=== PATIENT | female | born 1965 | race Caucasian/White ===

== ENCOUNTER 2021-09-24 16:04 | Observation (INO) | payer BC, MEDICARE ==
[2021-09-24] MEDS ORDERED: SODIUM CHLORIDE 0.9% 1,000 ML IV STA ×2 (17:41→19:52)
[2021-09-24] MEDS ORDERED: SODIUM CHLORIDE 0.9% 500 ML 500 ML IV STA (17:41)
[2021-09-24 18:38] LABS: Basophils % (A) 0 %; Eosinophils # (A) 0.1 k/uL (0-0.7); Eosinophils % (A) 2 %; HCT 40.6 % (34.0-46.0); HGB 12.8 gm/dL (11.4-16.0); Lymphocytes % (A) 15 %; MCH 30.7 pg (25.0-35.0); MCHC 31.5 g/dL (31.0-37.0); MCV 97.3 fL (80.0-100.0); Mean Platelet Volume 8.3; Monocytes # (A) 0.5 k/uL (0-1.0); Monocytes % (A) 7 %; Neutrophils # (A) 4.7 k/uL (1.3-7.7); Neutrophils % (A) 73 %; Platelet Count 224 k/uL (150-450); RBC 4.18 m/uL (3.80-5.40); RDW 13.2 % (11.5-15.5); WBC 6.5 k/uL (3.8-10.6)
[2021-09-24 18:50] LABS: Albumin 4.4 g/dL (3.5-5.0); Calcium 9.3 mg/dL (8.4-10.2); Magnesium 2.3 mg/dL (1.6-2.3); Potassium 3.6 mmol/L (3.5-5.1); Total Bilirubin 0.5 mg/dL (0.2-1.3); Total Protein 7.4 g/dL (6.3-8.2)
[2021-09-24 18:52] LABS: INR 0.9 (<1.2); Partial Thromboplastin Time 30.3 sec (22.0-30.0); Prothrombin Time 10.4 sec (9.0-12.0)
--- NOTE | 2021-09-24 19:04 | XR ---
EXAMINATION TYPE: XR chest 2V DATE OF EXAM: 09/24/2021 6:47 PM COMPARISON: None TECHNIQUE: XR chest 2V Frontal and lateral views of the chest. CLINICAL INDICATION:Female, 56 years old with history of syncope; FINDINGS: Lungs/Pleura: There is no evidence of pleural effusion, focal consolidation, or pneumothorax. Pulmonary vascularity: Unremarkable. Heart/mediastinum: Cardiomediastinal silhouette is unremarkable. There is mitral valve repair change s. Additionally there is loop recorder present. Single-lead device projects over the right atrium. Musculoskeletal: No acute osseous pathology. Other: Cholecystectomy clips are present. IMPRESSION: No acute cardiopulmonary disease/process.
[2021-09-24] MEDS ORDERED: HYDROmorphone 0.5 MG/0.5 ML SYRINGE IVP STA (19:37)
[2021-09-24] MEDS ORDERED: NALOXONE 0.4 MG/ML 1 ML VIAL IV PRN (19:52)
--- NOTE | 2021-09-24 20:19 | ED ---
General Adult HPI - General Chief complaint: Neuro Symptoms/Deficit Stated complaint: Syncope Time Seen by Provider: 09/24/21 17:25 Source: patient, RN notes reviewed, old records reviewed Mode of arrival: ambulatory Limitations: no limitations - History of Present Illness Initial comments: Patient is a 56-year-old female with past medical history remarkable for pseudoseizures, prior history of TBI, who recently was discharged from an outside hospital for treatment of a UTI no longer on antibiotics, who presents emergency department after being sent in from her PCP for a pseudoseizure as well as low blood pressure. Blood pressure was in the 90 systolic clear. She states she feels somewhat weak since discharge. Denies any fevers, chills, sick contacts, cough, chest pain, shortness of breath. Denies any abdominal pain, nausea, vomiting. States she feels like she does mention only has a pseudoseizure. States she is on Topamax 150 mg twice a day for that as well as Neurontin. Presents for further evaluation at this time. Has no other acute complaints at this time. - Related Data Allergies Allergy/AdvReac Type Severity Reaction Status Date / Time Unable to Assess Allergy Verified 09/24/21 16:15 Review of Systems ROS Statement: Those systems with pertinent positive or pertinent negative responses have been documented in the HPI. Review of Systems: CONST: Denies fever EYES: Denies blurry vision ENT: Denies nasal congestion C/V: Denies Chest pain RESP: Denies shortness of breath GI: Denies abdominal pain : Denies dysuria SKIN: Denies rash. MSK: Denies joint pain. NEURO: Denies headache ROS Other: All systems not noted in ROS Statement are negative. Past Medical History Past Medical History: Unable to Obtain History of Any Multi-Drug Resistant Organisms: None Reported Past Surgical History: Unable to Obtain Past Psychological History: No Psychological Hx Reported Smoking Status: Never smoker Past Alcohol Use History: None Reported Past Drug Use History: None Reported General Exam - General Exam Comments Initial Comments: General: Appears in no acute distress. HEAD: Normal with no signs of head trauma. EYES: PERRLA, EOMI, conjunctiva normal, no discharge. ENT: Hearing grossly intact, normal oropharynx. RESPIRATORY: Clear breath sounds bilaterally. No wheezes, rales, or rhonchi. C/V: Regular rate and rhythm. S1 and S2 auscultated, no edema, peripheral pulses 2+ and intact throughout ABD: Abd is soft, nontender, nondistended EXT: Normal range of motion, no obvious deformity SKIN: No rashes or lesions observed on exposed skin. NEURO: Alert and oriented x 4. Cranial nerves II-XII intact. No focal sensory or strength deficits. GCS of 15. NIH of 0. Limitations: no limitations Course Vital Signs 09/24/21 09/24/21 16:11 19:52 Temperature 98.4 F Pulse Rate 78 71 Respiratory 18 18 Rate Blood Pressure 128/50 106/66 O2 Sat by Pulse 98 100 Oximetry Medical Decision Making - Medical Decision Making The patient's presentation and physical exam, I'm concerned for suspected dehydration the patient. Cannot rule out infectious etiology at this time. We will obtain cardiac labs, chest x-ray. She will be given a fluid bolus. She was in agreement this plan. Chest x-ray showed no acute cardiopulmonary process. EKG showed an atrial paced rhythm which is chronic but otherwise no acute process. 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 Patient states she does have a history of mild CK D, with creatinine usually around 1.1. This is worse than her baseline. We have nothing for comparison. Troponin is undetectable. At this time, on reevaluation, she is feeling improved. He is endorsing generalized body pain is requesting a dose of Dilaudid which she'll be provided. I recommended admission for her RUBEN. She was in agreement this plan. Vital signs are within normal limits and stable. Urine is still pending at this time. She has no urinary complaints however. I spoke with the admitting team, Dr. Andino who is covering for Dr. paige. Patient was admitted in stable condition. We'll continue IV fluids. - Lab Data Result diagrams: 09/24/21 17:42 09/24/21 17:42 Lab Results 09/24/21 09/24/21 09/24/21 Range/Units 17:42 17:42 17:42 WBC 6.5 (3.8-10.6) k/uL RBC 4.18 (3.80-5.40) m/uL Hgb 12.8 (11.4-16.0) gm/dL Hct 40.6 (34.0-46.0) % MCV 97.3 (80.0-100.0) fL MCH 30.7 (25.0-35.0) pg MCHC 31.5 (31.0-37.0) g/dL RDW 13.2 (11.5-15.5) % Plt Count 224 (150-450) k/uL MPV 8.3 Neutrophils % 73 % Lymphocytes % 15 % Monocytes % 7 % Eosinophils % 2 % Basophils % 0 % Neutrophils # 4.7 (1.3-7.7) k/uL Lymphocytes # 1.0 (1.0-4.8) k/uL Monocytes # 0.5 (0-1.0) k/uL Eosinophils # 0.1 (0-0.7) k/uL Basophils # 0.0 (0-0.2) k/uL PT 10.4 (9.0-12.0) sec INR 0.9 (<1.2) APTT 30.3 H (22.0-30.0) sec Sodium 140 (137-145) mmol/L Potassium 3.6 (3.5-5.1) mmol/L Chloride 101 (98-107) mmol/L Carbon Dioxide 30 (22-30) mmol/L Anion Gap 9 mmol/L BUN 24 H (7-17) mg/dL Creatinine 1.71 H (0.52-1.04) mg/dL Est GFR (CKD-EPI)AfAm 38 (>60 ml/min/1.73 sqM) Est GFR (CKD-EPI)NonAf 33 (>60 ml/min/1.73 sqM) Glucose 92 (74-99) mg/dL Calcium 9.3 (8.4-10.2) mg/dL Magnesium 2.3 (1.6-2.3) mg/dL Total Bilirubin 0.5 (0.2-1.3) mg/dL AST 23 (14-36) U/L ALT 15 (4-34) U/L Alkaline Phosphatase 79 (38-126) U/L Troponin I (0.000-0.034) ng/mL Total Protein 7.4 (6.3-8.2) g/dL Albumin 4.4 (3.5-5.0) g/dL 09/24/21 Range/Units 17:42 WBC (3.8-10.6) k/uL RBC (3.80-5.40) m/uL Hgb (11.4-16.0) gm/dL Hct (34.0-46.0) % MCV (80.0-100.0) fL MCH (25.0-35.0) pg MCHC (31.0-37.0) g/dL RDW (11.5-15.5) % Plt Count (150-450) k/uL MPV Neutrophils % % Lymphocytes % % Monocytes % % Eosinophils % % Basophils % % Neutrophils # (1.3-7.7) k/uL Lymphocytes # (1.0-4.8) k/uL Monocytes # (0-1.0) k/uL Eosinophils # (0-0.7) k/uL Basophils # (0-0.2) k/uL PT (9.0-12.0) sec INR (<1.2) APTT (22.0-30.0) sec Sodium (137-145) mmol/L Potassium (3.5-5.1) mmol/L Chloride (98-107) mmol/L Carbon Dioxide (22-30) mmol/L Anion Gap mmol/L BUN (7-17) mg/dL Creatinine (0.52-1.04) mg/dL Est GFR (CKD-EPI)AfAm (>60 ml/min/1.73 sqM) Est GFR (CKD-EPI)NonAf (>60 ml/min/1.73 sqM) Glucose (74-99) mg/dL Calcium (8.4-10.2) mg/dL Magnesium (1.6-2.3) mg/dL Total Bilirubin (0.2-1.3) mg/dL AST (14-36) U/L ALT (4-34) U/L Alkaline Phosphatase (38-126) U/L Troponin I <0.012 (0.000-0.034) ng/mL Total Protein (6.3-8.2) g/dL Albumin (3.5-5.0) g/dL - EKG Data -: EKG Interpreted by Me EKG Comments: 12-lead Electrocardiogram Interpretation Note EKG was reviewed and interpreted by myself. 12-lead ECG performed at 1624 is interpreted by me as revealing atrial paced rhythm at a rate of 70 beats per min [id number]. [place] is normal. OH Intervals 167 ms, QRS duration is 84 ms, QTc is 440 ms.. There were no ST or T wave abnormalities to suggest myocardial ischemia or injury. R wave progression across the precordium was satisfactory. By my interpretation this EKG is non-diagnostic for acute ischemia. Disposition Clinical Impression: RUBEN (acute kidney injury), Dehydration Disposition: ADMITTED IP TO THIS HOSP Condition: Stable Referrals: Franklin Hassan MD [Primary Care Provider] - 1-2 days Time of Disposition: 19:45
[2021-09-24] MEDS: TOPIRAMATE 100 MG TAB PO SCH (22:34)
[2021-09-24 22:51] LABS: Glucose,Whole Blood 87 mg/dL (75-99)
[2021-09-24] MEDS ORDERED: LORazepam 2 MG/ML INJ IM STA (23:04)
[2021-09-24] MEDS ORDERED: LORazepam 2 MG/ML INJ IV STA (23:04)
--- NOTE | 2021-09-24 23:37 | P.EN ---
A team note Activated for seizure. Arrived at the scene at 2300. Discussed the case with the RN and reviewed the chart. The patient with a history of pseudoseizures and TBI was sent to the emergency room by her PCP due to hypotension and pseudoseizures. The patient was admitted for dehydration and acute kidney injury. Shortly after arrival on the floor, the patient began having what appeared to be tonic clonic seizures. She was given 2 mg of IV Ativan without relief. Upon arrival at the scene, the patient was initially noted to be shaking diffusely. As I approached the patient, she made eye contact and answered some questions as she continued to have shaking of all of her limbs. She then quickly (within 1 to 2 minutes) regained consciousness and sat up in bed and began answering questions appropriately. She repeatedly asked for IV Benadryl to raise her blood pressure under control her abdominal pain. 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 She reported multiple complaints including abdominal pain, migraine, diffuse body aches, chest discomfort, shortness of breath. Vital signs were reviewed with BP 104/65, pulse 92, SpO2 100% on room air. Physical examination after patient began answering questions appropriately: General: Nontoxic, in no acute distress, appears stated age, obese HEENT: NC/AT, anicteric sclerae, moist conjunctiva, no lid-lag, PERRLA Cardiovascular: S1/S2 wnl, no murmurs, rubs, or gallops Lungs: Clear to auscultation, normal respiratory effort, no accessory muscle use Abdominal: Soft, non-tender, non-distended, no guarding, rebound, or rigidity Skin: Warm, dry Extremities: No edema or contractures Psychiatric: Alert and oriented to person, place and time, appropriate affect Neuro: CN II-XII grossly intact, Strength 5/5 in all 4 extremities, Speech intact, Sensation to light touch grossly intact throughout Assessment/plan Suspected pseudoseizure -Continue with home antiepileptics Acute kidney injury -Management as per primary team
[2021-09-25 04:45] LABS: Appearance,Urine Clear (Clear); Bilirubin,Urine Negative (Negative); Blood,Urine Negative (Negative); Color,Urine Yellow; Glucose,Urine (UA) Negative (Negative); Ketones,Urine Negative (Negative); Leukocyte Esterase,Urine Negative (Negative); Nitrite,Urine Negative (Negative); Protein,Urine Negative (Negative); Specific Gravity,Urine 1.008 (1.001-1.035); Urobilinogen,Urine <2.0 mg/dL (<2.0)
[2021-09-25] MEDS: TOPIRAMATE 100 MG TAB PO SCH (08:31)
[2021-09-25 08:54] LABS: Basophils # (A) 0.02 X 10*3/uL (0.00-0.10); Basophils % (A) 0.4 %; Eosinophils # (A) 0.12 X 10*3/uL (0.04-0.35); Eosinophils % (A) 2.6 %; HCT 37.4 % (37.2-46.3); Immature Grans, Automated 0.4 %; Lymphocytes % (A) 17.2 %; MCH 30.8 pg (27.0-32.0); MCHC 32.1 g/dL (32.0-37.0); MCV 96.1 fL (80.0-97.0); Mean Platelet Volume 10.6 fL (9.5-12.2); Monocytes # (A) 0.55 X 10*3/uL (0.20-1.00); Monocytes % (A) 11.8 %; NRBC Per 100 WBC 0 /100 WBCS (0.0-0.0); Neutrophils # (A) 3.15 X 10*3/uL (1.80-7.70); Neutrophils % (A) 67.6 %; Platelet Count 182 X 10*3/uL (140-440); RBC 3.89 X 10*6/uL (4.10-5.20); RDW 13.1 % (11.5-14.5); WBC 4.66 X 10*3/uL (4.50-10.00)
[2021-09-25] MEDS ORDERED: TOPIRAMATE 25 MG TAB PO SCH (09:15)
[2021-09-25 09:52] LABS: African American GFR (CKD) 58.1 (60.0-200.0); Anion Gap 11.9 mmol/L (10.00-18.00); BUN/Creat Ratio 15.5 Ratio (12.00-20.00); Blood Urea Nitrogen 18.6 mg/dL (9.0-27.0); Calcium 8.8 mg/dL (8.7-10.3); Carbon Dioxide 23.1 mmol/L (20.0-27.5); Non-African American GFR(CKD) 50.1 (60.0-200.0)
[2021-09-25] MEDS ORDERED: diphenhydrAMINE 50 MG CAP PO PRN (10:22)
[2021-09-25] MEDS ORDERED: tiZANidine 4 MG TAB PO PRN (10:22)
[2021-09-25] MEDS ORDERED: GABAPENTIN 300 MG CAP PO PRN (10:22)
[2021-09-25] MEDS ORDERED: Ubrogepant [Ubrelvy] 100 MG Tablet PO PRN (10:22)
[2021-09-25] MEDS ORDERED: CHOLESTYRAMINE (WITH SUGAR) 4 GM PACKET PO PRN (10:22)
[2021-09-25] MEDS ORDERED: HYDROcodone/APAP 5-325MG 1 EACH TAB PO PRN (10:22)
[2021-09-25] MEDS ORDERED: DICLOFENAC SODIUM GEL 100 GM TUBE TOPICAL PRN (10:22)
--- NOTE | 2021-09-25 10:23 | P.CNNES ---
History of Present Illness Consult date: 09/25/21 Requesting physician: Doris Andino Reason for Consult: seizure-activity History of Present Illness: This is a 56-year-old woman with history of traumatic brain injury (2007), pseudoseizures since TBI, migraine, lupus, pyoderma gangrenosum, chronic low back pain s/p 3 surgeries, peripheral neuropathy who presented to our emergency department on 09/24/2021 by her primary care physician for episode of seizure- like activity as well as low blood pressure according to the ED team. It seems that her blood pressure was in the 90s systolic. Patient was recently hospitalized at outside facility for UTI. Patient is on Topamax 150 mg 1 tablet twice a day. Patient is also on gabapentin. Yesterday and "A-team" seeing the patient at 2300 because of the seizure on the floor and appeared to have tonic-clonic seizure. She was given 2 mg Ativan without relief. Per the notes upon the physician on arrival to the scene pat ganeshnt was initially noted to be as shaking diffusely she made eye contact and answers some questions and continue to have shaking of all limbs then within 1-2 minutes to regain consciousness and sat up in bed and began answering questions appropriately. Of note the patient moved from a [facility] to the [place] in April 2021 and was follow-up with a neurologist in [place] but in the process of seeing a neurologist in [place], [place]. According to patient she's been having seizures since 2007 and the she describes him as prior to the episode she would have an aura of having her vision feels its become noted tunnel and should have ear ringing and she would shake and sometimes she'll lose consciousness and sometimes not and sometimes she'll have urinary incontinence and sometimes not. She denies of any tongue bite or bowel incontinence. She says that the these episodes vary in duration as well as frequency but she is becoming more frequent in the last 1 week. She said that she had extensive work up in the past and she was evaluated at [facility] and she had the long-term EEG as well as had multiple EEGs by her neurologist and everything got pointed at dad to the pseudoseizures. She also had multiple imaging in the past and there are negative. She is currently on Topamax 150 mg 1 tablet twice a day. She was on Keppra in the past as well as Depakote but has side effects. Some other workup in the hospital during this hospital visit consisted of: Patient is afebrile. Her blood pressure got as low as 81/57. CBC with differential is unremarkable Chemistry panel is the creatinine is 1.71 and that a BUN is 24 otherwise rest of chemistry panel is unremarkable Urinalysis is negative for urinary tract infection Review of Systems Review of system: The 12 point system was reviewed and apparent positive and negative per HPI. Past Medical History Past Medical History: Unable to Obtain Additional Past Medical History / Comment(s): Lupus, Pyoderma Gangrenosum History of Any Multi-Drug Resistant Organisms: None Reported Past Surgical History: Back Surgery, Breast Surgery, Section, Cholecystectomy, Hysterectomy Past Psychological History: No Psychological Hx Reported Smoking Status: Never smoker Past Alcohol Use History: None Reported Past Drug Use History: None Reported Medications and Allergies Home Medications Medication Instructions Recorded Confirmed Type Apixaban [Eliquis] 5 mg PO BID 09/24/21 09/24/21 History Atorvastatin [Lipitor] 40 mg PO HS 09/24/21 09/24/21 History Bumetanide [BUMEX] 2 mg PO BID 09/24/21 09/24/21 History Cetirizine HCl 10 mg PO DAILY 09/24/21 09/24/21 History Cholestyramine (with Sugar) 4 gm PO DAILY PRN 09/24/21 09/24/21 History [Cholestyramine Packet] Diclofenac Sodium Gel [Voltaren 1 applic TOPICAL QID PRN 09/24/21 09/24/21 History Gel] Diphenhydramine 50mg/Ml Vial 50 mg INJ Q6H PRN 09/24/21 09/24/21 History Doxycycline Hyclate 100 mg PO BID 09/24/21 09/24/21 History Fludrocortisone [Florinef] 0.1 mg PO DAILY 09/24/21 09/24/21 History Gabapentin 300 - 600 mg PO TID PRN 09/24/21 09/24/21 History HYDROcodone/APAP 5-325MG [Reagan 1 tab PO Q8H PRN 09/24/21 09/24/21 History 5-325] Pantoprazole [Protonix] 40 mg PO BID 09/24/21 09/24/21 History Potassium Chloride ER [K-Dur 20] 60 meq PO BID 09/24/21 09/24/21 History Sertraline [Zoloft] 200 mg PO DAILY 09/24/21 09/24/21 History Sucralfate 1 gm PO Q6H 09/24/21 09/24/21 History Topiramate [Topamax] 150 mg PO BID 09/24/21 09/24/21 History Ubrogepant [Ubrelvy] 100 mg PO DIRECTED PRN 09/24/21 09/24/21 History busPIRone HCl [Buspar] 10 mg PO BID 09/24/21 09/24/21 History diphenhydrAMINE [Benadryl] 50 mg PO Q6H PRN 09/24/21 09/24/21 History rOPINIRole HCL [Requip] 2 mg PO HS 09/24/21 09/24/21 History tiZANidine [Zanaflex] 2 mg PO Q6H PRN 09/24/21 09/24/21 History Allergies Allergy/AdvReac Type Severity Reaction Status Date / Time Penicillins Allergy Severe Anaphylaxis Verified 09/24/21 20:30 vancomycin Allergy Severe Swelling Verified 09/24/21 20:30 in lips latex Allergy Verified 09/24/21 20:30 morphine Allergy Verified 09/24/21 20:30 prochlorperazine Allergy Verified 09/24/21 20:30 [From Compazine] metoclopramide [From Reglan] AdvReac Verified 09/24/21 20:30 Physical Examination - Vital Signs Vital Signs: Vital Signs Temp Pulse Pulse Resp BP BP Pulse Ox 09/25/21 08:42 97.9 F 68 12 124/77 100 09/25/21 00:14 98.1 F 70 16 81/57 98 09/24/21 21:50 97.9 F 73 18 95/63 98 09/24/21 20:28 71 18 94/67 95 09/24/21 19:52 71 18 106/66 100 09/24/21 16:11 98.4 F 78 18 128/50 98 Intake and Output 09/24/21 09/25/21 09/25/21 22:59 06:59 14:59 Other: # Voids 1 1 Weight 99.79 kg 99.79 kg GENERAL: The patient is lying in bed and is not in acute distress. CHEST: The heart rate is regular rate rhythm. No murmurs to auscultation. LUNG: Clear to auscultation bilaterally no wheezing noted throughout. Not labored breathing. ABDOMEN/GI: Bowel sounds present in all 4 quadrants. No tenderness to palpation throughout. NEUROLOGICAL: Higher mental function: The patient is awake, alert, oriented to self, place and time. Slightly mildly slow in responding. Patient is following commands. No aphasia and no neglect. Cranial nerves: The pupils are round, equal and reactive to light and accommodation. Visual pierce are full to confrontation throughout. Extraocular movement is intact no nystagmus is noted. Facial sensation is normal to touch throughout. The facial strength is normal throughout. Hearing is normal bila terally to hand rub. Tongue is midline and moved [id number] without any difficulty. No dysarthria is noted. Shoulder shrug is normal bilaterally. Motor: The strength is 5 over 5 throughout. Normal tone and bulk. Cerebellum: Normal finger to nose bilaterally. Sensation: Sensation is normal to touch throughout. Reflexes (right/left): 1+ throughout. Plantars are downgoing bilaterally. Results - Laboratory Findings CBC and BMP: 09/25/21 06:01 09/25/21 06:01 Abnormal Lab Findings: Abnormal Labs 09/24/21 09/24/21 17:42 17:42 APTT 30.3 H BUN 24 H Creatinine 1.71 H Assessment and Plan Assessment: Breakthrough seizures and the seizures are reported to be nonepileptic (has history of pseudoseizure/non-epileptic seizure) History of pseudo-seizures/nonepileptic seizures since TBI (had extensive testing as outpatient and was evaluated at [facility] and had multiple EEGs and imaging as outpatient and according to patient was told had pseudoseizures) History of traumatic brain injury in 2007 Migraine Recent urinary tract infection History of lupus History of pyoderma gangrenosum History of chronic back pain status post 3 surgery Peripheral neuropathy Plan: Patient refused CT of the head or any imaging to the brain as well as a routine EEG. She said that she had extensive testing in the past and everything is been negative. I recommend consideration of ambulatory or a repeat EMU (epilepsy monitoring unit) as outpatient if patient has not to evaluate if no true epileptic episode s. On Topamax 150mg 1 tab bid. I will increase to 175mg bid. She was notified to assess if any help as outpatient and in a week can go up to 200mg bid that might help her episodes. Continue neuro checks On seizure precautions and seizure pads We'll defer the rest of the medical management to the primary team Per the [place] and [facility] the patient the was to avoid driving for 6 month until no further seizures, avoid heights, avoid the swimming unassisted and using heavy machinery. Patient need to follow-up with a neurologist as outpatient within 1-2 weeks. The plan is discussed with patient and her nurse. Thank you for the consultation. There is no further neurological work-up. Patient is clear for discharge. Lefty Zhu M.D. Neuro-Hospitalist Time with Patient: Greater than 30
[2021-09-25] MEDS ORDERED: LORATADINE 10 MG TAB PO SCH (10:30)
[2021-09-25] MEDS ORDERED: SUCRALFATE 1 GM TAB PO SCH (10:30)
[2021-09-25] MEDS ORDERED: FLUDROCORTISONE 0.1 MG TAB PO SCH (10:30)
[2021-09-25] MEDS ORDERED: busPIRone HCl 10 MG TAB PO SCH (10:30)
[2021-09-25] MEDS ORDERED: PANTOPRAZOLE 40 MG TABLET PO SCH (10:30)
[2021-09-25] MEDS ORDERED: TOPIRAMATE 100 MG TAB PO SCH (10:30)
[2021-09-25] MEDS ORDERED: SERTRALINE 100 MG TAB PO SCH (10:30)
--- NOTE | 2021-09-25 13:01 | US ---
EXAMINATION TYPE: US carotid duplex BILAT DATE OF EXAM: 09/25/2021 COMPARISON: NONE CLINICAL HISTORY: stroke. CVA. Exam done portable EXAM MEASUREMENTS: RIGHT: Peak Systolic Velocity (PSV) cm/sec ----- Right CCA: 60.4 ----- Right ICA: 64.2 ----- Right ECA: 97.5 ICA/CCA ratio: 1.1 RIGHT: End Diastole cm/sec ----- Right CCA: 18.2 ----- Right ICA: 30.3 ----- Right ECA: 16.2 LEFT: Peak Systolic Velocity (PSV) cm/sec ----- Left CCA: 60.4 ----- Left ICA: 67.2 ----- Left ECA: 90.5 ICA/CCA ratio: 1.1 LEFT: End Diastole cm/sec ----- Left CCA: 17.4 ----- Left ICA: 24.8 ----- Left ECA: 10.6 VERTEBRALS (direction of flow): Right Vertebral: Antegrade Left Vertebral: Antegrade Rhythm: Normal No significant stenosis Grayscale images show no significant focal plaque at carotid bulb level. IMPRESSION: No hemodynamically significant stenosis identified in either internal carotid artery. Criteria for Assigning % of Stenosis / Diameter reduction (Estimation based on the indirect measurements of the internal carotid artery velocities (ICA PSV). 1. Normal (no stenosis)=ICA PSV < 125 cm/s: ratio < 2.0: ICA EDV<40 cm/s. 2. Less than 50% stenosis=ICA PSV < 125 cm/s: ratio < 2.0: ICA EDV<40 cm/s. 3. 50 to 69% stenosis=ICA PSV of 125 to 230 cm/s: ration 2.0 ? 4.0: ICA EDV 40-100 cm/s. 4. Greater than 70% stenosis to near occlusion= ICA PSV > 230 cm/s: ratio > 4.0: ICA EDV > 100 cm/s. 5. Near occlusion= ICA PSV velocities may be low or undetectable: variable ratio and ICA EDV. 6. Total occlusion=unable to detect flow.
[2021-09-25 13:34] VITALS: BP 116/75; PULSE 70; RESP 14; TEMP 98.6
[2021-09-25] MEDS ORDERED: ATORVASTATIN 40 MG TAB PO SCH (21:00)
--- NOTE | 2021-09-26 20:13 | P.HPIM ---
History of Present Illness H&P Date: 09/25/21 Chief Complaint: Syncope 56-year-old female with past medical history remarkable for pseudoseizures, prior history of TBI, who recently was discharged from an outside hospital for treatment of a UTI no longer on antibiotics, who presents emergency department after being sent in from her PCP for a pseudoseizure as well as low blood pressure. Blood pressure was in the 90 systolic clear. She states she feels somewhat weak since discharge. Denies any fevers, chills, sick contacts, cough, chest pain, shortness of breath. Denies any abdominal pain, nausea, vomiting. States she feels like she does mention only has a pseudoseizure. States she is on Topamax 150 mg twice a day for that as well as Neurontin. Presents for further evaluation at this time. Has no other acute complaints at this time. According to patient she's been having seizures since 2007 and the she describes him as prior to the episode she would have an aura of having her vision feels its become noted tunnel and should have ear ringing and she would shake and sometimes she'll lose consciousness and sometimes not and sometimes she'll have urinary incontinence and sometimes not. She denies of any tongue bite or bowel incontinence. She says that the these episodes vary in duration as well as frequency but she is becoming more frequent in the last 1 week. She said that she had extensive work up in the past and she was evaluated at [facility] and she had the long-term EEG as well as had multiple EEGs by her neurologist and everything got pointed at dad to the pseudoseizures. She also had multiple imaging in the past and there are negative. She is currently on Topamax 150 mg 1 tablet twice a day. She was on Keppra in the past as well as Depakote but has side effects. Some other workup in the hospital during this hospital visit consisted of: Patient is afebrile. Her blood pressure got as low as 81/57. CBC with differential is unremarkable Chemistry panel is the creatinine is 1.71 and that a BUN is 24 otherwise rest of chemistry panel is unremarkable Urinalysis is negative for urinary tract infection Review of Systems REVIEW OF SYSTEMS: CONSTITUTIONAL: No fever, no malaise, no fatigue. HEENT: No recent visual problems or hearing problems. Denied any sore throat. CARDIOVASCULAR: No chest pain, orthopnea, PND, no palpitations, no syncope. PULMONARY: No shortness of breath, no cough, no hemoptysis. GASTROINTESTINAL: No diarrhea, no nausea, no vomiting, no abdominal pain. NEUROLOGICAL: No headaches, no weakness, no numbness. HEMATOLOGICAL: Denies any bleeding or petechiae. GENITOURINARY: Denies any burning micturition, frequency, or urgency. MUSCULOSKELETAL/RHEUMATOLOGICAL: Denies any joint pain, swelling, or any muscle pain. ENDOCRINE: Denies any polyuria or polydipsia. The rest of the 14-point review of systems is negative. Past Medical History Past Medical History: Unable to Obtain Additional Past Medical History / Comment(s): Lupus, Pyoderma Gangrenosum History of Any Multi-Drug Resistant Organisms: None Reported Past Surgical History: Back Surgery, Breast Surgery, Section, Cholecystectomy, Hysterectomy Past Psychological History: No Psychological Hx Reported Smoking Status: Never smoker Past Alcohol Use History: None Reported Past Drug Use History: None Reported Medications and Allergies Home Medications Medication Instructions Recorded Confirmed Type Apixaban [Eliquis] 5 mg PO BID 09/24/21 09/24/21 History Atorvastatin [Lipitor] 40 mg PO HS 09/24/21 09/24/21 History Bumetanide [BUMEX] 2 mg PO BID 09/24/21 09/24/21 History Cetirizine HCl 10 mg PO DAILY 09/24/21 09/24/21 History Cholestyramine (with Sugar) 4 gm PO DAILY PRN 09/24/21 09/24/21 History [Cholestyramine Packet] Diclofenac Sodium Gel [Voltaren 1 applic TOPICAL QID PRN 09/24/21 09/24/21 History Gel] Diphenhydramine 50mg/Ml Vial 50 mg INJ Q6H PRN 09/24/21 09/24/21 History Doxycycline Hyclate 100 mg PO BID 09/24/21 09/24/21 History Fludrocortisone [Florinef] 0.1 mg PO DAILY 09/24/21 09/24/21 History Gabapentin 300 - 600 mg PO TID PRN 09/24/21 09/24/21 History HYDROcodone/APAP 5-325MG [[place] 1 tab PO Q8H PRN 09/24/21 09/24/21 History 5-325] Pantoprazole [Protonix] 40 mg PO BID 09/24/21 09/24/21 History Potassium Chloride ER [K-Dur 20] 60 meq PO BID 09/24/21 09/24/21 History Sertraline [Zoloft] 200 mg PO DAILY 09/24/21 09/24/21 History Sucralfate 1 gm PO Q6H 09/24/21 09/24/21 History Ubrogepant [Ubrelvy] 100 mg PO DIRECTED PRN 09/24/21 09/24/21 History busPIRone HCl [Buspar] 10 mg PO BID 09/24/21 09/24/21 History diphenhydrAMINE [Benadryl] 50 mg PO Q6H PRN 09/24/21 09/24/21 History rOPINIRole HCL [Requip] 2 mg PO HS 09/24/21 09/24/21 History tiZANidine [Zanaflex] 2 mg PO Q6H PRN 09/24/21 09/24/21 History Topiramate [Topamax] 25 mg PO BID 30 Days #60 tab 09/25/21 Rx Topiramate [Topamax] 150 mg PO BID 30 Days #60 tab 09/25/21 Rx Allergies Allergy/AdvReac Type Severity Reaction Status Date / Time Penicillins Allergy Severe Anaphylaxis Verified 09/24/21 20:30 vancomycin Allergy Severe Swelling Verified 09/24/21 20:30 in lips latex Allergy Verified 09/24/21 20:30 morphine Allergy Verified 09/24/21 20:30 prochlorperazine Allergy Verified 09/24/21 20:30 [From Compazine] metoclopramide [From Reglan] AdvReac Verified 09/24/21 20:30 Physical Exam Vitals: Vital Signs Temp Pulse Pulse Resp BP BP Pulse Ox 09/25/21 08:42 97.9 F 68 12 124/77 100 09/25/21 00:14 98.1 F 70 16 81/57 98 09/24/21 21:50 97.9 F 73 18 95/63 98 09/24/21 20:28 71 18 94/67 95 09/24/21 19:52 71 18 106/66 100 09/24/21 16:11 98.4 F 78 18 128/50 98 Intake and Output 09/24/21 09/25/21 09/25/21 22:59 06:59 14:59 Intake Total 118 Balance 118 Intake: Oral 118 Other: Voiding Method Toilet # Voids 1 1 Weight 99.79 kg 99.79 kg PHYSICAL EXAMINATION: GENERAL: The patient is alert and oriented x3, not in any acute distress. Well developed, well nourished. HEENT: Pupils are round and equally reacting to light. EOMI. No scleral icterus. No conjunctival pallor. Normocephalic, atraumatic. No pharyngeal erythema. No thyromegaly. CARDIOVASCULAR: S1 and S2 present. No murmurs, rubs, or gallops. PULMONARY: Chest is clear to auscultation, no wheezing or crackles. ABDOMEN: Soft, nontender, nondistended, normoactive bowel sounds. No palpable organomegaly. MUSCULOSKELETAL: No joint swelling or deformity. EXTREMITIES: No cyanosis, clubbing, or pedal edema. NEUROLOGICAL: Gross neurological examination did not reveal any focal deficits. SKIN: No rashes. Results CBC & Chem 7: 09/25/21 06:01 09/25/21 06:01 Labs: Abnormal Lab Results - Last 24 Hours (Table) 09/24/21 09/24/21 09/25/21 Range/Units 17:42 17:42 06:01 RBC 3.89 L (4.10-5.20) X 10*6/uL Lymphocytes # 0.80 L (0.90-5.00) X 10*3/uL APTT 30.3 H (22.0-30.0) sec BUN 24 H (7-17) mg/dL Creatinine 1.71 H (0.52-1.04) mg/dL Est GFR (CKD-EPI)AfAm (60.0-200.0) Est GFR (CKD-EPI)NonAf (60.0-200.0) 09/25/21 Range/Units 06:01 RBC (4.10-5.20) X 10*6/uL Lymphocytes # (0.90-5.00) X 10*3/uL APTT (22.0-30.0) sec BUN (7-17) mg/dL Creatinine (0.52-1.04) mg/dL Est GFR (CKD-EPI)AfAm 58.1 L (60.0-200.0) Est GFR (CKD-EPI)NonAf 50.1 L (60.0-200.0) Assessment and Plan Assessment: 1. Breakthrough seizures; patient does have history of pseudoseizures 2. History of pseudoseizures since TBI; had extensive testing as outpatient and was evaluated at [facility] and had multiple EEGs and imaging as outpatient and according to patient was told had pseudoseizures) History of traumatic brain injury in 2007 3. Migraine; stable 4. Recent urinary tract infection; clinically resolved 5. History of lupus 6. History of pyoderma gangrenosum 7. History of chronic back pain status post 3 surgery 8. Peripheral neuropathy Patient refused CT of the head or any imaging to the brain as well as a routine EEG. She said that she had extensive testing in the past and everything is been negative. I recommend consideration of ambulatory or a repeat EMU (epilepsy monitoring unit) as outpatient if patient has not to evaluate if no true epileptic episodes. On Topamax 150mg 1 tab bid. I will increase to 175mg bid. She was notified to assess if any help as outpatient and in a week can go up to 200mg bid that might help her episodes. Continue neuro checks On seizure precautions and seizure pads We'll defer the rest of the medical management to the primary team Per the [place] and [facility] the patient the was to avoid driving for 6 month until no further seizures, avoid heights, avoid the swimming unassisted and using heavy machinery. Patient need to follow-up with a neurologist as outpatient within 1-2 weeks.
--- NOTE | 2021-09-26 20:14 | P.DS ---
Providers Date of admission: 09/24/21 19:52 Expected date of discharge: 09/25/21 Attending physician: Doris Andino MD Consults: 09/24/21 23:36 Consult Physician Routine Consulting Provider: Lefty Zhu Consult Reason/Comments: Seizure Activity Do you want consulting provider notified?: Yes, Notify in am [facility]: 56-year-old female with past medical history remarkable for pseudoseizures, prior history of TBI, who recently was discharged from an outside hospital for treatment of a UTI no longer on antibiotics, who presents emergency department after being sent in from her PCP for a pseudoseizure as well as low blood pressure. Blood pressure was in the 90 systolic clear. She states she feels somewhat weak since discharge. Denies any fevers, chills, sick contacts, cough, chest pain, shortness of breath. Denies any abdominal pain, nausea, vomiting. States she feels like she does mention only has a pseudoseizure. States she is on Topamax 150 mg twice a day for that as well as Neurontin. Presents for further evaluation at this time. Has no other acute complaints at this time. According to patient she's been having seizures since 2007 and the she describes him as prior to the episode she would have an aura of having her vision feels its become noted tunnel and should have ear ringing and she would shake and s ometimes she'll lose consciousness and sometimes not and sometimes she'll have urinary incontinence and sometimes not. She denies of any tongue bite or bowel incontinence. She says that the these episodes vary in duration as well as frequency but she is becoming more frequent in the last 1 week. She said that she had extensive work up in the past and she was evaluated at [facility] and she had the long-term EEG as well as had multiple EEGs by her neurologist and everything got pointed at dad to the pseudoseizures. She also had multiple imaging in the past and there are negative. She is currently on Topamax 150 mg 1 tablet twice a day. She was on Keppra in the past as well as Depakote but has side effects. Some other workup in the hospital during this hospital visit consisted of: Patient is afebrile. Her blood pressure got as low as 81/57. CBC with differential is unremarkable Chemistry panel is the creatinine is 1.71 and that a BUN is 24 otherwise rest of chemistry panel is unremarkable Urinalysis is negative for urinary tract infection 1. Breakthrough seizures; patient does have history of pseudoseizures 2. History of pseudoseizures since TBI; had extensive testing as outpatient and was evaluated at [facility] and had multiple EEGs and imaging as outpatient and according to patient was told had pseudoseizures) History of traumatic brain injury in 2007 3. Migraine; stable 4. Recent urinary tract infection; clinically resolved 5. History of lupus 6. History of pyoderma gangrenosum 7. History of chronic back pain status post 3 surgery 8. Peripheral neuropathy Patient refused CT of the head or any imaging to the brain as well as a routine EEG. She said that she had extensive testing in the past and everything is been negative. I recommend consideration of ambulatory or a repeat EMU (epilepsy monitoring unit) as outpatient if patient has not to evaluate if no true epileptic episodes. On Topamax 150mg 1 tab bid. I will increase to 175mg bid. She was notified to assess if any help as outpatient and in a week can go up to 200mg bid that might help her episodes. Continue neuro checks On seizure precautions and seizure pads We'll defer the rest of the medical management to the primary team Per the [place] and [facility] the patient the was to avoid driving for 6 month until no further seizures, avoid heights, avoid the swimming unassisted and using heavy machinery. Patient need to follow-up with a neurologist as outpatient within 1-2 weeks. Patient Condition at Discharge: Stable Plan - Discharge Summary New Discharge Prescriptions: New Topiramate [Topamax] 25 mg PO BID 30 Days #60 tab Topiramate [Topamax] 150 mg PO BID 30 Days #60 tab Continue tiZANidine [Zanaflex] 2 mg PO Q6H PRN PRN Reason: Muscle Pain Sucralfate 1 gm PO Q6H Potassium Chloride ER [K-Dur 20] 60 meq PO BID HYDROcodone/APAP 5-325MG [[place] 5-325] 1 tab PO Q8H PRN PRN Reason: Pain Fludrocortisone [Florinef] 0.1 mg PO DAILY Doxycycline Hyclate 100 mg PO BID Diclofenac Sodium Gel [Voltaren Gel] 1 applic TOPICAL QID PRN PRN Reason: Pain Cetirizine HCl 10 mg PO DAILY diphenhydrAMINE [Benadryl] 50 mg PO Q6H PRN PRN Reason: Migraine Headache rOPINIRole HCL [Requip] 2 mg PO HS Sertraline [Zoloft] 200 mg PO DAILY Pantoprazole [Protonix] 40 mg PO BID Gabapentin 300 - 600 mg PO TID PRN PRN Reason: nerve pain Apixaban [Eliquis] 5 mg PO BID Diphenhydramine 50mg/Ml Vial 50 mg INJ Q6H PRN PRN Reason: Migraine Headache Cholestyramine (with Sugar) [Cholestyramine Packet] 4 gm PO DAILY PRN PRN Reason: Diarrhea busPIRone HCl [Buspar] 10 mg PO BID Bumetanide [BUMEX] 2 mg PO BID Atorvastatin [Lipitor] 40 mg PO HS Ubrogepant [Ubrelvy] 100 mg PO DIRECTED PRN PRN Reason: Migraine Headache Discontinued Topiramate [Topamax] 150 mg PO BID Discharge Medication List Apixaban [Eliquis] 5 mg PO BID 09/24/21 [History] Atorvastatin [Lipitor] 40 mg PO HS 09/24/21 [History] Bumetanide [BUMEX] 2 mg PO BID 09/24/21 [History] Cetirizine HCl 10 mg PO DAILY 09/24/21 [History] Cholestyramine (with Sugar) [Cholestyramine Packet] 4 gm PO DAILY PRN 09/24/21 [History] Diclofenac Sodium Gel [Voltaren Gel] 1 applic TOPICAL QID PRN 09/24/21 [History] Diphenhydramine 50mg/Ml Vial 50 mg INJ Q6H PRN 09/24/21 [History] Doxycycline Hyclate 100 mg PO BID 09/24/21 [History] Fludrocortisone [Florinef] 0.1 mg PO DAILY 09/24/21 [History] Gabapentin 300 - 600 mg PO TID PRN 09/24/21 [History] HYDROcodone/APAP 5-325MG [[place] 5-325] 1 tab PO Q8H PRN 09/24/21 [History] Pantoprazole [Protonix] 40 mg PO BID 09/24/21 [History] Potassium Chloride ER [K-Dur 20] 60 meq PO BID 09/24/21 [History] Sertraline [Zoloft] 200 mg PO DAILY 09/24/21 [History] Sucralfate 1 gm PO Q6H 09/24/21 [History] Ubrogepant [Ubrelvy] 100 mg PO DIRECTED PRN 09/24/21 [History] busPIRone HCl [Buspar] 10 mg PO BID 09/24/21 [History] diphenhydrAMINE [Benadryl] 50 mg PO Q6H PRN 09/24/21 [History] rOPINIRole HCL [Requip] 2 mg PO HS 09/24/21 [History] tiZANidine [Zanaflex] 2 mg PO Q6H PRN 09/24/21 [History] Topiramate [Topamax] 25 mg PO BID 30 Days #60 tab 09/25/21 [Rx] Topiramate [Topamax] 150 mg PO BID 30 Days #60 tab 09/25/21 [Rx] Follow up Appointment(s)/Referral(s): Franklin Hassan MD [Primary Care Provider] - 1-2 days Patient Instructions/Handouts: Acute Kidney Injury (DC) Discharge Disposition: HOME SELF-CARE
== END 2021-09-25 15:15 | disposition home or self-care (01) ==
LOC: EC 16:04 → 6NMEDSUR 19:52
PROVIDERS: ADMIT Internal Medicine; ATTEND Internal Medicine
DX: R56.9 Unspecified convulsions (principal); G43.909 Migraine, unspecified, not intractable, without status migrainosus; I95.9 Hypotension, unspecified; Z87.440 Personal history of urinary (tract) infections; Z87.820 Personal history of traumatic brain injury; E86.0 Dehydration; N17.9 Acute kidney failure, unspecified; L88 Pyoderma gangrenosum; G89.29 Other chronic pain; M54.50 Low back pain, unspecified; G62.9 Polyneuropathy, unspecified; Z91.19 Patient's noncompliance with other medical treatment and regimen; Z53.20 Procedure and treatment not carried out because of patient's decision for unspecified reasons; R10.9 Unspecified abdominal pain; R07.89 Other chest pain; E66.9 Obesity, unspecified; Z68.34 Body mass index [BMI] 34.0-34.9, adult; Z79.899 Other long term (current) drug therapy; Z98.890 Other specified postprocedural states; Z90.49 Acquired absence of other specified parts of digestive tract; Z90.710 Acquired absence of both cervix and uterus; Z79.01 Long term (current) use of anticoagulants; Z79.52 Long term (current) use of systemic steroids; Z79.2 Long term (current) use of antibiotics; Z88.0 Allergy status to penicillin; Z88.5 Allergy status to narcotic agent; Z88.1 Allergy status to other antibiotic agents; Z91.040 Latex allergy status; Z88.8 Allergy status to other drugs, medicaments and biological substances
CPT/HCPCS: 96361 ×2; 96375; 96374; 99285; 36415; 93005; 80053; 80048; 83735; 84484; 85025 ×2; 85610; 85730; 81003; 71046; 93880; G0378 ×2; J2060; J1170

== ENCOUNTER 2022-03-16 19:00 | Inpatient (IN) | payer BC, MEDICARE ==
[2022-03-16] MEDS ORDERED: SODIUM CHLORIDE 0.9% 500 ML 500 ML IV STA (19:29)
--- NOTE | 2022-03-16 19:58 | ED ---
General Adult HPI - General Chief complaint: Recheck/Abnormal Lab/Rx Stated complaint: Abnormal Labs, Sent by PCP Time Seen by Provider: 03/16/22 19:20 Source: patient Mode of arrival: ambulatory Limitations: no limitations - History of Present Illness Initial comments: Patient is a 56-year-old female with history of lupus presenting for evaluation of hypokalemia. Patient states that she was given a prescription by her PCP for lab work at [facility], she was called by her PCP this afternoon stating that she had potassium of 2.3 lymphs instructed to report to the ER. Patient states that she has been feeling unwell, she has been very dizzy, nauseous, admits to some chest pain and difficulty breathing, and a flareup of her lupus pain. Due to the patient's discomfort she is somewhat difficult to obtain history from. She admits to headache consistent with her typical migraines. She denies abdominal pain, vomiting, focal weakness, numbness, tingling, palpitations. - Related Data Home Medications Medication Instructions Recorded Confirmed Apixaban [Eliquis] 5 mg PO DIRECTED 09/24/21 03/16/22 Atorvastatin [Lipitor] 40 mg PO HS 09/24/21 03/16/22 Bumetanide [BUMEX] 2 mg PO BID 09/24/21 03/16/22 Cetirizine HCl 10 mg PO DAILY 09/24/21 03/16/22 Cholestyramine (with Sugar) 4 gm PO DAILY PRN 09/24/21 03/16/22 [Cholestyramine Packet] Diphenhydramine 50mg/Ml Vial 50 mg INJ Q6H PRN 09/24/21 03/16/22 Fludrocortisone [Florinef] 0.1 mg PO DAILY 09/24/21 03/16/22 Gabapentin 300 mg PO TID 09/24/21 03/16/22 Potassium Chloride ER [K-Dur 20] 40 meq PO BID 09/24/21 03/16/22 Sertraline [Zoloft] 200 mg PO DAILY 09/24/21 03/16/22 Sucralfate 1 gm PO AC-TID 09/24/21 03/16/22 Ubrogepant [Ubrelvy] 100 mg PO BID PRN 09/24/21 03/16/22 busPIRone HCl [Buspar] 10 mg PO BID 09/24/21 03/16/22 rOPINIRole HCL [Requip] 2 mg PO HS 09/24/21 03/16/22 Budesonide/Glycopyr/Formoterol 1 puff INHALATION RT-BID 03/16/22 03/16/22 [Breztri Aerosphere Inhaler] Enoxaparin [Lovenox] 40 mg SQ Q12H 03/16/22 03/16/22 Esomeprazole Magnesium [NexIUM] 40 mg PO DAILY 03/16/22 03/16/22 HYDROcodone/APAP 7.5-325MG [[place] 1 tab PO TID PRN 03/16/22 03/16/22 7.5-325] Midodrine [ProAmatine] 5 mg PO TID 03/16/22 03/16/22 Orphenadrine Citrate [Orphenadrine 100 mg PO HS 03/16/22 03/16/22 Citrate ER] Topiramate [Topamax] 200 mg PO BID 03/16/22 03/16/22 Allergies Allergy/AdvReac Type Severity Reaction Status Date / Time Penicillins Allergy Severe Anaphylaxis Verified 03/16/22 22:15 vancomycin Allergy Severe Swelling Verified 03/16/22 22:15 in lips latex Allergy Unknown Verified 03/16/22 22:15 morphine Allergy Unknown Verified 03/16/22 22:15 prochlorperazine Allergy Unknown Verified 03/16/22 22:15 [From Compazine] metoclopramide [From Reglan] AdvReac Unknown Verified 03/16/22 22:15 Review of Systems ROS Statement: Those systems with pertinent positive or pertinent negative responses have been documented in the HPI. ROS Other: All systems not noted in ROS Statement are negative. Past Medical History Past Medical History: Unable to Obtain, Pulmonary Embolus (PE) Additional Past Medical History / Comment(s): Lupus, Pyoderma Gangrenosum, clotting disorder History of Any Multi-Drug Resistant Organisms: None Reported Past Surgical History: Back Surgery, Breast Surgery, Section, Cholecystectomy, Hysterectomy, Pacemaker Past Psychological History: No Psychological Hx Reported Smoking Status: Never smoker Past Alcohol Use History: None Reported Past Drug Use History: None Reported General Exam Limitations: no limitations General appearance: alert, in distress (in pain, nauseous ) Head exam: Present: atraumatic, normocephalic, normal inspection Eye exam: Present: normal appearance Neck exam: Present: normal inspection Respiratory exam: Present: normal lung sounds bilaterally. Absent: respiratory distress, wheezes, rales, rhonchi, stridor Cardiovascular Exam: Present: regular rate, normal rhythm, normal heart sounds. Absent: systolic murmur, diastolic murmur, rubs, gallop, clicks Neurological exam: Present: alert, oriented X3, CN II-XII intact Psychiatric exam: Present: normal affect, normal mood Skin exam: Present: warm, dry, intact, normal color. Absent: rash Course Vital Signs 03/16/22 03/16/22 19:15 22:35 Temperature 98.4 F Pulse Rate 60 70 Respiratory 18 16 Rate Blood Pressure 113/70 118/76 O2 Sat by Pulse 100 96 Oximetry EKG Findings - EKG Comments: EKG Findings:: Electronic atrial pacemaker rate of 77. NC interval 181. QRS 105. QT 343. QTC 375. PVCs are noted. EKG interpreted by me and also shown to and interpreted by my attending Dr. Garcia Medical Decision Making - Medical Decision Making Patient is a 56-year-old female presenting for hypokalemia. She was sent by her PCP who states that she had a potassium of 2.3. On examination patient admits to generalized pain, she has lupus. She also admits to nausea. CBC shows no leukocytosis or anemia. Potassium is 2.3 sodium is 135 chloride is 88. Patient is receiving IV and oral potassium replacement. BUN 45 and creatinine 1.96. Magnesium is 2.5. Troponin is less than 0.012. Chest x-ray shows no evidence of acute process. Patient will be admitted for hypokalemia and RUBEN. Case was discussed with Dr. Hassan who accepted admission. Patient is agreeable with this plan. I discussed this case with my attending Dr. Garcia - Lab Data Result diagrams: 03/16/22 20:24 03/16/22 20:24 Lab Results 03/16/22 03/16/22 03/16/22 Range/Units 20:21 20:24 20:24 WBC 7.7 (3.8-10.6) k/uL RBC 4.66 (3.80-5.40) m/uL Hgb 14.9 (11.4-16.0) gm/dL Hct 40.8 (34.0-46.0) % MCV 87.4 (80.0-100.0) fL MCH 31.9 (25.0-35.0) pg MCHC 36.5 (31.0-37.0) g/dL RDW 12.3 (11.5-15.5) % Plt Count 261 (150-450) k/uL MPV 8.2 Neutrophils % 71 % Lymphocytes % 19 % Monocytes % 6 % Eosinophils % 2 % Basophils % 1 % Neutrophils # 5.5 (1.3-7.7) k/uL Lymphocytes # 1.5 (1.0-4.8) k/uL Monocytes # 0.5 (0-1.0) k/uL Eosinophils # 0.1 (0-0.7) k/uL Basophils # 0.1 (0-0.2) k/uL PT 10.2 (9.0-12.0) sec INR 0.9 (<1.2) APTT 26.2 (22.0-30.0) sec Sodium (137-145) mmol/L Potassium (3.5-5.1) mmol/L Chloride (98-107) mmol/L Carbon Dioxide (22-30) mmol/L Anion Gap mmol/L BUN (7-17) mg/dL Creatinine (0.52-1.04) mg/dL Est GFR (CKD-EPI)AfAm (>60 ml/min/1.73 sqM) Est GFR (CKD-EPI)NonAf (>60 ml/min/1.73 sqM) Glucose (74-99) mg/dL Plasma Lactic Acid Raffi 1.2 (0.7-2.0) mmol/L Calcium (8.4-10.2) mg/dL Phosphorus (2.5-4.5) mg/dL Magnesium (1.6-2.3) mg/dL Total Bilirubin (0.2-1.3) mg/dL AST (14-36) U/L ALT (4-34) U/L Alkaline Phosphatase (38-126) U/L Troponin I (0.000-0.034) ng/mL Total Protein (6.3-8.2) g/dL Albumin (3.5-5.0) g/dL 11/15/22 11/15/22 Range/Units 20:24 20:24 WBC (3.8-10.6) k/uL RBC (3.80-5.40) m/uL Hgb (11.4-16.0) gm/dL Hct (34.0-46.0) % MCV (80.0-100.0) fL MCH (25.0-35.0) pg MCHC (31.0-37.0) g/dL RDW (11.5-15.5) % Plt Count (150-450) k/uL MPV Neutrophils % % Lymphocytes % % Monocytes % % Eosinophils % % Basophils % % Neutrophils # (1.3-7.7) k/uL Lymphocytes # (1.0-4.8) k/uL Monocytes # (0-1.0) k/uL Eosinophils # (0-0.7) k/uL Basophils # (0-0.2) k/uL PT (9.0-12.0) sec INR (<1.2) APTT (22.0-30.0) sec Sodium 135 L (137-145) mmol/L Potassium 2.3 L* (3.5-5.1) mmol/L Chloride 88 L (98-107) mmol/L Carbon Dioxide 33 H (22-30) mmol/L Anion Gap 14 mmol/L BUN 45 H (7-17) mg/dL Creatinine 1.96 H (0.52-1.04) mg/dL Est GFR (CKD-EPI)AfAm 32 (>60 ml/min/1.73 sqM) Est GFR (CKD-EPI)NonAf 28 (>60 ml/min/1.73 sqM) Glucose 105 H (74-99) mg/dL Plasma Lactic Acid Raffi (0.7-2.0) mmol/L Calcium 9.6 (8.4-10.2) mg/dL Phosphorus 4.5 (2.5-4.5) mg/dL Magnesium 2.5 H (1.6-2.3) mg/dL Total Bilirubin 0.4 (0.2-1.3) mg/dL AST 30 (14-36) U/L ALT 27 (4-34) U/L Alkaline Phosphatase 91 (38-126) U/L Troponin I <0.012 (0.000-0.034) ng/mL Total Protein 7.9 (6.3-8.2) g/dL Albumin 5.1 H (3.5-5.0) g/dL Disposition Clinical Impression: Hypokalemia, RUBEN (acute kidney injury) Disposition: ADMITTED IP TO THIS HOSP Condition: Fair Time of Disposition: 21:34 Decision to Admit Reason: Admit from EC Decision Date: 03/16/22 Decision Time: 21:34
[2022-03-16 20:34] LABS: Basophils # (A) 0.1 k/uL (0-0.2); Basophils % (A) 1 %; Eosinophils # (A) 0.1 k/uL (0-0.7); Eosinophils % (A) 2 %; HCT 40.8 % (34.0-46.0); HGB 14.9 gm/dL (11.4-16.0); Lymphocytes # (A) 1.5 k/uL (1.0-4.8); Lymphocytes % (A) 19 %; MCH 31.9 pg (25.0-35.0); MCHC 36.5 g/dL (31.0-37.0); MCV 87.4 fL (80.0-100.0); Mean Platelet Volume 8.2; Monocytes # (A) 0.5 k/uL (0-1.0); Monocytes % (A) 6 %; Neutrophils # (A) 5.5 k/uL (1.3-7.7); Neutrophils % (A) 71 %; Platelet Count 261 k/uL (150-450); RBC 4.66 m/uL (3.80-5.40); RDW 12.3 % (11.5-15.5); WBC 7.7 k/uL (3.8-10.6)
[2022-03-16 20:47] LABS: Albumin 5.1 g/dL (3.5-5.0); Calcium 9.6 mg/dL (8.4-10.2); Magnesium 2.5 mg/dL (1.6-2.3); Phosphorus 4.5 mg/dL (2.5-4.5); Total Bilirubin 0.4 mg/dL (0.2-1.3); Total Protein 7.9 g/dL (6.3-8.2)
[2022-03-16 20:51] LABS: Potassium 2.3 mmol/L (3.5-5.1)
[2022-03-16 20:53] LABS: INR 0.9 (<1.2); Partial Thromboplastin Time 26.2 sec (22.0-30.0); Prothrombin Time 10.2 sec (9.0-12.0)
[2022-03-16] MEDS ORDERED: Potassium Replacement Protocol 1 EACH MISC MISCELLANE PRN (20:55)
[2022-03-16] MEDS ORDERED: ONDANSETRON 4 MG/2 ML VIAL IVP STA (20:56)
[2022-03-16] MEDS ORDERED: POTASSIUM CHLORIDE 10 MEQ in WATER FOR INJECTION 1 100ML.BAG IVPB STA (21:01)
[2022-03-16] MEDS ORDERED: HYDROmorphone 1 MG/ML 1 ML SYRINGE IVP STA (21:02)
[2022-03-16] MEDS: POTASSIUM CHLORIDE ER 20 MEQ TAB.ER PO SCH ×2 (21:27→21:29)
[2022-03-16] MEDS ORDERED: NALOXONE 0.4 MG/ML 1 ML VIAL IV PRN (21:34)
--- NOTE | 2022-03-16 21:45 | XR ---
EXAMINATION TYPE: XR chest 2V DATE OF EXAM: 03/16/2022 8:49 PM COMPARISON: Chest radiographs from 09/24/2021 TECHNIQUE: XR chest 2V Frontal and lateral views of the chest. CLINICAL INDICATION:Female, 56 years old with history of Weakness; FINDINGS: Lungs/Pleura: There is no evidence of pleural effusion, focal consolidation, or pneumothorax. Pulmonary vascularity: Unremarkable. Heart/mediastinum: Cardiomediastinal silhouette is enlarged and stable. A loop recorder projects over the left thorax over the heart.Single-lead cardiac conduction device overlying the right hemithorax with lead projecting over the right atrium. Valvular repair changes. Musculoskeletal: No acute osseous pathology. IMPRESSION: Postsurgical changes without evidence for acute process.
[2022-03-16] MEDS ORDERED: POTASSIUM CHLORIDE 20 MEQ in WATER FOR INJECTION 1 100ML.BAG IVPB SCH (22:00)
[2022-03-16] MEDS ORDERED: CHOLESTYRAMINE (WITH SUGAR) 4 GM PACKET PO PRN (23:32)
[2022-03-16] MEDS ORDERED: NON FORMULARY DRUG (Ubrogepant [Ubrelvy] 100 MG Tablet) PO PRN (23:32)
[2022-03-16] MEDS ORDERED: HYDROcodone/APAP 7.5-325MG 1 EACH TAB PO PRN (23:32)
[2022-03-16] MEDS ORDERED: diphenhydrAMINE 25 MG CAP PO PRN (23:37)
[2022-03-16] MEDS: SODIUM CHLORIDE 0.9% 1,000 ML IV SCH (23:48)
[2022-03-16] MEDS: HYDROmorphone 0.5 MG/0.5 ML SYRINGE IVP PRN (23:51)
[2022-03-16] MEDS: diphenhydrAMINE 50 MG/ML 1 ML VIAL IVP PRN (23:52)
[2022-03-16] MEDS: ONDANSETRON 4 MG/2 ML VIAL IVP PRN (23:52)
[2022-03-17] MEDS: HYDROmorphone 0.5 MG/0.5 ML SYRINGE IVP PRN ×5 (03:36→21:58)
[2022-03-17 04:45] LABS: Albumin 4.3 g/dL (3.5-5.0); Calcium 8.8 mg/dL (8.4-10.2); Magnesium 2.5 mg/dL (1.6-2.3); Total Bilirubin 0.3 mg/dL (0.2-1.3); Total Protein 6.6 g/dL (6.3-8.2)
[2022-03-17 04:51] LABS: Potassium 2.5 mmol/L (3.5-5.1)
[2022-03-17] MEDS: PANTOPRAZOLE 40 MG TABLET PO SCH (06:06)
[2022-03-17] MEDS: MIDODRINE 5 MG TAB PO SCH ×3 (06:06→17:37)
[2022-03-17] MEDS ORDERED: SYMBICORT 160-4.5 MCG INHALER INHALATION SCH (08:00)
[2022-03-17] MEDS: ONDANSETRON 4 MG/2 ML VIAL IVP PRN ×2 (08:13→17:00)
[2022-03-17] MEDS: IPRATROPIUM 0.5 MG/2.5 ML NEBU INHALATION SCH ×4 (08:20→20:10)
[2022-03-17] MEDS: SYMBICORT 160-4.5 MCG INHALER INHALATION SCH ×2 (08:32→20:10)
[2022-03-17] MEDS: ENOXAPARIN 40 MG/0.4 ML SYRINGE SQ SCH ×2 (09:09→21:39)
[2022-03-17] MEDS: TOPIRAMATE 100 MG TAB PO SCH ×2 (09:12→21:39)
[2022-03-17] MEDS: SUCRALFATE 1 GM TAB PO SCH ×3 (09:12→17:37)
[2022-03-17] MEDS: POTASSIUM CHLORIDE ER 20 MEQ TAB.ER PO SCH ×5 (09:13→21:40)
[2022-03-17] MEDS: SERTRALINE 100 MG TAB PO SCH (09:13)
[2022-03-17] MEDS: BUMETANIDE 1 MG TAB PO SCH ×2 (09:13→16:45)
[2022-03-17] MEDS: busPIRone HCl 10 MG TAB PO SCH ×2 (09:13→21:39)
[2022-03-17] MEDS: FLUDROCORTISONE 0.1 MG TAB PO SCH (09:13)
[2022-03-17] MEDS: GABAPENTIN 300 MG CAP PO SCH ×3 (09:14→21:39)
[2022-03-17] MEDS: LORATADINE 10 MG TAB PO SCH (09:14)
[2022-03-17] MEDS: SODIUM CHLORIDE 0.9% 1,000 ML IV SCH (11:17)
[2022-03-17] MEDS: diphenhydrAMINE 50 MG/ML 1 ML VIAL IVP PRN ×2 (11:18→18:25)
[2022-03-17] MEDS ORDERED: Potassium Replacement Protocol 1 EACH MISC MISCELLANE PRN (11:35)
[2022-03-17] MEDS: POTASSIUM CHLORIDE 20 MEQ in WATER FOR INJECTION 1 100ML.BAG IVPB SCH ×3 (14:00→18:28)
[2022-03-17] MEDS: CYCLOBENZAPRINE 10 MG TAB PO SCH (21:39)
[2022-03-17] MEDS: ATORVASTATIN 40 MG TAB PO SCH (21:39)
[2022-03-18] MEDS: methylPREDNISolone SOD SUCCI 40 MG/ML 1 ML VIAL IV SCH ×3 (01:30→16:09)
--- NOTE | 2022-03-18 02:24 | HP ---
HISTORY AND PHYSICAL HISTORY OF PRESENT ILLNESS: A 56-year-old white female presented for evaluation of hypokalemia, headaches, migraines, muscle fasciculations. Potassium is 2.3. She has had replacement protocol, still remains low. Does not want any more fluid hydration. She is admitted for severe hypokalemia with numbness and tingling in her face. No abdominal pain, or vomiting. HOME MEDICINES: 1. Eliquis 5 mg b.i.d. 2. Lipitor 40 daily. 3. Bumex 2 mg b.i.d. 4. Zyrtec 10 mg daily. 5. Cholestyramine 4 mg daily. 6. Benadryl p.r.n. 7. Florinef 0.1 daily. 8. Gabapentin 300 t.i.d. 9. Potassium chloride 40 mEq b.i.d. 10.Zoloft 200 mg daily. 11.Carafate 1 g t.i.d. 12.Ubrelvy 100 mg b.i.d. p.r.n. 13.BuSpar 10 mg b.i.d. 14.Requip 2 mg at bedtime. 15.Rescue inhaler 2 puffs b.i.d. 16.Lovenox 40 mcg subcu 12 hours. 17.Nexium 40 mg daily. 18.[place] 7.5 t.i.d. 19.Midodrine 5 mg t.i.d. 20.Topamax 200 b.i.d. ALLERGIES: See list, multiple, long. PAST MEDICAL HISTORY: She is . No smoking. No alcohol. PHYSICAL EXAMINATION: VITAL SIGNS: Temperature 98.4, pulse 60s to 70s, respiratory rate 16 to 18, blood pressure 113 to 118 over 70s, O2 of 96 to 100. CARDIOVASCULAR: S1, S2. LUNGS: Scattered rhonchi and wheeze. HEMATOLOGY: Negative for Homans. PSYCH: Fair mood and affect. NEUROLOGIC: Seems sleepy, lethargic. Alert and oriented x3. tenderness to palpation, sinuses. EKG, atrial tachycardia. Potassium 2.3, BUN 45, creatinine 1.96, sodium 135. ASSESSMENT: Severe hypokalemia with some fasciculations in face, history of lupus, history of degenerative disk disease, chronic obstructive pulmonary disease/asthma. Troponins negative. Chest x-ray is negative. Prerenal azotemia, dehydration, prognosis guarded. Replace potassium. Monitor electrolytes. CT scan of the sinuses, IV antibiotics, IV steroids for sinusitis and asthma, COPD. Prognosis guarded. MMODL / IJN: [id number] /
[2022-03-18] MEDS: SODIUM CHLORIDE 0.9% 1,000 ML IV SCH ×2 (02:43→09:09)
[2022-03-18 05:41] LABS: ALT 22 U/L (4-34); AST 30 U/L (14-36); African American GFR (CKD) 56 (>60 ml/min/1.73 sqM); Albumin 4.2 g/dL (3.5-5.0); Albumin/Globulin Ratio 1.8; Alkaline Phosphatase 58 U/L (38-126); Anion Gap 5 mmol/L; Blood Urea Nitrogen 30 mg/dL (7-17); Calcium 8.8 mg/dL (8.4-10.2); Carbon Dioxide 26 mmol/L (22-30); Chloride 108 mmol/L (98-107); Globulin 2.4 g/dL; Glucose 121 mg/dL (74-99); Non-African American GFR(CKD) 48 (>60 ml/min/1.73 sqM); Potassium 4.2 mmol/L (3.5-5.1); Sodium 139 mmol/L (137-145); Total Bilirubin 0.4 mg/dL (0.2-1.3); Total Protein 6.6 g/dL (6.3-8.2)
[2022-03-18 05:51] LABS: Basophils % (A) 0 %; Eosinophils # (A) 0.1 k/uL (0-0.7); Eosinophils % (A) 1 %; HCT 36.8 % (34.0-46.0); HGB 12.5 gm/dL (11.4-16.0); Lymphocytes # (A) 0.7 k/uL (1.0-4.8); Lymphocytes % (A) 12 %; MCH 30.6 pg (25.0-35.0); Mean Platelet Volume 9.6; Monocytes # (A) 0.2 k/uL (0-1.0); Monocytes % (A) 3 %; Neutrophils # (A) 4.8 k/uL (1.3-7.7); Neutrophils % (A) 82 %; Platelet Count 198 k/uL (150-450); RBC 4.09 m/uL (3.80-5.40); WBC 5.8 k/uL (3.8-10.6)
[2022-03-18] MEDS: SUCRALFATE 1 GM TAB PO SCH ×3 (06:14→17:34)
[2022-03-18] MEDS: PANTOPRAZOLE 40 MG TABLET PO SCH (06:14)
[2022-03-18] MEDS: MIDODRINE 5 MG TAB PO SCH ×3 (06:14→16:17)
[2022-03-18] MEDS: diphenhydrAMINE 50 MG/ML 1 ML VIAL IVP PRN ×2 (06:53→14:41)
[2022-03-18] MEDS: HYDROmorphone 0.5 MG/0.5 ML SYRINGE IVP PRN ×4 (06:53→21:22)
--- NOTE | 2022-03-18 07:54 | CT ---
EXAMINATION TYPE: CT sinus wo con CT DLP: 558 mGycm, Automated exposure control for dose reduction was used. DATE OF EXAM: 03/18/2022 7:41 AM COMPARISON: None. CLINICAL INDICATION:Female, 56 years old with history of sinus pain/pressure CONTRAST: None. TECHNIQUE: Multiple thin axial images were obtained through the paranasal sinuses without the use of IV contrast. Additional coronal and sagittal reformatted images were submitted for evaluation. FINDINGS: Frontal sinuses: Normally developed and aerated. Frontal Recess: Clear Maxillary Sinuses: Normally developed and aerated. Maxillary Infundibula(OMC): Clear, No Shine cells identified. Ethmoid sinuses: Normally developed and aerated. Ethmoidal notch: Protected and abutting the lateral lamina. Sphenoid sinuses: Normally developed and aerated. No dehiscence of carotid canal. No evidence of opt ic nerve dehiscence within the sphenoid sinus. No evidence of [place] cells. Sphenoethmoidal recesses: Clear. Nasal septum: Within normal limits.. Nasal Turbinates: Within normal limits. Mastoid air cells & middle ears: The air cells are clear. The middle ears are grossly unremarkable. Modified Soft tissues & Brain: Partially seen without gross abnormality. Globes are intact. Other: Cribriform plate demonstrates symmetric Keros classification type 2 cribriform plate. No evidence of bony dehiscence of skull base. Lamina papyracea is intact without evidence of remote orbital fracture or orbital prolapse into the e thmoid sinus. IMPRESSION: 1. No significant mucosal sinus disease. 2. The ostiomeatal units, frontonasal and sphenoethmoidal recesses are clear.
[2022-03-18] MEDS: SYMBICORT 160-4.5 MCG INHALER INHALATION SCH ×2 (08:16→20:18)
[2022-03-18] MEDS: IPRATROPIUM 0.5 MG/2.5 ML NEBU INHALATION SCH ×4 (08:16→19:33)
[2022-03-18] MEDS: BUMETANIDE 1 MG TAB PO SCH ×2 (10:41→15:18)
[2022-03-18] MEDS: busPIRone HCl 10 MG TAB PO SCH ×2 (10:44→21:25)
[2022-03-18] MEDS: LORATADINE 10 MG TAB PO SCH (10:46)
[2022-03-18] MEDS: FLUDROCORTISONE 0.1 MG TAB PO SCH (10:46)
[2022-03-18] MEDS: POTASSIUM CHLORIDE ER 20 MEQ TAB.ER PO SCH ×2 (10:47→21:25)
[2022-03-18] MEDS: SERTRALINE 100 MG TAB PO SCH (10:48)
[2022-03-18] MEDS: TOPIRAMATE 100 MG TAB PO SCH ×2 (10:48→21:25)
[2022-03-18] MEDS: ENOXAPARIN 40 MG/0.4 ML SYRINGE SQ SCH ×2 (10:53→21:26)
[2022-03-18] MEDS: GABAPENTIN 300 MG CAP PO SCH ×3 (11:20→21:25)
--- NOTE | 2022-03-18 15:06 | P.GSCN ---
History of Present Illness Consult date: 03/18/22 Reason for Consult: Port Placement Requesting physician: Franklin Hassan History of present illness: This is a pleasant 56-year-old female who presented to the emergency department 2 days ago for abnormal labs. Patient has a past medical history including lupus, pyoderma gangrenosum, and pulmonary embolism. Patient had outpatient work done and get a call stating her potassium was 2.3 she needed to go to the emergency department for treatment. She states she has been feeling unwell over the last several days, very dizzy, nauseated and some shortness of breath. She felt like she was having a lupus flare. Patient was admitted, IV fluid started as well as potassium replacement. She had a midline placed yesterday. She has a history of small veins, poor veins for IV started and blood. Patient again had a midline placed yesterday however she was seeing Dr. Gomez in the outpatient setting for possible port placement. Patient has a scheduled ultrasound at Dr. Gomez's office on Tuesday with follow-up on Tuesday. She states that she is feeling somewhat better, denies any chest pain or shortness of breath at this time. Just overall does not feel that well. She's been afebrile, vital signs stable. Today's labs WBC 5.8 hemoglobin 12.5 hematocrit 36 platelet count 198,000 sodium 139 potassium 4.2 BUN 30 creatinine 1.2 total bilirubin 0.4 AST 30 ALT 22 alk phos 58 Review of Systems A 14 point review systems was completed all pertinent positives and negatives as stated in the HPI. Past Medical History Past Medical History: Unable to Obtain, Pulmonary Embolus (PE) Additional Past Medical History / Comment(s): Lupus, Pyoderma Gangrenosum, clotting disorder History of Any Multi-Drug Resistant Organisms: None Reported Past Surgical History: Back Surgery, Breast Surgery, Section, Cholecystectomy, Hysterectomy, Pacemaker Type of Cardiac Device: Unknown Device Placement Date:: unknown Past Psychological History: No Psychological Hx Reported Smoking Status: Never smoker Past Alcohol Use History: None Reported Past Drug Use History: None Reported Medications and Allergies Home Medications Medication Instructions Recorded Confirmed Type Apixaban [Eliquis] 5 mg PO DIRECTED 09/24/21 03/16/22 History Atorvastatin [Lipitor] 40 mg PO HS 09/24/21 03/16/22 History Bumetanide [BUMEX] 2 mg PO BID 09/24/21 03/16/22 History Cetirizine HCl 10 mg PO DAILY 09/24/21 03/16/22 History Cholestyramine (with Sugar) 4 gm PO DAILY PRN 09/24/21 03/16/22 History [Cholestyramine Packet] Diphenhydramine 50mg/Ml Vial 50 mg INJ Q6H PRN 09/24/21 03/16/22 History Fludrocortisone [Florinef] 0.1 mg PO DAILY 09/24/21 03/16/22 History Gabapentin 300 mg PO TID 09/24/21 03/16/22 History Potassium Chloride ER [K-Dur 20] 40 meq PO BID 09/24/21 03/16/22 History Sertraline [Zoloft] 200 mg PO DAILY 09/24/21 03/16/22 History Sucralfate 1 gm PO AC-TID 09/24/21 03/16/22 History Ubrogepant [Ubrelvy] 100 mg PO BID PRN 09/24/21 03/16/22 History busPIRone HCl [Buspar] 10 mg PO BID 09/24/21 03/16/22 History rOPINIRole HCL [Requip] 2 mg PO HS 09/24/21 03/16/22 History Budesonide/Glycopyr/Formoterol 1 puff INHALATION RT-BID 03/16/22 03/16/22 History [Breztri Aerosphere Inhaler] Enoxaparin [Lovenox] 40 mg SQ Q12H 03/16/22 03/16/22 History Esomeprazole Magnesium [NexIUM] 40 mg PO DAILY 03/16/22 03/16/22 History HYDROcodone/APAP 7.5-325MG [[place] 1 tab PO TID PRN 03/16/22 03/16/22 History 7.5-325] Midodrine [ProAmatine] 5 mg PO TID 03/16/22 03/16/22 History Orphenadrine Citrate [Orphenadrine 100 mg PO HS 03/16/22 03/16/22 History Citrate ER] Topiramate [Topamax] 200 mg PO BID 03/16/22 03/16/22 History Allergies Allergy/AdvReac Type Severity Reaction Status Date / Time Penicillins Allergy Severe Anaphylaxis Verified 03/16/22 22:15 vancomycin Allergy Severe Swelling Verified 03/16/22 22:15 in lips latex Allergy Unknown Verified 03/16/22 22:15 morphine Allergy Unknown Verified 03/16/22 22:15 prochlorperazine Allergy Unknown Verified 03/16/22 22:15 [From Compazine] metoclopramide [From Reglan] AdvReac Unknown Verified 03/16/22 22:15 Surgical - Exam Vital Signs Temp Pulse Resp BP Pulse Ox 98.4 F 60 18 113/70 100 03/16/22 19:15 03/16/22 19:15 03/16/22 19:15 03/16/22 19:15 03/16/22 19:15 General appearance: The patient is alert, oriented, appears in no acute distress. HET: Head is normocephalic and atraumatic. Pupils are equal and reactive. Neck: Supple without lymphadenopathy. Trachea midline. Heart: Regular. Lungs: Equal expansion, normal respiratory effort. Abdomen: Soft, nontender, nondistended. Extremities: Normal skin color and turgor. Neurological: No focal deficits. Strength and sensation are grossly intact. Results - Labs 03/18/22 05:24 03/18/22 05:21 Abnormal Lab Results - Last 24 Hours (Table) 03/18/22 03/18/22 Range/Units 05:21 05:24 Lymphocytes # 0.7 L (1.0-4.8) k/uL Chloride 108 H (98-107) mmol/L BUN 30 H (7-17) mg/dL Creatinine 1.24 H (0.52-1.04) mg/dL Glucose 121 H (74-99) mg/dL Diabetes panel 03/17/22 03/18/22 Range/Units 23:35 05:21 Sodium 139 (137-145) mmol/L Potassium 3.8 4.2 (3.5-5.1) mmol/L Chloride 108 H (98-107) mmol/L Carbon Dioxide 26 (22-30) mmol/L BUN 30 H (7-17) mg/dL Creatinine 1.24 H (0.52-1.04) mg/dL Glucose 121 H (74-99) mg/dL Calcium 8.8 (8.4-10.2) mg/dL AST 30 (14-36) U/L ALT 22 (4-34) U/L Alkaline Phosphatase 58 (38-126) U/L Total Protein 6.6 (6.3-8.2) g/dL Albumin 4.2 (3.5-5.0) g/dL Calcium panel 03/18/22 Range/Units 05:21 Calcium 8.8 (8.4-10.2) mg/dL Albumin 4.2 (3.5-5.0) g/dL Pituitary panel 03/17/22 03/18/22 Range/Units 23:35 05:21 Sodium 139 (137-145) mmol/L Potassium 3.8 4.2 (3.5-5.1) mmol/L Chloride 108 H (98-107) mmol/L Carbon Dioxide 26 (22-30) mmol/L BUN 30 H (7-17) mg/dL Creatinine 1.24 H (0.52-1.04) mg/dL Glucose 121 H (74-99) mg/dL Calcium 8.8 (8.4-10.2) mg/dL Adrenal panel 03/17/22 03/18/22 Range/Units 23:35 05:21 Sodium 139 (137-145) mmol/L Potassium 3.8 4.2 (3.5-5.1) mmol/L Chloride 108 H (98-107) mmol/L Carbon Dioxide 26 (22-30) mmol/L BUN 30 H (7-17) mg/dL Creatinine 1.24 H (0.52-1.04) mg/dL Glucose 121 H (74-99) mg/dL Calcium 8.8 (8.4-10.2) mg/dL Total Bilirubin 0.4 (0.2-1.3) mg/dL AST 30 (14-36) U/L ALT 22 (4-34) U/L Alkaline Phosphatase 58 (38-126) U/L Total Protein 6.6 (6.3-8.2) g/dL Albumin 4.2 (3.5-5.0) g/dL Assessment and Plan Assessment: 1. Hypokalemia 2. Hyponatremia 3. Lupus Plan: This is a 56-year-old patient who follows with Dr. Gomez in the office. She is currently being evaluated for possible port placement due to poor IV access due to her underlying lupus. Patient has scheduled outpatient ultrasound at Dr. Gomez's office on Tuesday with follow-up on Tuesday to planned port placement. No vascular surgical intervention during this hospital stay. We want to ultrasound done at vascular surgery office. Thank you for this consultation, this was discussed with the patient and she is agreeable with plan. Thank you for this consultation, we will sign off at this time. The impression and plan of care has been dictated as directed. I performed a history and examination of this patient, discussed the same with the dictator. I agree with the dictator's note ,documented as a scribe. Any additional findings or plans will be noted.
[2022-03-18] MEDS: Ubrogepant [Ubrelvy] 100 MG Tablet PO PRN (16:38)
[2022-03-18 19:02] LABS: Appearance,Urine Clear (Clear); Bilirubin,Urine Negative (Negative); Blood,Urine Negative (Negative); Color,Urine Colorless; Glucose,Urine (UA) Negative (Negative); Ketones,Urine Negative (Negative); Leukocyte Esterase,Urine Negative (Negative); Nitrite,Urine Negative (Negative); Protein,Urine Negative (Negative); Specific Gravity,Urine 1.008 (1.001-1.035); Urobilinogen,Urine <2.0 mg/dL (<2.0)
[2022-03-18] MEDS: CYCLOBENZAPRINE 10 MG TAB PO SCH (21:25)
[2022-03-18] MEDS: ATORVASTATIN 40 MG TAB PO SCH (21:25)
[2022-03-19] MEDS: methylPREDNISolone SOD SUCCI 40 MG/ML 1 ML VIAL IV SCH ×3 (00:09→15:02)
[2022-03-19] MEDS: diphenhydrAMINE 50 MG/ML 1 ML VIAL IVP PRN ×3 (00:19→21:42)
[2022-03-19] MEDS: SODIUM CHLORIDE 0.9% 1,000 ML IV SCH ×2 (00:21→16:58)
[2022-03-19] MEDS: ONDANSETRON 4 MG/2 ML VIAL IVP PRN ×3 (00:36→20:13)
[2022-03-19] MEDS: HYDROmorphone 0.5 MG/0.5 ML SYRINGE IVP PRN ×5 (04:18→20:12)
--- NOTE | 2022-03-19 04:34 | PN ---
PROGRESS NOTE SUBJECTIVE: A 56-year-old white female admitted with severe hypokalemia and dehydration. Her BUN and creatinine are improving every day, so she has been admitted. She is complaining of a lump under her right arm that she is scheduled for an outpatient mammogram. I told her I discussed options will be an ultrasound tonight of the right axilla prior to discharge. She will go home tomorrow if potassium stabilized. She is much more rehydrated. Condition stable. Prognosis guarded. Ambulate as tolerated. Psych, fair mood and affect. ASSESSMENT: Prerenal azotemia, dehydration, severe hypokalemia, much improved. Medicines adjusted. Ultrasound of the right axilla prior to discharge. She will be discharged home tomorrow. MMODL / IJN: [id number] /
[2022-03-19 06:20] LABS: Basophils % (A) 0 %; Eosinophils % (A) 1 %; HCT 34.4 % (34.0-46.0); HGB 11.9 gm/dL (11.4-16.0); Lymphocytes # (A) 0.5 k/uL (1.0-4.8); Lymphocytes % (A) 7 %; MCH 31.6 pg (25.0-35.0); MCHC 34.6 g/dL (31.0-37.0); MCV 91.3 fL (80.0-100.0); Mean Platelet Volume 9.5; Monocytes # (A) 0.2 k/uL (0-1.0); Monocytes % (A) 2 %; Neutrophils # (A) 6.8 k/uL (1.3-7.7); Neutrophils % (A) 89 %; Platelet Count 193 k/uL (150-450); RBC 3.77 m/uL (3.80-5.40); RDW 13.2 % (11.5-15.5); WBC 7.6 k/uL (3.8-10.6)
[2022-03-19] MEDS: MIDODRINE 5 MG TAB PO SCH ×3 (06:31→16:39)
[2022-03-19] MEDS: PANTOPRAZOLE 40 MG TABLET PO SCH (06:31)
[2022-03-19] MEDS: SUCRALFATE 1 GM TAB PO SCH ×3 (06:31→16:41)
[2022-03-19] MEDS: Ubrogepant [Ubrelvy] 100 MG Tablet PO PRN ×2 (06:33→16:45)
[2022-03-19 06:43] LABS: ALT 20 U/L (4-34); AST 22 U/L (14-36); African American GFR (CKD) 51 (>60 ml/min/1.73 sqM); Albumin 4.1 g/dL (3.5-5.0); Albumin/Globulin Ratio 1.9; Alkaline Phosphatase 59 U/L (38-126); Anion Gap 7 mmol/L; Blood Urea Nitrogen 28 mg/dL (7-17); Calcium 8.6 mg/dL (8.4-10.2); Carbon Dioxide 26 mmol/L (22-30); Chloride 108 mmol/L (98-107); Globulin 2.2 g/dL; Glucose 151 mg/dL (74-99); Non-African American GFR(CKD) 44 (>60 ml/min/1.73 sqM); Potassium 4.3 mmol/L (3.5-5.1); Sodium 141 mmol/L (137-145); Total Bilirubin 0.4 mg/dL (0.2-1.3); Total Protein 6.3 g/dL (6.3-8.2)
[2022-03-19] MEDS: TOPIRAMATE 100 MG TAB PO SCH ×2 (08:09→20:19)
[2022-03-19] MEDS: SERTRALINE 100 MG TAB PO SCH (08:09)
[2022-03-19] MEDS: BUMETANIDE 1 MG TAB PO SCH ×2 (08:09→11:50)
[2022-03-19] MEDS: LORATADINE 10 MG TAB PO SCH (08:09)
[2022-03-19] MEDS: busPIRone HCl 10 MG TAB PO SCH ×2 (08:09→20:18)
[2022-03-19] MEDS: POTASSIUM CHLORIDE ER 20 MEQ TAB.ER PO SCH ×2 (08:09→20:19)
[2022-03-19] MEDS: GABAPENTIN 300 MG CAP PO SCH ×3 (08:09→21:34)
[2022-03-19] MEDS: FLUDROCORTISONE 0.1 MG TAB PO SCH (08:09)
[2022-03-19] MEDS: ENOXAPARIN 40 MG/0.4 ML SYRINGE SQ SCH ×2 (08:10→20:12)
[2022-03-19] MEDS: IPRATROPIUM 0.5 MG/2.5 ML NEBU INHALATION SCH ×4 (08:14→19:18)
[2022-03-19] MEDS: SYMBICORT 160-4.5 MCG INHALER INHALATION SCH ×2 (08:14→19:18)
--- NOTE | 2022-03-19 09:39 | USB ---
Reason for Exam: Clinical finding. Risk Values: [place] 5 year model risk: 0.8%. NCI Lifetime model risk: 5.2%. Findings: Target ultrasound 9:00 Position right breast at site of palpable abnormality shows no worrisome solid or cystic mass or abnormal fluid collection. Overall Assessment: Negative, BI-RAD 1 Management: Screening Mammogram of both breasts. Annual bilateral breast mammogram advised in patient of this age. Correlate clinically. Managed palpable on clinical basis. Electronically signed and approved by: Vasu Sweet M.D.
[2022-03-19] MEDS ORDERED: polyethylene glycoL 3350 17 GM POWD.PACK PO PRN (20:00)
[2022-03-19] MEDS: CYCLOBENZAPRINE 10 MG TAB PO SCH (20:18)
[2022-03-19] MEDS: ATORVASTATIN 40 MG TAB PO SCH (20:18)
[2022-03-20] MEDS: methylPREDNISolone SOD SUCCI 40 MG/ML 1 ML VIAL IV SCH ×2 (00:19→09:35)
[2022-03-20] MEDS: HYDROmorphone 0.5 MG/0.5 ML SYRINGE IVP PRN ×2 (03:26→08:11)
[2022-03-20] MEDS: SODIUM CHLORIDE 0.9% 1,000 ML IV SCH (05:29)
[2022-03-20] MEDS: PANTOPRAZOLE 40 MG TABLET PO SCH (05:29)
[2022-03-20] MEDS: MIDODRINE 5 MG TAB PO SCH (05:29)
[2022-03-20] MEDS: SUCRALFATE 1 GM TAB PO SCH (05:29)
[2022-03-20 07:31] VITALS: BP 135/87; RESP 18; TEMP 98.3
[2022-03-20 07:35] LABS: ALT 20 U/L (4-34); AST 21 U/L (14-36); African American GFR (CKD) 60 (>60 ml/min/1.73 sqM); Albumin 4.3 g/dL (3.5-5.0); Albumin/Globulin Ratio 1.9; Alkaline Phosphatase 56 U/L (38-126); Anion Gap 9 mmol/L; Blood Urea Nitrogen 24 mg/dL (7-17); Calcium 8.8 mg/dL (8.4-10.2); Carbon Dioxide 23 mmol/L (22-30); Chloride 108 mmol/L (98-107); Globulin 2.3 g/dL; Glucose 120 mg/dL (74-99); Non-African American GFR(CKD) 52 (>60 ml/min/1.73 sqM); Potassium 4.7 mmol/L (3.5-5.1); Sodium 140 mmol/L (137-145); Total Bilirubin 0.4 mg/dL (0.2-1.3); Total Protein 6.6 g/dL (6.3-8.2)
[2022-03-20] MEDS: SYMBICORT 160-4.5 MCG INHALER INHALATION SCH (07:59)
[2022-03-20] MEDS: IPRATROPIUM 0.5 MG/2.5 ML NEBU INHALATION SCH (07:59)
[2022-03-20 08:14] VITALS: PULSE 80
--- NOTE | 2022-03-20 08:37 | PN ---
PROGRESS NOTE A 56-year-old white female came in with hypokalemia, dehydration, prerenal azotemia, much improved. She had emesis today, at which time, we are going to keep her until possibly tomorrow for discharge, but she is otherwise just cleared for discharge. Her potassium has been replaced. Nausea, vomiting will have to be treated, possible gastroparesis. Prognosis guarded. Follow up in the next 24 to 48 hours for possible discharge. MMODL / IJN: [id number] /
[2022-03-20] MEDS: ENOXAPARIN 40 MG/0.4 ML SYRINGE SQ SCH (09:36)
[2022-03-20] MEDS: LORATADINE 10 MG TAB PO SCH (09:36)
[2022-03-20] MEDS: POTASSIUM CHLORIDE ER 20 MEQ TAB.ER PO SCH (09:36)
[2022-03-20] MEDS: FLUDROCORTISONE 0.1 MG TAB PO SCH (09:37)
[2022-03-20] MEDS: GABAPENTIN 300 MG CAP PO SCH (09:37)
[2022-03-20] MEDS: BUMETANIDE 1 MG TAB PO SCH (09:37)
[2022-03-20] MEDS: SERTRALINE 100 MG TAB PO SCH (09:38)
[2022-03-20] MEDS: busPIRone HCl 10 MG TAB PO SCH (09:38)
[2022-03-20] MEDS: TOPIRAMATE 100 MG TAB PO SCH (09:38)
== END 2022-03-20 10:25 | disposition home or self-care (01) | DRG 641 ==
LOC: EC 19:00 → 6NMEDSUR 21:37
PROVIDERS: ADMIT Family Medicine; ATTEND Family Medicine
PROC: 05HA33Z Insertion of Infusion Device into Left Brachial Vein, Percutaneous Approach (ICD-10-PCS; principal; 2022-03-17 09:30)
DX: E87.6 Hypokalemia (principal); N17.9 Acute kidney failure, unspecified; D68.9 Coagulation defect, unspecified; I47.1 Supraventricular tachycardia; L88 Pyoderma gangrenosum; M32.9 Systemic lupus erythematosus, unspecified; J44.9 Chronic obstructive pulmonary disease, unspecified; E86.0 Dehydration; R79.89 Other specified abnormal findings of blood chemistry; R11.2 Nausea with vomiting, unspecified; G43.909 Migraine, unspecified, not intractable, without status migrainosus; J32.9 Chronic sinusitis, unspecified; I49.3 Ventricular premature depolarization; R22.31 Localized swelling, mass and lump, right upper limb; E87.1 Hypo-osmolality and hyponatremia; Z28.310 Unvaccinated for COVID-19; Z79.01 Long term (current) use of anticoagulants; Z79.52 Long term (current) use of systemic steroids; Z86.711 Personal history of pulmonary embolism; Z95.0 Presence of cardiac pacemaker; Z88.0 Allergy status to penicillin; Z88.1 Allergy status to other antibiotic agents; Z91.040 Latex allergy status; Z88.5 Allergy status to narcotic agent; Z88.8 Allergy status to other drugs, medicaments and biological substances; Z79.899 Other long term (current) drug therapy
CPT/HCPCS: 36410; 36415; 70486; 71046; 76937; 80053; 81003; 83605; 83735; 84100; 84132; 84484; 85025; 85610; 85730; 93005; 94640; 96365; 96375; 99285

== ENCOUNTER 2022-03-31 04:03 | Emergency (ER) | payer BC, MEDICARE ==
[2022-03-31 04:09] VITALS: RESP 16
--- NOTE | 2022-03-31 04:50 | ED ---
General Adult HPI - General Chief complaint: Nausea/Vomiting/Diarrhea Stated complaint: Low potassium Time Seen by Provider: 03/31/22 04:10 Source: patient Mode of arrival: ambulatory Limitations: no limitations - History of Present Illness Initial comments: 56-year-old female with past medical history of pyoderma gangrenosum, lupus who presents emergency Department with reported diarrhea. States that she ran out of her Neurontin because it was the holiday. She was unable to get it refilled until yesterday. It the lack of medication subsequently caused her to have significant diarrhea. States that last time she had significant diarrhea she was hypokalemic which required observation. Patient saw her primary care doctor and had laboratory studies completed however she was told that they would not results until tomorrow. She began having some intense cramping and was concerned that her electrolytes were significantly off. As she is a cardiac patient she presents to the emergency room for evaluation. She denies any chest pain or shortness of breath. No black or bloody stools. No other alleviating, precipitating or modifying factors - Related Data Home Medications Medication Instructions Recorded Confirmed Apixaban [Eliquis] 5 mg PO BID 09/24/21 04/02/22 Atorvastatin [Lipitor] 40 mg PO HS 09/24/21 04/02/22 Bumetanide [BUMEX] 2 mg PO BID 09/24/21 04/02/22 Cetirizine HCl 10 mg PO DAILY 09/24/21 04/02/22 Cholestyramine (with Sugar) 4 gm PO DAILY PRN 09/24/21 04/02/22 [Cholestyramine Packet] Diphenhydramine 50mg/Ml Vial 50 mg IV Q6H PRN 09/24/21 04/02/22 Fludrocortisone [Florinef] 0.1 mg PO DAILY 09/24/21 04/02/22 Gabapentin 300 mg PO TID 09/24/21 04/02/22 Potassium Chloride ER [K-Dur 20] 40 meq PO BID 09/24/21 04/02/22 Sertraline [Zoloft] 200 mg PO DAILY 09/24/21 04/02/22 Sucralfate 1 gm PO AC-TID 09/24/21 04/02/22 Ubrogepant [Ubrelvy] 100 mg PO BID PRN 09/24/21 04/02/22 busPIRone HCl [Buspar] 10 mg PO BID 09/24/21 04/02/22 rOPINIRole HCL [Requip] 2 mg PO HS 09/24/21 04/02/22 Budesonide/Glycopyr/Formoterol 1 puff INHALATION RT-BID 03/16/22 04/02/22 [Breztri Aerosphere Inhaler] Esomeprazole Magnesium [NexIUM] 40 mg PO DAILY 03/16/22 04/02/22 HYDROcodone/APAP 7.5-325MG [[place] 1 tab PO TID PRN 03/16/22 04/02/22 7.5-325] Midodrine [ProAmatine] 5 mg PO TID 03/16/22 04/02/22 Orphenadrine Citrate [Orphenadrine 100 mg PO HS 03/16/22 04/02/22 Citrate ER] Topiramate [Topamax] 200 mg PO BID 03/16/22 04/02/22 Botox 200unit Injection 1 dose INJ Q84D 04/02/22 04/02/22 Dicyclomine [Bentyl] 20 mg PO QID PRN 04/02/22 04/02/22 Meclizine [Antivert] 12.5 mg PO Q8H PRN 04/02/22 04/02/22 Allergies Allergy/AdvReac Type Severity Reaction Status Date / Time Penicillins Allergy Severe Anaphylaxis Verified 04/02/22 14:10 vancomycin Allergy Severe Swelling Verified 04/02/22 14:10 in lips latex Allergy Unknown Verified 04/02/22 14:10 morphine Allergy Unknown Verified 04/02/22 14:10 prochlorperazine Allergy Unknown Verified 04/02/22 14:10 [From Compazine] metoclopramide [From Reglan] AdvReac Unknown Verified 04/02/22 14:10 Review of Systems ROS Statement: Those systems with pertinent positive or pertinent negative responses have been documented in the HPI. ROS Other: All systems not noted in ROS Statement are negative. Past Medical History Past Medical History: Unable to Obtain, Pulmonary Embolus (PE) Additional Past Medical History / Comment(s): Lupus, Pyoderma Gangrenosum, clotting disorder History of Any Multi-Drug Resistant Organisms: C-DIFF Date of last positivie culture/infection: 2021 Past Surgical History: Back Surgery, Breast Surgery, Section, Cholecystectomy, Hysterectomy, Pacemaker Type of Cardiac Device: Unknown Device Placement Date:: unknown Past Psychological History: Anxiety Smoking Status: Never smoker Past Alcohol Use History: None Reported Past Drug Use History: Marijuana General Exam Limitations: no limitations General appearance: alert, in no apparent distress Head exam: Present: atraumatic, normocephalic, normal inspection Eye exam: Present: normal appearance, PERRL, EOMI. Absent: scleral icterus, conjunctival injection, periorbital swelling ENT exam: Present: normal exam, mucous membranes moist Neck exam: Present: normal inspection. Absent: tenderness, meningismus, lymphadenopathy Respiratory exam: Present: normal lung sounds bilaterally. Absent: respiratory distress, wheezes, rales, rhonchi, stridor Cardiovascular Exam: Present: regular rate, normal rhythm, normal heart sounds. Absent: systolic murmur, diastolic murmur, rubs, gallop, clicks GI/Abdominal exam: Present: soft, normal bowel sounds. Absent: distended, tenderness, guarding, rebound, rigid Extremities exam: Present: normal inspection, full ROM, normal capillary refill. Absent: tenderness, pedal edema, joint swelling, calf tenderness Back exam: Present: normal inspection Neurological exam: Present: alert, oriented X3, CN II-XII intact Psychiatric exam: Present: normal affect, normal mood Skin exam: Present: warm, dry, intact, normal color. Absent: rash Course Vital Signs 03/31/22 03/31/22 03/31/22 04:05 07:58 11:12 Temperature 98 F 98 F 98.2 F Pulse Rate 71 78 74 Respiratory 16 16 16 Rate Blood Pressure 128/75 129/78 135/92 O2 Sat by Pulse 97 98 95 Oximetry EKG Findings - EKG Comments: EKG Findings:: EKG demonstrates a sinus rhythm with a rate of 70. DC 195. QRS E4. QTC of 339. No acute ST segment elevations or depressions. EKG interpreted by myself Medical Decision Making - Medical Decision Making Upon arrival patient was placed into room 14. A thorough history and physical exam was performed. Laboratory studies were conducted which demonstrated a potassium of 3 and a creatinine of 1.3. Patient will be given replacement potassium and a 500 bag of fluid. She will be discharged home with a prescrip tion to have her labs redrawn on [place] and follow up with the primary care doctor. Patient is requesting Dilaudid by name and therefore this is provided to the patient for her cramping as well as a dose of IM Bentyl. She is to return for any new or worsening symptoms. Patient was discharged with stable condition - Lab Data Result diagrams: 03/31/22 05:06 03/31/22 05:06 Lab Results 03/31/22 03/31/22 Range/Units 05:06 05:06 WBC 7.9 (3.8-10.6) k/uL RBC 4.50 (3.80-5.40) m/uL Hgb 14.3 (11.4-16.0) gm/dL Hct 39.9 (34.0-46.0) % MCV 88.6 (80.0-100.0) fL MCH 31.8 (25.0-35.0) pg MCHC 35.9 (31.0-37.0) g/dL RDW 12.8 (11.5-15.5) % Plt Count 212 (150-450) k/uL MPV 9.3 Neutrophils % 68 % Lymphocytes % 20 % Monocytes % 6 % Eosinophils % 2 % Basophils % 1 % Neutrophils # 5.4 (1.3-7.7) k/uL Lymphocytes # 1.6 (1.0-4.8) k/uL Monocytes # 0.5 (0-1.0) k/uL Eosinophils # 0.1 (0-0.7) k/uL Basophils # 0.0 (0-0.2) k/uL Sodium 137 (137-145) mmol/L Potassium 3.0 L (3.5-5.1) mmol/L Chloride 103 (98-107) mmol/L Carbon Dioxide 23 (22-30) mmol/L Anion Gap 11 mmol/L BUN 30 H (7-17) mg/dL Creatinine 1.33 H (0.52-1.04) mg/dL Est GFR (CKD-EPI)AfAm 51 (>60 ml/min/1.73 sqM) Est GFR (CKD-EPI)NonAf 44 (>60 ml/min/1.73 sqM) Glucose 95 (74-99) mg/dL Calcium 9.1 (8.4-10.2) mg/dL Magnesium 2.1 (1.6-2.3) mg/dL Total Bilirubin 0.6 (0.2-1.3) mg/dL AST 24 (14-36) U/L ALT 27 (4-34) U/L Alkaline Phosphatase 75 (38-126) U/L Total Protein 7.1 (6.3-8.2) g/dL Albumin 4.6 (3.5-5.0) g/dL Lipase 194 (23-300) U/L Disposition Clinical Impression: Dehydration, Hypokalemia, Diarrhea, Myalgia Disposition: HOME SELF-CARE Condition: Stable Instructions (If sedation given, give patient instructions): Acute Diarrhea (ED) Additional Instructions: Please come to the outpatient lab on Tuesday to have your labs redrawn. The results will be sent to Dr. Hassan. Return for any new or worsening symptoms Is patient prescribed a controlled substance at d/c from ED?: No Referrals: Franklin Hassan MD [Primary Care Provider] - 1-2 days Time of Disposition: 06:29
[2022-03-31] MEDS ORDERED: ONDANSETRON ODT 4 MG TAB PO STA (05:12)
[2022-03-31 05:34] LABS: Basophils % (A) 1 %; Eosinophils # (A) 0.1 k/uL (0-0.7); Eosinophils % (A) 2 %; HCT 39.9 % (34.0-46.0); HGB 14.3 gm/dL (11.4-16.0); Lymphocytes # (A) 1.6 k/uL (1.0-4.8); Lymphocytes % (A) 20 %; MCH 31.8 pg (25.0-35.0); MCHC 35.9 g/dL (31.0-37.0); MCV 88.6 fL (80.0-100.0); Mean Platelet Volume 9.3; Monocytes # (A) 0.5 k/uL (0-1.0); Monocytes % (A) 6 %; Neutrophils # (A) 5.4 k/uL (1.3-7.7); Neutrophils % (A) 68 %; Platelet Count 212 k/uL (150-450); RDW 12.8 % (11.5-15.5); WBC 7.9 k/uL (3.8-10.6)
[2022-03-31 05:37] LABS: Albumin 4.6 g/dL (3.5-5.0); Calcium 9.1 mg/dL (8.4-10.2); Magnesium 2.1 mg/dL (1.6-2.3); Total Bilirubin 0.6 mg/dL (0.2-1.3); Total Protein 7.1 g/dL (6.3-8.2)
[2022-03-31] MEDS ORDERED: DICYCLOMINE 10 MG/ML 2 ML AMP IM STA (05:41)
[2022-03-31] MEDS ORDERED: POTASSIUM CHLORIDE 20 MEQ in WATER FOR INJECTION 1 100ML.BAG IVPB STA (06:24)
[2022-03-31] MEDS ORDERED: POTASSIUM CHLORIDE ER 20 MEQ TAB.ER PO STA (06:24)
[2022-03-31] MEDS ORDERED: SODIUM CHLORIDE 0.9% 500 ML 500 ML IV ONE (06:25)
[2022-03-31] MEDS: HYDROmorphone 1 MG/ML 1 ML SYRINGE IVP STA ×2 (07:22→07:53)
[2022-03-31 11:13] VITALS: BP 135/92; PULSE 74; TEMP 98.2
== END 2022-03-31 11:12 | disposition home or self-care (01) ==
LOC: EC 04:03
DX: E87.6 Hypokalemia (principal); M79.10 Myalgia, unspecified site; R19.7 Diarrhea, unspecified; I26.99 Other pulmonary embolism without acute cor pulmonale; F41.9 Anxiety disorder, unspecified; F12.90 Cannabis use, unspecified, uncomplicated; Z79.01 Long term (current) use of anticoagulants; Z88.0 Allergy status to penicillin; Z91.040 Latex allergy status; Z88.5 Allergy status to narcotic agent; Z88.8 Allergy status to other drugs, medicaments and biological substances; Z88.9 Allergy status to unspecified drugs, medicaments and biological substances
CPT/HCPCS: 36415; 93005; 80053; 83690; 83735; 85025; 99285; 96365; 96366; 96375; 96372; J0500; J3480; J1170

== ENCOUNTER → 2022-04-01 | Outpatient (CLI) | payer BC, MEDICARE ==
[2022-04-02 02:31] LABS: African American GFR (CKD) 42.6 (60.0-200.0); Anion Gap 11.4 mmol/L (10.00-18.00); Blood Urea Nitrogen 25.4 mg/dL (9.0-27.0); Carbon Dioxide 24.9 mmol/L (20.0-27.5); Non-African American GFR(CKD) 36.8 (60.0-200.0); Potassium 3.8 mmol/L (3.5-5.5)
== END | disposition home or self-care (01) ==
LOC: LABWHC1 15:46
PROVIDERS: ATTEND Family Medicine
DX: E87.6 Hypokalemia (principal); E86.0 Dehydration
CPT/HCPCS: 36415; 80051; 82565; 83880; 84520

== ENCOUNTER 2022-04-02 09:14 | Inpatient (IN) | payer BC, MEDICARE ==
[2022-04-02] MEDS ORDERED: SODIUM CHLORIDE 0.9% 1,000 ML IV STA (12:21)
[2022-04-02] MEDS ORDERED: ASPIRIN 81 MG PO STA (12:21)
[2022-04-02] MEDS ORDERED: HYDROmorphone 0.5 MG/0.5 ML SYRINGE IVP STA ×2 (12:23→15:02)
--- NOTE | 2022-04-02 12:24 | ED ---
General Adult HPI - General Chief complaint: Chest Pain Stated complaint: Chest Pain Time Seen by Provider: 04/02/22 12:15 Source: patient, RN notes reviewed, old records reviewed Mode of arrival: ambulatory Limitations: no limitations - History of Present Illness Initial comments: Patient is a 56-year-old female with past medical history remarkable for clotting disorder, lupus, chronic hypokalemia, multiple PEs on Eliquis, pyoderma gangrenosum, who presents emergency Department complaining of acute on chronic symptoms that are worsening. Patient is endorsing generalized body cramping which she states is typical when her potassium is low. Was here for a potassium infusion yesterday that was completed but patient states it was not high enough. Since that time she has been having continued muscle cramping, as well as an atypical chest pain located substernally that is a cramping aching sensation. States she has not chest pain previously when her potassium is low in addition to her other symptoms. Does have a history of IBS which is why she is also having some chronic diarrhea that is nonbloody. Endorses nausea but no episodes of emesis. She is requesting evaluation. States symptoms all started yesterday but waited until today days evaluated. She is been without her gabapentin since last week. She attributes all of her symptoms to this. Denies any fevers, chills, sick contacts, cough. Did have Covid back in November. Denies any urinary complaints. Denies any radiation of the chest pain. Presents for further evaluation at this time. - Related Data Home Medications Medication Instructions Recorded Confirmed Apixaban [Eliquis] 5 mg PO BID 09/24/21 04/02/22 Atorvastatin [Lipitor] 40 mg PO HS 09/24/21 04/02/22 Bumetanide [BUMEX] 2 mg PO BID 09/24/21 04/02/22 Cetirizine HCl 10 mg PO DAILY 09/24/21 04/02/22 Cholestyramine (with Sugar) 4 gm PO DAILY PRN 09/24/21 04/02/22 [Cholestyramine Packet] Diphenhydramine 50mg/Ml Vial 50 mg IV Q6H PRN 09/24/21 04/02/22 Fludrocortisone [Florinef] 0.1 mg PO DAILY 09/24/21 04/02/22 Gabapentin 300 mg PO TID 09/24/21 04/02/22 Potassium Chloride ER [K-Dur 20] 40 meq PO BID 09/24/21 04/02/22 Sertraline [Zoloft] 200 mg PO DAILY 09/24/21 04/02/22 Sucralfate 1 gm PO AC-TID 09/24/21 04/02/22 Ubrogepant [Ubrelvy] 100 mg PO BID PRN 09/24/21 04/02/22 busPIRone HCl [Buspar] 10 mg PO BID 09/24/21 04/02/22 rOPINIRole HCL [Requip] 2 mg PO HS 09/24/21 04/02/22 Budesonide/Glycopyr/Formoterol 1 puff INHALATION RT-BID 03/16/22 04/02/22 [Breztri Aerosphere Inhaler] Esomeprazole Magnesium [NexIUM] 40 mg PO DAILY 03/16/22 04/02/22 HYDROcodone/APAP 7.5-325MG [[place] 1 tab PO TID PRN 03/16/22 04/02/22 7.5-325] Midodrine [ProAmatine] 5 mg PO TID 03/16/22 04/02/22 Orphenadrine Citrate [Orphenadrine 100 mg PO HS 03/16/22 04/02/22 Citrate ER] Topiramate [Topamax] 200 mg PO BID 03/16/22 04/02/22 Botox 200unit Injection 1 dose INJ Q84D 04/02/22 04/02/22 Dicyclomine [Bentyl] 20 mg PO QID PRN 04/02/22 04/02/22 Meclizine [Antivert] 12.5 mg PO Q8H PRN 04/02/22 04/02/22 Allergies Allergy/AdvReac Type Severity Reaction Status Date / Time Penicillins Allergy Severe Anaphylaxis Verified 04/02/22 14:10 vancomycin Allergy Severe Swelling Verified 04/02/22 14:10 in lips latex Allergy Unknown Verified 04/02/22 14:10 morphine Allergy Unknown Verified 04/02/22 14:10 prochlorperazine Allergy Unknown Verified 04/02/22 14:10 [From Compazine] metoclopramide [From Reglan] AdvReac Unknown Verified 04/02/22 14:10 Review of Systems ROS Statement: Those systems with pertinent positive or pertinent negative responses have been documented in the HPI. Review of Systems: CONST: Denies fever EYES: Denies blurry vision ENT: Denies nasal congestion C/V: Endorses chest pain RESP: Denies shortness of breath GI: Denies abdominal pain : Denies dysuria SKIN: Denies rash. MSK: Endorses body aches NEURO: Denies headache ROS Other: All systems not noted in ROS Statement are negative. Past Medical History Past Medical History: Unable to Obtain, Pulmonary Embolus (PE) Additional Past Medical History / Comment(s): Lupus, Pyoderma Gangrenosum, clotting disorder History of Any Multi-Drug Resistant Organisms: C-DIFF Date of last positivie culture/infection: 2021 Past Surgical History: Back Surgery, Breast Surgery, Section, Cholecystectomy, Hysterectomy, Pacemaker Type of Cardiac Device: Unknown Device Placement Date:: unknown Past Psychological History: Anxiety Smoking Status: Never smoker Past Alcohol Use History: None Reported Past Drug Use History: Marijuana General Exam - General Exam Comments Initial Comments: General: Appears in no acute distress. HEAD: Normal with no signs of head trauma. EYES: PERRLA, EOMI, conjunctiva normal, no discharge. ENT: Hearing grossly intact, normal oropharynx. RESPIRATORY: Clear breath sounds bilaterally. No wheezes, rales, or rhonchi. C/V: Atrial paced rhythm. S1 and S2 auscultated. Peripheral pulses 2+ intact throughout. No peripheral edema that is significant. ABD: Abd is soft, nontender, nondistended EXT: Normal range of motion, no obvious deformity SKIN: No rashes or lesions observed on exposed skin. NEURO: Alert and oriented 4. No focal deficits. Limitations: no limitations Course Vital Signs 04/02/22 04/02/22 09:15 14:30 Temperature 98.1 F Pulse Rate 70 71 Respiratory 20 18 Rate Blood Pressure 113/76 109/76 O2 Sat by Pulse 97 93 L Oximetry Medical Decision Making - Medical Decision Making Based on the patient's presentation and physical exam, I do believe that her current presentation is likely secondary to possible chronic electrode abnormality such as hypokalemia but cannot rule out other etiologies at this time including ACS considering her chest pain. She is on a blood thinner and therefore pulmonary embolism is nonoccluded on the differential she has been compliant with her medications. Vital signs within except for limits. We will obtain a cardiac workup and labs. EKG and chest x-ray will be obtained. She'll be symptomatically treated with IV fluids, aspirin, Dilaudid. She was in agreement this plan. EKG shows atrial paced rhythm with no signs of acute ischemia.Chest x-ray as interpreted by myself reveals no significant cardio pulmonary process. Possible mild pulmonary vascular congestion. No infiltrate. Laboratory studies are remarkable for an undetectable troponin. Patient has an AK I with a BUN of 26 and creatinine of 1.78. Patient is also hypokalemic to 2.8. Remainder the labs are unremarkable. On reevaluation, patient at this time does convey to me that they did transition her was concerned that she may have a PE as she may have missed some dosing of her anticoagulation medication last week she states she had procedure done 1-2 weeks ago. She denies shortness of breath but has this atypical chest pain. She has been compliant with all questions since then. Patient is not hypoxic. No respiratory distress. I believe PE is unlikely, considering she is already therapeutic but due to her still having some mild chest discomfort as well as this recent event of stopping her anticoagulation 2 weeks ago despite symptoms just starting yesterday, I did order a VQ scan as her laboratory studies are not conducive for CT angiogram imaging. She was in agreement with this plan. She'll be admitted to the hospital for further management. I spoke with the admitting physician, Dr. Hassan who accepted the patient. Requested that I consult nephrology which was done. He was otherwise in agreement this plan. We will monitor the amount of fluids the patient is receiving as she does have a history of heart failure. Potassium was replenished with IV potassium. Patient was therefore admitted in stable condition. - Lab Data Result diagrams: 04/02/22 14:18 04/02/22 14:18 Lab Results 04/02/22 04/02/22 04/02/22 Range/Units 13:21 13:29 13:29 WBC (3.8-10.6) k/uL RBC (3.80-5.40) m/uL Hgb (11.4-16.0) gm/dL Hct (34.0-46.0) % MCV (80.0-100.0) fL MCH (25.0-35.0) pg MCHC (31.0-37.0) g/dL RDW (11.5-15.5) % Plt Count (150-450) k/uL MPV Neutrophils % % Lymphocytes % % Monocytes % % Eosinophils % % Basophils % % Neutrophils # (1.3-7.7) k/uL Lymphocytes # (1.0-4.8) k/uL Monocytes # (0-1.0) k/uL Eosinophils # (0-0.7) k/uL Basophils # (0-0.2) k/uL PT (9.0-12.0) sec INR (<1.2) APTT (22.0-30.0) sec Sodium (137-145) mmol/L Potassium (3.5-5.1) mmol/L Chloride (98-107) mmol/L Carbon Dioxide (22-30) mmol/L Anion Gap mmol/L BUN (7-17) mg/dL Creatinine (0.52-1.04) mg/dL Est GFR (CKD-EPI)AfAm (>60 ml/min/1.73 sqM) Est GFR (CKD-EPI)NonAf (>60 ml/min/1.73 sqM) Glucose (74-99) mg/dL Calcium (8.4-10.2) mg/dL Total Bilirubin (0.2-1.3) mg/dL AST (14-36) U/L ALT (4-34) U/L Alkaline Phosphatase (38-126) U/L Troponin I (0.000-0.034) ng/mL Total Protein (6.3-8.2) g/dL Albumin (3.5-5.0) g/dL Urine Color Light Yellow Urine Appearance Clear (Clear) Urine pH 6.5 (5.0-8.0) Ur Specific [place] 1.014 (1.001-1.035) Urine Protein Negative (Negative) Urine Glucose (UA) Negative (Negative) Urine Ketones Negative (Negative) Urine Blood Negative (Negative) Urine Nitrite Negative (Negative) Urine Bilirubin Negative (Negative) Urine Urobilinogen <2.0 (<2.0) mg/dL Ur Leukocyte Esterase Small H (Negative) Urine RBC <1 (0-5) /hpf Urine WBC 1 (0-5) /hpf Ur Squamous Epith Cells <1 (0-4) /hpf Urine Mucus Rare H (None) /hpf Coronavirus (PCR) Not Detected (Not Detectd) Influenza Type A RNA Not Detected (Not Detectd) Influenza Type B (PCR) Not Detected (Not Detectd) 04/02/22 04/02/22 04/02/22 Range/Units 14:18 14:18 14:18 WBC 5.8 (3.8-10.6) k/uL RBC 4.31 (3.80-5.40) m/uL Hgb 13.6 (11.4-16.0) gm/dL Hct 38.7 (34.0-46.0) % MCV 89.9 (80.0-100.0) fL MCH 31.7 (25.0-35.0) pg MCHC 35.2 (31.0-37.0) g/dL RDW 13.0 (11.5-15.5) % Plt Count 216 (150-450) k/uL MPV 8.6 Neutrophils % 70 % Lymphocytes % 19 % Monocytes % 5 % Eosinophils % 3 % Basophils % 0 % Neutrophils # 4.1 (1.3-7.7) k/uL Lymphocytes # 1.1 (1.0-4.8) k/uL Monocytes # 0.3 (0-1.0) k/uL Eosinophils # 0.2 (0-0.7) k/uL Basophils # 0.0 (0-0.2) k/uL PT 10.2 (9.0-12.0) sec INR 1.0 (<1.2) APTT 28.6 (22.0-30.0) sec Sodium 137 (137-145) mmol/L Potassium 2.8 L (3.5-5.1) mmol/L Chloride 98 (98-107) mmol/L Carbon Dioxide 28 (22-30) mmol/L Anion Gap 11 mmol/L BUN 26 H (7-17) mg/dL Creatinine 1.78 H (0.52-1.04) mg/dL Est GFR (CKD-EPI)AfAm 36 (>60 ml/min/1.73 sqM) Est GFR (CKD-EPI)NonAf 31 (>60 ml/min/1.73 sqM) Glucose 90 (74-99) mg/dL Calcium 9.3 (8.4-10.2) mg/dL Total Bilirubin 0.3 (0.2-1.3) mg/dL AST 32 (14-36) U/L ALT 28 (4-34) U/L Alkaline Phosphatase 77 (38-126) U/L Troponin I (0.000-0.034) ng/mL Total Protein 7.4 (6.3-8.2) g/dL Albumin 4.8 (3.5-5.0) g/dL Urine Color Urine Appearance (Clear) Urine pH (5.0-8.0) Ur Specific [place] (1.001-1.035) Urine Protein (Negative) Urine Glucose (UA) (Negative) Urine Ketones (Negative) Urine Blood (Negative) Urine Nitrite (Negative) Urine Bilirubin (Negative) Urine Urobilinogen (<2.0) mg/dL Ur Leukocyte Esterase (Negative) Urine RBC (0-5) /hpf Urine WBC (0-5) /hpf Ur Squamous Epith Cells (0-4) /hpf Urine Mucus (None) /hpf Coronavirus (PCR) (Not Detectd) Influenza Type A RNA (Not Detectd) Influenza Type B (PCR) (Not Detectd) 04/02/22 Range/Units 14:18 WBC (3.8-10.6) k/uL RBC (3.80-5.40) m/uL Hgb (11.4-16.0) gm/dL Hct (34.0-46.0) % MCV (80.0-100.0) fL MCH (25.0-35.0) pg MCHC (31.0-37.0) g/dL RDW (11.5-15.5) % Plt Count (150-450) k/uL MPV Neutrophils % % Lymphocytes % % Monocytes % % Eosinophils % % Basophils % % Neutrophils # (1.3-7.7) k/uL Lymphocytes # (1.0-4.8) k/uL Monocytes # (0-1.0) k/uL Eosinophils # (0-0.7) k/uL Basophils # (0-0.2) k/uL PT (9.0-12.0) sec INR (<1.2) APTT (22.0-30.0) sec Sodium (137-145) mmol/L Potassium (3.5-5.1) mmol/L Chloride (98-107) mmol/L Carbon Dioxide (22-30) mmol/L Anion Gap mmol/L BUN (7-17) mg/dL Creatinine (0.52-1.04) mg/dL Est GFR (CKD-EPI)AfAm (>60 ml/min/1.73 sqM) Est GFR (CKD-EPI)NonAf (>60 ml/min/1.73 sqM) Glucose (74-99) mg/dL Calcium (8.4-10.2) mg/dL Total Bilirubin (0.2-1.3) mg/dL AST (14-36) U/L ALT (4-34) U/L Alkaline Phosphatase (38-126) U/L Troponin I <0.012 (0.000-0.034) ng/mL Total Protein (6.3-8.2) g/dL Albumin (3.5-5.0) g/dL Urine Color Urine Appearance (Clear) Urine pH (5.0-8.0) Ur Specific [place] (1.001-1.035) Urine Protein (Negative) Urine Glucose (UA) (Negative) Urine Ketones (Negative) Urine Blood (Negative) Urine Nitrite (Negative) Urine Bilirubin (Negative) Urine Urobilinogen (<2.0) mg/dL Ur Leukocyte Esterase (Negative) Urine RBC (0-5) /hpf Urine WBC (0-5) /hpf Ur Squamous Epith Cells (0-4) /hpf Urine Mucus (None) /hpf Coronavirus (PCR) (Not Detectd) Influenza Type A RNA (Not Detectd) Influenza Type B (PCR) (Not Detectd) - EKG Data -: EKG Interpreted by Me EKG Comments: 12-lead Electrocardiogram Interpretation Note EKG was reviewed and interpreted by myself. 12-lead ECG performed at 0922 is interpreted by me as revealing atrial paced rhythm at a rate of 71 beats per minute. Chromo is normal. TX interval is 189 ms, QRS duration is 97 ms, QTc is 434 ms.. There were no ST or T wave abnormalities to suggest myocardial ischemia or injury. R wave progression across the precordium was satisfactory. By my interpretation this EKG is non-diagnostic for acute ischemia. No significant change when compared to prior EKG from March 2022. 12-lead Electrocardiogram Interpretation Note EKG was reviewed and interpreted by myself. 12-lead ECG performed at 1220 is interpreted by me as revealing atrial paced rhythm at a rate of 73 beats per minute. Chromo is normal. TX interval is 204 ms, QRS duration is 102 ms, QTc is 453 ms.. There were no ST or T wave abnormalities to suggest myocardial ischemia or injury. R wave progression across the precordium was satisfactory. By my interpretation this EKG is non-diagnostic for acute ischemia. No significant change when compared with EKG from earlier today. Disposition Clinical Impression: Hypokalemia, RUBEN (acute kidney injury), Atypical chest pain Disposition: ADMITTED IP TO THIS HOSP Condition: Stable Time of Disposition: 15:41
[2022-04-02 13:33] LABS: Appearance,Urine Clear (Clear); Bilirubin,Urine Negative (Negative); Blood,Urine Negative (Negative); Color,Urine Light Yellow; Glucose,Urine (UA) Negative (Negative); Ketones,Urine Negative (Negative); Leukocyte Esterase,Urine Small (Negative); Mucus,Urine Rare /hpf; Nitrite,Urine Negative (Negative); PH, Urine 6.5 (5.0-8.0); Protein,Urine Negative (Negative); RBC,Urine <1 /hpf (0-5); Specific Gravity,Urine 1.014 (1.001-1.035); Squamous Epithelial Cell,Urine <1 /hpf (0-4); Urobilinogen,Urine <2.0 mg/dL (<2.0); WBC,Urine 1 /hpf (0-5)
[2022-04-02 14:42] LABS: Basophils % (A) 0 %; Eosinophils # (A) 0.2 k/uL (0-0.7); Eosinophils % (A) 3 %; HCT 38.7 % (34.0-46.0); HGB 13.6 gm/dL (11.4-16.0); Lymphocytes # (A) 1.1 k/uL (1.0-4.8); Lymphocytes % (A) 19 %; MCH 31.7 pg (25.0-35.0); MCHC 35.2 g/dL (31.0-37.0); MCV 89.9 fL (80.0-100.0); Mean Platelet Volume 8.6; Monocytes # (A) 0.3 k/uL (0-1.0); Monocytes % (A) 5 %; Neutrophils # (A) 4.1 k/uL (1.3-7.7); Neutrophils % (A) 70 %; Platelet Count 216 k/uL (150-450); RBC 4.31 m/uL (3.80-5.40); WBC 5.8 k/uL (3.8-10.6)
[2022-04-02 14:51] LABS: Partial Thromboplastin Time 28.6 sec (22.0-30.0); Prothrombin Time 10.2 sec (9.0-12.0)
--- NOTE | 2022-04-02 14:55 | XR ---
EXAMINATION TYPE: XR chest 2V DATE OF EXAM: 04/02/2022 COMPARISON: 03/16/2022 HISTORY: 56-year-old female with chest pain TECHNIQUE: AP and lateral views FINDINGS: Loop recorder device projects over the left side of the heart. There is a right anterior chest wall p acemaker generator with right atrial lead. Endovascular aortic valve replacement noted. Heart is bord britt to mildly enlarged. There is vascular prominence bilaterally. No pleural effusion or consolida tion. IMPRESSION: Borderline to mild cardiomegaly. Vascular prominence may reflect mild pulmonary vascular congestion. No consolidation or pulmonary edema.
[2022-04-02 15:06] LABS: Albumin 4.8 g/dL (3.5-5.0); Calcium 9.3 mg/dL (8.4-10.2); Potassium 2.8 mmol/L (3.5-5.1); Total Bilirubin 0.3 mg/dL (0.2-1.3); Total Protein 7.4 g/dL (6.3-8.2)
[2022-04-02] MEDS ORDERED: NALOXONE 0.4 MG/ML 1 ML VIAL IV PRN ×2 (15:41→16:29)
[2022-04-02] MEDS ORDERED: SODIUM CHLORIDE 0.9% 1,000 ML IV SCH (15:45)
[2022-04-02] MEDS ORDERED: NON FORMULARY DRUG (Ubrogepant [Ubrelvy] 100 MG Tablet) PO PRN (16:20)
[2022-04-02] MEDS ORDERED: DICYCLOMINE 20 MG TAB PO PRN (16:20)
[2022-04-02] MEDS ORDERED: MECLIZINE 12.5 MG TAB PO PRN (16:20)
[2022-04-02] MEDS: HYDROmorphone 0.5 MG/0.5 ML SYRINGE IVP PRN ×2 (16:24→20:20)
[2022-04-02] MEDS: POTASSIUM CHLORIDE 10 MEQ in WATER FOR INJECTION 1 100ML.BAG IVPB SCH ×3 (16:34→19:27)
[2022-04-02] MEDS ORDERED: diphenhydrAMINE 50 MG/ML 1 ML VIAL IVP STA (16:38)
[2022-04-02 17:14] LABS: Magnesium 2.3 mg/dL (1.6-2.3)
[2022-04-02] MEDS: MIDODRINE 5 MG TAB PO SCH (18:21)
[2022-04-02] MEDS: IPRATROPIUM 0.5 MG/2.5 ML NEBU INHALATION SCH (19:26)
[2022-04-02] MEDS: SYMBICORT 160-4.5 MCG INHALER INHALATION SCH (19:26)
[2022-04-02] MEDS: GABAPENTIN 300 MG CAP PO SCH (22:16)
[2022-04-02] MEDS: TOPIRAMATE 100 MG TAB PO SCH (22:17)
[2022-04-02] MEDS: busPIRone HCl 5 MG TAB PO SCH (22:17)
[2022-04-02] MEDS: BUMETANIDE 1 MG TAB PO SCH (22:17)
[2022-04-02] MEDS: CYCLOBENZAPRINE 10 MG TAB PO SCH (22:17)
[2022-04-02] MEDS: ATORVASTATIN 40 MG TAB PO SCH (22:18)
[2022-04-02] MEDS: POTASSIUM CHLORIDE ER 20 MEQ TAB.ER PO SCH (22:18)
[2022-04-02] MEDS: APIXABAN 5 MG TAB PO SCH (22:18)
[2022-04-02 22:31] LABS: Glucose,Whole Blood 114 mg/dL (70-110)
[2022-04-03] MEDS: MIDODRINE 5 MG TAB PO SCH ×3 (06:44→16:18)
--- NOTE | 2022-04-03 08:36 | NM ---
EXAMINATION TYPE: NM pul vent and perfuse DATE OF EXAM: 04/03/2022 8:06 AM CLINICAL INDICATION:Female, 56 years old with history of rule out PE, already on thinners; COMPARISON: None TECHNIQUE: Utilizing inhalation of 70.0 mCi Tc 99m DTPA aerosol and intravenous injection of 4.85 mC i of Tc 99m MAA, ventilation and perfusion images are acquired post injection in multiple projections . FINDINGS: Normal radiotracer distribution is noted in the lungs. There is no evidence of mismatched defects. IMPRESSION: No evidence of pulmonary embolism.
[2022-04-03] MEDS: GABAPENTIN 300 MG CAP PO SCH ×3 (08:39→20:23)
[2022-04-03] MEDS: TOPIRAMATE 100 MG TAB PO SCH ×2 (08:39→20:23)
[2022-04-03] MEDS: APIXABAN 5 MG TAB PO SCH ×2 (08:39→20:24)
[2022-04-03] MEDS: LORATADINE 10 MG TAB PO SCH (08:40)
[2022-04-03] MEDS: FLUDROCORTISONE 0.1 MG TAB PO SCH (08:40)
[2022-04-03] MEDS: POTASSIUM CHLORIDE ER 20 MEQ TAB.ER PO SCH ×2 (08:40→20:25)
[2022-04-03] MEDS: SERTRALINE 100 MG TAB PO SCH (08:40)
[2022-04-03] MEDS: BUMETANIDE 1 MG TAB PO SCH (08:40)
[2022-04-03] MEDS: busPIRone HCl 5 MG TAB PO SCH ×2 (08:40→20:24)
[2022-04-03] MEDS: HYDROmorphone 0.5 MG/0.5 ML SYRINGE IVP PRN ×3 (08:44→20:27)
[2022-04-03] MEDS: SYMBICORT 160-4.5 MCG INHALER INHALATION SCH ×2 (09:04→20:43)
[2022-04-03] MEDS: IPRATROPIUM 0.5 MG/2.5 ML NEBU INHALATION SCH ×4 (09:04→20:37)
--- NOTE | 2022-04-03 09:38 | P.NPCON ---
History of Present Illness - Reason for Consult acute renal failure - History of Present Illness Patient is a 56-year-old female who was admitted to the hospital with increased weakness and low potassium. Patient states she has had low potassium levels for many years now in fact she was told that she had low potassium during childhood as well. Patient is maintained on diuretics at home for history of CHF per patient. Patient also had significant diarrhea from IBS prior to admission as she ran out of Neurontin for about 2-3 days prior to admission. History of chronic kidney disease, NKF stage III with baseline creatinine around 1.2-1.1 mg/dL. 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 Patient states that she was informed that she has solitary functioning kidney with atrophy off one of the kidneys due to possible thrombo-embolic phenomena related to antiphospholipid antibody syndrome which patient states was a complication from the flu shot. Patient states that subsequently she has had pulmonary embolism as well. Patient was recently hospitalized about 2 weeks ago with acute kidney injury associated with volume depletion nausea vomiting and diarrhea. Serum creatinine improved to 1.17 from 1.9 at peak. Patient denies use of any nonsteroidal anti-inflammatory agents Patient has had good urine output No history of use of NSAIDs Serum creatinine was 1.6 mg/dL on 04 01 and increased to 1.78 yesterday. Currently not on any IV fluids Review of Systems As per HPI other systems negative Past Medical History Past Medical History: Pulmonary Embolus (PE) Additional Past Medical History / Comment(s): Lupus, Pyoderma Gangrenosum, clotting disorder History of Any Multi-Drug Resistant Organisms: C-DIFF Date of last positivie culture/infection: 2021 MDRO Source:: Stool Past Surgical History: Back Surgery, Breast Surgery, Section, Cholecystectomy, Hysterectomy, Pacemaker Type of Cardiac Device: Unknown Device Placement Date:: unknown Past Psychological History: Anxiety Smoking Status: Never smoker Past Alcohol Use History: None Reported Past Drug Use History: Marijuana Medications and Allergies Home Medications Medication Instructions Recorded Confirmed Type Apixaban [Eliquis] 5 mg PO BID 09/24/21 04/02/22 History Atorvastatin [Lipitor] 40 mg PO HS 09/24/21 04/02/22 History Bumetanide [BUMEX] 2 mg PO BID 09/24/21 04/02/22 History Cetirizine HCl 10 mg PO DAILY 09/24/21 04/02/22 History Cholestyramine (with Sugar) 4 gm PO DAILY PRN 09/24/21 04/02/22 History [Cholestyramine Packet] Diphenhydramine 50mg/Ml Vial 50 mg IV Q6H PRN 09/24/21 04/02/22 History Fludrocortisone [Florinef] 0.1 mg PO DAILY 09/24/21 04/02/22 History Gabapentin 300 mg PO TID 09/24/21 04/02/22 History Potassium Chloride ER [K-Dur 20] 40 meq PO BID 09/24/21 04/02/22 History Sertraline [Zoloft] 200 mg PO DAILY 09/24/21 04/02/22 History Sucralfate 1 gm PO AC-TID 09/24/21 04/02/22 History Ubrogepant [Ubrelvy] 100 mg PO BID PRN 09/24/21 04/02/22 History busPIRone HCl [Buspar] 10 mg PO BID 09/24/21 04/02/22 History rOPINIRole HCL [Requip] 2 mg PO HS 09/24/21 04/02/22 History Budesonide/Glycopyr/Formoterol 1 puff INHALATION RT-BID 03/16/22 04/02/22 History [Breztri Aerosphere Inhaler] Esomeprazole Magnesium [NexIUM] 40 mg PO DAILY 03/16/22 04/02/22 History HYDROcodone/APAP 7.5-325MG [[place] 1 tab PO TID PRN 03/16/22 04/02/22 History 7.5-325] Midodrine [ProAmatine] 5 mg PO TID 03/16/22 04/02/22 History Orphenadrine Citrate [Orphenadrine 100 mg PO HS 03/16/22 04/02/22 History Citrate ER] Topiramate [Topamax] 200 mg PO BID 03/16/22 04/02/22 History Botox 200unit Injection 1 dose INJ Q84D 04/02/22 04/02/22 History Dicyclomine [Bentyl] 20 mg PO QID PRN 04/02/22 04/02/22 History Meclizine [Antivert] 12.5 mg PO Q8H PRN 04/02/22 04/02/22 History Allergies Allergy/AdvReac Type Severity Reaction Status Date / Time Penicillins Allergy Severe Anaphylaxis Verified 04/02/22 14:10 vancomycin Allergy Severe Swelling Verified 04/02/22 14:10 in lips latex Allergy Unknown Verified 04/02/22 14:10 morphine Allergy Unknown Verified 04/02/22 14:10 prochlorperazine Allergy Unknown Verified 04/02/22 14:10 [From Compazine] metoclopramide [From Reglan] AdvReac Unknown Verified 04/02/22 14:10 Physical Exam Vitals: Vital Signs Temp Pulse Pulse Resp BP BP Pulse Ox 04/03/22 08:38 97.6 F 69 19 102/70 99 04/03/22 04:00 98 F 70 12 105/72 98 04/02/22 23:45 97.6 F 70 12 99/66 96 04/02/22 20:41 97.9 F 89 12 101/69 93 L 04/02/22 20:23 97.6 F 70 18 97/66 99 04/02/22 19:36 70 04/02/22 19:26 70 04/02/22 18:19 97.6 F 70 16 94/63 97 04/02/22 14:30 71 18 109/76 93 L Intake and Output 04/02/22 04/03/22 04/03/22 22:59 06:59 14:59 Other: Voiding Method Toilet Toilet Toilet # Voids 0 # Bowel Movements 0 Weight 68.039 kg Awake, comfortable, no acute distress Examination of the heart S1 and S2 Examination of the lungs bilateral breath sounds are heard Abdomen is soft nontender Examination of lower extremity shows no evidence of edema [employer] exam grossly intact Results - Lab Results Most recent lab results Calcium 9.3 mg/dL (8.4-10.2) 04/02/22 14:18 Magnesium 2.3 mg/dL (1.6-2.3) 04/02/22 14:18 04/02/22 14:18 04/02/22 14:18 Assessment and Plan Assessment: 1. Acute kidney injury prerenal status post IV fluids. Repeat labs pending from today. UA is benign. Blood pressure has been low 2. Chronic kidney disease baseline creatinine around 1.1-1.2 mg/dL. History of thromboembolic phenomena in 1 of the kidneys per patient. Check ultrasound of the kidneys for size 3. Hypokalemia associated with GI and urinary loss with diarrhea and use of diuretics. Need to rule out underlying renal wasting associated with RTA as patient states she was informed that she had low potassium levels during childhood as well. 4. History of antiphospholipid antibody syndrome associated with flu vaccine but subsequent history of PE and thromboembolic phenomenon in one of the kidneys per patient. 5. History of pyoderma gangrenosum 6. History of chronic hypotension maintained on midodrine and fludrocortisone as outpatient Plan: Repeat labs today and Check ultrasound of the kidneys Hold Bumex for now Replace potassium aggressively Check random cortisol level Repeat labs in a.m. Thank you for the consultation. We will continue to follow the patient with you during her hospitalization
[2022-04-03 09:49] LABS: Basophils % (A) 1 %; Eosinophils # (A) 0.1 k/uL (0-0.7); Eosinophils % (A) 2 %; HCT 42.4 % (34.0-46.0); HGB 14.1 gm/dL (11.4-16.0); Lymphocytes # (A) 1.3 k/uL (1.0-4.8); Lymphocytes % (A) 23 %; MCH 31.2 pg (25.0-35.0); MCHC 33.2 g/dL (31.0-37.0); Mean Platelet Volume 8.9; Monocytes # (A) 0.3 k/uL (0-1.0); Monocytes % (A) 6 %; Neutrophils # (A) 3.6 k/uL (1.3-7.7); Neutrophils % (A) 64 %; Platelet Count 208 k/uL (150-450); RBC 4.51 m/uL (3.80-5.40); RDW 13.2 % (11.5-15.5); WBC 5.6 k/uL (3.8-10.6)
[2022-04-03 09:55] LABS: Calcium 9.5 mg/dL (8.4-10.2)
[2022-04-03 09:58] LABS: Potassium 3.5 mmol/L (3.5-5.1)
--- NOTE | 2022-04-03 11:57 | US ---
EXAMINATION TYPE: US kidneys/renal and bladder DATE OF EXAM: 04/03/2022 COMPARISON: NONE CLINICAL HISTORY: ckd. Per patient, non functioning right kidney. EXAM MEASUREMENTS: Right Kidney: 5.4 x 2.3 x 2.5 cm Left Kidney: 9.4 x 4.5 x 4.4 cm Right Kidney: Atrophic, No evidence hydronephrosis or calculus. Left Kidney: No evidence hydronephrosis or calculus. Bladder: wnl Bilateral Jets seen: Left jets visualized. Right jet not visualized IMPRESSION: No evidence of obstructive uropathy.
[2022-04-03] MEDS: HYDROcodone/APAP 7.5-325MG 1 EACH TAB PO PRN (12:31)
[2022-04-03] MEDS: CYCLOBENZAPRINE 10 MG TAB PO SCH (20:24)
[2022-04-03] MEDS: ATORVASTATIN 40 MG TAB PO SCH (20:24)
--- NOTE | 2022-04-03 22:40 | HP ---
HISTORY AND PHYSICAL HISTORY OF PRESENT ILLNESS: A 56-year-old white female came in with severe swelling of her extremities, lupus flare, possible congestive heart failure, severe hypokalemia, acute on chronic renal failure that is worsening, generalized body cramping, pleuritic chest pain. She had multiple potassium infusions over the last 2 or 3 days, it has not helped her. She has aching in her chest, pleuritic in nature. She does not feel like a blood clot, though she states Persantine test is pending. MEDICINES: 1. Eliquis 5 mg b.i.d. 2. Lipitor 40 mg daily. 3. Bumex 2 mg b.i.d. 4. Zoloft 200 mg daily. 5. Gabapentin 300 t.i.d. 6. Florinef 0.1 mg daily. 7. Ubrelvy 100 mg p.r.n. 8. BuSpar 10 b.i.d. 9. Requip 2 mg at night. 10.[place] 7.5 t.i.d. 11.ProAmatine 5 mg t.i.d. 12.Topamax 200 b.i.d. 13.Bentyl 20 q.i.d. 14.Antivert 12.5. ALLERGIES: Please see chart. REVIEW OF SYSTEMS: A 14-point review of systems otherwise negative. PAST SURGICAL HISTORY: Breast surgery, back surgery, , cholecystectomy, hysterectomy, and pacemaker. PHYSICAL EXAMINATION: VITAL SIGNS: Temperature 98.1, pulse 70, respiratory rate 18 to 20, blood pressure 109 to 113 over 70s. DIAGNOSES: 1. Severe hypokalemia is the diagnosis. 2. Atypical chest pain, rule out pulmonary embolism versus pneumonia. Chest x-ray is negative. 3. Mild pulmonary congestion. 4. She has an acute kidney injury with acute tubular necrosis, severe hypokalemia. 5. Pleuritic-type chest pain, rule out PE. Kidney doctors to see her for acute kidney injury. Pulmonary consult pending. Replace potassium. Please see further orders. MMODL / IJN: [id number] /
--- NOTE | 2022-04-03 23:06 | CT ---
EXAMINATION TYPE: CT chest wo con DATE OF EXAM: 04/03/2022 COMPARISON: None HISTORY: chest pain CT DLP: 254.8 mGycm Automated exposure control for dose reduction was used. Images obtained from the thoracic inlet to the diaphragm without contrast. There is some patchy bilateral posterior interstitial pulmonary infiltrates. No pleural effusion. Hea rt is enlarged. No significant pericardial fluid. There is cardiac surgery there are no hilar masses. No mediastinal adenopathy. There is some retained fluid material in the esophagus The thoracic spine is intact. No compression fracture. Sternum is intact. IMPRESSION: Cardiomegaly. There is tricuspid valve surgery. Retained food in the esophagus suggestive of esophage al dysfunction. No discrete mass seen. Bilateral posterior lower lobe pulmonary interstitial infiltrates.
[2022-04-04] MEDS: methylPREDNISolone SOD SUCCI 40 MG/ML 1 ML VIAL IV SCH ×3 (02:18→15:33)
[2022-04-04] MEDS: HYDROmorphone 0.5 MG/0.5 ML SYRINGE IVP PRN ×5 (04:56→20:40)
[2022-04-04] MEDS: MIDODRINE 5 MG TAB PO SCH ×3 (06:19→16:52)
[2022-04-04] MEDS: IPRATROPIUM 0.5 MG/2.5 ML NEBU INHALATION SCH ×4 (08:17→19:59)
[2022-04-04] MEDS: SYMBICORT 160-4.5 MCG INHALER INHALATION SCH ×2 (08:17→19:59)
[2022-04-04] MEDS: TOPIRAMATE 100 MG TAB PO SCH ×2 (08:46→20:38)
[2022-04-04] MEDS: busPIRone HCl 5 MG TAB PO SCH ×2 (08:46→20:39)
[2022-04-04] MEDS: POTASSIUM CHLORIDE ER 20 MEQ TAB.ER PO SCH ×2 (08:46→20:40)
[2022-04-04] MEDS: GABAPENTIN 300 MG CAP PO SCH ×3 (08:46→20:38)
[2022-04-04] MEDS: APIXABAN 5 MG TAB PO SCH ×2 (08:46→20:39)
[2022-04-04] MEDS: LORATADINE 10 MG TAB PO SCH (08:46)
[2022-04-04] MEDS: SERTRALINE 100 MG TAB PO SCH (08:46)
[2022-04-04] MEDS: FLUDROCORTISONE 0.1 MG TAB PO SCH (08:57)
[2022-04-04 11:56] LABS: Glucose,Whole Blood 172 mg/dL (70-110)
[2022-04-04] MEDS: HYDROcodone/APAP 7.5-325MG 1 EACH TAB PO PRN (12:02)
[2022-04-04 12:56] LABS: Basophils % (A) 0 %; Eosinophils % (A) 0 %; HCT 38.3 % (34.0-46.0); Lymphocytes # (A) 0.5 k/uL (1.0-4.8); Lymphocytes % (A) 7 %; MCH 31.6 pg (25.0-35.0); MCV 92.9 fL (80.0-100.0); Mean Platelet Volume 9.1; Monocytes # (A) 0.2 k/uL (0-1.0); Monocytes % (A) 2 %; Neutrophils # (A) 7.5 k/uL (1.3-7.7); Neutrophils % (A) 91 %; Platelet Count 248 k/uL (150-450); RBC 4.12 m/uL (3.80-5.40); RDW 13.1 % (11.5-15.5); WBC 8.2 k/uL (3.8-10.6)
[2022-04-04 13:18] LABS: Albumin 4.6 g/dL (3.5-5.0); Calcium 9.2 mg/dL (8.4-10.2); Total Bilirubin 0.4 mg/dL (0.2-1.3); Total Protein 7.3 g/dL (6.3-8.2)
--- NOTE | 2022-04-04 13:25 | P.PN ---
Subjective Patient is seen for follow-up for acute kidney injury and hypokalemia. Patient has recently moved from [place] and and she is establishing care here. 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 Patient also has a subsequent history of PE. Patient reports history of chronic hypokalemia also way back to her childhood. She does take diuretics at home prior to admission for diagnosis of CHF. History of chronic hypotension with history of decreased pituitary function per patient. She is maintained on Florinef but not on Cortef. Patient has not seen an pumper gauger recently but did see one many years ago. Status post IV fluids with improvement in renal function with creatinine down to 1.3 from 1.7. Potassium is improved to 3.5. Complaining of chest pain today which gets worse on deep breath. Objective - Vital Signs Vital signs: Vital Signs Temp 97.7 F 04/04/22 04:00 Pulse 74 04/04/22 12:05 Resp 18 04/04/22 12:05 BP 108/66 04/04/22 12:05 Pulse Ox 98 04/04/22 12:05 FiO2 Intake & Output 04/03/22 04/04/22 04/04/22 18:59 06:59 18:59 Intake Total 600 Balance 600 Intake: Oral 600 Other: Voiding Method Toilet Toilet Toilet # Voids 2 2 2 # Bowel Movements 0 - Exam Awake, comfortable, in no acute distress Alert oriented 3 Examination of the heart S1 and S2 Examination of the lungs bilateral breath sounds are heard Abdomen is soft nontender Examination lower extremity shows trace edema with 1+ edema in the upper extremities. 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 Acute kidney injury prerenal status post IV fluids. Improved. UA is benign. Blood pressure has been low 2. Chronic kidney disease baseline creatinine around 1.1-1.2 mg/dL. History of thromboembolic phenomena in 1 of the kidneys per patient. Right renal atrophy noted on ultrasound. 3. Hypokalemia associated with GI and urinary loss with diarrhea and use of diuretics. Need to rule out underlying renal wasting associated with RTA as patient states she was informed that she had low potassium levels during childhood as well. 4. History of antiphospholipid antibody syndrome associated with flu vaccine but subsequent history of PE and thromboembolic phenomenon in one of the kidneys per patient. 5. History of pyoderma gangrenosum 6. History of chronic hypotension maintained on midodrine and fludrocortisone as outpatient. Patient reports history of decreased pituitary function but she is not maintained on Cortef. Plan: Check random urine potassium to rule out renal potassium wasting. She has been off of Loop diuretics since admission. Continue off of IV fluids Resume low-dose diuretic starting tomorrow Replace potassium Patient will benefit from Cortef. Can start 10 mg by mouth twice a day. Patient also needs to follow-up with endocrinology post discharge for further follow-up of possible hypopituitarism.
[2022-04-04] MEDS ORDERED: diphenhydrAMINE 25 MG CAP PO PRN (13:41)
[2022-04-04 16:38] LABS: Glucose,Whole Blood 174 mg/dL (70-110)
[2022-04-04] MEDS: HYDROCORTISONE 20 MG TAB PO SCH ×2 (16:51→20:39)
[2022-04-04] MEDS: INSULIN ASPART (NovoLOG) 100 UNIT/ML VIAL SQ SCH ×2 (16:51→22:03)
[2022-04-04] MEDS: diphenhydrAMINE 50 MG/ML 1 ML VIAL IVP PRN (16:52)
[2022-04-04 20:32] LABS: Glucose,Whole Blood 170 mg/dL (70-110)
[2022-04-04] MEDS: ATORVASTATIN 40 MG TAB PO SCH (20:37)
[2022-04-04] MEDS: CYCLOBENZAPRINE 10 MG TAB PO SCH (20:38)
--- NOTE | 2022-04-05 01:08 | PN ---
PROGRESS NOTE SUBJECTIVE: A white female with cortisol level of 5. We are going to take her off fludrocortisone and give her Cortef 20 b.i.d.. We will replace her potassium. She is currently on 40 b.i.d. for hypokalemia. She has been rehydrated. Creatinine is down to 1.3 from 1.7. Patient is doing much better at this time. OBJECTIVE: CARDIOVASCULAR: S1, S2. LUNGS: Clear. GI: Soft. HEMATOLOGIC: Negative Homans'. PSYCH: Fair mood and affect. IMAGING: CAT scan is negative for DVT. ASSESSMENT: 1. Pleurisy. 2. Adrenal insufficiency. 3. Fibromyalgia. 4. Vertigo. 5. Orthostatic hypotension. 6. Multiple medical conditions including lupus, fibromyalgia, adrenal insufficiency, depression, restless legs syndrome. PLAN: Prognosis is guarded. Possibly sent home in the morning if her potassium stabilized. We will start her on Cortef, and if she stabilized, we will send her home in the morning. We will give her Benadryl for migraines. She did not carry her migraine medicine here in the hospital at this time. MMODL / IJN: [id number] /
[2022-04-05] MEDS: diphenhydrAMINE 50 MG/ML 1 ML VIAL IVP PRN ×4 (01:30→23:03)
[2022-04-05] MEDS: methylPREDNISolone SOD SUCCI 40 MG/ML 1 ML VIAL IV SCH ×4 (01:30→23:03)
[2022-04-05] MEDS: HYDROmorphone 0.5 MG/0.5 ML SYRINGE IVP PRN ×4 (04:40→19:53)
[2022-04-05 06:15] LABS: Glucose,Whole Blood 142 mg/dL (70-110)
[2022-04-05] MEDS: INSULIN ASPART (NovoLOG) 100 UNIT/ML VIAL SQ SCH ×4 (06:22→22:45)
[2022-04-05] MEDS: MIDODRINE 5 MG TAB PO SCH ×3 (06:23→16:48)
[2022-04-05] MEDS: SYMBICORT 160-4.5 MCG INHALER INHALATION SCH ×2 (07:23→20:04)
[2022-04-05] MEDS: IPRATROPIUM 0.5 MG/2.5 ML NEBU INHALATION SCH ×4 (07:23→20:04)
[2022-04-05] MEDS ORDERED: FLUDROCORTISONE 0.1 MG TAB PO SCH (09:00)
[2022-04-05] MEDS: TOPIRAMATE 100 MG TAB PO SCH ×2 (09:45→19:52)
[2022-04-05] MEDS: POTASSIUM CHLORIDE ER 20 MEQ TAB.ER PO SCH ×2 (09:45→19:51)
[2022-04-05] MEDS: SERTRALINE 100 MG TAB PO SCH (09:46)
[2022-04-05] MEDS: busPIRone HCl 5 MG TAB PO SCH ×2 (09:46→19:52)
[2022-04-05] MEDS: APIXABAN 5 MG TAB PO SCH ×2 (09:46→19:52)
[2022-04-05] MEDS: LORATADINE 10 MG TAB PO SCH (09:46)
[2022-04-05] MEDS: HYDROCORTISONE 20 MG TAB PO SCH ×2 (09:46→19:53)
[2022-04-05] MEDS: GABAPENTIN 300 MG CAP PO SCH ×3 (09:46→19:52)
[2022-04-05] MEDS: HYDROcodone/APAP 7.5-325MG 1 EACH TAB PO PRN ×3 (09:49→23:02)
--- NOTE | 2022-04-05 10:17 | P.PN ---
Subjective Patient is seen in follow-up for acute kidney injury on chronic kidney disease and hypokalemia. Renal function and potassium level both improved. Complaining of swelling in her upper extremities. Denies chest pain or shortness of breath. Good urine output. Vital signs are stable. General: Awake. No acute distress. HEENT: Head exam is unremarkable. LUNGS: Breath sounds decreased. HEART: Rate and Rhythm are regular. ABDOMEN: Soft, no distention. EXTREMITITES: 1+ edema. Swelling of hands noted as well. Objective - Vital Signs Vital signs: Vital Signs Temp 97.7 F 04/05/22 04:00 Pulse 65 04/05/22 09:56 Resp 17 04/05/22 09:56 BP 126/80 04/05/22 09:56 Pulse Ox 97 04/05/22 09:56 FiO2 Intake & Output 04/04/22 04/05/22 04/05/22 18:59 06:59 18:59 Intake Total 118 Balance 118 Intake: Oral 118 Other: Voiding Method Toilet Toilet # Voids 1 1 - Labs CBC & Chem 7: 04/04/22 11:21 04/04/22 11:21 Labs: Abnormal Lab Results - Last 24 Hours (Table) 04/04/22 04/04/22 04/04/22 Range/Units 11:21 11:21 11:55 Lymphocytes # 0.5 L (1.0-4.8) k/uL BUN 25 H (7-17) mg/dL Creatinine 1.30 H (0.52-1.04) mg/dL Glucose 155 H (74-99) mg/dL POC Glucose (mg/dL) 172 H (70-110) mg/dL Ur Random Potassium (25.0-125.0) mmol/L 04/04/22 04/04/22 04/04/22 Range/Units 15:30 16:36 20:31 Lymphocytes # (1.0-4.8) k/uL BUN (7-17) mg/dL Creatinine (0.52-1.04) mg/dL Glucose (74-99) mg/dL POC Glucose (mg/dL) 174 H 170 H (70-110) mg/dL Ur Random Potassium 130.1 H (25.0-125.0) mmol/L 04/05/22 Range/Units 06:13 Lymphocytes # (1.0-4.8) k/uL BUN (7-17) mg/dL Creatinine (0.52-1.04) mg/dL Glucose (74-99) mg/dL POC Glucose (mg/dL) 142 H (70-110) mg/dL Ur Random Potassium (25.0-125.0) mmol/L Assessment and Plan Plan: Assessment: 1. Acute kidney injury mostly prerenal improved with IV hydration. Creatinine 1.3 yesterday. 2. Chronic kidney disease stage IIIa with baseline creatinine 1.1-1.2 secondary to solitary functioning left kidney. UA benign. Atrophic right kidney noted on ultrasound. 3. Hypokalemia from use of diuretics as well as Florinef. However patient states she's had low potassium levels even before she was on diuretics and Florinef. She may benefit from genetic testing outpatient. Patient states she has been worked up at [facility] in the past. Urine potassium noted to be high suggesting renal potassium wasting. 4. History of antiphospholipid antibody syndrome associated with flu vaccine with history of multiple PEs maintained on anticoagulation. 5. Chronic hypotension maintained on midodrine and fludrocortisone outpatient. Now on Cortef. 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 Cortisol level 5 dated 04/30/2022. 6. Volume overload. Plan: Resume Bumex 2 mg once daily. Maintain potassium supplementation. Maintain Cortef. Hold midodrine for systolic blood pressure greater than 1:15. Patient will need to follow-up with endocrinology outpatient. Morning labs pending.
[2022-04-05] MEDS: BUMETANIDE 1 MG TAB PO SCH (10:52)
[2022-04-05 11:20] LABS: Basophils % (A) 0 %; Eosinophils % (A) 0 %; HCT 36.9 % (34.0-46.0); HGB 12.2 gm/dL (11.4-16.0); Lymphocytes # (A) 0.7 k/uL (1.0-4.8); Lymphocytes % (A) 7 %; MCH 31.1 pg (25.0-35.0); MCHC 33.1 g/dL (31.0-37.0); MCV 94.1 fL (80.0-100.0); Mean Platelet Volume 8.7; Monocytes # (A) 0.4 k/uL (0-1.0); Monocytes % (A) 4 %; Neutrophils # (A) 8.9 k/uL (1.3-7.7); Neutrophils % (A) 87 %; Platelet Count 233 k/uL (150-450); RBC 3.92 m/uL (3.80-5.40); RDW 13.2 % (11.5-15.5); WBC 10.3 k/uL (3.8-10.6)
[2022-04-05 11:39] LABS: Albumin 4.2 g/dL (3.5-5.0); Total Bilirubin 0.4 mg/dL (0.2-1.3); Total Protein 6.9 g/dL (6.3-8.2)
[2022-04-05 12:03] LABS: Glucose,Whole Blood 135 mg/dL (70-110)
[2022-04-05 16:40] LABS: Glucose,Whole Blood 295 mg/dL (70-110)
[2022-04-05] MEDS: CYCLOBENZAPRINE 10 MG TAB PO SCH (19:51)
[2022-04-05] MEDS: ATORVASTATIN 40 MG TAB PO SCH (19:52)
[2022-04-05 20:16] LABS: Glucose,Whole Blood 136 mg/dL (70-110)
[2022-04-06] MEDS: HYDROmorphone 0.5 MG/0.5 ML SYRINGE IVP PRN ×4 (04:03→16:13)
[2022-04-06 04:35] VITALS: RESP 16
[2022-04-06] MEDS: HYDROcodone/APAP 7.5-325MG 1 EACH TAB PO PRN ×2 (06:02→14:41)
[2022-04-06] MEDS: MIDODRINE 5 MG TAB PO SCH ×2 (06:02→12:12)
[2022-04-06] MEDS: diphenhydrAMINE 50 MG/ML 1 ML VIAL IVP PRN ×2 (06:07→12:13)
[2022-04-06 06:08] LABS: Glucose,Whole Blood 130 mg/dL (70-110)
[2022-04-06] MEDS ORDERED: LORazepam 1 MG TAB PO PRN (06:11)
[2022-04-06] MEDS: INSULIN ASPART (NovoLOG) 100 UNIT/ML VIAL SQ SCH ×2 (07:56→12:10)
[2022-04-06] MEDS: POTASSIUM CHLORIDE ER 20 MEQ TAB.ER PO SCH (08:05)
[2022-04-06] MEDS: LORATADINE 10 MG TAB PO SCH (08:05)
[2022-04-06] MEDS: SERTRALINE 100 MG TAB PO SCH (08:05)
[2022-04-06] MEDS: busPIRone HCl 5 MG TAB PO SCH (08:05)
[2022-04-06] MEDS: TOPIRAMATE 100 MG TAB PO SCH (08:05)
[2022-04-06] MEDS: HYDROCORTISONE 20 MG TAB PO SCH (08:05)
[2022-04-06] MEDS: APIXABAN 5 MG TAB PO SCH (08:05)
[2022-04-06] MEDS: GABAPENTIN 300 MG CAP PO SCH ×2 (08:05→16:13)
[2022-04-06] MEDS: BUMETANIDE 1 MG TAB PO SCH (08:05)
[2022-04-06] MEDS: IPRATROPIUM 0.5 MG/2.5 ML NEBU INHALATION SCH ×3 (08:31→16:02)
[2022-04-06] MEDS: SYMBICORT 160-4.5 MCG INHALER INHALATION SCH (08:31)
[2022-04-06 09:01] LABS: Calcium 8.8 mg/dL (8.4-10.2); Magnesium 2.4 mg/dL (1.6-2.3); Potassium 4.4 mmol/L (3.5-5.1)
--- NOTE | 2022-04-06 11:02 | P.PN ---
Subjective Patient is seen in follow-up for acute kidney injury on chronic kidney disease and hypokalemia. Renal function fairly stable. Currently on oral Bumex. Swelling improved but still feels like she is carrying weight in her abdomen. Denies chest pain or shortness of breath. Has been voiding. Vital signs are stable. General: Awake. No acute distress. HEENT: Head exam is unremarkable. LUNGS: Breath sounds decreased. HEART: Rate and Rhythm are regular. ABDOMEN: Soft, no distention. EXTREMITITES: 1+ edema. Swelling of hands noted as well. Objective - Vital Signs Vital signs: Vital Signs Temp 98.1 F 04/06/22 07:57 Pulse 77 04/06/22 08:46 Resp 16 04/06/22 08:46 BP 130/85 04/06/22 07:57 Pulse Ox 99 04/06/22 08:32 FiO2 Intake & Output 04/05/22 04/06/22 04/06/22 18:59 06:59 18:59 Intake Total 298 0 Balance 298 0 Intake: Oral 298 0 Other: Voiding Method Toilet Toilet Toilet # Voids 2 2 1 - Labs CBC & Chem 7: 04/05/22 11:11 04/06/22 08:34 Labs: Abnormal Lab Results - Last 24 Hours (Table) 04/05/22 04/05/22 04/05/22 Range/Units 11:11 11:11 12:02 Neutrophils # 8.9 H (1.3-7.7) k/uL Lymphocytes # 0.7 L (1.0-4.8) k/uL Chloride (98-107) mmol/L BUN 25 H (7-17) mg/dL Creatinine 1.16 H (0.52-1.04) mg/dL Glucose 148 H (74-99) mg/dL POC Glucose (mg/dL) 135 H (70-110) mg/dL Magnesium (1.6-2.3) mg/dL 04/05/22 04/05/22 04/06/22 Range/Units 16:39 20:14 06:05 Neutrophils # (1.3-7.7) k/uL Lymphocytes # (1.0-4.8) k/uL Chloride (98-107) mmol/L BUN (7-17) mg/dL Creatinine (0.52-1.04) mg/dL Glucose (74-99) mg/dL POC Glucose (mg/dL) 295 H 136 H 130 H (70-110) mg/dL Magnesium (1.6-2.3) mg/dL 04/06/22 Range/Units 08:34 Neutrophils # (1.3-7.7) k/uL Lymphocytes # (1.0-4.8) k/uL Chloride 110 H (98-107) mmol/L BUN 26 H (7-17) mg/dL Creatinine 1.24 H (0.52-1.04) mg/dL Glucose 111 H (74-99) mg/dL POC Glucose (mg/dL) (70-110) mg/dL Magnesium 2.4 H (1.6-2.3) mg/dL Assessment and Plan Plan: Assessment: 1. Acute kidney injury mostly prerenal improved with IV hydration. Creatinine creatinine 1.24 today. 2. Chronic kidney disease stage IIIa with baseline creatinine 1.1-1.2 secondary to solitary functioning left kidney. UA benign. Atrophic right kidney noted on ultrasound. 3. Hypokalemia from use of diuretics as well as Florinef. However patient states she's had low potassium levels even before she was on diuretics and Florinef. She may benefit from genetic testing outpatient. Patient states she has been worked up at [facility] in the past. Urine potassium noted to be high suggesting renal potassium wasting. 4. History of antiphospholipid antibody syndrome associated with flu vaccine with history of multiple PEs maintained on anticoagulation. 5. Chronic hypotension maintained on midodrine and fludrocortisone outpatient. Now on Cortef. 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 Cortisol level 5 dated 04/30/2022. 6. Volume overload. Plan: Increase Bumex to 2 mg twice daily. Maintain potassium supplementation. Maintain Cortef. Hold midodrine for systolic blood pressure greater than 115. Patient will need to follow-up with endocrinology outpatient. Advised patient to follow low salt diet and 40-45 pounds fluid restriction per day upon discharge. She was also advised to monitor weight closely at home and to take an additional dose of Bumex for 2 days if notices more than 4-5 pound weight gain in 1 week duration.
[2022-04-06 11:57] LABS: Glucose,Whole Blood 105 mg/dL (70-110)
[2022-04-06 15:28] VITALS: BP 120/74; PULSE 71; TEMP 98.2
[2022-04-06] MEDS ORDERED: BUMETANIDE 1 MG TAB PO SCH (16:00)
== END 2022-04-06 16:42 | disposition home or self-care (01) | DRG 640 ==
LOC: EC 09:14 → 3SCARD 15:41
PROVIDERS: ADMIT Family Medicine; ATTEND Family Medicine
DX: E87.6 Hypokalemia (principal); N17.0 Acute kidney failure with tubular necrosis; D68.61 Antiphospholipid syndrome; E27.40 Unspecified adrenocortical insufficiency; L88 Pyoderma gangrenosum; I50.9 Heart failure, unspecified; N18.31 Chronic kidney disease, stage 3a; Z20.822 Contact with and (suspected) exposure to COVID-19; Z28.310 Unvaccinated for COVID-19; I95.1 Orthostatic hypotension; K58.0 Irritable bowel syndrome with diarrhea; F32.A Depression, unspecified; F41.9 Anxiety disorder, unspecified; R09.1 Pleurisy; M79.7 Fibromyalgia; G25.81 Restless legs syndrome; N26.1 Atrophy of kidney (terminal); Z79.01 Long term (current) use of anticoagulants; Z79.52 Long term (current) use of systemic steroids; Z79.899 Other long term (current) drug therapy; Z86.711 Personal history of pulmonary embolism; Z86.16 Personal history of COVID-19; Z95.0 Presence of cardiac pacemaker; Z88.5 Allergy status to narcotic agent; Z88.0 Allergy status to penicillin; Z88.8 Allergy status to other drugs, medicaments and biological substances; Z88.1 Allergy status to other antibiotic agents; Z91.040 Latex allergy status
CPT/HCPCS: 36415; 71046; 71250; 76770; 78582; 80048; 80053; 81001; 82150; 82533; 83690; 83735; 84133; 84484; 85025; 85610; 85730; 87502; 87635; 93005; 94640; 94760; 96361; 96374; 96375; 96376; 99285

== ENCOUNTER 2022-04-12 12:47 | Observation (INO) | payer BC, MEDICARE ==
[2022-04-12] MEDS ORDERED: SODIUM CHLORIDE 0.9% 1,000 ML IV ONE (14:04)
[2022-04-12] MEDS ORDERED: ONDANSETRON 4 MG/2 ML VIAL IVP STA ×2 (14:04→18:18)
--- NOTE | 2022-04-12 14:05 | ED ---
Chest Pain HPI - General Source: patient Mode of arrival: wheelchair Limitations: no limitations <Norris Hamilton - Last Filed: 04/12/22 14:03> <Indra Krishnan - Last Filed: 04/12/22 19:08> - General Chief Complaint: Chest Pain Stated Complaint: hypotension, abn labs Time Seen by Provider: 04/12/22 17:30 - History of Present Illness Initial Comments: This is a 56-year-old female presents emergency Department with chief complaint of muscle cramps, chest pain. Patient states her blood pressure has been running lower than usual. Patient does have past medical history significant for antiphospholipid antibody syndrome with multiple PEs, prior nephrectomy, lupus, chronic hypokalemia. Patient states that she was just discharged afterA4 hypokalemia, chest pain. Patient states she feels exactly same. Patient states she only has one kidney followed by Dr. Morales she does see cardiology currently. Patient states she feels like potassium is low she complains of cramping pain. Patient denies any fevers chills no cough or cold like symptoms. She does complain of mild chest pressure. Patient states her billet sawyer is Dr. Govea. She does admit to nausea without vomiting or diarrhea. (Norris Hamilton) - Related Data Home Medications Medication Instructions Recorded Confirmed Apixaban [Eliquis] 5 mg PO BID 09/24/21 04/12/22 Atorvastatin [Lipitor] 40 mg PO HS 09/24/21 04/12/22 Bumetanide [BUMEX] 2 mg PO BID 09/24/21 04/12/22 Cetirizine HCl 10 mg PO DAILY 09/24/21 04/12/22 Cholestyramine (with Sugar) 4 gm PO DAILY PRN 09/24/21 04/12/22 [Cholestyramine Packet] Gabapentin 300 mg PO TID 09/24/21 04/12/22 Potassium Chloride ER [K-Dur 20] 40 meq PO BID 09/24/21 04/12/22 Sertraline [Zoloft] 200 mg PO DAILY 09/24/21 04/12/22 Sucralfate 1 gm PO AC-TID 09/24/21 04/12/22 Ubrogepant [Ubrelvy] 100 mg PO BID PRN 09/24/21 04/12/22 busPIRone HCl [Buspar] 10 mg PO BID 09/24/21 04/12/22 rOPINIRole HCL [Requip] 2 mg PO HS 09/24/21 04/12/22 Budesonide/Glycopyr/Formoterol 1 puff INHALATION RT-BID 03/16/22 04/12/22 [Breztri Aerosphere Inhaler] Esomeprazole Magnesium [NexIUM] 40 mg PO DAILY 03/16/22 04/12/22 HYDROcodone/APAP 7.5-325MG [[place] [employer] 1 tab PO TID PRN 03/16/22 04/12/22 7.5-325] Midodrine [ProAmatine] 5 mg PO TID 03/16/22 04/12/22 Orphenadrine Citrate [Orphenadrine 100 mg PO HS 03/16/22 04/12/22 Citrate ER] Topiramate [Topamax] 200 mg PO BID 03/16/22 04/12/22 Botox 200unit Injection 1 dose INJ Q84D 04/02/22 04/12/22 Dicyclomine [Bentyl] 20 mg PO QID PRN 04/02/22 04/12/22 Meclizine [Antivert] 12.5 mg PO Q8H PRN 04/02/22 04/12/22 Previous Rx's Medication Instructions Recorded Hydrocortisone [Cortef] 20 mg PO BID 90 Days #180 tab 04/06/22 Allergies Allergy/AdvReac Type Severity Reaction Status Date / Time Penicillins Allergy Severe Anaphylaxis Verified 04/12/22 17:38 vancomycin Allergy Severe Swelling Verified 04/12/22 17:37 in lips latex Allergy Unknown Verified 04/12/22 17:37 morphine Allergy Unknown Verified 04/12/22 17:37 prochlorperazine Allergy Unknown Verified 04/12/22 17:37 [From Compazine] metoclopramide [From Reglan] AdvReac Unknown Verified 04/12/22 17:37 Review of Systems ROS Other: All systems not noted in ROS Statement are negative. <Norris Hamilton - Last Filed: 04/12/22 14:03> ROS Other: All systems not noted in ROS Statement are negative. <Indra Krishnan - Last Filed: 04/12/22 19:08> ROS Statement: Those systems with pertinent positive or pertinent negative responses have been documented in the HPI. EKG Findings - EKG Comments: EKG Findings:: EKG performed at 13:50 atrial paced rate of 74 PA 177 QRS 98 QT status QTC 424/451 - EKG Results: EKG: interpreted by ERMD <Norris Hamilton - Last Filed: 04/12/22 14:03> Past Medical History Past Medical History: Pulmonary Embolus (PE) Additional Past Medical History / Comment(s): LUPUS History of Any Multi-Drug Resistant Organisms: C-DIFF Date of last positivie culture/infection: 2021 MDRO Source:: Stool Past Surgical History: Back Surgery, Breast Surgery, Section, Cholecystectomy, Hysterectomy, Pacemaker Type of Cardiac Device: Unknown Device Placement Date:: unknown Past Psychological History: Anxiety Smoking Status: Never smoker Past Alcohol Use History: None Reported Past Drug Use History: Marijuana <Norris Hamilton - Last Filed: 04/12/22 14:03> General Exam Limitations: no limitations General appearance: alert, in no apparent distress Head exam: Present: atraumatic, normocephalic, normal inspection Eye exam: Present: normal appearance, PERRL, EOMI. Absent: scleral icterus, conjunctival injection, periorbital swelling ENT exam: Present: normal exam, normal oropharynx, mucous membranes moist Neck exam: Present: normal inspection, full ROM. Absent: tenderness, meningismus, lymphadenopathy Respiratory exam: Present: normal lung sounds bilaterally. Absent: respiratory distress, wheezes, rales, rhonchi, stridor Cardiovascular Exam: Present: regular rate, normal rhythm, normal heart sounds. Absent: systolic murmur, diastolic murmur, rubs, gallop, clicks GI/Abdominal exam: Present: soft, normal bowel sounds. Absent: distended, tenderness, guarding, rebound, rigid Neurological exam: Present: alert Skin exam: Present: warm, dry, intact, normal color. Absent: rash <Norris Hamilton - Last Filed: 04/12/22 14:03> Course Vital Signs 04/12/22 04/12/22 04/12/22 13:24 14:01 18:17 Temperature 98.1 F Pulse Rate 89 70 76 Respiratory 16 18 18 Rate Blood Pressure 92/55 122/82 114/88 O2 Sat by Pulse 98 96 96 Oximetry Chest Pain MDM <Indra Krishnan - Last Filed: 04/12/22 19:08> - [facility] Patient has a history of chronic pain, chronic hypokalemia which causes body cramping, pain that is diffuse which the patient is presenting today. States has been slowly getting worse over the last few days. Also believes that her blood pressures low she took at home and sit systolics in the 90s. She endorses diffuse pain. Denies any shortness of breath, vomiting but does endorse nausea. Denies diarrhea. Denies any fevers or chills or sick contacts. Denies any coughing. No known sick contacts. I have seen the patient for similar c omplaints in the past. He states this is identical to her typical symptoms. She states she has been compliant with her medications including blood thinning medications that she does have a history of PEs. However she states this does not seem to affect her potassium well, as it is still low at this time. She states she does have intermittent headaches as well and is due to have Botox injections which she is past due for, and she attributes having some intermittent worsening headaches to the lack of the Botox injections as well as causing her hypokalemia. She presents for further evaluation at this time. She was seen by the prior emergency department staff in the waiting room and workup was obtained. EKG showed no signs of hyperkalemia, acute ischemic process. Laboratory studies are remarkable for a mild leukocytosis of 14.4, as well as elevated hemoglobin of 16.0, which are both above baseline and likely secondary to mild dehydration. Patient does have a mild RUBEN and CK D with a BUN of 34 and 24.64. Patient is hypokalemic acutely at 2.8. Troponin is undetectable. Magnesium is within except for limits. Chest x-ray as interpreted by myself reveals no evidence of acute cardio pulmonary process, infiltrate. I evaluated the patient when she was placed in room 5. Vital signs within acceptable limits. I updated her on the results of her workup. She will be given potassium supplementation, some IV fluids, as well as additional pain and antiemetics. We'll admit her for further monitoring as well as replacement of her potassium and for pain control. She was in agreement this plan. I spoke with Dr. Hassan who was in agreement with this plan. Nephrology was consulted. Patient was admitted in stable condition. (Indra Krishnan) Disposition <Norris Hamilton - Last Filed: 04/12/22 14:03> Time of Disposition: 17:50 <Indra Krishnan - Last Filed: 04/12/22 19:08> Clinical Impression: RUBEN (acute kidney injury), Muscle spasm, Hypokalemia Disposition: ADMITTED IP TO THIS HOSP Condition: Stable Referrals: Franklin Hassan MD [Primary Care Provider] - 1-2 days
[2022-04-12] MEDS ORDERED: HYDROmorphone 0.5 MG/0.5 ML SYRINGE IVP STA ×2 (14:11→18:18)
[2022-04-12 14:28] LABS: INR 1.1 (<1.2); Prothrombin Time 11.4 sec (9.0-12.0)
[2022-04-12 14:30] LABS: Albumin 5.1 g/dL (3.5-5.0); Calcium 9.6 mg/dL (8.4-10.2); Magnesium 2.5 mg/dL (1.6-2.3); Potassium 2.8 mmol/L (3.5-5.1); Total Bilirubin 0.6 mg/dL (0.2-1.3); Total Protein 8.5 g/dL (6.3-8.2)
[2022-04-12 14:35] LABS: Basophils % (A) 0 %; Eosinophils # (A) 0.1 k/uL (0-0.7); Eosinophils % (A) 1 %; HCT 45.8 % (34.0-46.0); Lymphocytes # (A) 1.5 k/uL (1.0-4.8); Lymphocytes % (A) 11 %; Mean Platelet Volume 8.3; Monocytes % (A) 7 %; Neutrophils # (A) 11.4 k/uL (1.3-7.7); Neutrophils % (A) 79 %; Platelet Count 316 k/uL (150-450); RBC 5.16 m/uL (3.80-5.40); RDW 12.8 % (11.5-15.5); WBC 14.4 k/uL (3.8-10.6)
[2022-04-12 14:41] LABS: MCV 88.8 fL (80.0-100.0)
--- NOTE | 2022-04-12 15:57 | XR ---
EXAMINATION TYPE: XR chest 2V DATE OF EXAM: 04/12/2022 COMPARISON: 04/02/2022 HISTORY: Shortness of breath TECHNIQUE: Frontal and lateral views of the chest are obtained. FINDINGS: Scattered senescent parenchymal changes noted. Hyperinflation compatible with COPD. No evidence for infiltrate. No evidence for atelectasis. Heart size is stable. Mediastinal structures are stable and grossly unremarkable. No evidence for hilar prominence. Degenerative changes dorsal spine. IMPRESSION: 1. No evidence for acute pulmonary disease.
[2022-04-12] MEDS ORDERED: POTASSIUM CHLORIDE 20 MEQ in WATER FOR INJECTION 1 100ML.BAG IVPB STA (17:23)
[2022-04-12] MEDS ORDERED: SODIUM CHLORIDE 0.9% 500 ML 500 ML IV STA (17:49)
[2022-04-12] MEDS: POTASSIUM CHLORIDE 10 MEQ in WATER FOR INJECTION 1 100ML.BAG IVPB SCH ×3 (18:16→22:44)
[2022-04-12] MEDS ORDERED: NALOXONE 0.4 MG/ML 1 ML VIAL IV PRN (19:00)
[2022-04-12] MEDS ORDERED: PATIENT'S OWN (Ubrogepant [Ubrelvy] 100 MG Tablet) PO PRN (19:03)
[2022-04-12] MEDS ORDERED: DICYCLOMINE 20 MG TAB PO PRN (19:03)
[2022-04-12] MEDS ORDERED: NON FORMULARY DRUG (Budesonide/Glycopyr/Formoterol [Breztri Aerosphere Inhaler] 10.7 GM Gm INHALATION SCH (20:00)
[2022-04-12] MEDS ORDERED: diphenhydrAMINE 50 MG/ML 1 ML VIAL IVP STA (20:05)
[2022-04-12] MEDS: IPRATROPIUM 0.5 MG/2.5 ML NEBU INHALATION SCH ×2 (21:08→21:09)
[2022-04-12] MEDS: SYMBICORT 160-4.5 MCG INHALER INHALATION SCH (21:08)
[2022-04-12 21:20] LABS: Appearance,Urine Clear (Clear); Bilirubin,Urine Negative (Negative); Blood,Urine Negative (Negative); Color,Urine Light Yellow; Glucose,Urine (UA) Negative (Negative); Ketones,Urine Negative (Negative); Leukocyte Esterase,Urine Negative (Negative); Nitrite,Urine Negative (Negative); Protein,Urine Negative (Negative); Specific Gravity,Urine 1.012 (1.001-1.035); Urobilinogen,Urine <2.0 mg/dL (<2.0)
[2022-04-12] MEDS: ATORVASTATIN 40 MG TAB PO SCH (21:31)
[2022-04-12] MEDS: HYDROCORTISONE 20 MG TAB PO SCH (21:31)
[2022-04-12] MEDS: APIXABAN 5 MG TAB PO SCH (21:31)
[2022-04-12] MEDS: POTASSIUM CHLORIDE ER 20 MEQ TAB.ER PO SCH (21:31)
[2022-04-12] MEDS: BUMETANIDE 1 MG TAB PO SCH ×2 (21:31→21:32)
[2022-04-12] MEDS: CYCLOBENZAPRINE 10 MG TAB PO SCH (21:32)
[2022-04-12] MEDS: GABAPENTIN 300 MG CAP PO SCH (21:32)
[2022-04-12] MEDS: TOPIRAMATE 100 MG TAB PO SCH (21:32)
[2022-04-12] MEDS: busPIRone HCl 5 MG TAB PO SCH (21:32)
[2022-04-12] MEDS: HYDROmorphone 0.5 MG/0.5 ML SYRINGE IVP PRN (22:26)
[2022-04-13] MEDS: POTASSIUM CHLORIDE 10 MEQ in WATER FOR INJECTION 1 100ML.BAG IVPB SCH (02:00)
[2022-04-13] MEDS: HYDROmorphone 0.5 MG/0.5 ML SYRINGE IVP PRN ×4 (03:48→21:54)
[2022-04-13] MEDS: MECLIZINE 12.5 MG TAB PO PRN ×2 (03:49→14:52)
[2022-04-13 06:21] LABS: Basophils % (A) 0 %; Eosinophils # (A) 0.1 k/uL (0-0.7); Eosinophils % (A) 1 %; HCT 45.9 % (34.0-46.0); HGB 15.6 gm/dL (11.4-16.0); Lymphocytes % (A) 10 %; MCV 91.3 fL (80.0-100.0); Mean Platelet Volume 8.6; Monocytes # (A) 0.6 k/uL (0-1.0); Monocytes % (A) 7 %; Neutrophils # (A) 7.4 k/uL (1.3-7.7); Neutrophils % (A) 80 %; Platelet Count 248 k/uL (150-450); RBC 5.03 m/uL (3.80-5.40); RDW 12.6 % (11.5-15.5); WBC 9.2 k/uL (3.8-10.6)
[2022-04-13 06:25] LABS: African American GFR (CKD) 45 (>60 ml/min/1.73 sqM); Anion Gap 17 mmol/L; Blood Urea Nitrogen 34 mg/dL (7-17); Calcium 9.1 mg/dL (8.4-10.2); Carbon Dioxide 25 mmol/L (22-30); Chloride 95 mmol/L (98-107); Glucose 128 mg/dL (74-99); Non-African American GFR(CKD) 39 (>60 ml/min/1.73 sqM); Potassium 3.5 mmol/L (3.5-5.1); Sodium 137 mmol/L (137-145)
[2022-04-13] MEDS: MIDODRINE 5 MG TAB PO SCH ×3 (07:25→17:15)
[2022-04-13] MEDS: SYMBICORT 160-4.5 MCG INHALER INHALATION SCH ×2 (08:00→20:15)
[2022-04-13] MEDS: IPRATROPIUM 0.5 MG/2.5 ML NEBU INHALATION SCH ×5 (08:01→20:15)
[2022-04-13] MEDS: PANTOPRAZOLE 40 MG TABLET PO SCH (08:38)
[2022-04-13] MEDS: TOPIRAMATE 100 MG TAB PO SCH ×2 (08:38→20:37)
[2022-04-13] MEDS: SERTRALINE 100 MG TAB PO SCH (08:39)
[2022-04-13] MEDS: GABAPENTIN 300 MG CAP PO SCH ×3 (08:40→20:38)
[2022-04-13] MEDS: busPIRone HCl 5 MG TAB PO SCH ×2 (08:40→20:38)
[2022-04-13] MEDS: APIXABAN 5 MG TAB PO SCH ×2 (08:40→20:37)
[2022-04-13] MEDS: LORATADINE 10 MG TAB PO SCH (08:41)
[2022-04-13] MEDS: POTASSIUM CHLORIDE ER 20 MEQ TAB.ER PO SCH ×2 (08:41→20:37)
[2022-04-13] MEDS ORDERED: diphenhydrAMINE 50 MG/ML 1 ML VIAL IVP STA (09:27)
[2022-04-13] MEDS ORDERED: ONDANSETRON 4 MG/2 ML VIAL IVP STA (09:28)
[2022-04-13] MEDS: HYDROCORTISONE 20 MG TAB PO SCH ×2 (10:10→20:37)
--- NOTE | 2022-04-13 12:20 | P.NPCON ---
History of Present Illness - Reason for Consult acute renal failure - History of Present Illness Patient is a 57-year-old female with history of chronic kidney disease associated with solitary kidney, NKF stage III with baseline creatinine 1.1-1.2 mg/dL. Patient has recently moved from [place] and and she is establishing care here. 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 Patient also has a subsequent history of PE. Patient was hospitalized about 2 weeks ago with hypokalemia. She was started on Cortef and continued on the Florinef. 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 This admission patient is admitted with complaints of increased weakness, generalized body aches and low-grade fever. Patient reports increased urine output although no significant burning sensation noted. Serum potassium was 2.8 on admission and improved to 3.5 now and creatinine was 1.6 on initial admission improved to 1.48 today Patient is maintained on IV fluids. Review of Systems As per HPI Past Medical History Past Medical History: Blood Disorder, Pulmonary Embolus (PE), Renal Disease Additional Past Medical History / Comment(s): Antiphospholipid antibody syndrome which causes clots and bleeding, multiple PEs, R renal artery embolism/now atrophic, CKD stage III, hypotension, hypokalemia, lupus, pyoderm grangrenosum, decreased pituitary function pt states d/t clot, migraines, chonic cervical/back pain, herniated discs, RLS, vertigo. History of Any Multi-Drug Resistant Organisms: C-DIFF Date of last positivie culture/infection: 2021 MDRO Source:: Stool Past Surgical History: Back Surgery, Breast Surgery, Section, Cholecystectomy, Hysterectomy, Pacemaker Additional Past Surgical History / Comment(s): 2 pacemakers d/t bradycardia/hypotension with last one place in 2012 in [place], [place], 3 lower back surgeries, bilateral breast reduction. Past Anesthesia/Blood Transfusion Reactions: No Reported Reaction Type of Cardiac Device: Permanent Pacemaker, Unknown Device Placement Date:: 2012 Smoking Status: Never smoker - Past Family History Mother Additional Family Medical History / Comment(s): Mother at the age of 49 yrs after surgery for silicon breast implants with a leak that caused ARDS and DIC per pt Father Family Medical History: Cancer, Hyperlipidemia, Hypertension Additional Family Medical History / Comment(s): Father is a colon cancer survivor. Medications and Allergies Home Medications Medication Instructions Recorded Confirmed Type Apixaban [Eliquis] 5 mg PO BID 09/24/21 04/12/22 History Atorvastatin [Lipitor] 40 mg PO HS 09/24/21 04/12/22 History Bumetanide [BUMEX] 2 mg PO BID 09/24/21 04/12/22 History Cetirizine HCl 10 mg PO DAILY 09/24/21 04/12/22 History Cholestyramine (with Sugar) 4 gm PO DAILY PRN 09/24/21 04/12/22 History [Cholestyramine Packet] Gabapentin 300 mg PO TID 09/24/21 04/12/22 History Potassium Chloride ER [K-Dur 20] 40 meq PO BID 09/24/21 04/12/22 History Sertraline [Zoloft] 200 mg PO DAILY 09/24/21 04/12/22 History Sucralfate 1 gm PO AC-TID 09/24/21 04/12/22 History Ubrogepant [Ubrelvy] 100 mg PO BID PRN 09/24/21 04/12/22 History busPIRone HCl [Buspar] 10 mg PO BID 09/24/21 04/12/22 History rOPINIRole HCL [Requip] 2 mg PO HS 09/24/21 04/12/22 History Budesonide/Glycopyr/Formoterol 1 puff INHALATION RT-BID 03/16/22 04/12/22 History [Breztri Aerosphere Inhaler] Esomeprazole Magnesium [NexIUM] 40 mg PO DAILY 03/16/22 04/12/22 History HYDROcodone/APAP 7.5-325MG [[place] 1 tab PO TID PRN 03/16/22 04/12/22 History 7.5-325] Midodrine [ProAmatine] 5 mg PO TID 03/16/22 04/12/22 History Orphenadrine Citrate [Orphenadrine 100 mg PO HS 03/16/22 04/12/22 History Citrate ER] Topiramate [Topamax] 200 mg PO BID 03/16/22 04/12/22 History Botox 200unit Injection 1 dose INJ Q84D 04/02/22 04/12/22 History Dicyclomine [Bentyl] 20 mg PO QID PRN 04/02/22 04/12/22 History Meclizine [Antivert] 12.5 mg PO Q8H PRN 04/02/22 04/12/22 History Hydrocortisone [Cortef] 20 mg PO BID 90 Days #180 tab 04/06/22 04/12/22 Rx Allergies Allergy/AdvReac Type Severity Reaction Status Date / Time Penicillins Allergy Severe Anaphylaxis Verified 04/12/22 17:38 vancomycin Allergy Severe Swelling Verified 04/12/22 17:37 in lips latex Allergy Unknown Verified 04/12/22 17:37 morphine Allergy Unknown Verified 04/12/22 17:37 prochlorperazine Allergy Unknown Verified 04/12/22 17:37 [From Compazine] metoclopramide [From Reglan] AdvReac Unknown Verified 04/12/22 17:37 Physical Exam Vitals: Vital Signs Temp Pulse Resp BP Pulse Ox 04/13/22 12:00 73 16 106/77 74 L 04/13/22 10:08 69 16 104/67 96 04/13/22 09:41 73 20 115/78 97 04/13/22 08:37 70 18 130/88 96 04/13/22 07:21 98.7 F 73 18 118/87 98 04/13/22 03:47 81 18 118/86 99 04/12/22 21:21 80 04/12/22 21:09 84 04/12/22 19:58 75 18 112/65 97 04/12/22 18:17 76 18 114/88 96 04/12/22 14:01 70 18 122/82 96 04/12/22 13:24 98.1 F 89 16 92/55 98 Intake and Output 04/12/22 04/13/22 04/13/22 22:59 06:59 14:59 Other: Weight 67.585 kg Awake, comfortable, no acute distress Examination of the heart S1 and S2 Examination of the lungs bilateral breath sounds are heard Abdomen is soft nontender Examination lower extremity shows no evidence of edema 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 Acute kidney injury prerenal status post IV fluids. Improved. UA is benign. Blood pressure has been low 2. Chronic kidney disease baseline creatinine around 1.1-1.2 mg/dL. NKF stage IIIa History of thromboembolic phenomena in 1 of the kidneys per patient. Right renal atrophy noted on ultrasound. 3. Chronic hypokalemia. Need to rule out underlying renal wasting associated with RTA as patient states she was informed that she had low potassium levels during childhood as well. Random urine potassium noted at 130 during her last admission on 04/04/2022. This is high. Serum potassium at that time was 4.0. Recheck random urine potassium from yesterday as potassium was low at 2.8 yesterday. 4. History of antiphospholipid antibody syndrome associated with flu vaccine but subsequent history of PE and thromboembolic phenomenon in one of the kidneys per patient. 5. History of pyoderma gangrenosum 6. History of chronic hypotension maintained on midodrine and fludrocortisone as outpatient. Patient reports history of decreased pituitary function and she was started on Cortef during her last admission as her serum cortisol level was significantly low. Patient has not followed up with endocrinology yet. Plan: Repeat random urine potassium from the urine sample from yesterday as serum potassium was low at 2.8 yesterday Continue current potassium supplementation Continue with Cortef and midodrine Continue IV fluids Repeat labs in a.m. Patient is encouraged to see endocrinology as outpatient post discharge.
[2022-04-13] MEDS: BUMETANIDE 1 MG TAB PO SCH (17:14)
[2022-04-13 18:19] LABS: Glucose,Whole Blood 136 mg/dL (70-110)
[2022-04-13] MEDS: diphenhydrAMINE 50 MG/ML 1 ML VIAL IVP PRN (18:45)
[2022-04-13] MEDS: ATORVASTATIN 40 MG TAB PO SCH (20:37)
[2022-04-13] MEDS: CYCLOBENZAPRINE 10 MG TAB PO SCH (20:38)
[2022-04-14] MEDS: HYDROmorphone 0.5 MG/0.5 ML SYRINGE IVP PRN ×5 (02:28→20:50)
[2022-04-14] MEDS: diphenhydrAMINE 50 MG/ML 1 ML VIAL IVP PRN ×4 (02:28→21:16)
[2022-04-14] MEDS: MIDODRINE 5 MG TAB PO SCH ×3 (06:34→17:40)
[2022-04-14] MEDS: SYMBICORT 160-4.5 MCG INHALER INHALATION SCH ×2 (07:57→21:07)
[2022-04-14] MEDS: IPRATROPIUM 0.5 MG/2.5 ML NEBU INHALATION SCH ×4 (08:04→21:14)
[2022-04-14] MEDS: TOPIRAMATE 100 MG TAB PO SCH ×2 (08:44→20:36)
[2022-04-14] MEDS: POTASSIUM CHLORIDE ER 20 MEQ TAB.ER PO SCH ×4 (08:44→20:36)
[2022-04-14] MEDS: SERTRALINE 100 MG TAB PO SCH (08:44)
[2022-04-14] MEDS: busPIRone HCl 5 MG TAB PO SCH ×2 (08:44→20:36)
[2022-04-14] MEDS: GABAPENTIN 300 MG CAP PO SCH ×3 (08:45→21:00)
[2022-04-14] MEDS: HYDROCORTISONE 20 MG TAB PO SCH ×2 (08:45→20:40)
[2022-04-14] MEDS: BUMETANIDE 1 MG TAB PO SCH ×2 (08:45→16:00)
[2022-04-14] MEDS: APIXABAN 5 MG TAB PO SCH ×2 (08:45→20:41)
[2022-04-14] MEDS: LORATADINE 10 MG TAB PO SCH (08:45)
[2022-04-14] MEDS: PANTOPRAZOLE 40 MG TABLET PO SCH (08:45)
[2022-04-14 10:48] LABS: Basophils # (A) 0.01 X 10*3/uL (0.00-0.10); Basophils % (A) 0.1 %; Eosinophils # (A) 0.08 X 10*3/uL (0.04-0.35); Eosinophils % (A) 1.2 %; HCT 38.2 % (37.2-46.3); HGB 12.2 g/dL (12.0-15.0); Immature Grans, Automated 0.3 %; Lymphocytes # (A) 1.03 X 10*3/uL (0.90-5.00); Lymphocytes % (A) 15.4 %; MCHC 31.9 g/dL (32.0-37.0); Mean Platelet Volume 10.7 fL (9.5-12.2); Monocytes % (A) 7.5 %; NRBC Per 100 WBC 0 /100 WBCS (0.0-0.0); Neutrophils # (A) 5.05 X 10*3/uL (1.80-7.70); Neutrophils % (A) 75.5 %; Platelet Count 197 X 10*3/uL (140-440); RBC 3.94 X 10*6/uL (4.10-5.20); RDW 12.4 % (11.5-14.5); WBC 6.69 X 10*3/uL (4.50-10.00)
[2022-04-14 11:46] LABS: Albumin 3.9 g/dL (3.8-4.9); Albumin/Globulin Ratio 1.97 (1.60-3.17); Anion Gap 14.4 mmol/L (10.00-18.00); BUN/Creat Ratio 17.56 Ratio (12.00-20.00); Blood Urea Nitrogen 23.7 mg/dL (9.0-27.0); Calcium 8.4 mg/dL (8.7-10.3); Carbon Dioxide 22.4 mmol/L (20.0-27.5); Non-African American GFR(CKD) 43.2 (60.0-200.0); Potassium 3.3 mmol/L (3.5-5.5); Total Bilirubin 0.3 mg/dL (0.30-1.20); Total Protein 5.9 g/dL (6.2-8.2)
[2022-04-14] MEDS: PATIENT'S OWN (Ubrogepant [Ubrelvy] 100 MG Tablet) PO PRN (12:13)
[2022-04-14] MEDS ORDERED: Potassium Replacement Protocol 1 EACH MISC MISCELLANE PRN (15:30)
--- NOTE | 2022-04-14 16:03 | P.PAINPG ---
Objective - Vital Signs Vital signs: Vital Signs Temp 97.7 F 04/14/22 07:00 Pulse 74 04/14/22 07:00 Resp 16 04/14/22 07:00 BP 111/71 04/14/22 07:00 Pulse Ox 100 04/14/22 07:00 FiO2 Intake & Output 04/13/22 04/14/22 04/14/22 18:59 06:59 18:59 Intake Total 500 Balance 500 Weight 67.585 kg Intake: Oral 500 Other: Voiding Method Toilet Toilet # Voids 1 1 1 - Labs CBC & Chem 7: 04/14/22 07:14 04/14/22 13:40 Labs: Abnormal Lab Results - Last 24 Hours (Table) 04/13/22 04/14/22 04/14/22 Range/Units 18:17 07:14 07:14 RBC 3.94 L (4.10-5.20) X 10*6/uL MCHC 31.9 L (32.0-37.0) g/dL Potassium 3.3 L (3.5-5.5) mmol/L Est GFR (CKD-EPI)AfAm 50.0 L (60.0-200.0) Est GFR (CKD-EPI)NonAf 43.2 L (60.0-200.0) Glucose 142 H (70-110) mg/dL POC Glucose (mg/dL) 136 H (70-110) mg/dL Calcium 8.4 L (8.7-10.3) mg/dL Total Protein 5.9 L (6.2-8.2) g/dL 04/14/22 Range/Units 13:40 RBC (4.10-5.20) X 10*6/uL MCHC (32.0-37.0) g/dL Potassium 3.1 L (3.5-5.5) mmol/L Est GFR (CKD-EPI)AfAm (60.0-200.0) Est GFR (CKD-EPI)NonAf (60.0-200.0) Glucose (70-110) mg/dL POC Glucose (mg/dL) (70-110) mg/dL Calcium (8.7-10.3) mg/dL Total Protein (6.2-8.2) g/dL PQRS Measure Charge Sheet Comment: HISTORY OF PRESENT ILLNESS: 57 yr old female admitted for Chest Pain secondary to Hypokalemia and ARF as a referral from Dr Hassan presents today w severe and chronic RINALDI pain secondary to Occipital Neuralgia for evaluation. Pt states pain level is at 8 /10 in intensity, constant, localized in the base of the head, sharp/ achy in character w shooting pain towards the BL scalp up towards the top of her head. Pain is provoked by sounds, bright lights, stress, lack of sleep, hyperextension and rotation. Pain is alleviated by BL EHSAN injections in the past, Botox injections from Dr Indra Aguirre in [facility] for Migraine HAs, medications, repositioning and rest. PMH: Anti-phospholipid Antibody Syndrome, PE, R Renal Artery Embolism, CKD III PSH: Lumbar Surgery x3, BL Breast Reduction Surgery, Section, Cholecys tectomy, Hysterectomy, Pacemaker (2012) SH: Never smoker FH: Mo- ARDS/ DIC secondary to Breast Implant leakage/ age 48. Fa- Colon CA/ CAD. All: See list Meds: See list REVIEW OF ORGAN SYSTEMS: CONSTITUTIONAL: No fevers or chills. No recent weight loss. NEUROLOGICAL: + numbness and tingling along the distal extremities. No seizure disorders or headaches. MUSCULOSKELETAL: + pain PSYCHIATRIC: Denies current depression or suicidal thoughts. Physical Examinations : Constitutional : Cooperative , not in acute distress . Neurologic : Cranial nerve II to XII intact. No focal neurological deficits. Psychiatric : alert & oriented x 3. Matching mood & appropriate affect. Judgment & insight intact. Musculoskeletal : Cervical Spine +BL EHSAN TTP Motor strength in the deltoid and biceps: Normal right side. Normal Left side Motor strength biceps and the wrist extensors: Normal right side . Normal left side Motor strength in the triceps muscle: Normal right side. Normal left side Deep tendon reflexes: Normal at the biceps. Normal at Brachioradialis. Normal at triceps Vertebral body tenderness to deep palpation over Cervical facet loading test: positive bilaterally Spurling test: positive bilaterally Neck distraction test: positive bilaterally Talat sign: positive bilaterally Lumbar spine Motor strength lower extremities ,thigh and legs 5/5 Right side , 5/5 Left side Deep tendon reflexes : Normal Knee Jerk. Normal Ankle Jerk Vertebral body tenderness over Lumbar facet Loading Test: positive Right / positive Left Range of motion of the lumbar spine Flexion 30 degrees, extension 10 degrees Straight Leg Raise test: Left/ Right positive at degree Wu test: positive right / positive left. Severe tenderness over the Sacroiliac joint on the Right / Left sides Gaenslen test: positive bilaterally Seated flexion test: positive bilaterally. Sacral spine : Severe tenderness over the Sacroiliac joint: right side / left side Range of motion: Flexion of the lumbar spine <60 degrees Range of motion: Extension of the lumbar spine <20 degrees Gaenslen's Test positive Ronnie's Test positive Wu test: positive right side / left side Thigh Thrust Test Sacral Thrust Test Imaging: EKG 04/12/22 reviewed Assessment/ Plan : BL Occipital Neuralgia secondary Recommendation of BL EHSAN injection. Risks, benefits of procedure discussed and patient verbalized understanding. Admits to Eliquis and anti- coagulant use or medical history of diabetes. Will need to stop Eliquis 3 days prior to proced ure. Eliquis last dose on 04/14/22. Protocol for discontinuation/ continuation of medications mariel procedure discussed. All questions answered. I have spent greater than 30 minutes on patient care today. Dr Hirsch was available by phone for the evaluation of this patient. The time was used to revi ew the medical records including relevant urine studies and Prescription history (MAPs), review of the available imaging, evaluation and examination of the patient, coordination of care with the medical staff and if applicable referring physicians, as well as creation of the medical record PQRS Narrative: Blood Pressure [Left Arm] 111/71 Blood Pressure 115/71 Pain Intensity [Head] 0 Pain Intensity 9 Pain Scale Used Numeric (1 - 10) Scale Used Numeric (1 - 10) Home Medications: Ambulatory Orders Apixaban [Eliquis] 5 mg PO BID 09/24/21 Atorvastatin [Lipitor] 40 mg PO HS 09/24/21 Bumetanide [BUMEX] 2 mg PO BID 09/24/21 Cetirizine HCl 10 mg PO DAILY 09/24/21 Cholestyramine (with Sugar) [Cholestyramine Packet] 4 gm PO DAILY PRN 09/24/21 Gabapentin 300 mg PO TID 09/24/21 Potassium Chloride ER [K-Dur 20] 40 meq PO BID 09/24/21 Sertraline [Zoloft] 200 mg PO DAILY 09/24/21 Sucralfate 1 gm PO AC-TID 09/24/21 Ubrogepant [Ubrelvy] 100 mg PO BID PRN 09/24/21 busPIRone HCl [Buspar] 10 mg PO BID 09/24/21 rOPINIRole HCL [Requip] 2 mg PO HS 09/24/21 Budesonide/Glycopyr/Formoterol [Breztri Aerosphere Inhaler] 1 puff INHALATION RT-BID 03/16/22 Esomeprazole Magnesium [NexIUM] 40 mg PO DAILY 03/16/22 HYDROcodone/APAP 7.5-325MG [[place] 7.5-325] 1 tab PO TID PRN 03/16/22 Midodrine [ProAmatine] 5 mg PO TID 03/16/22 Orphenadrine Citrate [Orphenadrine Citrate ER] 100 mg PO HS 03/16/22 Topiramate [Topamax] 200 mg PO BID 03/16/22 Botox 200unit Injection 1 dose INJ Q84D 04/02/22 Dicyclomine [Bentyl] 20 mg PO QID PRN 04/02/22 Meclizine [Antivert] 12.5 mg PO Q8H PRN 04/02/22 Hydrocortisone [Cortef] 20 mg PO BID 90 Days #180 tab 04/06/22 Controlled Substance Measures - Controlled Substance Measures Is patient prescribed a controlled substance at discharge?: No
[2022-04-14] MEDS: CYCLOBENZAPRINE 10 MG TAB PO SCH (20:40)
[2022-04-14] MEDS: ATORVASTATIN 40 MG TAB PO SCH (20:42)
[2022-04-15] MEDS: HYDROmorphone 0.5 MG/0.5 ML SYRINGE IVP PRN ×6 (03:07→23:42)
[2022-04-15] MEDS: diphenhydrAMINE 50 MG/ML 1 ML VIAL IVP PRN ×3 (03:12→20:45)
[2022-04-15] MEDS: MIDODRINE 5 MG TAB PO SCH ×3 (06:55→17:02)
[2022-04-15] MEDS: PATIENT'S OWN (Ubrogepant [Ubrelvy] 100 MG Tablet) PO PRN ×2 (06:55→12:47)
[2022-04-15] MEDS: SYMBICORT 160-4.5 MCG INHALER INHALATION SCH ×2 (07:14→21:04)
[2022-04-15] MEDS: IPRATROPIUM 0.5 MG/2.5 ML NEBU INHALATION SCH ×4 (07:14→21:04)
[2022-04-15 07:36] LABS: African American GFR (CKD) 53 (>60 ml/min/1.73 sqM); Anion Gap 6 mmol/L; Blood Urea Nitrogen 19 mg/dL (7-17); Calcium 8.4 mg/dL (8.4-10.2); Carbon Dioxide 25 mmol/L (22-30); Chloride 108 mmol/L (98-107); Glucose 94 mg/dL (74-99); Non-African American GFR(CKD) 46 (>60 ml/min/1.73 sqM); Potassium 3.9 mmol/L (3.5-5.1); Sodium 139 mmol/L (137-145)
[2022-04-15] MEDS: TOPIRAMATE 100 MG TAB PO SCH ×2 (08:36→20:43)
[2022-04-15] MEDS: PANTOPRAZOLE 40 MG TABLET PO SCH (08:36)
[2022-04-15] MEDS: HYDROCORTISONE 20 MG TAB PO SCH ×2 (08:36→20:44)
[2022-04-15] MEDS: BUMETANIDE 1 MG TAB PO SCH ×2 (08:36→17:00)
[2022-04-15] MEDS: GABAPENTIN 300 MG CAP PO SCH ×3 (08:36→23:42)
[2022-04-15] MEDS: SERTRALINE 100 MG TAB PO SCH (08:36)
[2022-04-15] MEDS: busPIRone HCl 5 MG TAB PO SCH ×2 (08:37→20:44)
[2022-04-15] MEDS: APIXABAN 5 MG TAB PO SCH (08:37)
[2022-04-15] MEDS: POTASSIUM CHLORIDE ER 20 MEQ TAB.ER PO SCH ×2 (08:37→20:43)
[2022-04-15] MEDS: LORATADINE 10 MG TAB PO SCH (08:37)
[2022-04-15 10:48] VITALS: BMI 27.2
--- NOTE | 2022-04-15 12:04 | P.PN ---
Subjective Patient is seen for follow-up for hypokalemia. Potassium has been replaced. Status post IV fluids Serum creatinine at 1.29 Complaining of mild swelling in the legs No complaints of chest pains or shortness of breath. Urine potassium was elevated however patient is maintained on Bumex. 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 Acute kidney injury prerenal status post IV fluids. Improved. UA is benign. Blood pressure has been low 2. Chronic kidney disease baseline creatinine around 1.1-1.2 mg/dL. NKF stage IIIa History of thromboembolic phenomena in 1 of the kidneys per patient. Right renal atrophy noted on ultrasound. 3. Chronic hypokalemia. Need to rule out underlying renal wasting associated with RTA as patient states she was informed that she had low potassium levels during childhood as well. Random urine potassium noted at 130 during her last admission on 04/04/2022. This is high. Serum potassium at that time was 4.0. 4. History of antiphospholipid antibody syndrome associated with flu vaccine but subsequent history of PE and thromboembolic phenomenon in one of the kidneys per patient. 5. History of pyoderma gangrenosum 6. History of chronic hypotension maintained on midodrine and fludrocortisone as outpatient. Patient reports history of decreased pituitary function and she was started on Cortef during her last admission as her serum cortisol level was significantly low. Patient has not followed up with endocrinology yet. Plan: DC IV fluids Maintain potassium replacement at 40 mEq 3 times a day upon discharge Continue with Cortef and midodrine Resume fludrocortisone Discontinue IV fluids Repeat labs in a.m. Add Spironolactone at 50 mg daily Try to decrease Bumex to 2 mg a.m. and 1 mg p.m. post discharge Follow-up as outpatient in 1-2 weeks Repeat labs in 1-2 days post discharge Patient is encouraged to see endocrinology as outpatient post discharge.
[2022-04-15] MEDS: SPIRONOLACTONE 25 MG TAB PO SCH (12:46)
--- NOTE | 2022-04-15 13:41 | PN ---
PROGRESS NOTE HISTORY OF PRESENT ILLNESS: She continues to have diarrhea, progressive vomiting. Hemoglobin is stable at 12.2. Her potassium and magnesium continued to be low. protocol. She was 3.3, 2.1, 2.4. BUN is 19, creatinine is 1.29, down from over 2.0. Sugars have been good in the low 100s. Magnesium is 2. PHYSICAL EXAMINATION: CARDIOVASCULAR: S1, S2. LUNGS: Clear. GI: Soft. PSYCH: Pleasantly confused. Severe migraines, she takes IV Benadryl medication for severe migraines. We are going to get neurology involved. She has been on multiple medicines in the past. She will also get Botox injections in a week or 2 and a port placed. Continue to monitor for diarrhea. Continues to replace potassium and magnesium. Get Neurology to see her for headaches. Prognosis is guarded. Chronic diarrhea, unclear in nature. She has had negative colonoscopy and stool cultures. Possibly get a GI doctor to see her. Prognosis is guarded. Monitor electrolytes. MMODL / IJN: [id number] /
[2022-04-15] MEDS: HEPARIN SODIUM,PORCINE/PF 5,000 UNIT/0.5 ML SYRINGE SQ SCH ×2 (17:02→23:42)
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
[2022-04-15] MEDS: CYCLOBENZAPRINE 10 MG TAB PO SCH (20:43)
[2022-04-15] MEDS: ATORVASTATIN 40 MG TAB PO SCH (20:44)
[2022-04-16] MEDS: HYDROmorphone 0.5 MG/0.5 ML SYRINGE IVP PRN ×4 (06:04→15:43)
[2022-04-16] MEDS: diphenhydrAMINE 50 MG/ML 1 ML VIAL IVP PRN ×2 (06:04→16:01)
[2022-04-16] MEDS: MIDODRINE 5 MG TAB PO SCH ×2 (06:04→12:30)
[2022-04-16] MEDS: SYMBICORT 160-4.5 MCG INHALER INHALATION SCH (07:35)
[2022-04-16] MEDS: IPRATROPIUM 0.5 MG/2.5 ML NEBU INHALATION SCH ×3 (07:35→15:08)
[2022-04-16 08:04] VITALS: PULSE 71; RESP 18
[2022-04-16 08:14] LABS: ALT 21 U/L (4-34); AST 20 U/L (14-36); African American GFR (CKD) 52 (>60 ml/min/1.73 sqM); Albumin 3.9 g/dL (3.5-5.0); Albumin/Globulin Ratio 1.5; Alkaline Phosphatase 71 U/L (38-126); Anion Gap 7 mmol/L; Blood Urea Nitrogen 21 mg/dL (7-17); Carbon Dioxide 24 mmol/L (22-30); Chloride 108 mmol/L (98-107); Globulin 2.6 g/dL; Glucose 136 mg/dL (74-99); Non-African American GFR(CKD) 46 (>60 ml/min/1.73 sqM); Potassium 4.3 mmol/L (3.5-5.1); Sodium 139 mmol/L (137-145); Total Bilirubin 0.4 mg/dL (0.2-1.3); Total Protein 6.5 g/dL (6.3-8.2)
[2022-04-16 08:39] LABS: Basophils % (A) 0 %; Eosinophils # (A) 0.1 k/uL (0-0.7); Eosinophils % (A) 1 %; HCT 37.5 % (34.0-46.0); Lymphocytes # (A) 0.9 k/uL (1.0-4.8); Lymphocytes % (A) 15 %; MCH 31.1 pg (25.0-35.0); MCHC 32.9 g/dL (31.0-37.0); MCV 94.4 fL (80.0-100.0); Mean Platelet Volume 9.4; Monocytes # (A) 0.3 k/uL (0-1.0); Monocytes % (A) 5 %; Neutrophils # (A) 4.5 k/uL (1.3-7.7); Neutrophils % (A) 77 %; Platelet Count 209 k/uL (150-450); RBC 3.97 m/uL (3.80-5.40); RDW 13.1 % (11.5-15.5); WBC 5.9 k/uL (3.8-10.6)
[2022-04-16 08:42] LABS: HGB 12.4 gm/dL (11.4-16.0)
[2022-04-16] MEDS: BUMETANIDE 1 MG TAB PO SCH (09:09)
[2022-04-16] MEDS: HEPARIN SODIUM,PORCINE/PF 5,000 UNIT/0.5 ML SYRINGE SQ SCH (09:09)
[2022-04-16] MEDS: TOPIRAMATE 100 MG TAB PO SCH (09:10)
[2022-04-16] MEDS: busPIRone HCl 5 MG TAB PO SCH (09:10)
[2022-04-16] MEDS: SPIRONOLACTONE 25 MG TAB PO SCH (09:10)
[2022-04-16] MEDS: HYDROCORTISONE 20 MG TAB PO SCH (09:10)
[2022-04-16] MEDS: GABAPENTIN 300 MG CAP PO SCH (09:10)
[2022-04-16] MEDS: PANTOPRAZOLE 40 MG TABLET PO SCH (09:10)
[2022-04-16] MEDS: LORATADINE 10 MG TAB PO SCH (09:10)
[2022-04-16] MEDS: POTASSIUM CHLORIDE ER 20 MEQ TAB.ER PO SCH (09:10)
[2022-04-16] MEDS: SERTRALINE 100 MG TAB PO SCH (09:11)
[2022-04-16] MEDS: PATIENT'S OWN (Ubrogepant [Ubrelvy] 100 MG Tablet) PO PRN (12:55)
[2022-04-16] MEDS: MECLIZINE 12.5 MG TAB PO PRN (12:55)
[2022-04-16 14:58] VITALS: BP 101/65; TEMP 98
[2022-04-16] MEDS ORDERED: POTASSIUM CHLORIDE ER 20 MEQ TAB.ER PO SCH (16:00)
--- NOTE | 2022-04-20 00:43 | HP ---
HISTORY AND PHYSICAL HISTORY OF PRESENT ILLNESS: A -[id number] white female came to emergency room with atypical chest pain, muscle cramps, found to be severely hypokalemic. 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 Dr. Moy has admitted for prerenal azotemia, hyperkalemia, severe dehydration secondary to dehydration from diarrhea. Severe weakness, fatigue, migraines, anxiety, chronic pain syndrome. MEDICINES: List reviewed. REVIEW OF SYSTEMS: A 14-point review of systems otherwise negative. PAST MEDICAL HISTORY: As mentioned above. PHYSICAL EXAMINATION: VITAL SIGNS: Temp 98.1, pulse 70s to 80s, respiratory rate 16 to 18, blood pressure is 90s to 120s over 50s to 80s, and O2 saturation is 96 to 98. CARDIOVASCULAR: S1, S2. LUNGS: Clear. GI: Soft. HEMATOLOGIC: Negative Shanita's. EXTREMITIES: She has 2+ edema bilaterally. SKIN: Decreased skin turgor. HEENT: Dry mucous membranes. PSYCH: She appears a little sleepy and obtunded. ASSESSMENT: Severe hypokalemia, prerenal azotemia, mild acute kidney injury, chronic kidney disease. Given potassium supplementation, IV fluids, antiemetics, and potassium replaced. Prognosis extremely guarded. Neurology consulted for headaches. Renal consulted for acute renal tubular necrosis and chronic hypokalemia. PROGNOSIS: Guarded. FOLLOWUP: As an outpatient. MMODL / IJN: [id number] /
== END 2022-04-16 16:28 | disposition home or self-care (01) ==
LOC: EC 12:47 → 6NMEDSUR 19:00
PROVIDERS: ADMIT Family Medicine; ATTEND Family Medicine
DX: E87.6 Hypokalemia (principal); N17.9 Acute kidney failure, unspecified; N18.30 Chronic kidney disease, stage 3 unspecified; G43.909 Migraine, unspecified, not intractable, without status migrainosus; D68.61 Antiphospholipid syndrome; E86.0 Dehydration; R79.89 Other specified abnormal findings of blood chemistry; R56.9 Unspecified convulsions; M54.81 Occipital neuralgia; I95.89 Other hypotension; D72.829 Elevated white blood cell count, unspecified; G89.4 Chronic pain syndrome; M50.223 Other cervical disc displacement at C6-C7 level; M54.9 Dorsalgia, unspecified; G62.9 Polyneuropathy, unspecified; N26.1 Atrophy of kidney (terminal); E23.0 Hypopituitarism; G25.81 Restless legs syndrome; L88 Pyoderma gangrenosum; R19.7 Diarrhea, unspecified; F41.9 Anxiety disorder, unspecified; Z79.01 Long term (current) use of anticoagulants; Z79.51 Long term (current) use of inhaled steroids; Z79.899 Other long term (current) drug therapy; Z88.0 Allergy status to penicillin; Z88.1 Allergy status to other antibiotic agents; Z88.5 Allergy status to narcotic agent; Z88.8 Allergy status to other drugs, medicaments and biological substances; Z91.040 Latex allergy status; Z86.711 Personal history of pulmonary embolism; Z90.49 Acquired absence of other specified parts of digestive tract; Z90.710 Acquired absence of both cervix and uterus; Z98.891 History of uterine scar from previous surgery; Z95.0 Presence of cardiac pacemaker; Z87.820 Personal history of traumatic brain injury; Z86.19 Personal history of other infectious and parasitic diseases; Z16.24 Resistance to multiple antibiotics; Z82.49 Family history of ischemic heart disease and other diseases of the circulatory system; Z80.0 Family history of malignant neoplasm of digestive organs; Z83.49 Family history of other endocrine, nutritional and metabolic diseases; Z83.2 Family history of diseases of the blood and blood-forming organs and certain disorders involving the immune mechanism
CPT/HCPCS: 96376 ×6; 96372 ×2; 96365; 96366 ×2; 96375; 99285; 36415; 94640 ×6; 94760; 93005; 36410; 76937; 80053 ×3; 80048 ×2; 84133; 83735 ×2; 84132; 84484 ×2; 85025 ×4; 85610; 85730; 81003; 71046; G0378 ×5; J1200 ×5; J2405 ×2; J3480 ×2; J1170 ×5; J1644 ×2

== ENCOUNTER 2022-04-18 19:50 | Emergency (ER) | payer BC, MEDICARE ==
[2022-04-18 19:55] VITALS: PULSE 78; TEMP 97.3
[2022-04-18] MEDS ORDERED: SODIUM CHLORIDE 0.9% 500 ML IV ONE (20:46)
[2022-04-18] MEDS ORDERED: ONDANSETRON 4 MG/2 ML VIAL IVP STA (20:46)
[2022-04-18] MEDS ORDERED: HYDROmorphone 1 MG/ML 1 ML SYRINGE IVP STA ×2 (20:47→22:46)
--- NOTE | 2022-04-18 21:16 | ED ---
Weakness HPI - General Chief complaint: Weakness Stated complaint: Hypokalemia Time Seen by Provider: 04/18/22 19:58 Source: family Mode of arrival: wheelchair Limitations: no limitations - History of Present Illness Initial comments: 57-year-old female with past mental history of antiphospholipid antibody syndrome, lupus, chronic hypotension, CKD who presents to the emergency department with myalgias. Patient is concerned that her potassium is low. She has been seen multiple times recently for similar complaints. She is on significant potassium replacements. States that she took her potassium 3 times today she was concerned that her levels were going low. She also took her blood pressure at home and states that it was low. She took Midrin twice today. She also admits to a chronic headache. She does have scheduled follow-up appointment to have an acceptable nerve injection on Tuesday as well as a central line placed on the . She is working with nephrology as a need to do genetic testing to understand why the patient has recurrent hypokalemia. She denies any new symptoms no other alleviating, precipitating or modifying factors - Related Data Home Medications Medication Instructions Recorded Confirmed Atorvastatin [Lipitor] 40 mg PO HS 09/24/21 04/19/22 Bumetanide [BUMEX] 2 mg PO BID 09/24/21 04/19/22 Cetirizine HCl 10 mg PO DAILY 09/24/21 04/19/22 Cholestyramine (with Sugar) 4 gm PO DAILY PRN 09/24/21 04/19/22 [Cholestyramine Packet] Gabapentin 300 mg PO TID 09/24/21 04/19/22 Sertraline [Zoloft] 200 mg PO DAILY 09/24/21 04/19/22 Sucralfate 1 gm PO AC-TID 09/24/21 04/19/22 Ubrogepant [Ubrelvy] 100 mg PO BID PRN 09/24/21 04/19/22 busPIRone HCl [Buspar] 10 mg PO BID 09/24/21 04/19/22 rOPINIRole HCL [Requip] 2 mg PO HS 09/24/21 04/19/22 Budesonide/Glycopyr/Formoterol 1 puff INHALATION RT-BID 03/16/22 04/19/22 [Breztri Aerosphere Inhaler] Esomeprazole Magnesium [NexIUM] 40 mg PO DAILY 03/16/22 04/19/22 HYDROcodone/APAP 7.5-325MG [[place] 1 tab PO DIRECTED PRN 03/16/22 04/19/22 7.5-325] Midodrine [ProAmatine] 5 mg PO TID 03/16/22 04/19/22 Orphenadrine Citrate [Orphenadrine 100 mg PO HS 03/16/22 04/19/22 Citrate ER] Topiramate [Topamax] 200 mg PO BID 03/16/22 04/19/22 Botox 200unit Injection 1 dose INJ Q84D 04/02/22 04/19/22 Dicyclomine [Bentyl] 20 mg PO QID PRN 04/02/22 04/19/22 Meclizine [Antivert] 12.5 mg PO Q8H PRN 04/02/22 04/19/22 Diphenhydramine 50mg/Ml Vial 50 mg IV Q6H PRN 04/18/22 04/19/22 Enoxaparin [Lovenox] 40 mg SQ DIRECTED 04/18/22 04/19/22 HYDROcodone/APAP 10-325MG [[place] 1 tab PO TID PRN 04/18/22 04/19/22 10-325] Previous Rx's Medication Instructions Recorded Hydrocortisone [Cortef] 20 mg PO BID 90 Days #180 tab 04/06/22 Ipratropium Nebulized [Atrovent 0.5 mg INHALATION RT-QID ml 04/16/22 Nebulized 0.2 MG/ML] Potassium Chloride ER [K-Dur 20] 40 meq PO TID 30 Days #90 tab 04/16/22 Spironolactone [Aldactone] 50 mg PO DAILY 90 Days #90 tab 04/16/22 Allergies Allergy/AdvReac Type Severity Reaction Status Date / Time Penicillins Allergy Severe Anaphylaxis Verified 04/19/22 20:47 vancomycin Allergy Severe Swelling Verified 04/19/22 20:47 in lips Influenza Virus Vaccines Allergy Unknown Verified 04/19/22 20:47 latex Allergy Unknown Verified 04/19/22 20:47 morphine Allergy Unknown Verified 04/19/22 20:47 prochlorperazine Allergy Unknown Verified 04/19/22 20:47 [From Compazine] metoclopramide [From Reglan] AdvReac Unknown Verified 04/19/22 20:47 Review of Systems ROS Statement: Those systems with pertinent positive or pertinent negative responses have been documented in the HPI. ROS Other: All systems not noted in ROS Statement are negative. 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 History of Any Multi-Drug Resistant Organisms: C-DIFF Date of last positivie culture/infection: 2021 MDRO Source:: Stool Past Surgical History: Back Surgery, Breast Surgery, Section, Cholecystectomy, Hysterectomy, Pacemaker Additional Past Surgical History / Comment(s): 2 pacemakers d/t bradycardia/hy potension with last one place in 2012 in [place], [place], 3 lower back surgeries, bilateral breast reduction. Past Anesthesia/Blood Transfusion Reactions: No Reported Reaction Type of Cardiac Device: Permanent Pacemaker, Unknown Device Placement Date:: 2012 Past Psychological History: Anxiety Smoking Status: Never smoker Past Alcohol Use History: None Reported Past Drug Use History: None Reported - Past Family History Mother Additional Family Medical History / Comment(s): Mother at the age of 49 yrs after surgery for silicon breast implants with a leak that caused ARDS and DIC per pt Father Family Medical History: Cancer, Hyperlipidemia, Hypertension Additional Family Medical History / Comment(s): Father is a colon cancer survivor. General Exam Limitations: no limitations General appearance: alert, in no apparent distress Head exam: Present: atraumatic, normocephalic, normal inspection Eye exam: Present: normal appearance, PERRL, EOMI. Absent: scleral icterus, conjunctival injection, periorbital swelling ENT exam: Present: normal exam, mucous membranes moist Neck exam: Present: normal inspection. Absent: tenderness, meningismus, lymphadenopathy Respiratory exam: Present: normal lung sounds bilaterally. Absent: respiratory distress, wheezes, rales, rhonchi, stridor Cardiovascular Exam: Present: regular rate, normal rhythm, normal heart sounds. Absent: systolic murmur, diastolic murmur, rubs, gallop, clicks GI/Abdominal exam: Present: soft, normal bowel sounds. Absent: distended, tenderness, guarding, rebound, rigid Extremities exam: Present: normal inspection, full ROM, normal capillary refill. Absent: tenderness, pedal edema, joint swelling, calf tenderness Back exam: Present: normal inspection Neurological exam: Present: alert, oriented X3, CN II-XII intact Psychiatric exam: Present: normal affect, normal mood Skin exam: Present: warm, dry, intact, normal color. Absent: rash Course Vital Signs 04/18/22 04/18/22 19:52 23:41 Temperature 97.3 F L Pulse Rate 78 78 Respiratory 18 15 Rate Blood Pressure 124/73 137/77 O2 Sat by Pulse 95 98 Oximetry EKG Findings - EKG Comments: EKG Findings:: EKG demonstrates atrial pacemaker with a rate of 84. MN interval 190. QRS 90. QTC 443. No acute ST segment elevations or depressions. EKG interpreted by myself Medical Decision Making - Medical Decision Making Upon arrival patient was placed into room 17. There are history and physical exam was performed. IV access is established. Laboratory studies are conducted. Laboratory studies review a mildly elevated creatinine up to 2. Potassium within normal range at 3.8. Patient is requesting Dilaudid by name as well as Dilaudid with Benadryl. She is provided these medications and reports improvement in her symptoms. She feels comfortable going home as her pain is managed and she does her electrolytes are within normal range. She is to follow-up with her internal grinding machine operator to have repeat laboratory studies performed. Return for any new or worsening symptoms. Patient agreeable to treatment plan and was discharged home in stable condition - Lab Data Result diagrams: 04/18/22 21:48 04/18/22 21:48 Lab Results 04/18/22 04/18/22 Range/Units 21:48 21:48 WBC 11.2 H (3.8-10.6) k/uL RBC 4.46 (3.80-5.40) m/uL Hgb 14.2 (11.4-16.0) gm/dL Hct 41.5 (34.0-46.0) % MCV 93.1 (80.0-100.0) fL MCH 31.8 (25.0-35.0) pg MCHC 34.1 (31.0-37.0) g/dL RDW 12.8 (11.5-15.5) % Plt Count 302 (150-450) k/uL MPV 8.1 Neutrophils % 76 % Lymphocytes % 16 % Monocytes % 4 % Eosinophils % 2 % Basophils % 0 % Neutrophils # 8.5 H (1.3-7.7) k/uL Lymphocytes # 1.8 (1.0-4.8) k/uL Monocytes # 0.5 (0-1.0) k/uL Eosinophils # 0.2 (0-0.7) k/uL Basophils # 0.0 (0-0.2) k/uL Sodium 140 (137-145) mmol/L Potassium 3.8 (3.5-5.1) mmol/L Chloride 100 (98-107) mmol/L Carbon Dioxide 30 (22-30) mmol/L Anion Gap 10 mmol/L BUN 29 H (7-17) mg/dL Creatinine 2.06 H (0.52-1.04) mg/dL Est GFR (CKD-EPI)AfAm 30 (>60 ml/min/1.73 sqM) Est GFR (CKD-EPI)NonAf 26 (>60 ml/min/1.73 sqM) Glucose 93 (74-99) mg/dL Calcium 9.2 (8.4-10.2) mg/dL Magnesium 2.0 (1.6-2.3) mg/dL Total Bilirubin 0.2 (0.2-1.3) mg/dL AST 22 (14-36) U/L ALT 23 (4-34) U/L Alkaline Phosphatase 85 (38-126) U/L Total Protein 7.4 (6.3-8.2) g/dL Albumin 4.5 (3.5-5.0) g/dL Lipase 169 (23-300) U/L TSH 1.040 (0.465-4.680) mIU/L Disposition Clinical Impression: Myalgia Disposition: HOME SELF-CARE Condition: Stable Instructions (If sedation given, give patient instructions): Musculoskeletal Pain (ED) Additional Instructions: Your potassium today was within normal limits today. Please follow-up with the internal grinding machine operator for repeat laboratory studies. Continue with your genetic testing. Return for any new or worsening symptoms Is patient prescribed a controlled substance at d/c from ED?: No Referrals: Franklin Hassan MD [Primary Care Provider] - 1-2 days Time of Disposition: 23:00
[2022-04-18 21:55] LABS: Basophils % (A) 0 %; Eosinophils # (A) 0.2 k/uL (0-0.7); Eosinophils % (A) 2 %; HCT 41.5 % (34.0-46.0); HGB 14.2 gm/dL (11.4-16.0); Lymphocytes # (A) 1.8 k/uL (1.0-4.8); Lymphocytes % (A) 16 %; MCH 31.8 pg (25.0-35.0); MCHC 34.1 g/dL (31.0-37.0); MCV 93.1 fL (80.0-100.0); Mean Platelet Volume 8.1; Monocytes # (A) 0.5 k/uL (0-1.0); Monocytes % (A) 4 %; Neutrophils # (A) 8.5 k/uL (1.3-7.7); Neutrophils % (A) 76 %; Platelet Count 302 k/uL (150-450); RBC 4.46 m/uL (3.80-5.40); RDW 12.8 % (11.5-15.5); WBC 11.2 k/uL (3.8-10.6)
[2022-04-18 22:06] LABS: ALT 23 U/L (4-34); AST 22 U/L (14-36); African American GFR (CKD) 30 (>60 ml/min/1.73 sqM); Albumin 4.5 g/dL (3.5-5.0); Alkaline Phosphatase 85 U/L (38-126); Anion Gap 10 mmol/L; Blood Urea Nitrogen 29 mg/dL (7-17); Calcium 9.2 mg/dL (8.4-10.2); Carbon Dioxide 30 mmol/L (22-30); Chloride 100 mmol/L (98-107); Glucose 93 mg/dL (74-99); Lipase 169 U/L (23-300); Non-African American GFR(CKD) 26 (>60 ml/min/1.73 sqM); Potassium 3.8 mmol/L (3.5-5.1); Sodium 140 mmol/L (137-145); Total Bilirubin 0.2 mg/dL (0.2-1.3); Total Protein 7.4 g/dL (6.3-8.2)
[2022-04-18] MEDS ORDERED: diphenhydrAMINE 50 MG/ML 1 ML VIAL IVP STA (22:46)
[2022-04-18 23:41] VITALS: BP 137/77; RESP 15
== END 2022-04-18 23:49 | disposition home or self-care (01) ==
LOC: EC 19:50
DX: M79.10 Myalgia, unspecified site (principal); N18.30 Chronic kidney disease, stage 3 unspecified; F41.9 Anxiety disorder, unspecified; Z86.718 Personal history of other venous thrombosis and embolism; Z79.899 Other long term (current) drug therapy; Z88.0 Allergy status to penicillin; Z91.040 Latex allergy status; Z88.8 Allergy status to other drugs, medicaments and biological substances; Z88.5 Allergy status to narcotic agent; Z88.1 Allergy status to other antibiotic agents; Z88.7 Allergy status to serum and vaccine; Z79.01 Long term (current) use of anticoagulants
CPT/HCPCS: 99285 ×2; 96374 ×2; 96375 ×3; 96376 ×2; 96361 ×2; 36415; 93005; 80053; 84443; 83690; 83735; 85025; J1200; J2405; J1170

== ENCOUNTER 2022-04-19 14:59 | Observation (INO) | payer BC, MEDICARE ==
[2022-04-19] MEDS ORDERED: ONDANSETRON 4 MG/2 ML VIAL IVP STA (15:24)
[2022-04-19] MEDS ORDERED: SODIUM CHLORIDE 0.9% 1,000 ML IV STA (15:24)
[2022-04-19] MEDS ORDERED: DEXAMETHASONE SOD PHOSPHATE 10 MG/ML 1 ML VIAL IM STA (15:24)
[2022-04-19] MEDS ORDERED: ORPHENADRINE 30 MG/ML 2 ML VIAL IVP STA (15:24)
[2022-04-19 16:30] LABS: Basophils % (A) 1 %; Eosinophils # (A) 0.1 k/uL (0-0.7); Eosinophils % (A) 2 %; HCT 39.4 % (34.0-46.0); HGB 13.7 gm/dL (11.4-16.0); Lymphocytes # (A) 1.4 k/uL (1.0-4.8); Lymphocytes % (A) 15 %; MCH 32.4 pg (25.0-35.0); MCHC 34.7 g/dL (31.0-37.0); MCV 93.1 fL (80.0-100.0); Mean Platelet Volume 8.1; Monocytes # (A) 0.4 k/uL (0-1.0); Monocytes % (A) 5 %; Neutrophils # (A) 6.8 k/uL (1.3-7.7); Neutrophils % (A) 76 %; Platelet Count 297 k/uL (150-450); RBC 4.23 m/uL (3.80-5.40); RDW 12.7 % (11.5-15.5); WBC 8.9 k/uL (3.8-10.6)
[2022-04-19] MEDS: KETOROLAC 15 MG/ML 1 ML VIAL IVP STA ×2 (17:57→18:17)
[2022-04-19] MEDS ORDERED: HYDROmorphone 1 MG/ML 1 ML SYRINGE IVP STA (18:10)
[2022-04-19 18:46] LABS: Albumin 4.5 g/dL (3.5-5.0); Calcium 8.9 mg/dL (8.4-10.2); Potassium 3.8 mmol/L (3.5-5.1); Total Bilirubin 0.2 mg/dL (0.2-1.3); Total Protein 7.2 g/dL (6.3-8.2)
--- NOTE | 2022-04-19 18:50 | ED ---
Recheck HPI - General Chief Complaint: Recheck/Abnormal Lab/Rx Stated Complaint: low potassium Time Seen by Provider: 04/19/22 15:15 Source: patient Mode of arrival: ambulatory Limitations: no limitations - History of Present Illness Initial Comments: Patient is a 57-year-old female presenting with chief complaint of headache and diffuse myalgias. Patient has history of headaches and chronic pain. Patient is concerned that her potassium is low. She states that she was recently diagnosed with a condition which causes her to excrete potassium quickly. She has history of hypokalemia and tends to have these diffuse myalgias with hypokalemia. She is evaluated in the ER yesterday for similar symptoms, potassium was within normal limits and she was discharged home. No chest pain, difficulty breathing, abdominal pain, nausea, vomiting, palpitations, weakness. - Related Data Home Medications Medication Instructions Recorded Confirmed Atorvastatin [Lipitor] 40 mg PO HS 09/24/21 04/19/22 Bumetanide [BUMEX] 2 mg PO BID 09/24/21 04/19/22 Cetirizine HCl 10 mg PO DAILY 09/24/21 04/19/22 Cholestyramine (with Sugar) 4 gm PO DAILY PRN 09/24/21 04/19/22 [Cholestyramine Packet] Gabapentin 300 mg PO TID 09/24/21 04/19/22 Sertraline [Zoloft] 200 mg PO DAILY 09/24/21 04/19/22 Sucralfate 1 gm PO AC-TID 09/24/21 04/19/22 Ubrogepant [Ubrelvy] 100 mg PO BID PRN 09/24/21 04/19/22 busPIRone HCl [Buspar] 10 mg PO BID 09/24/21 04/19/22 rOPINIRole HCL [Requip] 2 mg PO HS 09/24/21 04/19/22 Budesonide/Glycopyr/Formoterol 1 puff INHALATION RT-BID 03/16/22 04/19/22 [Breztri Aerosphere Inhaler] Esomeprazole Magnesium [NexIUM] 40 mg PO DAILY 03/16/22 04/19/22 HYDROcodone/APAP 7.5-325MG [[place]ner 1 tab PO DIRECTED PRN 03/16/22 04/19/22 7.5-325] Midodrine [ProAmatine] 5 mg PO TID 03/16/22 04/19/22 Orphenadrine Citrate [Orphenadrine 100 mg PO HS 03/16/22 04/19/22 Citrate ER] Topiramate [Topamax] 200 mg PO BID 03/16/22 04/19/22 Botox 200unit Injection 1 dose INJ Q84D 04/02/22 04/19/22 Dicyclomine [Bentyl] 20 mg PO QID PRN 04/02/22 04/19/22 Meclizine [Antivert] 12.5 mg PO Q8H PRN 04/02/22 04/19/22 Diphenhydramine 50mg/Ml Vial 50 mg IV Q6H PRN 04/18/22 04/19/22 Enoxaparin [Lovenox] 40 mg SQ DIRECTED 04/18/22 04/19/22 HYDROcodone/APAP 10-325MG [Sumner 1 tab PO TID PRN 04/18/22 04/19/22 10-325] Previous Rx's Medication Instructions Recorded Hydrocortisone [Cortef] 20 mg PO BID 90 Days #180 tab 04/06/22 Ipratropium Nebulized [Atrovent 0.5 mg INHALATION RT-QID ml 04/16/22 Nebulized 0.2 MG/ML] Potassium Chloride ER [K-Dur 20] 40 meq PO TID 30 Days #90 tab 04/16/22 Spironolactone [Aldactone] 50 mg PO DAILY 90 Days #90 tab 04/16/22 Allergies Allergy/AdvReac Type Severity Reaction Status Date / Time Penicillins Allergy Severe Anaphylaxis Verified 04/19/22 20:47 vancomycin Allergy Severe Swelling Verified 04/19/22 20:47 in lips Influenza Virus Vaccines Allergy Unknown Verified 04/19/22 20:47 latex Allergy Unknown Verified 04/19/22 20:47 morphine Allergy Unknown Verified 04/19/22 20:47 prochlorperazine Allergy Unknown Verified 04/19/22 20:47 [From Compazine] metoclopramide [From Reglan] AdvReac Unknown Verified 04/19/22 20:47 Review of Systems ROS Statement: Those systems with pertinent positive or pertinent negative responses have been documented in the HPI. ROS Other: All systems not noted in ROS Statement are negative. 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 History of Any Multi-Drug Resistant Organisms: C-DIFF Date of last positivie culture/infection: 2021 MDRO Source:: Stool Past Surgical History: Back Surgery, Breast Surgery, Section, Cholecystectomy, Hysterectomy, Pacemaker Additional Past Surgical History / Comment(s): 2 pacemakers d/t bradycardia/hypotension with last one place in 2012 in [place], [place], 3 lower back surgeries, bilateral breast reduction. Past Anesthesia/Blood Transfusion Reactions: No Reported Reaction Type of Cardiac Device: Permanent Pacemaker, Unknown Device Placement Date:: 2012 Past Psychological History: Anxiety Smoking Status: Never smoker Past Alcohol Use History: None Reported Past Drug Use History: None Reported - Past Family History Mother Additional Family Medical History / Comment(s): Mother at the age of 49 yrs after surgery for silicon breast implants with a leak that caused ARDS and DIC per pt Father Family Medical History: Cancer, Hyperlipidemia, Hypertension Additional Family Medical History / Comment(s): Father is a colon cancer survivor. General Exam Limitations: no limitations General appearance: alert, in distress (She is complaining of pain) Head exam: Present: atraumatic, normocephalic, normal inspection Eye exam: Present: normal appearance, PERRL, EOMI. Absent: scleral icterus, conjunctival injection, periorbital swelling Neck exam: Present: normal inspection Respiratory exam: Present: normal lung sounds bilaterally. Absent: respiratory distress, wheezes, rales, rhonchi, stridor Cardiovascular Exam: Present: regular rate, normal rhythm, normal heart sounds. Absent: systolic murmur, diastolic murmur, rubs, gallop, clicks Neurological exam: Present: alert, oriented X3, CN II-XII intact Expanded Eye Response: (4) open spontaneously Motor Response: (6) obeys commands Verbal Response: (5) oriented [place] Total: 15 Psychiatric exam: Present: normal affect, normal mood Skin exam: Present: warm, dry, intact, normal color. Absent: rash Course Vital Signs 04/19/22 04/19/22 15:07 19:02 Temperature 98.2 F Pulse Rate 68 69 Respiratory 18 20 Rate Blood Pressure 117/76 119/78 O2 Sat by Pulse 97 98 Oximetry - Reevaluation(s) Reevaluation #1: She develops chest pain, I alerted nursing staff about the need for stat EKG 04/19/22 18:49 Medical Decision Making - Medical Decision Making Patient is a 57-year-old female presenting with chief complaint of diffuse myalgias and headache. Patient has chronic headaches this feels consistent with her usual headaches. Patient normally had Botox for headaches but missed her recent appointment. Patient has a block scheduled for tomorrow. Patient is also concerned for her potassium level, she has history of low potassium. On physical examination heart and lungs are clear to auscultation and no focal neurological deficits. Lab work shows no leukocytosis or anemia. Potassium is 3.8. Patient had RUBEN, creatinine 2.31 and BUN 33. During her course patient developed some chest pain, EKG showed no ischemic changes and troponin was less than 0.012. Patient will be admitted for intractable pain and acute kidney injury. I discussed the case with Dr. Hassan who accepted admission. Patient is agreeable with this plan. I discussed this case with my attending Dr. Ignacio - Lab Data Result diagrams: 04/19/22 16:10 04/19/22 17:52 Lab Results 04/19/22 04/19/22 04/19/22 Range/Units 16:10 17:52 19:18 WBC 8.9 (3.8-10.6) k/uL RBC 4.23 (3.80-5.40) m/uL Hgb 13.7 (11.4-16.0) gm/dL Hct 39.4 (34.0-46.0) % MCV 93.1 (80.0-100.0) fL MCH 32.4 (25.0-35.0) pg MCHC 34.7 (31.0-37.0) g/dL RDW 12.7 (11.5-15.5) % Plt Count 297 (150-450) k/uL MPV 8.1 Neutrophils % 76 % Lymphocytes % 15 % Monocytes % 5 % Eosinophils % 2 % Basophils % 1 % Neutrophils # 6.8 (1.3-7.7) k/uL Lymphocytes # 1.4 (1.0-4.8) k/uL Monocytes # 0.4 (0-1.0) k/uL Eosinophils # 0.1 (0-0.7) k/uL Basophils # 0.0 (0-0.2) k/uL Sodium 136 L (137-145) mmol/L Potassium 3.8 (3.5-5.1) mmol/L Chloride 97 L (98-107) mmol/L Carbon Dioxide 31 H (22-30) mmol/L Anion Gap 8 mmol/L BUN 33 H (7-17) mg/dL Creatinine 2.31 H (0.52-1.04) mg/dL Est GFR (CKD-EPI)AfAm 26 (>60 ml/min/1.73 sqM) Est GFR (CKD-EPI)NonAf 23 (>60 ml/min/1.73 sqM) Glucose 79 (74-99) mg/dL Calcium 8.9 (8.4-10.2) mg/dL Total Bilirubin 0.2 (0.2-1.3) mg/dL AST 21 (14-36) U/L ALT 22 (4-34) U/L Alkaline Phosphatase 73 (38-126) U/L Troponin I <0.012 (0.000-0.034) ng/mL Total Protein 7.2 (6.3-8.2) g/dL Albumin 4.5 (3.5-5.0) g/dL Disposition Clinical Impression: RUBEN (acute kidney injury), Intractable pain Disposition: ADMITTED IP TO THIS [facility] Condition: Good Time of Disposition: 20:25 Decision to Admit Reason: Admit from EC Decision Date: 04/19/22 Decision Time: 20:25
[2022-04-19] MEDS ORDERED: ONDANSETRON 4 MG/2 ML VIAL IVP PRN (20:23)
[2022-04-19] MEDS ORDERED: ACETAMINOPHEN TAB 325 MG TAB PO PRN (20:23)
[2022-04-19] MEDS ORDERED: NALOXONE 0.4 MG/ML 1 ML VIAL IV PRN (20:23)
[2022-04-19] MEDS ORDERED: SODIUM CHLORIDE 0.9% 1,000 ML IV SCH (20:30)
[2022-04-19] MEDS ORDERED: HYDROcodone/APAP 10-325MG 1 EACH TAB PO PRN (21:40)
[2022-04-19] MEDS ORDERED: MECLIZINE 12.5 MG TAB PO PRN (22:00)
[2022-04-19] MEDS ORDERED: DICYCLOMINE 20 MG TAB PO PRN (22:00)
[2022-04-19] MEDS ORDERED: HYDROCORTISONE 20 MG TAB PO SCH (22:00)
[2022-04-19] MEDS ORDERED: BUMETANIDE 1 MG TAB PO SCH (22:00)
[2022-04-19] MEDS ORDERED: POTASSIUM CHLORIDE ER 20 MEQ TAB.ER PO SCH (22:00)
[2022-04-19] MEDS ORDERED: CYCLOBENZAPRINE 10 MG TAB PO SCH (22:00)
[2022-04-19] MEDS ORDERED: TOPIRAMATE 100 MG TAB PO SCH (22:00)
[2022-04-19] MEDS ORDERED: busPIRone HCl 5 MG TAB PO SCH (22:00)
[2022-04-19] MEDS ORDERED: GABAPENTIN 300 MG CAP PO SCH (22:00)
[2022-04-19] MEDS ORDERED: MIDODRINE 5 MG TAB PO SCH (22:00)
[2022-04-19] MEDS: diphenhydrAMINE 50 MG/ML 1 ML VIAL IVP PRN (22:29)
[2022-04-19] MEDS: HYDROmorphone 1 MG/ML 1 ML SYRINGE IVP PRN (22:30)
[2022-04-19 23:00] VITALS: RESP 17
[2022-04-20] MEDS: HYDROmorphone 1 MG/ML 1 ML SYRINGE IVP PRN (03:29)
[2022-04-20 04:19] VITALS: BP 102/61; PULSE 82; TEMP 98
[2022-04-20] MEDS: diphenhydrAMINE 50 MG/ML 1 ML VIAL IVP PRN (05:32)
[2022-04-20] MEDS ORDERED: SUCRALFATE 1 GM TAB PO SCH (07:30)
[2022-04-20] MEDS ORDERED: SYMBICORT 160-4.5 MCG INHALER INHALATION SCH (08:00)
[2022-04-20] MEDS ORDERED: IPRATROPIUM 0.5 MG/2.5 ML NEBU INHALATION SCH (08:00)
[2022-04-20] MEDS ORDERED: LORATADINE 10 MG TAB PO SCH (09:00)
[2022-04-20] MEDS ORDERED: SPIRONOLACTONE 25 MG TAB PO SCH (09:00)
[2022-04-20] MEDS ORDERED: PANTOPRAZOLE 40 MG TABLET PO SCH (09:00)
[2022-04-20] MEDS ORDERED: SERTRALINE 100 MG TAB PO SCH (09:00)
[2022-04-20] MEDS ORDERED: ATORVASTATIN 40 MG TAB PO SCH (21:41)
== END 2022-04-20 05:59 | disposition home or self-care (01) ==
LOC: EC 14:59 → 6NMEDSUR 19:20
PROVIDERS: ADMIT Family Medicine; ATTEND Family Medicine
DX: N17.9 Acute kidney failure, unspecified (principal); N18.30 Chronic kidney disease, stage 3 unspecified; M32.9 Systemic lupus erythematosus, unspecified; G43.909 Migraine, unspecified, not intractable, without status migrainosus; G25.81 Restless legs syndrome; F41.9 Anxiety disorder, unspecified; Z95.0 Presence of cardiac pacemaker; Z79.899 Other long term (current) drug therapy; Z88.0 Allergy status to penicillin; Z88.1 Allergy status to other antibiotic agents; Z91.040 Latex allergy status; Z88.5 Allergy status to narcotic agent; Z86.711 Personal history of pulmonary embolism
CPT/HCPCS: 96375 ×2; 96376 ×2; 96372; 96374; 99285; 36415; 93005; 80053; 84484; 85025; G0378 ×2; J1100; J2360; J2405; J1170 ×2

== ENCOUNTER 2022-04-20 06:18 | Day surgery (SDC) | payer BC, MEDICARE ==
[2022-04-20 06:40] VITALS: RESP 16; TEMP 97.9
[2022-04-20] MEDS ORDERED: ROPIVACAINE 5 MG/ML 20 ML AMPULE ONE (07:33)
[2022-04-20] MEDS ORDERED: MIDAZOLAM 2 MG/2 ML VIAL ONE (07:33)
[2022-04-20] MEDS ORDERED: ONDANSETRON 4 MG/2 ML VIAL ONE (07:33)
[2022-04-20] MEDS ORDERED: fentaNYL (PF) 50 MCG/ML 2 ML AMP ONE (07:33)
[2022-04-20] MEDS ORDERED: methylPREDNISolone ACETATE 40 MG/ML 1 ML VIAL ONE (07:33)
[2022-04-20] MEDS ORDERED: LACTATED RINGERS 1,000 ML IV ONE (07:34)
--- NOTE | 2022-04-20 07:45 | P.PCN ---
Date of Procedure: 04/20/22 Procedure(s) Performed: Preoperative diagnoses= 1- Greater occipital neuralgia. 2-cervicogenic headache Postoperative diagnoses= same as preoperative diagnosis. Procedure= Bilateral Greater occipital nerve block Anesthesia= moderate sedation with Versed 2 mg and fentanyl 100 micrograms Sedation start time : 0 736 . Sedation end time : 07:42 . Estimated blood loss=minimal. Procedure indication= the patient had a history of severe chronic neck pain ,an d headache, diagnosed with occipital neuralgia exam was positive for severe tenderness over the occipital nerve bilaterally, she will be a good candidate occipital nerve block, patient failed conservative management Procedure description= the patient was seen and identified in the preoperative holding area, risks and benefits and alternative of the procedure and possible complications discussed with the patient, and he agreed with the preceding, patient signed the consent, an IV was started, and vital signs were monitored and were stable throughout the procedure, patient was placed in the sitting position or table and the neck area was prepped and draped with a sterile fashion, vital signs were closely monitored during the procedure, 25-gauge needle advanced 1 inch lateral to the occipital protuberance on the right side, at the location of the right occipital nerve , then after negative aspiration for heme and CSF and there was no paresthesia during the injection, 6 ml of Robivacaine 0.5% and 20 mg of Depo-Medrol injected after negative aspiration, the needle removed, and the entire same procedure was repeated for the left Greater occipital nerve. Patient tolerated the procedure well without any complication, The patient returned to supine position after the back was cleaned and a Band- Aid applied, the patient transported to recovery room in stable condition and he was monitored for 30 minutes before he was discharged home and then patient was reexamined before going home and patient was discharged in stable condition and patient will follow up with the pain clinic in a few weeks.
[2022-04-20] MEDS ORDERED: IV FLUID CONTINUATION 1,000 ML IV ONE (07:46)
[2022-04-20] MEDS ORDERED: LACTATED RINGERS 1,000 ML IV SCH (08:00)
[2022-04-20] MEDS ORDERED: LIDOCAINE 1% (10MG/ML) FOR IV START INTRADERMA PRN (08:00)
[2022-04-20] MEDS ORDERED: MIDODRINE 5 MG TAB PO SCH (08:15)
[2022-04-20 08:34] VITALS: BP 120/78; PULSE 76
== END 2022-04-20 08:46 | disposition home or self-care (01) ==
LOC: ORPAIN 06:18
PROVIDERS: ATTEND Specialist
DX: M54.81 Occipital neuralgia (principal); G44.86 Cervicogenic headache
CPT/HCPCS: 64405

== ENCOUNTER → 2022-04-21 | Outpatient (CLI) | payer BC, MEDICARE ==
[2022-04-21 12:09] LABS: Basophils % (A) 0 %; Eosinophils # (A) 0.1 k/uL (0-0.7); Eosinophils % (A) 1 %; HCT 42.4 % (34.0-46.0); HGB 13.9 gm/dL (11.4-16.0); Lymphocytes # (A) 0.8 k/uL (1.0-4.8); Lymphocytes % (A) 10 %; MCH 31.7 pg (25.0-35.0); MCHC 32.8 g/dL (31.0-37.0); MCV 96.7 fL (80.0-100.0); Mean Platelet Volume 7.8; Monocytes # (A) 0.4 k/uL (0-1.0); Monocytes % (A) 5 %; Neutrophils # (A) 6.4 k/uL (1.3-7.7); Neutrophils % (A) 82 %; Platelet Count 263 k/uL (150-450); RBC 4.38 m/uL (3.80-5.40); RDW 12.6 % (11.5-15.5); WBC 7.8 k/uL (3.8-10.6)
[2022-04-21 12:24] LABS: ALT 25 U/L (4-34); AST 25 U/L (14-36); African American GFR (CKD) 45 (>60 ml/min/1.73 sqM); Albumin 4.8 g/dL (3.5-5.0); Albumin/Globulin Ratio 1.7; Alkaline Phosphatase 75 U/L (38-126); Anion Gap 11 mmol/L; Blood Urea Nitrogen 27 mg/dL (7-17); Calcium 9.1 mg/dL (8.4-10.2); Carbon Dioxide 25 mmol/L (22-30); Chloride 105 mmol/L (98-107); Globulin 2.9 g/dL; Glucose 120 mg/dL (74-99); Magnesium 2.5 mg/dL (1.6-2.3); Non-African American GFR(CKD) 39 (>60 ml/min/1.73 sqM); Potassium 4.3 mmol/L (3.5-5.1); Sodium 141 mmol/L (137-145); Total Bilirubin 0.3 mg/dL (0.2-1.3); Total Protein 7.7 g/dL (6.3-8.2)
== END | disposition home or self-care (01) ==
LOC: LABWHC1 11:38
PROVIDERS: ATTEND Family Medicine
DX: I10 Essential (primary) hypertension (principal); B89 Unspecified parasitic disease; Z79.899 Other long term (current) drug therapy
CPT/HCPCS: 36415; 80053; 82533; 83735; 85025

== ENCOUNTER → 2022-04-29 | Outpatient (CLI) | payer BC, MEDICARE ==
--- NOTE | 2022-04-29 10:57 | FL ---
EXAMINATION TYPE: FL barium swallow DATE OF EXAM: 04/29/2022 COMPARISON: None HISTORY: Dysphasia food sticks in throat TECHNIQUE: A double air contrast esophagram study is performed. FINDINGS: Fluoroscopy time: 18 seconds. Images: 131. Esophagus dilates to normal caliber and has normal contour to the gastroesophageal junction. Gastroes ophageal junction opens to normal caliber. No intraluminal or extramural defect is evident. Multiple tertiary contractions were evident during the examination. Secondary contraction was observe d in the horizontal drinking position. There is incomplete stripping of the esophageal bolus and hori zontal drinking position. There may be some persistence of the cricopharyngeus muscle during swallowing. IMPRESSIONS: 1. Moderate presbyesophagus. 2. There may be persistence of the cricopharyngeus muscle during swallowing
== END | disposition home or self-care (01) ==
LOC: RADUSWWP 09:07
PROVIDERS: ATTEND Family Medicine
DX: K22.89 Other specified disease of esophagus (principal); R13.10 Dysphagia, unspecified
CPT/HCPCS: 74220

== ENCOUNTER 2022-04-30 15:07 | Emergency (ER) | payer BC, MEDICARE ==
[2022-04-30 15:20] VITALS: TEMP 98
[2022-04-30] MEDS ORDERED: ONDANSETRON 4 MG/2 ML VIAL IVP STA (17:45)
[2022-04-30] MEDS ORDERED: SODIUM CHLORIDE 0.9% 1,000 ML IV STA (17:45)
[2022-04-30] MEDS ORDERED: HYDROmorphone 0.5 MG/0.5 ML SYRINGE IVP STA ×2 (18:00→20:28)
[2022-04-30 18:27] LABS: Basophils % (A) 0 %; Eosinophils # (A) 0.1 k/uL (0-0.7); Eosinophils % (A) 1 %; HCT 36.5 % (34.0-46.0); HGB 12.3 gm/dL (11.4-16.0); Lymphocytes # (A) 1.4 k/uL (1.0-4.8); Lymphocytes % (A) 22 %; MCHC 33.8 g/dL (31.0-37.0); MCV 94.6 fL (80.0-100.0); Mean Platelet Volume 8.1; Monocytes # (A) 0.6 k/uL (0-1.0); Monocytes % (A) 9 %; Neutrophils # (A) 4.3 k/uL (1.3-7.7); Neutrophils % (A) 66 %; Platelet Count 238 k/uL (150-450); RBC 3.86 m/uL (3.80-5.40); RDW 12.8 % (11.5-15.5); WBC 6.5 k/uL (3.8-10.6)
[2022-04-30 18:34] LABS: Calcium 8.6 mg/dL (8.4-10.2); Magnesium 2.3 mg/dL (1.6-2.3); Potassium 4.6 mmol/L (3.5-5.1); Total Bilirubin 0.1 mg/dL (0.2-1.3); Total Protein 6.3 g/dL (6.3-8.2)
[2022-04-30 19:42] VITALS: PULSE 70
--- NOTE | 2022-04-30 19:59 | CT ---
EXAMINATION TYPE: CT abdomen pelvis wo con CT DLP: 597.4 mGycm, Automated exposure control for dose reduction was used. DATE OF EXAM: 04/30/2022 7:25 PM COMPARISON: None CLINICAL INDICATION:Female, 57 years old with history of generalized pain; Diarrhea TECHNIQUE: Axial CT of the abdomen and pelvis. Sagittal and coronal reformats were created on a [employer] workstation. Contrast used: None Oral contrast used: without Oral Contrast FINDINGS: LOWER CHEST: Cardiomegaly. Pulmonary vascular congestion. Trace pericardial effusion. Tricuspid valvu lar repair changes. ABDOMEN LIVER: Unremarkable GALLBLADDER AND BILE DUCTS: The gallbladder is surgically absent. PANCREAS: Unremarkable. SPLEEN: Unremarkable. ADRENAL GLANDS: Unremarkable. KIDNEYS AND URETERS: No evidence of hydronephrosis or renal calculus. Atrophic right kidney. Nonobstr ucting 3 mm calculus on the left. PELVIS BLADDER: Unremarkable REPRODUCTIVE: Unremarkable. ABDOMEN & PELVIS STOMACH AND BOWEL: No evidence of bowel obstruction. Scattered colonic diverticula. Small hiatal cassandra ia is present. PERITONEUM: No evidence of pneumoperitoneum or free fluid. VASCULATURE: No evidence of aortic aneurysm. MUSCULOSKELETAL: No acute osseous abnormalities disc degeneration changes with surgical changes at L5 -S1. Hardware appears intact. LYMPH NODES: No gross evidence for lymphadenopathy. SOFT TISSUE/ABDOMINAL WALL: Unremarkable IMPRESSION: No evidence for acute abdominal process. Atrophic right kidney. No obstructing left renal calculus measuring 3 mm. Colonic diverticulosis. Thyromegaly with pulmonary vascular congestion suggestive of congestive heart failure. Small hiatal hernia.
[2022-04-30] MEDS ORDERED: LIDOCAINE 5% PATCH TOPICAL SCH (20:00)
[2022-04-30] MEDS ORDERED: DICYCLOMINE 20 MG TAB PO STA (20:17)
--- NOTE | 2022-04-30 20:21 | ED ---
Abdominal Pain HPI - General Chief Complaint: Abdominal Pain Stated Complaint: post surg/allergic reaction Time Seen by Provider: 04/30/22 17:28 Source: patient Mode of arrival: wheelchair Limitations: no limitations - History of Present Illness Initial Comments: Patient is a 57-year-old female who presents to the emergency department with a chief complaint of diarrhea. She reports watery diarrhea after port insertion today in her left arm. Denies blood in stool. 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 After having significant stomach cramping throughout the night and today along episode of diarrhea on the way home patient became concerned that her potassium was low. She reports nausea without vomiting. Denies fever, chills, chest pain, palpitations, shortness of breath, muscle aches, muscle weakness. Patient does mention she was started on clindamycin by her dentist yesterday. Patient reports history of watery diarrhea with clindamycin. She also admits to history of C. diff. - Related Data Home Medications Medication Instructions Recorded Confirmed Atorvastatin [Lipitor] 40 mg PO HS 09/24/21 04/19/22 Bumetanide [BUMEX] 2 mg PO BID 09/24/21 04/19/22 Cetirizine HCl 10 mg PO DAILY 09/24/21 04/19/22 Cholestyramine (with Sugar) 4 gm PO DAILY PRN 09/24/21 04/19/22 [Cholestyramine Packet] Gabapentin 300 mg PO TID 09/24/21 04/19/22 Sertraline [Zoloft] 200 mg PO DAILY 09/24/21 04/19/22 Sucralfate 1 gm PO AC-TID 09/24/21 04/19/22 Ubrogepant [Ubrelvy] 100 mg PO BID PRN 09/24/21 04/19/22 busPIRone HCl [Buspar] 10 mg PO BID 09/24/21 04/19/22 rOPINIRole HCL [Requip] 2 mg PO HS 09/24/21 04/19/22 Budesonide/Glycopyr/Formoterol 1 puff INHALATION RT-BID 03/16/22 04/19/22 [Breztri Aerosphere Inhaler] Esomeprazole Magnesium [NexIUM] 40 mg PO DAILY 03/16/22 04/19/22 HYDROcodone/APAP 7.5-325MG [[place] 1 tab PO DIRECTED PRN 03/16/22 04/19/22 7.5-325] Midodrine [ProAmatine] 5 mg PO TID 03/16/22 04/19/22 Orphenadrine Citrate [Orphenadrine 100 mg PO HS 03/16/22 04/19/22 Citrate ER] Topiramate [Topamax] 200 mg PO BID 03/16/22 04/19/22 Botox 200unit Injection 1 dose INJ Q84D 04/02/22 04/19/22 Dicyclomine [Bentyl] 20 mg PO QID PRN 04/02/22 04/19/22 Meclizine [Antivert] 12.5 mg PO Q8H PRN 04/02/22 04/19/22 Diphenhydramine 50mg/Ml Vial 50 mg IV Q6H PRN 04/18/22 04/19/22 Enoxaparin [Lovenox] 40 mg SQ DIRECTED 04/18/22 04/19/22 HYDROcodone/APAP 10-325MG [[place] 1 tab PO TID PRN 04/18/22 04/19/22 10-325] Previous Rx's Medication Instructions Recorded Hydrocortisone [Cortef] 20 mg PO BID 90 Days #180 tab 04/06/22 Ipratropium Nebulized [Atrovent 0.5 mg INHALATION RT-QID ml 04/16/22 Nebulized 0.2 MG/ML] Potassium Chloride ER [K-Dur 20] 40 meq PO TID 30 Days #90 tab 04/16/22 Spironolactone [Aldactone] 50 mg PO DAILY 90 Days #90 tab 04/16/22 Dicyclomine [Bentyl] 20 mg PO TID PRN #30 tablet 04/30/22 Doxycycline [Vibramycin] 100 mg PO BID 10 Days #20 capsule 04/30/22 Ondansetron Odt [Zofran Odt] 4 mg PO Q8HR PRN #12 tab 04/30/22 Allergies Allergy/AdvReac Type Severity Reaction Status Date / Time Penicillins Allergy Severe Anaphylaxis Verified 04/30/22 15:20 vancomycin Allergy Severe Swelling Verified 04/30/22 15:20 in lips Influenza Virus Vaccines Allergy Unknown Verified 04/30/22 15:20 latex Allergy Unknown Verified 04/30/22 15:20 morphine Allergy Unknown Verified 04/30/22 15:20 prochlorperazine Allergy Unknown Verified 04/30/22 15:20 [From Compazine] metoclopramide [From Reglan] AdvReac Unknown Verified 04/30/22 15:20 Review of Systems ROS Statement: Those systems with pertinent positive or pertinent negative responses have been documented in the HPI. ROS Other: All systems not noted in ROS Statement are negative. 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 History of Any Multi-Drug Resistant Organisms: C-DIFF Date of last positivie culture/infection: 2021 MDRO Source:: Stool Past Surgical History: Back Surgery, Breast Surgery, Section, Cholecystectomy, Hysterectomy, Pacemaker Additional Past Surgical History / Comment(s): 2 pacemakers d/t bradycardia/hypotension with last one place in 2012 in [place], [place], 3 lower back surgeries, bilateral breast reduction. Past Anesthesia/Blood Transfusion Reactions: No Reported Reaction Type of Cardiac Device: Permanent Pacemaker, Unknown Device Placement Date:: 2012 Past Psychological History: Anxiety Smoking Status: Never smoker - Past Family History Mother Additional Family Medical History / Comment(s): Mother at the age of 49 yrs after surgery for silicon breast implants with a leak that caused ARDS and DIC per pt Father Family Medical History: Cancer, Hyperlipidemia, Hypertension Additional Family Medical History / Comment(s): Father is a colon cancer survivor. General Exam Limitations: no limitations General appearance: alert, in no apparent distress Head exam: Present: atraumatic, normocephalic, normal inspection ENT exam: Present: normal oropharynx (No evidence of abscess) Respiratory exam: Present: normal lung sounds bilaterally. Absent: respiratory distress, wheezes, rales, rhonchi, stridor Cardiovascular Exam: Present: regular rate, normal rhythm, normal heart sounds. Absent: systolic murmur, diastolic murmur, rubs, gallop, clicks GI/Abdominal exam: Present: soft, tenderness (generalized), normal bowel sounds. Absent: distended, guarding, rebound, rigid Extremities exam: Present: normal capillary refill Neurological exam: Present: alert, oriented X3, CN II-XII intact Psychiatric exam: Present: normal affect, normal mood Skin exam: Present: warm, dry, intact, normal color. Absent: rash Course Vital Signs 04/30/22 04/30/22 04/30/22 15:17 19:41 20:36 Temperature 98 F Pulse Rate 73 70 70 Respiratory 18 20 18 Rate Blood Pressure 131/63 117/90 124/76 O2 Sat by Pulse 98 99 96 Oximetry 04/30/22 21:00 Temperature Pulse Rate 70 Respiratory 20 Rate Blood Pressure 130/79 O2 Sat by Pulse 98 Oximetry Medical Decision Making - Medical Decision Making Was pt. sent in by a medical professional or institution? No Did you speak to anyone other than the patient for history? No Did you review nursing and triage notes? Yes, and I agree. Symptoms consistent with nursing and triage notes. Were old charts reviewed? Yes Differential Diagnosis? Gastroenteritis, clindamycin reaction, colitis, influenza EKG interpreted by me (3pts min.)? NA X-rays interpreted by me (1pt min.)? NA CT interpreted by me (1pt min.)? Yes, CT abdomen and pelvis without contrast obtained by me which is negative for acute process. There is thyromegaly with pulmonary vascular congestion suggestive of congestive heart failure. Patient without chest pain or shortness of breath U/S interpreted by me (1pt. min.)? No What testing was considered but not performed? (CT, X-rays, U/S, labs)? Why? No What meds were considered but not given? Why? None Did you discuss the management of the patient with other professionals? No Did you reconcile home meds? No, patient discharged. Was smoking cessation discussed for >3mins.? No-patient denies tobacco use. Was critical care preformed (if so, how long)? No Were there social determinants of health that impacted care today? How? (Homelessness, low income, unemployed, alcoholism, drug addiction, transportation, low edu. Level, literacy, decrease access to med. care, longterm, rehab)? No Was there de-escalation of care discussed even if they declined? (Discuss DNR or withdrawal of care, Hospice)? No What co-morbidities impacted this encounter? (DM, HTN, Smoking, COPD, CAD, Cancer, CVA, Hep., AIDS, mental health diagnosis, sleep apnea, morbid obesity)? NA Was patient admitted / discharged? 57-year-old female presenting with abdominal cramping and diarrhea. Vitals within acceptable limits. Laboratory studies obtained. There is no leukocytosis. Potassium and magnesium are within normal limits. Creatinine 1.31, consistent with previous visits. Influenza, RSV, COVID-[address] abdomen and pelvis without contrast shows no evidence of acute abdominal process. Symptoms improve in the emergency department. Results discussed with patient. I do believe symptoms are related to clindamycin use. Patient will be discharged with symptomatic management and doxycycline for dental infection. She is instructed to stop using clindamycin and follow-up with her dentist and primary care provider. Undiagnosed new problem with uncertain prognosis? No Drug Therapy requiring intensive monitoring for toxicity (Heparin, Nitro, Insulin, Cardizem)? No Were any procedures done? No Diagnosis/symptom? Medication adverse reaction Acute, or Chronic, or Acute on Chronic? Acute Uncomplicated (without systemic symptoms) or Complicated (systemic symptoms)? Uncomplicated Side effects of treatment? No Exacerbation, Progression, or Severe Exacerbation] NA Poses a threat to life or bodily function? No Dr. Krishnan is my attending. - Lab Data Result diagrams: 04/30/22 17:55 04/30/22 17:55 Lab Results 04/30/22 04/30/22 04/30/22 Range/Units 17:55 17:55 18:19 WBC 6.5 (3.8-10.6) k/uL RBC 3.86 (3.80-5.40) m/uL Hgb 12.3 (11.4-16.0) gm/dL Hct 36.5 (34.0-46.0) % MCV 94.6 (80.0-100.0) fL MCH 32.0 (25.0-35.0) pg MCHC 33.8 (31.0-37.0) g/dL RDW 12.8 (11.5-15.5) % Plt Count 238 (150-450) k/uL MPV 8.1 Neutrophils % 66 % Lymphocytes % 22 % Monocytes % 9 % Eosinophils % 1 % Basophils % 0 % Neutrophils # 4.3 (1.3-7.7) k/uL Lymphocytes # 1.4 (1.0-4.8) k/uL Monocytes # 0.6 (0-1.0) k/uL Eosinophils # 0.1 (0-0.7) k/uL Basophils # 0.0 (0-0.2) k/uL Sodium 139 (137-145) mmol/L Potassium 4.6 (3.5-5.1) mmol/L Chloride 108 H (98-107) mmol/L Carbon Dioxide 25 (22-30) mmol/L Anion Gap 6 mmol/L BUN 35 H (7-17) mg/dL Creatinine 1.31 H (0.52-1.04) mg/dL Est GFR (CKD-EPI)AfAm 52 (>60 ml/min/1.73 sqM) Est GFR (CKD-EPI)NonAf 45 (>60 ml/min/1.73 sqM) Glucose 84 (74-99) mg/dL Calcium 8.6 (8.4-10.2) mg/dL Magnesium 2.3 (1.6-2.3) mg/dL Total Bilirubin 0.1 L (0.2-1.3) mg/dL AST 17 (14-36) U/L ALT 18 (4-34) U/L Alkaline Phosphatase 60 (38-126) U/L Total Protein 6.3 (6.3-8.2) g/dL Albumin 4.0 (3.5-5.0) g/dL Amylase 79 (30-110) U/L Lipase 224 (23-300) U/L Influenza Type A (PCR) Not Detected (Not Detectd) Influenza Type B (PCR) Not Detected (Not Detectd) RSV (PCR) Not Detected (Not Detectd) SARS-CoV-2 (PCR) Not Detected (Not Detectd) Disposition Clinical Impression: Clindamycin adverse reaction Disposition: HOME SELF-CARE Condition: Good Instructions (If sedation given, give patient instructions): Acute Diarrhea (ED) Additional Instructions: Take medication as directed. I do suggest stopping the clindamycin and taking prescribed doxycycline instead. Follow-up with dentist and primary care provider in 1-2 days. Return to the emergency department experience new, concerning, or worsening symptoms. Prescriptions: Dicyclomine [Bentyl] 20 mg PO TID PRN #30 tablet PRN Reason: Pain Doxycycline [Vibramycin] 100 mg PO BID 10 Days #20 capsule Ondansetron Odt [Zofran Odt] 4 mg PO Q8HR PRN #12 tab PRN Reason: Nausea Is patient prescribed a controlled substance at d/c from ED?: No Referrals: Franklin Hassan MD [Primary Care Provider] - 1-2 days
[2022-04-30 21:14] VITALS: BP 130/79; RESP 20
== END 2022-04-30 21:05 | disposition home or self-care (01) ==
LOC: EC 15:07
DX: R19.7 Diarrhea, unspecified (principal); T36.95XA Adverse effect of unspecified systemic antibiotic, initial encounter; F41.9 Anxiety disorder, unspecified; Z88.0 Allergy status to penicillin; Z88.7 Allergy status to serum and vaccine; Z88.8 Allergy status to other drugs, medicaments and biological substances; Z91.040 Latex allergy status; Z90.49 Acquired absence of other specified parts of digestive tract
CPT/HCPCS: 36415; 80053; 82150; 83690; 83735; 85025; 87636; 74176; 99284; 96374; 96375; 96376; 96361; J2405; J1170

== ENCOUNTER 2022-05-29 17:07 | Inpatient (IN) | payer BC, MEDICARE ==
--- NOTE | 2022-05-29 17:57 | ED ---
General Adult HPI - General Chief complaint: Chest Pain Stated complaint: sob, chest pain Time Seen by Provider: 05/29/22 17:38 Source: patient Mode of arrival: ambulatory Limitations: no limitations - History of Present Illness Initial comments: Patient presents to the ED with her for evaluation. Patient reports having diffuse muscle spasms, diffuse chest pain and dyspnea since this morning. Patient states that she feels that her potassium level is low. Patient states that she has had similar symptoms in the past when her potassium level has been low. Patient also admits to feeling nauseated. Patient denies trauma or injury, fever or chills, headache, focal numbness/weakness/neuro deficit, neck/jaw pain, pleuritic pain, cough or cold symptoms, palpitations, dizziness, abdominal pain, vomiting or diarrhea, dysuria or urinary symptoms, decreased urine output, leg or calf swelling, or any other symptoms or complaints. Patient states that she has a hypercoagulable blood disorder is on chronic Eliquis therapy. - Related Data Home Medications Medication Instructions Recorded Confirmed Atorvastatin [Lipitor] 40 mg PO HS 09/24/21 05/29/22 Bumetanide [BUMEX] 2 mg PO BID 09/24/21 05/29/22 Cetirizine HCl 10 mg PO DAILY 09/24/21 05/29/22 Cholestyramine (with Sugar) 4 gm PO DAILY PRN 09/24/21 05/29/22 [Cholestyramine Packet] Gabapentin 300 mg PO TID 09/24/21 05/29/22 Sertraline [Zoloft] 200 mg PO DAILY 09/24/21 05/29/22 Sucralfate 1 gm PO AC-TID 09/24/21 05/29/22 Ubrogepant [Ubrelvy] 100 mg PO BID PRN 09/24/21 05/29/22 busPIRone HCl [Buspar] 10 mg PO BID 09/24/21 05/29/22 rOPINIRole HCL [Requip] 2 mg PO HS 09/24/21 05/29/22 Budesonide/Glycopyr/Formoterol 1 puff INHALATION RT-BID 03/16/22 05/29/22 [Breztri Aerosphere Inhaler] Esomeprazole Magnesium [NexIUM] 40 mg PO DAILY 03/16/22 05/29/22 HYDROcodone/APAP 7.5-325MG [Pantego 1 tab PO BID PRN 03/16/22 05/29/22 7.5-325] Midodrine [ProAmatine] 5 mg PO TID 03/16/22 05/29/22 Orphenadrine Citrate [Orphenadrine 100 mg PO HS 03/16/22 05/29/22 Citrate ER] Topiramate [Topamax] 200 mg PO BID 03/16/22 05/29/22 Botox 200unit Injection 1 dose INJ Q84D 04/02/22 05/29/22 Meclizine [Antivert] 12.5 mg PO Q8H PRN 04/02/22 05/29/22 Diphenhydramine 50mg/Ml Vial 50 mg IV Q6H PRN 04/18/22 05/29/22 Ipratropium Nebulized [Atrovent 0.5 mg INHALATION RT-QID PRN 05/13/22 05/29/22 Nebulized 0.2 MG/ML] Previous Rx's Medication Instructions Recorded Hydrocortisone [Cortef] 20 mg PO BID 90 Days #180 tab 04/06/22 Potassium Chloride ER [K-Dur 20] 40 meq PO TID 30 Days #90 tab 04/16/22 Spironolactone [Aldactone] 50 mg PO DAILY 90 Days #90 tab 04/16/22 Dicyclomine [Bentyl] 20 mg PO TID PRN #30 tablet 04/30/22 Ondansetron Odt [Zofran ODT] 4 mg PO Q8HR PRN #12 tab 04/30/22 Acetaminophen Tab [Tylenol] 650 mg PO Q6HR PRN tab 05/17/22 Allergies Allergy/AdvReac Type Severity Reaction Status Date / Time Penicillins Allergy Severe Anaphylaxis Verified 05/29/22 19:51 vancomycin Allergy Severe Swelling Verified 05/29/22 19:51 in lips clindamycin Allergy Anaphylaxis Verified 05/29/22 19:51 Influenza Virus Vaccines Allergy Unknown Verified 05/29/22 19:51 latex Allergy Unknown Verified 05/29/22 19:51 morphine Allergy Unknown Verified 05/29/22 19:51 prochlorperazine Allergy Unknown Verified 05/29/22 19:51 [From Compazine] metoclopramide [From Reglan] AdvReac Unknown Verified 05/29/22 19:51 Review of Systems ROS Statement: Those systems with pertinent positive or pertinent negative responses have been documented in the HPI. ROS Other: All systems not noted in ROS Statement are negative. 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 History of Any Multi-Drug Resistant Organisms: C-DIFF Date of last positivie culture/infection: 2021 MDRO Source:: Stool Past Surgical History: Back Surgery, Breast Surgery, Section, Cholecystectomy, Hysterectomy, Pacemaker Additional Past Surgical History / Comment(s): 2 pacemakers d/t bradycardia/hypotension with last one place in 2012 in [place], [place], 3 lower back surgeries, bilateral breast reduction. left upper arm port placed by dr maki 04/30/2022 Past Anesthesia/Blood Transfusion Reactions: No Reported Reaction Type of Cardiac Device: Permanent Pacemaker, Unknown Device Placement Date:: 2012 Past Psychological History: Anxiety Smoking Status: Never smoker Past Alcohol Use History: None Reported Past Drug Use History: None Reported - Past Family History Mother Additional Family Medical History / Comment(s): Mother at the age of 49 yrs after surgery for silicon breast implants with a leak that caused ARDS and DIC per pt Father Family Medical History: Cancer, Hyperlipidemia, Hypertension Additional Family Medical History / Comment(s): Father is a colon cancer surv keith. General Exam Limitations: no limitations General appearance: alert, in no apparent distress Head exam: Present: atraumatic, normocephalic Eye exam: Present: normal appearance, EOMI ENT exam: Present: mucous membranes moist Neck exam: Present: other (Trachea is in midline) Respiratory exam: Present: normal lung sounds bilaterally. Absent: respiratory distress, wheezes, rales, rhonchi, stridor, chest wall tenderness Cardiovascular Exam: Present: regular rate, normal rhythm, normal heart sounds, other (Normal radial pulses bilaterally) GI/Abdominal exam: Present: soft. Absent: distended, tenderness, guarding Extremities exam: Present: full ROM, other (Negative Homans sign bilaterally). Absent: tenderness, pedal edema, calf tenderness Neurological exam: Present: alert, oriented X3. 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 Pita britton. He accepts hospital admission. He agrees with cardiology consultation. He has no further recommendations at this time. 05/29/22 20:43 Patient states that her symptoms have improved with ED treatment, and she denies development of any new symptoms while in the ED. Patient remains alert and grisel athing comfortably. Patient is aware of her test results, and she agrees with hospital admission at this time. EKG Findings - EKG Comments: EKG Findings:: Normal sinus rhythm, ventricular rate of 89 bpm, normal VT and QRS intervals, normal QT interval, normal axis, no ST or T-wave abnormality Medical Decision Making - Medical Decision Making Was pt. sent in by a medical professional or institution (, [facility], [employer], urgent care, hospital, or fci...) When possible be specific @ -[No] Did you speak to anyone other than the patient for history (EMS, parent, family, police, friend...)? What history was obtained from this source @ -[No] Did you review nursing and triage notes (agree or disagree)? Why? @ -[I reviewed and agree with nursing and triage notes] Were old charts reviewed (outside hosp., previous admission, EMS record, old EK G, old radiological studies, urgent care reports/EKG's, fci records)? Report findings @ -[No old charts were reviewed] Differential Diagnosis (chest pain, altered mental status, abdominal pain women, abdominal pain men, vaginal bleeding, weakness, fever, dyspnea, syncope, headache, dizziness, GI bleed, back pain, seizure, CVA, palpatations, mental he alth)? @ -Differential Chest Pain: Stable Angina, Unstable Angina, STEMI, NSTEMI Aortic Dissection, Pneumothorax, Musculoskeletal, Esophageal Spasm GERD, hypokalemia, lupus, muscle spasms, anxiety, this is not meant to be an all-inclusive list. EKG interpreted by me (3pts min.). @ -[As above] X-rays interpreted by me (1pt min.). @ -Chest X-ray is negative CT interpreted by me (1pt min.). @ -[None done] U/S interpreted by me (1pt. min.). @ -[None done] What testing was considered but not performed or refused? (CT, X-rays, U/S, labs)? Why? @ -[None] What meds were considered but not given or refused? Why? @ -[None] Did you discuss the management of the patient with other professionals (professionals i.e. , PA, [employer], lab, RT, psych nurse, manager social media, herb digger, teacher, hydrological technical officer, case finishing machine adjuster)? Give summary @ -As above Was smoking cessation discussed for >3mins.? @ -[No] Was critical care preformed (if so, how long)? @ -[No] Were there social determinants of health that impacted care today? How? (Homelessness, low income, unemployed, alcoholism, drug addiction, transportation, low edu. Level, literacy, decrease access to med. care, longterm, rehab)? @ -[No] Was there de-escalation of care discussed even if they declined (Discuss DNR or withdrawal of care, Hospice)? DNR status @ -[No] What co-morbidities impacted this encounter? (DM, HTN, Smoking, COPD, CAD, Cancer, CVA, ARF, Chemo, Hep., AIDS, mental health diagnosis, sleep apnea, morbid obesity)? @ -[Lupus, kidney disease, hypercoagulable state] Was patient admitted / discharged? Hospital course, mention meds given and route, prescriptions, significant lab abnormalities, going to OR and other pertinent info. @ -Patient's symptoms have improved with ED treatment. Patient's EKG and chest x-ray are fairly unremarkable. Patient's d-dimer is negative. Patient's troponin is minimally elevated. Patient has been treated with a dose of oral aspirin in the ED. Given in the patient reports being on Eliquis anticoagulation, no further anticoagulation was initiated in the ED. Case was d iscussed with Dr. Horton who has accepted hospital admission for cardiac monitoring, serial troponins and cardiology consultation. Patient agrees with this plan. Undiagnosed new problem with uncertain prognosis? @ -[No] Drug Therapy requiring intensive monitoring for toxicity (Heparin, Nitro, Insulin, Cardizem)? @ -[No] Were any procedures done? @ -[No] Diagnosis/symptom? @ -Chest pain with elevated troponin Acute, or Chronic, or Acute on Chronic? @ -Acute Uncomplicated (without systemic symptoms) or Complicated (systemic symptoms)? @ -[default] Side effects of treatment? @ -[No] Exacerbation, Progression, or Severe Exacerbation? @ -[No] Poses a threat to life or bodily function? How? (Chest pain, [place], [place], pneumonia, PE, COPD, DKA, ARF, appy, cholecystitis, CVA, Diverticulitis, Homicidal, Suicidal, threat to staff... and all critical care pts) @ -[No] - Lab Data Result diagrams: 05/29/22 18:27 05/29/22 18:27 Lab Results 05/29/22 05/29/22 05/29/22 Range/Units 18:27 18:27 18:27 WBC 14.6 H (3.8-10.6) k/uL RBC 4.96 (3.80-5.40) m/uL Hgb 15.4 (11.4-16.0) gm/dL Hct 45.2 (34.0-46.0) % MCV 91.1 (80.0-100.0) fL MCH 31.1 (25.0-35.0) pg MCHC 34.1 (31.0-37.0) g/dL RDW 13.2 (11.5-15.5) % Plt Count 239 (150-450) k/uL MPV 8.0 Neutrophils % 85 % Lymphocytes % 8 % Monocytes % 5 % Eosinophils % 1 % Basophils % 0 % Neutrophils # 12.4 H (1.3-7.7) k/uL Lymphocytes # 1.1 (1.0-4.8) k/uL Monocytes # 0.7 (0-1.0) k/uL Eosinophils # 0.1 (0-0.7) k/uL Basophils # 0.0 (0-0.2) k/uL PT 10.7 (9.0-12.0) sec INR 1.0 (<1.2) APTT 37.2 H (22.0-30.0) sec D-Dimer 0.30 (<0.60) mg/L FEU Sodium 140 (137-145) mmol/L Potassium 3.6 (3.5-5.1) mmol/L Chloride 95 L (98-107) mmol/L Carbon Dioxide 27 (22-30) mmol/L Anion Gap 18 mmol/L BUN 51 H (7-17) mg/dL Creatinine 1.62 H (0.52-1.04) mg/dL Est GFR (CKD-EPI)AfAm 40 (>60 ml/min/1.73 sqM) Est GFR (CKD-EPI)NonAf 35 (>60 ml/min/1.73 sqM) Glucose 101 H (74-99) mg/dL Calcium 9.9 (8.4-10.2) mg/dL Magnesium 2.5 H (1.6-2.3) mg/dL Total Bilirubin 0.6 (0.2-1.3) mg/dL AST 33 (14-36) U/L ALT 30 (4-34) U/L Alkaline Phosphatase 84 (38-126) U/L Troponin I (0.000-0.034) ng/mL NT-Pro-B Natriuret Pep pg/mL Total Protein 8.3 H (6.3-8.2) g/dL Albumin 5.1 H (3.5-5.0) g/dL 05/29/22 05/29/22 Range/Units 18:27 18:27 WBC (3.8-10.6) k/uL RBC (3.80-5.40) m/uL Hgb (11.4-16.0) gm/dL Hct (34.0-46.0) % MCV (80.0-100.0) fL MCH (25.0-35.0) pg MCHC (31.0-37.0) g/dL RDW (11.5-15.5) % Plt Count (150-450) k/uL MPV Neutrophils % % Lymphocytes % % Monocytes % % Eosinophils % % Basophils % % Neutrophils # (1.3-7.7) k/uL Lymphocytes # (1.0-4.8) k/uL Monocytes # (0-1.0) k/uL Eosinophils # (0-0.7) k/uL Basophils # (0-0.2) k/uL PT (9.0-12.0) sec INR (<1.2) APTT (22.0-30.0) sec D-Dimer (<0.60) mg/L FEU Sodium (137-145) mmol/L Potassium (3.5-5.1) mmol/L Chloride (98-107) mmol/L Carbon Dioxide (22-30) mmol/L Anion Gap mmol/L BUN (7-17) mg/dL Creatinine (0.52-1.04) mg/dL Est GFR (CKD-EPI)AfAm (>60 ml/min/1.73 sqM) Est GFR (CKD-EPI)NonAf (>60 ml/min/1.73 sqM) Glucose (74-99) mg/dL Calcium (8.4-10.2) mg/dL Magnesium (1.6-2.3) mg/dL Total Bilirubin (0.2-1.3) mg/dL AST (14-36) U/L ALT (4-34) U/L Alkaline Phosphatase (38-126) U/L Troponin I 0.045 H* (0.000-0.034) ng/mL NT-Pro-B Natriuret Pep 231 pg/mL Total Protein (6.3-8.2) g/dL Albumin (3.5-5.0) g/dL - Radiology Data Chest x-ray: Stable cardiomegaly. No focal airspace consolidation. Disposition Clinical Impression: Chest pain, Muscle spasm, Elevated troponin Disposition: ADMITTED IP TO THIS HOSP Condition: Stable Is patient prescribed a controlled substance at d/c from ED?: No Time of Disposition: 20:30
[2022-05-29] MEDS ORDERED: HYDROmorphone 0.5 MG/0.5 ML SYRINGE IVP STA ×2 (18:02→22:54)
[2022-05-29] MEDS ORDERED: SODIUM CHLORIDE 0.9% 500 ML 500 ML IV STA (18:02)
[2022-05-29] MEDS ORDERED: ONDANSETRON 4 MG/2 ML VIAL IVP STA (18:03)
[2022-05-29] MEDS ORDERED: LORazepam 2 MG/ML INJ IV STA (18:03)
--- NOTE | 2022-05-29 18:40 | XR ---
EXAMINATION TYPE: XR chest 1V portable DATE OF EXAM: 05/29/2022 6:26 PM COMPARISON: CT chest from same date 05/15/2022, chest x-ray 05/13/2022 TECHNIQUE: XR chest 1V portable . CLINICAL INDICATION:Female, 57 years old with history of chest pain; FINDINGS: Lungs/Pleura: Low lung volumes are present with bibasilar atelectasis. There is no evidence of pleura l effusion, focal consolidation, or pneumothorax. Pulmonary vascularity: Unremarkable. Heart/mediastinum: Cardiomediastinal silhouette is enlarged and stable. Prostatic right cardiac valv e. A loop recorder projects over the left thorax over the heart. Right anterior chest wall pacemaker with right atrial lead. Musculoskeletal: No acute osseous pathology. IMPRESSION: Stable cardiomegaly. No focal airspace consolidation.
[2022-05-29 18:59] LABS: Basophils % (A) 0 %; Eosinophils # (A) 0.1 k/uL (0-0.7); Eosinophils % (A) 1 %; HCT 45.2 % (34.0-46.0); HGB 15.4 gm/dL (11.4-16.0); Lymphocytes # (A) 1.1 k/uL (1.0-4.8); Lymphocytes % (A) 8 %; MCH 31.1 pg (25.0-35.0); MCHC 34.1 g/dL (31.0-37.0); MCV 91.1 fL (80.0-100.0); Monocytes # (A) 0.7 k/uL (0-1.0); Monocytes % (A) 5 %; Neutrophils # (A) 12.4 k/uL (1.3-7.7); Neutrophils % (A) 85 %; Platelet Count 239 k/uL (150-450); RBC 4.96 m/uL (3.80-5.40); RDW 13.2 % (11.5-15.5); WBC 14.6 k/uL (3.8-10.6)
[2022-05-29 19:10] LABS: Albumin 5.1 g/dL (3.5-5.0); Calcium 9.9 mg/dL (8.4-10.2); Magnesium 2.5 mg/dL (1.6-2.3); Potassium 3.6 mmol/L (3.5-5.1); Total Bilirubin 0.6 mg/dL (0.2-1.3); Total Protein 8.3 g/dL (6.3-8.2)
[2022-05-29 19:14] LABS: Partial Thromboplastin Time 37.2 sec (22.0-30.0); Prothrombin Time 10.7 sec (9.0-12.0)
[2022-05-29] MEDS ORDERED: ASPIRIN 325 MG TAB PO STA (20:20)
[2022-05-29] MEDS ORDERED: NITROGLYCERIN OINT 1 INCH/GM PACKET TOPICAL STA (20:23)
[2022-05-29] MEDS ORDERED: NALOXONE 0.4 MG/ML 1 ML VIAL IV PRN (20:30)
[2022-05-29] MEDS ORDERED: ONDANSETRON ODT 4 MG TAB PO PRN (21:48)
[2022-05-29] MEDS ORDERED: ACETAMINOPHEN TAB 325 MG TAB PO PRN (21:48)
[2022-05-29] MEDS ORDERED: MECLIZINE 12.5 MG TAB PO PRN (21:48)
[2022-05-29] MEDS ORDERED: DICYCLOMINE 20 MG TAB PO PRN (21:48)
[2022-05-29] MEDS ORDERED: IPRATROPIUM 0.5 MG/2.5 ML NEBU INHALATION PRN (21:48)
[2022-05-29] MEDS ORDERED: NON FORMULARY DRUG (Ubrogepant [Ubrelvy] 100 MG Tablet) PO PRN (21:53)
[2022-05-29] MEDS ORDERED: APIXABAN 5 MG TAB PO SCH (22:00)
[2022-05-29] MEDS ORDERED: HEPARIN SODIUM 1,000 UN/ML (10ML VL) IV PRN (22:05)
[2022-05-29] MEDS: TOPIRAMATE 100 MG TAB PO SCH (22:18)
[2022-05-29] MEDS: POTASSIUM CHLORIDE ER 20 MEQ TAB.ER PO SCH (22:18)
[2022-05-29] MEDS: HYDROcodone/APAP 7.5-325MG 1 EACH TAB PO PRN (22:18)
[2022-05-29] MEDS: ATORVASTATIN 40 MG TAB PO SCH (22:19)
[2022-05-29] MEDS: MIDODRINE 5 MG TAB PO SCH (22:19)
[2022-05-29] MEDS: GABAPENTIN 300 MG CAP PO SCH (22:19)
[2022-05-29] MEDS: busPIRone HCl 10 MG TAB PO SCH (22:25)
[2022-05-29] MEDS: HEPARIN SOD,PORK IN 0.45% NACL 25,000 UNIT in 0.45% NACL 1 250ML.BAG IV SCH (22:25)
[2022-05-30] MEDS: HYDROcodone/APAP 7.5-325MG 1 EACH TAB PO PRN ×2 (04:31→15:50)
[2022-05-30 05:13] LABS: Basophils % (A) 0 %; Eosinophils # (A) 0.1 k/uL (0-0.7); Eosinophils % (A) 1 %; HCT 42.7 % (34.0-46.0); Lymphocytes # (A) 1.6 k/uL (1.0-4.8); Lymphocytes % (A) 18 %; MCH 30.7 pg (25.0-35.0); MCHC 32.8 g/dL (31.0-37.0); MCV 93.5 fL (80.0-100.0); Monocytes # (A) 0.5 k/uL (0-1.0); Monocytes % (A) 5 %; Neutrophils # (A) 6.6 k/uL (1.3-7.7); Neutrophils % (A) 73 %; Platelet Count 229 k/uL (150-450); RBC 4.56 m/uL (3.80-5.40); RDW 13.2 % (11.5-15.5); WBC 9.1 k/uL (3.8-10.6)
[2022-05-30 05:59] LABS: Albumin 4.4 g/dL (3.5-5.0); Calcium 8.9 mg/dL (8.4-10.2); Potassium 3.7 mmol/L (3.5-5.1); Total Bilirubin 0.3 mg/dL (0.2-1.3); Total Protein 7.2 g/dL (6.3-8.2)
[2022-05-30] MEDS: SUCRALFATE 1 GM TAB PO SCH ×3 (06:33→16:40)
[2022-05-30] MEDS: MIDODRINE 5 MG TAB PO SCH ×3 (08:08→21:51)
[2022-05-30] MEDS: TOPIRAMATE 100 MG TAB PO SCH ×2 (08:09→21:36)
[2022-05-30] MEDS: SPIRONOLACTONE 25 MG TAB PO SCH (08:09)
[2022-05-30] MEDS: POTASSIUM CHLORIDE ER 20 MEQ TAB.ER PO SCH ×3 (08:09→21:36)
[2022-05-30] MEDS: busPIRone HCl 10 MG TAB PO SCH ×2 (08:09→21:37)
[2022-05-30] MEDS: GABAPENTIN 300 MG CAP PO SCH ×3 (08:09→21:37)
[2022-05-30] MEDS: SERTRALINE 100 MG TAB PO SCH (08:09)
[2022-05-30] MEDS: HYDROCORTISONE 20 MG TAB PO SCH ×2 (08:09→21:36)
[2022-05-30] MEDS: FAMOTIDINE 20 MG/2 ML VIAL IV SCH ×2 (08:10→21:37)
[2022-05-30] MEDS ORDERED: busPIRone HCl 10 MG TAB PO SCH (09:00)
[2022-05-30] MEDS ORDERED: BUMETANIDE 1 MG TAB PO SCH (09:00)
[2022-05-30] MEDS ORDERED: POTASSIUM CHLORIDE ER 20 MEQ TAB.ER PO STA (09:08)
--- NOTE | 2022-05-30 09:15 | P.HPIM ---
History of Present Illness This is a pleasant 57 results female with past medical history of multiple pulmonary embolism, antiphospholipid antibody syndrome causing clot some bleeding, currently on Eliquis at home, chronic kidney disease, hypertension, lupus, pyoderma gangrenosum and decrease pituitary function, migraine, chronic neck and back pain due to herniated disc, RLS and vertigo. Her PCP is Dr. Patel Patient presents because of central chest Pain, Her chest pain is of one-day duration about 7-8/10 in severity currently 3/10 also going to the back. Associated with some exertional dyspnea and dry cough but no phlegm. Also she thinks she has lupus flareup once she feels more sore and she has cramping which usually happens when she has hypokalemia, the cramping is in the back and neck also in her hands. Usually this happens for her potassium is 3.5 for less the wound was 3.6 on admission and 3.7 this morning She feel soreness of the tip of her tongue but there is no ulcer, she thinks that his due to her lupus flareup, she denies any arthralgia or arthritis, no rash, no fresh. She is follow up with cook syrup maker Dr. Morales for repair potassium losing nephropathy, on she will follow up with her cook syrup maker for further workup regarding this. She denies any headache dizziness weakness or numbness She denies any GI or urinary symptoms, no vomiting diarrhea or urgency or dysuria. She denies smoking alcohol or illicit drugs but she uses medical marijuana she states. Vitals are stable and patient is afebrile Labs reviewed showed an unremarkable CBC, d-dimer is -0.3. BMP showing elevated creatinine 1.6 and 1.8, baseline 1.3-1.5 Liver enzymes elevated. Troponin 2 are 0.04 and then came back to normal this morning less than 0.012. ProBNP is slow to 31 EKG showed normal sinus rhythm at [address]-T changes Echocardiogram, done last month 05/14/2022 showing normal LV systolic function with mild concentric LVH, no significant valvular heart disease, no significant pulmonary hypertension or pericardial effusion. Review of Systems Review of systems CONSTITUTIONAL: No fever, no malaise, no fatigue. HEENT: No recent visual problems or hearing problems. Denied any sore throat. CARDIOVASCULAR: No orthopnea, PND, no palpitations, no syncope. PULMONARY: No shortness of breath, no cough, no hemoptysis. GASTROINTESTINAL: No diarrhea, no nausea, no vomiting, no abdominal pain. Normoactive bowel sounds. NEUROLOGICAL: No headaches, no weakness, no numbness. HEMATOLOGICAL: Denies any bleeding or petechiae. GENITOURINARY: Denies any burning micturition, frequency, or urgency. MUSCULOSKELETAL/RHEUMATOLOGICAL: Denies any joint pain, swelling, or any muscle pain. ENDOCRINE: Denies any polyuria or polydipsia. 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 History of Any Multi-Drug Resistant Organisms: C-DIFF Date of last positivie culture/infection: 2021 MDRO Source:: Stool Past Surgical History: Back Surgery, Breast Surgery, Section, Cholecystectomy, Hysterectomy, Pacemaker Additional Past Surgical History / Comment(s): 2 pacemakers d/t bradycardia/hypotension with last one place in 2012 in [place], [place], 3 lower back surgeries, bilateral breast reduction. 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 She uses a cane or walker prn. She is independent. Smoking Status: Never smoker Past Alcohol Use History: None Reported Past Drug Use History: None Reported Additional Drug Use History / Comment(s): Marijuana use prn per pt. - Past Family History Mother Additional Family Medical History / Comment(s): Mother at the age of 49 yrs after surgery for silicon breast implants with a leak that caused ARDS and DIC per pt Father Family Medical History: Cancer, Hyperlipidemia, Hypertension Additional Family Medical History / Comment(s): Father is a colon cancer survivor. Medications and Allergies Home Medications Medication Instructions Recorded Confirmed Type Atorvastatin [Lipitor] 40 mg PO HS 09/24/21 05/29/22 History Bumetanide [BUMEX] 2 mg PO BID 09/24/21 05/29/22 History Cetirizine HCl 10 mg PO DAILY 09/24/21 05/29/22 History Cholestyramine (with Sugar) 4 gm PO DAILY PRN 09/24/21 05/29/22 History [Cholestyramine Packet] Gabapentin 300 mg PO TID 09/24/21 05/29/22 History Sertraline [Zoloft] 200 mg PO DAILY 09/24/21 05/29/22 History Sucralfate 1 gm PO AC-TID 09/24/21 05/29/22 History Ubrogepant [Ubrelvy] 100 mg PO BID PRN 09/24/21 05/29/22 History busPIRone HCl [Buspar] 10 mg PO BID 09/24/21 05/29/22 History rOPINIRole HCL [Requip] 2 mg PO HS 09/24/21 05/29/22 History Budesonide/Glycopyr/Formoterol 1 puff INHALATION RT-BID 03/16/22 05/29/22 History [Breztri Aerosphere Inhaler] Esomeprazole Magnesium [NexIUM] 40 mg PO DAILY 03/16/22 05/29/22 History HYDROcodone/APAP 7.5-325MG [[place] 1 tab PO BID PRN 03/16/22 05/29/22 History 7.5-325] Midodrine [ProAmatine] 5 mg PO TID 03/16/22 05/29/22 History Orphenadrine Citrate [Orphenadrine 100 mg PO HS 03/16/22 05/29/22 History Citrate ER] Topiramate [Topamax] 200 mg PO BID 03/16/22 05/29/22 History Botox 200unit Injection 1 dose INJ Q84D 04/02/22 05/29/22 History Meclizine [Antivert] 12.5 mg PO Q8H PRN 04/02/22 05/29/22 History Hydrocortisone [Cortef] 20 mg PO BID 90 Days #180 tab 04/06/22 05/29/22 Rx Potassium Chloride ER [K-Dur 20] 40 meq PO TID 30 Days #90 tab 04/16/22 05/29/22 Rx Spironolactone [Aldactone] 50 mg PO DAILY 90 Days #90 tab 04/16/22 05/29/22 Rx Diphenhydramine 50mg/Ml Vial 50 mg IV Q6H PRN 04/18/22 05/29/22 History Dicyclomine [Bentyl] 20 mg PO TID PRN #30 tablet 04/30/22 05/29/22 Rx Ondansetron Odt [Zofran ODT] 4 mg PO Q8HR PRN #12 tab 04/30/22 05/29/22 Rx Ipratropium Nebulized [Atrovent 0.5 mg INHALATION RT-QID PRN 05/13/22 05/29/22 History Nebulized 0.2 MG/ML] Acetaminophen Tab [Tylenol] 650 mg PO Q6HR PRN tab 05/17/22 05/29/22 Rx Apixaban [Eliquis] 5 mg PO BID 05/29/22 05/29/22 History Allergies Allergy/AdvReac Type Severity Reaction Status Date / Time Penicillins Allergy Severe Anaphylaxis Verified 05/29/22 19:51 vancomycin Allergy Severe Swelling Verified 05/29/22 19:51 in lips clindamycin Allergy Anaphylaxis Verified 05/29/22 19:51 Influenza Virus Vaccines Allergy Unknown Verified 05/29/22 19:51 latex Allergy Unknown Verified 05/29/22 19:51 morphine Allergy Unknown Verified 05/29/22 19:51 prochlorperazine Allergy Unknown Verified 05/29/22 19:51 [From Compazine] metoclopramide [From Reglan] AdvReac Unknown Verified 05/29/22 19:51 Physical Exam Vitals: Vital Signs Temp Pulse Pulse Resp BP BP Pulse Ox 05/30/22 03:06 98.1 F 78 16 121/80 96 05/30/22 01:12 81 05/29/22 23:31 98.2 F 81 14 109/69 96 05/29/22 21:25 97.8 F 61 18 116/78 97 05/29/22 20:27 78 14 119/88 93 L 05/29/22 18:16 85 18 97 05/29/22 17:56 85 05/29/22 17:12 97.8 F 98 18 131/94 99 Intake and Output 05/29/22 05/30/22 05/30/22 22:59 06:59 14:59 Intake Total 59.762 Balance 59.762 Intake: Intake, IV Titration 59.762 Amount Heparin Sod,Pork in 0.45% 59.762 NaCl 25,000 unit In 0.45 % NaCl 1 250ml.bag @ 12 UNITS/KG/HR 8.437 mls/hr IV .Q24H [facility] Rx#: [id number] Other: # Voids 1 Weight 70.307 kg GENERAL: The patient is alert and oriented x3, not in any acute distress. Well developed, well nourished. HEENT: Pupils are round and equally reacting to light. EOMI. No scleral icterus. No conjunctival pallor. Normocephalic, atraumatic. No pharyngeal erythema. No thyromegaly. CARDIOVASCULAR: S1 and S2 present. No murmurs, rubs, or gallops. PULMONARY: Chest is clear to auscultation, no wheezing or crackles. ABDOMEN: Soft, nontender, nondistended, normoactive bowel sounds. No palpable organomegaly. MUSCULOSKELETAL: No joint swelling or deformity. EXTREMITIES: No cyanosis, clubbing, or pedal edema. NEUROLOGICAL: Gross neurological examination did not reveal any focal deficits. SKIN: No rashes. no petechiae. Results Results: Chest pain, with mildly elevated troponin suspicious for non-STEMI Acute kidney injury on CK D History of multiple pulmonary embolism and antiphospholipid antibody syndrome on Eliquis at home History of lupus and pyoderma gangrenosum Chronic kidney disease stage III Hypertension History of decrease pituitary function History of migraine History of chronic cervical and back pain due to disc disease History of restless leg syndrome History of vertigo CBC & Chem 7: 05/30/22 04:55 05/30/22 04:29 Labs: Abnormal Lab Results - Last 24 Hours (Table) 05/29/22 05/29/22 05/29/22 Range/Units 18:27 18:27 18:27 WBC 14.6 H (3.8-10.6) k/uL Neutrophils # 12.4 H (1.3-7.7) k/uL APTT 37.2 H (22.0-30.0) sec Chloride 95 L (98-107) mmol/L BUN 51 H (7-17) mg/dL Creatinine 1.62 H (0.52-1.04) mg/dL Glucose 101 H (74-99) mg/dL Magnesium 2.5 H (1.6-2.3) mg/dL Troponin I (0.000-0.034) ng/mL Total Protein 8.3 H (6.3-8.2) g/dL Albumin 5.1 H (3.5-5.0) g/dL 05/29/22 05/29/22 05/30/22 Range/Units 18:27 22:07 04:29 WBC (3.8-10.6) k/uL Neutrophils # (1.3-7.7) k/uL APTT (22.0-30.0) sec Chloride (98-107) mmol/L BUN 50 H (7-17) mg/dL Creatinine 1.88 H (0.52-1.04) mg/dL Glucose 144 H (74-99) mg/dL Magnesium (1.6-2.3) mg/dL Troponin I 0.045 H* 0.043 H* (0.000-0.034) ng/mL Total Protein (6.3-8.2) g/dL Albumin (3.5-5.0) g/dL 05/30/22 Range/Units 04:55 WBC (3.8-10.6) k/uL Neutrophils # (1.3-7.7) k/uL APTT 69.5 H (22.0-30.0) sec Chloride (98-107) mmol/L BUN (7-17) mg/dL Creatinine (0.52-1.04) mg/dL Glucose (74-99) mg/dL Magnesium (1.6-2.3) mg/dL Troponin I (0.000-0.034) ng/mL Total Protein (6.3-8.2) g/dL Albumin (3.5-5.0) g/dL Thrombosis Risk Factor Assmnt - Choose All That Apply Any of the Below Risk Factors Present?: Yes Each Factor Represents 1 point: Age 41-60 years, Medical pt on bed rest, Obesity (BMI >25) Each Risk Factor Represents 3 Points: History of DVT/PE Thrombosis Risk Factor Assessment Total Risk Factor Score: 6 Thrombosis Risk Factor Assessment Level: High Risk Assessment and Plan Plan: continue with heparin drip Continue with aspirin Cardiology consult Hold Bumex (did not specifically dose in the hospital ) and monitor creatinine. Check bladder scan and urinalysis Labs and medication were reviewed.. Continue same treatment. Continue with symptomatic treatment. Resume home medication. Monitor labs and vitals. DVT and GI prophylaxis. Further recommendations as per clinical course of the patient DVT prophylaxis: heparin GI Prophylaxis: Pepcid PT/OT: Pending Prognosis is guarded
[2022-05-30] MEDS ORDERED: HYDROmorphone 0.5 MG/0.5 ML SYRINGE IVP STA (10:22)
[2022-05-30] MEDS: diphenhydrAMINE 50 MG/ML 1 ML VIAL IVP PRN ×2 (11:26→18:34)
[2022-05-30 11:42] LABS: Appearance,Urine Clear (Clear); Bilirubin,Urine Negative (Negative); Blood,Urine Negative (Negative); Color,Urine Light Yellow; Glucose,Urine (UA) Negative (Negative); Ketones,Urine Negative (Negative); Leukocyte Esterase,Urine Negative (Negative); Nitrite,Urine Negative (Negative); Protein,Urine Negative (Negative); Specific Gravity,Urine 1.015 (1.001-1.035); Urobilinogen,Urine <2.0 mg/dL (<2.0)
--- NOTE | 2022-05-30 12:09 | P.CRDCN ---
History of Present Illness Consult date: 05/30/22 Requesting physician: [place] E Sheet Reason for Consult (text): Cardiology Chief complaint: chest pain History of present illness: This is a 57-year-old female patient who follows in the office with Dr. Hanson. She has a history of tricuspid valve replacement 2, pyoderma gangrenosa, permanent pacemaker implantation, pulmonary embolism, antiphospholipid antibody syndrome, lupus and spinal stenosis status post surgeries in the past. Presented to the emergency department with complaints of intermittent sharp chest discomfort lasting about 10 seconds. Also having complaints of shortness of breath and cramping in her feet. She felt that maybe her potassium level was low as it's been in the past. She also feels she is retaining fluid in her abdomen. Was noted to have a potassium of 3.7, magnesium 2.5. Her BUN is 51 and creatinine 1.62 which is near her baseline. NT proBNP was normal at 231. Troponins were mildly abnormal at 0.045, 0.043 and less than 0.012. EKG on admission showed sinus mechanism with no evidence of ischemia. Chest x-ray showed stable cardiomegaly, no focal airspace consolidation. She underwent echocardiogram earlier this month which showed normal LV systolic function stable bioprosthetic tricuspid valve, mild MR and mild TR. The patient did, according to her, have cardiac catheterization done in 2019 that was normal. Upon examination she is resting comfortably in bed. Continues to have complaints of intermittent sharp chest discomfort lasting about 10 seconds. She feels that she had relief with Dilaudid and is requesting this to be ordered on an ongoing basis. She complains of shortness of breath, palpitations, dizziness, tinnitus, abdominal edema, orthopnea, nausea without vomiting. 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 History of Any Multi-Drug Resistant Organisms: C-DIFF Date of last positivie culture/infection: 2021 MDRO Source:: Stool Past Surgical History: Back Surgery, Breast Surgery, Section, Cholecystectomy, Hysterectomy, Pacemaker Additional Past Surgical History / Comment(s): 2 pacemakers d/t bradycardia/hy potension with last one place in 2012 in [place], [place], 3 lower back surgeries, bilateral breast reduction. 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 She uses a cane or walker prn. She is independent. Smoking Status: Never smoker Past Alcohol Use History: None Reported Past Drug Use History: None Reported Additional Drug Use History / Comment(s): Marijuana use prn per pt. - Past Family History Mother Additional Family Medical History / Comment(s): Mother at the age of 49 yrs after surgery for silicon breast implants with a leak that caused ARDS and DIC per pt Father Family Medical History: Cancer, Hyperlipidemia, Hypertension Additional Family Medical History / Comment(s): Father is a colon cancer survivor. Medications and Allergies Home Medications Medication Instructions Recorded Confirmed Type Atorvastatin [Lipitor] 40 mg PO HS 09/24/21 05/29/22 History Bumetanide [BUMEX] 2 mg PO BID 09/24/21 05/29/22 History Cetirizine HCl 10 mg PO DAILY 09/24/21 05/29/22 History Cholestyramine (with Sugar) 4 gm PO DAILY PRN 09/24/21 05/29/22 History [Cholestyramine Packet] Gabapentin 300 mg PO TID 09/24/21 05/29/22 History Sertraline [Zoloft] 200 mg PO DAILY 09/24/21 05/29/22 History Sucralfate 1 gm PO AC-TID 09/24/21 05/29/22 History Ubrogepant [Ubrelvy] 100 mg PO BID PRN 09/24/21 05/29/22 History busPIRone HCl [Buspar] 10 mg PO BID 09/24/21 05/29/22 History rOPINIRole HCL [Requip] 2 mg PO HS 09/24/21 05/29/22 History Budesonide/Glycopyr/Formoterol 1 puff INHALATION RT-BID 03/16/22 05/29/22 History [Breztri Aerosphere Inhaler] Esomeprazole Magnesium [NexIUM] 40 mg PO DAILY 03/16/22 05/29/22 History HYDROcodone/APAP 7.5-325MG [[place] 1 tab PO BID PRN 03/16/22 05/29/22 History 7.5-325] Midodrine [ProAmatine] 5 mg PO TID 03/16/22 05/29/22 History Orphenadrine Citrate [Orphenadrine 100 mg PO HS 03/16/22 05/29/22 History Citrate ER] Topiramate [Topamax] 200 mg PO BID 03/16/22 05/29/22 History Botox 200unit Injection 1 dose INJ Q84D 04/02/22 05/29/22 History Meclizine [Antivert] 12.5 mg PO Q8H PRN 04/02/22 05/29/22 History Hydrocortisone [Cortef] 20 mg PO BID 90 Days #180 tab 04/06/22 05/29/22 Rx Potassium Chloride ER [K-Dur 20] 40 meq PO TID 30 Days #90 tab 04/16/22 05/29/22 Rx Spironolactone [Aldactone] 50 mg PO DAILY 90 Days #90 tab 04/16/22 05/29/22 Rx Diphenhydramine 50mg/Ml Vial 50 mg IV Q6H PRN 04/18/22 05/29/22 History Dicyclomine [Bentyl] 20 mg PO TID PRN #30 tablet 04/30/22 05/29/22 Rx Ondansetron Odt [Zofran ODT] 4 mg PO Q8HR PRN #12 tab 04/30/22 05/29/22 Rx Ipratropium Nebulized [Atrovent 0.5 mg INHALATION RT-QID PRN 05/13/22 05/29/22 History Nebulized 0.2 MG/ML] Acetaminophen Tab [Tylenol] 650 mg PO Q6HR PRN tab 05/17/22 05/29/22 Rx Apixaban [Eliquis] 5 mg PO BID 05/29/22 05/29/22 History Allergies Allergy/AdvReac Type Severity Reaction Status Date / Time Penicillins Allergy Severe Anaphylaxis Verified 05/29/22 19:51 vancomycin Allergy Severe Swelling Verified 05/29/22 19:51 in lips clindamycin Allergy Anaphylaxis Verified 05/29/22 19:51 Influenza Virus Vaccines Allergy Unknown Verified 05/29/22 19:51 latex Allergy Unknown Verified 05/29/22 19:51 morphine Allergy Unknown Verified 05/29/22 19:51 prochlorperazine Allergy Unknown Verified 05/29/22 19:51 [From Compazine] metoclopramide [From Reglan] AdvReac Unknown Verified 05/29/22 19:51 Physical Exam Vitals: Vital Signs Temp Pulse Pulse Resp BP BP Pulse Ox 05/30/22 08:15 96 05/30/22 08:00 97.3 F L 70 18 126/86 97 05/30/22 03:06 98.1 F 78 16 121/80 96 05/30/22 01:12 81 05/29/22 23:31 98.2 F 81 14 109/69 96 05/29/22 21:25 97.8 F 61 18 116/78 97 05/29/22 20:27 78 14 119/88 93 L 05/29/22 18:16 85 18 97 05/29/22 17:56 85 05/29/22 17:12 97.8 F 98 18 131/94 99 Intake and Output 05/29/22 05/30/22 05/30/22 22:59 06:59 14:59 Intake Total 59.762 Output Total 400 Balance 59.762 -400 Intake: Intake, IV Titration 59.762 Amount Heparin Sod,Pork in 0.45% 59.762 NaCl 25,000 unit In 0.45 % NaCl 1 250ml.bag @ 12 UNITS/KG/HR 8.437 mls/hr IV .Q24H [facility] Rx#: [id number] Output: Urine 400 Other: Voiding Method Toilet # Voids 1 Weight 70.307 kg PHYSICAL EXAMINATION: This is a 57-year-old female in no apparent distress at the time of my examination. HEENT: Head is atraumatic, normocephalic. Pupils are equal, round. Sclerae anicteric. Conjunctivae are clear. Mucous membranes of the mouth are moist. Neck is supple. There is no elevated jugular venous pressure. No carotid bruit is heard. CHEST EXAMINATION: Clear to auscultation bilaterally. No wheezes rales or rhonchi. Respirations even and nonlabored. HEART EXAMINATION: Heart regular, positive S1 and S2. No S3. No S4. No clicks, rubs or murmurs. ABDOMEN: Soft, nontender. Bowel sounds are heard. No organomegaly noted. EXTREMITIES: 2+ peripheral pulses with no evidence of peripheral edema and no calf tenderness noted. NEUROLOGIC EXAMINATION: Patient is awake, alert and oriented x3. Results 05/30/22 04:55 05/30/22 04:29 Cardiac Enzymes 05/29/22 05/29/22 05/29/22 Range/Units 18: 18: 22:07 AST 33 (14-36) U/L Troponin I 0.045 H* 0.043 H* (0.000-0.034) ng/mL 05/30/22 05/30/22 Range/Units 04:29 04:29 AST 25 (14-36) U/L Troponin I <0.012 (0.000-0.034) ng/mL Coagulation 05/29/22 05/30/22 05/30/22 Range/Units 18: 04:55 11:08 PT 10.7 (9.0-12.0) sec APTT 37.2 H 69.5 H 57.6 H (22.0-30.0) sec CBC 05/29/22 05/30/22 Range/Units 18:27 04:55 WBC 14.6 H 9.1 (3.8-10.6) k/uL RBC 4.96 4.56 (3.80-5.40) m/uL Hgb 15.4 14.0 (11.4-16.0) gm/dL Hct 45.2 42.7 (34.0-46.0) % Plt Count 239 229 (150-450) k/uL Comprehensive Metabolic Panel 05/29/22 05/30/22 Range/Units 18:27 04:29 Sodium 140 138 (137-145) mmol/L Potassium 3.6 3.7 (3.5-5.1) mmol/L Chloride 95 L 99 (98-107) mmol/L Carbon Dioxide 27 28 (22-30) mmol/L BUN 51 H 50 H (7-17) mg/dL Creatinine 1.62 H 1.88 H (0.52-1.04) mg/dL Glucose 101 H 144 H (74-99) mg/dL Calcium 9.9 8.9 (8.4-10.2) mg/dL AST 33 25 (14-36) U/L ALT 30 25 (4-34) U/L Alkaline Phosphatase 84 76 (38-126) U/L Total Protein 8.3 H 7.2 (6.3-8.2) g/dL Albumin 5.1 H 4.4 (3.5-5.0) g/dL Current Medications Generic Name Dose Route Start Last Admin Trade Name Freq PRN Reason Stop Dose Admin Acetaminophen 650 mg 05/29/22 21:48 Acetaminophen Tab 325 Mg Tab PO Q6HR PRN Mild Pain or Fever > 100.5 Hydrocodone Bitart/Acetaminophen 1 each 05/29/22 21:48 05/30/22 04:31 Hydrocodone/Apap 7.5-325mg 1 Each Tab PO 1 each BID PRN Administration Pain Atorvastatin Calcium 40 mg 05/29/22 22:00 05/29/22 22:19 Atorvastatin 40 Mg Tab PO 40 mg HS ASAD Administration Buspirone HCl 10 mg 05/29/22 22:13 05/30/22 08:09 Buspirone Hcl 10 Mg Tab PO 10 mg BID ASAD Administration Dicyclomine HCl 20 mg 05/29/22 21:48 Dicyclomine 20 Mg Tab PO TID PRN Pain Diphenhydramine HCl 50 mg 05/30/22 11:07 05/30/22 11:26 Diphenhydramine 50 Mg/Ml 1 Ml Vial IVP 50 mg Q6H PRN Administration Allergy Symptoms Famotidine 10 mg 05/30/22 09:00 05/30/22 08:10 Famotidine 20 Mg/2 Ml Vial IV 10 mg Q12HR ASAD Administration Gabapentin 300 mg 05/29/22 22:00 05/30/22 08:09 Gabapentin 300 Mg Cap PO 300 mg TID ASAD Administration Heparin Sodium (Porcine) 0 unit 05/29/22 22:05 Heparin Sodium 1,000 Un/Ml (10ml Vl) IV PER PROTOCOL PRN Low PTT Protocol Hydrocortisone 20 mg 05/30/22 09:00 05/30/22 08:09 Hydrocortisone 20 Mg Tab PO 20 mg BID ASAD Administration Heparin Sodium/Sodium Chloride 250 mls @ 8.437 mls/hr 05/29/22 22:15 05/30/22 05:30 25,000 unit/ Sodium Chloride IV 10 units/kg/hr .Q24H [facility] 7.031 mls/hr Titration Protocol 12 UNITS/KG/HR Dobutamine HCl/Dextrose 500 mg 250 mls @ 21.092 mls/hr 05/31/22 06:00 / IV Solution IV 05/31/22 23:00 .[id number] PRN Per Protocol Protocol 10 MCG/KG/MIN Ipratropium [place] 0.5 mg 05/29/22 21:48 Ipratropium 0.5 Mg/2.5 Ml Nebu INHALATION RT-QID PRN Shortness Of Breath Meclizine HCl 12.5 mg 05/29/22 21:48 Meclizine 12.5 Mg Tab PO Q8H PRN Vertigo Midodrine 5 mg 05/29/22 22:00 05/30/22 08:08 Midodrine 5 Mg Tab PO Not Given TID ASAD Naloxone HCl 0.2 mg 05/29/22 20:30 Naloxone 0.4 Mg/Ml 1 Ml Vial IV Q2M PRN Opioid Reversal Non-Formulary Medication 100 mg 05/29/22 21:53 Ubrogepant [Ubrelvy] PO BID PRN Migraine Headache Ondansetron HCl 4 mg 05/29/22 21:48 05/30/22 04:42 Ondansetron Odt 4 Mg Tab PO 4 mg Q8HR PRN Administration Nausea Potassium Chloride 40 meq 05/29/22 22:00 05/30/22 08:09 Potassium Chloride Er 20 Meq Tab.Er PO 40 meq TID ASAD Administration Ropinirole HCl 2 mg 05/29/22 22:13 05/29/22 22:18 Ropinirole Hcl 1 Mg Tab PO 2 mg HS ASAD Administration Sertraline HCl 200 mg 05/30/22 09:00 05/30/22 08:09 Sertraline 100 Mg Tab PO 200 mg DAILY ASAD Administration Spironolactone 50 mg 05/30/22 09:00 05/30/22 08:09 Spironolactone 25 Mg Tab PO 50 mg DAILY ASAD Administration Sucralfate 1 gm 05/30/22 07:30 05/30/22 11:25 Sucralfate 1 Gm Tab PO 1 gm AC-TID ASAD Administration Topiramate 200 mg 05/29/22 22:00 05/30/22 08:09 Topiramate 100 Mg Tab PO 200 mg BID ASAD Administration Intake and Output 05/29/22 05/30/22 05/30/22 22:59 06:59 14:59 Intake Total 59.762 Output Total 400 Balance 59.762 -400 Intake: Intake, IV Titration 59.762 Amount Heparin Sod,Pork in 0.45% 59.762 NaCl 25,000 unit In 0.45 % NaCl 1 250ml.bag @ 12 UNITS/KG/HR 8.437 mls/hr IV .Q24H [facility] Rx#: [id number] Output: Urine 400 Other: Voiding Method Toilet # Voids 1 Weight 70.307 kg 05/30/22 04:55 05/30/22 04:29 Assessment and Plan Assessment: #1 chest pain, atypical #2 status post tricuspid valve replacement #3 status post permanent pacemaker implantation for complete heart block 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 If the stress echo is normal will discontinue heparin and resume the patient's Eliquis. We will continue to follow the patient had further recommendations accordingly. [employer] SUPERINTEND[employer] note has been reviewed, I agree with a documented findings and plan of care. Patient was seen and examined.
[2022-05-30] MEDS ORDERED: HYDROmorphone 0.5 MG/0.5 ML SYRINGE IVP PRN (17:49)
[2022-05-30] MEDS: ATORVASTATIN 40 MG TAB PO SCH (21:36)
[2022-05-31] MEDS: HYDROmorphone 0.5 MG/0.5 ML SYRINGE IVP PRN ×4 (00:05→19:53)
[2022-05-31] MEDS: HEPARIN SOD,PORK IN 0.45% NACL 25,000 UNIT in 0.45% NACL 1 250ML.BAG IV SCH ×2 (00:16→06:09)
[2022-05-31 05:41] LABS: HCT 34.3 % (34.0-46.0); HGB 11.5 gm/dL (11.4-16.0); MCH 31.1 pg (25.0-35.0); MCHC 33.3 g/dL (31.0-37.0); MCV 93.3 fL (80.0-100.0); Mean Platelet Volume 8.1; Platelet Count 166 k/uL (150-450); RBC 3.68 m/uL (3.80-5.40); WBC 6.1 k/uL (3.8-10.6)
[2022-05-31 06:00] LABS: Potassium 4.6 mmol/L (3.5-5.1)
[2022-05-31] MEDS ORDERED: DOBUTamine DRIP for NUC MED 500 MG in DEXTROSE/WATER 1 250ML.BAG IV PRN (06:00)
[2022-05-31 06:11] LABS: Calcium 8.7 mg/dL (8.4-10.2)
[2022-05-31] MEDS: diphenhydrAMINE 50 MG/ML 1 ML VIAL IVP PRN ×3 (06:29→20:26)
--- NOTE | 2022-05-31 08:59 | XR ---
EXAMINATION TYPE: XR chest 1V DATE OF EXAM: 05/31/2022 CLINICAL HISTORY: Chest pain progress study. TECHNIQUE: Single AP portable upright view of the chest is obtained. COMPARISON: Chest x-ray from 2 day earlier FINDINGS: There is chronic parenchymal change bilaterally without suspicious focal airspace opacity, pleural effusion, or pneumothorax seen. Stable mild cardiomegaly with single lead right-sided pacema ker. Stable left-sided PICC line. Stent graft overlying the lower heart in the midline is redemonstra reynold. Overlying loop recorder redemonstrated. There are old lateral left upper to mid rib fractures re demonstrated. IMPRESSION: Chronic changes and mild cardiomegaly without acute pulmonary process. No significant seymour nge from recent x-ray.
[2022-05-31] MEDS ORDERED: DOBUTamine DRIP for NUC MED 500 MG/250 ML BAG IV ONE (09:20)
[2022-05-31] MEDS ORDERED: MIDAZOLAM 2 MG/2 ML VIAL IV STA ×2 (10:04→10:20)
[2022-05-31 11:08] LABS: Glucose,Whole Blood 79 mg/dL (70-110)
[2022-05-31] MEDS: MIDODRINE 5 MG TAB PO SCH ×3 (11:22→21:15)
--- NOTE | 2022-05-31 11:23 | CT ---
EXAMINATION TYPE: CT brain wo con CT DLP: 1114.4 mGycm, Automated exposure control for dose reduction was used. DATE OF EXAM: 05/31/2022 11:11 AM COMPARISON: None. CLINICAL INDICATION:Female, 57 years old with history of seizure, Seizure, hx seizures TECHNIQUE: Brain: Multiple axial CT images of the brain were obtained without IV contrast. Coronal and sagittal reformats reviewed. FINDINGS: Brain: Extra-axial spaces: No abnormal extra-axial fluid collections. Ventricular system: Within normal limits Cerebral parenchyma: No acute intraparenchymal hemorrhage or mass effect. The mar-white junction is well differentiated. Cerebellum: Unremarkable. Mass effect: No evidence of midline shift. Intracranial vasculature: Atherosclerotic calcifications of the intracranial vessels. Soft tissues: Normal. Calvarium/osseous structures: No depressed skull fracture. Paranasal sinuses and mastoid air cells: Clear Visualized orbits: Orbital contents are intact. IMPRESSION: No acute intracranial process.
--- NOTE | 2022-05-31 11:25 | P.CNNES ---
History of Present Illness Consult date: 05/31/22 Requesting physician: [place] E Sheet Reason for Consult: seizure History of Present Illness: This is a 57-year-old woman with history of diagnosis of nonepileptic seizures, traumatic brain injury in 2007, post traumatic migraines chronic back pain, multiple pulmonary embolism due to antiphospholipid antibody on eliquis, lupus, pyoderma gangrenosum, anxiety who presented to the hospital because of chest pain. Neurology team consulted for seizure. Patient is on Topamax 200mg 1 tab bid. Is on Ubrelvy for migraine and Botox injection. Is also on Buspar for her psychiatric history. Some of the history is obtained from patient's nurse and nurse that responded to A-team. It seems that the patient after getting nuclear medicine imaging by cardiology, she had seizure like episode. According to the nurse she had extension of her upper extremity eyes closed with foaming around the mouth today in the morning and the subtle tremor. While her floor nurse that had her on the floors she also evaluated her when in a team was called and stated the patient's mouth was clenched but had no foaming around the mouth and no postictal confusion. Episode lasted for a few minutes possibly at least 4 minutes and as a result she was given 4 mg of Versed. Currently patient states that she's doing much better. She stated that she had a seizure-like activity about a week ago and she gets most of the episodes when she is under stress or sick. She has not followed up with a neurologist since dealing with other issues. She's not follow up with a psychiatrist or psychologist. Of note patient was seen by our team in the past multiple times and the last time she was seen by Dr. Pinon on 05/15/2022 for breakthrough seizure and he stated that it was due to her missing 2 days of Topamax. According to his note that he stated that the semiology of the seizure events appear nonepileptic. He recommended to continue Topamax 200 mg one tablet twice a day. Please review his notes for further details. Also of note I seen the patient on August 2021 for her seizures and at that time that she notified me she had extensive workup as an outpatient and was at [facility] and had multiple EEGs and imaging was told she had pseudoseizures. Some other workup during this hospital visit consisted of: Her initial loss serum glucose is 101 and today it saw 125. Calcium is 8.7. Initially the patient had minimal elevated troponin that normalized. Review of Systems Review of system: The 12 point system was reviewed and apparent positive and negative per HPI. 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 History of Any Multi-Drug Resistant Organisms: C-DIFF Date of last positivie culture/infection: 2021 MDRO Source:: Stool Past Surgical History: Back Surgery, Breast Surgery, Section, Cholecystectomy, Hysterectomy, Pacemaker Additional Past Surgical History / Comment(s): 2 pacemakers d/t bradycardia/hypotension with last one place in 2012 in [place], [place], 3 lower back surgeries, bilateral breast reduction. 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 She uses a cane or walker prn. She is independent. Smoking Status: Never smoker Past Alcohol Use History: None Reported Past Drug Use History: None Reported Additional Drug Use History / Comment(s): Marijuana use prn per pt. - Past Family History Mother Additional Family Medical History / Comment(s): Mother at the age of 49 yrs after surgery for silicon breast implants with a leak that caused ARDS and DIC per pt Father Family Medical History: Cancer, Hyperlipidemia, Hypertension Additional Family Medical History / Comment(s): Father is a colon cancer survivor. Medications and Allergies Home Medications Medication Instructions Recorded Confirmed Type Atorvastatin [Lipitor] 40 mg PO HS 09/24/21 05/29/22 History Bumetanide [BUMEX] 2 mg PO BID 09/24/21 05/29/22 History Cetirizine HCl 10 mg PO DAILY 09/24/21 05/29/22 History Cholestyramine (with Sugar) 4 gm PO DAILY PRN 09/24/21 05/29/22 History [Cholestyramine Packet] Gabapentin 300 mg PO TID 09/24/21 05/29/22 History Sertraline [Zoloft] 200 mg PO DAILY 09/24/21 05/29/22 History Sucralfate 1 gm PO AC-TID 09/24/21 05/29/22 History Ubrogepant [Ubrelvy] 100 mg PO BID PRN 09/24/21 05/29/22 History busPIRone HCl [Buspar] 10 mg PO BID 09/24/21 05/29/22 History rOPINIRole HCL [Requip] 2 mg PO HS 09/24/21 05/29/22 History Budesonide/Glycopyr/Formoterol 1 puff INHALATION RT-BID 03/16/22 05/29/22 History [Breztri Aerosphere Inhaler] Esomeprazole Magnesium [NexIUM] 40 mg PO DAILY 03/16/22 05/29/22 History HYDROcodone/APAP 7.5-325MG [[place] 1 tab PO BID PRN 03/16/22 05/29/22 History 7.5-325] Midodrine [ProAmatine] 5 mg PO TID 03/16/22 05/29/22 History Orphenadrine Citrate [Orphenadrine 100 mg PO HS 03/16/22 05/29/22 History Citrate ER] Topiramate [Topamax] 200 mg PO BID 03/16/22 05/29/22 History Botox 200unit Injection 1 dose INJ Q84D 04/02/22 05/29/22 History Meclizine [Antivert] 12.5 mg PO Q8H PRN 04/02/22 05/29/22 History Hydrocortisone [Cortef] 20 mg PO BID 90 Days #180 tab 04/06/22 05/29/22 Rx Potassium Chloride ER [K-Dur 20] 40 meq PO TID 30 Days #90 tab 04/16/22 05/29/22 Rx Spironolactone [Aldactone] 50 mg PO DAILY 90 Days #90 tab 04/16/22 05/29/22 Rx Diphenhydramine 50mg/Ml Vial 50 mg IV Q6H PRN 04/18/22 05/29/22 History Dicyclomine [Bentyl] 20 mg PO TID PRN #30 tablet 04/30/22 05/29/22 Rx Ondansetron Odt [Zofran ODT] 4 mg PO Q8HR PRN #12 tab 04/30/22 05/29/22 Rx Ipratropium Nebulized [Atrovent 0.5 mg INHALATION RT-QID PRN 05/13/22 05/29/22 History Nebulized 0.2 MG/ML] Acetaminophen Tab [Tylenol] 650 mg PO Q6HR PRN tab 05/17/22 05/29/22 Rx Apixaban [Eliquis] 5 mg PO BID 05/29/22 05/29/22 History Galcanezumab-Gnlm [Emgality Pen] 120 mg SQ Q30D 05/31/22 05/31/22 History Allergies Allergy/AdvReac Type Severity Reaction Status Date / Time Penicillins Allergy Severe Anaphylaxis Verified 05/29/22 19:51 vancomycin Allergy Severe Swelling Verified 05/29/22 19:51 in lips clindamycin Allergy Anaphylaxis Verified 05/29/22 19:51 Influenza Virus Vaccines Allergy Unknown Verified 05/29/22 19:51 latex Allergy Unknown Verified 05/29/22 19:51 morphine Allergy Unknown Verified 05/29/22 19:51 prochlorperazine Allergy Unknown Verified 05/29/22 19:51 [From Compazine] metoclopramide [From Reglan] AdvReac Unknown Verified 05/29/22 19:51 Physical Examination - Vital Signs Vital Signs: Vital Signs Temp Pulse Pulse Resp BP BP Pulse Ox 05/31/22 08:00 97.6 F 70 17 116/78 99 05/31/22 07:46 96 05/31/22 03:43 97.6 F 74 16 133/90 95 05/31/22 00:00 97.4 F L 71 16 138/90 99 05/30/22 21:30 69 18 124/88 97 05/30/22 20:00 98.3 F 62 17 116/67 97 05/30/22 15:54 98.6 F 68 18 124/77 98 05/30/22 12:00 97.9 F 75 17 128/75 96 Intake and Output 05/30/22 05/31/22 05/31/22 22:59 06:59 14:59 Intake Total 173.314 16.031 Balance 173.314 16.031 Intake: Intake, IV Titration 173.314 16.031 Amount Heparin Sod,Pork in 0.45% 173.314 16.031 NaCl 25,000 unit In 0.45 % NaCl 1 250ml.bag @ 12 UNITS/KG/HR 8.437 mls/hr IV .Q24H [facility] Rx#: [id number] Other: Voiding Method Toilet Toilet # Voids 1 GENERAL: The patient is lying in bed and is not in acute distress. CHEST: The heart rate is regular rate rhythm. No murmurs to auscultation. LUNG: Clear to auscultation bilaterally no wheezing noted throughout. Not labored breathing. ABDOMEN/GI: Bowel sounds present in all 4 quadrants. No tenderness to palpation throughout. NEUROLOGICAL: Higher mental function: The patient is awake, alert, oriented to self, place and time. Patient is following commands. No aphasia and no neglect. Cranial nerves: The pupils are round, equal and reactive to light and accommodation. Visual pierce are full to confrontation throughout. Extraocular movement is intact no nystagmus is noted. Facial sensation is normal to touch throughout. The facial strength is normal throughout. Hearing is normal bilaterally to hand rub. Tongue is midline and moved [id number] without any difficulty. No dysarthria is noted. Shoulder shrug is normal bilaterally. Motor: The strength is 5 over 5 throughout. Normal tone and bulk. Cerebellum: Normal finger to nose bilaterally. Sensation: Sensation is normal to touch throughout. Reflexes (right/left): 2+ throughout.. Plantars are downgoing bilaterally. Results - Laboratory Findings CBC and BMP: 05/31/22 05:30 05/31/22 05:30 Abnormal Lab Findings: Abnormal Labs 05/29/22 05/29/22 05/29/22 18:27 18:27 18:27 WBC 14.6 H RBC Neutrophils # 12.4 H APTT 37.2 H Chloride 95 L BUN 51 H Creatinine 1.62 H Glucose 101 H Magnesium 2.5 H Troponin I Total Protein 8.3 H Albumin 5.1 H 05/29/22 05/29/22 05/30/22 18:27 22:07 04:29 WBC RBC Neutrophils # APTT Chloride BUN 50 H Creatinine 1.88 H Glucose 144 H Magnesium Troponin I 0.045 H* 0.043 H* Total Protein Albumin 05/30/22 05/30/22 05/31/22 04:55 11:08 05:30 WBC RBC 3.68 L Neutrophils # APTT 69.5 H 57.6 H Chloride BUN Creatinine Glucose Magnesium Troponin I Total Protein Albumin 05/31/22 05/31/22 05:30 05:30 WBC RBC Neutrophils # APTT 79.1 H Chloride 109 H BUN 30 H Creatinine 1.27 H Glucose 125 H Magnesium Troponin I Total Protein Albumin Assessment and Plan Assessment: * Break-through seizure (seizure-like activity reported by nurse with arm extension and one of the nurse felt jaw clenched but no foaming around the mouth and no post-ictal confusion while other nurse felt possible foaming and some post-ictal confusion) Unsure if it was truly epilepitic in nature vs her usual non-epileptic. * History of nonepileptic seizures (patient had extensive workup and [facility] and had imaging and multiple EEGs and was told she had pseudoseizures) as well as had the multiple visits in our facility * Acute chest pain with mild elevated troponin * History of traumatic brain injury in 2007 * Post traumatic migraines * Chronic back pain * History of multiple pulmonary embolism due to antiphospholipid antibody on eliquis * Lupus * History of pyoderma gangrenosum * Neuropathy * Anxiety * Polypharmacy Plan: Continue Topamax 200 mg 1 tablet twice a day which helps with migraines as well as seizures. Also patient is on gabapentin for neuropathy 300 mg 1 tablet 3 times a day which also was considered antiepileptic I ordered an urgent EEG but patient refused to pursue with EEG. T of the head is ordered by the primary team BuSpar lowers the seizure threshold and recommend the discontinue it was something else. Recommend patient to follow-up with a neurologist as outpatient for gavin mmendation of prolonged EEG/epilepsy monitoring unit to capture events and rule out any epileptic episodes. Patient stated she had extensive workup at [facility] and was told not epileptic that was diagnosed. I feel the patient is on polypharmacy and recommended modification or for her medications by her PCP. Cardiology is on board Recommend the patient follow up with a psychiatrist or psychologist s outpatient. We'll defer the rest of the medical management to primary team Per the [place] DMV, he still avoid driving for 6 month until seizure-free. Avoid heights, using heavy machinery or swimming unassisted and this was notified to patient. Upon discharge recommend the patient follow up with a neurologist in outpatient within 1-2 weeks. Plan discussed with the patient, her primary team and her nurse. If no further seizures by tomorrow then she is clear for discharge. Thank you for the consultation. Spend total of 35 minutes with care (going over history, examination, reviewing imaging/labs and going over plan). Time with Patient: Greater than 30
--- NOTE | 2022-05-31 12:03 | CA ---
Dobutamine Stress Echocardiogram Report Dania Meza Age: 57 Gender: F : 1965 Exam Date: 05/31/2022 09:39 Exam Location: [facility] Ordering Physician: Candis Andrews Referring Physician: [id number] Ledesma Retail Shift Supervisor: LAILA Technologist: Ht (in): 62 Wt (lb): 155 Procedure CPT: Indication: Chest Pain ICD-9 Codes: Rhythm: Patient History: CHEST PAIN, DIFFICULTY IN BREATHING, PALPITATIONS, ELEVATED CHOLESTEROL LEVELS, FAMILY HX OF HEART DISEASE, PRIOR CARDIAC CATH Cardiac Medications: Medications in past 24 hours: Contrast: Lumason Total Dose (mL): 1 Stress Results Protocol: Dobutamine Peak Dose (???g/kg/min): 40 Duration (min:sec): Atropine:(mg) Target HR: 138 Double Product: 63106 Resting HR: 71 Resting BP: 106 / 70 Peak HR: 141 Peak BP: 145 / 74 Max Predicted HR: 162 87 % Max Predicted HR Stress Summary: BP Response: Reason for Termination: INFUSION COMPLETE,Target HR Cardiac Symptoms: DIFFICULTY IN BREATHING,SEIZURE ECG Analysis Resting EKG: Stress EKG: Arrhythmia: Echo Analysis Base Echo Analysis: Low Echo Anaylsis: Peak Echo Analysis: Recovery Echo: MEASUREMENTS (Male/Female) Normal Values CONCLUSIONS Normal EKG in response to dobutamine Normal echocardiogram in response to dobutamine Please note that the study was terminated at peak heart rate because the patient had seizure Dr. Reed Deleon MD (Electronically Signed) Final Date: 31 May 2022 12:02
[2022-05-31] MEDS: SPIRONOLACTONE 25 MG TAB PO SCH (12:31)
[2022-05-31] MEDS: FAMOTIDINE 20 MG/2 ML VIAL IV SCH ×2 (12:31→21:15)
[2022-05-31] MEDS: POTASSIUM CHLORIDE ER 20 MEQ TAB.ER PO SCH ×3 (12:32→21:15)
[2022-05-31] MEDS: SUCRALFATE 1 GM TAB PO SCH ×3 (12:32→17:00)
[2022-05-31] MEDS: GABAPENTIN 300 MG CAP PO SCH ×3 (12:32→21:15)
--- NOTE | 2022-05-31 12:55 | P.PN ---
Subjective HISTORY OF PRESENTING ILLNESS This is a 57-year-old female patient who follows in the office with Dr. Hanson. She has a history of tricuspid valve replacement 2, pyoderma gangrenosa, permanent pacemaker implantation, pulmonary embolism, antiphospholipid antibody syndrome, lupus and spinal stenosis status post surgeries in the past. Presented to the emergency department with complaints of intermittent sharp chest discomfort lasting about 10 seconds. Also having complaints of shortness of breath and cramping in her feet. She felt that maybe her potassium level was low as it's been in the past. She also feels she is retaining fluid in her abdomen. Was noted to have a potassium of 3.7, magnesium 2.5. Her BUN is 51 and creatinine 1.62 which is near her baseline. NT proBNP was normal at 231. Troponins were mildly abnormal at 0.045, 0.043 and less than 0.012. EKG on admission showed sinus mechanism with no evidence of ischemia. Chest x-ray showed stable cardiomegaly, no focal airspace consolidation. She underwent echocardiogram earlier this month which showed normal LV systolic function stable bioprosthetic tricuspid valve, mild MR and mild TR. The patient did, according to her, have cardiac catheterization done in 2019 that was normal. Upon examination she is resting comfortably in bed. Continues to have complaints of intermittent sharp chest discomfort lasting about 10 seconds. She feels that she had relief with Dilaudid and is requesting this to be ordered on an ongoing basis. She complains of shortness of breath, palpitations, dizziness, tinnitus, abdominal edema, orthopnea, nausea without vomiting. 05/31 patient seen and examined. Patient underwent dobutamine stress echo this morning and after the dobutamine infusion had been discontinued she had seizure- like activity, apparently for some twitching of the lips and then was unresponsive. Patient was given 4 of Versed with return to normal and currently not having any complaints other than headache. She states this feels similar to her prior seizures. She is not noted to be hypotensive and sugar level was normal. PHYSICAL EXAMINATION Vital signs reviewed. CONSTITUTIONAL: No apparent distress. HEENT: Head is normocephalic. Pupils are equal, round. Sclerae anicteric. Mucous membranes of the mouth are moist. No JVD. No carotid bruit. CHEST EXAMINATION: Lungs are clear to auscultation. No chest wall tenderness is noted on palpation or with deep breathing. HEART EXAMINATION: Regular rate and rhythm. S1, S2 heard. No murmurs, gallops or rub. ABDOMEN: Soft, nontender. Positive bowel sounds. EXTREMITIES: 2+ peripheral pulses, no lower extremity edema and no calf tenderness. NEUROLOGIC EXAMINATION: Patient is awake, alert and oriented x3. 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 Seizure after stress test not felt to be cardiac related. Continue current medical regimen. No further workup as an inpatient from a cardiology standpoint. Objective - Vital Signs Vital signs: Vital Signs Temp 97.6 F 05/31/22 08:00 Pulse 70 05/31/22 08:00 Resp 17 05/31/22 08:00 BP 116/78 05/31/22 08:00 Pulse Ox 99 05/31/22 08:00 FiO2 Intake & Output 05/30/22 05/31/22 05/31/22 18:59 06:59 18:59 Intake Total 173.314 16.031 Output Total 400 Balance -400 173.314 16.031 Intake: Intake, IV Titration 173.314 16.031 Amount Heparin Sod,Pork in 0.45% 173.314 16.031 NaCl 25,000 unit In 0.45 % NaCl 1 250ml.bag @ 12 UNITS/KG/HR 8.437 mls/hr IV .Q24H [facility] Rx#: [id number] Output: Urine 400 Other: Voiding Method Toilet Toilet # Voids 1 - Labs CBC & Chem 7: 05/31/22 05:30 05/31/22 05:30 Labs: Abnormal Lab Results - Last 24 Hours (Table) 05/31/22 05/31/22 05/31/22 Range/Units 05:30 05:30 05:30 RBC 3.68 L (3.80-5.40) m/uL APTT 79.1 H (22.0-30.0) sec Chloride 109 H (98-107) mmol/L BUN 30 H (7-17) mg/dL Creatinine 1.27 H (0.52-1.04) mg/dL Glucose 125 H (74-99) mg/dL
--- NOTE | 2022-05-31 13:15 | P.PN ---
Subjective This is a pleasant 57 results female with past medical history of multiple pulmonary embolism, antiphospholipid antibody syndrome causing clot some bleeding, currently on Eliquis at home, chronic kidney disease, hypertension, lupus, pyoderma gangrenosum and decrease pituitary function, migraine, chronic neck and back pain due to herniated disc, RLS and vertigo. Her PCP is Dr. Patel Patient presents because of central chest Pain, Her chest pain is of one-day duration about 7-8/10 in severity currently 3/10 also going to the back. Associated with some exertional dyspnea and dry cough but no phlegm. Also she thinks she has lupus flareup once she feels more sore and she has cramping which usually happens when she has hypokalemia, the cramping is in the back and neck also in her hands. Usually this happens for her potassium is 3.5 for less the wound was 3.6 on admission and 3.7 this morning She feel soreness of the tip of her tongue but there is no ulcer, she thinks that his due to her lupus flareup, she denies any arthralgia or arthritis, no rash, no fresh. She is follow up with tool adjuster Dr. Morales for repair potassium losing nephropathy, on she will follow up with her tool adjuster for further workup regarding this. She denies any headache dizziness weakness or numbness She denies any GI or urinary symptoms, no vomiting diarrhea or urgency or dysuria. She denies smoking alcohol or illicit drugs but she uses medical marijuana she states. Vitals are stable and patient is afebrile Labs reviewed showed an unremarkable CBC, d-dimer is -0.3. BMP showing elevated creatinine 1.6 and 1.8, baseline 1.3-1.5 Liver enzymes elevated. Troponin 2 are 0.04 and then came back to normal this morning less than 0.012. ProBNP is slow to 31 EKG showed normal sinus rhythm at [address]-T changes Echocardiogram, done last month 05/14/2022 showing normal LV systolic function with mild concentric LVH, no significant valvular heart disease, no significant pulmonary hypertension or pericardial effusion. 05/31/2022 Patient had a negative dobutamine stress test this morning however after the procedure she developed witnessed seizure by cardiology team will contact me, patient received Versed and was sent to the eye temporally however she tells the brain was negative, patient also reviewed EEG, discussed the case with neurology service and we are in agreement that patient can be downgraded to the telemetry medical floor, However her heparin is which back to her home dose of Eliquis, she has history of PE related to her antiphospholipid syndrome and 2+. She was also complaining of from some pain below her left armpit, chest x-ray this morning was unremarkable. BuSpar was discontinued for lower seizure threshold, psych consult obtained. She remains on gabapentin and Topamax. We will continue monitoring for now Objective - Vital Signs Vital signs: Vital Signs Temp 97.6 F 05/31/22 08:00 Pulse 70 05/31/22 08:00 Resp 17 05/31/22 08:00 BP 116/78 05/31/22 08:00 Pulse Ox 99 05/31/22 08:00 FiO2 Intake & Output 05/30/22 05/31/22 05/31/22 18:59 06:59 18:59 Intake Total 173.314 16.031 Output Total 400 Balance -400 173.314 16.031 Intake: Intake, IV Titration 173.314 16.031 Amount Heparin Sod,Pork in 0.45% 173.314 16.031 NaCl 25,000 unit In 0.45 % NaCl 1 250ml.bag @ 12 UNITS/KG/HR 8.437 mls/hr IV .Q24H [facility] Rx#: [id number] Output: Urine 400 Other: Voiding Method Toilet Toilet # Voids 1 - Exam GENERAL: The patient is alert and oriented x3, not in any acute distress. Well developed, well nourished. HEENT: Pupils are round and equally reacting to light. EOMI. No scleral icterus. No conjunctival pallor. Normocephalic, atraumatic. No pharyngeal erythema. No thyromegaly. CARDIOVASCULAR: S1 and S2 present. No murmurs, rubs, or gallops. PULMONARY: Chest is clear to auscultation, no wheezing or crackles. ABDOMEN: Soft, nontender, nondistended, normoactive bowel sounds. No palpable organomegaly. MUSCULOSKELETAL: No joint swelling or deformity. EXTREMITIES: No cyanosis, clubbing, or pedal edema. NEUROLOGICAL: Gross neurological examination did not reveal any focal deficits. SKIN: No rashes. no petechiae. - Labs CBC & Chem 7: 05/31/22 05:30 05/31/22 05:30 Labs: Abnormal Lab Results - Last 24 Hours (Table) 05/31/22 05/31/22 05/31/22 Range/Units 05:30 05:30 05:30 RBC 3.68 L (3.80-5.40) m/uL APTT 79.1 H (22.0-30.0) sec Chloride 109 H (98-107) mmol/L BUN 30 H (7-17) mg/dL Creatinine 1.27 H (0.52-1.04) mg/dL Glucose 125 H (74-99) mg/dL Assessment and Plan Assessment: Breakthrough seizures versus pseudoseizures Chest pain, with negative stress test, cardiac causes were ruled out Acute kidney injury on CK D, improved History of multiple pulmonary embolism and antiphospholipid antibody syndrome on Eliquis at home History of lupus and pyoderma gangrenosum Chronic kidney disease stage III Hypertension History of decrease pituitary function History of migraine History of chronic cervical and back pain due to disc disease History of restless leg syndrome History of vertigo Plan: CT of the brain is negative, patient refused EEG, discussed with the neurologist, continue same antiseizure medication continue with Eliquis Continue with aspirin Cardiology consult Resume Bumex at a lower dose from 2 mg down to 1 mg twice a day (did not specifically dose in the hospital ) and monitor creatinine. Labs and medication were reviewed.. Continue same treatment. Continue with symptomatic treatment. Resume home medication. Monitor labs and vitals. DVT and GI prophylaxis. Further recommendations as per clinical course of the patie nt DVT prophylaxis: heparin GI Prophylaxis: Pepcid PT/OT: Pending Prognosis is guarded
[2022-05-31] MEDS: HYDROCORTISONE 20 MG TAB PO SCH ×2 (13:21→21:15)
[2022-05-31] MEDS ORDERED: LORazepam 2 MG/ML INJ IV PRN (13:25)
[2022-05-31] MEDS: TOPIRAMATE 100 MG TAB PO SCH ×2 (15:03→21:15)
[2022-05-31] MEDS: SERTRALINE 100 MG TAB PO SCH (15:04)
[2022-05-31] MEDS: BUMETANIDE 1 MG TAB PO SCH (17:01)
[2022-05-31 20:36] VITALS: RESP 18
[2022-05-31] MEDS: APIXABAN 5 MG TAB PO SCH (21:15)
[2022-05-31] MEDS: ATORVASTATIN 40 MG TAB PO SCH (21:15)
[2022-05-31] MEDS: busPIRone HCl 10 MG TAB PO SCH (23:48)
[2022-06-01] MEDS: HYDROmorphone 0.5 MG/0.5 ML SYRINGE IVP PRN ×2 (02:15→13:55)
[2022-06-01] MEDS: diphenhydrAMINE 50 MG/ML 1 ML VIAL IVP PRN ×3 (02:15→13:55)
[2022-06-01 06:37] LABS: Basophils % (A) 0 %; Eosinophils # (A) 0.1 k/uL (0-0.7); Eosinophils % (A) 2 %; HCT 35.7 % (34.0-46.0); HGB 11.9 gm/dL (11.4-16.0); Lymphocytes # (A) 0.9 k/uL (1.0-4.8); Lymphocytes % (A) 15 %; MCH 31.4 pg (25.0-35.0); MCHC 33.4 g/dL (31.0-37.0); MCV 93.9 fL (80.0-100.0); Mean Platelet Volume 7.7; Monocytes # (A) 0.3 k/uL (0-1.0); Monocytes % (A) 5 %; Neutrophils # (A) 4.8 k/uL (1.3-7.7); Neutrophils % (A) 76 %; Platelet Count 194 k/uL (150-450); RDW 12.8 % (11.5-15.5); WBC 6.3 k/uL (3.8-10.6)
[2022-06-01 06:48] LABS: Calcium 8.5 mg/dL (8.4-10.2); Potassium 4.9 mmol/L (3.5-5.1)
[2022-06-01] MEDS: SUCRALFATE 1 GM TAB PO SCH ×2 (06:57→11:56)
[2022-06-01] MEDS: APIXABAN 5 MG TAB PO SCH (08:42)
[2022-06-01] MEDS: MIDODRINE 5 MG TAB PO SCH (08:42)
[2022-06-01] MEDS: TOPIRAMATE 100 MG TAB PO SCH (08:42)
[2022-06-01] MEDS: BUMETANIDE 1 MG TAB PO SCH (08:42)
[2022-06-01] MEDS: POTASSIUM CHLORIDE ER 20 MEQ TAB.ER PO SCH (08:42)
[2022-06-01] MEDS: SERTRALINE 100 MG TAB PO SCH (08:42)
[2022-06-01] MEDS: SPIRONOLACTONE 25 MG TAB PO SCH (08:42)
[2022-06-01] MEDS: GABAPENTIN 300 MG CAP PO SCH (08:43)
[2022-06-01] MEDS: HYDROCORTISONE 20 MG TAB PO SCH (08:46)
[2022-06-01] MEDS ORDERED: FAMOTIDINE 20 MG TAB PO SCH (09:00)
[2022-06-01] MEDS ORDERED: BUMETANIDE 0.25 MG/ML 4 ML VIAL IVP STA (10:56)
[2022-06-01 11:19] VITALS: BP 130/80; PULSE 72; TEMP 98
--- NOTE | 2022-06-01 11:21 | P.PN ---
Subjective Progress Note Date: 06/01/22 HISTORY OF PRESENTING ILLNESS This is a 57-year-old female patient who follows in the office with Dr. Hanson. She has a history of tricuspid valve replacement 2, pyoderma gangrenosa, permanent pacemaker implantation, pulmonary embolism, antiphospholipid antibody syndrome, lupus and spinal stenosis status post surgeries in the past. Presented to the emergency department with complaints of intermittent sharp chest discomfort lasting about 10 seconds. Also having complaints of shortness of breath and cramping in her feet. She felt that maybe her potassium level was low as it's been in the past. She also feels she is retaining fluid in her abdomen. Was noted to have a potassium of 3.7, magnesium 2.5. Her BUN is 51 and creatinine 1.62 which is near her baseline. NT proBNP was normal at 231. Troponins were mildly abnormal at 0.045, 0.043 and less than 0.012. EKG on admission showed sinus mechanism with no evidence of ischemia. Chest x-ray showed stable cardiomegaly, no focal airspace consolidation. She underwent echocardiogram earlier this month which showed normal LV systolic function stable bioprosthetic tricuspid valve, mild MR and mild TR. The patient did, according to her, have cardiac catheterization done in 2019 that was normal. Upon examination she is resting comfortably in bed. Continues to have complaints of intermittent sharp chest discomfort lasting about 10 seconds. She feels that she had relief with Dilaudid and is requesting this to be ordered on an ongoing basis. She complains of shortness of breath, palpitations, dizziness, tinnitus, abdominal edema, orthopnea, nausea without vomiting. 05/31 patient seen and examined. Patient underwent dobutamine stress echo this morning and after the dobutamine infusion had been discontinued she had seizure- like activity, apparently for some twitching of the lips and then was unresponsive. Patient was given 4 of Versed with return to normal and currently not having any complaints other than headache. She states this feels similar to her prior seizures. She is not noted to be hypotensive and sugar level was normal. 06/01 Patient has had no further seizure activity. She has been seen by neurology for breakthrough seizure but to be related to increased boost bar usage which may lower the seizure threshold. Patient states that she has been taking BuSpar 10 mg 3 times daily versus her scheduled dosing of 5 mg twice daily. Patient gives history of having increased stress. Patient is denying any chest pain or shortness of breath. She denies any lightheadedness or dizziness. Patient does have edema to her hands and feet and states she normally takes a water pill and may need IV. She is currently on Bumex 1 mg oral twice daily. Patient is complaining of a bad headache this morning. I'll stress test did not show any ischemia. PHYSICAL EXAMINATION Vital signs reviewed. CONSTITUTIONAL: No apparent distress. HEENT: Head is normocephalic. Pupils are equal, round. Sclerae anicteric. Mucous membranes of the mouth are moist. No JVD. No carotid bruit. CHEST EXAMINATION: Lungs are clear to auscultation. No chest wall tenderness is noted on palpation or with deep breathing. HEART EXAMINATION: Regular rate and rhythm. S1, S2 heard. No murmurs, gallops or rub. ABDOMEN: Soft, nontender. Positive bowel sounds. EXTREMITIES: 2+ peripheral pulses, bilateral hand and lower extremity edema and no calf tenderness. NEUROLOGIC EXAMINATION: Patient is awake, alert and oriented x3. 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 Hanson in 1 week. Patient is cleared from cardiology for discharge home. Nurse practitioner note has been reviewed, I agree with the documented findings and plan of care. Patient was seen and examined. Objective - Vital Signs Vital signs: Vital Signs Temp 98.5 F 06/01/22 07:58 Pulse 77 06/01/22 08:00 Resp 18 06/01/22 08:00 BP 116/68 06/01/22 07:58 Pulse Ox 100 06/01/22 07:58 FiO2 Intake & Output 05/31/22 06/01/22 06/01/22 18:59 06:59 18:59 Intake Total 256.031 240 Output Total 400 400 Balance -143.969 -400 240 Intake: IV 240 .9 kvo 240 Intake, IV Titration 16.031 Amount Heparin Sod,Pork in 0.45% 16.031 NaCl 25,000 unit In 0.45 % NaCl 1 250ml.bag @ 12 UNITS/KG/HR 8.437 mls/hr IV .Q24H [facility] Rx#: [id number] Oral 240 Output: Urine 400 400 Other: Voiding Method Toilet Toilet Bedside Commode # Voids 1 # Bowel Movements 1 - Labs CBC & Chem 7: 06/01/22 06:32 06/01/22 06:32 Labs: Abnormal Lab Results - Last 24 Hours (Table) 06/01/22 06/01/22 Range/Units 06:32 06:32 Lymphocytes # 0.9 L (1.0-4.8) k/uL Chloride 112 H (98-107) mmol/L BUN 21 H (7-17) mg/dL Creatinine 1.22 H (0.52-1.04) mg/dL Glucose 108 H (74-99) mg/dL
--- NOTE | 2022-06-01 12:05 | P.PN ---
Subjective Progress Note Date: 06/01/22 Patient seen at bedside and she states that she's drastically better today compared to yesterday. No further seizures. She states states that the BuSpar was helping her but the in the past couple weeks she was double dosing and taken extra doses of BuSpar because of her anxiety. Objective - Vital Signs Vital signs: Vital Signs Temp 98.0 F 06/01/22 11:17 Pulse 72 06/01/22 11:17 Resp 18 06/01/22 11:17 BP 130/80 06/01/22 11:17 Pulse Ox 98 06/01/22 11:17 FiO2 Intake & Output 05/31/22 06/01/22 06/01/22 18:59 06:59 18:59 Intake Total 256.031 240 Output Total 400 400 Balance -143.969 -400 240 Intake: IV 240 .9 kvo 240 Intake, IV Titration 16.031 Amount Heparin Sod,Pork in 0.45% 16.031 NaCl 25,000 unit In 0.45 % NaCl 1 250ml.bag @ 12 UNITS/KG/HR 8.437 mls/hr IV .Q24H [facility] Rx#: [id number] Oral 240 Output: Urine 400 400 Other: Voiding Method Toilet Toilet Bedside Commode # Voids 1 # Bowel Movements 1 - Exam GENERAL: The patient is lying in bed and is not in acute distress. NEUROLOGICAL: Higher mental function: The patient is awake, alert, oriented to self, place and time. Patient is following commands. No aphasia and no neglect. Cranial nerves: The pupils are round, equal and reactive to light and accommodation. Visual pierce are full to confrontation throughout. Extraocular movement is intact no nystagmus is noted. Facial sensation is normal to touch throughout. The facial strength is normal throughout. Tongue is midline and moved [id number] without any difficulty. No dysarthria is noted. Shoulder shrug is normal bilaterally. Motor: The strength is 5 over 5 throughout. Normal tone and bulk. Cerebellum: Normal finger to nose bilaterally. Sensation: Sensation is normal to touch throughout. Reflexes (right/left): 2+ throughout.. Plantars are downgoing bilaterally. Some other workup during this hospital visit consisted of: Her initial loss serum glucose is 101 and today it saw 125. Calcium is 8.7. Initially the patient had minimal elevated troponin that normalized. CT of the head is reported as no acute intracranial process. - Labs CBC & Chem 7: 06/01/22 06:32 06/01/22 06:32 Labs: Abnormal Lab Results - Last 24 Hours (Table) 06/01/22 06/01/22 Range/Units 06:32 06:32 Lymphocytes # 0.9 L (1.0-4.8) k/uL Chloride 112 H (98-107) mmol/L BUN 21 H (7-17) mg/dL Creatinine 1.22 H (0.52-1.04) mg/dL Glucose 108 H (74-99) mg/dL Assessment and Plan Assessment: * Break-through seizure (seizure-like activity reported by nurse with arm extension and one of the nurse felt jaw clenched but no foaming around the mouth and no post-ictal confusion while other nurse felt possible foaming and some post-ictal confusion) Unsure if it was truly epilepitic in nature vs her usual non-epileptic. * History of nonepileptic seizures (patient had extensive workup and [facility] and had imaging and multiple EEGs and was told she had pseudoseizures) as well as had the multiple visits in our facility * Acute chest pain with mild elevated troponin * History of traumatic brain injury in 2007 * Post traumatic migraines * Chronic back pain * History of multiple pulmonary embolism due to antiphospholipid antibody on eliquis * Lupus * History of pyoderma gangrenosum * Neuropathy * Anxiety * Polypharmacy Plan: Continue Topamax 200 mg 1 tablet twice a day which helps with migraines as well as seizures. Also patient is on gabapentin for neuropathy 300 mg 1 tablet 3 times a day which also was considered antiepileptic Patient refused EEG during this hospital visit. Buspar lowers the seizure threshold and recommend the discontinue it was something else. She wants to continue it. Primary consulted psychiatry team. Recommend patient to follow-up with a neurologist as outpatient for recommendation of prolonged EEG/epilepsy monitoring unit to capture events and rule out any epileptic episodes. Patient stated she had extensive workup at [facility] and was told not epileptic that was diagnosed. I feel the patient is on polypharmacy and recommended modification or for her medications by her PCP. Cardiology is on board Recommend the patient follow up with a psychiatrist or psychologist s outpatient. We'll defer the rest of the medical management to primary team Per the [place] DMV, he still avoid driving for 6 month until seizure-free. Avoid heights, using heavy machinery or swimming unassisted and this was notified to patient. Upon discharge recommend the patient follow up with a neurologist in outpatient within 1-2 weeks. Plan discussed with the patient, her primary team and her nurse. Patient is clear for discharge from neurological perspective. Please reconsult if needed. Time with Patient: Less than 30
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
--- NOTE | 2022-06-02 06:09 | P.DS ---
Providers Date of admission: 05/29/22 20:30 Attending physician: London Horton MD Consults: 05/29/22 20:30 Consult Physician Urgent Consulting Provider: Reed Deleon Consult Reason/Comments: cardiology Do you want consulting provider notified?: Yes 05/31/22 10:13 Consult Physician Urgent Consulting Provider: Lefty Zhu Consult Reason/Comments: seizure Do you want consulting provider notified?: Yes 05/31/22 11:18 Consult Physician Routine Consulting Provider: Dougie Guaman Consult Reason/Comments: possible pseudoseizure, assess psych meds Do you want consulting provider notified?: Yes Primary care physician: [facility] Hospital Course: Diagnoses: pseudoseizures Chest pain, with negative stress test, cardiac causes were ruled out. She has been resolved upon discharge Acute kidney injury on CKD, improved, secondary to overdiuresis, Ethan lowered from 2 mg and 1 mg twice a day upon discharge History of multiple pulmonary embolism and antiphospholipid antibody syndrome on Eliquis at home History of lupus and pyoderma gangrenosum Chronic kidney disease stage III Hypertension History of decrease pituitary function History of migraine History of chronic cervical and back pain due to disc disease History of restless leg syndrome History of vertigo Hospital course: This is a pleasant 57 results female with past medical history of multiple pulmonary embolism, antiphospholipid antibody syndrome causing clot some bleeding, currently on Eliquis at home, chronic kidney disease, hypertension, lupus, pyoderma gangrenosum and decrease pituitary function, migraine, chronic neck and back pain due to herniated disc, RLS and vertigo. Her PCP is Dr. Patel Patient presents because of central chest Pain, Her chest pain , patient evaluated by gas specialist and underwent nuclear stress test which came back negative for acute ischemia and patient was cleared for discharge by gas specialist however during the nuclear test she developed seizure on the table and she is been evaluated further, CT of the brain was negative, EEG ordered by neurologist but patient declined, no more seizure. Neurologist diagnosed pseudoseizure and cleared her for discharge to continue on the same medication, she is already on gabapentin and topiramate which also help her with her seizure. BuSpar is recommended to be stopped after the patient because it causes seizure and she's been evaluated by psychiatrist. On the day of discharge patient back to baseline and she denies any more chest pain, no dyspnea or coughing, no headache his anus weakness or numbness, no vomiting diarrhea, no chest pain or abdominal pain, no urinary symptoms. No fever. Patient was cleared for discharge by all consultants including neurologist and gas specialist and psychiatrist Problems and management plan were discussed with the patient and he verbalized understanding and acceptance Patient was found stable and can be discharged home in guarded prognosis however he needs follow-up as an outpatient. Patient was instructed to follow up with PCP Dr. Patel within one week and patient agrees Patient was instructed to follow up with gas specialist Dr. Hanson in 1-2 weeks and the neurologist Dr. Vick in one week and she agrees to call and make appointment Physical exam Gen: patient is a AAOx3, no distress CVS: S1-S2, RRR, no murmur Lungs: B/L CTA, no wheezing Abdomen: soft, no distention, no tenderness, positive bowel sounds Extremity: no leg edema or induration Time spent more than 35 minutes Patient Condition at Discharge: Stable Plan - Discharge Summary Discharge Rx Participant: No New Discharge Prescriptions: New Bumetanide [BUMEX] 1 mg PO BID@0900,1600 #60 tab Continue Sucralfate 1 gm PO AC-TID Topiramate [Topamax] 200 mg PO BID Orphenadrine Citrate [Orphenadrine Citrate ER] 100 mg PO HS Midodrine [ProAmatine] 5 mg PO TID Esomeprazole Magnesium [NexIUM] 40 mg PO DAILY Meclizine [Antivert] 12.5 mg PO Q8H PRN PRN Reason: Vertigo Hydrocortisone [Cortef] 20 mg PO BID 90 Days #180 tab Diphenhydramine 50mg/Ml Vial 50 mg IV Q6H PRN PRN Reason: Allergy Symptoms Ipratropium Nebulized [Atrovent Nebulized 0.2 MG/ML] 0.5 mg INHALATION RT-QID PRN PRN Reason: Shortness Of Breath Galcanezumab-Gnlm [Emgality Pen] 120 mg SQ Q30D rOPINIRole HCL [Requip] 2 mg PO HS Sertraline [Zoloft] 200 mg PO DAILY Gabapentin 300 mg PO TID Cholestyramine (with Sugar) [Cholestyramine Packet] 4 gm PO DAILY PRN PRN Reason: Diarrhea Atorvastatin [Lipitor] 40 mg PO HS Ubrogepant [Ubrelvy] 100 mg PO BID PRN PRN Reason: Migraine Headache HYDROcodone/APAP 7.5-325MG [Winslow 7.5-325] 1 tab PO BID PRN PRN Reason: Pain Budesonide/Glycopyr/Formoterol [Breztri Aerosphere Inhaler] 1 puff INHALATION RT-BID Botox 200unit Injection 1 dose INJ Q84D Spironolactone [Aldactone] 50 mg PO DAILY 90 Days #90 tab Potassium Chloride ER [K-Dur 20] 40 meq PO TID 30 Days #90 tab Dicyclomine [Bentyl] 20 mg PO TID PRN #30 tablet PRN Reason: Pain Ondansetron Odt [Zofran ODT] 4 mg PO Q8HR PRN #12 tab PRN Reason: Nausea Acetaminophen Tab [Tylenol] 650 mg PO Q6HR PRN tab PRN Reason: Mild Pain Or Fever > 100.5 Apixaban [Eliquis] 5 mg PO BID Discontinued Cetirizine HCl 10 mg PO DAILY busPIRone HCl [Buspar] 10 mg PO BID Bumetanide [BUMEX] 2 mg PO BID Discharge Medication List Atorvastatin [Lipitor] 40 mg PO HS 09/24/21 [History] Cholestyramine (with Sugar) [Cholestyramine Packet] 4 gm PO DAILY PRN 09/24/21 [History] Gabapentin 300 mg PO TID 09/24/21 [History] Sertraline [Zoloft] 200 mg PO DAILY 09/24/21 [History] Sucralfate 1 gm PO AC-TID 09/24/21 [History] Ubrogepant [Ubrelvy] 100 mg PO BID PRN 09/24/21 [History] rOPINIRole HCL [Requip] 2 mg PO HS 09/24/21 [History] Budesonide/Glycopyr/Formoterol [Breztri Aerosphere Inhaler] 1 puff INHALATION RT-BID 03/16/22 [History] Esomeprazole Magnesium [NexIUM] 40 mg PO DAILY 03/16/22 [History] HYDROcodone/APAP 7.5-325MG [Winslow 7.5-325] 1 tab PO BID PRN 03/16/22 [History] Midodrine [ProAmatine] 5 mg PO TID 03/16/22 [History] Orphenadrine Citrate [Orphenadrine Citrate ER] 100 mg PO HS 03/16/22 [History] Topiramate [Topamax] 200 mg PO BID 03/16/22 [History] Botox 200unit Injection 1 dose INJ Q84D 04/02/22 [History] Meclizine [Antivert] 12.5 mg PO Q8H PRN 04/02/22 [History] Hydrocortisone [Cortef] 20 mg PO BID 90 Days #180 tab 04/06/22 [Rx] Potassium Chloride ER [K-Dur 20] 40 meq PO TID 30 Days #90 tab 04/16/22 [Rx] Spironolactone [Aldactone] 50 mg PO DAILY 90 Days #90 tab 04/16/22 [Rx] Diphenhydramine 50mg/Ml Vial 50 mg IV Q6H PRN 04/18/22 [History] Dicyclomine [Bentyl] 20 mg PO TID PRN #30 tablet 04/30/22 [Rx] Ondansetron Odt [Zofran ODT] 4 mg PO Q8HR PRN #12 tab 04/30/22 [Rx] Ipratropium Nebulized [Atrovent Nebulized 0.2 MG/ML] 0.5 mg INHALATION RT-QID PRN 05/13/22 [History] Acetaminophen Tab [Tylenol] 650 mg PO Q6HR PRN tab 05/17/22 [Rx] Apixaban [Eliquis] 5 mg PO BID 05/29/22 [History] Galcanezumab-Gnlm [Emgality Pen] 120 mg SQ Q30D 05/31/22 [History] Bumetanide [BUMEX] 1 mg PO BID@0900,1600 #60 tab 06/01/22 [Rx] Follow up Appointment(s)/Referral(s): Mahesh Hanson MD [STAFF PHYSICIAN] - 06/10/22 11:15 am Franklin Hassan MD [Primary Care Provider] - 06/10/22 2:00 pm Lefty Vick MD [STAFF PHYSICIAN] - 1 Week (Pt to schedule appointment.) Patient Instructions/Handouts: Chest Pain (DC), Nonepileptic Seizures (DC) Activity/Diet/Wound Care/Special Instructions: heart healthy diet activity is restricted till you see your doctor Discharge Disposition: HOME SELF-CARE
== END 2022-06-01 15:22 | disposition home or self-care (01) | DRG 313 ==
LOC: EC 17:07 → 3SCARD 20:30 → 2SICU 05-31 11:06 → 3SCARD 06-01 00:17
PROVIDERS: ADMIT Internal Medicine; ATTEND Internal Medicine
DX: R07.89 Other chest pain (principal); D68.61 Antiphospholipid syndrome; N17.9 Acute kidney failure, unspecified; L88 Pyoderma gangrenosum; G40.909 Epilepsy, unspecified, not intractable, without status epilepticus; I08.1 Rheumatic disorders of both mitral and tricuspid valves; E11.22 Type 2 diabetes mellitus with diabetic chronic kidney disease; R79.89 Other specified abnormal findings of blood chemistry; I12.9 Hypertensive chronic kidney disease with stage 1 through stage 4 chronic kidney disease, or unspecified chronic kidney disease; N18.30 Chronic kidney disease, stage 3 unspecified; G43.909 Migraine, unspecified, not intractable, without status migrainosus; G62.9 Polyneuropathy, unspecified; M54.9 Dorsalgia, unspecified; M54.2 Cervicalgia; G89.29 Other chronic pain; M62.838 Other muscle spasm; F41.9 Anxiety disorder, unspecified; G25.81 Restless legs syndrome; Z86.711 Personal history of pulmonary embolism; Z88.0 Allergy status to penicillin; Z88.1 Allergy status to other antibiotic agents; Z88.7 Allergy status to serum and vaccine; Z90.49 Acquired absence of other specified parts of digestive tract; Z88.5 Allergy status to narcotic agent; Z79.01 Long term (current) use of anticoagulants; Z87.820 Personal history of traumatic brain injury; Z90.710 Acquired absence of both cervix and uterus; Z95.2 Presence of prosthetic heart valve; Z79.899 Other long term (current) drug therapy; Z95.0 Presence of cardiac pacemaker
CPT/HCPCS: 36415; 70450; 71045; 80048; 80053; 81003; 83735; 83880; 84132; 84484; 85025; 85027; 85379; 85610; 85730; 87635; 87636; 93005; 93351; 94760; 96361; 96374; 96375; 99285

== ENCOUNTER 2022-07-15 17:03 | Emergency (ER) | payer BC, MEDICARE ==
[2022-07-15 17:21] VITALS: BP 131/85; PULSE 78; RESP 18; TEMP 98.5
[2022-07-15] MEDS ORDERED: SODIUM CHLORIDE 0.9% 1,000 ML IV STA (17:37)
[2022-07-15] MEDS ORDERED: MECLIZINE 12.5 MG TAB PO STA (17:37)
--- NOTE | 2022-07-15 18:30 | XR ---
EXAMINATION TYPE: XR chest 2V DATE OF EXAM: 07/15/2022 6:00 PM COMPARISON: Chest radiographs from 06/21/2022 TECHNIQUE: XR chest 2V Frontal and lateral views of the chest. CLINICAL INDICATION:Female, 57 years old with history of dizziness; FINDINGS: Lungs/Pleura: There is no evidence of pleural effusion, focal consolidation, or pneumothorax. Pulmonary vascularity: Unremarkable. Heart/mediastinum: Cardiomediastinal silhouette is prominent in size. Loop recorder is present. Post mitral valve repair changes. Single-lead cardiac conduction device overlying the right hemithorax wi th lead projecting over the right ventricle. Musculoskeletal: No acute osseous pathology. Other findings: None Lines/Tubes: Zophes-p-Wmem projecting over the left hemithorax with distal tip at the cavoatrial junction. IMPRESSION: No acute cardiopulmonary disease/process.
[2022-07-15 19:29] LABS: Basophils % (A) 0 %; Eosinophils # (A) 0.1 k/uL (0-0.7); Eosinophils % (A) 1 %; HCT 40.5 % (34.0-46.0); Lymphocytes # (A) 1.7 k/uL (1.0-4.8); Lymphocytes % (A) 17 %; MCH 30.9 pg (25.0-35.0); MCHC 34.6 g/dL (31.0-37.0); MCV 89.4 fL (80.0-100.0); Mean Platelet Volume 7.9; Monocytes # (A) 0.5 k/uL (0-1.0); Monocytes % (A) 5 %; Neutrophils # (A) 7.3 k/uL (1.3-7.7); Neutrophils % (A) 74 %; Platelet Count 284 k/uL (150-450); RBC 4.54 m/uL (3.80-5.40); WBC 9.9 k/uL (3.8-10.6)
[2022-07-15 19:43] LABS: Albumin 4.8 g/dL (3.5-5.0); Calcium 9.9 mg/dL (8.4-10.2); Magnesium 2.6 mg/dL (1.6-2.3); Potassium 3.1 mmol/L (3.5-5.1); Total Bilirubin 0.5 mg/dL (0.2-1.3)
[2022-07-15] MEDS ORDERED: HYDROmorphone 0.5 MG/0.5 ML SYRINGE IVP STA (19:48)
[2022-07-15] MEDS ORDERED: POTASSIUM CHLORIDE ER 20 MEQ TAB.ER PO STA (19:50)
--- NOTE | 2022-07-15 20:21 | ED ---
General Adult HPI - General Chief complaint: Dizziness Stated complaint: LOW POTASSIUM Time Seen by Provider: 07/15/22 17:26 Source: patient Mode of arrival: wheelchair Limitations: no limitations - History of Present Illness Initial comments: Patient is a 57-year-old female presenting with concerns of "low potassium". Patient states she was sent in by Dr. Hassan for evaluation of elevated blood pressure. States that in the office it was in the 190s systolic. Patient is complaining of generalized weakness, headache, and dizziness. Patient has history of hypokalemia. She is complaining of generalized aches and pains. No chest pain. No palpitations. No abdominal pain, nausea, vomiting, diarrhea, hematochezia, melena. No fever or chills. No URI like symptoms. - Related Data Home Medications Medication Instructions Recorded Confirmed Atorvastatin [Lipitor] 40 mg PO HS 09/24/21 07/09/22 Cholestyramine (with Sugar) 4 gm PO DAILY PRN 09/24/21 07/09/22 [Cholestyramine Packet] Gabapentin 300 mg PO TID 09/24/21 07/09/22 Sertraline [Zoloft] 200 mg PO DAILY 09/24/21 07/09/22 Ubrogepant [Ubrelvy] 100 mg PO BID PRN 09/24/21 07/09/22 rOPINIRole HCL [Requip] 2 mg PO HS 09/24/21 07/09/22 Budesonide/Glycopyr/Formoterol 1 puff INHALATION RT-BID 03/16/22 07/09/22 [Breztri Aerosphere Inhaler] Esomeprazole Magnesium [NexIUM] 40 mg PO DAILY 03/16/22 07/09/22 HYDROcodone/APAP 7.5-325MG [[place] 1 tab PO BID PRN 03/16/22 07/09/22 7.5-325] Midodrine [ProAmatine] 5 mg PO PC-TID PRN 03/16/22 07/09/22 Orphenadrine Citrate [Orphenadrine 100 mg PO HS PRN 03/16/22 07/09/22 Citrate ER] Botox 200unit Injection 1 dose INJ Q84D 04/02/22 07/09/22 Meclizine [Antivert] 12.5 mg PO Q8H PRN 04/02/22 07/09/22 Diphenhydramine 50mg/Ml Vial 50 mg IM Q6H PRN 04/18/22 07/09/22 Apixaban [Eliquis] 5 mg PO BID 05/29/22 07/09/22 Galcanezumab-Gnlm [Emgality Pen] 120 mg SQ Q30D 05/31/22 07/09/22 Spironolactone [Aldactone] 50 mg PO DAILY 06/11/22 07/09/22 busPIRone HCl [Buspar] 5 mg PO BID 06/11/22 07/09/22 Bumetanide [BUMEX] 1 mg PO HS 06/21/22 07/09/22 Diclofenac Sodium Gel [Voltaren 4 gm TOPICAL QID PRN 06/21/22 07/09/22 Gel] Bumetanide [BUMEX] 2 mg PO DAILY 06/24/22 07/09/22 Previous Rx's Medication Instructions Recorded Hydrocortisone [Cortef] 20 mg PO BID 90 Days #180 tab 04/06/22 Potassium Chloride ER [K-Dur 20] 40 meq PO TID 30 Days #90 tab 04/16/22 Dicyclomine [Bentyl] 20 mg PO TID PRN #30 tablet 04/30/22 Ondansetron Odt [Zofran ODT] 4 mg PO Q8HR PRN #12 tab 04/30/22 Acetaminophen Tab [Tylenol] 650 mg PO Q6HR PRN tab 05/17/22 Topiramate [Topamax] 150 mg PO BID 90 Days #180 tab 06/12/22 Allergies Allergy/AdvReac Type Severity Reaction Status Date / Time Penicillins Allergy Severe Anaphylaxis Verified 07/15/22 17:21 vancomycin Allergy Severe Swelling Verified 07/15/22 17:21 in lips clindamycin Allergy Anaphylaxis Verified 07/15/22 17:21 Influenza Virus Vaccines Allergy Unknown Verified 07/15/22 17:21 latex Allergy Unknown Verified 07/15/22 17:21 morphine Allergy Unknown Verified 07/15/22 17:21 prochlorperazine Allergy Unknown Verified 07/15/22 17:21 [From Compazine] metoclopramide [From Reglan] AdvReac Unknown Verified 07/15/22 17:21 Review of Systems ROS Statement: Those systems with pertinent positive or pertinent negative responses have been documented in the HPI. ROS Other: All systems not noted in ROS Statement are negative. 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 for low K+ History of Any Multi-Drug Resistant Organisms: C-DIFF Date of last positivie culture/infection: 2021 MDRO Source:: Stool Past Surgical History: Back Surgery, Breast Surgery, Cardiac Valve Replacement, Section, Cholecystectomy, Hysterectomy, Pacemaker Additional Past Surgical History / Comment(s): pacemaker d/t bradycardia/hypotension with last one place in 2013 in [place], [place], 3 lower back surgeries, bilateral breast reduction. 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 Past Anesthesia/Blood Transfusion Reactions: No Reported Reaction Type of Cardiac Device: Permanent Pacemaker, Unknown Device Placement Date:: 2012 Past Psychological History: Anxiety Smoking Status: Never smoker Past Alcohol Use History: None Reported Past Drug Use History: None Reported - Past Family History Mother Additional Family Medical History / Comment(s): Mother at the age of 49 yrs after surgery for silicon breast implants with a leak that caused ARDS and DIC per pt Father Family Medical History: Cancer, Hyperlipidemia, Hypertension Additional Family Medical History / Comment(s): Father is a colon cancer survivor. General Exam Limitations: no limitations General appearance: alert, in no apparent distress Head exam: Present: atraumatic, normocephalic, normal inspection Eye exam: Present: normal appearance, EOMI. Absent: periorbital swelling, periorbital tenderness Neck exam: Present: normal inspection, full ROM Respiratory exam: Present: normal lung sounds bilaterally. Absent: respiratory distress, wheezes, rales, rhonchi, stridor Cardiovascular Exam: Present: regular rate, normal rhythm, normal heart sounds. Absent: systolic murmur, diastolic murmur, rubs, gallop, clicks GI/Abdominal exam: Present: soft. Absent: distended, tenderness, guarding, rebound, rigid Extremities exam: Absent: pedal edema Neurological exam: Present: alert, oriented X3, CN II-XII intact Psychiatric exam: Present: normal affect, normal mood Skin exam: Present: warm, dry, intact, normal color. Absent: rash Course Vital Signs 07/15/22 17:19 Temperature 98.5 F Pulse Rate 78 Respiratory 18 Rate Blood Pressure 131/85 O2 Sat by Pulse 99 Oximetry EKG Findings - EKG Comments: EKG Findings:: Electronic atrial pacemaker. Ventricular rate 70. ID interval 167. QRS 94. QT 330. QTC 350. No ischemic changes. Medical Decision Making - Medical Decision Making Was pt. sent in by a medical professional or institution (, PA, COMBINATION OPERATOR, urgent care, hospital, or retirement...) When possible be specific @ -Patient states she was sent in by Dr. Hassan Did you speak to anyone other than the patient for history (EMS, parent, family, police, friend...)? What history was obtained from this source @ - Did you review nursing and triage notes (agree or disagree)? Why? @ -I reviewed and agree with nursing and triage notes Were old charts reviewed (outside hosp., previous admission, EMS record, old EKG, old radiological studies, urgent care reports/EKG's, retirement records)? Report findings @ -Previous visits and admissions were reviewed Differential Diagnosis (chest pain, altered mental status, abdominal pain women, abdominal pain men, vaginal bleeding, weakness, fever, dyspnea, syncope, h eadache, dizziness, GI bleed, back pain, seizure, CVA, palpatations, mental health, musculoskeletal)? MDM Differential Weakness: Hypoglycemia, shock, sepsis, hyponatremia, anemia, infection, [place], ETOH, adverse medicine reaction, overdose, stroke. ... This is not meant to be an all- inclusive list EKG interpreted by me (3pts min.). As above X-rays interpreted by me (1pt min.). @ -Chest x-ray shows no acute process CT interpreted by me (1pt min.). @ -None done U/S interpreted by me (1pt. min.). @ -None done What testing was considered but not performed or refused? (CT, X-rays, U/S, labs)? Why? @ -None What meds were considered but not given or refused? Why? @ -None Did you discuss the management of the patient with other professionals (professionals i.e. , PA, COMBINATION OPERATOR, lab, RT, psych nurse, social security assessor, retail sales representative, teacher, fire control officer, manager of case management)? Give summary @ -No Was smoking cessation discussed for >3mins.? @ -No Was critical care preformed (if so, how long)? @ -No Were there social determinants of health that impacted care today? How? (Donny elessness, low income, unemployed, alcoholism, drug addiction, transportation, low edu. Level, literacy, decrease access to med. care, correction, rehab)? @ -No Was there de-escalation of care discussed even if they declined (Discuss DNR or withdrawal of care, Hospice)? DNR status @ -No What co-morbidities impacted this encounter? (DM, HTN, Smoking, COPD, CAD, Cancer, CVA, ARF, Chemo, Hep., AIDS, mental health diagnosis, sleep apnea, morbid obesity)? @ -None Was patient admitted / discharged? Hospital course, mention meds given and route, prescriptions, significant lab abnormalities, going to OR and other pertinent info. @ -Patient is a 57-year-old female with history of hypokalemia presenting with chief complaint of generalized weakness, generalized pains, and headache. She is concerned her potassium is low. Physical examination is unremarkable. Lab work shows no leukocytosis or anemia. Sodium 135 potassium 3.1. Patient is receiving IV fluids and oral potassium replacement. BUN of 65 and creatinine of 1.91 appear consistent with previous values, patient has large range of previous values and this does not appear consistent with an AK eye. Magnesium is 2.6. Chest x-ray shows no acute process. Patient's was becoming aggressive and acting threatening towards staff, security was called and he was removed from the room and placed in the waiting room. Patient was given IV Dilaudid and oral potassium replacement. She is educated on today's findings and instructed to follow-up tomorrow with Dr. Hassan. Follow-up with PCP. Report back to ER with any new or worsening symptoms. Discussed return parameters and answered all questions. Patient conveyed verbal understanding and agreed to the plan. I discussed this case in detail with my attending Dr. Krishnan Undiagnosed new problem with uncertain prognosis? @ -No Drug Therapy requiring intensive monitoring for toxicity (Heparin, Nitro, Insulin, Cardizem)? @ -No Were any procedures done? @ -No Diagnosis/symptom? @ -Hypokalemia Acute, or Chronic, or Acute on Chronic? @ -Acute Uncomplicated (without systemic symptoms) or Complicated (systemic symptoms)? @ -Uncomplicated Side effects of treatment? @ -No Exacerbation, Progression, or Severe Exacerbation? @ -No - Lab Data Result diagrams: 07/15/22 19:09 07/15/22 19:09 Lab Results 07/15/22 07/15/22 07/15/22 Range/Units 19: 19: 19:09 WBC 9.9 (3.8-10.6) k/uL RBC 4.54 (3.80-5.40) m/uL Hgb 14.0 (11.4-16.0) gm/dL Hct 40.5 (34.0-46.0) % MCV 89.4 (80.0-100.0) fL MCH 30.9 (25.0-35.0) pg MCHC 34.6 (31.0-37.0) g/dL RDW 13.0 (11.5-15.5) % Plt Count 284 (150-450) k/uL MPV 7.9 Neutrophils % 74 % Lymphocytes % 17 % Monocytes % 5 % Eosinophils % 1 % Basophils % 0 % Neutrophils # 7.3 (1.3-7.7) k/uL Lymphocytes # 1.7 (1.0-4.8) k/uL Monocytes # 0.5 (0-1.0) k/uL Eosinophils # 0.1 (0-0.7) k/uL Basophils # 0.0 (0-0.2) k/uL Sodium 135 L (137-145) mmol/L Potassium 3.1 L (3.5-5.1) mmol/L Chloride 90 L (98-107) mmol/L Carbon Dioxide 36 H (22-30) mmol/L Anion Gap 9 mmol/L BUN 65 H (7-17) mg/dL Creatinine 1.91 H (0.52-1.04) mg/dL Est GFR (CKD-EPI)AfAm 33 (>60 ml/min/1.73 sqM) Est GFR (CKD-EPI)NonAf 29 (>60 ml/min/1.73 sqM) Glucose 90 (74-99) mg/dL Plasma Lactic Acid Raffi 1.1 (0.7-2.0) mmol/L Calcium 9.9 (8.4-10.2) mg/dL Magnesium 2.6 H (1.6-2.3) mg/dL Total Bilirubin 0.5 (0.2-1.3) mg/dL AST 32 (14-36) U/L ALT 29 (4-34) U/L Alkaline Phosphatase 85 (38-126) U/L Total Protein 8.0 (6.3-8.2) g/dL Albumin 4.8 (3.5-5.0) g/dL Disposition Clinical Impression: Hypokalemia Disposition: HOME SELF-CARE Condition: Good Instructions (If sedation given, give patient instructions): Hypokalemia (ED), Pain Management (ED), Chronic Pain (ED), Dizziness (ED) Additional Instructions: Follow-up with PCP. Report back to ER with any new or worsening symptoms. Is patient prescribed a controlled substance at d/c from ED?: No Referrals: Franklin Hassan MD [Primary Care Provider] - 1-2 days Time of Disposition: 20:21
== END 2022-07-15 21:07 | disposition home or self-care (01) ==
LOC: EC 17:03
DX: E87.6 Hypokalemia (principal); N18.30 Chronic kidney disease, stage 3 unspecified; F41.9 Anxiety disorder, unspecified; Z88.0 Allergy status to penicillin; Z88.7 Allergy status to serum and vaccine; Z91.040 Latex allergy status; Z88.8 Allergy status to other drugs, medicaments and biological substances; Z79.899 Other long term (current) drug therapy; Z79.01 Long term (current) use of anticoagulants; Z95.0 Presence of cardiac pacemaker; Z90.49 Acquired absence of other specified parts of digestive tract; Z95.2 Presence of prosthetic heart valve
CPT/HCPCS: 36415; 93005; 80053; 83605; 83735; 85025; 71046; 99284; 96374; 96361; J1170

== ENCOUNTER 2022-07-16 15:33 | Inpatient (IN) | payer BC, MEDICARE ==
[2022-07-16] MEDS ORDERED: HYDROmorphone 1 MG/ML 1 ML SYRINGE IVP STA ×2 (17:15→20:10)
[2022-07-16] MEDS ORDERED: Potassium Replacement Protocol 1 EACH MISC MISCELLANE PRN (17:16)
[2022-07-16 18:06] LABS: Basophils % (A) 0 %; Eosinophils # (A) 0.1 k/uL (0-0.7); Eosinophils % (A) 1 %; HCT 41.1 % (34.0-46.0); HGB 13.9 gm/dL (11.4-16.0); Lymphocytes # (A) 1.2 k/uL (1.0-4.8); Lymphocytes % (A) 12 %; MCH 30.5 pg (25.0-35.0); MCHC 33.8 g/dL (31.0-37.0); MCV 90.2 fL (80.0-100.0); Mean Platelet Volume 8.2; Monocytes # (A) 0.5 k/uL (0-1.0); Monocytes % (A) 5 %; Neutrophils # (A) 7.9 k/uL (1.3-7.7); Neutrophils % (A) 80 %; Platelet Count 282 k/uL (150-450); RBC 4.56 m/uL (3.80-5.40); WBC 9.9 k/uL (3.8-10.6)
[2022-07-16] MEDS ORDERED: diphenhydrAMINE 50 MG/ML 1 ML VIAL IVP STA (18:07)
[2022-07-16] MEDS: POTASSIUM CHLORIDE 20 MEQ in WATER FOR INJECTION 1 100ML.BAG IVPB SCH ×3 (18:14→23:52)
--- NOTE | 2022-07-16 18:33 | ED ---
General Adult HPI - General Chief complaint: Recheck/Abnormal Lab/Rx Stated complaint: abd labs/potassium Time Seen by Provider: 07/16/22 16:48 Source: patient, RN notes reviewed, old records reviewed Mode of arrival: ambulatory Limitations: no limitations - History of Present Illness Initial comments: 57-year-old female presenting with weakness, muscle cramping. Patient has history of chronic hypokalemia. She had outpatient testing performed which revealed potassium of 2.5 was sent to the emergency department. She states this is a recurrent issue. Denies fever, denies chest pain, denies dyspnea. - Related Data Home Medications Medication Instructions Recorded Confirmed Atorvastatin [Lipitor] 40 mg PO HS 09/24/21 07/16/22 Cholestyramine (with Sugar) 4 gm PO DAILY PRN 09/24/21 07/16/22 [Cholestyramine Packet] Gabapentin 300 mg PO TID 09/24/21 07/16/22 Sertraline [Zoloft] 200 mg PO DAILY 09/24/21 07/16/22 Ubrogepant [Ubrelvy] 100 mg PO BID PRN 09/24/21 07/16/22 rOPINIRole HCL [Requip] 2 mg PO HS 09/24/21 07/16/22 Budesonide/Glycopyr/Formoterol 1 puff INHALATION RT-BID 03/16/22 07/16/22 [Breztri Aerosphere Inhaler] Esomeprazole Magnesium [NexIUM] 40 mg PO DAILY 03/16/22 07/16/22 HYDROcodone/APAP 7.5-325MG [[place] 1 tab PO BID PRN 03/16/22 07/16/22 7.5-325] Midodrine [ProAmatine] 5 mg PO PC-TID PRN 03/16/22 07/16/22 Orphenadrine Citrate [Orphenadrine 100 mg PO HS PRN 03/16/22 07/16/22 Citrate ER] Botox 200unit Injection 1 dose INJ Q84D 04/02/22 07/16/22 Meclizine [Antivert] 12.5 mg PO Q8H PRN 04/02/22 07/16/22 Diphenhydramine 50mg/Ml Vial 50 mg IM Q6H PRN 04/18/22 07/16/22 Apixaban [Eliquis] 5 mg PO BID 05/29/22 07/16/22 Spironolactone [Aldactone] 50 mg PO DAILY 06/11/22 07/16/22 busPIRone HCl [Buspar] 5 mg PO BID 06/11/22 07/16/22 Bumetanide [BUMEX] 1 mg PO HS 06/21/22 07/16/22 Diclofenac Sodium Gel [Voltaren 4 gm TOPICAL QID PRN 06/21/22 07/16/22 Gel] Bumetanide [BUMEX] 2 mg PO DAILY 06/24/22 07/16/22 Previous Rx's Medication Instructions Recorded Hydrocortisone [Cortef] 20 mg PO BID 90 Days #180 tab 04/06/22 Potassium Chloride ER [K-Dur 20] 40 meq PO TID 30 Days #90 tab 04/16/22 Dicyclomine [Bentyl] 20 mg PO TID PRN #30 tablet 04/30/22 Ondansetron Odt [Zofran ODT] 4 mg PO Q8HR PRN #12 tab 04/30/22 Acetaminophen Tab [Tylenol] 650 mg PO Q6HR PRN tab 05/17/22 Topiramate [Topamax] 150 mg PO BID 90 Days #180 tab 06/12/22 Allergies Allergy/AdvReac Type Severity Reaction Status Date / Time Penicillins Allergy Severe Anaphylaxis Verified 07/16/22 17:11 vancomycin Allergy Severe Swelling Verified 07/16/22 17:11 in lips clindamycin Allergy Anaphylaxis Verified 07/16/22 17:11 Influenza Virus Vaccines Allergy Unknown Verified 07/16/22 17:11 latex Allergy Unknown Verified 07/16/22 17:11 morphine Allergy Unknown Verified 07/16/22 17:11 prochlorperazine Allergy Unknown Verified 07/16/22 17:11 [From Compazine] galcanezumab-gnlm AdvReac Confusion, Verified 07/16/22 17:11 [From Emgality Pen] increased blood pressure metoclopramide [From Reglan] AdvReac Unknown Verified 07/16/22 17:11 Review of Systems ROS Statement: Those systems with pertinent positive or pertinent negative responses have been documented in the HPI. ROS Other: All systems not noted in ROS Statement are negative. 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 for low K+ History of Any Multi-Drug Resistant Organisms: C-DIFF Date of last positivie culture/infection: 2021 MDRO Source:: Stool Past Surgical History: Back Surgery, Breast Surgery, Cardiac Valve Replacement, Section, Cholecystectomy, Hysterectomy, Pacemaker Additional Past Surgical History / Comment(s): pacemaker d/t bradycardia/ hypotension with last one place in 2013 in [place], [place], 3 lower back surgeries, bilateral breast reduction. 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 Past Anesthesia/Blood Transfusion Reactions: No Reported Reaction Type of Cardiac Device: Permanent Pacemaker, Unknown Device Placement Date:: 2012 Past Psychological History: Anxiety Smoking Status: Never smoker Past Alcohol Use History: None Reported Past Drug Use History: None Reported - Past Family History Mother Additional Family Medical History / Comment(s): Mother at the age of 49 yrs after surgery for silicon breast implants with a leak that caused ARDS and DIC per pt Father Family Medical History: Cancer, Hyperlipidemia, Hypertension Additional Family Medical History / Comment(s): Father is a colon cancer survivor. General Exam Limitations: no limitations General appearance: alert, in no apparent distress Head exam: Present: atraumatic, normocephalic Eye exam: Present: normal appearance, PERRL ENT exam: Present: normal exam Neck exam: Present: normal inspection. Absent: tenderness Respiratory exam: Present: normal lung sounds bilaterally. Absent: respiratory distress Cardiovascular Exam: Present: regular rate, normal rhythm GI/Abdominal exam: Present: soft. Absent: distended, tenderness Extremities exam: Present: normal inspection, normal capillary refill. Absent: pedal edema Neurological exam: Present: alert, oriented X3, CN II-XII intact. Absent: motor sensory deficit Psychiatric exam: Present: normal affect, normal mood Skin exam: Present: warm Course Vital Signs 07/16/22 15:51 Temperature 98.6 F Pulse Rate 88 Respiratory 20 Rate Blood Pressure 134/84 O2 Sat by Pulse 98 Oximetry EKG Findings - EKG Comments: EKG Findings:: EKG: Sinus rhythm with short W[place], rate of 88, WV interval 108, QRS duration 102, QTC 446, no ST segment elevation. - EKG Results: EKG: interpreted by JOSE Medical Decision Making - Medical Decision Making Was pt. sent in by a medical professional or institution (, PA, IT OPERATIONS MANAGER, urgent care, hospital, or long term...) When possible be specific @ -Sent in by primary care physician Did you speak to anyone other than the patient for history (EMS, parent, family, police, friend...)? What history was obtained from this source @ -[No] Did you review nursing and triage notes (agree or disagree)? Why? @ -[I reviewed and agree with nursing and triage notes] Were old charts reviewed (outside hosp., previous admission, EMS record, old EKG, old radiological studies, urgent care reports/EKG's, long term records)? Report findings @ -Previous laboratory tests reviewed including potassium level Differential Diagnosis (chest pain, altered mental status, abdominal pain women, abdominal pain men, vaginal bleeding, weakness, fever, dyspnea, syncope, headache, dizziness, GI bleed, back pain, seizure, CVA, palpatations, mental health, musculoskeletal)? @ -Differential Weakness: Hypoglycemia, shock, sepsis, hyponatremia, anemia, infection, MO, ETOH, adverse medicine reaction, overdose, stroke, this is not meant to be an all-inclusive list. EKG interpreted by me (3pts min.). @ -[As above] X-rays interpreted by me (1pt min.). @ -[None done] CT interpreted by me (1pt min.). @ -[None done] U/S interpreted by me (1pt. min.). @ -[None done] What testing was considered but not performed or refused? (CT, X-rays, U/S, labs)? Why? @ -[None] What meds were considered but not given or refused? Why? @ -[None] Did you discuss the management of the patient with other professionals (professionals i.e. , PA, IT OPERATIONS MANAGER, lab, RT, psych nurse, 7th grade social studies teacher, director of campus recreation, teacher, asset protection officer, child welfare caseworker)? Give summary @ -Discussed the patient's care with Dr. Hassan Was smoking cessation discussed for >3mins.? @ -[No] Was critical care preformed (if so, how long)? @ -[No] Were there social determinants of health that impacted care today? How? (Homelessness, low income, unemployed, alcoholism, drug addiction, transportation, low edu. Level, literacy, decrease access to med. care, fpc, rehab)? @ -[No] Was there de-escalation of care discussed even if they declined (Discuss DNR or withdrawal of care, Hospice)? DNR status @ -[No] What co-morbidities impacted this encounter? (DM, HTN, Smoking, COPD, CAD, Cancer, CVA, ARF, Chemo, Hep., AIDS, mental health diagnosis, sleep apnea, morbid obesity)? @ -Virus syndrome Was patient admitted / discharged? Hospital course, mention meds given and route, prescriptions, significant lab abnormalities, going to OR and other pertinent info. @ sharona syndrome Undiagnosed new problem with uncertain prognosis? @ -[No] Drug Therapy requiring intensive monitoring for toxicity (Heparin, Nitro, I nsulin, Cardizem)? @ -[No] Were any procedures done? @ -[No] Diagnosis/symptom? @ -Hypokalemia Acute, or Chronic, or Acute on Chronic? @ -Acute chronic Uncomplicated (without systemic symptoms) or Complicated (systemic symptoms)? @ -Uncomplicated Side effects of treatment? @ -[No] Exacerbation, Progression, or Severe Exacerbation? @ -Exacerbation of chronic issue Poses a threat to life or bodily function? How? (Chest pain, [place], MO, pneumonia, PE, COPD, DKA, ARF, appy, cholecystitis, CVA, Diverticulitis, Homicidal, Suicidal, threat to staff... and all critical care pts) @ -Risk of arrhythmia - Lab Data Result diagrams: 07/16/22 17:55 07/16/22 17:55 Lab Results 07/16/22 07/16/22 Range/Units 17:55 17:55 WBC 9.9 (3.8-10.6) k/uL RBC 4.56 (3.80-5.40) m/uL Hgb 13.9 (11.4-16.0) gm/dL Hct 41.1 (34.0-46.0) % MCV 90.2 (80.0-100.0) fL MCH 30.5 (25.0-35.0) pg MCHC 33.8 (31.0-37.0) g/dL RDW 13.0 (11.5-15.5) % Plt Count 282 (150-450) k/uL MPV 8.2 Neutrophils % 80 % Lymphocytes % 12 % Monocytes % 5 % Eosinophils % 1 % Basophils % 0 % Neutrophils # 7.9 H (1.3-7.7) k/uL Lymphocytes # 1.2 (1.0-4.8) k/uL Monocytes # 0.5 (0-1.0) k/uL Eosinophils # 0.1 (0-0.7) k/uL Basophils # 0.0 (0-0.2) k/uL Sodium 135 L (137-145) mmol/L Potassium 2.8 L (3.5-5.1) mmol/L Chloride 85 L (98-107) mmol/L Carbon Dioxide 39 H (22-30) mmol/L Anion Gap 11 mmol/L BUN 66 H (7-17) mg/dL Creatinine 1.68 H (0.52-1.04) mg/dL Est GFR (CKD-EPI)AfAm 38 (>60 ml/min/1.73 sqM) Est GFR (CKD-EPI)NonAf 33 (>60 ml/min/1.73 sqM) Glucose 145 H (74-99) mg/dL Calcium 9.7 (8.4-10.2) mg/dL Magnesium 2.8 H (1.6-2.3) mg/dL Disposition Clinical Impression: Hypokalemia Disposition: ADMITTED IP TO THIS HOSP Condition: Stable Is patient prescribed a controlled substance at d/c from ED?: No Referrals: Franklin Hassan MD [Primary Care Provider] - 1-2 days Time of Disposition: 19:09
[2022-07-16 18:38] LABS: Calcium 9.7 mg/dL (8.4-10.2); Magnesium 2.8 mg/dL (1.6-2.3); Potassium 2.8 mmol/L (3.5-5.1)
[2022-07-16] MEDS ORDERED: POTASSIUM CHLORIDE ER 20 MEQ TAB.ER PO STA (18:40)
[2022-07-16] MEDS ORDERED: ACETAMINOPHEN TAB 325 MG TAB PO PRN (19:03)
[2022-07-16] MEDS ORDERED: NALOXONE 0.4 MG/ML 1 ML VIAL IV PRN (19:03)
[2022-07-16] MEDS: HYDROmorphone 0.5 MG/0.5 ML SYRINGE IVP PRN (22:24)
[2022-07-16] MEDS: SODIUM CHLORIDE 0.9% 1,000 ML IV SCH (22:27)
[2022-07-16] MEDS: ATORVASTATIN 40 MG TAB PO SCH (23:43)
[2022-07-16] MEDS: diphenhydrAMINE 50 MG/ML 1 ML VIAL IVP PRN (23:43)
[2022-07-16] MEDS: APIXABAN 5 MG TAB PO SCH (23:43)
[2022-07-16] MEDS: busPIRone HCl 5 MG TAB PO SCH (23:44)
[2022-07-16] MEDS: GABAPENTIN 300 MG CAP PO SCH (23:44)
[2022-07-16] MEDS: TOPIRAMATE 100 MG TAB PO SCH (23:59)
[2022-07-16] MEDS: BUMETANIDE 1 MG TAB PO SCH (23:59)
[2022-07-17] MEDS: POTASSIUM CHLORIDE 20 MEQ in WATER FOR INJECTION 1 100ML.BAG IVPB SCH ×4 (00:01→17:35)
[2022-07-17] MEDS: DICYCLOMINE 20 MG TAB PO PRN ×2 (00:37→12:48)
[2022-07-17] MEDS: HYDROcodone/APAP 7.5-325MG 1 EACH TAB PO PRN ×2 (00:37→15:03)
[2022-07-17] MEDS: HYDROmorphone 0.5 MG/0.5 ML SYRINGE IVP PRN ×7 (03:28→21:57)
[2022-07-17] MEDS: diphenhydrAMINE 50 MG/ML 1 ML VIAL IVP PRN ×4 (05:18→23:21)
[2022-07-17] MEDS ORDERED: MECLIZINE 12.5 MG TAB PO PRN (08:00)
[2022-07-17] MEDS: SODIUM CHLORIDE 0.9% 1,000 ML IV SCH (08:37)
[2022-07-17] MEDS: PANTOPRAZOLE 40 MG TABLET PO SCH (08:37)
[2022-07-17] MEDS: HYDROCORTISONE 20 MG TAB PO SCH ×2 (08:37→21:59)
[2022-07-17] MEDS: SERTRALINE 100 MG TAB PO SCH (08:37)
[2022-07-17] MEDS: TOPIRAMATE 100 MG TAB PO SCH ×2 (08:37→21:58)
[2022-07-17] MEDS: APIXABAN 5 MG TAB PO SCH ×2 (08:38→22:00)
[2022-07-17] MEDS: BUMETANIDE 1 MG TAB PO SCH ×2 (08:38→21:59)
[2022-07-17] MEDS: busPIRone HCl 5 MG TAB PO SCH ×2 (08:38→22:00)
[2022-07-17] MEDS: GABAPENTIN 300 MG CAP PO SCH ×3 (08:38→21:59)
[2022-07-17] MEDS: SPIRONOLACTONE 25 MG TAB PO SCH (08:38)
[2022-07-17] MEDS: DICLOFENAC SODIUM GEL 100 GM TUBE TOPICAL PRN (08:42)
[2022-07-17] MEDS ORDERED: CHOLESTYRAMINE (WITH SUGAR) 4 GM PACKET PO PRN (09:00)
[2022-07-17 10:01] LABS: African American GFR (CKD) 43.4 (60.0-200.0); Anion Gap 10.4 mmol/L (10.00-18.00); BUN/Creat Ratio 39.67 Ratio (12.00-20.00); Blood Urea Nitrogen 60.3 mg/dL (9.0-27.0); Calcium 8.9 mg/dL (8.7-10.3); Carbon Dioxide 32.7 mmol/L (20.0-27.5); Magnesium 2.5 mg/dL (1.5-2.4); Non-African American GFR(CKD) 37.4 (60.0-200.0); Potassium 3.2 mmol/L (3.5-5.5)
[2022-07-17] MEDS: FLUDROCORTISONE 0.1 MG TAB PO SCH (15:55)
[2022-07-17] MEDS: LIDOCAINE 5% PATCH TOPICAL SCH (21:55)
[2022-07-17] MEDS: ATORVASTATIN 40 MG TAB PO SCH (21:59)
[2022-07-17] MEDS: NON FORMULARY DRUG (Ubrogepant [Ubrelvy] 100 MG Tablet) PO PRN (23:20)
--- NOTE | 2022-07-17 23:48 | HP ---
HISTORY AND PHYSICAL HISTORY OF PRESENT ILLNESS: A 57-year-old with weakness, muscle cramping, chronic hypokalemia. She had allergic reaction to her Emgality shot for migraine that made her very stressed, which lowered her blood potassium level. She is getting that worked up Hospital for unclear reasons for hypokalemia. She is admitted for IV boluses to replace potassium, still remains low after multiple boluses. HOME MEDICINES: 1. Lipitor 40 daily. 2. Questran 4 mg daily. 3. Gabapentin 300 t.i.d. 4. Zoloft 200 daily. 5. Ubrelvy 100 mg p.r.n. 6. Requip 2 mg at night. 7. Breztri 2 puffs b.i.d. 8. Nexium 40 mg daily. 9. Midodrine 5 mg before meals t.i.d. 10.[place] 7.5 b.i.d. 11.Botox injection, she gets every 84 days for headaches. 12.Antivert p.r.n. for vertigo. 13.Eliquis 5 mg b.i.d. for PE and DVT. 14.Aldactone 50 mg daily. 15.BuSpar 5 mg b.i.d. 16.Bumex 1 mg daily for diastolic heart failure. 17.Diclofenac gel. 18.Bumex 2 mg daily. ALLERGIES: See chart. REVIEW OF SYSTEMS: A 14-point review of systems, otherwise negative. See old chart. PAST MEDICAL HISTORY: Seizure disorder, renal disease, pulmonary embolism, lupus, blood disorder, multiple PEs, chronic kidney disease stage 3, orthostatic hypotension, pyoderma gangrenosum, migraines, cervical lumbar disk disease, vertigo, history of anxiety. PAST SURGICAL HISTORY: Back surgery, breast surgery, cardiac valve replacement, , cholecystectomy, hysterectomy, pacemaker, bilateral breast reduction, 3 lower back surgeries, tricuspid valve replacement with PEG valve, history of anxiety. SOCIAL HISTORY: Never smoked. No alcohol. PHYSICAL EXAMINATION: VITAL SIGNS: Temperature 98.6, pulse 88, respiratory rate 18 to 20, blood pressure 134/84, O2 is 98%. CARDIOVASCULAR: S1, S2. LUNGS: Clear. upper breath sounds. GI: Soft. HEMATOLOGY: Negative Homans. PSYCH: Fair mood and affect. LABORATORY DATA: Hemoglobin is 13.9, sodium 135, potassium 2.8, BUN is 66, creatinine 1.68, GFR is 38. ASSESSMENT: Hypokalemia, acute tubular necrosis, acute prerenal azotemia. PROGNOSIS: Guarded. Multiple medical conditions including above as mentioned. Replace potassium with multiple boluses. Once she is stable, we will send her home. OSMAN / MARITZA: [id number] /
[2022-07-18] MEDS: HYDROmorphone 0.5 MG/0.5 ML SYRINGE IVP PRN ×4 (04:07→21:15)
[2022-07-18] MEDS: SODIUM CHLORIDE 0.9% 1,000 ML IV SCH ×2 (05:34→11:48)
[2022-07-18] MEDS: NON FORMULARY DRUG (Ubrogepant [Ubrelvy] 100 MG Tablet) PO PRN ×2 (05:55→21:18)
[2022-07-18] MEDS: diphenhydrAMINE 50 MG/ML 1 ML VIAL IVP PRN ×3 (05:57→21:33)
[2022-07-18] MEDS: GABAPENTIN 300 MG CAP PO SCH ×3 (08:53→21:33)
[2022-07-18] MEDS: BUMETANIDE 1 MG TAB PO SCH ×2 (08:53→21:21)
[2022-07-18] MEDS: TOPIRAMATE 100 MG TAB PO SCH ×2 (08:53→21:19)
[2022-07-18] MEDS: APIXABAN 5 MG TAB PO SCH ×2 (08:54→21:20)
[2022-07-18] MEDS: busPIRone HCl 5 MG TAB PO SCH ×2 (08:54→21:20)
[2022-07-18] MEDS: SERTRALINE 100 MG TAB PO SCH (08:54)
[2022-07-18] MEDS: HYDROCORTISONE 20 MG TAB PO SCH ×2 (08:54→21:21)
[2022-07-18] MEDS: FLUDROCORTISONE 0.1 MG TAB PO SCH (08:54)
[2022-07-18] MEDS: PANTOPRAZOLE 40 MG TABLET PO SCH (08:54)
[2022-07-18] MEDS: SPIRONOLACTONE 25 MG TAB PO SCH (08:54)
[2022-07-18] MEDS: DICLOFENAC SODIUM GEL 100 GM TUBE TOPICAL PRN (08:55)
[2022-07-18] MEDS: LIDOCAINE 5% PATCH TOPICAL SCH (08:56)
[2022-07-18 09:44] LABS: ALT 22 U/L (8-44); AST 17 U/L (13-35); Albumin 4.3 g/dL (3.8-4.9); Albumin/Globulin Ratio 1.98 (1.60-3.17); Alkaline Phosphatase 62 U/L (41-126); BUN/Creat Ratio 34.15 Ratio (12.00-20.00); Basophils # (A) 0.03 X 10*3/uL (0.00-0.10); Basophils % (A) 0.4 %; Calcium 9.3 mg/dL (8.7-10.3); Carbon Dioxide 32.1 mmol/L (20.0-27.5); Chloride 96 mmol/L (96-109); Eosinophils % (A) 1.4 %; Globulin 2.2 g/dL (1.6-3.3); Glucose 144 mg/dL (70-110); HCT 37.3 % (37.2-46.3); HGB 12.1 g/dL (12.0-15.0); Immature Grans, Automated 0.4 %; Lymphocytes # (A) 1.03 X 10*3/uL (0.90-5.00); Lymphocytes % (A) 14.5 %; MCH 30.3 pg (27.0-32.0); MCHC 32.4 g/dL (32.0-37.0); MCV 93.5 fL (80.0-97.0); Monocytes # (A) 0.44 X 10*3/uL (0.20-1.00); Monocytes % (A) 6.2 %; NRBC Per 100 WBC 0 /100 WBCS (0.0-0.0); Neutrophils # (A) 5.48 X 10*3/uL (1.80-7.70); Neutrophils % (A) 77.1 %; Non-African American GFR(CKD) 48.3 (60.0-200.0); Platelet Count 246 X 10*3/uL (140-440); Potassium 2.9 mmol/L (3.5-5.5); RBC 3.99 X 10*6/uL (4.10-5.20); RDW 12.6 % (11.5-14.5); Sodium 140 mmol/L (135-145); Total Bilirubin <0.15 mg/dL (0.30-1.20); Total Protein 6.5 g/dL (6.2-8.2); WBC 7.11 X 10*3/uL (4.50-10.00)
[2022-07-18] MEDS ORDERED: Potassium Replacement Protocol 1 EACH MISC MISCELLANE PRN (10:59)
[2022-07-18] MEDS: HYDROmorphone 1 MG/ML 1 ML SYRINGE IVP PRN (11:05)
[2022-07-18] MEDS: POTASSIUM CHLORIDE ER 20 MEQ TAB.ER PO SCH ×3 (11:47→16:29)
[2022-07-18] MEDS: POTASSIUM CHLORIDE 20 MEQ in WATER FOR INJECTION 1 100ML.BAG IVPB SCH ×3 (11:47→16:29)
[2022-07-18] MEDS: methylPREDNISolone SOD SUCCI 40 MG/ML 1 ML VIAL IV SCH (16:28)
[2022-07-18] MEDS: HYDROcodone/APAP 7.5-325MG 1 EACH TAB PO PRN ×2 (18:35→18:36)
[2022-07-18] MEDS: FLUCONAZOLE 150 MG TAB PO SCH (21:17)
[2022-07-18] MEDS: ATORVASTATIN 40 MG TAB PO SCH (21:21)
--- NOTE | 2022-07-18 23:16 | PN ---
PROGRESS NOTE DATE OF SERVICE: 07/18/2022 SUBJECTIVE: This is a white female, who appears to be getting better. She started Solu-Medrol and increased pain medicine due to lumbar back pain. She has a severely back degenerative disk disease. We gave also IV Solu-Medrol to help with that as well as a lidocaine patch. Her potassium still remains 2.9. We have to consult Nephrology due to persistent hypokalemia, unclear etiology. She is supposed to go down to the center [place] the city to get a workup. OBJECTIVE: VITAL SIGNS: Temperature is 97.5, respiratory rate 18, pulse 77, blood pressure 106/68, 94% on room air. CARDIOVASCULAR: S1, S2. LUNGS: Clear. GI: Soft. EXTREMITIES: 2+ edema. ASSESSMENT: Persistent hypokalemia, unclear etiology. Await for Nephrology's opinion. Continue with boluses. Multiple boluses have been given since admission. Increase steroids and pain medicine for lumbar disk disease. Continue current treatments for multiple other medical problems. Once potassium is stabilized, she can be discharged. MMODL / IJN: [id number] /
[2022-07-19] MEDS: methylPREDNISolone SOD SUCCI 40 MG/ML 1 ML VIAL IV SCH ×3 (00:58→16:16)
[2022-07-19] MEDS: SODIUM CHLORIDE 0.9% 1,000 ML IV SCH (05:37)
[2022-07-19] MEDS: HYDROmorphone 0.5 MG/0.5 ML SYRINGE IVP PRN ×4 (06:21→21:43)
[2022-07-19] MEDS: diphenhydrAMINE 50 MG/ML 1 ML VIAL IVP PRN ×3 (06:47→21:42)
[2022-07-19] MEDS: SERTRALINE 100 MG TAB PO SCH (09:13)
[2022-07-19] MEDS: HYDROCORTISONE 20 MG TAB PO SCH ×2 (09:13→21:42)
[2022-07-19] MEDS: TOPIRAMATE 100 MG TAB PO SCH ×2 (09:14→20:18)
[2022-07-19] MEDS: BUMETANIDE 1 MG TAB PO SCH ×2 (09:14→20:18)
[2022-07-19] MEDS: MIDODRINE 5 MG TAB PO PRN (09:15)
[2022-07-19] MEDS: LIDOCAINE 5% PATCH TOPICAL SCH (09:16)
[2022-07-19] MEDS: SPIRONOLACTONE 25 MG TAB PO SCH ×2 (09:17→20:18)
[2022-07-19] MEDS: FLUDROCORTISONE 0.1 MG TAB PO SCH (09:17)
[2022-07-19] MEDS: busPIRone HCl 5 MG TAB PO SCH ×2 (09:17→20:17)
[2022-07-19] MEDS: PANTOPRAZOLE 40 MG TABLET PO SCH (09:17)
[2022-07-19] MEDS: GABAPENTIN 300 MG CAP PO SCH ×3 (09:17→21:43)
[2022-07-19] MEDS: APIXABAN 5 MG TAB PO SCH ×2 (09:17→20:18)
--- NOTE | 2022-07-19 11:43 | P.NPCON ---
History of Present Illness - Reason for Consult acute renal failure, chronic renal failure, hypokalemia - History of Present Illness Reason for consultation: Acute kidney injury on chronic kidney disease and hypokalemia History of present illness: Patient is a 57-year-old female seen in renal consultation for acute kidney injury on chronic kidney disease and hypokalemia. Patient has chronic kidney disease stage IIIa with baseline creatinine near 1.2-1.5. Etiology is cardiorenal syndrome and solitary functioning left kidney. Right kidney noted to be atrophic. Creatinine was 1.68 on admission and is down to 1.2 today. Patient has been receiving diuretics as well as IV fluids. She complains of more swelling in her upper extremities and abdomen today and is requesting more diuretics. 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 She is currently maintained on Florinef as well as Cortef. Patient was advised to follow-up with endocrinology outpatient but hasn't seen them yet. She also has not followed up with us outpatient. Patient has chronic hypokale stella and states she's had it for years even prior to diuretics. She is currently on diuretics as well as steroids which can both-induced renal potassium losses. Patient is not acidotic. In fact she is alkalotic. Blood pressure stable. Denies use of nonsteroidals. No vomiting or diarrhea. No chest pain or shortness of breath. Patient has a history of diastolic CHF with mild mitral and tricuspid regurgitation. She also admits to history of pyoderma gangrenosa. She has history of tricuspid valve repair. Denies gross hematuria or dysuria. Vital signs are stable. General: No acute distress. HEENT: Head exam is unremarkable. LUNGS: No audible rhonchi or wheezes. HEART: Rate and Rhythm are regular. ABDOMEN: Obese. Nontender. EXTREMITITES: No edema. Hands swollen. 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 for low K+ History of Any Multi-Drug Resistant Organisms: C-DIFF Date of last positivie culture/infection: 2021 MDRO Source:: Stool Past Surgical History: Back Surgery, Breast Surgery, Cardiac Valve Replacement, Section, Cholecystectomy, Hysterectomy, Pacemaker Additional Past Surgical History / Comment(s): pacemaker d/t bradycardia/hypotension with last one place in 2013 in [place], [place], 3 lower back surgeries, bilateral breast reduction. 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 She is independent. Smoking Status: Never smoker Past Alcohol Use History: None Reported Past Drug Use History: None Reported Additional Drug Use History / Comment(s): Marijuana use prn per pt. - Past Family History Mother Additional Family Medical History / Comment(s): Mother at the age of 49 yrs after surgery for silicon breast implants with a leak that caused ARDS and DIC per pt Father Family Medical History: Cancer, Hyperlipidemia, Hypertension Additional Family Medical History / Comment(s): Father is a colon cancer survivor. Medications and Allergies Home Medications Medication Instructions Recorded Confirmed Type Atorvastatin [Lipitor] 40 mg PO HS 09/24/21 07/16/22 History Cholestyramine (with Sugar) 4 gm PO DAILY PRN 09/24/21 07/16/22 History [Cholestyramine Packet] Gabapentin 300 mg PO TID 09/24/21 07/16/22 History Sertraline [Zoloft] 200 mg PO DAILY 09/24/21 07/16/22 History Ubrogepant [Ubrelvy] 100 mg PO BID PRN 09/24/21 07/16/22 History rOPINIRole HCL [Requip] 2 mg PO HS 09/24/21 07/16/22 History Budesonide/Glycopyr/Formoterol 1 puff INHALATION RT-BID 03/16/22 07/16/22 History [Breztri Aerosphere Inhaler] Esomeprazole Magnesium [NexIUM] 40 mg PO DAILY 03/16/22 07/16/22 History HYDROcodone/APAP 7.5-325MG [[place] 1 tab PO BID PRN 03/16/22 07/16/22 History 7.5-325] Midodrine [ProAmatine] 5 mg PO PC-TID PRN 03/16/22 07/16/22 History Orphenadrine Citrate [Orphenadrine 100 mg PO HS PRN 03/16/22 07/16/22 History Citrate ER] Botox 200unit Injection 1 dose INJ Q84D 04/02/22 07/16/22 History Meclizine [Antivert] 12.5 mg PO Q8H PRN 04/02/22 07/16/22 History Hydrocortisone [Cortef] 20 mg PO BID 90 Days #180 tab 04/06/22 07/16/22 Rx Potassium Chloride ER [K-Dur 20] 40 meq PO TID 30 Days #90 tab 04/16/22 07/16/22 Rx Diphenhydramine 50mg/Ml Vial 50 mg IM Q6H PRN 04/18/22 07/16/22 History Dicyclomine [Bentyl] 20 mg PO TID PRN #30 tablet 04/30/22 07/16/22 Rx Ondansetron Odt [Zofran ODT] 4 mg PO Q8HR PRN #12 tab 04/30/22 07/16/22 Rx Acetaminophen Tab [Tylenol] 650 mg PO Q6HR PRN tab 05/17/22 07/16/22 Rx Apixaban [Eliquis] 5 mg PO BID 05/29/22 07/16/22 History Spironolactone [Aldactone] 50 mg PO DAILY 06/11/22 07/16/22 History busPIRone HCl [Buspar] 5 mg PO BID 06/11/22 07/16/22 History Topiramate [Topamax] 150 mg PO BID 90 Days #180 tab 06/12/22 07/16/22 Rx Bumetanide [BUMEX] 1 mg PO HS 06/21/22 07/16/22 History Diclofenac Sodium Gel [Voltaren 4 gm TOPICAL QID PRN 06/21/22 07/16/22 History Gel] Bumetanide [BUMEX] 2 mg PO DAILY 06/24/22 07/16/22 History Allergies Allergy/AdvReac Type Severity Reaction Status Date / Time Penicillins Allergy Severe Anaphylaxis Verified 07/16/22 17:11 vancomycin Allergy Severe Swelling Verified 07/16/22 17:11 in lips clindamycin Allergy Anaphylaxis Verified 07/16/22 17:11 Influenza Virus Vaccines Allergy Unknown Verified 07/16/22 17:11 latex Allergy Unknown Verified 07/16/22 17:11 morphine Allergy Unknown Verified 07/16/22 17:11 prochlorperazine Allergy Unknown Verified 07/16/22 17:11 [From Compazine] galcanezumab-gnlm AdvReac Confusion, Verified 07/16/22 17:11 [From Emgality Pen] increased blood pressure metoclopramide [From Reglan] AdvReac Unknown Verified 07/16/22 17:11 Physical Exam Vitals: Vital Signs Temp Pulse Resp BP Pulse Ox 07/19/22 10:54 98.3 F 73 18 129/73 97 07/19/22 08:00 18 07/19/22 07:22 98.1 F 74 18 97/66 95 07/19/22 02:38 98.0 F 76 17 107/75 98 07/18/22 20:00 74 18 07/18/22 19:15 101.6 F H 74 17 128/78 98 07/18/22 18:28 103.0 F H 70 18 98 07/18/22 15:15 98.2 F 75 18 136/80 100 07/18/22 14:00 75 18 Intake and Output 07/18/22 07/19/22 07/19/22 22:59 06:59 14:59 Intake Total 653 Balance 653 Intake: Oral 653 Other: # Voids 2 2 Results - Lab Results Most recent lab results Calcium 9.3 mg/dL (8.7-10.3) 07/18/22 06:15 Magnesium 2.5 mg/dL (1.5-2.4) H 07/17/22 06:00 07/18/22 06:15 07/18/22 06:15 Assessment and Plan Plan: Assessment: 1. Acute kidney injury mostly prerenal secondary to diuresis. Creatinine peaked at 1.6 at this admission and was down to 1.2 as of yesterday. UA benign May 2022. No hydronephrosis noted on kidney ultrasound done April 2022. Right kidney atrophic. 2. Chronic kidney disease stage III a with baseline creatinine 1.2-1.5 secondary to solitary functioning left kidney and cardiorenal syndrome. 3. Volume overload. 4. Chronic diastolic CHF. 5. Hypokalemia likely from diuresis. Magnesium not low. Urine potassium has been on the higher side in the past. Also on steroids which would induce renal potassium losses. Genetic testing has been discussed with the patient outpatient but she is yet to follow up. 6. History of pyoderma gangrenosum. 7. History of tricuspid valve repair. 8. 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 Maintained on Cortef and Florinef. Plan: Potassium replaced. Follow-up morning labs. Hep-Lock IV fluids. Maintain current diuretics. Additional 1 mg IV Bumex this afternoon. Add 25 mg of spironolactone in p.m. Continue to monitor renal function and urine output. Advised to follow up outpatient 1 week post discharge. Has also been advised to follow-up with endocrinology outpatient. Check urine potassium to creatinine ratio. Thank you for the consultation. I will continue to follow the patient with you during her hospital stay.
[2022-07-19 11:52] LABS: Glucose,Whole Blood 274 mg/dL (70-110)
[2022-07-19] MEDS ORDERED: DEXTROSE 50% SYRINGE 50 ML IVP PRN ×4 (12:56→13:02)
[2022-07-19 13:13] LABS: Glucose,Whole Blood 156 mg/dL (70-110)
[2022-07-19 14:32] LABS: African American GFR (CKD) 59 (>60 ml/min/1.73 sqM); Anion Gap 9 mmol/L; Blood Urea Nitrogen 28 mg/dL (7-17); Calcium 8.6 mg/dL (8.4-10.2); Carbon Dioxide 26 mmol/L (22-30); Chloride 102 mmol/L (98-107); Glucose 134 mg/dL (74-99); Non-African American GFR(CKD) 51 (>60 ml/min/1.73 sqM); Potassium 3.5 mmol/L (3.5-5.1); Sodium 137 mmol/L (137-145)
[2022-07-19 14:58] LABS: Glucose,Whole Blood 240 mg/dL (70-110)
[2022-07-19] MEDS: INSULIN ASPART (NovoLOG) 100 UNIT/ML VIAL SQ SCH ×3 (15:00→20:30)
[2022-07-19] MEDS ORDERED: BUMETANIDE 0.25 MG/ML 4 ML VIAL IVP ONE (15:00)
[2022-07-19] MEDS ORDERED: POTASSIUM CHLORIDE ER 20 MEQ TAB.ER PO STA (16:06)
[2022-07-19 16:45] LABS: Appearance,Urine Clear (Clear); Bilirubin,Urine Negative (Negative); Blood,Urine Negative (Negative); Color,Urine Colorless; Glucose,Urine (UA) Negative (Negative); Ketones,Urine Negative (Negative); Leukocyte Esterase,Urine Negative (Negative); Nitrite,Urine Negative (Negative); PH, Urine 6.5 (5.0-8.0); Protein,Urine Negative (Negative); Specific Gravity,Urine 1.007 (1.001-1.035); Urobilinogen,Urine <2.0 mg/dL (<2.0)
[2022-07-19 17:26] LABS: Glucose,Whole Blood 191 mg/dL (70-110)
[2022-07-19] MEDS: LORazepam 2 MG/ML INJ IV PRN (17:54)
[2022-07-19 18:20] LABS: Basophils % (A) 0 %; Eosinophils % (A) 0 %; HCT 35.6 % (34.0-46.0); HGB 12.3 gm/dL (11.4-16.0); Lymphocytes # (A) 0.4 k/uL (1.0-4.8); Lymphocytes % (A) 3 %; MCH 31.8 pg (25.0-35.0); MCHC 34.5 g/dL (31.0-37.0); MCV 92.2 fL (80.0-100.0); Mean Platelet Volume 8.5; Monocytes # (A) 0.4 k/uL (0-1.0); Monocytes % (A) 3 %; Neutrophils # (A) 12.7 k/uL (1.3-7.7); Neutrophils % (A) 94 %; Platelet Count 211 k/uL (150-450); RBC 3.87 m/uL (3.80-5.40); RDW 13.3 % (11.5-15.5); WBC 13.6 k/uL (3.8-10.6)
[2022-07-19] MEDS: ATORVASTATIN 40 MG TAB PO SCH (20:17)
[2022-07-19] MEDS: FLUCONAZOLE 150 MG TAB PO SCH (21:42)
--- NOTE | 2022-07-19 22:25 | P.CONS ---
History of Present Illness - Reason for Consult Consult date: 07/19/22 - History of Present Illness Patient is a 57-year-old female with a past medical history significant for seizure disorder PE and renal insufficiency patient was noticed to have a low potassium of 2.5 in the outpatient setting for the patient was sent to the ER for further evaluation and treatment, on presentation to the hospital the patient was afebrile however she did spike a fever of 103 F last night, and did have a low-grade fever of 99.4 this afternoon patient mention she did have a fever with chills has been complaining of some sore throat but no other URI symptoms no chest pain some shortness of breath and occasional cough but not bringing up any sputum patient denies having any nausea no vomiting and no diarrhea patient on presentation to hospital did have a normal white count no CBC was done today BUN and creatinine mildly elevated patient potassium is normalized to 3.5 today liver enzymes has been normal infectious disease was consulted because of the fever Past Medical History Past Medical History: Blood Disorder, Pulmonary Embolus (PE), Renal Disease, Seizure Disorder Additional Past Medical History / Comment(s): Antiphospholipid antibody syndrome which causes clots and bleeding, multiple PEs, R renal artery embolism/now atrophic, CKD stage III, hypotension, hypokalemia especially w/stress, lupus, pyoderm grangrenosum, decreased pituitary function pt states d/t clot, migraines, chonic cervical/back pain, herniated discs, RLS, vertigo, recent adm. for low K+ History of Any Multi-Drug Resistant Organisms: C-DIFF Year Discovered:: 2021 MDRO Source:: Stool Past Surgical History: Back Surgery, Breast Surgery, Cardiac Valve Replacement, Section, Cholecystectomy, Hysterectomy, Pacemaker Additional Past Surgical History / Comment(s): pacemaker d/t bradycardia/hypotension with last one place in 2013 in [place], [place], 3 lower back surgeries, bilateral breast reduction. 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 She is independent. Smoking Status: Never smoker Past Alcohol Use History: None Reported Past Drug Use History: None Reported Additional Drug Use History / Comment(s): Marijuana use prn per pt. - Past Family History Mother Additional Family Medical History / Comment(s): Mother at the age of 49 yrs after surgery for silicon breast implants with a leak that caused ARDS and DIC per pt Father Family Medical History: Cancer, Hyperlipidemia, Hypertension Additional Family Medical History / Comment(s): Father is a colon cancer survivor. Medications and Allergies Home Medications Medication Instructions Recorded Confirmed Type Atorvastatin [Lipitor] 40 mg PO HS 09/24/21 07/16/22 History Cholestyramine (with Sugar) 4 gm PO DAILY PRN 09/24/21 07/16/22 History [Cholestyramine Packet] Gabapentin 300 mg PO TID 09/24/21 07/16/22 History Sertraline [Zoloft] 200 mg PO DAILY 09/24/21 07/16/22 History Ubrogepant [Ubrelvy] 100 mg PO BID PRN 09/24/21 07/16/22 History rOPINIRole HCL [Requip] 2 mg PO HS 09/24/21 07/16/22 History Budesonide/Glycopyr/Formoterol 1 puff INHALATION RT-BID 03/16/22 07/16/22 History [Breztri Aerosphere Inhaler] Esomeprazole Magnesium [NexIUM] 40 mg PO DAILY 03/16/22 07/16/22 History HYDROcodone/APAP 7.5-325MG [[place] 1 tab PO BID PRN 03/16/22 07/16/22 History 7.5-325] Midodrine [ProAmatine] 5 mg PO PC-TID PRN 03/16/22 07/16/22 History Orphenadrine Citrate [Orphenadrine 100 mg PO HS PRN 03/16/22 07/16/22 History Citrate ER] Botox 200unit Injection 1 dose INJ Q84D 04/02/22 07/16/22 History Meclizine [Antivert] 12.5 mg PO Q8H PRN 04/02/22 07/16/22 History Hydrocortisone [Cortef] 20 mg PO BID 90 Days #180 tab 04/06/22 07/16/22 Rx Potassium Chloride ER [K-Dur 20] 40 meq PO TID 30 Days #90 tab 04/16/22 07/16/22 Rx Diphenhydramine 50mg/Ml Vial 50 mg IM Q6H PRN 04/18/22 07/16/22 History Dicyclomine [Bentyl] 20 mg PO TID PRN #30 tablet 04/30/22 07/16/22 Rx Ondansetron Odt [Zofran ODT] 4 mg PO Q8HR PRN #12 tab 04/30/22 07/16/22 Rx Acetaminophen Tab [Tylenol] 650 mg PO Q6HR PRN tab 05/17/22 07/16/22 Rx Apixaban [Eliquis] 5 mg PO BID 05/29/22 07/16/22 History Spironolactone [Aldactone] 50 mg PO DAILY 06/11/22 07/16/22 History busPIRone HCl [Buspar] 5 mg PO BID 06/11/22 07/16/22 History Topiramate [Topamax] 150 mg PO BID 90 Days #180 tab 06/12/22 07/16/22 Rx Bumetanide [BUMEX] 1 mg PO HS 06/21/22 07/16/22 History Diclofenac Sodium Gel [Voltaren 4 gm TOPICAL QID PRN 06/21/22 07/16/22 History Gel] Bumetanide [BUMEX] 2 mg PO DAILY 06/24/22 07/16/22 History Allergies Allergy/AdvReac Type Severity Reaction Status Date / Time Penicillins Allergy Severe Anaphylaxis Verified 07/16/22 17:11 vancomycin Allergy Severe Swelling Verified 07/16/22 17:11 in lips clindamycin Allergy Anaphylaxis Verified 07/16/22 17:11 Influenza Virus Vaccines Allergy Unknown Verified 07/16/22 17:11 latex Allergy Unknown Verified 07/16/22 17:11 morphine Allergy Unknown Verified 07/16/22 17:11 prochlorperazine Allergy Unknown Verified 07/16/22 17:11 [From Compazine] galcanezumab-gnlm AdvReac Confusion, Verified 07/16/22 17:11 [From Emgality Pen] increased blood pressure metoclopramide [From Reglan] AdvReac Unknown Verified 07/16/22 17:11 Physical Exam Vitals: Vital Signs Temp Pulse Resp BP Pulse Ox 07/19/22 15:00 99.4 F 76 18 98/61 98 07/19/22 10:54 98.3 F 73 18 129/73 97 07/19/22 08:00 18 07/19/22 07:22 98.1 F 74 18 97/66 95 07/19/22 02:38 98.0 F 76 17 107/75 98 Intake and Output 07/19/22 07/19/22 07/19/22 06:59 14:59 22:59 Intake Total 773 Output Total 800 Balance 773 -800 Intake: Oral 773 Output: Urine 800 Other: # Voids 2 Results CBC & Chem 7: 07/19/22 17:52 07/19/22 14:00 Labs: Abnormal Lab Results - Last 24 Hours (Table) 07/19/22 07/19/22 07/19/22 Range/Units 10:53 13:12 14:00 WBC (3.8-10.6) k/uL Neutrophils # (1.3-7.7) k/uL Lymphocytes # (1.0-4.8) k/uL BUN 28 H (7-17) mg/dL Creatinine 1.18 H (0.52-1.04) mg/dL Glucose 134 H (74-99) mg/dL POC Glucose (mg/dL) 274 H 156 H (70-110) mg/dL C-Reactive Protein (<1.0) mg/dL 07/19/22 07/19/22 07/19/22 Range/Units 14:56 17:23 17:52 WBC (3.8-10.6) k/uL Neutrophils # (1.3-7.7) k/uL Lymphocytes # (1.0-4.8) k/uL BUN (7-17) mg/dL Creatinine (0.52-1.04) mg/dL Glucose (74-99) mg/dL POC Glucose (mg/dL) 240 H 191 H (70-110) mg/dL C-Reactive Protein 5.6 H (<1.0) mg/dL 07/19/22 Range/Units 17:52 WBC 13.6 H (3.8-10.6) k/uL Neutrophils # 12.7 H (1.3-7.7) k/uL Lymphocytes # 0.4 L (1.0-4.8) k/uL BUN (7-17) mg/dL Creatinine (0.52-1.04) mg/dL Glucose (74-99) mg/dL POC Glucose (mg/dL) (70-110) mg/dL C-Reactive Protein (<1.0) mg/dL Assessment and Plan Plan: 1patient with a fever last night and this patient admission to the hospital was for a low potassium patient currently did have mild respiratory symptoms mostly URI with concern for possible viral syndrome as the patient did have a normal white count, patient abdomen was soft rectal examination and no evidence of any cellulitis. 2patient with multiple antibiotic allergies that would limit the number of ant ibiotics safe to use. 3we will obtain blood cultures check a CRP procalcitonin UA and chest x-ray a long with influenza and COVID testing. 4empirically on Rocephin 2 g daily while waiting for the work-up to be completed. We will follow on clinical condition and cultures to further adjust medication if needed Thank you for this consultation we will follow the patient along with you Time with Patient: Greater than 30
[2022-07-20] MEDS: INSULIN ASPART (NovoLOG) 100 UNIT/ML VIAL SQ SCH ×4 (05:23→21:03)
[2022-07-20] MEDS: diphenhydrAMINE 50 MG/ML 1 ML VIAL IVP PRN ×3 (06:43→20:44)
[2022-07-20] MEDS: HYDROmorphone 0.5 MG/0.5 ML SYRINGE IVP PRN (06:43)
--- NOTE | 2022-07-20 08:05 | XR ---
EXAMINATION TYPE: XR chest 2V DATE OF EXAM: 07/20/2022 6:51 AM COMPARISON: Chest radiographs from 07/15/2022 TECHNIQUE: XR chest 2V Frontal and lateral views of the chest. CLINICAL INDICATION:Female, 57 years old with history of fever; FINDINGS: Lungs/Pleura: There is no evidence of pleural effusion, focal consolidation, or pneumothorax. Pulmonary vascularity: Unremarkable. Heart/mediastinum: Cardiomediastinal silhouette is prominent in size. Loop recorder overlies the hea rt. Post mitral valve repair changes.Single lead cardiac conduction device overlying the right hemith orax with lead projecting over the right ventricle. [id number] projecting over the left hemithorax with distal tip at the cavoatrial junction. Musculoskeletal: No acute osseous pathology. Other findings: Cholecystectomy clips in the right upper quadrant. IMPRESSION: Chronic changes without evidence for acute process. No significant change from prior exam.
[2022-07-20] MEDS: MIDODRINE 5 MG TAB PO PRN (09:31)
[2022-07-20] MEDS: busPIRone HCl 5 MG TAB PO SCH ×2 (09:32→21:01)
[2022-07-20] MEDS: BUMETANIDE 1 MG TAB PO SCH ×2 (09:32→21:02)
[2022-07-20] MEDS: SERTRALINE 100 MG TAB PO SCH (09:33)
[2022-07-20] MEDS: SPIRONOLACTONE 25 MG TAB PO SCH ×2 (09:33→21:02)
[2022-07-20] MEDS: PANTOPRAZOLE 40 MG TABLET PO SCH (09:33)
[2022-07-20] MEDS: HYDROCORTISONE 20 MG TAB PO SCH ×2 (09:33→21:05)
[2022-07-20] MEDS: GABAPENTIN 300 MG CAP PO SCH ×3 (09:33→21:02)
[2022-07-20] MEDS: APIXABAN 5 MG TAB PO SCH ×2 (09:33→21:02)
[2022-07-20] MEDS: LIDOCAINE 5% PATCH TOPICAL SCH (09:34)
[2022-07-20] MEDS: TOPIRAMATE 100 MG TAB PO SCH ×2 (09:35→21:02)
[2022-07-20] MEDS: HYDROcodone/APAP 7.5-325MG 1 EACH TAB PO PRN (09:42)
--- NOTE | 2022-07-20 10:35 | P.PN ---
Subjective Patient is seen in follow-up for acute kidney injury on chronic kidney disease and hypokalemia. Oral intake fair. Still feels swollen. No vomiting or diarrhea. Morning labs pending. Vital signs are stable. General: No acute distress. HEENT: Head exam is unremarkable. LUNGS: No audible rhonchi or wheezes. HEART: Rate and Rhythm are regular. ABDOMEN: Obese. Nontender. EXTREMITITES: No edema in lower extremities. Hand swollen. Objective - Vital Signs Vital signs: Vital Signs Temp 98.1 F 07/20/22 09:05 Pulse 70 07/20/22 09:05 Resp 17 07/20/22 09:05 BP 109/70 07/20/22 09:05 Pulse Ox 96 07/20/22 09:05 FiO2 Intake & Output 07/19/22 07/20/22 07/20/22 18:59 06:59 18:59 Intake Total 773 240 Output Total 800 Balance -27 240 Intake: Oral 773 240 Output: Urine 800 - Labs CBC & Chem 7: 07/19/22 17:52 07/19/22 14:00 Labs: Abnormal Lab Results - Last 24 Hours (Table) 07/19/22 07/19/22 07/19/22 Range/Units 10:53 13:12 14:00 WBC (3.8-10.6) k/uL Neutrophils # (1.3-7.7) k/uL Lymphocytes # (1.0-4.8) k/uL BUN 28 H (7-17) mg/dL Creatinine 1.18 H (0.52-1.04) mg/dL Glucose 134 H (74-99) mg/dL POC Glucose (mg/dL) 274 H 156 H (70-110) mg/dL C-Reactive Protein (<1.0) mg/dL Ur Random Creatinine (28.0-217.0) mg/dL 07/19/22 07/19/22 07/19/22 Range/Units 14:56 17:23 17:52 WBC (3.8-10.6) k/uL Neutrophils # (1.3-7.7) k/uL Lymphocytes # (1.0-4.8) k/uL BUN (7-17) mg/dL Creatinine (0.52-1.04) mg/dL Glucose (74-99) mg/dL POC Glucose (mg/dL) 240 H 191 H (70-110) mg/dL C-Reactive Protein 5.6 H (<1.0) mg/dL Ur Random Creatinine (28.0-217.0) mg/dL 07/19/22 07/19/22 Range/Units 17:52 Unknown WBC 13.6 H (3.8-10.6) k/uL Neutrophils # 12.7 H (1.3-7.7) k/uL Lymphocytes # 0.4 L (1.0-4.8) k/uL BUN (7-17) mg/dL Creatinine (0.52-1.04) mg/dL Glucose (74-99) mg/dL POC Glucose (mg/dL) (70-110) mg/dL C-Reactive Protein (<1.0) mg/dL Ur Random Creatinine 18.5 L (28.0-217.0) mg/dL Assessment and Plan Plan: Assessment: 1. Acute kidney injury mostly prerenal secondary to diuresis. Creatinine pea ked at 1.6 at this admission and was down to 1.18 as of yesterday. UA benign May 2022. No hydronephrosis noted on kidney ultrasound done April 2022. Right kidney atrophic. 2. Chronic kidney disease stage IIIa with baseline creatinine 1.2-1.5 secondary to solitary functioning left kidney and cardiorenal syndrome. 3. Volume overload. 4. Chronic diastolic CHF. 5. Hypokalemia likely from diuresis. Magnesium not low. Urine potassium has been on the either normal or on higher side in the past. Also on steroids which would induce renal potassium losses. Genetic testing has been discussed with the patient outpatient but she is yet to follow up. 6. History of pyoderma gangrenosum. 7. History of tricuspid valve repair. 8. 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 Maintained on Cortef and Florinef. Plan: Potassium replaced. Follow-up morning labs. Off IV fluids. Maintain current diuretics. Additional 40 mg IV Lasix this afternoon. Continue to monitor renal function and urine output. Advised to follow up outpatient 1 week post discharge. Has also been advised to follow-up with endocrinology outpatient.
[2022-07-20 11:48] LABS: Calcium 8.4 mg/dL (8.4-10.2); Magnesium 2.4 mg/dL (1.6-2.3); Potassium 4.1 mmol/L (3.5-5.1)
[2022-07-20] MEDS ORDERED: IOPAMIDOL CONTRAST (ORAL USE) VIAL PO PRN (11:53)
[2022-07-20 12:08] LABS: Glucose,Whole Blood 113 mg/dL (70-110)
[2022-07-20] MEDS: HYDROmorphone 1 MG/ML 1 ML SYRINGE IVP PRN ×3 (12:11→20:44)
[2022-07-20] MEDS: NON FORMULARY DRUG (Ubrogepant [Ubrelvy] 100 MG Tablet) PO PRN (12:18)
[2022-07-20] MEDS: ONDANSETRON ODT 4 MG TAB PO PRN (12:43)
--- NOTE | 2022-07-20 14:52 | CT ---
EXAMINATION TYPE: CT abdomen pelvis wo con CT DLP: 712.3 mGycm, Automated exposure control for dose reduction was used. DATE OF EXAM: 07/20/2022 2:37 PM COMPARISON: CT abdomen pelvis most recent from 04/30/2022. CLINICAL INDICATION:Female, 57 years old with history of fever; abdominal pain, fever TECHNIQUE: Standard CT of the abdomen and pelvis following the administration of oral contrast. Cor onal and sagittal reformats were performed. FINDINGS: LOWER CHEST: Bibasilar linear scarring and/or atelectasis. Mild cardiomegaly. Postsurgical changes fr om tricuspid valve repair. Partial visualization of catheter within the proximal right atrium. Trace pericardial fluid. ABDOMEN LIVER: A few scattered subcentimeter hypodensities which are too small character as well as represent cysts. GALLBLADDER AND BILE DUCTS: The gallbladder is surgically absent. PANCREAS: Unremarkable noncontrast appearance. SPLEEN: Unremarkable noncontrast appearance ADRENAL GLANDS: Unremarkable noncontrast appearance. KIDNEYS AND URETERS: No hydronephrosis. Atrophy of the right kidney. Nonobstructive punctate bilatera l renal calculi measuring up to 3 mm. No perinephric fluid collections or fat stranding. PELVIS BLADDER: Unremarkable REPRODUCTIVE: The uterus is surgically absent. ABDOMEN & PELVIS STOMACH AND BOWEL: Small hiatal hernia, duodenum is unremarkable. Few scattered distal colonic divert icula without evidence for acute diverticulosis. Mild colonic stool burden. Enteric contrast reaches the cecum. The appendix is not visualized however there is no significant inflammatory changes within the right lower quadrant. No evidence of bowel obstruction. PERITONEUM: No evidence of pneumoperitoneum or free fluid. VASCULATURE: No evidence of aortic aneurysm. MUSCULOSKELETAL: No acute osseous abnormalities. Postsurgical changes with bilateral lacunar screws a nd rods and laminectomy changes involving L5-S1. Grade 1 anterolisthesis of L4 on L5 without evidence of pars defects. Mild to moderate multilevel degenerative disc disease of the lower lumbar spine. Mu ltilevel facet arthropathy. LYMPH NODES: No gross evidence for lymphadenopathy. SOFT TISSUE/ABDOMINAL WALL: Unremarkable IMPRESSION: 1. No acute abdominal/pelvic process. 2. Colonic diverticulosis without evidence for acute diverticulitis. 3. Nonobstructive bilateral renal calculi. 4. Small hiatal hernia. 5. Mild colonic stool burden.
[2022-07-20] MEDS ORDERED: FUROSEMIDE 10 MG/ML 4 ML VIAL IV ONE (15:00)
[2022-07-20] MEDS: FLUDROCORTISONE 0.1 MG TAB PO SCH (16:11)
[2022-07-20 16:34] LABS: Glucose,Whole Blood 98 mg/dL (70-110)
--- NOTE | 2022-07-20 19:24 | P.PN ---
Subjective Progress Note Date: 07/20/22 Principal diagnosis: Fever Patient is a 57-year-old female with a past medical history significant for seizure disorder PE and renal insufficiency patient was admitted to the hospital with low potassium of 2.5, patient did have a fever that prompted his infectious disease consultation. On today's evaluation that is 07/20/2022, patient did have a low-grade fever of 99.5 last evening and patient is afebrile this morning has been coming of some vague abdominal pain nausea but no vomiting and no diarrhea no chest pain shortness of breath or cough Objective - Vital Signs Vital signs: Vital Signs Temp 98.1 F 07/20/22 09:05 Pulse 70 07/20/22 09:05 Resp 17 07/20/22 09:05 BP 109/70 07/20/22 09:05 Pulse Ox 96 07/20/22 09:05 FiO2 Intake & Output 07/19/22 07/20/22 07/20/22 18:59 06:59 18:59 Intake Total 773 240 Output Total 800 Balance -27 240 Intake: Oral 773 240 Output: Urine 800 - Exam GENERAL DESCRIPTION: Middle-aged female lying in bed in no distress RESPIRATORY SYSTEM: Unlabored breathing , decreased breath sounds at bases HEART: S1 S2 regular rate and rhythm , ABDOMEN: Soft , no tenderness EXTREMITIES: No edema feet - Labs CBC & Chem 7: 07/19/22 17:52 07/20/22 10:55 Labs: Abnormal Lab Results - Last 24 Hours (Table) 07/19/22 07/19/22 07/19/22 Range/Units 10:53 13:12 14:00 WBC (3.8-10.6) k/uL Neutrophils # (1.3-7.7) k/uL Lymphocytes # (1.0-4.8) k/uL BUN 28 H (7-17) mg/dL Creatinine 1.18 H (0.52-1.04) mg/dL Glucose 134 H (74-99) mg/dL POC Glucose (mg/dL) 274 H 156 H (70-110) mg/dL C-Reactive Protein (<1.0) mg/dL Ur Random Creatinine (28.0-217.0) mg/dL 07/19/22 07/19/22 07/19/22 Range/Units 14:56 17:23 17:52 WBC (3.8-10.6) k/uL Neutrophils # (1.3-7.7) k/uL Lymphocytes # (1.0-4.8) k/uL BUN (7-17) mg/dL Creatinine (0.52-1.04) mg/dL Glucose (74-99) mg/dL POC Glucose (mg/dL) 240 H 191 H (70-110) mg/dL C-Reactive Protein 5.6 H (<1.0) mg/dL Ur Random Creatinine (28.0-217.0) mg/dL 07/19/22 07/19/22 Range/Units 17:52 Unknown WBC 13.6 H (3.8-10.6) k/uL Neutrophils # 12.7 H (1.3-7.7) k/uL Lymphocytes # 0.4 L (1.0-4.8) k/uL BUN (7-17) mg/dL Creatinine (0.52-1.04) mg/dL Glucose (74-99) mg/dL POC Glucose (mg/dL) (70-110) mg/dL C-Reactive Protein (<1.0) mg/dL Ur Random Creatinine 18.5 L (28.0-217.0) mg/dL Assessment and Plan (1) Fever Current Visit: Yes Status: Acute Code(s): R50.9 - FEVER, UNSPECIFIED SNOMED Code(s): 425519133 Plan: 1patient with a fever last night and this patient admission to the hospital was for a low potassium patient currently did have mild respiratory symptoms mostly URI with concern for possible viral syndrome as the patient did have a normal white count, patient abdomen was soft on clinical examination and no evidence of any cellulitis. 2patient with multiple antibiotic allergies that would limit the number of antibiotics safe to use. 3 blood cultures currently pending CRP mildly elevated but normal procalcitonin , UA negative chest x-ray reported negative for pneumonia 4we will obtain CT abdominal pelvis with oral contrast and continue with empiric Rocephin while waiting for the culture finalized Time with Patient: Less than 30
[2022-07-20 20:29] LABS: Glucose,Whole Blood 93 mg/dL (70-110)
[2022-07-20] MEDS: LORazepam 2 MG/ML INJ IV PRN (20:46)
[2022-07-20] MEDS: ATORVASTATIN 40 MG TAB PO SCH (21:02)
[2022-07-20] MEDS: ZONISAMIDE 25 MG CAP PO SCH (21:04)
[2022-07-20] MEDS: FLUCONAZOLE 150 MG TAB PO SCH (21:04)
[2022-07-21] MEDS: diphenhydrAMINE 50 MG/ML 1 ML VIAL IVP PRN ×4 (04:32→22:16)
[2022-07-21] MEDS: HYDROmorphone 1 MG/ML 1 ML SYRINGE IVP PRN ×5 (04:33→20:46)
[2022-07-21 06:11] LABS: Glucose,Whole Blood 92 mg/dL (70-110)
[2022-07-21] MEDS: INSULIN ASPART (NovoLOG) 100 UNIT/ML VIAL SQ SCH ×4 (06:16→20:40)
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
[2022-07-21] MEDS: FLUDROCORTISONE 0.1 MG TAB PO SCH (08:13)
[2022-07-21] MEDS: GABAPENTIN 300 MG CAP PO SCH ×3 (08:13→20:47)
[2022-07-21] MEDS: TOPIRAMATE 100 MG TAB PO SCH (08:13)
[2022-07-21] MEDS: ZONISAMIDE 25 MG CAP PO SCH (08:13)
[2022-07-21] MEDS: APIXABAN 5 MG TAB PO SCH (08:13)
[2022-07-21] MEDS: SERTRALINE 100 MG TAB PO SCH (08:14)
[2022-07-21] MEDS: HYDROCORTISONE 20 MG TAB PO SCH (08:14)
[2022-07-21] MEDS: LIDOCAINE 5% PATCH TOPICAL SCH (08:14)
[2022-07-21] MEDS: PANTOPRAZOLE 40 MG TABLET PO SCH (08:20)
[2022-07-21] MEDS: SPIRONOLACTONE 25 MG TAB PO SCH ×2 (08:20→20:47)
[2022-07-21] MEDS: busPIRone HCl 5 MG TAB PO SCH ×2 (08:20→20:47)
[2022-07-21] MEDS: BUMETANIDE 1 MG TAB PO SCH ×2 (08:21→20:47)
[2022-07-21] MEDS: LORazepam 2 MG/ML INJ IV PRN (09:41)
[2022-07-21 09:48] LABS: Appearance,Urine Clear (Clear); Bilirubin,Urine Negative (Negative); Blood,Urine Negative (Negative); Color,Urine Yellow; Glucose,Urine (UA) Negative (Negative); Ketones,Urine Negative (Negative); Leukocyte Esterase,Urine Negative (Negative); Nitrite,Urine Negative (Negative); PH, Urine 6.5 (5.0-8.0); Protein,Urine Negative (Negative); Specific Gravity,Urine 1.014 (1.001-1.035); Urobilinogen,Urine <2.0 mg/dL (<2.0)
[2022-07-21 09:53] LABS: HCT 37.2 % (34.0-46.0); HGB 12.2 gm/dL (11.4-16.0); MCHC 32.7 g/dL (31.0-37.0); MCV 94.9 fL (80.0-100.0); Mean Platelet Volume 8.8; Platelet Count 209 k/uL (150-450); RBC 3.92 m/uL (3.80-5.40); RDW 13.9 % (11.5-15.5)
[2022-07-21 10:08] LABS: Calcium 8.8 mg/dL (8.4-10.2)
[2022-07-21 11:54] LABS: Glucose,Whole Blood 105 mg/dL (70-110)
--- NOTE | 2022-07-21 12:51 | PN ---
PROGRESS NOTE She continues to do a little bit better today. She had a CT scan of abdomen and pelvis today. It shows a small hiatal hernia. Duodenum unremarkable. No significant findings. Otherwise, mild stool burden. Colonic diverticula. Dr. Luo saw her also. She has a history of seizure disorder, renal insufficiency, seizure secondary to elevated steroid use, hypokalemia with potassium improving, low-grade fever. BUN is 26, creatinine is 1.31. White count is 13.6, hemoglobin 12.3. OBJECTIVE: LUNGS: Unlabored breathing. HEART: S1, S2. ABDOMEN: Soft. EXTREMITIES: No edema. LABORATORY DATA: White count 13.6. Sugars ASSESSMENT: Multiple medical problems, seizure disorder, fever, unclear etiology. Dr. Luo is working her up for possible viral syndrome. Normal white count. Abdomen is normal. Multiple antibiotic allergies. Blood cultures are pending. Normal procalcitonin. Seizures are under better control now that she is on steroids. Sugars are under better control. Prognosis guarded. Possible discharge home soon. MMODL / IJN: [id number] /
[2022-07-21 14:05] VITALS: BMI 28.1
--- NOTE | 2022-07-21 14:36 | P.PN ---
Subjective Patient is seen in follow-up for acute kidney injury on chronic kidney disease and hypokalemia. Oral intake fair. Edema improved. No vomiting or diarrhea. Renal function worsened from diuresis. Hemodynamically stable. Vital signs are stable. General: No acute distress. HEENT: Head exam is unremarkable. LUNGS: No audible rhonchi or wheezes. HEART: Rate and Rhythm are regular. ABDOMEN: Obese. Nontender. EXTREMITITES: No edema in lower extremities. Objective - Vital Signs Vital signs: Vital Signs Temp 98.4 F 07/21/22 12:00 Pulse 71 07/21/22 12:00 Resp 16 07/21/22 12:00 BP 122/82 07/21/22 12:00 Pulse Ox 96 07/21/22 12:00 FiO2 Intake & Output 07/20/22 07/21/22 07/21/22 18:59 06:59 18:59 Intake Total 240 Balance 240 Weight 69.853 kg Intake: Oral 240 Other: # Voids 2 1 1 - Labs CBC & Chem 7: 07/21/22 08:33 07/21/22 07:49 Labs: Abnormal Lab Results - Last 24 Hours (Table) 07/21/22 07/21/22 Range/Units 07:49 07:49 BUN 29 H (7-17) mg/dL Creatinine 1.55 H (0.52-1.04) mg/dL Magnesium 2.5 H (1.6-2.3) mg/dL Microbiology - Last 24 Hours (Table) 07/19/22 17:52 Blood Culture - Preliminary Blood No Growth after 24 hours Assessment and Plan Plan: Assessment: 1. Acute kidney injury mostly prerenal secondary to diuresis. Creatinine peaked at 1.6 at this admission and was down to 1.11 - 1.55 today from diuresis. UA benign. No hydronephrosis noted on kidney ultrasound done April 2022. Right kidney atrophic. 2. Chronic kidney disease stage IIIa with baseline creatinine 1.2-1.5 secondary to solitary functioning left kidney and cardiorenal syndrome. 3. Volume overload. Improving. 4. Chronic diastolic CHF. 5. Hypokalemia likely from diuresis. Magnesium not low. Urine potassium has been on the either normal or on higher side in the past. Also on steroids which would induce renal potassium losses. Genetic testing has been discussed with the patient outpatient but she is yet to follow up. Stable. 6. History of pyoderma gangrenosum. 7. History of tricuspid valve repair. 8. 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 Maintained on Cortef and Florinef. Plan: Maintain current diuretics. Continue to monitor renal function and urine output. Advised to follow up outpatient 1 week post discharge. Has also been advised to follow-up with endocrinology outpatient.
--- NOTE | 2022-07-21 14:49 | P.PAINPG ---
Objective - Vital Signs Vital signs: Vital Signs Temp 97.9 F 07/21/22 08:00 Pulse 82 07/21/22 08:00 Resp 16 07/21/22 08:00 BP 132/95 07/21/22 08:00 Pulse Ox 95 07/21/22 08:00 FiO2 Intake & Output 07/20/22 07/21/22 07/21/22 18:59 06:59 18:59 Intake Total 240 Balance 240 Intake: Oral 240 Other: # Voids 2 1 1 - Labs CBC & Chem 7: 07/21/22 08:33 07/21/22 07:49 Labs: Abnormal Lab Results - Last 24 Hours (Table) 07/20/22 07/20/22 Range/Units 10:55 12:06 Sodium 136 L (137-145) mmol/L BUN 26 H (7-17) mg/dL Creatinine 1.11 H (0.52-1.04) mg/dL POC Glucose (mg/dL) 113 H (70-110) mg/dL Magnesium 2.4 H (1.6-2.3) mg/dL Microbiology - Last 24 Hours (Table) 07/19/22 17:52 Blood Culture - Preliminary Blood No Growth after 24 hours PQRS Measure Charge Sheet Comment: HISTORY OF PRESENT ILLNESS: 57 yr old inpatient female as a referral from Dr Simmons presents today w severe and chronic neck pain secondary to DDD, spondylosis and facet arthropathy without myelopathy for evaluation. Her last BL EHSAN injection was 04/20/22 where she admits she experienced 100% pain relief x 6-8 wks s/p procedure. Pt states pain level is at 7/10 in intensity, constant, localized in the base of the head, sharp, achy in character w shooting pain towards the top of the head. Pain is provoked by hyperextension and certain positions laying supine on a pillow. Pain is alleviated by injections, medications, massage, repositioning and rest. PMH: Seizure Disorder, PE, R Renal Artery Embolism, CKD III, APS, SLE, RLS, Anxiety PSH: Lumbar Surgery x3, BL Breast Reduction, Tricuspid Valve Replacement x2 w Pig Valve, Section, Cholecystectomy, Hysterectomy, Pacemaker, LUE Port, BL EHSAN (Apr 2022) SH: and lives w spouse. Never smoker, No ETOH abuse, Cannabis use. FH: Fa- Colon CA, HTN, Hyperlipidemia. Mo- at age 48/ DIC from Breast Augmentation All: See list Meds: See list REVIEW OF ORGAN SYSTEMS: CONSTITUTIONAL: No fevers or chills. No recent weight loss. NEUROLOGICAL: + numbness and tingling along the distal extremities. No seizure disorders or headaches. MUSCULOSKELETAL: + pain PSYCHIATRIC: Denies current depression or suicidal thoughts. Physical Examinations : Constitutional : Cooperative , not in acute distress . Neurologic : Cranial nerve II to XII intact. No focal neurological deficits. Psychiatric : alert & oriented x 3. Matching mood & appropriate affect. Judgment & insight intact. Musculoskeletal : Cervical Spine +BL EHSAN TTP Motor strength in the deltoid and biceps: Normal right side. Normal Left side Motor strength biceps and the wrist extensors: Normal right side . Normal left side Motor strength in the triceps muscle: Normal right side. Normal left side Deep tendon reflexes: Normal at the biceps. Normal at Brachioradialis. Normal at triceps Vertebral body tenderness to deep palpation over Cervical facet loading test: positive bilaterally Spurling test: positive bilaterally Neck distraction test: positive bilat erally Talat sign: positive bilaterally Lumbar spine Motor strength lower extremities ,thigh and legs 5/5 Right side , 5/5 Left side Deep tendon reflexes : Normal Knee Jerk. Normal Ankle Jerk Vertebral body tenderness over Lumbar facet Loading Test: positive Right / positive Left Range of motion of the lumbar spine Flexion 30 degrees, extension 10 degrees Straight Leg Raise test: Left/ Right positive at degree Wu test: positive right / positive left. Severe tenderness over the Sacroiliac joint on the Right / Left sides Gaenslen test: positive bilaterally Seated flexion test: positive bilaterally. Sacral spine : Severe tenderness over the Sacroiliac joint: right side / left side Range of motion: Flexion of the lumbar spine <60 degrees Range of motion: Extension of the lumbar spine <20 degrees Gaenslen's Test positive Ronnie's Test positive Wu test: positive right side / left side Thigh Thrust Test Sacral Thrust Test Assessment/ Plan : Occipital Neuralgia and Cervicogenic Headache Recommendation of BL EHSAN injections. As pt is on Eliquis and needs held for 3 days prior to procedure, her treatment will be scheduled on an outpatient basis in the OR. Risks, benefits of procedure discussed and patient verbalized understanding. Admits to aspirin or anti- coagulant use or medical history of diabetes. Protocol for discontinuation/ continuation of medications mariel procedure discussed. All questions answered. I have spent greater than 30 minutes on patient care today. Dr Hirsch was available by phone for the evaluation of this patient. The time was used to review the medical records including relevant urine studies and Prescription history (MAPs), review of the available imaging, evaluation and examination of the patient, coordination of care with the medical staff and if applicable referring physicians, as well as creation of the medical record - Pain Location Head Non-Pharmacological Interventions: Darkened Room, Position/Reposition, Reduce Environmental Stimuli Pharmacological Interventions: PRN Medication Back Non-Pharmacological Interventions: Darkened Room, Distraction, Environmental Control, Reduce Environmental Stimuli Pharmacological Interventions: PRN Medication Pain Comment: see mar PQRS Narrative: Blood Pressure [Right Arm] 132/95 Blood Pressure 111/68 Pain Intensity [Back] 7 Pain Intensity [Head] 9 Pain Intensity [Leg] 9 Pain Intensity 5 Pain Scale Used Numeric (1 - 10) Scale Used see mar Home Medications: Ambulatory Orders Atorvastatin [Lipitor] 40 mg PO HS 09/24/21 Cholestyramine (with Sugar) [Cholestyramine Packet] 4 gm PO DAILY PRN 09/24/21 Gabapentin 300 mg PO TID 09/24/21 Sertraline [Zoloft] 200 mg PO DAILY 09/24/21 Ubrogepant [Ubrelvy] 100 mg PO BID PRN 09/24/21 rOPINIRole HCL [Requip] 2 mg PO HS 09/24/21 Budesonide/Glycopyr/Formoterol [Breztri Aerosphere Inhaler] 1 puff INHALATION RT-BID 03/16/22 Esomeprazole Magnesium [NexIUM] 40 mg PO DAILY 03/16/22 HYDROcodone/APAP 7.5-325MG [[place] 7.5-325] 1 tab PO BID PRN 03/16/22 Midodrine [ProAmatine] 5 mg PO PC-TID PRN 03/16/22 Orphenadrine Citrate [Orphenadrine Citrate ER] 100 mg PO HS PRN 03/16/22 Botox 200unit Injection 1 dose INJ Q84D 04/02/22 Meclizine [Antivert] 12.5 mg PO Q8H PRN 04/02/22 Hydrocortisone [Cortef] 20 mg PO BID 90 Days #180 tab 12/06/22 Potassium Chloride ER [K-Dur 20] 40 meq PO TID 30 Days #90 tab 04/16/22 Diphenhydramine 50mg/Ml Vial 50 mg IM Q6H PRN 04/18/22 Dicyclomine [Bentyl] 20 mg PO TID PRN #30 tablet 04/30/22 Ondansetron Odt [Zofran ODT] 4 mg PO Q8HR PRN #12 tab 04/30/22 Acetaminophen Tab [Tylenol] 650 mg PO Q6HR PRN tab 05/17/22 Apixaban [Eliquis] 5 mg PO BID 05/29/22 Spironolactone [Aldactone] 50 mg PO DAILY 06/11/22 busPIRone HCl [Buspar] 5 mg PO BID 06/11/22 Topiramate [Topamax] 150 mg PO BID 90 Days #180 tab 06/12/22 Bumetanide [BUMEX] 1 mg PO HS 06/21/22 Diclofenac Sodium Gel [Voltaren Gel] 4 gm TOPICAL QID PRN 06/21/22 Bumetanide [BUMEX] 2 mg PO DAILY 06/24/22 Controlled Substance Measures - Controlled Substance Measures Is patient prescribed a controlled substance at discharge?: No
[2022-07-21] MEDS: HYDROcodone/APAP 7.5-325MG 1 EACH TAB PO PRN (15:25)
[2022-07-21] MEDS: DICYCLOMINE 20 MG TAB PO PRN (15:27)
[2022-07-21 16:59] LABS: Glucose,Whole Blood 160 mg/dL (70-110)
[2022-07-21 20:10] LABS: Glucose,Whole Blood 133 mg/dL (70-110)
[2022-07-21] MEDS: ZONISAMIDE 100 MG CAP PO SCH (20:41)
[2022-07-21] MEDS: TOPIRAMATE 25 MG TAB PO SCH (20:47)
[2022-07-21] MEDS: ATORVASTATIN 40 MG TAB PO SCH (20:47)
[2022-07-21] MEDS: FLUCONAZOLE 150 MG TAB PO SCH (20:48)
--- NOTE | 2022-07-21 21:01 | P.PN ---
Subjective Progress Note Date: 07/21/22 Principal diagnosis: Fever Patient is a 57-year-old female with a past medical history significant for seizure disorder PE and renal insufficiency patient was admitted to the hospital with low potassium of 2.5, patient did have a fever that prompted his infectious disease consultation. On today's evaluation that is 07/21/2022, patient is afebrile this morning, the patient denies having any chest pain shortness with occasional dry cough some nausea but no vomiting no abdominal pain or diarrhea Objective - Vital Signs Vital signs: Vital Signs Temp 98.4 F 07/21/22 12:00 Pulse 71 07/21/22 12:00 Resp 16 07/21/22 12:00 BP 122/82 07/21/22 12:00 Pulse Ox 96 07/21/22 12:00 FiO2 Intake & Output 07/20/22 07/21/22 07/21/22 18:59 06:59 18:59 Intake Total 240 Balance 240 Intake: Oral 240 Other: # Voids 2 1 1 - Exam GENERAL DESCRIPTION: Middle-aged female lying in bed in no distress RESPIRATORY SYSTEM: Unlabored breathing , decreased breath sounds at bases HEART: S1 S2 regular rate and rhythm , ABDOMEN: Soft , no tenderness EXTREMITIES: No edema feet - Labs CBC & Chem 7: 07/21/22 08:33 07/21/22 07:49 Labs: Abnormal Lab Results - Last 24 Hours (Table) 07/21/22 07/21/22 Range/Units 07:49 07:49 BUN 29 H (7-17) mg/dL Creatinine 1.55 H (0.52-1.04) mg/dL Magnesium 2.5 H (1.6-2.3) mg/dL Microbiology - Last 24 Hours (Table) 07/19/22 17:52 Blood Culture - Preliminary Blood No Growth after 24 hours Assessment and Plan (1) Fever Current Visit: Yes Status: Acute Code(s): R50.9 - FEVER, UNSPECIFIED SNOMED Code(s): 767859467 Plan: 1patient with a fever last night and this patient admission to the hospital was for a low potassium patient currently did have mild respiratory symptoms mostly URI with concern for possible viral syndrome as the patient did have a normal white count, patient abdomen was soft on clinical examination and no evidence of any cellulitis. 2patient with multiple antibiotic allergies that would limit the number of antibiotics safe to use. 3 blood cultures currently pending CRP mildly elevated but normal procalcitonin , UA negative chest x-ray reported negative for pneumonia, patient did have a CT of abdominal pelvis did not show any acute abnormality 4patient to continue with empiric Rocephin while waiting for the culture finalized Time with Patient: Less than 30
[2022-07-21] MEDS: HYDROCORTISONE 10 MG TAB PO SCH (22:16)
--- NOTE | 2022-07-22 03:06 | PN ---
PROGRESS NOTE SUBJECTIVE: This is a 57-year-old white female with seizure disorder. Lumbar spinal fluid may have to be removed for atypical fever for neurology, going to get injections for headaches. Anesthesia has been consulted for that. Eliquis was stopped, Lovenox for bridge, cut Cortef in half as per patient request. OBJECTIVE: CARDIOVASCULAR: S1, S2. LUNGS: Clear. GI: Soft. HEMATOLOGY: Negative Homans signs. VITAL SIGNS: Blood pressure 119/85, temp 98.8, pulse 70, respiratory rate 16 to 18, 96% on room air. CARDIOVASCULAR: S1, S2. LUNGS: Clear. GI: Soft. HEMATOLOGY: Negative for Homans. ASSESSMENT AND PLAN: Acute kidney injury, hypokalemia, chronic. Possibly Topamax is the cause, going to try to get her off the Topamax. Vital signs reviewed. Hypokalemia, likely from diuresis. History of pyoderma gangrenosum, lupus, tricuspid valve repair, hypopituitarism, acute kidney injury secondary to diuresis, chronic kidney disease stage IIIA, volume overload, chronic diastolic heart failure. PROGNOSIS: Guarded. Order as above. MMODL / IJN: [id number] /
[2022-07-22] MEDS: HYDROmorphone 1 MG/ML 1 ML SYRINGE IVP PRN ×5 (03:34→20:38)
[2022-07-22 06:08] LABS: Glucose,Whole Blood 106 mg/dL (70-110)
[2022-07-22] MEDS: diphenhydrAMINE 50 MG/ML 1 ML VIAL IVP PRN ×3 (06:09→18:35)
[2022-07-22] MEDS: INSULIN ASPART (NovoLOG) 100 UNIT/ML VIAL SQ SCH ×4 (07:02→20:45)
[2022-07-22] MEDS: HYDROCORTISONE 10 MG TAB PO SCH ×2 (08:57→20:43)
[2022-07-22] MEDS: LIDOCAINE 5% PATCH TOPICAL SCH (08:58)
[2022-07-22] MEDS: ENOXAPARIN 30 MG/0.3 ML SYRINGE SQ SCH (08:58)
[2022-07-22] MEDS: ZONISAMIDE 100 MG CAP PO SCH ×2 (08:58→20:45)
[2022-07-22] MEDS: FLUDROCORTISONE 0.1 MG TAB PO SCH (08:59)
[2022-07-22] MEDS: TOPIRAMATE 25 MG TAB PO SCH ×2 (08:59→20:42)
[2022-07-22] MEDS: busPIRone HCl 5 MG TAB PO SCH ×2 (08:59→20:42)
[2022-07-22] MEDS: BUMETANIDE 1 MG TAB PO SCH ×2 (08:59→20:51)
[2022-07-22] MEDS: SPIRONOLACTONE 25 MG TAB PO SCH ×2 (09:00→20:51)
[2022-07-22] MEDS: GABAPENTIN 300 MG CAP PO SCH ×3 (09:00→20:50)
[2022-07-22] MEDS: PANTOPRAZOLE 40 MG TABLET PO SCH (09:00)
[2022-07-22] MEDS: SERTRALINE 100 MG TAB PO SCH (09:01)
--- NOTE | 2022-07-22 10:12 | P.PN ---
Subjective Progress Note Date: 07/21/22 Patient was seen for a follow-up. Patient apparently had a seizure type spell. Patient at present is groggy, DDS. Patient saying that roommate brought berries from the tree and the smell triggered seizure. She admits to having headache 01/09. She then started talking something about the nurse Marvin and Yasmany. Patient not able to provide any history. Patient says that she has ongoing headache for a few weeks. She wants Benadryl. Patient was still oriented, knew it was June 2022 and that she is in [facility]. Patient not able to provide history, checked again on her an hour later, and she was slightly more coherent. She claims that I just woke her up and she was in a dream previously. Objective - Vital Signs Vital signs: Vital Signs Temp 97.9 F 07/21/22 08:00 Pulse 82 07/21/22 08:00 Resp 16 07/21/22 08:00 BP 132/95 07/21/22 08:00 Pulse Ox 95 07/21/22 08:00 FiO2 Intake & Output 07/20/22 07/21/22 07/21/22 18:59 06:59 18:59 Intake Total 240 Balance 240 Intake: Oral 240 Other: # Voids 2 1 1 - Exam Patient is delirious, slightly encephalopathic, somnolent. Patient knows it is June 2022 and that she is in [facility]. Patient strength is equal. Face is symmetric. Pupils are equal, visual pierce full. - Labs CBC & Chem 7: 07/21/22 08:33 07/21/22 07:49 Labs: Abnormal Lab Results - Last 24 Hours (Table) 07/21/22 07/21/22 Range/Units 07:49 07:49 BUN 29 H (7-17) mg/dL Creatinine 1.55 H (0.52-1.04) mg/dL Magnesium 2.5 H (1.6-2.3) mg/dL Microbiology - Last 24 Hours (Table) 07/19/22 17:52 Blood Culture - Preliminary Blood No Growth after 24 hours Assessment and Plan Assessment: * Breakthrough seizure, likely due to hypokalemia, and excessive ongoing psychosocial stresses. * Altered mental status, headache, unclear cause. Patient had fever, which now has resolved. No obvious source identified. * Posttraumatic migraines. Patient claims she has several migraines since her TBI in December 2007. Her migraines respond to Botox. * History of nonepileptic seizures * History of multiple ongoing psychosocial stresses. 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 * History of pyoderma gangrenosum * Chronic renal insufficiency Plan: * Patient has altered mental status, complaining of severe headache. Discussed with infectious disease and primary physician. Agreed for lumbar puncture. No obvious source of fever identified so far. CT of abdomen and pelvis, chest x-ray and UA are all normal. * Patient has recurrent episodes of hypokalemia. Topamax has weak carbonic anhydrase inhibitor activity, which can be associated with hypokalemia. We will switch from Topamax to Zonegran. We will decrease Topamax further down to 50 mg twice a day and increase Zonegran to 100 mg twice a day. If tolerated well, we will rapidly taper off Topamax and maintain her on Zonegran 100 mg twice a day. Her seizure was likely due to excessive stress versus hypokalemia. * Treatment of hypokalemia as per IM. * Patient requesting consultation with pain management for occipital nerve block. Also lumbar puncture. Discussed with primary physician. We will hold Eliquis for now. * Patient is scheduled for her Botox injection in July 2022. * Patient does not have a neurologist, as her Botox is given by an ict account manager at [facility] Dr Aguirre. * Continue Ubrelvy 100 mg tablets as needed for migraines. Patient was recommended to try [facility] ODT as an outpatient. She has received Botox on 05/24/2022, next dose due in July. * CT sinuses from 03/18/2022 is normal. No significant mucosal sinus disease. The ostiomeatal units, frontonasal and sphenoethmoidal recesses are clear. * Carotid Doppler from 09/25/2021 is normal. Antegrade flow in both vertebral arteries.
[2022-07-22] MEDS: NON FORMULARY DRUG (Ubrogepant [Ubrelvy] 100 MG Tablet) PO PRN (10:45)
[2022-07-22 11:42] LABS: Glucose,Whole Blood 88 mg/dL (70-110)
--- NOTE | 2022-07-22 13:06 | P.PN ---
Subjective Patient is seen in follow-up for acute kidney injury on chronic kidney disease and hypokalemia. Oral intake fair. Edema improved. No vomiting or diarrhea. Renal function worsened from diuresis. Hemodynamically stable. No active complaints. Vital signs are stable. General: No acute distress. HEENT: Head exam is unremarkable. LUNGS: No audible rhonchi or wheezes. HEART: Rate and Rhythm are regular. ABDOMEN: Obese. Nontender. EXTREMITITES: No edema in lower extremities. Objective - Vital Signs Vital signs: Vital Signs Temp 98.5 F 07/22/22 08:00 Pulse 69 07/22/22 12:00 Resp 18 07/22/22 12:00 BP 110/71 07/22/22 12:00 Pulse Ox 96 07/22/22 12:00 FiO2 Intake & Output 07/21/22 07/22/22 07/22/22 18:59 06:59 18:59 Intake Total 640 50 236 Output Total 300 Balance 640 -250 236 Weight 69.853 kg Intake: Intake, IV Titration 50 Amount cefTRIAXone 1 gm In 50 Sodium Chloride 0.9% 50 ml @ 100 mls/hr IVPB Q24H [facility] Rx#:[id number] Oral 640 236 Output: Urine 300 Other: # Voids 2 3 # Bowel Movements 1 - Labs CBC & Chem 7: 07/21/22 08:33 07/21/22 07:49 Labs: Abnormal Lab Results - Last 24 Hours (Table) 07/21/22 07/21/22 Range/Units 16:54 20:07 POC Glucose (mg/dL) 160 H 133 H (70-110) mg/dL Microbiology - Last 24 Hours (Table) 07/19/22 17:52 Blood Culture - Preliminary Blood No Growth after 48 hours Assessment and Plan Plan: Assessment: 1. Acute kidney injury mostly prerenal secondary to diuresis. Creatinine peaked at 1.6 at this admission and was down to 1.11 - 1.55 yesterday from diuresis. UA benign. No hydronephrosis noted on kidney ultrasound done April 2022. Right kidney atrophic. 2. Chronic kidney disease stage IIIa with baseline creatinine 1.2-1.5 secondary to solitary functioning left kidney and cardiorenal syndrome. 3. Volume overload. Improving. 4. Chronic diastolic CHF. 5. Hypokalemia likely from diuresis. Magnesium not low. Urine potassium has been on the either normal or on higher side in the past. Also on steroids which would induce renal potassium losses. Genetic testing has been discussed with the patient outpatient but she is yet to follow up. Stable. 6. History of pyoderma gangrenosum. 7. History of tricuspid valve repair. 8. 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 Maintained on Cortef and Florinef. Plan: Maintain current diuretics. 20 mg IV Lasix once this afternoon. Continue to monitor renal function and urine output. Advised to follow up outpatient 1 week post discharge. Has also been advised to follow-up with endocrinology outpatient.
[2022-07-22] MEDS ORDERED: FUROSEMIDE 10 MG/ML 2 ML VIAL IV ONE (15:00)
--- NOTE | 2022-07-22 15:14 | P.PN ---
Subjective Progress Note Date: 07/22/22 Principal diagnosis: Fever Patient is a 57-year-old female with a past medical history significant for seizure disorder PE and renal insufficiency patient was admitted to the hospital with low potassium of 2.5, patient did have a fever that prompted his infectious disease consultation. On today's evaluation that is 07/22/2022, patient remains to be afebrile, the patient denies chest pain , complaining of some shortness breath with occasional dry cough some nausea but no vomiting no abdominal pain or diarrhea Objective - Vital Signs Vital signs: Vital Signs Temp 98.5 F 07/22/22 08:00 Pulse 69 07/22/22 12:00 Resp 18 07/22/22 12:00 BP 110/71 07/22/22 12:00 Pulse Ox 96 07/22/22 12:00 FiO2 Intake & Output 07/21/22 07/22/22 07/22/22 18:59 06:59 18:59 Intake Total 640 50 776 Output Total 300 Balance 640 -250 776 Weight 69.853 kg Intake: Intake, IV Titration 50 Amount cefTRIAXone 1 gm In 50 Sodium Chloride 0.9% 50 ml @ 100 mls/hr IVPB Q24H [facility] Rx#:[id number] Oral 640 776 Output: Urine 300 Other: # Voids 2 3 # Bowel Movements 1 - Exam GENERAL DESCRIPTION: Middle-aged female lying in bed in no distress RESPIRATORY SYSTEM: Unlabored breathing , decreased breath sounds at bases HEART: S1 S2 regular rate and rhythm , ABDOMEN: Soft , no tenderness EXTREMITIES: No edema feet - Labs CBC & Chem 7: 07/21/22 08:33 07/21/22 07:49 Labs: Abnormal Lab Results - Last 24 Hours (Table) 07/21/22 07/21/22 Range/Units 16:54 20:07 POC Glucose (mg/dL) 160 H 133 H (70-110) mg/dL Microbiology - Last 24 Hours (Table) 07/19/22 17:52 Blood Culture - Preliminary Blood No Growth after 48 hours Assessment and Plan (1) Fever Current Visit: Yes Status: Acute Code(s): R50.9 - FEVER, UNSPECIFIED SNOM ED Code(s): 540992559 Plan: 1patient with a fever last night and this patient admission to the hospital was for a low potassium patient currently did have mild respiratory symptoms mostly URI with concern for possible viral syndrome as the patient did have a normal white count, patient abdomen was soft on clinical examination and no evidence of any cellulitis. 2patient with multiple antibiotic allergies that would limit the number of antibiotics safe to use. 3 blood cultures currently pending CRP mildly elevated but normal procalcitonin , UA negative chest x-ray reported negative for pneumonia, patient did have a CT of abdominal pelvis did not show any acute abnormality 4patient currently being treated with empiric Rocephin however if remains to be afebrile culture negative to discontinue Rocephin Time with Patient: Less than 30
[2022-07-22 16:23] LABS: Glucose,Whole Blood 110 mg/dL (70-110)
[2022-07-22 18:56] LABS: Basophils # (A) 0.1 k/uL (0-0.2); Basophils % (A) 1 %; Eosinophils # (A) 0.2 k/uL (0-0.7); Eosinophils % (A) 2 %; HCT 42.8 % (34.0-46.0); HGB 14.5 gm/dL (11.4-16.0); Lymphocytes # (A) 1.2 k/uL (1.0-4.8); Lymphocytes % (A) 13 %; MCH 31.8 pg (25.0-35.0); MCHC 33.8 g/dL (31.0-37.0); MCV 94.2 fL (80.0-100.0); Mean Platelet Volume 8.2; Monocytes # (A) 0.5 k/uL (0-1.0); Monocytes % (A) 6 %; Neutrophils # (A) 6.9 k/uL (1.3-7.7); Neutrophils % (A) 75 %; Platelet Count 256 k/uL (150-450); Potassium 3.9 mmol/L (3.5-5.1); RBC 4.54 m/uL (3.80-5.40); RDW 13.8 % (11.5-15.5); WBC 9.2 k/uL (3.8-10.6)
[2022-07-22 18:57] LABS: Albumin 4.5 g/dL (3.5-5.0); Calcium 9.1 mg/dL (8.4-10.2); Total Bilirubin 0.4 mg/dL (0.2-1.3); Total Protein 7.3 g/dL (6.3-8.2)
[2022-07-22 19:56] LABS: Glucose,Whole Blood 144 mg/dL (70-110)
[2022-07-22] MEDS: ATORVASTATIN 40 MG TAB PO SCH (20:42)
[2022-07-22] MEDS: FLUCONAZOLE 150 MG TAB PO SCH (20:44)
[2022-07-23] MEDS: diphenhydrAMINE 50 MG/ML 1 ML VIAL IVP PRN ×3 (05:12→18:07)
[2022-07-23] MEDS: HYDROmorphone 0.5 MG/0.5 ML SYRINGE IVP PRN (05:12)
[2022-07-23 06:12] LABS: Glucose,Whole Blood 83 mg/dL (70-110)
[2022-07-23] MEDS: INSULIN ASPART (NovoLOG) 100 UNIT/ML VIAL SQ SCH ×4 (06:22→20:39)
[2022-07-23] MEDS: ENOXAPARIN 30 MG/0.3 ML SYRINGE SQ SCH (08:04)
[2022-07-23] MEDS: HYDROmorphone 1 MG/ML 1 ML SYRINGE IVP PRN ×5 (08:04→21:27)
[2022-07-23] MEDS: busPIRone HCl 5 MG TAB PO SCH ×2 (08:05→21:19)
[2022-07-23] MEDS: TOPIRAMATE 25 MG TAB PO SCH (08:05)
[2022-07-23] MEDS: DICLOFENAC SODIUM GEL 100 GM TUBE TOPICAL PRN (08:05)
[2022-07-23] MEDS: SPIRONOLACTONE 25 MG TAB PO SCH ×2 (08:05→21:19)
[2022-07-23] MEDS: SERTRALINE 100 MG TAB PO SCH (08:05)
[2022-07-23] MEDS: PANTOPRAZOLE 40 MG TABLET PO SCH (08:05)
[2022-07-23] MEDS: BUMETANIDE 1 MG TAB PO SCH ×2 (08:05→21:28)
[2022-07-23] MEDS: LIDOCAINE 5% PATCH TOPICAL SCH (08:06)
[2022-07-23] MEDS: GABAPENTIN 300 MG CAP PO SCH ×3 (08:06→21:19)
[2022-07-23] MEDS: HYDROCORTISONE 10 MG TAB PO SCH ×2 (08:06→21:31)
[2022-07-23] MEDS: FLUDROCORTISONE 0.1 MG TAB PO SCH (08:06)
[2022-07-23] MEDS: ZONISAMIDE 100 MG CAP PO SCH ×2 (08:07→21:31)
[2022-07-23] MEDS: HYDROcodone/APAP 7.5-325MG 1 EACH TAB PO PRN (09:15)
--- NOTE | 2022-07-23 09:27 | P.PN ---
Subjective Progress Note Date: 07/22/22 Patient was seen for a follow-up. Patient is much more alert and awake. Patient is doing better. She is fully alert and awake. Patient states her headache is improved 7/10, which is her usual headache. She is interested in occipital nerve block, but does not want lumbar puncture anymore. Telemetry monitoring showing sinus rhythm Objective - Vital Signs Vital signs: Vital Signs Temp 98.2 F 07/23/22 04:00 Pulse 74 07/23/22 04:00 Resp 19 07/23/22 04:00 BP 100/69 07/23/22 04:00 Pulse Ox 98 07/23/22 04:00 FiO2 Intake & Output 07/22/22 07/23/22 07/23/22 18:59 06:59 18:59 Intake Total 1316 360 Output Total 800 Balance 1316 -800 360 Intake: Oral 1316 360 Output: Urine 800 Other: # Voids 4 # Bowel Movements 1 - Exam Patient is alert and awake, oriented to time place and person. Speech and language functions are normal. Muscle strength is normal. No ataxia. Sensations are equal. - Labs CBC & Chem 7: 07/22/22 18:19 07/22/22 18:19 Labs: Abnormal Lab Results - Last 24 Hours (Table) 07/22/22 07/22/22 Range/Units 18:19 19:54 BUN 29 H (7-17) mg/dL Creatinine 1.46 H (0.52-1.04) mg/dL Glucose 123 H (74-99) mg/dL POC Glucose (mg/dL) 144 H (70-110) mg/dL Microbiology - Last 24 Hours (Table) 07/19/22 17:52 Blood Culture - Preliminary Blood No Growth after 72 hours Assessment and Plan Assessment: * Breakthrough seizure, likely due to hypokalemia, and excessive ongoing psychosocial stresses. * Altered mental status, headache, unclear cause. Patient had transient fever, which now has resolved. No obvious source identified. Patient's mentation is back to normal. * Posttraumatic migraines. Patient claims she has several migraines since her TBI in December 2007. Her migraines respond to Botox. * History of nonepileptic seizures * History of multiple ongoing psychosocial stresses. 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 * History of pyoderma gangrenosum * Chronic renal insufficiency Plan: * Patient's mentation is back to normal. Patient's headache is back to baseline. She has no more temperature. We will cancel lumbar puncture. Patient is still interested in undergoing occipital nerve block. * No obvious source of fever identified so far. CT of abdomen and pelvis, chest x-ray and UA are all normal. * Patient has recurrent episodes of hypokalemia. Topamax has weak carbonic anhydrase inhibitor activity, which can be associated with hypokalemia. We will switch from Topamax to Zonegran. We will decrease Topamax further down to 50 mg twice a day and increase Zonegran to 100 mg twice a day. If tolerated well, we will rapidly taper off Topamax and maintain her on Zonegran 100 mg twice a day. Her seizure was likely due to excessive stress versus hypokalemia. * Treatment of hypokalemia as per IM. * Patient requesting consultation with pain management for occipital nerve block. Discussed with primary physician. We will hold Eliquis for now. * Patient is scheduled for her Botox injection in July 2022. * Patient does not have a neurologist, as her Botox is given by an ladies attendant at [facility] Dr Aguirre. * Continue Ubrelvy 100 mg tablets as needed for migraines. Patient was recommended to try [facility] ODT as an outpatient. She has received Botox on 05/24/2022, next dose due in July. * CT sinuses from 03/18/2022 is normal. No significant mucosal sinus disease. The ostiomeatal units, frontonasal and sphenoethmoidal recesses are clear. * Carotid Doppler from 09/25/2021 is normal. Antegrade flow in both vertebral arteries.
[2022-07-23] MEDS: LORazepam 2 MG/ML INJ IV PRN (09:40)
[2022-07-23] MEDS: NON FORMULARY DRUG (Ubrogepant [Ubrelvy] 100 MG Tablet) PO PRN (09:52)
[2022-07-23 12:18] LABS: Glucose,Whole Blood 112 mg/dL (70-110)
--- NOTE | 2022-07-23 12:18 | P.PN ---
Subjective Patient is seen in follow-up for acute kidney injury on chronic kidney disease and hypokalemia. Oral intake fair. Edema improved. No vomiting or diarrhea. Renal function stable. Hemodynamically stable. Complains of migraine. Vital signs are stable. General: No acute distress. HEENT: Head exam is unremarkable. LUNGS: No audible rhonchi or wheezes. HEART: Rate and Rhythm are regular. ABDOMEN: Obese. Nontender. EXTREMITITES: No edema in lower extremities. Objective - Vital Signs Vital signs: Vital Signs Temp 98.4 F 07/23/22 07:58 Pulse 74 07/23/22 11:11 Resp 20 07/23/22 11:11 BP 99/61 07/23/22 11:11 Pulse Ox 99 07/23/22 11:11 FiO2 Intake & Output 07/22/22 07/23/22 07/23/22 18:59 06:59 18:59 Intake Total 1316 360 Output Total 800 Balance 1316 -800 360 Intake: Oral 1316 360 Output: Urine 800 Other: Voiding Method Toilet # Voids 4 2 # Bowel Movements 1 - Labs CBC & Chem 7: 07/22/22 18:19 07/22/22 18:19 Labs: Abnormal Lab Results - Last 24 Hours (Table) 07/22/22 07/22/22 Range/Units 18:19 19:54 BUN 29 H (7-17) mg/dL Creatinine 1.46 H (0.52-1.04) mg/dL Glucose 123 H (74-99) mg/dL POC Glucose (mg/dL) 144 H (70-110) mg/dL Microbiology - Last 24 Hours (Table) 07/19/22 17:52 Blood Culture - Preliminary Blood No Growth after 72 hours Assessment and Plan Plan: Assessment: 1. Acute kidney injury mostly prerenal secondary to diuresis. Creatinine peaked at 1.6 at this admission and was down to 1.11 - 1.46 yesterday. UA benign. No hydronephrosis noted on kidney ultrasound done April 2022. Right kidney atrophic. 2. Chronic kidney disease stage IIIa with baseline creatinine 1.2-1.5 secondary to solitary functioning left kidney and cardiorenal syndrome. 3. Volume overload. Improving. 4. Chronic diastolic CHF. 5. Hypokalemia likely from diuresis. Magnesium not low. Urine potassium has been on the either normal or on higher side in the past. Also on steroids which would induce renal potassium losses. Genetic testing has been discussed with the patient outpatient but she is yet to follow up. Stable. Hasn't required potassium supplementation last 3 days. 6. History of pyoderma gangrenosum. 7. History of tricuspid valve repair. 8. 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 Maintained on Cortef and Florinef. Plan: Maintain current diuretics. Continue to monitor renal function and urine output. Advised to follow up outpatient 1 week post discharge. Has also been advised to follow-up with endocrinology outpatient.
--- NOTE | 2022-07-23 15:33 | P.PN ---
Subjective Progress Note Date: 07/23/22 Principal diagnosis: Fever Patient is a 57-year-old female with a past medical history significant for seizure disorder PE and renal insufficiency patient was admitted to the hospital with low potassium of 2.5, patient did have a fever that prompted his infectious disease consultation. On today's evaluation that is 07/23/2022, patient denies any fever or any chills, the patient denies chest pain , patient is breathing comfortably on room air, no nausea no vomiting no abdominal pain or diarrhea, swelling to the arms has decreased Objective - Vital Signs Vital signs: Vital Signs Temp 98.4 F 07/23/22 07:58 Pulse 74 07/23/22 11:11 Resp 20 07/23/22 11:11 BP 99/61 07/23/22 11:11 Pulse Ox 99 07/23/22 11:11 FiO2 Intake & Output 07/22/22 07/23/22 07/23/22 18:59 06:59 18:59 Intake Total 1316 360 Output Total 800 Balance 1316 -800 360 Intake: Oral 1316 360 Output: Urine 800 Other: Voiding Method Toilet # Voids 4 2 # Bowel Movements 1 - Exam GENERAL DESCRIPTION: Middle-aged female lying in bed in no distress RESPIRATORY SYSTEM: Unlabored breathing , decreased breath sounds at bases HEART: S1 S2 regular rate and rhythm , ABDOMEN: Soft , no tenderness EXTREMITIES: No edema feet - Labs CBC & Chem 7: 07/22/22 18:19 07/22/22 18:19 Labs: Abnormal Lab Results - Last 24 Hours (Table) 07/22/22 07/22/22 07/23/22 Range/Units 18:19 19:54 12:13 BUN 29 H (7-17) mg/dL Creatinine 1.46 H (0.52-1.04) mg/dL Glucose 123 H (74-99) mg/dL POC Glucose (mg/dL) 144 H 112 H (70-110) mg/dL Microbiology - Last 24 Hours (Table) 07/19/22 17:52 Blood Culture - Preliminary Blood No Growth after 72 hours Assessment and Plan (1) Fever Current Visit: Yes Status: Acute Code(s): R50.9 - FEVER, UNSPECIFIED SNOMED Code(s): 196761541 Plan: 1patient with a fever last night and this patient admission to the hospital was for a low potassium patient currently did have mild respiratory symptoms mostly URI with concern for possible viral syndrome as the patient did have a normal white count, patient abdomen was soft on clinical examination and no evidence of any cellulitis. 2patient with multiple antibiotic allergies that would limit the number of antibiotics safe to use. 3 blood cultures has been negative CRP mildly elevated but normal procalcitonin , UA negative chest x-ray reported negative for pneumonia, patient did have a CT of abdominal pelvis did not show any acute abnormality 4patient did have a negative workup we will go ahead and discontinue Rocephin and monitor the patient closely off antibiotic therapy, this was explained to the patient in layman terms Time with Patient: Less than 30
[2022-07-23 17:15] LABS: Glucose,Whole Blood 89 mg/dL (70-110)
[2022-07-23] MEDS: ONDANSETRON ODT 4 MG TAB PO PRN (18:12)
[2022-07-23 20:17] LABS: Glucose,Whole Blood 115 mg/dL (70-110)
[2022-07-23] MEDS: DICYCLOMINE 20 MG TAB PO PRN (21:18)
[2022-07-23] MEDS: ATORVASTATIN 40 MG TAB PO SCH (21:19)
[2022-07-23] MEDS: FLUCONAZOLE 150 MG TAB PO SCH (21:31)
[2022-07-23 23:15] LABS: HGB 12.6 gm/dL (11.4-16.0); MCH 31.3 pg (25.0-35.0); MCHC 33.2 g/dL (31.0-37.0); MCV 94.1 fL (80.0-100.0); Mean Platelet Volume 10.4; Platelet Count 252 k/uL (150-450); RBC 4.04 m/uL (3.80-5.40); RDW 13.7 % (11.5-15.5); WBC 7.5 k/uL (3.8-10.6)
[2022-07-24] MEDS: HYDROmorphone 1 MG/ML 1 ML SYRINGE IVP PRN ×3 (02:23→20:38)
[2022-07-24] MEDS: diphenhydrAMINE 50 MG/ML 1 ML VIAL IVP PRN ×4 (02:23→20:39)
--- NOTE | 2022-07-24 03:01 | PN ---
PROGRESS NOTE DATE OF SERVICE: 07/22/2022 SUBJECTIVE: This is a 57-year-old white female with seizures, fever of unclear etiology. The patient thinks she has a lupus-type fever. Discussed with Neurology, possibly a spinal tap. She wants to have occipital injections prior to discharge. Esmequis was placed on hold with Lovenox given. Her potassium when she came in with hypokalemia has been reversed. She is complaining of terrible migraines. OBJECTIVE: CARDIOVASCULAR: S1, S2. LUNGS: Clear. GI: Soft. HEMATOLOGY: Negative Homans. PLAN: Occipital injections. Possible spinal tap. Monitor for fevers. Steroids have been lowered per her recommendations for cortisol deficiency as she thinks these are triggering her elevated sugars and her seizures. Prognosis is guarded. MMODL / IJN: [id number] /
[2022-07-24 05:33] LABS: Albumin 3.5 g/dL (3.5-5.0); Calcium 8.7 mg/dL (8.4-10.2); Potassium 4.4 mmol/L (3.5-5.1); Total Bilirubin 0.2 mg/dL (0.2-1.3); Total Protein 5.8 g/dL (6.3-8.2)
[2022-07-24 06:32] LABS: Glucose,Whole Blood 106 mg/dL (70-110)
[2022-07-24] MEDS: INSULIN ASPART (NovoLOG) 100 UNIT/ML VIAL SQ SCH ×4 (06:32→21:30)
[2022-07-24] MEDS: SPIRONOLACTONE 25 MG TAB PO SCH (08:57)
[2022-07-24] MEDS: GABAPENTIN 300 MG CAP PO SCH ×2 (08:57→17:19)
[2022-07-24] MEDS: PANTOPRAZOLE 40 MG TABLET PO SCH (08:57)
[2022-07-24] MEDS: busPIRone HCl 5 MG TAB PO SCH ×2 (08:57→20:36)
[2022-07-24] MEDS: BUMETANIDE 1 MG TAB PO SCH ×2 (08:57→20:37)
[2022-07-24] MEDS: SERTRALINE 100 MG TAB PO SCH (08:57)
[2022-07-24] MEDS: ENOXAPARIN 40 MG/0.4 ML SYRINGE SQ SCH (08:58)
[2022-07-24] MEDS: LIDOCAINE 5% PATCH TOPICAL SCH (08:58)
[2022-07-24] MEDS: HYDROCORTISONE 10 MG TAB PO SCH ×2 (08:58→20:36)
[2022-07-24] MEDS: ZONISAMIDE 100 MG CAP PO SCH ×2 (08:58→20:36)
[2022-07-24] MEDS: FLUDROCORTISONE 0.1 MG TAB PO SCH (08:58)
[2022-07-24] MEDS ORDERED: TOPIRAMATE 25 MG TAB PO SCH (09:00)
[2022-07-24] MEDS: HYDROmorphone 0.5 MG/0.5 ML SYRINGE IVP PRN ×3 (10:30→16:30)
[2022-07-24 11:51] LABS: Glucose,Whole Blood 99 mg/dL (70-110)
--- NOTE | 2022-07-24 12:41 | P.PN ---
Subjective Patient is seen in follow-up for acute kidney injury on chronic kidney disease and hypokalemia. Oral intake fair. Currently being diuresed. Edema improved. No vomiting or diarrhea. Renal function stable. Hemodynamically stable. No complaints today. Objective - Vital Signs Vital signs: Vital Signs Temp 97.9 F 07/24/22 08:00 Pulse 71 07/24/22 08:00 Resp 18 07/24/22 08:00 BP 107/66 07/24/22 08:00 Pulse Ox 94 L 07/24/22 08:00 FiO2 Intake & Output 07/23/22 07/24/22 07/24/22 18:59 06:59 18:59 Intake Total 900 118 Balance 900 118 Intake: Oral 900 118 Other: Voiding Method Toilet Toilet # Voids 2 2 - Exam Patient is awake, comfortable, no acute distress Alert oriented 3 Examination of the heart S1 and S2 Examination of the lungs bilateral breath sounds are heard Abdomen is soft nontender Examination of lower extremities shows edema 1+ bilaterally [employer] exam grossly intact - Labs CBC & Chem 7: 07/23/22 19:00 07/24/22 04:47 Labs: Abnormal Lab Results - Last 24 Hours (Table) 07/23/22 07/24/22 Range/Units 20:15 04:47 BUN 26 H (7-17) mg/dL Creatinine 1.62 H (0.52-1.04) mg/dL Glucose 102 H (74-99) mg/dL POC Glucose (mg/dL) 115 H (70-110) mg/dL Total Protein 5.8 L (6.3-8.2) g/dL Microbiology - Last 24 Hours (Table) 07/19/22 17:52 Blood Culture - Preliminary Blood No Growth after 96 hours Assessment and Plan Assessment: 1. Acute kidney injury mostly prerenal secondary to diuresis. Creatinine at 1.6 UA benign. No hydronephrosis noted on kidney ultrasound done April 2022. Right kidney atrophic. 2. Chronic kidney disease stage IIIa with baseline creatinine 1.2-1.5 secondary to solitary functioning left kidney and cardiorenal syndrome. 3. Volume overload. Improving. 4. Chronic diastolic CHF. 5. Hypokalemia likely from diuresis. Magnesium not low. Urine potassium has been on the either normal or on higher side in the past. Also on steroids which would induce renal potassium losses. Genetic testing has been discussed with the patient outpatient but she is yet to follow up. Stable. Hasn't required potassium supplementation last 3 days. 6. History of pyoderma gangrenosum. 7. History of tricuspid valve repair. 8. 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 Maintained on Cortef and Florinef. Plan: Continue current dose of diuretics Follow-up as outpatient Repeat labs in 4-5 days post discharge
--- NOTE | 2022-07-24 12:53 | PN ---
PROGRESS NOTE SUBJECTIVE: This is a 57-year-old white female. We decided not to do a lumbar puncture, but she is still having seizures and she needs occipital injections, hopefully Tuesday, she can get this prior to going home. She is still getting headaches every day. She is unable to control these. Waiting for epidural occipital injections on Tuesday hopefully. OBJECTIVE: VITAL SIGNS: Temperature 98.4, pulse 74, respiratory rate 18 to 20, blood pressure 190s over 60s, O2 99. CARDIOVASCULAR: S1, S2. GENERAL: Sitting comfortably in bed. LUNGS: Clear. GI: Soft. EXTREMITIES: No edema. LABORATORY DATA: BUN is 29, creatinine 1.46. Sugars in the mid to low 100s. ASSESSMENT: Fever, hypokalemia, possible leukocytosis secondary to fever. Multiple antibiotic allergies. Blood cultures were negative. CRP mildly elevated. Normal procalcitonin in UA. Chest x-ray is negative. CT abdomen pelvis is negative, negative workup. Antibiotics are off. Wait for occipital injections and neurology clearance for discharge home. Hopefully she gets occipital injections prior to going home. Otherwise, she will go home on Tuesday. MMODL / IJN: [id number] /
[2022-07-24] MEDS: ONDANSETRON ODT 4 MG TAB PO PRN (13:25)
--- NOTE | 2022-07-24 13:34 | P.PN ---
Subjective Progress Note Date: 07/23/22 Patient was seen for a follow-up. Patient states that she just woke up drenched in sweat. She had a seizure earlier today. She felt seizure coming on with tinnitus, tunnel vision. She blames it on bad migraine. The nurse reports that her left arm was rigid more than the right arm. Her left fingers were twitching. She had oral twitching following mouth and jaw. She was not responding and the episode lasted < 5 minutes. The nurse gave her Ativan, although it was not due at that time. Patient had earlier requested for Ativan per nurse report. Patient is much more alert and awake. Patient is doing better. She is fully alert and awake. Patient states her headache is improved 7/10, which is her usual headache. She is interested in occipital nerve block, but does not want lumbar puncture anymore. Patient states that she is scheduled for Botox injection on 08/16/2022. Objective - Vital Signs Vital signs: Vital Signs Temp 98.5 F 07/23/22 15:37 Pulse 71 07/23/22 15:37 Resp 16 07/23/22 15:37 BP 118/84 07/23/22 15:37 Pulse Ox 94 L 07/23/22 15:37 FiO2 Intake & Output 07/22/22 07/23/22 07/23/22 18:59 06:59 18:59 Intake Total 1316 900 Output Total 800 Balance 1316 -800 900 Intake: Oral 1316 900 Output: Urine 800 Other: Voiding Method Toilet # Voids 4 2 # Bowel Movements 1 - Exam Patient is alert and awake, oriented to time place and person. Speech and language functions are normal. Muscle strength is normal. No ataxia. Sensations are equal. - Labs CBC & Chem 7: 07/23/22 19:00 07/24/22 04:47 Labs: Abnormal Lab Results - Last 24 Hours (Table) 07/22/22 07/22/22 07/23/22 Range/Units 18:19 19:54 12:13 BUN 29 H (7-17) mg/dL Creatinine 1.46 H (0.52-1.04) mg/dL Glucose 123 H (74-99) mg/dL POC Glucose (mg/dL) 144 H 112 H (70-110) mg/dL Microbiology - Last 24 Hours (Table) 07/19/22 17:52 Blood Culture - Preliminary Blood No Growth after 72 hours Assessment and Plan Assessment: * Breakthrough seizure, likely due to hypokalemia, migraine and excessive ongoing psychosocial stresses. * Altered mental status resolved. Patient does have chronic daily headaches. Her fever has resolved. No evidence of meningitis. * Posttraumatic migraines. Patient claims she has several migraines since her TBI in December 2007. Her migraines respond to Botox. * History of nonepileptic seizures * History of multiple ongoing psychosocial stresses. 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 * History of pyoderma gangrenosum * Chronic renal insufficiency Plan: * Patient's mentation is back to normal. Patient's headache is back to baseline. She has no more temperature. We will cancel lumbar puncture. Patient is still interested in undergoing occipital nerve block. * No obvious source of fever identified so far. CT of abdomen and pelvis, chest x-ray and UA are all normal. * Patient has recurrent episodes of hypokalemia. Topamax has weak carbonic anhydrase inhibitor activity, which can be associated with hypokalemia. We will switch from Topamax to Zonegran. We will decrease Topamax further down to 50 mg once a day for 2 days and then stop Topamax. Patient is on Zonegran to 100 mg twice a day. Patient is very positive in continuing Zonegran. She wants to go off Topamax as soon as possible. * Treatment of hypokalemia as per IM. * Patient requesting consultation with pain management for occipital nerve block. Discussed with primary physician. We will hold Eliquis for now. * Patient is scheduled for her Botox injection on 08/16/2022. * Patient does not have a neurologist, as her Botox is given by an vault attendant at [facility] Dr Aguir[facility]. * Continue Ubrelvy 100 mg tablets as needed for migraines. Patient was recommended to try [facility] ODT as an outpatient. She has received Botox on 05/24/2022, next dose due in July. * CT sinuses from 03/18/2022 is normal. No significant mucosal sinus disease. The ostiomeatal units, frontonasal and sphenoethmoidal recesses are clear. * Carotid Doppler from 09/25/2021 is normal. Antegrade flow in both vertebral arteries.
--- NOTE | 2022-07-24 15:54 | P.PN ---
Subjective Progress Note Date: 07/24/22 Principal diagnosis: Fever Patient is a 57-year-old female with a past medical history significant for seizure disorder PE and renal insufficiency patient was admitted to the hospital with low potassium of 2.5, patient did have a fever that prompted his infectious disease consultation. On today's evaluation that is 07/24/2022, patient remains to be afebrile, the patient has been complaining of headache no photophobia and nausea vomiting, the patient denies chest pain , patient is breathing comfortably on room air, no abdominal pain or diarrhea, Objective - Vital Signs Vital signs: Vital Signs Temp 97.9 F 07/24/22 08:00 Pulse 71 07/24/22 08:00 Resp 18 07/24/22 08:00 BP 107/66 07/24/22 08:00 Pulse Ox 94 L 07/24/22 08:00 FiO2 Intake & Output 07/23/22 07/24/22 07/24/22 18:59 06:59 18:59 Intake Total 900 658 Balance 900 658 Intake: Oral 900 658 Other: Voiding Method Toilet Toilet # Voids 2 2 - Exam GENERAL DESCRIPTION: Middle-aged female lying in bed in no distress RESPIRATORY SYSTEM: Unlabored breathing , decreased breath sounds at bases HEART: S1 S2 regular rate and rhythm , ABDOMEN: Soft , no tenderness EXTREMITIES: No edema feet - Labs CBC & Chem 7: 07/23/22 19:00 07/24/22 04:47 Labs: Abnormal Lab Results - Last 24 Hours (Table) 07/23/22 07/24/22 Range/Units 20:15 04:47 BUN 26 H (7-17) mg/dL Creatinine 1.62 H (0.52-1.04) mg/dL Glucose 102 H (74-99) mg/dL POC Glucose (mg/dL) 115 H (70-110) mg/dL Total Protein 5.8 L (6.3-8.2) g/dL Microbiology - Last 24 Hours (Table) 07/19/22 17:52 Blood Culture - Preliminary Blood No Growth after 96 hours Assessment and Plan (1) Fever Current Visit: Yes Status: Acute Code(s): R50.9 - FEVER, UNSPECIFIED SNOMED Code(s): 337734761 Plan: 1patient with a fever last night and this patient admission to the hospital was for a low potassium patient currently did have mild respiratory symptoms mostly URI with concern for possible viral syndrome as the patient did have a normal white count, patient abdomen was soft on clinical examination and no evidence of any cellulitis. 2patient with multiple antibiotic allergies that would limit the number of antibiotics safe to use. 3 blood cultures has been negative CRP mildly elevated but normal procalcitonin , UA negative chest x-ray reported negative for pneumonia, patient did have a CT of abdominal pelvis did not show any acute abnormality 4patient did have a negative workup and the patient is currently being monitor closely off antibiotic therapy Time with Patient: Less than 30
[2022-07-24 16:33] LABS: Glucose,Whole Blood 137 mg/dL (70-110)
[2022-07-24] MEDS: LORazepam 2 MG/ML INJ IV PRN (18:35)
[2022-07-24 20:28] LABS: Glucose,Whole Blood 170 mg/dL (70-110)
[2022-07-24] MEDS: FLUCONAZOLE 150 MG TAB PO SCH (20:37)
[2022-07-24] MEDS: ATORVASTATIN 40 MG TAB PO SCH (20:37)
[2022-07-25] MEDS: HYDROmorphone 1 MG/ML 1 ML SYRINGE IVP PRN ×6 (00:56→20:51)
[2022-07-25] MEDS: SPIRONOLACTONE 25 MG TAB PO SCH ×3 (00:56→20:53)
[2022-07-25] MEDS: GABAPENTIN 300 MG CAP PO SCH ×4 (00:57→21:29)
[2022-07-25] MEDS: diphenhydrAMINE 50 MG/ML 1 ML VIAL IVP PRN ×3 (05:37→20:50)
[2022-07-25 06:20] LABS: Glucose,Whole Blood 109 mg/dL (70-110)
[2022-07-25] MEDS: INSULIN ASPART (NovoLOG) 100 UNIT/ML VIAL SQ SCH ×4 (06:43→21:29)
[2022-07-25 09:19] LABS: Basophils % (A) 0 %; Eosinophils # (A) 0.1 k/uL (0-0.7); Eosinophils % (A) 2 %; HCT 37.6 % (34.0-46.0); HGB 12.5 gm/dL (11.4-16.0); Lymphocytes # (A) 1.2 k/uL (1.0-4.8); Lymphocytes % (A) 20 %; MCH 31.5 pg (25.0-35.0); MCHC 33.2 g/dL (31.0-37.0); MCV 95.1 fL (80.0-100.0); Monocytes # (A) 0.3 k/uL (0-1.0); Monocytes % (A) 5 %; Neutrophils # (A) 4.3 k/uL (1.3-7.7); Neutrophils % (A) 70 %; Platelet Count 148 k/uL (150-450); RBC 3.96 m/uL (3.80-5.40); RDW 13.4 % (11.5-15.5); WBC 6.1 k/uL (3.8-10.6)
[2022-07-25 09:25] LABS: Calcium 8.9 mg/dL (8.4-10.2); Total Bilirubin 0.5 mg/dL (0.2-1.3); Total Protein 6.8 g/dL (6.3-8.2)
[2022-07-25 09:30] LABS: Potassium 4.9 mmol/L (3.5-5.1)
[2022-07-25] MEDS: LORazepam 2 MG/ML INJ IV PRN (09:38)
[2022-07-25] MEDS: ENOXAPARIN 40 MG/0.4 ML SYRINGE SQ SCH (09:39)
[2022-07-25] MEDS: LIDOCAINE 5% PATCH TOPICAL SCH (09:39)
[2022-07-25] MEDS: PANTOPRAZOLE 40 MG TABLET PO SCH (09:40)
[2022-07-25] MEDS: SERTRALINE 100 MG TAB PO SCH (09:40)
[2022-07-25] MEDS: busPIRone HCl 5 MG TAB PO SCH ×2 (09:40→20:51)
[2022-07-25] MEDS: BUMETANIDE 1 MG TAB PO SCH ×2 (09:40→20:51)
[2022-07-25] MEDS: FLUDROCORTISONE 0.1 MG TAB PO SCH (09:40)
[2022-07-25] MEDS: ZONISAMIDE 100 MG CAP PO SCH ×2 (09:41→20:54)
[2022-07-25] MEDS: HYDROCORTISONE 10 MG TAB PO SCH ×2 (09:41→20:54)
--- NOTE | 2022-07-25 11:27 | P.PN ---
Subjective Progress Note Date: 07/24/22 Patient was seen for a follow-up. Patient continues to have headache, requesting for occipital nerve block. No seizures in the last 24 hours. She is doing much better with Zonegran. She has received last dose of Topamax today. Her seizure consist of a feeling coming on with tinnitus, tunnel vision. She blames it on bad migraine. The nurse reports that her left arm was rigid more than the right arm. Her left fingers were twitching. She had oral twitching following mouth and jaw. She was not responding and the episode lasted < 5 minutes. The nurse gave her Ativan, although it was not due at that time. Patient had earlier requested for Ativan per nurse report. She is fully alert and awake. Patient states her headache is improved 7/10, which is her usual headache. She is interested in occipital nerve block, but does not want lumbar puncture anymore. Patient states that she is scheduled for Botox injection on 08/16/2022. Objective - Vital Signs Vital signs: Vital Signs Temp 97.9 F 07/24/22 08:00 Pulse 74 07/24/22 14:00 Resp 18 07/24/22 14:00 BP 117/72 07/24/22 12:00 Pulse Ox 96 07/24/22 12:00 FiO2 Intake & Output 07/23/22 07/24/22 07/24/22 18:59 06:59 18:59 Intake Total 900 658 Balance 900 658 Intake: Oral 900 658 Other: Voiding Method Toilet Toilet # Voids 2 2 - Exam Patient is alert and awake, oriented to time place and person. Speech and language functions are normal. Muscle strength is normal. No ataxia. Sensations are equal. - Labs CBC & Chem 7: 07/25/22 08:49 07/25/22 08:49 Labs: Abnormal Lab Results - Last 24 Hours (Table) 07/23/22 07/24/22 07/24/22 Range/Units 20:15 04:47 16:31 BUN 26 H (7-17) mg/dL Creatinine 1.62 H (0.52-1.04) mg/dL Glucose 102 H (74-99) mg/dL POC Glucose (mg/dL) 115 H 137 H (70-110) mg/dL Total Protein 5.8 L (6.3-8.2) g/dL Microbiology - Last 24 Hours (Table) 07/19/22 17:52 Blood Culture - Preliminary Blood No Growth after 96 hours Assessment and Plan Assessment: * Breakthrough seizure, likely due to hypokalemia, migraine and excessive ongoing psychosocial stresses. * Altered mental status resolved. Patient does have chronic daily headaches. Her fever has resolved. No evidence of meningitis. * Posttraumatic migraines. Patient claims she has several migraines since her TBI in December 2007. Her migraines respond to Botox. * History of nonepileptic seizures * History of multiple ongoing psychosocial stresses. 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 * History of pyoderma gangrenosum * Chronic renal insufficiency Plan: * Patient's mentation is back to normal. Patient's headache is back to baseline. She has no more temperature. We will cancel lumbar puncture. Patient is still interested in undergoing occipital nerve block. * No obvious source of fever identified so far. CT of abdomen and pelvis, chest x-ray and UA are all normal. * Patient has recurrent episodes of hypokalemia. Topamax has weak carbonic anhydrase inhibitor activity, which can be associated with hypokalemia. We will switch from Topamax to Zonegran. We will decrease Topamax further down to 50 mg once a day for 2 days and then stop Topamax. Patient is on Zonegran to 100 mg twice a day. Patient is very positive in continuing Zonegran. Stop Topamax now. * Treatment of hypokalemia as per IM. * Patient requesting consultation with pain management for occipital nerve block. Discussed with primary physician. We will hold Eliquis for now. * Patient is scheduled for her Botox injection on 08/16/2022. * Patient does not have a neurologist, as her Botox is given by an maintenance parts technician at [facility] Dr Aguirre. * Continue Ubrelvy 100 mg tablets as needed for migraines. Patient was recommended to try [facility] ODT as an outpatient. She has received Botox on 05/24/2022, next dose due in July. * CT sinuses from 03/18/2022 is normal. No significant mucosal sinus disease. The ostiomeatal units, frontonasal and sphenoethmoidal recesses are clear. * Carotid Doppler from 09/25/2021 is normal. Antegrade flow in both vertebral arteries.
[2022-07-25] MEDS: HYDROcodone/APAP 7.5-325MG 1 EACH TAB PO PRN (11:45)
[2022-07-25 11:47] LABS: Glucose,Whole Blood 90 mg/dL (70-110)
--- NOTE | 2022-07-25 12:18 | P.PN ---
Subjective Patient is seen in follow-up for acute kidney injury on chronic kidney disease and hypokalemia. Oral intake fair. Currently being diuresed. No vomiting or diarrhea. Renal function stable. Hemodynamically stable. Complaining of feeling swollen this morning. No shortness of breath. Objective - Vital Signs Vital signs: Vital Signs Temp 98.2 F 07/25/22 08:00 Pulse 74 07/25/22 08:00 Resp 16 07/25/22 08:00 BP 127/81 07/25/22 08:00 Pulse Ox 96 07/25/22 08:00 FiO2 Intake & Output 07/24/22 07/25/22 07/25/22 18:59 06:59 18:59 Intake Total 658 480 Balance 658 480 Weight 78.9 kg Intake: Oral 658 480 Other: Voiding Method Toilet Toilet Toilet # Voids 2 1 - Exam Patient is awake, comfortable, no acute distress Alert oriented 3 Examination of the heart S1 and S2 Examination of the lungs bilateral breath sounds are heard Abdomen is soft nontender Examination of lower extremities shows edema 1+ bilaterally WO[employer]AT BU[employer]DER exam grossly intact - Labs CBC & Chem 7: 07/25/22 08:49 07/25/22 08:49 Labs: Abnormal Lab Results - Last 24 Hours (Table) 07/24/22 07/24/22 07/25/22 Range/Units 16:31 20:26 08:49 Plt Count 148 L (150-450) k/uL BUN (7-17) mg/dL Creatinine (0.52-1.04) mg/dL POC Glucose (mg/dL) 137 H 170 H (70-110) mg/dL 07/25/22 Range/Units 08:49 Plt Count (150-450) k/uL BUN 27 H (7-17) mg/dL Creatinine 1.45 H (0.52-1.04) mg/dL POC Glucose (mg/dL) (70-110) mg/dL Microbiology - Last 24 Hours (Table) 07/19/22 17:52 Blood Culture - Preliminary Blood No Growth after 120 hours Assessment and Plan Assessment: 1. Acute kidney injury mostly prerenal secondary to diuresis. Creatinine at 1. UA benign. No hydronephrosis noted on kidney ultrasound done April 2022. Right kidney atrophic. 2. Chronic kidney disease stage IIIa with baseline creatinine 1.2-1.5 secondary to solitary functioning left kidney and cardiorenal syndrome. 3. Volume overload. Improving. 4. Chronic diastolic CHF. 5. Hypokalemia likely from diuresis. Magnesium not low. Urine potassium has been on the either normal or on higher side in the past. Also on steroids which would induce renal potassium losses. Genetic testing has been discussed with the patient outpatient but she is yet to follow up. Stable. Hasn't required potassium supplementation last 3 days. 6. History of pyoderma gangrenosum. 7. History of tricuspid valve repair. 8. 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 Maintained on Cortef and Florinef. Plan: Continue current dose of oral diuretics. I will give 1 dose of IV Lasix. Follow-up as outpatient Repeat labs in 4-5 days post discharge
[2022-07-25] MEDS ORDERED: FUROSEMIDE 10 MG/ML 2 ML VIAL IV ONE (12:30)
--- NOTE | 2022-07-25 14:41 | P.PN ---
Subjective Progress Note Date: 07/25/22 Principal diagnosis: Fever Patient is a 57-year-old female with a past medical history significant for seizure disorder PE and renal insufficiency patient was admitted to the hospital with low potassium of 2.5, patient did have a fever that prompted his infectious disease consultation. On today's evaluation that is 07/25/2022, patient continues to be afebrile, the patient still complaining of headache however no photophobia , did have some nausea but no vomiting, the patient denies chest pain , patient is breathing comfortably on room air, no abdominal pain or diarrhea, Objective - Vital Signs Vital signs: Vital Signs Temp 98.2 F 07/25/22 08:00 Pulse 74 07/25/22 08:00 Resp 16 07/25/22 08:00 BP 127/81 07/25/22 08:00 Pulse Ox 96 07/25/22 08:00 FiO2 Intake & Output 07/24/22 07/25/22 07/25/22 18:59 06:59 18:59 Intake Total 658 480 Balance 658 480 Weight 78.9 kg Intake: Oral 658 480 Other: Voiding Method Toilet Toilet Toilet # Voids 2 1 - Exam GENERAL DESCRIPTION: Middle-aged female lying in bed in no distress RESPIRATORY SYSTEM: Unlabored breathing , decreased breath sounds at bases HEART: S1 S2 regular rate and rhythm , ABDOMEN: Soft , no tenderness EXTREMITIES: No edema feet - Labs CBC & Chem 7: 07/25/22 08:49 07/25/22 08:49 Labs: Abnormal Lab Results - Last 24 Hours (Table) 07/24/22 07/24/22 07/25/22 Range/Units 16:31 20:26 08:49 Plt Count 148 L (150-450) k/uL BUN (7-17) mg/dL Creatinine (0.52-1.04) mg/dL POC Glucose (mg/dL) 137 H 170 H (70-110) mg/dL 07/25/22 Range/Units 08:49 Plt Count (150-450) k/uL BUN 27 H (7-17) mg/dL Creatinine 1.45 H (0.52-1.04) mg/dL POC Glucose (mg/dL) (70-110) mg/dL Microbiology - Last 24 Hours (Table) 07/19/22 17:52 Blood Culture - Preliminary Blood No Growth after 120 hours Assessment and Plan (1) Fever Current Visit: Yes Status: Acute Code(s): R50.9 - FEVER, UNSPECIFIED SNOMED Code(s): 574760549 Plan: 1patient with a fever last night and this patient admission to the hospital was for a low potassium patient currently did have mild respiratory symptoms mostly URI with concern for possible viral syndrome as the patient did have a normal white count, patient abdomen was soft on clinical examination and no evidence of any cellulitis. 2patient with multiple antibiotic allergies that would limit the number of antibiotics safe to use. 3 blood cultures has been negative CRP mildly elevated but normal procalcitonin , UA negative chest x-ray reported negative for pneumonia, patient did have a CT of abdominal pelvis did not show any acute abnormality 4patient did have a negative workup for infectious etiology and the patient seemed to be doing well off antibiotics and will monitor closely Time with Patient: Less than 30
[2022-07-25 16:37] LABS: Glucose,Whole Blood 162 mg/dL (70-110)
[2022-07-25 20:39] LABS: Glucose,Whole Blood 164 mg/dL (70-110)
[2022-07-25] MEDS: ATORVASTATIN 40 MG TAB PO SCH (20:53)
[2022-07-25] MEDS: FLUCONAZOLE 150 MG TAB PO SCH (20:53)
[2022-07-25] MEDS: MIDODRINE 5 MG TAB PO PRN (20:53)
[2022-07-25] MEDS: DICLOFENAC SODIUM GEL 100 GM TUBE TOPICAL PRN (21:20)
[2022-07-25] MEDS ORDERED: ALTEPLASE 2 MG VIAL (CATHFLO) MISCELLANE ONE (21:24)
--- NOTE | 2022-07-26 00:37 | PN ---
PROGRESS NOTE SUBJECTIVE: Dr. Pinon has seen her for Neurology, Dr. Renteria for kidney site for infection. No seizures in the last 24 hours. Botox injection on 08/16/2022. She wants to have occipital injections in the morning. Otherwise, she will have to be discharged. Headaches are a little bit better. Potassium stable without potassium supplementation, posttraumatic migraines, altered mental status, breakthrough seizure, cervical myofascial syndromes, history of multiple PEs, pyoderma gangrenosum, chronic renal insufficiency. Continue current treatment. Prognosis guarded. Occipital injections in the morning, then discharge. MMODL / IJN: [id number] /
--- NOTE | 2022-07-26 01:22 | P.PN ---
Subjective Progress Note Date: 07/25/22 Patient was seen for a follow-up. Patient continues to have headache, requesting for occipital nerve block. No seizures in the last 24 hours. She is doing much better with Zonegran. She has received last dose of Topamax yesterday. Patient had a seizure witnessed by the nurse. The nurse mentioned that patient became rigid in the arms, bilateral fingers were moving and she was unresponsive. She did a deep sternal rub and patient would not wake up or respond at all. This seizure lasted for about 3 minutes and within 30 seconds, patient was completely back to baseline with no postictal state. The nurse said "welcome back", and the patient replied smiling "you are silly". The nurse also suspected nonepileptic seizure. Patient states that she believes the seizure oc curred because she stayed in the shower too long. Her seizure consist of a feeling coming on with tinnitus, tunnel vision. She blames it on bad migraine. The nurse reports that her left arm was rigid more than the right arm. Her left fingers were twitching. She had oral twitching following mouth and jaw. She was not responding and the episode lasted < 5 minutes. The nurse gave her Ativan, although it was not due at that time. Patient had earlier requested for Ativan per nurse report. She is fully alert and awake. Patient states her headache is improved 7/10, which is her usual headache. She is interested in occipital nerve block, but does not want lumbar puncture anymore. Patient states that she is scheduled for Botox injection on 08/16/2022. Objective - Vital Signs Vital signs: Vital Signs Temp 98.2 F 07/25/22 08:00 Pulse 80 07/25/22 14:00 Resp 16 07/25/22 14:00 BP 120/76 07/25/22 12:00 Pulse Ox 90 L 07/25/22 12:00 FiO2 Intake & Output 07/24/22 07/25/22 07/25/22 18:59 06:59 18:59 Intake Total 658 598 Balance 658 598 Weight 78.9 kg Intake: Oral 658 598 Other: Voiding Method Toilet Toilet Toilet # Voids 2 1 - Exam Patient is alert and awake, oriented to time place and person. Speech and language functions are normal. Muscle strength is normal. No ataxia. Sensations are equal. - Labs CBC & Chem 7: 07/25/22 08:49 07/25/22 08:49 Labs: Abnormal Lab Results - Last 24 Hours (Table) 07/24/22 07/25/22 07/25/22 Range/Units 20:26 08:49 08:49 Plt Count 148 L (150-450) k/uL BUN 27 H (7-17) mg/dL Creatinine 1.45 H (0.52-1.04) mg/dL POC Glucose (mg/dL) 170 H (70-110) mg/dL 07/25/22 Range/Units 16:35 Plt Count (150-450) k/uL BUN (7-17) mg/dL Creatinine (0.52-1.04) mg/dL POC Glucose (mg/dL) 162 H (70-110) mg/dL Microbiology - Last 24 Hours (Table) 07/19/22 17:52 Blood Culture - Preliminary Blood No Growth after 120 hours Assessment and Plan Assessment: * Breakthrough seizure, likely due to hypokalemia, migraine and excessive ongoing psychosocial stresses. * Altered mental status resolved. Patient does have chronic daily headaches. Her fever has resolved. No evidence of meningitis. * Posttraumatic migraines. Patient claims she has several migraines since her TBI in December 2007. Her migraines respond to Botox. * History of nonepileptic seizures * History of multiple ongoing psychosocial stresses. 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 * History of pyoderma gangrenosum * Chronic renal insufficiency Plan: * Patient's mentation is back to normal. Patient's headache is back to baseline. She has no more temperature. We will cancel lumbar puncture. Patient is still interested in undergoing occipital nerve block. Patient will be clear for discharge after she undergoes occipital nerve block. * No obvious source of fever identified so far. CT of abdomen and pelvis, chest x-ray and UA are all normal. * Patient has recurrent episodes of hypokalemia. Topamax has weak carbonic anhydrase inhibitor activity, which can be associated with hypokalemia. We will switch from Topamax to Zonegran. We will decrease Topamax further down to 50 mg once a day for 2 days and then stop Topamax. Patient is on Zonegran to 100 mg twice a day. Patient is very positive in continuing Zonegran. Stop Topamax now. * Treatment of hypokalemia as per IM. * Patient requesting consultation with pain management for occipital nerve block. Discussed with primary physician. We will hold Eliquis for now. * Patient is scheduled for her Botox injection on 08/16/2022. * Patient does not have a neurologist, as her Botox is given by an cutter and presser at [facility] Dr Aguirre. * Continue Ubrelvy 100 mg tablets as needed for migraines. Patient was recommended to try [facility] ODT as an outpatient. She has received Botox on 05/24/2022, next dose due in July. * CT sinuses from 03/18/2022 is normal. No significant mucosal sinus disease. The ostiomeatal units, frontonasal and sphenoethmoidal recesses are clear. * Carotid Doppler from 09/25/2021 is normal. Antegrade flow in both vertebral arteries. * Dr. Lefty Zhu will be available for any neurological concerns from the morning.
[2022-07-26] MEDS: diphenhydrAMINE 50 MG/ML 1 ML VIAL IVP PRN ×3 (05:44→18:07)
[2022-07-26] MEDS: HYDROmorphone 1 MG/ML 1 ML SYRINGE IVP PRN ×5 (05:44→21:08)
[2022-07-26] MEDS: ENOXAPARIN 40 MG/0.4 ML SYRINGE SQ SCH ×2 (07:54→19:26)
[2022-07-26] MEDS: LORazepam 2 MG/ML INJ IV PRN ×2 (08:21→18:22)
[2022-07-26] MEDS: GABAPENTIN 300 MG CAP PO SCH ×3 (08:42→19:38)
[2022-07-26] MEDS: SPIRONOLACTONE 25 MG TAB PO SCH ×2 (08:42→19:39)
[2022-07-26] MEDS: busPIRone HCl 5 MG TAB PO SCH ×2 (08:42→19:39)
[2022-07-26] MEDS: PANTOPRAZOLE 40 MG TABLET PO SCH (08:42)
[2022-07-26] MEDS: BUMETANIDE 1 MG TAB PO SCH ×2 (08:42→19:40)
[2022-07-26] MEDS: SERTRALINE 100 MG TAB PO SCH (08:42)
[2022-07-26] MEDS: HYDROCORTISONE 10 MG TAB PO SCH ×2 (08:43→19:39)
[2022-07-26] MEDS: ZONISAMIDE 100 MG CAP PO SCH ×2 (08:43→19:39)
[2022-07-26] MEDS: FLUDROCORTISONE 0.1 MG TAB PO SCH (08:43)
[2022-07-26] MEDS: LIDOCAINE 5% PATCH TOPICAL SCH (08:43)
[2022-07-26] MEDS: HYDROmorphone 0.5 MG/0.5 ML SYRINGE IVP PRN (08:44)
[2022-07-26 09:32] LABS: Basophils % (A) 0 %; Eosinophils # (A) 0.2 k/uL (0-0.7); Eosinophils % (A) 3 %; HCT 38.6 % (34.0-46.0); HGB 12.7 gm/dL (11.4-16.0); Lymphocytes # (A) 1.3 k/uL (1.0-4.8); Lymphocytes % (A) 19 %; MCH 30.4 pg (25.0-35.0); MCV 92.1 fL (80.0-100.0); Mean Platelet Volume 7.8; Monocytes # (A) 0.5 k/uL (0-1.0); Monocytes % (A) 7 %; Neutrophils % (A) 69 %; Platelet Count 235 k/uL (150-450); RBC 4.19 m/uL (3.80-5.40); RDW 13.4 % (11.5-15.5); WBC 7.2 k/uL (3.8-10.6)
[2022-07-26 09:44] LABS: Albumin 4.1 g/dL (3.5-5.0); Magnesium 2.5 mg/dL (1.6-2.3); Potassium 4.6 mmol/L (3.5-5.1); Total Bilirubin 0.4 mg/dL (0.2-1.3); Total Protein 6.7 g/dL (6.3-8.2)
[2022-07-26] MEDS: HYDROcodone/APAP 7.5-325MG 1 EACH TAB PO PRN (10:16)
[2022-07-26] MEDS: NON FORMULARY DRUG (Ubrogepant [Ubrelvy] 100 MG Tablet) PO PRN (10:16)
[2022-07-26 11:57] LABS: Glucose,Whole Blood 114 mg/dL (70-110)
--- NOTE | 2022-07-26 13:46 | P.PN ---
Subjective Patient is seen in follow-up for acute kidney injury on chronic kidney disease and hypokalemia. Oral intake fair. Currently being diuresed. No vomiting or diarrhea. Renal function stable. Hemodynamically stable. Complaining of feeling swollen again this morning. No shortness of breath. Received extra dose of IV push Lasix yesterday. Serum creatinine stable at 1.4 Objective - Vital Signs Vital signs: Vital Signs Temp 98.6 F 07/26/22 11:08 Pulse 74 07/26/22 13:23 Resp 16 07/26/22 11:08 BP 116/71 07/26/22 11:08 Pulse Ox 95 07/26/22 11:08 FiO2 Intake & Output 07/25/22 07/26/22 07/26/22 18:59 06:59 18:59 Intake Total 836 640 Output Total 800 1600 Balance 836 -160 -1600 Weight 78.4 kg Intake: IV 40 Invasive Line 3 40 Oral 836 600 Output: Urine 800 1600 Stool 0 Other: Voiding Method Toilet Toilet Toilet # Voids 0 - Exam Patient is awake, comfortable, no acute distress Alert oriented 3 Examination of lower extremities shows edema 1+ bilaterally ADDICTION SPECIALIST exam grossly intact - Labs CBC & Chem 7: 07/26/22 08:49 07/26/22 08:49 Labs: Abnormal Lab Results - Last 24 Hours (Table) 07/25/22 07/25/22 07/26/22 Range/Units 16:35 20:37 08:49 Sodium 136 L (137-145) mmol/L BUN 24 H (7-17) mg/dL Creatinine 1.45 H (0.52-1.04) mg/dL POC Glucose (mg/dL) 162 H 164 H (70-110) mg/dL Magnesium 2.5 H (1.6-2.3) mg/dL 07/26/22 Range/Units 11:55 Sodium (137-145) mmol/L BUN (7-17) mg/dL Creatinine (0.52-1.04) mg/dL POC Glucose (mg/dL) 114 H (70-110) mg/dL Magnesium (1.6-2.3) mg/dL Microbiology - Last 24 Hours (Table) 07/19/22 17:52 Blood Culture - Final Blood No Growth after 144 hours Assessment and Plan Assessment: 1. Acute kidney injury mostly prerenal secondary to diuresis. Creatinine at 1.4 UA benign. No hydronephrosis noted on kidney ultrasound done April 2022. Right kidney atrophic. 2. Chronic kidney disease stage IIIa with baseline creatinine 1.2-1.5 secondary to solitary functioning left kidney and cardiorenal syndrome. 3. Volume overload. Improving. 4. Chronic diastolic CHF. 5. Hypokalemia likely from diuresis. Magnesium not low. Urine potassium has been on the either normal or on higher side in the past. Also on steroids which would induce renal potassium losses. Genetic testing has been discussed with the patient outpatient but she is yet to follow up. Stable. Hasn't required potassium supplementation last 3 days. 6. History of pyoderma gangrenosum. 7. History of tricuspid valve repair. 8. 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 Maintained on Cortef and Florinef. Hold Florinef due to volume overload. I see that patient is also on Aldactone. Plan: Continue current dose of oral diuretics. I will give 1 dose of IV Lasix. Hold Florinef while patient is volume overloaded Follow-up as outpatient Repeat labs in 4-5 days post discharge
[2022-07-26 16:41] LABS: Glucose,Whole Blood 122 mg/dL (70-110)
--- NOTE | 2022-07-26 18:56 | P.PN ---
Subjective Progress Note Date: 07/26/22 Principal diagnosis: Fever Patient is a 57-year-old female with a past medical history significant for seizure disorder PE and renal insufficiency patient was admitted to the hospital with low potassium of 2.5, patient did have a fever that prompted his infectious disease consultation. On today's evaluation that is 07/26/2022, patient remains to be afebrile, the patient is complaining of headache however no photophobia or nausea or vomiting, the patient denies chest pain , patient is breathing comfortably on room air, no abdominal pain or diarrhea, Objective - Vital Signs Vital signs: Vital Signs Temp 98.6 F 07/26/22 11:08 Pulse 74 07/26/22 11:08 Resp 16 07/26/22 11:08 BP 116/71 07/26/22 11:08 Pulse Ox 95 07/26/22 11:08 FiO2 Intake & Output 07/25/22 07/26/22 07/26/22 18:59 06:59 18:59 Intake Total 836 640 Output Total 800 1600 Balance 836 -160 -1600 Weight 78.4 kg Intake: IV 40 Invasive Line 3 40 Oral 836 600 Output: Urine 800 1600 Stool 0 Other: Voiding Method Toilet Toilet Toilet # Voids 0 - Exam GENERAL DESCRIPTION: Middle-aged female lying in bed in no distress RESPIRATORY SYSTEM: Unlabored breathing , decreased breath sounds at bases HEART: S1 S2 regular rate and rhythm , ABDOMEN: Soft , no tenderness EXTREMITIES: No edema feet - Labs CBC & Chem 7: 07/26/22 08:49 07/26/22 08:49 Labs: Abnormal Lab Results - Last 24 Hours (Table) 07/25/22 07/25/22 07/26/22 Range/Units 16:35 20:37 08:49 Sodium 136 L (137-145) mmol/L BUN 24 H (7-17) mg/dL Creatinine 1.45 H (0.52-1.04) mg/dL POC Glucose (mg/dL) 162 H 164 H (70-110) mg/dL Magnesium 2.5 H (1.6-2.3) mg/dL 07/26/22 Range/Units 11:55 Sodium (137-145) mmol/L BUN (7-17) mg/dL Creatinine (0.52-1.04) mg/dL POC Glucose (mg/dL) 114 H (70-110) mg/dL Magnesium (1.6-2.3) mg/dL Microbiology - Last 24 Hours (Table) 07/19/22 17:52 Blood Culture - Final Blood No Growth after 144 hours Assessment and Plan (1) Fever Current Visit: Yes Status: Acute Code(s): R50.9 - FEVER, UNSPECIFIED SNOMED Code(s): 276394979 Plan: 1patient with a fever last night and this patient admission to the hospital was for a low potassium patient currently did have mild respiratory symptoms mostly URI with concern for possible viral syndrome as the patient did have a normal white count, patient abdomen was soft on clinical examination and no evidence of any cellulitis. 2patient with multiple antibiotic allergies that would limit the number of antibiotics safe to use. 3 blood cultures has been negative CRP mildly elevated but normal procalcitonin , UA negative chest x-ray reported negative for pneumonia, patient did have a CT of abdominal pelvis did not show any acute abnormality 4patient did have a negative workup for infectious etiology and the patient fever has resolved culture has been negative patient currently being monitor closely off antibiotic therapy Time with Patient: Less than 30
[2022-07-26] MEDS: ATORVASTATIN 40 MG TAB PO SCH (19:39)
[2022-07-26] MEDS: FLUCONAZOLE 150 MG TAB PO SCH (19:39)
[2022-07-26 20:22] LABS: Glucose,Whole Blood 157 mg/dL (70-110)
[2022-07-27] MEDS: HYDROmorphone 1 MG/ML 1 ML SYRINGE IVP PRN ×3 (00:54→10:01)
[2022-07-27] MEDS: diphenhydrAMINE 50 MG/ML 1 ML VIAL IVP PRN ×3 (00:56→13:59)
--- NOTE | 2022-07-27 02:25 | PN ---
PROGRESS NOTE SUBJECTIVE: This is a 57-year-old white female, no potassium has been needed for her in the last 5 days. Potassium levels have been normal. She is on Zonegran for migraines now, off Topamax. Sodium 136, potassium 4.6, occipital block tomorrow and then she can be discharged after occipital block. Labs are all reviewed. OBJECTIVE: CARDIOVASCULAR: S1, S2. LUNGS: Clear. GI: Soft. HEMATOLOGY: Negative for Homans. VITAL SIGNS: O2 99 on room air, blood pressure 120s over 80s, temp 98.1, pulse 76, respiratory rate 16 to 18. PLAN: Continue current treatment, occipital blocks in the morning and discharge home. For migraines on Zonegran. Continue current treatments at home. Discharge home tomorrow. Multiple hypokalemia is resolved. Renal insufficiency, chronic kidney disease stage IIIB, improved. PROGNOSIS: Guarded. Discharge home tomorrow. MMODL / IJN: [id number] /
[2022-07-27 07:18] LABS: Basophils % (A) 0 %; Eosinophils # (A) 0.2 k/uL (0-0.7); Eosinophils % (A) 3 %; HCT 39.9 % (34.0-46.0); HGB 12.8 gm/dL (11.4-16.0); Lymphocytes % (A) 16 %; MCH 30.2 pg (25.0-35.0); MCHC 32.1 g/dL (31.0-37.0); MCV 94.1 fL (80.0-100.0); Mean Platelet Volume 7.5; Monocytes # (A) 0.3 k/uL (0-1.0); Monocytes % (A) 4 %; Neutrophils # (A) 4.6 k/uL (1.3-7.7); Neutrophils % (A) 74 %; Platelet Count 239 k/uL (150-450); RBC 4.24 m/uL (3.80-5.40); RDW 13.3 % (11.5-15.5); WBC 6.3 k/uL (3.8-10.6)
[2022-07-27 07:32] LABS: Calcium 8.9 mg/dL (8.4-10.2); Potassium 4.3 mmol/L (3.5-5.1); Total Bilirubin 0.3 mg/dL (0.2-1.3); Total Protein 6.8 g/dL (6.3-8.2)
[2022-07-27] MEDS ORDERED: LACTATED RINGERS 1,000 ML IV ONE (11:00)
[2022-07-27] MEDS ORDERED: methylPREDNISolone ACETATE 80 MG/ML 1 ML VIAL ONE (11:06)
[2022-07-27] MEDS ORDERED: ROPIVACAINE 5 MG/ML 20 ML AMPULE ONE (11:06)
[2022-07-27] MEDS ORDERED: fentaNYL (PF) 50 MCG/ML 2 ML AMP ONE (11:06)
[2022-07-27] MEDS ORDERED: MIDAZOLAM 2 MG/2 ML VIAL ONE (11:06)
--- NOTE | 2022-07-27 11:16 | P.PCN ---
Date of Procedure: 07/27/22 Procedure(s) Performed: Preoperative diagnoses= 1- Greater occipital neuralgia. 2-cervicogenic headache Postoperative diagnoses= same as preoperative diagnosis. Procedure= Bilateral Greater occipital nerve block Anesthesia= moderate sedation with Versed 2 mg and fentanyl 50 micrograms Sedation start time : 1109 . Sedation end time : 1112 . Estimated blood loss=minimal. Procedure indication= the patient had a history of severe chronic neck pain ,and headache, diagnosed with occipital neuralgia exam was positive for severe tenderness over the occipital nerve bilaterally, she will be a good candidate occipital nerve block, patient failed conservative management Procedure description= the patient was seen and identified in the preoperative holding area, risks and benefits and alternative of the procedure and possible complications discussed with the patient, and he agreed with the preceding, patient signed the consent, an IV was started, and vital signs were monitored and were stable throughout the procedure, patient was placed in the sitting position or table and the neck area was prepped and draped with a sterile fashion, vital signs were closely monitored during the procedure, 25-gauge needle advanced 1 inch lateral to the occipital protuberance on the right side, at the location of the right occipital nerve , then after negative aspiration for heme and CSF and there was no paresthesia during the injection, 6 ml of Robivacaine 0.5% and 40 mg of Depo-Medrol injected after negative aspiration, the needle removed, and the entire same procedure was repeated for the left Greater occipital nerve. Patient tolerated the procedure well without any complication, The patient returned to supine position after the back was cleaned and a Band- Aid applied, the patient transported to recovery room in stable condition and he was monitored for 30 minutes before he was discharged home and then patient was reexamined before going home and patient was discharged in stable condition and patient will follow up with the pain clinic in a few weeks.
[2022-07-27 12:17] VITALS: BP 127/74; PULSE 72; RESP 16; TEMP 97.9
[2022-07-27] MEDS: SPIRONOLACTONE 25 MG TAB PO SCH (12:39)
[2022-07-27] MEDS: HYDROCORTISONE 10 MG TAB PO SCH (12:40)
[2022-07-27] MEDS: BUMETANIDE 1 MG TAB PO SCH (12:41)
[2022-07-27] MEDS: ZONISAMIDE 100 MG CAP PO SCH (12:41)
[2022-07-27] MEDS: busPIRone HCl 5 MG TAB PO SCH (12:41)
[2022-07-27] MEDS: GABAPENTIN 300 MG CAP PO SCH (12:41)
[2022-07-27] MEDS: SERTRALINE 100 MG TAB PO SCH (12:41)
[2022-07-27] MEDS: PANTOPRAZOLE 40 MG TABLET PO SCH (12:42)
[2022-07-27] MEDS: LIDOCAINE 5% PATCH TOPICAL SCH (12:49)
--- NOTE | 2022-07-27 14:21 | DS ---
DISCHARGE SUMMARY DISCHARGE MEDICINES: 1. Aldactone 25 mg daily. 2. Diflucan 150 mg daily. 3. Lidoderm 5% patch daily. 4. Cortef 10 mg b.i.d. 5. Zonegran 100 mg q.12 hours. 6. Midodrine 5 mg a.c. t.i.d. 7. Nexium 40 mg daily. 8. Antivert 12.5 q.8 hours. 9. BuSpar 5 mg b.i.d. 10.Bumex 2 mg daily. 11.Requip 2 mg at night. 12.Zoloft 200 mg daily. 13.Gabapentin 300 mg t.i.d. 14.Cholestyramine 4 mg daily for diarrhea. 15.Lipitor 40 mg daily. 16.Ubrelvy 100 mg b.i.d. 17.[place] 7.5 q.12 p.r.n. 18.Rescue inhaler 2 puffs b.i.d. 19.Botox injection, she gets every 84 days. 20.Bentyl 20 mg a.c. t.i.d. 21.Zofran 4 mg q.8 hours. 22.Tylenol 650 q.4 hours p.r.n. 23.Eliquis 5 mg b.i.d. 24.Aldactone 50 mg daily. 25.Diclofenac gel 4 g topically daily. 26.Bumex 1 mg daily. CONDITION: Stable. PROGNOSIS: Guarded. ACTIVITY: Ambulate as tolerated. HOSPITAL COURSE: The patient came in with severe hypokalemia, resolved off Topamax, now requiring potassium, Cortef has been decreased. Potassium has been stable without pills. Eliquis for atrial fibrillation with RVR. Had some IBS. Was treated for COPD and asthma. The patient was stabilized with 6 epidural injections prior to discharge and followup later on as an outpatient for migraines. Spinal tap was considered and refused. She stabilized with acute seizures and pseudoseizures. Follow up as an outpatient. Zonegran as need for headaches. Follow up as an outpatient. MMODL / IJN: [id number] /
== END 2022-07-27 14:54 | disposition home or self-care (01) | DRG 101 ==
LOC: EC 15:33 → 6NMEDSUR 19:03 → 3SCARD 07-19 19:23 → OBSVTOIN 07-20 10:15 → 3SCARD 07-23 04:10 → 5NMEDONC 07-27 02:02
PROVIDERS: ADMIT Family Medicine; ATTEND Family Medicine
PROC: 3E0T3BZ Introduction of Anesthetic Agent into Peripheral Nerves and Plexi, Percutaneous Approach (ICD-10-PCS; principal; 2022-07-27 11:00)
DX: G40.909 Epilepsy, unspecified, not intractable, without status epilepticus (principal); E87.3 Alkalosis; I13.0 Hypertensive heart and chronic kidney disease with heart failure and stage 1 through stage 4 chronic kidney disease, or unspecified chronic kidney disease; I50.32 Chronic diastolic (congestive) heart failure; N17.9 Acute kidney failure, unspecified; E23.0 Hypopituitarism; D68.61 Antiphospholipid syndrome; M32.9 Systemic lupus erythematosus, unspecified; E87.6 Hypokalemia; M50.223 Other cervical disc displacement at C6-C7 level; J44.9 Chronic obstructive pulmonary disease, unspecified; T50.2X5A Adverse effect of carbonic-anhydrase inhibitors, benzothiadiazides and other diuretics, initial encounter; Z95.2 Presence of prosthetic heart valve; N18.31 Chronic kidney disease, stage 3a; G25.81 Restless legs syndrome; G43.909 Migraine, unspecified, not intractable, without status migrainosus; G44.86 Cervicogenic headache; H93.19 Tinnitus, unspecified ear; I25.10 Atherosclerotic heart disease of native coronary artery without angina pectoris; I45.4 Nonspecific intraventricular block; R94.31 Abnormal electrocardiogram [ECG] [EKG]; I48.91 Unspecified atrial fibrillation; I08.1 Rheumatic disorders of both mitral and tricuspid valves; K58.9 Irritable bowel syndrome, unspecified; K44.9 Diaphragmatic hernia without obstruction or gangrene; M51.36 Other intervertebral disc degeneration, lumbar region; G89.29 Other chronic pain; F41.9 Anxiety disorder, unspecified; M54.81 Occipital neuralgia; T38.0X5A Adverse effect of glucocorticoids and synthetic analogues, initial encounter; Z79.01 Long term (current) use of anticoagulants; Z79.52 Long term (current) use of systemic steroids; Z79.899 Other long term (current) drug therapy; Z82.49 Family history of ischemic heart disease and other diseases of the circulatory system; Z86.711 Personal history of pulmonary embolism; Z87.820 Personal history of traumatic brain injury; Z88.1 Allergy status to other antibiotic agents; Z88.5 Allergy status to narcotic agent; Z88.0 Allergy status to penicillin; Z88.7 Allergy status to serum and vaccine; Z91.040 Latex allergy status; Z53.29 Procedure and treatment not carried out because of patient's decision for other reasons; Z88.8 Allergy status to other drugs, medicaments and biological substances; Z95.0 Presence of cardiac pacemaker
CPT/HCPCS: 36415; 64405; 71046; 74176; 80048; 80053; 81003; 82570; 83036; 83735; 84133; 84145; 85025; 85027; 86140; 87040; 87502; 87635; 93005; 96365; 96366; 96375; 99285

== ENCOUNTER → 2022-08-25 | Outpatient (CLI) | payer BC, MEDICARE ==
--- NOTE | 2022-08-25 14:34 | P.PAINPG ---
PQRS Measure Charge Sheet Comment: 57 yr old female presents today w severe and chronic neck pain secondary to cervicogenic RINALDI and occipital neuralgia for evaluation s/p BL EHSAN injection. PT states she experienced 80 % pain relief x 4 wks s/p procedure. Pt states pain level is at 2/10 in intensity, constant, localized in the base of the head, achy in character w shooting pain towards the top of the head. Pain is provoked by hyperextension and certain positions laying supine on a pillow. Pain is alleviated by injections, massage therapy as needed, chiropractic treatments as needed, medications, THC products, laying supine in a darkened room, repositioning and rest. Interventional pain procedures completed include BL EHSAN x2 Patient is currently on Neurontin, Voltaren gel Patient denies any side effects of the medication(s), denies excessive drowsiness or sleepiness, denies suicidal ideation and reports that the current pain medication is helping to control the pain and improve activities of daily living. Patient denies any motor or sensory deficits. Patient denies any fever or night sweats, denies any change in the bowel movements or urination. Physical Examination: -Constitutional: Cooperative. Not in acute distress . - Neurologic: Cranial nerve II to XII intact. No focal neurological deficits. - Psychatric: Alert & oriented x 3. Matching mood & appropriate affect. Judgment and insight intact. - Musculoskeletal: Cervical spine: Muscle bulk/ tone/ strength in the bilateral upper extremities normal Vertebral body tenderness to palpation over [place] test positive Distraction test positive Facet loading test positive TTP Thoracic spine Muscle bulk / tone/ strength in the bilateral paraspinal muscles normal Vertebral body tender to palpation over Facet loading test positive TTP Lumbar spine: Motor bulk/ tone/ strength lower extremities , thigh and legs : 5/5 Deep tendon reflexes : Normal Knee Jerk. Normal Ankle Jerk . Vertebral body tenderness to palpation over Lumbar Facet Loading Test positive Straight Leg Raise: positive at 30 degrees right side/ left side Gaenslen's Test positive Sacral spine : Severe tenderness over the Sacroiliac joint: right side / left side Range of motion: Flexion of the lumbar spine <60 degrees Range of motion: Extension of the lumbar spine <20 degrees Gaenslen's Test positive R / L Wu test: positive right side / left side Thigh Thrust Test positive R / L Sacral Thrust Test positive R/ L Assessment and plan: Chronic neck pain secondary to cervicogenic RINALDI and occipital neuralgia Pt exhibited sufficient and substantial pain relief w prior BL EHSAN procedure. May return on an as needed basis. All questions answered. I have spent less than 30 minutes on patient care today. Dr Hirsch was available by phone for the evaluation of this patient. The time was used to review the medical records including relevant urine studies and Prescription history (MAPs), review of the available imaging, evaluation and examination of the patient, coordination of care with the medical staff and if applicable referring physicians, as well as creation of the medical record Home Medications: Ambulatory Orders Atorvastatin [Lipitor] 40 mg PO HS 09/24/21 Cholestyramine (with Sugar) [Cholestyramine Packet] 4 gm PO DAILY PRN 09/24/21 Gabapentin 300 mg PO TID 09/24/21 Sertraline [Zoloft] 200 mg PO DAILY 09/24/21 Ubrogepant [Ubrelvy] 100 mg PO BID PRN 09/24/21 rOPINIRole HCL [Requip] 2 mg PO HS 09/24/21 Budesonide/Glycopyr/Formoterol [Breztri Aerosphere Inhaler] 1 puff INHALATION RT-BID 03/16/22 Esomeprazole Magnesium [NexIUM] 40 mg PO DAILY 03/16/22 HYDROcodone/APAP 7.5-325MG [[place] 7.5-325] 1 tab PO BID PRN 03/16/22 Midodrine [ProAmatine] 5 mg PO PC-TID PRN 03/16/22 Orphenadrine Citrate [Orphenadrine Citrate ER] 100 mg PO HS PRN 03/16/22 Botox 200unit Injection 1 dose INJ Q84D 04/02/22 Meclizine [Antivert] 12.5 mg PO Q8H PRN 04/02/22 Potassium Chloride ER [K-Dur 20] 40 meq PO TID 30 Days #90 tab 04/16/22 Diphenhydramine 50mg/Ml Vial 50 mg IM Q6H PRN 04/18/22 Dicyclomine [Bentyl] 20 mg PO TID PRN #30 tablet 04/30/22 Ondansetron Odt [Zofran ODT] 4 mg PO Q8HR PRN #12 tab 04/30/22 Acetaminophen Tab [Tylenol] 650 mg PO Q6HR PRN tab 01/16/23 Apixaban [Eliquis] 5 mg PO BID 05/29/22 Spironolactone [Aldactone] 50 mg PO DAILY 06/11/22 busPIRone HCl [Buspar] 5 mg PO BID 06/11/22 Topiramate [Topamax] 150 mg PO BID 90 Days #180 tab 06/12/22 Bumetanide [BUMEX] 1 mg PO HS 06/21/22 Diclofenac Sodium Gel [Voltaren Gel] 4 gm TOPICAL QID PRN 06/21/22 Bumetanide [BUMEX] 2 mg PO DAILY 06/24/22 Fluconazole [Diflucan] 150 mg PO HS 5 Days #5 tab 07/26/22 Hydrocortisone [Cortef] 10 mg PO BID 90 Days #180 tab 07/26/22 Lidocaine 5% Patch [Lidoderm 5% Patch] 1 patch TOPICAL DAILY 30 Days #30 patch 07/26/22 Spironolactone [Aldactone] 25 mg PO HS 90 Days #90 tab 07/26/22 Zonisamide [Zonegran] 100 mg PO Q12HR 30 Days #60 cap 07/26/22 Controlled Substance Measures - Controlled Substance Measures Is patient prescribed a controlled substance at discharge?: No
[2022-08-25 14:43] VITALS: BP 147/113; PULSE 75; RESP 18; TEMP 97.8
== END ==
LOC: PNWHC3 13:28
PROVIDERS: ATTEND Specialist
DX: M54.81 Occipital neuralgia (principal); G44.86 Cervicogenic headache; G89.29 Other chronic pain; Z88.1 Allergy status to other antibiotic agents; Z88.0 Allergy status to penicillin; Z88.7 Allergy status to serum and vaccine; Z88.5 Allergy status to narcotic agent; Z91.040 Latex allergy status; Z88.8 Allergy status to other drugs, medicaments and biological substances
CPT/HCPCS: 99211

== ENCOUNTER 2022-08-26 18:58 | Observation (INO) | payer BC, MEDICARE ==
[2022-08-26 19:03] VITALS: TEMP 97.6
[2022-08-26] MEDS ORDERED: SODIUM CHLORIDE 0.9% 1,000 ML IV STA (19:41)
--- NOTE | 2022-08-26 19:47 | ED ---
General Adult HPI - General Source: patient Mode of arrival: ambulatory Limitations: no limitations <Jon Perdomo - Last Filed: 08/26/22 21:05> <Linda Moreno - Last Filed: 08/27/22 05:24> - General Chief complaint: Chest Pain Stated complaint: Chest Pain/sob Time Seen by Provider: 08/26/22 19:24 - History of Present Illness Initial comments: Dictation was produced using [employer]AR[employer] dictation software. please excuse any grammatical, word or spelling errors. Chief Complaint: 57-year-old female with past medical history of pulmonary embolisms, chronic chest pain, seizure disorder, lupus presents to the ER for chest pain History of Present Illness: She is 49-year-old female states that she has a history of chest pain. States that over the last 30 minutes her symptoms have progressively increased. She states that she doesn't chest pain often however this time is much more severe. It's sharp and dull at the same time. Denies any history of myocardial infarction. She has no known history of coronary artery disease. States that it radiates to her back. Denies any numbness and paresthesias to the arms or legs. Patient allegedly has one kidney. The ROS documented in this emergency department record has been reviewed and confirmed by me. Those systems with pertinent positive or negative responses have been documented in the HPI. All other systems are other negative and/or noncontributory. (Jon Perdomo) - Related Data Home Medications Medication Instructions Recorded Confirmed Atorvastatin [Lipitor] 40 mg PO HS 09/24/21 08/26/22 Cholestyramine (with Sugar) 4 gm PO DAILY PRN 09/24/21 08/26/22 [Cholestyramine Packet] Gabapentin 300 mg PO TID 09/24/21 08/26/22 Sertraline [Zoloft] 200 mg PO DAILY 09/24/21 08/26/22 Ubrogepant [Ubrelvy] 100 mg PO BID PRN 09/24/21 08/26/22 rOPINIRole HCL [Requip] 2 mg PO HS 09/24/21 08/26/22 Budesonide/Glycopyr/Formoterol 1 puff INHALATION RT-BID 03/16/22 08/26/22 [Breztri Aerosphere Inhaler] Esomeprazole Magnesium [NexIUM] 40 mg PO DAILY 03/16/22 08/26/22 HYDROcodone/APAP 7.5-325MG [Monitor 1 tab PO BID PRN 03/16/22 08/26/22 7.5-325] Midodrine [ProAmatine] 5 mg PO PC-TID PRN 03/16/22 08/26/22 Orphenadrine Citrate [Orphenadrine 100 mg PO HS PRN 03/16/22 08/26/22 Citrate ER] Botox 200unit Injection 1 dose INJ Q84D 04/02/22 08/26/22 Meclizine [Antivert] 12.5 mg PO Q8H PRN 04/02/22 08/26/22 Diphenhydramine 50mg/Ml Vial 50 mg IM Q6H PRN 04/18/22 08/26/22 Apixaban [Eliquis] 5 mg PO BID 05/29/22 08/26/22 Spironolactone [Aldactone] 50 mg PO BID 06/11/22 08/26/22 busPIRone HCl [Buspar] 5 mg PO BID 06/11/22 08/26/22 Diclofenac Sodium Gel [Voltaren 4 gm TOPICAL QID PRN 06/21/22 08/26/22 Gel] Bumetanide [BUMEX] 2 mg PO DAILY 06/24/22 08/26/22 Bumetanide [Bumex] 1 mg PO HS 08/26/22 08/26/22 Lidocaine 5% Patch [Lidoderm 5% 1 patch TOPICAL DAILY PRN 08/26/22 08/26/22 Patch] Previous Rx's Medication Instructions Recorded Potassium Chloride ER [K-Dur 20] 40 meq PO TID 30 Days #90 tab 04/16/22 Dicyclomine [Bentyl] 20 mg PO TID PRN #30 tablet 04/30/22 Ondansetron Odt [Zofran ODT] 4 mg PO Q8HR PRN #12 tab 04/30/22 Acetaminophen Tab [Tylenol] 650 mg PO Q6HR PRN tab 05/17/22 Hydrocortisone [Cortef] 10 mg PO BID 90 Days #180 tab 07/26/22 Zonisamide [Zonegran] 100 mg PO Q12HR 30 Days #60 cap 07/26/22 Allergies Allergy/AdvReac Type Severity Reaction Status Date / Time Penicillins Allergy Severe Anaphylaxis Verified 08/26/22 20:15 vancomycin Allergy Severe Swelling Verified 08/26/22 20:15 in lips clindamycin Allergy Anaphylaxis Verified 08/26/22 20:15 Influenza Virus Vaccines Allergy Unknown Verified 08/26/22 20:15 latex Allergy Unknown Verified 08/26/22 20:15 morphine Allergy Unknown Verified 08/26/22 20:15 prochlorperazine Allergy Unknown Verified 08/26/22 20:15 [From Compazine] [id number] AdvReac Confusion, Verified 08/26/22 20:15 [From Emgality Pen] increased blood pressure metoclopramide [From Reglan] AdvReac Unknown Verified 08/26/22 20:15 Review of Systems ROS Other: All systems not noted in ROS Statement are negative. <Jon Perdomo - Last Filed: 08/26/22 21:05> ROS Other: All systems not noted in ROS Statement are negative. <Linda Moreno - Last Filed: 08/27/22 05:24> ROS Statement: Those systems with pertinent positive or pertinent negative responses have been documented in the HPI. 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 for low K+ History of Any Multi-Drug Resistant Organisms: C-DIFF Date of last positivie culture/infection: 2021 MDRO Source:: Stool Past Surgical History: Back Surgery, Breast Surgery, Cardiac Valve Replacement, Section, Cholecystectomy, Hysterectomy, Pacemaker Additional Past Surgical History / Comment(s): pacemaker d/t bradycardia/hypotension with last one place in 2013 in [place], [place], 3 lower back surgeries, bilateral breast reduction. 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 Past Anesthesia/Blood Transfusion Reactions: No Reported Reaction Type of Cardiac Device: Permanent Pacemaker, Unknown Device Placement Date:: 2012 Past Psychological History: Anxiety Smoking Status: Never smoker Past Alcohol Use History: None Reported Past Drug Use History: None Reported - Past Family History Mother Additional Family Medical History / Comment(s): Mother at the age of 49 yrs after surgery for silicon breast implants with a leak that caused ARDS and DIC per pt Father Family Medical History: Cancer, Hyperlipidemia, Hypertension Additional Family Medical History / Comment(s): Father is a colon cancer survivor. <Jon Perdomo - Last Filed: 08/26/22 21:05> General Exam Limitations: no limitations <Jon Perdomo - Last Filed: 08/26/22 21:05> - General Exam Comments Initial Comments: PHYSICAL EXAM: General Impression: Alert and oriented x3, acute distress secondary to pain HEENT: Normocephalic atraumatic, extra-ocular movements intact, pupils equal and reactive to light bilaterally, mucous membranes moist. Cardiovascular: Heart regular rate and rhythm Chest: Able to complete full sentences, no retractions, no tachypnea Abdomen: abdomen soft, non-tender, non-distended, no organomegaly Musculoskeletal: Pulses present and equal in all extremities, no peripheral edema Motor: no focal deficits noted Neurological: CN II-XII grossly intact, no focal motor or sensory deficits noted Skin: Intact with no visualized rashes Psych: Normal affect and mood (Jon Perdomo) Course Vital Signs 08/26/22 08/26/22 08/26/22 18:59 21:30 23:14 Temperature 97.6 F Pulse Rate 100 72 70 Respiratory 20 19 16 Rate Blood Pressure 142/82 108/72 108/48 O2 Sat by Pulse 96 97 98 Oximetry 08/27/22 08/27/22 08/27/22 00:02 01:50 03:49 Temperature Pulse Rate 72 70 70 Respiratory 14 16 16 Rate Blood Pressure 121/61 145/55 107/63 O2 Sat by Pulse 98 97 98 Oximetry 08/27/22 05:16 Temperature Pulse Rate 70 Respiratory 20 Rate Blood Pressure 114/69 O2 Sat by Pulse 96 Oximetry EKG Findings - EKG Comments: EKG Findings:: My EKG interpretation: Ventricular rate 99, sinus rhythm,. Interval 92, QRS 90, QTc 444. No IN prolongation, no QTC prolongation, no ST or T-wave changes noted. EKG compared to July 16 2022 showing no changes. Overall, this EKG is unremarkable <Tim Perdomossshay Bear - Last Filed: 08/26/22 21:05> Medical Decision Making <Jon Perdomo - Last Filed: 08/26/22 21:05> - Lab Data Result diagrams: 08/26/22 20:30 08/26/22 20:30 <Linda Moreno Latha - Last Filed: 08/27/22 05:24> - Medical Decision Making Was pt. sent in by a medical professional or institution (, PA, ELECTROPLATING SALES REPRESENTATIVE, urgent care, hospital, or detention...) When possible be specific @ -[No] Did you speak to anyone other than the patient for history (EMS, parent, family, police, friend...)? What history was obtained from this source @ -no Did you review nursing and triage notes (agree or disagree)? Why? @ -[I reviewed and agree with nursing and triage notes] Were old charts reviewed (outside hosp., previous admission, EMS record, old EKG , old radiological studies, urgent care reports/EKG's, detention records)? Report findings @ -[No old charts were reviewed] Differential Diagnosis (chest pain, altered mental status, abdominal pain women, abdominal pain men, vaginal bleeding, musculoskeletal, weakness, fever, dyspnea, syncope, headache, dizziness, GI bleed, back pain, seizure, CVA, palpatations, mental health)? @ -Differential Chest Pain: Stable Angina, Unstable Angina, STEMI, NSTEMI Aortic Dissection, Pneumothorax, Musculoskeletal, Esophageal Spasm GERD, Cholecystitis, Pancreatitis, Zoster, this is not meant to be an all-inclusive list. EKG interpreted by me (3pts min.). @ -See above X-rays interpreted by me (1pt min.). @ -[None done] CT interpreted by me (1pt min.). @ -pending CT angiography of the chest U/S interpreted by me (1pt. min.). @ -[None done] What testing was considered but not performed or refused? (CT, X-rays, U/S, labs)? Why? @ -[None] What meds were considered but not given or refused? Why? @ -[None] Did you discuss the management of the patient with other professionals ( professionals i.e. , PA, ELECTROPLATING SALES REPRESENTATIVE, lab, RT, psych nurse, transition social worker, tile classifier, teacher, operations officer, comp field case manager)? Give summary @ -Case is discussed with Dr. Hassan who recommends that we pursued despite her long history of chronic pain issues Was smoking cessation discussed for >3mins.? @ -[No] Was critical care preformed (if so, how long)? @ -[No] Were there social determinants of health that impacted care today? How? (Homelessness, low income, unemployed, alcoholism, drug addiction, transportation, low edu. Level, literacy, decrease access to med. care, fdc, rehab)? @ -[No] Was there de-escalation of care discussed even if they declined (Discuss DNR or withdrawal of care, Hospice)? DNR status @ -[No] What co-morbidities impacted this encounter? (DM, HTN, Smoking, COPD, CAD, Cancer, CVA, ARF, Chemo, Hep., AIDS, mental health diagnosis, sleep apnea, morbid obesity)? @ -Lupus, pulmonary embolus, chronic pain, pacemaker Was patient admitted / discharged? Hospital course, mention meds given and route, prescriptions, significant lab abnormalities, going to OR and other pertinent info. @ -- 57 year-old female presents to the emergency department with severe chest pain. Patient has multiple comorbidities. Patient states that her pain is severe in her back. EKG was not ischemic findings. Undiagnosed new problem with uncertain prognosis? @ -[No] Drug Therapy requiring intensive monitoring for toxicity (Heparin, Nitro, Insulin, Cardizem)? @ -[No] Were any procedures done? @ -[No] Diagnosis/symptom? Acute, or Chronic, or Acute on Chronic? Uncomplicated (without systemic symptoms) or Complicated (systemic symptoms)? @ -1. Severe, acute chest pain Side effects of treatment? @ -[No] Exacerbation, Progression, or Severe Exacerbation? @ -[No] Poses a threat to life or bodily function? How? (Chest pain, [place], [place], pneumonia, PE, COPD, DKA, ARF, appy, cholecystitis, CVA, Diverticulitis, Homicidal, Suicidal, threat to staff... and all critical care pts) @ -yes signed out to Dr. Moreno at 9pm (Jon Perdomo) Patient was signed out to me by Dr. Perdomo. She does have what appears to be wjbilv-[id number]-[id number] activity after requesting Dilaudid multiple times. She did receive 2 mg of Ativan for this activity which does stop. She goes for CT of her chest, abdomen and pelvis. No signs of dissection. Limited evaluation of the pulmonary arteries. May be some underlying pulmonary hypertension. Results are discussed the patient. Continues to complain of chest pain. Patient will be admitted to Dr. Hassan for cardiology consultation. Patient is awaiting a bed on the floor (Linda Moreno) - Lab Data Lab Results 08/26/22 08/26/22 08/26/22 Range/Units 20:30 20:30 20:30 WBC 7.1 (3.8-10.6) k/uL RBC 4.44 (3.80-5.40) m/uL Hgb 13.4 (11.4-16.0) gm/dL Hct 39.0 (34.0-46.0) % MCV 87.9 D (80.0-100.0) fL MCH 30.2 (25.0-35.0) pg MCHC 34.4 (31.0-37.0) g/dL RDW 13.9 (11.5-15.5) % Plt Count 237 (150-450) k/uL MPV 8.5 Neutrophils % 72 % Lymphocytes % 16 % Monocytes % 7 % Eosinophils % 1 % Basophils % 0 % Neutrophils # 5.2 (1.3-7.7) k/uL Lymphocytes # 1.1 (1.0-4.8) k/uL Monocytes # 0.5 (0-1.0) k/uL Eosinophils # 0.1 (0-0.7) k/uL Basophils # 0.0 (0-0.2) k/uL PT 10.5 (9.0-12.0) sec INR 1.0 (<1.2) APTT 27.0 (22.0-30.0) sec Sodium 138 (137-145) mmol/L Potassium 3.1 L (3.5-5.1) mmol/L Chloride 98 (98-107) mmol/L Carbon Dioxide 29 (22-30) mmol/L Anion Gap 11 mmol/L BUN 34 H (7-17) mg/dL Creatinine 1.60 H (0.52-1.04) mg/dL Est GFR (CKD-EPI)AfAm 41 (>60 ml/min/1.73 sqM) Est GFR (CKD-EPI)NonAf 35 (>60 ml/min/1.73 sqM) Glucose 97 (74-99) mg/dL Calcium 9.0 (8.4-10.2) mg/dL Magnesium 2.3 (1.6-2.3) mg/dL Total Bilirubin 0.3 (0.2-1.3) mg/dL AST 24 (14-36) U/L ALT 25 (4-34) U/L Alkaline Phosphatase 69 (38-126) U/L Troponin I (0.000-0.034) ng/mL Total Protein 7.3 (6.3-8.2) g/dL Albumin 4.5 (3.5-5.0) g/dL 08/26/22 Range/Units 20:30 WBC (3.8-10.6) k/uL RBC (3.80-5.40) m/uL Hgb (11.4-16.0) gm/dL Hct (34.0-46.0) % MCV (80.0-100.0) fL MCH (25.0-35.0) pg MCHC (31.0-37.0) g/dL RDW (11.5-15.5) % Plt Count (150-450) k/uL MPV Neutrophils % % Lymphocytes % % Monocytes % % Eosinophils % % Basophils % % Neutrophils # (1.3-7.7) k/uL Lymphocytes # (1.0-4.8) k/uL Monocytes # (0-1.0) k/uL Eosinophils # (0-0.7) k/uL Basophils # (0-0.2) k/uL PT (9.0-12.0) sec INR (<1.2) APTT (22.0-30.0) sec Sodium (137-145) mmol/L Potassium (3.5-5.1) mmol/L Chloride (98-107) mmol/L Carbon Dioxide (22-30) mmol/L Anion Gap mmol/L BUN (7-17) mg/dL Creatinine (0.52-1.04) mg/dL Est GFR (CKD-EPI)AfAm (>60 ml/min/1.73 sqM) Est GFR (CKD-EPI)NonAf (>60 ml/min/1.73 sqM) Glucose (74-99) mg/dL Calcium (8.4-10.2) mg/dL Magnesium (1.6-2.3) mg/dL Total Bilirubin (0.2-1.3) mg/dL AST (14-36) U/L ALT (4-34) U/L Alkaline Phosphatase (38-126) U/L Troponin I <0.012 (0.000-0.034) ng/mL Total Protein (6.3-8.2) g/dL Albumin (3.5-5.0) g/dL Disposition <Jon Perdomo - Last Filed: 08/26/22 21:05> Is patient prescribed a controlled substance at d/c from ED?: No Time of Disposition: 01:00 Decision to Admit Reason: Admit from EC Decision Date: 08/27/22 Decision Time: 01:00 <Linda Moreno - Last Filed: 08/27/22 05:24> Clinical Impression: Hypokalemia, Seizure-like activity, Chest pain Disposition: ADMITTED IP TO THIS [facility] Condition: Stable
[2022-08-26] MEDS ORDERED: HYDROmorphone 0.5 MG/0.5 ML SYRINGE IVP STA ×2 (20:36→23:08)
[2022-08-26 21:19] LABS: Basophils % (A) 0 %; Eosinophils # (A) 0.1 k/uL (0-0.7); Eosinophils % (A) 1 %; HGB 13.4 gm/dL (11.4-16.0); Lymphocytes # (A) 1.1 k/uL (1.0-4.8); Lymphocytes % (A) 16 %; MCH 30.2 pg (25.0-35.0); MCHC 34.4 g/dL (31.0-37.0); Mean Platelet Volume 8.5; Monocytes # (A) 0.5 k/uL (0-1.0); Monocytes % (A) 7 %; Neutrophils # (A) 5.2 k/uL (1.3-7.7); Neutrophils % (A) 72 %; Platelet Count 237 k/uL (150-450); RBC 4.44 m/uL (3.80-5.40); RDW 13.9 % (11.5-15.5); WBC 7.1 k/uL (3.8-10.6)
[2022-08-26 21:20] LABS: MCV 87.9 fL (80.0-100.0)
[2022-08-26 21:26] LABS: Prothrombin Time 10.5 sec (9.0-12.0)
[2022-08-26 21:31] LABS: Albumin 4.5 g/dL (3.5-5.0); Magnesium 2.3 mg/dL (1.6-2.3); Potassium 3.1 mmol/L (3.5-5.1); Total Bilirubin 0.3 mg/dL (0.2-1.3); Total Protein 7.3 g/dL (6.3-8.2)
[2022-08-26] MEDS ORDERED: LORazepam 2 MG/ML INJ IV STA (23:49)
--- NOTE | 2022-08-27 00:19 | CT ---
EXAM: CT Angiography Chest With Intravenous Contrast CLINICAL HISTORY: suspect aortic dissection TECHNIQUE: Axial computed tomographic angiography images of the chest with intravenous contrast. CTDI is 15.1 mGy and DLP is 1002 mGy-cm. This CT exam was performed using one or more of the following dose reduction techniques: automated exposure control, adjustment of the mA and/or kV according to patient size, and/or use of iterative reconstruction technique. MIP reconstructed images were created and reviewed. COMPARISON: No relevant prior studies available. FINDINGS: Pulmonary arteries: Evaluation of the pulmonary arteries is somewhat limited by respiratory artifact. No large/central pulmonary embolism. The main pulmonary artery is dilated, measuring 3.6 cm, greater than the adjacent ascending aorta. Aorta: The thoracic aorta is normal in caliber with the mid ascending aorta measuring 3.3 cm. The aortic arch and descending aorta are normal in caliber. No dissection. No intimal wall abnormality identified on precontrast imaging. Performed earlier. Great vessels of aortic arch: There is a normal branching pattern of the proximal great vessels which are tortuous but widely patent. Lungs: Diminished lung volumes with curvilinear changes and scattered areas of increased attenuation. No mass. Pleural space: Unremarkable. No significant effusion. No pneumothorax. Heart: Cardiomegaly. Tricuspid valve replacement. Mild pericardial effusion. Bones/joints: No acute fracture. No dislocation. Soft tissues: Unremarkable. Lymph nodes: Unremarkable. No enlarged lymph nodes. Tubes, lines and devices: An implanted cardiac monitoring device is noted in the superficial soft tissues of the left anterior chest. IMPRESSION: 1. The thoracic aorta is normal in caliber with the mid ascending aorta measuring 3.3 cm. The aortic arch and descending aorta are normal in caliber. No dissection. No intimal wall abnormality identified on precontrast imaging. Performed earlier. 2. Evaluation of the pulmonary arteries is somewhat limited by respiratory artifact. No large/central pulmonary embolism. The main pulmonary artery is dilated, measuring 3.6 cm, greater than the adjacent ascending aorta. Findings suggest pulmonary hypertension. 3. Diminished lung volumes with curvilinear changes and scattered areas of increased attenuation. Favor subsegmental atelectasis over asymmetric edema. Please correlate clinically. No pleural effusion or pneumothorax. EXAM: CT Angiography Abdomen and Pelvis With Intravenous Contrast CLINICAL HISTORY: suspect aortic dissection TECHNIQUE: Axial computed tomographic angiography images of the abdomen and pelvis with intravenous contrast. CTDI is 15.1 mGy and DLP is 1002 mGy-cm. This CT exam was performed using one or more of the following dose reduction techniques: automated exposure control, adjustment of the mA and/or kV according to patient size, and/or use of iterative reconstruction technique. MIP reconstructed images were created and reviewed. COMPARISON: No relevant prior studies available. FINDINGS: VASCULATURE: Aorta: The abdominal aorta is normal in caliber without dissection or aneurysm. No intimal wall abnormality identified on precontrast imaging performed earlier. No acute periaortic abnormality identified. Celiac trunk and mesenteric arteries: No acute findings. No occlusion or significant stenosis. Renal arteries: Critical ostial stenosis is noted involving the right renal artery. The left renal artery is widely patent. Iliac arteries: No acute findings. No occlusion or significant stenosis. Lung bases: For findings regarding the lung bases, please see the CT report of the chest performed concurrently. ABDOMEN: Liver: Unremarkable. No mass. Gallbladder and bile ducts: The common bile duct is dilated, measuring 12 mm. No intrahepatic biliary dilatation. Cholecystectomy. Pancreas: Unremarkable. No ductal dilation. No mass. Spleen: Unremarkable. No splenomegaly. Adrenals: Unremarkable. No mass. Kidneys and ureters: The right kidney is atrophic in size measuring only 5.7 cm in length. Left kidney is normal in caliber. Both kidneys demonstrate normal enhancement. Subcentimeter nephrolithiasis noted in the mid to inferior pole of the left kidney. No hydronephrosis. Stomach and bowel: No bowel obstruction. Scattered diverticulosis without definitive diverticulitis. No definite mucosal abnormality, accounting for regions of decompression. PELVIS: Appendix: No findings to suggest acute appendicitis. Bladder: Unremarkable. No mass. Reproductive: Status post hysterectomy. ABDOMEN and PELVIS: Intraperitoneal space: Unremarkable. No significant fluid collection. No free air. Bones/joints: Posterior fusion noted bilaterally at L5-S1. Multilevel disc spondylosis throughout the lumbar spine, most notable at L3-4 and L4- 5. No acute osseous abnormality. No dislocation. Soft tissues: Unremarkable. Lymph nodes: Unremarkable. No enlarged lymph nodes. IMPRESSION: 1. The abdominal aorta is normal in caliber without dissection or aneurysm. No intimal wall abnormality identified on precontrast imaging performed earlier. No acute periaortic abnormality identified. 2. The common bile duct is dilated, measuring 12 mm. No intrahepatic biliary dilatation. Suspect normal variation postcholecystectomy. Please correlate with bilirubin levels. 3. Critical ostial stenosis is noted involving the right renal artery. The left renal artery is widely patent. Asymmetric size of the right kidney, smaller in size measuring only 5.7 cm in length. No abnormal enhancement or hydronephrosis of the kidneys. 4. No bowel obstruction. Scattered diverticulosis without definitive diverticulitis. No definite mucosal abnormality, accounting for regions of decompression. No free intraperitoneal fluid or pneumoperitoneum.
[2022-08-27] MEDS ORDERED: NALOXONE 0.4 MG/ML 1 ML VIAL IV PRN (01:00)
[2022-08-27] MEDS ORDERED: POTASSIUM CHLORIDE ER 20 MEQ TAB.ER PO STA (01:01)
[2022-08-27] MEDS ORDERED: POTASSIUM CHLORIDE 20 MEQ in WATER FOR INJECTION 1 100ML.BAG IVPB STA (01:01)
[2022-08-27] MEDS ORDERED: HYDROmorphone 0.5 MG/0.5 ML SYRINGE IVP STA (05:05)
[2022-08-27] MEDS ORDERED: diphenhydrAMINE 50 MG/ML 1 ML VIAL IVP STA (05:48)
[2022-08-27] MEDS ORDERED: BUMETANIDE 1 MG TAB PO SCH ×2 (09:00→21:00)
[2022-08-27] MEDS ORDERED: SPIRONOLACTONE 25 MG TAB PO SCH (09:00)
[2022-08-27] MEDS ORDERED: METOPROLOL SUCCINATE (ER) 25 MG TAB.ER.24H PO SCH (09:00)
[2022-08-27] MEDS ORDERED: APIXABAN 5 MG TAB PO SCH (09:00)
--- NOTE | 2022-08-27 10:21 | P.CRDCN ---
History of Present Illness History of present illness: HISTORY OF PRESENT ILLNESS: This is a 57 year old female with a past medical history significant for tricuspid valve repair x 2, bacterial endocarditis, pulmonary embolism, seizure disorder, permanent pacemaker implantation secondary to complete heart block, lupus, antiphospholipid antibody syndrome, and spinal stenosis. Patient follows in the office with Dr. Hanson. We have been asked to see the patient in consultation for chest pain. Patient examined at the bedside. Patient states the past few weeks her blood pressure has been elevated. She states is unusual for her as she used to have hypotension and was taking Midodrine. She states her blood pressure readings recently have been higher than 100 diastolic. She states that she had appointment in the pain clinic recently was also found to have elevated blood pressure at that time. The patient states that she has heart palpitations, shortness of breath, and chest tightness with ambulation. At rest, she denies any of the symptoms. She states that her blood pressure has been elevated since her seizure medications were recently changed. * EKG reveals sinus mechanism with no signs of acute ischemia * Laboratory data: WBC 7.1. Hemoglobin 13.4. Platelet count 237. Sodium 138. Potassium 3.1. BUN 34. Creatine 1.60. Magnesium 2.3. Troponin negative 2 * Current home cardiac medications include Eliquis 5mg BID, Lipitor 40 mg at night, Bumex 2 mg the morning and 1 mg in the afternoon, spironolactone 50 mg twice a day * Most recent echocardiogram obtained in May 2022 reveals ejection fraction 55%, mild mitral regurgitation, normally functioning prosthetic tricuspid valve, mild TR. * Patient underwent a BE remain stress test in May 2022 which did not reveal evidence of ischemia REVIEW OF SYSTEMS: At the time of my exam: CONSTITUTIONAL: Denies fever or chills. HEENT: Denies blurred vision, vision changes, or eye pain. Denies hemoptysis CARDIOVASCULAR: Denies chest pain. Denies orthopnea. Denies PND. Denies palpitations RESPIRATORY: Denies shortness of breath. GASTROINTESTINAL: Denies abdominal pain. Denies nausea or vomiting. HEMATOLOGIC: Denies bleeding disorders. GENITOURINARY: Denies any blood in urine. SKIN: Denies pruitis. Denies rash. PHYSICAL EXAM: VITAL SIGNS: Reviewed. GENERAL: Well-developed in no acute distress. HEENT: Head is normocephalic. Pupils are equal, round. Sclerae anicteric. Mucous membranes of the mouth are moist. Neck supple. No JVD or thyromegaly LUNGS: Respirations even and unlabored. Lungs essentially clear to auscultation bilaterally. HEART: Regular rate and rhythm. S1 and S2 heard. ABDOMEN: Soft. Nondistended. Nontender. EXTREMITIES: Normal range of motion. No clubbing or cyanosis. Peripheral pulses intact. No lower extremity edema NEUROLOGIC: Awake and alert. Oriented x 3. ASSESSMENT: Hypertension, elevated at home, however blood pressures have been well controlled in the hospital Chest pain, troponins negative 2 History of permanent pacemaker implantation secondary to complete heart block History of PE Chronic kidney disease History of tricuspid valve repair 2 History of bacterial endocarditis History of seizure disorder History of antiphospholipid antibody syndrome Spinal stenosis PLAN: An acute coronary event has been ruled out Add metoprolol succinate 25 mg daily Resume additional home cardiac medications Advised patient to no longer take Midodrine as her BP has been elevated at home Patient may be discharged home this afternoon and follow up in the office with Dr. Hanson Nurse practitioner note has been reviewed by physician. Signing provider agrees with the documented findings, assessment, and plan of care. 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 for low K+ History of Any Multi-Drug Resistant Organisms: C-DIFF Date of last positivie culture/infection: 2021 MDRO Source:: Stool Past Surgical History: Back Surgery, Breast Surgery, Cardiac Valve Replacement, Section, Cholecystectomy, Hysterectomy, Pacemaker Additional Past Surgical History / Comment(s): pacemaker d/t bradycardia/hypotension with last one place in 2013 in [place], [place], 3 lower back surgeries, bilateral breast reduction. 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 Past Anesthesia/Blood Transfusion Reactions: No Reported Reaction Type of Cardiac Device: Permanent Pacemaker, Unknown Device Placement Date:: 2012 Past Psychological History: Anxiety Smoking Status: Never smoker Past Alcohol Use History: None Reported Past Drug Use History: None Reported - Past Family History Mother Additional Family Medical History / Comment(s): Mother at the age of 49 yrs after surgery for silicon breast implants with a leak that caused ARDS and DIC per pt Father Family Medical History: Cancer, Hyperlipidemia, Hypertension Additional Family Medical History / Comment(s): Father is a colon cancer survivor. Medications and Allergies Home Medications Medication Instructions Recorded Confirmed Type Atorvastatin [Lipitor] 40 mg PO HS 09/24/21 08/26/22 History Cholestyramine (with Sugar) 4 gm PO DAILY PRN 09/24/21 08/26/22 History [Cholestyramine Packet] Gabapentin 300 mg PO TID 09/24/21 08/26/22 History Sertraline [Zoloft] 200 mg PO DAILY 09/24/21 08/26/22 History Ubrogepant [Ubrelvy] 100 mg PO BID PRN 09/24/21 08/26/22 History rOPINIRole HCL [Requip] 2 mg PO HS 09/24/21 08/26/22 History Budesonide/Glycopyr/Formoterol 1 puff INHALATION RT-BID 03/16/22 08/26/22 History [Breztri Aerosphere Inhaler] Esomeprazole Magnesium [NexIUM] 40 mg PO DAILY 03/16/22 08/26/22 History HYDROcodone/APAP 7.5-325MG [[place] 1 tab PO BID PRN 03/16/22 08/26/22 History 7.5-325] Midodrine [ProAmatine] 5 mg PO PC-TID PRN 03/16/22 08/26/22 History Orphenadrine Citrate [Orphenadrine 100 mg PO HS PRN 03/16/22 08/26/22 History Citrate ER] Botox 200unit Injection 1 dose INJ Q84D 04/02/22 08/26/22 History Meclizine [Antivert] 12.5 mg PO Q8H PRN 04/02/22 08/26/22 History Potassium Chloride ER [K-Dur 20] 40 meq PO TID 30 Days #90 tab 04/16/22 08/26/22 Rx Diphenhydramine 50mg/Ml Vial 50 mg IM Q6H PRN 04/18/22 08/26/22 History Dicyclomine [Bentyl] 20 mg PO TID PRN #30 tablet 04/30/22 08/26/22 Rx Ondansetron Odt [Zofran ODT] 4 mg PO Q8HR PRN #12 tab 04/30/22 08/26/22 Rx Acetaminophen Tab [Tylenol] 650 mg PO Q6HR PRN tab 05/17/22 08/26/22 Rx Apixaban [Eliquis] 5 mg PO BID 05/29/22 08/26/22 History Spironolactone [Aldactone] 50 mg PO BID 06/11/22 08/26/22 History busPIRone HCl [Buspar] 5 mg PO BID 06/11/22 08/26/22 History Diclofenac Sodium Gel [Voltaren 4 gm TOPICAL QID PRN 06/21/22 08/26/22 History Gel] Bumetanide [BUMEX] 2 mg PO DAILY 06/24/22 08/26/22 History Hydrocortisone [Cortef] 10 mg PO BID 90 Days #180 tab 07/26/22 08/26/22 Rx Zonisamide [Zonegran] 100 mg PO Q12HR 30 Days #60 cap 07/26/22 08/26/22 Rx Bumetanide [Bumex] 1 mg PO HS 08/26/22 08/26/22 History Lidocaine 5% Patch [Lidoderm 5% 1 patch TOPICAL DAILY PRN 08/26/22 08/26/22 History Patch] Allergies Allergy/AdvReac Type Severity Reaction Status Date / Time Penicillins Allergy Severe Anaphylaxis Verified 08/26/22 20:15 vancomycin Allergy Severe Swelling Verified 08/26/22 20:15 in lips clindamycin Allergy Anaphylaxis Verified 08/26/22 20:15 Influenza Virus Vaccines Allergy Unknown Verified 08/26/22 20:15 latex Allergy Unknown Verified 08/26/22 20:15 morphine Allergy Unknown Verified 08/26/22 20:15 prochlorperazine Allergy Unknown Verified 08/26/22 20:15 [From Compazine] [id number] AdvReac Confusion, Verified 08/26/22 20:15 [From Emgality Pen] increased blood pressure metoclopramide [From Reglan] AdvReac Unknown Verified 08/26/22 20:15 Physical Exam Vitals: Vital Signs Temp Pulse Resp BP Pulse Ox 08/27/22 06:06 70 18 121/66 96 08/27/22 05:16 70 20 114/69 96 08/27/22 03:49 70 16 107/63 98 08/27/22 01:50 70 16 145/55 97 08/27/22 00:02 72 14 121/61 98 08/26/22 23:14 70 16 108/48 98 08/26/22 21:30 72 19 108/72 97 08/26/22 18:59 97.6 F 100 20 142/82 96 Intake and Output 08/26/22 08/27/22 08/27/22 22:59 06:59 14:59 Other: Weight 70.76 kg Results 08/26/22 20:30 08/26/22 20:30 Cardiac Enzymes 08/26/22 08/26/22 Range/Units 20:30 20:30 AST 24 (14-36) U/L Troponin I <0.012 (0.000-0.034) ng/mL Coagulation 08/26/22 Range/Units 20:30 PT 10.5 (9.0-12.0) sec APTT 27.0 (22.0-30.0) sec CBC 08/26/22 Range/Units 20:30 WBC 7.1 (3.8-10.6) k/uL RBC 4.44 (3.80-5.40) m/uL Hgb 13.4 (11.4-16.0) gm/dL Hct 39.0 (34.0-46.0) % Plt Count 237 (150-450) k/uL Comprehensive Metabolic Panel 08/26/22 Range/Units 20:30 Sodium 138 (137-145) mmol/L Potassium 3.1 L (3.5-5.1) mmol/L Chloride 98 (98-107) mmol/L Carbon Dioxide 29 (22-30) mmol/L BUN 34 H (7-17) mg/dL Creatinine 1.60 H (0.52-1.04) mg/dL Glucose 97 (74-99) mg/dL Calcium 9.0 (8.4-10.2) mg/dL AST 24 (14-36) U/L ALT 25 (4-34) U/L Alkaline Phosphatase 69 (38-126) U/L Total Protein 7.3 (6.3-8.2) g/dL Albumin 4.5 (3.5-5.0) g/dL Current Medications Generic Name Dose Route Start Last Admin Trade Name Freq PRN Reason Stop Dose Admin Naloxone HCl 0.2 mg 08/27/22 01:00 Naloxone 0.4 Mg/Ml 1 Ml Vial IV Q2M PRN Opioid Reversal Intake and Output 08/26/22 08/27/22 08/27/22 22:59 06:59 14:59 Other: Weight 70.76 kg 08/26/22 20:30 08/26/22 20:30
[2022-08-27] MEDS ORDERED: HYDROmorphone 0.5 MG/0.5 ML SYRINGE IVP PRN (11:13)
[2022-08-27] MEDS ORDERED: Acetaminophen-Codeine 300-30mg TAB PO PRN (11:14)
[2022-08-27 11:55] VITALS: RESP 16
[2022-08-27 14:08] VITALS: BP 111/68; PULSE 70
[2022-08-27] MEDS ORDERED: ATORVASTATIN 40 MG TAB PO SCH (21:00)
--- NOTE | 2022-08-28 00:10 | HP ---
HISTORY AND PHYSICAL Combined history and physical and discharge summary. CHIEF COMPLAINT: Chest pain, elevated heart rate, hypertension. HISTORY OF PRESENT ILLNESS: This is a 57-year-old woman with a past medical history of multiple medical problems including pulmonary embolism, antiphospholipid antibody syndrome, tricuspid valve repair, pseudoseizures, and apparent seizure disorder, being followed by Dr. Hassan in the outpatient setting, was having high blood pressure as well as elevated heart rate. The patient is taking midodrine for low blood pressure. Patient had some chest pains, so the patient came to [facility] yesterday, myocardial infarction ruled out. Cardiology saw the patient, recommended the patient to be discharged and followup outpatient. PAST MEDICAL HISTORY: Reviewed, include pulmonary embolism, rest of the history and rest of the chart is also reviewed. HOME MEDICATIONS: Reviewed include Requip, rest of the chart is also reviewed. ALLERGIES: Reviewed include penicillin, rest of the allergies reviewed. FAMILY HISTORY: History of hypertension, hyperlipidemia, rest of the history is reviewed. SOCIAL HISTORY: No history of smoking, alcohol, or THC. REVIEW OF SYSTEMS: A 14-point review is negative except as mentioned earlier. PHYSICAL EXAMINATION: VITAL SIGNS: Pulse is 70, blood pressure 110/70, and respirations 20. HEENT: Conjunctivae normal. NECK: No jugular venous distention. CARDIOVASCULAR: S1, S2 muffled. RESPIRATIONS: Clear to auscultation. ABDOMEN: Soft, nontender. LEGS: No edema, no swelling. NERVOUS SYSTEM: No focal deficits. LABORATORY DATA: Noted. ASSESSMENT: 1. Chest pain, possible unstable angina. 2. Hypertension. 3. Tachycardia. 4. History of pulmonary embolism. 5. History of antiphospholipid antibody syndrome. 6. History of tricuspid valve repair. 7. History of pacemaker. 8. History of C diff. 9. History of multiple medical problems. RECOMMENDATIONS AND DISCUSSION: This 57-year-old woman presented with multiple complex medical issues. 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 I would recommend the patient be discharged and follow up outpatient setting with Dr. Hassan and cardiology closely for possible outpatient stress test. Otherwise, midodrine may be discontinued per Cardiology recommendations and because of elevated blood pressure also. See the medication reconciliation sheet for further information. Further recommendations to follow. MMODL / IJN: [id number] /
== END 2022-08-27 15:45 | disposition home or self-care (01) ==
LOC: EC 18:58 → 6NMEDSUR 08-27 01:02
PROVIDERS: ADMIT Family Medicine; ATTEND Family Medicine
DX: R07.89 Other chest pain (principal); I12.9 Hypertensive chronic kidney disease with stage 1 through stage 4 chronic kidney disease, or unspecified chronic kidney disease; N18.30 Chronic kidney disease, stage 3 unspecified; D68.61 Antiphospholipid syndrome; R00.0 Tachycardia, unspecified; G40.909 Epilepsy, unspecified, not intractable, without status epilepticus; G43.909 Migraine, unspecified, not intractable, without status migrainosus; E87.6 Hypokalemia; I44.2 Atrioventricular block, complete; E78.5 Hyperlipidemia, unspecified; M48.00 Spinal stenosis, site unspecified; L88 Pyoderma gangrenosum; G89.29 Other chronic pain; M54.2 Cervicalgia; M54.9 Dorsalgia, unspecified; E23.7 Disorder of pituitary gland, unspecified; K57.90 Diverticulosis of intestine, part unspecified, without perforation or abscess without bleeding; G25.81 Restless legs syndrome; F41.9 Anxiety disorder, unspecified; I08.1 Rheumatic disorders of both mitral and tricuspid valves; I95.9 Hypotension, unspecified; Z79.51 Long term (current) use of inhaled steroids; Z79.01 Long term (current) use of anticoagulants; Z79.899 Other long term (current) drug therapy; Z88.5 Allergy status to narcotic agent; Z88.0 Allergy status to penicillin; Z88.7 Allergy status to serum and vaccine; Z88.8 Allergy status to other drugs, medicaments and biological substances; Z88.1 Allergy status to other antibiotic agents; Z91.040 Latex allergy status; Z16.24 Resistance to multiple antibiotics; Z95.0 Presence of cardiac pacemaker; Z86.711 Personal history of pulmonary embolism; Z95.3 Presence of xenogenic heart valve; Z86.79 Personal history of other diseases of the circulatory system; Z90.49 Acquired absence of other specified parts of digestive tract; Z90.710 Acquired absence of both cervix and uterus; Z98.891 History of uterine scar from previous surgery; Z98.890 Other specified postprocedural states; Z82.49 Family history of ischemic heart disease and other diseases of the circulatory system; Z83.49 Family history of other endocrine, nutritional and metabolic diseases; Z80.0 Family history of malignant neoplasm of digestive organs
CPT/HCPCS: 96376 ×2; 96361; 96365; 96366; 96375 ×2; 99285; 36415; 93005; 80053; 83735; 84484 ×2; 85025; 85610; 85730; 71275; 74174; G0378; J2060; J1200; J3480; J1642; J1170 ×2; Q9967

== ENCOUNTER → 2022-08-31 | Outpatient (CLI) | payer BC, MEDICARE ==
[2022-08-31 17:45] LABS: Potassium 4.3 mmol/L (3.5-5.1)
== END | disposition home or self-care (01) ==
LOC: LABWHC1 16:13
PROVIDERS: ATTEND Family Medicine
DX: E87.6 Hypokalemia (principal); M51.36 Other intervertebral disc degeneration, lumbar region
CPT/HCPCS: 36415; 80051; 82565; 84520

== ENCOUNTER 2022-09-09 03:40 | Observation (INO) | payer BC, MEDICARE ==
[2022-09-09] MEDS ORDERED: ASPIRIN 81 MG PO STA (03:55)
[2022-09-09] MEDS ORDERED: NITROGLYCERIN SL TABS 0.4 MG TAB SUBLINGUAL STA (03:55)
--- NOTE | 2022-09-09 04:02 | ED ---
General Adult HPI - General Chief complaint: Chest Pain Stated complaint: chest pain Time Seen by Provider: 09/09/22 03:55 Source: patient, RN notes reviewed, old records reviewed Mode of arrival: wheelchair Limitations: no limitations - History of Present Illness Initial comments: Patient is a 57-year-old female with past medical history remarkable for PEs, antiphospholipid syndrome, cardiac pacemaker, chronic hypokalemia, seizure, pseudoseizure, tricuspid valve repair x2, chest pains who presents emergency Department complaining of chest pain. States it started shortly prior to arrival. Took 3 baby aspirin's at home but did not have before. States the pain as substernal, with radiation towards her left shoulder and jaw. Denies any shortness of breath with it. Denies any nausea or vomiting with it. States she did become somewhat diaphoretic when it started. States this is like previous episodes of chest pain she has had when they discovered that she has low potassium. He is compliant with her blood thinning medication. She is con cerned regarding her heart. No history of cardiac stents. Presents for further evaluation at this time. Was recently admitted for similar complaints in July 2022, and cleared by cardiology for outpatient follow-up. - Related Data Home Medications Medication Instructions Recorded Confirmed Atorvastatin [Lipitor] 40 mg PO HS 09/24/21 09/03/22 Cholestyramine (with Sugar) 4 gm PO DAILY PRN 09/24/21 09/03/22 [Cholestyramine Packet] Gabapentin 300 mg PO TID 09/24/21 09/03/22 Sertraline [Zoloft] 200 mg PO DAILY 09/24/21 09/03/22 Ubrogepant [Ubrelvy] 100 mg PO BID PRN 09/24/21 09/03/22 rOPINIRole HCL [Requip] 2 mg PO HS 09/24/21 09/03/22 Budesonide/Glycopyr/Formoterol 1 puff INHALATION RT-BID 03/16/22 09/03/22 [Breztri Aerosphere Inhaler] Esomeprazole Magnesium [NexIUM] 40 mg PO DAILY 03/16/22 09/03/22 HYDROcodone/APAP 7.5-325MG [[place] 1 tab PO BID PRN 03/16/22 09/03/22 7.5-325] Orphenadrine Citrate [Orphenadrine 100 mg PO HS PRN 03/16/22 09/03/22 Citrate ER] Botox 200unit Injection 1 dose INJ Q84D 04/02/22 09/03/22 Meclizine [Antivert] 12.5 mg PO Q8H PRN 04/02/22 09/03/22 Diphenhydramine 50mg/Ml Vial 50 mg IM Q6H PRN 04/18/22 09/03/22 Apixaban [Eliquis] 5 mg PO BID 05/29/22 09/03/22 Spironolactone [Aldactone] 50 mg PO BID 06/11/22 09/03/22 busPIRone HCl [Buspar] 5 mg PO BID 06/11/22 09/03/22 Diclofenac Sodium Gel [Voltaren 4 gm TOPICAL QID PRN 06/21/22 09/03/22 Gel] Bumetanide [BUMEX] 2 mg PO DAILY 06/24/22 09/03/22 Bumetanide [BUMEX] 1 mg PO HS 08/26/22 09/03/22 Lidocaine 5% Patch [Lidoderm 5% 1 patch TOPICAL DAILY PRN 08/26/22 09/03/22 Patch] Previous Rx's Medication Instructions Recorded Potassium Chloride ER [K-Dur 20] 40 meq PO TID 30 Days #90 tab 04/16/22 Dicyclomine [Bentyl] 20 mg PO TID PRN #30 tablet 04/30/22 Ondansetron Odt [Zofran ODT] 4 mg PO Q8HR PRN #12 tab 04/30/22 Acetaminophen Tab [Tylenol] 650 mg PO Q6HR PRN tab 05/17/22 Hydrocortisone [Cortef] 10 mg PO BID 90 Days #180 tab 07/26/22 Zonisamide [Zonegran] 100 mg PO Q12HR 30 Days #60 cap 07/26/22 Metoprolol Succinate (ER) [Toprol 25 mg PO DAILY #30 tab 08/27/22 XL] Allergies Allergy/AdvReac Type Severity Reaction Status Date / Time Penicillins Allergy Severe Anaphylaxis Verified 09/09/22 03:41 vancomycin Allergy Severe Swelling Verified 09/09/22 03:41 in lips clindamycin Allergy Anaphylaxis Verified 09/09/22 03:41 Influenza Virus Vaccines Allergy Unknown Verified 09/09/22 03:41 latex Allergy Unknown Verified 09/09/22 03:41 morphine Allergy Unknown Verified 09/09/22 03:41 prochlorperazine Allergy Unknown Verified 09/09/22 03:41 [From Compazine] [id number] AdvReac Confusion, Verified 09/09/22 03:41 [From Emgality Pen] increased blood pressure metoclopramide [From Reglan] AdvReac Unknown Verified 09/09/22 03:41 Review of Systems ROS Statement: Those systems with pertinent positive or pertinent negative responses have been documented in the HPI. Review of Systems: CONST: Denies fever EYES: Denies blurry vision ENT: Denies nasal congestion C/V: Endorses chest pain RESP: Denies shortness of breath GI: Denies abdominal pain : Denies dysuria SKIN: Denies rash. MSK: Denies joint pain. NEURO: Denies headache ROS Other: All systems not noted in ROS Statement are negative. 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 for low K+ History of Any Multi-Drug Resistant Organisms: C-DIFF Date of last positivie culture/infection: 2021 MDRO Source:: Stool Past Surgical History: Back Surgery, Breast Surgery, Cardiac Valve Replacement, Section, Cholecystectomy, Heart Catheterization, Hysterectomy, Pacemaker Additional Past Surgical History / Comment(s): pacemaker d/t bradycardia/hypotension with last one place in 2013 in [place], [place], 3 lower back surgeries, bilateral breast reduction. 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 Past Anesthesia/Blood Transfusion Reactions: No Reported Reaction Type of Cardiac Device: Permanent Pacemaker, Unknown Device Placement Date:: 2012 Past Psychological History: Anxiety Smoking Status: Former smoker Past Alcohol Use History: None Reported Past Drug Use History: None Reported - Past Family History Mother Additional Family Medical History / Comment(s): Mother at the age of 49 yrs after surgery for silicon breast implants with a leak that caused ARDS and DIC per pt Father Family Medical History: Cancer, Hyperlipidemia, Hypertension Additional Family Medical History / Comment(s): Father is a colon cancer survi vor. General Exam - General Exam Comments Initial Comments: General: Appears in mild distress secondary to chest pain. HEAD: Normal with no signs of head trauma. EYES: PERRLA, EOMI, conjunctiva normal, no discharge. ENT: Hearing grossly intact, normal oropharynx. RESPIRATORY: Clear breath sounds bilaterally. No wheezes, rales, or rhonchi. C/V: Regular rate and rhythm. S1 and S2 auscultated, no edema, peripheral pulses 2+ and intact throughout. Vascular access port and left upper extremity. ABD: Abd is soft, nontender, nondistended EXT: Normal range of motion, no obvious deformity SKIN: No rashes or lesions observed on exposed skin. NEURO: Alert and oriented x 4. Limitations: no limitations Course Vital Signs 09/09/22 09/09/22 09/09/22 03:42 04:00 04:26 Temperature 97.7 F Pulse Rate 70 70 70 Respiratory 18 20 20 Rate Blood Pressure 119/77 119/76 100/69 O2 Sat by Pulse 98 98 94 L Oximetry Medical Decision Making - Medical Decision Making Was pt. sent in by a medical professional or institution ([facility], [employer], urgent care, hospital, or group home...) When possible be specific @ -No Did you speak to anyone other than the patient for history (EMS, parent, family, police, friend...)? What history was obtained from this source @ -No Did you review nursing and triage notes (agree or disagree)? Why? @ -I reviewed and agree with nursing and triage notes Were old charts reviewed (outside hosp., previous admission, EMS record, old EKG, old radiological studies, urgent care reports/EKG's, group home records)? Report findings @ -Charts reviewed from recent admission in July 2022. Differential Diagnosis (chest pain, altered mental status, abdominal pain women, abdominal pain men, vaginal bleeding, weakness, fever, dyspnea, syncope, headache, dizziness, GI bleed, back pain, seizure, CVA, palpatations, mental health, musculoskeletal)? @ -Differential Chest Pain: Stable Angina, Unstable Angina, STEMI, NSTEMI Aortic Dissection, Pneumothorax, M usculoskeletal, Esophageal Spasm GERD, Cholecystitis, Pancreatitis, Zoster, this is not meant to be an all-inclusive list. EKG interpreted by me (3pts min.). @ -As above X-rays interpreted by me (1pt min.). @ -Chest x-ray showed no obvious acute cardiopulmonary process. CT interpreted by me (1pt min.). @ -None done U/S interpreted by me (1pt. min.). @ -None done What testing was considered but not performed or refused? (CT, X-rays, U/S, labs)? Why? @ -None What meds were considered but not given or refused? Why? @ -None Did you discuss the management of the patient with other professionals (professionals i.e. , PA, FOLDING MACHINE FEEDER, lab, RT, psych nurse, social media community manager, shooter's helper, teacher, chief resource officer, case briefer)? Give summary @ -Discussed with Dr. Hassan who accepted the admission. Was smoking cessation discussed for >3mins.? @ -No Was critical care preformed (if so, how long)? @ -No Were there social determinants of health that impacted care today? How? (Homelessness, low income, unemployed, alcoholism, drug addiction, transportation, low edu. Level, literacy, decrease access to med. care, group home, rehab)? @ -No Was there de-escalation of care discussed even if they declined (Discuss DNR or withdrawal of care, Hospice)? DNR status @ -No What co-morbidities impacted this encounter? (DM, HTN, Smoking, COPD, CAD, Cancer, CVA, ARF, Chemo, Hep., AIDS, mental health diagnosis, sleep apnea, morbid obesity)? @ -None Was patient admitted / discharged? Hospital course, mention meds given and route, prescriptions, significant lab abnormalities, going to OR and other pertinent info. @ -Based on the patient's presentation and physical exam, presents with acute on chronic chest pain. Is somewhat typical in nature. We will obtain cardiopulmonary labs. She took 3 out of 4 baby aspirin at home and she will be administered a fourth tab for a total 324 mg of aspirin. We will attempt nitroglycerin tablets for pain. Vital signs within acceptable limits. Patient was in agreement with this plan. EKG shows no signs of acute ischemia.Patient's laboratory studies returned remarkable for a hypokalemia at 2.9 and troponin is indeterminate at 0.016. D- dimer is within normal limits. Elevated BUN/creatinine setting of CK D and appears to be stable. Nitro glycerin tablets did minimal effect on patient's pain. Because her to have a headache. Therefore we will administer pain medications at this time. We discussed her workup. We will replace potassium. Patient's heart score is moderate at 3-4. We will admit for observation, troponin trending, as well as potassium replenishment. She was in agreement this plan. Cardiology is co nsulted. I spoke with Dr. Hassan who accepted the admission. We will restart the patient's home anticoagulation. Undiagnosed new problem with uncertain prognosis? @ -No Drug Therapy requiring intensive monitoring for toxicity (Heparin, Nitro, Insulin, Cardizem)? @ -No Were any procedures done? @ -No Diagnosis/symptom? @ -Chest pain, hypokalemia Acute, or Chronic, or Acute on Chronic? @ -Acute on chronic Uncomplicated (without systemic symptoms) or Complicated (systemic symptoms)? @ -Complicated Side effects of treatment? @ -none Exacerbation, Progression, or Severe Exacerbation] @ -no Poses a threat to life or bodily function? @ -no - Lab Data Result diagrams: 09/09/22 04:40 09/09/22 04:40 Lab Results 09/09/22 09/09/22 09/09/22 Range/Units 04:40 04:40 04:40 WBC 6.8 (3.8-10.6) k/uL RBC 4.19 (3.80-5.40) m/uL Hgb 12.5 (11.4-16.0) gm/dL Hct 37.6 (34.0-46.0) % MCV 89.8 (80.0-100.0) fL MCH 29.9 (25.0-35.0) pg MCHC 33.3 (31.0-37.0) g/dL RDW 13.9 (11.5-15.5) % Plt Count 266 (150-450) k/uL MPV 8.1 Neutrophils % 61 % Lymphocytes % 25 % Monocytes % 9 % Eosinophils % 2 % Basophils % 1 % Neutrophils # 4.1 (1.3-7.7) k/uL Lymphocytes # 1.7 (1.0-4.8) k/uL Monocytes # 0.6 (0-1.0) k/uL Eosinophils # 0.1 (0-0.7) k/uL Basophils # 0.0 (0-0.2) k/uL PT 10.8 (9.0-12.0) sec INR 1.0 (<1.2) APTT 28.0 (22.0-30.0) sec D-Dimer 0.18 (<0.60) mg/L FEU Sodium 137 (137-145) mmol/L Potassium 2.9 L (3.5-5.1) mmol/L Chloride 93 L (98-107) mmol/L Carbon Dioxide 33 H (22-30) mmol/L Anion Gap 11 mmol/L BUN 36 H (7-17) mg/dL Creatinine 1.51 H (0.52-1.04) mg/dL Est GFR (CKD-EPI)AfAm 44 (>60 ml/min/1.73 sqM) Est GFR (CKD-EPI)NonAf 38 (>60 ml/min/1.73 sqM) Glucose 74 (74-99) mg/dL Calcium 9.1 (8.4-10.2) mg/dL Magnesium 2.3 (1.6-2.3) mg/dL Total Bilirubin 0.2 (0.2-1.3) mg/dL AST 29 (14-36) U/L ALT 24 (4-34) U/L Alkaline Phosphatase 58 (38-126) U/L Troponin I (0.000-0.034) ng/mL NT-Pro-B Natriuret Pep pg/mL Total Protein 7.0 (6.3-8.2) g/dL Albumin 4.4 (3.5-5.0) g/dL 09/09/22 09/09/22 Range/Units 04:40 04:41 WBC (3.8-10.6) k/uL RBC (3.80-5.40) m/uL Hgb (11.4-16.0) gm/dL Hct (34.0-46.0) % MCV (80.0-100.0) fL MCH (25.0-35.0) pg MCHC (31.0-37.0) g/dL RDW (11.5-15.5) % Plt Count (150-450) k/uL MPV Neutrophils % % Lymphocytes % % Monocytes % % Eosinophils % % Basophils % % Neutrophils # (1.3-7.7) k/uL Lymphocytes # (1.0-4.8) k/uL Monocytes # (0-1.0) k/uL Eosinophils # (0-0.7) k/uL Basophils # (0-0.2) k/uL PT (9.0-12.0) sec INR (<1.2) APTT (22.0-30.0) sec D-Dimer (<0.60) mg/L FEU Sodium (137-145) mmol/L Potassium (3.5-5.1) mmol/L Chloride (98-107) mmol/L Carbon Dioxide (22-30) mmol/L Anion Gap mmol/L BUN (7-17) mg/dL Creatinine (0.52-1.04) mg/dL Est GFR (CKD-EPI)AfAm (>60 ml/min/1.73 sqM) Est GFR (CKD-EPI)NonAf (>60 ml/min/1.73 sqM) Glucose (74-99) mg/dL Calcium (8.4-10.2) mg/dL Magnesium (1.6-2.3) mg/dL Total Bilirubin (0.2-1.3) mg/dL AST (14-36) U/L ALT (4-34) U/L Alkaline Phosphatase (38-126) U/L Troponin I 0.016 (0.000-0.034) ng/mL NT-Pro-B Natriuret Pep 789 pg/mL Total Protein (6.3-8.2) g/dL Albumin (3.5-5.0) g/dL - EKG Data -: EKG Interpreted by Me EKG Comments: 12-lead Electrocardiogram Interpretation Note EKG was reviewed and interpreted by myself. 12-lead ECG performed at 0352 is interpreted by me as revealing atrial paced rhythm at a rate of 70 beats per minute. [place] is normal. MS interval is 170 ms, QRS duration 90 ms, QTc 445 ms. There were no acute ST or T wave abnormalities to suggest myocardial ischemia or injury. R wave progression across the precordium was satisfactory. By my interpretation this EKG is non-diagnostic for acute ischemia. Disposition Clinical Impression: Chest pain, Hypokalemia Disposition: ADMITTED IP TO THIS [facility] Condition: Stable Referrals: Nonstaff,Physician [REFERRING] - 1-2 days Time of Disposition: 05:21
[2022-09-09] MEDS ORDERED: ONDANSETRON 4 MG/2 ML VIAL IVP STA (04:41)
[2022-09-09 04:54] LABS: Basophils % (A) 1 %; Eosinophils # (A) 0.1 k/uL (0-0.7); Eosinophils % (A) 2 %; HCT 37.6 % (34.0-46.0); HGB 12.5 gm/dL (11.4-16.0); Lymphocytes # (A) 1.7 k/uL (1.0-4.8); Lymphocytes % (A) 25 %; MCH 29.9 pg (25.0-35.0); MCHC 33.3 g/dL (31.0-37.0); MCV 89.8 fL (80.0-100.0); Mean Platelet Volume 8.1; Monocytes # (A) 0.6 k/uL (0-1.0); Monocytes % (A) 9 %; Neutrophils # (A) 4.1 k/uL (1.3-7.7); Neutrophils % (A) 61 %; Platelet Count 266 k/uL (150-450); RBC 4.19 m/uL (3.80-5.40); RDW 13.9 % (11.5-15.5); WBC 6.8 k/uL (3.8-10.6)
[2022-09-09 05:05] LABS: Albumin 4.4 g/dL (3.5-5.0); Calcium 9.1 mg/dL (8.4-10.2); Magnesium 2.3 mg/dL (1.6-2.3); Potassium 2.9 mmol/L (3.5-5.1); Total Bilirubin 0.2 mg/dL (0.2-1.3)
[2022-09-09] MEDS ORDERED: POTASSIUM CHLORIDE ER 20 MEQ TAB.ER PO STA (05:06)
[2022-09-09 05:12] LABS: Prothrombin Time 10.8 sec (9.0-12.0)
[2022-09-09] MEDS ORDERED: ONDANSETRON 4 MG/2 ML VIAL IVP PRN (05:24)
[2022-09-09] MEDS ORDERED: NALOXONE 0.4 MG/ML 1 ML VIAL IV PRN (05:24)
[2022-09-09] MEDS ORDERED: HYDROcodone/APAP 7.5-325MG 1 EACH TAB PO PRN (05:26)
[2022-09-09] MEDS: POTASSIUM CHLORIDE 10 MEQ in WATER FOR INJECTION 1 100ML.BAG IVPB SCH ×4 (05:33→11:47)
--- NOTE | 2022-09-09 05:36 | XR ---
EXAM: XR Chest, 2 Views CLINICAL HISTORY: Chest pain. TECHNIQUE: Frontal and lateral views of the chest. COMPARISON: July 20, 2022. FINDINGS: Lungs: Unremarkable. No infiltration, atelectasis or mass density. Pleural space: Unremarkable. No pneumothorax. No pleural fluid. Heart: Unremarkable. No cardiomegaly. Mediastinum: Unremarkable. Bones/joints: Unremarkable. No acute abnormalities. Tubes, lines and devices: Stable implanted cardiac pacer. Stable left- sided central venous catheter with the tip in the upper right atrium. IMPRESSION: No acute findings in the chest.
[2022-09-09] MEDS ORDERED: fentaNYL (PF) 50 MCG/ML 2 ML AMP IVP STA (05:43)
[2022-09-09] MEDS: HYDROmorphone 1 MG/ML 1 ML SYRINGE IVP PRN ×4 (09:10→21:20)
--- NOTE | 2022-09-09 09:51 | P.CRDCN ---
History of Present Illness History of present illness: HISTORY OF PRESENT ILLNESS: This is a 57 year old female with a past medical history significant for tricuspid valve repair x 2, bacterial endocarditis, pulmonary embolism, seizure disorder, permanent pacemaker implantation secondary to complete heart block, lupus, antiphospholipid antibody syndrome, and spinal stenosis. Patient follows in the office with Dr. Hanson. We have been asked to see the patient in consultation for chest pain. Patient examined at the bedside. Patient presented to the hospital with a chief complaint of chest pain. The patient states that yesterday she took a walk and began to have chest pain. She states that the pain lasted for approximately one hour and then she took a pain pill at home and the pain resolved. She states she woke up in the middle of the night with chest pain that recurred again. She states the pain was in the middle of her chest and into her left arm and neck. She states that she has had chest pain like t his in the past when her potassium is low. The patient also reports shortness of breath with exertion for the past few weeks. She states that she was taking steroids on an outpatient basis that were prescribed by her PCP as she was being worked up for an autoimmune disease involving her kidneys. The patient states that she still having chest pain this morning. She states she received fentanyl which did not help with her pain and she is requesting Dilaudid. The pain is worse with deep inspiration and also with chest wall palpation. The patient denies any nicotine use or alcohol use. She states that she uses marijuana for her chronic back pain. * EKG reveals sinus mechanism with no signs of acute ischemia * Laboratory data: WBC 6.8. Hemoglobin 12.5. Platelet count 266. D-dimer 0.18. Sodium 137. Potassium 2.9. BUN 36. Creatinine 1.51. Troponin negative 2. ProBNP 789. * Current home cardiac medications include Eliquis 5mg BID, Lipitor 40 mg at night, Bumex 2 mg the morning and 1 mg in the afternoon, spironolactone 50 mg twice a day * Most recent echocardiogram obtained in May 2022 reveals ejection fraction 55%, mild mitral regurgitation, normally functioning prosthetic tricuspid valve, mild TR. * Patient underwent a Dobutamine stress test in May 2022 which did not reveal evidence of ischemia REVIEW OF SYSTEMS: At the time of my exam: CONSTITUTIONAL: Denies fever or chills. HEENT: Denies blurred vision, vision changes, or eye pain. Denies hemoptysis CARDIOVASCULAR: Denies chest pain. Denies orthopnea. Denies PND. Denies palp itations RESPIRATORY: Denies shortness of breath. GASTROINTESTINAL: Denies abdominal pain. Denies nausea or vomiting. HEMATOLOGIC: Denies bleeding disorders. GENITOURINARY: Denies any blood in urine. SKIN: Denies pruitis. Denies rash. PHYSICAL EXAM: VITAL SIGNS: Reviewed. GENERAL: Well-developed in no acute distress. HEENT: Head is normocephalic. Pupils are equal, round. Sclerae anicteric. Mucous membranes of the mouth are moist. Neck supple. No JVD or thyromegaly LUNGS: Respirations even and unlabored. Lungs essentially clear to auscultation bilaterally. HEART: Regular rate and rhythm. S1 and S2 heard. ABDOMEN: Soft. Nondistended. Nontender. EXTREMITIES: Normal range of motion. No clubbing or cyanosis. Peripheral pulses intact. No lower extremity edema NEUROLOGIC: Awake and alert. Oriented x 3. ASSESSMENT: Chest pain, troponins negative 3, atypical Hypokalemia History of permanent pacemaker implantation secondary to complete heart block History of PE Chronic kidney disease History of tricuspid valve repair 2 History of bacterial endocarditis History of seizure disorder Hypertension History of antiphospholipid antibody syndrome Spinal stenosis Chronic left PICC line, used for blood draws on an outpatient basis per patient PLAN: An acute coronary event has been ruled out Replace potassium. Recheck this afternoon at 1400 Resume home cardiac medications No further inpatient recommendations from a cardiac standpoint Patient may be discharged home this afternoon and follow up in the office with Dr. Hanson Nurse practitioner note has been reviewed by physician. Signing provider agrees with the documented findings, assessment, and plan of care. 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 for low K+ History of Any Multi-Drug Resistant Organisms: C-DIFF Date of last positivie culture/infection: 2021 MDRO Source:: Stool Past Surgical History: Back Surgery, Breast Surgery, Cardiac Valve Replacement, Section, Cholecystectomy, Heart Catheterization, Hysterectomy, Pacemaker Additional Past Surgical History / Comment(s): pacemaker d/t bradycardia/hypotension with last one place in 2013 in [place], [place], 3 lower back surgeries, bilateral breast reduction. 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 Past Anesthesia/Blood Transfusion Reactions: No Reported Reaction Type of Cardiac Device: Permanent Pacemaker, Unknown Device Placement Date:: 2012 Past Psychological History: Anxiety Smoking Status: Former smoker Past Alcohol Use History: None Reported Past Drug Use History: None Reported - Past Family History Mother Additional Family Medical History / Comment(s): Mother at the age of 49 yrs after surgery for silicon breast implants with a leak that caused ARDS and DIC per pt Father Family Medical History: Cancer, Hyperlipidemia, Hypertension Additional Family Medical History / Comment(s): Father is a colon cancer survivor. Medications and Allergies Home Medications Medication Instructions Recorded Confirmed Type Atorvastatin [Lipitor] 40 mg PO HS 09/24/21 09/09/22 History Cholestyramine (with Sugar) 4 gm PO DAILY PRN 09/24/21 09/09/22 History [Cholestyramine Packet] Gabapentin 300 mg PO TID 09/24/21 09/09/22 History Sertraline [Zoloft] 200 mg PO DAILY 09/24/21 09/09/22 History Ubrogepant [Ubrelvy] 100 mg PO BID PRN 09/24/21 09/09/22 History rOPINIRole HCL [Requip] 2 mg PO HS 09/24/21 09/09/22 History Budesonide/Glycopyr/Formoterol 1 puff INHALATION RT-BID 03/16/22 09/09/22 History [Breztri Aerosphere Inhaler] Esomeprazole Magnesium [NexIUM] 40 mg PO DAILY 03/16/22 09/09/22 History HYDROcodone/APAP 7.5-325MG [Trimble 1 tab PO BID PRN 03/16/22 09/09/22 History 7.5-325] Orphenadrine Citrate [Orphenadrine 100 mg PO HS PRN 03/16/22 09/09/22 History Citrate ER] Botox 200unit Injection 1 dose INJ Q84D 04/02/22 09/09/22 History Meclizine [Antivert] 12.5 mg PO Q8H PRN 04/02/22 09/09/22 History Potassium Chloride ER [K-Dur 20] 40 meq PO TID 30 Days #90 tab 04/16/22 09/09/22 Rx Diphenhydramine 50mg/Ml Vial 50 mg IM Q6H PRN 04/18/22 09/09/22 History Dicyclomine [Bentyl] 20 mg PO TID PRN #30 tablet 04/30/22 09/09/22 Rx Ondansetron Odt [Zofran ODT] 4 mg PO Q8HR PRN #12 tab 04/30/22 09/09/22 Rx Acetaminophen Tab [Tylenol] 650 mg PO Q6HR PRN tab 05/17/22 09/09/22 Rx Apixaban [Eliquis] 5 mg PO BID 05/29/22 09/09/22 History Spironolactone [Aldactone] 50 mg PO BID 06/11/22 09/09/22 History busPIRone HCl [Buspar] 5 mg PO BID 06/11/22 09/09/22 History Diclofenac Sodium Gel [Voltaren 4 gm TOPICAL QID PRN 06/21/22 09/09/22 History Gel] Bumetanide [BUMEX] 2 mg PO DAILY 06/24/22 09/09/22 History Hydrocortisone [Cortef] 10 mg PO BID 90 Days #180 tab 07/26/22 09/09/22 Rx Zonisamide [Zonegran] 100 mg PO Q12HR 30 Days #60 cap 07/26/22 09/09/22 Rx Bumetanide [BUMEX] 1 mg PO HS 08/26/22 09/09/22 History Lidocaine 5% Patch [Lidoderm 5% 1 patch TOPICAL DAILY PRN 08/26/22 09/09/22 History Patch] Metoprolol Succinate (ER) [Toprol 25 mg PO DAILY #30 tab 08/27/22 09/09/22 Rx XL] Allergies Allergy/AdvReac Type Severity Reaction Status Date / Time Penicillins Allergy Severe Anaphylaxis Verified 09/09/22 08:23 vancomycin Allergy Severe Swelling Verified 09/09/22 08:23 in lips clindamycin Allergy Anaphylaxis Verified 09/09/22 08:23 Influenza Virus Vaccines Allergy Unknown Verified 09/09/22 08:23 latex Allergy Unknown Verified 09/09/22 08:23 morphine Allergy Unknown Verified 09/09/22 08:23 prochlorperazine Allergy Unknown Verified 09/09/22 08:23 [From Compazine] galcanezumab-gnlm AdvReac Confusion, Verified 09/09/22 08:23 [From Emgality Pen] increased blood pressure metoclopramide [From Reglan] AdvReac Unknown Verified 09/09/22 08:23 Physical Exam Vitals: Vital Signs Temp Pulse Pulse Resp BP BP Pulse Ox 09/09/22 08:38 97.8 F 70 16 106/64 95 09/09/22 05:42 70 18 105/66 95 09/09/22 04:26 70 20 100/69 94 L 09/09/22 04:00 70 20 119/76 98 09/09/22 03:42 97.7 F 70 18 119/77 98 Intake and Output 09/08/22 09/09/22 09/09/22 22:59 06:59 14:59 Other: Weight 72.121 kg Results 09/09/22 04:40 09/09/22 04:40 Cardiac Enzymes 09/09/22 09/09/22 09/09/22 Range/Units 04:40 04:40 07:32 AST 29 (14-36) U/L Troponin I 0.016 0.017 (0.000-0.034) ng/mL Coagulation 09/09/22 Range/Units 04:40 PT 10.8 (9.0-12.0) sec APTT 28.0 (22.0-30.0) sec CBC 09/09/22 Range/Units 04:40 WBC 6.8 (3.8-10.6) k/uL RBC 4.19 (3.80-5.40) m/uL Hgb 12.5 (11.4-16.0) gm/dL Hct 37.6 (34.0-46.0) % Plt Count 266 (150-450) k/uL Comprehensive Metabolic Panel 09/09/22 Range/Units 04:40 Sodium 137 (137-145) mmol/L Potassium 2.9 L (3.5-5.1) mmol/L Chloride 93 L (98-107) mmol/L Carbon Dioxide 33 H (22-30) mmol/L BUN 36 H (7-17) mg/dL Creatinine 1.51 H (0.52-1.04) mg/dL Glucose 74 (74-99) mg/dL Calcium 9.1 (8.4-10.2) mg/dL AST 29 (14-36) U/L ALT 24 (4-34) U/L Alkaline Phosphatase 58 (38-126) U/L Total Protein 7.0 (6.3-8.2) g/dL Albumin 4.4 (3.5-5.0) g/dL Current Medications Generic Name Dose Route Start Last Admin Trade Name Freq PRN Reason Stop Dose Admin Hydrocodone Bitart/Acetaminophen 1 each 09/09/22 05:26 Hydrocodone/Apap 7.5-325mg 1 Each Tab PO BID PRN Pain Apixaban 5 mg 09/09/22 09:00 Apixaban 5 Mg Tab PO BID [facility] Protocol Atorvastatin Calcium 40 mg 09/09/22 21:00 Atorvastatin 40 Mg Tab PO HS [facility] Budesonide/Formoterol Fumarate 2 puff 09/09/22 08:00 Symbicort 160-4.5 Mcg Inhaler INHALATION RT-BID [facility] Bumetanide 1 mg 09/09/22 21:00 Bumetanide 1 Mg Tab PO HS [facility] Bumetanide 2 mg 09/09/22 09:00 Bumetanide 1 Mg Tab PO DAILY [facility] Buspirone HCl 5 mg 09/09/22 09:00 Buspirone Hcl 5 Mg Tab PO BID [facility] Gabapentin 300 mg 09/09/22 09:00 Gabapentin 300 Mg Cap PO TID [facility] Potassium Chloride 10 meq/ IV 100 mls @ 100 mls/hr 09/09/22 06:00 09/09/22 07:45 Solution IVPB 09/09/22 09:59 100 mls/hr Q1HR [facility] Administration Ipratropium Jay Em 0.5 mg 09/09/22 08:00 Ipratropium 0.5 Mg/2.5 Ml Nebu INHALATION RT-QID [facility] Metoprolol Succinate 25 mg 09/09/22 09:00 Metoprolol Succinate (Er) 25 Mg Tab.Er.24h PO DAILY [facility] Naloxone HCl 0.2 mg 09/09/22 05:24 Naloxone 0.4 Mg/Ml 1 Ml Vial IV Q2M PRN Opioid Reversal Ondansetron HCl 4 mg 09/09/22 05:24 Ondansetron 4 Mg/2 Ml Vial IVP Q8HR PRN Nausea And Vomiting Spironolactone 50 mg 09/09/22 09:00 Spironolactone 25 Mg Tab PO BID AS[facility] Intake and Output 09/08/22 09/09/22 09/09/22 22:59 06:59 14:59 Other: Weight 72.121 kg 09/09/22 04:40 09/09/22 04:40
[2022-09-09] MEDS: GABAPENTIN 300 MG CAP PO SCH ×3 (10:01→21:23)
[2022-09-09] MEDS: SPIRONOLACTONE 25 MG TAB PO SCH ×3 (10:02→20:37)
[2022-09-09] MEDS: busPIRone HCl 5 MG TAB PO SCH ×2 (10:03→20:37)
[2022-09-09] MEDS: APIXABAN 5 MG TAB PO SCH ×2 (10:03→20:37)
[2022-09-09] MEDS: METOPROLOL SUCCINATE (ER) 25 MG TAB.ER.24H PO SCH (10:03)
[2022-09-09] MEDS: SYMBICORT 160-4.5 MCG INHALER INHALATION SCH ×2 (11:13→18:25)
[2022-09-09] MEDS: IPRATROPIUM 0.5 MG/2.5 ML NEBU INHALATION SCH ×4 (11:13→18:25)
[2022-09-09] MEDS: BUMETANIDE 1 MG TAB PO SCH ×2 (13:42→20:47)
[2022-09-09] MEDS: diphenhydrAMINE 50 MG/ML 1 ML VIAL IVP PRN ×2 (15:00→21:19)
[2022-09-09] MEDS ORDERED: Ubrogepant [Ubrelvy] 100 MG Tablet PO PRN (16:51)
[2022-09-09] MEDS ORDERED: DICYCLOMINE 20 MG TAB PO PRN (16:51)
[2022-09-09] MEDS: HYDROCORTISONE 10 MG TAB PO SCH (20:36)
[2022-09-09] MEDS: ATORVASTATIN 40 MG TAB PO SCH (20:36)
[2022-09-09] MEDS: POTASSIUM CHLORIDE ER 20 MEQ TAB.ER PO SCH (20:37)
[2022-09-09] MEDS: ZONISAMIDE 100 MG CAP PO SCH (20:38)
[2022-09-09] MEDS ORDERED: diphenhydrAMINE 25 MG CAP PO PRN (23:50)
[2022-09-10] MEDS: methylPREDNISolone SOD SUCCI 125 MG/2 ML VIAL IV SCH ×2 (01:08→09:11)
--- NOTE | 2022-09-10 03:12 | HP ---
HISTORY AND PHYSICAL HISTORY OF PRESENT ILLNESS: This is a 57-year-old white female comes in with chest pain. She has a history of PEs, antiphospholipid syndrome, pacemaker, chronic hypokalemia, seizures, pseudoseizures, tricuspid valve repair, came to the emergency room with pleuritic-type chest pain in the middle of her chest, worse when she takes a deep breath. Negative D-dimer. She came to the hospital in severe pain. Cardiology has cleared her. She was severely hypokalemic. Potassium is replaced, now is normal. States she cannot breathe. She has severe chest pain when she takes a deep breath. HOME MEDICINES: Reviewed. PAST MEDICAL HISTORY: Reviewed. REVIEW OF SYSTEMS: A 14-point review of systems is negative except for mentioned in HPI. ALLERGIES: Reviewed. FAMILY HISTORY: Reviewed. PHYSICAL EXAMINATION: VITAL SIGNS: Reviewed. CARDIOVASCULAR: S1, S2. LUNGS: Transmitted upper sounds. ABDOMEN: Soft, nontender. HEMATOLOGY: Negative for Homans. PSYCH: Fair mood and affect. ASSESSMENT: Acute on chronic chest pain, suspect pleuritis versus costochondritis. Pulmonary consult, negative D-dimer. Continue with IV steroids. The patient wants Benadryl for headaches. Prognosis guarded. MMODL / IJN: [id number] /
[2022-09-10] MEDS: HYDROmorphone 1 MG/ML 1 ML SYRINGE IVP PRN ×4 (05:46→18:25)
[2022-09-10] MEDS: PANTOPRAZOLE 40 MG TABLET PO SCH (05:47)
[2022-09-10] MEDS: diphenhydrAMINE 50 MG/ML 1 ML VIAL IVP PRN ×3 (06:15→18:59)
[2022-09-10] MEDS: IPRATROPIUM 0.5 MG/2.5 ML NEBU INHALATION SCH ×4 (07:25→19:47)
[2022-09-10] MEDS: SYMBICORT 160-4.5 MCG INHALER INHALATION SCH ×2 (07:25→19:47)
[2022-09-10 07:42] LABS: Basophils % (A) 0 %; Eosinophils # (A) 0.2 k/uL (0-0.7); Eosinophils % (A) 4 %; HCT 35.8 % (34.0-46.0); HGB 11.8 gm/dL (11.4-16.0); Lymphocytes % (A) 20 %; MCHC 33.1 g/dL (31.0-37.0); MCV 90.8 fL (80.0-100.0); Mean Platelet Volume 9.4; Monocytes # (A) 0.4 k/uL (0-1.0); Monocytes % (A) 8 %; Neutrophils # (A) 3.2 k/uL (1.3-7.7); Neutrophils % (A) 65 %; Platelet Count 228 k/uL (150-450); RBC 3.94 m/uL (3.80-5.40); RDW 14.1 % (11.5-15.5)
[2022-09-10 08:35] LABS: ALT 24 U/L (4-34); AST 31 U/L (14-36); African American GFR (CKD) 51 (>60 ml/min/1.73 sqM); Albumin 4.2 g/dL (3.5-5.0); Albumin/Globulin Ratio 1.6; Alkaline Phosphatase 52 U/L (38-126); Anion Gap 12 mmol/L; Blood Urea Nitrogen 31 mg/dL (7-17); Calcium 9.2 mg/dL (8.4-10.2); Carbon Dioxide 27 mmol/L (22-30); Chloride 103 mmol/L (98-107); Globulin 2.6 g/dL; Glucose 179 mg/dL (74-99); Non-African American GFR(CKD) 44 (>60 ml/min/1.73 sqM); Potassium 4.3 mmol/L (3.5-5.1); Sodium 142 mmol/L (137-145); Total Bilirubin 0.3 mg/dL (0.2-1.3); Total Protein 6.8 g/dL (6.3-8.2)
[2022-09-10] MEDS: POTASSIUM CHLORIDE ER 20 MEQ TAB.ER PO SCH ×3 (09:11→20:44)
[2022-09-10] MEDS: GABAPENTIN 300 MG CAP PO SCH ×3 (09:11→20:44)
[2022-09-10] MEDS: busPIRone HCl 5 MG TAB PO SCH ×2 (09:11→20:45)
[2022-09-10] MEDS: METOPROLOL SUCCINATE (ER) 25 MG TAB.ER.24H PO SCH (09:11)
[2022-09-10] MEDS: APIXABAN 5 MG TAB PO SCH ×2 (09:11→20:44)
[2022-09-10] MEDS: SPIRONOLACTONE 25 MG TAB PO SCH ×2 (09:12→20:45)
[2022-09-10] MEDS: BUMETANIDE 1 MG TAB PO SCH ×2 (09:12→20:44)
[2022-09-10] MEDS: SERTRALINE 100 MG TAB PO SCH (09:13)
[2022-09-10] MEDS: HYDROCORTISONE 10 MG TAB PO SCH ×2 (09:13→20:11)
[2022-09-10] MEDS: ZONISAMIDE 100 MG CAP PO SCH ×2 (09:13→20:44)
--- NOTE | 2022-09-10 09:57 | P.CNPUL ---
History of Present Illness Consult date: 09/10/22 Reason for consult: dyspnea, cough, asthma, obstructive sleep apnea Chief complaint: Chest tightness History of present illness: 57-year-old nonsmoker with chronic pain syndrome required narcotic medicine off and on also has history of antiphospholipid antibody be recurrent thromboembolism, patient presented with acute onset of increased shortness of breath along with some mild tightness in the chest upper part also felt bronchial tubes closing down with those problem she came into the hospital for further evaluation, she was found to be significantly hypokalemic, after potassium replacement and symptoms improved significantly some soreness throughout the body of however is still present. She has history of multiple ALLERGIES, also have dyspnea on exertion, denies any cough or sputum production denies any fever or chills nausea vomiting or diarrhea. She has history of snoring and feels that is stab breathing as well. She was never formally evaluated for asthma and/or or sleep disorder breathing. Her admitted chest x- ray on the September 09 compared with the July 20 no acute finding identified. Patient is on currently high-dose IV steroids, continued on direct oral anticoagulant, also on home medications and high-dose IV steroids. Her labs include CBC which is within normal limit guaiacs okay d-dimer within normal limit, potassium on arrival was 2.9 improved to 4.3 now CO2 was 33 9 improved to 27 BUN/creatinine was 36/1.51 improved to 30 through 05/02.33. A BNP mildly elevated at 789, troponin within normal limit series of 3 tests have been done the maximum being 0.021, cardiovascular services also following Review of Systems All systems: negative Past Medical History Past Medical History: Blood Disorder, Pulmonary Embolus (PE), Renal Disease, Seizure Disorder Additional Past Medical History / Comment(s): Antiphospholipid antibody syndrome which causes clots and bleeding, multiple PEs, R renal artery embolism/now atrophic, CKD stage III, hypotension, hypokalemia especially w/stress, lupus, pyoderm grangrenosum, decreased pituitary function pt states d/t clot, migraines, chonic cervical/back pain, herniated discs, RLS, vertigo, recent adm. for low K+ History of Any Multi-Drug Resistant Organisms: C-DIFF Date of last positivie culture/infection: 2021 MDRO Source:: Stool Past Surgical History: Back Surgery, Breast Surgery, Cardiac Valve Replacement, Section, Cholecystectomy, Heart Catheterization, Hysterectomy, Pacemaker Additional Past Surgical History / Comment(s): pacemaker d/t bradycardia/hypotension with last one place in 2013 in [place], [place], 3 lower back surgeries, bilateral breast reduction. 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 She is independent. Smoking Status: Former smoker Past Alcohol Use History: None Reported Past Drug Use History: None Reported Additional Drug Use History / Comment(s): Marijuana use prn per pt. - Past Family History Mother Additional Family Medical History / Comment(s): Mother at the age of 49 yrs after surgery for silicon breast implants with a leak that caused ARDS and DIC per pt Father Family Medical History: Cancer, Hyperlipidemia, Hypertension Additional Family Medical History / Comment(s): Father is a colon cancer survivor. Medications and Allergies Home Medications Medication Instructions Recorded Confirmed Type Atorvastatin [Lipitor] 40 mg PO HS 09/24/21 09/09/22 History Cholestyramine (with Sugar) 4 gm PO DAILY PRN 09/24/21 09/09/22 History [Cholestyramine Packet] Gabapentin 300 mg PO TID 09/24/21 09/09/22 History Sertraline [Zoloft] 200 mg PO DAILY 09/24/21 09/09/22 History Ubrogepant [Ubrelvy] 100 mg PO BID PRN 09/24/21 09/09/22 History rOPINIRole HCL [Requip] 2 mg PO HS 09/24/21 09/09/22 History Budesonide/Glycopyr/Formoterol 1 puff INHALATION RT-BID 03/16/22 09/09/22 History [Breztri Aerosphere Inhaler] Esomeprazole Magnesium [NexIUM] 40 mg PO DAILY 03/16/22 09/09/22 History HYDROcodone/APAP 7.5-325MG [Pur[place] 1 tab PO BID PRN 03/16/22 09/09/22 History 7.5-325] Orphenadrine Citrate [Orphenadrine 100 mg PO HS PRN 03/16/22 09/09/22 History Citrate ER] Botox 200unit Injection 1 dose INJ Q84D 04/02/22 09/09/22 History Meclizine [Antivert] 12.5 mg PO Q8H PRN 04/02/22 09/09/22 History Potassium Chloride ER [K-Dur 20] 40 meq PO TID 30 Days #90 tab 04/16/22 09/09/22 Rx Diphenhydramine 50mg/Ml Vial 50 mg IM Q6H PRN 04/18/22 09/09/22 History Dicyclomine [Bentyl] 20 mg PO TID PRN #30 tablet 04/30/22 09/09/22 Rx Ondansetron Odt [Zofran ODT] 4 mg PO Q8HR PRN #12 tab 04/30/22 09/09/22 Rx Acetaminophen Tab [Tylenol] 650 mg PO Q6HR PRN tab 05/17/22 09/09/22 Rx Apixaban [Eliquis] 5 mg PO BID 05/29/22 09/09/22 History Spironolactone [Aldactone] 50 mg PO BID 06/11/22 09/09/22 History busPIRone HCl [Buspar] 5 mg PO BID 06/11/22 09/09/22 History Diclofenac Sodium Gel [Voltaren 4 gm TOPICAL QID PRN 06/21/22 09/09/22 History Gel] Bumetanide [BUMEX] 2 mg PO DAILY 06/24/22 09/09/22 History Hydrocortisone [Cortef] 10 mg PO BID 90 Days #180 tab 07/26/22 09/09/22 Rx Zonisamide [Zonegran] 100 mg PO Q12HR 30 Days #60 cap 07/26/22 09/09/22 Rx Bumetanide [BUMEX] 1 mg PO HS 08/26/22 09/09/22 History Lidocaine 5% Patch [Lidoderm 5% 1 patch TOPICAL DAILY PRN 08/26/22 09/09/22 History Patch] Metoprolol Succinate (ER) [Toprol 25 mg PO DAILY #30 tab 08/27/22 09/09/22 Rx XL] Allergies Allergy/AdvReac Type Severity Reaction Status Date / Time Penicillins Allergy Severe Anaphylaxis Verified 09/09/22 08:23 vancomycin Allergy Severe Swelling Verified 09/09/22 08:23 in lips clindamycin Allergy Anaphylaxis Verified 09/09/22 08:23 Influenza Virus Vaccines Allergy Unknown Verified 09/09/22 08:23 latex Allergy Unknown Verified 09/09/22 08:23 morphine Allergy Unknown Verified 09/09/22 08:23 prochlorperazine Allergy Unknown Verified 09/09/22 08:23 [From Compazine] galcanezumab-gnlm AdvReac Confusion, Verified 09/09/22 08:23 [From Emgality Pen] increased blood pressure metoclopramide [From Reglan] AdvReac Unknown Verified 09/09/22 08:23 Physical Exam Vitals: Vital Signs Temp Pulse Pulse Resp BP Pulse Ox 09/10/22 07:42 82 09/10/22 07:28 80 96 09/10/22 07:00 98.0 F 72 18 102/63 96 09/10/22 02:06 98.2 F 77 16 104/68 96 09/09/22 19:03 98.1 F 74 18 100/69 94 L 09/09/22 18:42 92 09/09/22 18:26 92 09/09/22 14:30 99.1 F 81 18 98/63 97 09/09/22 14:00 18 09/09/22 11:36 80 09/09/22 11:24 80 09/09/22 10:00 18 Intake and Output 09/09/22 09/10/22 09/10/22 22:59 06:59 14:59 Intake Total 600 Balance 600 Intake: Oral 600 Other: # Voids 2 2 Weight 77.2 kg - Constitutional General appearance: average body habitus, cooperative, disheveled - EENT Eyes: EOMI, PERRLA ENT: normal oropharynx Ears: bilateral: normal - Neck Neck: normal ROM Carotids: bilateral: upstroke normal Thyroid: bilateral: normal size - Respiratory Respiratory: bilateral: CTA - Cardiovascular Rhythm: regular Heart sounds: normal: S1, S2 - Gastrointestinal General gastrointestinal: normal bowel sounds, soft - Integumentary Integumentary: normal turgor - Neurologic Neurologic: CNII-XII intact - Musculoskeletal Musculoskeletal: gait normal, generalized weakness, strength equal bilaterally - Psychiatric Psychiatric: A&O x's 3, appropriate affect, intact judgment & insight Results - Laboratory Findings CBC and BMP: 09/10/22 06:54 09/10/22 06:54 PT/INR, D-dimer PT 10.8 sec (9.0-12.0) 09/09/22 04:40 INR 1.0 (<1.2) 09/09/22 04:40 D-Dimer 0.18 mg/L FEU (<0.60) 09/09/22 04:40 Abnormal lab findings: Abnormal Labs 09/09/22 09/10/22 04:40 06:54 Potassium 2.9 L Chloride 93 L Carbon Dioxide 33 H BUN 36 H 31 H Creatinine 1.51 H 1.33 H Glucose 179 H - Diagnostic Findings Chest x-ray: report reviewed, image reviewed (Finding as noted above) Assessment and Plan Assessment: Acute asthma exacerbation with history of multiple ALLERGIES patient however not been evaluated for asthma as trigger appeared to be severe hypokalemia and after placement symptoms and improve as well as lung exam will recommend quickly taper and DC the Solu-Medrol, further workup and evaluation as outpatient Sleep disorder breathing and sleep apnea likely pleasant, patient to be evaluated with polysomnogram as outpatient, patient has been consult educated Severe hypokalemia, appeared to be trigger factor for muscle spasm on replacement protocol Chronic kidney disease will trend urine output and renal functions monitor observe closely Antiphospholipid antibody syndrome with lupus, patient is on lifelong anticoagulant with Eiquis 5 mg 2 times a day, patient according to her had no recurrence of thromboembolism on Eliquis Plan: As noted above IV steroids already reduced to 40 mg IV every 12, can be DC'd tomorrow patient has issues with steroids in the past like swelling and edema of the feet given normal lung exam would not recommend oral prednisone currently however ration formerly needs to be evaluated for asthma, asthmatic bronchitis, sleep disorder breathing. Patient is being scheduled for follow-up in 1-2 weeks, we'll sign off currently Time with Patient: Greater than 30
[2022-09-10] MEDS: methylPREDNISolone SOD SUCCI 40 MG/ML 1 ML VIAL IV SCH (20:44)
[2022-09-10] MEDS: ATORVASTATIN 40 MG TAB PO SCH (20:45)
--- NOTE | 2022-09-10 22:37 | PN ---
PROGRESS NOTE SUBJECTIVE: The patient is breathing better, less chest pain with IV Solu-Medrol. Possibly discharge home tomorrow. Her white count and hemoglobin are normal. Her BUN and creatinine are better at 31 and 1.33. GFR is improved from 44 on admission to 51. OBJECTIVE: CARDIOVASCULAR: S1, S2. LUNGS: Clear. GI: Soft. HEMATOLOGY: Negative for Homans. PSYCH: Fair mood and affect. ASSESSMENT: Costochondritis, COPD exacerbation, atypical chest pain, rule out MT. Multiple medical problems including lupus and antiphospholipid syndrome. D-dimer is negative. The patient will be discharged home on oral steroids tomorrow, may be Decadron 6 mg daily for 7 days. Prognosis guarded. MMODL / IJN: [id number] /
[2022-09-11] MEDS: HYDROmorphone 1 MG/ML 1 ML SYRINGE IVP PRN ×3 (01:45→09:23)
[2022-09-11] MEDS: diphenhydrAMINE 50 MG/ML 1 ML VIAL IVP PRN ×3 (01:46→16:58)
[2022-09-11] MEDS: PANTOPRAZOLE 40 MG TABLET PO SCH (05:28)
[2022-09-11] MEDS: SYMBICORT 160-4.5 MCG INHALER INHALATION SCH ×2 (07:31→19:56)
[2022-09-11] MEDS: IPRATROPIUM 0.5 MG/2.5 ML NEBU INHALATION SCH ×4 (07:31→19:56)
[2022-09-11] MEDS: SPIRONOLACTONE 25 MG TAB PO SCH (09:23)
[2022-09-11] MEDS: BUMETANIDE 1 MG TAB PO SCH (09:23)
[2022-09-11] MEDS: ZONISAMIDE 100 MG CAP PO SCH (09:23)
[2022-09-11] MEDS: SERTRALINE 100 MG TAB PO SCH (09:24)
[2022-09-11] MEDS: APIXABAN 5 MG TAB PO SCH (09:24)
[2022-09-11] MEDS: methylPREDNISolone SOD SUCCI 40 MG/ML 1 ML VIAL IV SCH (09:24)
[2022-09-11] MEDS: busPIRone HCl 5 MG TAB PO SCH (09:24)
[2022-09-11] MEDS: METOPROLOL SUCCINATE (ER) 25 MG TAB.ER.24H PO SCH (09:25)
[2022-09-11] MEDS: POTASSIUM CHLORIDE ER 20 MEQ TAB.ER PO SCH ×2 (09:25→16:58)
[2022-09-11] MEDS: GABAPENTIN 300 MG CAP PO SCH ×2 (09:25→16:58)
[2022-09-11] MEDS: HYDROCORTISONE 10 MG TAB PO SCH (09:25)
[2022-09-11] MEDS ORDERED: hydrOXYzine HCL 25 MG TAB PO STA (11:40)
[2022-09-11] MEDS ORDERED: diphenhydrAMINE 50 MG/ML 1 ML VIAL IVP STA (11:51)
[2022-09-11] MEDS ORDERED: LIDOCAINE VISCOUS 2000 MG/100 ML BOTTLE MUCOUS MEM ONE (14:24)
[2022-09-11 16:45] VITALS: BP 122/77; PULSE 70; RESP 16; TEMP 98.4
--- NOTE | 2022-09-12 01:58 | PN ---
PROGRESS NOTE SUBJECTIVE: A 57-year-old white female. She is doing better. She is breaking out into a severe allergic rash today. She is itching everywhere. She is demanding another dose of Benadryl, which we are going to give her. OBJECTIVE: VITAL SIGNS: Temp 98.4, pulse 70, respiratory rate 16 to 18, blood pressure 122/77, O2 sat is 92% on room air. CARDIOVASCULAR: S1 and S2. LUNGS: Clear. GI: Soft. MUSCULOSKELETAL: Tenderness to palpation, anterior chest wall. HEMATOLOGIC: She has generalized edema. No severe rashes, excoriations. PLAN: Give her an extra dose of Benadryl and possibly discharge her home as she appears to be breathing better and chest wall pain is better. Prognosis is guarded. Please see multiple consults in the recommendations. MMODL / IJN: [id number] /
== END 2022-09-11 18:00 | disposition home or self-care (01) ==
LOC: EC 03:40 → 3SCARD 05:25 → 6NMEDSUR 07:30
PROVIDERS: ADMIT Family Medicine; ATTEND Family Medicine
DX: G47.33 Obstructive sleep apnea (adult) (pediatric) (principal); R06.00 Dyspnea, unspecified; R05.9 Cough, unspecified; J45.909 Unspecified asthma, uncomplicated; G89.4 Chronic pain syndrome; D68.61 Antiphospholipid syndrome; E87.6 Hypokalemia; Z86.711 Personal history of pulmonary embolism; N18.30 Chronic kidney disease, stage 3 unspecified; I95.9 Hypotension, unspecified; Z87.891 Personal history of nicotine dependence; F41.9 Anxiety disorder, unspecified; M32.9 Systemic lupus erythematosus, unspecified; L88 Pyoderma gangrenosum; G89.29 Other chronic pain; M54.9 Dorsalgia, unspecified; M54.2 Cervicalgia; G25.81 Restless legs syndrome; Z86.19 Personal history of other infectious and parasitic diseases; Z90.49 Acquired absence of other specified parts of digestive tract; Z98.890 Other specified postprocedural states; Z98.891 History of uterine scar from previous surgery; Z95.0 Presence of cardiac pacemaker; Z95.3 Presence of xenogenic heart valve; Z83.438 Family history of other disorder of lipoprotein metabolism and other lipidemia; Z82.49 Family history of ischemic heart disease and other diseases of the circulatory system; Z80.0 Family history of malignant neoplasm of digestive organs; Z79.01 Long term (current) use of anticoagulants; Z79.899 Other long term (current) drug therapy; Z88.5 Allergy status to narcotic agent; Z88.0 Allergy status to penicillin; Z88.8 Allergy status to other drugs, medicaments and biological substances; Z88.1 Allergy status to other antibiotic agents; Z91.040 Latex allergy status
CPT/HCPCS: 96376 ×3; 96366 ×2; 96375 ×2; 96365; 99285; 36415; 94640 ×6; 94760 ×2; 93005; 85379; 83880; 80053 ×2; 83735; 84132; 84484; 85025 ×2; 85610; 85730; 71046; G0378 ×4; J1200 ×3; J2920 ×2; J2930; J2405; J3010; J1170 ×3; J3480; J1642

== ENCOUNTER 2022-09-20 14:09 | Observation (INO) | payer BC, MEDICARE ==
--- NOTE | 2022-09-20 15:59 | XR ---
EXAMINATION TYPE: XR chest 2V DATE OF EXAM: 09/20/2022 COMPARISON: 09/09/2022 HISTORY: Shortness of breath TECHNIQUE: Frontal and lateral views of the chest are obtained. FINDINGS: Scattered senescent parenchymal changes noted. Hyperinflation compatible with COPD. No evidence for infiltrate. No evidence for atelectasis. Heart size is stable. Cardiac valvular prosthesis. Loop recorder. Mediastinal structures are stable and grossly unremarkable. No evidence for hilar prominence. Degenerative changes dorsal spine. IMPRESSION: 1. No evidence for acute pulmonary disease.
--- NOTE | 2022-09-20 17:02 | ED ---
General Adult HPI - General Chief complaint: Back Pain/Injury Stated complaint: LOW BP-BACK PAIN Time Seen by Provider: 09/20/22 16:18 Source: patient, RN notes reviewed Mode of arrival: ambulatory Limitations: no limitations - History of Present Illness Initial comments: 57-year-old female presents to the emergency department chief complaint of back pain 3 days. She states that she has a history of back pain and has had multiple fusions in her lumbar spine. She states that the pain has been worse in the last couple days but has not had any new injuries or known trauma. She states that the pain is worse when she lays in bed at night and it is affecting her sleep. She also reports leg cramps. She states that she has an improvement in pain with NSAIDs but is unable to take them due to a history of bleeding ulcers. She states that she takes Tracy 7.5 at home twice a day as needed for pain. She states she last took her Tracy about 3 hours ago. She also has had hypokalemia in the past which she is worried about today because of the muscle cramps. She states takes diuretics. She has a history of hypotension for which she takes Midodrine as needed. She also reports history of lupus. - Related Data Home Medications Medication Instructions Recorded Confirmed Atorvastatin [Lipitor] 40 mg PO HS 09/24/21 09/20/22 Cholestyramine (with Sugar) 4 gm PO DAILY PRN 09/24/21 09/20/22 [Cholestyramine Packet] Gabapentin 300 mg PO TID 09/24/21 09/20/22 Sertraline [Zoloft] 200 mg PO DAILY 09/24/21 09/20/22 Ubrogepant [Ubrelvy] 100 mg PO BID PRN 09/24/21 09/20/22 rOPINIRole HCL [Requip] 2 mg PO HS 09/24/21 09/20/22 Budesonide/Glycopyr/Formoterol 1 puff INHALATION RT-BID 03/16/22 09/20/22 [Breztri Aerosphere Inhaler] Esomeprazole Magnesium [NexIUM] 40 mg PO DAILY 03/16/22 09/20/22 Orphenadrine Citrate [Orphenadrine 100 mg PO HS PRN 03/16/22 09/20/22 Citrate ER] Botox 200unit Injection 1 dose INJ Q84D 04/02/22 09/20/22 Meclizine [Antivert] 12.5 mg PO Q8H PRN 04/02/22 09/20/22 Diphenhydramine 50mg/Ml Vial 50 mg IM Q6H PRN 04/18/22 09/20/22 Apixaban [Eliquis] 5 mg PO BID 05/29/22 09/20/22 Spironolactone [Aldactone] 50 mg PO BID 06/11/22 09/20/22 busPIRone HCl [Buspar] 5 mg PO BID 06/11/22 09/20/22 Bumetanide [BUMEX] 2 mg PO DAILY 06/24/22 09/20/22 Bumetanide [BUMEX] 1 mg PO HS 08/26/22 09/20/22 Lidocaine 5% Patch [Lidoderm 5% 1 patch TRANSDERM DAILY PRN 08/26/22 09/20/22 Patch] Fludrocortisone [Florinef] 0.1 mg PO DAILY 09/20/22 09/20/22 Hydrocodone/Acetaminophen 7.5-300mg 1 tab PO Q12H PRN 09/20/22 09/20/22 Previous Rx's Medication Instructions Recorded Potassium Chloride ER [K-Dur 20] 40 meq PO TID 30 Days #90 tab 04/16/22 Dicyclomine [Bentyl] 20 mg PO TID PRN #30 tablet 04/30/22 Ondansetron Odt [Zofran ODT] 4 mg PO Q8HR PRN #12 tab 04/30/22 Hydrocortisone [Cortef] 10 mg PO BID 90 Days #180 tab 07/26/22 Zonisamide [Zonegran] 100 mg PO Q12HR 30 Days #60 cap 07/26/22 Metoprolol Succinate (ER) [Toprol 25 mg PO DAILY #30 tab 08/27/22 XL] Allergies Allergy/AdvReac Type Severity Reaction Status Date / Time Penicillins Allergy Severe Anaphylaxis Verified 09/20/22 17:51 vancomycin Allergy Severe Swelling Verified 09/20/22 17:51 in lips clindamycin Allergy Anaphylaxis Verified 09/20/22 17:51 dexamethasone [From Decadron] Allergy Unknown Verified 09/20/22 17:51 Influenza Virus Vaccines Allergy Unknown Verified 05/22/23 17:51 latex Allergy Unknown Verified 09/20/22 17:51 morphine Allergy Unknown Verified 09/20/22 17:51 prochlorperazine Allergy Unknown Verified 09/20/22 17:51 [From Compazine] galcanezumab-gnlm AdvReac Confusion, Verified 09/20/22 17:51 [From Emgality Pen] increased blood pressure metoclopramide [From Reglan] AdvReac "felt like Verified 09/20/22 17:51 I needed to jump out of my skin" Review of Systems ROS Statement: Those systems with pertinent positive or pertinent negative responses have been documented in the HPI. ROS Other: All systems not noted in ROS Statement are negative. 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 for low K+ History of Any Multi-Drug Resistant Organisms: C-DIFF Date of last positivie culture/infection: 2021 MDRO Source:: Stool Past Surgical History: Back Surgery, Breast Surgery, Cardiac Valve Replacement, Section, Cholecystectomy, Heart Catheterization, Hysterectomy, Pacemaker Additional Past Surgical History / Comment(s): pacemaker d/t bradycardia/hypotension with last one place in 2013 in [place], [place], 3 lower back surgeries, bilateral breast reduction. 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 Past Anesthesia/Blood Transfusion Reactions: No Reported Reaction Type of Cardiac Device: Permanent Pacemaker, Unknown Device Placement Date:: 2012 Past Psychological History: Anxiety Smoking Status: Former smoker - Past Family History Mother Additional Family Medical History / Comment(s): Mother at the age of 49 yrs after surgery for silicon breast implants with a leak that caused ARDS and DIC per pt Father Family Medical History: Cancer, Hyperlipidemia, Hypertension Additional Family Medical History / Comment(s): Father is a colon cancer survivor. General Exam Limitations: no limitations General appearance: alert, in no apparent distress Head exam: Present: atraumatic, normocephalic, normal inspection Eye exam: Present: normal appearance, PERRL, EOMI. Absent: scleral icterus, conjunctival injection, periorbital swelling ENT exam: Present: normal exam, mucous membranes moist Neck exam: Present: normal inspection. Absent: tenderness, meningismus, lymphadenopathy Respiratory exam: Present: normal lung sounds bilaterally. Absent: respiratory distress, wheezes, rales, rhonchi, stridor Cardiovascular Exam: Present: regular rate, normal rhythm, normal heart sounds. Absent: systolic murmur, diastolic murmur, rubs, gallop, clicks GI/Abdominal exam: Present: soft, normal bowel sounds. Absent: distended, tenderness, guarding, rebound, rigid Extremities exam: Present: normal inspection, full ROM, normal capillary refill. Absent: tenderness, pedal edema, joint swelling, calf tenderness Back exam: Present: normal inspection, paraspinal tenderness (Lumbar spine), vertebral tenderness (Lumbar spine). Absent: CVA tenderness (R), CVA tenderness (L) Neurological exam: Present: alert, oriented X3 Psychiatric exam: Present: normal affect, normal mood Skin exam: Present: warm, dry, intact, normal color. Absent: rash Course Vital Signs 09/20/22 09/20/22 09/20/22 14:23 18:02 23:52 Temperature 98.7 F Pulse Rate 74 63 74 Respiratory 16 18 18 Rate Blood Pressure 109/71 123/72 105/73 O2 Sat by Pulse 95 96 99 Oximetry Medical Decision Making - Medical Decision Making Was pt. sent in by a medical professional or institution (, PA, DYNAMITE PACKING MACHINE OPERATOR, urgent care, hospital, or prison...) When possible be specific @ -No Did you speak to anyone other than the patient for history (EMS, parent, family, police, friend...)? What history was obtained from this source @ -No Did you review nursing and triage notes (agree or disagree)? Why? @ -I reviewed and agree with nursing and triage notes Were old charts reviewed (outside hosp., previous admission, EMS record, old EKG, old radiological studies, urgent care reports/EKG's, prison records)? Report findings @ -Charts From prior ER visit and admission were reviewed Differential Diagnosis (chest pain, altered mental status, abdominal pain women, abdominal pain men, vaginal bleeding, weakness, fever, dyspnea, syncope, headache, dizziness, GI bleed, back pain, seizure, CVA, palpatations, mental health, musculoskeletal)? @ -Differential Musculoskeletal Muscular strain, contusion, ligament sprain, fracture, arthritis, septic arth ritis, bursitis, cellulitis, muscle spasm, nerve compression, DVT, arterial occlusion, herpes zoster, electrolyte abnormality, tumor.... This is not meant to be in all inclusive list EKG interpreted by me (3pts min.). @ -EKG at 1526 showed rate 78, [place] 182, QRS 93, QTQTc [id number] X-rays interpreted by me (1pt min.). @ -Chest x-ray showed no evidence for acute pulmonary disease X-ray lumbar spine showed degenerative disc change at L3-4 and L4- 5; surgical changes L5-S1, grade 1 spondylolisthesis of L4 anterior on L5 CT interpreted by me (1pt min.). @ -None done U/S interpreted by me (1pt. min.). @ -None done What testing was considered but not performed or refused? (CT, X-rays, U/S, labs)? Why? @ -None What meds were considered but not given or refused? Why? @ -None Did you discuss the management of the patient with other professionals (belgica wharton i.e. , PA, DYNAMITE PACKING MACHINE OPERATOR, lab, RT, psych nurse, social media community manager, network programmer, teacher, collection officer, telephonic case manager)? Give summary @ -Case was discussed with Dr. Hassan who recommended I speak to nephrology. Case was discussed with Dr. Renteria, recommended a random urine potassium along with potassium supplementation and recheck of the level in the a.m. Was smoking cessation discussed for >3mins.? @ -No Was critical care preformed (if so, how long)? @ -No Were there social determinants of health that impacted care today? How? (Homelessness, low income, unemployed, alcoholism, drug addiction, transportation, low edu. Level, literacy, decrease access to med. care, custodial, rehab)? @ -No Was there de-escalation of care discussed even if they declined (Discuss DNR or withdrawal of care, Hospice)? DNR status @ -No What co-morbidities impacted this encounter? (DM, HTN, Smoking, COPD, CAD, Cancer, CVA, ARF, Chemo, Hep., AIDS, mental health diagnosis, sleep apnea, morbid obesity)? @ -None Was patient admitted / discharged? Hospital course, mention meds given and route, prescriptions, significant lab abnormalities, going to OR and other pertinent info. @ -Admitted. Patient presented to emergency department chief complaint of back pain 3 days and concern for hypokalemia. On examination, patient appears mildly uncomfortable due to pain, patient had tenderness to palpation over the lumbar spine and paraspinal area. EKG was obtained which showed electronic atrial pacemaker with rate of 70. Labs are obtained on the patient which showed CBC within normal limits, CMP showed potassium 2.6, sodium 136, chloride 90, BUN 42, creatinine 1.56, magnesium 2.3; UA within normal limits. Chest x-ray was obtained which showed no evidence for acute pulmonary process, x-ray lumbar spine stable from prior CT. Patient was given 0.5 of Dilaudid and Benadryl. Patient was reassessed and had some improvement in her pain. Patient was given 40 mEq of potassium by mouth and 40 mEq of potassium IV. Case was discussed with Dr. Hassan and Dr. Renteria. Dr. Renteria recommended a random urine potassium and potassium supplementation with recheck in the a.m. Patient stable at time of admission. Case discussed with my attending, Dr. Krishnan Undiagnosed new problem with uncertain prognosis? @ -No Drug Therapy requiring intensive monitoring for toxicity (Heparin, Nitro, Insulin, Cardizem)? @ -No Were any procedures done? @ -No Diagnosis/symptom? @ -Hypokalemia Acute, or Chronic, or Acute on Chronic? @ -Acute Uncomplicated (without systemic symptoms) or Complicated (systemic symptoms)? @ -default Side effects of treatment? @ -No Exacerbation, Progression, or Severe Exacerbation? @ -No Poses a threat to life or bodily function? How? (Chest pain, [place], [place], pneumonia, PE, COPD, DKA, ARF, appy, cholecystitis, CVA, Diverticulitis, Homicidal, Suicidal, threat to staff... and all critical care pts) @ -No - Lab Data Result diagrams: 09/20/22 17:03 09/20/22 17:03 Lab Results 09/20/22 09/20/22 09/20/22 Range/Units 17:03 17:03 17:03 WBC 8.9 (3.8-10.6) k/uL RBC 4.34 (3.80-5.40) m/uL Hgb 13.0 (11.4-16.0) gm/dL Hct 38.7 (34.0-46.0) % MCV 89.3 (80.0-100.0) fL MCH 29.9 (25.0-35.0) pg MCHC 33.5 (31.0-37.0) g/dL RDW 13.9 (11.5-15.5) % Plt Count 273 (150-450) k/uL MPV 8.6 Neutrophils % 79 % Lymphocytes % 12 % Monocytes % 4 % Eosinophils % 2 % Basophils % 0 % Neutrophils # 7.0 (1.3-7.7) k/uL Lymphocytes # 1.1 (1.0-4.8) k/uL Monocytes # 0.4 (0-1.0) k/uL Eosinophils # 0.2 (0-0.7) k/uL Basophils # 0.0 (0-0.2) k/uL Sodium 136 L (137-145) mmol/L Potassium 2.6 L* (3.5-5.1) mmol/L Chloride 90 L (98-107) mmol/L Carbon Dioxide 28 (22-30) mmol/L Anion Gap 18 mmol/L BUN 42 H (7-17) mg/dL Creatinine 1.56 H (0.52-1.04) mg/dL Est GFR (CKD-EPI)AfAm 42 (>60 ml/min/1.73 sqM) Est GFR (CKD-EPI)NonAf 37 (>60 ml/min/1.73 sqM) Glucose 166 H (74-99) mg/dL Calcium 9.1 (8.4-10.2) mg/dL Magnesium (1.6-2.3) mg/dL Total Bilirubin 0.4 (0.2-1.3) mg/dL AST 29 (14-36) U/L ALT 28 (4-34) U/L Alkaline Phosphatase 63 (38-126) U/L Troponin I (0.000-0.034) ng/mL Total Protein 7.1 (6.3-8.2) g/dL Albumin 4.4 (3.5-5.0) g/dL Lipase 76 (23-300) U/L Urine Color Yellow Urine Appearance Clear (Clear) Urine pH 6.0 (5.0-8.0) Ur Specific [place] 1.019 (1.001-1.035) Urine Protein Negative (Negative) Urine Glucose (UA) Negative (Negative) Urine Ketones Negative (Negative) Urine Blood Negative (Negative) Urine Nitrite Negative (Negative) Urine Bilirubin Negative (Negative) Urine Urobilinogen <2.0 (<2.0) mg/dL Ur Leukocyte Esterase Negative (Negative) 09/20/22 09/20/22 Range/Units 17:03 17:03 WBC (3.8-10.6) k/uL RBC (3.80-5.40) m/uL Hgb (11.4-16.0) gm/dL Hct (34.0-46.0) % MCV (80.0-100.0) fL MCH (25.0-35.0) pg MCHC (31.0-37.0) g/dL RDW (11.5-15.5) % Plt Count (150-450) k/uL MPV Neutrophils % % Lymphocytes % % Monocytes % % Eosinophils % % Basophils % % Neutrophils # (1.3-7.7) k/uL Lymphocytes # (1.0-4.8) k/uL Monocytes # (0-1.0) k/uL Eosinophils # (0-0.7) k/uL Basophils # (0-0.2) k/uL Sodium (137-145) mmol/L Potassium (3.5-5.1) mmol/L Chloride (98-107) mmol/L Carbon Dioxide (22-30) mmol/L Anion Gap mmol/L BUN (7-17) mg/dL Creatinine (0.52-1.04) mg/dL Est GFR (CKD-EPI)AfAm (>60 ml/min/1.73 sqM) Est GFR (CKD-EPI)NonAf (>60 ml/min/1.73 sqM) Glucose (74-99) mg/dL Calcium (8.4-10.2) mg/dL Magnesium 2.3 (1.6-2.3) mg/dL Total Bilirubin (0.2-1.3) mg/dL AST (14-36) U/L ALT (4-34) U/L Alkaline Phosphatase (38-126) U/L Troponin I 0.030 (0.000-0.034) ng/mL Total Protein (6.3-8.2) g/dL Albumin (3.5-5.0) g/dL Lipase (23-300) U/L Urine Color Urine Appearance (Clear) Urine pH (5.0-8.0) Ur Specific [place] (1.001-1.035) Urine Protein (Negative) Urine Glucose (UA) (Negative) Urine Ketones (Negative) Urine Blood (Negative) Urine Nitrite (Negative) Urine Bilirubin (Negative) Urine Urobilinogen (<2.0) mg/dL Ur Leukocyte Esterase (Negative) Disposition Clinical Impression: Hypokalemia Disposition: ADMITTED IP TO THIS HOSP Condition: Stable Is patient prescribed a controlled substance at d/c from ED?: No Time of Disposition: 23:24
[2022-09-20] MEDS ORDERED: diphenhydrAMINE 50 MG/ML 1 ML VIAL IVP STA ×2 (17:16→23:34)
[2022-09-20] MEDS ORDERED: HYDROmorphone 0.5 MG/0.5 ML SYRINGE IVP STA ×2 (17:16→19:45)
[2022-09-20 17:18] LABS: Basophils % (A) 0 %; Eosinophils # (A) 0.2 k/uL (0-0.7); Eosinophils % (A) 2 %; HCT 38.7 % (34.0-46.0); Lymphocytes # (A) 1.1 k/uL (1.0-4.8); Lymphocytes % (A) 12 %; MCH 29.9 pg (25.0-35.0); MCHC 33.5 g/dL (31.0-37.0); MCV 89.3 fL (80.0-100.0); Mean Platelet Volume 8.6; Monocytes # (A) 0.4 k/uL (0-1.0); Monocytes % (A) 4 %; Neutrophils % (A) 79 %; Platelet Count 273 k/uL (150-450); RBC 4.34 m/uL (3.80-5.40); RDW 13.9 % (11.5-15.5); WBC 8.9 k/uL (3.8-10.6)
--- NOTE | 2022-09-20 17:30 | XR ---
EXAMINATION TYPE: XR lumbar spine 2 or 3V DATE OF EXAM: 09/20/2022 COMPARISON: None HISTORY: Back pain TECHNIQUE: Three-view lumbar spine FINDINGS: Scoliosis is present with a convexity to the left centered at L2. There are 5 lumbar-type v ertebral bodies. L1-L4 pedicles are intact. L5 and S1 pedicles. Pedicle screws and fixation rods. There is loss of disc height L3-4 and L4-5. Grade 1 spondylolisthes is of 04 antrum L5 is present. Vertebral body heights are preserved. IMPRESSION: 1. Degenerative disc change L3-4 L4-5. 2. Postsurgical changes L5-S1. 3. Grade 1 spondylolisthesis of L4 anterior on L5
[2022-09-20 17:58] LABS: Calcium 9.1 mg/dL (8.4-10.2); Total Bilirubin 0.4 mg/dL (0.2-1.3); Total Protein 7.1 g/dL (6.3-8.2)
[2022-09-20 18:06] LABS: Potassium 2.6 mmol/L (3.5-5.1)
[2022-09-20] MEDS ORDERED: POTASSIUM CHLORIDE ER 20 MEQ TAB.ER PO STA (18:07)
[2022-09-20 18:11] LABS: Albumin 4.4 g/dL (3.5-5.0)
[2022-09-20 19:53] LABS: Appearance,Urine Clear (Clear); Bilirubin,Urine Negative (Negative); Blood,Urine Negative (Negative); Color,Urine Yellow; Glucose,Urine (UA) Negative (Negative); Ketones,Urine Negative (Negative); Leukocyte Esterase,Urine Negative (Negative); Nitrite,Urine Negative (Negative); Protein,Urine Negative (Negative); Specific Gravity,Urine 1.019 (1.001-1.035); Urobilinogen,Urine <2.0 mg/dL (<2.0)
[2022-09-20] MEDS: POTASSIUM CHLORIDE 10 MEQ in WATER FOR INJECTION 1 100ML.BAG IVPB SCH ×2 (21:35→23:25)
[2022-09-20] MEDS ORDERED: NALOXONE 0.4 MG/ML 1 ML VIAL IV PRN (22:20)
[2022-09-20] MEDS ORDERED: ACETAMINOPHEN TAB 325 MG TAB PO PRN (22:20)
[2022-09-20] MEDS: HYDROmorphone 0.5 MG/0.5 ML SYRINGE IVP PRN (23:24)
[2022-09-21] MEDS: POTASSIUM CHLORIDE 10 MEQ in WATER FOR INJECTION 1 100ML.BAG IVPB SCH ×2 (03:48→04:47)
[2022-09-21] MEDS: HYDROmorphone 0.5 MG/0.5 ML SYRINGE IVP PRN ×2 (03:49→06:14)
[2022-09-21] MEDS ORDERED: DICYCLOMINE 20 MG TAB PO PRN (06:56)
[2022-09-21] MEDS ORDERED: CHOLESTYRAMINE (WITH SUGAR) 4 GM PACKET PO PRN (06:56)
[2022-09-21] MEDS ORDERED: MECLIZINE 12.5 MG TAB PO PRN (06:56)
[2022-09-21] MEDS ORDERED: CYCLOBENZAPRINE 10 MG TAB PO PRN (06:56)
[2022-09-21] MEDS ORDERED: PATIENT'S OWN (Ubrogepant [Ubrelvy] 100 MG Tablet) PO PRN (06:56)
[2022-09-21] MEDS ORDERED: NON FORMULARY DRUG (Budesonide/Glycopyr/Formoterol [Breztri Aerosphere Inhaler] 10.7 GM Gm INHALATION SCH (08:00)
[2022-09-21] MEDS: APIXABAN 5 MG TAB PO SCH ×2 (08:15→22:45)
[2022-09-21] MEDS: busPIRone HCl 5 MG TAB PO SCH ×2 (08:15→22:44)
[2022-09-21] MEDS: HYDROCORTISONE 10 MG TAB PO SCH ×2 (08:15→22:45)
[2022-09-21] MEDS: diphenhydrAMINE 50 MG/ML 1 ML VIAL IVP PRN ×3 (08:15→22:46)
[2022-09-21] MEDS: BUMETANIDE 1 MG TAB PO SCH (08:15)
[2022-09-21] MEDS: FLUDROCORTISONE 0.1 MG TAB PO SCH (08:16)
[2022-09-21] MEDS: ZONISAMIDE 100 MG CAP PO SCH ×2 (08:16→22:45)
[2022-09-21] MEDS: GABAPENTIN 300 MG CAP PO SCH ×3 (08:16→22:45)
[2022-09-21] MEDS: SERTRALINE 100 MG TAB PO SCH (08:16)
[2022-09-21] MEDS: PANTOPRAZOLE 40 MG TABLET PO SCH (08:16)
[2022-09-21] MEDS: METOPROLOL SUCCINATE (ER) 25 MG TAB.ER.24H PO SCH (08:16)
[2022-09-21] MEDS: SPIRONOLACTONE 25 MG TAB PO SCH ×2 (08:17→22:45)
[2022-09-21] MEDS: HYDROmorphone 1 MG/ML 1 ML SYRINGE IVP PRN ×4 (10:15→22:46)
--- NOTE | 2022-09-21 12:03 | P.NPCON ---
History of Present Illness - Reason for Consult hypokalemia - History of Present Illness Patient is a 57-year-old female with history of chronic kidney disease NKF stage IIIa with baseline creatinine 1.2-1.5 mg/dL. Etiology is solitary functioning left kidney and element of cardiorenal syndrome. Patient was admitted to the hospital with complaints of back pain after she had recently started a workout. Pain is radiating into the groin. No significant urinary symptoms. Potassium was 2.6 and serum creatinine was 1.56. This has been replaced No significant swelling currently No complaints of nausea vomiting abdominal pain or diarrhea. No history of fever chills chest pain or cough. Review of Systems As per HPI Past Medical History Past Medical History: Blood Disorder, Pulmonary Embolus (PE), Renal Disease, Seizure Disorder Additional Past Medical History / Comment(s): Antiphospholipid antibody syndrome which causes clots and bleeding, multiple PEs, R renal artery embolism/now atrophic, CKD stage III, hypotension, hypokalemia especially w/stress, lupus, pyoderm grangrenosum, decreased pituitary function pt states d/t clot, migraines, chonic cervical/back pain, herniated discs, RLS, vertigo, recent adm. for low K+ History of Any Multi-Drug Resistant Organisms: C-DIFF Date of last positivie culture/infection: 2021 MDRO Source:: Stool Past Surgical History: Back Surgery, Breast Surgery, Cardiac Valve Replacement, Section, Cholecystectomy, Heart Catheterization, Hysterectomy, Pacemaker Additional Past Surgical History / Comment(s): pacemaker d/t bradycardia/h ypotension with last one place in 2013 in [place], [place], 3 lower back surgeries, bilateral breast reduction. 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 Past Anesthesia/Blood Transfusion Reactions: No Reported Reaction Type of Cardiac Device: Permanent Pacemaker, Unknown Device Placement Date:: 2012 Past Psychological History: Anxiety Smoking Status: Former smoker - Past Family History Mother Additional Family Medical History / Comment(s): Mother at the age of 49 yrs after surgery for silicon breast implants with a leak that caused ARDS and DIC per pt Father Family Medical History: Cancer, Hyperlipidemia, Hypertension Additional Family Medical History / Comment(s): Father is a colon cancer survivor. Medications and Allergies Home Medications Medication Instructions Recorded Confirmed Type Atorvastatin [Lipitor] 40 mg PO HS 09/24/21 09/20/22 History Cholestyramine (with Sugar) 4 gm PO DAILY PRN 09/24/21 09/20/22 History [Cholestyramine Packet] Gabapentin 300 mg PO TID 09/24/21 09/20/22 History Sertraline [Zoloft] 200 mg PO DAILY 09/24/21 09/20/22 History Ubrogepant [Ubrelvy] 100 mg PO BID PRN 09/24/21 09/20/22 History rOPINIRole HCL [Requip] 2 mg PO HS 09/24/21 09/20/22 History Budesonide/Glycopyr/Formoterol 1 puff INHALATION RT-BID 03/16/22 09/20/22 History [Breztri Aerosphere Inhaler] Esomeprazole Magnesium [NexIUM] 40 mg PO DAILY 03/16/22 09/20/22 History Orphenadrine Citrate [Orphenadrine 100 mg PO HS PRN 03/16/22 09/20/22 History Citrate ER] Botox 200unit Injection 1 dose INJ Q84D 04/02/22 09/20/22 History Meclizine [Antivert] 12.5 mg PO Q8H PRN 04/02/22 09/20/22 History Potassium Chloride ER [K-Dur 20] 40 meq PO TID 30 Days #90 tab 04/16/22 09/20/22 Rx Diphenhydramine 50mg/Ml Vial 50 mg IM Q6H PRN 04/18/22 09/20/22 History Dicyclomine [Bentyl] 20 mg PO TID PRN #30 tablet 04/30/22 09/20/22 Rx Ondansetron Odt [Zofran ODT] 4 mg PO Q8HR PRN #12 tab 04/30/22 09/20/22 Rx Apixaban [Eliquis] 5 mg PO BID 05/29/22 09/20/22 History Spironolactone [Aldactone] 50 mg PO BID 06/11/22 09/20/22 History busPIRone HCl [Buspar] 5 mg PO BID 06/11/22 09/20/22 History Bumetanide [BUMEX] 2 mg PO DAILY 06/24/22 09/20/22 History Hydrocortisone [Cortef] 10 mg PO BID 90 Days #180 tab 07/26/22 09/20/22 Rx Zonisamide [Zonegran] 100 mg PO Q12HR 30 Days #60 cap 07/26/22 09/20/22 Rx Bumetanide [BUMEX] 1 mg PO HS 08/26/22 09/20/22 History Lidocaine 5% Patch [Lidoderm 5% 1 patch TRANSDERM DAILY PRN 08/26/22 09/20/22 History Patch] Metoprolol Succinate (ER) [Toprol 25 mg PO DAILY #30 tab 08/27/22 09/20/22 Rx XL] Fludrocortisone [Florinef] 0.1 mg PO DAILY 09/20/22 09/20/22 History Hydrocodone/Acetaminophen 7.5-300mg 1 tab PO Q12H PRN 09/20/22 09/20/22 History Allergies Allergy/AdvReac Type Severity Reaction Status Date / Time Penicillins Allergy Severe Anaphylaxis Verified 09/20/22 17:51 vancomycin Allergy Severe Swelling Verified 09/20/22 17:51 in lips clindamycin Allergy Anaphylaxis Verified 09/20/22 17:51 dexamethasone [From Decadron] Allergy Unknown Verified 09/20/22 17:51 Influenza Virus Vaccines Allergy Unknown Verified 09/20/22 17:51 latex Allergy Unknown Verified 09/20/22 17:51 morphine Allergy Unknown Verified 09/20/22 17:51 prochlorperazine Allergy Unknown Verified 09/20/22 17:51 [From Compazine] galcanezumab-gnlm AdvReac Confusion, Verified 09/20/22 17:51 [From Emgality Pen] increased blood pressure metoclopramide [From Reglan] AdvReac "felt like Verified 09/20/22 17:51 I needed to jump out of my skin" Physical Exam Vitals: Vital Signs Temp Pulse Pulse Resp BP BP Pulse Ox 09/21/22 10:53 98.2 F 80 16 98/65 99 09/21/22 07:42 70 16 09/21/22 07:41 97.8 F 70 16 100/66 95 09/21/22 04:25 71 16 100/52 98 09/21/22 03:30 70 18 90/59 97 09/21/22 02:21 85 18 107/81 92 L 09/20/22 23:52 74 18 105/73 99 09/20/22 18:02 63 18 123/72 96 09/20/22 14:23 98.7 F 74 16 109/71 95 Intake and Output 09/20/22 09/21/22 09/21/22 22:59 06:59 14:59 Intake Total 118 Balance 118 Intake: Oral 118 Other: Voiding Method Toilet Patient is awake, comfortable, alert oriented 3. No acute distress. Asking for pain meds Examination of the heart S1 and S2 Examination of the lungs bilateral breath sounds are heard Abdomen is soft nontender Examination lower extremities shows no significant edema DIRECT MARKETING EXECUTIVE exam grossly intact Results - Lab Results Most recent lab results Calcium 9.1 mg/dL (8.4-10.2) 09/20/22 17:03 Magnesium 2.3 mg/dL (1.6-2.3) 09/20/22 17:03 09/20/22 17:03 09/21/22 01:00 Assessment and Plan Assessment: 1. Chronic kidney disease NKF stage IIIa secondary to solitary functioning left kidney and cardiorenal syndrome. Baseline creatinine 1.2-1.5 mg/dL 2. Hypokalemia associated with diuresis. No GI losses noted. Decrease dose of Bumex and continue potassium supplementation 3. Back pain after recent workout 4. History of pyoderma gangrenosum 5. History of tricuspid valve repair 6. 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 History of right renal artery embolism and renal atrophy with underlying history of antiphospholipid antibody syndrome Plan: Resume dose of potassium Hold evening dose of Bumex Repeat labs in a.m. Continue Cortef and Florinef
[2022-09-21] MEDS: IPRATROPIUM 0.5 MG/2.5 ML NEBU INHALATION SCH ×4 (13:37→20:45)
[2022-09-21] MEDS: SYMBICORT 160-4.5 MCG INHALER INHALATION SCH ×2 (13:44→20:45)
--- NOTE | 2022-09-21 14:36 | CT ---
EXAMINATION TYPE: CT lumbar spine wo con CT DLP: 1092.6. mGycm, Automated exposure control for dose reduction was used. DATE OF EXAM: 09/21/2022 2:12 PM COMPARISON: 07/20/2022. CLINICAL INDICATION:Female, 57 years old with history of lumbar injury; low back pain after injury. h x of back sx. TECHNIQUE: Multiple axial images were obtained from the midportion of T11 through the sacroiliac orly nts. Soft tissue and bone windows in coronal and sagittal planes were obtained and reviewed. Contrast used: none. Oral contrast used: none. FINDINGS: No evidence of fracture is identified. Postsurgical changes within the lower lumbar spine at L5 and S 1. Hardware appears intact. There is grade 1 anterolisthesis of L4 on L5. Scattered osteophyte format ion and disc space narrowing is present throughout the spine. There is laminectomy change at L5. Th ere is disc uncovering at L4-L5 with at least moderate to severe spinal canal stenosis. Disc bulge at L2-L3 and L3-L4 with mild spinal canal stenosis. Possible superimposed disc protrusion at L2-L3 cent rally. Facet joint arthropathy throughout the spine worse at L4-L5 with at least moderate bilateral n eural foraminal stenosis. Other: Atrophic appearing right kidney. Nonobstructing right 1 mm calculus and left 3 mm calculus. Ri ght upper quadrant cholecystectomy clips. IMPRESSION: 1. No evidence of fracture. 2. There is moderate degeneration changes worse at L3-L4 and L4-L5. 3. Grade 1 anterolisthesis with disc uncovering with moderate to severe L4-L5 spinal canal stenosis. 4. L2-L3 disc bulge with possible central disc protrusion with at least mild spinal canal stenosis.
[2022-09-21] MEDS: POTASSIUM CHLORIDE ER 20 MEQ TAB.ER PO SCH ×2 (16:20→22:44)
[2022-09-21] MEDS: LIDOCAINE 5% PATCH TOPICAL SCH (18:01)
[2022-09-21] MEDS ORDERED: ONDANSETRON 4 MG/2 ML VIAL IVP PRN (19:07)
--- NOTE | 2022-09-21 19:27 | P.PN ---
Progress Note - Text Progress Note Date: 09/21/[address] reviewed. Pt is s/p L5-S1 posterior fusion. She has ASD L4-5 with grade I spondylolisthesis, severe spondylosis and foraminal stenosis. There is also ASD of L3-4 as well with complete disc collapse, foraminal and central stenosis. No fractures. No lesions noted. If symptomatic, would recommend MRI for better eval of the neural elements. She would likely need revision fusion surgery. Can start with conservative care as able.
[2022-09-21] MEDS ORDERED: BUMETANIDE 1 MG TAB PO SCH (21:00)
[2022-09-21] MEDS ORDERED: ATORVASTATIN 40 MG TAB PO SCH (21:00)
[2022-09-22] MEDS: diphenhydrAMINE 50 MG/ML 1 ML VIAL IVP PRN ×3 (05:54→18:14)
[2022-09-22] MEDS: HYDROmorphone 1 MG/ML 1 ML SYRINGE IVP PRN ×4 (05:54→18:14)
--- NOTE | 2022-09-22 05:55 | HP ---
HISTORY AND PHYSICAL HISTORY OF PRESENT ILLNESS: This is a 57-year-old white female, chronic kidney disease stage IIIA, came in with severe injury to her back and lumbar laminectomy. She came in with severe lumbar disc herniation with right leg hemiparesis and difficulty lifting. There is no people here to do an epidural injection. Dr. San is consulted for possible surgery. Continue PT, OT. REVIEW OF SYSTEMS: A 14-point review of systems, otherwise negative. PHYSICAL EXAMINATION: PSYCH: Fair mood and affect. OPHTHALMOLOGIC: Pupils equal, round, and reactive. LUNGS: Clear. GI: Soft. CARDIOVASCULAR: S1, S2. NEUROLOGIC: Alert and oriented x3. MEDICATIONS: Reviewed. ALLERGIES: Reviewed. ASSESSMENT: Chronic kidney disease stage IIIA, severe hypokalemia, improved since admission, boluses, acute lumbar disc herniation. Wait for Dr. San recommendations. MR CT scan of the lumbar spine. She has pyoderma gangrenosum, tricuspid valve repair, hypopituitarism, maintaining Cortef, Florinef, history of right renal artery embolism, renal atrophy, medium dose of potassium. Hold Bumex. Continue on Cortef, Florinef, muscle relaxer for lumbar spine, lidocaine patches, wait for neurosurgical or evaluation of the lumbar spine. MMODL / IJN: [id number] /
[2022-09-22 08:26] VITALS: RESP 19
[2022-09-22 08:32] LABS: Basophils % (A) 0 %; Eosinophils # (A) 0.1 k/uL (0-0.7); Eosinophils % (A) 2 %; HCT 33.6 % (34.0-46.0); HGB 11.4 gm/dL (11.4-16.0); Lymphocytes % (A) 21 %; MCH 29.8 pg (25.0-35.0); MCHC 33.8 g/dL (31.0-37.0); MCV 88.2 fL (80.0-100.0); Mean Platelet Volume 8.8; Monocytes # (A) 0.3 k/uL (0-1.0); Monocytes % (A) 6 %; Neutrophils # (A) 3.2 k/uL (1.3-7.7); Neutrophils % (A) 67 %; Platelet Count 224 k/uL (150-450); RBC 3.81 m/uL (3.80-5.40); RDW 14.1 % (11.5-15.5); WBC 4.8 k/uL (3.8-10.6)
[2022-09-22] MEDS: SYMBICORT 160-4.5 MCG INHALER INHALATION SCH (08:54)
[2022-09-22] MEDS: IPRATROPIUM 0.5 MG/2.5 ML NEBU INHALATION SCH ×3 (08:54→15:52)
[2022-09-22 08:55] LABS: ALT 27 U/L (4-34); AST 34 U/L (14-36); African American GFR (CKD) 52 (>60 ml/min/1.73 sqM); Albumin/Globulin Ratio 1.6; Alkaline Phosphatase 58 U/L (38-126); Anion Gap 9 mmol/L; Blood Urea Nitrogen 30 mg/dL (7-17); Calcium 9.3 mg/dL (8.4-10.2); Carbon Dioxide 23 mmol/L (22-30); Chloride 105 mmol/L (98-107); Globulin 2.5 g/dL; Glucose 88 mg/dL (74-99); Non-African American GFR(CKD) 45 (>60 ml/min/1.73 sqM); Potassium 4.5 mmol/L (3.5-5.1); Sodium 137 mmol/L (137-145); Total Bilirubin 0.6 mg/dL (0.2-1.3); Total Protein 6.5 g/dL (6.3-8.2)
[2022-09-22] MEDS ORDERED: CYCLOBENZAPRINE 10 MG TAB PO SCH ×2 (09:00→16:00)
[2022-09-22] MEDS: GABAPENTIN 300 MG CAP PO SCH ×2 (09:12→14:45)
[2022-09-22] MEDS: PANTOPRAZOLE 40 MG TABLET PO SCH (09:12)
[2022-09-22] MEDS: POTASSIUM CHLORIDE ER 20 MEQ TAB.ER PO SCH ×2 (09:12→14:39)
[2022-09-22] MEDS: SERTRALINE 100 MG TAB PO SCH (09:12)
[2022-09-22] MEDS: ZONISAMIDE 100 MG CAP PO SCH (09:13)
[2022-09-22] MEDS: HYDROCORTISONE 10 MG TAB PO SCH (09:13)
[2022-09-22] MEDS: busPIRone HCl 5 MG TAB PO SCH (09:14)
[2022-09-22] MEDS: APIXABAN 5 MG TAB PO SCH (09:14)
[2022-09-22] MEDS: METOPROLOL SUCCINATE (ER) 25 MG TAB.ER.24H PO SCH (09:14)
[2022-09-22] MEDS: SPIRONOLACTONE 25 MG TAB PO SCH (09:14)
[2022-09-22] MEDS: BUMETANIDE 1 MG TAB PO SCH (09:14)
[2022-09-22] MEDS: FLUDROCORTISONE 0.1 MG TAB PO SCH (09:14)
[2022-09-22] MEDS: LIDOCAINE 5% PATCH TOPICAL SCH (09:15)
--- NOTE | 2022-09-22 10:56 | P.PN ---
Subjective Patient is seen for follow-up for hypokalemia secondary to diuretics. Potassium has been replaced. Patient has been complaining of back pain and states that she may need surgery. Patient was evaluated by orthopedic surgery. No complaints of chest pains or shortness of breath. Objective - Vital Signs Vital signs: Vital Signs Temp 98.4 F 09/22/22 07:29 Pulse 81 09/22/22 07:29 Resp 19 09/22/22 07:29 BP 103/66 09/22/22 07:29 Pulse Ox 96 09/22/22 08:55 FiO2 21 09/22/22 08:55 Intake & Output 09/21/22 09/22/22 09/22/22 18:59 06:59 18:59 Intake Total 706 236 Balance 706 236 Weight 71.668 kg 76.2 kg Intake: Oral 706 236 Other: Voiding Method Toilet # Voids 3 1 - Exam Awake, comfortable, no acute distress Examination of the heart S1 and S2 Examination the lungs bilateral breath sounds are heard, no crackles or wheezing is heard Abdomen is soft nontender Examination lower extremity shows no significant edema. 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 Chronic kidney disease NKF stage IIIa secondary to solitary functioning left kidney and cardiorenal syndrome. Baseline creatinine 1.2-1.5 mg/dL 2. Hypokalemia associated with diuresis. No GI losses noted. Decrease dose of Bumex and continue potassium supplementation 3. Back pain after recent workout, status post evaluation by orthopedic surgery. Conservative management recommended for now. 4. History of pyoderma gangrenosum 5. History of tricuspid valve repair 6. 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 History of right renal artery embolism and renal atrophy with underlying history of antiphospholipid antibody syndrome Plan: Continue current dose of potassium and will resume her home dose of Bumex as well. Repeat labs in a.m. Continue Conor and Shamar
--- NOTE | 2022-09-22 11:15 | P.CNOR ---
History of Present Illness - HPI Consult date: 09/22/22 Requesting physician: Franklin Hassan Consult reason: low back pain, other (Degernative disc disease) History of present illness: History of Presenting Illness Patient is a pleasant 57-year-old female who presented to the ER due to an increase of her chronic back pain. Patient reports that she has had multiple procedures performed in [place] of her lumbar spine, to include L5-S1 microdiscectomy and 2 fusions. Patient reports an increase of her low back pain over the last 34 days that she has not been able to control on her current regimen. She reports that the pain increases at night while laying down. Patient reports an increase in her bilateral lower extremity radiculopathy with the right lower extremity being worse with shooting pain into her groin and having difficulty lifting her leg off the bed. Patient states that she lives at home with her spouse and they have just recently moved to [place] from [place]. She states she is normally independent with no assisted devices. Patient does have a medical history of Antiphospholipid antibody syndrome which causes clots and bleeding, multiple PEs, Hypotension, CKD stage III, and lupus; pyoderma gangrenosum. Patient does have a pacemaker and is on Eliquis. She does report that she is normally on Bumex, but this has been placed on hold due to her hypokalemia. She states she is up 9lbs since admission. Patient was seen and examined at bedside this morning. Patient is resting currently in bed. She states that her pain is somewhat improved with the Lidoderm patch that has been provided since admission. She continues to report an aching lumbar pain that radiates into her bilateral lower extremities, associated with numbness and tingling. She states her right lower extremity is worse. Patient states she feels she is ready for surgery and that she had been informed by her previous surgeon that she would need a revision. Discussed with patient in length that we would like to get her pain under control and have her follow up outpatient so we could plan her surgery. Patient verbalizes understanding. CT of the lumbar spine reviewed and noted by Dr. San. Review of Systems Pertinent positives and negatives as discussed in HPI, a complete review of systems was performed and all other systems are negative. Physical Examination Patient is awake, alert and oriented. No acute distress. Well developed, hydrated and nourished. Appears stated age. They do not appear septic. On exam, the patient has mild tenderness to palpation of their lumbar spine over the L4-L5 region. There is no edema or ballottement sign. Skin is warm, dry and intact without rashes or lesions. Appropriate color for ethnicity. Nailbeds pink with no cyanosis or clubbing. Upper and lower extremities are atraumatic in appearance without tenderness or deformity. Patient has multiple scarring due to pitting from the pyoderma gangrenosum. Generalized edema to upper and lower extremities. Full range of motion is noted to all joints w/o pain. Muscle strength is 5/5 bilaterally in upper extremities and left lower extremities. Patient is 4-/5 in her right quadricep causing her difficultly lifting her leg out of bed. 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 Dorsi/plantar flexion is normal bilaterally.Tendon function is normal. Capillary refill is less than 3 seconds in all extremities. Palpable dorsalis pedis and posterior tibial pulses. Sensation is intact bilaterally, They are intact to light touch sensation in L2 to S1 nerve distribution. Reflexes 2+ bilaterally. Cranial nerves are intact. Straight leg raise test is negative bilaterally. No clonus is noted. No ten sioning signs. Compartments are soft and compressible. Steady gait noted. Assessment s/p L5-S1 posterior fusion L3-L4 spinal stenosis L4-5 with grade I spondylolisthesis Severe spondylosis and foraminal stenosis Adjacent segment disease L3-L4, L4-L5 with bilateral foraminal stenosis Complex medical comorbidities Plan At this time we do not recommend any emergent/urgent orthopedic surgical int ervention. Recommend CT myelogram of the Lumbar spine when medically stable to do so. 2. Appreciate medical management 3. Pain management - Continue with current regimen 4. GI prophylaxis - per medicine 5. DVT prophylaxis - Eliquis 6. PT/OT - weightbearing as tolerated with a walker as needed. 7. Appreciate consult We will continue to follow patient during her hospital stay. I reviewed and discussed this case with my attending Dr. San, whom has reviewed this chart and films and is in agreement with assessment and plan of care as outlined above. I have personally seen and examined the patient, performed the documentation and the assessment and plan as written. Number of minutes spent on the visit: 20m. 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 for low K+ History of Any Multi-Drug Resistant Organisms: C-DIFF Year Discovered:: 2021 MDRO Source:: Stool Past Surgical History: Back Surgery, Breast Surgery, Cardiac Valve Replacement, Section, Cholecystectomy, Heart Catheterization, Hysterectomy, Pa karlieaker Additional Past Surgical History / Comment(s): pacemaker d/t bradyc ardia/hypotension with last one place in 2013 in [place], [place], 3 lower back surgeries, bilateral breast reduction. 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 She i s independent. Smoking Status: Former smoker Past Alcohol Use History: None Reported Past Drug Use History: None Reported Additional Drug Use History / Comment(s): Marijuana use prn per pt. - Past Family History Mother Additional Family Medical History / Comment(s): Mother at the age of 49 yrs after surgery for silicon breast implants with a leak that caused ARDS and DIC per pt Father Family Medical History: Cancer, Hyperlipidemia, Hypertension Additional Family Medical History / Comment(s): Father is a colon cancer survivor. Medications and Allergies Home Medications Medication Instructions Recorded Confirmed Type Atorvastatin [Lipitor] 40 mg PO HS 09/24/21 09/20/22 History Cholestyramine (with Sugar) 4 gm PO DAILY PRN 09/24/21 09/20/22 History [Cholestyramine Packet] Gabapentin 300 mg PO TID 09/24/21 09/20/22 History Sertraline [Zoloft] 200 mg PO DAILY 09/24/21 09/20/22 History Ubrogepant [Ubrelvy] 100 mg PO BID PRN 09/24/21 09/20/22 History rOPINIRole HCL [Requip] 2 mg PO HS 09/24/21 09/20/22 History Budesonide/Glycopyr/Formoterol 1 puff INHALATION RT-BID 03/16/22 09/20/22 History [Breztri Aerosphere Inhaler] Esomeprazole Magnesium [NexIUM] 40 mg PO DAILY 03/16/22 09/20/22 History Orphenadrine Citrate [Orphenadrine 100 mg PO HS PRN 03/16/22 09/20/22 History Citrate ER] Botox 200unit Injection 1 dose INJ Q84D 04/02/22 09/20/22 History Meclizine [Antivert] 12.5 mg PO Q8H PRN 04/02/22 09/20/22 History Potassium Chloride ER [K-Dur 20] 40 meq PO TID 30 Days #90 tab 04/16/22 09/20/22 Rx Diphenhydramine 50mg/Ml Vial 50 mg IM Q6H PRN 04/18/22 09/20/22 History Dicyclomine [Bentyl] 20 mg PO TID PRN #30 tablet 04/30/22 09/20/22 Rx Ondansetron Odt [Zofran ODT] 4 mg PO Q8HR PRN #12 tab 04/30/22 09/20/22 Rx Apixaban [Eliquis] 5 mg PO BID 05/29/22 09/20/22 History Spironolactone [Aldactone] 50 mg PO BID 06/11/22 09/20/22 History busPIRone HCl [Buspar] 5 mg PO BID 06/11/22 09/20/22 History Bumetanide [BUMEX] 2 mg PO DAILY 06/24/22 09/20/22 History Hydrocortisone [Cortef] 10 mg PO BID 90 Days #180 tab 07/26/22 09/20/22 Rx Zonisamide [Zonegran] 100 mg PO Q12HR 30 Days #60 cap 07/26/22 09/20/22 Rx Bumetanide [BUMEX] 1 mg PO HS 08/26/22 09/20/22 History Lidocaine 5% Patch [Lidoderm 5% 1 patch TRANSDERM DAILY PRN 08/26/22 09/20/22 History Patch] Metoprolol Succinate (ER) [Toprol 25 mg PO DAILY #30 tab 08/27/22 09/20/22 Rx XL] Fludrocortisone [Florinef] 0.1 mg PO DAILY 09/20/22 09/20/22 History Hydrocodone/Acetaminophen 7.5-300mg 1 tab PO Q12H PRN 09/20/22 09/20/22 History Allergies Allergy/AdvReac Type Severity Reaction Status Date / Time Penicillins Allergy Severe Anaphylaxis Verified 09/20/22 17:51 vancomycin Allergy Severe Swelling Verified 09/20/22 17:51 in lips clindamycin Allergy Anaphylaxis Verified 09/20/22 17:51 dexamethasone [From Decadron] Allergy Unknown Verified 09/20/22 17:51 Influenza Virus Vaccines Allergy Unknown Verified 09/20/22 17:51 latex Allergy Unknown Verified 09/20/22 17:51 morphine Allergy Unknown Verified 09/20/22 17:51 prochlorperazine Allergy Unknown Verified 09/20/22 17:51 [From Compazine] [id number] AdvReac Confusion, Verified 09/20/22 17:51 [From Emgality Pen] increased blood pressure metoclopramide [From Reglan] AdvReac "felt like Verified 09/20/22 17:51 I needed to jump out of my skin" Results - Labs Labs: H & H 09/20/22 Range/Units 17:03 Hgb 13.0 (11.4-16.0) gm/dL Hct 38.7 (34.0-46.0) % Result Diagrams: 09/22/22 07:49 09/22/22 07:49
[2022-09-22 13:41] VITALS: BP 93/61; PULSE 75; TEMP 98.6
--- NOTE | 2022-09-22 15:36 | P.PN ---
Progress Note - Text Progress Note Date: 09/22/22 Patient seen this afternoon. She is resting comfortably in bed. Discussed with patient that the CT myelogram of the lumbar spine could not be done at this time due to her kidney function. She verbalizes understanding. She is agreeable to follow up outpatient for further evaluation and to discuss possible surgical intervention. Our contact information will be placed in discharge instructions. Orthopedics will be signing off at this time. Please feel free to reach out for any questions or concerns.
== END 2022-09-22 18:52 | disposition home or self-care (01) ==
LOC: EC 14:09 → INTOOBSV 23:52 → 3SCARD 23:52 → 4SSUR 09-21 04:05
PROVIDERS: ADMIT Family Medicine; ATTEND Family Medicine
DX: E87.6 Hypokalemia (principal); T50.2X5A Adverse effect of carbonic-anhydrase inhibitors, benzothiadiazides and other diuretics, initial encounter; I13.10 Hypertensive heart and chronic kidney disease without heart failure, with stage 1 through stage 4 chronic kidney disease, or unspecified chronic kidney disease; N18.31 Chronic kidney disease, stage 3a; M51.16 Intervertebral disc disorders with radiculopathy, lumbar region; G81.91 Hemiplegia, unspecified affecting right dominant side; I95.9 Hypotension, unspecified; M43.16 Spondylolisthesis, lumbar region; M48.061 Spinal stenosis, lumbar region without neurogenic claudication; M47.26 Other spondylosis with radiculopathy, lumbar region; D68.61 Antiphospholipid syndrome; E23.0 Hypopituitarism; L88 Pyoderma gangrenosum; M32.9 Systemic lupus erythematosus, unspecified; G40.909 Epilepsy, unspecified, not intractable, without status epilepticus; Z98.1 Arthrodesis status; G25.81 Restless legs syndrome; G43.909 Migraine, unspecified, not intractable, without status migrainosus; G89.29 Other chronic pain; M54.2 Cervicalgia; F41.9 Anxiety disorder, unspecified; Z79.899 Other long term (current) drug therapy; Z79.51 Long term (current) use of inhaled steroids; Z79.01 Long term (current) use of anticoagulants; Z79.52 Long term (current) use of systemic steroids; Z88.5 Allergy status to narcotic agent; Z88.0 Allergy status to penicillin; Z88.7 Allergy status to serum and vaccine; Z88.1 Allergy status to other antibiotic agents; Z91.040 Latex allergy status; Z88.8 Allergy status to other drugs, medicaments and biological substances; Z86.711 Personal history of pulmonary embolism; Z16.24 Resistance to multiple antibiotics; Z87.891 Personal history of nicotine dependence; Z90.49 Acquired absence of other specified parts of digestive tract; Z90.710 Acquired absence of both cervix and uterus; Z95.3 Presence of xenogenic heart valve; Z98.891 History of uterine scar from previous surgery; Z95.0 Presence of cardiac pacemaker; Z98.890 Other specified postprocedural states; Z80.0 Family history of malignant neoplasm of digestive organs; Z82.49 Family history of ischemic heart disease and other diseases of the circulatory system; Z80.9 Family history of malignant neoplasm, unspecified; Z83.49 Family history of other endocrine, nutritional and metabolic diseases
CPT/HCPCS: 96376 ×4; 96375 ×2; 96365; 96366 ×2; 99285; 36415; 94640 ×2; 94760; 93005; 80053 ×2; 84133; 83690; 83735; 84132; 84484; 85025 ×2; 81003; 72100; 71046; 72131; G0378 ×2; J1200 ×3; J1170 ×4; J3480 ×2; J1642

== ENCOUNTER 2022-10-15 20:29 | Emergency (ER) | payer BC, MEDICARE ==
[2022-10-15 20:40] VITALS: TEMP 98.4
[2022-10-15] MEDS ORDERED: LORazepam 2 MG/ML INJ IV STA (20:40)
[2022-10-15] MEDS ORDERED: SODIUM CHLORIDE 0.9% 1,000 ML IV STA (20:47)
[2022-10-15] MEDS ORDERED: levETIRAcetam IV 500 MG/5 ML VIAL IVP STA (20:47)
--- NOTE | 2022-10-15 20:49 | ED ---
Seizure HPI - General Chief Complaint: Seizure Stated Complaint: Seizure Time Seen by Provider: 10/15/22 20:35 Source: family, RN notes reviewed, old records reviewed, Caregiver Mode of arrival: wheelchair - History of Present Illness Initial Comments: This is a 49-year-old female presenting with seizure activity. Patient presents with who did drive patient to the emergency department. Patient brought herew the emergency department. She began to have [id number] activity, patient can feel her seizure maybe coming on with muscle stiffness. At this time here in the ER patient is unresponsive and showing evidence of seizure activity. Patient is a poor historian history obtained from and prior charting MD Complaint: seizure -: days(s) Description of Episode: loss of consciousness, tonic-clonic movement -: minutes(s) Witnessed: yes - by bystander Seizure History: known seizure disorder, history of non-compliance with treatment Place: home Possible Precipitating Event: none Associated Symptoms: denies other symptoms Treatments Prior to Arrival: none - Related Data Home Medications Medication Instructions Recorded Confirmed Atorvastatin [Lipitor] 40 mg PO HS 09/24/21 09/20/22 Cholestyramine (with Sugar) 4 gm PO DAILY PRN 09/24/21 09/20/22 [Cholestyramine Packet] Gabapentin 300 mg PO TID 09/24/21 09/20/22 Sertraline [Zoloft] 200 mg PO DAILY 09/24/21 09/20/22 Ubrogepant [Ubrelvy] 100 mg PO BID PRN 09/24/21 09/20/22 rOPINIRole HCL [Requip] 2 mg PO HS 09/24/21 09/20/22 Budesonide/Glycopyr/Formoterol 1 puff INHALATION RT-BID 03/16/22 09/20/22 [Breztri Aerosphere Inhaler] Esomeprazole Magnesium [NexIUM] 40 mg PO DAILY 03/16/22 09/20/22 Orphenadrine Citrate [Orphenadrine 100 mg PO HS PRN 03/16/22 09/20/22 Citrate ER] Botox 200unit Injection 1 dose INJ Q84D 04/02/22 09/20/22 Meclizine [Antivert] 12.5 mg PO Q8H PRN 04/02/22 09/20/22 Diphenhydramine 50mg/Ml Vial 50 mg IM Q6H PRN 04/18/22 09/20/22 Apixaban [Eliquis] 5 mg PO BID 05/29/22 09/20/22 Spironolactone [Aldactone] 50 mg PO BID 06/11/22 09/20/22 busPIRone HCl [Buspar] 5 mg PO BID 06/11/22 09/20/22 Bumetanide [BUMEX] 2 mg PO DAILY 06/24/22 09/20/22 Bumetanide [BUMEX] 1 mg PO HS 08/26/22 09/20/22 Lidocaine 5% Patch [Lidoderm 5% 1 patch TRANSDERM DAILY PRN 08/26/22 09/20/22 Patch] Fludrocortisone [Florinef] 0.1 mg PO DAILY 09/20/22 09/20/22 Hydrocodone/Acetaminophen 7.5-300mg 1 tab PO Q12H PRN 09/20/22 09/20/22 Cyclobenzaprine [Flexeril] 10 mg PO TID 09/22/22 09/22/22 Previous Rx's Medication Instructions Recorded Potassium Chloride ER [K-Dur 20] 40 meq PO TID 30 Days #90 tab 04/16/22 Dicyclomine [Bentyl] 20 mg PO TID PRN #30 tablet 04/30/22 Ondansetron Odt [Zofran ODT] 4 mg PO Q8HR PRN #12 tab 04/30/22 Hydrocortisone [Cortef] 10 mg PO BID 90 Days #180 tab 07/26/22 Zonisamide [Zonegran] 100 mg PO Q12HR 30 Days #60 cap 07/26/22 Metoprolol Succinate (ER) [Toprol 25 mg PO DAILY #30 tab 08/27/22 XL] Allergies Allergy/AdvReac Type Severity Reaction Status Date / Time Penicillins Allergy Severe Anaphylaxis Verified 10/15/22 20:40 vancomycin Allergy Severe Swelling Verified 10/15/22 20:40 in lips clindamycin Allergy Anaphylaxis Verified 10/15/22 20:40 dexamethasone [From Decadron] Allergy Unknown Verified 10/15/22 20:40 Influenza Virus Vaccines Allergy Unknown Verified 10/15/22 20:40 latex Allergy Unknown Verified 10/15/22 20:40 morphine Allergy Unknown Verified 10/15/22 20:40 prochlorperazine Allergy Unknown Verified 10/15/22 20:40 [From Compazine] galcanezumab-gnlm AdvReac Confusion, Verified 10/15/22 20:40 [From Emgality Pen] increased blood pressure metoclopramide [From Reglan] AdvReac "felt like Verified 10/15/22 20:40 I needed to jump out of my skin" Review of Systems ROS Statement: Those systems with pertinent positive or pertinent negative responses have been documented in the HPI. ROS Other: All systems not noted in ROS Statement are negative. 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 for low K+ History of Any Multi-Drug Resistant Organisms: C-DIFF Date of last positivie culture/infection: 2021 MDRO Source:: Stool Past Surgical History: Back Surgery, Breast Surgery, Cardiac Valve Replacement, Section, Cholecystectomy, Heart Catheterization, Hysterectomy, Pacemaker Additional Past Surgical History / Comment(s): pacemaker d/t bradycardia/hypotension with last one place in 2013 in [place], [place], 3 lower back surgeries, bilateral breast reduction. 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 Past Anesthesia/Blood Transfusion Reactions: No Reported Reaction Type of Cardiac Device: Permanent Pacemaker, Unknown Device Placement Date:: 2012 Past Psychological History: Anxiety Smoking Status: Former smoker Past Alcohol Use History: None Reported Past Drug Use History: None Reported - Past Family History Mother Additional Family Medical History / Comment(s): Mother at the age of 49 yrs after surgery for silicon breast implants with a leak that caused ARDS and DIC per pt Father Family Medical History: Cancer, Hyperlipidemia, Hypertension Additional Family Medical History / Comment(s): Father is a colon cancer survivor. General Exam Limitations: altered mental status, physical limitation General appearance: alert, in no apparent distress, anxious Head exam: Present: atraumatic, normocephalic, normal inspection Eye exam: Present: normal appearance, PERRL, EOMI. Absent: scleral icterus, conjunctival injection, periorbital swelling ENT exam: Present: normal exam, mucous membranes moist Neck exam: Present: normal inspection. Absent: tenderness, meningismus, lymphadenopathy Respiratory exam: Present: normal lung sounds bilaterally. Absent: respiratory distress, wheezes, rales, rhonchi, stridor Cardiovascular Exam: Present: regular rate, normal rhythm, normal heart sounds. Absent: systolic murmur, diastolic murmur, rubs, gallop, clicks GI/Abdominal exam: Present: soft, normal bowel sounds. Absent: distended, tenderness, guarding, rebound, rigid Extremities exam: Present: normal inspection, full ROM, normal capillary refill. Absent: tenderness, pedal edema, joint swelling, calf tenderness Back exam: Present: normal inspection Neurological exam: Present: alert, oriented X3, CN II-XII intact Psychiatric exam: Present: normal affect, normal mood Skin exam: Present: warm, dry, intact, normal color. Absent: rash Course Vital Signs 10/15/22 10/15/22 10/15/22 20:36 20:57 21:20 Temperature 98.4 F Pulse Rate 92 77 70 Respiratory 16 18 17 Rate Blood Pressure 121/108 118/86 110/70 O2 Sat by Pulse 90 L 100 100 Oximetry 10/15/22 10/15/22 10/15/22 21:30 22:00 22:15 Temperature Pulse Rate 70 71 70 Respiratory 18 16 Rate Blood Pressure 110/70 123/80 104/51 O2 Sat by Pulse 100 97 Oximetry - Reevaluation(s) Reevaluation #1: 10/15/22 20:49 Medical record is reviewed Reevaluation #2: 10/15/22 20:49 Patient symptoms are improved Reevaluation #3: 10/15/22 22:48 Patient symptoms are improved here in the ER she is informed of results and questions are answered Reevaluation #4: 10/15/22 22:49 Was pt. sent in by a medical professional or institution? @ -no Did you speak to anyone other than the patient for history? @ -no Did you review nursing and triage notes? @ -agree Were old charts reviewed? @ -no Differential Diagnosis? @ -prior EKG interpreted by me (3pts min.)? @ -yes X-rays interpreted by me (1pt min.)? @ -no CT interpreted by me (1pt min.)? @ -no U/S interpreted by me (1pt. min.)? @ -no What testing was considered but not performed? (CT, X-rays, U/S, labs)? Why? @ -no What meds were considered but not given? Why? @ -no Did you discuss the management of the patient with other professionals? @ -no Did you reconcile home meds? @ -no Was smoking cessation discussed for >3mins.? @ -no Was critical care preformed (if so, how long)? @ -no Were there social determinants of health that impacted care today? How? (Homelessness, low income, unemployed, alcoholism, drug addiction, transportation, low edu. Level, literacy, decrease access to med. care, [facility], rehab)? @ -no Was there de-escalation of care discussed even if they declined? (Discuss DNR or withdrawal of care, Hospice)? @ -no What co-morbidities impacted this encounter? (DM, HTN, Smoking, COPD, CAD, Cancer, CVA, Hep., AIDS, mental health diagnosis, sleep apnea, morbid obesity)? @ -none Was patient admitted / discharged? @ -57 female presents today for evaluation with seizure-like activity history of pseudoseizures and hypokalemia muscle pain. Patient symptoms are resolved here in the ER she feels good for discharge home Discharge Undiagnosed new problem with uncertain prognosis? @ -no Drug Therapy requiring intensive monitoring for toxicity (Heparin, Nitro, Insulin, Cardizem)? @ -no Were any procedures done? @ -no Diagnosis/symptom? @ -Acute recurrent seizures Acute, or Chronic, or Acute on Chronic? @ -Acute on chronic Uncomplicated (without systemic symptoms) or Complicated (systemic symptoms)? @ -uncomplicated Side effects of treatment? @ -no Exacerbation, Progression, or Severe Exacerbation] @ -no Poses a threat to life or bodily function? @ -yes . Seizure-like activity become status epilepticus Reevaluation #5: 10/15/22 22:49 Differential Seizure: Recurrent seizure disorder, febrile seizure, alcohol withdrawal, stimulants, meningitis, encephalitis, intercranial hemorrhage, intracranial tumor, stroke, eclampsia, thyrotoxicosis, hypocalcemia, hyponatremia, hypernatremia, hypomagnesemia, psychogenic, this is not meant to be an all-inclusive list. Medical Decision Making - Medical Decision Making 57 female presents today for evaluation with seizure-like activity history of pseudoseizures and hypokalemia muscle pain. Patient symptoms are resolved here in the ER she feels good for discharge home - Lab Data Result diagrams: 10/15/22 20:58 10/15/22 20:58 Lab Results 10/15/22 10/15/22 10/15/22 Range/Units 20:58 20:58 20:58 WBC 9.7 (3.8-10.6) k/uL RBC 4.89 (3.80-5.40) m/uL Hgb 14.2 (11.4-16.0) gm/dL Hct 44.0 (34.0-46.0) % MCV 90.0 (80.0-100.0) fL MCH 29.1 (25.0-35.0) pg MCHC 32.4 (31.0-37.0) g/dL RDW 13.8 (11.5-15.5) % Plt Count 349 (150-450) k/uL MPV 8.5 Neutrophils % 74 % Lymphocytes % 17 % Monocytes % 5 % Eosinophils % 2 % Basophils % 0 % Neutrophils # 7.1 (1.3-7.7) k/uL Lymphocytes # 1.6 (1.0-4.8) k/uL Monocytes # 0.5 (0-1.0) k/uL Eosinophils # 0.2 (0-0.7) k/uL Basophils # 0.0 (0-0.2) k/uL Sodium 137 (137-145) mmol/L Potassium 3.4 L (3.5-5.1) mmol/L Chloride 94 L (98-107) mmol/L Carbon Dioxide 26 (22-30) mmol/L Anion Gap 17 mmol/L BUN 56 H (7-17) mg/dL Creatinine 1.85 H (0.52-1.04) mg/dL Est GFR (CKD-EPI)AfAm 34 (>60 ml/min/1.73 sqM) Est GFR (CKD-EPI)NonAf 30 (>60 ml/min/1.73 sqM) Glucose 132 H (74-99) mg/dL Calcium 9.6 (8.4-10.2) mg/dL Magnesium 2.3 (1.6-2.3) mg/dL Total Bilirubin 0.4 (0.2-1.3) mg/dL AST 34 (14-36) U/L ALT 27 (4-34) U/L Alkaline Phosphatase 81 (38-126) U/L Total Protein 8.1 (6.3-8.2) g/dL Albumin 4.9 (3.5-5.0) g/dL Urine Color Light Yellow Urine Appearance Clear (Clear) Urine pH 5.5 (5.0-8.0) Ur Specific [place] 1.009 (1.001-1.035) Urine Protein Negative (Negative) Urine Glucose (UA) Negative (Negative) Urine Ketones Negative (Negative) Urine Blood Negative (Negative) Urine Nitrite Negative (Negative) Urine Bilirubin Negative (Negative) Urine Urobilinogen <2.0 (<2.0) mg/dL Ur Leukocyte Esterase Trace H (Negative) Urine RBC 1 (0-5) /hpf Urine WBC 3 (0-5) /hpf Hyaline Casts 16 H (0-2) /lpf Urine Mucus Rare H (None) /hpf Salicylates <1.0 mg/dL Urine Opiates Screen Detected H (NotDetected) Ur Oxycodone Screen Not Detected (NotDetected) Urine Methadone Screen Not Detected (NotDetected) Ur Propoxyphene Screen Not Detected (NotDetected) Acetaminophen <10.0 ug/mL Ur Barbiturates Screen Not Detected (NotDetected) U Tricyclic Antidepress Detected H (NotDetected) Ur Phencyclidine Scrn Not Detected (NotDetected) Ur Amphetamines Screen Not Detected (NotDetected) U Methamphetamines Scrn Not Detected (NotDetected) U Benzodiazepines Scrn Not Detected (NotDetected) Urine Cocaine Screen Not Detected (NotDetected) U Marijuana (THC) Screen Not Detected (NotDetected) - EKG Data -: EKG Interpreted by Me (EKG is paced 70 DC 174 QRS 97 QTC 439) Disposition Clinical Impression: Seizure-like activity, Generalized seizure, Muscle spasm, Hypokalemia Disposition: HOME SELF-CARE Condition: Fair Instructions (If sedation given, give patient instructions): Seizure/Epilepsy Discharge Instructions & Follow-Up, Recurrent Seizures in Adults (ED) Is patient prescribed a controlled substance at d/c from ED?: No Referrals: Franklin Hassan MD [Primary Care Provider] - 1-2 days Time of Disposition: 21:45
[2022-10-15 21:06] LABS: Basophils % (A) 0 %; Eosinophils # (A) 0.2 k/uL (0-0.7); Eosinophils % (A) 2 %; HGB 14.2 gm/dL (11.4-16.0); Lymphocytes # (A) 1.6 k/uL (1.0-4.8); Lymphocytes % (A) 17 %; MCH 29.1 pg (25.0-35.0); MCHC 32.4 g/dL (31.0-37.0); Mean Platelet Volume 8.5; Monocytes # (A) 0.5 k/uL (0-1.0); Monocytes % (A) 5 %; Neutrophils # (A) 7.1 k/uL (1.3-7.7); Neutrophils % (A) 74 %; Platelet Count 349 k/uL (150-450); RBC 4.89 m/uL (3.80-5.40); RDW 13.8 % (11.5-15.5); WBC 9.7 k/uL (3.8-10.6)
[2022-10-15 21:20] LABS: Potassium 3.4 mmol/L (3.5-5.1)
[2022-10-15 21:21] LABS: ALT 27 U/L (4-34); AST 34 U/L (14-36); Acetaminophen <10.0 ug/mL; African American GFR (CKD) 34 (>60 ml/min/1.73 sqM); Albumin 4.9 g/dL (3.5-5.0); Alkaline Phosphatase 81 U/L (38-126); Anion Gap 17 mmol/L; Blood Urea Nitrogen 56 mg/dL (7-17); Calcium 9.6 mg/dL (8.4-10.2); Carbon Dioxide 26 mmol/L (22-30); Chloride 94 mmol/L (98-107); Glucose 132 mg/dL (74-99); Magnesium 2.3 mg/dL (1.6-2.3); Non-African American GFR(CKD) 30 (>60 ml/min/1.73 sqM); Salicylate <1.0 mg/dL; Sodium 137 mmol/L (137-145); Total Bilirubin 0.4 mg/dL (0.2-1.3); Total Protein 8.1 g/dL (6.3-8.2)
[2022-10-15 21:24] VITALS: PULSE 70
[2022-10-15] MEDS ORDERED: POTASSIUM BICARBONATE/CIT AC 20 MEQ TABLET.EFF PO ONE (21:45)
[2022-10-15 22:10] LABS: Appearance,Urine Clear (Clear); Bilirubin,Urine Negative (Negative); Blood,Urine Negative (Negative); Color,Urine Light Yellow; Glucose,Urine (UA) Negative (Negative); Hyaline Casts,Urine 16 /lpf (0-2); Ketones,Urine Negative (Negative); Leukocyte Esterase,Urine Trace (Negative); Mucus,Urine Rare /hpf; Nitrite,Urine Negative (Negative); PH, Urine 5.5 (5.0-8.0); Protein,Urine Negative (Negative); RBC,Urine 1 /hpf (0-5); Specific Gravity,Urine 1.009 (1.001-1.035); Urobilinogen,Urine <2.0 mg/dL (<2.0); WBC,Urine 3 /hpf (0-5)
[2022-10-15 22:21] LABS: Amphetamine Screen,Urine Not Detected (NotDetected); Barbiturate Screen,Urine Not Detected (NotDetected); Benzodiazepines Screen,Urine Not Detected (NotDetected); Cocaine Screen,Urine Not Detected (NotDetected); Methadone Screen, Urine Not Detected (NotDetected); Opiate Screen,Urine Detected (NotDetected); Oxycodone Screen, Urine Not Detected (NotDetected); Phencyclidine Screen,Urine Not Detected (NotDetected); Tricyclic Antidepressant,Urine Detected (NotDetected); Urn Cannabinoid Scrn Not Detected (NotDetected)
[2022-10-15 22:28] VITALS: BP 104/51; RESP 16
[2022-10-15] MEDS ORDERED: HYDROcodone/APAP 5-325MG 1 EACH TAB PO STA (22:34)
== END 2022-10-15 22:48 | disposition home or self-care (01) ==
LOC: EC 20:29
DX: E87.6 Hypokalemia (principal); G40.89 Other seizures; M62.838 Other muscle spasm; N18.30 Chronic kidney disease, stage 3 unspecified; F41.9 Anxiety disorder, unspecified; Z87.891 Personal history of nicotine dependence; Z88.0 Allergy status to penicillin; Z88.1 Allergy status to other antibiotic agents; Z88.5 Allergy status to narcotic agent; Z88.7 Allergy status to serum and vaccine; Z91.040 Latex allergy status; Z88.8 Allergy status to other drugs, medicaments and biological substances; Z79.01 Long term (current) use of anticoagulants; Z79.51 Long term (current) use of inhaled steroids; Z79.899 Other long term (current) drug therapy
CPT/HCPCS: 36415; 93005; 80053; 83735; 85025; 81001; 80306; 80143; 80179; 99284; J2060; J1953

== ENCOUNTER 2022-10-28 22:02 | Inpatient (IN) | payer BC, MEDICARE ==
[2022-10-28] MEDS ORDERED: SODIUM CHLORIDE 0.9% 1,000 ML IV STA (22:22)
[2022-10-28] MEDS ORDERED: IBUPROFEN 600 MG TAB PO STA (22:22)
[2022-10-28] MEDS ORDERED: ACETAMINOPHEN TAB 500 MG TAB PO STA (22:22)
--- NOTE | 2022-10-28 22:29 | ED ---
Recheck HPI - General Chief Complaint: Chest Pain Stated Complaint: Chest Pain,SOB,Temp Time Seen by Provider: 10/28/22 22:21 Source: family, RN notes reviewed, old records reviewed, Caregiver Mode of arrival: wheelchair Limitations: no limitations - History of Present Illness Initial Comments: This is a 57 -year-old female. This patient presents today for evaluation of multiple complaints, patient fever chest pain weakness. History of lupus. Recent inpatient hospitalizations secondary to sepsis and infection. MD Complaint: wound re-check, abnormal lab, other (Fever, chest pain) -: days(s) Returns Today for: Called Because of Abnormal Lab/Test, needs IV antibiotics, pe rsistent/worsening pain related to initial visit Symptoms Since Prior Visit: worsening pain, worsening swelling, worsening redness, fever Associated Symptoms: fever, chills, chest pain, shortness of breath, malaise Treatments Prior to Arrival: Given Antibiotics on - Related Data Home Medications Medication Instructions Recorded Confirmed Atorvastatin [Lipitor] 40 mg PO HS 09/24/21 10/29/22 Cholestyramine (with Sugar) 4 gm PO DAILY PRN 09/24/21 10/29/22 [Cholestyramine Packet] Gabapentin 600 mg PO QID 09/24/21 10/29/22 Sertraline [Zoloft] 200 mg PO DAILY 09/24/21 10/29/22 Ubrogepant [Ubrelvy] 100 mg PO BID PRN 09/24/21 10/29/22 rOPINIRole HCL [Requip] 2 mg PO HS 09/24/21 10/29/22 Budesonide/Glycopyr/Formoterol 1 puff INHALATION RT-BID 03/16/22 10/29/22 [Breztri Aerosphere Inhaler] Esomeprazole Magnesium [NexIUM] 40 mg PO DAILY 03/16/22 10/29/22 Botox 200unit Injection 1 dose INJ Q84D 04/02/22 10/29/22 Meclizine [Antivert] 12.5 mg PO Q8H PRN 04/02/22 10/29/22 Diphenhydramine 50mg/Ml Vial 50 mg IM Q6H PRN 04/18/22 10/29/22 Apixaban [Eliquis] 5 mg PO BID 05/29/22 10/29/22 Spironolactone [Aldactone] 50 mg PO TID 06/11/22 10/29/22 busPIRone HCl [Buspar] 5 mg PO BID 06/11/22 10/29/22 Bumetanide [BUMEX] 2 mg PO DAILY 06/24/22 10/29/22 Bumetanide [BUMEX] 1 mg PO HS 08/26/22 10/29/22 Lidocaine 5% Patch [Lidoderm 5% 1 patch TRANSDERM DAILY PRN 08/26/22 10/29/22 Patch] Fludrocortisone [Florinef] 0.1 mg PO DAILY 09/20/22 10/29/22 Cyclobenzaprine [Flexeril] 10 mg PO TID 09/22/22 10/29/22 HYDROcodone/APAP 7.5-325MG [Tonalea 1 tab PO TID PRN 10/29/22 10/29/22 7.5-325] Levofloxacin [Levaquin] 500 mg PO DAILY 10/29/22 10/29/22 Metoprolol Succinate (ER) [Toprol 25 mg PO DAILY PRN 10/29/22 10/29/22 XL] Midodrine [ProAmatine] 5 mg PO TID PRN 10/29/22 10/29/22 Potassium Chloride ER [K-Dur 20] 40 meq PO BID 10/29/22 10/29/22 predniSONE See Taper PO DIRECTED 10/29/22 10/29/22 Previous Rx's Medication Instructions Recorded Dicyclomine [Bentyl] 20 mg PO TID PRN #30 tablet 04/30/22 Ondansetron Odt [Zofran ODT] 4 mg PO Q8HR PRN #12 tab 04/30/22 Zonisamide [Zonegran] 100 mg PO Q12HR 30 Days #60 cap 07/26/22 Allergies Allergy/AdvReac Type Severity Reaction Status Date / Time Penicillins Allergy Severe Anaphylaxis Verified 10/29/22 08:17 vancomycin Allergy Severe Swelling Verified 10/29/22 08:17 in lips clindamycin Allergy Anaphylaxis Verified 10/29/22 08:17 dexamethasone [From Decadron] Allergy Unknown Verified 10/29/22 08:17 Influenza Virus Vaccines Allergy Unknown Verified 10/29/22 08:17 latex Allergy Unknown Verified 10/29/22 08:17 morphine Allergy Unknown Verified 10/29/22 08:17 prochlorperazine Allergy Unknown Verified 10/29/22 08:17 [From Compazine] [id number]-gnlm AdvReac Confusion, Verified 10/29/22 08:17 [From Emgality Pen] increased blood pressure metoclopramide [From Reglan] AdvReac "felt like Verified 10/29/22 08:17 I needed to jump out of my skin" Review of Systems ROS Statement: Those systems with pertinent positive or pertinent negative responses have been documented in the HPI. ROS Other: All systems not noted in ROS Statement are negative. 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 for low K+ History of Any Multi-Drug Resistant Organisms: C-DIFF Date of last positivie culture/infection: 2021 MDRO Source:: Stool Past Surgical History: Back Surgery, Breast Surgery, Cardiac Valve Replacement, Section, Cholecystectomy, Heart Catheterization, Hysterectomy, Pacemaker Additional Past Surgical History / Comment(s): pacemaker d/t bradycardia/hypotension with last one place in 2013 in [place], [place], 3 lower back surgeries, bilateral breast reduction. 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 Past Anesthesia/Blood Transfusion Reactions: No Reported Reaction Type of Cardiac Device: Permanent Pacemaker, Unknown Device Placement Date:: 2012 Past Psychological History: Anxiety Smoking Status: Former smoker Past Alcohol Use History: None Reported Past Drug Use History: Marijuana - Past Family History Mother Additional Family Medical History / Comment(s): Mother at the age of 49 yrs after surgery for silicon breast implants with a leak that caused ARDS and DIC per pt Father Family Medical History: Cancer, Hyperlipidemia, Hypertension Additional Family Medical History / Comment(s): Father is a colon cancer survivor. General Exam Limitations: no limitations General appearance: alert, in no apparent distress Head exam: Present: atraumatic, normocephalic, normal inspection Eye exam: Present: normal appearance, PERRL, EOMI. Absent: scleral icterus, conjunctival injection, periorbital swelling ENT exam: Present: normal exam, mucous membranes moist Neck exam: Present: normal inspection. Absent: tenderness, meningismus, lymphadenopathy Respiratory exam: Present: normal lung sounds bilaterally. Absent: respiratory distress, wheezes, rales, rhonchi, stridor Cardiovascular Exam: Present: regular rate, normal rhythm, normal heart sounds. Absent: systolic murmur, diastolic murmur, rubs, gallop, clicks GI/Abdominal exam: Present: soft, normal bowel sounds. Absent: distended, tenderness, guarding, rebound, rigid Extremities exam: Present: normal inspection, full ROM, normal capillary refill. Absent: tenderness, pedal edema, joint swelling, calf tenderness Back exam: Present: normal inspection Neurological exam: Present: alert, oriented X3, CN II-XII intact Psychiatric exam: Present: normal affect, normal mood Skin exam: Present: warm, dry, intact, normal color. 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 ] Pulse Rate [ Pulse Oximetery ] Respiratory 20 20 Rate Blood Pressure 140/85 132/82 Blood Pressure [Right Arm] O2 Sat by Pulse 94 L 96 Oximetry 10/29/22 10/29/22 10/29/22 00:30 01:22 01:30 Temperature 98.3 F 98.6 F Pulse Rate 70 70 Pulse Rate [ Freelance Designer ] Pulse Rate [ 93 Pulse Oximetery ] Respiratory 18 20 16 Rate Blood Pressure 132/76 121/72 Blood Pressure 122/76 [Right Arm] O2 Sat by Pulse 98 98 Oximetry 10/29/22 02:29 Temperature Pulse Rate 70 Pulse Rate [ Freelance Designer ] Pulse Rate [ Pulse Oximetery ] Respiratory 16 Rate Blood Pressure 122/75 Blood Pressure [Right Arm] O2 Sat by Pulse 95 Oximetry - Reevaluation(s) Reevaluation #1: 10/29/22 00:55 Medical records reviewed 10/29/22 00:55 Attempt to get medical records from family Is Made Reevaluation #2: 10/29/22 00:56 Patient has mild improvement in symptoms here in the ER Reevaluation #3: 10/29/22 00:56 Patient is informed of results and questions are answered Reevaluation #4: 10/29/22 00:48 Was pt. sent in by a medical professional or institution? @ -no Did you speak to anyone other than the patient for history? @ -no Did you review nursing and triage notes? @ -agree Were old charts reviewed? @ -yes Differential Diagnosis? @ -prior EKG interpreted by me (3pts min.)? @ -yes X-rays interpreted by me (1pt min.)? @ -yes CT interpreted by me (1pt min.)? @ -yes U/S interpreted by me (1pt. min.)? @ -no What testing was considered but not performed? (CT, X-rays, U/S, labs)? Why? @ -no What meds were considered but not given? Why? @ -no Did you discuss the management of the patient with other professionals? @ -no Did you reconcile home meds? @ -no Was smoking cessation discussed for >3mins.? @ -no Was critical care preformed (if so, how long)? @ -no Were there social determinants of health that impacted care today? How? (Homelessness, low income, unemployed, alcoholism, drug addiction, transportation, low edu. Level, literacy, decrease access to med. care, group home, rehab)? @ -no Was there de-escalation of care discussed even if they declined? (Discuss DNR or withdrawal of care, Hospice)? @ -no What co-morbidities impacted this encounter? (DM, HTN, Smoking, COPD, CAD, Cancer, CVA, Hep., AIDS, mental health diagnosis, sleep apnea, morbid obesity)? @ -none Was patient admitted / discharged? @ -57 female to the ED co fever and not feeling well. Patient does have chest pain here in the ER, on found cause of chest pain here in the ER with recent inpatient hospitalization for similar. Patient be admitted for further evaluation management regarding causes of fever as well as need for pain control Admitted Undiagnosed new problem with uncertain prognosis? @ -no Drug Therapy requiring intensive monitoring for toxicity (Heparin, Nitro, Insulin, Cardizem)? @ -no Were any procedures done? @ -no Diagnosis/symptom? @ -Fever,CP,Sepsis Acute, or Chronic, or Acute on Chronic? @ -acute Uncomplicated (without systemic symptoms) or Complicated (systemic symptoms)? @ -complicated Side effects of treatment? @ -no Exacerbation, Progression, or Severe Exacerbation] @ -no Poses a threat to life or bodily function? @ -yes sepsis Reevaluation #5: 10/29/22 00:48 Differential Chest Pain: Stable Angina, Unstable Angina, STEMI, NSTEMI Aortic Dissection, Pneumothorax, Musculoskeletal, Esophageal Spasm GERD, Cholecystitis, Pancreatitis, Zoster, this is not meant to be an all-inclusive list. Differential Fever: Pneumonia, viral URI, endocarditis, myocarditis, pericarditis, otitis, sinusitis, peritonsillar Abscess, retropharyngeal Abscess, epiglottitis, peritonitis, appendicitis, Rae cystitis, diverticulitis, hepatitis, colitis, UTI, PID, TOA, pyelonephritis, prostatitis, epididymitis, meningitis, encephalitis, pulmonary embolism, CVA, thyroid storm, pancreatitis, adrenal crisis, cavernous sinus thrombosis, this is not meant to be an all-inclusive list. - Consultations Consultation #1: Spoke with orthopedic physicians who agree to admit this patientspoke w admitting physicians who agree to admit this patient Medical Decision Making - Medical Decision Making 57 female to the ED co fever and not feeling well. Patient does have chest pain here in the ER, on found cause of chest pain here in the ER with recent inpatient hospitalization for similar. Patient be admitted for further evaluation management regarding causes of fever as well as need for pain control - Lab Data Result diagrams: 11/04/22 11:47 11/04/22 12:59 Lab Results 10/28/22 10/28/22 10/28/22 Range/Units 22:31 22:37 22:37 WBC 10.8 H (3.8-10.6) k/uL RBC 4.19 (3.80-5.40) m/uL Hgb 12.1 (11.4-16.0) gm/dL Hct 37.0 (34.0-46.0) % MCV 88.3 (80.0-100.0) fL MCH 29.0 (25.0-35.0) pg MCHC 32.8 (31.0-37.0) g/dL RDW 13.9 (11.5-15.5) % Plt Count 320 (150-450) k/uL MPV 7.7 Neutrophils % 80 % Lymphocytes % 13 % Monocytes % 5 % Eosinophils % 1 % Basophils % 0 % Neutrophils # 8.6 H (1.3-7.7) k/uL Lymphocytes # 1.4 (1.0-4.8) k/uL Monocytes # 0.6 (0-1.0) k/uL Eosinophils # 0.2 (0-0.7) k/uL Basophils # 0.0 (0-0.2) k/uL Hypochromasia Slight PT 11.0 (9.0-12.0) sec INR 1.1 (<1.2) APTT 25.1 (22.0-30.0) sec Sodium (137-145) mmol/L Potassium (3.5-5.1) mmol/L Chloride (98-107) mmol/L Carbon Dioxide (22-30) mmol/L Anion Gap mmol/L BUN (7-17) mg/dL Creatinine (0.52-1.04) mg/dL Est GFR (CKD-EPI)AfAm (>60 ml/min/1.73 sqM) Est GFR (CKD-EPI)NonAf (>60 ml/min/1.73 sqM) Glucose (74-99) mg/dL Plasma Lactic Acid Raffi (0.7-2.0) mmol/L Calcium (8.4-10.2) mg/dL Phosphorus (2.5-4.5) mg/dL Magnesium (1.6-2.3) mg/dL Total Bilirubin (0.2-1.3) mg/dL AST (14-36) U/L ALT (4-34) U/L Alkaline Phosphatase (38-126) U/L Troponin I (0.000-0.034) ng/mL C-Reactive Protein (<1.0) mg/dL Total Protein (6.3-8.2) g/dL Albumin (3.5-5.0) g/dL Lipase (23-300) U/L Influenza Type A (PCR) Not Detected (Not Detectd) Influenza Type B (PCR) Not Detected (Not Detectd) RSV (PCR) Not Detected (Not Detectd) SARS-CoV-2 (PCR) Not Detected (Not Detectd) 10/28/22 10/28/22 10/28/22 Range/Units 22:37 22:37 22:37 WBC (3.8-10.6) k/uL RBC (3.80-5.40) m/uL Hgb (11.4-16.0) gm/dL Hct (34.0-46.0) % MCV (80.0-100.0) fL MCH (25.0-35.0) pg MCHC (31.0-37.0) g/dL RDW (11.5-15.5) % Plt Count (150-450) k/uL MPV Neutrophils % % Lymphocytes % % Monocytes % % Eosinophils % % Basophils % % Neutrophils # (1.3-7.7) k/uL Lymphocytes # (1.0-4.8) k/uL Monocytes # (0-1.0) k/uL Eosinophils # (0-0.7) k/uL Basophils # (0-0.2) k/uL Hypochromasia PT (9.0-12.0) sec INR (<1.2) APTT (22.0-30.0) sec Sodium 137 (137-145) mmol/L Potassium 3.4 L (3.5-5.1) mmol/L Chloride 100 (98-107) mmol/L Carbon Dioxide 30 (22-30) mmol/L Anion Gap 7 mmol/L BUN 22 H (7-17) mg/dL Creatinine 1.49 H (0.52-1.04) mg/dL Est GFR (CKD-EPI)AfAm 45 (>60 ml/min/1.73 sqM) Est GFR (CKD-EPI)NonAf 39 (>60 ml/min/1.73 sqM) Glucose 107 H (74-99) mg/dL Plasma Lactic Acid Raffi 1.6 (0.7-2.0) mmol/L Calcium 8.4 (8.4-10.2) mg/dL Phosphorus 3.2 (2.5-4.5) mg/dL Magnesium 2.0 (1.6-2.3) mg/dL Total Bilirubin 0.5 (0.2-1.3) mg/dL AST 27 (14-36) U/L ALT 19 (4-34) U/L Alkaline Phosphatase 53 (38-126) U/L Troponin I 0.013 (0.000-0.034) ng/mL C-Reactive Protein (<1.0) mg/dL Total Protein 6.4 (6.3-8.2) g/dL Albumin 3.8 (3.5-5.0) g/dL Lipase 124 (23-300) U/L Influenza Type A (PCR) (Not Detectd) Influenza Type B (PCR) (Not Detectd) RSV (PCR) (Not Detectd) SARS-CoV-2 (PCR) (Not Detectd) 10/29/22 Range/Units 01:00 WBC (3.8-10.6) k/uL RBC (3.80-5.40) m/uL Hgb (11.4-16.0) gm/dL Hct (34.0-46.0) % MCV (80.0-100.0) fL MCH (25.0-35.0) pg MCHC (31.0-37.0) g/dL RDW (11.5-15.5) % Plt Count (150-450) k/uL MPV Neutrophils % % Lymphocytes % % Monocytes % % Eosinophils % % Basophils % % Neutrophils # (1.3-7.7) k/uL Lymphocytes # (1.0-4.8) k/uL Monocytes # (0-1.0) k/uL Eosinophils # (0-0.7) k/uL Basophils # (0-0.2) k/uL Hypochromasia PT (9.0-12.0) sec INR (<1.2) APTT (22.0-30.0) sec Sodium (137-145) mmol/L Potassium (3.5-5.1) mmol/L Chloride (98-107) mmol/L Carbon Dioxide (22-30) mmol/L Anion Gap mmol/L BUN (7-17) mg/dL Creatinine (0.52-1.04) mg/dL Est GFR (CKD-EPI)AfAm (>60 ml/min/1.73 sqM) Est GFR (CKD-EPI)NonAf (>60 ml/min/1.73 sqM) Glucose (74-99) mg/dL Plasma Lactic Acid Raffi (0.7-2.0) mmol/L Calcium (8.4-10.2) mg/dL Phosphorus (2.5-4.5) mg/dL Magnesium (1.6-2.3) mg/dL Total Bilirubin (0.2-1.3) mg/dL AST (14-36) U/L ALT (4-34) U/L Alkaline Phosphatase (38-126) U/L Troponin I (0.000-0.034) ng/mL C-Reactive Protein 1.7 H (<1.0) mg/dL Total Protein (6.3-8.2) g/dL Albumin (3.5-5.0) g/dL Lipase (23-300) U/L Influenza Type A (PCR) (Not Detectd) Influenza Type B (PCR) (Not Detectd) RSV (PCR) (Not Detectd) SARS-CoV-2 (PCR) (Not Detectd) - EKG Data -: EKG Interpreted by Me (EKG sinus 82 AL 112 QRS 90 QTC 4:15) - Radiology Data Radiology results: report reviewed (CXR is negative for acute disease), image reviewed Disposition Clinical Impression: RUBEN (acute kidney injury), Chest pain, Atypical chest pain, Fever, Dehydration, Elevated troponin Disposition: ADMITTED IP TO THIS HOSP Condition: Fair Is patient prescribed a controlled substance at d/c from ED?: No Time of Disposition: 02:00
--- NOTE | 2022-10-28 22:43 | XR ---
EXAMINATION TYPE: XR chest 1V portable DATE OF EXAM: 10/28/2022 HISTORY: Shortness of breath. COMPARISON: 09/20/22 TECHNIQUE: Single view of the chest is submitted. FINDINGS: Demonstrated are scattered senescent parenchymal change. There is no evidence for focal infiltrate. The heart is stable. Hilar and mediastinal structures are within normal limits. Degenerative changes are seen of the dorsal spine. IMPRESSION: 1. Chronic changes without evidence for acute pulmonary disease.
[2022-10-28] MEDS ORDERED: ONDANSETRON 4 MG/2 ML VIAL IVP STA (23:17)
[2022-10-28] MEDS ORDERED: ONDANSETRON 4 MG/2 ML VIAL IVP PRN (23:17)
[2022-10-28] MEDS ORDERED: LORazepam 2 MG/ML INJ IV STA (23:17)
[2022-10-28] MEDS ORDERED: HYDROmorphone 1 MG/ML 1 ML SYRINGE IVP STA (23:17)
[2022-10-28 23:28] LABS: ALT 19 U/L (4-34); African American GFR (CKD) 45 (>60 ml/min/1.73 sqM); Albumin 3.8 g/dL (3.5-5.0); Anion Gap 7 mmol/L; Basophils % (A) 0 %; Blood Urea Nitrogen 22 mg/dL (7-17); Calcium 8.4 mg/dL (8.4-10.2); Carbon Dioxide 30 mmol/L (22-30); Chloride 100 mmol/L (98-107); Eosinophils # (A) 0.2 k/uL (0-0.7); Eosinophils % (A) 1 %; Glucose 107 mg/dL (74-99); HGB 12.1 gm/dL (11.4-16.0); Hypochromasia Slight; Lipase 124 U/L (23-300); Lymphocytes # (A) 1.4 k/uL (1.0-4.8); Lymphocytes % (A) 13 %; MCHC 32.8 g/dL (31.0-37.0); MCV 88.3 fL (80.0-100.0); Mean Platelet Volume 7.7; Monocytes # (A) 0.6 k/uL (0-1.0); Monocytes % (A) 5 %; Neutrophils # (A) 8.6 k/uL (1.3-7.7); Neutrophils % (A) 80 %; Non-African American GFR(CKD) 39 (>60 ml/min/1.73 sqM); Platelet Count 320 k/uL (150-450); RBC 4.19 m/uL (3.80-5.40); RDW 13.9 % (11.5-15.5); Sodium 137 mmol/L (137-145); Total Bilirubin 0.5 mg/dL (0.2-1.3); Total Protein 6.4 g/dL (6.3-8.2); WBC 10.8 k/uL (3.8-10.6)
[2022-10-28 23:29] LABS: AST 27 U/L (14-36); Phosphorus 3.2 mg/dL (2.5-4.5); Potassium 3.4 mmol/L (3.5-5.1)
[2022-10-28 23:30] LABS: Alkaline Phosphatase 53 U/L (38-126)
[2022-10-28 23:33] LABS: INR 1.1 (<1.2); Partial Thromboplastin Time 25.1 sec (22.0-30.0)
[2022-10-29] MEDS: HYDROmorphone 1 MG/ML 1 ML SYRINGE IVP PRN ×8 (01:05→22:15)
[2022-10-29] MEDS ORDERED: diphenhydrAMINE 50 MG/ML 1 ML VIAL IVP STA (01:09)
[2022-10-29] MEDS ORDERED: LEVOFLOXACIN 750MG-D5W PMX 750 MG in DEXTROSE/WATER 1 150ML.BAG IVPB STA (02:00)
[2022-10-29] MEDS ORDERED: IBUPROFEN 400 MG TAB PO PRN (02:02)
[2022-10-29] MEDS ORDERED: NALOXONE 0.4 MG/ML 1 ML VIAL IV PRN (02:02)
[2022-10-29] MEDS: diphenhydrAMINE 50 MG/ML 1 ML VIAL IVP PRN ×3 (06:34→19:03)
[2022-10-29] MEDS ORDERED: PANTOPRAZOLE 40 MG/10 ML VIAL IV SCH (09:00)
[2022-10-29 10:27] LABS: Appearance,Urine Clear (Clear); Bilirubin,Urine Negative (Negative); Blood,Urine Negative (Negative); Color,Urine Yellow; Glucose,Urine (UA) Negative (Negative); Hyaline Casts,Urine 1 /lpf (0-2); Ketones,Urine Negative (Negative); Leukocyte Esterase,Urine Trace (Negative); Mucus,Urine Rare /hpf; Nitrite,Urine Negative (Negative); PH, Urine 6.5 (5.0-8.0); Protein,Urine Negative (Negative); RBC,Urine <1 /hpf (0-5); Specific Gravity,Urine 1.017 (1.001-1.035); Urobilinogen,Urine <2.0 mg/dL (<2.0); WBC,Urine 1 /hpf (0-5)
[2022-10-29] MEDS: CEFEPIME 2 GM in SODIUM CHLORIDE 0.9% 100 ML IVPB SCH (17:13)
[2022-10-29] MEDS: IOPAMIDOL CONTRAST (ORAL USE) VIAL PO PRN ×2 (17:14→18:07)
[2022-10-29] MEDS ORDERED: DICYCLOMINE 20 MG TAB PO PRN (17:22)
[2022-10-29] MEDS ORDERED: METOPROLOL SUCCINATE (ER) 25 MG TAB.ER.24H PO PRN (17:22)
[2022-10-29] MEDS ORDERED: ONDANSETRON ODT 4 MG TAB PO PRN (17:22)
[2022-10-29] MEDS ORDERED: MIDODRINE 5 MG TAB PO PRN (17:22)
[2022-10-29] MEDS ORDERED: MECLIZINE 25 MG TAB PO PRN (17:22)
[2022-10-29] MEDS: LORazepam 2 MG/ML INJ IV PRN (17:25)
[2022-10-29] MEDS: GABAPENTIN 300 MG CAP PO SCH ×2 (18:07→21:32)
--- NOTE | 2022-10-29 19:05 | CT ---
EXAMINATION TYPE: CT abdomen pelvis wo con DATE OF EXAM: 10/29/2022 COMPARISON: 07/20/2022 HISTORY: abdominal pain, fever CT DLP: 563.6 mGycm Examination of the solid and hollow viscera is limited given the lack of contrast. FINDINGS: LUNG BASES: No evidence for nodule. No evidence for infiltrate. LIVER/GB: Gallbladder surgically absent. No space-occupying hepatic lesion. PANCREAS: No pancreatic mass identified. No inflammatory process seen. SPLEEN: No evidence for splenomegaly. No intrasplenic lesions seen. ADRENALS: No adrenal nodules identified. No evidence for thickening. KIDNEYS: No evidence for renal mass. Nonobstructing calculus measuring 3 mm mid pole left kidney. Atr ophic changes of the right kidney. No hydronephrosis. BOWEL: Nonvisualization of the appendix. No evidence of bowel obstruction. No inflammatory process. C olonic diverticulosis without diverticulitis. Mild fecal stasis. Lymph nodes: No evidence for adenopathy greater than 1 cm. Abdominal aorta: Atheromatous changes seen. No evidence for aneurysm. Genital organs: Hysterectomy changes with normal appearing vaginal cuff. No adnexal masses seen. Other: Postoperative changes lower lumbar spine. IMPRESSION: 1. No inflammatory process seen within the abdomen or pelvis. 2. Nonobstructing left-sided nephrolithiasis. 3. Atrophic changes of the right kidney.
--- NOTE | 2022-10-29 19:29 | HP ---
HISTORY AND PHYSICAL HISTORY OF PRESENT ILLNESS: She is back for another admission to the hospital. She came to the hospital for evaluation of multiple complaints; fever, chest pain, weakness, and recent hospitalization secondary to sepsis infection. She had a Serratia infection. We are going to do a CAT scan of her abdomen to try to find out where an infection could be coming from. HOME MEDICATIONS: Reviewed. See list. REVIEW OF SYSTEMS: Fourteen-point review of systems is negative except for chronic abdominal pain, weakness, and fatigue. ALLERGIES: See list. PAST MEDICAL HISTORY: See list. PAST SURGICAL HISTORY: Back surgery, breast surgery, cardiac valve replacement, , cholecystectomy, heart catheterization, pacemaker. PHYSICAL EXAMINATION: VITAL SIGNS: Temperature 99.9, pulse 70 to 86, respiratory rate 18 to 20, blood pressures 130s to 140s over 80s, O2 of 94% to 96%. HEART: S1 and S2. LUNGS: Normal breath sounds. HEENT: Normocephalic and atraumatic. OPHTHALMOLOGIC: Pupils are equal, round, and reactive. SKIN: Warm, dry, and intact. NEUROLOGIC: Cranial nerves are intact. . Blood pressures 120s to 130s over 70s, pulses 70s, temperature 98.3, respiratory rate 16 to 18. PLAN: Continue current treatments. Prognosis is guarded. Do a septic workup for possible Serratia sepsis, she had it at the other hospital, due to her white count being high. She is dehydrated with hypokalemia. BUN is 22 with 1.49 creatinine. We are going to do blood cultures. Please see further orders. Dr. Luo is on case for Infectious Disease. Continue home medicines. MMODL / IJN: [id number] /
[2022-10-29] MEDS ORDERED: NON FORMULARY DRUG (Budesonide/Glycopyr/Formoterol [Breztri Aerosphere Inhaler] 10.7 GM Gm INHALATION SCH (20:00)
--- NOTE | 2022-10-29 20:50 | P.CONS ---
History of Present Illness - Reason for Consult Consult date: 10/29/22 - History of Present Illness Patient is a 57-year-old female with a past medical history significant for seizure disorder pulm embolism antiphospholipid antibody syndrome patient mention she was recently admitted at [facility] with the patient was treated for bacteremia patient mention she did have a positive blood culture and she did have extensive work-up at that facility including echocardiogram that was negative for any vegetation patient was treated with IV by therapy subsequent has been discharged home on oral Levaquin patient was just discharged 2 days ago from the other facility patient is presenting to ER last night concerning for fever and weakness, patient also complains of shortness of breath denies significant cough or sputum production patient is current not requiring any supplemental oxygen patient did have some vague abdominal pain and nausea but no vomiting no diarrhea did have some constipation with this and the patient was evaluated by the ER physician on arrival to the ER patient did have a low-grade fever of 99.9 F patient did have mild hypoxia O2 sats of 94% currently 98% on 3 L nasal cannula oxygen patient did have white count 10.8 with a left shift BUN/creatinine has been elevated liver enzymes are normal urine has been negative influenza RSV and COVID testing was negative patient did have a chest x-ray chronic change without evidence for acute pulmonary disease patient was started on Rocephin infectious disease was consulted for further management of metabolic therapy I was able to get the culture report from [facility] she grew Serratia marcescens Past Medical History Past Medical History: Blood Disorder, Pulmonary Embolus (PE), Renal Disease, Seizure Disorder Additional Past Medical History / Comment(s): Antiphospholipid antibody syndrome which causes clots and bleeding, multiple PEs, R renal artery embolism/now atrophic, CKD stage III, hypotension, hypokalemia especially w/stress, lupus, pyoderm grangrenosum, decreased pituitary function pt states d/t clot, migraines, chonic cervical/back pain, herniated discs, RLS, vertigo, recent adm. for low K+ History of Any Multi-Drug Resistant Organisms: C-DIFF Year Discovered:: 2021 MDRO Source:: Stool Past Surgical History: Back Surgery, Breast Surgery, Cardiac Valve Replacement, Section, Cholecystectomy, Heart Catheterization, Hysterectomy, Pacemaker Additional Past Surgical History / Comment(s): pacemaker d/t bradycardia/hypotension with last one place in 2013 in [place], [place], 3 lower back surgeries, bilateral breast reduction. 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 She is independent. Smoking Status: Former smoker Past Alcohol Use History: None Reported Past Drug Use History: Marijuana Additional Drug Use History / Comment(s): Marijuana use prn per pt. - Past Family History Mother Additional Family Medical History / Comment(s): Mother at the age of 49 yrs after surgery for silicon breast implants with a leak that caused ARDS and DIC per pt Father Family Medical History: Cancer, Hyperlipidemia, Hypertension Additional Family Medical History / Comment(s): Father is a colon cancer survivor. Medications and Allergies Home Medications Medication Instructions Recorded Confirmed Type Atorvastatin [Lipitor] 40 mg PO HS 09/24/21 10/29/22 History Cholestyramine (with Sugar) 4 gm PO DAILY PRN 09/24/21 10/29/22 History [Cholestyramine Packet] Gabapentin 600 mg PO QID 09/24/21 10/29/22 History Sertraline [Zoloft] 200 mg PO DAILY 09/24/21 10/29/22 History Ubrogepant [Ubrelvy] 100 mg PO BID PRN 09/24/21 10/29/22 History rOPINIRole HCL [Requip] 2 mg PO HS 09/24/21 10/29/22 History Budesonide/Glycopyr/Formoterol 1 puff INHALATION RT-BID 03/16/22 10/29/22 History [Breztri Aerosphere Inhaler] Esomeprazole Magnesium [NexIUM] 40 mg PO DAILY 03/16/22 10/29/22 History Botox 200unit Injection 1 dose INJ Q84D 04/02/22 10/29/22 History Meclizine [Antivert] 12.5 mg PO Q8H PRN 04/02/22 10/29/22 History Diphenhydramine 50mg/Ml Vial 50 mg IM Q6H PRN 04/18/22 10/29/22 History Dicyclomine [Bentyl] 20 mg PO TID PRN #30 tablet 04/30/22 10/29/22 Rx Ondansetron Odt [Zofran ODT] 4 mg PO Q8HR PRN #12 tab 04/30/22 10/29/22 Rx Apixaban [Eliquis] 5 mg PO BID 05/29/22 10/29/22 History Spironolactone [Aldactone] 50 mg PO TID 06/11/22 10/29/22 History busPIRone HCl [Buspar] 5 mg PO BID 06/11/22 10/29/22 History Bumetanide [BUMEX] 2 mg PO DAILY 06/24/22 10/29/22 History Zonisamide [Zonegran] 100 mg PO Q12HR 30 Days #60 cap 07/26/22 10/29/22 Rx Bumetanide [BUMEX] 1 mg PO HS 08/26/22 10/29/22 History Lidocaine 5% Patch [Lidoderm 5% 1 patch TRANSDERM DAILY PRN 08/26/22 10/29/22 History Patch] Fludrocortisone [Florinef] 0.1 mg PO DAILY 09/20/22 10/29/22 History Cyclobenzaprine [Flexeril] 10 mg PO TID 09/22/22 10/29/22 History HYDROcodone/APAP 7.5-325MG [Geddes 1 tab PO TID PRN 10/29/22 10/29/22 History 7.5-325] Levofloxacin [Levaquin] 500 mg PO DAILY 10/29/22 10/29/22 History Metoprolol Succinate (ER) [Toprol 25 mg PO DAILY PRN 10/29/22 10/29/22 History XL] Midodrine [ProAmatine] 5 mg PO TID PRN 10/29/22 10/29/22 History Potassium Chloride ER [K-Dur 20] 40 meq PO BID 10/29/22 10/29/22 History predniSONE See Taper PO DIRECTED 10/29/22 10/29/22 History Allergies Allergy/AdvReac Type Severity Reaction Status Date / Time Penicillins Allergy Severe Anaphylaxis Verified 10/29/22 08:17 vancomycin Allergy Severe Swelling Verified 10/29/22 08:17 in lips clindamycin Allergy Anaphylaxis Verified 10/29/22 08:17 dexamethasone [From Decadron] Allergy Unknown Verified 10/29/22 08:17 Influenza Virus Vaccines Allergy Unknown Verified 10/29/22 08:17 latex Allergy Unknown Verified 10/29/22 08:17 morphine Allergy Unknown Verified 10/29/22 08:17 prochlorperazine Allergy Unknown Verified 10/29/22 08:17 [From Compazine] galcanezumab-gnlm AdvReac Confusion, Verified 10/29/22 08:17 [From Emgality Pen] increased blood pressure metoclopramide [From Reglan] AdvReac "felt like Verified 10/29/22 08:17 I needed to jump out of my skin" Physical Exam Vitals: Vital Signs Temp Pulse Pulse Pulse Resp BP BP 10/29/22 07:28 98.2 F 69 18 150/89 10/29/22 05:13 20 10/29/22 04:19 98 F 70 20 118/77 10/29/22 02:29 70 16 122/75 10/29/22 01:30 70 16 121/72 10/29/22 00:30 98.3 F 70 18 132/76 10/28/22 23:17 70 20 132/82 10/28/22 22:50 78 10/28/22 22:14 99.9 F H 86 20 140/85 Pulse Ox 10/29/22 07:28 99 10/29/22 05:13 10/29/22 04:19 98 10/29/22 02:29 95 10/29/22 01:30 98 10/29/22 00:30 98 10/28/22 23:17 96 10/28/22 22:50 10/28/22 22:14 94 L Intake and Output 10/28/22 10/29/22 10/29/22 22:59 06:59 14:59 Output Total 400 Balance -400 Output: Urine 400 Other: Voiding Method Toilet # Voids 1 # Bowel Movements 0 Weight 69.853 kg 69.853 kg Results CBC & Chem 7: 10/28/22 22:37 10/28/22 22:37 Labs: Abnormal Lab Results - Last 24 Hours (Table) 10/28/22 10/28/22 10/29/22 Range/Units 22:37 22:37 01:00 WBC 10.8 H (3.8-10.6) k/uL Neutrophils # 8.6 H (1.3-7.7) k/uL Potassium 3.4 L (3.5-5.1) mmol/L BUN 22 H (7-17) mg/dL Creatinine 1.49 H (0.52-1.04) mg/dL Glucose 107 H (74-99) mg/dL C-Reactive Protein 1.7 H (<1.0) mg/dL Ur Leukocyte Esterase (Negative) Urine Mucus (None) /hpf 10/29/22 Range/Units 10:15 WBC (3.8-10.6) k/uL Neutrophils # (1.3-7.7) k/uL Potassium (3.5-5.1) mmol/L BUN (7-17) mg/dL Creatinine (0.52-1.04) mg/dL Glucose (74-99) mg/dL C-Reactive Protein (<1.0) mg/dL Ur Leukocyte Esterase Trace H (Negative) Urine Mucus Rare H (None) /hpf Assessment and Plan Plan: 1patient presented to hospital with fever weakness and chills and this patient apparently recently did have a Serratia marcescens bacteremia with the patient was admitted to the [facility] patient initial work-up has been negative so far chest x-ray did not show any evidence of pneumonia urine has been negative concern for possible abdominal source as the patient have some abdominal pain and constipation 2-patient with a penicillin allergy that will limit the number of antibiotics safe to use 3-we will obtain CT abdominal pelvis with oral contrast morning because of elevated creatinine 4-switch antibiotic therapy to cefepime 5-check inflammatory markers We will follow on clinical condition and cultures to further adjust medication if needed Thank you for this consultation we will follow the patient along with you
[2022-10-29] MEDS: APIXABAN 5 MG TAB PO SCH (21:30)
[2022-10-29] MEDS: BUMETANIDE 1 MG TAB PO SCH (21:31)
[2022-10-29] MEDS: ATORVASTATIN 40 MG TAB PO SCH (21:31)
[2022-10-29] MEDS: POTASSIUM CHLORIDE ER 20 MEQ TAB.ER PO SCH (21:31)
[2022-10-29] MEDS: busPIRone HCl 5 MG TAB PO SCH (21:31)
[2022-10-29] MEDS: ZONISAMIDE 100 MG CAP PO SCH (21:32)
[2022-10-29] MEDS: SPIRONOLACTONE 25 MG TAB PO SCH (21:32)
[2022-10-30] MEDS: CEFEPIME 2 GM in SODIUM CHLORIDE 0.9% 100 ML IVPB SCH ×3 (00:28→21:03)
[2022-10-30] MEDS: diphenhydrAMINE 50 MG/ML 1 ML VIAL IVP PRN ×4 (01:53→21:01)
[2022-10-30] MEDS: HYDROmorphone 1 MG/ML 1 ML SYRINGE IVP PRN ×5 (01:53→18:54)
[2022-10-30] MEDS ORDERED: LEVOFLOXACIN 750MG-D5W PMX 750 MG in DEXTROSE/WATER 1 150ML.BAG IVPB SCH (05:00)
[2022-10-30] MEDS: SPIRONOLACTONE 25 MG TAB PO SCH ×3 (07:52→21:02)
[2022-10-30] MEDS: SERTRALINE 100 MG TAB PO SCH (07:52)
[2022-10-30] MEDS: GABAPENTIN 300 MG CAP PO SCH ×4 (07:53→21:02)
[2022-10-30] MEDS: POTASSIUM CHLORIDE ER 20 MEQ TAB.ER PO SCH ×2 (07:53→21:02)
[2022-10-30] MEDS: FLUDROCORTISONE 0.1 MG TAB PO SCH (07:53)
[2022-10-30] MEDS: busPIRone HCl 5 MG TAB PO SCH ×2 (07:53→21:02)
[2022-10-30] MEDS: BUMETANIDE 1 MG TAB PO SCH ×2 (07:53→21:02)
[2022-10-30] MEDS: PANTOPRAZOLE 40 MG TABLET PO SCH (07:53)
[2022-10-30] MEDS: APIXABAN 5 MG TAB PO SCH ×2 (07:54→21:02)
[2022-10-30] MEDS: ZONISAMIDE 100 MG CAP PO SCH ×2 (07:54→21:01)
[2022-10-30 09:22] LABS: Basophils # (A) 0.01 X 10*3/uL (0.00-0.10); Basophils % (A) 0.1 %; Eosinophils # (A) 0.14 X 10*3/uL (0.04-0.35); HCT 31.9 % (37.2-46.3); HGB 9.7 d/dL (12.0-15.0); Lymphocytes # (A) 0.83 X 10*3/uL (0.90-5.00); Lymphocytes % (A) 11.8 %; MCH 28.1 pg (27.0-32.0); MCHC 30.4 d/dL (32.0-37.0); MCV 92.5 FL (80.0-97.0); Mean Platelet Volume 10.5 FL (9.5-12.2); Monocytes # (A) 0.41 X 10*3/uL (0.20-1.00); Monocytes % (A) 5.8 %; NRBC Per 100 WBC 0 X 10*3/uL (0.00-0.01); Neutrophils # (A) 5.65 X 10*3/uL (1.80-7.70); Platelet Count 252 X 10*3/uL (140-440); RBC 3.45 X 10*6/uL (4.10-5.20); RDW 13.5 % (11.5-14.5); WBC 7.06 X 10*3/uL (4.50-10.00)
[2022-10-30 11:54] LABS: ALT 14 U/L (8-44); AST 14 U/L (13-35); Albumin 3.4 d/dL (3.8-4.9); Albumin/Globulin Ratio 1.79 Ratio (1.60-3.17); Alkaline Phosphatase 53 U/L (41-126); BUN/Creat Ratio 13.82 Ratio (12.00-20.00); Blood Urea Nitrogen 15.2 mg/dL (9.0-27.0); Chloride 108 mmol/L (96-109); Globulin 1.9 d/dL (1.6-3.3); Glucose 75 mg/dL (70-110); Lipase 31 U/L (14-63); Phosphorus 2.7 mg/dL (2.4-5.1); Sodium 140 mmol/L (135-145); Total Bilirubin <0.2 mg/dL (0.3-1.2); Total Protein 5.3 d/dL (6.2-8.2)
--- NOTE | 2022-10-30 13:54 | CT ---
EXAMINATION TYPE: CT chest wo con DATE OF EXAM: 10/30/2022 COMPARISON: 05/15/2022 HISTORY: Dyspnea CT DLP: 365.40 mGycm, Automated exposure control for dose reduction was used. CONTRAST: None TECHNIQUE: Axial images were obtained at 5 mm thick sections. Reconstructed images are reviewed on [employer] computer in the coronal plane. FINDINGS: Portion of the thyroid visualized is normal. No suspicious lung nodules or focal infiltrates are present. There is some mild scattered linear infi ltrates at the lung bases. Consider subsegmental atelectasis. No enlarged mediastinal or hilar adenopathy is evident. The ascending aorta diameter at the level o f the main pulmonary artery is 3.7 cm. The main pulmonary artery diameter at the bifurcation is 2.6 cm. Mild pericardial effusion is present. Limited CT sections are obtained through the upper abdomen. Nonobstructing bilateral renal stones are noted. IMPRESSIONS: 1. There may be some minimal subsegmental atelectasis at the lung bases. 2. Mild pericardial effusion. 3. Nonobstructing bilateral renal stones
[2022-10-30] MEDS: LORazepam 2 MG/ML INJ IV PRN (15:22)
--- NOTE | 2022-10-30 15:32 | P.PN ---
Subjective Progress Note Date: 10/30/22 Principal diagnosis: Bacteremia Patient is a 57-year-old female with a past medical history significant for seizure disorder pulm embolism antiphospholipid antibody syndr ome patient mention she was recently admitted at [facility] with the patient was treated for Serratia marcescens bacteremia, and was discharged on Levaquin with the patient presented back to the hospital complaining of fever and blood cultures had a positive for Serratia marcescens On today's evaluation 10/30/2022, the patient denies having any fever or any chills she is breathing comfortably on room air denies any chest pain occasional cough some nausea but no vomiting no abdominal pain no diarrhea Objective - Vital Signs Vital signs: Vital Signs Temp 97.8 F 10/30/22 08:00 Pulse 78 10/30/22 08:00 Resp 17 10/30/22 08:00 BP 147/85 10/30/22 08:00 Pulse Ox 96 10/30/22 08:48 FiO2 Intake & Output 10/29/22 10/30/22 10/30/22 18:59 06:59 18:59 Intake Total 100 296 Output Total 400 Balance -300 296 Weight 85.5 kg Intake: Intake, IV Titration 100 Amount Cefepime 2 gm In Sodium 100 Chloride 0.9% 100 ml @ 25 mls/hr IVPB Q8HR [facility] Rx# :[id number] Oral 296 Output: Urine 400 Other: Voiding Method Toilet Toilet # Voids 1 2 - Exam GENERAL DESCRIPTION: Middle-age female up in bed in no distress RESPIRATORY SYSTEM: Unlabored breathing , decreased breath sounds at bases HEART: S1 S2 regular rate and rhythm , ABDOMEN: Soft , no tenderness EXTREMITIES: No edema feet - Labs CBC & Chem 7: 10/30/22 05:15 10/30/22 05:29 Labs: Abnormal Lab Results - Last 24 Hours (Table) 10/30/22 10/30/22 Range/Units 05:15 05:29 RBC 3.45 L (4.10-5.20) X 10*6/uL Hgb 9.7 L (12.0-15.0) d/dL Hct 31.9 L (37.2-46.3) % MCHC 30.4 L (32.0-37.0) d/dL Lymphocytes # 0.83 L (0.90-5.00) X 10*3/uL Est GFR (CKD-EPI) 58 L (>=60) Calcium 8.0 L (8.7-10.3) mg/dL Total Bilirubin <0.2 L (0.3-1.2) mg/dL Total Protein 5.3 L (6.2-8.2) d/dL Albumin 3.4 L (3.8-4.9) d/dL Microbiology - Last 24 Hours (Table) 10/28/22 22:50 Blood Culture Gram Stain - Preliminary Blood 10/28/22 23:00 Blood Culture Gram Stain - Preliminary Blood Assessment and Plan (1) Bacteremia Current Visit: Yes Status: Acute Code(s): R78.81 - BACTEREMIA SNOMED Code(s): 5195415 Plan: 1patient presented to hospital with fever weakness and chills and this patient apparently recently did have a Serratia marcescens bacteremia with the patient was admitted to the [facility] patient initial work-up has been negative so far chest x-ray did not show any evidence of pneumonia urine has been negative concern for possible abdominal source as the patient have some abdominal pain and constipation 2-patient with a penicillin allergy that will limit the number of antibiotics safe to use 3- CT abdominal pelvis with oral contrast did not show any evidence of abscess 4-possible source of his bacteremia could be left upper arm power port versus lumbar discitis as the patient did have a history of lumbar surgery with hardware has been complaining of some back pain 5-blood cultures repeated document clearance of bacteremia the office check inflammatory markers and WBC scan Time with Patient: Greater than 30
[2022-10-30] MEDS ORDERED: FLUCONAZOLE 150 MG TAB PO ONE (17:24)
[2022-10-30] MEDS: ATORVASTATIN 40 MG TAB PO SCH (21:02)
[2022-10-30] MEDS ORDERED: bisacodyL 10 MG SUPP RECTAL PRN (22:27)
[2022-10-30] MEDS: NYSTATIN 100,000 UNIT/ML SUSP 500,000 UNIT/5 ML CUP PO SCH (22:52)
[2022-10-30] MEDS: NYSTATIN 100,000 UNIT/GM POWD 15 GM TOPICAL SCH (22:52)
[2022-10-31] MEDS: HYDROmorphone 1 MG/ML 1 ML SYRINGE IVP PRN ×5 (01:38→21:16)
[2022-10-31] MEDS: diphenhydrAMINE 50 MG/ML 1 ML VIAL IVP PRN ×3 (06:47→21:13)
[2022-10-31] MEDS: IPRATROPIUM 0.5 MG/2.5 ML NEBU INHALATION SCH ×7 (07:12→22:50)
[2022-10-31] MEDS: SYMBICORT 160-4.5 MCG INHALER INHALATION SCH ×5 (07:12→21:40)
[2022-10-31 07:43] LABS: ALT 18 U/L (4-34); AST 21 U/L (14-36); African American GFR (CKD) 46 (>60 ml/min/1.73 sqM); Albumin 3.8 g/dL (3.5-5.0); Albumin/Globulin Ratio 1.4; Alkaline Phosphatase 75 U/L (38-126); Anion Gap 11 mmol/L; Blood Urea Nitrogen 20 mg/dL (7-17); Carbon Dioxide 26 mmol/L (22-30); Chloride 101 mmol/L (98-107); Globulin 2.8 g/dL; Glucose 98 mg/dL (74-99); Non-African American GFR(CKD) 40 (>60 ml/min/1.73 sqM); Sodium 138 mmol/L (137-145); Total Bilirubin 0.6 mg/dL (0.2-1.3); Total Protein 6.6 g/dL (6.3-8.2)
[2022-10-31 09:17] LABS: C Reactive Protein 4.1 mg/dL (<1.0)
[2022-10-31] MEDS: busPIRone HCl 5 MG TAB PO SCH ×2 (09:32→20:52)
[2022-10-31] MEDS: POTASSIUM CHLORIDE ER 20 MEQ TAB.ER PO SCH ×2 (09:32→20:52)
[2022-10-31] MEDS: PANTOPRAZOLE 40 MG TABLET PO SCH (09:32)
[2022-10-31] MEDS: SPIRONOLACTONE 25 MG TAB PO SCH ×3 (09:33→20:53)
[2022-10-31] MEDS: ZONISAMIDE 100 MG CAP PO SCH ×2 (09:33→20:52)
[2022-10-31] MEDS: FLUDROCORTISONE 0.1 MG TAB PO SCH (09:33)
[2022-10-31] MEDS: SERTRALINE 100 MG TAB PO SCH (09:33)
[2022-10-31] MEDS: GABAPENTIN 300 MG CAP PO SCH ×4 (09:33→20:52)
[2022-10-31] MEDS: APIXABAN 5 MG TAB PO SCH ×2 (09:34→20:52)
[2022-10-31] MEDS: BUMETANIDE 1 MG TAB PO SCH ×2 (09:34→20:53)
[2022-10-31] MEDS: CEFEPIME 2 GM in SODIUM CHLORIDE 0.9% 100 ML IVPB SCH ×2 (09:34→20:53)
[2022-10-31] MEDS: NYSTATIN 100,000 UNIT/GM POWD 15 GM TOPICAL SCH ×2 (09:34→20:54)
[2022-10-31] MEDS: NYSTATIN 100,000 UNIT/ML SUSP 500,000 UNIT/5 ML CUP PO SCH ×4 (09:35→20:51)
[2022-10-31 14:14] LABS: Basophils # (A) 0 X 10*3/uL (0.00-0.10); Basophils % (A) 0 %; Eosinophils # (A) 0.11 X 10*3/uL (0.04-0.35); HCT 38.3 % (37.2-46.3); HGB 11.8 d/dL (12.0-15.0); Lymphocytes # (A) 0.92 X 10*3/uL (0.90-5.00); MCHC 30.8 d/dL (32.0-37.0); Mean Platelet Volume 10.9 FL (9.5-12.2); Monocytes # (A) 0.66 X 10*3/uL (0.20-1.00); Monocytes % (A) 5.8 %; NRBC Per 100 WBC 0 X 10*3/uL (0.00-0.01); Neutrophils % (A) 84.7 %; Platelet Count 358 X 10*3/uL (140-440); RBC 4.21 X 10*6/uL (4.10-5.20); RDW 13.6 % (11.5-14.5); WBC 11.45 X 10*3/uL (4.50-10.00)
[2022-10-31 14:24] LABS: Erythrocyte Sedimentation Rate 39 mm/Hr (0-30)
[2022-10-31] MEDS: ACETAMINOPHEN TAB 325 MG TAB PO PRN (14:29)
--- NOTE | 2022-10-31 17:50 | P.PN ---
Subjective Progress Note Date: 10/31/22 Principal diagnosis: Bacteremia Patient is a 57-year-old female with a past medical history significant for seizure disorder pulm embolism antiphospholipid antibody syndr ome patient mention she was recently admitted at [facility] with the patient was treated for Serratia marcescens bacteremia, and was discharged on Levaquin with the patient presented back to the hospital complaining of fever and blood cultures had a positive for Serratia marcescens On today's evaluation 10/31/2022, the patient did have a low-grade fever 100.4 this afternoon and the patient mentioned in feeling as good today, she is breathing comfortably on room air denies any chest pain occasional cough some nausea but no vomiting no abdominal pain no diarrhea Objective - Vital Signs Vital signs: Vital Signs Temp 100.4 F H 10/31/22 13:53 Pulse 84 10/31/22 13:53 Resp 18 10/31/22 13:53 BP 111/61 10/31/22 13:53 Pulse Ox 96 10/31/22 13:53 FiO2 Intake & Output 10/30/22 10/31/22 10/31/22 18:59 06:59 18:59 Intake Total 296 Output Total 1200 Balance -904 Weight 84 kg Intake: Oral 296 Output: Urine 1200 Other: Voiding Method Toilet Toilet Toilet # Voids 2 # Bowel Movements 2 - Exam GENERAL DESCRIPTION: Middle-age female up in bed in no distress RESPIRATORY SYSTEM: Unlabored breathing , decreased breath sounds at bases HEART: S1 S2 regular rate and rhythm , ABDOMEN: Soft , no tenderness EXTREMITIES: No edema feet - Labs CBC & Chem 7: 10/31/22 07:05 10/31/22 06:47 Labs: Abnormal Lab Results - Last 24 Hours (Table) 10/31/22 10/31/22 10/31/22 Range/Units 06:47 06:47 07:05 WBC 11.45 H (4.50-10.00) X 10*3/uL Hgb 11.8 L (12.0-15.0) d/dL MCHC 30.8 L (32.0-37.0) d/dL Neutrophils # 9.70 H (1.80-7.70) X 10*3/uL ESR 39 H (0-30) mm/Hr BUN 20 H (7-17) mg/dL Creatinine 1.44 H (0.52-1.04) mg/dL C-Reactive Protein 4.1 H (<1.0) mg/dL Procalcitonin 0.18 H (0.02-0.09) ng/mL Microbiology - Last 24 Hours (Table) 10/28/22 22:50 Blood Culture Gram Stain - Final Blood Blood Culture - Final Serratia marcescens 10/28/22 23:00 Blood Culture Gram Stain - Final Blood Blood Culture - Final Serratia marcescens 10/29/22 18:28 Blood Culture - Preliminary Blood Assessment and Plan (1) Bacteremia Current Visit: Yes Status: Acute Code(s): R78.81 - BACTEREMIA SNOMED Cod e(s): 0730457 Plan: 1patient presented to hospital with fever weakness and chills and this patient apparently recently did have a Serratia marcescens bacteremia with the patient was admitted to the [facility] patient initial work-up has been negative so far chest x-ray did not show any evidence of pneumonia urine has been negative concern for possible abdominal source as the patient have some abdominal pain and constipation 2-patient with a penicillin allergy that will limit the number of antibiotics safe to use 3- CT abdominal pelvis with oral contrast did not show any evidence of abscess 4-blood culture repeat 10/29/2022 so far negative and were done this morning as well, cardiology has been consulted for PORFIRIO we will order a WBC scan and continue with the cefepime Multiple questions concerned were answered Time with Patient: Less than 30
[2022-10-31] MEDS: ATORVASTATIN 40 MG TAB PO SCH (20:52)
--- NOTE | 2022-10-31 22:45 | PN ---
PROGRESS NOTE SUBJECTIVE: A 57-year-old white female, chest pain, shortness of breath, temperature. She has Serratia going on her blood cultures. We are going to do white blood cell scan in the morning. Discussed this with her. She is worried about her hemoglobin dropping down to 9 7. I told her to consult Hematology when it is next time very low. At this point, no blood transfusion needed. In fact, it went from 9.7 up to 11.8, so do anything at this point for that. BUN and creatinine are 20 and 1.44. Waiting for white blood cell scan due to positive blood cultures. C. diff is negative. OBJECTIVE: PSYCH: She is anxious and nervous. CARDIOVASCULAR: S1, S2. LUNGS: Clear. GI: Soft. PLAN: Plan is for doing a white blood cell scan for the Serratia. Continue broad-spectrum antibiotics per Dr. Luo's recommendations. I suspect that left 4th is infected in her arm and will have to be removed if the white blood cell scan is positive. Otherwise, she will have to have a PORFIRIO as this is the 2nd time she has had Serratia marcescens bacteremia recently at [facility], now at [facility] currently. MMODL / IJN: [id number] /
[2022-11-01] MEDS: HYDROmorphone 1 MG/ML 1 ML SYRINGE IVP PRN ×5 (01:12→19:27)
[2022-11-01] MEDS: GABAPENTIN 300 MG CAP PO SCH ×4 (10:05→21:06)
[2022-11-01] MEDS: busPIRone HCl 5 MG TAB PO SCH ×2 (10:05→21:06)
[2022-11-01] MEDS: NYSTATIN 100,000 UNIT/ML SUSP 500,000 UNIT/5 ML CUP PO SCH ×4 (10:05→21:06)
[2022-11-01] MEDS: ZONISAMIDE 100 MG CAP PO SCH ×2 (10:05→21:06)
[2022-11-01] MEDS: PANTOPRAZOLE 40 MG TABLET PO SCH (10:06)
[2022-11-01] MEDS: POTASSIUM CHLORIDE ER 20 MEQ TAB.ER PO SCH ×2 (10:06→21:06)
[2022-11-01] MEDS: BUMETANIDE 1 MG TAB PO SCH ×2 (10:06→21:06)
[2022-11-01] MEDS: APIXABAN 5 MG TAB PO SCH ×2 (10:06→21:06)
[2022-11-01] MEDS: FLUDROCORTISONE 0.1 MG TAB PO SCH (10:06)
[2022-11-01] MEDS: SPIRONOLACTONE 25 MG TAB PO SCH ×3 (10:06→21:06)
[2022-11-01] MEDS: SERTRALINE 100 MG TAB PO SCH (10:06)
[2022-11-01] MEDS: NYSTATIN 100,000 UNIT/GM POWD 15 GM TOPICAL SCH ×2 (10:07→22:03)
[2022-11-01] MEDS: CEFEPIME 2 GM in SODIUM CHLORIDE 0.9% 100 ML IVPB SCH ×2 (10:07→21:10)
--- NOTE | 2022-11-01 10:11 | P.CRDCN ---
History of Present Illness History of present illness: HISTORY OF PRESENT ILLNESS: This is a 57 year old female with a past medical history significant for tricuspid valve repair x 2, bacterial endocarditis, pulmonary embolism, seizure disorder, permanent pacemaker implantation secondary to complete heart block, lupus, antiphospholipid antibody syndrome, and spinal stenosis. Patient follows in the office with Dr. Hanson. We have been asked to see the patient in consultation for PORFIRIO/bacteremia. Patient examined at the bedside. Patient is admitted to the hospital secondary to bacteremia. Blood cultures are positive for Serratia Marcescens. Infectious disease is requesting PORFIRIO to be performed. * EKG reveals sinus mechanism with no signs of acute ischemia * Chest xray chronic changes without evidence for acute pulmonary disease * Laboratory data: WBC 11.45. Hemoglobin 11.8. Platelet count 358. Sodium 130. Potassium 4.0. B UN 20. Creatinine 1.44. * Current home cardiac medications include Eliquis 5mg BID, Lipitor 40 mg at night, Bumex 2 mg the morning and 1 mg in the afternoon, spironolactone 50 mg 3 times a day, metoprolol succinate 25 mg daily as needed * Most recent echocardiogram obtained in May 2022 reveals ejection fraction 55%, mild mitral regurgitation, normally functioning prosthetic tricuspid valve, mild TR. * Patient underwent a Dobutamine stress test in May 2022 which did not revea l evidence of ischemia REVIEW OF SYSTEMS: At the time of my exam: CONSTITUTIONAL: Denies fever or chills. HEENT: Denies blurred vision, vision changes, or eye pain. Denies hemoptysis CARDIOVASCULAR: Denies chest pain. Denies orthopnea. Denies PND. Denies palpitations RESPIRATORY: Denies shortness of breath. GASTROINTESTINAL: Denies abdominal pain. Denies nausea or vomiting. HEMATOLOGIC: Denies bleeding disorders. GENITOURINARY: Denies any blood in urine. SKIN: Denies pruitis. Denies rash. PHYSICAL EXAM: VITAL SIGNS: Reviewed. GENERAL: Well-developed in no acute distress. HEENT: Head is normocephalic. Pupils are equal, round. Sclerae anicteric. Mucous membranes of the mouth are moist. Neck supple. No JVD or thyromegaly LUNGS: Respirations even and unlabored. Lungs essentially clear to auscultation bilaterally. HEART: Regular rate and rhythm. S1 and S2 heard. ABDOMEN: Soft. Nondistended. Nontender. EXTREMITIES: Normal range of motion. No clubbing or cyanosis. Peripheral pulses intact. No lower extremity edema NEUROLOGIC: Awake and alert. Oriented x 3. ASSESSMENT: Bacteremia History of permanent pacemaker implantation secondary to complete heart block History of PE Chronic kidney disease History of tricuspid valve repair 2 History of bacterial endocarditis History of seizure disorder Hypertension History of antiphospholipid antibody syndrome Spinal stenosis PLAN: Continue current cardiac medications Patient will undergo PORFIRIO on 11/03/[address] Hanson Nurse practitioner note has been reviewed by physician. Signing provider agrees with the documented findings, assessment, and plan of care. 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 for low K+ History of Any Multi-Drug Resistant Organisms: C-DIFF Date of last positivie culture/infection: 2021 MDRO Source:: Stool Past Surgical History: Back Surgery, Breast Surgery, Cardiac Valve Replacement, Section, Cholecystectomy, Heart Catheterization, Hysterectomy, Pacemaker Additional Past Surgical History / Comment(s): pacemaker d/t bradycardia/hypotension with last one place in 2013 in [place], [place], 3 lower back surgeries, bilateral breast reduction. 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 She is independent. Smoking Status: Former smoker Past Alcohol Use History: None Reported Past Drug Use History: Marijuana Additional Drug Use History / Comment(s): Marijuana use prn per pt. - Past Family History Mother Additional Family Medical History / Comment(s): Mother at the age of 49 yrs after surgery for silicon breast implants with a leak that caused ARDS and DIC per pt Father Family Medical History: Cancer, Hyperlipidemia, Hypertension Additional Family Medical History / Comment(s): Father is a colon cancer survivor. Medications and Allergies Home Medications Medication Instructions Recorded Confirmed Type Atorvastatin [Lipitor] 40 mg PO HS 09/24/21 10/29/22 History Cholestyramine (with Sugar) 4 gm PO DAILY PRN 09/24/21 10/29/22 History [Cholestyramine Packet] Gabapentin 600 mg PO QID 09/24/21 10/29/22 History Sertraline [Zoloft] 200 mg PO DAILY 09/24/21 10/29/22 History Ubrogepant [Ubrelvy] 100 mg PO BID PRN 09/24/21 10/29/22 History rOPINIRole HCL [Requip] 2 mg PO HS 09/24/21 10/29/22 History Budesonide/Glycopyr/Formoterol 1 puff INHALATION RT-BID 03/16/22 10/29/22 History [Breztri Aerosphere Inhaler] Esomeprazole Magnesium [NexIUM] 40 mg PO DAILY 03/16/22 10/29/22 History Botox 200unit Injection 1 dose INJ Q84D 04/02/22 10/29/22 History Meclizine [Antivert] 12.5 mg PO Q8H PRN 04/02/22 10/29/22 History Diphenhydramine 50mg/Ml Vial 50 mg IM Q6H PRN 04/18/22 10/29/22 History Dicyclomine [Bentyl] 20 mg PO TID PRN #30 tablet 04/30/22 10/29/22 Rx Ondansetron Odt [Zofran ODT] 4 mg PO Q8HR PRN #12 tab 04/30/22 10/29/22 Rx Apixaban [Eliquis] 5 mg PO BID 05/29/22 10/29/22 History Spironolactone [Aldactone] 50 mg PO TID 06/11/22 10/29/22 History busPIRone HCl [Buspar] 5 mg PO BID 06/11/22 10/29/22 History Bumetanide [BUMEX] 2 mg PO DAILY 06/24/22 10/29/22 History Zonisamide [Zonegran] 100 mg PO Q12HR 30 Days #60 cap 07/26/22 10/29/22 Rx Bumetanide [BUMEX] 1 mg PO HS 08/26/22 10/29/22 History Lidocaine 5% Patch [Lidoderm 5% 1 patch TRANSDERM DAILY PRN 08/26/22 10/29/22 History Patch] Fludrocortisone [Florinef] 0.1 mg PO DAILY 09/20/22 10/29/22 History Cyclobenzaprine [Flexeril] 10 mg PO TID 09/22/22 10/29/22 History HYDROcodone/APAP 7.5-325MG [[place] 1 tab PO TID PRN 10/29/22 10/29/22 History 7.5-325] Levofloxacin [Levaquin] 500 mg PO DAILY 10/29/22 10/29/22 History Metoprolol Succinate (ER) [Toprol 25 mg PO DAILY PRN 10/29/22 10/29/22 History XL] Midodrine [ProAmatine] 5 mg PO TID PRN 10/29/22 10/29/22 History Potassium Chloride ER [K-Dur 20] 40 meq PO BID 10/29/22 10/29/22 History predniSONE See Taper PO DIRECTED 10/29/22 10/29/22 History Allergies Allergy/AdvReac Type Severity Reaction Status Date / Time Penicillins Allergy Severe Anaphylaxis Verified 10/29/22 08:17 vancomycin Allergy Severe Swelling Verified 10/29/22 08:17 in lips clindamycin Allergy Anaphylaxis Verified 10/29/22 08:17 dexamethasone [From Decadron] Allergy Unknown Verified 10/29/22 08:17 Influenza Virus Vaccines Allergy Unknown Verified 10/29/22 08:17 latex Allergy Unknown Verified 10/29/22 08:17 morphine Allergy Unknown Verified 10/29/22 08:17 prochlorperazine Allergy Unknown Verified 10/29/22 08:17 [From Compazine] galcanezumab-gnlm AdvReac Confusion, Verified 10/29/22 08:17 [From Emgality Pen] increased blood pressure metoclopramide [From Reglan] AdvReac "felt like Verified 10/29/22 08:17 I needed to jump out of my skin" Physical Exam Vitals: Vital Signs Temp Pulse Pulse Resp BP Pulse Ox 11/01/22 08:02 98.7 F 77 18 145/81 96 11/01/22 08:01 93 L 11/01/22 02:14 98.6 F 76 16 97/57 98 10/31/22 20:00 78 78 19 10/31/22 19:28 99.1 F 78 19 122/70 92 L 10/31/22 13:53 100.4 F H 84 18 111/61 96 Intake and Output 10/31/22 11/01/22 11/01/22 22:59 06:59 14:59 Intake Total 440 Output Total 4 Balance 436 Intake: Oral 440 Output: Urine 4 Other: Voiding Method Toilet # Voids 4 Weight 84 kg Results 10/31/22 07:05 10/31/22 06:47 CBC 10/31/22 Range/Units 07:05 WBC 11.45 H (4.50-10.00) X 10*3/uL RBC 4.21 (4.10-5.20) X 10*6/uL Hgb 11.8 L (12.0-15.0) d/dL Hct 38.3 (37.2-46.3) % Plt Count 358 (140-440) X 10*3/uL Current Medications Generic Name Dose Route Start Last Admin Trade Name Freq PRN Reason Stop Dose Admin Acetaminophen 650 mg 10/29/22 02:02 10/31/22 14:29 Acetaminophen Tab 325 Mg Tab PO 650 mg Q6HR PRN Administration Mild Pain or Fever > 100.5 Hydrocodone Bitart/Acetaminophen 1 each 10/29/22 17:22 Hydrocodone/Apap 7.5-325mg 1 Each Tab PO TID PRN Pain Apixaban 5 mg 10/29/22 21:00 10/31/22 20:52 Apixaban 5 Mg Tab PO 5 mg BID ASAD Administration Protocol Atorvastatin Calcium 40 mg 10/29/22 21:00 10/31/22 20:52 Atorvastatin 40 Mg Tab PO 40 mg HS ASAD Administration Bisacodyl 10 mg 10/30/22 22:27 10/30/22 22:52 Bisacodyl 10 Mg Supp RECTAL 10 mg DAILY PRN Administration Constipation Budesonide/Formoterol Fumarate 1 puff 10/29/22 20:00 10/31/22 21:40 Symbicort 160-4.5 Mcg Inhaler INHALATION Not Given RT-BID ASAD Bumetanide 1 mg 10/29/22 21:00 10/31/22 20:53 Bumetanide 1 Mg Tab PO 1 mg HS ASAD Administration Bumetanide 2 mg 10/30/22 09:00 10/31/22 09:34 Bumetanide 1 Mg Tab PO 2 mg DAILY ASAD Administration Buspirone HCl 5 mg 10/29/22 21:00 10/31/22 20:52 Buspirone Hcl 5 Mg Tab PO 5 mg BID ASAD Administration Dicyclomine HCl 20 mg 10/29/22 17:22 Dicyclomine 20 Mg Tab PO TID PRN Pain Diphenhydramine HCl 25 mg 10/29/22 01:09 10/31/22 21:13 Diphenhydramine 50 Mg/Ml 1 Ml Vial IVP 25 mg Q6HR PRN Administration Allergy Symptoms Fludrocortisone Acetate 0.1 mg 10/30/22 09:00 10/31/22 09:33 Fludrocortisone 0.1 Mg Tab PO 0.1 mg DAILY [facility] Administration Gabapentin 600 mg 10/29/22 18:00 10/31/22 20:52 Gabapentin 300 Mg Cap PO 600 mg QID [facility] Administration Hydromorphone HCl 1 mg 10/29/22 02:02 11/01/22 06:30 Hydromorphone 1 Mg/Ml 1 Ml Syringe IVP 1 mg Q3HR PRN Administration Severe Pain (Scale 7 to 10) Cefepime HCl 2 gm/ Sodium 100 mls @ 25 mls/hr 10/30/22 21:00 10/31/22 20:53 Chloride IVPB 25 mls/hr Q12HR ASAD Administration Protocol Ibuprofen 400 mg 10/29/22 02:02 Ibuprofen 400 Mg Tab PO Q6HR PRN Mild Pain or Fever > 100.5 Ipratropium [place] 0.5 mg 10/29/22 20:00 10/31/22 22:50 Ipratropium 0.5 Mg/2.5 Ml Nebu INHALATION Not Given RT-QID [facility] Lidocaine 1 patch 10/29/22 17:22 Lidocaine 5% Patch TOPICAL DAILY PRN Pain Protocol Lorazepam 1 mg 10/28/22 23:17 10/30/22 15:22 Lorazepam 2 Mg/Ml Inj IV 1 mg Q4HR PRN Administration Anxiety Meclizine HCl 12.5 mg 10/29/22 17:22 Meclizine 25 Mg Tab PO Q8H PRN Vertigo Metoprolol Succinate 25 mg 10/29/22 17:22 Metoprolol Succinate (Er) 25 Mg Tab.Er.24h PO DAILY PRN Blood Pressure - High Midodrine 5 mg 10/29/22 17:22 Midodrine 5 Mg Tab PO TID PRN Blood Pressure - Low Naloxone HCl 0.2 mg 10/29/22 02:02 Naloxone 0.4 Mg/Ml 1 Ml Vial IV Q2M PRN Opioid Reversal Nystatin 500,000 unit 10/30/22 22:30 10/31/22 20:51 Nystatin 100,000 Unit/Ml Susp 500,000 Unit/5 Ml Cup PO 500,000 unit QID [facility] Administration Protocol Nystatin 1 applic 10/30/22 22:30 10/31/22 20:54 Nystatin 100,000 Unit/Gm Powd 15 Gm TOPICAL 1 applic BID [facility] Administration Protocol Ondansetron HCl 4 mg 10/28/22 23:17 10/31/22 12:52 Ondansetron 4 Mg/2 Ml Vial IVP 4 mg Q8HR PRN Administration Nausea And Vomiting Ondansetron HCl 4 mg 10/29/22 17:22 Ondansetron Odt 4 Mg Tab PO Q8HR PRN Nausea Pantoprazole Sodium 40 mg 10/30/22 09:00 10/31/22 09:32 Pantoprazole 40 Mg Tablet PO 40 mg DAILY [facility] Administration Potassium Chloride 40 meq 10/29/22 21:00 10/31/22 20:52 Potassium Chloride Er 20 Meq Tab.Er PO 40 meq BID ASAD Administration Ropinirole HCl 2 mg 10/29/22 21:00 10/31/22 20:53 Ropinirole Hcl 1 Mg Tab PO 2 mg HS ASAD Administration Sertraline HCl 200 mg 10/30/22 09:00 10/31/22 09:33 Sertraline 100 Mg Tab PO 200 mg DAILY ASAD Administration Spironolactone 50 mg 10/29/22 22:00 10/31/22 20:53 Spironolactone 25 Mg Tab PO 50 mg TID ASAD Administration Zonisamide 100 mg 10/29/22 21:00 10/31/22 20:52 Zonisamide 100 Mg Cap PO 100 mg Q12HR ASAD Administration Intake and Output 10/31/22 11/01/22 11/01/22 22:59 06:59 14:59 Intake Total 440 Output Total 4 Balance 436 Intake: Oral 440 Output: Urine 4 Other: Voiding Method Toilet # Voids 4 Weight 84 kg 10/31/22 07:05 10/31/22 06:47
[2022-11-01] MEDS: diphenhydrAMINE 50 MG/ML 1 ML VIAL IVP PRN ×2 (10:19→17:14)
--- NOTE | 2022-11-01 10:50 | P.GSCN ---
History of Present Illness Consult date: 11/01/22 Reason for Consult: Port removal Requesting physician: Franklin Hassan History of present illness: This a pleasant 57-year-old female with past medical history significant for seizure disorder, pulmonary embolism, antiphospholipid antibody syndrome, chronic kidney disease stage III, lupus, chronic back pain, migraines, coronary artery disease with previous cardiac valve replacement pacemaker and pacemaker, known to our services who presented to emergency department with concerns of fever. Apparently patient was recently admitted to [facility] and was treated for bacteremia. She was discharged about 3 days ago from the hospital and sent home on oral Levaquin. She then started having a low-grade fever and became concerned and came back for further evaluation. Apparently patient had blood cultures that grew Serratia marcescens from [facility], infectious diseases on consult. Vascular surgery was further consulted by Dr. Hassan for port removal. Patient denies any pain at her port, states it is working fine without any complications, there has been no redness or drainage. The left upper extremity port was placed on 04/30/2022 for difficult IV access and multiple comorbidities. She had explantation of previously placed port with exchange and repositioning of subcutaneous port done on 06/22/[address] Maki for malfunctioning port. States no problems with port since that time. She is scheduled for PORFIRIO on Tuesday. Blood cultures received from port currently pending. She is currently on IV cefepime. Max temp this admission 100.4. She is currently afebrile. She is denying any shortness of breath, chest pain, abdominal pain, nausea or vomiting. Patient's WBC normal on admission, Mild leukocytosis noted yesterday, today's labs currently pending. It does appear may be secondary to dehydration as also noted BUN and creatinine elevated yesterday as well. Review of Systems A 14 point review systems was completed all pertinent positives and negatives as stated in the HPI. 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 for low K+ History of Any Multi-Drug Resistant Organisms: C-DIFF Year Discovered:: 2021 MDRO Source:: Stool Past Surgical History: Back Surgery, Breast Surgery, Cardiac Valve Replacement, Section, Cholecystectomy, Heart Catheterization, Hysterectomy, Pacemaker Additional Past Surgical History / Comment(s): pacemaker d/t b radycardia/hypotension with last one place in 2013 in [place], [place], 3 lower back surgeries, bilateral breast reduction. left upper arm port placed by dr maik 04/30/2022, revised in July 22, tricuspid valve replacement x2 with pig valve Past Anesthesia/Blood Transfusion Reactions: No Reported Reaction Type of Cardiac Device: Permanent Pacemaker, Unknown Device Placement Date:: 2012 Past Psychological History: Anxiety Additional Psychological History / Comment(s): Pt resides with her spouse. She is independent. Smoking Status: Former smoker Past Alcohol Use History: None Reported Past Drug Use History: Marijuana Additional Drug Use History / Comment(s): Marijuana use prn per pt. - Past Family History Mother Additional Family Medical History / Comment(s): Mother at the age of 49 yrs after surgery for silicon breast implants with a leak that caused ARDS and DIC per pt Father Family Medical History: Cancer, Hyperlipidemia, Hypertension Additional Family Medical History / Comment(s): Father is a colon cancer survivor. Medications and Allergies Home Medications Medication Instructions Recorded Confirmed Type Atorvastatin [Lipitor] 40 mg PO HS 09/24/21 10/29/22 History Cholestyramine (with Sugar) 4 gm PO DAILY PRN 09/24/21 10/29/22 History [Cholestyramine Packet] Gabapentin 600 mg PO QID 09/24/21 10/29/22 History Sertraline [Zoloft] 200 mg PO DAILY 09/24/21 10/29/22 History Ubrogepant [Ubrelvy] 100 mg PO BID PRN 09/24/21 10/29/22 History rOPINIRole HCL [Requip] 2 mg PO HS 09/24/21 10/29/22 History Budesonide/Glycopyr/Formoterol 1 puff INHALATION RT-BID 03/16/22 10/29/22 History [Breztri Aerosphere Inhaler] Esomeprazole Magnesium [NexIUM] 40 mg PO DAILY 03/16/22 10/29/22 History Botox 200unit Injection 1 dose INJ Q84D 04/02/22 10/29/22 History Meclizine [Antivert] 12.5 mg PO Q8H PRN 04/02/22 10/29/22 History Diphenhydramine 50mg/Ml Vial 50 mg IM Q6H PRN 04/18/22 10/29/22 History Dicyclomine [Bentyl] 20 mg PO TID PRN #30 tablet 04/30/22 10/29/22 Rx Ondansetron Odt [Zofran ODT] 4 mg PO Q8HR PRN #12 tab 04/30/22 10/29/22 Rx Apixaban [Eliquis] 5 mg PO BID 05/29/22 10/29/22 History Spironolactone [Aldactone] 50 mg PO TID 06/11/22 10/29/22 History busPIRone HCl [Buspar] 5 mg PO BID 06/11/22 10/29/22 History Bumetanide [BUMEX] 2 mg PO DAILY 06/24/22 10/29/22 History Zonisamide [Zonegran] 100 mg PO Q12HR 30 Days #60 cap 07/26/22 10/29/22 Rx Bumetanide [BUMEX] 1 mg PO HS 08/26/22 10/29/22 History Lidocaine 5% Patch [Lidoderm 5% 1 patch TRANSDERM DAILY PRN 08/26/22 10/29/22 History Patch] Fludrocortisone [Florinef] 0.1 mg PO DAILY 09/20/22 10/29/22 History Cyclobenzaprine [Flexeril] 10 mg PO TID 09/22/22 10/29/22 History HYDROcodone/APAP 7.5-325MG [[place] 1 tab PO TID PRN 10/29/22 10/29/22 History 7.5-325] Levofloxacin [Levaquin] 500 mg PO DAILY 10/29/22 10/29/22 History Metoprolol Succinate (ER) [Toprol 25 mg PO DAILY PRN 10/29/22 10/29/22 History XL] Midodrine [ProAmatine] 5 mg PO TID PRN 10/29/22 10/29/22 History Potassium Chloride ER [K-Dur 20] 40 meq PO BID 10/29/22 10/29/22 History predniSONE See Taper PO DIRECTED 10/29/22 10/29/22 History Allergies Allergy/AdvReac Type Severity Reaction Status Date / Time Penicillins Allergy Severe Anaphylaxis Verified 10/29/22 08:17 vancomycin Allergy Severe Swelling Verified 10/29/22 08:17 in lips clindamycin Allergy Anaphylaxis Verified 10/29/22 08:17 dexamethasone [From Decadron] Allergy Unknown Verified 10/29/22 08:17 Influenza Virus Vaccines Allergy Unknown Verified 10/29/22 08:17 latex Allergy Unknown Verified 10/29/22 08:17 morphine Allergy Unknown Verified 10/29/22 08:17 prochlorperazine Allergy Unknown Verified 10/29/22 08:17 [From Compazine] galcanezumab-gnlm AdvReac Confusion, Verified 10/29/22 08:17 [From Emgality Pen] increased blood pressure metoclopramide [From Reglan] AdvReac "felt like Verified 10/29/22 08:17 I needed to jump out of my skin" Surgical - Exam Vital Signs Temp Pulse Resp BP Pulse Ox 99.9 F H 86 20 140/85 94 L 10/28/22 22:14 10/28/22 22:14 10/28/22 22:14 10/28/22 22:14 10/28/22 22:14 General appearance: The patient is alert, oriented, appears in no acute distress. HET: Head is normocephalic and atraumatic. Pupils are equal and reactive. Neck: Supple. Heart: Regular. Lungs: Equal expansion, normal respiratory effort. Abdomen: Soft, nontender, nondistended. Extremities: Normal skin color and turgor. Left upper extremity port in place, no redness, no drainage, nontender to palpation. Neurological: No focal deficits. Strength and sensation are grossly intact. Results - Labs 10/31/22 07:05 10/31/22 06:47 Abnormal Lab Results - Last 24 Hours (Table) 10/31/22 10/31/22 Range/Units 06:47 07:05 WBC 11.45 H (4.50-10.00) X 10*3/uL Hgb 11.8 L (12.0-15.0) d/dL MCHC 30.8 L (32.0-37.0) d/dL Neutrophils # 9.70 H (1.80-7.70) X 10*3/uL ESR 39 H (0-30) mm/Hr Procalcitonin 0.18 H (0.02-0.09) ng/mL Microbiology - Last 24 Hours (Table) 10/29/22 18:28 Blood Culture - Preliminary Blood 10/28/22 22:50 Blood Culture Gram Stain - Final Blood Blood Culture - Final Serratia marcescens 10/28/22 23:00 Blood Culture Gram Stain - Final Blood Blood Culture - Final Serratia marcescens Assessment and Plan Assessment: 1. Fever, with recent Serratia marcescens bacteremia 2. Left upper extremity port 3. History of permanent pacemaker implantation 4. History of heart valve replacement 5. History of pulmonary embolism 6. Antiphospholipid lipid antibody syndrome 7. Chronic kidney disease 8. History of seizure disorder Plan: Dr. Maki Discussed patient's case with infectious disease. At this time will await most recent blood cultures. Will continue to treat with IV antibiotics per recommendations from infectious disease and await his recommendations. No plans on port removal at this time. Thank you for this consultation, we will continue to follow. The impression and plan of care has been dictated as directed. Dr. Maki I performed a history and examination of this patient, discussed the same with the dictator. I agree with the dictator's note ,documented as a scribe. Any additional findings or plans will be noted. DOUBT INFECTED PORT. DUE TO PATIENTS POOR ACCESS, WOULD MAINTAIN UNLESS PROVED INFECTED. AWAIT WBC SCAN AND CX.
[2022-11-01] MEDS: ACETAMINOPHEN TAB 325 MG TAB PO PRN (12:18)
--- NOTE | 2022-11-01 16:09 | NM ---
EXAMINATION TYPE: NM WBC whole body DATE OF EXAM: 11/01/2022 COMPARISON: NONE CLINICAL INDICATION: Female, 57 years old with history of bacteremia , source; TECHNIQUE: Following administration of 16.9 mCi Tc99m Ceretec. Images obtained 3.5 hours post injec tion. FINDINGS: Normal physiological tracer activity is noted in the liver and spleen and in the bone marrow of the a xial and appendicular skeleton. There is vague increased uptake overlying the region of the right hem icolon. In addition there is mild increased uptake overlying the right lung. IMPRESSION: Mild increased radiotracer activity involving the region of the cecum and ascending colon. Correlate for colitis. Increased uptake right lung may reflect underlying infectious pneumonia.
[2022-11-01] MEDS: MAG HYDROX/AL HYDROX/SIMETH 30 ML, diphenhydrAMINE ELIXIR 75 MG, LIDOCAINE VISCOUS 2% 3... PO SCH ×6 (17:25→21:07)
[2022-11-01] MEDS: HYDROcodone/APAP 7.5-325MG 1 EACH TAB PO PRN (21:05)
[2022-11-01] MEDS: ATORVASTATIN 40 MG TAB PO SCH (21:06)
[2022-11-01] MEDS: LIDOCAINE 5% PATCH TOPICAL PRN (21:37)
[2022-11-01] MEDS: IPRATROPIUM 0.5 MG/2.5 ML NEBU INHALATION SCH ×3 (23:07→23:09)
[2022-11-01] MEDS: SYMBICORT 160-4.5 MCG INHALER INHALATION SCH ×2 (23:07→23:08)
--- NOTE | 2022-11-01 23:41 | P.PN ---
Progress Note - Text Progress Note Date: 11/01/22 Hospital course: I'm rounding for Dr. Franklin Hassan. Patient is a 57-year-old female with a past medical history significant for seizure disorder pulm embolism antiphospholipid antibody syndrome patient mention she was recently admitted at [facility] with the patient was treated for Serratia marcescens bacteremia, and was discharged on Levaquin with the patient presented back to the hospital complaining of fever and blood cultures had a positive for Serratia marcescens On today's evaluation 10/31/2022, the patient did have a low-grade fever 100.4 this afternoon and the patient mentioned in feeling as good today, she is breathing comfortably on room air denies any chest pain occasional cough some nausea but no vomiting no abdominal pain no diarrhea November 01: Patient is pending T on Tuesday. Appetite is improving. Had a bowel movement. Patient's chronic skin changes from 2012 with pyoderma gangrenosum. Tired. Remains on IV cefepime. Active Medications Acetaminophen (Acetaminophen Tab 325 Mg Tab) 650 mg PO Q6HR PRN PRN Reason: Mild Pain or Fever > 100.5 Last Admin: 11/01/22 12:18 Dose: 650 mg Hydrocodone Bitart/Acetaminophen (Hydrocodone/Apap 7.5-325mg 1 Each Tab) 1 each PO TID PRN PRN Reason: Pain Last Admin: 11/01/22 21:05 Dose: 1 each Apixaban (Apixaban 5 Mg Tab) 5 mg PO BID [facility]; Protocol Last Admin: 11/01/22 21:06 Dose: 5 mg Atorvastatin Calcium (Atorvastatin 40 Mg Tab) 40 mg PO HS [facility] Last Admin: 11/01/22 21:06 Dose: 40 mg Bisacodyl (Bisacodyl 10 Mg Supp) 10 mg RECTAL DAILY PRN PRN Reason: Constipation Last Admin: 10/30/22 22:52 Dose: 10 mg Budesonide/Formoterol Fumarate (Symbicort 160-4.5 Mcg Inhaler) 1 puff INHALATION RT-BID [facility] Last Admin: 11/01/22 23:08 Dose: Not Given Bumetanide (Bumetanide 1 Mg Tab) 1 mg PO HS [facility] Last Admin: 11/01/22 21:06 Dose: 1 mg Bumetanide (Bumetanide 1 Mg Tab) 2 mg PO DAILY [facility] Last Admin: 11/01/22 10:06 Dose: 2 mg Buspirone HCl (Buspirone Hcl 5 Mg Tab) 5 mg PO BID [facility] Last Admin: 11/01/22 21:06 Dose: 5 mg Al Hydroxide/Mg Hydroxide 30 ml/ Diphenhydramine HCl 75 mg/Lidocaine HCl 30 ml 0 ml PO QID [facility] Last Admin: 11/01/22 21:07 Dose: Not Given Dicyclomine HCl (Dicyclomine 20 Mg Tab) 20 mg PO TID PRN PRN Reason: Pain Diphenhydramine HCl (Diphenhydramine 50 Mg/Ml 1 Ml Vial) 25 mg IVP Q6HR PRN PRN Reason: Allergy Symptoms Last Admin: 11/01/22 17:14 Dose: 25 mg Fludrocortisone Acetate (Fludrocortisone 0.1 Mg Tab) 0.1 mg PO DAILY [facility] Last Admin: 11/01/22 10:06 Dose: 0.1 mg Gabapentin (Gabapentin 300 Mg Cap) 600 mg PO QID [facility] Last Admin: 11/01/22 21:06 Dose: 600 mg Hydromorphone HCl (Hydromorphone 1 Mg/Ml 1 Ml Syringe) 1 mg IVP Q3HR PRN PRN Reason: Severe Pain (Scale 7 to 10) Last Admin: 11/01/22 19:27 Dose: 1 mg Cefepime HCl 2 gm/ Sodium (Chloride) 100 mls @ 25 mls/hr IVPB Q12HR [facility]; Pr otocol Last Admin: 11/01/22 21:10 Dose: 25 mls/hr Ibuprofen (Ibuprofen 400 Mg Tab) 400 mg PO Q6HR PRN PRN Reason: Mild Pain or Fever > 100.5 Ipratropium Debord (Ipratropium 0.5 Mg/2.5 Ml Nebu) 0.5 mg INHALATION RT-QID [facility] Last Admin: 11/01/22 23:09 Dose: Not Given Lidocaine (Lidocaine 5% Patch) 1 patch TOPICAL DAILY PRN; Protocol PRN Reason: Pain Last Admin: 11/01/22 21:37 Dose: 1 patch Lorazepam (Lorazepam 2 Mg/Ml Inj) 1 mg IV Q4HR PRN PRN Reason: Anxiety Last Admin: 10/30/22 15:22 Dose: 1 mg Meclizine HCl (Meclizine 25 Mg Tab) 12.5 mg PO Q8H PRN PRN Reason: Vertigo Metoprolol Succinate (Metoprolol Succinate (Er) 25 Mg Tab.Er.24h) 25 mg PO DAILY PRN PRN Reason: Blood Pressure - High Midodrine (Midodrine 5 Mg Tab) 5 mg PO TID PRN PRN Reason: Blood Pressure - Low Naloxone HCl (Naloxone 0.4 Mg/Ml 1 Ml Vial) 0.2 mg IV Q2M PRN PRN Reason: Opioid Reversal Nystatin (Nystatin 100,000 Unit/Ml Susp 500,000 Unit/5 Ml Cup) 500,000 unit PO QID [facility]; Protocol Last Admin: 11/01/22 21:06 Dose: Not Given Nystatin (Nystatin 100,000 Unit/Gm Powd 15 Gm) 1 applic TOPICAL BID [facility]; Protocol Last Admin: 11/01/22 22:03 Dose: Not Given Ondansetron HCl (Ondansetron 4 Mg/2 Ml Vial) 4 mg IVP Q8HR PRN PRN Reason: Nausea And Vomiting Last Admin: 10/31/22 12:52 Dose: 4 mg Ondansetron HCl (Ondansetron Odt 4 Mg Tab) 4 mg PO Q8HR PRN PRN Reason: Nausea Pantoprazole Sodium (Pantoprazole 40 Mg Tablet) 40 mg PO DAILY [facility] Last Admin: 11/01/22 10:06 Dose: 40 mg Potassium Chloride (Potassium Chloride Er 20 Meq Tab.Er) 40 meq PO BID [facility] Last Admin: 11/01/22 21:06 Dose: 40 meq Ropinirole HCl (Ropinirole Hcl 1 Mg Tab) 2 mg PO HS [facility] Last Admin: 11/01/22 21:34 Dose: 2 mg Sertraline HCl (Sertraline 100 Mg Tab) 200 mg PO DAILY [facility] Last Admin: 11/01/22 10:06 Dose: 200 mg Spironolactone (Spironolactone 25 Mg Tab) 50 mg PO TID [facility] Last Admin: 11/01/22 21:06 Dose: 50 mg Zonisamide (Zonisamide 100 Mg Cap) 100 mg PO Q12HR [facility] Last Admin: 11/01/22 21:06 Dose: 100 mg On examination: VITAL SIGNS: [99.2, 94, 19, 126/68, 95% on 2 L] GENERAL APPEARANCE: BMI 33.9, reclining in bed tired HEENT: Normal external appearance of nose and ear. Oral cavity normal EYES: Pupils equal. Conjunctiva normal. NECK: JVD not raised. Mass not palpable. RESPIRATORY: Respiratory effort increased. Lungs decreased breath sounds CARDIOVASCULAR: First and second sounds normal. No edema. ABDOMEN: Soft. Liver and spleen not palpable. No tenderness. No mass palpable. PSYCHIATRY: Alert and oriented x3. Mood and affect normal. DERMATOLOGICAL: Chronic large annular healed lesions on the extremities INVESTIGATIONS, reviewed in the clinical context: C. diff: Negative October 31: White count 11.4 hemoglobin 11.8 platelets 358 potassium 4 BUN 20 creatinine 1.44 procalcitonin 0.18 Assessment and plan: -Persistent bacteremia with Serratia marcescens. No source has been found. Pending PORFIRIO this Tuesday. IV cefepime -Antiphospholipid antibody syndrome. Causing multiple PEs. 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 Sit up in a chair. Use incentive spirometry. Scheduled for PORFIRIO on Tuesday.
[2022-11-02] MEDS: diphenhydrAMINE 50 MG/ML 1 ML VIAL IVP PRN ×3 (04:13→19:47)
[2022-11-02] MEDS: HYDROmorphone 1 MG/ML 1 ML SYRINGE IVP PRN ×4 (04:14→21:33)
[2022-11-02] MEDS: busPIRone HCl 5 MG TAB PO SCH ×2 (09:44→21:30)
[2022-11-02] MEDS: BUMETANIDE 1 MG TAB PO SCH ×2 (09:44→21:30)
[2022-11-02] MEDS: APIXABAN 5 MG TAB PO SCH ×2 (09:44→21:30)
[2022-11-02] MEDS: CEFEPIME 2 GM in SODIUM CHLORIDE 0.9% 100 ML IVPB SCH ×2 (09:44→21:29)
[2022-11-02] MEDS: NYSTATIN 100,000 UNIT/ML SUSP 500,000 UNIT/5 ML CUP PO SCH ×4 (09:45→21:30)
[2022-11-02] MEDS: GABAPENTIN 300 MG CAP PO SCH ×4 (09:45→21:30)
[2022-11-02] MEDS: PANTOPRAZOLE 40 MG TABLET PO SCH (09:45)
[2022-11-02] MEDS: NYSTATIN 100,000 UNIT/GM POWD 15 GM TOPICAL SCH ×2 (09:45→21:39)
[2022-11-02] MEDS: FLUDROCORTISONE 0.1 MG TAB PO SCH (09:45)
[2022-11-02] MEDS: MAG HYDROX/AL HYDROX/SIMETH 30 ML, diphenhydrAMINE ELIXIR 75 MG, LIDOCAINE VISCOUS 2% 3... PO SCH ×12 (09:46→21:39)
[2022-11-02] MEDS: POTASSIUM CHLORIDE ER 20 MEQ TAB.ER PO SCH ×2 (09:46→21:30)
[2022-11-02] MEDS: SPIRONOLACTONE 25 MG TAB PO SCH ×3 (09:46→21:30)
[2022-11-02] MEDS: SERTRALINE 100 MG TAB PO SCH (09:46)
[2022-11-02] MEDS: ZONISAMIDE 100 MG CAP PO SCH ×2 (09:46→21:30)
[2022-11-02] MEDS: ACETAMINOPHEN TAB 325 MG TAB PO PRN ×2 (09:47→19:54)
[2022-11-02] MEDS: IPRATROPIUM 0.5 MG/2.5 ML NEBU INHALATION SCH ×3 (10:42→20:38)
[2022-11-02] MEDS: SYMBICORT 160-4.5 MCG INHALER INHALATION SCH ×2 (10:43→20:38)
--- NOTE | 2022-11-02 11:04 | P.PN ---
Subjective Progress Note Date: 11/02/22 Principal diagnosis: Fever, bacteremia Vision is seen and examined today as a follow-up. She continues to have no redness drainage or pain around left upper extremity port. She had WBC scan yesterday however reporting a mild increased radiotracer activity involving the region of the cecum and ascending colon. Correlate for colitis. Increased uptake right lung may reflect underlying infectious pneumonia.blood cultures came back as Serratia marcescens. She remains on IV antibiotics and infectious disease is following. She is afebrile today. States she has had some loose stool. Objective - Vital Signs Vital signs: Vital Signs Temp 99.1 F 11/02/22 07:42 Pulse 80 11/02/22 07:42 Resp 16 11/02/22 07:42 BP 152/76 11/02/22 07:42 Pulse Ox 96 11/02/22 07:42 FiO2 Intake & Output 11/01/22 11/02/22 11/02/22 18:59 06:59 18:59 Intake Total 240 Balance 240 Weight 81.5 kg Intake: Oral 240 Other: Voiding Method Toilet # Voids 1 1 - Exam General appearance: The patient is alert, oriented, appears in no acute distress. HET: Head is normocephalic and atraumatic. Neck: Supple. Abdomen: Soft, nontender, nondistended. Extremities: Normal skin color and turgor. Left upper extremity port intact with dressing, no redness, drainage, or tenderness. Neurological: No focal deficits. Strength and sensation are grossly intact. - Labs CBC & Chem 7: 10/31/22 07:05 10/31/22 06:47 Labs: Microbiology - Last 24 Hours (Table) 10/29/22 18:28 Blood Culture - Preliminary Blood 10/31/22 06:47 Blood Culture - Preliminary Blood Assessment and Plan Assessment: 1. Bacteremia with positive blood culture for Serratia marcescens 2. Possible colitis per WBC scan 3. Possible right lobe pneumonia per WBC scan 4. Left upper extremity port 5. History of permanent pacemaker implantation 6. History of heart valve replacement 7. History of pulmonary embolism 8. Antiphospholipid lipid antibody syndrome 9. Chronic kidney disease 10. History of seizure disorder Plan: Dr. Gomez Discussed patient's case with infectious disease. WBC scan reviewed without any evidence of port infection. Continue with recommendations from infectious disease. No plans on port removal. Thank you for this consultation, we will sign off at this time. The impression and plan of care has been dictated as directed. Dr. Gomez I performed a history and examination of this patient, discussed the same with the dictator. I agree with the dictator's note ,documented as a scribe. Any additional findings or plans will be noted.
--- NOTE | 2022-11-02 11:07 | P.PN ---
Subjective HISTORY OF PRESENT ILLNESS: This is a 57 year old female with a past medical history significant for tricuspid valve repair x 2, bacterial endocarditis, pulmonary embolism, seizure disorder, permanent pacemaker implantation secondary to complete heart block, lupus, antiphospholipid antibody syndrome, and spinal stenosis. Patient follows in the office with Dr. Hanson. We have been asked to see the patient in consultation for PORFIRIO/bacteremia. Patient examined at the bedside. Patient is admitted to the hospital secondary to bacteremia. Blood cultures are positive for Serratia Marcescens. Infectious disease is requesting OPRFIRIO to be performed. * EKG reveals sinus mechanism with no signs of acute ischemia * Chest xray chronic changes without evidence for acute pulmonary disease * Laboratory data: WBC 11.45. Hemoglobin 11.8. Platelet count 358. Sodium 130. Potassium 4.0. B UN 20. Creatinine 1.44. * Current home cardiac medications include Eliquis 5mg BID, Lipitor 40 mg at night, Bumex 2 mg the morning and 1 mg in the afternoon, spironolactone 50 mg 3 times a day, metoprolol succinate 25 mg daily as needed * Most recent echocardiogram obtained in May 2022 reveals ejection fraction 55%, mild mitral regurgitation, normally functioning prosthetic tricuspid valve, mild TR. * Patient underwent a Dobutamine stress test in May 2022 which did not reveal evidence of ischemia 11/02/2022 A she examined this morning at the bedside. Patient denies chest pain or pressure. She denies shortness of breath. Patient underwent nuclear WBC body scan yesterday revealing increased radiotracer activity involving the region of the cecum and ascending colon. Correlate for colitis. Increased uptake right lung may reflect underlying infectious pneumonia. PHYSICAL EXAM: VITAL SIGNS: Reviewed. GENERAL: Well-developed in no acute distress. HEENT: Head is normocephalic. Pupils are equal, round. Sclerae anicteric. Mucous membranes of the mouth are moist. Neck supple. No JVD or thyromegaly LUNGS: Respirations even and unlabored. Lungs essentially clear to auscultation bilaterally. HEART: Regular rate and rhythm. S1 and S2 heard. ABDOMEN: Soft. Nondistended. Nontender. EXTREMITIES: Normal range of motion. No clubbing or cyanosis. Peripheral pulses intact. No lower extremity edema NEUROLOGIC: Awake and alert. Oriented x 3. ASSESSMENT: Bacteremia Abnormal nuclear WBC scan showing possible colitis and right lung pneumonia History of permanent pacemaker implantation secondary to complete heart block History of PE Chronic kidney disease History of tricuspid valve repair 2 History of bacterial endocarditis History of seizure disorder Hypertension History of antiphospholipid antibody syndrome Spinal stenosis PLAN: Continue current cardiac medications NPO at midnight Patient will undergo PORFIRIO on 11/03/[address] Hanson Nurse practitioner note has been reviewed by physician. Signing provider agrees with the documented findings, assessment, and plan of care. Objective - Vital Signs Vital signs: Vital Signs Temp 99.1 F 11/02/22 07:42 Pulse 72 11/02/22 10:39 Resp 16 11/02/22 07:42 BP 152/76 11/02/22 07:42 Pulse Ox 96 11/02/22 08:40 FiO2 Intake & Output 11/01/22 11/02/22 11/02/22 18:59 06:59 18:59 Intake Total 240 Balance 240 Weight 81.5 kg Intake: Oral 240 Other: Voiding Method Toilet # Voids 1 1 - Labs CBC & Chem 7: 10/31/22 07:05 10/31/22 06:47 Labs: Microbiology - Last 24 Hours (Table) 10/29/22 18:28 Blood Culture - Preliminary Blood 10/31/22 06:47 Blood Culture - Preliminary Blood
[2022-11-02] MEDS: LORazepam 2 MG/ML INJ IV PRN (14:57)
--- NOTE | 2022-11-02 15:35 | P.PN ---
Subjective Progress Note Date: 11/01/22 Principal diagnosis: Bacteremia Patient is a 57-year-old female with a past medical history significant for seizure disorder pulm embolism antiphospholipid antibody syndr ome patient mention she was recently admitted at [facility] with the patient was treated for Serratia marcescens bacteremia, and was discharged on Levaquin with the patient presented back to the hospital complaining of fever and blood cultures had a positive for Serratia marcescens On today's evaluation 11/01/2022, the patient is afebrile today, the patient is breathing comfortably on room air denies any chest pain occasional cough some nausea but no vomiting no abdominal pain no diarrhea, has been complaining of some discomfort with the upper molar tooth Objective - Vital Signs Vital signs: Vital Signs Temp 98.7 F 11/01/22 08:02 Pulse 77 11/01/22 08:02 Resp 18 11/01/22 08:02 BP 145/81 11/01/22 08:02 Pulse Ox 96 11/01/22 08:02 FiO2 Intake & Output 10/31/22 11/01/22 11/01/22 18:59 06:59 18:59 Intake Total 240 200 Output Total 4 Balance 236 200 Weight 84 kg Intake: Oral 240 200 Output: Urine 4 Other: Voiding Method Toilet Toilet # Voids 4 - Exam GENERAL DESCRIPTION: Middle-age female up in bed in no distress RESPIRATORY SYSTEM: Unlabored breathing , decreased breath sounds at bases HEART: S1 S2 regular rate and rhythm , ABDOMEN: Soft , no tenderness EXTREMITIES: No edema feet - Labs CBC & Chem 7: 10/31/22 07:05 10/31/22 06:47 Labs: Abnormal Lab Results - Last 24 Hours (Table) 10/31/22 10/31/22 Range/Units 06:47 07:05 WBC 11.45 H (4.50-10.00) X 10*3/uL Hgb 11.8 L (12.0-15.0) d/dL MCHC 30.8 L (32.0-37.0) d/dL Neutrophils # 9.70 H (1.80-7.70) X 10*3/uL ESR 39 H (0-30) mm/Hr Procalcitonin 0.18 H (0.02-0.09) ng/mL Microbiology - Last 24 Hours (Table) 10/29/22 18:28 Blood Culture - Preliminary Blood 10/28/22 22:50 Blood Culture Gram Stain - Final Blood Blood Culture - Final Serratia marcescens 10/28/22 23:00 Blood Culture Gram Stain - Final Blood Blood Culture - Final Serratia marcescens Assessment and Plan (1) Bacteremia Current Visit: Yes Status: Acute Code(s): R78.81 - BACTEREMIA SNOMED Code(s): 9436740 Plan: 1patient presented to hospital with fever weakness and chills and this patient apparently recently did have a Serratia marcescens bacteremia with the patient was admitted to the [facility] patient initial work-up has been negative so far chest x-ray did not show any evidence of pneumonia urine has been negative concern for possible abdominal source as the patient have some abdominal pain and constipation 2-patient with a penicillin allergy that will limit the number of antibiotics safe to use 3- CT abdominal pelvis with oral contrast did not show any evidence of abscess, [place] crest was negative for any pneumonia 4-blood culture repeat 10/29/2022 as well as 10/31/2022 so far negative, car diology has been consulted for PORFIRIO , WBC scan is currently in progress 5-patient to continue with the cefepime and monitor clinical course closely Multiple questions concerned were answered Time with Patient: Less than 30
--- NOTE | 2022-11-02 15:37 | P.PN ---
Subjective Progress Note Date: 11/02/22 Principal diagnosis: Bacteremia Patient is a 57-year-old female with a past medical history significant for seizure disorder pulm embolism antiphospholipid antibody syndr ome patient mention she was recently admitted at [facility] with the patient was treated for Serratia marcescens bacteremia, and was discharged on Levaquin with the patient presented back to the hospital complaining of fever and blood cultures had a positive for Serratia marcescens On today's evaluation 11/02/2022, the patient remains to be afebrile, the patient is breathing comfortably on room air, the patient denies any chest pain occasional cough some nausea but no vomiting no abdominal pain no diarrhea, no new symptoms Objective - Vital Signs Vital signs: Vital Signs Temp 99.1 F 11/02/22 07:42 Pulse 72 11/02/22 10:39 Resp 16 11/02/22 08:40 BP 152/76 11/02/22 07:42 Pulse Ox 96 11/02/22 08:40 FiO2 Intake & Output 11/01/22 11/02/22 11/02/22 18:59 06:59 18:59 Intake Total 240 Balance 240 Weight 81.5 kg Intake: Oral 240 Other: Voiding Method Toilet Toilet # Voids 1 1 - Exam GENERAL DESCRIPTION: Middle-age female up in bed in no distress RESPIRATORY SYSTEM: Unlabored breathing , decreased breath sounds at bases HEART: S1 S2 regular rate and rhythm , ABDOMEN: Soft , no tenderness EXTREMITIES: No edema feet - Labs CBC & Chem 7: 10/31/22 07:05 10/31/22 06:47 Labs: Microbiology - Last 24 Hours (Table) 10/29/22 18:28 Blood Culture - Preliminary Blood 10/31/22 06:47 Blood Culture - Preliminary Blood Assessment and Plan (1) Bacteremia Current Visit: Yes Status: Acute Code(s): R78.81 - BACTEREMIA SNOMED Code(s): 0237199 Plan: 1patient presented to hospital with fever weakness and chills and this patient apparently recently did have a Serratia marcescens bacteremia with the patient was admitted to the [facility] patient initial work-up has been negative so far chest x-ray did not show any evidence of pneumonia urine has been negative concern for possible abdominal source as the patient have some abdominal pain and constipation 2-patient with a penicillin allergy that will limit the number of antibiotics safe to use 3- CT abdominal pelvis with oral contrast did not show any evidence of abscess, [place] crest was negative for any pneumonia 4-blood culture repeat 10/29/2022 as well as 10/31/2022 so far negative, ca rdiology has been consulted for PORFIRIO scheduled for 11/03/2022, WBC scan did show some uptake in the abdomen and lungs however the patient did have CT of abdominal pelvis did not show any acute abnormality and CT of the chest was negative for any pneumonia this was explained to the patient in layman terms 5-patient to continue with the cefepime and plan will be for IV antibiotics on discharge duration depends upon PORFIRIO results Time with Patient: Less than 30
[2022-11-02] MEDS: HYDROcodone/APAP 7.5-325MG 1 EACH TAB PO PRN (19:48)
[2022-11-02] MEDS: ATORVASTATIN 40 MG TAB PO SCH (21:30)
--- NOTE | 2022-11-02 21:32 | P.PN ---
Progress Note - Text Progress Note Date: 11/02/22 Hospital course: I'm rounding for Dr. Franklin Hassan. Patient is a 57-year-old female with a past medical history significant for seizure disorder pulm embolism antiphospholipid antibody syndrome patient mention she was recently admitted at [facility] with the patient was treated for Serratia marcescens bacteremia, and was discharged on Levaquin with the patient presented back to the hospital complaining of fever and blood cultures had a positive for Serratia marcescens On today's evaluation 10/31/2022, the patient did have a low-grade fever 100.4 this afternoon and the patient mentioned in feeling as good today, she is breathing comfortably on room air denies any chest pain occasional cough some nausea but no vomiting no abdominal pain no diarrhea November 01: Patient is pending PORFIRIO on Tuesday. Appetite is improving. Had a bowel movement. Patient's chronic skin changes from 2012 with pyoderma gangrenosum. Tired. Remains on IV cefepime. November 02: Afebrile. IV cefepime. Pending PORFIRIO tomorrow. WBC whole-body scan showed mild increase in radiotracer activity in the region of the cecum and ascending colon. Also mild uptake right lung. Patient does describe some shortness of breath. Active Medications Acetaminophen (Acetaminophen Tab 325 Mg Tab) 650 mg PO Q6HR PRN PRN Reason: Mild Pain or Fever > 100.5 Last Admin: 11/02/22 19:54 Dose: 650 mg Hydrocodone Bitart/Acetaminophen (Hydrocodone/Apap 7.5-325mg 1 Each Tab) 1 each PO TID PRN PRN Reason: Pain Last Admin: 11/02/22 19:48 Dose: 1 each Apixaban (Apixaban 5 Mg Tab) 5 mg PO BID ASAD; Protocol Last Admin: 11/02/22 09:44 Dose: 5 mg Atorvastatin Calcium (Atorvastatin 40 Mg Tab) 40 mg PO HS ASDA Last Admin: 11/01/22 21:06 Dose: 40 mg Bisacodyl (Bisacodyl 10 Mg Supp) 10 mg RECTAL DAILY PRN PRN Reason: Constipation Last Admin: 10/30/22 22:52 Dose: 10 mg Budesonide/Formoterol Fumarate (Symbicort 160-4.5 Mcg Inhaler) 1 puff INHALATION RT-BID ASAD Last Admin: 11/02/22 20:38 Dose: 1 puff Bumetanide (Bumetanide 1 Mg Tab) 1 mg PO HS [facility] Last Admin: 11/01/22 21:06 Dose: 1 mg Bumetanide (Bumetanide 1 Mg Tab) 2 mg PO DAILY [facility] Last Admin: 11/02/22 09:44 Dose: 2 mg Buspirone HCl (Buspirone Hcl 5 Mg Tab) 5 mg PO BID [facility] Last Admin: 11/02/22 09:44 Dose: 5 mg Al Hydroxide/Mg Hydroxide 30 ml/ Diphenhydramine HCl 75 mg/Lidocaine HCl 30 ml 0 ml PO QID [facility] Last Admin: 11/02/22 17:19 Dose: 5 ml Dicyclomine HCl (Dicyclomine 20 Mg Tab) 20 mg PO TID PRN PRN Reason: Pain Diphenhydramine HCl (Diphenhydramine 50 Mg/Ml 1 Ml Vial) 25 mg IVP Q6HR PRN PRN Reason: Allergy Symptoms Last Admin: 11/02/22 19:47 Dose: 25 mg Fludrocortisone Acetate (Fludrocortisone 0.1 Mg Tab) 0.1 mg PO DAILY [facility] Last Admin: 11/02/22 09:45 Dose: 0.1 mg Gabapentin (Gabapentin 300 Mg Cap) 600 mg PO QID [facility] Last Admin: 11/02/22 17:23 Dose: Not Given Hydromorphone HCl (Hydromorphone 1 Mg/Ml 1 Ml Syringe) 1 mg IVP Q3HR PRN PRN Reason: Severe Pain (Scale 7 to 10) Last Admin: 11/02/22 14:25 Dose: 1 mg Cefepime HCl 2 gm/ Sodium (Chloride) 100 mls @ 25 mls/hr IVPB Q12HR [facility]; Protocol Last Admin: 11/02/22 09:44 Dose: 25 mls/hr Ibuprofen (Ibuprofen 400 Mg Tab) 400 mg PO Q6HR PRN PRN Reason: Mild Pain or Fever > 100.5 Ipratropium [place] (Ipratropium 0.5 Mg/2.5 Ml Nebu) 0.5 mg INHALATION RT-QID [facility] Last Admin: 11/02/22 20:38 Dose: 0.5 mg Lidocaine (Lidocaine 5% Patch) 1 patch TOPICAL DAILY PRN; Protocol PRN Reason: Pain Last Admin: 11/01/22 21:37 Dose: 1 patch Lorazepam (Lorazepam 2 Mg/Ml Inj) 1 mg IV Q4HR PRN PRN Reason: Anxiety Last Admin: 11/02/22 14:57 Dose: 1 mg Meclizine HCl (Meclizine 25 Mg Tab) 12.5 mg PO Q8H PRN PRN Reason: Vertigo Metoprolol Succinate (Metoprolol Succinate (Er) 25 Mg Tab.Er.24h) 25 mg PO DAILY PRN PRN Reason: Blood Pressure - High Midodrine (Midodrine 5 Mg Tab) 5 mg PO TID PRN PRN Reason: Blood Pressure - Low Naloxone HCl (Naloxone 0.4 Mg/Ml 1 Ml Vial) 0.2 mg IV Q2M PRN PRN Reason: Opioid Reversal Nystatin (Nystatin 100,000 Unit/Ml Susp 500,000 Unit/5 Ml Cup) 500,000 unit PO QID [facility]; Protocol Last Admin: 11/02/22 17:18 Dose: 500,000 unit Nystatin (Nystatin 100,000 Unit/Gm Powd 15 Gm) 1 applic TOPICAL BID [facility]; Protocol Last Admin: 11/02/22 09:45 Dose: 1 applic Ondansetron HCl (Ondansetron 4 Mg/2 Ml Vial) 4 mg IVP Q8HR PRN PRN Reason: Nausea And Vomiting Last Admin: 10/31/22 12:52 Dose: 4 mg Ondansetron HCl (Ondansetron Odt 4 Mg Tab) 4 mg PO Q8HR PRN PRN Reason: Nausea Pantoprazole Sodium (Pantoprazole 40 Mg Tablet) 40 mg PO DAILY [facility] Last Admin: 11/02/22 09:45 Dose: 40 mg Potassium Chloride (Potassium Chloride Er 20 Meq Tab.Er) 40 meq PO BID [facility] Last Admin: 11/02/22 09:46 Dose: 40 meq Ropinirole HCl (Ropinirole Hcl 1 Mg Tab) 2 mg PO HS [facility] Last Admin: 11/01/22 21:34 Dose: 2 mg Sertraline HCl (Sertraline 100 Mg Tab) 200 mg PO DAILY [facility] Last Admin: 11/02/22 09:46 Dose: 200 mg Spironolactone (Spironolactone 25 Mg Tab) 50 mg PO TID [facility] Last Admin: 11/02/22 17:18 Dose: 50 mg Zonisamide (Zonisamide 100 Mg Cap) 100 mg PO Q12HR ASAD Last Admin: 11/02/22 09:46 Dose: 100 mg On examination: VITAL SIGNS: 98.3, 93, 16, 152/88, 95% room air GENERAL APPEARANCE: BMI 33.9, reclining in bed tired HEENT: Normal external appearance of nose and ear. Oral cavity normal EYES: Pupils equal. Conjunctiva normal. NECK: JVD not raised. Mass not palpable. RESPIRATORY: Respiratory effort increased. Lungs decreased breath sounds CARDIOVASCULAR: First and second sounds normal. No edema. ABDOMEN: Soft. Liver and spleen not palpable. No tenderness. No mass palpable. PSYCHIATRY: Alert and oriented x3. Mood and affect normal. DERMATOLOGICAL: Chronic large annular healed lesions on the extremities INVESTIGATIONS, reviewed in the clinical context: WBC scan: Mild uptake in the right lung, mild uptake in the cecum and right colon. ESR 39 C. diff: Negative October 31: White count 11.4 hemoglobin 11.8 platelets 358 potassium 4 BUN 20 creatinine 1.44 procalcitonin 0.18 Assessment and plan: -Persistent bacteremia with Serratia marcescens. No source has been found. Pending PORFIRIO tomorrow WBC scan not very affirmative. IV cefepime -Antiphospholipid antibody syndrome. Causing multiple PEs. 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 Continue antibiotics. PORFIRIO tomorrow. Currently doubt pneumonia/GI source of infection based on WBC scan.
[2022-11-03] MEDS: SYMBICORT 160-4.5 MCG INHALER INHALATION SCH ×3 (04:00→21:13)
[2022-11-03] MEDS: IPRATROPIUM 0.5 MG/2.5 ML NEBU INHALATION SCH ×5 (04:00→21:14)
[2022-11-03] MEDS: diphenhydrAMINE 50 MG/ML 1 ML VIAL IVP PRN ×3 (05:01→17:42)
[2022-11-03] MEDS: HYDROmorphone 1 MG/ML 1 ML SYRINGE IVP PRN ×5 (05:02→21:34)
[2022-11-03] MEDS ORDERED: fentaNYL (PF) 50 MCG/ML 2 ML AMP ONE (08:27)
[2022-11-03] MEDS ORDERED: BENZOCAINE SPRAY 1 CAN TOPICAL ONE (08:49)
[2022-11-03] MEDS ORDERED: MIDAZOLAM 2 MG/2 ML VIAL IV ONE (08:49)
[2022-11-03] MEDS ORDERED: fentaNYL (PF) 50 MCG/ML 2 ML AMP IV ONE (08:49)
[2022-11-03] MEDS ORDERED: SODIUM CHLORIDE 0.9% 1,000 ML IV ONE (08:52)
--- NOTE | 2022-11-03 09:01 | P.PCN ---
Date of Procedure: 11/03/22 Description of Procedure: Indication: Evaluation of tricuspid valve Procedure Description: After explaining the procedure to the patient, it's risk and complications, blood pressure, heart rate and O2 saturation were monitored. The throat was sprayed with Cetacaine. Patient received 3 mg intravenous Versed, 50 mcg intravenous fentanyl. The probe was introduced into the esophagus without difficulty. Images were obtained. Following that, the probe was removed. There was no immediate complication. Findings: Left atrial size is normal, left ventricular size and systolic function are normal. A bioprosthetic tricuspid valve was noted with normal functioning and no evidence of vegetations. A wire was noted in the right ventricle. The aortic valve, mitral valve and tricuspid valve appears to be normal. Descending thoracic aorta appears to be normal. No pericardial effusion was noted. Contrast bubble study revealed no shunting across the intra-atrial septum. Doppler: Pulse wave and color Doppler were obtained, and showed mild mitral regurgitation with trace tricuspid regurgitation. There was no shunting by color Doppler study. Conclusion: 1. Normal left ventricle size and systolic function 2. Bioprosthetic tricuspid valve with normal appearance and no evidence of vegetations 3. Mild tricuspid regurgitation 4. A wire was noted in the right ventricle 5. No pericardial effusion
[2022-11-03] MEDS: SPIRONOLACTONE 25 MG TAB PO SCH ×3 (10:12→21:29)
[2022-11-03] MEDS: SERTRALINE 100 MG TAB PO SCH (10:12)
[2022-11-03] MEDS: APIXABAN 5 MG TAB PO SCH ×2 (10:13→21:31)
[2022-11-03] MEDS: POTASSIUM CHLORIDE ER 20 MEQ TAB.ER PO SCH ×2 (10:13→21:35)
[2022-11-03] MEDS: PANTOPRAZOLE 40 MG TABLET PO SCH (10:13)
[2022-11-03] MEDS: GABAPENTIN 300 MG CAP PO SCH ×4 (10:13→21:31)
[2022-11-03] MEDS: CEFEPIME 2 GM in SODIUM CHLORIDE 0.9% 100 ML IVPB SCH ×2 (10:13→21:32)
[2022-11-03] MEDS: busPIRone HCl 5 MG TAB PO SCH ×2 (10:13→21:31)
[2022-11-03] MEDS: BUMETANIDE 1 MG TAB PO SCH ×2 (10:15→21:32)
[2022-11-03] MEDS: FLUDROCORTISONE 0.1 MG TAB PO SCH (10:15)
[2022-11-03] MEDS: NYSTATIN 100,000 UNIT/GM POWD 15 GM TOPICAL SCH ×2 (10:16→21:33)
[2022-11-03] MEDS: NYSTATIN 100,000 UNIT/ML SUSP 500,000 UNIT/5 ML CUP PO SCH ×3 (10:16→17:42)
[2022-11-03] MEDS: MAG HYDROX/AL HYDROX/SIMETH 30 ML, diphenhydrAMINE ELIXIR 75 MG, LIDOCAINE VISCOUS 2% 3... PO SCH ×12 (10:16→21:33)
[2022-11-03] MEDS: ZONISAMIDE 100 MG CAP PO SCH ×2 (10:17→21:32)
--- NOTE | 2022-11-03 11:11 | P.CNNES ---
History of Present Illness Consult date: 11/03/22 Requesting physician: Nikolas Pal Reason for Consult: seizure History of Present Illness: This is a 57-year-old woman with history of nonepileptic seizure and had extensive workup at [facility], history of traumatic brain injury in 2007, posttraumatic migraine and receives Botox, chronic back pain, lupus, bacterial e ndocarditis, pulmonary embolism, permanent pacemaker secondary due to complete heart block, antiphospholipid antibody and is on eliquis, multiple other medical issues as well as polypharmacy who presented because of low-grade fever. Seems to the patient the was recently admitted to [facility] for bacteremia and was discharged 3 days prior to presenting to our facility. Neurology is consulted for possible breakthrough seizure. Patient is known to our neurology team. She stated that yesterday she had a migraine episode and the headache was over the frontal region and the was in the severe pain and she had she felt nauseous no vomiting she had photophobia photophobia. Then and she felt the seizure was about to come but could not tell describe to me what transpired after that. Upon asking her if she lost consciousness of not she said I felt a seizure was about to come and I had the seizure could not describe it to me. Upon asking the nursing staff, the nurse's aid stated that she witnessed the episode and the patient the was having nonrhythmic shaking of extremities and was moving her hands over her eyes back and forth and was awake during the episode. Patient states she has seizures when she has migraine and the episode have been the once a month. She stated that she had a recent the EEG at [facility] a few weeks ago and thinks was normal but unsure. She is on zonisamide 100 mg 1 tablet twice a day. She is on gabapentin 600 mg 1 tablet 4 times a day for chronic pain. Patient states that she follows up with a neurologist over at [place] where she is to reside and that has a common up appointment on November 15, 2022. She states she gets Botox once every 3 month, IM that Benadryl and Ubrevly which helps with Migraine. She was stopped off of Topamax since it was a given her metabolic derangement. She feels the seizure has been improving since the control of her migraines. Please refer to our previous notes for further details. Review of Systems Review of system: The 12 point system was reviewed and apparent positive and negative per HPI. 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 for low K+ History of Any Multi-Drug Resistant Organisms: C-DIFF Date of last positivie culture/infection: 2021 MDRO Source:: Stool Past Surgical History: Back Surgery, Breast Surgery, Cardiac Valve Replacement, Section, Cholecystectomy, Heart Catheterization, Hysterectomy, Pacemaker Additional Past Surgical History / Comment(s): pacemaker d/t bradycardia/hypotension with last one place in 2013 in [place], [place], 3 lower back surgeries, bilateral breast reduction. 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 She is independent. Smoking Status: Former smoker Past Alcohol Use History: None Reported Past Drug Use History: Marijuana Additional Drug Use History / Comment(s): Marijuana use prn per pt. - Past Family History Mother Additional Family Medical History / Comment(s): Mother at the age of 49 yrs after surgery for silicon breast implants with a leak that caused ARDS and DIC per pt Father Family Medical History: Cancer, Hyperlipidemia, Hypertension Additional Family Medical History / Comment(s): Father is a colon cancer survivor. Medications and Allergies Home Medications Medication Instructions Recorded Confirmed Type Atorvastatin [Lipitor] 40 mg PO HS 09/24/21 10/29/22 History Cholestyramine (with Sugar) 4 gm PO DAILY PRN 09/24/21 10/29/22 History [Cholestyramine Packet] Gabapentin 600 mg PO QID 09/24/21 10/29/22 History Sertraline [Zoloft] 200 mg PO DAILY 09/24/21 10/29/22 History Ubrogepant [Ubrelvy] 100 mg PO BID PRN 09/24/21 10/29/22 History rOPINIRole HCL [Requip] 2 mg PO HS 09/24/21 10/29/22 History Budesonide/Glycopyr/Formoterol 1 puff INHALATION RT-BID 03/16/22 10/29/22 History [Breztri Aerosphere Inhaler] Esomeprazole Magnesium [NexIUM] 40 mg PO DAILY 03/16/22 10/29/22 History Botox 200unit Injection 1 dose INJ Q84D 04/02/22 10/29/22 History Meclizine [Antivert] 12.5 mg PO Q8H PRN 04/02/22 10/29/22 History Diphenhydramine 50mg/Ml Vial 50 mg IM Q6H PRN 04/18/22 10/29/22 History Dicyclomine [Bentyl] 20 mg PO TID PRN #30 tablet 04/30/22 10/29/22 Rx Ondansetron Odt [Zofran ODT] 4 mg PO Q8HR PRN #12 tab 04/30/22 10/29/22 Rx Apixaban [Eliquis] 5 mg PO BID 05/29/22 10/29/22 History Spironolactone [Aldactone] 50 mg PO TID 06/11/22 10/29/22 History busPIRone HCl [Buspar] 5 mg PO BID 06/11/22 10/29/22 History Bumetanide [BUMEX] 2 mg PO DAILY 06/24/22 10/29/22 History Zonisamide [Zonegran] 100 mg PO Q12HR 30 Days #60 cap 07/26/22 10/29/22 Rx Bumetanide [BUMEX] 1 mg PO HS 08/26/22 10/29/22 History Lidocaine 5% Patch [Lidoderm 5% 1 patch TRANSDERM DAILY PRN 08/26/22 10/29/22 History Patch] Fludrocortisone [Florinef] 0.1 mg PO DAILY 09/20/22 10/29/22 History Cyclobenzaprine [Flexeril] 10 mg PO TID 09/22/22 10/29/22 History HYDROcodone/APAP 7.5-325MG [[place] 1 tab PO TID PRN 10/29/22 10/29/22 History 7.5-325] Levofloxacin [Levaquin] 500 mg PO DAILY 10/29/22 10/29/22 History Metoprolol Succinate (ER) [Toprol 25 mg PO DAILY PRN 10/29/22 10/29/22 History XL] Midodrine [ProAmatine] 5 mg PO TID PRN 10/29/22 10/29/22 History Potassium Chloride ER [K-Dur 20] 40 meq PO BID 10/29/22 10/29/22 History predniSONE See Taper PO DIRECTED 10/29/22 10/29/22 History Allergies Allergy/AdvReac Type Severity Reaction Status Date / Time Penicillins Allergy Severe Anaphylaxis Verified 10/29/22 08:17 vancomycin Allergy Severe Swelling Verified 10/29/22 08:17 in lips clindamycin Allergy Anaphylaxis Verified 10/29/22 08:17 dexamethasone [From Decadron] Allergy Unknown Verified 10/29/22 08:17 Influenza Virus Vaccines Allergy Unknown Verified 10/29/22 08:17 latex Allergy Unknown Verified 10/29/22 08:17 morphine Allergy Unknown Verified 10/29/22 08:17 prochlorperazine Allergy Unknown Verified 10/29/22 08:17 [From Compazine] [id number] AdvReac Confusion, Verified 10/29/22 08:17 [From Emgality Pen] increased blood pressure metoclopramide [From Reglan] AdvReac "felt like Verified 10/29/22 08:17 I needed to jump out of my skin" Physical Examination - Vital Signs Vital Signs: Vital Signs Temp Pulse Pulse Pulse Resp BP Pulse Ox 11/03/22 09:16 98.3 F 69 15 116/68 97 11/03/22 08:55 70 16 132/99 100 11/03/22 08:50 70 16 140/99 100 11/03/22 08:46 70 20 139/81 99 11/03/22 08:00 75 11/03/22 07:49 74 11/03/22 07:42 98.0 F 69 16 128/83 99 11/03/22 02:36 98.3 F 78 16 121/71 97 11/02/22 20:50 75 11/02/22 20:39 72 11/02/22 20:05 98.5 F 75 18 112/63 100 11/02/22 20:00 18 11/02/22 16:17 75 11/02/22 16:08 74 11/02/22 11:48 98.3 F 93 16 152/88 95 Intake and Output 11/02/22 11/03/22 11/03/22 22:59 06:59 14:59 Intake Total 540 50 Balance 540 50 Intake: IV 50 Oral 540 Other: Voiding Method Toilet # Voids 4 3 # Bowel Movements 1 Weight 75.5 kg GENERAL: The patient is lying in bed and is not in acute distress. NEUROLOGICAL: Higher mental function: The patient is awake, alert, oriented to self, place and time. Patient is following commands. No aphasia and no neglect. Cranial nerves: The pupils are round, equal and reactive to light and accommodation. Visual pierce are full to confrontation throughout. Extraocular movement is intact no nystagmus is noted. Facial sensation is normal to touch throughout. The facial strength is normal throughout. Hearing is normal bilaterally to hand rub. Tongue is midline and moved [id number] without any difficulty. No dysarthria is noted. Shoulder shrug is normal bilaterally. Motor: The strength is 5 over 5 throughout. Normal tone and bulk. Cerebellum: Normal finger to nose heel to bridges bilaterally. Sensation: Sensation is normal to touch throughout. Plantars are downgoing bilaterally. Results - Laboratory Findings CBC and BMP: 10/31/22 07:05 10/31/22 06:47 Abnormal Lab Findings: Abnormal Labs 10/28/22 10/28/22 10/29/22 22:37 22:37 01:00 WBC 10.8 H RBC Hgb Hct MCHC Neutrophils # 8.6 H Lymphocytes # ESR Potassium 3.4 L BUN 22 H Creatinine 1.49 H Est GFR (CKD-EPI) Glucose 107 H Calcium Total Bilirubin C-Reactive Protein 1.7 H Total Protein Albumin Procalcitonin Ur Leukocyte Esterase Urine Mucus 10/29/22 10/30/22 10/30/22 10:15 05:15 05:29 WBC RBC 3.45 L Hgb 9.7 L Hct 31.9 L MCHC 30.4 L Neutrophils # Lymphocytes # 0.83 L ESR Potassium BUN Creatinine Est GFR (CKD-EPI) 58 L Glucose Calcium 8.0 L Total Bilirubin <0.2 L C-Reactive Protein Total Protein 5.3 L Albumin 3.4 L Procalcitonin Ur Leukocyte Esterase Trace H Urine Mucus Rare H 10/31/22 10/31/22 10/31/22 06:47 06:47 07:05 WBC 11.45 H RBC Hgb 11.8 L Hct MCHC 30.8 L Neutrophils # 9.70 H Lymphocytes # ESR 39 H Potassium BUN 20 H Creatinine 1.44 H Est GFR (CKD-EPI) Glucose Calcium Total Bilirubin C-Reactive Protein 4.1 H Total Protein Albumin Procalcitonin 0.18 H Ur Leukocyte Esterase Urine Mucus Assessment and Plan Assessment: ?break-thru seizure due to migrain. Unsure if truly had seizure vs her typical non-epileptic seizure. History of nonepileptic seizure and had extensive workup at [facility]. Also had multiple visit to our facility History of traumatic brain injury in 2007 Posttraumatic migraine and receives Botox Chronic back pain History of lupus History of bacterial endocarditiswith hx of tricuspid valvle replacement History of pulmonary embolism Permanent pacemaker secondary due to complete heart block History of antiphospholipid antibody and is on eliquis History of pyoderma ganngernosum Chronic renal insufficiency. Polypharmacy Anxiety Depression PTSD Plan: I ordered a routine EEG but the patient refused and stated that she just had a recent EEG a few weeks ago at [facility]. She stated that she has nonepileptic seizure and refuses to have her medication modified. She was to continue her same medication O's on a semi-100 mg 1 tablet twice a day. She does not want her migraine medication to be modified. She is on seizure precaution seizure pads. I highly recommended the patient to follow-up with the her neurologist over at [place] which she has an appointment in 11/15/2022 which she she stated that he manage her migraines and seizures. Notified her that she can see someone the locally. Per [place] DMV because of the seizure, to avoid driving for 6 month until Z seizure-free, to avoid swimming unassisted, avoid [place] or using heavy machinery. We'll defer the rest of the management to the primary and other specialists. There is no further neurological workup. Please notify neurology team of any further concerns. The plan was discussed with the patient and her nurses who is at bedside. Thank you for the consultation Time with Patient: Greater than 30
[2022-11-03] MEDS: SODIUM CHLORIDE 0.9% 1,000 ML IV SCH (11:42)
[2022-11-03] MEDS: ACETAMINOPHEN TAB 325 MG TAB PO PRN (15:00)
[2022-11-03] MEDS: ATORVASTATIN 40 MG TAB PO SCH (21:31)
[2022-11-03] MEDS: LIDOCAINE 5% PATCH TOPICAL PRN (21:47)
--- NOTE | 2022-11-03 21:53 | P.PN ---
Progress Note - Text Progress Note Date: 11/03/22 Hospital course: I'm rounding for Dr. Franklin Hassan. Patient is a 57-year-old female with a past medical history significant for seizure disorder pulm embolism antiphospholipid antibody syndrome patient mention she was recently admitted at [facility] with the patient was treated for Serratia marcescens bacteremia, and was discharged on Levaquin with the patient presented back to the hospital complaining of fever and blood cultures had a positive for Serratia marcescens On today's evaluation 10/31/2022, the patient did have a low-grade fever 100.4 this afternoon and the patient mentioned in feeling as good today, she is breathing comfortably on room air denies any chest pain occasional cough some nausea but no vomiting no abdominal pain no diarrhea November 01: Patient is pending PORFIRIO on Tuesday. Appetite is improving. Had a bowel movement. Patient's chronic skin changes from 2012 with pyoderma gangrenosum. Tired. Remains on IV cefepime. November 02: Afebrile. IV cefepime. Pending PORFIRIO tomorrow. WBC whole-body scan showed mild increase in radiotracer activity in the region of the cecum and ascending colon. Also mild uptake right lung. Patient does describe some shortness of breath. November 03: Feeling better. Off oxygen. Discussed with Dr. Luo. No obvious source of infection. PORFIRIO negative. Planning for home antibiotics IV for 2 weeks. Overnight apparently patient had a breakthrough seizure due to migraine. Neurology consulted. Patient's extensive workup at [facility]. Dr. Agarwal ordered EEG but the patient refused that she had a recent overnight [facility]. Per Dr. Miller the patient does not want to medications to be changed. Patient has a follow-up appointment with a neurologist in [place] on October 16. Active Medications Acetaminophen (Acetaminophen Tab 325 Mg Tab) 650 mg PO Q6HR PRN PRN Reason: Mild Pain or Fever > 100.5 Last Admin: 11/03/22 15:00 Dose: 650 mg Hydrocodone Bitart/Acetaminophen (Hydrocodone/Apap 7.5-325mg 1 Each Tab) 1 each PO TID PRN PRN Reason: Pain Last Admin: 11/02/22 19:48 Dose: 1 each Apixaban (Apixaban 5 Mg Tab) 5 mg PO BID ASAD; Protocol Last Admin: 11/03/22 21:31 Dose: 5 mg Atorvastatin Calcium (Atorvastatin 40 Mg Tab) 40 mg PO HS [facility] Last Admin: 11/03/22 21:31 Dose: 40 mg Bisacodyl (Bisacodyl 10 Mg Supp) 10 mg RECTAL DAILY PRN PRN Reason: Constipation Last Admin: 10/30/22 22:52 Dose: 10 mg Budesonide/Formoterol Fumarate (Symbicort 160-4.5 Mcg Inhaler) 1 puff INHALATION RT-BID [facility] Last Admin: 11/03/22 21:13 Dose: Not Given Bumetanide (Bumetanide 1 Mg Tab) 1 mg PO HS [facility] Last Admin: 11/03/22 21:32 Dose: 1 mg Bumetanide (Bumetanide 1 Mg Tab) 2 mg PO DAILY [facility] Last Admin: 11/03/22 10:15 Dose: 2 mg Buspirone HCl (Buspirone Hcl 5 Mg Tab) 5 mg PO BID [facility] Last Admin: 11/03/22 21:31 Dose: 5 mg Al Hydroxide/Mg Hydroxide 30 ml/ Diphenhydramine HCl 75 mg/Lidocaine HCl 30 ml 0 ml PO QID [facility] Last Admin: 11/03/22 21:33 Dose: 5 ml Dicyclomine HCl (Dicyclomine 20 Mg Tab) 20 mg PO TID PRN PRN Reason: Pain Diphenhydramine HCl (Diphenhydramine 50 Mg/Ml 1 Ml Vial) 25 mg IVP Q6HR PRN PRN Reason: Allergy Symptoms Last Admin: 11/03/22 17:42 Dose: 25 mg Fludrocortisone Acetate (Fludrocortisone 0.1 Mg Tab) 0.1 mg PO DAILY [facility] Last Admin: 11/03/22 10:15 Dose: 0.1 mg Gabapentin (Gabapentin 300 Mg Cap) 600 mg PO QID [facility] Last Admin: 11/03/22 21:31 Dose: 600 mg Hydromorphone HCl (Hydromorphone 1 Mg/Ml 1 Ml Syringe) 1 mg IVP Q3HR PRN PRN Reason: Severe Pain (Scale 7 to 10) Last Admin: 11/03/22 21:34 Dose: 1 mg Cefepime HCl 2 gm/ Sodium (Chloride) 100 mls @ 25 mls/hr IVPB Q12HR [facility]; Protocol Last Admin: 11/03/22 21:32 Dose: 25 mls/hr Sodium Chloride (Saline 0.9%) 1,000 mls @ 20 mls/hr IV .Q24H ASAD Last Admin: 11/03/22 11:42 Dose: Not Given Ibuprofen (Ibuprofen 400 Mg Tab) 400 mg PO Q6HR PRN PRN Reason: Mild Pain or Fever > 100.5 Ipratropium [place] (Ipratropium 0.5 Mg/2.5 Ml Nebu) 0.5 mg INHALATION RT-QID ASAD Last Admin: 11/03/22 21:14 Dose: Not Given Lidocaine (Lidocaine 5% Patch) 1 patch TOPICAL DAILY PRN; Protocol PRN Reason: Pain Last Admin: 11/03/22 21:47 Dose: 1 patch Lorazepam (Lorazepam 2 Mg/Ml Inj) 1 mg IV Q4HR PRN PRN Reason: Anxiety Last Admin: 11/02/22 14:57 Dose: 1 mg Meclizine HCl (Meclizine 25 Mg Tab) 12.5 mg PO Q8H PRN PRN Reason: Vertigo Metoprolol Succinate (Metoprolol Succinate (Er) 25 Mg Tab.Er.24h) 25 mg PO DAILY PRN PRN Reason: Blood Pressure - High Midodrine (Midodrine 5 Mg Tab) 5 mg PO TID PRN PRN Reason: Blood Pressure - Low Naloxone HCl (Naloxone 0.4 Mg/Ml 1 Ml Vial) 0.2 mg IV Q2M PRN PRN Reason: Opioid Reversal Nystatin (Nystatin 100,000 Unit/Ml Susp 500,000 Unit/5 Ml Cup) 500,000 unit PO QID [facility]; Protocol Last Admin: 11/03/22 17:42 Dose: 500,000 unit Nystatin (Nystatin 100,000 Unit/Gm Powd 15 Gm) 1 applic TOPICAL BID [facility]; Protocol Last Admin: 11/03/22 21:33 Dose: 1 applic Ondansetron HCl (Ondansetron 4 Mg/2 Ml Vial) 4 mg IVP Q8HR PRN PRN Reason: Nausea And Vomiting Last Admin: 10/31/22 12:52 Dose: 4 mg Ondansetron HCl (Ondansetron Odt 4 Mg Tab) 4 mg PO Q8HR PRN PRN Reason: Nausea Pantoprazole Sodium (Pantoprazole 40 Mg Tablet) 40 mg PO DAILY ASAD Last Admin: 11/03/22 10:13 Dose: 40 mg Potassium Chloride (Potassium Chloride Er 20 Meq Tab.Er) 40 meq PO BID [facility] Last Admin: 11/03/22 21:35 Dose: 40 meq Ropinirole HCl (Ropinirole Hcl 1 Mg Tab) 2 mg PO HS [facility] Last Admin: 11/03/22 21:32 Dose: 2 mg Sertraline HCl (Sertraline 100 Mg Tab) 200 mg PO DAILY [facility] Last Admin: 11/03/22 10:12 Dose: 200 mg Spironolactone (Spironolactone 25 Mg Tab) 50 mg PO TID [facility] Last Admin: 11/03/22 21:29 Dose: 50 mg Zonisamide (Zonisamide 100 Mg Cap) 100 mg PO Q12HR [facility] Last Admin: 11/03/22 21:32 Dose: 100 mg On examination: VITAL SIGNS: 98.3, 69, 15, 116/68, 97% room air GENERAL APPEARANCE: BMI 33.9, comfortable HEENT: Normal external appearance of nose and ear. Oral cavity normal EYES: Pupils equal. Conjunctiva normal. NECK: JVD not raised. Mass not palpable. RESPIRATORY: Respiratory effort normal. Lungs decreased breath sounds CARDIOVASCULAR: First and second sounds normal. No edema. ABDOMEN: Soft. Liver and spleen not palpable. No tenderness. No mass palpable. PSYCHIATRY: Alert and oriented x3. Mood and affect normal. DERMATOLOGICAL: Chronic large annular healed lesions on the extremities INVESTIGATIONS, reviewed in the clinical context: PORFIRIO: Bioprosthetic tricuspid valve. No vegetation. A wire was noted in the right ventricle. WBC scan: Mild uptake in the right lung, mild uptake in the cecum and right colon. ESR 39 C. diff: Negative October 31: White count 11.4 hemoglobin 11.8 platelets 358 potassium 4 BUN 20 creatinine 1.44 procalcitonin 0.18 Assessment and plan: -Persistent bacteremia with Serratia marcescens. No source has been found. Pe nding PORFIRIO tomorrow WBC scan not very affirmative. PORFIRIO unremarkable. Discussed with ID. Probably home with IV antibiotics for 2 weeks. -Questionable breakthrough seizures due to migraine." Clear per neurology patient got nonepileptic seizures. Extensive workup at [facility]. Patient declined EEG per neurology. Traumatic brain injury in 2007. Patient doesn't want to change her seizure medications. Patient is due to follow up with her neurologist in [place] on 11/15/2022. -Antiphospholipid antibody syndrome. Causing multiple PEs. 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 [facility] labs [facility]. Urology consultation noted.
--- NOTE | 2022-11-03 23:09 | P.PN ---
Subjective Progress Note Date: 11/03/22 Principal diagnosis: Bacteremia Patient is a 57-year-old female with a past medical history significant for seizure disorder pulm embolism antiphospholipid antibody syndr ome patient mention she was recently admitted at [facility] with the patient was treated for Serratia marcescens bacteremia, and was discharged on Levaquin with the patient presented back to the hospital complaining of fever and blood cultures had a positive for Serratia marcescens On today's evaluation 11/03/2022, the patient remains to be afebrile patient is breathing comfortably patient denies any chest pain or shortness of breath or cough no nausea vomiting abdominal pain or diarrhea patient did have a PORFIRIO completed this morning that was negative for any vegetation Objective - Vital Signs Vital signs: Vital Signs Temp 98.3 F 11/03/22 09:16 Pulse 69 11/03/22 09:16 Resp 15 11/03/22 09:16 BP 116/68 11/03/22 09:16 Pulse Ox 97 11/03/22 09:16 FiO2 Intake & Output 11/02/22 11/03/22 11/03/22 18:59 06:59 18:59 Intake Total 540 50 Balance 540 50 Weight 75.5 kg Intake: IV 50 Oral 540 Other: Voiding Method Toilet Toilet # Voids 4 3 # Bowel Movements 1 - Exam GENERAL DESCRIPTION: Middle-age female up in bed in no distress RESPIRATORY SYSTEM: Unlabored breathing , decreased breath sounds at bases HEART: S1 S2 regular rate and rhythm , ABDOMEN: Soft , no tenderness EXTREMITIES: No edema feet - Labs CBC & Chem 7: 10/31/22 07:05 10/31/22 06:47 Labs: Microbiology - Last 24 Hours (Table) 11/01/22 06:50 Blood Culture - Preliminary Blood 10/31/22 06:47 Blood Culture - Preliminary Blood Assessment and Plan (1) Bacteremia Current Visit: Yes Status: Acute Code(s): R78.81 - BACTEREMIA SNOMED Code(s): 7095975 Plan: 1patient presented to hospital with fever weakness and chills and this patient apparently recently did have a Serratia marcescens bacteremia with the patient was admitted to the [facility] patient initial work-up has been negative so far chest x-ray did not show any evidence of pneumonia urine has been negative concern for possible abdominal source as the patient have some abdominal pain and constipation 2-patient with a penicillin allergy that will limit the number of antibiotics safe to use 3- CT abdominal pelvis with oral contrast did not show any evidence of abscess, Silt crest was negative for any pneumonia 4-blood culture repeat 10/29/2022 as well as 10/31/2022 so far negative, , WBC scan did show some uptake in the abdomen and lungs however the patient did have CT of abdominal pelvis did not show any acute abnormality and CT of the chest was negative for any pneumonia this was explained to the patient in layman terms 5-Patient PORFIRIO was negative for any vegetation and no evidence of any deep focus of infection she will continue cefepime plan is for 2 weeks of antibiotic and close outpatient follow-up questions concerns answered Time with Patient: Less than 30
[2022-11-04] MEDS: diphenhydrAMINE 50 MG/ML 1 ML VIAL IVP PRN ×3 (00:17→18:17)
[2022-11-04] MEDS: NYSTATIN 100,000 UNIT/ML SUSP 500,000 UNIT/5 ML CUP PO SCH ×5 (03:45→21:10)
[2022-11-04] MEDS: HYDROmorphone 1 MG/ML 1 ML SYRINGE IVP PRN ×2 (06:04→09:15)
[2022-11-04] MEDS: SYMBICORT 160-4.5 MCG INHALER INHALATION SCH ×2 (08:21→21:00)
[2022-11-04] MEDS: IPRATROPIUM 0.5 MG/2.5 ML NEBU INHALATION SCH ×4 (08:21→20:58)
[2022-11-04] MEDS: MAG HYDROX/AL HYDROX/SIMETH 30 ML, diphenhydrAMINE ELIXIR 75 MG, LIDOCAINE VISCOUS 2% 3... PO SCH ×12 (09:14→21:26)
[2022-11-04] MEDS: CEFEPIME 2 GM in SODIUM CHLORIDE 0.9% 100 ML IVPB SCH ×2 (09:14→21:10)
[2022-11-04] MEDS: FLUDROCORTISONE 0.1 MG TAB PO SCH (09:15)
[2022-11-04] MEDS: SPIRONOLACTONE 25 MG TAB PO SCH ×3 (09:15→21:10)
[2022-11-04] MEDS: SERTRALINE 100 MG TAB PO SCH (09:15)
[2022-11-04] MEDS: PANTOPRAZOLE 40 MG TABLET PO SCH (09:15)
[2022-11-04] MEDS: GABAPENTIN 300 MG CAP PO SCH ×4 (09:16→21:11)
[2022-11-04] MEDS: APIXABAN 5 MG TAB PO SCH ×2 (09:16→21:11)
[2022-11-04] MEDS: BUMETANIDE 1 MG TAB PO SCH ×2 (09:16→21:11)
[2022-11-04] MEDS: busPIRone HCl 5 MG TAB PO SCH ×2 (09:16→21:11)
[2022-11-04] MEDS: POTASSIUM CHLORIDE ER 20 MEQ TAB.ER PO SCH ×2 (09:16→21:11)
[2022-11-04] MEDS: ACETAMINOPHEN TAB 325 MG TAB PO PRN ×2 (09:16→21:26)
[2022-11-04] MEDS: ZONISAMIDE 100 MG CAP PO SCH ×2 (09:17→21:10)
[2022-11-04] MEDS: NYSTATIN 100,000 UNIT/GM POWD 15 GM TOPICAL SCH ×2 (10:36→21:14)
[2022-11-04] MEDS: SODIUM CHLORIDE 0.9% 1,000 ML IV SCH (10:36)
--- NOTE | 2022-11-04 11:13 | P.PN ---
Subjective HISTORY OF PRESENT ILLNESS: This is a 57 year old female with a past medical history significant for tricuspid valve repair x 2, bacterial endocarditis, pulmonary embolism, seizure disorder, permanent pacemaker implantation secondary to complete heart block, lupus, antiphospholipid antibody syndrome, and spinal stenosis. Patient follows in the office with Dr. Hanson. We have been asked to see the patient in consultation for PORFIRIO/bacteremia. Patient examined at the bedside. Patient is admitted to the hospital secondary to bacteremia. Blood cultures are positive for Serratia Marcescens. Infectious disease is requesting PORFIRIO to be performed. * EKG reveals sinus mechanism with no signs of acute ischemia * Chest xray chronic changes without evidence for acute pulmonary disease * Laboratory data: WBC 11.45. Hemoglobin 11.8. Platelet count 358. Sodium 130. Potassium 4.0. B UN 20. Creatinine 1.44. * Current home cardiac medications include Eliquis 5mg BID, Lipitor 40 mg at night, Bumex 2 mg the morning and 1 mg in the afternoon, spironolactone 50 mg 3 times a day, metoprolol succinate 25 mg daily as needed * Most recent echocardiogram obtained in May 2022 reveals ejection fraction 55%, mild mitral regurgitation, normally functioning prosthetic tricuspid valve, mild TR. * Patient underwent a Dobutamine stress test in May 2022 which did not reveal evidence of ischemia 11/02/2022 A she examined this morning at the bedside. Patient denies chest pain or pressure. She denies shortness of breath. Patient underwent nuclear WBC body scan yesterday revealing increased radiotracer activity involving the region of the cecum and ascending colon. Correlate for colitis. Increased uptake right lung may reflect underlying infectious pneumonia. 11/04/2022 Patient is status post PORFIRIO yesterday revealing normal left ventricle size and systolic function, bioprosthetic tricuspid valve with normal appearance and no evidence of vegetation, mild tricuspid regurgitation, with wire noted in the right ventricle, no pericardial effusion. PHYSICAL EXAM: VITAL SIGNS: Reviewed. GENERAL: Well-developed in no acute distress. HEENT: Head is normocephalic. Pupils are equal, round. Sclerae anicteric. Mucous membranes of the mouth are moist. Neck supple. No JVD or thyromegaly LUNGS: Respirations even and unlabored. Lungs essentially clear to auscultation bilaterally. HEART: Regular rate and rhythm. S1 and S2 heard. ABDOMEN: Soft. Nondistended. Nontender. EXTREMITIES: Normal range of motion. No clubbing or cyanosis. Peripheral pulses intact. No lower extremity edema NEUROLOGIC: Awake and alert. Oriented x 3. ASSESSMENT: Bacteremia Abnormal nuclear WBC scan showing possible colitis and right lung pneumonia History of permanent pacemaker implantation secondary to complete heart block History of PE Chronic kidney disease History of tricuspid valve repair 2 History of bacterial endocarditis History of seizure disorder Hypertension History of antiphospholipid antibody syndrome Spinal stenosis PLAN: Continue current cardiac medications PORFIRIO completed with no evidence of vegetation Patient is stable from a cardiac standpoint We'll sign off. Please reconsult if needed. Nurse practitioner note has been reviewed by physician. Signing provider agrees with the documented findings, assessment, and plan of care. Objective - Vital Signs Vital signs: Vital Signs Temp 98.8 F 11/04/22 07:20 Pulse 77 11/04/22 07:20 Resp 18 11/04/22 07:20 BP 138/92 11/04/22 07:20 Pulse Ox 97 11/04/22 07:20 FiO2 Intake & Output 11/03/22 11/04/22 11/04/22 18:59 06:59 18:59 Intake Total 50 100 Output Total 1 Balance 50 99 Weight 75.5 kg Intake: IV 50 Intake, IV Titration 100 Amount Cefepime 2 gm In Sodium 100 Chloride 0.9% 100 ml @ 25 mls/hr IVPB Q12HR [facility] Rx #:[id number] Output: Urine 1 Other: Voiding Method Toilet # Voids 1 1 - Labs CBC & Chem 7: 10/31/22 07:05 10/31/22 06:47 Labs: Microbiology - Last 24 Hours (Table) 10/29/22 18:28 Blood Culture - Final Blood 11/03/22 15:00 Gram Stain - Preliminary Abdomen 11/01/22 06:50 Blood Culture - Preliminary Blood 10/31/22 06:47 Blood Culture - Preliminary Blood
[2022-11-04] MEDS: LORazepam 2 MG/ML INJ IV PRN (11:15)
[2022-11-04] MEDS ORDERED: levETIRAcetam IV 1,500 MG in SODIUM CHLORIDE 0.9% 250 ML IVPB ONE (11:28)
[2022-11-04] MEDS ORDERED: LORazepam 2 MG/ML INJ IV STA (11:28)
[2022-11-04] MEDS ORDERED: levETIRAcetam IV 500 MG/5 ML VIAL IVP ONE (11:30)
[2022-11-04 11:33] LABS: Glucose,Whole Blood 89 mg/dL (70-110)
[2022-11-04 12:54] LABS: HCT 32.8 % (34.0-46.0); HGB 10.8 gm/dL (11.4-16.0); Hypochromasia Marked; MCH 30.7 pg (25.0-35.0); Platelet Count 265 k/uL (150-450); RBC 3.52 m/uL (3.80-5.40); RDW 14.3 % (11.5-15.5)
[2022-11-04] MEDS: LACOSAMIDE 50 MG TABLET PO SCH ×2 (13:37→21:26)
[2022-11-04] MEDS: HYDROcodone/APAP 7.5-325MG 1 EACH TAB PO PRN ×2 (13:37→21:26)
[2022-11-04] MEDS: HYDROCORTISONE SUPPOSITORY 25 MG SUPP RECTAL SCH ×2 (13:37→21:10)
[2022-11-04 13:38] LABS: ALT 20 U/L (4-34); AST 28 U/L (14-36); African American GFR (CKD) 51 (>60 ml/min/1.73 sqM); Albumin 4.1 g/dL (3.5-5.0); Albumin/Globulin Ratio 1.4; Alkaline Phosphatase 82 U/L (38-126); Anion Gap 12 mmol/L; Blood Urea Nitrogen 22 mg/dL (7-17); Calcium 9.6 mg/dL (8.4-10.2); Carbon Dioxide 23 mmol/L (22-30); Chloride 101 mmol/L (98-107); Globulin 2.9 g/dL; Glucose 103 mg/dL (74-99); Magnesium 2.2 mg/dL (1.6-2.3); Non-African American GFR(CKD) 45 (>60 ml/min/1.73 sqM); Phosphorus 3.1 mg/dL (2.5-4.5); Sodium 136 mmol/L (137-145); Total Bilirubin 0.5 mg/dL (0.2-1.3)
--- NOTE | 2022-11-04 15:44 | P.PN ---
Subjective Progress Note Date: 11/04/22 Was notified by the nurse that the patient was having seizure-like activity. The episode has been going on for at least 1520 minutes. And she shaking all extremities not rhythmically. Objective - Vital Signs Vital signs: Vital Signs Temp 97.9 F 11/04/22 13:10 Pulse 94 11/04/22 13:10 Resp 18 11/04/22 13:10 BP 123/78 11/04/22 13:10 Pulse Ox 97 11/04/22 13:10 FiO2 Intake & Output 11/03/22 11/04/22 11/04/22 18:59 06:59 18:59 Intake Total 50 100 Output Total 1 Balance 50 99 Weight 75.5 kg Intake: IV 50 Intake, IV Titration 100 Amount Cefepime 2 gm In Sodium 100 Chloride 0.9% 100 ml @ 25 mls/hr IVPB Q12HR [facility] Rx #:[id number] Output: Urine 1 Other: Voiding Method Toilet # Voids 1 1 1 - Exam Neuro: Upon seeing the patient she was having nonrhythmic shaking of all extremities. Her she had her eyes closed and her head turned to the right to open her eyes and she had fixed eye deviation to the right. She has some foaming around the mouth. The episode lasted in total probably 2030 minutes and she was given Ativan and she completely came back to baseline without any post ictal confusion and was seems unusual if the patient had the an episode that prolonged. Patient was responding immediately. - Labs CBC & Chem 7: 11/04/22 11:47 11/04/22 12:59 Labs: Abnormal Lab Results - Last 24 Hours (Table) 11/04/22 11/04/22 Range/Units 11:47 12:59 RBC 3.52 L (3.80-5.40) m/uL Hgb 10.8 L (11.4-16.0) gm/dL Hct 32.8 L (34.0-46.0) % Sodium 136 L (137-145) mmol/L BUN 22 H (7-17) mg/dL Creatinine 1.32 H (0.52-1.04) mg/dL Glucose 103 H (74-99) mg/dL Microbiology - Last 24 Hours (Table) 10/29/22 18:28 Blood Culture - Final Blood 11/03/22 15:00 Gram Stain - Preliminary Abdomen 11/01/22 06:50 Blood Culture - Preliminary Blood 10/31/22 06:47 Blood Culture - Preliminary Blood Assessment and Plan Assessment: ?repeated prolonged seizure-like activity today before noon but seems non- epileptic in nature (she had nonrhythmic shaking of all extremities eyes closed, right gaze deviation and some ?foaming and episode was 20-30 minutes but immediately after receiving Ativan she was back to baseline immediately and responding. Her lactic acid was normal). Has break-thru seizure due to migraine. Unsure if truly had seizure vs her typical non-epileptic seizure. History of nonepileptic seizure and had extensive workup at [facility] and was told nonepileptic seizure. Also had multiple visits to our facility History of traumatic brain injury in 2007 Posttraumatic migraine and receives Botox Chronic back pain History of lupus History of bacterial endocarditiswith hx of tricuspid valvle replacement History of pulmonary embolism Permanent pacemaker secondary due to complete heart block History of antiphospholipid antibody and is on eliquis History of pyoderma ganngernosum Chronic renal insufficiency. Polypharmacy Anxiety Depression PTSD Plan: I ordered a stat EEG. Patient was given 2 mg Ativan and loaded her with Keppra 1500mg one time. In addition to her home dose of Zonisamide 100mg bid, I started on Vimpat 50mg bid. Patient is on gabapentin 600mg 1 tab qid for pain but also considered the a week antiepileptic drug Ordered lactic acid and Prolactin. She does not want her migraine medication to be modified. She is on seizure precaution seizure pads. I feel the patient is on polypharmacy and is opiates. Recommend to avoid opiates or sedatives. Will defer modification of medication to her PCP. Recommend to avoid Buspirone since can lower seizure threshold. I highly recommended the patient to follow-up with the her neurologist over at [place] which she has an appointment in 11/15/2022 which she she stated that he manage her migraines and seizures. Notified her that she can see someone the locally. Per [place] DMV because of the seizure, to avoid driving for 6 month until seizure-free, to avoid swimming unassisted, avoid [place] or using heavy machinery. We'll defer the rest of the management to the primary and other specialists. The plan was discussed with the patient and her nurses who is at bedside. UPDATE: Lactic acid is normal. EEG: Normal. No seizure noted during this study. Consider prolonged EEG or epilepsy monitoring unit as outpatient to rule out any epileptic in addition to nonepileptic seizures. Per nurse, patient is requesting her pain medications after the episode. No further neurological work-up. Please notify neurology team if any further concerns. Time with Patient: Less than 30
[2022-11-04] MEDS: ATORVASTATIN 40 MG TAB PO SCH (21:10)
--- NOTE | 2022-11-04 22:51 | EEG ---
ELECTROENCEPHALOGRAM REPORT HISTORY OF PRESENT ILLNESS: This is a 57-year-old female with history of nonepileptic seizure, who has witnessed seizure-like activity in our facility. The video EEG is obtained to evaluate for seizure epileptiform activity. RELEVANT MEDICATION: Zonisamide and Ativan. EEG TYPE: A routine 21-channel EEG is performed with video using the 10/20 electrode placement system. DESCRIPTION: Wakefulness is only obtained. During awake state, the background consists of low to moderate voltage of 10 to 11 hertz activity. There was no physiological stage 2 sleep architecture. There is no focal slowing. Interictal and ictal are none. ACTIVATION PROCEDURE: Photic stimulation and hyperventilation are not performed. CLINICAL INTERPRETATION: This is a normal routine EEG. There is no focal slowing, epileptiform discharge or seizure on the EEG. A normal routine EEG does not rule out underlying epilepsy. Clinical correlation is recommended. OSMAN / MARITZA: [id number] / MTDD
--- NOTE | 2022-11-05 02:33 | PN ---
PROGRESS NOTE SUBJECTIVE: This is a 57-year-old white female who had an EEG today per Dr. Zhu. She has had pseudoseizure versus seizures. Video EEG was obtained, normal routine EEG. Suspect she has pseudoseizures. Get psych consult. Possible discharge home. She has an ulcer on her left abdomen for which electrode probe was kept under her skin for overnight, so she remains on treatment for this. She had Serratia marcescens in her blood, which appears to be gone, but there is no clue as to where it came from, second time she has had this. Dr. Luo has apparently no idea where it is coming from. White blood cell scale was indeterminate. PORFIRIO shows negative for any vegetation. She is groggy but she appears to be getting better 160/68, temp 98.3, pulse 69, respiratory rate 16 to [address] Labs reviewed[address] abdomen which did not show any abscesses. negative for pneumonia. Blood cultures were negative. She will continue cefepime test for 2 weeks of antibiotics at home. Prognosis is guarded, unclear etiology. Possible abdominal source unclear. Prognosis guarded. MMODL / IJN: [id number] /
[2022-11-05] MEDS: diphenhydrAMINE 50 MG/ML 1 ML VIAL IVP PRN ×3 (02:34→14:14)
[2022-11-05] MEDS: IPRATROPIUM 0.5 MG/2.5 ML NEBU INHALATION SCH ×2 (08:04→11:33)
[2022-11-05] MEDS: SPIRONOLACTONE 25 MG TAB PO SCH (08:35)
[2022-11-05] MEDS: PANTOPRAZOLE 40 MG TABLET PO SCH (08:35)
[2022-11-05] MEDS: POTASSIUM CHLORIDE ER 20 MEQ TAB.ER PO SCH (08:35)
[2022-11-05] MEDS: HYDROcodone/APAP 7.5-325MG 1 EACH TAB PO PRN (08:35)
[2022-11-05] MEDS: APIXABAN 5 MG TAB PO SCH (08:35)
[2022-11-05] MEDS: CEFEPIME 2 GM in SODIUM CHLORIDE 0.9% 100 ML IVPB SCH (08:36)
[2022-11-05] MEDS: busPIRone HCl 5 MG TAB PO SCH (08:36)
[2022-11-05] MEDS: GABAPENTIN 300 MG CAP PO SCH ×2 (08:36→14:14)
[2022-11-05] MEDS: LACOSAMIDE 50 MG TABLET PO SCH (08:36)
[2022-11-05] MEDS: SERTRALINE 100 MG TAB PO SCH (08:36)
[2022-11-05] MEDS: NYSTATIN 100,000 UNIT/ML SUSP 500,000 UNIT/5 ML CUP PO SCH ×2 (08:38→14:23)
[2022-11-05] MEDS: BUMETANIDE 1 MG TAB PO SCH (08:38)
[2022-11-05] MEDS: HYDROCORTISONE SUPPOSITORY 25 MG SUPP RECTAL SCH (08:38)
[2022-11-05] MEDS: FLUDROCORTISONE 0.1 MG TAB PO SCH (08:38)
[2022-11-05] MEDS: ZONISAMIDE 100 MG CAP PO SCH (08:39)
[2022-11-05] MEDS: NYSTATIN 100,000 UNIT/GM POWD 15 GM TOPICAL SCH (08:39)
[2022-11-05] MEDS: MAG HYDROX/AL HYDROX/SIMETH 30 ML, diphenhydrAMINE ELIXIR 75 MG, LIDOCAINE VISCOUS 2% 3... PO SCH ×6 (08:40→14:23)
[2022-11-05 09:39] VITALS: BMI 32.0
[2022-11-05] MEDS: SODIUM CHLORIDE 0.9% 1,000 ML IV SCH (10:04)
[2022-11-05 14:28] VITALS: RESP 15
[2022-11-05 14:30] VITALS: BP 122/84; PULSE 90; TEMP 99.4
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
== END 2022-11-05 14:50 | disposition home or self-care (01) | DRG 868 ==
LOC: EC 22:02 → 5NMEDONC 10-29 02:05
PROVIDERS: ADMIT Family Medicine; ATTEND Family Medicine
DX: B99.8 Other infectious disease (principal); D68.61 Antiphospholipid syndrome; R78.81 Bacteremia; I44.2 Atrioventricular block, complete; E23.0 Hypopituitarism; L88 Pyoderma gangrenosum; G40.89 Other seizures; Z22.39 Carrier of other specified bacterial diseases; R50.81 Fever presenting with conditions classified elsewhere; M32.9 Systemic lupus erythematosus, unspecified; I12.9 Hypertensive chronic kidney disease with stage 1 through stage 4 chronic kidney disease, or unspecified chronic kidney disease; G25.81 Restless legs syndrome; N18.30 Chronic kidney disease, stage 3 unspecified; F32.A Depression, unspecified; B96.89 Other specified bacterial agents as the cause of diseases classified elsewhere; E86.0 Dehydration; G89.29 Other chronic pain; M54.9 Dorsalgia, unspecified; G43.809 Other migraine, not intractable, without status migrainosus; F43.10 Post-traumatic stress disorder, unspecified; R10.9 Unspecified abdominal pain; M48.00 Spinal stenosis, site unspecified; I25.10 Atherosclerotic heart disease of native coronary artery without angina pectoris; E87.6 Hypokalemia; Z20.822 Contact with and (suspected) exposure to COVID-19; Z95.3 Presence of xenogenic heart valve; Z87.820 Personal history of traumatic brain injury; Z86.711 Personal history of pulmonary embolism; Z86.79 Personal history of other diseases of the circulatory system; Z79.01 Long term (current) use of anticoagulants; Z87.891 Personal history of nicotine dependence; Z95.0 Presence of cardiac pacemaker; Z79.899 Other long term (current) drug therapy; Z79.51 Long term (current) use of inhaled steroids; Z79.52 Long term (current) use of systemic steroids; Z88.0 Allergy status to penicillin; Z88.1 Allergy status to other antibiotic agents; Z88.7 Allergy status to serum and vaccine; Z91.040 Latex allergy status; Z88.5 Allergy status to narcotic agent; Z88.8 Allergy status to other drugs, medicaments and biological substances; Z86.718 Personal history of other venous thrombosis and embolism; Z82.49 Family history of ischemic heart disease and other diseases of the circulatory system; Z80.0 Family history of malignant neoplasm of digestive organs
CPT/HCPCS: 36415; 71045; 71250; 74176; 78306; 80053; 81001; 83605; 83690; 83735; 84100; 84145; 84146; 84484; 85025; 85027; 85610; 85652; 85730; 86140; 87040; 87070; 87077; 87186; 87205; 87324; 87636; 93005; 93312; 93320; 93325; 94640; 94760; 95819; 96361; 96365; 96366; 96375; 96376; 99285

== ENCOUNTER 2022-11-10 14:06 | Emergency (ER) | payer BC, MEDICARE ==
[2022-11-10 14:19] VITALS: TEMP 98.8
--- NOTE | 2022-11-10 15:27 | ED ---
SOB HPI - General Source: patient, RN notes reviewed Mode of arrival: ambulatory Limitations: no limitations <Carly Melendez - Last Filed: 11/10/22 15:27> <Angel Valdez - Last Filed: 11/10/22 21:02> - General Chief Complaint: Shortness of Breath Stated Complaint: Low potassium,sob-sent by home care nurse Time Seen by Provider: 11/10/22 15:26 - History of Present Illness Initial Comments: Patient is a 57-year-old female who presents the emergency department for shortness of breath and low potassium. (Carly Melendez) This a 57-year-old female presents emergency department with past medical history significant for lupus as well as PEs 6 even on blood thinners and is recently being treated for bacteremia at home. Patient comes in today because she is feeling weak feeling her muscles cramp up and she believes this is normally in the past been due to low potassium and she's also been somewhat short of breath. Patient is concerned about that because she is on eliquis but she has had breakthrough PEs even on anticoagulants. She denies any chest pain or palpitations. Patient denies any fever chills or cough. Patient denies any abdominal pain patient is not vomiting or diarrhea. Patient was sent in by her primary medical care doctor (Angel Valdez) - Related Data Home Medications Medication Instructions Recorded Confirmed Atorvastatin [Lipitor] 40 mg PO HS 09/24/21 10/29/22 Cholestyramine (with Sugar) 4 gm PO DAILY PRN 09/24/21 10/29/22 [Cholestyramine Packet] Gabapentin 600 mg PO QID 09/24/21 10/29/22 Sertraline [Zoloft] 200 mg PO DAILY 09/24/21 10/29/22 Ubrogepant [Ubrelvy] 100 mg PO BID PRN 09/24/21 10/29/22 rOPINIRole HCL [Requip] 2 mg PO HS 09/24/21 10/29/22 Budesonide/Glycopyr/Formoterol 1 puff INHALATION RT-BID 03/16/22 10/29/22 [Breztri Aerosphere Inhaler] Esomeprazole Magnesium [NexIUM] 40 mg PO DAILY 03/16/22 10/29/22 Botox 200unit Injection 1 dose INJ Q84D 04/02/22 10/29/22 Meclizine [Antivert] 12.5 mg PO Q8H PRN 04/02/22 10/29/22 Diphenhydramine 50mg/Ml Vial 50 mg IM Q6H PRN 04/18/22 10/29/22 Apixaban [Eliquis] 5 mg PO BID 05/29/22 10/29/22 Spironolactone [Aldactone] 50 mg PO TID 06/11/22 10/29/22 busPIRone HCl [Buspar] 5 mg PO BID 06/11/22 10/29/22 Bumetanide [BUMEX] 2 mg PO DAILY 06/24/22 10/29/22 Bumetanide [BUMEX] 1 mg PO HS 08/26/22 10/29/22 Lidocaine 5% Patch [Lidoderm 5% 1 patch TRANSDERM DAILY PRN 08/26/22 10/29/22 Patch] Fludrocortisone [Florinef] 0.1 mg PO DAILY 09/20/22 10/29/22 HYDROcodone/APAP 7.5-325MG [[place] 1 tab PO TID PRN 10/29/22 10/29/22 7.5-325] Metoprolol Succinate (ER) [Toprol 25 mg PO DAILY PRN 10/29/22 10/29/22 XL] Midodrine [ProAmatine] 5 mg PO TID PRN 10/29/22 10/29/22 Potassium Chloride ER [K-Dur 20] 40 meq PO BID 10/29/22 10/29/22 predniSONE See Taper PO DIRECTED 10/29/22 10/29/22 Previous Rx's Medication Instructions Recorded Dicyclomine [Bentyl] 20 mg PO TID PRN #30 tablet 04/30/22 Ondansetron Odt [Zofran ODT] 4 mg PO Q8HR PRN #12 tab 04/30/22 Zonisamide [Zonegran] 100 mg PO Q12HR 30 Days #60 cap 07/26/22 Cefepime [Maxipime] 2 gm IVPB Q12HR 10 Days #20 each 11/05/22 Ibuprofen [Motrin] 400 mg PO Q6HR PRN tab 11/05/22 Lacosamide [Vimpat] 50 mg PO BID tab 11/05/22 Nystatin 100,000 Unit/gm Powd 1 applic TOPICAL BID 60 Days #60 11/05/22 [Mycostatin Powder] each Nystatin 100,000 Unit/ml Susp 500,000 unit PO QID 30 Days #300 ml 11/05/22 [Mycostatin Oral Susp] Allergies Allergy/AdvReac Type Severity Reaction Status Date / Time Penicillins Allergy Severe Anaphylaxis Verified 11/10/22 14:20 vancomycin Allergy Severe Swelling Verified 11/10/22 14:20 in lips clindamycin Allergy Anaphylaxis Verified 11/10/22 14:20 dexamethasone [From Decadron] Allergy Unknown Verified 11/10/22 14:20 Influenza Virus Vaccines Allergy Unknown Verified 11/10/22 14:20 latex Allergy Unknown Verified 11/10/22 14:20 morphine Allergy Unknown Verified 11/10/22 14:20 prochlorperazine Allergy Unknown Verified 11/10/22 14:20 [From Compazine] galcanezumab-gnlm AdvReac Confusion, Verified 11/10/22 14:20 [From Emgality Pen] increased blood pressure metoclopramide [From Reglan] AdvReac "felt like Verified 11/10/22 14:20 I needed to jump out of my skin" Review of Systems ROS Other: All systems not noted in ROS Statement are negative. <Carly Melendez - Last Filed: 11/10/22 15:27> ROS Other: All systems not noted in ROS Statement are negative. <Angel Valdez - Last Filed: 11/10/22 21:02> ROS Statement: Those systems with pertinent positive or pertinent negative responses have been documented in the HPI. 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 for low K+ History of Any Multi-Drug Resistant Organisms: C-DIFF Date of last positivie culture/infection: 2021 MDRO Source:: Stool Past Surgical History: Back Surgery, Breast Surgery, Cardiac Valve Replacement, Section, Cholecystectomy, Heart Catheterization, Hysterectomy, Pacemaker Additional Past Surgical History / Comment(s): pacemaker d/t bradycardia/hypotension with last one place in 2013 in [place], [place], 3 lower back surgeries, bilateral breast reduction. 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 Past Anesthesia/Blood Transfusion Reactions: No Reported Reaction Type of Cardiac Device: Permanent Pacemaker, Unknown Device Placement Date:: 2012 Past Psychological History: Anxiety Smoking Status: Never smoker Past Alcohol Use History: None Reported Past Drug Use History: Marijuana - Past Family History Mother Additional Family Medical History / Comment(s): Mother at the age of 49 yrs after surgery for silicon breast implants with a leak that caused ARDS and DIC per pt Father Family Medical History: Cancer, Hyperlipidemia, Hypertension Additional Family Medical History / Comment(s): Father is a colon cancer survivor. <Carly Melendez - Last Filed: 11/10/22 15:27> General Exam Limitations: no limitations <Carly Melendez - Last Filed: 11/10/22 15:27> <Angel Valdez - Last Filed: 11/10/22 21:02> - General Exam Comments Initial Comments: Visual Physical Exam Vital signs reviewed General: Well-appearing, nontoxic, no acute distress. Head: Normocephalic, atraumatic Eyes: PERRLA, EOMI ENT: Airway patent Chest: Nonlabored breathing Skin: No visual rash, normal skin tone Neuro: Alert and oriented 3 Musculoskeletal: No gross abnormalities (Carly Melendez) GENERAL: Patient is well-developed and well-nourished. Patient is nontoxic and well- hydrated and is in mild distress. ENT: Neck is soft and supple. No significant lymphadenopathy is noted. Oropharynx is clear. Moist mucous membranes. Neck has full range of motion without eliciting any pain. EYES: The sclera were anicteric and conjunctiva were pink and moist. Extraocular movements were intact and pupils were equal round and reactive to light. Eyelids were unremarkable. PULMONARY: Unlabored respirations. Good breath sounds bilaterally. No audible rales rhonchi or wheezing was noted. CARDIOVASCULAR: There is a regular rate and rhythm without any murmurs gallops or rubs. ABDOMEN: Soft and nontender with normal bowel sounds. SKIN: Skin is clear with no lesions or rashes and otherwise unremarkable. NEUROLOGIC: Patient is alert and oriented x3. Cranial nerves II through XII are grossly intact. Motor and sensory are also intact. Normal speech, volume and content. Symmetrical smile. MUSCULOSKELETAL: Normal extremities with adequate strength and full range of motion. LYMPHATICS: No significant lymphadenopathy is noted PSYCHIATRIC: Normal psychiatric evaluation. (Angel Valdez) Course Vital Signs 11/10/22 11/10/22 14:12 17:04 Temperature 98.8 F Pulse Rate 92 86 Respiratory 21 18 Rate Blood Pressure 128/62 127/75 O2 Sat by Pulse 98 97 Oximetry Medical Decision Making - Lab Data Result diagrams: 11/10/22 16:59 11/10/22 16:59 <Angel Valdez - Last Filed: 11/10/22 21:02> - Medical Decision Making EKG was interpreted by myself shows a sinus rhythm at 80 bpm [place] interval 113 QRS is 84 QT interval 372 QTC is 408. Patient's EKG shows no ST segment elevation or depression Was pt. sent in by a medical professional or institution (, PA, SPAR MACHINE OPERATOR HELPER, urgent care, hospital, or shelter...) When possible be specific @ -No Did you speak to anyone other than the patient for history (EMS, parent, family, police, friend...)? What history was obtained from this source @ -No Did you review nursing and triage notes (agree or disagree)? Why? @ -I reviewed and agree with nursing and triage notes Were old charts reviewed (outside hosp., previous admission, EMS record, old EKG, old radiological studies, urgent care reports/EKG's, shelter records)? Report findings @ -No old charts were reviewed Differential Diagnosis (chest pain, altered mental status, abdominal pain women, abdominal pain men, vaginal bleeding, weakness, fever, dyspnea, syncope, headache, dizziness, GI bleed, back pain, seizure, CVA, palpatations, mental health, musculoskeletal)? @ -Differential Weakness: Hypoglycemia, shock, sepsis, hyponatremia, anemia, infection, DC, ETOH, adverse medicine reaction, overdose, stroke, this is not meant to be an all-inclusive list. EKG interpreted by me (3pts min.). @ -As above X-rays interpreted by me (1pt min.). @ -Chest x-ray shows no acute abnormality CT interpreted by me (1pt min.). @ -None done U/S interpreted by me (1pt. min.). @ -None done What testing was considered but not performed or refused? (CT, X-rays, U/S, labs)? Why? @ -None What meds were considered but not given or refused? Why? @ -None Did you discuss the management of the patient with other professionals ( professionals i.e. DrMaria Teresa, PA, SPAR MACHINE OPERATOR HELPER, lab, RT, psych nurse, social work associate, marine surveyor, teacher, loan servicing officer, bottle caser)? Give summary @ -No Was smoking cessation discussed for >3mins.? @ -No Was critical care preformed (if so, how long)? @ -No Were there social determinants of health that impacted care today? How? (Homelessness, low income, unemployed, alcoholism, drug addiction, transpo rtation, low edu. Level, literacy, decrease access to med. care, snf, rehab)? @ -No Was there de-escalation of care discussed even if they declined (Discuss DNR or withdrawal of care, Hospice)? DNR status @ -No What co-morbidities impacted this encounter? (DM, HTN, Smoking, COPD, CAD, Cancer, CVA, ARF, Chemo, Hep., AIDS, mental health diagnosis, sleep apnea, morbid obesity)? @ -None Was patient admitted / discharged? Hospital course, mention meds given and route, prescriptions, significant lab abnormalities, going to OR and other pertinent info. @ -Back into reevaluate the patient she was feeling a bit better. 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 Patient states she doesn't feel that it is necessary to stand the hospital and that she can monitor herself quite effectively at home and if she needs come back and she will. Patient will get a liter of normal saline and be discharged home. Patient thinks her symptoms are related to the antibiotic and she will hold off giving herself is in about a can follow-up with Dr. Hassan tomorrow morning and already prescheduled appointment. Admission was offered to the patient but she wanted to go home and follow-up with Dr. Hassan tomorrow Undiagnosed new problem with uncertain prognosis? @ -No Drug Therapy requiring intensive monitoring for toxicity (Heparin, Nitro, Insulin, Cardizem)? @ -No Were any procedures done? @ -No Diagnosis/symptom? @ -Weakness Acute, or Chronic, or Acute on Chronic? @ -Acute Uncomplicated (without systemic symptoms) or Complicated (systemic symptoms)? @ -Complicated Side effects of treatment? @ -No Exacerbation, Progression, or Severe Exacerbation? @ -No Poses a threat to life or bodily function? How? (Chest pain, [place], DC, pneumonia, PE, COPD, DKA, ARF, appy, cholecystitis, CVA, Diverticulitis, Homicidal, Suicidal, threat to staff... and all critical care pts) @ -No Diagnosis/symptom? @ -Adverse med reaction Acute, or Chronic, or Acute on Chronic? @ -Acute Uncomplicated (without systemic symptoms) or Complicated (systemic symptoms)? @ -Complicated Side effects of treatment? @ -none Exacerbation, Progression, or Severe Exacerbation] @ -no Poses a threat to life or bodily function? @ -no (Angel Valdez) - Lab Data Lab Results 11/10/22 11/10/22 11/10/22 Range/Units 16:59 16:59 16:59 WBC 7.0 (3.8-10.6) k/uL RBC 4.64 (3.80-5.40) m/uL Hgb 12.9 (11.4-16.0) gm/dL Hct 41.3 (34.0-46.0) % MCV 88.9 (80.0-100.0) fL MCH 27.8 (25.0-35.0) pg MCHC 31.3 (31.0-37.0) g/dL RDW 13.8 (11.5-15.5) % Plt Count 306 (150-450) k/uL MPV 8.3 Neutrophils % 70 % Lymphocytes % 18 % Monocytes % 6 % Eosinophils % 4 % Basophils % 0 % Neutrophils # 4.9 (1.3-7.7) k/uL Lymphocytes # 1.3 (1.0-4.8) k/uL Monocytes # 0.4 (0-1.0) k/uL Eosinophils # 0.2 (0-0.7) k/uL Basophils # 0.0 (0-0.2) k/uL Hypochromasia Slight D-Dimer (<0.60) mg/L FEU Sodium 137 (137-145) mmol/L Potassium 4.6 (3.5-5.1) mmol/L Chloride 104 (98-107) mmol/L Carbon Dioxide 24 (22-30) mmol/L Anion Gap 9 mmol/L BUN 32 H (7-17) mg/dL Creatinine 1.75 H (0.52-1.04) mg/dL Est GFR (CKD-EPI)AfAm 36 (>60 ml/min/1.73 sqM) Est GFR (CKD-EPI)NonAf 32 (>60 ml/min/1.73 sqM) Glucose 84 (74-99) mg/dL Plasma Lactic Acid Raffi (0.7-2.0) mmol/L Calcium 9.6 (8.4-10.2) mg/dL Total Bilirubin 0.4 (0.2-1.3) mg/dL AST 27 (14-36) U/L ALT 18 (4-34) U/L Alkaline Phosphatase 81 (38-126) U/L Creatine Kinase (30-135) U/L Troponin I <0.012 (0.000-0.034) ng/mL Total Protein 8.6 H (6.3-8.2) g/dL Albumin 4.8 (3.5-5.0) g/dL 11/10/22 11/10/22 11/10/22 Range/Units 16:59 18:11 18:14 WBC (3.8-10.6) k/uL RBC (3.80-5.40) m/uL Hgb (11.4-16.0) gm/dL Hct (34.0-46.0) % MCV (80.0-100.0) fL MCH (25.0-35.0) pg MCHC (31.0-37.0) g/dL RDW (11.5-15.5) % Plt Count (150-450) k/uL MPV Neutrophils % % Lymphocytes % % Monocytes % % Eosinophils % % Basophils % % Neutrophils # (1.3-7.7) k/uL Lymphocytes # (1.0-4.8) k/uL Monocytes # (0-1.0) k/uL Eosinophils # (0-0.7) k/uL Basophils # (0-0.2) k/uL Hypochromasia D-Dimer 0.29 (<0.60) mg/L FEU Sodium (137-145) mmol/L Potassium (3.5-5.1) mmol/L Chloride (98-107) mmol/L Carbon Dioxide (22-30) mmol/L Anion Gap mmol/L BUN (7-17) mg/dL Creatinine (0.52-1.04) mg/dL Est GFR (CKD-EPI)AfAm (>60 ml/min/1.73 sqM) Est GFR (CKD-EPI)NonAf (>60 ml/min/1.73 sqM) Glucose (74-99) mg/dL Plasma Lactic Acid Raffi 0.7 (0.7-2.0) mmol/L Calcium (8.4-10.2) mg/dL Total Bilirubin (0.2-1.3) mg/dL AST (14-36) U/L ALT (4-34) U/L Alkaline Phosphatase (38-126) U/L Creatine Kinase 54 (30-135) U/L Troponin I (0.000-0.034) ng/mL Total Protein (6.3-8.2) g/dL Albumin (3.5-5.0) g/dL Disposition <Carly Melendez - Last Filed: 11/10/22 15:27> Is patient prescribed a controlled substance at d/c from ED?: No Time of Disposition: 21:01 <Angel Valdez - Last Filed: 11/10/22 21:02> Clinical Impression: Adverse effect of drug/medicinal, Weakness Disposition: HOME SELF-CARE Additional Instructions: Follow-up with Dr. Hassan tomorrow Referrals: Franklin Hassan MD [Primary Care Provider] - 1-2 days
--- NOTE | 2022-11-10 15:37 | XR ---
EXAMINATION TYPE: XR chest 2V DATE OF EXAM: 11/10/2022 COMPARISON: 10/28/2022 INDICATION: Short of breath, asthma TECHNIQUE: Frontal and lateral views of the chest are obtained. FINDINGS: The heart size is mildly prominent. Pacemaker overlies the right chest. Prior cardiac valve replaceme nt is evident. The pulmonary vasculature is normal. The lungs are clear. IMPRESSION: 1. No acute pulmonary process.
[2022-11-10 17:07] VITALS: RESP 18
[2022-11-10 17:07] LABS: Basophils % (A) 0 %; Eosinophils # (A) 0.2 k/uL (0-0.7); Eosinophils % (A) 4 %; HCT 41.3 % (34.0-46.0); HGB 12.9 gm/dL (11.4-16.0); Hypochromasia Slight; Lymphocytes # (A) 1.3 k/uL (1.0-4.8); Lymphocytes % (A) 18 %; MCH 27.8 pg (25.0-35.0); MCHC 31.3 g/dL (31.0-37.0); MCV 88.9 fL (80.0-100.0); Mean Platelet Volume 8.3; Monocytes # (A) 0.4 k/uL (0-1.0); Monocytes % (A) 6 %; Neutrophils # (A) 4.9 k/uL (1.3-7.7); Neutrophils % (A) 70 %; Platelet Count 306 k/uL (150-450); RBC 4.64 m/uL (3.80-5.40); RDW 13.8 % (11.5-15.5)
[2022-11-10 17:32] LABS: ALT 18 U/L (4-34); AST 27 U/L (14-36); African American GFR (CKD) 36 (>60 ml/min/1.73 sqM); Albumin 4.8 g/dL (3.5-5.0); Alkaline Phosphatase 81 U/L (38-126); Anion Gap 9 mmol/L; Blood Urea Nitrogen 32 mg/dL (7-17); Calcium 9.6 mg/dL (8.4-10.2); Carbon Dioxide 24 mmol/L (22-30); Chloride 104 mmol/L (98-107); Glucose 84 mg/dL (74-99); Non-African American GFR(CKD) 32 (>60 ml/min/1.73 sqM); Potassium 4.6 mmol/L (3.5-5.1); Sodium 137 mmol/L (137-145); Total Bilirubin 0.4 mg/dL (0.2-1.3); Total Protein 8.6 g/dL (6.3-8.2)
[2022-11-10] MEDS ORDERED: SODIUM CHLORIDE 0.9% 1,000 ML IV ONE (20:38)
[2022-11-10 21:23] VITALS: BP 128/80; PULSE 72
== END 2022-11-10 22:32 | disposition home or self-care (01) ==
LOC: EC 14:06
DX: R53.1 Weakness (principal); T45.515A Adverse effect of anticoagulants, initial encounter; F41.9 Anxiety disorder, unspecified; J45.909 Unspecified asthma, uncomplicated; Z79.01 Long term (current) use of anticoagulants; Z79.52 Long term (current) use of systemic steroids; Z79.899 Other long term (current) drug therapy; Z91.040 Latex allergy status; Z88.0 Allergy status to penicillin; Z88.8 Allergy status to other drugs, medicaments and biological substances
CPT/HCPCS: 36415; 71046; 80053; 82550; 83605; 84484; 85025; 85379; 93005; 96360; 99285

== ENCOUNTER → 2022-11-25 | Outpatient (CLI) | payer BC, MEDICARE | END | disposition home or self-care (01) | LOC: LABWHC1 16:27 | PROVIDERS: ATTEND Family Medicine | DX: R78.81 Bacteremia (principal) | CPT/HCPCS: 87040 ==

== ENCOUNTER 2022-11-27 19:49 | Emergency (ER) | payer BC, MEDICARE ==
--- NOTE | 2022-11-27 21:15 | ED ---
General Adult HPI - General Source: patient Mode of arrival: wheelchair Limitations: no limitations <KenialupisAndres metz - Last Filed: 11/28/22 16:16> <Angel Mayes - Last Filed: 11/30/22 06:52> - General Chief complaint: Fever Stated complaint: Fever, oral sores Time Seen by Provider: 11/27/22 21:08 - History of Present Illness Initial comments: Patient presents to the ED complaining of developing a fever that started earlier today. Patient states that she was on IV antibiotics for 2 weeks due to bacteremia/sepsis, and she just had her antibiotics stopped 8 days ago. Patient states that she is concerned that she may be septic again. Patient states that she took a dose of Tylenol 1 g PO about 1 hour prior to coming to the ED tonight. Patient states that her temperature at home was 100.3F. Patient states that she has had oral sores, a sore throat and diffuse myalgias for the past 2 days. Patient also admits to feeling nauseated and having a mild cough. Patient denies headache, focal neuro deficit, neck pain or stiffness, dysphagia, chest pain, dyspnea, hemoptysis, palpitations, dizziness, abdominal pain, vomiting or diarrhea, bloody or melanotic stool, dysuria/hematuria/urinary frequency/urinary symptoms, rash, or any other symptoms or complaints. Patient states that she is unimmunized against Covid and influenza. (Andres Gabriel) - Related Data Home Medications Medication Instructions Recorded Confirmed Atorvastatin [Lipitor] 40 mg PO HS 09/24/21 11/29/22 Cholestyramine (with Sugar) 4 gm PO DAILY PRN 09/24/21 11/29/22 [Cholestyramine Packet] Gabapentin 300 mg PO QID 09/24/21 11/29/22 Sertraline [Zoloft] 200 mg PO DAILY 09/24/21 11/29/22 Ubrogepant [Ubrelvy] 100 mg PO BID PRN 09/24/21 11/29/22 rOPINIRole HCL [Requip] 2 mg PO HS 09/24/21 11/29/22 Budesonide/Glycopyr/Formoterol 1 puff INHALATION RT-BID 03/16/22 11/29/22 [Breztri Aerosphere Inhaler] Esomeprazole Magnesium [NexIUM] 40 mg PO DAILY 03/16/22 11/29/22 Botox 200unit Injection 1 dose INJ Q84D 04/02/22 11/29/22 Meclizine [Antivert] 12.5 mg PO Q8H PRN 04/02/22 11/29/22 Diphenhydramine 50mg/Ml Vial 50 mg IM Q6H PRN 04/18/22 11/29/22 Apixaban [Eliquis] 5 mg PO BID 05/29/22 11/29/22 Spironolactone [Aldactone] 50 mg PO TID 06/11/22 11/29/22 busPIRone HCl [Buspar] 5 mg PO BID 06/11/22 11/29/22 Bumetanide [BUMEX] 2 mg PO DAILY 06/24/22 11/29/22 Bumetanide [BUMEX] 1 mg PO HS 08/26/22 11/29/22 Lidocaine 5% Patch [Lidoderm 5% 1 patch TRANSDERM DAILY PRN 08/26/22 11/29/22 Patch] Fludrocortisone [Florinef] 0.1 mg PO DAILY 09/20/22 11/29/22 Metoprolol Succinate (ER) [Toprol 25 mg PO DAILY PRN 10/29/22 11/29/22 XL] Midodrine [ProAmatine] 5 mg PO TID PRN 10/29/22 11/29/22 Potassium Chloride ER [K-Dur 20] 40 meq PO BID 10/29/22 11/29/22 HYDROcodone/APAP 5-325MG [[place] 1 tab PO TID 11/29/22 11/29/22 5-325] Levalbuterol Nebulized [Xopenex 0.31 mg INHALATION RT-TID PRN 11/29/22 11/29/22 Nebulized (Pediatric)] Ondansetron [Zofran] 4 mg PO Q8H PRN 11/29/22 11/29/22 Previous Rx's Medication Instructions Recorded Dicyclomine [Bentyl] 20 mg PO TID PRN #30 tablet 04/30/22 Zonisamide [Zonegran] 100 mg PO Q12HR 30 Days #60 cap 07/26/22 Ibuprofen [Motrin] 400 mg PO Q6HR PRN tab 11/05/22 Lacosamide [Vimpat] 50 mg PO BID tab 11/05/22 Nystatin 100,000 Unit/gm Powd 1 applic TOPICAL BID 60 Days #60 11/05/22 [Mycostatin Powder] each Nystatin 100,000 Unit/ml Susp 500,000 unit PO QID 30 Days #300 ml 11/05/22 [Mycostatin Oral Susp] Allergies Allergy/AdvReac Type Severity Reaction Status Date / Time Penicillins Allergy Severe Anaphylaxis Verified 11/29/22 09:56 vancomycin Allergy Severe Swelling Verified 11/29/22 09:56 in lips clindamycin Allergy Anaphylaxis Verified 11/29/22 09:56 dexamethasone [From Decadron] Allergy Unknown Verified 11/29/22 09:56 Influenza Virus Vaccines Allergy Unknown Verified 11/29/22 09:56 latex Allergy Unknown Verified 11/29/22 09:56 morphine Allergy Unknown Verified 11/29/22 09:56 prochlorperazine Allergy Unknown Verified 11/29/22 09:56 [From Compazine] [id number] AdvReac Confusion, Verified 11/29/22 09:56 [From Emgality Pen] increased blood pressure metoclopramide [From Reglan] AdvReac "felt like Verified 11/29/22 09:56 I needed to jump out of my skin" Review of Systems ROS Other: All systems not noted in ROS Statement are negative. <Andres Gabriel - Last Filed: 11/28/22 16:16> ROS Other: All systems not noted in ROS Statement are negative. <Angel Mayes - Last Filed: 11/30/22 06:52> ROS Statement: Those systems with pertinent positive or pertinent negative responses have been documented in the HPI. 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 for low K+ History of Any Multi-Drug Resistant Organisms: C-DIFF Date of last positivie culture/infection: 2021 MDRO Source:: Stool Past Surgical History: Back Surgery, Breast Surgery, Cardiac Valve Replacement, Section, Cholecystectomy, Heart Catheterization, Hysterectomy, Pacemaker Additional Past Surgical History / Comment(s): pacemaker d/t bradycardia/hypotension with last one place in 2013 in [place], [place], 3 lower back surgeries, bilateral breast reduction. 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 <Andres Gabriel - Last Filed: 11/28/22 16:16> General Exam Limitations: no limitations General appearance: alert, in no apparent distress Head exam: Present: normocephalic Eye exam: Present: normal appearance ENT exam: Present: normal oropharynx, other (Oral aphthous ulcers are noted on exam) Neck exam: Present: other (Trachea is in midline; no evidence of nuchal rigidity or meningeal signs on exam). Absent: tenderness, meningismus Respiratory exam: Present: normal lung sounds bilaterally. Absent: respiratory distress, wheezes, rales, rhonchi, stridor Cardiovascular Exam: Present: regular rate, normal rhythm, normal heart sounds, other (Normal radial pulses bilaterally) GI/Abdominal exam: Present: soft. Absent: distended, tenderness, guarding Extremities exam: Absent: tenderness, pedal edema Back exam: Absent: CVA tenderness (R), CVA tenderness (L) Neurological exam: Present: alert, oriented X3 Psychiatric exam: Present: normal affect, normal mood Skin exam: Present: warm, dry, intact, normal color <Andres Gabriel - Last Filed: 11/28/22 16:16> General appearance: alert, in no apparent distress, anxious Head exam: Present: atraumatic, normocephalic, normal inspection Eye exam: Present: normal appearance, PERRL, EOMI. Absent: scleral icterus, conjunctival injection, periorbital swelling ENT exam: Present: normal exam, mucous membranes moist Neck exam: Present: normal inspection. Absent: tenderness, meningismus, lymphadenopathy Respiratory exam: Present: normal lung sounds bilaterally. Absent: respiratory distress, wheezes, rales, rhonchi, stridor Cardiovascular Exam: Present: normal rhythm, tachycardia, normal heart sounds. Absent: systolic murmur, diastolic murmur, rubs, gallop, clicks GI/Abdominal exam: Present: soft, normal bowel sounds. Absent: distended, tenderness, guarding, rebound, rigid Extremities exam: Present: normal inspection, full ROM, normal capillary refill. Absent: tenderness, pedal edema, joint swelling, calf tenderness Back exam: Present: normal inspection Neurological exam: Present: alert, oriented X3, CN II-XII intact Psychiatric exam: Present: normal affect, normal mood Skin exam: Present: warm, dry, intact, normal color. Absent: rash <Angel Mayes - Last Filed: 11/30/22 06:52> Course <Andres Gabriel - Last Filed: 11/28/22 16:16> <Angel Mayes - Last Filed: 11/30/22 06:52> Vital Signs 11/27/22 11/27/22 11/27/22 19:53 21:03 22:57 Temperature 99.9 F H 99.2 F Pulse Rate 117 H 86 82 Respiratory 18 Rate Blood Pressure 115/59 143/80 O2 Sat by Pulse 98 Oximetry 11/28/22 11/28/22 01:00 02:14 Temperature 98.9 F Pulse Rate 70 82 Respiratory 16 16 Rate Blood Pressure 127/68 127/78 O2 Sat by Pulse 98 98 Oximetry - Reevaluation(s) Reevaluation #1: 11/27/22 23:02 Patient was endorsed to Dr. Mayes secondary to end of my shift. Dr. Mayes to follow up on the patient's UA, strep test and Cepheid results (all of which are still pending), and to take over care of the patient at this time. (Andres Gabriel) Medical record is reviewed (Angel Mayes) Reevaluation #2: Patient symptoms are improved (Angel Mayes) Reevaluation #3: Patient informed results questions answered, will follow up with blood cultures on an outpatient basis (Angel Mayes) Medical Decision Making - Lab Data Result diagrams: 11/27/22 21:23 11/27/22 21:23 <Andres Gabriel - Last Filed: 11/28/22 16:16> - Lab Data Result diagrams: 11/27/22 21:23 11/27/22 21:23 - Radiology Data Radiology results: report reviewed (Chest x-rays negative for acute disease), image reviewed <Angel Mayes - Last Filed: 11/30/22 06:52> - Medical Decision Making Was pt. sent in by a medical professional or institution (ELIZABETH Castorena, STITCH BONDING MACHINE OPERATOR, urgent care, hospital, or jail...) When possible be specific @ -No Did you speak to anyone other than the patient for history (EMS, parent, family, police, friend...)? What history was obtained from this source @ -No Did you review nursing and triage notes (agree or disagree)? Why? @ -I reviewed and agree with nursing and triage notes Were old charts reviewed (outside hosp., previous admission, EMS record, old EKG, old radiological studies, urgent care reports/EKG's, jail records)? Report findings @ -No old charts were reviewed Differential Diagnosis (chest pain, altered mental status, abdominal pain women, abdominal pain men, vaginal bleeding, weakness, fever, dyspnea, syncope, headache, dizziness, GI bleed, back pain, seizure, CVA, palpatations, mental health, musculoskeletal)? @ -Differential Fever: Pneumonia, viral URI, bronchitis, viral illness, endocarditis, pharyngitis, abscess, bacteremia, UTI, pyelonephritis, sepsis, this is not meant to be an all-inclusive list. EKG interpreted by me (3pts min.). @ -None done X-rays interpreted by me (1pt min.). @ -Chest x-ray was reviewed myself and shows no acute abnormality. I agree with the radiologist's interpretation as above. CT interpreted by me (1pt min.). @ -None done U/S interpreted by me (1pt. min.). @ -None done What testing was considered but not performed or refused? (CT, X-rays, U/S, labs)? Why? @ -None What meds were considered but not given or refused? Why? @ -None Did you discuss the management of the patient with other professionals (professionals i.e. , PA, STITCH BONDING MACHINE OPERATOR, lab, RT, psych nurse, social science instructor, baby sitter, teacher, guest services officer, pillowcase turner)? Give summary @ -No Was smoking cessation discussed for >3mins.? @ -No Was critical care preformed (if so, how long)? @ -No Were there social determinants of health that impacted care today? How? (Homelessness, low income, unemployed, alcoholism, drug addiction, transportation, low edu. Level, literacy, decrease access to med. care, [facility], rehab)? @ -No Was there de-escalation of care discussed even if they declined (Discuss DNR or withdrawal of care, Hospice)? DNR status @ -No What co-morbidities impacted this encounter? (DM, HTN, Smoking, COPD, CAD, Cancer, CVA, ARF, Chemo, Hep., AIDS, mental health diagnosis, sleep apnea, morbid obesity)? @ -None Was patient admitted / discharged? Hospital course, mention meds given and route, prescriptions, significant lab abnormalities, going to OR and other pertinent info. @ -Patient's temperature is improved to 99.2F while in the ED. Patient has been treated with IV fluids, IV analgesics, IV antiemetics and oral potassium repletion in the ED. Patient's WBC count is within normal limits. Patient's chest x-ray shows no acute abnormality. Patient's UA, strep test and Cepheid test is still pending at this time. Patient was endorsed to Dr. Mayes due to end of my shift. Dr. Mayes to follow up on these test results and take over care of the patient at this time. (Andres Gabriel) 57 female to the emergency department for body aches and pains concern for ba cteremia. Patient has improved laboratory evaluations here in the ER, we'll take blood cultures and await those as an outpatient basis. Patient's x-rays negative no significant cause of fevers found here in the ER patient can be discharged home (Angel Mayes) - Lab Data Lab Results 11/27/22 11/27/22 11/27/22 Range/Units 00:46 21:23 21:23 WBC 7.4 (3.8-10.6) k/uL RBC 4.14 (3.80-5.40) m/uL Hgb 11.9 (11.4-16.0) gm/dL Hct 35.8 (34.0-46.0) % MCV 86.4 (80.0-100.0) fL MCH 28.8 (25.0-35.0) pg MCHC 33.4 (31.0-37.0) g/dL RDW 14.3 (11.5-15.5) % Plt Count 183 (150-450) k/uL MPV 8.8 Neutrophils % 80 % Lymphocytes % 8 % Monocytes % 8 % Eosinophils % 1 % Basophils % 0 % Neutrophils # 5.9 (1.3-7.7) k/uL Lymphocytes # 0.6 L (1.0-4.8) k/uL Monocytes # 0.6 (0-1.0) k/uL Eosinophils # 0.1 (0-0.7) k/uL Basophils # 0.0 (0-0.2) k/uL Sodium 138 (137-145) mmol/L Potassium 3.1 L (3.5-5.1) mmol/L Chloride 99 (98-107) mmol/L Carbon Dioxide 30 (22-30) mmol/L Anion Gap 9 mmol/L BUN 28 H (7-17) mg/dL Creatinine 1.23 H (0.52-1.04) mg/dL Est GFR (CKD-EPI)AfAm 56 (>60 ml/min/1.73 sqM) Est GFR (CKD-EPI)NonAf 49 (>60 ml/min/1.73 sqM) Glucose 119 H (74-99) mg/dL Plasma Lactic Acid Raffi (0.7-2.0) mmol/L Calcium 8.5 (8.4-10.2) mg/dL Total Bilirubin 0.4 (0.2-1.3) mg/dL AST 28 (14-36) U/L ALT 24 (4-34) U/L Alkaline Phosphatase 67 (38-126) U/L Total Protein 7.0 (6.3-8.2) g/dL Albumin 4.1 (3.5-5.0) g/dL Urine Color Urine Appearance (Clear) Urine pH (5.0-8.0) Ur Specific [place] (1.001-1.035) Urine Protein (Negative) Urine Glucose (UA) (Negative) Urine Ketones (Negative) Urine Blood (Negative) Urine Nitrite (Negative) Urine Bilirubin (Negative) Urine Urobilinogen (<2.0) mg/dL Ur Leukocyte Esterase (Negative) Influenza Type A (PCR) (Not Detectd) Influenza Type B (PCR) (Not Detectd) RSV (PCR) (Not Detectd) SARS-CoV-2 (PCR) (Not Detectd) Group A Strep (PCR) NOT DETECTED (Not Detectd) 11/27/22 11/27/22 11/27/22 Range/Units 21:23 22:20 23:59 WBC (3.8-10.6) k/uL RBC (3.80-5.40) m/uL Hgb (11.4-16.0) gm/dL Hct (34.0-46.0) % MCV (80.0-100.0) fL MCH (25.0-35.0) pg MCHC (31.0-37.0) g/dL RDW (11.5-15.5) % Plt Count (150-450) k/uL MPV Neutrophils % % Lymphocytes % % Monocytes % % Eosinophils % % Basophils % % Neutrophils # (1.3-7.7) k/uL Lymphocytes # (1.0-4.8) k/uL Monocytes # (0-1.0) k/uL Eosinophils # (0-0.7) k/uL Basophils # (0-0.2) k/uL Sodium (137-145) mmol/L Potassium (3.5-5.1) mmol/L Chloride (98-107) mmol/L Carbon Dioxide (22-30) mmol/L Anion Gap mmol/L BUN (7-17) mg/dL Creatinine (0.52-1.04) mg/dL Est GFR (CKD-EPI)AfAm (>60 ml/min/1.73 sqM) Est GFR (CKD-EPI)NonAf (>60 ml/min/1.73 sqM) Glucose (74-99) mg/dL Plasma Lactic Acid Raffi 1.3 (0.7-2.0) mmol/L Calcium (8.4-10.2) mg/dL Total Bilirubin (0.2-1.3) mg/dL AST (14-36) U/L ALT (4-34) U/L Alkaline Phosphatase (38-126) U/L Total Protein (6.3-8.2) g/dL Albumin (3.5-5.0) g/dL Urine Color Yellow Urine Appearance Clear (Clear) Urine pH 7.5 (5.0-8.0) Ur Specific [place] 1.015 (1.001-1.035) Urine Protein Trace H (Negative) Urine Glucose (UA) Negative (Negative) Urine Ketones Negative (Negative) Urine Blood Negative (Negative) Urine Nitrite Negative (Negative) Urine Bilirubin Negative (Negative) Urine Urobilinogen 0.2 (<2.0) mg/dL Ur Leukocyte Esterase Negative (Negative) Influenza Type A (PCR) Not Detected (Not Detectd) Influenza Type B (PCR) Not Detected (Not Detectd) RSV (PCR) Not Detected (Not Detectd) SARS-CoV-2 (PCR) Not Detected (Not Detectd) Group A Strep (PCR) (Not Detectd) - Radiology Data Chest x-ray: 1. No acute cardiopulmonary disease/process. 2. Left PICC with tip in appropriate position. (Andres Gabriel) Disposition <Andres Gabriel - Last Filed: 11/28/22 16:16> Is patient prescribed a controlled substance at d/c from ED?: No Time of Disposition: 01:45 <Angel Mayes - Last Filed: 11/30/22 06:52> Clinical Impression: Acute febrile illness, Oral aphthous ulcer, Hypokalemia Disposition: HOME SELF-CARE Condition: Good Instructions (If sedation given, give patient instructions): Fever in Adults (ED) Referrals: Franklin Hassan MD [Primary Care Provider] - 1-2 days
[2022-11-27] MEDS ORDERED: SODIUM CHLORIDE 0.9% 1,000 ML IV STA (21:23)
--- NOTE | 2022-11-27 21:36 | XR ---
EXAMINATION TYPE: XR chest 2V DATE OF EXAM: 11/27/2022 9:32 PM COMPARISON: Chest radiographs from 11/10/2022 TECHNIQUE: XR chest 2V Frontal and lateral views of the chest. CLINICAL INDICATION:Female, 57 years old with history of fever; FINDINGS: Lungs/Pleura: There is no evidence of pleural effusion, focal consolidation, or pneumothorax. Pulmonary vascularity: Unremarkable. Heart/mediastinum: Cardiomediastinal silhouette is unremarkable. Post mitral valve repair changes. A loop recorder projects over the left thorax over the heart. Right chest wall [id number] with d istal tip in the right atrium. Musculoskeletal: No acute osseous pathology. Other findings: None Lines/Tubes: Left-sided PICC with distal tip at the superior vena cava/brachiocephalic confluence. IMPRESSION: 1. No acute cardiopulmonary disease/process. 2. Left PICC with tip in appropriate position.
[2022-11-27] MEDS ORDERED: ONDANSETRON 4 MG/2 ML VIAL IVP STA (22:34)
[2022-11-27] MEDS ORDERED: KETOROLAC 15 MG/ML 1 ML VIAL IVP STA (22:35)
[2022-11-27 22:43] LABS: Basophils % (A) 0 %; Eosinophils # (A) 0.1 k/uL (0-0.7); Eosinophils % (A) 1 %; HCT 35.8 % (34.0-46.0); HGB 11.9 gm/dL (11.4-16.0); Lymphocytes # (A) 0.6 k/uL (1.0-4.8); Lymphocytes % (A) 8 %; MCH 28.8 pg (25.0-35.0); MCHC 33.4 g/dL (31.0-37.0); MCV 86.4 fL (80.0-100.0); Mean Platelet Volume 8.8; Monocytes # (A) 0.6 k/uL (0-1.0); Monocytes % (A) 8 %; Neutrophils # (A) 5.9 k/uL (1.3-7.7); Neutrophils % (A) 80 %; Platelet Count 183 k/uL (150-450); RBC 4.14 m/uL (3.80-5.40); RDW 14.3 % (11.5-15.5); WBC 7.4 k/uL (3.8-10.6)
[2022-11-27 22:45] LABS: ALT 24 U/L (4-34); AST 28 U/L (14-36); African American GFR (CKD) 56 (>60 ml/min/1.73 sqM); Albumin 4.1 g/dL (3.5-5.0); Alkaline Phosphatase 67 U/L (38-126); Anion Gap 9 mmol/L; Blood Urea Nitrogen 28 mg/dL (7-17); Calcium 8.5 mg/dL (8.4-10.2); Carbon Dioxide 30 mmol/L (22-30); Chloride 99 mmol/L (98-107); Glucose 119 mg/dL (74-99); Non-African American GFR(CKD) 49 (>60 ml/min/1.73 sqM); Potassium 3.1 mmol/L (3.5-5.1); Sodium 138 mmol/L (137-145); Total Bilirubin 0.4 mg/dL (0.2-1.3)
[2022-11-27] MEDS ORDERED: HYDROmorphone 0.5 MG/0.5 ML SYRINGE IVP STA (22:52)
[2022-11-27] MEDS ORDERED: POTASSIUM CHLORIDE ER 20 MEQ TAB.ER PO STA (22:59)
[2022-11-28] MEDS ORDERED: HYDROmorphone 1 MG/ML 1 ML SYRINGE IVP STA (00:53)
[2022-11-28] MEDS ORDERED: POTASSIUM BICARBONATE/CIT AC 20 MEQ TABLET.EFF PO ONE (00:53)
[2022-11-28 00:56] LABS: Appearance,Urine Clear (Clear); Bilirubin,Urine Negative (Negative); Blood,Urine Negative (Negative); Color,Urine Yellow; Glucose,Urine (UA) Negative (Negative); Ketones,Urine Negative (Negative); Leukocyte Esterase,Urine Negative (Negative); Nitrite,Urine Negative (Negative); PH, Urine 7.5 (5.0-8.0); Protein,Urine Trace (Negative); Specific Gravity,Urine 1.015 (1.001-1.035); Urobilinogen,Urine 0.2 mg/dL (<2.0)
[2022-11-28 01:15] VITALS: RESP 16
[2022-11-28 02:14] VITALS: BP 127/78; PULSE 82; TEMP 98.9
== END 2022-11-28 02:14 | disposition home or self-care (01) ==
LOC: EC 19:49
DX: R50.9 Fever, unspecified (principal); K12.0 Recurrent oral aphthae; E87.6 Hypokalemia; N18.30 Chronic kidney disease, stage 3 unspecified; F41.9 Anxiety disorder, unspecified; Z88.0 Allergy status to penicillin; Z88.5 Allergy status to narcotic agent; Z91.040 Latex allergy status; Z88.1 Allergy status to other antibiotic agents; Z88.8 Allergy status to other drugs, medicaments and biological substances; Z79.01 Long term (current) use of anticoagulants; Z79.899 Other long term (current) drug therapy; Z20.822 Contact with and (suspected) exposure to COVID-19
CPT/HCPCS: 80053; 83605; 85025; 87040; 87636; 71046; 99284; 96374; 96375; 96361 ×2; 96376; J2405; J1170; 36415; 81003; 87651

== ENCOUNTER 2022-11-29 08:09 | Inpatient (IN) | payer BC, MEDICARE ==
[2022-11-29] MEDS ORDERED: SODIUM CHLORIDE 0.9% 1,000 ML IV STA (08:30)
[2022-11-29] MEDS ORDERED: ACETAMINOPHEN TAB 325 MG TAB PO STA (08:30)
[2022-11-29] MEDS ORDERED: ONDANSETRON 4 MG/2 ML VIAL IVP STA (08:31)
[2022-11-29] MEDS ORDERED: ACETAMINOPHEN TAB 325 MG TAB PO PRN (08:33)
[2022-11-29] MEDS ORDERED: NALOXONE 0.4 MG/ML 1 ML VIAL IV PRN (08:33)
--- NOTE | 2022-11-29 08:39 | ED ---
General Adult HPI - General Chief complaint: Nausea/Vomiting/Diarrhea Stated complaint: abn labs Time Seen by Provider: 11/29/22 08:18 Source: patient, RN notes reviewed, old records reviewed Mode of arrival: ambulatory Limitations: no limitations - History of Present Illness Initial comments: 57-year-old female presents with positive blood cultures. Patient states she was seen in the emergency department on November 27 with complaints of fever and chills. She had workup and was subsequently discharged. She was contacted this morning indicating that her blood cultures had become positive. She states she's continues to have fever and chills. She states she had a crown placed on the left lower jaw and states that she has had bacteremia previously from dental work. She reports mild cough. She has some nausea. No dysuria or hematuria. No rash. She does have a port in the left upper extremity. She denies erythema at this site. Blood cultures were positive for gram-negative bacilli. - Related Data Home Medications Medication Instructions Recorded Confirmed Atorvastatin [Lipitor] 40 mg PO HS 09/24/21 11/10/22 Cholestyramine (with Sugar) 4 gm PO DAILY PRN 09/24/21 11/10/22 [Cholestyramine Packet] Gabapentin 600 mg PO QID 09/24/21 11/10/22 Sertraline [Zoloft] 200 mg PO DAILY 09/24/21 11/10/22 Ubrogepant [Ubrelvy] 100 mg PO BID PRN 09/24/21 11/10/22 rOPINIRole HCL [Requip] 2 mg PO HS 09/24/21 11/10/22 Budesonide/Glycopyr/Formoterol 1 puff INHALATION RT-BID 03/16/22 11/10/22 [Breztri Aerosphere Inhaler] Esomeprazole Magnesium [NexIUM] 40 mg PO DAILY 03/16/22 11/10/22 Botox 200unit Injection 1 dose INJ Q84D 04/02/22 11/10/22 Meclizine [Antivert] 12.5 mg PO Q8H PRN 04/02/22 11/10/22 Diphenhydramine 50mg/Ml Vial 50 mg IM Q6H PRN 04/18/22 11/10/22 Apixaban [Eliquis] 5 mg PO BID 05/29/22 11/10/22 Spironolactone [Aldactone] 50 mg PO TID 06/11/22 11/10/22 busPIRone HCl [Buspar] 5 mg PO BID 06/11/22 11/10/22 Bumetanide [BUMEX] 2 mg PO DAILY 06/24/22 11/10/22 Bumetanide [BUMEX] 1 mg PO HS 08/26/22 11/10/22 Lidocaine 5% Patch [Lidoderm 5% 1 patch TRANSDERM DAILY PRN 08/26/22 11/10/22 Patch] Fludrocortisone [Florinef] 0.1 mg PO DAILY 09/20/22 11/10/22 HYDROcodone/APAP 7.5-325MG [[place] 1 tab PO TID PRN 10/29/22 11/10/22 7.5-325] Metoprolol Succinate (ER) [Toprol 25 mg PO DAILY PRN 10/29/22 11/10/22 XL] Midodrine [ProAmatine] 5 mg PO TID PRN 10/29/22 11/10/22 Potassium Chloride ER [K-Dur 20] 40 meq PO BID 10/29/22 11/10/22 predniSONE See Taper PO DIRECTED 10/29/22 11/10/22 Previous Rx's Medication Instructions Recorded Dicyclomine [Bentyl] 20 mg PO TID PRN #30 tablet 04/30/22 Ondansetron Odt [Zofran ODT] 4 mg PO Q8HR PRN #12 tab 04/30/22 Zonisamide [Zonegran] 100 mg PO Q12HR 30 Days #60 cap 07/26/22 Cefepime [Maxipime] 2 gm IVPB Q12HR 10 Days #20 each 11/05/22 Ibuprofen [Motrin] 400 mg PO Q6HR PRN tab 11/05/22 Lacosamide [Vimpat] 50 mg PO BID tab 11/05/22 Nystatin 100,000 Unit/gm Powd 1 applic TOPICAL BID 60 Days #60 11/05/22 [Mycostatin Powder] each Nystatin 100,000 Unit/ml Susp 500,000 unit PO QID 30 Days #300 ml 11/05/22 [Mycostatin Oral Susp] Allergies Allergy/AdvReac Type Severity Reaction Status Date / Time Penicillins Allergy Severe Anaphylaxis Verified 11/29/22 08:15 vancomycin Allergy Severe Swelling Verified 11/29/22 08:15 in lips clindamycin Allergy Anaphylaxis Verified 11/29/22 08:15 dexamethasone [From Decadron] Allergy Unknown Verified 11/29/22 08:15 Influenza Virus Vaccines Allergy Unknown Verified 11/29/22 08:15 latex Allergy Unknown Verified 11/29/22 08:15 morphine Allergy Unknown Verified 11/29/22 08:15 prochlorperazine Allergy Unknown Verified 11/29/22 08:15 [From Compazine] galcanezumab-gnlm AdvReac Confusion, Verified 11/29/22 08:15 [From Emgality Pen] increased blood pressure metoclopramide [From Reglan] AdvReac "felt like Verified 11/29/22 08:15 I needed to jump out of my skin" Review of Systems ROS Statement: Those systems with pertinent positive or pertinent negative responses have been documented in the HPI. ROS Other: All systems not noted in ROS Statement are negative. 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 for low K+ History of Any Multi-Drug Resistant Organisms: C-DIFF Date of last positivie culture/infection: 2021 MDRO Source:: Stool Past Surgical History: Back Surgery, Breast Surgery, Cardiac Valve Replacement, Section, Cholecystectomy, Heart Catheterization, Hysterectomy, Pacema ker Additional Past Surgical History / Comment(s): pacemaker d/t bradycardia/hypotension with last one place in 2013 in [place], 3 lower back surgeries, bilateral breast reduction. 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 Past Anesthesia/Blood Transfusion Reactions: No Reported Reaction Type of Cardiac Device: Permanent Pacemaker, Unknown Device Placement Date:: 2012 Past Psychological History: Anxiety Smoking Status: Never smoker Past Alcohol Use History: None Reported Past Drug Use History: Marijuana - Past Family History Mother Additional Family Medical History / Comment(s): Mother at the age of 49 yrs after surgery for silicon breast implants with a leak that caused ARDS and DIC per pt Father Family Medical History: Cancer, Hyperlipidemia, Hypertension Additional Family Medical History / Comment(s): Father is a colon cancer survivor. General Exam Limitations: no limitations General appearance: alert, in no apparent distress Head exam: Present: atraumatic, normocephalic Eye exam: Present: normal appearance, PERRL ENT exam: Present: normal exam Neck exam: Present: normal inspection Respiratory exam: Present: normal lung sounds bilaterally. Absent: respiratory distress, wheezes Cardiovascular Exam: Present: regular rate, normal rhythm GI/Abdominal exam: Present: soft, tenderness. Absent: distended, guarding, rebound Extremities exam: Present: normal inspection, normal capillary refill. Absent: pedal edema Neurological exam: Present: alert, oriented X3 Psychiatric exam: Present: normal affect, normal mood Skin exam: Present: warm, dry, intact. Absent: cyanosis Course Vital Signs 11/29/22 08:12 Temperature 98.6 F Pulse Rate 97 Respiratory 18 Rate Blood Pressure 128/87 O2 Sat by Pulse 96 Oximetry Medical Decision Making - Medical Decision Making Was pt. sent in by a medical professional or institution (, PA, PURCHASING CLERK, urgent care, hospital, or residential...) When possible be specific @ -No Did you speak to anyone other than the patient for history (EMS, parent, family, police, friend...)? What history was obtained from this source @ -No Did you review nursing and triage notes (agree or disagree)? Why? @ -I reviewed and agree with nursing and triage notes Were old charts reviewed (outside hosp., previous admission, EMS record, old EKG, old radiological studies, urgent care reports/EKG's, residential records)? Report findings @ -No old charts were reviewed Differential Diagnosis (chest pain, altered mental status, abdominal pain women, abdominal pain men, vaginal bleeding, weakness, fever, dyspnea, syncope, headache, dizziness, GI bleed, back pain, seizure, CVA, palpatations, mental health, musculoskeletal)? @ -[Differential Fever: Pneumonia, viral URI, endocarditis, myocarditis, pericarditis, otitis, sinusitis, peritonsillar Abscess, retropharyngeal Abscess, epiglottitis, peritonitis, appendicitis, Rae cystitis, diverticulitis, hepatitis, colitis, UTI, PID, TOA, pyelonephritis, prostatitis, epididymitis, meningitis, encephalitis, pulmonary embolism, CVA, thyroid storm, pancreatitis, adrenal crisis, cavernous sinus thrombosis, this is not meant to be an all-inclusive list. EKG interpreted by me (3pts min.). @ -As above X-rays interpreted by me (1pt min.). @ -[Chest x-ray has been ordered, images pending CT interpreted by me (1pt min.). @ -None done U/S interpreted by me (1pt. min.). @ -None done What testing was considered but not performed or refused? (CT, X-rays, U/S, labs)? Why? @ -None What meds were considered but not given or refused? Why? @ -None Did you discuss the management of the patient with other professionals (professionals i.e. , PA, PURCHASING CLERK, lab, RT, psych nurse, child protective services social worker, unix consultant, teacher, training systems officer, family preservation caseworker)? Give summary @Dr. Hassan Was smoking cessation discussed for >3mins.? @ -No Was critical care preformed (if so, how long)? @ -No Were there social determinants of health that impacted care today? How? (Homelessness, low income, unemployed, alcoholism, drug addiction, transportat ion, low edu. Level, literacy, decrease access to med. care, intermediate, rehab)? @ -No Was there de-escalation of care discussed even if they declined (Discuss DNR or withdrawal of care, Hospice)? DNR status @ -No What co-morbidities impacted this encounter? (DM, HTN, Smoking, COPD, CAD, Cancer, CVA, ARF, Chemo, Hep., AIDS, mental health diagnosis, sleep apnea, morbid obesity)? @ -[Multiple comorbidities, previous valve replacement, pacemaker, Mediport Was patient admitted / discharged? Hospital course, mention meds given and route, prescriptions, significant lab abnormalities, going to OR and other pertinent info. @ -[57-year-old female presents from the outpatient setting after having a positive blood culture results. She continues to have fever and chills. She is afebrile upon arrival. Chief complaint is nausea with fever and chills. Repeat cultures will be obtained, as well as CBC, CMP, lactic acid, urinalysis and chest x-ray. Her blood cultures were preliminarily positive for gram- negative bacilli. She has significant anabiotic ALLERGIES. Initially will be placed on cefepime pending speciation and sensitivity. She'll be admitted to her primary care provider with infectious disease on consult. Undiagnosed new problem with uncertain prognosis? @ -No Drug Therapy requiring intensive monitoring for toxicity (Heparin, Nitro, Insulin, Cardizem)? @ -No Were any procedures done? @ -No Diagnosis/symptom? @ Bacteremia Acute, or Chronic, or Acute on Chronic? @ -[Acute Uncomplicated (without systemic symptoms) or Complicated (systemic symptoms)? @ -[Complicated Side effects of treatment? @ -No Exacerbation, Progression, or Severe Exacerbation? @ -No Poses a threat to life or bodily function? How? (Chest pain, USA, MS, pneumonia, PE, COPD, DKA, ARF, appy, cholecystitis, CVA, Diverticulitis, Homicidal, Suicidal, threat to staff... and all critical care pts) @ -Yes, sepsis Disposition Clinical Impression: Bacteremia Disposition: ADMITTED IP TO THIS HOSP Condition: Stable Is patient prescribed a controlled substance at d/c from ED?: No Referrals: Franklin Hassan MD [Primary Care Provider] - 1-2 days Time of Disposition: 08:39
[2022-11-29] MEDS ORDERED: diphenhydrAMINE 25 MG CAP PO PRN (08:54)
[2022-11-29] MEDS ORDERED: CEFEPIME 2 GM in SODIUM CHLORIDE 0.9% 100 ML IVPB SCH (09:00)
[2022-11-29] MEDS ORDERED: diphenhydrAMINE 50 MG/ML 1 ML VIAL IVP PRN (09:18)
--- NOTE | 2022-11-29 10:05 | XR ---
EXAMINATION TYPE: XR chest 2V DATE OF EXAM: 11/29/2022 COMPARISON: 11/27/2022 INDICATION: Fever TECHNIQUE: Frontal and lateral views of the chest are obtained. FINDINGS: The heart size is upper limits for normal. The pulmonary vasculature is normal. The lungs are clear. Pacemaker overlies the right chest. PICC line enters on the left. Prior cardiac valve surgery is evident. IMPRESSION: 1. No acute pulmonary process.
[2022-11-29 10:10] LABS: Basophils % (A) 0 %; Eosinophils # (A) 0.1 k/uL (0-0.7); Eosinophils % (A) 2 %; HCT 38.8 % (34.0-46.0); HGB 13.2 gm/dL (11.4-16.0); Lymphocytes # (A) 0.8 k/uL (1.0-4.8); Lymphocytes % (A) 10 %; MCH 28.9 pg (25.0-35.0); MCHC 34.1 g/dL (31.0-37.0); MCV 84.9 fL (80.0-100.0); Mean Platelet Volume 8.9; Monocytes # (A) 0.7 k/uL (0-1.0); Monocytes % (A) 9 %; Neutrophils # (A) 6.1 k/uL (1.3-7.7); Neutrophils % (A) 76 %; Platelet Count 211 k/uL (150-450); RBC 4.57 m/uL (3.80-5.40); RDW 14.2 % (11.5-15.5); WBC 7.9 k/uL (3.8-10.6)
[2022-11-29 10:25] LABS: ALT 26 U/L (4-34); AST 30 U/L (14-36); African American GFR (CKD) 49 (>60 ml/min/1.73 sqM); Albumin 4.7 g/dL (3.5-5.0); Alkaline Phosphatase 80 U/L (38-126); Anion Gap 14 mmol/L; Blood Urea Nitrogen 21 mg/dL (7-17); Calcium 9.8 mg/dL (8.4-10.2); Carbon Dioxide 27 mmol/L (22-30); Chloride 96 mmol/L (98-107); Glucose 115 mg/dL (74-99); Non-African American GFR(CKD) 43 (>60 ml/min/1.73 sqM); Potassium 3.6 mmol/L (3.5-5.1); Sodium 137 mmol/L (137-145); Total Bilirubin 0.5 mg/dL (0.2-1.3); Total Protein 7.7 g/dL (6.3-8.2)
[2022-11-29] MEDS ORDERED: HYDROcodone/APAP 5-325MG 1 EACH TAB PO PRN ×2 (11:40→17:57)
[2022-11-29] MEDS ORDERED: HYDROcodone/APAP 5-325MG 1 EACH TAB PO STA (11:41)
[2022-11-29] MEDS: ONDANSETRON 4 MG TAB PO PRN (13:17)
--- NOTE | 2022-11-29 14:50 | CT ---
EXAMINATION TYPE: CT facial bones wo con DATE OF EXAM: 11/29/2022 COMPARISON: 03/18/2022 HISTORY: BACTEREMIA CT DLP: 496.8 mGycm CONTRAST: 0 mL of Isovue 300 The paranasal sinuses are examined in the axial plane at 2 mm thick sections. Reconstructed images i n the coronal plane were obtained. There is dental amalgam scatter artifact. No suspicious erosions to suggest underlying abscess within the left mandible is evident. No cortical erosions are identified. No expansile lytic areas evident. There are multiple tooth extractions. The maxillary sinuses are clear. The ethmoid air cells are clear. The sphenoid sinuses are clear. The frontal sinuses are clear. The septum is evaluated. There is posterior septal deviation to the left. The ostiomeatal units are patent. IMPRESSIONS: 1. No suspicious abscess formation or osteomyelitis of the mandible evident.
[2022-11-29 14:57] LABS: Appearance,Urine Clear (Clear); Bilirubin,Urine Negative (Negative); Blood,Urine Negative (Negative); Color,Urine Yellow; Glucose,Urine (UA) Negative (Negative); Ketones,Urine Negative (Negative); Leukocyte Esterase,Urine Small (Negative); Mucus,Urine Rare /hpf; Nitrite,Urine Negative (Negative); Protein,Urine Trace (Negative); Specific Gravity,Urine 1.019 (1.001-1.035); Squamous Epithelial Cell,Urine 6 /hpf (0-4); Urobilinogen,Urine <2.0 mg/dL (<2.0); WBC,Urine 4 /hpf (0-5)
[2022-11-29] MEDS: CEFEPIME 2 GM in SODIUM CHLORIDE 0.9% 100 ML IVPB SCH (16:17)
[2022-11-29] MEDS ORDERED: diphenhydrAMINE 50 MG/ML 1 ML VIAL IM PRN (17:44)
[2022-11-29] MEDS ORDERED: NON FORMULARY DRUG (Ubrogepant [Ubrelvy] 100 MG Tablet) PO PRN (17:44)
[2022-11-29] MEDS ORDERED: MIDODRINE 5 MG TAB PO PRN (17:44)
[2022-11-29] MEDS ORDERED: ONDANSETRON 4 MG TAB PO PRN (17:44)
[2022-11-29] MEDS ORDERED: MECLIZINE 12.5 MG TAB PO PRN (17:44)
[2022-11-29] MEDS ORDERED: METOPROLOL SUCCINATE (ER) 25 MG TAB.ER.24H PO PRN (17:44)
[2022-11-29] MEDS ORDERED: CHOLESTYRAMINE (WITH SUGAR) 4 GM PACKET PO PRN (17:44)
[2022-11-29] MEDS ORDERED: DICYCLOMINE 20 MG TAB PO PRN (17:44)
[2022-11-29] MEDS ORDERED: ALBUTEROL NEBULIZED 2.5 MG/3 ML INHALATION PRN (17:44)
[2022-11-29] MEDS ORDERED: ONABOTULINUMTOXINA 200 UNIT INJ SCH (17:45)
[2022-11-29] MEDS: GABAPENTIN 300 MG CAP PO SCH ×2 (18:31→21:02)
[2022-11-29] MEDS: diphenhydrAMINE 50 MG/ML 1 ML VIAL IVP PRN (18:32)
[2022-11-29] MEDS: HYDROmorphone 0.5 MG/0.5 ML SYRINGE IVP PRN (20:43)
[2022-11-29] MEDS: BUMETANIDE 1 MG TAB PO SCH (20:46)
[2022-11-29] MEDS: ATORVASTATIN 40 MG TAB PO SCH (20:46)
[2022-11-29] MEDS: busPIRone HCl 5 MG TAB PO SCH (20:47)
[2022-11-29] MEDS: POTASSIUM CHLORIDE ER 20 MEQ TAB.ER PO SCH (20:47)
[2022-11-29] MEDS: APIXABAN 5 MG TAB PO SCH (20:47)
[2022-11-29] MEDS: LACOSAMIDE 50 MG TABLET PO SCH ×2 (20:47→21:01)
[2022-11-29] MEDS: ZONISAMIDE 100 MG CAP PO SCH (20:48)
[2022-11-29] MEDS: SPIRONOLACTONE 25 MG TAB PO SCH (21:02)
--- NOTE | 2022-11-29 21:34 | P.CONS ---
History of Present Illness - Reason for Consult Consult date: 11/29/22 Bacteremia Requesting physician: Kale Brito - Chief Complaint Fever and positive blood culture x 2 days - History of Present Illness Patient is a 57-year female with a past medical history significant for antiphospholipid antibody syndrome history of PE seizure disorder patient did have a left upper arm port for infusion with a recent admission to the hospital patient did have a Serratia marcescens bacteremia patient did have extensive work-up including a PORFIRIO that was negative for any vegetation CT chest abdominal pelvis did not show any acute abnormality patient also have a WBC scan which did shows mild increased uptake region of the cecum and ascending colon and right lung, patient was advised a 2-week course of IV cefepime from her negative blood culture with the patient completed as of 11/19/2022, patient did have a follow-up blood culture on 11/25/2022 that has been negative patient mention she did went for chronic to her left lower jaw premolar teeth the next day the patient started having fever with rigors and chills and also have some blisters in her mouth patient mention she came to the ER on 11/27/2022 she did have a work-up without any clear focus of infection was discharged home this morning the patient was called back to come to the ER and the blood cultures came back positive with gram-negative bacilli patient is currently complaining of pain to the left lower jaw area with recent dental work describing it to be more of a sharp pain 6-7 out of 10 no radiation patient denies having any chest pain or shortness with occasional cough no nausea vomiting abdominal pain or diarrhea on presentation to the hospital patient did have a chest x-ray no acute pulmonary process patient did have a normal white count BUN/creatinine is mildly elevated liver enzymes are normal urine is negative patient was started on cefepime infectious disease was consulted for further management of antibiotic therapy Review of Systems Positive point and negatives has been mentioned in the HPI, complete review of systems was performed and all other systems are negative Past Medical History Past Medical History: Blood Disorder, Pulmonary Embolus (PE), Renal Disease, Seizure Disorder Additional Past Medical History / Comment(s): Antiphospholipid antibody syndrome which causes clots and bleeding, multiple PEs, R renal artery embolism/now atrophic, CKD stage III, hypotension, hypokalemia especially w/stress, lupus, pyoderm grangrenosum, decreased pituitary function pt states d/t clot, migraines, chonic cervical/back pain, herniated discs, RLS, vertigo, recent adm. for low K+ History of Any Multi-Drug Resistant Organisms: C-DIFF Year Discovered:: 2021 MDRO Source:: Stool Past Surgical History: Back Surgery, Breast Surgery, Cardiac Valve Replacement, Section, Cholecystectomy, Heart Catheterization, Hysterectomy, Pacemaker Additional Past Surgical History / Comment(s): pacemaker d/t bradycardia/hypotension with last one place in 2013 in [place], [place], 3 lower back surgeries, bilateral breast reduction. 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 Past Anesthesia/Blood Transfusion Reactions: No Reported Reaction Type of Cardiac Device: Permanent Pacemaker, Unknown Device Placement Date:: 2012 Past Psychological History: Anxiety Smoking Status: Never smoker Past Alcohol Use History: None Reported Past Drug Use History: Marijuana - Past Family History Mother Additional Family Medical History / Comment(s): Mother at the age of 49 yrs after surgery for silicon breast implants with a leak that caused ARDS and DIC per pt Father Family Medical History: Cancer, Hyperlipidemia, Hypertension Additional Family Medical History / Comment(s): Father is a colon cancer survivor. Medications and Allergies Home Medications Medication Instructions Recorded Confirmed Type Atorvastatin [Lipitor] 40 mg PO HS 09/24/21 11/29/22 History Cholestyramine (with Sugar) 4 gm PO DAILY PRN 09/24/21 11/29/22 History [Cholestyramine Packet] Gabapentin 300 mg PO QID 09/24/21 11/29/22 History Sertraline [Zoloft] 200 mg PO DAILY 09/24/21 11/29/22 History Ubrogepant [Ubrelvy] 100 mg PO BID PRN 09/24/21 11/29/22 History rOPINIRole HCL [Requip] 2 mg PO HS 09/24/21 11/29/22 History Esomeprazole Magnesium [NexIUM] 40 mg PO DAILY 03/16/22 11/29/22 History Botox 200unit Injection 1 dose INJ Q84D 04/02/22 11/29/22 History Meclizine [Antivert] 12.5 mg PO Q8H PRN 04/02/22 11/29/22 History Diphenhydramine 50mg/Ml Vial 50 mg IM Q6H PRN 04/18/22 11/29/22 History Dicyclomine [Bentyl] 20 mg PO TID PRN #30 tablet 04/30/22 11/29/22 Rx Apixaban [Eliquis] 5 mg PO BID 05/29/22 11/29/22 History Spironolactone [Aldactone] 50 mg PO TID 06/11/22 11/29/22 History busPIRone HCl [Buspar] 5 mg PO BID 06/11/22 11/29/22 History Bumetanide [BUMEX] 2 mg PO DAILY 06/24/22 11/29/22 History Zonisamide [Zonegran] 100 mg PO Q12HR 30 Days #60 cap 07/26/22 11/29/22 Rx Lidocaine 5% Patch [Lidoderm 5% 1 patch TRANSDERM DAILY PRN 08/26/22 11/29/22 History Patch] Fludrocortisone [Florinef] 0.1 mg PO DAILY 09/20/22 11/29/22 History Metoprolol Succinate (ER) [Toprol 25 mg PO DAILY PRN 10/29/22 11/29/22 History XL] Midodrine [ProAmatine] 5 mg PO TID PRN 10/29/22 11/29/22 History Lacosamide [Vimpat] 50 mg PO BID tab 11/05/22 11/29/22 Rx Nystatin 100,000 Unit/gm Powd 1 applic TOPICAL BID 60 Days #60 11/05/22 11/29/22 Rx [Mycostatin Powder] each Nystatin 100,000 Unit/ml Susp 500,000 unit PO QID 30 Days #300 ml 11/05/22 11/29/22 Rx [Mycostatin Oral Susp] HYDROcodone/APAP 5-325MG [[place] 1 tab PO TID 11/29/22 11/29/22 History 5-325] Levalbuterol Nebulized [Xopenex 0.31 mg INHALATION RT-TID PRN 11/29/22 11/29/22 History Nebulized (Pediatric)] Ondansetron [Zofran] 4 mg PO Q8H PRN 11/29/22 11/29/22 History Cefepime [Maxipime] 2 gm IVPB Q8HR each 12/03/22 Rx Potassium Chloride ER [K-Dur 20] 20 meq PO BID tab 12/03/22 Rx Allergies Allergy/AdvReac Type Severity Reaction Status Date / Time Penicillins Allergy Severe Anaphylaxis Verified 12/08/22 17:50 vancomycin Allergy Severe Swelling Verified 12/08/22 17:50 in lips clindamycin Allergy Anaphylaxis Verified 12/08/22 17:50 dexamethasone [From Decadron] Allergy Unknown Verified 12/08/22 17:50 Influenza Virus Vaccines Allergy Unknown Verified 12/08/22 17:50 latex Allergy Unknown Verified 12/08/22 17:50 morphine Allergy Unknown Verified 12/08/22 17:50 prochlorperazine Allergy Unknown Verified 12/08/22 17:50 [From Compazine] galcanezumab-gnlm AdvReac Confusion, Verified 12/08/22 17:50 [From Emgality Pen] increased blood pressure metoclopramide [From Reglan] AdvReac "felt like Verified 12/08/22 17:50 I needed to jump out of my skin" Physical Exam Vitals: Vital Signs Temp Pulse Resp BP Pulse Ox 11/29/22 08:12 98.6 F 97 18 128/87 96 Intake and Output 11/28/22 11/29/22 11/29/22 22:59 06:59 14:59 Other: Weight 70.307 kg GENERAL DESCRIPTION: Middle-aged female lying in bed, no distress. No tachypnea or accessory muscle of respiration use. HEENT: Shows Pallor , no scleral icterus. Oral mucous membrane is dry. No pharyngeal erythema or thrush NECK: Trachea central, no thyromegaly. LUNGS: Unlabored breathing. Clear to auscultation anteriorly. No wheeze or crackle. HEART: S1, S2, regular rate and rhythm. No loud murmur ABDOMEN: Soft, no tenderness , guarding or rigidity, no organomegaly EXTREMITIES: No edema of feet. SKIN: No rash, no masses palpable. NEUROLOGICAL: The patient is awake, alert, oriented x3, mood and affect normal. Results CBC & Chem 7: 12/03/22 06:10 12/03/22 06:10 Assessment and Plan (1) Bacteremia Status: Acute Code(s): R78.81 - BACTEREMIA SNOMED Code(s): 2825937 Plan: 1patient with recurrent Serratia marcescens bacteremia in this patient who did have extensive work-up on last admission including a PORFIRIO that was negative for any vegetation CT chest abdominal pelvis did not show any acute abnormality WBC scan did show some uptake in the colon and right lower lobe and the patient did clear her bacteremia very quickly patient complete her IV antibiotic therapy as of 11/19/2022 and did have a negative blood culture on 11/25/2022 did have a recent dental work-up now with a new fever and gram-negative bacteremia patient main complaint has been left lower jaw pain to the site of dental work-up however no significant inflammatory changes were noticed on clinical examination patient did have left upper arm PowerPort for infusion and that site looks clean with no evidence of an cellulitis abdominal was soft lungs were clear to auscultation urine has been negative 2 blood cultures will be repeated document clearance of bacteremia 3-we will check inflammatory markers 4-check CT of the left lower jaw to make sure no evidence of any abscess or osteomyelitis if negative the other likely focus will be the left upper arm IV port site and may need to be removed 5-adjust the dose of cefepime to 2 g every 8 hours We will follow on clinical condition and cultures to further adjust medication if needed Thank you for this consultation we will follow the patient along with you Dictation was produced using [employer] dictation software. please excuse any grammatical, word or spelling errors. Time with Patient: Greater than 30
[2022-11-30] MEDS: HYDROmorphone 0.5 MG/0.5 ML SYRINGE IVP PRN ×6 (00:29→23:13)
[2022-11-30] MEDS: CEFEPIME 2 GM in SODIUM CHLORIDE 0.9% 100 ML IVPB SCH ×4 (00:29→23:13)
[2022-11-30] MEDS: diphenhydrAMINE 50 MG/ML 1 ML VIAL IVP PRN ×4 (00:33→23:13)
--- NOTE | 2022-11-30 03:19 | HP ---
HISTORY AND PHYSICAL A 57-year-old white female with past medical history of antiphospholipid syndrome, seizure disorder. Positive blood culture in 3 different episodes of Serratia marcescens bacteremia. Extensive workup including a PORFIRIO, which did not show any vegetative lesions. White blood cell scan showed right lung inflammation, finished IV cefepime, now she is positive for gram-negative blood culture following a jaw premolar tooth capping. Denies any rigor and chills. She was called to come back to the office for positive blood culture. Sharp pain 6 to 7/10. No nausea, vomiting. Discussed case with Dr. Luo, who recommends port removal. Infection most likely coming from her port in her left arm. Dr. Gomez has been consulted. PAST MEDICAL HISTORY: Renal disease, pulmonary embolism, blood disorder, severe seizure disorder, renal artery embolism, migraines, pain. PAST SURGICAL HISTORY: Breast surgery, cardiac valve replacement, , cholecystectomy, heart catheterization, hysterectomy, pacemaker. SOCIAL HISTORY: Mother at age 49, breast implants. Father cancer, dyslipidemia, hypertension. MEDICATIONS: Reviewed. PHYSICAL EXAMINATION: VITAL SIGNS: Temperature 98.7, pulse 97, respiratory rate 16 to 18, blood pressure 128/87, O2 of 96%. Blood culture repeated for bacteremia. CT of the lower jaw was negative. Continue with cefepime 2 g q.8 for negative gram-negative bacilli blood culture. Dr. Luo wants a port removal. Consult with Dr. Gomez for the port removal. Continue with cefepime. Wait for further cultures. Prognosis guarded. MMODL / IJN: [id number] /
[2022-11-30] MEDS: LACOSAMIDE 50 MG TABLET PO SCH ×2 (08:48→20:50)
[2022-11-30] MEDS: SERTRALINE 100 MG TAB PO SCH (09:00)
[2022-11-30] MEDS: APIXABAN 5 MG TAB PO SCH (09:00)
[2022-11-30] MEDS: SPIRONOLACTONE 25 MG TAB PO SCH ×3 (09:00→21:15)
[2022-11-30] MEDS: busPIRone HCl 5 MG TAB PO SCH ×2 (09:00→21:15)
[2022-11-30] MEDS: PANTOPRAZOLE 40 MG TABLET PO SCH (09:01)
[2022-11-30] MEDS: BUMETANIDE 1 MG TAB PO SCH ×2 (09:01→21:15)
[2022-11-30] MEDS: ZONISAMIDE 100 MG CAP PO SCH ×2 (09:01→21:14)
[2022-11-30] MEDS: FLUDROCORTISONE 0.1 MG TAB PO SCH (09:02)
[2022-11-30] MEDS: GABAPENTIN 300 MG CAP PO SCH ×4 (09:02→21:15)
[2022-11-30] MEDS: POTASSIUM CHLORIDE ER 20 MEQ TAB.ER PO SCH ×2 (09:04→21:15)
[2022-11-30] MEDS ORDERED: LACTULOSE 20 GM/30 ML CUP PO PRN (10:38)
--- NOTE | 2022-11-30 11:45 | P.GSCN ---
History of Present Illness Consult date: 11/30/22 Reason for Consult: Port removal/recurrent sepsis Requesting physician: Franklin Hassan History of present illness: This is a pleasant 49-year-old female who presented to the emergency department 3 days ago with complaints of fever chills and body aches. At that time she had blood cultures drawn and states she received a call yesterday stating her blood cultures were positive and she needed to come to the emergency department to be admitted. Patient states she had recent dental work within the last month and had to have a crown repaired. She states after she was given numbing medicine she had a large ulceration in her mouth she was having pain in her jaw. She states that often when she has dental work she gets an infection and has been admitted to the hospital for IV antibiotics. Patient does have a left upper extremity Powerport without any redness, drainage or tenderness reported. Blood culture preliminary positive for gram-negative bacilli. Vascular surgery was consulted by PCP for port removal. The patient has poor because she has her to draw and received some antibiotics and IV fluids [place] as needed. She has multiple comorbidities including lupus, seizure disorder, chronic kidney dise ase, antiphospholipid antibody syndrome, pulmonary embolism, migraines, seizure disorder and coronary artery disease. During her last hospitalization patient had bacteremia she was started on IV antibiotics and infection was cleared within 5 days. She had a nuclear med WBC scan which was negative for left upper extremity however did show mild increased radiotracer activity involving region of cecum and ascending colon. Correlate for colitis. Increased uptake right lung may reflect underlying infectious pneumonia. Patient currently afebrile. Denies any shortness of breath or chest pain. Denies any pain in her left upper extremity, redness or drainage. She denies any shortness of breath or chest pain no abdominal pain, nausea, vomiting, fevers or chills at this time. Review of Systems A 14 point review systems was completed all pertinent positives and negatives as stated in the HPI. 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 for low K+ History of Any Multi-Drug Resistant Organisms: C-DIFF Year Discovered:: 2021 MDRO Source:: Stool Past Surgical History: Back Surgery, Breast Surgery, Cardiac Valve Replacement, Section, Cholecystectomy, Heart Catheterization, Hysterectomy, Pacemaker Additional Past Surgical History / Comment(s): pacemaker d/t bradycardia/hypote nsion with last one place in 2013 in [place], [place], 3 lower back surgeries, bilateral breast reduction. 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 Past Anesthesia/Blood Transfusion Reactions: No Reported Reaction Type of Cardiac Device: Permanent Pacemaker, Unknown Device Placement Date:: 2012 Past Psychological History: Anxiety Smoking Status: Never smoker Past Alcohol Use History: None Reported Past Drug Use History: Marijuana - Past Family History Mother Additional Family Medical History / Comment(s): Mother at the age of 49 yrs after surgery for silicon breast implants with a leak that caused ARDS and DIC per pt Father Family Medical History: Cancer, Hyperlipidemia, Hypertension Additional Family Medical History / Comment(s): Father is a colon cancer survivor. Medications and Allergies Home Medications Medication Instructions Recorded Confirmed Type Atorvastatin [Lipitor] 40 mg PO HS 09/24/21 11/29/22 History Cholestyramine (with Sugar) 4 gm PO DAILY PRN 09/24/21 11/29/22 History [Cholestyramine Packet] Gabapentin 300 mg PO QID 09/24/21 11/29/22 History Sertraline [Zoloft] 200 mg PO DAILY 09/24/21 11/29/22 History Ubrogepant [Ubrelvy] 100 mg PO BID PRN 09/24/21 11/29/22 History rOPINIRole HCL [Requip] 2 mg PO HS 09/24/21 11/29/22 History Budesonide/Glycopyr/Formoterol 1 puff INHALATION RT-BID 03/16/22 11/29/22 History [Breztri Aerosphere Inhaler] Esomeprazole Magnesium [NexIUM] 40 mg PO DAILY 03/16/22 11/29/22 History Botox 200unit Injection 1 dose INJ Q84D 04/02/22 11/29/22 History Meclizine [Antivert] 12.5 mg PO Q8H PRN 04/02/22 11/29/22 History Diphenhydramine 50mg/Ml Vial 50 mg IM Q6H PRN 04/18/22 11/29/22 History Dicyclomine [Bentyl] 20 mg PO TID PRN #30 tablet 04/30/22 11/29/22 Rx Apixaban [Eliquis] 5 mg PO BID 05/29/22 11/29/22 History Spironolactone [Aldactone] 50 mg PO TID 06/11/22 11/29/22 History busPIRone HCl [Buspar] 5 mg PO BID 06/11/22 11/29/22 History Bumetanide [BUMEX] 2 mg PO DAILY 06/24/22 11/29/22 History Zonisamide [Zonegran] 100 mg PO Q12HR 30 Days #60 cap 07/26/22 11/29/22 Rx Bumetanide [BUMEX] 1 mg PO HS 08/26/22 11/29/22 History Lidocaine 5% Patch [Lidoderm 5% 1 patch TRANSDERM DAILY PRN 08/26/22 11/29/22 History Patch] Fludrocortisone [Florinef] 0.1 mg PO DAILY 09/20/22 11/29/22 History Metoprolol Succinate (ER) [Toprol 25 mg PO DAILY PRN 10/29/22 11/29/22 History XL] Midodrine [ProAmatine] 5 mg PO TID PRN 10/29/22 11/29/22 History Potassium Chloride ER [K-Dur 20] 40 meq PO BID 10/29/22 11/29/22 History Ibuprofen [Motrin] 400 mg PO Q6HR PRN tab 11/05/22 11/29/22 Rx Lacosamide [Vimpat] 50 mg PO BID tab 11/05/22 11/29/22 Rx Nystatin 100,000 Unit/gm Powd 1 applic TOPICAL BID 60 Days #60 11/05/22 11/29/22 Rx [Mycostatin Powder] each Nystatin 100,000 Unit/ml Susp 500,000 unit PO QID 30 Days #300 ml 11/05/22 11/29/22 Rx [Mycostatin Oral Susp] HYDROcodone/APAP 5-325MG [[place] 1 tab PO TID 11/29/22 11/29/22 History 5-325] Levalbuterol Nebulized [Xopenex 0.31 mg INHALATION RT-TID PRN 11/29/22 11/29/22 History Nebulized (Pediatric)] Ondansetron [Zofran] 4 mg PO Q8H PRN 11/29/22 11/29/22 History Allergies Allergy/AdvReac Type Severity Reaction Status Date / Time Penicillins Allergy Severe Anaphylaxis Verified 11/29/22 09:56 vancomycin Allergy Severe Swelling Verified 11/29/22 09:56 in lips clindamycin Allergy Anaphylaxis Verified 11/29/22 09:56 dexamethasone [From Decadron] Allergy Unknown Verified 11/29/22 09:56 Influenza Virus Vaccines Allergy Unknown Verified 11/29/22 09:56 latex Allergy Unknown Verified 11/29/22 09:56 morphine Allergy Unknown Verified 11/29/22 09:56 prochlorperazine Allergy Unknown Verified 11/29/22 09:56 [From Compazine] galcanezumab-gnlm AdvReac Confusion, Verified 11/29/22 09:56 [From Emgality Pen] increased blood pressure metoclopramide [From Reglan] AdvReac "felt like Verified 11/29/22 09:56 I needed to jump out of my skin" Surgical - Exam Vital Signs Temp Pulse Resp BP Pulse Ox 98.6 F 97 18 128/87 96 11/29/22 08:12 11/29/22 08:12 11/29/22 08:12 11/29/22 08:12 11/29/22 08:12 General appearance: The patient is alert, oriented, appears in no acute distress. HET: Head is normocephalic and atraumatic. Pupils are equal and reactive. Neck: Supple. Heart: Regular. Lungs: Equal expansion, normal respiratory effort. Abdomen: Soft, nontender, nondistended. Extremities: Normal skin color and turgor. Left upper extremity port with dressing clean dry and intact. No surrounding erythema, drainage, or tendern ess. Neurological: No focal deficits. Strength and sensation are grossly intact. Results - Labs 11/30/22 07:53 11/29/22 09:41 Abnormal Lab Results - Last 24 Hours (Table) 11/29/22 11/29/22 11/29/22 Range/Units 09:41 09:41 14:30 Lymphocytes # 0.8 L (1.0-4.8) k/uL Chloride 96 L (98-107) mmol/L BUN 21 H (7-17) mg/dL Creatinine 1.37 H (0.52-1.04) mg/dL Glucose 115 H (74-99) mg/dL Urine Protein Trace H (Negative) Ur Leukocyte Esterase Small H (Negative) Ur Squamous Epith Cells 6 H (0-4) /hpf Urine Mucus Rare H (None) /hpf Diabetes panel 11/29/22 Range/Units 09:41 Sodium 137 (137-145) mmol/L Potassium 3.6 (3.5-5.1) mmol/L Chloride 96 L (98-107) mmol/L Carbon Dioxide 27 (22-30) mmol/L BUN 21 H (7-17) mg/dL Creatinine 1.37 H (0.52-1.04) mg/dL Glucose 115 H (74-99) mg/dL Calcium 9.8 (8.4-10.2) mg/dL AST 30 (14-36) U/L ALT 26 (4-34) U/L Alkaline Phosphatase 80 (38-126) U/L Total Protein 7.7 (6.3-8.2) g/dL Albumin 4.7 (3.5-5.0) g/dL Calcium panel 11/29/22 Range/Units 09:41 Calcium 9.8 (8.4-10.2) mg/dL Albumin 4.7 (3.5-5.0) g/dL Pituitary panel 11/29/22 Range/Units 09:41 Sodium 137 (137-145) mmol/L Potassium 3.6 (3.5-5.1) mmol/L Chloride 96 L (98-107) mmol/L Carbon Dioxide 27 (22-30) mmol/L BUN 21 H (7-17) mg/dL Creatinine 1.37 H (0.52-1.04) mg/dL Glucose 115 H (74-99) mg/dL Calcium 9.8 (8.4-10.2) mg/dL Adrenal panel 11/29/22 Range/Units 09:41 Sodium 137 (137-145) mmol/L Potassium 3.6 (3.5-5.1) mmol/L Chloride 96 L (98-107) mmol/L Carbon Dioxide 27 (22-30) mmol/L BUN 21 H (7-17) mg/dL Creatinine 1.37 H (0.52-1.04) mg/dL Glucose 115 H (74-99) mg/dL Calcium 9.8 (8.4-10.2) mg/dL Total Bilirubin 0.5 (0.2-1.3) mg/dL AST 30 (14-36) U/L ALT 26 (4-34) U/L Alkaline Phosphatase 80 (38-126) U/L Total Protein 7.7 (6.3-8.2) g/dL Albumin 4.7 (3.5-5.0) g/dL - Imaging Comments: CT face reports no suspicious abscess formation or osteomyelitis of the mandible evident. Assessment and Plan Assessment: 1. Bacteremia, preliminary blood cultures positive for gram-negative bacilli 2. Recent dental work for crown 3. Left upper extremity port 4. History of permanent pacemaker implantation 5. History of heart valve replacement 6. History of pulmonary embolism 7. Antiphospholipid lipid antibody syndrome 8. Chronic kidney disease 9. History of seizure disorder Plan: 1. Continue supportive care 2. IV antibiotics per recommendations from infectious disease 3. No plans at this time to remove the left upper extremity port, weight for repeat cultures to see of bacteremia cleared Thank you for this consultation, we will continue to follow. The impression and plan of care has been dictated as directed. I performed a history and examination of this patient, discussed the same with the dictator. I agree with the dictator's note ,documented as a scribe. Any additional findings or plans will be noted. Patient has poor vasculature and difficult access. The port in the left arm does not appear to be infected and therefore would recommend against removal and continue to treat medically.
[2022-11-30 14:19] LABS: Basophils # (A) 0.02 X 10*3/uL (0.00-0.10); Basophils % (A) 0.3 %; Eosinophils # (A) 0.16 X 10*3/uL (0.04-0.35); Eosinophils % (A) 2.7 %; HCT 38.9 % (37.2-46.3); HGB 12.1 d/dL (12.0-15.0); Lymphocytes # (A) 1.03 X 10*3/uL (0.90-5.00); Lymphocytes % (A) 17.2 %; MCH 27.5 pg (27.0-32.0); MCHC 31.1 d/dL (32.0-37.0); MCV 88.4 FL (80.0-97.0); Monocytes # (A) 0.82 X 10*3/uL (0.20-1.00); Monocytes % (A) 13.7 %; NRBC Per 100 WBC 0 X 10*3/uL (0.00-0.01); Neutrophils # (A) 3.93 X 10*3/uL (1.80-7.70); Neutrophils % (A) 65.6 %; Platelet Count 244 X 10*3/uL (140-440); RDW 13.8 % (11.5-14.5); WBC 5.99 X 10*3/uL (4.50-10.00)
[2022-11-30 15:03] LABS: ALT 23 U/L (8-44); AST 31 U/L (13-35); Albumin 4.4 d/dL (3.8-4.9); Albumin/Globulin Ratio 1.76 Ratio (1.60-3.17); Alkaline Phosphatase 67 U/L (41-126); BUN/Creat Ratio 12.86 Ratio (12.00-20.00); Calcium 9.9 mg/dL (8.7-10.3); Carbon Dioxide 26.7 mmol/L (21.6-31.8); Chloride 97 mmol/L (96-109); Globulin 2.5 d/dL (1.6-3.3); Glucose 98 mg/dL (70-110); Potassium 3.9 mmol/L (3.5-5.5); Sodium 136 mmol/L (135-145); Total Bilirubin <0.2 mg/dL (0.3-1.2); Total Protein 6.9 d/dL (6.2-8.2)
[2022-11-30 15:25] LABS: Erythrocyte Sedimentation Rate 52 mm/Hr (0-30)
--- NOTE | 2022-11-30 21:10 | PN ---
PROGRESS NOTE SUBJECTIVE: Discussed case with Dr. Luo. He wants the catheter removed from her arm for persistent Serratia marcescens. Blood culture is being positive for the third time. OBJECTIVE: VITAL SIGNS: Temperature 98.7, blood pressure 129/67, pulse 74, respiratory rate 16 to 18, O2 of 94% on room air. CARDIOVASCULAR: S1 and S2. LUNGS: Transmitted upper airway sounds. HEMATOLOGY: Negative Homans. PSYCHIATRIC: Fair mood and affect. ASSESSMENT AND PLAN: Dr. Vasquez saw the patient for blood culture gram-negative bacilli, recent dental work for crown, left upper extremity port, history of permanent pacemaker, heart valve replacement with prior negative transesophageal echocardiogram, history of pulmonary embolism, antiphospholipid syndrome, chronic kidney disease, seizure disorder, pseudoseizures. Now, plan is to remove the left upper extremity port per Dr. Vasquez. Continue supportive care. IV antibiotics. Dr. Luo thinks it is coming from the port. They refused to remove it. We will have to see what happens with the cultures. Prognosis is guarded. MMODL / IJN: [id number] /
[2022-11-30] MEDS: ATORVASTATIN 40 MG TAB PO SCH (21:15)
[2022-12-01] MEDS: HYDROmorphone 0.5 MG/0.5 ML SYRINGE IVP PRN ×5 (05:44→20:33)
[2022-12-01] MEDS: ONDANSETRON 4 MG TAB PO PRN (05:44)
[2022-12-01] MEDS: POTASSIUM CHLORIDE ER 20 MEQ TAB.ER PO SCH ×2 (09:04→20:33)
[2022-12-01] MEDS: LACOSAMIDE 50 MG TABLET PO SCH ×2 (09:04→18:00)
[2022-12-01] MEDS: CEFEPIME 2 GM in SODIUM CHLORIDE 0.9% 100 ML IVPB SCH ×2 (09:04→15:13)
[2022-12-01] MEDS: SPIRONOLACTONE 25 MG TAB PO SCH ×3 (09:05→20:33)
[2022-12-01] MEDS: ZONISAMIDE 100 MG CAP PO SCH ×2 (09:05→21:08)
[2022-12-01] MEDS: PANTOPRAZOLE 40 MG TABLET PO SCH (09:05)
[2022-12-01] MEDS: ENOXAPARIN 40 MG/0.4 ML SYRINGE SQ SCH (09:05)
[2022-12-01] MEDS: FLUDROCORTISONE 0.1 MG TAB PO SCH (09:06)
[2022-12-01] MEDS: BUMETANIDE 1 MG TAB PO SCH ×2 (09:06→21:07)
[2022-12-01] MEDS: SERTRALINE 100 MG TAB PO SCH (09:06)
[2022-12-01] MEDS: GABAPENTIN 300 MG CAP PO SCH ×4 (09:06→20:33)
[2022-12-01] MEDS: busPIRone HCl 5 MG TAB PO SCH ×2 (09:06→20:33)
[2022-12-01] MEDS: diphenhydrAMINE 50 MG/ML 1 ML VIAL IVP PRN ×2 (09:06→15:13)
--- NOTE | 2022-12-01 14:51 | P.PN ---
Subjective Progress Note Date: 12/01/22 Principal diagnosis: Bacteremia Patient seen and examined today as a follow-up. Patient is weepy and states that her PCP believes her port should come out. However she states that there is no pain or redness, no tenderness to palpation or drainage from the site. She is currently on IV antibiotics. Blood cultures are preliminary are showing gram-negative bacilli. She has been afebrile. However she states that she's been feverish, overall not feeling well, with cold sweats and body aches. Objective - Vital Signs Vital signs: Vital Signs Temp 98.1 F 12/01/22 07:49 Pulse 77 12/01/22 07:49 Resp 18 12/01/22 07:49 BP 114/77 12/01/22 07:49 Pulse Ox 93 L 12/01/22 07:49 FiO2 Intake & Output 11/30/22 12/01/22 12/01/22 18:59 06:59 18:59 Intake Total 480 Balance 480 Intake: Oral 480 Other: Voiding Method Toilet Toilet # Voids 2 1 - Exam General appearance: The patient is alert, oriented, appears in no acute distress. HET: Head is normocephalic and atraumatic. Pupils are equal and reactive. Neck: Supple. Abdomen: Soft, nondistended. Extremities: Normal skin color and turgor. Left upper extremity port with dressing clean dry and intact without any surrounding erythema, no tenderness to palpation or drainage. Neurological: No focal deficits. Strength and sensation are grossly intact. - Labs CBC & Chem 7: 11/30/22 07:53 11/30/22 07:53 Labs: Abnormal Lab Results - Last 24 Hours (Table) 11/30/22 11/30/22 Range/Units 07:53 07:53 MCHC 31.1 L (32.0-37.0) d/dL ESR 52 H (0-30) mm/Hr Anion Gap 12.30 H (4.00-12.00) mmol/L Est GFR (CKD-EPI) 44 L (>=60) Total Bilirubin <0.2 L (0.3-1.2) mg/dL C-Reactive Protein 4.80 H (0.00-0.80) mg/dL Microbiology - Last 24 Hours (Table) 11/29/22 09:30 Blood Culture - Preliminary Blood 11/29/22 09:45 Blood Culture Gram Stain - Preliminary Blood Assessment and Plan Assessment: 1. Bacteremia, preliminary blood cultures positive for gram-negative bacilli 2. Recent dental work for crown 3. Left upper extremity port 4. History of permanent pacemaker implantation 5. History of heart valve replacement 6. History of pulmonary embolism 7. Antiphospholipid lipid antibody syndrome 8. Chronic kidney disease 9. History of seizure disorder Plan: 1. Continue supportive care 2. IV antibiotics per recommendations from infectious disease 3. Continue medical management, wait for repeat cultures to see of bacteremia cleared. 4. Further recommendations forthcoming per vascular surgeon. Thank you for this consultation, we will continue to follow. The impression and plan of care has been dictated as directed. Dr. Gomez I performed a history and examination of this patient, discussed the same with the dictator. I agree with the dictator's note ,documented as a scribe. Any additional findings or plans will be noted.
[2022-12-01] MEDS: LORazepam 2 MG/ML INJ IV PRN (16:27)
[2022-12-01] MEDS: ATORVASTATIN 40 MG TAB PO SCH (20:32)
[2022-12-02] MEDS: diphenhydrAMINE 50 MG/ML 1 ML VIAL IVP PRN ×3 (00:04→16:17)
[2022-12-02] MEDS: CEFEPIME 2 GM in SODIUM CHLORIDE 0.9% 100 ML IVPB SCH ×3 (00:04→16:12)
[2022-12-02] MEDS: HYDROmorphone 0.5 MG/0.5 ML SYRINGE IVP PRN ×2 (00:10→21:38)
--- NOTE | 2022-12-02 07:28 | PN ---
PROGRESS NOTE Eliquis and heparin subcu, so she can get her port removed. Vascular is going to reassess her. She had a seizure tonight. She is placed on IV Ativan lumbar degenerative disk disease cardiovascular, S1-S2. Psych fair mood and affect. Neurologic, alert and oriented x3 positive blood culture broad-spectrum antibiotic, history of Serratia marcescens port removed prognosis is guarded. Condition guarded. Continue to treat for seizures and breathing treatments for COPD, etc. Prognosis, guarded. Aspiration precaution. MMODL / IJN: [id number] /
[2022-12-02] MEDS: GABAPENTIN 300 MG CAP PO SCH ×4 (08:40→21:37)
[2022-12-02] MEDS: POTASSIUM CHLORIDE ER 20 MEQ TAB.ER PO SCH ×2 (08:40→21:37)
[2022-12-02] MEDS: ENOXAPARIN 40 MG/0.4 ML SYRINGE SQ SCH (08:40)
[2022-12-02] MEDS: SERTRALINE 100 MG TAB PO SCH (08:41)
[2022-12-02] MEDS: SPIRONOLACTONE 25 MG TAB PO SCH ×3 (08:41→21:37)
[2022-12-02] MEDS: ZONISAMIDE 100 MG CAP PO SCH ×2 (08:42→21:37)
[2022-12-02] MEDS: busPIRone HCl 5 MG TAB PO SCH ×2 (08:42→21:37)
[2022-12-02] MEDS: FLUDROCORTISONE 0.1 MG TAB PO SCH (08:42)
[2022-12-02] MEDS: PANTOPRAZOLE 40 MG TABLET PO SCH (08:42)
[2022-12-02] MEDS: BUMETANIDE 1 MG TAB PO SCH (08:42)
[2022-12-02] MEDS: LACOSAMIDE 50 MG TABLET PO SCH ×2 (08:46→21:37)
--- NOTE | 2022-12-02 09:00 | CDI ---
Documentation Clarification Form Date: 12/02/2022 08:27:37 AM From: Sujey Acosta RN CCDS Phone: [phone] Admit Date: 11/29/2022 08:33:00 AM Patient Name: Dania Meza Visit Number: [id number] Discharge Date: ATTENTION: The Clinical Documentation Specialists (CDI) and [facility] Coding Staff appreciate your assistance in clarifying documentation. Please respond to the clarification below the line at the bottom and electronically sign. The CDI & [facility] Coding staff will review the response and follow-up if needed. Please note: Queries are made part of the Legal Health Record. If you have any questions, please contact the author of this message via ITS. Dr. Franklin Hassan There is documentation of bacteremia with gram-negative bacilli, 11/30, H&P. Bacteremia is considered a lab finding. Additional clarification regarding bacteremia is requested. Patient history/risk factors: 57 year old female presents to the ED with fevers and chills on November 27, worked up and discharged. The patient was contacted 11/29 and told blood cultures were positive and return to ED. Patient states she recently had a crown placed on the left lower jaw and has had bacteremia from previous dental work. Clinical Indicators: WBC, 11/29: 7.9 CRP, 11/30: 4.80 Blood Culture: 11/29 Gram Neg Bacilli Blood [place]re: 11/30 No Growth after 48 hours Consult: ID, 11/29: Check CT of the left lower jaw to make sure no evidence of any abscess or osteomyelitis if negative the other likely focus will be the left upper arm IV port site and may need to be removed. Vascular SX, 11/30: No plans at this time to remove the left upper extremity port, wait for repeat cultures to see if bacteremia cleared. Patient has poor vasculature and difficult access. The port in the left arm does not appear to be infected and therefore would recommend against removal and continue to treat medically. Currently complaining of pain to the left lower jaw area with recent dental work describing it to be more of a sharp pain 6-7 out of 10. Vascular SX, 12/01: Continue medical management, wait for repeat cultures to see if bacteremia cleared. Treatment: Consults above from Vascular SX and Infectious Disease. Antibiotics: 11/29 Cefepime HCI 2gm IVPB Q8HR. Please provide additional clarification regarding the etiology/cause and/or clinical significance of the bacteremia: [ ] Bacteremia is due to infectious process, infected port. [ ] Bacteremia is due to infectious process, recent dental work with complaint of jaw pain. [ ] Bacteremia is not clinically significant [ ] Other, please specify [ ] Unable to determine (Template Last Revised: June 2020) MTDD
[2022-12-02] MEDS: ONDANSETRON 4 MG TAB PO PRN (09:31)
[2022-12-02] MEDS: HYDROmorphone 1 MG/ML 1 ML SYRINGE IVP PRN ×2 (09:34→16:12)
--- NOTE | 2022-12-02 09:47 | P.PN ---
Subjective Progress Note Date: 11/30/22 Principal diagnosis: Gram-negative bacteremia Patient is a 57-year-old female with multiple comorbidities and recent admission to the hospital with sedation marcescens bacteremia patient did have extensive workup including a PORFIRIO CT chest abdominal pelvis and a WBC scan without evidence of any deep infection patient did completed two-week course of IV cefepime and did have a negative blood culture on 11/25/2022 subsequently did have dental work up on 11/25/2022 developing a fever and a blood culture positive on 11/27/2022 with gram-negative bacilli for the patient has been readmitted to the hospital patient was complaining mostly of pain to the left lower jaw CT has been that did not show any osteomyelitis or abscess On today's evaluation that is 11/30/2022, patient is afebrile patient is breathing comfortably, denies any chest pain shortness of breath or cough no nausea no vomiting no abdominal pain and no diarrhea Patient did have a white count of 5.99 and creatinine of 1.4 blood cultures admission positive, blood culture repeated so far pending Objective - Vital Signs Vital signs: Vital Signs Temp 99.3 F 11/30/22 19:15 Pulse 75 11/30/22 19:15 Resp 18 11/30/22 19:45 BP 133/78 11/30/22 19:15 Pulse Ox 95 11/30/22 19:15 FiO2 Intake & Output 11/30/22 11/30/22 12/01/22 06:59 18:59 06:59 Intake Total 240 Balance 240 Intake: Oral 240 Other: Voiding Method Toilet Toilet Toilet # Voids 3 2 - Exam GENERAL DESCRIPTION: Middle-aged female lying in bed in no distress RESPIRATORY SYSTEM: Unlabored breathing , decreased breath sounds at bases HEART: S1 S2 regular rate and rhythm , ABDOMEN: Soft , no tenderness EXTREMITIES: No edema feet - Labs CBC & Chem 7: 11/30/22 07:53 11/30/22 07:53 Labs: Abnormal Lab Results - Last 24 Hours (Table) 11/30/22 11/30/22 Range/Units 07:53 07:53 MCHC 31.1 L (32.0-37.0) d/dL ESR 52 H (0-30) mm/Hr Anion Gap 12.30 H (4.00-12.00) mmol/L Est GFR (CKD-EPI) 44 L (>=60) Total Bilirubin <0.2 L (0.3-1.2) mg/dL C-Reactive Protein 4.80 H (0.00-0.80) mg/dL Microbiology - Last 24 Hours (Table) 11/29/22 09:45 Blood Culture Gram Stain - Preliminary Blood Assessment and Plan (1) Bacteremia Current Visit: Yes Status: Acute Code(s): R78.81 - BACTEREMIA SNOMED Code(s): 4978240 Plan: 1patient with recurrent Serratia marcescens bacteremia in this patient who did have extensive work-up on last admission including a PORFIRIO that was negative for any vegetation CT chest abdominal pelvis did not show any acute abnormality WBC scan did show some uptake in the colon and right lower lobe and the patient did clear her bacteremia very quickly patient complete her IV antibiotic therapy as of 11/19/2022 and did have a negative blood culture on 11/25/2022 did have a recent dental work-up now with a new fever and gram-negative bacteremia patient main complaint has been left lower jaw pain to the site of dental work-up however no significant inflammatory changes were noticed on clinical examination patient did have left upper arm PowerPort for infusion and that site looks clean with no evidence of an cellulitis abdominal was soft lungs were clear to auscultation urine has been negative 2 blood cultures has been repeated document clearance of bacteremia, patient did have a CT of the mandible did not show any evidence of osteomyelitis or an abscess with the likely focus left upper arm IV port site and may need to be removed for which vascular surgery has been consulted 3patient to continue with cefepime 2 g every 8 hours Dictation was produced using [employer] dictation software. please excuse any grammatical, word or spelling errors. Time with Patient: Less than 30
--- NOTE | 2022-12-02 09:51 | P.PN ---
Subjective Progress Note Date: 12/01/22 Principal diagnosis: Gram-negative bacteremia Patient is a 57-year-old female with multiple comorbidities and recent admission to the hospital with sedation marcescens bacteremia patient did have extensive workup including a PORFIRIO CT chest abdominal pelvis and a WBC scan without evidence of any deep infection patient did completed two-week course of IV cefepime and did have a negative blood culture on 11/25/2022 subsequently did have dental work up on 11/25/2022 developing a fever and a blood culture positive on 11/27/2022 with gram-negative bacilli for the patient has been readmitted to the hospital patient was complaining mostly of pain to the left lower jaw CT has been that did not show any osteomyelitis or abscess On today's evaluation that is 12/01/2022, patient remains to be afebrile patient is breathing comfortably on room air, the patient denies any chest pain shortness of breath or cough no nausea no vomiting no abdominal pain and no diarrhea Patient did have a white count of 5.99 and creatinine of 1.4 as of 12/01/2019and this was done today, blood cultures admission positive, blood culture repeated 11/30/2022 so far pending Objective - Vital Signs Vital signs: Vital Signs Temp 98.9 F 12/01/22 12:20 Pulse 68 12/01/22 12:20 Resp 18 12/01/22 12:20 BP 101/54 12/01/22 12:20 Pulse Ox 96 12/01/22 12:20 FiO2 Intake & Output 11/30/22 12/01/22 12/01/22 18:59 06:59 18:59 Intake Total 480 Balance 480 Intake: Oral 480 Other: Voiding Method Toilet Toilet Toilet # Voids 2 1 2 - Exam GENERAL DESCRIPTION: Middle-aged female lying in bed in no distress RESPIRATORY SYSTEM: Unlabored breathing , decreased breath sounds at bases HEART: S1 S2 regular rate and rhythm , ABDOMEN: Soft , no tenderness EXTREMITIES: No edema feet - Labs CBC & Chem 7: 11/30/22 07:53 11/30/22 07:53 Labs: Abnormal Lab Results - Last 24 Hours (Table) 11/30/22 11/30/22 Range/Units 07:53 07:53 MCHC 31.1 L (32.0-37.0) d/dL ESR 52 H (0-30) mm/Hr Anion Gap 12.30 H (4.00-12.00) mmol/L Est GFR (CKD-EPI) 44 L (>=60) Total Bilirubin <0.2 L (0.3-1.2) mg/dL C-Reactive Protein 4.80 H (0.00-0.80) mg/dL Microbiology - Last 24 Hours (Table) 11/29/22 09:45 Blood Culture Gram Stain - Preliminary Blood Blood Culture - Preliminary Gram Neg Bacilli 11/29/22 09:30 Blood Culture - Preliminary Blood Assessment and Plan (1) Bacteremia Current Visit: Yes Status: Acute Code(s): R78.81 - BACTEREMIA SNOMED Code(s): 3024306 Plan: 1patient with recurrent Serratia marcescens bacteremia in this patient who did have extensive work-up on last admission including a PORFIRIO that was negative for any vegetation CT chest abdominal pelvis did not show any acute abnormality WBC scan did show some uptake in the colon and right lower lobe and the patient did clear her bacteremia very quickly patient complete her IV antibiotic therapy as of 11/19/2022 and did have a negative blood culture on 11/25/2022 did have a recent dental work-up now with a new fever and gram-negative bacteremia patient main complaint has been left lower jaw pain to the site of dental work-up however no significant inflammatory changes were noticed on clinical examination patient did have left upper arm PowerPort for infusion and that site looks clean with no evidence of an cellulitis abdominal was soft lungs were clear to auscultation urine has been negative 2 blood cultures has been repeated document clearance of bacteremia, patient did have a CT of the mandible did not show any evidence of osteomyelitis or an ab scess with the likely focus left upper arm IV port site and may need to be removed for which vascular surgery has been consulted and did discuss with Dr. Gomez patient is considered to be very hard to get another IV access if he removes the current port and suggesting another course of IV antibiotic however we may not be able to clear the infection if The port is infected with antibiotics 3patient to continue with cefepime 2 g every 8 hours Dictation was produced using [employer] dictation software. please excuse any grammatical, word or spelling errors. Time with Patient: Less than 30
[2022-12-02] MEDS: LORazepam 2 MG/ML INJ IV PRN ×2 (12:07→17:13)
--- NOTE | 2022-12-02 12:45 | P.PN ---
Subjective Progress Note Date: 12/02/22 Principal diagnosis: Bacteremia Patient seen and examined today as a follow-up. Apparently yesterday patient was having some severe back pain and spasm with a known chronic history of back pain and ended up having a seizure. Otherwise patient without any acute changes through the night. She's been afebrile. Repeat blood cultures are currently pending. Objective - Vital Signs Vital signs: Vital Signs Temp 97.4 F L 12/02/22 07:22 Pulse 78 12/02/22 07:22 Resp 18 12/02/22 07:22 BP 108/73 12/02/22 07:22 Pulse Ox 96 12/02/22 07:47 FiO2 Intake & Output 12/01/22 12/02/22 12/02/22 18:59 06:59 18:59 Intake Total 100 Balance 100 Intake: Intake, IV Titration 100 Amount Cefepime 2 gm In Sodium 100 Chloride 0.9% 100 ml @ 25 mls/hr IVPB Q8HR [facility] Rx# :[id number] Other: Voiding Method Toilet Toilet # Voids 2 2 - Exam General appearance: The patient is alert, oriented, appears in no acute distress. HET: Head is normocephalic and atraumatic. Pupils are equal and reactive. Neck: Supple. Abdomen: Soft, nondistended. Extremities: Normal skin color and turgor. Left upper extremity port with dressing clean dry and intact without any surrounding erythema, no tenderness to palpation or drainage. Neurological: No focal deficits. Strength and sensation are grossly intact. - Labs CBC & Chem 7: 11/30/22 07:53 11/30/22 07:53 Labs: Microbiology - Last 24 Hours (Table) 11/29/22 09:30 Blood Culture - Preliminary Blood 11/30/22 07:53 Blood Culture - Preliminary Blood 11/29/22 09:45 Blood Culture Gram Stain - Preliminary Blood Blood Culture - Preliminary Gram Neg Bacilli Assessment and Plan Assessment: 1. Bacteremia, preliminary blood cultures positive for gram-negative bacilli 2. Recent dental work for crown 3. Left upper extremity port 4. History of permanent pacemaker implantation 5. History of heart valve replacement 6. History of pulmonary embolism 7. Antiphospholipid lipid antibody syndrome 8. Chronic kidney disease 9. History of seizure disorder Plan: 1. Continue supportive care 2. IV antibiotics per recommendations from infectious disease 3. Continue medical management, wait for repeat cultures to see of bacteremia cleared. This was also discussed with infectious disease who is agreeable with plan. 4. Further recommendations forthcoming per vascular surgeon. Thank you for this consultation, we will continue to follow. The impression and plan of care has been dictated as directed. Dr. Gomez I performed a history and examination of this patient, discussed the same with the dictator. I agree with the dictator's note ,documented as a scribe. Any additional findings or plans will be noted.
[2022-12-02 13:47] LABS: African American GFR (CKD) 48 (>60 ml/min/1.73 sqM); Anion Gap 13 mmol/L; Blood Urea Nitrogen 27 mg/dL (7-17); Calcium 9.6 mg/dL (8.4-10.2); Carbon Dioxide 24 mmol/L (22-30); Chloride 99 mmol/L (98-107); Glucose 124 mg/dL (74-99); Non-African American GFR(CKD) 42 (>60 ml/min/1.73 sqM); Sodium 136 mmol/L (137-145)
[2022-12-02 13:58] LABS: Potassium 5.2 mmol/L (3.5-5.1)
[2022-12-02 16:06] LABS: Basophils % (A) 0 %; Eosinophils # (A) 0.1 k/uL (0-0.7); Eosinophils % (A) 2 %; HCT 37.8 % (34.0-46.0); HGB 12.6 gm/dL (11.4-16.0); Lymphocytes # (A) 0.8 k/uL (1.0-4.8); Lymphocytes % (A) 13 %; MCH 28.6 pg (25.0-35.0); MCHC 33.4 g/dL (31.0-37.0); MCV 85.8 fL (80.0-100.0); Mean Platelet Volume 9.7; Monocytes # (A) 0.4 k/uL (0-1.0); Monocytes % (A) 7 %; Neutrophils # (A) 4.6 k/uL (1.3-7.7); Neutrophils % (A) 77 %; Platelet Count 231 k/uL (150-450); RBC 4.41 m/uL (3.80-5.40); RDW 14.6 % (11.5-15.5)
[2022-12-02] MEDS: SODIUM CHLORIDE 0.9% 1,000 ML IV SCH (18:34)
[2022-12-02] MEDS ORDERED: ALTEPLASE 2 MG VIAL (CATHFLO) IV STA (20:41)
[2022-12-02] MEDS: ATORVASTATIN 40 MG TAB PO SCH (21:36)
--- NOTE | 2022-12-02 22:07 | P.PN ---
Subjective Progress Note Date: 12/02/22 Principal diagnosis: Gram-negative bacteremia Patient is a 57-year-old female with multiple comorbidities and recent admission to the hospital with sedation marcescens bacteremia patient did have extensive workup including a PORFIRIO CT chest abdominal pelvis and a WBC scan without evidence of any deep infection patient did completed two-week course of IV cefepime and did have a negative blood culture on 11/25/2022 subsequently did have dental work up on 11/25/2022 developing a fever and a blood culture positive on 11/27/2022 with gram-negative bacilli for the patient has been readmitted to the hospital patient was complaining mostly of pain to the left lower jaw CT has been that did not show any osteomyelitis or abscess On today's evaluation that is 12/02/2022 the patient is afebrile today however the patient mentioned not feeling well and may have a seizure activity patient denies any headache denies any chest pain or shortness of breath or cough some nausea but no vomiting no abdominal pain or any diarrhea. Patient did have a white count of 6.0 creatinine despite elevated 1.39 blood culture 11/29/2022 positive for Serratia marcescens blood cultures 11/30/2022 so far negative Objective - Vital Signs Vital signs: Vital Signs Temp 98.9 F 12/02/22 12:29 Pulse 101 H 12/02/22 12:29 Resp 18 12/02/22 12:29 BP 119/73 12/02/22 12:29 Pulse Ox 94 L 12/02/22 12:29 FiO2 Intake & Output 12/01/22 12/02/22 12/02/22 18:59 06:59 18:59 Intake Total 100 Balance 100 Intake: Intake, IV Titration 100 Amount Cefepime 2 gm In Sodium 100 Chloride 0.9% 100 ml @ 25 mls/hr IVPB Q8HR [facility] Rx# :[id number] Other: Voiding Method Toilet Toilet Toilet # Voids 2 2 - Exam GENERAL DESCRIPTION: Middle-aged female lying in bed in no distress RESPIRATORY SYSTEM: Unlabored breathing , decreased breath sounds at bases HEART: S1 S2 regular rate and rhythm , ABDOMEN: Soft , no tenderness EXTREMITIES: No edema feet - Labs CBC & Chem 7: 12/02/22 12:54 12/02/22 12:54 Labs: Microbiology - Last 24 Hours (Table) 11/29/22 09:45 Blood Culture Gram Stain - Final Blood Blood Culture - Final Serratia marcescens 11/29/22 09:30 Blood Culture - Preliminary Blood 11/30/22 07:53 Blood Culture - Preliminary Blood Assessment and Plan (1) Bacteremia Current Visit: Yes Status: Acute Code(s): R78.81 - BACTEREMIA SNOMED Code(s): 8772348 Plan: 1patient with recurrent Serratia marcescens bacteremia in this patient who did have extensive work-up on last admission including a PORFIRIO that was negative for any vegetation CT chest abdominal pelvis did not show any acute abnormality WBC scan did show some uptake in the colon and right lower lobe and the patient did clear her bacteremia very quickly patient complete her IV antibiotic therapy as of 11/19/2022 and did have a negative blood culture on 11/25/2022 did have a recent dental work-up now with a new fever and gram-negative bacteremia patient main complaint has been left lower jaw pain to the site of dental work-up however no significant inflammatory changes were noticed on clinical examination patient did have left upper arm PowerPort for infusion and that site looks clean with no evidence of an cellulitis abdominal was soft lungs were clear to auscultation urine has been negative 2 blood cultures has been repeated document clearance of bacteremia, patient did have a CT of the mandible did not show any evidence of osteomyelitis or an abscess with the likely focus left upper arm IV port site and may need to be removed for which vascular surgery has been consulted and did discuss with Dr. Gomez patient is considered to be very hard to get another IV access if she removes the current port and suggesting another course of IV antibiotic 3-At this point we will continue patient on cefepime 2 g every 8 hours and follow-up on the repeat blood cultures if the blood culture from 11/30/2022 also come back positive then the patient will have removal of the port during this admission this has been discussed in detail with the patient question concerns have been answered Dictation was produced using [employer] dictation software. please excuse any grammatical, word or spelling errors. Time with Patient: Less than 30
[2022-12-03] MEDS: diphenhydrAMINE 50 MG/ML 1 ML VIAL IVP PRN ×3 (00:51→15:45)
[2022-12-03] MEDS: CEFEPIME 2 GM in SODIUM CHLORIDE 0.9% 100 ML IVPB SCH ×3 (00:51→15:42)
[2022-12-03] MEDS: HYDROmorphone 0.5 MG/0.5 ML SYRINGE IVP PRN ×3 (03:18→13:52)
[2022-12-03] MEDS: SPIRONOLACTONE 25 MG TAB PO SCH (08:46)
[2022-12-03] MEDS: ENOXAPARIN 40 MG/0.4 ML SYRINGE SQ SCH (08:58)
[2022-12-03] MEDS: SERTRALINE 100 MG TAB PO SCH (08:58)
[2022-12-03] MEDS: PANTOPRAZOLE 40 MG TABLET PO SCH (08:58)
[2022-12-03] MEDS: busPIRone HCl 5 MG TAB PO SCH (08:58)
[2022-12-03] MEDS: POTASSIUM CHLORIDE ER 20 MEQ TAB.ER PO SCH ×2 (08:58→09:16)
[2022-12-03] MEDS: LACOSAMIDE 50 MG TABLET PO SCH (08:59)
[2022-12-03] MEDS: GABAPENTIN 300 MG CAP PO SCH ×2 (08:59→13:35)
[2022-12-03 09:02] LABS: Basophils # (A) 0.03 X 10*3/uL (0.00-0.10); Basophils % (A) 0.4 %; Eosinophils # (A) 0.08 X 10*3/uL (0.04-0.35); HCT 33.2 % (37.2-46.3); HGB 10.8 d/dL (12.0-15.0); Lymphocytes # (A) 0.51 X 10*3/uL (0.90-5.00); Lymphocytes % (A) 6.1 %; MCH 28.1 pg (27.0-32.0); MCHC 32.5 d/dL (32.0-37.0); MCV 86.2 FL (80.0-97.0); Mean Platelet Volume 10.9 FL (9.5-12.2); Monocytes # (A) 0.56 X 10*3/uL (0.20-1.00); Monocytes % (A) 6.7 %; NRBC Per 100 WBC 0 X 10*3/uL (0.00-0.01); Neutrophils # (A) 7.09 X 10*3/uL (1.80-7.70); Neutrophils % (A) 85.4 %; Platelet Count 223 X 10*3/uL (140-440); RBC 3.85 X 10*6/uL (4.10-5.20); RDW 13.9 % (11.5-14.5)
[2022-12-03] MEDS: HYDROmorphone 1 MG/ML 1 ML SYRINGE IVP PRN (09:03)
[2022-12-03] MEDS: ZONISAMIDE 100 MG CAP PO SCH (09:04)
[2022-12-03] MEDS: FLUDROCORTISONE 0.1 MG TAB PO SCH (09:04)
[2022-12-03] MEDS: BUMETANIDE 1 MG TAB PO SCH (09:04)
[2022-12-03 09:15] LABS: ALT 23 U/L (8-44); AST 21 U/L (13-35); Albumin 4.1 d/dL (3.8-4.9); Albumin/Globulin Ratio 1.78 Ratio (1.60-3.17); Alkaline Phosphatase 64 U/L (41-126); BUN/Creat Ratio 16.13 Ratio (12.00-20.00); Blood Urea Nitrogen 24.2 mg/dL (9.0-27.0); Calcium 9.5 mg/dL (8.7-10.3); Chloride 100 mmol/L (96-109); Globulin 2.3 d/dL (1.6-3.3); Glucose 111 mg/dL (70-110); Sodium 135 mmol/L (135-145); Total Bilirubin 0.3 mg/dL (0.3-1.2); Total Protein 6.4 d/dL (6.2-8.2)
[2022-12-03] MEDS: SODIUM CHLORIDE 0.9% 1,000 ML IV SCH (09:16)
[2022-12-03] MEDS: LORazepam 2 MG/ML INJ IV PRN (09:31)
[2022-12-03 12:10] VITALS: BP 104/69; PULSE 71; RESP 18; TEMP 98.2
--- NOTE | 2022-12-03 12:23 | P.PN ---
Subjective Progress Note Date: 12/03/22 Principal diagnosis: Bacteremia Patient seen and examined today as a follow-up. Patient appeared to possibly be having a seizure when I listen to assess patient. Nursing was getting ready to administer Ativan. Otherwise patient without any acute changes through the night. She's been afebrile. Repeat blood cultures are negative at 48 hours. No leukocytosis. Objective - Vital Signs Vital signs: Vital Signs Temp 98.7 F 12/03/22 07:08 Pulse 73 12/03/22 09:37 Resp 16 12/03/22 09:37 BP 125/59 12/03/22 09:37 Pulse Ox 97 12/03/22 09:37 FiO2 Intake & Output 12/02/22 12/03/22 12/03/22 18:59 06:59 18:59 Intake Total 100 Balance 100 Intake: Intake, IV Titration 100 Amount Cefepime 2 gm In Sodium 100 Chloride 0.9% 100 ml @ 25 mls/hr IVPB Q8HR [facility] Rx# :[id number] Other: Voiding Method Toilet Toilet # Voids 1 2 - Exam General appearance: The patient was lying in bed with her eyes closed, with spastic movements. HET: Head is normocephalic and atraumatic. Neck: Supple. Abdomen: Soft, nondistended. Extremities: Normal skin color and turgor. Left upper extremity port with dressing clean dry and intact without any surrounding erythema. Neurological: The patient appeared to be having possible seizure. - Labs CBC & Chem 7: 12/03/22 06:10 12/03/22 06:10 Labs: Abnormal Lab Results - Last 24 Hours (Table) 12/02/22 12/02/22 12/03/22 Range/Units 12:54 12:54 06:10 RBC 3.85 L (4.10-5.20) X 10*6/uL Hgb 10.8 L (12.0-15.0) d/dL Hct 33.2 L (37.2-46.3) % Lymphocytes # 0.8 L 0.51 L (1.0-4.8) k/uL Sodium 136 L (137-145) mmol/L Potassium 5.2 H (3.5-5.1) mmol/L BUN 27 H (7-17) mg/dL Creatinine 1.39 H (0.52-1.04) mg/dL Est GFR (CKD-EPI) (>=60) Glucose 124 H (74-99) mg/dL 12/03/22 Range/Units 06:10 RBC (4.10-5.20) X 10*6/uL Hgb (12.0-15.0) d/dL Hct (37.2-46.3) % Lymphocytes # (1.0-4.8) k/uL Sodium (137-145) mmol/L Potassium (3.5-5.1) mmol/L BUN (7-17) mg/dL Creatinine (0.52-1.04) mg/dL Est GFR (CKD-EPI) 40 L (>=60) Glucose 111 H (74-99) mg/dL Microbiology - Last 24 Hours (Table) 11/29/22 09:30 Blood Culture - Preliminary Blood 11/30/22 07:53 Blood Culture - Preliminary Blood 11/29/22 09:45 Blood Culture Gram Stain - Final Blood Blood Culture - Final Serratia marcescens Assessment and Plan Assessment: 1. Bacteremia, repeat cultures negative at 48 hours 2. Recent dental work for crown 3. Left upper extremity port 4. History of permanent pacemaker implantation 5. History of heart valve replacement 6. History of pulmonary embolism 7. Antiphospholipid lipid antibody syndrome 8. Chronic kidney disease 9. History of seizure disorder Plan: 1. Continue supportive care 2. IV antibiotics per recommendations from infectious disease 3. Continue medical management, wait for repeat cultures to see of bacteremia cleared. This was also discussed with infectious disease who is agreeable with plan. 4. Further recommendations forthcoming per vascular surgeon. Thank you for this consultation, we will continue to follow. The impression and plan of care has been dictated as directed. I performed a history and examination of this patient, discussed the same with the dictator. I agree with the dictator's note ,documented as a scribe. Any additional findings or plans will be noted.
--- NOTE | 2022-12-03 14:53 | PN ---
PROGRESS NOTE SUBJECTIVE: A 57-year-old white female sent home on IV cefepime for 2 weeks. She had a possible pseudoseizure while in the hospital due to anxiety. Medications were adjusted. OBJECTIVE: VITAL SIGNS: Reviewed. GENERAL: She is sitting up, giving appropriate answers. Alert and oriented x3. CARDIOVASCULAR: S1, S2. PSYCH: Fair mood and affect. LUNGS: Clear. GI: Soft. HEMATOLOGY: Negative Homans. Migraines have improved. Discussed with her breathing treatments and oxygen which will be needed at home. Continue current treatment. ASSESSMENT AND PLAN: Pseudoseizures. Fourth time blood cultures are positive for Serratia marcescens into the left port and then do some blood cultures of this port or some biopsies of the port versus 2 more weeks of antibiotics and re-culturing her. Prognosis is guarded. to have the left port removed. She is in agreement with us whenever they can do it. MMODL / IJN: [id number] /
[2022-12-03] MEDS ORDERED: POTASSIUM CHLORIDE ER 20 MEQ TAB.ER PO SCH (21:00)
--- NOTE | 2022-12-05 20:23 | PN ---
PROGRESS NOTE Bacteremia due to infectious process, infected port most likely cause. MMODL / IJN: [id number] /
--- NOTE | 2022-12-10 14:49 | P.PN ---
Subjective Progress Note Date: 12/03/22 Principal diagnosis: Gram-negative bacteremia Patient is a 57-year-old female with multiple comorbidities and recent admission to the hospital with sedation marcescens bacteremia patient did have extensive workup including a PORFIRIO CT chest abdominal pelvis and a WBC scan without evidence of any deep infection patient did completed two-week course of IV cefepime and did have a negative blood culture on 11/25/2022 subsequently did have dental work up on 11/25/2022 developing a fever and a blood culture positive on 11/27/2022 with gram-negative bacilli for the patient has been readmitted to the hospital patient was complaining mostly of pain to the left lower jaw CT has been that did not show any osteomyelitis or abscess On today's evaluation that is 12/03/2022 the patient remains to be afebrile , the patient denies any headache or 44B, the patient denies denies any chest pain or shortness of breath or cough some nausea but no vomiting no abdominal pain or any diarrhea. Patient did have a white count o 8.30, the patient creatinine is 1.5 today, blood culture 11/29/2022 positive for Serratia marcescens blood cultures 11/30/2022, as well as 12/02/2022 so far negative Objective - Vital Signs Vital signs: Vital Signs Temp 98.2 F 12/03/22 11:50 Pulse 71 12/03/22 11:50 Resp 18 12/03/22 11:50 BP 104/69 12/03/22 11:50 Pulse Ox 96 12/03/22 11:50 FiO2 Intake & Output 12/02/22 12/03/22 12/03/22 18:59 06:59 18:59 Intake Total 100 Balance 100 Intake: Intake, IV Titration 100 Amount Cefepime 2 gm In Sodium 100 Chloride 0.9% 100 ml @ 25 mls/hr IVPB Q8HR [facility] Rx# :[id number] Other: Voiding Method Toilet Toilet # Voids 1 2 - Exam GENERAL DESCRIPTION: Middle-aged female lying in bed in no distress RESPIRATORY SYSTEM: Unlabored breathing , decreased breath sounds at bases HEART: S1 S2 regular rate and rhythm , ABDOMEN: Soft , no tenderness EXTREMITIES: No edema feet - Labs CBC & Chem 7: 12/03/22 06:10 12/03/22 06:10 Labs: Abnormal Lab Results - Last 24 Hours (Table) 12/02/22 12/02/22 12/03/22 Range/Units 12:54 12:54 06:10 RBC 3.85 L (4.10-5.20) X 10*6/uL Hgb 10.8 L (12.0-15.0) d/dL Hct 33.2 L (37.2-46.3) % Lymphocytes # 0.8 L 0.51 L (1.0-4.8) k/uL Sodium 136 L (137-145) mmol/L Potassium 5.2 H (3.5-5.1) mmol/L BUN 27 H (7-17) mg/dL Creatinine 1.39 H (0.52-1.04) mg/dL Est GFR (CKD-EPI) (>=60) Glucose 124 H (74-99) mg/dL 12/03/22 Range/Units 06:10 RBC (4.10-5.20) X 10*6/uL Hgb (12.0-15.0) d/dL Hct (37.2-46.3) % Lymphocytes # (1.0-4.8) k/uL Sodium (137-145) mmol/L Potassium (3.5-5.1) mmol/L BUN (7-17) mg/dL Creatinine (0.52-1.04) mg/dL Est GFR (CKD-EPI) 40 L (>=60) Glucose 111 H (74-99) mg/dL Microbiology - Last 24 Hours (Table) 11/29/22 09:30 Blood Culture - Preliminary Blood 11/30/22 07:53 Blood Culture - Preliminary Blood 11/29/22 09:45 Blood Culture Gram Stain - Final Blood Blood Culture - Final Serratia marcescens Assessment and Plan (1) Bacteremia Status: Acute Code(s): R78.81 - BACTEREMIA SNOMED Code(s): 7635574 Plan: 1patient with recurrent Serratia marcescens bacteremia in this patient who did have extensive work-up on last admission including a PORFIRIO that was negative for any vegetation CT chest abdominal pelvis did not show any acute abnormality WBC scan did show some uptake in the colon and right lower lobe and the patient did clear her bacteremia very quickly patient complete her IV antibiotic therapy as of 11/19/2022 and did have a negative blood culture on 11/25/2022 did have a recent dental work-up now with a new fever and gram-negative bacteremia patient main complaint has been left lower jaw pain to the site of dental work-up however no significant inflammatory changes were noticed on clinical examination patient did have left upper arm PowerPort for infusion and that site looks clean with no evidence of an cellulitis abdominal was soft lungs were clear to auscultation urine has been negative 2 blood cultures has been repeated document clearance of bacteremia, patient did have a CT of the mandible did not show any evidence of osteomyelitis or an abscess with the likely focus left upper arm IV port site and may need to be removed for which vascular surgery has been consulted and did discuss with Dr. Gomez patient is considered to be very hard to get another IV access if she removes the current port and suggesting another course of IV antibiotic to see if that will clear her bacteremia 3-At this point we will continue patient on cefepime 2 g every 8 hours if the repeat cultures remains to be negative may consider another course of IV cefepime however if repeat cultures came back positive, the port will have to come out, this was explained to the patient in layman terms and she agrees Dictation was produced using [employer] dictation software. please excuse any grammatical, word or spelling errors. Time with Patient: Less than 30
== END 2022-12-03 17:47 | disposition home health service (06) | DRG 315 ==
LOC: EC 08:09 → 5NMEDONC 08:33
PROVIDERS: ADMIT Family Medicine; ATTEND Family Medicine
DX: T80.211A Bloodstream infection due to central venous catheter, initial encounter (principal); D68.61 Antiphospholipid syndrome; I13.10 Hypertensive heart and chronic kidney disease without heart failure, with stage 1 through stage 4 chronic kidney disease, or unspecified chronic kidney disease; J44.9 Chronic obstructive pulmonary disease, unspecified; N18.30 Chronic kidney disease, stage 3 unspecified; G40.909 Epilepsy, unspecified, not intractable, without status epilepticus; Z28.310 Unvaccinated for COVID-19; G43.909 Migraine, unspecified, not intractable, without status migrainosus; B96.89 Other specified bacterial agents as the cause of diseases classified elsewhere; G89.29 Other chronic pain; M51.36 Other intervertebral disc degeneration, lumbar region; G25.81 Restless legs syndrome; I25.10 Atherosclerotic heart disease of native coronary artery without angina pectoris; F41.9 Anxiety disorder, unspecified; Z79.01 Long term (current) use of anticoagulants; Z79.51 Long term (current) use of inhaled steroids; Z79.52 Long term (current) use of systemic steroids; Z79.899 Other long term (current) drug therapy; Z95.0 Presence of cardiac pacemaker; Z95.2 Presence of prosthetic heart valve; Z86.711 Personal history of pulmonary embolism; Z86.19 Personal history of other infectious and parasitic diseases; Z88.5 Allergy status to narcotic agent; Z88.0 Allergy status to penicillin; Z88.7 Allergy status to serum and vaccine; Z88.8 Allergy status to other drugs, medicaments and biological substances; Z88.1 Allergy status to other antibiotic agents; Z91.040 Latex allergy status
CPT/HCPCS: 70486; 71046; 80048; 80053; 81001; 83605; 85025; 85652; 86140; 87040; 87077; 87186; 94760; 96365; 96366; 96375; 99285

== ENCOUNTER 2022-12-08 16:58 | Emergency (ER) | payer BC, MEDICARE ==
[2022-12-08] MEDS ORDERED: SODIUM CHLORIDE 0.9% 500 ML 500 ML IV STA ×2 (18:20→20:46)
[2022-12-08] MEDS ORDERED: LORazepam 2 MG/ML INJ IV STA (18:21)
[2022-12-08] MEDS ORDERED: HYDROmorphone 1 MG/ML 1 ML SYRINGE IVP STA (18:21)
--- NOTE | 2022-12-08 18:22 | ED ---
Weakness HPI - General Chief complaint: Weakness Stated complaint: poss low potassium-ams Time Seen by Provider: 12/08/22 18:07 Source: patient, family Mode of arrival: wheelchair Limitations: physical limitation - History of Present Illness Initial comments: This is a 57-year-old female to the emergency department for evaluation patient presents today for evaluation of weakness not feeling well lightheadedness dizziness and believes she has a low potassium. Patient is a long complex recent medical history of recent hospital admissions and antibiotics. Patient is concern for low potassium level here in the ER, shaking weak with chronic pain. Patient denying current fevers. No travel history no sick contacts patient feels off shaky and feels like he may have a seizure. MD Complaint: generalized weakness, lack of energy -: days(s) Location: generalized Severity: moderate Severity scale (1-10): 6 Quality: aching Consistency: constant Improves with: none Worsens with: none Context: recent illness, history of similar Associated Symptoms: nausea/vomiting - Related Data Home Medications Medication Instructions Recorded Confirmed Atorvastatin [Lipitor] 40 mg PO HS 09/24/21 11/29/22 Cholestyramine (with Sugar) 4 gm PO DAILY PRN 09/24/21 11/29/22 [Cholestyramine Packet] Gabapentin 300 mg PO QID 09/24/21 11/29/22 Sertraline [Zoloft] 200 mg PO DAILY 09/24/21 11/29/22 Ubrogepant [Ubrelvy] 100 mg PO BID PRN 09/24/21 11/29/22 rOPINIRole HCL [Requip] 2 mg PO HS 09/24/21 11/29/22 Esomeprazole Magnesium [NexIUM] 40 mg PO DAILY 03/16/22 11/29/22 Botox 200unit Injection 1 dose INJ Q84D 04/02/22 11/29/22 Meclizine [Antivert] 12.5 mg PO Q8H PRN 04/02/22 11/29/22 Diphenhydramine 50mg/Ml Vial 50 mg IM Q6H PRN 04/18/22 11/29/22 Apixaban [Eliquis] 5 mg PO BID 05/29/22 11/29/22 Spironolactone [Aldactone] 50 mg PO TID 06/11/22 11/29/22 busPIRone HCl [Buspar] 5 mg PO BID 06/11/22 11/29/22 Bumetanide [BUMEX] 2 mg PO DAILY 06/24/22 11/29/22 Lidocaine 5% Patch [Lidoderm 5% 1 patch TRANSDERM DAILY PRN 08/26/22 11/29/22 Patch] Fludrocortisone [Florinef] 0.1 mg PO DAILY 09/20/22 11/29/22 Metoprolol Succinate (ER) [Toprol 25 mg PO DAILY PRN 10/29/22 11/29/22 XL] Midodrine [ProAmatine] 5 mg PO TID PRN 10/29/22 11/29/22 HYDROcodone/APAP 5-325MG [[place] 1 tab PO TID 11/29/22 11/29/22 5-325] Levalbuterol Nebulized [Xopenex 0.31 mg INHALATION RT-TID PRN 11/29/22 11/29/22 Nebulized (Pediatric)] Ondansetron [Zofran] 4 mg PO Q8H PRN 11/29/22 11/29/22 Previous Rx's Medication Instructions Recorded Dicyclomine [Bentyl] 20 mg PO TID PRN #30 tablet 04/30/22 Zonisamide [Zonegran] 100 mg PO Q12HR 30 Days #60 cap 07/26/22 Lacosamide [Vimpat] 50 mg PO BID tab 11/05/22 Nystatin 100,000 Unit/gm Powd 1 applic TOPICAL BID 60 Days #60 11/05/22 [Mycostatin Powder] each Nystatin 100,000 Unit/ml Susp 500,000 unit PO QID 30 Days #300 ml 11/05/22 [Mycostatin Oral Susp] Cefepime [Maxipime] 2 gm IVPB Q8HR each 12/03/22 Potassium Chloride ER [K-Dur 20] 20 meq PO BID tab 12/03/22 Allergies Allergy/AdvReac Type Severity Reaction Status Date / Time Penicillins Allergy Severe Anaphylaxis Verified 12/08/22 17:50 vancomycin Allergy Severe Swelling Verified 12/08/22 17:50 in lips clindamycin Allergy Anaphylaxis Verified 12/08/22 17:50 dexamethasone [From Decadron] Allergy Unknown Verified 12/08/22 17:50 Influenza Virus Vaccines Allergy Unknown Verified 12/08/22 17:50 latex Allergy Unknown Verified 12/08/22 17:50 morphine Allergy Unknown Verified 12/08/22 17:50 prochlorperazine Allergy Unknown Verified 12/08/22 17:50 [From Compazine] galcanezumab-gnlm AdvReac Confusion, Verified 12/08/22 17:50 [From Emgality Pen] increased blood pressure metoclopramide [From Reglan] AdvReac "felt like Verified 12/08/22 17:50 I needed to jump out of my skin" Review of Systems ROS Statement: Those systems with pertinent positive or pertinent negative responses have been documented in the HPI. ROS Other: All systems not noted in ROS Statement are negative. 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 for low K+ History of Any Multi-Drug Resistant Organisms: C-DIFF Date of last positivie culture/infection: 2021 MDRO Source:: Stool Past Surgical History: Back Surgery, Breast Surgery, Cardiac Valve Replacement, Section, Cholecystectomy, Heart Catheterization, Hysterectomy, Pacemaker Additional Past Surgical History / Comment(s): pacemaker d/t bradycardia/hypotension with last one place in 2013 in [place], [place], 3 lower back surgeries, bilateral breast reduction. 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 Past Anesthesia/Blood Transfusion Reactions: No Reported Reaction Type of Cardiac Device: Permanent Pacemaker, Unknown Device Placement Date:: 2012 Past Psychological History: Anxiety Smoking Status: Never smoker Past Alcohol Use History: None Reported Past Drug Use History: Marijuana - Past Family History Mother Additional Family Medical History / Comment(s): Mother at the age of 49 yrs after surgery for silicon breast implants with a leak that caused ARDS and DIC per pt Father Family Medical History: Cancer, Hyperlipidemia, Hypertension Additional Family Medical History / Comment(s): Father is a colon cancer survivor. General Exam Limitations: physical limitation General appearance: alert, in no apparent distress Head exam: Present: atraumatic, normocephalic, normal inspection Eye exam: Present: normal appearance, PERRL, EOMI. Absent: scleral icterus, conjunctival injection, periorbital swelling ENT exam: Present: normal exam, mucous membranes moist Neck exam: Present: normal inspection. Absent: tenderness, meningismus, lymphadenopathy Respiratory exam: Present: normal lung sounds bilaterally. Absent: respiratory distress, wheezes, rales, rhonchi, stridor Cardiovascular Exam: Present: regular rate, normal rhythm, normal heart sounds. Absent: systolic murmur, diastolic murmur, rubs, gallop, clicks GI/Abdominal exam: Present: soft, normal bowel sounds. Absent: distended, tenderness, guarding, rebound, rigid Extremities exam: Present: normal inspection, full ROM, normal capillary refill. Absent: tenderness, pedal edema, joint swelling, calf tenderness Back exam: Present: normal inspection Neurological exam: Present: alert, oriented X3, CN II-XII intact Psychiatric exam: Present: normal affect, normal mood Skin exam: Present: warm, dry, intact, normal color. Absent: rash Course Vital Signs 12/08/22 12/08/22 12/08/22 17:47 20:00 21:58 Temperature 98.9 F 98.7 F Pulse Rate 80 77 90 Respiratory 22 20 18 Rate Blood Pressure 106/71 130/84 131/75 O2 Sat by Pulse 99 97 Oximetry - Reevaluation(s) Reevaluation #1: 12/08/22 20:29 Medical record is reviewed Reevaluation #2: 12/08/22 20:29 Patient symptoms are unchanged Reevaluation #3: 12/08/22 20:29 Patient informed of results and questions answered Reevaluation #4: 12/08/22 20:29 Was pt. sent in by a medical professional or institution (, PA, BOARDER HAND, urgent care, hospital, or retirement...) When possible be specific @ -no Did you speak to anyone other than the patient for history (EMS, parent, family, police, friend...)? What history was obtained from this source @ -no Did you review nursing and triage notes (agree or disagree)? Why? @ -agree Are old charts reviewed (outside hosp., previous admission, EMS record, old EKG, old radiological studies, urgent care reports/EKG's, retirement records)? Report findings @ -yes Differential Diagnosis (chest pain, altered mental status, abdominal pain women, abdominal pain men, vaginal bleeding, weakness, fever, dyspnea, syncope, headache, dizziness, GI bleed, back pain, seizure, CVA, palpatations, mental health, musculoskeletal)? @ -prior EKG interpreted by me (3pts min.). @ -yes X-rays interpreted by me (1pt min.). @ -no CT interpreted by me (1pt min.). @ -no U/S interpreted by me (1pt. min.). @ -no What testing was considered but not performed or refused? (CT, X-rays, U/S, labs)? Why? @ -none What meds were considered but not given or refused? Why? @ -none Did you discuss the management of the patient with other professionals (professionals i.e. , PA, BOARDER HAND, lab, RT, psych nurse, social media campaign manager, internal medicine specialist, teacher, surveillance sensor officer, registered nurse hh case manager)? Give summary @ -no Was smoking cessation discussed for >3mins.? @ -no Was critical care preformed (if so, how long)? @ -no Were there social determinants of health that impacted care today? How? (Homelessness, low income, unemployed, alcoholism, drug addiction, transportati on, low edu. Level, literacy, decrease access to med. care, long term, rehab)? @ -none Was there de-escalation of care discussed even if they declined (Discuss DNR or withdrawal of care, Hospice)? DNR status @ -no What co-morbidities impacted this encounter? (DM, HTN, Smoking, COPD, CAD, Cancer, CVA, ARF, Chemo, Hep., AIDS, mental health diagnosis, sleep apnea, morbid obesity)? @ -none Was patient admitted / discharged? Hospital course, mention meds given and route, prescriptions, significant lab abnormalities, going to OR and other pertinent info. @ - 57 female to the emergency department for evaluation presents today for evaluation of weakness may have low potassium level. Patient has normal lab tests here in the ER feels well and can be discharged home Discharge Undiagnosed new problem with uncertain prognosis? @ -no Drug Therapy requiring intensive monitoring for toxicity (Heparin, Nitro, Insulin, Cardizem)? @ -no Were any procedures done? @ -no Diagnosis/symptom? @ -Weakness Acute, or Chronic, or Acute on Chronic? @ -Acute Uncomplicated (without systemic symptoms) or Complicated (systemic symptoms)? @ -Complicated Side effects of treatment? @ -no Exacerbation, Progression, or Severe Exacerbation? @ -exacerbation Poses a threat to life or bodily function? How? (Chest pain, USA, CO, pneumonia, PE, COPD, DKA, ARF, appy, cholecystitis, CVA, Diverticulitis, Homicidal, S uicidal, threat to staff... and all critical care pts) @ -no Reevaluation #5: 12/08/22 20:29 Differential Weakness: Hypoglycemia, shock, sepsis, hyponatremia, anemia, infection, CO, ETOH, adverse medicine reaction, overdose, stroke, this is not meant to be an all-inclusive list. EKG Findings - EKG Comments: EKG Findings:: EKG is sinus 80 WV 117 QRS 84 QTc 418 - EKG Results: EKG: interpreted by JOSE Medical Decision Making - Medical Decision Making 57 female to the emergency department for evaluation presents today for evaluation of weakness may have low potassium level. Patient has normal lab tests here in the ER feels well and can be discharged home - Lab Data Result diagrams: 12/08/22 18:30 12/08/22 18:30 Lab Results 12/08/22 12/08/22 12/08/22 Range/Units 18:30 18:30 18:30 WBC 10.3 (3.8-10.6) k/uL RBC 4.56 (3.80-5.40) m/uL Hgb 12.8 (11.4-16.0) gm/dL Hct 38.2 (34.0-46.0) % MCV 83.7 (80.0-100.0) fL MCH 28.1 (25.0-35.0) pg MCHC 33.5 (31.0-37.0) g/dL RDW 14.6 (11.5-15.5) % Plt Count 276 (150-450) k/uL MPV 8.0 Neutrophils % 77 % Lymphocytes % 14 % Monocytes % 5 % Eosinophils % 2 % Basophils % 0 % Neutrophils # 7.9 H (1.3-7.7) k/uL Lymphocytes # 1.5 (1.0-4.8) k/uL Monocytes # 0.5 (0-1.0) k/uL Eosinophils # 0.2 (0-0.7) k/uL Basophils # 0.0 (0-0.2) k/uL PT 12.0 (9.0-12.0) sec INR 1.2 H (<1.2) APTT 35.8 H (22.0-30.0) sec Sodium 137 (137-145) mmol/L Potassium 4.8 (3.5-5.1) mmol/L Chloride 98 (98-107) mmol/L Carbon Dioxide 25 (22-30) mmol/L Anion Gap 14 mmol/L BUN 30 H (7-17) mg/dL Creatinine 1.93 H (0.52-1.04) mg/dL Est GFR (CKD-EPI)AfAm 33 (>60 ml/min/1.73 sqM) Est GFR (CKD-EPI)NonAf 28 (>60 ml/min/1.73 sqM) Glucose 93 (74-99) mg/dL Calcium 10.2 (8.4-10.2) mg/dL Phosphorus 3.3 (2.5-4.5) mg/dL Magnesium 2.2 (1.6-2.3) mg/dL Total Bilirubin 0.6 (0.2-1.3) mg/dL AST 26 (14-36) U/L ALT 22 (4-34) U/L Alkaline Phosphatase 81 (38-126) U/L Troponin I (0.000-0.034) ng/mL Total Protein 8.8 H (6.3-8.2) g/dL Albumin 4.8 (3.5-5.0) g/dL 12/08/22 Range/Units 18:30 WBC (3.8-10.6) k/uL RBC (3.80-5.40) m/uL Hgb (11.4-16.0) gm/dL Hct (34.0-46.0) % MCV (80.0-100.0) fL MCH (25.0-35.0) pg MCHC (31.0-37.0) g/dL RDW (11.5-15.5) % Plt Count (150-450) k/uL MPV Neutrophils % % Lymphocytes % % Monocytes % % Eosinophils % % Basophils % % Neutrophils # (1.3-7.7) k/uL Lymphocytes # (1.0-4.8) k/uL Monocytes # (0-1.0) k/uL Eosinophils # (0-0.7) k/uL Basophils # (0-0.2) k/uL PT (9.0-12.0) sec INR (<1.2) APTT (22.0-30.0) sec Sodium (137-145) mmol/L Potassium (3.5-5.1) mmol/L Chloride (98-107) mmol/L Carbon Dioxide (22-30) mmol/L Anion Gap mmol/L BUN (7-17) mg/dL Creatinine (0.52-1.04) mg/dL Est GFR (CKD-EPI)AfAm (>60 ml/min/1.73 sqM) Est GFR (CKD-EPI)NonAf (>60 ml/min/1.73 sqM) Glucose (74-99) mg/dL Calcium (8.4-10.2) mg/dL Phosphorus (2.5-4.5) mg/dL Magnesium (1.6-2.3) mg/dL Total Bilirubin (0.2-1.3) mg/dL AST (14-36) U/L ALT (4-34) U/L Alkaline Phosphatase (38-126) U/L Troponin I <0.012 (0.000-0.034) ng/mL Total Protein (6.3-8.2) g/dL Albumin (3.5-5.0) g/dL - EKG Data -: EKG Interpreted by Me Disposition Clinical Impression: Weakness Disposition: HOME SELF-CARE Condition: Good Instructions (If sedation given, give patient instructions): Weakness (ED) Is patient prescribed a controlled substance at d/c from ED?: No Referrals: Franklin Hassan MD [Primary Care Provider] - 1-2 days Time of Disposition: 20:30
[2022-12-08 18:50] LABS: Basophils % (A) 0 %; Eosinophils # (A) 0.2 k/uL (0-0.7); Eosinophils % (A) 2 %; HCT 38.2 % (34.0-46.0); HGB 12.8 gm/dL (11.4-16.0); Lymphocytes # (A) 1.5 k/uL (1.0-4.8); Lymphocytes % (A) 14 %; MCH 28.1 pg (25.0-35.0); MCHC 33.5 g/dL (31.0-37.0); MCV 83.7 fL (80.0-100.0); Monocytes # (A) 0.5 k/uL (0-1.0); Monocytes % (A) 5 %; Neutrophils # (A) 7.9 k/uL (1.3-7.7); Neutrophils % (A) 77 %; Platelet Count 276 k/uL (150-450); RBC 4.56 m/uL (3.80-5.40); RDW 14.6 % (11.5-15.5); WBC 10.3 k/uL (3.8-10.6)
[2022-12-08 19:05] LABS: INR 1.2 (<1.2); Partial Thromboplastin Time 35.8 sec (22.0-30.0)
[2022-12-08 19:09] LABS: ALT 22 U/L (4-34); AST 26 U/L (14-36); African American GFR (CKD) 33 (>60 ml/min/1.73 sqM); Albumin 4.8 g/dL (3.5-5.0); Alkaline Phosphatase 81 U/L (38-126); Anion Gap 14 mmol/L; Blood Urea Nitrogen 30 mg/dL (7-17); Calcium 10.2 mg/dL (8.4-10.2); Carbon Dioxide 25 mmol/L (22-30); Chloride 98 mmol/L (98-107); Glucose 93 mg/dL (74-99); Magnesium 2.2 mg/dL (1.6-2.3); Non-African American GFR(CKD) 28 (>60 ml/min/1.73 sqM); Phosphorus 3.3 mg/dL (2.5-4.5); Potassium 4.8 mmol/L (3.5-5.1); Sodium 137 mmol/L (137-145); Total Bilirubin 0.6 mg/dL (0.2-1.3); Total Protein 8.8 g/dL (6.3-8.2)
[2022-12-08] MEDS ORDERED: ONDANSETRON 4 MG/2 ML VIAL IVP STA (19:16)
[2022-12-08 22:01] VITALS: BP 131/75; PULSE 90; RESP 18; TEMP 98.7
== END 2022-12-08 22:04 | disposition home or self-care (01) ==
LOC: EC 16:58
DX: R53.1 Weakness (principal); F41.9 Anxiety disorder, unspecified; F12.90 Cannabis use, unspecified, uncomplicated; N18.30 Chronic kidney disease, stage 3 unspecified; Z86.711 Personal history of pulmonary embolism; Z79.01 Long term (current) use of anticoagulants; Z88.8 Allergy status to other drugs, medicaments and biological substances; Z91.040 Latex allergy status; Z88.7 Allergy status to serum and vaccine; Z88.0 Allergy status to penicillin; Z88.6 Allergy status to analgesic agent; Z88.5 Allergy status to narcotic agent
CPT/HCPCS: 36415; 93005; 80053; 83735; 84100; 84484; 85025; 85610; 85730; 99285; 96374; 96375; 96361 ×2; J2405; J1170

== ENCOUNTER 2022-12-13 17:40 | Emergency (ER) | payer BC, MEDICARE ==
[2022-12-13 17:46] VITALS: RESP 18; TEMP 99.4
[2022-12-13] MEDS ORDERED: FAMOTIDINE 20 MG/2 ML VIAL IV STA (18:45)
[2022-12-13] MEDS ORDERED: methylPREDNISolone SOD SUCCI 125 MG/2 ML VIAL IV STA (18:45)
[2022-12-13] MEDS ORDERED: diphenhydrAMINE 50 MG/ML 1 ML VIAL IVP STA (18:45)
[2022-12-13] MEDS ORDERED: ONDANSETRON 4 MG/2 ML VIAL IVP STA (18:50)
[2022-12-13] MEDS ORDERED: SODIUM CHLORIDE 0.9% 1,000 ML IV STA (18:51)
--- NOTE | 2022-12-13 19:35 | XR ---
EXAMINATION TYPE: XR chest 2V DATE OF EXAM: 12/13/2022 7:02 PM COMPARISON: Chest radiographs from 11/29/2022 TECHNIQUE: XR chest 2V Frontal and lateral views of the chest. CLINICAL INDICATION:Female, 57 years old with history of SOB; FINDINGS: Lungs/Pleura: There is no evidence of pleural effusion, focal consolidation, or pneumothorax. Pulmonary vascularity: Unremarkable. Heart/mediastinum: Cardiomediastinal silhouette is enlarged and stable. Post mitral valve repair seymour nges. Single-lead cardiac conduction device overlying the right hemithorax with lead projecting over the right ventricle. Musculoskeletal: No acute osseous pathology. Left PICC with tip in the superior cavoatrial junction. IMPRESSION: No acute cardiopulmonary disease/process.
--- NOTE | 2022-12-13 19:57 | ED ---
Allergic Reaction HPI - General Chief complaint: Allergic Reaction Stated complaint: Abnormal Labs Time Seen by Provider: 12/13/22 18:40 Source: patient Mode of arrival: ambulatory Limitations: no limitations - History of Present Illness Initial Comments: Patient is a 57-year-old female who presents to the emergency department for ALLERGIC reaction. Patient believes she is having ALLERGIC reaction to her IV cefepime. She takes at home through her left PowerPort for bacteremia of unclear etiology. She has several antibiotic ALLERGIES. She follows with Dr. Luo. She has been taking this medication for at least 2 weeks. She reports swelling in her hands with numbness in her lips and tongue. She feels mildly short of breath. She has been taking Benadryl with some improvement. She denies fever, chills, upper respiratory symptoms. Denies chest pain. No leg pain or swelling. Patient does have history of lupus and antiphospholipid syndrome. She is on Eliquis. - Related Data Home Medications Medication Instructions Recorded Confirmed Atorvastatin [Lipitor] 40 mg PO HS 09/24/21 11/29/22 Cholestyramine (with Sugar) 4 gm PO DAILY PRN 09/24/21 11/29/22 [Cholestyramine Packet] Gabapentin 300 mg PO QID 09/24/21 11/29/22 Sertraline [Zoloft] 200 mg PO DAILY 09/24/21 11/29/22 Ubrogepant [Ubrelvy] 100 mg PO BID PRN 09/24/21 11/29/22 rOPINIRole HCL [Requip] 2 mg PO HS 09/24/21 11/29/22 Esomeprazole Magnesium [NexIUM] 40 mg PO DAILY 03/16/22 11/29/22 Botox 200unit Injection 1 dose INJ Q84D 04/02/22 11/29/22 Meclizine [Antivert] 12.5 mg PO Q8H PRN 04/02/22 11/29/22 Diphenhydramine 50mg/Ml Vial 50 mg IM Q6H PRN 04/18/22 11/29/22 Apixaban [Eliquis] 5 mg PO BID 05/29/22 11/29/22 Spironolactone [Aldactone] 50 mg PO TID 06/11/22 11/29/22 busPIRone HCl [Buspar] 5 mg PO BID 06/11/22 11/29/22 Bumetanide [BUMEX] 2 mg PO DAILY 06/24/22 11/29/22 Lidocaine 5% Patch [Lidoderm 5% 1 patch TRANSDERM DAILY PRN 08/26/22 11/29/22 Patch] Fludrocortisone [Florinef] 0.1 mg PO DAILY 09/20/22 11/29/22 Metoprolol Succinate (ER) [Toprol 25 mg PO DAILY PRN 10/29/22 11/29/22 XL] Midodrine [ProAmatine] 5 mg PO TID PRN 10/29/22 11/29/22 HYDROcodone/APAP 5-325MG [[place] 1 tab PO TID 11/29/22 11/29/22 5-325] Levalbuterol Nebulized [Xopenex 0.31 mg INHALATION RT-TID PRN 11/29/22 11/29/22 Nebulized (Pediatric)] Ondansetron [Zofran] 4 mg PO Q8H PRN 11/29/22 11/29/22 Previous Rx's Medication Instructions Recorded Dicyclomine [Bentyl] 20 mg PO TID PRN #30 tablet 04/30/22 Zonisamide [Zonegran] 100 mg PO Q12HR 30 Days #60 cap 07/26/22 Lacosamide [Vimpat] 50 mg PO BID tab 11/05/22 Nystatin 100,000 Unit/gm Powd 1 applic TOPICAL BID 60 Days #60 11/05/22 [Mycostatin Powder] each Nystatin 100,000 Unit/ml Susp 500,000 unit PO QID 30 Days #300 ml 11/05/22 [Mycostatin Oral Susp] Cefepime [Maxipime] 2 gm IVPB Q8HR each 12/03/22 Potassium Chloride ER [K-Dur 20] 20 meq PO BID tab 12/03/22 Famotidine [Pepcid] 20 mg PO BID #14 tablet 12/13/22 Allergies Allergy/AdvReac Type Severity Reaction Status Date / Time Penicillins Allergy Severe Anaphylaxis Verified 12/08/22 17:50 vancomycin Allergy Severe Swelling Verified 12/08/22 17:50 in lips cefepime Allergy Swelling Verified 12/13/22 17:46 clindamycin Allergy Anaphylaxis Verified 12/08/22 17:50 dexamethasone [From Decadron] Allergy Unknown Verified 12/08/22 17:50 Influenza Virus Vaccines Allergy Unknown Verified 12/08/22 17:50 latex Allergy Unknown Verified 12/08/22 17:50 morphine Allergy Unknown Verified 12/08/22 17:50 prochlorperazine Allergy Unknown Verified 12/08/22 17:50 [From Compazine] [id number] AdvReac Confusion, Verified 12/08/22 17:50 [From Emgality Pen] increased blood pressure metoclopramide [From Reglan] AdvReac "felt like Verified 12/08/22 17:50 I needed to jump out of my skin" Review of Systems ROS Statement: Those systems with pertinent positive or pertinent negative responses have been documented in the HPI. ROS Other: All systems not noted in ROS Statement are negative. 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 for low K+ History of Any Multi-Drug Resistant Organisms: C-DIFF Date of last positivie culture/infection: 2021 MDRO Source:: Stool Past Surgical History: Back Surgery, Breast Surgery, Cardiac Valve Replacement, Section, Cholecystectomy, Heart Catheterization, Hysterectomy, Pacemaker Additional Past Surgical History / Comment(s): pacemaker d/t bradycardia/hyp otension with last one place in 2013 in [place], [place], 3 lower back surgeries, bilateral breast reduction. 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 Past Anesthesia/Blood Transfusion Reactions: No Reported Reaction Type of Cardiac Device: Permanent Pacemaker, Unknown Device Placement Date:: 2012 Past Psychological History: Anxiety Smoking Status: Never smoker Past Alcohol Use History: None Reported Past Drug Use History: Marijuana - Past Family History Mother Additional Family Medical History / Comment(s): Mother at the age of 49 yrs after surgery for silicon breast implants with a leak that caused ARDS and DIC per pt Father Family Medical History: Cancer, Hyperlipidemia, Hypertension Additional Family Medical History / Comment(s): Father is a colon cancer survivor. General Exam Limitations: no limitations General appearance: alert Eye exam: Present: normal appearance, PERRL, EOMI. Absent: scleral icterus, conjunctival injection, periorbital swelling ENT exam: Present: normal oropharynx (No tongue swelling) Respiratory exam: Present: normal lung sounds bilaterally. Absent: respiratory distress, wheezes, rales, rhonchi, stridor Cardiovascular Exam: Present: regular rate, normal rhythm, normal heart sounds. Absent: systolic murmur, diastolic murmur, rubs, gallop, clicks Extremities exam: Present: other (Mild generalized swelling of bilateral hands no erythema, tenderness. Neurovascularly intact. Full range of motion) Neurological exam: Present: alert Psychiatric exam: Present: normal affect, normal mood Skin exam: Present: warm, dry, intact, normal color. Absent: rash Course Vital Signs 12/13/22 12/13/22 12/13/22 17:43 18:33 20:09 Temperature 99.4 F Pulse Rate 87 77 Respiratory 18 18 18 Rate Blood Pressure 111/73 114/74 O2 Sat by Pulse 98 99 Oximetry Medical Decision Making - Medical Decision Making Was pt. sent in by a medical professional or institution (, PA, MAILROOM COORDINATOR, urgent care, hospital, or retirement...) When possible be specific @ -No Did you speak to anyone other than the patient for history (EMS, parent, family, police, friend...)? What history was obtained from this source @ -No Did you review nursing and triage notes (agree or disagree)? Why? @ -I reviewed and agree with nursing and triage notes Were old charts reviewed (outside hosp., previous admission, EMS record, old EKG, old radiological studies, urgent care reports/EKG's, retirement records)? Report findings @ -No old charts were reviewed Differential Diagnosis (chest pain, altered mental status, abdominal pain women, abdominal pain men, vaginal bleeding, weakness, fever, dyspnea, syncope, headache, dizziness, GI bleed, back pain, seizure, CVA, palpatations, mental health)? ALLERGIC reaction, anaphylaxis, medication reaction EKG interpreted by me (3pts min.). @ -As above X-rays interpreted by me (1pt min.). @ -[No acute cardiopulmonary process CT interpreted by me (1pt min.). @ -None done U/S interpreted by me (1pt. min.). @ -None done What testing was considered but not performed or refused? (CT, X-rays, U/S, labs)? Why? @ -None What meds were considered but not given or refused? Why? @ -None Did you discuss the management of the patient with other professionals (professionals i.e. DrMaria Teresa, PA, MAILROOM COORDINATOR, lab, RT, psych nurse, social science analyst, shipfitter, teacher, home lending officer, field nurse case manager)? Give summary @ -No Was smoking cessation discussed for >3mins.? @ -No Was critical care preformed (if so, how long)? @ -No Were there social determinants of health that impacted care today? How? (Homelessness, low income, unemployed, alcoholism, drug addiction, transportation, low edu. Level, literacy, decrease access to med. care, [facility], rehab)? @ -No Was there de-escalation of care discussed even if they declined (Discuss DNR or withdrawal of care, Hospice)? DNR status @ -No What co-morbidities impacted this encounter? (DM, HTN, Smoking, COPD, CAD, Cancer, CVA, ARF, Chemo, Hep., AIDS, mental health diagnosis, sleep apnea, morbid obesity)? @ -None Was patient admitted / discharged? Hospital course, mention meds given and route, prescriptions, significant lab abnormalities, going to OR and other pertinent info. @ -Patient presenting with concern for ALLERGIC reaction to cefepime. She has been taking this medication for 2 weeks. She is resting comfortably no evidence of respiratory distress. No hypoxia. Patient given ALLERGIC reaction cocktail with improvement of symptoms. Patient observed closely in the emergency department she continued to improve. We discussed case in detail. Will not prescribe prednisone as patient's immune system is already compromised with bacteremia. Patient will take Benadryl and Pepcid at home. She will follow-up with Dr. Luo regarding antibiotic as options are limited. We discussed return parameters. Undiagnosed new problem with uncertain prognosis? @ -No Drug Therapy requiring intensive monitoring for toxicity (Heparin, Nitro, Insulin, Cardizem)? @ -No Were any procedures done? @ -No Diagnosis/symptom? @ medication reaction Acute, or Chronic, or Acute on Chronic? @ -acute Uncomplicated (without systemic symptoms) or Complicated (systemic symptoms)? @ -uncomplicated Side effects of treatment? @ -No Exacerbation, Progression, or Severe Exacerbation? @ -No Poses a threat to life or bodily function? How? (Chest pain, [place], [place], pneumonia, PE, COPD, DKA, ARF, appy, cholecystitis, CVA, Diverticulitis, Homicidal, Suicidal, threat to staff... and all critical care pts) @ -No Dr. Mayes is my attending Disposition Clinical Impression: Medication reaction Disposition: HOME SELF-CARE Condition: Good Instructions (If sedation given, give patient instructions): Anaphylaxis (ED) Additional Instructions: Take medication as directed. Continue Benadryl. Please follow-up with Dr. Luo regarding biotic. Return to the emergency department if you experience new, concerning, or worsening symptoms. Prescriptions: Famotidine [Pepcid] 20 mg PO BID #14 tablet Is patient prescribed a controlled substance at d/c from ED?: No Referrals: Franklin Hassan MD [Primary Care Provider] - 1-2 days
[2022-12-13 20:11] VITALS: BP 114/74; PULSE 77
== END 2022-12-13 20:10 | disposition home or self-care (01) ==
LOC: EC 17:40
DX: R20.2 Paresthesia of skin (principal); T36.1X5A Adverse effect of cephalosporins and other beta-lactam antibiotics, initial encounter; N18.30 Chronic kidney disease, stage 3 unspecified; F41.9 Anxiety disorder, unspecified; F12.90 Cannabis use, unspecified, uncomplicated; Z88.0 Allergy status to penicillin; Z88.7 Allergy status to serum and vaccine; Z88.8 Allergy status to other drugs, medicaments and biological substances; Z91.040 Latex allergy status; Z88.5 Allergy status to narcotic agent; Z79.01 Long term (current) use of anticoagulants; Z79.899 Other long term (current) drug therapy
CPT/HCPCS: 71046; 99283; 96374; 96375 ×3; 96361; J1200; J2930; J2405

== ENCOUNTER → 2022-12-15 | Outpatient (CLI) | payer BC, MEDICARE ==
[2022-12-16 02:52] LABS: BUN/Creat Ratio 20.41 Ratio (12.00-20.00); Blood Urea Nitrogen 34.7 mg/dL (9.0-27.0); Calcium 9.8 mg/dL (8.7-10.3); Carbon Dioxide 25.2 mmol/L (21.6-31.8); Chloride 98 mmol/L (96-109); Glucose 79 mg/dL (70-110); Potassium 4.1 mmol/L (3.5-5.5); Sodium 139 mmol/L (135-145)
== END | disposition home or self-care (01) ==
LOC: LABWHC1 15:26
PROVIDERS: ATTEND Internal Medicine Infectious Disease
DX: R78.81 Bacteremia (principal)
CPT/HCPCS: 36415; 80048; 87040

== ENCOUNTER 2022-12-31 19:12 | Inpatient (IN) | payer BC, MEDICARE ==
[2022-12-31] MEDS ORDERED: ACETAMINOPHEN TAB 325 MG TAB PO STA (20:02)
[2022-12-31] MEDS ORDERED: SODIUM CHLORIDE 0.9% 1,000 ML IV STA (20:02)
[2022-12-31] MEDS ORDERED: ONDANSETRON 4 MG/2 ML VIAL IVP STA (20:04)
[2022-12-31] MEDS ORDERED: FAMOTIDINE 20 MG/2 ML VIAL IV STA (20:04)
[2022-12-31] MEDS ORDERED: HYDROmorphone 1 MG/ML 1 ML SYRINGE IVP STA (20:04)
[2022-12-31] MEDS: IBUPROFEN 600 MG TAB PO STA ×2 (20:19→20:58)
[2022-12-31 20:40] LABS: Basophils % (A) 0 %; Eosinophils # (A) 0.1 k/uL (0-0.7); Eosinophils % (A) 1 %; HCT 41.5 % (34.0-46.0); HGB 13.5 gm/dL (11.4-16.0); Lymphocytes # (A) 0.8 k/uL (1.0-4.8); Lymphocytes % (A) 9 %; MCH 27.3 pg (25.0-35.0); MCHC 32.4 g/dL (31.0-37.0); MCV 84.4 fL (80.0-100.0); Mean Platelet Volume 8.9; Monocytes # (A) 0.6 k/uL (0-1.0); Monocytes % (A) 7 %; Neutrophils # (A) 7.2 k/uL (1.3-7.7); Neutrophils % (A) 82 %; Platelet Count 278 k/uL (150-450); RBC 4.92 m/uL (3.80-5.40); RDW 15.1 % (11.5-15.5); WBC 8.8 k/uL (3.8-10.6)
[2022-12-31 20:45] LABS: Appearance,Urine Clear (Clear); Bilirubin,Urine Negative (Negative); Blood,Urine Negative (Negative); Glucose,Urine (UA) Negative (Negative); Ketones,Urine Negative (Negative); Leukocyte Esterase,Urine Negative (Negative); Nitrite,Urine Negative (Negative); PH, Urine 5.5 (5.0-8.0); Protein,Urine Negative (Negative); Specific Gravity,Urine 1.009 (1.001-1.035); Urobilinogen,Urine <2.0 mg/dL (<2.0)
[2022-12-31 20:50] LABS: Color,Urine Light Yellow
[2022-12-31 20:52] LABS: ALT 29 U/L (4-34); AST 34 U/L (14-36); African American GFR (CKD) 41 (>60 ml/min/1.73 sqM); Albumin 4.9 g/dL (3.5-5.0); Alkaline Phosphatase 83 U/L (38-126); Anion Gap 16 mmol/L; Blood Urea Nitrogen 24 mg/dL (7-17); Calcium 9.7 mg/dL (8.4-10.2); Carbon Dioxide 25 mmol/L (22-30); Chloride 96 mmol/L (98-107); Glucose 172 mg/dL (74-99); Non-African American GFR(CKD) 36 (>60 ml/min/1.73 sqM); Potassium 3.2 mmol/L (3.5-5.1); Sodium 137 mmol/L (137-145); Total Bilirubin 0.7 mg/dL (0.2-1.3); Total Protein 8.4 g/dL (6.3-8.2)
--- NOTE | 2022-12-31 20:53 | ED ---
Fever HPI - General Chief Complaint: Fever Stated Complaint: Fever,abd pain Time Seen by Provider: 12/31/22 19:57 Source: patient Mode of arrival: ambulatory Limitations: no limitations - History of Present Illness Initial Comments: 57-year-old female presenting with chief complaint of fever and upper abdominal pain. Patient states that symptoms started today. Patient states that she has recently been on IV antibiotics for bacteremia. Pain is located in the upper abdomen and is sharp in nature. She admits to nausea with no vomiting. She admits to diarrhea. No chest pain or difficulty breathing. No hematochezia or melena. No dysuria or hematuria. - Related Data Home Medications Medication Instructions Recorded Confirmed Atorvastatin [Lipitor] 40 mg PO HS 09/24/21 12/31/22 Cholestyramine (with Sugar) 4 gm PO DAILY PRN 09/24/21 12/31/22 [Cholestyramine Packet] Gabapentin 300 mg PO QID 09/24/21 12/31/22 Sertraline [Zoloft] 200 mg PO DAILY 09/24/21 12/31/22 Ubrogepant [Ubrelvy] 100 mg PO BID PRN 09/24/21 12/31/22 rOPINIRole HCL [Requip] 2 mg PO HS 09/24/21 12/31/22 Esomeprazole Magnesium [NexIUM] 40 mg PO DAILY 03/16/22 12/31/22 Botox 200unit Injection 1 dose INJ Q84D 04/02/22 12/31/22 Meclizine [Antivert] 12.5 mg PO Q8H PRN 04/02/22 12/31/22 Diphenhydramine 50mg/Ml Vial 50 mg IM Q6H PRN 04/18/22 12/31/22 Apixaban [Eliquis] 5 mg PO BID 05/29/22 12/31/22 Spironolactone [Aldactone] 50 mg PO TID 06/11/22 12/31/22 busPIRone HCl [Buspar] 5 mg PO BID 06/11/22 12/31/22 Bumetanide [BUMEX] 2 mg PO DAILY 06/24/22 12/31/22 Lidocaine 5% Patch [Lidoderm 5% 1 patch TRANSDERM DAILY PRN 08/26/22 12/31/22 Patch] Fludrocortisone [Florinef] 0.1 mg PO DAILY 09/20/22 12/31/22 Metoprolol Succinate (ER) [Toprol 25 mg PO DAILY PRN 10/29/22 12/31/22 XL] Midodrine [ProAmatine] 5 mg PO TID PRN 10/29/22 12/31/22 HYDROcodone/APAP 5-325MG [[place] 1 tab PO TID 11/29/22 12/31/22 5-325] Levalbuterol Nebulized [Xopenex 0.31 mg INHALATION RT-TID PRN 11/29/22 12/31/22 Nebulized (Pediatric)] Ondansetron [Zofran] 4 mg PO Q8H PRN 11/29/22 12/31/22 Previous Rx's Medication Instructions Recorded Dicyclomine [Bentyl] 20 mg PO TID PRN #30 tablet 04/30/22 Zonisamide [Zonegran] 100 mg PO Q12HR 30 Days #60 cap 07/26/22 Lacosamide [Vimpat] 50 mg PO BID tab 11/05/22 Nystatin 100,000 Unit/gm Powd 1 applic TOPICAL BID 60 Days #60 11/05/22 [Mycostatin Powder] each Nystatin 100,000 Unit/ml Susp 500,000 unit PO QID 30 Days #300 ml 11/05/22 [Mycostatin Oral Susp] Potassium Chloride ER [K-Dur 20] 20 meq PO BID tab 12/03/22 Famotidine [Pepcid] 20 mg PO BID #14 tablet 12/13/22 Allergies Allergy/AdvReac Type Severity Reaction Status Date / Time Penicillins Allergy Severe Anaphylaxis Verified 12/31/22 23:12 vancomycin Allergy Severe Swelling Verified 12/31/22 23:12 in lips cefepime Allergy Swelling Verified 12/31/22 23:12 clindamycin Allergy Anaphylaxis Verified 12/31/22 23:12 dexamethasone [From Decadron] Allergy Unknown Verified 12/31/22 23:12 Influenza Virus Vaccines Allergy Unknown Verified 12/31/22 23:12 latex Allergy Unknown Verified 12/31/22 23:12 morphine Allergy Unknown Verified 12/31/22 23:12 prochlorperazine Allergy Unknown Verified 12/31/22 23:12 [From Compazine] galcanezumab-gnlm AdvReac Confusion, Verified 12/31/22 23:12 [From Emgality Pen] increased blood pressure metoclopramide [From Reglan] AdvReac "felt like Verified 12/31/22 23:12 I needed to jump out of my skin" Review of Systems ROS Statement: Those systems with pertinent positive or pertinent negative responses have been documented in the HPI. ROS Other: All systems not noted in ROS Statement are negative. 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 for low K+ History of Any Multi-Drug Resistant Organisms: C-DIFF Date of last positivie culture/infection: 2021 MDRO Source:: Stool Past Surgical History: Back Surgery, Breast Surgery, Cardiac Valve Replacement, Section, Cholecystectomy, Heart Catheterization, Hysterectomy, Pacemaker Additional Past Surgical History / Comment(s): pacemaker d/t bradycardia/hypotension with last one place in 2013 in [place], [place], 3 lower back surgeries, bilateral breast reduction. 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 Past Anesthesia/Blood Transfusion Reactions: No Reported Reaction Type of Cardiac Device: Permanent Pacemaker, Unknown Device Placement Date:: 2012 Past Psychological History: Anxiety Smoking Status: Never smoker Past Alcohol Use History: None Reported Past Drug Use History: Marijuana - Past Family History Mother Additional Family Medical History / Comment(s): Mother at the age of 49 yrs after surgery for silicon breast implants with a leak that caused ARDS and DIC per pt Father Family Medical History: Cancer, Hyperlipidemia, Hypertension Additional Family Medical History / Comment(s): Father is a colon cancer survivor. General Exam Limitations: no limitations General appearance: alert, in no apparent distress Head exam: Present: atraumatic, normocephalic, normal inspection Eye exam: Present: normal appearance, EOMI Neck exam: Present: normal inspection, full ROM Respiratory exam: Present: normal lung sounds bilaterally. Absent: respiratory distress, wheezes, rales, rhonchi, stridor Cardiovascular Exam: Present: regular rate, normal rhythm, normal heart sounds. Absent: systolic murmur, diastolic murmur, rubs, gallop, clicks GI/Abdominal exam: Present: soft, tenderness. Absent: distended, guarding, rebound, rigid Neurological exam: Present: alert, oriented X3, CN II-XII intact Psychiatric exam: Present: normal affect, normal mood Skin exam: Present: warm, dry, intact, normal color. Absent: rash Course Vital Signs 12/31/22 12/31/22 12/31/22 19:38 19:56 20:57 Temperature 102.6 F H 100.3 F H Pulse Rate 106 H 101 H 89 Respiratory 18 18 18 Rate Blood Pressure 119/76 129/81 129/80 O2 Sat by Pulse 97 97 93 L Oximetry 12/31/22 12/31/22 21:55 23:18 Temperature 99.5 F Pulse Rate 75 71 Respiratory 18 18 Rate Blood Pressure 119/72 124/78 O2 Sat by Pulse 95 96 Oximetry Medical Decision Making - Medical Decision Making Was pt. sent in by a medical professional or institution (, PA, [employer], urgent care, hospital, or retirement...) When possible be specific @ -No Did you speak to anyone other than the patient for history (EMS, parent, family, police, friend...)? What history was obtained from this source @ -No Did you review nursing and triage notes (agree or disagree)? Why? @ -I reviewed and agree with nursing and triage notes Were old charts reviewed (outside hosp., previous admission, EMS record, old EKG, old radiological studies, urgent care reports/EKG's, retirement records)? Report findings @ -Recent admissions were reviewed Differential Diagnosis (chest pain, altered mental status, abdominal pain women, abdominal pain men, vaginal bleeding, weakness, fever, dyspnea, syncope, headache, dizziness, GI bleed, back pain, seizure, CVA, palpatations, mental health, musculoskeletal)? @ - [facility] Differential Fever: Pneumonia, viral URI, endocarditis, myocarditis, pericarditis, otitis, sinusitis, peritonsillar Abscess, retropharyngeal Abscess, epiglottitis, peritonitis, appendicitis, Rae cystitis, diverticulitis, hepatitis, colitis, UTI, PID, TOA, pyelonephritis, prostatitis, epididymitis, meningitis, encephali tis, pulmonary embolism, CVA, thyroid storm, pancreatitis, adrenal crisis, cavernous sinus thrombosis this is not meant to be an all-inclusive list. EKG interpreted by me (3pts min.). @ -As above X-rays interpreted by me (1pt min.). @ -Chronic changes without acute pulmonary process CT interpreted by me (1pt min.). @ -Small hiatal hernia otherwise no definitive evidence for acute upper abdominal process to explain the patient's pain. Atrophic right kidney with nonobstructing bilateral renal calculi U/S interpreted by me (1pt. min.). @ -None done What testing was considered but not performed or refused? (CT, X-rays, U/S, labs)? Why? @ -None What meds were considered but not given or refused? Why? @ -None Did you discuss the management of the patient with other professionals (professionals i.e. , PA, [employer], lab, RT, psych nurse, social service technician, retail sales clerk, teacher, nuclear officer, pillowcase cutter)? Give summary @ -I spoke with Dr. Hassan who accepted admission Was smoking cessation discussed for >3mins.? @ -No Was critical care preformed (if so, how long)? @ -No Were there social determinants of health that impacted care today? How? (Homelessness, low income, unemployed, alcoholism, drug addiction, transportation, low edu. Level, literacy, decrease access to med. care, correction, rehab)? @ -No Was there de-escalation of care discussed even if they declined (Discuss DNR or withdrawal of care, Hospice)? DNR status @ -No What co-morbidities impacted this encounter? (DM, HTN, Smoking, COPD, CAD, Cancer, CVA, ARF, Chemo, Hep., AIDS, mental health diagnosis, sleep apnea, morbid obesity)? @ -None Was patient admitted / discharged? Hospital course, mention meds given and route, prescriptions, significant lab abnormalities, going to OR and other pertinent info. @ -57-year-old female presenting with chief complaint of fever. Patient is also presenting with abdominal pain which may be chronic in nature. Patient has a port to the left arm, she states that today it is reddened and more tender. Patient has been receiving antibiotics for bacteremia. Physical examination is conducted. Lab work shows no leukocytosis or anemia. Potassium 3.2. BUN 24 and creatinine 1.58 which is consistent with her baseline. Lactic acid 2.4, patient is receiving IV fluids. Urine shows no infectious processes. Negative c. diff, heterophile, influenza, RSV, covid, strep. Negative chest x-ray and CT . Patient will be admitted for fever and suspected bacteremia, given a dose of cefepime. She is agreeable to this plan. ID placed on consult. I discussed this case with my attending Dr. Mayes Undiagnosed new problem with uncertain prognosis? @ -No Drug Therapy requiring intensive monitoring for toxicity (Heparin, Nitro, Insulin, Cardizem)? @ -No Were any procedures done? @ -No Diagnosis/symptom? @ -Fever, bacteremia Acute, or Chronic, or Acute on Chronic? @ -acute Uncomplicated (without systemic symptoms) or Complicated (systemic symptoms)? @ -complicated Side effects of treatment? @ -No Exacerbation, Progression, or Severe Exacerbation? @ -No Poses a threat to life or bodily function? How? (Chest pain, [place], PR, pneumonia, PE, COPD, DKA, ARF, appy, cholecystitis, CVA, Diverticulitis, Homicidal, Suicidal, threat to staff... and all critical care pts) @ -No - Lab Data Result diagrams: 12/31/22 20:28 12/31/22 20:28 Lab Results 12/31/22 12/31/22 12/31/22 Range/Units 20:28 20:28 20:28 WBC 8.8 (3.8-10.6) k/uL RBC 4.92 (3.80-5.40) m/uL Hgb 13.5 (11.4-16.0) gm/dL Hct 41.5 (34.0-46.0) % MCV 84.4 (80.0-100.0) fL MCH 27.3 (25.0-35.0) pg MCHC 32.4 (31.0-37.0) g/dL RDW 15.1 (11.5-15.5) % Plt Count 278 (150-450) k/uL MPV 8.9 Neutrophils % 82 % Lymphocytes % 9 % Monocytes % 7 % Eosinophils % 1 % Basophils % 0 % Neutrophils # 7.2 (1.3-7.7) k/uL Lymphocytes # 0.8 L (1.0-4.8) k/uL Monocytes # 0.6 (0-1.0) k/uL Eosinophils # 0.1 (0-0.7) k/uL Basophils # 0.0 (0-0.2) k/uL Sodium 137 (137-145) mmol/L Potassium 3.2 L (3.5-5.1) mmol/L Chloride 96 L (98-107) mmol/L Carbon Dioxide 25 (22-30) mmol/L Anion Gap 16 mmol/L BUN 24 H (7-17) mg/dL Creatinine 1.58 H (0.52-1.04) mg/dL Est GFR (CKD-EPI)AfAm 41 (>60 ml/min/1.73 sqM) Est GFR (CKD-EPI)NonAf 36 (>60 ml/min/1.73 sqM) Glucose 172 H (74-99) mg/dL Lactic Ac Sepsis Rflx Plasma Lactic Acid Raffi (0.7-2.0) mmol/L Calcium 9.7 (8.4-10.2) mg/dL Total Bilirubin 0.7 (0.2-1.3) mg/dL AST 34 (14-36) U/L ALT 29 (4-34) U/L Alkaline Phosphatase 83 (38-126) U/L Total Protein 8.4 H (6.3-8.2) g/dL Albumin 4.9 (3.5-5.0) g/dL Urine Color Urine Appearance (Clear) Urine pH (5.0-8.0) Ur Specific [place] (1.001-1.035) Urine Protein (Negative) Urine Glucose (UA) (Negative) Urine Ketones (Negative) Urine Blood (Negative) Urine Nitrite (Negative) Urine Bilirubin (Negative) Urine Urobilinogen (<2.0) mg/dL Ur Leukocyte Esterase (Negative) C. difficile (EIA) Intrp (Negative) Heterophile Antibody Negative (Negative) Influenza Type A (PCR) (Not Detectd) Influenza Type B (PCR) (Not Detectd) RSV (PCR) (Not Detectd) SARS-CoV-2 (PCR) (Not Detectd) Group A Strep (PCR) (Not Detectd) 12/31/22 12/31/2212/31/23 Range/Units 20:28 20:28 20:28 WBC (3.8-10.6) k/uL RBC (3.80-5.40) m/uL Hgb (11.4-16.0) gm/dL Hct (34.0-46.0) % MCV (80.0-100.0) fL MCH (25.0-35.0) pg MCHC (31.0-37.0) g/dL RDW (11.5-15.5) % Plt Count (150-450) k/uL MPV Neutrophils % % Lymphocytes % % Monocytes % % Eosinophils % % Basophils % % Neutrophils # (1.3-7.7) k/uL Lymphocytes # (1.0-4.8) k/uL Monocytes # (0-1.0) k/uL Eosinophils # (0-0.7) k/uL Basophils # (0-0.2) k/uL Sodium (137-145) mmol/L Potassium (3.5-5.1) mmol/L Chloride (98-107) mmol/L Carbon Dioxide (22-30) mmol/L Anion Gap mmol/L BUN (7-17) mg/dL Creatinine (0.52-1.04) mg/dL Est GFR (CKD-EPI)AfAm (>60 ml/min/1.73 sqM) Est GFR (CKD-EPI)NonAf (>60 ml/min/1.73 sqM) Glucose (74-99) mg/dL Lactic Ac Sepsis Rflx Plasma Lactic Acid Raffi 2.4 H* (0.7-2.0) mmol/L Calcium (8.4-10.2) mg/dL Total Bilirubin (0.2-1.3) mg/dL AST (14-36) U/L ALT (4-34) U/L Alkaline Phosphatase (38-126) U/L Total Protein (6.3-8.2) g/dL Albumin (3.5-5.0) g/dL Urine Color Light Yellow Urine Appearance Clear (Clear) Urine pH 5.5 (5.0-8.0) Ur Specific [place] 1.009 (1.001-1.035) Urine Protein Negative (Negative) Urine Glucose (UA) Negative (Negative) Urine Ketones Negative (Negative) Urine Blood Negative (Negative) Urine Nitrite Negative (Negative) Urine Bilirubin Negative (Negative) Urine Urobilinogen <2.0 (<2.0) mg/dL Ur Leukocyte Esterase Negative (Negative) C. difficile (EIA) Intrp (Negative) Heterophile Antibody (Negative) Influenza Type A (PCR) (Not Detectd) Influenza Type B (PCR) (Not Detectd) RSV (PCR) (Not Detectd) SARS-CoV-2 (PCR) (Not Detectd) Group A Strep (PCR) NOT DETECTED (Not Detectd) 12/31/22 12/31/22 12/31/22 Range/Units 20:28 20:46 21:08 WBC (3.8-10.6) k/uL RBC (3.80-5.40) m/uL Hgb (11.4-16.0) gm/dL Hct (34.0-46.0) % MCV (80.0-100.0) fL MCH (25.0-35.0) pg MCHC (31.0-37.0) g/dL RDW (11.5-15.5) % Plt Count (150-450) k/uL MPV Neutrophils % % Lymphocytes % % Monocytes % % Eosinophils % % Basophils % % Neutrophils # (1.3-7.7) k/uL Lymphocytes # (1.0-4.8) k/uL Monocytes # (0-1.0) k/uL Eosinophils # (0-0.7) k/uL Basophils # (0-0.2) k/uL Sodium (137-145) mmol/L Potassium (3.5-5.1) mmol/L Chloride (98-107) mmol/L Carbon Dioxide (22-30) mmol/L Anion Gap mmol/L BUN (7-17) mg/dL Creatinine (0.52-1.04) mg/dL Est GFR (CKD-EPI)AfAm (>60 ml/min/1.73 sqM) Est GFR (CKD-EPI)NonAf (>60 ml/min/1.73 sqM) Glucose (74-99) mg/dL Lactic Ac Sepsis Rflx Y Plasma Lactic Acid Raffi (0.7-2.0) mmol/L Calcium (8.4-10.2) mg/dL Total Bilirubin (0.2-1.3) mg/dL AST (14-36) U/L ALT (4-34) U/L Alkaline Phosphatase (38-126) U/L Total Protein (6.3-8.2) g/dL Albumin (3.5-5.0) g/dL Urine Color Urine Appearance (Clear) Urine pH (5.0-8.0) Ur Specific [place] (1.001-1.035) Urine Protein (Negative) Urine Glucose (UA) (Negative) Urine Ketones (Negative) Urine Blood (Negative) Urine Nitrite (Negative) Urine Bilirubin (Negative) Urine Urobilinogen (<2.0) mg/dL Ur Leukocyte Esterase (Negative) C. difficile (EIA) Intrp Negative (Negative) Heterophile Antibody (Negative) Influenza Type A (PCR) Not Detected (Not Detectd) Influenza Type B (PCR) Not Detected (Not Detectd) RSV (PCR) Not Detected (Not Detectd) SARS-CoV-2 (PCR) Not Detected (Not Detectd) Group A Strep (PCR) (Not Detectd) Disposition Clinical Impression: Bacteremia, Fever Disposition: ADMITTED IP TO THIS HOSP Condition: Fair
--- NOTE | 2022-12-31 21:14 | XR ---
EXAMINATION TYPE: XR chest 2V DATE OF EXAM: 12/31/2022 8:37 PM COMPARISON: Chest radiographs from 12/13/2022 TECHNIQUE: XR chest 2V Frontal and lateral views of the chest. CLINICAL INDICATION:Female, 57 years old with history of fever; FINDINGS: Lungs/Pleura: There is no evidence of pleural effusion, focal consolidation, or pneumothorax. Chronic senescent parenchymal change. Pulmonary vascularity: Unremarkable. Heart/mediastinum: Cardiomediastinal silhouette is enlarged and stable. Post mitral valve repair seymour nges. Single-lead cardiac conduction device overlying the right hemithorax with lead projecting over the right atrium. Loop recorder overlies the left chest. Musculoskeletal: No acute osseous pathology. Left PICC with tip in the superior cavoatrial junction. Unchanged position. IMPRESSION: Chronic changes without acute pulmonary process. No significant change from prior.
--- NOTE | 2022-12-31 21:26 | CT ---
EXAMINATION TYPE: CT abdomen pelvis wo con CT DLP: 547.1 mGycm, Automated exposure control for dose reduction was used. DATE OF EXAM: 12/31/2022 9:15 PM COMPARISON: CT abdomen pelvis most recent from 10/29/2022 CLINICAL INDICATION:Female, 57 years old with history of epigastric pain, fever; epigastric pain, fev er, Stage III kidney failure TECHNIQUE: Axial CT of the abdomen and pelvis. Sagittal and coronal reformats were created on a [employer] workstation. Contrast used: mL of , (none if empty) Oral contrast used: without Oral Contrast (none if empty) FINDINGS: LOWER CHEST: Unremarkable ABDOMEN LIVER: Unremarkable GALLBLADDER AND BILE DUCTS: Gallbladder is surgically absent with mild intrahepatic and extra hepatic biliary dilatation likely physiologic and a postcholecystectomy change. No evidence of choledocholit hiasis. PANCREAS: Unremarkable. SPLEEN: Small splenule is present. ADRENAL GLANDS: Unremarkable. KIDNEYS AND URETERS: Atrophic right kidney. No evidence of hydronephrosis or obstructive renal calcul us. Nonobstructing calculi measuring 4 mm on the left and 3 mm on the right. The ureters are unremark able. PELVIS BLADDER: Unremarkable REPRODUCTIVE: Unremarkable. ABDOMEN & PELVIS STOMACH AND BOWEL: No evidence of bowel obstruction. Small hiatal hernia. PERITONEUM/RETROPERITONEUM: No evidence of pneumoperitoneum or free fluid. VASCULATURE: No evidence of aortic aneurysm. MUSCULOSKELETAL: No acute osseous abnormalities. Moderate disc degeneration changes are present throu ghout the thoracolumbar spine., post fixation changes to the lower spine appears intact. Grade 1 ante rolisthesis of L3 on L4. No evidence for spondylolysis. LYMPH NODES: No gross evidence for lymphadenopathy. SOFT TISSUE/ABDOMINAL WALL: Unremarkable IMPRESSION: 1. Small hiatal hernia otherwise no definitive evidence for acute upper abdominal process to explain the patient's pain. 2. Atrophic right kidney with nonobstructing bilateral renal calculi
[2022-12-31] MEDS ORDERED: ACETAMINOPHEN TAB 325 MG TAB PO PRN (22:26)
[2022-12-31] MEDS ORDERED: NALOXONE 0.4 MG/ML 1 ML VIAL IV PRN (22:26)
[2022-12-31] MEDS ORDERED: IBUPROFEN 400 MG TAB PO PRN (22:26)
[2022-12-31] MEDS ORDERED: CEFEPIME 2 GM in SODIUM CHLORIDE 0.9% 100 ML IVPB STA (22:36)
[2022-12-31] MEDS ORDERED: diphenhydrAMINE 50 MG/ML 1 ML VIAL IVP STA (23:06)
[2022-12-31] MEDS: ONDANSETRON 4 MG/2 ML VIAL IVP PRN (23:12)
[2022-12-31] MEDS: HYDROmorphone 1 MG/ML 1 ML SYRINGE IVP PRN (23:16)
[2022-12-31] MEDS ORDERED: Potassium Replacement Protocol 1 EACH MISC MISCELLANE PRN (23:24)
[2023-01-01] MEDS: SODIUM CHLORIDE 0.9% 1,000 ML IV SCH ×2 (01:36→14:58)
[2023-01-01] MEDS: POTASSIUM CHLORIDE ER 20 MEQ TAB.ER PO SCH ×4 (01:36→20:03)
[2023-01-01] MEDS: HYDROmorphone 1 MG/ML 1 ML SYRINGE IVP PRN ×5 (04:44→20:01)
[2023-01-01] MEDS ORDERED: CHOLESTYRAMINE (WITH SUGAR) 4 GM PACKET PO PRN (07:48)
[2023-01-01] MEDS ORDERED: METOPROLOL SUCCINATE (ER) 25 MG TAB.ER.24H PO PRN (07:48)
[2023-01-01] MEDS ORDERED: MIDODRINE 5 MG TAB PO PRN (07:48)
[2023-01-01] MEDS ORDERED: MECLIZINE 12.5 MG TAB PO PRN (07:48)
[2023-01-01] MEDS ORDERED: ONDANSETRON 4 MG TAB PO PRN (07:48)
[2023-01-01] MEDS ORDERED: DICYCLOMINE 20 MG TAB PO PRN (07:48)
[2023-01-01] MEDS: ONDANSETRON 4 MG/2 ML VIAL IVP PRN ×2 (09:14→19:56)
[2023-01-01] MEDS: APIXABAN 5 MG TAB PO SCH ×2 (09:14→09:17)
[2023-01-01] MEDS: GABAPENTIN 300 MG CAP PO SCH ×4 (09:14→20:04)
[2023-01-01] MEDS: HYDROcodone/APAP 5-325MG 1 EACH TAB PO SCH ×4 (09:14→23:05)
[2023-01-01] MEDS: busPIRone HCl 5 MG TAB PO SCH ×2 (09:14→20:03)
[2023-01-01] MEDS: FAMOTIDINE 20 MG TAB PO SCH ×2 (09:15→20:03)
[2023-01-01] MEDS: LACOSAMIDE 50 MG TABLET PO SCH ×2 (09:15→20:03)
[2023-01-01] MEDS: PANTOPRAZOLE 40 MG TABLET PO SCH (09:15)
[2023-01-01] MEDS: SPIRONOLACTONE 25 MG TAB PO SCH ×3 (09:15→20:04)
[2023-01-01] MEDS: ZONISAMIDE 100 MG CAP PO SCH ×2 (09:41→20:04)
[2023-01-01] MEDS: SERTRALINE 100 MG TAB PO SCH (09:42)
[2023-01-01] MEDS: FLUDROCORTISONE 0.1 MG TAB PO SCH (09:42)
[2023-01-01] MEDS: BUMETANIDE 1 MG TAB PO SCH (09:42)
[2023-01-01] MEDS ORDERED: ALBUTEROL NEBULIZED 1.25 MG/3 ML INHALATION PRN (09:52)
--- NOTE | 2023-01-01 10:42 | HP ---
HISTORY AND PHYSICAL HISTORY OF PRESENT ILLNESS: A 57-year-old white female came in with infected left arm port, red and swollen. She had a fever of 104. She came to the emergency room for admission. She admits to nausea. No vomiting. No diarrhea. No cough, congestion, or phlegm production. She has been on IV antibiotics for bacteremia for Serratia marcescens at 4 different times. She is requesting port removal from her left arm. HOME MEDICINES: Reviewed. ALLERGIES: Reviewed. REVIEW OF SYSTEMS: 14-point review of systems otherwise negative. PAST MEDICAL HISTORY: Lupus, PEs, chronic renal disease, seizure disorder, antiphospholipid syndrome, antibody syndrome, pyoderma gangrenosum, renal artery embolism, chronic kidney disease stage 3, chronic hypokalemia, migraines. PAST SURGICAL HISTORY: Back surgery, breast surgery, cardiac valve replacement, , cholecystectomy, heart catheterization, hysterectomy, pacemakers, device placement of a pacer in 2013. SOCIAL HISTORY: No alcohol or drugs. Positive marijuana. FAMILY HISTORY: Father, cancer, dyslipidemia, hypertension. Mother, positive . PHYSICAL EXAMINATION: VITAL SIGNS: 102.6 T-max, currently temperature is 100.3. Pulse 106 to 80s, respiratory rate to 18, blood pressure is 119-129 over 70s to 80s, O2 93% to 97% on room air. CARDIOVASCULAR: S1, S2. LUNGS: Clear. GI: Soft. HEMATOLOGY: Negative Homans. PSYCH: Fair mood and affect. NEUROLOGIC: Alert and oriented x3. OPHTHALMOLOGIC: Pupils equal, round, and reactive. INTEGUMENT: Port on the left upper chest shows redness and swelling around the base of the port. Suspect sepsis secondary to recurrent Serratia most likely. Blood cultures pending. The source is probably the port which we have talked at the last 4 admissions. Wait for blood cultures. Dr. Luo will possibly get the Vascular Surgery to remove the port. The patient in agreement to do this, possibly having some mild dehydration, given fluids 75 an hour. Hypokalemia, we will monitor the potassium replacement. Prognosis guarded. Please see further orders. MMODL / IJN: [id number] /
[2023-01-01] MEDS: CEFEPIME 2 GM in SODIUM CHLORIDE 0.9% 100 ML IVPB SCH ×2 (11:14→20:02)
[2023-01-01] MEDS: diphenhydrAMINE 50 MG/ML 1 ML VIAL IM PRN ×2 (11:14→20:02)
--- NOTE | 2023-01-01 12:42 | P.GSCN ---
History of Present Illness Consult date: 01/01/23 History of present illness: Jeanette is a 57-year-old female well known to me for venous access who presents with nausea and abdominal pain and concerns of mild swelling on her left arm. Initially presentation in triage she did have 1 elevated temperature but no further evidence of pyrexia. She has been treated with IV antibiotics for bacteremia and her most recent blood cultures 12/28 were negative at this time she states she has nausea and continued loose stool and some occasional intermittent abdominal pain. 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 for low K+ History of Any Multi-Drug Resistant Organisms: C-DIFF Year Discovered:: 2021 MDRO Source:: Stool Past Surgical History: Back Surgery, Breast Surgery, Cardiac Valve Replacement, Section, Cholecystectomy, Heart Catheterization, Hysterectomy, Pacemake r Additional Past Surgical History / Comment(s): pacemaker d/t bradycardia/ hypotension with last one place in 2013 in [place], [place], 3 lower back surgeries, bilateral breast reduction. 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 She is independent. Smoking Status: Never smoker Past Alcohol Use History: None Reported Past Drug Use History: Marijuana Additional Drug Use History / Comment(s): Marijuana use prn per pt. - Past Family History Mother Additional Family Medical History / Comment(s): Mother at the age of 49 yrs after surgery for silicon breast implants with a leak that caused ARDS and DIC per pt Father Family Medical History: Cancer, Hyperlipidemia, Hypertension Additional Family Medical History / Comment(s): Father is a colon cancer survivor. Medications and Allergies Home Medications Medication Instructions Recorded Confirmed Type Atorvastatin [Lipitor] 40 mg PO HS 09/24/21 12/31/22 History Cholestyramine (with Sugar) 4 gm PO DAILY PRN 09/24/21 12/31/22 History [Cholestyramine Packet] Gabapentin 300 mg PO QID 09/24/21 12/31/22 History Sertraline [Zoloft] 200 mg PO DAILY 09/24/21 12/31/22 History Ubrogepant [Ubrelvy] 100 mg PO BID PRN 09/24/21 12/31/22 History rOPINIRole HCL [Requip] 2 mg PO HS 09/24/21 12/31/22 History Esomeprazole Magnesium [NexIUM] 40 mg PO DAILY 03/16/22 12/31/22 History Botox 200unit Injection 1 dose INJ Q84D 04/02/22 12/31/22 History Meclizine [Antivert] 12.5 mg PO Q8H PRN 04/02/22 12/31/22 History Diphenhydramine 50mg/Ml Vial 50 mg IM Q6H PRN 04/18/22 12/31/22 History Dicyclomine [Bentyl] 20 mg PO TID PRN #30 tablet 04/30/22 12/31/22 Rx Apixaban [Eliquis] 5 mg PO BID 05/29/22 12/31/22 History Spironolactone [Aldactone] 50 mg PO TID 06/11/22 12/31/22 History busPIRone HCl [Buspar] 5 mg PO BID 06/11/22 12/31/22 History Bumetanide [BUMEX] 2 mg PO DAILY 06/24/22 12/31/22 History Zonisamide [Zonegran] 100 mg PO Q12HR 30 Days #60 cap 07/26/22 12/31/22 Rx Lidocaine 5% Patch [Lidoderm 5% 1 patch TRANSDERM DAILY PRN 08/26/22 12/31/22 History Patch] Fludrocortisone [Florinef] 0.1 mg PO DAILY 09/20/22 12/31/22 History Metoprolol Succinate (ER) [Toprol 25 mg PO DAILY PRN 10/29/22 12/31/22 History XL] Midodrine [ProAmatine] 5 mg PO TID PRN 10/29/22 12/31/22 History Lacosamide [Vimpat] 50 mg PO BID tab 11/05/22 12/31/22 Rx Nystatin 100,000 Unit/gm Powd 1 applic TOPICAL BID 60 Days #60 11/05/22 12/31/22 Rx [Mycostatin Powder] each Nystatin 100,000 Unit/ml Susp 500,000 unit PO QID 30 Days #300 ml 11/05/22 12/31/22 Rx [Mycostatin Oral Susp] HYDROcodone/APAP 5-325MG [[place] 1 tab PO TID 11/29/22 12/31/22 History 5-325] Levalbuterol Nebulized [Xopenex 0.31 mg INHALATION RT-TID PRN 11/29/22 12/31/22 History Nebulized (Pediatric)] Ondansetron [Zofran] 4 mg PO Q8H PRN 11/29/22 12/31/22 History Potassium Chloride ER [K-Dur 20] 20 meq PO BID tab 12/03/22 12/31/22 Rx Famotidine [Pepcid] 20 mg PO BID #14 tablet 12/13/22 12/31/22 Rx Allergies Allergy/AdvReac Type Severity Reaction Status Date / Time Penicillins Allergy Severe Anaphylaxis Verified 12/31/22 23:12 vancomycin Allergy Severe Swelling Verified 12/31/22 23:12 in lips cefepime Allergy Swelling Verified 12/31/22 23:12 clindamycin Allergy Anaphylaxis Verified 12/31/22 23:12 dexamethasone [From Decadron] Allergy Unknown Verified 12/31/22 23:12 Influenza Virus Vaccines Allergy Unknown Verified 12/31/22 23:12 latex Allergy Unknown Verified 12/31/22 23:12 morphine Allergy Unknown Verified 12/31/22 23:12 prochlorperazine Allergy Unknown Verified 12/31/22 23:12 [From Compazine] galcanezumab-gnlm AdvReac Confusion, Verified 12/31/22 23:12 [From Emgality Pen] increased blood pressure metoclopramide [From Reglan] AdvReac "felt like Verified 12/31/22 23:12 I needed to jump out of my skin" Surgical - Exam Vital Signs Temp Pulse Resp BP Pulse Ox 102.6 F H 106 H 18 119/76 97 12/31/22 19:38 12/31/22 19:38 12/31/22 19:38 12/31/22 19:38 12/31/22 19:38 Gen. is a pleasant and cooperative chronically ill-appearing female in no acute distress. Heart is regular at this time. Lungs are clear. Abdomen is soft. Left upper extremity port in place. Tegaderm intact. No significant erythema. Patient is aggressively palpating the entirety of her upper arm saying it hurts. No fluctuance. No crepitus. Results - Labs 12/31/22 20:28 12/31/22 20:28 Abnormal Lab Results - Last 24 Hours (Table) 12/31/22 12/31/22 12/31/22 Range/Units 20:28 20:28 20:28 Lymphocytes # 0.8 L (1.0-4.8) k/uL Potassium 3.2 L (3.5-5.1) mmol/L Chloride 96 L (98-107) mmol/L BUN 24 H (7-17) mg/dL Creatinine 1.58 H (0.52-1.04) mg/dL Glucose 172 H (74-99) mg/dL Plasma Lactic Acid Raffi 2.4 H* (0.7-2.0) mmol/L Total Protein 8.4 H (6.3-8.2) g/dL Diabetes panel 12/31/22 Range/Units 20:28 Sodium 137 (137-145) mmol/L Potassium 3.2 L (3.5-5.1) mmol/L Chloride 96 L (98-107) mmol/L Carbon Dioxide 25 (22-30) mmol/L BUN 24 H (7-17) mg/dL Creatinine 1.58 H (0.52-1.04) mg/dL Glucose 172 H (74-99) mg/dL Calcium 9.7 (8.4-10.2) mg/dL AST 34 (14-36) U/L ALT 29 (4-34) U/L Alkaline Phosphatase 83 (38-126) U/L Total Protein 8.4 H (6.3-8.2) g/dL Albumin 4.9 (3.5-5.0) g/dL Calcium panel 12/31/22 Range/Units 20:28 Calcium 9.7 (8.4-10.2) mg/dL Albumin 4.9 (3.5-5.0) g/dL Pituitary panel 12/31/22 Range/Units 20:28 Sodium 137 (137-145) mmol/L Potassium 3.2 L (3.5-5.1) mmol/L Chloride 96 L (98-107) mmol/L Carbon Dioxide 25 (22-30) mmol/L BUN 24 H (7-17) mg/dL Creatinine 1.58 H (0.52-1.04) mg/dL Glucose 172 H (74-99) mg/dL Calcium 9.7 (8.4-10.2) mg/dL Adrenal panel 12/31/22 Range/Units 20:28 Sodium 137 (137-145) mmol/L Potassium 3.2 L (3.5-5.1) mmol/L Chloride 96 L (98-107) mmol/L Carbon Dioxide 25 (22-30) mmol/L BUN 24 H (7-17) mg/dL Creatinine 1.58 H (0.52-1.04) mg/dL Glucose 172 H (74-99) mg/dL Calcium 9.7 (8.4-10.2) mg/dL Total Bilirubin 0.7 (0.2-1.3) mg/dL AST 34 (14-36) U/L ALT 29 (4-34) U/L Alkaline Phosphatase 83 (38-126) U/L Total Protein 8.4 H (6.3-8.2) g/dL Albumin 4.9 (3.5-5.0) g/dL Assessment and Plan Assessment: Left upper extremity port in place No bacteremia on recent culture Poor peripheral access Plan: At this time long discussion again had with patient and infectious disease. No clinical evidence of infection to port, No eidence of further fever, no leukocytosis, Blood cx 12/28 negative. Await blood cultures from this admission. If blood cultures are positive, we'll remove port however at this point no evidence of continued bacteremia. Discussed with patient importance of appropriate tissue handling as to not cause irritation/trauma to the site itself.
[2023-01-01] MEDS: HEPARIN SODIUM,PORCINE 5,000 UNIT/ML 1 ML VIAL SQ SCH ×2 (20:02→20:08)
[2023-01-01] MEDS: ATORVASTATIN 40 MG TAB PO SCH (20:03)
--- NOTE | 2023-01-01 21:00 | P.CONS ---
History of Present Illness - Reason for Consult Consult date: 01/01/23 - History of Present Illness Patient is a 57-year-old female with multiple comorbidities including seizure disorder antiphospholipid antibody syndrome history of PE and did have a poor IV access requiring multiple IV access recently seem to have a problem with recurrent Serratia marcescens bacteremia for the patient did have extensive work-up that has been negative it was possibly related to her left arm IV site which was not discontinued on the last admission as the patient was close to be high risk for placing another IV access by vascular surgery patient was sent home on a 4-day course of IV cefepime with the patient has recently completed and the patient did have a follow-up blood culture done on 12/28/2022 that was negative patient mention however IV access was discontinued on Tuesday after she did have her last dose of antibiotic and the patient did have a blood draw on that was done through that IV access the next day the patient started having the rigors and chills fever patient also complaining of pain to the upper abdominal area most on the right side describing to be sharp intensity 7-8 out of 10 no radiation associated nausea no vomiting no diarrhea no constipation no burning or frequency. No chest pain shortness of breath or cough with the symptoms the patient was evaluated on presentation to the hospital patient did have a fever of 102.6 F patient was tachycardic not hypotensive or hypoxic did have a normal white count BUN and creatinine has been mildly elevated lactic is 2.4 liver is abnormal urine is negative influenza RSV and COVID testing was negative patient did have a chest x-ray report negative for acute infiltrate CT abdominal pelvis did not show acute abnormality patient did receive a dose of cefepime in the ER subsequently has been admitted to hospital infectious disease was consulted for further management of antibiotic therapy Past Medical History Past Medical History: Blood Disorder, Pulmonary Embolus (PE), Renal Disease, Seizure Disorder Additional Past Medical History / Comment(s): Antiphospholipid antibody syndrome which causes clots and bleeding, multiple PEs, R renal artery embolism/now atrophic, CKD stage III, hypotension, hypokalemia especially w/stress, lupus, pyoderm grangrenosum, decreased pituitary function pt states d/t clot, migraines, chonic cervical/back pain, herniated discs, RLS, vertigo, recent adm. for low K+ History of Any Multi-Drug Resistant Organisms: C-DIFF Year Discovered:: 2021 MDRO Source:: Stool Past Surgical History: Back Surgery, Breast Surgery, Cardiac Valve Replacement, Section, Cholecystectomy, Heart Catheterization, Hysterectomy, Pacemaker Additional Past Surgical History / Comment(s): pacemaker d/t bradycardia/hypotension with last one place in 2013 in [place], [place], 3 lower back surgeries, bilateral breast reduction. 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 She is independent. Smoking Status: Never smoker Past Alcohol Use History: None Reported Past Drug Use History: Marijuana Additional Drug Use History / Comment(s): Marijuana use prn per pt. - Past Family History Mother Additional Family Medical History / Comment(s): Mother at the age of 49 yrs after surgery for silicon breast implants with a leak that caused ARDS and DIC per pt Father Family Medical History: Cancer, Hyperlipidemia, Hypertension Additional Family Medical History / Comment(s): Father is a colon cancer survivor. Medications and Allergies Home Medications Medication Instructions Recorded Confirmed Type Atorvastatin [Lipitor] 40 mg PO HS 09/24/21 12/31/22 History Cholestyramine (with Sugar) 4 gm PO DAILY PRN 09/24/21 12/31/22 History [Cholestyramine Packet] Gabapentin 300 mg PO QID 09/24/21 12/31/22 History Sertraline [Zoloft] 200 mg PO DAILY 09/24/21 12/31/22 History Ubrogepant [Ubrelvy] 100 mg PO BID PRN 09/24/21 12/31/22 History rOPINIRole HCL [Requip] 2 mg PO HS 09/24/21 12/31/22 History Esomeprazole Magnesium [NexIUM] 40 mg PO DAILY 03/16/22 12/31/22 History Botox 200unit Injection 1 dose INJ Q84D 04/02/22 12/31/22 History Meclizine [Antivert] 12.5 mg PO Q8H PRN 04/02/22 12/31/22 History Diphenhydramine 50mg/Ml Vial 50 mg IM Q6H PRN 04/18/22 12/31/22 History Dicyclomine [Bentyl] 20 mg PO TID PRN #30 tablet 04/30/22 12/31/22 Rx Apixaban [Eliquis] 5 mg PO BID 05/29/22 12/31/22 History Spironolactone [Aldactone] 50 mg PO TID 06/11/22 12/31/22 History busPIRone HCl [Buspar] 5 mg PO BID 06/11/22 12/31/22 History Bumetanide [BUMEX] 2 mg PO DAILY 06/24/22 12/31/22 History Zonisamide [Zonegran] 100 mg PO Q12HR 30 Days #60 cap 07/26/22 12/31/22 Rx Lidocaine 5% Patch [Lidoderm 5% 1 patch TRANSDERM DAILY PRN 08/26/22 12/31/22 History Patch] Fludrocortisone [Florinef] 0.1 mg PO DAILY 09/20/22 12/31/22 History Metoprolol Succinate (ER) [Toprol 25 mg PO DAILY PRN 10/29/22 12/31/22 History XL] Midodrine [ProAmatine] 5 mg PO TID PRN 10/29/22 12/31/22 History Lacosamide [Vimpat] 50 mg PO BID tab 11/05/22 12/31/22 Rx Nystatin 100,000 Unit/gm Powd 1 applic TOPICAL BID 60 Days #60 11/05/22 12/31/22 Rx [Mycostatin Powder] each Nystatin 100,000 Unit/ml Susp 500,000 unit PO QID 30 Days #300 ml 11/05/22 12/31/22 Rx [Mycostatin Oral Susp] HYDROcodone/APAP 5-325MG [[place] 1 tab PO TID 11/29/22 12/31/22 History 5-325] Levalbuterol Nebulized [Xopenex 0.31 mg INHALATION RT-TID PRN 11/29/22 12/31/22 History Nebulized (Pediatric)] Ondansetron [Zofran] 4 mg PO Q8H PRN 11/29/22 12/31/22 History Potassium Chloride ER [K-Dur 20] 20 meq PO BID tab 12/03/22 12/31/22 Rx Famotidine [Pepcid] 20 mg PO BID #14 tablet 12/13/22 12/31/22 Rx Allergies Allergy/AdvReac Type Severity Reaction Status Date / Time Penicillins Allergy Severe Anaphylaxis Verified 12/31/22 23:12 vancomycin Allergy Severe Swelling Verified 12/31/22 23:12 in lips cefepime Allergy Swelling Verified 12/31/22 23:12 clindamycin Allergy Anaphylaxis Verified 12/31/22 23:12 dexamethasone [From Decadron] Allergy Unknown Verified 12/31/22 23:12 Influenza Virus Vaccines Allergy Unknown Verified 12/31/22 23:12 latex Allergy Unknown Verified 12/31/22 23:12 morphine Allergy Unknown Verified 12/31/22 23:12 prochlorperazine Allergy Unknown Verified 12/31/22 23:12 [From Compazine] galcanezumab-gnlm AdvReac Confusion, Verified 12/31/22 23:12 [From Emgality Pen] increased blood pressure metoclopramide [From Reglan] AdvReac "felt like Verified 12/31/22 23:12 I needed to jump out of my skin" Physical Exam Vitals: Vital Signs Temp Pulse Pulse Resp BP BP Pulse Ox 01/01/23 07:30 98.0 F 79 16 146/84 97 01/01/23 00:00 98.7 F 70 16 106/71 93 L 12/31/22 23:18 71 18 124/78 96 12/31/22 21:55 99.5 F 75 18 119/72 95 12/31/22 20:57 100.3 F H 89 18 129/80 93 L 12/31/22 19:56 101 H 18 129/81 97 12/31/22 19:38 102.6 F H 106 H 18 119/76 97 Intake and Output 12/31/22 01/01/23 01/01/23 22:59 06:59 14:59 Intake Total 700 240 Balance 700 240 Intake: Intake, IV Titration 700 Amount Cefepime 2 gm In Sodium 100 Chloride 0.9% 100 ml @ 200 mls/hr IVPB ONCE STA Rx#:[id number] Sodium Chloride 0.9% 1, 600 000 ml @ 75 mls/hr IV . [id number] ASAD Rx#:[id number] Oral 240 Other: # Voids 1 Weight 69.4 kg 69.4 kg Results CBC & Chem 7: 01/02/23 06:46 01/02/23 06:46 Labs: Abnormal Lab Results - Last 24 Hours (Table) 12/31/22 12/31/22 12/31/22 Range/Units 20:28 20:28 20:28 Lymphocytes # 0.8 L (1.0-4.8) k/uL Potassium 3.2 L (3.5-5.1) mmol/L Chloride 96 L (98-107) mmol/L BUN 24 H (7-17) mg/dL Creatinine 1.58 H (0.52-1.04) mg/dL Glucose 172 H (74-99) mg/dL Plasma Lactic Acid Raffi 2.4 H* (0.7-2.0) mmol/L Total Protein 8.4 H (6.3-8.2) g/dL Assessment and Plan Plan: 1patient presented to the hospital with sepsis in this patient has a fever tachycardia elevated lactic acid high clinical suspicious for recurrent MRSA bacteremia related to the left arm IV site as the patient did have extensive work-up in the past that was negative for any other focus of infection patient did complain of some abdominal pain CT abdominal pain has been negative for acute infiltrate chest x-ray was negative urine has been negative 2-day discussion with the vascular surgeon patient benefit from removal of the current IV site 3-blood culture has been obtained those will be followed 4-we will add cefepime 2 g every 8 hours We will follow on clinical condition and cultures to further adjust medication if needed Thank you for this consultation we will follow the patient along with you Dictation was produced using [employer] dictation software. please excuse any grammatical, word or spelling errors. Time with Patient: Greater than 30
[2023-01-02] MEDS: HYDROmorphone 1 MG/ML 1 ML SYRINGE IVP PRN ×5 (02:42→21:32)
[2023-01-02] MEDS: ONDANSETRON 4 MG/2 ML VIAL IVP PRN ×2 (02:56→12:19)
[2023-01-02] MEDS: diphenhydrAMINE 50 MG/ML 1 ML VIAL IM PRN ×3 (03:04→20:38)
[2023-01-02] MEDS: BUMETANIDE 1 MG TAB PO SCH (08:10)
[2023-01-02] MEDS: SPIRONOLACTONE 25 MG TAB PO SCH ×3 (08:15→20:37)
[2023-01-02] MEDS: LACOSAMIDE 50 MG TABLET PO SCH ×2 (08:15→20:36)
[2023-01-02] MEDS: busPIRone HCl 5 MG TAB PO SCH ×2 (08:15→20:36)
[2023-01-02] MEDS: SERTRALINE 100 MG TAB PO SCH (08:17)
[2023-01-02] MEDS: FAMOTIDINE 20 MG TAB PO SCH ×2 (08:17→20:36)
[2023-01-02] MEDS: HEPARIN SODIUM,PORCINE 5,000 UNIT/ML 1 ML VIAL SQ SCH ×2 (08:17→20:39)
[2023-01-02] MEDS: POTASSIUM CHLORIDE ER 20 MEQ TAB.ER PO SCH ×2 (08:17→20:37)
[2023-01-02] MEDS: HYDROcodone/APAP 5-325MG 1 EACH TAB PO SCH ×3 (08:17→20:44)
[2023-01-02] MEDS: GABAPENTIN 300 MG CAP PO SCH ×4 (08:17→20:37)
[2023-01-02] MEDS: PANTOPRAZOLE 40 MG TABLET PO SCH (08:17)
[2023-01-02] MEDS: FLUDROCORTISONE 0.1 MG TAB PO SCH (08:17)
[2023-01-02] MEDS: ZONISAMIDE 100 MG CAP PO SCH ×2 (08:17→20:36)
[2023-01-02] MEDS: SODIUM CHLORIDE 0.9% 1,000 ML IV SCH ×2 (08:33→16:12)
[2023-01-02] MEDS ORDERED: PROPOFOL 10 MG/ML 20 ML VIAL IV ONE (09:12)
[2023-01-02] MEDS ORDERED: MIDAZOLAM 2 MG/2 ML VIAL ONE (09:12)
[2023-01-02] MEDS ORDERED: fentaNYL (PF) 50 MCG/ML 2 ML AMP ONE (09:12)
[2023-01-02] MEDS ORDERED: LACTATED RINGERS 1,000 ML IV ONE (09:19)
[2023-01-02] MEDS ORDERED: BUPIVACAINE (PF) 0.25% 10 ML VIAL SQ ONE ×2 (09:26)
--- NOTE | 2023-01-02 09:27 | XR ---
EXAMINATION TYPE: XR chest 1V confirm line [facility] DATE OF EXAM: 01/02/2023 9:16 AM COMPARISON: Chest radiographs from 12/31/2022 TECHNIQUE: XR chest 1V confirm line [facility] Portable AP radiograph of the chest. CLINICAL INDICATION:Female, 57 years old with history of Confirm Central Line Placement; FINDINGS: Lungs/Pleura: There is no evidence of pleural effusion, focal consolidation, or pneumothorax. Chronic senescent parenchymal change. Pulmonary vascularity: Unremarkable. Heart/mediastinum: Cardiomediastinal silhouette is enlarged and stable. Post mitral valve repair [place] nges. Single-lead cardiac conduction device overlying the right hemithorax with lead projecting over the right atrium. Loop recorder overlies the left chest. Musculoskeletal: No acute osseous pathology. Left PICC with tip in the superior cavoatrial junction. Unchanged position. Interval placement of rig ht IJ central venous catheter with tip in the right atrium. IMPRESSION: Interval placement of right IJ central venous catheter tip in the right atrium. No pneumothorax.
[2023-01-02] MEDS ORDERED: ceFAZolin 1,000 MG in SODIUM CHLORIDE 0.9% 1,000 ML IRRIGATION ONE (09:28)
[2023-01-02 09:46] LABS: Basophils # (A) 0.04 X 10*3/uL (0.00-0.10); Basophils % (A) 0.7 %; Elliptocytes 2+; Eosinophils # (A) 0.14 X 10*3/uL (0.04-0.35); Eosinophils % (A) 2.3 %; HGB 11.6 d/dL (12.0-15.0); Lymphocytes # (A) 0.95 X 10*3/uL (0.90-5.00); Lymphocytes % (A) 15.8 %; MCH 26.9 pg (27.0-32.0); MCHC 29.7 d/dL (32.0-37.0); MCV 90.3 FL (80.0-97.0); Mean Platelet Volume 10.9 FL (9.5-12.2); Monocytes # (A) 0.71 X 10*3/uL (0.20-1.00); Monocytes % (A) 11.8 %; NRBC Per 100 WBC 0 X 10*3/uL (0.00-0.01); Neutrophils # (A) 4.14 X 10*3/uL (1.80-7.70); Neutrophils % (A) 69.1 %; Platelet Count 222 X 10*3/uL (140-440); RBC 4.32 X 10*6/uL (4.10-5.20); RDW 14.3 % (11.5-14.5)
--- NOTE | 2023-01-02 10:02 | P.ANPRN ---
Procedure Note - Anesthesia - Invasive Line Right Central Line Time Out Performed: Yes (08:46) Date of Procedure: 01/02/23 Time of Procedure: 08:46 Location of Patient: Phase I Preparation: Sterile Prep, Sterile Dressing Central Line Location: Internal Jugular Ultrasound Used: Yes Purpose - Visualization and Identification of Vasculature: Yes Image Stored and Saved: No Narrative: Central line placement per sterile protocol utilized.
[2023-01-02] MEDS ORDERED: HYDROmorphone 0.5 MG/0.5 ML SYRINGE IVP ONE (10:45)
[2023-01-02] MEDS ORDERED: diphenhydrAMINE 50 MG/ML 1 ML VIAL IVP ONE (10:50)
[2023-01-02 10:52] LABS: ALT 21 U/L (8-44); AST 27 U/L (13-35); Albumin 4.4 d/dL (3.8-4.9); Albumin/Globulin Ratio 1.83 Ratio (1.60-3.17); Alkaline Phosphatase 66 U/L (41-126); Blood Urea Nitrogen 21.9 mg/dL (9.0-27.0); Calcium 9.5 mg/dL (8.7-10.3); Carbon Dioxide 23.3 mmol/L (21.6-31.8); Chloride 103 mmol/L (96-109); Globulin 2.4 d/dL (1.6-3.3); Glucose 117 mg/dL (70-110); Potassium 4.4 mmol/L (3.5-5.5); Sodium 141 mmol/L (135-145); Total Bilirubin <0.2 mg/dL (0.3-1.2); Total Protein 6.8 d/dL (6.2-8.2)
--- NOTE | 2023-01-02 10:54 | P.OP ---
Date of Procedure: 01/02/23 Preoperative Diagnosis: infected left upper extremity port Postoperative Diagnosis: same Procedure(s) Performed: Excision of upper extremity port and drainage of abscess Anesthesia: MAC, local Surgeon: Rafal Vasquez Estimated Blood Loss (ml): 10 Pathology: none sent Condition: stable Disposition: PACU Indications for Procedure: 57 year old female with history of left upper extremity mediport with multiple infections presents to the OR for explantation and drainage. Description of Procedure: After written and informed consent the patient was brought to the operative room and laid in a supine position with his left arm placed on an armboard. The left arm was prepped and draped in the usual fashion after appropriate anesthesia was performed per the anesthesiologist. Local anesthetic was infused overlying the left upper extremity mediport and a small incision was performed with a 15 blade scalpel and dissection was carried down to the mediport and circumferential dissection with electro-cautery. The port was then removed and tip sent for culture. The wound site was then cultured. The area was then irrigated with antibiotic solution and incision was then closed with 2-0 Nylon suture over a sachin drain. The area was then cleansed and dressings placed. The patient tolerated the procedure well.
[2023-01-02] MEDS: CEFEPIME 2 GM in SODIUM CHLORIDE 0.9% 100 ML IVPB SCH ×2 (11:45→20:38)
--- NOTE | 2023-01-02 16:05 | P.PN ---
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 On today's evaluation that is 01/02/2023, patient denies having any fever or chills, the patient pain to the left upper extremity IV site is currently controlled patient denies having any chest pain shortness of breath or cough no abdominal pain or diarrhea Patient did have a hemoglobin of 11 (white count is 6.0 creatinine is 1.5, blood culture with gram-negative bacilli Objective - Vital Signs Vital signs: Vital Signs Temp 99.8 F H 01/02/23 15:00 Pulse 74 01/02/23 15:00 Resp 16 01/02/23 15:00 BP 125/61 01/02/23 15:00 Pulse Ox 93 L 01/02/23 15:00 FiO2 Intake & Output 01/01/23 01/02/23 01/02/23 18:59 06:59 18:59 Intake Total 1311 200 301 Output Total 10 Balance 1311 200 291 Intake: IV 301 Intake, IV Titration 200 Amount Cefepime 2 gm In Sodium 100 Chloride 0.9% 100 ml @ 200 mls/hr IVPB ONCE STA Rx#:[id number] Cefepime 2 gm In Sodium 100 Chloride 0.9% 100 ml @ 25 mls/hr IVPB Q12HR [facility] Rx #:[id number] Oral 1311 Output: Estimated Blood Loss 10 Other: # Voids 3 2 - Exam GENERAL DESCRIPTION: A middle-age female up in bed in no distress RESPIRATORY SYSTEM: Unlabored breathing , decreased breath sounds at bases HEART: S1 S2 regular rate and rhythm , ABDOMEN: Soft , no tenderness EXTREMITIES: Left upper extremity is currently dressed minimal blood stained drainage on the dressing - Labs CBC & Chem 7: 01/02/23 06:46 01/02/23 06:46 Labs: Abnormal Lab Results - Last 24 Hours (Table) 01/02/23 01/02/23 Range/Units 06:46 06:46 Hgb 11.6 L (12.0-15.0) d/dL MCH 26.9 L (27.0-32.0) pg MCHC 29.7 L (32.0-37.0) d/dL Elliptocytes 2+ A Anion Gap 14.70 H (4.00-12.00) mmol/L Est GFR (CKD-EPI) 40 L (>=60) Glucose 117 H (70-110) mg/dL Total Bilirubin <0.2 L (0.3-1.2) mg/dL Microbiology - Last 24 Hours (Table) 12/31/22 20:13 Blood Culture Gram Stain - Preliminary Blood Blood Culture - Preliminary Gram Neg Bacilli 12/31/22 20:28 Blood Culture Gram Stain - Preliminary Blood Assessment and Plan (1) Abscess of left arm Current Visit: Yes Status: Acute Code(s): L02.414 - CUTANEOUS ABSCESS OF LEFT UPPER LIMB SNOMED Code(s): 14415794903947670 (2) Bacteremia Current Visit: Yes Status: Acute Code(s): R78.81 - BACTEREMIA SNOMED Code(s): 4165873 Plan: 1patient presented to the hospital with sepsis in this patient has a fever tachycardia elevated lactic acid high clinical suspicious for recurrent MRSA bacteremia related to the left arm IV site as the patient did have extensive work-up in the past that was negative for any other focus of infection patient did complain of some abdominal pain CT abdominal pain has been negative for acute infiltrate chest x-ray was negative urine has been negative 2-blood cultures growing gram-negative bacilli with ID sensitivities pending 3-patient is status post removal of the infected port and drainage of the abscess completed on 01/02/2023, the local cultures pending 4patient to continue with the cefepime while waiting for the cultures to finalize Multiple questions Answered Dictation was produced using [employer] software. please excuse any grammatical, word or spelling errors.
[2023-01-02] MEDS: ATORVASTATIN 40 MG TAB PO SCH (20:36)
[2023-01-02] MEDS: NYSTATIN 100,000 UNIT/GM POWD 15 GM TOPICAL SCH (22:40)
--- NOTE | 2023-01-02 22:46 | PN ---
PROGRESS NOTE SUBJECTIVE: Dania Meza remains on cefepime for bacteremia. She appears swollen. She is status post removal of infected port placement. OBJECTIVE: VITAL SIGNS: O2 is 93% on 2 L, temperature 99.8, blood pressure 125/61, pulse 74, respiratory rate 16 to 18. CARDIOVASCULAR: S1, S2. HEMATOLOGY: Negative Homans. LABORATORY DATA: Hemoglobin is 11.6. GFR is 40, BUN is 21, creatinine is 1.5, which is improved. Glucose is 100. Lactic acid is now normal at 1.0. Prognosis is extremely guarded after port replacement. We will maintain IV antibiotics. Wait for blood cultures to come back. MMODL / IJN: [id number] /
[2023-01-03] MEDS: HYDROmorphone 1 MG/ML 1 ML SYRINGE IVP PRN ×6 (01:34→20:02)
[2023-01-03] MEDS: SODIUM CHLORIDE 0.9% 1,000 ML IV SCH ×2 (04:08→18:50)
[2023-01-03] MEDS: IPRATROPIUM 0.5 MG/2.5 ML NEBU INHALATION SCH ×4 (07:49→20:32)
[2023-01-03] MEDS: BUDESONIDE 0.5 MG/2 ML NEBU INHALATION SCH ×2 (07:49→20:32)
[2023-01-03] MEDS: NYSTATIN 100,000 UNIT/GM POWD 15 GM TOPICAL SCH ×2 (08:33→21:37)
[2023-01-03] MEDS: ONDANSETRON 4 MG/2 ML VIAL IVP PRN ×2 (08:34→15:37)
[2023-01-03] MEDS: HEPARIN SODIUM,PORCINE 5,000 UNIT/ML 1 ML VIAL SQ SCH ×2 (08:41→20:02)
[2023-01-03] MEDS: busPIRone HCl 5 MG TAB PO SCH ×2 (08:41→20:02)
[2023-01-03] MEDS: SERTRALINE 100 MG TAB PO SCH (08:42)
[2023-01-03] MEDS: PANTOPRAZOLE 40 MG TABLET PO SCH (08:42)
[2023-01-03] MEDS: BUMETANIDE 1 MG TAB PO SCH (08:42)
[2023-01-03] MEDS: FLUDROCORTISONE 0.1 MG TAB PO SCH (08:42)
[2023-01-03] MEDS: POTASSIUM CHLORIDE ER 20 MEQ TAB.ER PO SCH ×3 (08:42→21:38)
[2023-01-03] MEDS: ZONISAMIDE 100 MG CAP PO SCH ×2 (08:42→20:01)
[2023-01-03] MEDS: FAMOTIDINE 20 MG TAB PO SCH (08:43)
[2023-01-03] MEDS: CEFEPIME 2 GM in SODIUM CHLORIDE 0.9% 100 ML IVPB SCH ×2 (08:43→23:13)
[2023-01-03] MEDS: SPIRONOLACTONE 25 MG TAB PO SCH ×3 (08:43→20:01)
[2023-01-03] MEDS: diphenhydrAMINE 50 MG/ML 1 ML VIAL IM PRN ×3 (08:44→23:13)
[2023-01-03] MEDS: GABAPENTIN 300 MG CAP PO SCH ×4 (08:55→20:00)
[2023-01-03] MEDS: LACOSAMIDE 50 MG TABLET PO SCH ×2 (08:55→20:02)
[2023-01-03] MEDS: HYDROcodone/APAP 5-325MG 1 EACH TAB PO SCH ×3 (11:14→20:03)
[2023-01-03] MEDS: APIXABAN 5 MG TAB PO SCH (20:02)
[2023-01-03] MEDS: ATORVASTATIN 40 MG TAB PO SCH (20:02)
--- NOTE | 2023-01-03 22:07 | PN ---
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 The port has been removed. Waiting for final culture and sensitivity and Dr. Luo's recommendations prior to discharge. OBJECTIVE: VITAL SIGNS: Temp 99.8, pulse 74, respiratory rate 16, blood pressure 120s over 60s, O2 of 93%. CARDIOVASCULAR: S1, S2. LUNGS: Transmitted upper sounds. HEMATOLOGY: Negative for Homans. PSYCH: Fair mood and affect. NEUROLOGIC: Alert and oriented x3. LABORATORY DATA: White count is 6, hemoglobin is 11.5. ASSESSMENT: Abscess, left arm, bacteremia, tachycardic, elevated lactic acid, sepsis, recurrent MRSA bacteremia. ID sensitivities are pending for Serratia marcescens, possibly awaiting for final cultures and home antibiotics to be set up for Dania Susana prior to discharge. Wait for Dr. Luo's recommendations. MMODL / IJN: [id number] /
[2023-01-04] MEDS: HYDROmorphone 1 MG/ML 1 ML SYRINGE IVP PRN ×3 (05:19→13:27)
[2023-01-04] MEDS: ONDANSETRON 4 MG/2 ML VIAL IVP PRN (06:44)
[2023-01-04 07:56] VITALS: BP 119/70; PULSE 77; RESP 20; TEMP 98.5
[2023-01-04] MEDS: BUDESONIDE 0.5 MG/2 ML NEBU INHALATION SCH (08:01)
[2023-01-04] MEDS: IPRATROPIUM 0.5 MG/2.5 ML NEBU INHALATION SCH ×3 (08:01→15:07)
--- NOTE | 2023-01-04 08:34 | P.PN ---
Subjective Progress Note Date: 01/04/23 Principal diagnosis: left upper extremity infected mediport Patient seen and examined. Doing well today. Pain at the left upper extremity controlled. Some drainage noted. No fevers, chills, chest pain or shortness of breath. Complaining of right arm pain from previous IV infiltration. Objective - Vital Signs Vital signs: Vital Signs Temp 98.5 F 01/04/23 07:00 Pulse 77 01/04/23 07:00 Resp 20 01/04/23 07:00 BP 119/70 01/04/23 07:00 Pulse Ox 93 L 01/04/23 07:00 FiO2 Intake & Output 01/03/23 01/04/23 01/04/23 18:59 06:59 18:59 Other: # Voids 1 1 - Exam left upper extremity wound site clean, with sutures intact. [place] drain present. Minimal drainage. Erythema improved. Right upper extremity tender to palpation at the antecubital region. No abscess noted. Right IJ catheter clean, dry and intact. - Labs CBC & Chem 7: 01/02/23 06:46 01/02/23 06:46 Labs: Microbiology - Last 24 Hours (Table) 12/31/22 20:13 Blood Culture Gram Stain - Final Blood Blood Culture - Final Serratia marcescens 12/31/22 20:28 Blood Culture Gram Stain - Final Blood Blood Culture - Final Serratia marcescens Assessment and Plan Assessment: Infected left upper extremity mediport POD 2 excision of mediport Plan: antibiotics per ID can remove [place] drain tomorrow continue local wound care Follow up with Dr. Gomez in 2 weeks.
[2023-01-04 08:51] LABS: BUN/Creat Ratio 11.92 Ratio (12.00-20.00); Blood Urea Nitrogen 15.5 mg/dL (9.0-27.0); Calcium 9.2 mg/dL (8.7-10.3); Carbon Dioxide 20.5 mmol/L (21.6-31.8); Chloride 103 mmol/L (96-109); Glucose 74 mg/dL (70-110); Potassium 3.8 mmol/L (3.5-5.5); Sodium 139 mmol/L (135-145)
[2023-01-04] MEDS ORDERED: FAMOTIDINE 20 MG TAB PO SCH (09:00)
[2023-01-04] MEDS: APIXABAN 5 MG TAB PO SCH (09:34)
[2023-01-04] MEDS: PANTOPRAZOLE 40 MG TABLET PO SCH (09:34)
[2023-01-04] MEDS: SERTRALINE 100 MG TAB PO SCH (09:34)
[2023-01-04] MEDS: SPIRONOLACTONE 25 MG TAB PO SCH (09:34)
[2023-01-04] MEDS: POTASSIUM CHLORIDE ER 20 MEQ TAB.ER PO SCH (09:34)
[2023-01-04] MEDS: busPIRone HCl 5 MG TAB PO SCH (09:34)
[2023-01-04] MEDS: FLUDROCORTISONE 0.1 MG TAB PO SCH (09:35)
[2023-01-04] MEDS: ZONISAMIDE 100 MG CAP PO SCH (09:35)
[2023-01-04] MEDS: LACOSAMIDE 50 MG TABLET PO SCH (09:35)
[2023-01-04] MEDS: BUMETANIDE 1 MG TAB PO SCH (09:35)
[2023-01-04] MEDS: GABAPENTIN 300 MG CAP PO SCH ×2 (09:35→14:05)
[2023-01-04] MEDS: CEFEPIME 2 GM in SODIUM CHLORIDE 0.9% 100 ML IVPB SCH (09:35)
[2023-01-04] MEDS: diphenhydrAMINE 50 MG/ML 1 ML VIAL IM PRN (09:36)
[2023-01-04] MEDS: HEPARIN SODIUM,PORCINE 5,000 UNIT/ML 1 ML VIAL SQ SCH (10:17)
[2023-01-04] MEDS: HYDROcodone/APAP 5-325MG 1 EACH TAB PO SCH (10:17)
[2023-01-04] MEDS: NYSTATIN 100,000 UNIT/GM POWD 15 GM TOPICAL SCH (10:18)
[2023-01-04 11:00] LABS: Basophils # (A) 0.03 X 10*3/uL (0.00-0.10); Basophils % (A) 0.7 %; Eosinophils # (A) 0.18 X 10*3/uL (0.04-0.35); Eosinophils % (A) 4.1 %; HCT 37.1 % (37.2-46.3); HGB 11.5 d/dL (12.0-15.0); Lymphocytes # (A) 0.99 X 10*3/uL (0.90-5.00); Lymphocytes % (A) 22.5 %; MCH 27.3 pg (27.0-32.0); MCV 88.1 FL (80.0-97.0); Mean Platelet Volume 11.1 FL (9.5-12.2); Monocytes # (A) 0.53 X 10*3/uL (0.20-1.00); NRBC Per 100 WBC 0 X 10*3/uL (0.00-0.01); Neutrophils # (A) 2.66 X 10*3/uL (1.80-7.70); Neutrophils % (A) 60.5 %; Platelet Count 264 X 10*3/uL (140-440); RBC 4.21 X 10*6/uL (4.10-5.20); RDW 14.6 % (11.5-14.5)
[2023-01-04] MEDS ORDERED: CIPROFLOXACIN HCL 500 MG TAB PO SCH (12:30)
== END 2023-01-04 16:07 | disposition home or self-care (01) | DRG 314 ==
LOC: EC 19:12 → 6NMEDSUR 22:08 → OBSVTOIN 01-04 08:21
PROVIDERS: ADMIT Family Medicine; ATTEND Family Medicine
PROC: 0J9D0ZZ Drainage of Right Upper Arm Subcutaneous Tissue and Fascia, Open Approach (ICD-10-PCS; 2023-01-02)
PROC: 02HV33Z Insertion of Infusion Device into Superior Vena Cava, Percutaneous Approach (ICD-10-PCS; 2023-01-02)
PROC: B5181ZA Fluoroscopy of Superior Vena Cava using Low Osmolar Contrast, Guidance (ICD-10-PCS; 2023-01-02)
PROC: B548ZZA Ultrasonography of Superior Vena Cava, Guidance (ICD-10-PCS; 2023-01-02)
PROC: 0JPV0WZ Removal of Totally Implantable Vascular Access Device from Upper Extremity Subcutaneous Tissue and Fascia, Open Approach (ICD-10-PCS; principal; 2023-01-02 09:00)
DX: T82.7XXA Infection and inflammatory reaction due to other cardiac and vascular devices, implants and grafts, initial encounter (principal); A41.53 Sepsis due to Serratia; D68.61 Antiphospholipid syndrome; L02.414 Cutaneous abscess of left upper limb; B96.89 Other specified bacterial agents as the cause of diseases classified elsewhere; E11.22 Type 2 diabetes mellitus with diabetic chronic kidney disease; N26.1 Atrophy of kidney (terminal); Z20.822 Contact with and (suspected) exposure to COVID-19; N18.30 Chronic kidney disease, stage 3 unspecified; G40.909 Epilepsy, unspecified, not intractable, without status epilepticus; G25.81 Restless legs syndrome; I25.10 Atherosclerotic heart disease of native coronary artery without angina pectoris; Y84.8 Other medical procedures as the cause of abnormal reaction of the patient, or of later complication, without mention of misadventure at the time of the procedure; Z88.0 Allergy status to penicillin; Z88.1 Allergy status to other antibiotic agents; K44.9 Diaphragmatic hernia without obstruction or gangrene; Z90.49 Acquired absence of other specified parts of digestive tract; Z79.01 Long term (current) use of anticoagulants; Z79.52 Long term (current) use of systemic steroids; Z79.899 Other long term (current) drug therapy; Z82.49 Family history of ischemic heart disease and other diseases of the circulatory system; Z86.711 Personal history of pulmonary embolism; Z90.710 Acquired absence of both cervix and uterus; Z95.2 Presence of prosthetic heart valve; Z95.828 Presence of other vascular implants and grafts; Z91.040 Latex allergy status; Z88.7 Allergy status to serum and vaccine; Z88.5 Allergy status to narcotic agent
CPT/HCPCS: 36415; 36590; 71046; 74176; 80048; 80053; 81003; 83605; 85025; 86140; 86308; 87040; 87070; 87075; 87077; 87186; 87205; 87324; 87636; 87651; 94640; 96361; 96365; 96375; 96376; 99285

== ENCOUNTER 2023-01-06 15:32 | Emergency (ER) | payer BC, MEDICARE ==
[2023-01-06 15:46] VITALS: TEMP 97.6
[2023-01-06] MEDS ORDERED: SODIUM CHLORIDE 0.9% 500 ML 500 ML IV STA (16:11)
--- NOTE | 2023-01-06 16:16 | ED ---
General Adult HPI - General Chief complaint: Nausea/Vomiting/Diarrhea Stated complaint: Abd Pain, Everything Time Seen by Provider: 01/06/23 15:50 Source: patient, EMS, RN notes reviewed, old records reviewed Mode of arrival: EMS Limitations: no limitations - History of Present Illness Initial comments: This is a 57-year-old female who presents emergency Department complaining of abdominal pain. Patient states she was just in the hospital a few days ago and discharged 2 days ago. Patient was here because of infected port which is used to draw blood. Patient denies any vomiting states she's had 2 days of diarrhea. Patient states she did go home on antibiotics but does not know what they are. Patient denies any chest pain shortness of breath or difficulty breathing. Patient denies headache patient denies numbness or weakness or lightheadedness - Related Data Home Medications Medication Instructions Recorded Confirmed Atorvastatin [Lipitor] 40 mg PO HS 09/24/21 01/06/23 Cholestyramine (with Sugar) 4 gm PO DAILY PRN 09/24/21 01/06/23 [Cholestyramine Packet] Gabapentin 300 mg PO QID 09/24/21 01/06/23 Sertraline [Zoloft] 200 mg PO DAILY 09/24/21 01/06/23 Ubrogepant [Ubrelvy] 100 mg PO BID PRN 09/24/21 01/06/23 rOPINIRole HCL [Requip] 2 mg PO HS 09/24/21 01/06/23 Esomeprazole Magnesium [NexIUM] 40 mg PO DAILY 03/16/22 01/06/23 Botox 200unit Injection 1 dose INJ Q84D 04/02/22 01/06/23 Meclizine [Antivert] 12.5 mg PO Q8H PRN 04/02/22 01/06/23 Diphenhydramine 50mg/Ml Vial 50 mg IM Q6H PRN 04/18/22 01/06/23 Apixaban [Eliquis] 5 mg PO BID 05/29/22 01/06/23 Spironolactone [Aldactone] 50 mg PO TID 06/11/22 01/06/23 busPIRone HCl [Buspar] 5 mg PO BID 06/11/22 01/06/23 Bumetanide [BUMEX] 2 mg PO DAILY 06/24/22 01/06/23 Lidocaine 5% Patch [Lidoderm 5% 1 patch TRANSDERM DAILY PRN 08/26/22 01/06/23 Patch] Fludrocortisone [Florinef] 0.1 mg PO DAILY 09/20/22 01/06/23 Metoprolol Succinate (ER) [Toprol 25 mg PO DAILY PRN 10/29/22 01/06/23 XL] Midodrine [ProAmatine] 5 mg PO TID PRN 10/29/22 01/06/23 HYDROcodone/APAP 5-325MG [[place] 1 tab PO TID 11/29/22 01/06/23 5-325] Ondansetron [Zofran] 4 mg PO Q8H PRN 11/29/22 01/06/23 Nystatin 100,000 Unit/gm Powd 1 applic TOPICAL BID PRN 01/06/23 01/06/23 [Mycostatin Powder] Nystatin 100,000 Unit/ml Susp 500,000 unit PO QID PRN 01/06/23 01/06/23 [Mycostatin Oral Susp] Sucralfate [Carafate] 1 gm PO ACHS 01/06/23 01/06/23 Previous Rx's Medication Instructions Recorded Dicyclomine [Bentyl] 20 mg PO TID PRN #30 tablet 04/30/22 Zonisamide [Zonegran] 100 mg PO Q12HR 30 Days #60 cap 07/26/22 Lacosamide [Vimpat] 50 mg PO BID tab 11/05/22 Potassium Chloride ER [K-Dur 20] 20 meq PO BID tab 12/03/22 Famotidine [Pepcid] 20 mg PO BID #14 tablet 12/13/22 Ipratropium Nebulized [Atrovent 0.5 mg INHALATION RT-QID 30 Days 01/04/23 Nebulized 0.2 MG/ML] #120 ml Allergies Allergy/AdvReac Type Severity Reaction Status Date / Time Penicillins Allergy Severe Anaphylaxis Verified 01/06/23 19:59 vancomycin Allergy Severe Swelling Verified 01/06/23 19:59 in lips albuterol [From Ventolin HFA] Allergy Rapid Verified 01/06/23 19:59 Heart Rate cefepime Allergy Swelling Verified 01/06/23 19:59 clindamycin Allergy Anaphylaxis Verified 01/06/23 19:59 dexamethasone [From Decadron] Allergy Unknown Verified 01/06/23 19:59 Influenza Virus Vaccines Allergy Unknown Verified 01/06/23 19:59 latex Allergy Unknown Verified 01/06/23 19:59 morphine Allergy Unknown Verified 01/06/23 19:59 prochlorperazine Allergy Unknown Verified 01/06/23 19:59 [From Compazine] ciprofloxacin [From Cipro] AdvReac Diarrhea, Verified 01/06/23 19:59 severe abdominal pain, confusion [id number] AdvReac Confusion, Verified 01/06/23 19:59 [From Emgality Pen] increased blood pressure metoclopramide [From Reglan] AdvReac "felt like Verified 01/06/23 19:59 I needed to jump out of my skin" Review of Systems ROS Statement: Those systems with pertinent positive or pertinent negative responses have been documented in the HPI. ROS Other: All systems not noted in ROS Statement are negative. 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 for low K+ History of Any Multi-Drug Resistant Organisms: C-DIFF Date of last positivie culture/infection: 2021 MDRO Source:: Stool Past Surgical History: Back Surgery, Breast Surgery, Cardiac Valve Replacement, Section, Cholecystectomy, Heart Catheterization, Hysterectomy, Pacemaker Additional Past Surgical History / Comment(s): pacemaker d/t bradycardia/hypotension with last one place in 2013 in [place], [place], 3 lower back surgeries, bilateral breast reduction. 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 Past Anesthesia/Blood Transfusion Reactions: No Reported Reaction Type of Cardiac Device: Permanent Pacemaker, Unknown Device Placement Date:: 2012 Past Psychological History: Anxiety Smoking Status: Never smoker Past Alcohol Use History: None Reported Past Drug Use History: Marijuana - Past Family History Mother Additional Family Medical History / Comment(s): Mother at the age of 49 yrs after surgery for silicon breast implants with a leak that caused ARDS and DIC per pt Father Family Medical History: Cancer, Hyperlipidemia, Hypertension Additional Family Medical History / Comment(s): Father is a colon cancer survivor. General Exam - General Exam Comments Initial Comments: GENERAL: Patient is well-developed and well-nourished. Patient is nontoxic and well- hydrated and is in mild distress. ENT: Neck is soft and supple. No significant lymphadenopathy is noted. Oropharynx is clear. Moist mucous membranes. Neck has full range of motion without eliciting any pain. EYES: The sclera were anicteric and conjunctiva were pink and moist. Extraocular movements were intact and pupils were equal round and reactive to light. Eye lids were unremarkable. PULMONARY: Unlabored respirations. Good breath sounds bilaterally. No audible rales rhonchi or wheezing was noted. CARDIOVASCULAR: There is a regular rate and rhythm without any murmurs gallops or rubs. ABDOMEN: Mild diffuse pain SKIN: Skin is clear with no lesions or rashes and otherwise unremarkable. NEUROLOGIC: Patient is alert and oriented x3. Cranial nerves II through XII are grossly intact. Motor and sensory are also intact. Normal speech, volume and content. Symmetrical smile. MUSCULOSKELETAL: Normal extremities with adequate strength and full range of motion. No lower extremity swelling or edema. No calf tenderness. LYMPHATICS: No significant lymphadenopathy is noted PSYCHIATRIC: Normal psychiatric evaluation. Limitations: no limitations Course Vital Signs 01/06/23 01/06/23 01/06/23 15:37 17:01 19:05 Temperature 97.6 F Pulse Rate 76 89 93 Respiratory 24 20 18 Rate Blood Pressure 136/89 145/84 151/88 O2 Sat by Pulse 100 98 99 Oximetry Medical Decision Making - Medical Decision Making Was pt. sent in by a medical professional or institution (, PA, CLOTH DOUBLING MACHINE OPERATOR, urgent care, hospital, or residential...) When possible be specific @ -No Did you speak to anyone other than the patient for history (EMS, parent, family, police, friend...)? What history was obtained from this source @ -No Did you review nursing and triage notes (agree or disagree)? Why? @ -I reviewed and agree with nursing and triage notes Were old charts reviewed (outside hosp., previous admission, EMS record, old EKG, old radiological studies, urgent care reports/EKG's, residential records)? Report findings @ -I reviewed prior labs in prior charts Differential Diagnosis (chest pain, altered mental status, abdominal pain women, abdominal pain men, vaginal bleeding, weakness, fever, dyspnea, syncope, headache, dizziness, GI bleed, back pain, seizure, CVA, palpatations, mental health, musculoskeletal)? @ -Differential Abdominal Pain Women: Appendicitis, Cholecystitis, diverticulosis, ischemic bowel, pancreatitis, hepa titis, UTI, gastroenteritis, AAA, incarcerated hernia, bowel obstruction, constipation, inflammatory bowel, hepatitis, peptic ulcer disease, splenic infarction, perforated viscus, vulvitis, ovarian torsion, PID, kidney stone, placenta abruption, this is not meant to be an all-inclusive list EKG interpreted by me (3pts min.). @ -As above X-rays interpreted by me (1pt min.). @ -None done CT interpreted by me (1pt min.). @ -None done U/S interpreted by me (1pt. min.). @ -None done What testing was considered but not performed or refused? (CT, X-rays, U/S, labs)? Why? @ -None What meds were considered but not given or refused? Why? @ -None Did you discuss the management of the patient with other professionals (professionals i.e. , PA, CLOTH DOUBLING MACHINE OPERATOR, lab, RT, psych nurse, manager social responsibility, boat washer, teacher, fire information officer, field nurse case manager)? Give summary @ -No Was smoking cessation discussed for >3mins.? @ -No Was critical care preformed (if so, how long)? @ -No Were there social determinants of health that impacted care today? How? (Homelessness, low income, unemployed, alcoholism, drug addiction, transportation, low edu. Level, literacy, decrease access to med. care, [facility], rehab)? @ -No Was there de-escalation of care discussed even if they declined (Discuss DNR or withdrawal of care, Hospice)? DNR status @ -No What co-morbidities impacted this encounter? (DM, HTN, Smoking, COPD, CAD, Cancer, CVA, ARF, Chemo, Hep., AIDS, mental health diagnosis, sleep apnea, morbid obesity)? @ -None Was patient admitted / discharged? Hospital course, mention meds given and route, prescriptions, significant lab abnormalities, going to OR and other pertinent info. @ -During the patient's course she faked a seizure and I immediately did a sternal rub on her which point in time she had medially started talking to me and told me to quit doing that. Patient was actually foaming at the mouth to make it look more realistic. Patient did not have any diarrhea while in the emergency department she was in no distress and wanting something to eat. I offered admission to the patient she initially wanted to stay but after a little while she decided she would go home. Undiagnosed new problem with uncertain prognosis? @ -No Drug Therapy requiring intensive monitoring for toxicity (Heparin, Nitro, Insulin, Cardizem)? @ -No Were any procedures done? @ -No Diagnosis/symptom? @ -Diarrhea Acute, or Chronic, or Acute on Chronic? @ -Acute Uncomplicated (without systemic symptoms) or Complicated (systemic symptoms)? @ -Complicated Side effects of treatment? @ -No Exacerbation, Progression, or Severe Exacerbation? @ -No Poses a threat to life or bodily function? How? (Chest pain, USA, MD, pneumonia, PE, COPD, DKA, ARF, appy, cholecystitis, CVA, Diverticulitis, Homicidal, Suicidal, threat to staff... and all critical care pts) @ -No - Lab Data Result diagrams: 01/06/23 16:19 01/06/23 16:19 Lab Results 01/06/23 01/06/23 01/06/23 Range/Units 16:19 16:19 16:19 WBC 9.7 (3.8-10.6) k/uL RBC 4.89 (3.80-5.40) m/uL Hgb 13.5 (11.4-16.0) gm/dL Hct 41.3 (34.0-46.0) % MCV 84.4 (80.0-100.0) fL MCH 27.6 (25.0-35.0) pg MCHC 32.7 (31.0-37.0) g/dL RDW 15.8 H (11.5-15.5) % Plt Count 356 (150-450) k/uL MPV 7.8 Neutrophils % 87 % Lymphocytes % 8 % Monocytes % 4 % Eosinophils % 1 % Basophils % 0 % Neutrophils # 8.5 H (1.3-7.7) k/uL Lymphocytes # 0.7 L (1.0-4.8) k/uL Monocytes # 0.4 (0-1.0) k/uL Eosinophils # 0.1 (0-0.7) k/uL Basophils # 0.0 (0-0.2) k/uL PT 11.6 (9.0-12.0) sec INR 1.1 (<1.2) APTT 28.0 (22.0-30.0) sec Sodium 140 (137-145) mmol/L Potassium 3.5 (3.5-5.1) mmol/L Chloride 101 (98-107) mmol/L Carbon Dioxide 14 L (22-30) mmol/L Anion Gap 25 mmol/L BUN 14 (7-17) mg/dL Creatinine 1.08 H (0.52-1.04) mg/dL Est GFR (CKD-EPI)AfAm 66 (>60 ml/min/1.73 sqM) Est GFR (CKD-EPI)NonAf 57 (>60 ml/min/1.73 sqM) Glucose 102 H (74-99) mg/dL Lactic Ac Sepsis Rflx Plasma Lactic Acid Raffi (0.7-2.0) mmol/L Calcium 10.5 H (8.4-10.2) mg/dL Total Bilirubin 0.7 (0.2-1.3) mg/dL AST 31 (14-36) U/L ALT 25 (4-34) U/L Alkaline Phosphatase 82 (38-126) U/L Troponin I (0.000-0.034) ng/mL Total Protein 8.2 (6.3-8.2) g/dL Albumin 4.9 (3.5-5.0) g/dL Amylase 55 (30-110) U/L Lipase 124 (23-300) U/L Urine Color Urine Appearance (Clear) Urine pH (5.0-8.0) Ur Specific [place] (1.001-1.035) Urine Protein (Negative) Urine Glucose (UA) (Negative) Urine Ketones (Negative) Urine Blood (Negative) Urine Nitrite (Negative) Urine Bilirubin (Negative) Urine Urobilinogen (<2.0) mg/dL Ur Leukocyte Esterase (Negative) 01/06/23 01/06/23 01/06/23 Range/Units 16:19 16:19 17:30 WBC (3.8-10.6) k/uL RBC (3.80-5.40) m/uL Hgb (11.4-16.0) gm/dL Hct (34.0-46.0) % MCV (80.0-100.0) fL MCH (25.0-35.0) pg MCHC (31.0-37.0) g/dL RDW (11.5-15.5) % Plt Count (150-450) k/uL MPV Neutrophils % % Lymphocytes % % Monocytes % % Eosinophils % % Basophils % % Neutrophils # (1.3-7.7) k/uL Lymphocytes # (1.0-4.8) k/uL Monocytes # (0-1.0) k/uL Eosinophils # (0-0.7) k/uL Basophils # (0-0.2) k/uL PT (9.0-12.0) sec INR (<1.2) APTT (22.0-30.0) sec Sodium (137-145) mmol/L Potassium (3.5-5.1) mmol/L Chloride (98-107) mmol/L Carbon Dioxide (22-30) mmol/L Anion Gap mmol/L BUN (7-17) mg/dL Creatinine (0.52-1.04) mg/dL Est GFR (CKD-EPI)AfAm (>60 ml/min/1.73 sqM) Est GFR (CKD-EPI)NonAf (>60 ml/min/1.73 sqM) Glucose (74-99) mg/dL Lactic Ac Sepsis Rflx Y Plasma Lactic Acid Raffi 2.1 H* (0.7-2.0) mmol/L Calcium (8.4-10.2) mg/dL Total Bilirubin (0.2-1.3) mg/dL AST (14-36) U/L ALT (4-34) U/L Alkaline Phosphatase (38-126) U/L Troponin I <0.012 (0.000-0.034) ng/mL Total Protein (6.3-8.2) g/dL Albumin (3.5-5.0) g/dL Amylase (30-110) U/L Lipase (23-300) U/L Urine Color Urine Appearance (Clear) Urine pH (5.0-8.0) Ur Specific [place] (1.001-1.035) Urine Protein (Negative) Urine Glucose (UA) (Negative) Urine Ketones (Negative) Urine Blood (Negative) Urine Nitrite (Negative) Urine Bilirubin (Negative) Urine Urobilinogen (<2.0) mg/dL Ur Leukocyte Esterase (Negative) 01/06/23 01/06/23 Range/Units 19:33 19:50 WBC (3.8-10.6) k/uL RBC (3.80-5.40) m/uL Hgb (11.4-16.0) gm/dL Hct (34.0-46.0) % MCV (80.0-100.0) fL MCH (25.0-35.0) pg MCHC (31.0-37.0) g/dL RDW (11.5-15.5) % Plt Count (150-450) k/uL MPV Neutrophils % % Lymphocytes % % Monocytes % % Eosinophils % % Basophils % % Neutrophils # (1.3-7.7) k/uL Lymphocytes # (1.0-4.8) k/uL Monocytes # (0-1.0) k/uL Eosinophils # (0-0.7) k/uL Basophils # (0-0.2) k/uL PT (9.0-12.0) sec INR (<1.2) APTT (22.0-30.0) sec Sodium (137-145) mmol/L Potassium (3.5-5.1) mmol/L Chloride (98-107) mmol/L Carbon Dioxide (22-30) mmol/L Anion Gap mmol/L BUN (7-17) mg/dL Creatinine (0.52-1.04) mg/dL Est GFR (CKD-EPI)AfAm (>60 ml/min/1.73 sqM) Est GFR (CKD-EPI)NonAf (>60 ml/min/1.73 sqM) Glucose (74-99) mg/dL Lactic Ac Sepsis Rflx Plasma Lactic Acid Raffi 1.1 (0.7-2.0) mmol/L Calcium (8.4-10.2) mg/dL Total Bilirubin (0.2-1.3) mg/dL AST (14-36) U/L ALT (4-34) U/L Alkaline Phosphatase (38-126) U/L Troponin I (0.000-0.034) ng/mL Total Protein (6.3-8.2) g/dL Albumin (3.5-5.0) g/dL Amylase (30-110) U/L Lipase (23-300) U/L Urine Color Colorless Urine Appearance Clear (Clear) Urine pH 6.0 (5.0-8.0) Ur Specific [place] 1.006 (1.001-1.035) Urine Protein Negative (Negative) Urine Glucose (UA) Negative (Negative) Urine Ketones 2+ H (Negative) Urine Blood Negative (Negative) Urine Nitrite Negative (Negative) Urine Bilirubin Negative (Negative) Urine Urobilinogen <2.0 (<2.0) mg/dL Ur Leukocyte Esterase Negative (Negative) Disposition Clinical Impression: Diarrhea Disposition: HOME SELF-CARE Instructions (If sedation given, give patient instructions): Acute Diarrhea (ED) Additional Instructions: Patient should follow-up with primary medical care doctor and return to the emergency department symptoms worsen Patient should take Lomotil as prescribed Is patient prescribed a controlled substance at d/c from ED?: No Referrals: Franklin Hassan MD [Primary Care Provider] - 1-2 days Time of Disposition: 20:43
[2023-01-06 17:03] LABS: Basophils % (A) 0 %; Eosinophils # (A) 0.1 k/uL (0-0.7); Eosinophils % (A) 1 %; HCT 41.3 % (34.0-46.0); HGB 13.5 gm/dL (11.4-16.0); Lymphocytes # (A) 0.7 k/uL (1.0-4.8); Lymphocytes % (A) 8 %; MCH 27.6 pg (25.0-35.0); MCHC 32.7 g/dL (31.0-37.0); MCV 84.4 fL (80.0-100.0); Mean Platelet Volume 7.8; Monocytes # (A) 0.4 k/uL (0-1.0); Monocytes % (A) 4 %; Neutrophils # (A) 8.5 k/uL (1.3-7.7); Neutrophils % (A) 87 %; Platelet Count 356 k/uL (150-450); RBC 4.89 m/uL (3.80-5.40); RDW 15.8 % (11.5-15.5); WBC 9.7 k/uL (3.8-10.6)
[2023-01-06 17:19] LABS: INR 1.1 (<1.2); Prothrombin Time 11.6 sec (9.0-12.0)
[2023-01-06 17:30] LABS: ALT 25 U/L (4-34); AST 31 U/L (14-36); African American GFR (CKD) 66 (>60 ml/min/1.73 sqM); Albumin 4.9 g/dL (3.5-5.0); Alkaline Phosphatase 82 U/L (38-126); Amylase 55 U/L (30-110); Anion Gap 25 mmol/L; Blood Urea Nitrogen 14 mg/dL (7-17); Calcium 10.5 mg/dL (8.4-10.2); Carbon Dioxide 14 mmol/L (22-30); Chloride 101 mmol/L (98-107); Glucose 102 mg/dL (74-99); Lipase 124 U/L (23-300); Non-African American GFR(CKD) 57 (>60 ml/min/1.73 sqM); Potassium 3.5 mmol/L (3.5-5.1); Sodium 140 mmol/L (137-145); Total Bilirubin 0.7 mg/dL (0.2-1.3); Total Protein 8.2 g/dL (6.3-8.2)
--- NOTE | 2023-01-06 18:46 | XR ---
EXAMINATION TYPE: XR KUB DATE OF EXAM: 01/06/2023 6:31 PM CLINICAL INDICATION:Female, 57 years old with history of Abdominal pain; COMPARISON: None. TECHNIQUE: One radiographic view of the abdomen was obtained. FINDINGS: The bowel gas pattern is nonspecific without dilated loops of small or large bowel. There i s no evidence for organomegaly or pneumoperitoneum. The osseous structures are intact. No abnormal calcifications are present. Fecal material and gas are demonstrated throughout the colon and rectum. Fixation changes at L5-S1 with hardware intact. There is multilevel degeneration changes with osteoph yte formation disc space narrowing. IMPRESSION: 1. Nonspecific bowel gas pattern without radiographic evidence for acute process. 2. Intact L5-S1 fixation hardware.
[2023-01-06 19:56] VITALS: BP 151/88; PULSE 93; RESP 18
[2023-01-06 20:09] LABS: Appearance,Urine Clear (Clear); Bilirubin,Urine Negative (Negative); Blood,Urine Negative (Negative); Color,Urine Colorless; Glucose,Urine (UA) Negative (Negative); Ketones,Urine 2+ (Negative); Leukocyte Esterase,Urine Negative (Negative); Nitrite,Urine Negative (Negative); Protein,Urine Negative (Negative); Specific Gravity,Urine 1.006 (1.001-1.035); Urobilinogen,Urine <2.0 mg/dL (<2.0)
[2023-01-06] MEDS ORDERED: DIPHENOX-ATROP STARTER PACK 8 TAB BTL PO STA (20:43)
== END 2023-01-06 21:02 | disposition home or self-care (01) ==
LOC: EC 15:32
DX: R19.7 Diarrhea, unspecified (principal); F41.9 Anxiety disorder, unspecified; F12.90 Cannabis use, unspecified, uncomplicated; Z79.899 Other long term (current) drug therapy; Z88.0 Allergy status to penicillin; Z88.7 Allergy status to serum and vaccine; Z88.1 Allergy status to other antibiotic agents; Z88.8 Allergy status to other drugs, medicaments and biological substances
CPT/HCPCS: 36415; 74018; 80053; 81003; 82150; 83605; 83690; 84484; 85025; 85610; 85730; 87040; 96360; 96361; 99285

== ENCOUNTER 2023-01-13 16:11 | Emergency (ER) | payer BC, MEDICARE ==
[2023-01-13 17:25] VITALS: BP 126/84; PULSE 69; RESP 18; TEMP 98.4
--- NOTE | 2023-01-13 18:25 | ED ---
General Adult HPI - General Chief complaint: Recheck/Abnormal Lab/Rx Stated complaint: stitches and a drain that need to be removed Time Seen by Provider: 01/13/23 17:52 Source: patient, RN notes reviewed Mode of arrival: ambulatory - History of Present Illness Initial comments: 57 year old female presents to the emergency department for chief complaint of drain removal. Patient states that she was admitted recently for an abscess to her PowerPort in her left arm. A drain was placed in her left arm. He states that she was supposed to have this removed after 3 days but has not been able to get into see Dr. Vasquez. She states she called his office today and they told her that she wouldn't be able to get in for 3 weeks. - Related Data Home Medications Medication Instructions Recorded Confirmed Atorvastatin [Lipitor] 40 mg PO HS 09/24/21 01/12/23 Cholestyramine (with Sugar) 4 gm PO DAILY PRN 09/24/21 01/12/23 [Cholestyramine Packet] Gabapentin 300 mg PO QID 09/24/21 01/12/23 Sertraline [Zoloft] 200 mg PO DAILY 09/24/21 01/12/23 Ubrogepant [Ubrelvy] 100 mg PO BID PRN 09/24/21 01/12/23 rOPINIRole HCL [Requip] 2 mg PO HS 09/24/21 01/12/23 Esomeprazole Magnesium [NexIUM] 40 mg PO DAILY 03/16/22 01/12/23 Botox 200unit Injection 1 dose INJ Q84D 04/02/22 01/12/23 Diphenhydramine 50mg/Ml Vial 50 mg IM Q6H PRN 04/18/22 01/12/23 Apixaban [Eliquis] 5 mg PO BID 05/29/22 01/12/23 Spironolactone [Aldactone] 50 mg PO TID 06/11/22 01/12/23 busPIRone HCl [Buspar] 5 mg PO BID 06/11/22 01/12/23 Bumetanide [BUMEX] 2 mg PO DAILY 06/24/22 01/12/23 Lidocaine 5% Patch [Lidoderm 5% 1 patch TRANSDERM DAILY PRN 08/26/22 01/12/23 Patch] Fludrocortisone [Florinef] 0.1 mg PO DAILY 09/20/22 01/12/23 Metoprolol Succinate (ER) [Toprol 25 mg PO DAILY 10/29/22 01/12/23 XL] Midodrine [ProAmatine] 5 mg PO TID PRN 10/29/22 01/12/23 HYDROcodone/APAP 5-325MG [[place] 1 tab PO TID 11/29/22 01/12/23 5-325] Ondansetron [Zofran] 4 mg PO Q8H PRN 11/29/22 01/12/23 Nystatin 100,000 Unit/gm Powd 1 applic TOPICAL BID PRN 01/06/23 01/12/23 [Mycostatin Powder] Nystatin 100,000 Unit/ml Susp 500,000 unit PO QID PRN 01/06/23 01/12/23 [Mycostatin Oral Susp] Sucralfate [Carafate] 1 gm PO ACHS 01/06/23 01/12/23 Ipratropium Nebulized [Atrovent 0.5 mg INHALATION QID PRN 01/12/23 01/12/23 Nebulized 0.2 MG/ML] Potassium Chloride ER [K-Dur 20] 20 meq PO DAILY 01/12/23 01/12/23 Previous Rx's Medication Instructions Recorded Dicyclomine [Bentyl] 20 mg PO TID PRN #30 tablet 04/30/22 Zonisamide [Zonegran] 100 mg PO Q12HR 30 Days #60 cap 07/26/22 Lacosamide [Vimpat] 50 mg PO BID tab 11/05/22 Allergies Allergy/AdvReac Type Severity Reaction Status Date / Time Penicillins Allergy Severe Anaphylaxis Verified 01/13/23 17:26 vancomycin Allergy Severe Swelling Verified 01/13/23 17:26 in lips albuterol [From Ventolin HFA] Allergy Rapid Verified 01/13/23 17:26 Heart Rate cefepime Allergy Swelling Verified 01/13/23 17:26 clindamycin Allergy Anaphylaxis Verified 01/13/23 17:26 dexamethasone [From Decadron] Allergy Unknown Verified 01/13/23 17:26 Influenza Virus Vaccines Allergy Unknown Verified 01/13/23 17:26 latex Allergy Unknown Verified 01/13/23 17:26 morphine Allergy Unknown Verified 01/13/23 17:26 prochlorperazine Allergy Unknown Verified 01/13/23 17:26 [From Compazine] galcanezumab-gnlm AdvReac Confusion, Verified 01/12/23 13:52 [From Emgality Pen] increased blood pressure metoclopramide [From Reglan] AdvReac "felt like Verified 01/12/23 13:52 I needed to jump out of my skin" Review of Systems ROS Statement: Those systems with pertinent positive or pertinent negative responses have been documented in the HPI. ROS Other: All systems not noted in ROS Statement are negative. 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 for low K+. lupus History of Any Multi-Drug Resistant Organisms: C-DIFF Date of last positivie culture/infection: 2021 MDRO Source:: Stool Past Surgical History: Back Surgery, Breast Surgery, Cardiac Valve Replacement, Section, Cholecystectomy, Heart Catheterization, Hysterectomy, Pacemaker Additional Past Surgical History / Comment(s): pacemaker d/t bradycardia/hypotension with last one place in 2013 in [place], [place], 3 lower back surgeries, bilateral breast reduction. 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 General Exam Limitations: no limitations General appearance: alert, in no apparent distress Head exam: Present: atraumatic, normocephalic, normal inspection Eye exam: Present: normal appearance, PERRL, EOMI. Absent: scleral icterus, conjunctival injection, periorbital swelling ENT exam: Present: normal exam, mucous membranes moist Neck exam: Present: normal inspection. Absent: tenderness, meningismus, lymphadenopathy Respiratory exam: Present: normal lung sounds bilaterally. Absent: respiratory distress, wheezes, rales, rhonchi, stridor Cardiovascular Exam: Present: regular rate, normal rhythm, normal heart sounds. Absent: systolic murmur, diastolic murmur, rubs, gallop, clicks Extremities exam: Present: normal capillary refill, other (Radial pulses 2+, drain present in left arm with 3 sutures present) Back exam: Present: normal inspection Neurological exam: Present: alert, oriented X3 Psychiatric exam: Present: normal affect, normal mood Skin exam: Present: warm, dry, normal color, other (Drain present in left arm). Absent: rash Course Vital Signs 01/13/23 17:20 Temperature 98.4 F Pulse Rate 69 Respiratory 18 Rate Blood Pressure 126/84 O2 Sat by Pulse 97 Oximetry Medical Decision Making - Medical Decision Making Was pt. sent in by a medical professional or institution (Dr. PA, WALL INSULATION SPRAYER, urgent care, hospital, or shelter...) When possible be specific @ -No Did you speak to anyone other than the patient for history (EMS, parent, family, police, friend...)? What history was obtained from this source @ -No Did you review nursing and triage notes (agree or disagree)? Why? @ -I reviewed and agree with nursing and triage notes Were old charts reviewed (outside hosp., previous admission, EMS record, old EKG, old radiological studies, urgent care reports/EKG's, shelter records)? Report findings @ -No old charts were reviewed Differential Diagnosis (chest pain, altered mental status, abdominal pain women, abdominal pain men, vaginal bleeding, weakness, fever, dyspnea, syncope, headache, dizziness, GI bleed, back pain, seizure, CVA, palpatations, mental health, musculoskeletal)? @ -not applicable EKG interpreted by me (3pts min.). @ -none X-rays interpreted by me (1pt min.). @ -None done CT interpreted by me (1pt min.). @ -None done U/S interpreted by me (1pt. min.). @ -None done What testing was considered but not performed or refused? (CT, X-rays, U/S, labs)? Why? @ -None What meds were considered but not given or refused? Why? @ -None Did you discuss the management of the patient with other professionals (professionals i.e. , PA, WALL INSULATION SPRAYER, lab, RT, psych nurse, dialysis social worker, sustainability analyst, teacher, coastal/harbor defense officer, showcase maker)? Give summary @ -Case discussed with Dr. Vasquez who is agreeable with taking the drain out Was smoking cessation discussed for >3mins.? @ -No Was critical care preformed (if so, how long)? @ -No Were there social determinants of health that impacted care today? How? (Homelessness, low income, unemployed, alcoholism, drug addiction, transportation, low edu. Level, literacy, decrease access to med. care, half-way, r ehab)? @ -No Was there de-escalation of care discussed even if they declined (Discuss DNR or withdrawal of care, Hospice)? DNR status @ -No What co-morbidities impacted this encounter? (DM, HTN, Smoking, COPD, CAD, Cancer, CVA, ARF, Chemo, Hep., AIDS, mental health diagnosis, sleep apnea, morbid obesity)? @ -None Was patient admitted / discharged? Hospital course, mention meds given and route, prescriptions, significant lab abnormalities, going to OR and other pertinent info. @ -Discharged. Patient presented emergency department chief complaint of draining and left arm that needs to be removed. She states that she called Dr. Vasquez's office was unable to get an appointment for 3 weeks. I spoke to Dr. Vasquez who is agreeable with me taking out the drain. 3 sutures removed and the drain was pulled out. Patient will follow up with him in the office. She is currently on Flagyl and will continue that medication as prescribed. Patient stable at time of discharge. Case discussed with my attending, Dr. Brito. ] Undiagnosed new problem with uncertain prognosis? @ -No Drug Therapy requiring intensive monitoring for toxicity (Heparin, Nitro, Insulin, Cardizem)? @ -No Were any procedures done? @ -No Diagnosis/symptom? @ -drain removal Acute, or Chronic, or Acute on Chronic? @ -acute Uncomplicated (without systemic symptoms) or Complicated (systemic symptoms)? @ -uncomplicated Side effects of treatment? @ -No Exacerbation, Progression, or Severe Exacerbation? @ -No Poses a threat to life or bodily function? How? (Chest pain, [place], [place], pneumonia, PE, COPD, DKA, ARF, appy, cholecystitis, CVA, Diverticulitis, Homicidal, Suicidal, threat to staff... and all critical care pts) @ -No Disposition Clinical Impression: Change or removal of drains Disposition: HOME SELF-CARE Condition: Stable Additional Instructions: Follow up with Dr. Vasquez and Dr. Hassan. Return to the emergency department for new or worsening symptoms. Is patient prescribed a controlled substance at d/c from ED?: No Referrals: Franklin Hassan MD [Primary Care Provider] - 1-2 days Time of Disposition: 18:42
== END 2023-01-13 20:05 | disposition home or self-care (01) ==
LOC: EC 16:11
DX: Z48.03 Encounter for change or removal of drains (principal); N18.30 Chronic kidney disease, stage 3 unspecified; G40.909 Epilepsy, unspecified, not intractable, without status epilepticus; F41.9 Anxiety disorder, unspecified; Z79.01 Long term (current) use of anticoagulants; Z79.899 Other long term (current) drug therapy; Z86.711 Personal history of pulmonary embolism; Z95.0 Presence of cardiac pacemaker; Z88.0 Allergy status to penicillin; Z88.1 Allergy status to other antibiotic agents; Z88.7 Allergy status to serum and vaccine; Z88.5 Allergy status to narcotic agent; Z88.8 Allergy status to other drugs, medicaments and biological substances; Z91.040 Latex allergy status
CPT/HCPCS: 99283

== ENCOUNTER → 2023-01-14 | Day surgery (SDC) | payer BC, MEDICARE ==
[2023-01-12 14:02] VITALS: BMI 28.1
[~2023-01-14] MED LIST: LACTATED RINGERS 1,000 ML IV SCH; LIDOCAINE 1% (10MG/ML) FOR IV START INTRADERMA PRN; ONDANSETRON 4 MG/2 ML VIAL IVP ONE; ONDANSETRON 4 MG/2 ML VIAL ONE; PROPOFOL 10 MG/ML 20 ML VIAL IV ONE; fentaNYL (PF) 50 MCG/ML 2 ML AMP IVP ONE; fentaNYL (PF) 50 MCG/ML 2 ML AMP ONE
[2023-01-14 15:33] VITALS: TEMP 97.8
--- NOTE | 2023-01-14 15:49 | P.PCN ---
Date of Procedure: 01/14/23 Procedure(s) Performed: BRIEF HISTORY: Patient is a 57-year-old pleasant white female scheduled for an elective colonoscopy as a part of screening for colon cancer and family history of colon cancer. Her dad and grandmother both were diagnosed with colon cancer in his 60s. PROCEDURE PERFORMED: Colonoscopy. PREOPERATIVE DIAGNOSIS: Screening for colon cancer/family history of colon cancer. IV sedation per Anesthesia. PROCEDURE: After informed consent was obtained, the patient, was brought into the endoscopy unit. IV sedation was administered by Anesthesia under continuous monitoring. Digital rectal examination was normal. Initially the Olympus CF-160 flexible video colonoscope was then inserted in the rectum, gradually advanced into the cecum without any difficulty. Careful examination was performed as the scope was gradually being withdrawn. Ileocecal valve and the appendiceal orifice were visualized and appeared normal. Prep was excellent. Mucosa of the cecum, ascending colon, transverse colon, descending colon, sigmoid colon, and rectum appeared normal. Scattered sigmoid diverticulosis Retroflexion was performed in the rectum and no lesions were seen. The patient tolerated the procedure well. IMPRESSION: ' Normal-appearing colon from rectum to cecum with no evidence of colorectal neoplasia . Scattered sigmoid diverticula RECOMMENDATIONS: Findings of this examination were discussed with the patient as well as her family. She was advised to have a repeat screening colonoscopy in 5 years because of the family history of colon cancer..
[2023-01-14 15:56] VITALS: RESP 14
[2023-01-14 16:41] VITALS: BP 129/73; PULSE 79
== END ==
LOC: ORWHC2ENDO 12:54
PROVIDERS: ATTEND Internal Medicine Gastroenterology
DX: Z12.11 Encounter for screening for malignant neoplasm of colon (principal); K57.30 Diverticulosis of large intestine without perforation or abscess without bleeding; E78.5 Hyperlipidemia, unspecified; N18.30 Chronic kidney disease, stage 3 unspecified; G43.909 Migraine, unspecified, not intractable, without status migrainosus; M32.9 Systemic lupus erythematosus, unspecified; G40.909 Epilepsy, unspecified, not intractable, without status epilepticus; Z80.0 Family history of malignant neoplasm of digestive organs; Z79.01 Long term (current) use of anticoagulants; Z79.899 Other long term (current) drug therapy; Z95.0 Presence of cardiac pacemaker; Z95.2 Presence of prosthetic heart valve
CPT/HCPCS: 45378; J2405; J3010; J2704

== ENCOUNTER 2023-01-27 19:28 | Emergency (ER) | payer BC, MEDICARE ==
[2023-01-27 19:43] VITALS: RESP 18; TEMP 97.9
[2023-01-27] MEDS ORDERED: SODIUM CHLORIDE 0.9% 1,000 ML IV STA (19:58)
[2023-01-27] MEDS ORDERED: ONDANSETRON 4 MG/2 ML VIAL IVP STA (19:58)
[2023-01-27] MEDS ORDERED: HYDROmorphone 1 MG/ML 1 ML SYRINGE IVP STA (20:00)
--- NOTE | 2023-01-27 20:01 | ED ---
Abdominal Pain HPI - General Chief Complaint: Abdominal Pain Stated Complaint: vomiting Time Seen by Provider: 01/27/23 19:43 Source: family Mode of arrival: wheelchair Limitations: no limitations - History of Present Illness Initial Comments: 57-year-old female presenting with chief complaint of nausea and vomiting. Patient states that symptoms started today. She admits to diarrhea. She admits to cramping abdominal pain located in the center of the abdomen. No fevers. No dysuria or hematuria. No hematemesis, hematochezia, melena. No chest pain or difficulty breathing. - Related Data Home Medications Medication Instructions Recorded Confirmed Atorvastatin [Lipitor] 40 mg PO HS 09/24/21 01/12/23 Cholestyramine (with Sugar) 4 gm PO DAILY PRN 09/24/21 01/12/23 [Cholestyramine Packet] Gabapentin 300 mg PO QID 09/24/21 01/12/23 Sertraline [Zoloft] 200 mg PO DAILY 09/24/21 01/12/23 Ubrogepant [Ubrelvy] 100 mg PO BID PRN 09/24/21 01/12/23 rOPINIRole HCL [Requip] 2 mg PO HS 09/24/21 01/12/23 Esomeprazole Magnesium [NexIUM] 40 mg PO DAILY 03/16/22 01/12/23 Botox 200unit Injection 1 dose INJ Q84D 04/02/22 01/12/23 Diphenhydramine 50mg/Ml Vial 50 mg IM Q6H PRN 04/18/22 01/12/23 Apixaban [Eliquis] 5 mg PO BID 05/29/22 01/14/23 Spironolactone [Aldactone] 50 mg PO TID 06/11/22 01/12/23 busPIRone HCl [Buspar] 5 mg PO BID 06/11/22 01/12/23 Bumetanide [BUMEX] 2 mg PO DAILY 06/24/22 01/12/23 Lidocaine 5% Patch [Lidoderm 5% 1 patch TRANSDERM DAILY PRN 08/26/22 01/12/23 Patch] Fludrocortisone [Florinef] 0.1 mg PO DAILY 09/20/22 01/12/23 Metoprolol Succinate (ER) [Toprol 25 mg PO DAILY 10/29/22 01/12/23 XL] Midodrine [ProAmatine] 5 mg PO TID PRN 10/29/22 01/12/23 HYDROcodone/APAP 5-325MG [[place] 1 tab PO TID 11/29/22 01/12/23 5-325] Ondansetron [Zofran] 4 mg PO Q8H PRN 11/29/22 01/12/23 Nystatin 100,000 Unit/gm Powd 1 applic TOPICAL BID PRN 01/06/23 01/12/23 [Mycostatin Powder] Nystatin 100,000 Unit/ml Susp 500,000 unit PO QID PRN 01/06/23 01/12/23 [Mycostatin Oral Susp] Sucralfate [Carafate] 1 gm PO ACHS 01/06/23 01/12/23 Ipratropium Nebulized [Atrovent 0.5 mg INHALATION QID PRN 01/12/23 01/12/23 Nebulized 0.2 MG/ML] Potassium Chloride ER [K-Dur 20] 20 meq PO DAILY 01/12/23 01/12/23 Previous Rx's Medication Instructions Recorded Dicyclomine [Bentyl] 20 mg PO TID PRN #30 tablet 04/30/22 Zonisamide [Zonegran] 100 mg PO Q12HR 30 Days #60 cap 07/26/22 Lacosamide [Vimpat] 50 mg PO BID tab 11/05/22 Allergies Allergy/AdvReac Type Severity Reaction Status Date / Time Penicillins Allergy Severe Anaphylaxis Verified 01/27/23 19:36 vancomycin Allergy Severe Swelling Verified 01/27/23 19:36 in lips albuterol [From Ventolin HFA] Allergy Rapid Verified 01/27/23 19:36 Heart Rate cefepime Allergy Swelling Verified 01/27/23 19:36 clindamycin Allergy Anaphylaxis Verified 01/27/23 19:36 dexamethasone [From Decadron] Allergy Unknown Verified 01/27/23 19:36 Influenza Virus Vaccines Allergy Unknown Verified 01/27/23 19:36 latex Allergy Unknown Verified 01/27/23 19:36 morphine Allergy Unknown Verified 01/27/23 19:36 prochlorperazine Allergy Unknown Verified 01/27/23 19:36 [From Compazine] galcanezumab-gnlm AdvReac Confusion, Verified 01/27/23 19:36 [From Emgality Pen] increased blood pressure metoclopramide [From Reglan] AdvReac "felt like Verified 01/27/23 19:36 I needed to jump out of my skin" Review of Systems ROS Statement: Those systems with pertinent positive or pertinent negative responses have been documented in the HPI. ROS Other: All systems not noted in ROS Statement are negative. 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 for low K+. lupus History of Any Multi-Drug Resistant Organisms: C-DIFF Date of last positivie culture/infection: 2021 MDRO Source:: Stool Past Surgical History: Back Surgery, Breast Surgery, Cardiac Valve Replacement, Section, Cholecystectomy, Heart Catheterization, Hysterectomy, Pacemaker Additional Past Surgical History / Comment(s): pacemaker d/t bradycardia/hypot ension with last one place in 2013 in [place], [place], 3 lower back surgeries, bilateral breast reduction. 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 Past Anesthesia/Blood Transfusion Reactions: No Reported Reaction Type of Cardiac Device: Permanent Pacemaker, Unknown Device Placement Date:: 2012 Past Psychological History: Anxiety Smoking Status: Never smoker Past Alcohol Use History: None Reported Past Drug Use History: None Reported - Past Family History Mother Additional Family Medical History / Comment(s): Mother at the age of 49 yrs after surgery for silicon breast implants with a leak that caused ARDS and DIC per pt Father Family Medical History: Cancer, Hyperlipidemia, Hypertension Additional Family Medical History / Comment(s): Father is a colon cancer survivor. General Exam Limitations: no limitations General appearance: alert, in distress (Complaining of pain) Head exam: Present: atraumatic, normocephalic, normal inspection Eye exam: Present: normal appearance, EOMI Neck exam: Present: normal inspection, full ROM Respiratory exam: Present: normal lung sounds bilaterally. Absent: respiratory distress, wheezes, rales, rhonchi, stridor Cardiovascular Exam: Present: regular rate, normal rhythm, normal heart sounds. Absent: systolic murmur, diastolic murmur, rubs, gallop, clicks GI/Abdominal exam: Present: soft, tenderness. Absent: distended, guarding, rebound, rigid Neurological exam: Present: alert, oriented X3, CN II-XII intact Psychiatric exam: Present: normal affect, normal mood Skin exam: Present: warm, dry, intact, normal color. Absent: rash Course Vital Signs 01/27/23 01/28/23 19:33 00:56 Temperature 97.9 F 97.9 F Pulse Rate 90 71 Respiratory 18 18 Rate Blood Pressure 117/46 97/50 O2 Sat by Pulse 99 94 L Oximetry Medical Decision Making - Medical Decision Making Was pt. sent in by a medical professional or institution (, PA, ART DEALER, urgent care, hospital, or custodial...) When possible be specific @ -No Did you speak to anyone other than the patient for history (EMS, parent, family, police, friend...)? What history was obtained from this source @ -No Did you review nursing and triage notes (agree or disagree)? Why? @ -I reviewed and agree with nursing and triage notes Were old charts reviewed (outside hosp., previous admission, EMS record, old EKG, old radiological studies, urgent care reports/EKG's, custodial records)? Report findings @ -No old charts were reviewed Differential Diagnosis (chest pain, altered mental status, abdominal pain women, abdominal pain men, vaginal bleeding, weakness, fever, dyspnea, syncope, headache, dizziness, GI bleed, back pain, seizure, CVA, palpatations, mental health, musculoskeletal)? @ -MDM Differential Abdominal Pain Women: Appendicitis, Cholecystitis, diverticulosis, ischemic bowel, pancreatitis, hepatitis, UTI, gastroenteritis, AAA, incarcerated hernia, bowel obstruction, constipation, inflammatory bowel, hepatitis, peptic ulcer disease, splenic infar ction, perforated viscus, vulvitis, ovarian torsion, PID, kidney stone, placenta abruption... This is not meant to be an all-inclusive list EKG interpreted by me (3pts min.). @ -As above X-rays interpreted by me (1pt min.). @ -None done CT interpreted by me (1pt min.). @ -None done U/S interpreted by me (1pt. min.). @ -None done What testing was considered but not performed or refused? (CT, X-rays, U/S, labs)? Why? @ -None What meds were considered but not given or refused? Why? @ -None Did you discuss the management of the patient with other professionals (professionals i.e. Dr., PA, ART DEALER, lab, RT, psych nurse, social worker masters, expanded function dental assistant, teacher, disabilities services officer, immigration case worker)? Give summary @ -No Was smoking cessation discussed for >3mins.? @ -No Was critical care preformed (if so, how long)? @ -No Were there social determinants of health that impacted care today? How? (Homelessness, low income, unemployed, alcoholism, drug addiction, transportation, low edu. Level, literacy, decrease access to med. care, alf, rehab)? @ -No Was there de-escalation of care discussed even if they declined (Discuss DNR or withdrawal of care, Hospice)? DNR status @ -No What co-morbidities impacted this encounter? (DM, HTN, Smoking, COPD, CAD, Cancer, CVA, ARF, Chemo, Hep., AIDS, mental health diagnosis, sleep apnea, morbid obesity)? @ -None Was patient admitted / discharged? Hospital course, mention meds given and route, prescriptions, significant lab abnormalities, going to OR and other pertinent info. @ -57-year-old female presenting with chief complaint of nausea, vomiting, diarrhea, diffuse abdominal pain. Physical examination is conducted. WBC 11.7, likely reactive. BUN and creatinine are consistent with baseline. Urine shows no infectious process. She is negative for Covid, flu, RSV. She is given pain and nausea medication, on reassessment she appears improved. Follow-up with PCP. Report back to ER with any new or worsening symptoms. Discussed return parameters and answered all questions. Patient conveyed verbal understanding and agreed to the plan. I discussed this case in detail with my attending Dr. Russell Undiagnosed new problem with uncertain prognosis? @ -No Drug Therapy requiring intensive monitoring for toxicity (Heparin, Nitro, Insulin, Cardizem)? @ -No Were any procedures done? @ -No Diagnosis/symptom? @ -Nausea, vomiting, diarrhea Acute, or Chronic, or Acute on Chronic? @ -Acute Uncomplicated (without systemic symptoms) or Complicated (systemic symptoms)? @ -Uncomplicated Side effects of treatment? @ -No Exacerbation, Progression, or Severe Exacerbation? @ -No Poses a threat to life or bodily function? How? (Chest pain, [place], [place], pneumonia, PE, COPD, DKA, ARF, appy, cholecystitis, CVA, Diverticulitis, Homicidal, Suic idal, threat to staff... and all critical care pts) @ -No - Lab Data Result diagrams: 01/27/23 20:29 01/27/23 20:29 Lab Results 01/27/23 01/27/23 01/27/23 Range/Units 20:29 20: 20:29 WBC 11.7 H (3.8-10.6) k/uL RBC 4.76 (3.80-5.40) m/uL Hgb 12.7 (11.4-16.0) gm/dL Hct 39.5 (34.0-46.0) % MCV 83.1 (80.0-100.0) fL MCH 26.6 (25.0-35.0) pg MCHC 32.1 (31.0-37.0) g/dL RDW 15.5 (11.5-15.5) % Plt Count 301 (150-450) k/uL MPV 8.9 Neutrophils % 84 % Lymphocytes % 9 % Monocytes % 5 % Eosinophils % 2 % Basophils % 0 % Neutrophils # 9.7 H (1.3-7.7) k/uL Lymphocytes # 1.0 (1.0-4.8) k/uL Monocytes # 0.5 (0-1.0) k/uL Eosinophils # 0.2 (0-0.7) k/uL Basophils # 0.0 (0-0.2) k/uL Sodium 138 (137-145) mmol/L Potassium 3.8 (3.5-5.1) mmol/L Chloride 99 (98-107) mmol/L Carbon Dioxide 29 (22-30) mmol/L Anion Gap 10 mmol/L BUN 35 H (7-17) mg/dL Creatinine 1.28 H (0.52-1.04) mg/dL Est GFR (CKD-EPI)AfAm 54 (>60 ml/min/1.73 sqM) Est GFR (CKD-EPI)NonAf 46 (>60 ml/min/1.73 sqM) Glucose 103 H (74-99) mg/dL Plasma Lactic Acid Raffi (0.7-2.0) mmol/L Calcium 9.1 (8.4-10.2) mg/dL Total Bilirubin 0.4 (0.2-1.3) mg/dL AST 38 H (14-36) U/L ALT 31 (4-34) U/L Alkaline Phosphatase 86 (38-126) U/L Total Protein 7.7 (6.3-8.2) g/dL Albumin 4.6 (3.5-5.0) g/dL Amylase 120 H (30-110) U/L Lipase 216 (23-300) U/L Urine Color Yellow Urine Appearance Clear (Clear) Urine pH 7.5 (5.0-8.0) Ur Specific [place] 1.019 (1.001-1.035) Urine Protein Trace H (Negative) Urine Glucose (UA) Negative (Negative) Urine Ketones Negative (Negative) Urine Blood Negative (Negative) Urine Nitrite Negative (Negative) Urine Bilirubin Negative (Negative) Urine Urobilinogen <2.0 (<2.0) mg/dL Ur Leukocyte Esterase Negative (Negative) Influenza Type A (PCR) (Not Detectd) Influenza Type B (PCR) (Not Detectd) RSV (PCR) (Not Detectd) SARS-CoV-2 (PCR) (Not Detectd) 01/27/23 01/27/23 Range/Units 20:29 23:16 WBC (3.8-10.6) k/uL RBC (3.80-5.40) m/uL Hgb (11.4-16.0) gm/dL Hct (34.0-46.0) % MCV (80.0-100.0) fL MCH (25.0-35.0) pg MCHC (31.0-37.0) g/dL RDW (11.5-15.5) % Plt Count (150-450) k/uL MPV Neutrophils % % Lymphocytes % % Monocytes % % Eosinophils % % Basophils % % Neutrophils # (1.3-7.7) k/uL Lymphocytes # (1.0-4.8) k/uL Monocytes # (0-1.0) k/uL Eosinophils # (0-0.7) k/uL Basophils # (0-0.2) k/uL Sodium (137-145) mmol/L Potassium (3.5-5.1) mmol/L Chloride (98-107) mmol/L Carbon Dioxide (22-30) mmol/L Anion Gap mmol/L BUN (7-17) mg/dL Creatinine (0.52-1.04) mg/dL Est GFR (CKD-EPI)AfAm (>60 ml/min/1.73 sqM) Est GFR (CKD-EPI)NonAf (>60 ml/min/1.73 sqM) Glucose (74-99) mg/dL Plasma Lactic Acid Raffi 1.1 (0.7-2.0) mmol/L Calcium (8.4-10.2) mg/dL Total Bilirubin (0.2-1.3) mg/dL AST (14-36) U/L ALT (4-34) U/L Alkaline Phosphatase (38-126) U/L Total Protein (6.3-8.2) g/dL Albumin (3.5-5.0) g/dL Amylase (30-110) U/L Lipase (23-300) U/L Urine Color Urine Appearance (Clear) Urine pH (5.0-8.0) Ur Specific [place] (1.001-1.035) Urine Protein (Negative) Urine Glucose (UA) (Negative) Urine Ketones (Negative) Urine Blood (Negative) Urine Nitrite (Negative) Urine Bilirubin (Negative) Urine Urobilinogen (<2.0) mg/dL Ur Leukocyte Esterase (Negative) Influenza Type A (PCR) Not Detected (Not Detectd) Influenza Type B (PCR) Not Detected (Not Detectd) RSV (PCR) Not Detected (Not Detectd) SARS-CoV-2 (PCR) Not Detected (Not Detectd) Disposition Clinical Impression: Nausea vomiting and diarrhea Disposition: HOME SELF-CARE Condition: Good Instructions (If sedation given, give patient instructions): Acute Nausea and Vomiting (ED), Acute Diarrhea (ED) Additional Instructions: Follow-up with PCP. Report back to ER with worsening symptoms. Is patient prescribed a controlled substance at d/c from ED?: No Referrals: Franklin Hassan MD [Primary Care Provider] - 1-2 days Time of Disposition: 00:29
[2023-01-27 21:00] LABS: Basophils % (A) 0 %; Eosinophils # (A) 0.2 k/uL (0-0.7); Eosinophils % (A) 2 %; HCT 39.5 % (34.0-46.0); HGB 12.7 gm/dL (11.4-16.0); Lymphocytes % (A) 9 %; MCH 26.6 pg (25.0-35.0); MCHC 32.1 g/dL (31.0-37.0); MCV 83.1 fL (80.0-100.0); Mean Platelet Volume 8.9; Monocytes # (A) 0.5 k/uL (0-1.0); Monocytes % (A) 5 %; Neutrophils # (A) 9.7 k/uL (1.3-7.7); Neutrophils % (A) 84 %; Platelet Count 301 k/uL (150-450); RBC 4.76 m/uL (3.80-5.40); RDW 15.5 % (11.5-15.5); WBC 11.7 k/uL (3.8-10.6)
[2023-01-27 21:08] LABS: ALT 31 U/L (4-34); AST 38 U/L (14-36); African American GFR (CKD) 54 (>60 ml/min/1.73 sqM); Albumin 4.6 g/dL (3.5-5.0); Alkaline Phosphatase 86 U/L (38-126); Amylase 120 U/L (30-110); Anion Gap 10 mmol/L; Blood Urea Nitrogen 35 mg/dL (7-17); Calcium 9.1 mg/dL (8.4-10.2); Carbon Dioxide 29 mmol/L (22-30); Chloride 99 mmol/L (98-107); Glucose 103 mg/dL (74-99); Lipase 216 U/L (23-300); Non-African American GFR(CKD) 46 (>60 ml/min/1.73 sqM); Potassium 3.8 mmol/L (3.5-5.1); Sodium 138 mmol/L (137-145); Total Bilirubin 0.4 mg/dL (0.2-1.3); Total Protein 7.7 g/dL (6.3-8.2)
[2023-01-27 22:34] LABS: Appearance,Urine Clear (Clear); Bilirubin,Urine Negative (Negative); Blood,Urine Negative (Negative); Color,Urine Yellow; Glucose,Urine (UA) Negative (Negative); Ketones,Urine Negative (Negative); Leukocyte Esterase,Urine Negative (Negative); Nitrite,Urine Negative (Negative); PH, Urine 7.5 (5.0-8.0); Protein,Urine Trace (Negative); Specific Gravity,Urine 1.019 (1.001-1.035); Urobilinogen,Urine <2.0 mg/dL (<2.0)
[2023-01-27] MEDS ORDERED: DICYCLOMINE 10 MG/ML 2 ML AMP IM STA (23:05)
[2023-01-27] MEDS ORDERED: HYDROmorphone 0.5 MG/0.5 ML SYRINGE IVP STA (23:05)
[2023-01-28 01:03] VITALS: BP 97/50; PULSE 71
== END 2023-01-28 00:57 | disposition home or self-care (01) ==
LOC: EC 19:28
DX: R11.2 Nausea with vomiting, unspecified (principal); R19.7 Diarrhea, unspecified; R10.84 Generalized abdominal pain; N18.30 Chronic kidney disease, stage 3 unspecified; G40.909 Epilepsy, unspecified, not intractable, without status epilepticus; F41.9 Anxiety disorder, unspecified; Z20.822 Contact with and (suspected) exposure to COVID-19; Z79.899 Other long term (current) drug therapy; Z88.0 Allergy status to penicillin; Z88.1 Allergy status to other antibiotic agents; Z88.5 Allergy status to narcotic agent; Z88.7 Allergy status to serum and vaccine; Z88.8 Allergy status to other drugs, medicaments and biological substances; Z91.040 Latex allergy status; Z90.49 Acquired absence of other specified parts of digestive tract; Z95.0 Presence of cardiac pacemaker; Z86.711 Personal history of pulmonary embolism
CPT/HCPCS: 36415; 80053; 82150; 83605; 83690; 85025; 81003; 87636; 99284; 96374; 96375; 96376; 96361; 96372; J0500; J2405; J1170 ×2

== ENCOUNTER 2023-02-16 14:37 | Emergency (ER) | payer BC, MEDICARE ==
--- NOTE | 2023-02-16 15:16 | ED ---
Chest Pain HPI - General Source: patient, RN notes reviewed Mode of arrival: wheelchair Limitations: no limitations <Norris Hamilton - Last Filed: 02/16/23 15:16> <Vanda Jasmine - Last Filed: 02/19/23 07:37> - General Chief Complaint: Chest Pain Stated Complaint: bad abdo pain Time Seen by Provider: 02/16/23 15:16 - History of Present Illness Initial Comments: 57-year-old female presents emergency Department chief complaint of chest and abdominal pain. Patient states she's had excessive diarrhea, chest pain she itches abdominal cramping. She should've her multiple antibiotics for sepsis she is concerned about possible C. diff. (Norris Hamilton) 57-year-old female presents to the emergency Department chief complaint of chest pain and abdominal pain. She reports that her abdominal pain is localized to the epigastric area. She reports she's had excessive nausea, vomiting, diarrhea. She has generalized abdominal cramping. She reports that she had a previous PICC line that was infected and was treated for sepsis over the summer months. She reports that she is concerned for C. diff. She denies any known fevers however. Has felt chilled. He endorses that her chest pain is likely related to her abdominal pain. She denies any hematemesis, melena, hematochezia. (Vanda Jasmine) - Related Data Home Medications Medication Instructions Recorded Confirmed Atorvastatin [Lipitor] 40 mg PO HS 09/24/21 02/18/23 Cholestyramine (with Sugar) 4 gm PO DAILY PRN 09/24/21 02/18/23 [Cholestyramine Packet] Gabapentin 300 mg PO QID 09/24/21 02/18/23 Sertraline [Zoloft] 200 mg PO DAILY 09/24/21 02/18/23 Ubrogepant [Ubrelvy] 100 mg PO BID PRN 09/24/21 02/18/23 rOPINIRole HCL [Requip] 2 mg PO HS 09/24/21 02/18/23 Esomeprazole Magnesium [NexIUM] 40 mg PO DAILY 03/16/22 02/18/23 Botox 200unit Injection 1 dose INJ Q84D 04/02/22 02/18/23 Diphenhydramine 50mg/Ml Vial 50 mg IM Q6H PRN 04/18/22 02/18/23 Apixaban [Eliquis] 5 mg PO BID 05/29/22 02/18/23 Spironolactone [Aldactone] 50 mg PO DAILY 06/11/22 02/18/23 busPIRone HCl [Buspar] 5 mg PO BID 06/11/22 02/18/23 Bumetanide [BUMEX] 2 mg PO DAILY 06/24/22 02/18/23 Lidocaine 5% Patch [Lidoderm 5% 1 patch TRANSDERM DAILY PRN 08/26/22 02/18/23 Patch] Fludrocortisone [Florinef] 0.1 mg PO DAILY 09/20/22 02/18/23 Midodrine [ProAmatine] 5 mg PO TID PRN 10/29/22 02/18/23 Ondansetron [Zofran] 4 mg PO Q8H PRN 11/29/22 02/18/23 Nystatin 100,000 Unit/gm Powd 1 applic TOPICAL BID PRN 01/06/23 02/18/23 [Mycostatin Powder] Nystatin 100,000 Unit/ml Susp 500,000 unit PO QID PRN 01/06/23 02/18/23 [Mycostatin Oral Susp] Sucralfate [Carafate] 1 gm PO ACHS 01/06/23 02/18/23 Ipratropium Nebulized [Atrovent 0.5 mg INHALATION QID PRN 01/12/23 02/18/23 Nebulized 0.2 MG/ML] Potassium Chloride ER [K-Dur 20] 20 meq PO DAILY 01/12/23 02/18/23 Bumetanide [Bumex] 1 mg PO HS 02/16/23 02/18/23 Famotidine 20 mg PO BID 02/16/23 02/18/23 HYDROcodone/APAP 10-325MG [[place] 0.5 tab PO TID 02/16/23 02/18/23 10-325] Levalbuterol Nebulized [Xopenex 0.31 mg INHALATION RT-TID PRN 02/16/23 02/18/23 Nebulized (Pediatric)] Meclizine [Antivert] 12.5 mg PO Q8H PRN 02/16/23 02/18/23 Metoprolol Succinate (ER) [Toprol 50 mg PO HS 02/16/23 02/18/23 Xl] Previous Rx's Medication Instructions Recorded Dicyclomine [Bentyl] 20 mg PO TID PRN #30 tablet 04/30/22 Zonisamide [Zonegran] 100 mg PO Q12HR 30 Days #60 cap 07/26/22 Lacosamide [Vimpat] 50 mg PO BID tab 11/05/22 Allergies Allergy/AdvReac Type Severity Reaction Status Date / Time Penicillins Allergy Severe Anaphylaxis Verified 02/18/23 22:55 vancomycin Allergy Severe Swelling Verified 02/18/23 22:55 in lips albuterol [From Ventolin HFA] Allergy Rapid Verified 02/18/23 22:55 Heart Rate cefepime Allergy Swelling Verified 02/18/23 22:55 clindamycin Allergy Anaphylaxis Verified 02/18/23 22:55 dexamethasone [From Decadron] Allergy Unknown Verified 02/18/23 22:55 Influenza Virus Vaccines Allergy Unknown Verified 02/18/23 22:55 latex Allergy Unknown Verified 02/18/23 22:55 morphine Allergy Unknown Verified 02/18/23 22:55 prochlorperazine Allergy Unknown Verified 02/18/23 22:55 [From Compazine] [id number] AdvReac Confusion, Verified 02/18/23 22:55 [From Emgality Pen] increased blood pressure metoclopramide [From Reglan] AdvReac "felt like Verified 02/18/23 22:55 I needed to jump out of my skin" Review of Systems ROS Other: All systems not noted in ROS Statement are negative. <Norris Hamilton - Last Filed: 02/16/23 15:16> ROS Other: All systems not noted in ROS Statement are negative. <Vanda Jasmine - Last Filed: 02/19/23 07:37> ROS Statement: Those systems with pertinent positive or pertinent negative responses have been documented in the HPI. 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 for low K+. lupus History of Any Multi-Drug Resistant Organisms: C-DIFF Date of last positivie culture/infection: 2021 MDRO Source:: Stool Past Surgical History: Back Surgery, Breast Surgery, Cardiac Valve Replacement, Section, Cholecystectomy, Heart Catheterization, Hysterectomy, Pacemaker Additional Past Surgical History / Comment(s): pacemaker d/t bradycardia/hypotension with last one place in 2013 in [place], [place], 3 lower back surgeries, bilateral breast reduction. 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 Past Anesthesia/Blood Transfusion Reactions: No Reported Reaction Type of Cardiac Device: Permanent Pacemaker, Unknown Device Placement Date:: 2012 Past Psychological History: Anxiety Smoking Status: Never smoker Past Alcohol Use History: None Reported Past Drug Use History: None Reported - Past Family History Mother Additional Family Medical History / Comment(s): Mother at the age of 49 yrs after surgery for silicon breast implants with a leak that caused ARDS and DIC per pt Father Family Medical History: Cancer, Hyperlipidemia, Hypertension Additional Family Medical History / Comment(s): Father is a colon cancer survi vor. <Norris Hamilton - Last Filed: 02/16/23 15:16> General Exam Limitations: no limitations <Norris Hamilton - Last Filed: 02/16/23 15:16> <Vanda Jasmine - Last Filed: 02/19/23 07:37> - General Exam Comments Initial Comments: Visual Physical Exam Vital signs reviewed General: Well-appearing, nontoxic, no acute distress. Head: Normocephalic, atraumatic Eyes: PERRLA, EOMI ENT: Airway patent Chest: Nonlabored breathing Skin: No visual rash, normal skin tone Neuro: Alert and oriented 3 Musculoskeletal: No gross abnormalities (Norris Hamilton) General: Alert, in no acute distress Head: atraumatic normocephalic. Eyes PERRL, EOMI intact, mucous membranes moist Respiratory: Lungs clear to auscultation bilaterally Cardiovascular: Heart rate regular rate and rhythm Abdominal: Soft without guarding or rebound, multiple old abdominal surgical scars that appear well healed. Extremities: Normal inspection with full range of motion and normal capillary refill Neuroogic: alert and oriented 3, CN II-XII intact, able to ambulate with steady gait Skin: warm dry and intact with normal color (Vanda Jasmine) Course <Vanda Jasmine - Last Filed: 02/19/23 07:37> Vital Signs 02/16/23 02/16/23 14:49 20:47 Temperature 98.4 F 99.4 F Pulse Rate 71 70 Respiratory 18 20 Rate Blood Pressure 107/67 137/80 O2 Sat by Pulse 97 97 Oximetry - Reevaluation(s) Reevaluation #1: 02/16/23 22:39 Patient reevaluated. Patient aware awaiting CT results. Patient resting comfortably. She reports some improvement to her headache. (Vanda Jasmine) Chest Pain MDM <Norris Hamilton - Last Filed: 02/16/23 15:16> <Vanda Jasmine - Last Filed: 02/19/23 07:37> - MDM I performed the quick note portion of this chart signed Norris Hamilton PA-C (Norris Hamilton) Was pt. sent in by a medical professional or institution ([facility], WATCH REPAIRER APPRENTICE, urgent care, hospital, or residential...) When possible be specific @ -[No] Did you speak to anyone other than the patient for history (EMS, parent, family, police, friend...)? What history was obtained from this source @ -[No] Did you review nursing and triage notes (agree or disagree)? Why? @ -[I reviewed and agree with nursing and triage notes] Were old charts reviewed (outside hosp., previous admission, EMS record, old EKG, old radiological studies, urgent care reports/EKG's, residential records)? Report findings @ -[No old charts were reviewed] Differential Diagnosis (chest pain, altered mental status, abdominal pain women, abdominal pain men, vaginal bleeding, weakness, fever, dyspnea, syncope, headache, dizziness, GI bleed, back pain, seizure, CVA, palpatations, mental health, musculoskeletal)? @ -[not applicable] EKG interpreted by me (3pts min.). @ -[As above] X-rays interpreted by me (1pt min.). @ -[None done] CT interpreted by me (1pt min.). @ -Yes U/S interpreted by me (1pt. min.). @ -[None done] What testing was considered but not performed or refused? (CT, X-rays, U/S, labs)? Why? @ -[None] What meds were considered but not given or refused? Why? @ -[None] Did you discuss the management of the patient with other professionals (professionals i.e. Dr., PA, WATCH REPAIRER APPRENTICE, lab, RT, psych nurse, medical social worker, telephone coin box collector, teacher, development officer, housing case manager)? Give summary @ -[No] Was smoking cessation discussed for >3mins.? @ -[No] Was critical care preformed (if so, how long)? @ -[No] Were there social determinants of health that impacted care today? How? (Homelessness, low income, unemployed, alcoholism, drug addiction, transportation, low edu. Level, literacy, decrease access to med. care, residential, rehab)? @ -[No] Was there de-escalation of care discussed even if they declined (Discuss DNR or withdrawal of care, Hospice)? DNR status @ -[No] What co-morbidities impacted this encounter? (DM, HTN, Smoking, COPD, CAD, Cancer, CVA, ARF, Chemo, Hep., AIDS, mental health diagnosis, sleep apnea, morbid obesity)? @ -[None] Was patient admitted / discharged? Hospital course, mention meds given and route, prescriptions, significant lab abnormalities, going to OR and other pertinent info. @ -Discharge. This is a 57-year-old female who presents the emergency department with abdominal pain. Patient had a thorough history and physical exam performed on the ED. Heart rate regular rate and rhythm, lungs clear to auscultation bilaterally abdomen soft, with generalized tenderness. Patient laboratory studies which revealed WBC 6.7, hemoglobin 12.5 coagulation studies unremarkable sodium 134, potassium 4.3 BUN 27, creatinine 1.7, lactic acid 0.8 magnesium 2.6 troponin negative Covid and influenza RSV negative Interpreted the following: CT without contrast reveals no acute intra-abdominal process or evidence of obstruction. I discussed results in detail with the patient verbalized understanding all questions were addressed. She is agreeable with the plan for discharge home. She will given Dilaudid, Benadryl, Zofran, GI cocktail with symptomatic improvement. Strict return parameters were discussed at length. Case discussed with Dr. Perdomo, [facility] patient clinically Undiagnosed new problem with uncertain prognosis? @ -[No] Drug Therapy requiring intensive monitoring for toxicity (Heparin, Nitro, Insulin, Cardizem)? @ -[No] Were any procedures done? @ -[No] Diagnosis/symptom? @ -Abdominal Pain - Nausea and Vomiting Acute, or Chronic, or Acute on Chronic? @ -Acute Uncomplicated (without systemic symptoms) or Complicated (systemic symptoms)? @ -Uncomplicated Side effects of treatment? @ -[No] Exacerbation, Progression, or Severe Exacerbation? @ -[No] Poses a threat to life or bodily function? How? (Chest pain, [place], [place], pneumonia, PE, COPD, DKA, ARF, appy, cholecystitis, CVA, Diverticulitis, Homicidal, Suicidal, threat to staff... and all critical care pts) @ -Low likelihood d (Vanda Jasmine) Disposition <Norris Hamilton - Last Filed: 02/16/23 15:16> Is patient prescribed a controlled substance at d/c from ED?: No Time of Disposition: 07:37 <Vanda Jasmine - Last Filed: 02/19/23 07:37> Clinical Impression: Abdominal pain, Drug-seeking behavior Disposition: HOME SELF-CARE Condition: Stable Additional Instructions: Please return to the nearest emergency department if symptoms worsen or persist Referrals: Franklin Hassan MD [Primary Care Provider] - 1-2 days
--- NOTE | 2023-02-16 19:04 | XR ---
EXAMINATION TYPE: XR chest 2V DATE OF EXAM: 02/16/2023 6:59 PM CLINICAL INDICATION:Female, 57 years old with history of Chest Pain; [facility] COMPARISON: Chest radiographs from 01/02/2023 TECHNIQUE: XR chest 2V Frontal and lateral views of the chest. FINDINGS: Lungs/Pleura: There is no evidence of pleural effusion, focal consolidation, or pneumothorax. Pulmonary vascularity: Unremarkable. Heart/mediastinum: Cardiomediastinal silhouette is enlarged and stable. Post valve repair changes. A loop recorder projects over the left thorax over the heart. Cardiac conduction device projecting ove r the right atrium. Musculoskeletal: No acute osseous pathology. IMPRESSION: 1. No acute cardiopulmonary disease/process. 2. Cardiomegaly with post valvular repair changes.
[2023-02-16] MEDS ORDERED: ONDANSETRON 4 MG/2 ML VIAL IVP STA (19:38)
[2023-02-16] MEDS ORDERED: MAG HYDROX/AL HYDROX/SIMETH 30 ML, HYOSCYAMINE ELIXIR 10 ML, LIDOCAINE 2% GLYDO JELLY 1... PO STA ×3 (19:38)
[2023-02-16] MEDS ORDERED: SODIUM CHLORIDE 0.9% 1,000 ML IV ONE (19:38)
[2023-02-16] MEDS ORDERED: HYDROmorphone 1 MG/ML 1 ML SYRINGE IVP STA (20:39)
[2023-02-16 20:41] LABS: Basophils % (A) 0 %; Eosinophils # (A) 0.1 k/uL (0-0.7); Eosinophils % (A) 2 %; HCT 38.8 % (34.0-46.0); HGB 12.5 gm/dL (11.4-16.0); Lymphocytes # (A) 1.5 k/uL (1.0-4.8); Lymphocytes % (A) 22 %; MCH 26.6 pg (25.0-35.0); MCHC 32.2 g/dL (31.0-37.0); MCV 82.7 fL (80.0-100.0); Mean Platelet Volume 8.5; Monocytes # (A) 0.4 k/uL (0-1.0); Monocytes % (A) 7 %; Neutrophils # (A) 4.4 k/uL (1.3-7.7); Neutrophils % (A) 66 %; Platelet Count 296 k/uL (150-450); RDW 15.9 % (11.5-15.5); WBC 6.7 k/uL (3.8-10.6)
[2023-02-16 20:55] LABS: INR 1.1 (<1.2); Partial Thromboplastin Time 29.8 sec (22.0-30.0); Prothrombin Time 11.7 sec (10.0-12.5)
[2023-02-16 20:58] LABS: Potassium 4.3 mmol/L (3.5-5.1); Sodium 134 mmol/L (137-145)
[2023-02-16 21:01] LABS: ALT 27 U/L (4-34); AST 31 U/L (14-36); African American GFR (CKD) 38 (>60 ml/min/1.73 sqM); Albumin 4.4 g/dL (3.5-5.0); Alkaline Phosphatase 72 U/L (38-126); Anion Gap 12 mmol/L; Blood Urea Nitrogen 27 mg/dL (7-17); Calcium 9.8 mg/dL (8.4-10.2); Carbon Dioxide 24 mmol/L (22-30); Chloride 98 mmol/L (98-107); Glucose 101 mg/dL (74-99); Lipase 102 U/L (23-300); Magnesium 2.6 mg/dL (1.6-2.3); Non-African American GFR(CKD) 33 (>60 ml/min/1.73 sqM); Total Bilirubin 0.3 mg/dL (0.2-1.3); Total Protein 7.1 g/dL (6.3-8.2)
[2023-02-16 21:04] VITALS: BP 137/80; PULSE 70; RESP 20; TEMP 99.4
[2023-02-16] MEDS ORDERED: diphenhydrAMINE 50 MG/ML 1 ML VIAL IVP STA (21:55)
--- NOTE | 2023-02-16 22:30 | CT ---
EXAMINATION TYPE: CT abdomen pelvis wo con CT DLP: 512.5 mGycm, Automated exposure control for dose reduction was used. DATE OF EXAM: 02/16/2023 10:05 PM COMPARISON: CT abdomen pelvis most recent from 12/31/2022 CLINICAL INDICATION:Female, 57 years old with history of abdominal pain; Upper abdominal pain TECHNIQUE: Axial CT of the abdomen and pelvis. Sagittal and coronal reformats were created on a [employer] workstation. Contrast used: mL of , (none if empty) Oral contrast used: without Oral Contrast (none if empty) FINDINGS: LOWER CHEST: Heart is moderately enlarged for size. Post aortic valve repair changes. ABDOMEN LIVER: Unremarkable GALLBLADDER AND BILE DUCTS: Gallbladder is surgically absent with mild intrahepatic and extra hepatic biliary dilatation likely physiologic and a postcholecystectomy change. No evidence of choledocholit hiasis. PANCREAS: There is a low-density pancreas uncinate process best appreciated on series 202 image 46 SPLEEN: Small splenule is present. ADRENAL GLANDS: Unremarkable. KIDNEYS AND URETERS: Atrophic right kidney. No evidence of hydronephrosis or obstructive renal calcul us. Nonobstructing calculi measuring 4 mm on the left and 3 mm on the right. The ureters are unremark able. PELVIS BLADDER: Unremarkable REPRODUCTIVE: The uterus is surgically absent. ABDOMEN & PELVIS STOMACH AND BOWEL: No evidence of bowel obstruction. Small hiatal hernia. PERITONEUM/RETROPERITONEUM: No evidence of pneumoperitoneum or free fluid. VASCULATURE: No evidence of aortic aneurysm. MUSCULOSKELETAL: No acute osseous abnormalities. Moderate disc degeneration changes are present throu ghout the thoracolumbar spine., post fixation changes to the lower spine appears intact. Grade 1 ante rolisthesis of L3 on L4. No evidence for spondylolysis. LYMPH NODES: No gross evidence for lymphadenopathy. SOFT TISSUE/ABDOMINAL WALL: Unremarkable IMPRESSION: 1. Similar exam, Small hiatal hernia otherwise no definitive evidence for acute upper abdominal proc ess to explain the patient's pain. 2. Low-density area in the area of the pancreas uncinate process evaluation with MRI pancreatic mass protocol recommended. Correlation with serum lipase should also be done. 3. Atrophic right kidney with nonobstructing bilateral renal calculi
[2023-02-17] MEDS ORDERED: ONDANSETRON 4 MG/2 ML VIAL ONE (01:28)
== END 2023-02-17 01:31 | disposition home or self-care (01) ==
LOC: EC 14:37
DX: Z76.5 Malingerer [conscious simulation] (principal); I51.7 Cardiomegaly; K44.9 Diaphragmatic hernia without obstruction or gangrene; N20.0 Calculus of kidney; N26.1 Atrophy of kidney (terminal); F41.9 Anxiety disorder, unspecified; Z79.899 Other long term (current) drug therapy; Z88.0 Allergy status to penicillin; Z88.7 Allergy status to serum and vaccine; Z91.040 Latex allergy status; Z88.5 Allergy status to narcotic agent; Z88.8 Allergy status to other drugs, medicaments and biological substances; Z88.1 Allergy status to other antibiotic agents; Z90.49 Acquired absence of other specified parts of digestive tract; Z95.0 Presence of cardiac pacemaker
CPT/HCPCS: 36415; 93005; 80053; 83605; 83690; 83735; 84484; 85025; 85610; 85730; 87636; 71046; 74176; 99285; 96374; 96375 ×2; 96376; 96361; J1200; J2405 ×2; J1170

== ENCOUNTER 2023-02-18 13:38 | Emergency (ER) | payer BC, MEDICARE ==
--- NOTE | 2023-02-18 13:41 | ED ---
Abdominal Pain HPI - General Source: RN notes reviewed <Carly Melendez - Last Filed: 02/18/23 13:40> <Indra Krishnan - Last Filed: 02/18/23 23:08> - General Stated Complaint: Nausea, abd pain Time Seen by Provider: 02/18/23 13:40 - History of Present Illness Initial Comments: Patient is a 57-year-old female who presents the emergency department for reevaluation of abdominal pain (Carly Melendez) Patient is a 57-year-old female presents emergency department over concern for acute on chronic abdominal pain as well as diarrhea. Patient is well-known to this department. States symptoms have been ongoing for the last few days to week. Recently and CT imaging. Had antibiotics a few months ago. Is concerned that she may have C. diff which is why she presents for evaluation. Denies any significant nausea or emesis. Denies any bloody diarrhea. Denies any urinary complaints. Denies any chest pain or shortness of breath. No other acute complaints at this time. Presents for further evaluation at this time. Recently's had a CT imaging 2 days ago which was unremarkable.Patient originally evaluated as a quick note. (Indra Krishnan) - Related Data Home Medications Medication Instructions Recorded Confirmed Atorvastatin [Lipitor] 40 mg PO HS 09/24/21 02/18/23 Cholestyramine (with Sugar) 4 gm PO DAILY PRN 09/24/21 02/18/23 [Cholestyramine Packet] Gabapentin 300 mg PO QID 09/24/21 02/18/23 Sertraline [Zoloft] 200 mg PO DAILY 09/24/21 02/18/23 Ubrogepant [Ubrelvy] 100 mg PO BID PRN 09/24/21 02/18/23 rOPINIRole HCL [Requip] 2 mg PO HS 09/24/21 02/18/23 Esomeprazole Magnesium [NexIUM] 40 mg PO DAILY 03/16/22 02/18/23 Botox 200unit Injection 1 dose INJ Q84D 04/02/22 02/18/23 Diphenhydramine 50mg/Ml Vial 50 mg IM Q6H PRN 04/18/22 02/18/23 Apixaban [Eliquis] 5 mg PO BID 05/29/22 02/18/23 Spironolactone [Aldactone] 50 mg PO DAILY 06/11/22 02/18/23 busPIRone HCl [Buspar] 5 mg PO BID 06/11/22 02/18/23 Bumetanide [BUMEX] 2 mg PO DAILY 06/24/22 02/18/23 Lidocaine 5% Patch [Lidoderm 5% 1 patch TRANSDERM DAILY PRN 08/26/22 02/18/23 Patch] Fludrocortisone [Florinef] 0.1 mg PO DAILY 09/20/22 02/18/23 Midodrine [ProAmatine] 5 mg PO TID PRN 10/29/22 02/18/23 Ondansetron [Zofran] 4 mg PO Q8H PRN 11/29/22 02/18/23 Nystatin 100,000 Unit/gm Powd 1 applic TOPICAL BID PRN 01/06/23 02/18/23 [Mycostatin Powder] Nystatin 100,000 Unit/ml Susp 500,000 unit PO QID PRN 01/06/23 02/18/23 [Mycostatin Oral Susp] Sucralfate [Carafate] 1 gm PO ACHS 01/06/23 02/18/23 Ipratropium Nebulized [Atrovent 0.5 mg INHALATION QID PRN 01/12/23 02/18/23 Nebulized 0.2 MG/ML] Potassium Chloride ER [K-Dur 20] 20 meq PO DAILY 01/12/23 02/18/23 Bumetanide [Bumex] 1 mg PO HS 02/16/23 02/18/23 Famotidine 20 mg PO BID 02/16/23 02/18/23 HYDROcodone/APAP 10-325MG [[place] 0.5 tab PO TID 02/16/23 02/18/23 10-325] Levalbuterol Nebulized [Xopenex 0.31 mg INHALATION RT-TID PRN 02/16/23 02/18/23 Nebulized (Pediatric)] Meclizine [Antivert] 12.5 mg PO Q8H PRN 02/16/23 02/18/23 Metoprolol Succinate (ER) [Toprol 50 mg PO HS 02/16/23 02/18/23 Xl] Previous Rx's Medication Instructions Recorded Dicyclomine [Bentyl] 20 mg PO TID PRN #30 tablet 04/30/22 Zonisamide [Zonegran] 100 mg PO Q12HR 30 Days #60 cap 07/26/22 Lacosamide [Vimpat] 50 mg PO BID tab 11/05/22 Allergies Allergy/AdvReac Type Severity Reaction Status Date / Time Penicillins Allergy Severe Anaphylaxis Verified 02/18/23 22:55 vancomycin Allergy Severe Swelling Verified 02/18/23 22:55 in lips albuterol [From Ventolin HFA] Allergy Rapid Verified 02/18/23 22:55 Heart Rate cefepime Allergy Swelling Verified 02/18/23 22:55 clindamycin Allergy Anaphylaxis Verified 02/18/23 22:55 dexamethasone [From Decadron] Allergy Unknown Verified 02/18/23 22:55 Influenza Virus Vaccines Allergy Unknown Verified 02/18/23 22:55 latex Allergy Unknown Verified 02/18/23 22:55 morphine Allergy Unknown Verified 02/18/23 22:55 prochlorperazine Allergy Unknown Verified 02/18/23 22:55 [From Compazine] [id number] AdvReac Confusion, Verified 02/18/23 22:55 [From Emgality Pen] increased blood pressure metoclopramide [From Reglan] AdvReac "felt like Verified 02/18/23 22:55 I needed to jump out of my skin" Review of Systems ROS Other: All systems not noted in ROS Statement are negative. <Carly Melendez - Last Filed: 02/18/23 13:40> ROS Other: All systems not noted in ROS Statement are negative. <Indra Krishnan - Last Filed: 02/18/23 23:08> ROS Statement: Those systems with pertinent positive or pertinent negative responses have been documented in the HPI. Review of Systems: CONST: Denies fever EYES: Denies blurry vision ENT: Denies nasal congestion C/V: Denies Chest pain RESP: Denies shortness of breath GI: Endorses abdominal pain : Denies dysuria SKIN: Denies rash. MSK: Denies joint pain. 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 for low K+. lupus History of Any Multi-Drug Resistant Organisms: C-DIFF Date of last positivie culture/infection: 2021 MDRO Source:: Stool Past Surgical History: Back Surgery, Breast Surgery, Cardiac Valve Replacement, Section, Cholecystectomy, Heart Catheterization, Hysterectomy, Pacemaker Additional Past Surgical History / Comment(s): pacemaker d/t bradycardia/hypotension with last one place in 2013 in [place], [place], 3 lower back surgeries, bilateral breast reduction. 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 Past Anesthesia/Blood Transfusion Reactions: No Reported Reaction Type of Cardiac Device: Permanent Pacemaker, Unknown Device Placement Date:: 2012 Past Psychological History: Anxiety Smoking Status: Never smoker Past Alcohol Use History: None Reported Past Drug Use History: None Reported - Past Family History Mother Additional Family Medical History / Comment(s): Mother at the age of 49 yrs after surgery for silicon breast implants with a leak that caused ARDS and DIC per pt Father Family Medical History: Cancer, Hyperlipidemia, Hypertension Additional Family Medical History / Comment(s): Father is a colon cancer survivor. <Carly Melendez - Last Filed: 02/18/23 13:40> General Exam <Carly Melendez - Last Filed: 02/18/23 13:40> <Indra Krishnan - Last Filed: 02/18/23 23:08> - General Exam Comments Initial Comments: Visual Physical Exam Vital signs reviewed General: Well-appearing, nontoxic, no acute distress. Head: Normocephalic, atraumatic Eyes: PERRLA, EOMI ENT: Airway patent Chest: Nonlabored breathing Skin: No visual rash, normal skin tone Neuro: Alert and oriented 3 Musculoskeletal: No gross abnormalities (Carly Melendez) General: Appears in mild distress. HEAD: Normal with no signs of head trauma. EYES: PERRLA, EOMI, conjunctiva normal, no discharge. ENT: Hearing grossly intact, normal oropharynx. RESPIRATORY: Clear breath sounds bilaterally. No wheezes, rales, or rhonchi. C/V: Regular rate and rhythm. S1 and S2 auscultated, no edema, peripheral pulses 2+ and intact throughout ABD: Abdomen is soft, nondistended. Mild tenderness to palpation diffusely. No focal area of tenderness. No guarding. No rebound tenderness. No peritoneal signs. EXT: Normal range of motion, no obvious deformity SKIN: No rashes or lesions observed on exposed skin. NEURO: Alert and oriented 4. (Indra Krishnan) Course Vital Signs 02/18/23 14:11 Temperature 98.4 F Pulse Rate 74 Respiratory 20 Rate Blood Pressure 96/64 O2 Sat by Pulse 97 Oximetry Medical Decision Making <Carly Melendez - Last Filed: 02/18/23 13:40> - Lab Data Result diagrams: 02/18/23 18:44 02/18/23 18:44 <Indra Krishnan - Last Filed: 02/18/23 23:08> - Medical Decision Making I performed the QuickNote portion of this chart - Carly Melendez PA-C (Carly Melendez) Was pt. sent in by a medical professional or institution ([facility], SECURITY INCIDENT RESPONSE ENGINEER, urgent care, hospital, or longterm...) When possible be specific @ -No Did you speak to anyone other than the patient for history (EMS, parent, family, police, friend...)? What history was obtained from this source @ -No Did you review nursing and triage notes (agree or disagree)? Why? @ -I reviewed and agree with nursing and triage notes Were old charts reviewed (outside hosp., previous admission, EMS record, old EKG, old radiological studies, urgent care reports/EKG's, longterm records)? Report findings @ -Old charts reviewed. Differential Diagnosis (chest pain, altered mental status, abdominal pain women, abdominal pain men, vaginal bleeding, weakness, fever, dyspnea, syncope, headache, dizziness, GI bleed, back pain, seizure, CVA, palpatations, mental health, musculoskeletal)? @ -Differential Abdominal Pain Women: Appendicitis, Cholecystitis, diverticulosis, ischemic bowel, pancreatitis, hepatitis, UTI, gastroenteritis, AAA, incarcerated hernia, bowel obstruction, constipation, inflammatory bowel, hepatitis, peptic ulcer disease, splenic infarction, perforated viscus, vulvitis, ovarian torsion, PID, kidney stone, placenta abruption, this is not meant to be an all-inclusive list EKG interpreted by me (3pts min.). @ -None done X-rays interpreted by me (1pt min.). @ -None done CT interpreted by me (1pt min.). @ -None done U/S interpreted by me (1pt. min.). @ -None done What testing was considered but not performed or refused? (CT, X-rays, U/S, labs)? Why? @ -None What meds were considered but not given or refused? Why? @ -None Did you discuss the management of the patient with other professionals (professionals i.e. Dr., PA, SECURITY INCIDENT RESPONSE ENGINEER, lab, RT, psych nurse, social worker clinical, job coach, teacher, energy control officer, employment case manager)? Give summary @ -No Was smoking cessation discussed for >3mins.? @ -No Was critical care preformed (if so, how long)? @ -No Were there social determinants of health that impacted care today? How? (Homelessness, low income, unemployed, alcoholism, drug addiction, transportation, low edu. Level, literacy, decrease access to med. care, long-term, rehab)? @ -No Was there de-escalation of care discussed even if they declined (Discuss DNR or withdrawal of care, Hospice)? DNR status @ -No What co-morbidities impacted this encounter? (DM, HTN, Smoking, COPD, CAD, Cancer, CVA, ARF, Chemo, Hep., AIDS, mental health diagnosis, sleep apnea, morbi d obesity)? @ -None Was patient admitted / discharged? Hospital course, mention meds given and route, prescriptions, significant lab abnormalities, going to OR and other pertinent info. @ -Based on the patient's presentation and physical exam, I am concerned for was likely her chronic abdominal pain with associated diarrhea. Patient is con cerned for C. diff. Brought a stool sample. We will obtain C. diff testing as well as abdominal laboratory studies. Patient's workup was started as a quick no however labs were not sent other than urine. She'll be sent likely treatment with IV fluids, pain control, as well as GI cocktail and Zofran. She was in agreement this plan. Vital signs within acceptable limits. Patient's laboratory studies are remarkable for mild hypokalemia at 3.2 which is somewhat chronic for the patient, and this was replenished.. Patient has also a chronic elevated BUN/creatinine and at her baseline.. Remainder the labs unremarkable. There was a long delay in obtaining C. diff results which ultimately returned negative. I discussed results with the patient. She'll be discharged home. Recommended follow-up with her PCP. I instructed the patient to follow up with their PCP in the next 1-3 days. I explained that the patient should return to the emergency department if they experience any worsening symptoms. Strict return precautions were discussed with the patient. The patient expressed understanding of these instructions. I answered all questions that the patient had. The patient was discharged home in good condition with their prescriptions and follow up information. Undiagnosed new problem with uncertain prognosis? @ -No Drug Therapy requiring intensive monitoring for toxicity (Heparin, Nitro, Insulin, Cardizem)? @ -No Were any procedures done? @ -No Diagnosis/symptom? @ -Abdominal pain Acute, or Chronic, or Acute on Chronic? @ -Chronic Uncomplicated (without systemic symptoms) or Complicated (systemic symptoms)? @ -Uncomplicated Side effects of treatment? @ -No Exacerbation, Progression, or Severe Exacerbation? @ -No Poses a threat to life or bodily function? How? (Chest pain, [place], [place], pneumonia, PE, COPD, DKA, ARF, appy, cholecystitis, CVA, Diverticulitis, Homicidal, Suicidal, threat to staff... and all critical care pts) @ -No Diagnosis/symptom? @ -Hypokalemia Acute, or Chronic, or Acute on Chronic? @ -Acute on chronic Uncomplicated (without systemic symptoms) or Complicated (systemic symptoms)? @ -Uncomplicated Side effects of treatment? @ -none Exacerbation, Progression, or Severe Exacerbation] @ -no Poses a threat to life or bodily function? @ -Unlikely Diagnosis/symptom? @ -Diarrhea Acute, or Chronic, or Acute on Chronic? @ -Acute Uncomplicated (without systemic symptoms) or Complicated (systemic symptoms)? @ -Uncomplicated Side effects of treatment? @ -none Exacerbation, Progression, or Severe Exacerbation] @ -no Poses a threat to life or bodily function? @ -no (Indra Krishnan) - Lab Data Lab Results 02/18/23 02/18/23 02/18/23 Range/Units 14:48 18:44 18:44 WBC 5.7 (3.8-10.6) k/uL RBC 4.31 (3.80-5.40) m/uL Hgb 11.6 (11.4-16.0) gm/dL Hct 35.7 (34.0-46.0) % MCV 82.9 (80.0-100.0) fL MCH 26.9 (25.0-35.0) pg MCHC 32.4 (31.0-37.0) g/dL RDW 16.3 H (11.5-15.5) % Plt Count 246 (150-450) k/uL MPV 8.3 Neutrophils % 70 % Lymphocytes % 20 % Monocytes % 5 % Eosinophils % 2 % Basophils % 0 % Neutrophils # 4.0 (1.3-7.7) k/uL Lymphocytes # 1.2 (1.0-4.8) k/uL Monocytes # 0.3 (0-1.0) k/uL Eosinophils # 0.1 (0-0.7) k/uL Basophils # 0.0 (0-0.2) k/uL Hypochromasia Slight Anisocytosis Slight Sodium 137 (137-145) mmol/L Potassium 3.2 L (3.5-5.1) mmol/L Chloride 97 L (98-107) mmol/L Carbon Dioxide 27 (22-30) mmol/L Anion Gap 13 mmol/L BUN 28 H (7-17) mg/dL Creatinine 1.73 H (0.52-1.04) mg/dL Est GFR (CKD-EPI)AfAm 37 (>60 ml/min/1.73 sqM) Est GFR (CKD-EPI)NonAf 32 (>60 ml/min/1.73 sqM) Glucose 123 H (74-99) mg/dL Plasma Lactic Acid Raffi (0.7-2.0) mmol/L Calcium 9.5 (8.4-10.2) mg/dL Total Bilirubin 0.3 (0.2-1.3) mg/dL AST 24 (14-36) U/L ALT 23 (4-34) U/L Alkaline Phosphatase 70 (38-126) U/L Total Protein 7.1 (6.3-8.2) g/dL Albumin 4.3 (3.5-5.0) g/dL Lipase 163 (23-300) U/L Urine Color Colorless Urine Appearance Clear (Clear) Urine pH 5.0 (5.0-8.0) Ur Specific [place] 1.007 (1.001-1.035) Urine Protein Negative (Negative) Urine Glucose (UA) Negative (Negative) Urine Ketones Negative (Negative) Urine Blood Trace H (Negative) Urine Nitrite Negative (Negative) Urine Bilirubin Negative (Negative) Urine Urobilinogen <2.0 (<2.0) mg/dL Ur Leukocyte Esterase Negative (Negative) Urine RBC <1 (0-5) /hpf Ur Squamous Epith Cells <1 (0-4) /hpf Urine Bacteria Rare H (None) /hpf Hyaline Casts 6 H (0-2) /lpf Urine Mucus Rare H (None) /hpf C. difficile (EIA) Intrp (Negative) 02/18/23 02/18/23 Range/Units 18:44 18:44 WBC (3.8-10.6) k/uL RBC (3.80-5.40) m/uL Hgb (11.4-16.0) gm/dL Hct (34.0-46.0) % MCV (80.0-100.0) fL MCH (25.0-35.0) pg MCHC (31.0-37.0) g/dL RDW (11.5-15.5) % Plt Count (150-450) k/uL MPV Neutrophils % % Lymphocytes % % Monocytes % % Eosinophils % % Basophils % % Neutrophils # (1.3-7.7) k/uL Lymphocytes # (1.0-4.8) k/uL Monocytes # (0-1.0) k/uL Eosinophils # (0-0.7) k/uL Basophils # (0-0.2) k/uL Hypochromasia Anisocytosis Sodium (137-145) mmol/L Potassium (3.5-5.1) mmol/L Chloride (98-107) mmol/L Carbon Dioxide (22-30) mmol/L Anion Gap mmol/L BUN (7-17) mg/dL Creatinine (0.52-1.04) mg/dL Est GFR (CKD-EPI)AfAm (>60 ml/min/1.73 sqM) Est GFR (CKD-EPI)NonAf (>60 ml/min/1.73 sqM) Glucose (74-99) mg/dL Plasma Lactic Acid Raffi 1.6 (0.7-2.0) mmol/L Calcium (8.4-10.2) mg/dL Total Bilirubin (0.2-1.3) mg/dL AST (14-36) U/L ALT (4-34) U/L Alkaline Phosphatase (38-126) U/L Total Protein (6.3-8.2) g/dL Albumin (3.5-5.0) g/dL Lipase (23-300) U/L Urine Color Urine Appearance (Clear) Urine pH (5.0-8.0) Ur Specific [place] (1.001-1.035) Urine Protein (Negative) Urine Glucose (UA) (Negative) Urine Ketones (Negative) Urine Blood (Negative) Urine Nitrite (Negative) Urine Bilirubin (Negative) Urine Urobilinogen (<2.0) mg/dL Ur Leukocyte Esterase (Negative) Urine RBC (0-5) /hpf Ur Squamous Epith Cells (0-4) /hpf Urine Bacteria (None) /hpf Hyaline Casts (0-2) /lpf Urine Mucus (None) /hpf C. difficile (EIA) Intrp Negative (Negative) Disposition <Carly Melendez - Last Filed: 02/18/23 13:40> Is patient prescribed a controlled substance at d/c from ED?: No Time of Disposition: 22:50 <Indra Krishnan - Last Filed: 02/18/23 23:08> Clinical Impression: Chronic abdominal pain, Diarrhea, Hypokalemia Disposition: HOME SELF-CARE Condition: Good Instructions (If sedation given, give patient instructions): Acute Diarrhea (ED), Abdominal Pain (ED) Referrals: Franklin Hassan MD [Primary Care Provider] - 1-2 days
[2023-02-18 14:23] VITALS: TEMP 98.4
[2023-02-18 17:51] LABS: Appearance,Urine Clear (Clear); Bacteria,Urine Rare /hpf; Bilirubin,Urine Negative (Negative); Blood,Urine Trace (Negative); Color,Urine Colorless; Glucose,Urine (UA) Negative (Negative); Hyaline Casts,Urine 6 /lpf (0-2); Ketones,Urine Negative (Negative); Leukocyte Esterase,Urine Negative (Negative); Mucus,Urine Rare /hpf; Nitrite,Urine Negative (Negative); Protein,Urine Negative (Negative); RBC,Urine <1 /hpf (0-5); Specific Gravity,Urine 1.007 (1.001-1.035); Squamous Epithelial Cell,Urine <1 /hpf (0-4); Urobilinogen,Urine <2.0 mg/dL (<2.0)
[2023-02-18] MEDS ORDERED: ONDANSETRON 4 MG/2 ML VIAL IVP STA (18:02)
[2023-02-18] MEDS ORDERED: SODIUM CHLORIDE 0.9% 1,000 ML IV STA (18:02)
[2023-02-18] MEDS ORDERED: HYDROmorphone 0.5 MG/0.5 ML SYRINGE IVP STA ×2 (18:02→22:59)
[2023-02-18] MEDS ORDERED: MAG HYDROX/AL HYDROX/SIMETH 30 ML, HYOSCYAMINE ELIXIR 10 ML, LIDOCAINE 2% GLYDO JELLY 1... PO STA ×3 (18:02)
[2023-02-18 20:11] LABS: Anisocytosis Slight; Basophils % (A) 0 %; Eosinophils # (A) 0.1 k/uL (0-0.7); Eosinophils % (A) 2 %; HCT 35.7 % (34.0-46.0); HGB 11.6 gm/dL (11.4-16.0); Hypochromasia Slight; Lymphocytes # (A) 1.2 k/uL (1.0-4.8); Lymphocytes % (A) 20 %; MCH 26.9 pg (25.0-35.0); MCHC 32.4 g/dL (31.0-37.0); MCV 82.9 fL (80.0-100.0); Mean Platelet Volume 8.3; Monocytes # (A) 0.3 k/uL (0-1.0); Monocytes % (A) 5 %; Neutrophils % (A) 70 %; Platelet Count 246 k/uL (150-450); RBC 4.31 m/uL (3.80-5.40); RDW 16.3 % (11.5-15.5); WBC 5.7 k/uL (3.8-10.6)
[2023-02-18 20:23] LABS: ALT 23 U/L (4-34); AST 24 U/L (14-36); African American GFR (CKD) 37 (>60 ml/min/1.73 sqM); Albumin 4.3 g/dL (3.5-5.0); Alkaline Phosphatase 70 U/L (38-126); Anion Gap 13 mmol/L; Blood Urea Nitrogen 28 mg/dL (7-17); Calcium 9.5 mg/dL (8.4-10.2); Carbon Dioxide 27 mmol/L (22-30); Chloride 97 mmol/L (98-107); Glucose 123 mg/dL (74-99); Lipase 163 U/L (23-300); Non-African American GFR(CKD) 32 (>60 ml/min/1.73 sqM); Potassium 3.2 mmol/L (3.5-5.1); Sodium 137 mmol/L (137-145); Total Bilirubin 0.3 mg/dL (0.2-1.3); Total Protein 7.1 g/dL (6.3-8.2)
[2023-02-18] MEDS ORDERED: diphenhydrAMINE 50 MG/ML 1 ML VIAL IVP STA (22:13)
[2023-02-18] MEDS ORDERED: POTASSIUM CHLORIDE ER 20 MEQ TAB.ER PO STA (22:13)
[2023-02-18] MEDS ORDERED: DICYCLOMINE 10 MG CAP PO STA (22:13)
[2023-02-18] MEDS: HYDROmorphone 0.5 MG/0.5 ML SYRINGE IVP STA ×2 (22:52→23:02)
[2023-02-19 00:33] VITALS: BP 113/66; PULSE 70; RESP 18
== END 2023-02-19 00:13 | disposition home or self-care (01) ==
LOC: EC 13:38
DX: G89.29 Other chronic pain (principal); R10.84 Generalized abdominal pain; R19.7 Diarrhea, unspecified; E87.6 Hypokalemia; N18.30 Chronic kidney disease, stage 3 unspecified; F41.9 Anxiety disorder, unspecified; G40.909 Epilepsy, unspecified, not intractable, without status epilepticus; Z79.01 Long term (current) use of anticoagulants; Z79.899 Other long term (current) drug therapy; Z88.1 Allergy status to other antibiotic agents; Z88.0 Allergy status to penicillin; Z88.7 Allergy status to serum and vaccine; Z88.5 Allergy status to narcotic agent; Z88.8 Allergy status to other drugs, medicaments and biological substances; Z91.040 Latex allergy status; Z90.49 Acquired absence of other specified parts of digestive tract; Z95.0 Presence of cardiac pacemaker; Z86.711 Personal history of pulmonary embolism
CPT/HCPCS: 36415; 80053; 83605; 83690; 85025; 81001; 87324; 99284; 96374; 96375; 96376; 96361 ×2; J2405; J1170

== ENCOUNTER 2023-02-24 15:51 | Emergency (ER) | payer BC, MEDICARE ==
[2023-02-24 16:06] VITALS: TEMP 98.2
[2023-02-24] MEDS ORDERED: HYDROmorphone 1 MG/ML 1 ML SYRINGE IM STA (16:36)
[2023-02-24] MEDS ORDERED: diazePAM 5 MG TAB PO STA (16:36)
[2023-02-24] MEDS ORDERED: diphenhydrAMINE 50 MG CAP PO STA (16:36)
--- NOTE | 2023-02-24 16:38 | ED ---
Fall HPI - General Chief Complaint: Fall Stated Complaint: Fall Time Seen by Provider: 02/24/23 16:08 Source: patient, EMS, RN notes reviewed, old records reviewed Mode of arrival: EMS Limitations: no limitations - History of Present Illness Initial Comments: This is a 57-year-old female to the emergency department for evaluation. Patient had history of chronic pain history of chronic back and patient presents today for evaluation of severe back pain after a fall. Patient fell down a few stairs landing on her back and is concerned for back pain and back injury. Patient does have history of back surgery. Patient symptoms are just pain she was able to ambulate is able to move all extremities and has low no loss of bowel or bladder. MD Complaint: fall, other (Pain with chronic pain) -: hour(s) Fall From: standing, down stairs (#) When Fall Occurred: 1 hour [employer] Fall Witnessed: yes, by family Place Fall Occurred: home Loss of Consciousness: none Prolonged Down Time?: no Symptoms Prior to Fall: none Location: back Severity: mild Severity scale (1-10): 10 Quality: sharp, stabbing Context: tripped/slipped Associated Symptoms: denies - Related Data Home Medications Medication Instructions Recorded Confirmed Atorvastatin [Lipitor] 40 mg PO HS 09/24/21 03/05/23 Cholestyramine (with Sugar) 4 gm PO DAILY PRN 09/24/21 03/05/23 [Cholestyramine Packet] Gabapentin 300 mg PO QID 09/24/21 03/05/23 Sertraline [Zoloft] 200 mg PO DAILY 09/24/21 03/05/23 Ubrogepant [Ubrelvy] 100 mg PO BID PRN 09/24/21 03/05/23 rOPINIRole HCL [Requip] 2 mg PO HS 09/24/21 03/05/23 Esomeprazole Magnesium [NexIUM] 40 mg PO DAILY 03/16/22 03/05/23 Botox 200unit Injection 1 dose INJ Q84D 04/02/22 03/05/23 Diphenhydramine 50mg/Ml Vial 50 mg IM Q6H PRN 04/18/22 03/05/23 Apixaban [Eliquis] 5 mg PO BID 05/29/22 03/05/23 Spironolactone [Aldactone] 50 mg PO DAILY 06/11/22 03/05/23 busPIRone HCl [Buspar] 5 mg PO BID 06/11/22 03/05/23 Bumetanide [BUMEX] 2 mg PO DAILY 06/24/22 03/05/23 Lidocaine 5% Patch [Lidoderm 5% 1 patch TRANSDERM DAILY PRN 08/26/22 03/05/23 Patch] Fludrocortisone [Florinef] 0.1 mg PO DAILY 09/20/22 03/05/23 Midodrine [ProAmatine] 5 mg PO TID PRN 10/29/22 03/05/23 Ondansetron [Zofran] 4 mg PO Q8H PRN 11/29/22 03/05/23 Nystatin 100,000 Unit/gm Powd 1 applic TOPICAL BID PRN 01/06/23 03/05/23 [Mycostatin Powder] Sucralfate [Carafate] 1 gm PO ACHS 01/06/23 03/05/23 Ipratropium Nebulized [Atrovent 0.5 mg INHALATION QID PRN 01/12/23 03/05/23 Nebulized 0.2 MG/ML] Potassium Chloride ER [K-Dur 20] 20 meq PO DAILY 01/12/23 03/05/23 Bumetanide [Bumex] 1 mg PO HS 02/16/23 03/05/23 Famotidine 20 mg PO BID 02/16/23 03/05/23 HYDROcodone/APAP 10-325MG [Beaver 0.5 tab PO TID 02/16/23 03/05/23 10-325] Levalbuterol Nebulized [Xopenex 0.31 mg INHALATION RT-BID 02/16/23 03/05/23 Nebulized (Pediatric)] Meclizine [Antivert] 12.5 mg PO Q8H PRN 02/16/23 03/05/23 Metoprolol Succinate (ER) [Toprol 50 mg PO HS 02/16/23 03/05/23 Xl] Previous Rx's Medication Instructions Recorded Dicyclomine [Bentyl] 20 mg PO TID PRN #30 tablet 04/30/22 Zonisamide [Zonegran] 100 mg PO Q12HR 30 Days #60 cap 07/26/22 Lacosamide [Vimpat] 50 mg PO BID tab 11/05/22 Cyclobenzaprine [Flexeril] 5 mg PO TID PRN #15 tablet 03/02/23 Allergies Allergy/AdvReac Type Severity Reaction Status Date / Time Penicillins Allergy Severe Anaphylaxis Verified 03/05/23 13:48 vancomycin Allergy Severe Swelling Verified 03/05/23 13:48 in lips albuterol [From Ventolin HFA] Allergy Rapid Verified 03/05/23 13:48 Heart Rate cefepime Allergy Swelling Verified 03/05/23 13:48 clindamycin Allergy Anaphylaxis Verified 03/05/23 13:48 dexamethasone [From Decadron] Allergy Unknown Verified 03/05/23 13:48 Influenza Virus Vaccines Allergy Unknown Verified 03/05/23 13:48 latex Allergy Unknown Verified 03/05/23 13:48 morphine Allergy Unknown Verified 03/05/23 13:48 prochlorperazine Allergy Unknown Verified 03/05/23 13:48 [From Compazine] galcanezumab-gnlm AdvReac Confusion, Verified 03/05/23 13:48 [From Emgality Pen] increased blood pressure metoclopramide [From Reglan] AdvReac "felt like Verified 03/05/23 13:48 I needed to jump out of my skin" Review of Systems ROS Statement: Those systems with pertinent positive or pertinent negative responses have been documented in the HPI. ROS Other: All systems not noted in ROS Statement are negative. 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 for low K+. lupus, pancreatic mass History of Any Multi-Drug Resistant Organisms: C-DIFF Date of last positivie culture/infection: 2021 MDRO Source:: Stool Past Surgical History: Back Surgery, Breast Surgery, Cardiac Valve Replacement, Section, Cholecystectomy, Heart Catheterization, Hysterectomy, Pacemaker Additional Past Surgical History / Comment(s): pacemaker d/t bradycardia/hypotension with last one place in 2013 in [place], [place], 3 lower back surgeries, bilateral breast reduction. 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 Past Anesthesia/Blood Transfusion Reactions: No Reported Reaction Type of Cardiac Device: Permanent Pacemaker, Unknown Device Placement Date:: 2012 Past Psychological History: Anxiety Smoking Status: Never smoker Past Alcohol Use History: None Reported Past Drug Use History: None Reported - Past Family History Mother Additional Family Medical History / Comment(s): Mother at the age of 49 yrs after surgery for silicon breast implants with a leak that caused ARDS and DIC per pt Father Family Medical History: Cancer, Hyperlipidemia, Hypertension Additional Family Medical History / Comment(s): Father is a colon cancer survivor. General Exam General appearance: alert, in no apparent distress Head exam: Present: atraumatic, normocephalic, normal inspection Eye exam: Present: normal appearance, PERRL, EOMI. Absent: scleral icterus, conjunctival injection, periorbital swelling ENT exam: Present: normal exam, mucous membranes moist Neck exam: Present: normal inspection. Absent: tenderness, meningismus, lymphadenopathy Respiratory exam: Present: normal lung sounds bilaterally. Absent: respiratory distress, wheezes, rales, rhonchi, stridor Cardiovascular Exam: Present: regular rate, normal rhythm, normal heart sounds. Absent: systolic murmur, diastolic murmur, rubs, gallop, clicks GI/Abdominal exam: Present: soft, normal bowel sounds. Absent: distended, tenderness, guarding, rebound, rigid Extremities exam: Present: normal inspection, full ROM, normal capillary refill. Absent: tenderness, pedal edema, joint swelling, calf tenderness Back exam: Present: normal inspection Neurological exam: Present: alert, oriented X3, CN II-XII intact Psychiatric exam: Present: normal affect, normal mood Skin exam: Present: warm, dry, intact, normal color. Absent: rash Course Vital Signs 02/24/23 02/24/23 15:56 19:45 Temperature 98.2 F Pulse Rate 70 75 Respiratory 20 16 Rate Blood Pressure 139/58 100/70 O2 Sat by Pulse 98 97 Oximetry - Reevaluation(s) Reevaluation #1: 02/24/23 19:45 Medical records reviewed Reevaluation #2: 02/24/23 19:45 Patient's pain is improved Reevaluation #3: 02/24/23 19:45 Patient informed of results questions answered Reevaluation #4: 02/24/23 19:45 Was pt. sent in by a medical professional or institution ([facility], [facility], urgent care, hospital, or assisted...) When possible be specific @ -no Did you speak to anyone other than the patient for history (EMS, parent, family, police, friend...)? What history was obtained from this source @ -no Did you review nursing and triage notes (agree or disagree)? Why? @ -agree Are old charts reviewed (outside hosp., previous admission, EMS record, old EKG, old radiological studies, urgent care reports/EKG's, assisted records)? Report findings @ -yes Differential Diagnosis (chest pain, altered mental status, abdominal pain women, abdominal pain men, vaginal bleeding, weakness, fever, dyspnea, syncope, headache, dizziness, GI bleed, back pain, seizure, CVA, palpatations, mental health, musculoskeletal)? @ -prior EKG interpreted by me (3pts min.). @ -no X-rays interpreted by me (1pt min.). @ -no CT interpreted by me (1pt min.). @ -yes U/S interpreted by me (1pt. min.). @ -no What testing was considered but not performed or refused? (CT, X-rays, U/S, labs)? Why? @ -none What meds were considered but not given or refused? Why? @ -none Did you discuss the management of the patient with other professionals (professionals i.e. [facility], [facility], lab, RT, psych nurse, social services coordinator, clutch operator, teacher, chief administrative officer, case investigator)? Give summary @ -no Was smoking cessation discussed for >3mins.? @ -no Was critical care preformed (if so, how long)? @ -no Were there social determinants of health that impacted care today? How? (Homelessness, low income, unemployed, alcoholism, drug addiction, transport ation, low edu. Level, literacy, decrease access to med. care, fdc, rehab)? @ -none Was there de-escalation of care discussed even if they declined (Discuss DNR or withdrawal of care, Hospice)? DNR status @ -no What co-morbidities impacted this encounter? (DM, HTN, Smoking, COPD, CAD, Cancer, CVA, ARF, Chemo, Hep., AIDS, mental health diagnosis, sleep apnea, morbid obesity)? @ -none Was patient admitted / discharged? Hospital course, mention meds given and route, prescriptions, significant lab abnormalities, going to OR and other pertinent info. @ - 49 female acute on chronic back pain patient did have new onset of acute pain fall today. Patient is no findings on imaging, pain is controlled she can be discharged home Discharge Undiagnosed new problem with uncertain prognosis? @ -no Drug Therapy requiring intensive monitoring for toxicity (Heparin, Nitro, Insulin, Cardizem)? @ -no Were any procedures done? @ -no Diagnosis/symptom? @ -Chronic back pain Acute, or Chronic, or Acute on Chronic? @ -Acute Uncomplicated (without systemic symptoms) or Complicated (systemic symptoms)? @ -Complicated Side effects of treatment? @ -no Exacerbation, Progression, or Severe Exacerbation? @ -exacerbation Poses a threat to life or bodily function? How? (Chest pain, [place], [place], pneumonia, PE, COPD, DKA, ARF, appy, cholecystitis, CVA, Diverticulitis, Homicidal, Suicidal, threat to staff... and all critical care pts) @ -no Reevaluation #5: 02/24/23 19:45 Differential Headache: Migraine, tension, cluster, carbon monoxide, central venous thrombosis, pension karma temporal arteritis, acute closure glaucoma, intercranial hemorrhage, mastoiditis, sinusitis, head injury, this is not meant to be an all-inclusive list. Medical Decision Making - Medical Decision Making 49 female acute on chronic back pain patient did have new onset of acute pain fall today. Patient is no findings on imaging, pain is controlled she can be discharged home - Radiology Data Radiology results: report reviewed (CT LS-spine is negative for traumatic inju ry), image reviewed Disposition Clinical Impression: Fall, Intractable pain, Muscle spasm, Back contusion Disposition: HOME SELF-CARE Condition: Good Instructions (If sedation given, give patient instructions): Back Pain (ED) Is patient prescribed a controlled substance at d/c from ED?: No Referrals: Franklin Hassan MD [Primary Care Provider] - 1-2 days Time of Disposition: 18:35
--- NOTE | 2023-02-24 18:16 | CT ---
EXAMINATION TYPE: CT lumbar spine wo con, CT sacrum wo con CT DLP: 759.2 (accession [id number]), 722.2 (accession [id number]) mGycm, Automated exposure control for dose reduction was used. DATE OF EXAM: 02/24/2023 5:56 PM COMPARISON: None. CLINICAL INDICATION:Female, 57 years old with history of fall; PHH, pain from fall TECHNIQUE: Multiple axial images were obtained from the midportion of T11 through the sacroiliac orly nts and sacrum. Soft tissue and bone windows in coronal and sagittal planes were obtained and review ed. Contrast used: mL of , none. Oral contrast used: none. FINDINGS: Alignment: There are 5 lumbar type vertebral bodies within normal alignment. Bone: No evidence of fracture is identified. Post surgical changes to the lower spine. Hardware appe ars intact. There is multilevel degeneration changes of the spine moderate to severe worse in the low er lumbar spine. There is facet joint hypertrophy which is severe throughout L3-S5. The sacrum is vis ualized and intact. No evidence for sacral fracture. Discs: T12-L1: No spinal canal or neural foraminal stenosis is identified. L1-L2: No spinal canal or neural foraminal stenosis is identified. L2-L3: Facet joint arthropathy and disc bulging result with mild spinal canal stenosis and moderate b ilateral neural foraminal stenosis. L3-L4: Facet joint arthropathy and disc bulging result with moderate spinal canal stenosis and modera te bilateral neural foraminal stenosis. L4-L5: Facet joint arthropathy and disc bulging result with moderate spinal canal stenosis and modera te bilateral neural foraminal stenosis. L5-S1: No spinal canal or neural foraminal stenosis is identified. Other: Atrophic right kidney with left nonobstructing 3 mm this on the left. Scattered atherosclerosi s of the arteriovascular. IMPRESSION: 1. No evidence for spinal or sacrum fracture 2. Post surgical changes with hardware intact. 3. Severe degeneration changes of the lower lumbar spine. Could be due to secondary to altered mechan ics from fixation. 4. No obstructing left renal calculus. 5. Atrophic right kidney
[2023-02-24 19:47] VITALS: BP 100/70; PULSE 75; RESP 16
== END 2023-02-24 19:47 | disposition home or self-care (01) ==
LOC: EC 15:51
DX: S30.0XXA Contusion of lower back and pelvis, initial encounter (principal); M62.830 Muscle spasm of back; N18.30 Chronic kidney disease, stage 3 unspecified; F41.9 Anxiety disorder, unspecified; G40.909 Epilepsy, unspecified, not intractable, without status epilepticus; Z79.01 Long term (current) use of anticoagulants; Z79.899 Other long term (current) drug therapy; Z90.49 Acquired absence of other specified parts of digestive tract; Z88.0 Allergy status to penicillin; Z88.1 Allergy status to other antibiotic agents; Z88.5 Allergy status to narcotic agent; Z88.7 Allergy status to serum and vaccine; Z88.8 Allergy status to other drugs, medicaments and biological substances; Z91.040 Latex allergy status; Z86.711 Personal history of pulmonary embolism; W10.9XXA Fall (on) (from) unspecified stairs and steps, initial encounter; Y92.009 Unspecified place in unspecified non-institutional (private) residence as the place of occurrence of the external cause
CPT/HCPCS: 72131; 72192; 99285; 96372; J1170

== ENCOUNTER 2023-03-01 19:02 | Emergency (ER) | payer MEDICARE ==
[2023-03-01 19:26] VITALS: TEMP 98.4
[2023-03-01] MEDS ORDERED: HYDROmorphone 0.5 MG/0.5 ML SYRINGE IVP STA ×2 (19:55→22:10)
[2023-03-01] MEDS ORDERED: ACETAMINOPHEN TAB 500 MG TAB PO STA (19:56)
[2023-03-01] MEDS ORDERED: KETOROLAC 15 MG/ML 1 ML VIAL IVP STA (19:56)
[2023-03-01] MEDS ORDERED: SODIUM CHLORIDE 0.9% 1,000 ML IV STA (20:51)
[2023-03-01] MEDS ORDERED: ONDANSETRON 4 MG/2 ML VIAL IVP STA (20:51)
[2023-03-01 21:51] LABS: ALT 24 U/L (4-34); AST 23 U/L (14-36); African American GFR (CKD) 34 (>60 ml/min/1.73 sqM); Albumin 4.5 g/dL (3.5-5.0); Alkaline Phosphatase 66 U/L (38-126); Anion Gap 16 mmol/L; Blood Urea Nitrogen 50 mg/dL (7-17); Calcium 9.5 mg/dL (8.4-10.2); Carbon Dioxide 24 mmol/L (22-30); Chloride 98 mmol/L (98-107); Glucose 98 mg/dL (74-99); Magnesium 2.1 mg/dL (1.6-2.3); Non-African American GFR(CKD) 29 (>60 ml/min/1.73 sqM); Potassium 3.9 mmol/L (3.5-5.1); Sodium 138 mmol/L (137-145); Total Bilirubin 0.2 mg/dL (0.2-1.3); Total Protein 7.1 g/dL (6.3-8.2)
[2023-03-01 22:31] LABS: Partial Thromboplastin Time 27.8 sec (22.0-30.0)
[2023-03-01 22:31] LABS: Anisocytosis Slight; Basophils % (A) 0 %; Eosinophils # (A) 0.1 k/uL (0-0.7); Eosinophils % (A) 2 %; HCT 37.4 % (34.0-46.0); HGB 12.2 gm/dL (11.4-16.0); Lymphocytes # (A) 1.4 k/uL (1.0-4.8); Lymphocytes % (A) 20 %; MCH 26.7 pg (25.0-35.0); MCHC 32.6 g/dL (31.0-37.0); Monocytes # (A) 0.5 k/uL (0-1.0); Monocytes % (A) 7 %; Neutrophils # (A) 5.1 k/uL (1.3-7.7); Neutrophils % (A) 70 %; Platelet Count 297 k/uL (150-450); RBC 4.56 m/uL (3.80-5.40); RDW 16.4 % (11.5-15.5); WBC 7.2 k/uL (3.8-10.6)
--- NOTE | 2023-03-01 22:40 | ED ---
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 Patient reports cramping all over her body including her chest. Patient states this usually happens when her potassium is low. She has history of hyperkalemia on potassium supplementation for She denies shortness of breath, numbness, tingling. Patient reports multiple episodes of diarrhea daily, nonbloody for the past 3 weeks. Patient does have history of C. diff states she was recently on various antibiotics for bacteremia. She reports mild generalized abdominal pain. She feels nauseous no vomiting. No fever or chills. No urinary symptoms. - Related Data Home Medications Medication Instructions Recorded Confirmed Atorvastatin [Lipitor] 40 mg PO HS 09/24/21 03/01/23 Cholestyramine (with Sugar) 4 gm PO DAILY PRN 09/24/21 03/01/23 [Cholestyramine Packet] Gabapentin 300 mg PO QID 09/24/21 03/01/23 Sertraline [Zoloft] 200 mg PO DAILY 09/24/21 03/01/23 Ubrogepant [Ubrelvy] 100 mg PO BID PRN 09/24/21 03/01/23 rOPINIRole HCL [Requip] 2 mg PO HS 09/24/21 03/01/23 Esomeprazole Magnesium [NexIUM] 40 mg PO DAILY 03/16/22 03/01/23 Botox 200unit Injection 1 dose INJ Q84D 04/02/22 03/01/23 Diphenhydramine 50mg/Ml Vial 50 mg IM Q6H PRN 04/18/22 03/01/23 Apixaban [Eliquis] 5 mg PO BID 05/29/22 03/01/23 Spironolactone [Aldactone] 50 mg PO DAILY 06/11/22 03/01/23 busPIRone HCl [Buspar] 5 mg PO BID 06/11/22 03/01/23 Bumetanide [BUMEX] 2 mg PO DAILY 06/24/22 03/01/23 Lidocaine 5% Patch [Lidoderm 5% 1 patch TRANSDERM DAILY PRN 08/26/22 03/01/23 Patch] Fludrocortisone [Florinef] 0.1 mg PO DAILY 09/20/22 03/01/23 Midodrine [ProAmatine] 5 mg PO TID PRN 10/29/22 03/01/23 Ondansetron [Zofran] 4 mg PO Q8H PRN 11/29/22 03/01/23 Nystatin 100,000 Unit/gm Powd 1 applic TOPICAL BID PRN 01/06/23 03/01/23 [Mycostatin Powder] Nystatin 100,000 Unit/ml Susp 500,000 unit PO QID PRN 01/06/23 03/01/23 [Mycostatin Oral Susp] Sucralfate [Carafate] 1 gm PO ACHS 01/06/23 03/01/23 Ipratropium Nebulized [Atrovent 0.5 mg INHALATION QID PRN 01/12/23 03/01/23 Nebulized 0.2 MG/ML] Potassium Chloride ER [K-Dur 20] 20 meq PO DAILY 01/12/23 03/01/23 Bumetanide [Bumex] 1 mg PO HS 02/16/23 03/01/23 Famotidine 20 mg PO BID 02/16/23 03/01/23 HYDROcodone/APAP 10-325MG [[place] 0.5 tab PO TID 02/16/23 03/01/23 10-325] Levalbuterol Nebulized [Xopenex 0.31 mg INHALATION RT-TID PRN 02/16/23 03/01/23 Nebulized (Pediatric)] Meclizine [Antivert] 12.5 mg PO Q8H PRN 02/16/23 03/01/23 Metoprolol Succinate (ER) [Toprol 50 mg PO HS 02/16/23 03/01/23 Xl] Previous Rx's Medication Instructions Recorded Dicyclomine [Bentyl] 20 mg PO TID PRN #30 tablet 04/30/22 Zonisamide [Zonegran] 100 mg PO Q12HR 30 Days #60 cap 07/26/22 Lacosamide [Vimpat] 50 mg PO BID tab 11/05/22 Cyclobenzaprine [Flexeril] 5 mg PO TID PRN #15 tablet 03/02/23 Allergies Allergy/AdvReac Type Severity Reaction Status Date / Time Penicillins Allergy Severe Anaphylaxis Verified 03/01/23 19:07 vancomycin Allergy Severe Swelling Verified 03/01/23 19:07 in lips albuterol [From Ventolin HFA] Allergy Rapid Verified 03/01/23 19:07 Heart Rate cefepime Allergy Swelling Verified 03/01/23 19:07 clindamycin Allergy Anaphylaxis Verified 03/01/23 19:07 dexamethasone [From Decadron] Allergy Unknown Verified 03/01/23 19:07 Influenza Virus Vaccines Allergy Unknown Verified 03/01/23 19:07 latex Allergy Unknown Verified 03/01/23 19:07 morphine Allergy Unknown Verified 03/01/23 19:07 prochlorperazine Allergy Unknown Verified 03/01/23 19:07 [From Compazine] [id number] AdvReac Confusion, Verified 03/01/23 19:07 [From Emgality Pen] increased blood pressure metoclopramide [From Reglan] AdvReac "felt like Verified 03/01/23 19:07 I needed to jump out of my skin" Review of Systems ROS Statement: Those systems with pertinent positive or pertinent negative responses have been documented in the HPI. ROS Other: All systems not noted in ROS Statement are negative. 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 for low K+. lupus, pancreatic mass History of Any Multi-Drug Resistant Organisms: C-DIFF Date of last positivie culture/infection: 2021 MDRO Source:: Stool Past Surgical History: Back Surgery, Breast Surgery, Cardiac Valve Replacement, Section, Cholecystectomy, Heart Catheterization, Hysterectomy, Pacemaker Additional Past Surgical History / Comment(s): pacemaker d/t bradycardia/hypotension with last one place in 2013 in [place], [place], 3 lower back surgeries, bilateral breast reduction. 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 Past Anesthesia/Blood Transfusion Reactions: No Reported Reaction Type of Cardiac Device: Permanent Pacemaker, Unknown Device Placement Date:: 2012 Past Psychological History: Anxiety Smoking Status: Never smoker Past Alcohol Use History: None Reported Past Drug Use History: None Reported - Past Family History Mother Additional Family Medical History / Comment(s): Mother at the age of 49 yrs after surgery for silicon breast implants with a leak that caused ARDS and DIC per pt Father Family Medical History: Cancer, Hyperlipidemia, Hypertension Additional Family Medical History / Comment(s): Father is a colon cancer survivor. General Exam Limitations: no limitations General appearance: alert Eye exam: Present: normal appearance, PERRL, EOMI. Absent: scleral icterus, conjunctival injection, periorbital swelling Respiratory exam: Present: normal lung sounds bilaterally. Absent: respiratory distress, wheezes, rales, rhonchi, stridor Cardiovascular Exam: Present: regular rate, normal rhythm, normal heart sounds. Absent: systolic murmur, diastolic murmur, rubs, gallop, clicks, JVD, S3, S4 GI/Abdominal exam: Present: soft, tenderness (generalized), normal bowel sounds. Absent: distended, guarding, rebound, rigid Neurological exam: Present: alert Psychiatric exam: Present: normal affect, anxious. Absent: normal mood Skin exam: Present: warm, dry, intact, normal color. Absent: rash Course Vital Signs 03/01/23 03/01/23 03/02/23 19:04 21:50 00:58 Temperature 98.4 F Pulse Rate 67 70 70 Respiratory 24 20 20 Rate Blood Pressure 124/62 110/75 122/69 O2 Sat by Pulse 97 96 94 L Oximetry Medical Decision Making - Medical Decision Making EKG taken 20:57, interpreted by myself Ventricular rate 70, TX interval 194, QRS duration 104, QTc 446 Was pt. sent in by a medical professional or institution (, PA, CARDING SUPERVISOR, urgent care, hospital, or fdc...) When possible be specific @ -No Did you speak to anyone other than the patient for history (EMS, parent, family, police, friend...)? What history was obtained from this source @ -No Did you review nursing and triage notes (agree or disagree)? Why? @ -I reviewed and agree with nursing and triage notes Were old charts reviewed (outside hosp., previous admission, EMS record, old EKG, old radiological studies, urgent care reports/EKG's, fdc records)? Report findings @ -No old charts were reviewed Differential Diagnosis (chest pain, altered mental status, abdominal pain women, abdominal pain men, vaginal bleeding, weakness, fever, dyspnea, syncope, headache, dizziness, GI bleed, back pain, seizure, CVA, palpatations, mental health)? @ -Differential Chest Pain: Stable Angina, Unstable Angina, STEMI, NSTEMI Aortic Dissection, Pneumothorax, Musculoskeletal, Esophageal Spasm GERD, Cholecystitis, Pancreatitis, Zoster, this is not meant to be an all-inclusive list. EKG interpreted by me (3pts min.). @ -As above X-rays interpreted by me (1pt min.). @ no acute cardiopulmonary process CT interpreted by me (1pt min.). @ -No acute findings to explain pain U/S interpreted by me (1pt. min.). @ -None done What testing was considered but not performed or refused? (CT, X-rays, U/S, labs)? Why? @ -None What meds were considered but not given or refused? Why? @ -None Did you discuss the management of the patient with other professionals ( professionals i.e. , PA, CARDING SUPERVISOR, lab, RT, psych nurse, social media campaign manager, manager storage, teacher, combat information center officer, registered nurse hh case manager)? Give summary @ -No Was smoking cessation discussed for >3mins.? @ -No Was critical care preformed (if so, how long)? @ -No Were there social determinants of health that impacted care today? How? (Homelessness, low income, unemployed, alcoholism, drug addiction, transpo rtation, low edu. Level, literacy, decrease access to med. care, prison, rehab)? @ -No Was there de-escalation of care discussed even if they declined (Discuss DNR or withdrawal of care, Hospice)? DNR status @ -No What co-morbidities impacted this encounter? (DM, HTN, Smoking, COPD, CAD, Cancer, CVA, ARF, Chemo, Hep., AIDS, mental health diagnosis, sleep apnea, morbid obesity)? @ -None Was patient admitted / discharged? Hospital course, mention meds given and route, prescriptions, significant lab abnormalities, going to OR and other pertinent info. @ -57-year-old presenting for muscle cramping, chest pain, diarrhea. Patient in no apparent distress. Patient has several ALLERGIES she was given Dilaudid with resolution of chest pain but still had generalized muscle cramping. Norflex given. Laboratory studies are unremarkable no leukocytosis or electrolyte abnormalities Troponin within normal limits.CT of the abdomen and pelvis interpreted by myself shows no acute findings to explain pain Patient unable to give stool sample. Patient afebrile non toxic appearing. Soft nontender abdomen on reevaluation. Chest pain is atypical patient currently has no chest pain and in stable medical condition for discharge. Patient given prescription for stool studies and flexeril she is to follow up with PCP Undiagnosed new problem with uncertain prognosis? @ -No Drug Therapy requiring intensive monitoring for toxicity (Heparin, Nitro, Insulin, Cardizem)? @ -No Were any procedures done? @ -No Diagnosis/symptom? @ -muscle cramping, atypical chest pain, diarrhea, abdominal pain Acute, or Chronic, or Acute on Chronic? @ -acute Uncomplicated (without systemic symptoms) or Complicated (systemic symptoms)? @ -uncomplicated Side effects of treatment? @ -No Exacerbation, Progression, or Severe Exacerbation? @ -No Poses a threat to life or bodily function? How? (Chest pain, [place], [place], pneumonia, PE, COPD, DKA, ARF, appy, cholecystitis, CVA, Diverticulitis, Homicidal, Suicidal, threat to staff... and all critical care pts) @ -[No] Dr. Russell is my attending - Lab Data Result diagrams: 03/01/23 21:10 03/01/23 21:10 Lab Results 03/01/23 03/01/23 03/01/23 Range/Units 21:10 21:10 21:10 WBC 7.2 (3.8-10.6) k/uL RBC 4.56 (3.80-5.40) m/uL Hgb 12.2 (11.4-16.0) gm/dL Hct 37.4 (34.0-46.0) % MCV 82.0 (80.0-100.0) fL MCH 26.7 (25.0-35.0) pg MCHC 32.6 (31.0-37.0) g/dL RDW 16.4 H (11.5-15.5) % Plt Count 297 (150-450) k/uL MPV 9.0 Neutrophils % 70 % Lymphocytes % 20 % Monocytes % 7 % Eosinophils % 2 % Basophils % 0 % Neutrophils # 5.1 (1.3-7.7) k/uL Lymphocytes # 1.4 (1.0-4.8) k/uL Monocytes # 0.5 (0-1.0) k/uL Eosinophils # 0.1 (0-0.7) k/uL Basophils # 0.0 (0-0.2) k/uL Anisocytosis Slight PT (10.0-12.5) sec INR (<1.2) APTT (22.0-30.0) sec Sodium 138 (137-145) mmol/L Potassium 3.9 (3.5-5.1) mmol/L Chloride 98 (98-107) mmol/L Carbon Dioxide 24 (22-30) mmol/L Anion Gap 16 mmol/L BUN 50 H (7-17) mg/dL Creatinine 1.87 H (0.52-1.04) mg/dL Est GFR (CKD-EPI)AfAm 34 (>60 ml/min/1.73 sqM) Est GFR (CKD-EPI)NonAf 29 (>60 ml/min/1.73 sqM) Glucose 98 (74-99) mg/dL Plasma Lactic Acid Raffi (0.7-2.0) mmol/L Calcium 9.5 (8.4-10.2) mg/dL Magnesium 2.1 (1.6-2.3) mg/dL Total Bilirubin 0.2 (0.2-1.3) mg/dL AST 23 (14-36) U/L ALT 24 (4-34) U/L Alkaline Phosphatase 66 (38-126) U/L Troponin I <0.012 (0.000-0.034) ng/mL Total Protein 7.1 (6.3-8.2) g/dL Albumin 4.5 (3.5-5.0) g/dL 03/01/23 03/01/23 Range/Units 21:46 21:46 WBC (3.8-10.6) k/uL RBC (3.80-5.40) m/uL Hgb (11.4-16.0) gm/dL Hct (34.0-46.0) % MCV (80.0-100.0) fL MCH (25.0-35.0) pg MCHC (31.0-37.0) g/dL RDW (11.5-15.5) % Plt Count (150-450) k/uL MPV Neutrophils % % Lymphocytes % % Monocytes % % Eosinophils % % Basophils % % Neutrophils # (1.3-7.7) k/uL Lymphocytes # (1.0-4.8) k/uL Monocytes # (0-1.0) k/uL Eosinophils # (0-0.7) k/uL Basophils # (0-0.2) k/uL Anisocytosis PT 11.0 (10.0-12.5) sec INR 1.0 (<1.2) APTT 27.8 (22.0-30.0) sec Sodium (137-145) mmol/L Potassium (3.5-5.1) mmol/L Chloride (98-107) mmol/L Carbon Dioxide (22-30) mmol/L Anion Gap mmol/L BUN (7-17) mg/dL Creatinine (0.52-1.04) mg/dL Est GFR (CKD-EPI)AfAm (>60 ml/min/1.73 sqM) Est GFR (CKD-EPI)NonAf (>60 ml/min/1.73 sqM) Glucose (74-99) mg/dL Plasma Lactic Acid Raffi 0.7 (0.7-2.0) mmol/L Calcium (8.4-10.2) mg/dL Magnesium (1.6-2.3) mg/dL Total Bilirubin (0.2-1.3) mg/dL AST (14-36) U/L ALT (4-34) U/L Alkaline Phosphatase (38-126) U/L Troponin I (0.000-0.034) ng/mL Total Protein (6.3-8.2) g/dL Albumin (3.5-5.0) g/dL Disposition Clinical Impression: Muscle cramping, Atypical chest pain, Abdominal pain, Diarrhea Disposition: HOME SELF-CARE Condition: Good Instructions (If sedation given, give patient instructions): Muscle Cramp (ED) Additional Instructions: take home prescription of [place] for pain. Use muscle relaxers as needed. I do not recommend taking these medications together as a can cause drowsiness. Do not drink alcohol or operate machinery while taking Flexeril. Follow-up with primary care provider in one to 2 days. Return to the emergency department if you experience new, concerning, or worsening symptoms. Prescriptions: Cyclobenzaprine [Flexeril] 5 mg PO TID PRN #15 tablet PRN Reason: Muscle Spasm Is patient prescribed a controlled substance at d/c from ED?: No Referrals: Franklin Hassan MD [Primary Care Provider] - 1-2 days
--- NOTE | 2023-03-01 23:10 | XR ---
EXAM: XR Chest, 2 Views CLINICAL HISTORY: ITS.REASON XR Reason: Chest TECHNIQUE: Frontal and lateral views of the chest. COMPARISON: No relevant prior studies available. FINDINGS: Lungs: Unremarkable. No consolidation. Pleural space: Unremarkable. No pneumothorax. Heart: Cardiomegaly. Prosthetic aortic valve. Mediastinum: Unremarkable. Bones/joints: Unremarkable. Tubes, lines and devices: Pacemaker lead. Cholecystectomy clips. IMPRESSION: No acute findings in the chest.
[2023-03-01] MEDS ORDERED: ORPHENADRINE 30 MG/ML 2 ML VIAL IVP STA (23:22)
[2023-03-01 23:23] VITALS: PULSE 70; RESP 20
--- NOTE | 2023-03-01 23:53 | CT ---
EXAM: CT Abdomen and Pelvis Without Intravenous Contrast CLINICAL HISTORY: ITS.REASON CT Reason: abd pain diarrhea TECHNIQUE: Axial computed tomography images of the abdomen and pelvis without intravenous contrast. CTDI is 11.19 mGy and DLP is 625.6 mGy-cm. This CT exam was performed using one or more of the following dose reduction techniques: automated exposure control, adjustment of the mA and/or kV according to patient size, and/or use of iterative reconstruction technique. COMPARISON: No relevant prior studies available. FINDINGS: Lung bases: Unremarkable. No mass. No consolidation. ABDOMEN: Liver: Unremarkable. Gallbladder and bile ducts: Cholecystectomy. No ductal dilation. Pancreas: Unremarkable. No ductal dilation. Spleen: Unremarkable. No splenomegaly. Adrenals: Unremarkable. No mass. Kidneys and ureters: Atrophy of the RIGHT kidney. Nonobstructing 2 mm LEFT midpole renal stone. Stomach and bowel: Diverticulosis, without acute diverticulitis. No small bowel obstruction. No free intraperitoneal air. PELVIS: Appendix: No findings to suggest acute appendicitis. Bladder: Unremarkable. No stones. Reproductive: Hysterectomy. ABDOMEN and PELVIS: Intraperitoneal space: Unremarkable. No free air. No significant fluid collection. Bones/joints: Posterior lumbar fusion at L5-S1. Degenerative changes of the spine. No acute fracture. No dislocation. Soft tissues: Unremarkable. Vasculature: Atherosclerotic changes of the aorta. No abdominal aortic aneurysm. Lymph nodes: Unremarkable. No enlarged lymph nodes. IMPRESSION: 1. Cholecystectomy. 2. Atrophy of the RIGHT kidney. 3. Nonobstructing 2 mm LEFT midpole renal stone. 4. Hysterectomy. 5. Diverticulosis, without acute diverticulitis. No small bowel obstruction. No free intraperitoneal air.
[2023-03-02 01:00] VITALS: BP 122/69
== END 2023-03-02 01:00 | disposition home or self-care (01) ==
LOC: EC 19:02
DX: R07.89 Other chest pain (principal); R19.7 Diarrhea, unspecified; R25.2 Cramp and spasm; R10.84 Generalized abdominal pain; N18.30 Chronic kidney disease, stage 3 unspecified; F41.9 Anxiety disorder, unspecified; Z79.01 Long term (current) use of anticoagulants; Z79.899 Other long term (current) drug therapy; Z88.0 Allergy status to penicillin; Z88.1 Allergy status to other antibiotic agents; Z88.5 Allergy status to narcotic agent; Z88.7 Allergy status to serum and vaccine; Z88.8 Allergy status to other drugs, medicaments and biological substances; Z91.040 Latex allergy status; Z90.49 Acquired absence of other specified parts of digestive tract; Z86.711 Personal history of pulmonary embolism
CPT/HCPCS: 36415; 93005; 80053; 83605; 83735; 84484; 85025; 85610; 85730; 71046; 74176; 99285; 96374; 96375 ×2; 96361; J2360; J2405; J1170

== ENCOUNTER → 2023-03-03 | Outpatient (CLI) | payer BC, MEDICARE ==
[2023-03-04 02:56] LABS: Alpha Fetoprotein, Tumor Mkr 4.9 ng/mL (0.00-7.90); Cancer Antigen 19-9 42.8 U/mL (0.0-34.9)
== END | disposition home or self-care (01) ==
LOC: LABWHC1 15:55
PROVIDERS: ATTEND Family Medicine
DX: D68.62 Lupus anticoagulant syndrome (principal)
CPT/HCPCS: 36415; 82105; 82272; 83630; 86300; 86301; 87324

== ENCOUNTER 2023-03-04 20:56 | Inpatient (IN) | payer BC, MEDICARE ==
[2023-03-04] MEDS ORDERED: ONDANSETRON 4 MG/2 ML VIAL IVP STA (23:23)
[2023-03-04] MEDS ORDERED: HYDROmorphone 1 MG/ML 1 ML SYRINGE IVP STA (23:23)
[2023-03-05 01:27] LABS: Anisocytosis Slight; Basophils % (A) 0 %; Eosinophils # (A) 0.1 k/uL (0-0.7); Eosinophils % (A) 2 %; HCT 39.3 % (34.0-46.0); HGB 12.7 gm/dL (11.4-16.0); Lymphocytes # (A) 1.6 k/uL (1.0-4.8); Lymphocytes % (A) 21 %; MCH 26.4 pg (25.0-35.0); MCHC 32.2 g/dL (31.0-37.0); MCV 82.1 fL (80.0-100.0); Monocytes # (A) 0.4 k/uL (0-1.0); Monocytes % (A) 5 %; Neutrophils # (A) 5.6 k/uL (1.3-7.7); Neutrophils % (A) 70 %; Platelet Count 313 k/uL (150-450); RBC 4.79 m/uL (3.80-5.40); RDW 16.7 % (11.5-15.5)
[2023-03-05 01:34] LABS: ALT 27 U/L (4-34); AST 24 U/L (14-36); African American GFR (CKD) 51 (>60 ml/min/1.73 sqM); Albumin 4.6 g/dL (3.5-5.0); Alkaline Phosphatase 72 U/L (38-126); Anion Gap 13 mmol/L; Blood Urea Nitrogen 24 mg/dL (7-17); Calcium 10.2 mg/dL (8.4-10.2); Carbon Dioxide 24 mmol/L (22-30); Chloride 101 mmol/L (98-107); Glucose 90 mg/dL (74-99); Non-African American GFR(CKD) 44 (>60 ml/min/1.73 sqM); Potassium 3.6 mmol/L (3.5-5.1); Sodium 138 mmol/L (137-145); Total Bilirubin 0.5 mg/dL (0.2-1.3); Total Protein 7.3 g/dL (6.3-8.2)
[2023-03-05] MEDS ORDERED: ONDANSETRON 4 MG/2 ML VIAL IVP PRN (03:38)
[2023-03-05] MEDS: HYDROmorphone 1 MG/ML 1 ML SYRINGE IVP PRN ×5 (03:50→20:33)
[2023-03-05 03:54] LABS: Appearance,Urine Cloudy (Clear); Bilirubin,Urine Negative (Negative); Blood,Urine Negative (Negative); Color,Urine Light Yellow; Glucose,Urine (UA) Negative (Negative); Hyaline Casts,Urine 1 /lpf (0-2); Ketones,Urine Negative (Negative); Leukocyte Esterase,Urine Small (Negative); Mucus,Urine Rare /hpf; Nitrite,Urine Negative (Negative); Protein,Urine Negative (Negative); RBC,Urine 1 /hpf (0-5); Squamous Epithelial Cell,Urine 1 /hpf (0-4); Urobilinogen,Urine <2.0 mg/dL (<2.0); WBC,Urine 6 /hpf (0-5)
[2023-03-05] MEDS ORDERED: NALOXONE 0.4 MG/ML 1 ML VIAL IV PRN (03:54)
--- NOTE | 2023-03-05 04:06 | ED ---
Abdominal Pain HPI - General Chief Complaint: Abdominal Pain Stated Complaint: C-diff Time Seen by Provider: 03/04/23 22:54 Source: patient Mode of arrival: wheelchair Limitations: no limitations - History of Present Illness Initial Comments: 57 year old Female presenting to the ED after being told she had cultures positive for C. diff. Records reviewed showing multiple visits to the ED due to intractable abdominal pain and nausea. Patient did have a prior CT that did show pancreatic mass. While in the room patient received report on my chart showing elevated cancer labs. Currently, notes abdominal pain and nausea. Denies chest pain or shortness of breath. - Related Data Home Medications Medication Instructions Recorded Confirmed Atorvastatin [Lipitor] 40 mg PO HS 09/24/21 03/01/23 Cholestyramine (with Sugar) 4 gm PO DAILY PRN 09/24/21 03/01/23 [Cholestyramine Packet] Gabapentin 300 mg PO QID 09/24/21 03/01/23 Sertraline [Zoloft] 200 mg PO DAILY 09/24/21 03/01/23 Ubrogepant [Ubrelvy] 100 mg PO BID PRN 09/24/21 03/01/23 rOPINIRole HCL [Requip] 2 mg PO HS 09/24/21 03/01/23 Esomeprazole Magnesium [NexIUM] 40 mg PO DAILY 03/16/22 03/01/23 Botox 200unit Injection 1 dose INJ Q84D 04/02/22 03/01/23 Diphenhydramine 50mg/Ml Vial 50 mg IM Q6H PRN 04/18/22 03/01/23 Apixaban [Eliquis] 5 mg PO BID 05/29/22 03/01/23 Spironolactone [Aldactone] 50 mg PO DAILY 06/11/22 03/01/23 busPIRone HCl [Buspar] 5 mg PO BID 06/11/22 03/01/23 Bumetanide [BUMEX] 2 mg PO DAILY 06/24/22 03/01/23 Lidocaine 5% Patch [Lidoderm 5% 1 patch TRANSDERM DAILY PRN 08/26/22 03/01/23 Patch] Fludrocortisone [Florinef] 0.1 mg PO DAILY 09/20/22 03/01/23 Midodrine [ProAmatine] 5 mg PO TID PRN 10/29/22 03/01/23 Ondansetron [Zofran] 4 mg PO Q8H PRN 11/29/22 03/01/23 Nystatin 100,000 Unit/gm Powd 1 applic TOPICAL BID PRN 01/06/23 03/01/23 [Mycostatin Powder] Nystatin 100,000 Unit/ml Susp 500,000 unit PO QID PRN 01/06/23 03/01/23 [Mycostatin Oral Susp] Sucralfate [Carafate] 1 gm PO ACHS 01/06/23 03/01/23 Ipratropium Nebulized [Atrovent 0.5 mg INHALATION QID PRN 01/12/23 03/01/23 Nebulized 0.2 MG/ML] Potassium Chloride ER [K-Dur 20] 20 meq PO DAILY 01/12/23 03/01/23 Bumetanide [Bumex] 1 mg PO HS 02/16/23 03/01/23 Famotidine 20 mg PO BID 02/16/23 03/01/23 HYDROcodone/APAP 10-325MG [[place] 0.5 tab PO TID 02/16/23 03/01/23 10-325] Levalbuterol Nebulized [Xopenex 0.31 mg INHALATION RT-TID PRN 02/16/23 03/01/23 Nebulized (Pediatric)] Meclizine [Antivert] 12.5 mg PO Q8H PRN 02/16/23 03/01/23 Metoprolol Succinate (ER) [Toprol 50 mg PO HS 02/16/23 03/01/23 Xl] Previous Rx's Medication Instructions Recorded Dicyclomine [Bentyl] 20 mg PO TID PRN #30 tablet 04/30/22 Zonisamide [Zonegran] 100 mg PO Q12HR 30 Days #60 cap 07/26/22 Lacosamide [Vimpat] 50 mg PO BID tab 11/05/22 Cyclobenzaprine [Flexeril] 5 mg PO TID PRN #15 tablet 03/02/23 Allergies Allergy/AdvReac Type Severity Reaction Status Date / Time Penicillins Allergy Severe Anaphylaxis Verified 03/01/23 19:07 vancomycin Allergy Severe Swelling Verified 03/01/23 19:07 in lips albuterol [From Ventolin HFA] Allergy Rapid Verified 03/01/23 19:07 Heart Rate cefepime Allergy Swelling Verified 03/01/23 19:07 clindamycin Allergy Anaphylaxis Verified 03/01/23 19:07 dexamethasone [From Decadron] Allergy Unknown Verified 03/01/23 19:07 Influenza Virus Vaccines Allergy Unknown Verified 03/01/23 19:07 latex Allergy Unknown Verified 03/01/23 19:07 morphine Allergy Unknown Verified 03/01/23 19:07 prochlorperazine Allergy Unknown Verified 03/01/23 19:07 [From Compazine] [id number] AdvReac Confusion, Verified 03/01/23 19:07 [From Emgality Pen] increased blood pressure metoclopramide [From Reglan] AdvReac "felt like Verified 03/01/23 19:07 I needed to jump out of my skin" Review of Systems ROS Statement: Those systems with pertinent positive or pertinent negative responses have been documented in the HPI. ROS Other: All systems not noted in ROS Statement are negative. 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 for low K+. lupus, pancreatic mass History of Any Multi-Drug Resistant Organisms: C-DIFF Date of last positivie culture/infection: 03/02/23 MDRO Source:: Stool Past Surgical History: Back Surgery, Breast Surgery, Cardiac Valve Replacement, Section, Cholecystectomy, Heart Catheterization, Hysterectomy, Pacemaker Additional Past Surgical History / Comment(s): pacemaker d/t bradycardia/hypotension with last one place in 2013 in [place], [place], 3 lower back surgeries, bilateral breast reduction. 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 Past Anesthesia/Blood Transfusion Reactions: No Reported Reaction Type of Cardiac Device: Permanent Pacemaker, Unknown Device Placement Date:: 2012 Past Psychological History: Anxiety Smoking Status: Never smoker Past Alcohol Use History: None Reported Past Drug Use History: None Reported - Past Family History Mother Additional Family Medical History / Comment(s): Mother at the age of 49 yrs after surgery for silicon breast implants with a leak that caused ARDS and DIC per pt Father Family Medical History: Cancer, Hyperlipidemia, Hypertension Additional Family Medical History / Comment(s): Father is a colon cancer survivor. General Exam Limitations: no limitations General appearance: alert, in no apparent distress Neck exam: Present: normal inspection Respiratory exam: Present: normal lung sounds bilaterally GI/Abdominal exam: Present: soft (Tenderness to palpation diffusely no rebound guarding or rigidity.), normal bowel sounds Neurological exam: Present: alert, oriented X3 Skin exam: Present: warm, dry Course Vital Signs 03/04/23 03/05/23 21:24 01:26 Temperature 98.9 F 99.3 F Pulse Rate 57 L 78 Respiratory 18 17 Rate Blood Pressure 117/78 121/75 O2 Sat by Pulse 99 100 Oximetry Medical Decision Making - Medical Decision Making Was pt. sent in by a medical professional or institution (, PA, [employer], urgent care, hospital, or prison...) When possible be specific @ -no Did you speak to anyone other than the patient for history (EMS, parent, family, police, friend...)? What history was obtained from this source @ -no Did you review nursing and triage notes (agree or disagree)? Why? @ -I reviewed and agree with nursing and triage notes Were old charts reviewed (outside hosp., previous admission, EMS record, old EKG, old radiological studies, urgent care reports/EKG's, prison records)? Report findings @ -No old charts were reviewed Differential Diagnosis (chest pain, altered mental status, abdominal pain women, abdominal pain men, vaginal bleeding, weakness, fever, dyspnea, syncope, headache, dizziness, GI bleed, back pain, seizure, CVA, palpatations, mental health, musculoskeletal)? @ -Differential Abdominal Pain Women: Appendicitis, Cholecystitis, diverticulosis, ischemic bowel, pancreatitis, hepatitis, UTI, gastroenteritis, AAA, incarcerated hernia, bowel obstruction, constipation, inflammatory bowel, hepatitis, peptic ulcer disease, splenic in farction, perforated viscus, vulvitis, ovarian torsion, PID, kidney stone, placenta abruption, this is not meant to be an all-inclusive list EKG interpreted by me (3pts min.). @ -none X-rays interpreted by me (1pt min.). @ -None done CT interpreted by me (1pt min.). @ -None done U/S interpreted by me (1pt. min.). @ -None done What testing was considered but not performed or refused? (CT, X-rays, U/S, labs)? Why? @ -None What meds were considered but not given or refused? Why? @ -None Did you discuss the management of the patient with other professionals (professionals i.e. DrMaria Teresa, PA, [employer], lab, RT, psych nurse, social media executive, transit clerk, teacher, development officer, behavioral health case manager)? Give summary @ -Spoke to Dr. Cuevas, who accepts admission and requests additional consult to oncology. Was smoking cessation discussed for >3mins.? @ -No Was critical care preformed (if so, how long)? @ -No Were there social determinants of health that impacted care today? How? (Homelessness, low income, unemployed, alcoholism, drug addiction, transportation, low edu. Level, literacy, decrease access to med. care, shelter, rehab)? @ -No Was there de-escalation of care discussed even if they declined (Discuss DNR or withdrawal of care, Hospice)? DNR status @ -No What co-morbidities impacted this encounter? (DM, HTN, Smoking, COPD, CAD, Cancer, CVA, ARF, Chemo, Hep., AIDS, mental health diagnosis, sleep apnea, morbid obesity)? @ -None Was patient admitted / discharged? Hospital course, mention meds given and route, prescriptions, significant lab abnormalities, going to OR and other pertinent info. @ -admission 57-year-old female presenting due to recent culture positive for C. diff. Patient over the last few months has had intractable nausea, vomiting, abdominal pain. Recent CT did show a mass on her pancreas and patient had tumor markers drawn which are found to be elevated. Patient will be admitted to obvious to pain control with consults to infectious disease due to extensive ALLERGIES to antibiotics with positive C. diff culture oncology. Spoke to pharmacy who recommends starting Flagyl at this time . Patient did note that she is able to tolerate vancomycin however only with IV Benadryl. At this time patient is having difficulties tolerating oral intake Undiagnosed new problem with uncertain prognosis? @ -No Drug Therapy requiring intensive monitoring for toxicity (Heparin, Nitro, Insulin, Cardizem)? @ -No Were any procedures done? @ -No Diagnosis/symptom? @ -C. diff, intractable abdominal pain and nausea, elevated tumor markers with pancreas mass Acute, or Chronic, or Acute on Chronic? @ -Acute Uncomplicated (without systemic symptoms) or Complicated (systemic symptoms)? @ -Uncomplicated Side effects of treatment? @ -No Exacerbation, Progression, or Severe Exacerbation? @ -No Poses a threat to life or bodily function? How? (Chest pain, [place], [place], pneumonia, PE, COPD, DKA, ARF, appy, cholecystitis, CVA, Diverticulitis, Homicidal, Suicidal, threat to staff... and all critical care pts) @ -No - Lab Data Result diagrams: 03/05/23 01:12 03/05/23 01:12 Lab Results 03/05/23 03/05/23 03/05/23 Range/Units 01:12 01:12 03:00 WBC 8.0 (3.8-10.6) k/uL RBC 4.79 (3.80-5.40) m/uL Hgb 12.7 (11.4-16.0) gm/dL Hct 39.3 (34.0-46.0) % MCV 82.1 (80.0-100.0) fL MCH 26.4 (25.0-35.0) pg MCHC 32.2 (31.0-37.0) g/dL RDW 16.7 H (11.5-15.5) % Plt Count 313 (150-450) k/uL MPV 9.0 Neutrophils % 70 % Lymphocytes % 21 % Monocytes % 5 % Eosinophils % 2 % Basophils % 0 % Neutrophils # 5.6 (1.3-7.7) k/uL Lymphocytes # 1.6 (1.0-4.8) k/uL Monocytes # 0.4 (0-1.0) k/uL Eosinophils # 0.1 (0-0.7) k/uL Basophils # 0.0 (0-0.2) k/uL Anisocytosis Slight Sodium 138 (137-145) mmol/L Potassium 3.6 (3.5-5.1) mmol/L Chloride 101 (98-107) mmol/L Carbon Dioxide 24 (22-30) mmol/L Anion Gap 13 mmol/L BUN 24 H (7-17) mg/dL Creatinine 1.33 H (0.52-1.04) mg/dL Est GFR (CKD-EPI)AfAm 51 (>60 ml/min/1.73 sqM) Est GFR (CKD-EPI)NonAf 44 (>60 ml/min/1.73 sqM) Glucose 90 (74-99) mg/dL Calcium 10.2 (8.4-10.2) mg/dL Total Bilirubin 0.5 (0.2-1.3) mg/dL AST 24 (14-36) U/L ALT 27 (4-34) U/L Alkaline Phosphatase 72 (38-126) U/L Total Protein 7.3 (6.3-8.2) g/dL Albumin 4.6 (3.5-5.0) g/dL Urine Color Light Yellow Urine Appearance Cloudy H (Clear) Urine pH 6.0 (5.0-8.0) Ur Specific [place] 1.020 (1.001-1.035) Urine Protein Negative (Negative) Urine Glucose (UA) Negative (Negative) Urine Ketones Negative (Negative) Urine Blood Negative (Negative) Urine Nitrite Negative (Negative) Urine Bilirubin Negative (Negative) Urine Urobilinogen <2.0 (<2.0) mg/dL Ur Leukocyte Esterase Small H (Negative) Urine RBC 1 (0-5) /hpf Urine WBC 6 H (0-5) /hpf Ur Squamous Epith Cells 1 (0-4) /hpf Hyaline Casts 1 (0-2) /lpf Urine Mucus Rare H (None) /hpf Disposition Clinical Impression: Clostridium difficile infection, Pancreatic mass Disposition: ADMITTED IP TO THIS HOSP Referrals: Franklin Hassan MD [Primary Care Provider] - 1-2 days Time of Disposition: 04:11
[2023-03-05] MEDS: metroNIDAZOLE-NS PMX 500 MG in SALINE 1 100ML.BAG IVPB SCH ×2 (05:10→06:18)
[2023-03-05] MEDS: SODIUM CHLORIDE 0.9% 1,000 ML IV SCH ×2 (06:13→17:51)
[2023-03-05] MEDS ORDERED: diphenhydrAMINE 50 MG/ML 1 ML VIAL IVP STA (06:27)
[2023-03-05] MEDS ORDERED: metroNIDAZOLE-NS PMX 500 MG in SALINE 1 100ML.BAG IVPB SCH (07:00)
[2023-03-05] MEDS: FIDAXOMICIN 200 MG TABLET PO SCH ×2 (12:20→22:05)
[2023-03-05 12:41] VITALS: BMI 27.6
--- NOTE | 2023-03-05 14:17 | P.CONS ---
History of Present Illness - Reason for Consult Consult date: 03/05/23 Abnormal imaging of pancreas on CT - History of Present Illness The patient is a 57-year-old white female, with a very complicated past medical and surgical history. 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 Most recently this was in early 01/22. She has also had admissions since with complains of intractable lower abdominal pain, nausea and vomiting. She has had multiple CT scans of the abdomen and pelvis, done without contrast. Scan from 02/16/23 mentioned a hypodensity in the uncinate process of the pancreas, with further, more definite imaging recommended. Noncontrast CT scans from 03/01/23, as well as from early 01/22 showed no abnormality the pancreas. Patient was sent in this time, she was having diarrhea and stool studies as an outpatient were positive for C. diff. The patient had tumor markers done that showed mild elevation of CA 19-9 and 48.2. Consult was therefore placed for oncology. She denied any prior history of malignancy. She states that she has had multiple PEs in the past, and was told that she has antiphospholipid antibody syndrome, and the [facility]. However on further questioning, the patient sta reynold that she was told that the testing was not definitive as she was on anticoagulation and therefore the same could not be ruled in or rule out. She apparently has failed Coumadin previously, and had major bleeding on Xarelto. However she has been on Eliquis now for 4-5 years with reasonable tolerance, and no failure. According to her she has never been diagnosed with DVTs in her extremities. 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 She denied any history of significant alcohol use. She is status post cholecystectomy. 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 Review of Systems Constitutional: Reports chronic pain, Reports poor appetite, Reports weakness Eyes: denies blurred vision, denies pain Ears: deny: decreased hearing, ear discharge, earache, tinnitus Ears, nose, mouth and throat: Denies headache, Denies sore throat Cardiovascular: Reports as per HPI, Reports decreased exercise tolerance Respiratory: Denies cough Gastrointestinal: Reports abdominal pain, Reports diarrhea, Reports nausea, Reports vomiting Genitourinary: Denies dysuria, Denies hematuria Menstruation: Reports postmenopausal Musculoskeletal: Denies myalgias Integumentary: Reports as per HPI, Reports lesions (Pyoderma gangrenosum) Neurological: Reports weakness Psychiatric: Reports anxiety Endocrine: Reports fatigue, Reports weight change Hematologic/Lymphatic: Reports as per HPI, Reports thrombophilia Past Medical History Past Medical History: Blood Disorder, Pulmonary Embolus (PE), Renal Disease, Seizure Disorder Additional Past Medical History / Comment(s): Antiphospholipid antibody syndrome which causes clots and bleeding, multiple PEs, R renal artery embolism/now atrophic, CKD stage III, hypotension, hypokalemia especially w/stress, lupus, pyoderm grangrenosum, decreased pituitary function pt states d/t clot, migraines, chonic cervical/back pain, herniated discs, RLS, vertigo, recent adm. for low K+. lupus, pancreatic mass History of Any Multi-Drug Resistant Organisms: C-DIFF Year Discovered:: 03/02/23 MDRO Source:: Stool Past Surgical History: Back Surgery, Breast Surgery, Cardiac Valve Replacement, Section, Cholecystectomy, Heart Catheterization, Hysterectomy, Pacemaker Additional Past Surgical History / Comment(s): pacemaker d/t bradycardia/hypotension with last one place in 2013 in [place], [place], 3 lower back surgeries, bilateral breast reduction. 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 She is independent. Smoking Status: Never smoker Past Alcohol Use History: None Reported Past Drug Use History: None Reported Additional Drug Use History / Comment(s): Marijuana use prn per pt. - Past Family History Mother Additional Family Medical History / Comment(s): Mother at the age of 49 yrs after surgery for silicon breast implants with a leak that caused ARDS and DIC per pt Father Family Medical History: Cancer, Hyperlipidemia, Hypertension Additional Family Medical History / Comment(s): Father is a colon cancer de leon rvivor. Medications and Allergies Home Medications Medication Instructions Recorded Confirmed Type Atorvastatin [Lipitor] 40 mg PO HS 09/24/21 03/05/23 History Cholestyramine (with Sugar) 4 gm PO DAILY PRN 09/24/21 03/05/23 History [Cholestyramine Packet] Gabapentin 300 mg PO QID 09/24/21 03/05/23 History Sertraline [Zoloft] 200 mg PO DAILY 09/24/21 03/05/23 History Ubrogepant [Ubrelvy] 100 mg PO BID PRN 09/24/21 03/05/23 History rOPINIRole HCL [Requip] 2 mg PO HS 09/24/21 03/05/23 History Esomeprazole Magnesium [NexIUM] 40 mg PO DAILY 03/16/22 03/05/23 History Botox 200unit Injection 1 dose INJ Q84D 04/02/22 03/05/23 History Diphenhydramine 50mg/Ml Vial 50 mg IM Q6H PRN 04/18/22 03/05/23 History Dicyclomine [Bentyl] 20 mg PO TID PRN #30 tablet 04/30/22 03/05/23 Rx Apixaban [Eliquis] 5 mg PO BID 05/29/22 03/05/23 History Spironolactone [Aldactone] 50 mg PO DAILY 06/11/22 03/05/23 History busPIRone HCl [Buspar] 5 mg PO BID 06/11/22 03/05/23 History Bumetanide [BUMEX] 2 mg PO DAILY 06/24/22 03/05/23 History Zonisamide [Zonegran] 100 mg PO Q12HR 30 Days #60 cap 07/26/22 03/05/23 Rx Lidocaine 5% Patch [Lidoderm 5% 1 patch TRANSDERM DAILY PRN 08/26/22 03/05/23 History Patch] Fludrocortisone [Florinef] 0.1 mg PO DAILY 09/20/22 03/05/23 History Midodrine [ProAmatine] 5 mg PO TID PRN 10/29/22 03/05/23 History Lacosamide [Vimpat] 50 mg PO BID tab 11/05/22 03/05/23 Rx Ondansetron [Zofran] 4 mg PO Q8H PRN 11/29/22 03/05/23 History Nystatin 100,000 Unit/gm Powd 1 applic TOPICAL BID PRN 01/06/23 03/05/23 History [Mycostatin Powder] Sucralfate [Carafate] 1 gm PO ACHS 01/06/23 03/05/23 History Ipratropium Nebulized [Atrovent 0.5 mg INHALATION QID PRN 01/12/23 03/05/23 History Nebulized 0.2 MG/ML] Potassium Chloride ER [K-Dur 20] 20 meq PO DAILY 01/12/23 03/05/23 History Bumetanide [Bumex] 1 mg PO HS 02/16/23 03/05/23 History Famotidine 20 mg PO BID 02/16/23 03/05/23 History HYDROcodone/APAP 10-325MG [[place] 0.5 tab PO TID 02/16/23 03/05/23 History 10-325] Levalbuterol Nebulized [Xopenex 0.31 mg INHALATION RT-BID 02/16/23 03/05/23 History Nebulized (Pediatric)] Meclizine [Antivert] 12.5 mg PO Q8H PRN 02/16/23 03/05/23 History Metoprolol Succinate (ER) [Toprol 50 mg PO HS 02/16/23 03/05/23 History Xl] Cyclobenzaprine [Flexeril] 5 mg PO TID PRN #15 tablet 03/02/23 03/05/23 Rx Allergies Allergy/AdvReac Type Severity Reaction Status Date / Time Penicillins Allergy Severe Anaphylaxis Verified 03/05/23 13:48 vancomycin Allergy Severe Swelling Verified 03/05/23 13:48 in lips albuterol [From Ventolin HFA] Allergy Rapid Verified 03/05/23 13:48 Heart Rate cefepime Allergy Swelling Verified 03/05/23 13:48 clindamycin Allergy Anaphylaxis Verified 03/05/23 13:48 dexamethasone [From Decadron] Allergy Unknown Verified 03/05/23 13:48 Influenza Virus Vaccines Allergy Unknown Verified 03/05/23 13:48 latex Allergy Unknown Verified 03/05/23 13:48 morphine Allergy Unknown Verified 03/05/23 13:48 prochlorperazine Allergy Unknown Verified 03/05/23 13:48 [From Compazine] galcanezumab-gnlm AdvReac Confusion, Verified 03/05/23 13:48 [From Emgality Pen] increased blood pressure metoclopramide [From Reglan] AdvReac "felt like Verified 03/05/23 13:48 I needed to jump out of my skin" Physical Exam Vitals: Vital Signs Temp Pulse Pulse Resp BP BP Pulse Ox 03/05/23 07:40 97.6 F 71 17 115/77 99 03/05/23 04:53 66 18 101/68 97 03/05/23 01:26 99.3 F 78 17 121/75 100 03/04/23 21:24 98.9 F 57 L 18 117/78 99 Intake and Output 03/04/23 03/05/23 03/05/23 22:59 06:59 14:59 Other: Voiding Method Toilet # Voids 0 Weight 68.492 kg 68.492 kg 68.492 kg - Constitutional General appearance: no acute distress - EENT Eyes: EOMI, PERRLA ENT: hearing grossly normal, normal oropharynx - Neck Neck: no lymphadenopathy Thyroid: bilateral: normal size - Respiratory Respiratory: bilateral: CTA - Cardiovascular Pacemaker right upper chest Rhythm: regular Heart sounds: normal: S1, S2 - Gastrointestinal General gastrointestinal: normal bowel sounds, soft - Integumentary Integumentary: normal - Neurologic Neurologic: CNII-XII intact - Musculoskeletal Musculoskeletal: generalized weakness, strength equal bilaterally - Psychiatric Anxious, tearful Psychiatric: A&O x's 3 Results CBC & Chem 7: 03/05/23 01:12 03/05/23 01:12 Labs: Abnormal Lab Results - Last 24 Hours (Table) 03/05/23 03/05/23 03/05/23 Range/Units 01:12 01:12 03:00 RDW 16.7 H (11.5-15.5) % BUN 24 H (7-17) mg/dL Creatinine 1.33 H (0.52-1.04) mg/dL Urine Appearance Cloudy H (Clear) Ur Leukocyte Esterase Small H (Negative) Urine WBC 6 H (0-5) /hpf Urine Mucus Rare H (None) /hpf Chest x-ray: report reviewed CT scan - abdomen: report reviewed CT scan - pelvis: report reviewed Assessment and Plan (1) Pancreatic mass Narrative/Plan: Oncology consult was placed because of the finding of a possible mass in the uncinate process on computed tomography scan, as well as mild elevation of CA 19-9. The above results and indications were discussed in detail with the pat ient. These are very nonspecific. The patient has had 3 CT scans within the last 2 months, all done without contrast, with 1 scan mentioning a possible hypodensity in the uncinate process of the pancreas, with the other scans not noting any such finding. The mild elevation of the CA 19-9 in this range is also quite nonspecific and can occur due to any inflammatory process. - The patient was therefore advised that at this time there is NO strong suspicion for malignancy. It would be reasonable to have more definite imaging and investigation to rule it out more completely. - The patient's creatinine was elevated, and is improving. Once creatinine is normal, we can do a computed tomography scan with contrast, which would give us better imaging. I did discuss with cardiology about doing an MRI. This would be completed by her having a pacemaker. We will try to get more information on the pacemaker, as to whether it is MRI compatible,. [place]. If the PPM is not MRI compatible then the patient would not be able to have the study, at least locally. In that case EUS can be considered. - However the patient is able to have good visualization with a contrast computed tomography scan, that is negative in the area of concern that it would be reasonable to not pursue further imaging workup at this time. In that case it would also be reasonable to just repeat her tumor marker 2- 4 weeks after resolution of her acute inflammation. Current Visit: Yes Status: Acute Code(s): K86.89 - OTHER SPECIFIED DISEASES OF PANCREAS SNOMED Code(s): 339878811 (2) Thrombophilia Narrative/Plan: The patient has had multiple PEs, and is on lifelong at the [facility]. She is currently on Eliquis with good efficacy and reasonable tolerance. She initially give a history of antiphospholipid antibody syndrome, but on further questioning this does not appear to be definitive, as described in the HPI. Based on her history the patient would be recommended lifelong anticoagulation anyway, on which she is continuing. Current Visit: Yes Status: Acute Code(s): D68.59 - OTHER PRIMARY THROMBOPHILIA SNOMED Code(s): 170787635 Plan: Defer to the admitting service and other consultants for management of her multiple other medical problems
[2023-03-05] MEDS: GABAPENTIN 300 MG CAP PO SCH ×2 (17:55→20:33)
[2023-03-05] MEDS: diphenhydrAMINE 50 MG/ML 1 ML VIAL IVP PRN ×2 (17:57→23:03)
[2023-03-05] MEDS: ATORVASTATIN 40 MG TAB PO SCH (20:32)
[2023-03-05] MEDS: APIXABAN 5 MG TAB PO SCH (20:32)
[2023-03-05] MEDS: BUMETANIDE 1 MG TAB PO SCH (20:32)
[2023-03-05] MEDS: busPIRone HCl 5 MG TAB PO SCH (20:33)
[2023-03-05] MEDS ORDERED: FAMOTIDINE 20 MG TAB PO SCH (21:00)
[2023-03-06] MEDS: HYDROmorphone 1 MG/ML 1 ML SYRINGE IVP PRN ×6 (01:15→21:04)
[2023-03-06] MEDS: SODIUM CHLORIDE 0.9% 1,000 ML IV SCH ×2 (06:04→20:58)
[2023-03-06] MEDS: GABAPENTIN 300 MG CAP PO SCH ×4 (08:27→21:05)
[2023-03-06] MEDS: busPIRone HCl 5 MG TAB PO SCH ×2 (08:27→21:05)
[2023-03-06] MEDS: APIXABAN 5 MG TAB PO SCH ×2 (08:28→21:06)
[2023-03-06] MEDS: FAMOTIDINE 20 MG TAB PO SCH (08:28)
[2023-03-06] MEDS: BUMETANIDE 1 MG TAB PO SCH ×2 (08:34→21:06)
[2023-03-06] MEDS: FIDAXOMICIN 200 MG TABLET PO SCH ×2 (08:35→21:05)
--- NOTE | 2023-03-06 09:12 | P.CONS ---
History of Present Illness - Reason for Consult Consult date: 03/05/23 C. diff colitis extensive antibiotic ALLERGIES Requesting physician: Nathanael Polk - Chief Complaint Abdominal pain and diarrhea x few days - History of Present Illness Patient is a 57-year-old female with multiple comorbidities including PE renal disease seizure disorder did have a history of recurrent Serratia marcescens bacteremia secondary to the IV port which has been discontinued patient apparently recently did have multiple visits to the ER for abdominal pain and also has been complaining of diarrhea with recent stool for C. difficile that was done on 03/02/2023 came back positive patient is presenting to the ER complaining of intact abdominal pain and nausea patient pain is mostly in the upper abdominal area describing it to be sharp intensity is almost 10 out of 10 with associated nausea but no vomiting is also complaining of multiple loose stools denies any blood or mucus in the stool with this and the patient was evaluated by the ER physician on presentation to the hospital patient was afebrile and did have 1 low-grade fever of around 9.3 degrees for an height patient did have a normal white count BUN/creatinine has been mildly elevated urine was negative patient was started on IV Flagyl because of her multiple antibiotic allergies infectious disease was consulted for further management of antibiotic for underlying C. difficile colitis Review of Systems Positive point and negatives has been mentioned in the HPI, complete review of systems was performed and all other systems are negative Past Medical History Past Medical History: Blood Disorder, Pulmonary Embolus (PE), Renal Disease, Seizure Disorder Additional Past Medical History / Comment(s): Antiphospholipid antibody syndrome which causes clots and bleeding, multiple PEs, R renal artery embolism/now atrophic, CKD stage III, hypotension, hypokalemia especially w/stress, lupus, pyoderm grangrenosum, decreased pituitary function pt states d/t clot, migraines, chonic cervical/back pain, herniated discs, RLS, vertigo, recent adm. for low K+. lupus, pancreatic mass History of Any Multi-Drug Resistant Organisms: C-DIFF Year Discovered:: 03/02/23 MDRO Source:: Stool Past Surgical History: Back Surgery, Breast Surgery, Cardiac Valve Replacement, Section, Cholecystectomy, Heart Catheterization, Hysterectomy, Pacemaker Additional Past Surgical History / Comment(s): pacemaker d/t bradycardia/hypotension with last one place in 2013 in [place], [place], 3 lower back surgeries, bilateral breast reduction. left upper arm port placed by dr maki , tricuspid valve replacement x2 with pig valve Past Anesthesia/Blood Transfusion Reactions: No Reported Reaction Type of Cardiac Device: Permanent Pacemaker, Unknown Device Placement Date:: 2012 Past Psychological History: Anxiety Additional Psychological History / Comment(s): Pt resides with her spouse. She is independent. Smoking Status: Never smoker Past Alcohol Use History: None Reported Past Drug Use History: None Reported Additional Drug Use History / Comment(s): Marijuana use prn per pt. - Past Family History Mother Additional Family Medical History / Comment(s): Mother at the age of 49 yrs after surgery for silicon breast implants with a leak that caused ARDS and DIC per pt Father Family Medical History: Cancer, Hyperlipidemia, Hypertension Additional Family Medical History / Comment(s): Father is a colon cancer survivor. Medications and Allergies Home Medications Medication Instructions Recorded Confirmed Type Atorvastatin [Lipitor] 40 mg PO HS 09/24/21 03/05/23 History Cholestyramine (with Sugar) 4 gm PO DAILY PRN 09/24/21 03/05/23 History [Cholestyramine Packet] Gabapentin 300 mg PO QID 09/24/21 03/05/23 History Sertraline [Zoloft] 200 mg PO DAILY 09/24/21 03/05/23 History Dicyclomine [Bentyl] 20 mg PO TID PRN #30 tablet 04/30/22 03/05/23 Rx Apixaban [Eliquis] 5 mg PO BID 05/29/22 03/05/23 History busPIRone HCl [Buspar] 5 mg PO BID 06/11/22 03/05/23 History Bumetanide [BUMEX] 2 mg PO DAILY 06/24/22 03/05/23 History Zonisamide [Zonegran] 100 mg PO Q12HR 30 Days #60 cap 07/26/22 03/05/23 Rx Fludrocortisone [Florinef] 0.1 mg PO DAILY 09/20/22 03/05/23 History Ondansetron [Zofran] 4 mg PO Q8H PRN 11/29/22 03/05/23 History Nystatin 100,000 Unit/gm Powd 1 applic TOPICAL BID PRN 01/06/23 03/05/23 History [Mycostatin Powder] Ipratropium Nebulized [Atrovent 0.5 mg INHALATION QID PRN 01/12/23 03/05/23 History Nebulized 0.2 MG/ML] Potassium Chloride ER [K-Dur 20] 20 meq PO DAILY 01/12/23 03/05/23 History Famotidine 20 mg PO BID 02/16/23 03/05/23 History HYDROcodone/APAP 10-325MG [[place] 0.5 tab PO TID 02/16/23 03/05/23 History 10-325] Metoprolol Succinate (ER) [Toprol 50 mg PO HS 02/16/23 03/05/23 History XL] Cyclobenzaprine [Flexeril] 5 mg PO TID PRN #15 tablet 03/02/23 03/05/23 Rx Vancomycin HCl [Vancocin HCl] 125 mg PO QID #40 capsule 03/11/23 Rx diphenhydrAMINE [Benadryl] 50 mg PO Q6HR PRN cap 03/11/23 Rx Allergies Allergy/AdvReac Type Severity Reaction Status Date / Time Penicillins Allergy Severe Anaphylaxis Verified 03/05/23 13:48 vancomycin Allergy Severe Swelling Verified 03/05/23 13:48 in lips albuterol [From Ventolin HFA] Allergy Rapid Verified 03/05/23 13:48 Heart Rate cefepime Allergy Swelling Verified 03/05/23 13:48 clindamycin Allergy Anaphylaxis Verified 03/05/23 13:48 dexamethasone [From Decadron] Allergy Unknown Verified 03/05/23 13:48 Influenza Virus Vaccines Allergy Unknown Verified 03/05/23 13:48 latex Allergy Unknown Verified 03/05/23 13:48 morphine Allergy Unknown Verified 03/05/23 13:48 prochlorperazine Allergy Unknown Verified 03/05/23 13:48 [From Compazine] galcanezumab-gnlm AdvReac Confusion, Verified 03/05/23 13:48 [From Emgality Pen] increased blood pressure metoclopramide [From Reglan] AdvReac "felt like Verified 03/05/23 13:48 I needed to jump out of my skin" Physical Exam Vitals: Vital Signs Temp Pulse Pulse Resp BP BP Pulse Ox 03/05/23 07:40 97.6 F 71 17 115/77 99 03/05/23 04:53 66 18 101/68 97 03/05/23 01:26 99.3 F 78 17 121/75 100 03/04/23 21:24 98.9 F 57 L 18 117/78 99 Intake and Output 03/04/23 03/05/23 03/05/23 22:59 06:59 14:59 Other: # Voids 0 Weight 68.492 kg 68.492 kg GENERAL DESCRIPTION: Middle-aged female lying in bed, no distress. No tachypnea or accessory muscle of respiration use. HEENT: Shows Pallor , no scleral icterus. Oral mucous membrane is dry. No pharyngeal erythema or thrush NECK: Trachea central, no thyromegaly. LUNGS: Unlabored breathing. Clear to auscultation anteriorly. No wheeze or crackle. HEART: S1, S2, regular rate and rhythm. No loud murmur ABDOMEN: Soft, mild tenderness EXTREMITIES: No edema of feet. SKIN: No rash, no masses palpable. NEUROLOGICAL: The patient is awake, alert, oriented x3, mood and affect normal. Results CBC & Chem 7: 03/11/23 08:09 03/11/23 08:09 Labs: Abnormal Lab Results - Last 24 Hours (Table) 03/05/23 03/05/23 03/05/23 Range/Units 01:12 01:12 03:00 RDW 16.7 H (11.5-15.5) % BUN 24 H (7-17) mg/dL Creatinine 1.33 H (0.52-1.04) mg/dL Urine Appearance Cloudy H (Clear) Ur Leukocyte Esterase Small H (Negative) Urine WBC 6 H (0-5) /hpf Urine Mucus Rare H (None) /hpf Assessment and Plan (1) Allergy to multiple antibiotics Status: Acute Code(s): Z88.1 - ALLERGY STATUS TO OTHER ANTIBIOTIC AGENTS SNOMED Code(s): 746115051 (2) Clostridium difficile infection Status: Acute Code(s): A49.8 - OTHER BACTERIAL INFECTIONS OF UNSPECIFIED SITE SNOMED Code(s): 122838505 Plan: 1patient presented to hospital with abdominal pain diarrhea with a recent outpatient stool for C. difficile positive possibly contribute to some of her symptoms especially with significant diarrhea and did have antibiotic exposure. 2patient with multiple antibiotic allergies that would limit the number of antibiotics safe to use. 3discontinue IV Flagyl. 4we will add oral Dificid 200 g p.o. twice a day may need to add Questran if the diarrhea persist. 5patient encouraged to increase the probiotic and yogurt intake we will follow on clinical condition and cultures to further adjust medication if needed Thank you for this consultation we will follow the patient along with you Dictation was produced using [employer] dictation software. please excuse any gra mmatical, word or spelling errors. Time with Patient: Greater than 30
[2023-03-06] MEDS: FLUDROCORTISONE 0.1 MG TAB PO SCH (12:54)
[2023-03-06] MEDS: diphenhydrAMINE 50 MG/ML 1 ML VIAL IVP PRN ×2 (12:57→21:10)
[2023-03-06] MEDS: ONDANSETRON 4 MG/2 ML VIAL IVP PRN (13:01)
--- NOTE | 2023-03-06 14:14 | P.PN ---
Subjective Progress Note Date: 03/06/23 Principal diagnosis: C. 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 diff and did have diarrhea On today's evaluation that is03/06/2023, the patient denies any fever or any chills, the patient is breathing comfortably on room air and no need for supplemental oxygen, the patient denies any chest pain and no cough or sputum production, patient abdominal pain has decreased in intensity and diarrhea has slowed has been complaining of discomfort to the right upper jaw and concerning for pus drainage Patient white count is 8.0, creatinine is 1.33 Objective - Vital Signs Vital signs: Vital Signs Temp 98.5 F 03/06/23 07:25 Pulse 66 03/06/23 07:25 Resp 18 03/06/23 07:25 BP 105/57 03/06/23 07:25 Pulse Ox 98 03/06/23 07:25 FiO2 Intake & Output 03/05/23 03/06/23 03/06/23 19:59 06:59 18:59 Weight Other: Voiding Method # Voids # Bowel Movements - Exam GENERAL DESCRIPTION: A middle-age female lying in bed in no distress HEENT: Right upper jaw no purulent drainage was noticed RESPIRATORY SYSTEM: Unlabored breathing , clear to auscultation anteriorly HEART: S1 S2 regular rate and rhythm , ABDOMEN: Soft , no tenderness EXTREMITIES: No edema feet - Labs CBC & Chem 7: 03/05/23 01:12 03/05/23 01:12 Assessment and Plan (1) Clostridium difficile infection Current Visit: Yes Status: Acute Code(s): A49.8 - OTHER BACTERIAL INFECTIONS OF UNSPECIFIED SITE SNOMED Code(s): 044542827 Plan: 1patient presented to hospital with abdominal pain diarrhea with a recent outpatient stool for C. difficile positive possibly contribute to some of her symptoms especially with significant diarrhea and did have antibiotic exposure. 2patient with multiple antibiotic allergies that would limit the number of antibiotics safe to use. 3patient to continue with oral Dificid 200 g p.o. twice a day 4- patient is complaining of pain and some purulent drainage to the right upper jaw, will check x-ray. Dictation was produced using [employer] software. please excuse any grammatical, word or spelling errors. Time with Patient: Less than 30
--- NOTE | 2023-03-06 14:39 | XR ---
Mandible. Upper mandible dental infection. COMPARISON: None TECHNIQUE: 2 views of the mandible were obtained. FINDINGS: The mandible is intact and there is no osseous destruction. The maxillary sinuses are well aerated. IMPRESSION: No significant abnormality seen.
[2023-03-06] MEDS: ATORVASTATIN 40 MG TAB PO SCH (21:06)
[2023-03-07] MEDS: HYDROmorphone 1 MG/ML 1 ML SYRINGE IVP PRN (03:21)
[2023-03-07] MEDS: ONDANSETRON 4 MG/2 ML VIAL IVP PRN (03:23)
[2023-03-07] MEDS ORDERED: LORazepam 2 MG/ML INJ IV STA (03:36)
[2023-03-07] MEDS ORDERED: LORazepam 2 MG/ML INJ ONE (03:36)
[2023-03-07 03:49] LABS: Glucose,Whole Blood 92 mg/dL (70-110)
[2023-03-07 08:46] LABS: BUN/Creat Ratio 12.73 Ratio (12.00-20.00); Blood Urea Nitrogen 19.1 mg/dL (9.0-27.0); Calcium 8.6 mg/dL (8.7-10.3); Carbon Dioxide 23.2 mmol/L (21.6-31.8); Chloride 105 mmol/L (96-109); Glucose 93 mg/dL (70-110); Potassium 3.6 mmol/L (3.5-5.5); Sodium 139 mmol/L (135-145)
--- NOTE | 2023-03-07 11:30 | P.PN ---
Subjective Progress Note Date: 03/07/23 Principal diagnosis: C. 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 diff and did have diarrhea On today's evaluation that is 03/07/2023, the patient remains to be afebrile, the patient is breathing comfortably on room air , the patient denies any chest pain or cough and no sputum production, patient denies nausea/vomiting , the patient diarrhea has slowed down , no abdominal pain , the patient has been complaining of significant discomfort to the right upper jaw and concerning for pus drainage and unable to sleep because of that Patient white count is 8.0 as of 03/05/2023, creatinine is 1.5 Objective - Vital Signs Vital signs: Vital Signs Temp 97.7 F 03/07/23 07:32 Pulse 70 03/07/23 07:32 Resp 17 03/07/23 07:32 BP 120/77 03/07/23 07:32 Pulse Ox 100 03/07/23 08:35 FiO2 Intake & Output 03/06/23 03/07/23 03/07/23 18:59 06:59 18:59 Other: Voiding Method Toilet Toilet # Voids 3 0 - Exam GENERAL DESCRIPTION: A middle-age female lying in bed in no distress HEENT: Right upper jaw no purulent drainage was noticed RESPIRATORY SYSTEM: Unlabored breathing , clear to auscultation anteriorly HEART: S1 S2 regular rate and rhythm , ABDOMEN: Soft , no tenderness EXTREMITIES: No edema feet - Labs CBC & Chem 7: 03/05/23 01:12 03/07/23 06:22 Labs: Abnormal Lab Results - Last 24 Hours (Table) 03/07/23 Range/Units 06:22 Est GFR (CKD-EPI) 40 L (>=60) Calcium 8.6 L (8.7-10.3) mg/dL Assessment and Plan (1) Clostridium difficile infection Current Visit: Yes Status: Acute Code(s): A49.8 - OTHER BACTERIAL INFECTIONS OF UNSPECIFIED SITE SNOMED Code(s): 463956162 Plan: 1patient presented to hospital with abdominal pain diarrhea with a recent outpatient stool for C. difficile positive possibly contribute to some of her symptoms especially with significant diarrhea and did have antibiotic exposure. 2patient with multiple antibiotic allergies that would limit the number of antibiotics safe to use. 3patient to continue with oral Dificid 200 g p.o. twice a day 4- patient is complaining of pain and some purulent drainage to the right upper jaw, x-ray of the mandible was negative did have significant discomfort and swelling to the area patient to have multiple antibiotic ALLERGIES we will start Invanz and watch her clinical course closely Dictation was produced using [employer] dictation software. please excuse any grammatical, word or spelling errors. Time with Patient: Less than 30
[2023-03-07] MEDS: diphenhydrAMINE 50 MG/ML 1 ML VIAL IVP PRN ×2 (12:09→21:40)
[2023-03-07] MEDS: busPIRone HCl 5 MG TAB PO SCH ×2 (12:09→21:38)
[2023-03-07] MEDS: BUMETANIDE 1 MG TAB PO SCH ×2 (12:09→21:39)
[2023-03-07] MEDS: FLUDROCORTISONE 0.1 MG TAB PO SCH (12:09)
[2023-03-07] MEDS: SODIUM CHLORIDE 0.9% 1,000 ML IV SCH (12:10)
[2023-03-07] MEDS: FIDAXOMICIN 200 MG TABLET PO SCH ×2 (12:10→21:39)
[2023-03-07] MEDS: APIXABAN 5 MG TAB PO SCH ×2 (12:10→21:38)
[2023-03-07] MEDS: GABAPENTIN 300 MG CAP PO SCH ×4 (12:10→21:38)
[2023-03-07] MEDS: FAMOTIDINE 20 MG TAB PO SCH (12:10)
[2023-03-07] MEDS: ERTAPENEM 1 GM in SODIUM CHLORIDE 0.9% 50 ML IVPB SCH (12:19)
--- NOTE | 2023-03-07 14:07 | CT ---
EXAMINATION TYPE: CT brain wo con DATE OF EXAM: 03/07/2023 COMPARISON: 05/31/2022 HISTORY: seizure activity CT DLP: 1097.4 mGycm Automated exposure control for dose reduction was used. FINDINGS: There is artifact which limits the exam. Grossly structures are midline without evidence of shift. No acute hemorrhage or mass effect. Mild degenerative changes of the greater frontal lobe component. No acute hemorrhage or mass effect. Orbits are symmetric. Sinuses are clear. Calvarium intact. Craniocervical junction maintained. Sella turcica is normal. IMPRESSION: NO ACUTE PROCESS.
--- NOTE | 2023-03-07 14:12 | P.PN ---
Subjective Progress Note Date: 03/07/23 Principal diagnosis: abd pain At today's visit patient is resting bed. Patient is reporting feeling tired and fatigued. Patient reports improvement in abdominal pain. Objective - Vital Signs Vital signs: Vital Signs Temp 97.6 F 03/07/23 13:50 Pulse 84 03/07/23 13:50 Resp 17 03/07/23 13:50 BP 156/70 03/07/23 13:50 Pulse Ox 97 03/07/23 13:50 FiO2 Intake & Output 03/06/23 03/07/23 03/07/23 18:59 06:59 18:59 Other: Voiding Method Toilet Toilet # Voids 3 0 - Constitutional General appearance: Present: average body habitus, no acute distress - EENT Eyes: Present: anicteric sclerae, EOMI ENT: Present: hearing grossly normal - Respiratory Details: breathing even and unlabored - Cardiovascular Details: skin warm and dry - Integumentary Integumentary: Absent: cyanotic - Musculoskeletal Musculoskeletal: Present: strength equal bilaterally - Psychiatric Psychiatric: Present: A&O x's 3, appropriate affect, intact judgment & insight - Labs CBC & Chem 7: 03/05/23 01:12 03/07/23 06:22 Labs: Abnormal Lab Results - Last 24 Hours (Table) 03/07/23 Range/Units 06:22 Est GFR (CKD-EPI) 40 L (>=60) Calcium 8.6 L (8.7-10.3) mg/dL Assessment and Plan (1) Pancreatic mass Current Visit: Yes Status: Acute Code(s): K86.89 - OTHER SPECIFIED DISEASES OF PANCREAS SNOMED Code(s): 098579837 (2) Thrombophilia Current Visit: Yes Status: Acute Code(s): D68.59 - OTHER PRIMARY THROMBOPHILIA SNOMED Code(s): 703811898 Plan: Pancreatic mass: Oncology consult was placed because of the finding of a possible mass in the uncinate process on computed tomography scan, as well as mild elevation of CA 19-9. The above results and indications were discussed in detail with the patient. These are very nonspecific. The patient has had 3 CT scans within the last 2 months, all done without contrast, with 1 scan mentioning a possible hypodensity in the uncinate process of the pancreas, with the other scans not noting any such finding. The mild elevation of the CA 19-9 in this range is also quite nonspecific and can occur due to any inflammatory process. - The patient was therefore advised that at this time there is NO strong suspicion for malignancy. It would be reasonable to have more definite imaging and investigation to rule it out more completely. - The patient's creatinine was elevated. Once creatinine is normal, we can do a computed tomography scan with contrast, pancreas protocol which would give us better imaging. Will schedule test outpt. If testing abnormal, will obtain MRI vs EUS. I did discuss with cardiology about doing an MRI. This would be complicated by her having a pacemaker. We will try to get more information on the pacemaker, as to whether it is MRI compatible. [place]. If the PPM is not MRI compatible then the patient would not be able to have the study, at least locally. In that case EUS can be considered. - Will schedule clinic f/u to discuss imaging results once obtained and repeat her tumor markers after resolution of her acute inflammation. Thrombophilia: The patient has had multiple PEs, and is on lifelong at the correlation. She is currently on Eliquis with good efficacy and reasonable tolerance. She initially give a history of antiphospholipid antibody syndrome, but on further questioning this does not appear to be definitive, as described in consult HPI. Based on h er history the patient would be recommended lifelong anticoagulation anyway, on which she is continuing. Plan: Defer to the admitting service and other consultants for management of her multiple other medical problems
--- NOTE | 2023-03-07 15:14 | P.CNNES ---
History of Present Illness Consult date: 03/07/23 Requesting physician: Vinicio Cuevas Reason for Consult: seizure History of Present Illness: this is a 57-year-old woman with history of nonepileptic seizures, traumatic brain injury in 2007, bacterial endocarditis with tricuspid valve replacement, pulmonary and was him, pacemaker, chronic renal insufficiency and multiple mul tiple other issueswho presented emergency department because of was told she had positive C. diff.neurologist consulted for seizure. Patient stated she had a seizure-like activity yesterday. Patient is known to me and I personally saw her last on 11/04/2022. She has nonepileptic seizure. She had an EEG was was negative. I recommend the patient to follow-up with neurologistfor the seizures as an outpatient and recommended consideration a prolonged EEG as an outpatient. Patient stated that she has not followed up with a neurologist. according to her she follows up with a neurologist over [place] only for her migraines. In the past I started her on Vimpat 50 mg twice a day in addition to her home medication of zonisamide 100 mg twice a day. Also during that at her last visit upon seeing her she was on gabapentin for pain and I stated that the is a poor antiepileptic drug. during this admission the primary attending ordered an EEG and she declined to obtain the EEG. patient had a CT of the head today which is reported as no acute process.I personally reviewed this the head and I agree there is no acute or subacute ischemia. There is no bleed was able to appreciate. Review of Systems Review of system: The 12 point system was reviewed and apparent positive and negative per HPI. 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 for low K+. lupus, pancreatic mass History of Any Multi-Drug Resistant Organisms: C-DIFF Date of last positivie culture/infection: 03/02/23 MDRO Source:: Stool Past Surgical History: Back Surgery, Breast Surgery, Cardiac Valve Replacement, Section, Cholecystectomy, Heart Catheterization, Hysterectomy, Pacemaker Additional Past Surgical History / Comment(s): pacemaker d/t bradycardia/hypotension with last one place in 2013 in [place], [place], 3 lower back surgeries, bilateral breast reduction. 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 She is independent. Smoking Status: Never smoker Past Alcohol Use History: None Reported Past Drug Use History: None Reported Additional Drug Use History / Comment(s): Marijuana use prn per pt. - Past Family History Mother Additional Family Medical History / Comment(s): Mother at the age of 49 yrs after surgery for silicon breast implants with a leak that caused ARDS and DIC per pt Father Family Medical History: Cancer, Hyperlipidemia, Hypertension Additional Family Medical History / Comment(s): Father is a colon cancer survivor. Medications and Allergies Home Medications Medication Instructions Recorded Confirmed Type Atorvastatin [Lipitor] 40 mg PO HS 09/24/21 03/05/23 History Cholestyramine (with Sugar) 4 gm PO DAILY PRN 09/24/21 03/05/23 History [Cholestyramine Packet] Gabapentin 300 mg PO QID 09/24/21 03/05/23 History Sertraline [Zoloft] 200 mg PO DAILY 09/24/21 03/05/23 History Ubrogepant [Ubrelvy] 100 mg PO BID PRN 09/24/21 03/05/23 History rOPINIRole HCL [Requip] 2 mg PO HS 09/24/21 03/05/23 History Esomeprazole Magnesium [NexIUM] 40 mg PO DAILY 03/16/22 03/05/23 History Botox 200unit Injection 1 dose INJ Q84D 04/02/22 03/05/23 History Diphenhydramine 50mg/Ml Vial 50 mg IM Q6H PRN 04/18/22 03/05/23 History Dicyclomine [Bentyl] 20 mg PO TID PRN #30 tablet 04/30/22 03/05/23 Rx Apixaban [Eliquis] 5 mg PO BID 05/29/22 03/05/23 History Spironolactone [Aldactone] 50 mg PO DAILY 06/11/22 03/05/23 History busPIRone HCl [Buspar] 5 mg PO BID 06/11/22 03/05/23 History Bumetanide [BUMEX] 2 mg PO DAILY 06/24/22 03/05/23 History Zonisamide [Zonegran] 100 mg PO Q12HR 30 Days #60 cap 07/26/22 03/05/23 Rx Lidocaine 5% Patch [Lidoderm 5% 1 patch TRANSDERM DAILY PRN 08/26/22 03/05/23 History Patch] Fludrocortisone [Florinef] 0.1 mg PO DAILY 09/20/22 03/05/23 History Midodrine [ProAmatine] 5 mg PO TID PRN 10/29/22 03/05/23 History Lacosamide [Vimpat] 50 mg PO BID tab 11/05/22 03/05/23 Rx Ondansetron [Zofran] 4 mg PO Q8H PRN 11/29/22 03/05/23 History Nystatin 100,000 Unit/gm Powd 1 applic TOPICAL BID PRN 01/06/23 03/05/23 History [Mycostatin Powder] Sucralfate [Carafate] 1 gm PO ACHS 01/06/23 03/05/23 History Ipratropium Nebulized [Atrovent 0.5 mg INHALATION QID PRN 01/12/23 03/05/23 History Nebulized 0.2 MG/ML] Potassium Chloride ER [K-Dur 20] 20 meq PO DAILY 01/12/23 03/05/23 History Bumetanide [Bumex] 1 mg PO HS 02/16/23 03/05/23 History Famotidine 20 mg PO BID 02/16/23 03/05/23 History HYDROcodone/APAP 10-325MG [Burden 0.5 tab PO TID 02/16/23 03/05/23 History 10-325] Levalbuterol Nebulized [Xopenex 0.31 mg INHALATION RT-BID 02/16/23 03/05/23 History Nebulized (Pediatric)] Meclizine [Antivert] 12.5 mg PO Q8H PRN 02/16/23 03/05/23 History Metoprolol Succinate (ER) [Toprol 50 mg PO HS 02/16/23 03/05/23 History Xl] Cyclobenzaprine [Flexeril] 5 mg PO TID PRN #15 tablet 03/02/23 03/05/23 Rx Allergies Allergy/AdvReac Type Severity Reaction Status Date / Time Penicillins Allergy Severe Anaphylaxis Verified 03/05/23 13:48 vancomycin Allergy Severe Swelling Verified 03/05/23 13:48 in lips albuterol [From Ventolin HFA] Allergy Rapid Verified 03/05/23 13:48 Heart Rate cefepime Allergy Swelling Verified 03/05/23 13:48 clindamycin Allergy Anaphylaxis Verified 03/05/23 13:48 dexamethasone [From Decadron] Allergy Unknown Verified 03/05/23 13:48 Influenza Virus Vaccines Allergy Unknown Verified 03/05/23 13:48 latex Allergy Unknown Verified 03/05/23 13:48 morphine Allergy Unknown Verified 03/05/23 13:48 prochlorperazine Allergy Unknown Verified 03/05/23 13:48 [From Compazine] [id number] AdvReac Confusion, Verified 03/05/23 13:48 [From Emgality Pen] increased blood pressure metoclopramide [From Reglan] AdvReac "felt like Verified 03/05/23 13:48 I needed to jump out of my skin" Physical Examination - Vital Signs Vital Signs: Vital Signs Temp Pulse Resp BP Pulse Ox 03/07/23 13:50 97.6 F 84 17 156/70 97 03/07/23 08:35 100 03/07/23 07:32 97.7 F 70 17 120/77 100 03/07/23 01:50 98.1 F 72 18 121/82 98 03/06/23 21:03 99.3 F 74 16 123/72 92 L Intake and Output 03/07/23 03/07/23 03/07/23 06:59 14:59 22:59 Other: # Voids 0 GENERAL: The patient is lying in bed and is not in acute distress. NEUROLOGICAL: Higher mental function: The patient is awake, alert, oriented to self, place and time. Patient is following commands. No aphasia and no neglect. Cranial nerves: The pupils are round, equal and reactive to light and accommodation. Visual pierce are full to confrontation throughout. Extraocular movement is intact no nystagmus is noted. Facial sensation is normal to touch throughout. The facial strength is normal throughout. Hearing is normal bi laterally to hand rub. Tongue is midline and moved [id number] without any difficulty. No dysarthria is noted. Shoulder shrug is normal bilaterally. Motor: The strength is 5 over 5 throughout. Normal tone and bulk. Cerebellum: Normal finger to nose bilaterally. Sensation: Decrease sensation to touch over the right lower. Otherwise normal to touch throughout. Reflexes (right/left):2+ throughout Plantars are downgoing bilaterally. Results - Laboratory Findings CBC and BMP: 03/05/23 01:12 03/07/23 06:22 Abnormal Lab Findings: Abnormal Labs 03/05/23 03/05/23 03/05/23 01:12 01:12 03:00 RDW 16.7 H BUN 24 H Creatinine 1.33 H Est GFR (CKD-EPI) Calcium Urine Appearance Cloudy H Ur Leukocyte Esterase Small H Urine WBC 6 H Urine Mucus Rare H 03/07/23 06:22 RDW BUN Creatinine Est GFR (CKD-EPI) 40 L Calcium 8.6 L Urine Appearance Ur Leukocyte Esterase Urine WBC Urine Mucus Assessment and Plan Assessment: this is a 57-year-old woman with history of nonepileptic seizure multiple other medical issues who presented emergency department that because she has a positive C. diff. She reported she had a seizure-like activity yesterday. patient is known to me and I personally saw the patient last on 11/04/2022 and she had a remote normal routine EEG. Today she refuses to pursue with that the EEG. Breakthrough seizure is likely nonepileptic in nature. cannot rule out breakthrough seizure due to underlying C. diff. She seems back to baseline. she is currently refusing the repeat EEG History of nonepileptic seizures recent positive C. diff History of lupus History of chronic back pain History of bacterial endocarditis of tricuspid replacement History of pulmonary was a History of permanent pacemaker due to complete heart block History of antiphospholipid antibody History of chronic renal insufficiency history of pyoderma gangrenosum Depression PTSD Anxiety Polypharmacy Plan: patient had a CT of the head ordered by the primary which was unremarkable She is refusinga repeat EEG. The primary has started her on Keppra 500mg IV every 12 hours. I feel the patient is on polypharmacy. Other recommend the patient to follow-up with a neurologist as an outpatient for her seizure as well as I recommend she follows up with psychiatrist and she was reemphasized this a few times today. We'll defer the rest of the medical measure the primary and other specialists The plan discussed with the patient nurse Thank you consultation Time with Patient: Greater than 30
[2023-03-07] MEDS: levETIRAcetam IV 500 MG/5 ML VIAL IVP SCH ×2 (16:32→23:06)
[2023-03-07] MEDS ORDERED: ACETAMINOPHEN TAB 500 MG TAB PO PRN (18:03)
[2023-03-07] MEDS: HYDROmorphone 0.5 MG/0.5 ML SYRINGE IVP PRN (20:08)
[2023-03-07] MEDS: ATORVASTATIN 40 MG TAB PO SCH (21:38)
[2023-03-08] MEDS: ONDANSETRON 4 MG/2 ML VIAL IVP PRN ×2 (00:50→10:54)
[2023-03-08] MEDS: HYDROmorphone 0.5 MG/0.5 ML SYRINGE IVP PRN ×5 (00:50→16:04)
[2023-03-08] MEDS: SODIUM CHLORIDE 0.9% 1,000 ML IV SCH ×2 (00:57→12:55)
[2023-03-08 06:39] LABS: African American GFR (CKD) 59 (>60 ml/min/1.73 sqM); Anion Gap 9 mmol/L; Blood Urea Nitrogen 15 mg/dL (7-17); Calcium 8.3 mg/dL (8.4-10.2); Carbon Dioxide 24 mmol/L (22-30); Chloride 110 mmol/L (98-107); Glucose 112 mg/dL (74-99); Non-African American GFR(CKD) 51 (>60 ml/min/1.73 sqM); Sodium 143 mmol/L (137-145)
[2023-03-08 06:40] LABS: Potassium 4.2 mmol/L (3.5-5.1)
[2023-03-08] MEDS: levETIRAcetam IV 500 MG/5 ML VIAL IVP SCH (08:15)
[2023-03-08] MEDS: diphenhydrAMINE 50 MG/ML 1 ML VIAL IVP PRN ×2 (08:18→21:47)
[2023-03-08] MEDS: busPIRone HCl 5 MG TAB PO SCH ×2 (09:52→21:53)
[2023-03-08] MEDS: BUMETANIDE 1 MG TAB PO SCH ×2 (09:52→21:54)
[2023-03-08] MEDS: FAMOTIDINE 20 MG TAB PO SCH (09:53)
[2023-03-08] MEDS: FLUDROCORTISONE 0.1 MG TAB PO SCH (09:53)
[2023-03-08] MEDS: APIXABAN 5 MG TAB PO SCH ×2 (09:53→21:53)
[2023-03-08] MEDS: GABAPENTIN 300 MG CAP PO SCH ×4 (09:53→21:53)
--- NOTE | 2023-03-08 10:04 | P.PAINCN ---
History of Present Illness - Reason for Consult Consult date: 03/08/23 chronic pain - History of Present Illness [place] is a 59-year-old female multiple medical problems including fibromyalgia, chronic back pain, congestive heart failure and recent bacteremia. She reports that she has multiple areas of pain and this but she came to the hospital. The patient reports she also has C. diff and reports that she has newly diagnosed pancreatic cancer. The notes in the chart report that they're unsure what the small lesion on the pancreas isn't as unlikely to be a mass or any malignancy. The patient reports pain in the right jaw due to "abscess", pain in the abdomen and chronic back pain. Reports she was suupposed to have back surgery with Dr. San on but was cancelled due to bactermia from her port. Today, pain is mostly abdominal because she believes she has pancreatic cancer. Back pain is stable. she says she came here to the hospital due to abdominal pain that is treated with IV dilauded when she gets this type of pain by Dr. Mccann. 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 for low K+. lupus, pancreatic mass History of Any Multi-Drug Resistant Organisms: C-DIFF Year Discovered:: 03/02/23 MDRO Source:: Stool Past Surgical History: Back Surgery, Breast Surgery, Cardiac Valve Replacement, Section, Cholecystectomy, Heart Catheterization, Hysterectomy, Pacemaker Additional Past Surgical History / Comment(s): pacemaker d/t bradycardia/hypotension with last one place in 2013 in [place], [place], 3 lower back surgeries, bilateral breast reduction. 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 She is independent. Smoking Status: Never smoker Past Alcohol Use History: None Reported Past Drug Use History: None Reported Additional Drug Use History / Comment(s): Marijuana use prn per pt. - Past Family History Mother Additional Family Medical History / Comment(s): Mother at the age of 49 yrs after surgery for silicon breast implants with a leak that caused ARDS and DIC per pt Father Family Medical History: Cancer, Hyperlipidemia, Hypertension Additional Family Medical History / Comment(s): Father is a colon cancer survivor. Medications and Allergies Home Medications Medication Instructions Recorded Confirmed Type Atorvastatin [Lipitor] 40 mg PO HS 09/24/21 03/05/23 History Cholestyramine (with Sugar) 4 gm PO DAILY PRN 09/24/21 03/05/23 History [Cholestyramine Packet] Gabapentin 300 mg PO QID 09/24/21 03/05/23 History Sertraline [Zoloft] 200 mg PO DAILY 09/24/21 03/05/23 History Ubrogepant [Ubrelvy] 100 mg PO BID PRN 09/24/21 03/05/23 History rOPINIRole HCL [Requip] 2 mg PO HS 09/24/21 03/05/23 History Esomeprazole Magnesium [NexIUM] 40 mg PO DAILY 03/16/22 03/05/23 History Botox 200unit Injection 1 dose INJ Q84D 04/02/22 03/05/23 History Diphenhydramine 50mg/Ml Vial 50 mg IM Q6H PRN 04/18/22 03/05/23 History Dicyclomine [Bentyl] 20 mg PO TID PRN #30 tablet 04/30/22 03/05/23 Rx Apixaban [Eliquis] 5 mg PO BID 05/29/22 03/05/23 History Spironolactone [Aldactone] 50 mg PO DAILY 06/11/22 03/05/23 History busPIRone HCl [Buspar] 5 mg PO BID 06/11/22 03/05/23 History Bumetanide [BUMEX] 2 mg PO DAILY 06/24/22 03/05/23 History Zonisamide [Zonegran] 100 mg PO Q12HR 30 Days #60 cap 07/26/22 03/05/23 Rx Lidocaine 5% Patch [Lidoderm 5% 1 patch TRANSDERM DAILY PRN 08/26/22 03/05/23 History Patch] Fludrocortisone [Florinef] 0.1 mg PO DAILY 09/20/22 03/05/23 History Midodrine [ProAmatine] 5 mg PO TID PRN 10/29/22 03/05/23 History Lacosamide [Vimpat] 50 mg PO BID tab 11/05/22 03/05/23 Rx Ondansetron [Zofran] 4 mg PO Q8H PRN 11/29/22 03/05/23 History Nystatin 100,000 Unit/gm Powd 1 applic TOPICAL BID PRN 01/06/23 03/05/23 History [Mycostatin Powder] Sucralfate [Carafate] 1 gm PO ACHS 01/06/23 03/05/23 History Ipratropium Nebulized [Atrovent 0.5 mg INHALATION QID PRN 01/12/23 03/05/23 History Nebulized 0.2 MG/ML] Potassium Chloride ER [K-Dur 20] 20 meq PO DAILY 01/12/23 03/05/23 History Bumetanide [Bumex] 1 mg PO HS 02/16/23 03/05/23 History Famotidine 20 mg PO BID 02/16/23 03/05/23 History HYDROcodone/APAP 10-325MG [[place] 0.5 tab PO TID 02/16/23 03/05/23 History 10-325] Levalbuterol Nebulized [Xopenex 0.31 mg INHALATION RT-BID 02/16/23 03/05/23 History Nebulized (Pediatric)] Meclizine [Antivert] 12.5 mg PO Q8H PRN 02/16/23 03/05/23 History Metoprolol Succinate (ER) [Toprol 50 mg PO HS 02/16/23 03/05/23 History Xl] Cyclobenzaprine [Flexeril] 5 mg PO TID PRN #15 tablet 03/02/23 03/05/23 Rx Allergies Allergy/AdvReac Type Severity Reaction Status Date / Time Penicillins Allergy Severe Anaphylaxis Verified 03/05/23 13:48 vancomycin Allergy Severe Swelling Verified 03/05/23 13:48 in lips albuterol [From Ventolin HFA] Allergy Rapid Verified 03/05/23 13:48 Heart Rate cefepime Allergy Swelling Verified 03/05/23 13:48 clindamycin Allergy Anaphylaxis Verified 03/05/23 13:48 dexamethasone [From Decadron] Allergy Unknown Verified 03/05/23 13:48 Influenza Virus Vaccines Allergy Unknown Verified 03/05/23 13:48 latex Allergy Unknown Verified 03/05/23 13:48 morphine Allergy Unknown Verified 03/05/23 13:48 prochlorperazine Allergy Unknown Verified 03/05/23 13:48 [From Compazine] galcanezumab-gnlm AdvReac Confusion, Verified 03/05/23 13:48 [From Emgality Pen] increased blood pressure metoclopramide [From Reglan] AdvReac "felt like Verified 03/05/23 13:48 I needed to jump out of my skin" Physical Exam Vitals: Vital Signs Temp Pulse Resp BP Pulse Ox 03/08/23 07:40 98.7 F 70 19 103/67 96 03/08/23 01:03 99.1 F 70 17 106/69 92 L 03/07/23 18:55 98.3 F 79 16 166/76 97 03/07/23 13:50 97.6 F 84 17 156/70 97 Intake and Output 03/07/23 03/08/23 03/08/23 22:59 06:59 14:59 Intake Total 900 Balance 900 Intake: Intake, IV Titration 900 Amount Sodium Chloride 0.9% 1, 900 000 ml @ 75 mls/hr IV . [id number] [facility] Rx#:[id number] Other: # Voids 1 2 - Constitutional General appearance: obese - Respiratory Respiratory: bilateral: CTA - Cardiovascular Rhythm: regular Heart sounds: normal: S1, S2 - Gastrointestinal General gastrointestinal: normal bowel sounds Localized gastrointestinal: tender: diffuse Results CBC & Chem 7: 03/05/23 01:12 03/08/23 05:31 Labs: Abnormal Lab Results - Last 24 Hours (Table) 03/08/23 Range/Units 05:31 Chloride 110 H (98-107) mmol/L Creatinine 1.18 H (0.52-1.04) mg/dL Glucose 112 H (74-99) mg/dL Calcium 8.3 L (8.4-10.2) mg/dL Assessment and Plan Assessment: 1 chronic pain 2 opioid dependence Plan: recommend to start hydrocodone 10mg q6hr prn, d/c IV pain medications. Treat infection with antibiotics. No injection indicated given infections. f/u with Dr Rosario for pain management per pre hospital admission. Time with Patient: Greater than 30 PQRS Measure Charge Sheet Measure #130: Documentation of Current Meds in Medical Chart: Patient's medications documented in chart Measure #317: Preventitive Care & Scrn High Bld Press & F/U: Normal blood pressure, f/u not required Measure #128: Body Mass Index (BMI) Screening & Follow-up: BMI documented ABOVE normal parameters - f/u documented Measure #131: Pain Assessment & Follow-up: Pain positive & plan documented Measure #431: Unhealthy Alcohol Use Preventative Care & Scrn: Patient not identified as an unhealthy alcohol user - Pain Location Abdomen Non-Pharmacological Interventions: Darkened Room, Distraction, Inactivity, Position/Reposition Pharmacological Interventions: Discuss Pain Med Options PQRS Narrative: Blood Pressure [Right Arm] 103/67 Blood Pressure 101/68 Pain Intensity [Abdomen] 10 Pain Intensity 7 Pain Scale Used Numeric (1 - 10) Scale Used Numeric (1 - 10) Home Medications: Ambulatory Orders Atorvastatin [Lipitor] 40 mg PO HS 09/24/21 Cholestyramine (with Sugar) [Cholestyramine Packet] 4 gm PO DAILY PRN 09/24/21 Gabapentin 300 mg PO QID 09/24/21 Sertraline [Zoloft] 200 mg PO DAILY 09/24/21 Ubrogepant [Ubrelvy] 100 mg PO BID PRN 09/24/21 rOPINIRole HCL [Requip] 2 mg PO HS 09/24/21 Esomeprazole Magnesium [NexIUM] 40 mg PO DAILY 03/16/22 Botox 200unit Injection 1 dose INJ Q84D 04/02/22 Diphenhydramine 50mg/Ml Vial 50 mg IM Q6H PRN 04/18/22 Dicyclomine [Bentyl] 20 mg PO TID PRN #30 tablet 04/30/22 Apixaban [Eliquis] 5 mg PO BID 05/29/22 Spironolactone [Aldactone] 50 mg PO DAILY 06/11/22 busPIRone HCl [Buspar] 5 mg PO BID 06/11/22 Bumetanide [BUMEX] 2 mg PO DAILY 06/24/22 Zonisamide [Zonegran] 100 mg PO Q12HR 30 Days #60 cap 07/26/22 Lidocaine 5% Patch [Lidoderm 5% Patch] 1 patch TRANSDERM DAILY PRN 08/26/22 Fludrocortisone [Florinef] 0.1 mg PO DAILY 09/20/22 Midodrine [ProAmatine] 5 mg PO TID PRN 10/29/22 Lacosamide [Vimpat] 50 mg PO BID tab 11/05/22 Ondansetron [Zofran] 4 mg PO Q8H PRN 11/29/22 Nystatin 100,000 Unit/gm Powd [Mycostatin Powder] 1 applic TOPICAL BID PRN 11/21 Sucralfate [Carafate] 1 gm PO ACHS 01/06/23 Ipratropium Nebulized [Atrovent Nebulized 0.2 MG/ML] 0.5 mg INHALATION QID PRN 01/12/23 Potassium Chloride ER [K-Dur 20] 20 meq PO DAILY 01/12/23 Bumetanide [Bumex] 1 mg PO HS 02/16/23 Famotidine 20 mg PO BID 02/16/23 HYDROcodone/APAP 10-325MG [[place] 10-325] 0.5 tab PO TID 02/16/23 Levalbuterol Nebulized [Xopenex Nebulized (Pediatric)] 0.31 mg INHALATION RT-BID 02/16/23 Meclizine [Antivert] 12.5 mg PO Q8H PRN 02/16/23 Metoprolol Succinate (ER) [Toprol Xl] 50 mg PO HS 02/16/23 Cyclobenzaprine [Flexeril] 5 mg PO TID PRN #15 tablet 03/02/23
[2023-03-08] MEDS: SERTRALINE 100 MG TAB PO SCH (10:48)
[2023-03-08] MEDS: FIDAXOMICIN 200 MG TABLET PO SCH ×2 (10:48→22:28)
[2023-03-08] MEDS: ZONISAMIDE 100 MG CAP PO SCH ×2 (13:00→21:54)
--- NOTE | 2023-03-08 14:39 | P.PN ---
Subjective Progress Note Date: 03/08/23 Principal diagnosis: C. 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 diff and did have diarrhea On today's evaluation that is 03/08/2023, the patient continues to be afebrile, the patient is breathing comfortably on room air and no need for supplemental oxygen, the patient denies any chest pain or cough , patient denies nausea/v omiting , no abdominal pain the patient diarrhea has slowed down still complaining of pain to the right upper jaw area Patient white count is 8.0 as of 03/05/2023, creatinine is 1.18 Objective - Vital Signs Vital signs: Vital Signs Temp 98.7 F 03/08/23 07:40 Pulse 70 03/08/23 07:40 Resp 19 03/08/23 07:40 BP 103/67 03/08/23 07:40 Pulse Ox 96 03/08/23 07:40 FiO2 Intake & Output 03/07/23 03/08/23 03/08/23 18:59 06:59 18:59 Intake Total 900 Balance 900 Intake: Intake, IV Titration 900 Amount Sodium Chloride 0.9% 1, 900 000 ml @ 75 mls/hr IV . [id number] [facility] Rx#:[id number] Other: # Voids 4 2 - Exam GENERAL DESCRIPTION: A middle-age female lying in bed in no distress HEENT: Right upper jaw no purulent drainage was noticed RESPIRATORY SYSTEM: Unlabored breathing , clear to auscultation anteriorly HEART: S1 S2 regular rate and rhythm , ABDOMEN: Soft , no tenderness EXTREMITIES: No edema feet - Labs CBC & Chem 7: 03/05/23 01:12 03/08/23 05:31 Labs: Abnormal Lab Results - Last 24 Hours (Table) 03/08/23 Range/Units 05:31 Chloride 110 H (98-107) mmol/L Creatinine 1.18 H (0.52-1.04) mg/dL Glucose 112 H (74-99) mg/dL Calcium 8.3 L (8.4-10.2) mg/dL Assessment and Plan (1) Clostridium difficile infection Current Visit: Yes Status: Acute Code(s): A49.8 - OTHER BACTERIAL INFECTIONS OF UNSPECIFIED SITE SNOMED Code(s): 342007279 Plan: 1patient presented to hospital with abdominal pain diarrhea with a recent outpatient stool for C. difficile positive possibly contribute to some of her symptoms especially with significant diarrhea and did have antibiotic exposure. 2patient with multiple antibiotic allergies that would limit the number of antibiotics safe to use. 3patient did have improvement in her diarrhea and will continue with oral Dificid 200 g p.o. twice a day 4- patient is complaining of pain and some purulent drainage to the right upper jaw, x-ray of the mandible was negative did have significant discomfort and swelling to the area patient to have multiple antibiotic ALLERGIES, patient to continue with Invanz and recheck a CBC and CRP with a.m. lab Dictation was produced using [employer] dictation software. please excuse any grammatical, word or spelling errors. Time with Patient: Less than 30
[2023-03-08] MEDS: ERTAPENEM 1 GM in SODIUM CHLORIDE 0.9% 50 ML IVPB SCH (15:04)
--- NOTE | 2023-03-08 15:16 | P.PN ---
Subjective Progress Note Date: 03/08/23 I am following up with patient and was notified that the patient's was not receiving Dilaudid because of confusion and the patient was very upset that she was not receiving her pain medication and per the nursing staff she was threatening and yelling at the staff. No further seizure activity noted. She c ontinues to refuse routine EEG. The primary attending started on Keppra but she stated that she cannot tolerate Keppra and she stated that her home Zonisamide for her seizures was not started that's why she had a breakthrough seizure earlier this admission. Objective - Vital Signs Vital signs: Vital Signs Temp 98.5 F 03/08/23 13:42 Pulse 77 03/08/23 13:42 Resp 19 03/08/23 13:42 BP 107/69 03/08/23 13:42 Pulse Ox 91 L 03/08/23 13:42 FiO2 Intake & Output 03/07/23 03/08/23 03/08/23 18:59 06:59 18:59 Intake Total 900 Balance 900 Weight 68.492 kg Intake: Intake, IV Titration 900 Amount Sodium Chloride 0.9% 1, 900 000 ml @ 75 mls/hr IV . [id number] [facility] Rx#:[id number] Other: # Voids 4 2 - Exam GENERAL: The patient is lying in bed and is not in acute distress. NEUROLOGICAL: Higher mental function: The patient is awake, alert, oriented to self, place and time. Patient is following commands. No aphasia and no neglect. Cranial nerves: The pupils are round, equal and reactive to light and accommodation. Visual pierce are full to confrontation throughout. Extraocular movement is intact no nystagmus is noted. Facial sensation is normal to touch throughout. The facial strength is normal throughout. Hearing is normal bilaterally to hand rub. Tongue is midline and moved [id number] without any difficulty. No dysarthria is noted. Shoulder shrug is normal bilaterally. Motor: The strength is 5 over 5 throughout. Normal tone and bulk. Cerebellum: Normal finger to nose bilaterally. Sensation: Decrease sensation to touch over the right lower. Otherwise normal to touch throughout. Reflexes (right/left):2+ throughout Plantars are downgoing bilaterally. Some of the work-up consisted of: patient had a CT of the head today which is reported as no acute process.I personally reviewed this the head and I agree there is no acute or subacute ischemia. There is no bleed was able to appreciate. - Labs CBC & Chem 7: 03/05/23 01:12 03/08/23 05:31 Labs: Abnormal Lab Results - Last 24 Hours (Table) 03/08/23 Range/Units 05:31 Chloride 110 H (98-107) mmol/L Creatinine 1.18 H (0.52-1.04) mg/dL Glucose 112 H (74-99) mg/dL Calcium 8.3 L (8.4-10.2) mg/dL Assessment and Plan Assessment: this is a 57-year-old woman with history of nonepileptic seizure multiple other medical issues who presented emergency department that because she has a positive C. diff. She reported she had a seizure-like activity yesterday. patient is known to me and I personally saw the patient last on 11/04/2022 and she had a remote normal routine EEG. Today she refuses to pursue with that the EEG. Breakthrough seizure is likely nonepileptic in nature. cannot rule out breakthrough seizure due to underlying C. diff and possibly since her home AED was not started. She is back to baseline. she is currently refusing the repeat EEG History of nonepileptic seizures recent positive C. diff History of lupus History of chronic back pain History of bacterial endocarditis of tricuspid replacement History of pulmonary was a History of permanent pacemaker due to complete heart block History of antiphospholipid antibody History of chronic renal insufficiency history of pyoderma gangrenosum Depression PTSD Anxiety Polypharmacy Plan: patient had a CT of the head ordered by the primary which was unremarkable She is refusing EEG. The primary has started her on Keppra 500mg IV every 12 hours but she states she cannot tolerate it so was discontinued. I started her on her home Zonisamide 100mg every 12 hours. I feel the patient is on polypharmacy. She is requesting pain medication and is upset with staff members she not receiving pain medications. Other recommend the patient to follow-up with a neurologist as an outpatient for her seizure as well as I recommend she follows up with psychiatrist and she was reemphasized this a few times today. We'll defer the rest of the medical measure the primary and other specialists The plan discussed with the patient and her nurse There is no further neurological work-up. Will sign off. Please reconsult if needed. Time with Patient: Less than 30
[2023-03-08] MEDS: CYCLOBENZAPRINE 5 MG TAB PO PRN (16:04)
--- NOTE | 2023-03-08 16:27 | P.HPIM ---
History of Present Illness H&P Date: 03/05/23 Chief Complaint: Abdominal pain off and on for several months with worsening last few days Data predominantly has been obtained from the chart The patient is a 57-year-old white female, with a very complicated past medical and surgical history. 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 Most recently this was in early 01/22. She has also had admissions since with complains of intractable lower abdominal pain, nausea and vomiting. She has had multiple CT scans of the abdomen and pelvis, done without contrast. Scan from 02/16/23 mentioned a hypodensity in the uncinate process of the pancreas, with further, more definite imaging recommended. Noncontrast CT scans from 03/01/23, as well as from early 01/22 showed no abnormality the pancreas. Patient was sent in this time, she was having diarrhea and stool studies as an outpatient were positive for C. diff. The patient had tumor markers done that showed mild elevation of CA 19-9 and 48.2. She denied any prior history of malignancy. She states that she has had multiple PEs in the past, and was told that she has antiphospholipid antibody syndrome, and the [facility]. However on further questioning, the patient stated that she was told that the testing was not definitive as she was on anticoagulation and therefore the same could not be ruled in or rule out. She apparently has failed Coumadin previously, and had major bleeding on Xarelto. However she has been on Eliquis now for 4-5 years with reasonable tolerance, and no failure. According to her she has never been diagnosed with DVTs in her extremities. 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 She denied any history of significant alcohol use. She is status post cholecystectomy. 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 Lately in last few days she has ongoing diarrhea and no stool and C. diff just also again came back positive infectious disease services has been consulted as well with initiation of oral deficit patient is on contact isolation Review of Systems All systems: negative Past Medical History Past Medical History: Blood Disorder, Pulmonary Embolus (PE), Renal Disease, Seizure Disorder Additional Past Medical History / Comment(s): Antiphospholipid antibody syndrome which causes clots and bleeding, multiple PEs, R renal artery embolism/now atrophic, CKD stage III, hypotension, hypokalemia especially w/stress, lupus, pyoderm grangrenosum, decreased pituitary function pt states d/t clot, migraines, chonic cervical/back pain, herniated discs, RLS, vertigo, recent adm. for low K+. lupus, pancreatic mass History of Any Multi-Drug Resistant Organisms: C-DIFF Date of last positivie culture/infection: 03/02/23 MDRO Source:: Stool Past Surgical History: Back Surgery, Breast Surgery, Cardiac Valve Replacement, Section, Cholecystectomy, Heart Catheterization, Hysterectomy, Pacemaker Additional Past Surgical History / Comment(s): pacemaker d/t bradycardia/hypotension with last one place in 2013 in [place], [place], 3 lower back surgeries, bilateral breast reduction. 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 She is independent. Smoking Status: Never smoker Past Alcohol Use History: None Reported Past Drug Use History: None Reported Additional Drug Use History / Comment(s): Marijuana use prn per pt. - Past Family History Mother Additional Family Medical History / Comment(s): Mother at the age of 49 yrs after surgery for silicon breast implants with a leak that caused ARDS and DIC per pt Father Family Medical History: Cancer, Hyperlipidemia, Hypertension Additional Family Medical History / Comment(s): Father is a colon cancer s urvivor. Medications and Allergies Home Medications Medication Instructions Recorded Confirmed Type Atorvastatin [Lipitor] 40 mg PO HS 09/24/21 03/05/23 History Cholestyramine (with Sugar) 4 gm PO DAILY PRN 09/24/21 03/05/23 History [Cholestyramine Packet] Gabapentin 300 mg PO QID 09/24/21 03/05/23 History Sertraline [Zoloft] 200 mg PO DAILY 09/24/21 03/05/23 History Ubrogepant [Ubrelvy] 100 mg PO BID PRN 09/24/21 03/05/23 History rOPINIRole HCL [Requip] 2 mg PO HS 09/24/21 03/05/23 History Esomeprazole Magnesium [NexIUM] 40 mg PO DAILY 03/16/22 03/05/23 History Botox 200unit Injection 1 dose INJ Q84D 04/02/22 03/05/23 History Diphenhydramine 50mg/Ml Vial 50 mg IM Q6H PRN 04/18/22 03/05/23 History Dicyclomine [Bentyl] 20 mg PO TID PRN #30 tablet 04/30/22 03/05/23 Rx Apixaban [Eliquis] 5 mg PO BID 05/29/22 03/05/23 History Spironolactone [Aldactone] 50 mg PO DAILY 06/11/22 03/05/23 History busPIRone HCl [Buspar] 5 mg PO BID 06/11/22 03/05/23 History Bumetanide [BUMEX] 2 mg PO DAILY 06/24/22 03/05/23 History Zonisamide [Zonegran] 100 mg PO Q12HR 30 Days #60 cap 07/26/22 03/05/23 Rx Lidocaine 5% Patch [Lidoderm 5% 1 patch TRANSDERM DAILY PRN 08/26/22 03/05/23 History Patch] Fludrocortisone [Florinef] 0.1 mg PO DAILY 09/20/22 03/05/23 History Midodrine [ProAmatine] 5 mg PO TID PRN 10/29/22 03/05/23 History Lacosamide [Vimpat] 50 mg PO BID tab 11/05/22 03/05/23 Rx Ondansetron [Zofran] 4 mg PO Q8H PRN 11/29/22 03/05/23 History Nystatin 100,000 Unit/gm Powd 1 applic TOPICAL BID PRN 01/06/23 03/05/23 History [Mycostatin Powder] Sucralfate [Carafate] 1 gm PO ACHS 01/06/23 03/05/23 History Ipratropium Nebulized [Atrovent 0.5 mg INHALATION QID PRN 01/12/23 03/05/23 History Nebulized 0.2 MG/ML] Potassium Chloride ER [K-Dur 20] 20 meq PO DAILY 01/12/23 03/05/23 History Bumetanide [Bumex] 1 mg PO HS 02/16/23 03/05/23 History Famotidine 20 mg PO BID 02/16/23 03/05/23 History HYDROcodone/APAP 10-325MG [Gobler 0.5 tab PO TID 02/16/23 03/05/23 History 10-325] Levalbuterol Nebulized [Xopenex 0.31 mg INHALATION RT-BID 02/16/23 03/05/23 History Nebulized (Pediatric)] Meclizine [Antivert] 12.5 mg PO Q8H PRN 02/16/23 03/05/23 History Metoprolol Succinate (ER) [Toprol 50 mg PO HS 02/16/23 03/05/23 History Xl] Cyclobenzaprine [Flexeril] 5 mg PO TID PRN #15 tablet 03/02/23 03/05/23 Rx Allergies Allergy/AdvReac Type Severity Reaction Status Date / Time Penicillins Allergy Severe Anaphylaxis Verified 03/05/23 13:48 vancomycin Allergy Severe Swelling Verified 03/05/23 13:48 in lips albuterol [From Ventolin HFA] Allergy Rapid Verified 03/05/23 13:48 Heart Rate cefepime Allergy Swelling Verified 03/05/23 13:48 clindamycin Allergy Anaphylaxis Verified 03/05/23 13:48 dexamethasone [From Decadron] Allergy Unknown Verified 03/05/23 13:48 Influenza Virus Vaccines Allergy Unknown Verified 03/05/23 13:48 latex Allergy Unknown Verified 03/05/23 13:48 morphine Allergy Unknown Verified 03/05/23 13:48 prochlorperazine Allergy Unknown Verified 03/05/23 13:48 [From Compazine] [id number] AdvReac Confusion, Verified 03/05/23 13:48 [From Emgality Pen] increased blood pressure metoclopramide [From Reglan] AdvReac "felt like Verified 03/05/23 13:48 I needed to jump out of my skin" Physical Exam Vitals: Vital Signs Temp Pulse Pulse Resp BP BP Pulse Ox 03/05/23 19:55 98.5 F 79 18 128/76 94 L 03/05/23 14:09 98.7 F 74 18 113/70 93 L 03/05/23 07:40 97.6 F 71 17 115/77 99 03/05/23 04:53 66 18 101/68 97 03/05/23 01:26 99.3 F 78 17 121/75 100 Intake and Output 03/05/23 03/05/23 03/06/23 14:59 22:59 05:59 Other: Voiding Method Toilet # Bowel Movements 0 Weight 68.492 kg - Constitutional General appearance: average body habitus, cooperative, disheveled - EENT Eyes: EOMI, PERRLA ENT: normal oropharynx Ears: bilateral: normal - Neck Carotids: bilateral: upstroke normal - Respiratory Respiratory: bilateral: CTA - Cardiovascular Rhythm: regular Heart sounds: normal: S1, S2 - Gastrointestinal General gastrointestinal: hyperactive bowel sounds, normal bowel sounds - Neurologic Neurologic: CNII-XII intact - Musculoskeletal Musculoskeletal: gait normal, generalized weakness, strength equal bilaterally - Psychiatric Psychiatric: A&O x's 3, appropriate affect Results CBC & Chem 7: 03/05/23 01:12 03/08/23 05:31 Labs: Abnormal Lab Results - Last 24 Hours (Table) 03/05/23 03/05/23 03/05/23 Range/Units 01:12 01:12 03:00 RDW 16.7 H (11.5-15.5) % BUN 24 H (7-17) mg/dL Creatinine 1.33 H (0.52-1.04) mg/dL Urine Appearance Cloudy H (Clear) Ur Leukocyte Esterase Small H (Negative) Urine WBC 6 H (0-5) /hpf Urine Mucus Rare H (None) /hpf CT scan - abdomen: report reviewed, image reviewed Thrombosis Risk Factor Assmnt - Choose All That Apply Any of the Below Risk Factors Present?: Yes Each Factor Represents 1 point: Age 41-60 years, Obesity (BMI >25) Other Risk Factors: Yes Each Risk Factor Represents 3 Points: History of DVT/PE Other congenital or acquired thrombophilia - If yes, enter type in comment: No Thrombosis Risk Factor Assessment Total Risk Factor Score: 5 Thrombosis Risk Factor Assessment Level: High Risk Assessment and Plan Assessment: C. 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 with liquids with diagnosis of antiphospholipid antibody syndrome History of seizure disorder History of migraine headaches Chronic cervical and back pain with herniated disks Restless leg syndrome Lupus Plan: Consult oncology for chemo markers and mass in the uncinate process of pancreas further recommendations pending Continue deficit for C. difficile colitis with history of recurrent exacerbation Continue anticoagulation Continue anti-seizure medications Pain control patient requesting Dilaudid, has oral pain medicine is not helping will do a trial however start tapering it down as tolerated Medicines reviewed from home will resume Time with Patient: Greater than 30
--- NOTE | 2023-03-08 16:30 | P.PN ---
Subjective Progress Note Date: 03/06/23 Principal diagnosis: C. 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 with liquids with diagnosis of antiphospholipid antibody syndrome History of seizure disorder History of migraine headaches Chronic cervical and back pain with herniated disks Restless leg syndrome Lupus 03/06/2023, diarrhea symptoms improve, less pain in the abdomen, however he still have issues associated with back pain and neck pain patient anxious and restless at times, oncology as well as infectious disease has been evaluated patient further recommendation pending likely consideration of MRI for pancreatic mass Data predominantly has been obtained from the chart The patient is a 57-year-old white female, with a very complicated past medical and surgical history. 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 Most recently this was in early 01/22. She has also had admissions since with complains of intractable lower abdominal pain, nausea and vomiting. She has had multiple CT scans of the abdomen and pelvis, done without contrast. Scan from 02/16/23 mentioned a hypodensity in the uncinate process of the pancreas, with further, more definite imaging recommended. Noncontrast CT scans from 03/01/23, as well as from early 01/22 showed no abnormality the pancreas. Patient was sent in this time, she was having diarrhea and stool studies as an outpatient were positive for C. diff. The patient had tumor markers done that showed mild elevation of CA 19-9 and 48.2. She denied any prior history of malignancy. She states that she has had multiple PEs in the past, and was told that she has antiphospholipid antibody syndrome, and the [facility]. However on further questioning, the patient stated that she was told that the testing was not definitive as she was on anticoagulation and therefore the same could not be ruled in or rule out. She apparently has failed Coumadin previously, and had major bleeding on Xarelto. However she has been on Eliquis now for 4-5 years with reasonable tolerance, and no failure. According to her she has never been diagnosed with DVTs in her extremities. 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 She denied any history of significant alcohol use. She is status post cholecystectomy. 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 Lately in last few days she has ongoing diarrhea and no stool and C. diff just also again came back positive infectious disease services has been consulted as well with initiation of oral deficit patient is on contact isolation Objective - Vital Signs Vital signs: Vital Signs Temp 98.5 F 03/06/23 07:25 Pulse 66 03/06/23 07:25 Resp 18 03/06/23 07:25 BP 105/57 03/06/23 07:25 Pulse Ox 98 03/06/23 07:25 FiO2 Intake & Output 03/05/23 03/06/23 03/06/23 19:59 06:59 18:59 Weight Other: Voiding Method # Voids # Bowel Movements - Exam - Constitutional General appearance: average body habitus, cooperative, disheveled - EENT Eyes: EOMI, PERRLA ENT: normal oropharynx Ears: bilateral: normal - Neck Carotids: bilateral: upstroke normal - Respiratory Respiratory: bilateral: CTA - Cardiovascular Rhythm: regular Heart sounds: normal: S1, S2 - Gastrointestinal General gastrointestinal: hyperactive bowel sounds, normal bowel sounds - Neurologic Neurologic: CNII-XII intact - Musculoskeletal Musculoskeletal: gait normal, generalized weakness, strength equal bilaterally - Psychiatric Psychiatric: A&O x's 3, appropriate affect - Labs CBC & Chem 7: 03/05/23 01:12 03/08/23 05:31 Assessment and Plan Assessment: C. 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 with liquids with diagnosis of antiphospholipid antibody syndrome History of seizure disorder History of migraine headaches Chronic cervical and back pain with herniated disks Restless leg syndrome Lupus Plan: Consult oncology for chemo markers and mass in the uncinate process of pancreas further recommendations pending Continue deficit for C. difficile colitis with history of recurrent exacerbation Continue anticoagulation Continue anti-seizure medications Pain control patient requesting Mireya, has oral pain medicine is not helping will do a trial however start tapering it down as tolerated Medicines reviewed from home will resume Time with Patient: Greater than 30
--- NOTE | 2023-03-08 16:34 | P.PN ---
Subjective Progress Note Date: 03/07/23 Principal diagnosis: C. 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 with liquids with diagnosis of antiphospholipid antibody syndrome History of seizure disorder History of migraine headaches Chronic cervical and back pain with herniated disks Restless leg syndrome Lupus 03/07/2023, patient had a seizure-like activity earlier this morning afterwards recommended to do a computed tomography scan, EEG, IV Keppra patient was in post ictal state throughout the day however later on the day she woke up and started asking for pain medicine becomes very agitated at this point of time consultation with pain management requested patient threatened to leave AMA, much more wide awake and alert low-dose Dilaudid has been started until pain service evaluated the patient, in addition patient eventually refused the IV Keppra as well as EEG neurology consultation 03/06/2023, diarrhea symptoms improve, less pain in the abdomen, however he still have issues associated with back pain and neck pain patient anxious and restless at times, oncology as well as infectious disease has been evaluated patient further recommendation pending likely consideration of MRI for pancreatic mass Data predominantly has been obtained from the chart The patient is a 57-year-old white female, with a very complicated past medical and surgical history. 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 Most recently this was in early 01/22. She has also had admissions since with complains of intractable lower abdominal pain, nausea and vomiting. She has had multiple CT scans of the abdomen and pelvis, done without contrast. Scan from 02/16/23 mentioned a hypodensity in the uncinate process of the pancreas, with further, more definite imaging recommended. Noncontrast CT scans from 03/01/23, as well as from early 01/22 showed no abnormality the pancreas. Patient was sent in this time, she was having diarrhea and stool studies as an outpatient were positive for C. diff. The patient had tumor markers done that showed mild elevation of CA 19-9 and 48.2. She denied any prior history of malignancy. She states that she has had multiple PEs in the past, and was told that she has antiphospholipid antibody syndrome, and the [facility]. However on further questioning, the patient stated that she was told that the testing was not definitive as she was on anticoagulation and therefore the same could not be ruled in or rule out. She apparently has failed Coumadin previously, and had major bleeding on Xarelto. However she has been on Eliquis now for 4-5 years with reasonable tolerance, and no failure. According to her she has never been diagnosed with DVTs in her extremities. 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 She denied any history of significant alcohol use. She is status post cholecystectomy. 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 Lately in last few days she has ongoing diarrhea and no stool and C. diff just also again came back positive infectious disease services has been consulted as well with initiation of oral deficit patient is on contact isolation Objective - Vital Signs Vital signs: Vital Signs Temp 97.6 F 03/07/23 13:50 Pulse 84 03/07/23 13:50 Resp 17 03/07/23 13:50 BP 156/70 03/07/23 13:50 Pulse Ox 97 03/07/23 13:50 FiO2 Intake & Output 03/06/23 03/07/23 03/07/23 18:59 06:59 18:59 Other: Voiding Method Toilet Toilet # Voids 3 0 - Exam - Constitutional General appearance: average body habitus, cooperative, disheveled - EENT Eyes: EOMI, PERRLA ENT: normal oropharynx Ears: bilateral: normal - Neck Carotids: bilateral: upstroke normal - Respiratory Respiratory: bilateral: CTA - Cardiovascular Rhythm: regular Heart sounds: normal: S1, S2 - Gastrointestinal General gastrointestinal: hyperactive bowel sounds, normal bowel sounds - Neurologic Neurologic: CNII-XII intact - Musculoskeletal Musculoskeletal: gait normal, generalized weakness, strength equal bilaterally - Psychiatric Psychiatric: A&O x's 3, appropriate affect - Labs CBC & Chem 7: 03/05/23 01:12 03/08/23 05:31 Labs: Abnormal Lab Results - Last 24 Hours (Table) 03/07/23 Range/Units 06:22 Est GFR (CKD-EPI) 40 L (>=60) Calcium 8.6 L (8.7-10.3) mg/dL Assessment and Plan Assessment: Acute seizure with postictal state neurology is evaluating the patient Chronic pain syndrome with demands for narcotic and Dilaudid pain management service has been consulted C. 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 with liquids with diagnosis of antiphospholipid antibody syndrome History of seizure disorder History of migraine headaches Chronic cervical and back pain with herniated disks Restless leg syndrome Lupus Plan: Consult oncology for chemo markers and mass in the uncinate process of pancreas further recommendations pending Continue deficit for C. difficile colitis with history of recurrent exacerbation Continue anticoagulation Continue anti-seizure medications Pain control patient requesting Mireya, has oral pain medicine is not helping will do a trial however start tapering it down as tolerated Medicines reviewed from home will resume Time with Patient: Greater than 30
--- NOTE | 2023-03-08 16:36 | P.PN ---
Subjective Progress Note Date: 03/08/23 Principal diagnosis: C. 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 with liquids with diagnosis of antiphospholipid antibody syndrome History of seizure disorder History of migraine headaches Chronic cervical and back pain with herniated disks Restless leg syndrome Lupus 03/08/2023, patient has a lot of issues with pain management, pain service has evaluated and recommended to DC the IV medicine maintain on by mouth medicines, patient continued to refuse EKG as well as IV Keppra, neurologist recommended to follow up as outpatient no other active intervention is needed 03/07/2023, patient had a seizure-like activity earlier this morning afterwards recommended to do a computed tomography scan, EEG, IV Keppra patient was in post ictal state throughout the day however later on the day she woke up and started asking for pain medicine becomes very agitated at this point of time consultat ion with pain management requested patient threatened to leave AMA, much more wide awake and alert low-dose Dilaudid has been started until pain service evaluated the patient, in addition patient eventually refused the IV Keppra as well as EEG neurology consultation 03/06/2023, diarrhea symptoms improve, less pain in the abdomen, however he still have issues associated with back pain and neck pain patient anxious and restless at times, oncology as well as infectious disease has been evaluated p atient further recommendation pending likely consideration of MRI for pancreatic mass Data predominantly has been obtained from the chart The patient is a 57-year-old white female, with a very complicated past medical and surgical history. 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 Most recently this was in early 01/22. She has also had admissions since with complains of intractable lower abdominal pain, nausea and vomiting. She has had multiple CT scans of the abdomen and pelvis, done without contrast. Scan from 02/16/23 mentioned a hypodensity in the uncinate process of the pancreas, with further, more definite imaging recommended. Noncontrast CT scans from 03/01/23, as well as from early 01/22 showed no abnormality the pancreas. Patient was sent in this time, she was having diarrhea and stool studies as an outpatient were positive for C. diff. The patient had tumor markers done that showed mild elevation of CA 19-9 and 48.2. She denied any prior history of malignancy. She states that she has had mu ltiple PEs in the past, and was told that she has antiphospholipid antibody syndrome, and the [facility]. However on further questioning, the patient stated that she was told that the testing was not definitive as she was on anticoagulation and therefore the same could not be ruled in or rule out. She apparently has failed Coumadin previously, and had major bleeding on Xarelto. However she has been on Eliquis now for 4-5 years with reasonable tolerance, and no failure. According to her she has never been diagnosed with DVTs in her extremities. 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 She denied any history of significant alcohol use. She is status post cholecystectomy. 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 Lately in last few days she has ongoing diarrhea and no stool and C. diff just also again came back positive infectious disease services has been consulted as well with initiation of oral deficit patient is on contact isolation Objective - Vital Signs Vital signs: Vital Signs Temp 98.6 F 03/08/23 16:28 Pulse 71 03/08/23 16:28 Resp 17 03/08/23 16:28 BP 125/83 03/08/23 16:28 Pulse Ox 97 03/08/23 16:28 FiO2 Intake & Output 03/07/23 03/08/23 03/08/23 18:59 06:59 18:59 Intake Total 900 Balance 900 Weight 68.492 kg Intake: Intake, IV Titration 900 Amount Sodium Chloride 0.9% 1, 900 000 ml @ 75 mls/hr IV . [id number] [facility] Rx#:[id number] Other: # Voids 4 2 - Exam - Constitutional General appearance: average body habitus, cooperative, disheveled - EENT Eyes: EOMI, PERRLA ENT: normal oropharynx Ears: bilateral: normal - Neck Carotids: bilateral: upstroke normal - Respiratory Respiratory: bilateral: CTA - Cardiovascular Rhythm: regular Heart sounds: normal: S1, S2 - Gastrointestinal General gastrointestinal: hyperactive bowel sounds, normal bowel sounds - Neurologic Neurologic: CNII-XII intact - Musculoskeletal Musculoskeletal: gait normal, generalized weakness, strength equal bilaterally - Psychiatric Psychiatric: A&O x's 3, appropriate affect - Labs CBC & Chem 7: 03/05/23 01:12 03/08/23 05:31 Labs: Abnormal Lab Results - Last 24 Hours (Table) 03/08/23 Range/Units 05:31 Chloride 110 H (98-107) mmol/L Creatinine 1.18 H (0.52-1.04) mg/dL Glucose 112 H (74-99) mg/dL Calcium 8.3 L (8.4-10.2) mg/dL Assessment and Plan Assessment: Acute seizure with postictal state neurology is evaluating the patient no new intervention patient is off of post ictal status composed Chronic pain syndrome with demands for narcotic and Dilaudid pain management service has been consulted recommended to stop on IV pain medicine maintain on by mouth medicine C. 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 with liquids with diagnosis of antiphospholipid antibody syndrome History of seizure disorder History of migraine headaches Chronic cervical and back pain with herniated disks Restless leg syndrome Lupus Plan: Consult oncology for chemo markers and mass in the uncinate process of pancreas further recommendations pending Continue deficit for C. difficile colitis with history of recurrent exacerbation Continue anticoagulation Continue anti-seizure medications Pain control patient requesting Dilaudid, has oral pain medicine is not helping will do a trial however start tapering it down as tolerated Medicines reviewed from home will resume Time with Patient: Greater than 30
[2023-03-08] MEDS: HYDROcodone/APAP 10-325MG 1 EACH TAB PO PRN (21:48)
[2023-03-08] MEDS: ATORVASTATIN 40 MG TAB PO SCH (21:53)
[2023-03-09] MEDS: SODIUM CHLORIDE 0.9% 1,000 ML IV SCH ×2 (03:42→21:58)
[2023-03-09] MEDS: HYDROcodone/APAP 10-325MG 1 EACH TAB PO PRN ×3 (06:36→18:01)
[2023-03-09] MEDS: CYCLOBENZAPRINE 5 MG TAB PO PRN (06:36)
[2023-03-09] MEDS: APIXABAN 5 MG TAB PO SCH ×2 (08:39→20:01)
[2023-03-09] MEDS: FLUDROCORTISONE 0.1 MG TAB PO SCH (08:40)
[2023-03-09] MEDS: BUMETANIDE 1 MG TAB PO SCH ×2 (08:40→21:48)
[2023-03-09] MEDS: ZONISAMIDE 100 MG CAP PO SCH ×2 (08:40→21:48)
[2023-03-09] MEDS: SERTRALINE 100 MG TAB PO SCH (08:40)
[2023-03-09] MEDS: GABAPENTIN 300 MG CAP PO SCH ×4 (08:40→21:48)
[2023-03-09] MEDS: FAMOTIDINE 20 MG TAB PO SCH (08:40)
[2023-03-09] MEDS: busPIRone HCl 5 MG TAB PO SCH ×2 (08:40→20:01)
[2023-03-09] MEDS: FIDAXOMICIN 200 MG TABLET PO SCH ×2 (08:40→20:02)
[2023-03-09] MEDS: diphenhydrAMINE 50 MG/ML 1 ML VIAL IVP PRN ×2 (08:40→20:02)
[2023-03-09] MEDS: ONDANSETRON 4 MG/2 ML VIAL IVP PRN (09:34)
[2023-03-09 10:11] LABS: Anisocytosis Slight; Basophils % (A) 0 %; Eosinophils # (A) 0.2 k/uL (0-0.7); Eosinophils % (A) 4 %; HCT 33.4 % (34.0-46.0); HGB 10.7 gm/dL (11.4-16.0); Hypochromasia Moderate; Lymphocytes # (A) 0.9 k/uL (1.0-4.8); Lymphocytes % (A) 19 %; MCH 27.2 pg (25.0-35.0); MCHC 31.9 g/dL (31.0-37.0); MCV 85.2 fL (80.0-100.0); Mean Platelet Volume 9.6; Monocytes # (A) 0.3 k/uL (0-1.0); Monocytes % (A) 6 %; Neutrophils # (A) 3.1 k/uL (1.3-7.7); Neutrophils % (A) 69 %; Platelet Count 188 k/uL (150-450); RBC 3.92 m/uL (3.80-5.40); WBC 4.5 k/uL (3.8-10.6)
[2023-03-09] MEDS: MAG HYDROX/AL HYDROX/SIMETH 30 ML CUP PO PRN (10:55)
[2023-03-09] MEDS: ERTAPENEM 1 GM in SODIUM CHLORIDE 0.9% 50 ML IVPB SCH (12:25)
[2023-03-09 12:42] LABS: African American GFR (CKD) 54 (>60 ml/min/1.73 sqM); Anion Gap 10 mmol/L; Blood Urea Nitrogen 10 mg/dL (7-17); C Reactive Protein 4.3 mg/dL (<1.0); Calcium 8.5 mg/dL (8.4-10.2); Carbon Dioxide 27 mmol/L (22-30); Chloride 104 mmol/L (98-107); Glucose 85 mg/dL (74-99); Non-African American GFR(CKD) 46 (>60 ml/min/1.73 sqM); Potassium 3.2 mmol/L (3.5-5.1); Sodium 141 mmol/L (137-145)
[2023-03-09] MEDS ORDERED: ONDANSETRON 4 MG TAB PO PRN (17:54)
[2023-03-09] MEDS ORDERED: BUMETANIDE 0.25 MG/ML 4 ML VIAL IVP STA (19:01)
[2023-03-09] MEDS: DICYCLOMINE 20 MG TAB PO PRN (20:01)
[2023-03-09] MEDS: ATORVASTATIN 40 MG TAB PO SCH (20:01)
[2023-03-09] MEDS ORDERED: diphenhydrAMINE 50 MG/ML 1 ML VIAL IVP ONE (21:57)
[2023-03-10] MEDS: HYDROcodone/APAP 10-325MG 1 EACH TAB PO PRN ×4 (00:20→21:28)
[2023-03-10] MEDS: CYCLOBENZAPRINE 5 MG TAB PO PRN ×3 (00:20→21:28)
[2023-03-10] MEDS: MAG HYDROX/AL HYDROX/SIMETH 30 ML CUP PO PRN (00:25)
[2023-03-10] MEDS: diphenhydrAMINE 50 MG/ML 1 ML VIAL IVP PRN ×4 (02:50→18:40)
[2023-03-10] MEDS: SODIUM CHLORIDE 0.9% 1,000 ML IV SCH ×2 (05:50→14:16)
[2023-03-10] MEDS: GABAPENTIN 300 MG CAP PO SCH ×4 (08:23→21:27)
[2023-03-10] MEDS: SERTRALINE 100 MG TAB PO SCH (08:23)
[2023-03-10] MEDS: APIXABAN 5 MG TAB PO SCH ×2 (08:23→21:28)
[2023-03-10] MEDS: FAMOTIDINE 20 MG TAB PO SCH (08:23)
[2023-03-10] MEDS: busPIRone HCl 5 MG TAB PO SCH ×2 (08:23→21:28)
[2023-03-10] MEDS: FIDAXOMICIN 200 MG TABLET PO SCH (08:24)
[2023-03-10] MEDS: BUMETANIDE 1 MG TAB PO SCH ×2 (08:24→21:29)
[2023-03-10] MEDS: FLUDROCORTISONE 0.1 MG TAB PO SCH (08:24)
[2023-03-10] MEDS: ZONISAMIDE 100 MG CAP PO SCH ×2 (08:25→21:29)
--- NOTE | 2023-03-10 11:24 | P.PN ---
Subjective Progress Note Date: 03/09/23 Principal diagnosis: C. 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 diff and did have diarrhea On today's evaluation that is 03/09/2023, the patient remains to be afebrile, the patient is breathing comfortably on room air and denies any shortness of breath, the patient denies any chest pain or cough , patient denies abdominal p ain and no nausea/vomiting , and diarrhea slowed down, the patient pain to the right upper jaw area has decreased in intensity, no new symptoms Patient white count is 4.5, creatinine is 1.28 Objective - Vital Signs Vital signs: Vital Signs Temp 97.5 F L 03/09/23 07:13 Pulse 69 03/09/23 07:13 Resp 18 03/09/23 07:13 BP 117/69 03/09/23 07:13 Pulse Ox 99 03/09/23 07:13 FiO2 Intake & Output 03/08/23 03/09/23 03/09/23 18:59 06:59 18:59 Intake Total 450 Balance 450 Weight 68.492 kg Intake: Oral 450 Other: # Voids 5 3 # Bowel Movements 1 - Exam GENERAL DESCRIPTION: A middle-age female lying in bed in no distress HEENT: Right upper jaw no purulent drainage was noticed RESPIRATORY SYSTEM: Unlabored breathing , clear to auscultation anteriorly HEART: S1 S2 regular rate and rhythm , ABDOMEN: Soft , no tenderness EXTREMITIES: No edema feet - Labs CBC & Chem 7: 03/09/23 08:16 03/10/23 07:21 Labs: Abnormal Lab Results - Last 24 Hours (Table) 03/09/23 Range/Units 08:16 Hgb 10.7 L (11.4-16.0) gm/dL Hct 33.4 L (34.0-46.0) % RDW 17.0 H (11.5-15.5) % Lymphocytes # 0.9 L (1.0-4.8) k/uL Assessment and Plan (1) Clostridium difficile infection Current Visit: Yes Status: Acute Code(s): A49.8 - OTHER BACTERIAL INFECTIONS OF UNSPECIFIED SITE SNOMED Code(s): 830311053 Plan: 1patient presented to hospital with abdominal pain diarrhea with a recent outpa tient stool for C. difficile positive possibly contribute to some of her symptoms especially with significant diarrhea and did have antibiotic exposure. 2patient with multiple antibiotic allergies that would limit the number of antibiotics safe to use. 3patient did have improvement in her diarrhea and will continue with oral Dificid 200 g p.o. twice a day to finish a ten-day course of therapy 4- patient is complaining of pain and some purulent drainage to the right upper jaw, x-ray of the mandible was negative did have significant discomfort and swelling to the area patient to have multiple antibiotic ALLERGIES, patient to continue with Invanz however can be discontinued after tomorrow's dose and no need for IV antibiotics on discharge Dictation was produced using [employer] dictation software. please excuse any grammatical, word or spelling errors. Time with Patient: Less than 30
--- NOTE | 2023-03-10 11:27 | P.PN ---
Subjective Progress Note Date: 03/10/23 Principal diagnosis: C. 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 diff and did have diarrhea On today's evaluation that is 03/10/2023, the patient denies any fever or any chills, the patient is breathing comfortably on room air and no need for supplemental oxygen, the patient denies any chest pain, cough or sputum production, patient denies abdominal pain however has been complaining of worsening diarrhea since last night with multiple episode denies any blood or mucus in the stool patient pain and discomfort to the right upper jaw has improved Patient white count is 4.5, creatinine is 1.28 as of yesterday no CBC was done today Objective - Vital Signs Vital signs: Vital Signs Temp 98.1 F 03/10/23 07:13 Pulse 84 03/10/23 07:13 Resp 18 03/10/23 07:13 BP 130/78 03/10/23 07:13 Pulse Ox 99 03/10/23 07:13 FiO2 Intake & Output 03/09/23 03/10/23 03/10/23 18:59 06:59 18:59 Other: Voiding Method Toilet # Voids 5 2 1 # Bowel Movements 1 - Exam GENERAL DESCRIPTION: A middle-age female lying in bed in no distress HEENT: Right upper jaw no purulent drainage was noticed RESPIRATORY SYSTEM: Unlabored breathing , clear to auscultation anteriorly HEART: S1 S2 regular rate and rhythm , ABDOMEN: Soft , no tenderness EXTREMITIES: No edema feet - Labs CBC & Chem 7: 03/09/23 08:16 03/10/23 07:21 Labs: Abnormal Lab Results - Last 24 Hours (Table) 03/09/23 03/09/23 Range/Units 08:16 08:16 Lymphocytes # 0.9 L (1.0-4.8) k/uL Potassium 3.2 L (3.5-5.1) mmol/L Creatinine 1.28 H (0.52-1.04) mg/dL C-Reactive Protein 4.3 H (<1.0) mg/dL Assessment and Plan (1) Clostridium difficile infection Current Visit: Yes Status: Acute Code(s): A49.8 - OTHER BACTERIAL INFECTIONS OF UNSPECIFIED SITE SNOMED Code(s): 948603409 Plan: 1patient presented to hospital with abdominal pain diarrhea with a recent o utpatient stool for C. difficile positive possibly contribute to some of her symptoms especially with significant diarrhea and did have antibiotic exposure. 2patient with multiple antibiotic allergies that would limit the number of antibiotics safe to use. 3- patient is complaining of pain and some purulent drainage to the right upper jaw, x-ray of the mandible was negative did have significant discomfort and swelling to the area patient to have multiple antibiotic ALLERGIES, patient received a short course of Invanz with overall improvement in her symptoms will be discontinued because of worsening her diarrhea 4-patient with a C. diff colitis and did have a high outpatient co-pay for defic id, however the patient is unable to afford, the patient ALLERGY to vancomycin was lip swelling however most of the oral vancomycin is not absorbed and hopefully will be safe patient wants to try we will start on vancomycin oral 125 mg every 6 hours and if the patient is able to tolerate it then plan will be to finish therapy with oral vancomycin Dictation was produced using [employer] dictation software. please excuse any grammatical, word or spelling errors. Time with Patient: Greater than 30
[2023-03-10] MEDS ORDERED: HYDROmorphone 1 MG/ML 1 ML SYRINGE IVP STA (11:28)
[2023-03-10] MEDS: DICYCLOMINE 20 MG TAB PO PRN (11:37)
[2023-03-10] MEDS: VANCOMYCIN 125 MG CAPSULE PO SCH ×2 (13:41→17:51)
[2023-03-10] MEDS: ATORVASTATIN 40 MG TAB PO SCH (21:28)
[2023-03-10] MEDS: CHOLESTYRAMINE (WITH SUGAR) 4 GM PACKET PO SCH (21:30)
[2023-03-11] MEDS: DICYCLOMINE 20 MG TAB PO PRN (00:12)
[2023-03-11] MEDS: diphenhydrAMINE 25 MG CAP PO PRN ×3 (00:12→11:31)
[2023-03-11] MEDS: VANCOMYCIN 125 MG CAPSULE PO SCH ×4 (00:13→12:32)
--- NOTE | 2023-03-11 08:45 | PN ---
PROGRESS NOTE SUBJECTIVE: White female came to the hospital due to worsening diarrhea, C. diff colitis, not responding to medications. Temperature 98.1, pulse 84, respiratory rate 18, blood pressure 130/78, O2 sat is 99%. OBJECTIVE: CARDIOVASCULAR: S1, S2. LUNGS: Transmitted upper sounds. GI: Increased bowel sounds x4. LABORATORY DATA: Potassium 3.2, creatinine 1.28. Clostridium difficile infection. Multiple issues including lupus, COPD, asthma. Multiple antibiotic allergies. Received a short course of secondary to diarrhea, C difficile colitis, however, the patient is unable to afford it. The patient has allergy to vancomycin with lip swelling; however, most of the oral vancomycin is not absorbed , so we are going to start her on vancomycin 125 every 6. PROGNOSIS: Guarded. MMODL / IJN: [id number] /
[2023-03-11] MEDS: APIXABAN 5 MG TAB PO SCH (09:44)
[2023-03-11] MEDS: GABAPENTIN 300 MG CAP PO SCH ×2 (09:45→12:32)
[2023-03-11] MEDS: busPIRone HCl 5 MG TAB PO SCH (09:45)
[2023-03-11] MEDS: SERTRALINE 100 MG TAB PO SCH (09:45)
[2023-03-11] MEDS: FAMOTIDINE 20 MG TAB PO SCH (09:45)
[2023-03-11] MEDS: FLUDROCORTISONE 0.1 MG TAB PO SCH (10:00)
[2023-03-11] MEDS: ZONISAMIDE 100 MG CAP PO SCH (10:00)
[2023-03-11] MEDS: BUMETANIDE 1 MG TAB PO SCH (10:00)
[2023-03-11 10:05] LABS: ALT 27 U/L (4-34); AST 40 U/L (14-36); African American GFR (CKD) 48 (>60 ml/min/1.73 sqM); Albumin 3.7 g/dL (3.5-5.0); Albumin/Globulin Ratio 1.5; Alkaline Phosphatase 49 U/L (38-126); Anion Gap 8 mmol/L; Blood Urea Nitrogen 16 mg/dL (7-17); Calcium 9.1 mg/dL (8.4-10.2); Carbon Dioxide 27 mmol/L (22-30); Chloride 105 mmol/L (98-107); Globulin 2.5 g/dL; Glucose 82 mg/dL (74-99); Non-African American GFR(CKD) 42 (>60 ml/min/1.73 sqM); Sodium 140 mmol/L (137-145); Total Bilirubin 0.4 mg/dL (0.2-1.3); Total Protein 6.2 g/dL (6.3-8.2)
[2023-03-11 10:06] LABS: Potassium 4.8 mmol/L (3.5-5.1)
[2023-03-11 10:55] LABS: Anisocytosis Slight; Basophils % (A) 0 %; Eosinophils # (A) 0.2 k/uL (0-0.7); Eosinophils % (A) 5 %; HCT 33.6 % (34.0-46.0); HGB 11.3 gm/dL (11.4-16.0); Hypochromasia Slight; Lymphocytes # (A) 0.9 k/uL (1.0-4.8); Lymphocytes % (A) 22 %; MCH 27.9 pg (25.0-35.0); MCHC 33.5 g/dL (31.0-37.0); MCV 83.3 fL (80.0-100.0); Mean Platelet Volume 10.2; Monocytes # (A) 0.3 k/uL (0-1.0); Monocytes % (A) 7 %; Neutrophils # (A) 2.6 k/uL (1.3-7.7); Neutrophils % (A) 62 %; Platelet Count 171 k/uL (150-450); RBC 4.03 m/uL (3.80-5.40); RDW 16.7 % (11.5-15.5); WBC 4.2 k/uL (3.8-10.6)
[2023-03-11] MEDS: HYDROcodone/APAP 10-325MG 1 EACH TAB PO PRN (11:35)
[2023-03-11] MEDS: SODIUM CHLORIDE 0.9% 1,000 ML IV SCH (11:35)
[2023-03-11] MEDS: CHOLESTYRAMINE (WITH SUGAR) 4 GM PACKET PO SCH (11:36)
[2023-03-11 14:51] VITALS: BP 112/75; PULSE 73; RESP 18; TEMP 97.9
--- NOTE | 2023-03-11 15:07 | P.PN ---
Subjective Progress Note Date: 03/11/23 Principal diagnosis: C. 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 diff and did have diarrhea On today's evaluation that is 03/11/2023, the patient remains to be afebrile, the patient is breathing comfortably on room air , the patient denies any chest pain or any cough , patient denies nausea/vomiting , no abdominal pain and d iarrhea has slowed down feeling better tolerated oral vancomycin without any issues Patient white count is 4.2, creatinine is 1.39 Objective - Vital Signs Vital signs: Vital Signs Temp 98.6 F 03/11/23 08:00 Pulse 71 03/11/23 08:00 Resp 17 03/11/23 08:00 BP 116/65 03/11/23 08:00 Pulse Ox 100 03/11/23 08:00 FiO2 Intake & Output 03/10/23 03/11/23 03/11/23 18:59 06:59 18:59 Other: # Voids 1 1 # Bowel Movements 1 - Exam GENERAL DESCRIPTION: A middle-age female lying in bed in no distress HEENT: Right upper jaw no purulent drainage was noticed RESPIRATORY SYSTEM: Unlabored breathing , clear to auscultation anteriorly HEART: S1 S2 regular rate and rhythm , ABDOMEN: Soft , no tenderness EXTREMITIES: No edema feet - Labs CBC & Chem 7: 03/11/23 08:09 03/11/23 08:09 Labs: Abnormal Lab Results - Last 24 Hours (Table) 03/11/23 03/11/23 Range/Units 08:09 08:09 Hgb 11.3 L (11.4-16.0) gm/dL Hct 33.6 L (34.0-46.0) % RDW 16.7 H (11.5-15.5) % Lymphocytes # 0.9 L (1.0-4.8) k/uL Creatinine 1.39 H (0.52-1.04) mg/dL AST 40 H (14-36) U/L Total Protein 6.2 L (6.3-8.2) g/dL Assessment and Plan (1) Clostridium difficile infection Status: Acute Code(s): A49.8 - OTHER BACTERIAL INFECTIONS OF UNSPECIFIED SITE SNOMED Code(s): 595141735 Plan: 1patient presented to hospital with abdominal pain diarrhea with a recent outpatient stool for C. difficile positive possibly contribute to some of her symptoms especially with significant diarrhea and did have antibiotic exposure. 2patient with multiple antibiotic allergies that would limit the number of antibiotics safe to use. 3- patient is complaining of pain and some purulent drainage to the right upper jaw, x-ray of the mandible was negative did have significant discomfort and swelling to the area patient to have multiple antibiotic ALLERGIES, patient received a short course of Invanz with overall improvement in her symptoms . 4-patient with a C. diff colitis and did have a high outpatient co-pay for deficid, however the patient is unable to afford, the patient ALLERGY to vancomycin was lip swelling however patient has tolerated oral vancomycin without any problem prescription for the oral vancomycin has been sent to the [facility] questions concerned were answered Dictation was produced using [employer] dictation software. please excuse any grammatical, word or spelling errors.
== END 2023-03-11 14:52 | disposition home or self-care (01) | DRG 372 ==
LOC: EC 20:56 → 4SSUR 03-05 03:57
PROVIDERS: ADMIT Internal Medicine Sleep Medicine; ATTEND Internal Medicine Sleep Medicine
PROC: 05HY33Z Insertion of Infusion Device into Upper Vein, Percutaneous Approach (ICD-10-PCS; principal; 2023-03-08 15:32)
DX: A04.72 Enterocolitis due to Clostridium difficile, not specified as recurrent (principal); D68.59 Other primary thrombophilia; L88 Pyoderma gangrenosum; B96.89 Other specified bacterial agents as the cause of diseases classified elsewhere; E86.0 Dehydration; F32.A Depression, unspecified; F43.10 Post-traumatic stress disorder, unspecified; G25.81 Restless legs syndrome; G40.909 Epilepsy, unspecified, not intractable, without status epilepticus; G89.4 Chronic pain syndrome; I12.9 Hypertensive chronic kidney disease with stage 1 through stage 4 chronic kidney disease, or unspecified chronic kidney disease; N18.30 Chronic kidney disease, stage 3 unspecified; Z91.040 Latex allergy status; Z79.01 Long term (current) use of anticoagulants; Z79.52 Long term (current) use of systemic steroids; Z79.899 Other long term (current) drug therapy; Z80.0 Family history of malignant neoplasm of digestive organs; Z82.49 Family history of ischemic heart disease and other diseases of the circulatory system; Z86.711 Personal history of pulmonary embolism; Z87.820 Personal history of traumatic brain injury; Z88.1 Allergy status to other antibiotic agents; Z90.49 Acquired absence of other specified parts of digestive tract; Z90.710 Acquired absence of both cervix and uterus; Z95.0 Presence of cardiac pacemaker; Z95.2 Presence of prosthetic heart valve; Z88.0 Allergy status to penicillin; Z88.2 Allergy status to sulfonamides; Z88.5 Allergy status to narcotic agent
CPT/HCPCS: 36410; 36415; 70100; 70450; 76937; 80048; 80053; 81001; 84132; 85025; 86140; 94760; 96374; 96375; 96376; 99285

== ENCOUNTER → 2023-03-17 | Outpatient (CLI) | payer MEDICARE ==
[2023-03-17 17:21] LABS: African American GFR (CKD) 54 (>60 ml/min/1.73 sqM); Anion Gap 15 mmol/L; Blood Urea Nitrogen 16 mg/dL (7-17); Carbon Dioxide 21 mmol/L (22-30); Chloride 106 mmol/L (98-107); Non-African American GFR(CKD) 47 (>60 ml/min/1.73 sqM); Potassium 3.6 mmol/L (3.5-5.1); Sodium 142 mmol/L (137-145)
== END | disposition home or self-care (01) ==
LOC: LABWHC1 16:07
PROVIDERS: ATTEND Family Medicine
DX: Z51.81 Encounter for therapeutic drug level monitoring (principal); Z79.899 Other long term (current) drug therapy
CPT/HCPCS: 36415; 80051; 82565; 84520

== ENCOUNTER 2023-03-23 09:20 | Emergency (ER) | payer MEDICARE ==
[2023-03-23 10:50] VITALS: BP 106/62; PULSE 63; RESP 24; TEMP 97.4
[2023-03-23] MEDS ORDERED: HYDROmorphone 1 MG/ML 1 ML SYRINGE IVP STA (11:00)
[2023-03-23] MEDS ORDERED: ONDANSETRON 4 MG/2 ML VIAL IVP STA (11:00)
--- NOTE | 2023-03-23 11:30 | ED ---
Back Pain HPI - General Chief Complaint: Back Pain/Injury Stated Complaint: Back pain Time Seen by Provider: 03/23/23 10:18 Source: patient Limitations: no limitations - History of Present Illness Initial Comments: 57-year-old female presenting to the ED with a chief complaint of back pain. Patient notes history of chronic back pain and was scheduled for lumbar fusion this past October however due to her recent admission this surgery needed to be canceled. Patient states 2 weeks ago, she fell. Since then has had exacerbation of her back pain. 3 days ago, patient states that she was using a steper for lypmhedema. Since then, symptoms have become even more worse. Patient states that she has now started to have numbness on the right side of her groin. Patient states that she is losing control of her bladder as well noting that she will wake up in the middle the night and realized that she urinated on herself. Also notes difficulties holding her bladder as well. Has had no problems with fecal incontinence. Additionally, patient recently discharged from the hospital after treatment for C. diff and workup for pancreatic cancer. At this time, patient complains of right sided jaw pain. Had an x-ray of the mandible which negative for acute findings and was given a dose of Ertapenem and was advised to follow up with her dentist. Patient states that she has been unable to follow with her dentist. Since her discharge, worsening of this jaw pain. Also notes that she has been experiencing chills and has been feeling feverish but has not recorded her temperature. No chest pain or shortness of breath. No other complaints. - Related Data Home Medications Medication Instructions Recorded Confirmed Atorvastatin [Lipitor] 40 mg PO HS 09/24/21 03/05/23 Cholestyramine (with Sugar) 4 gm PO DAILY PRN 09/24/21 03/05/23 [Cholestyramine Packet] Gabapentin 300 mg PO QID 09/24/21 03/05/23 Sertraline [Zoloft] 200 mg PO DAILY 09/24/21 03/05/23 Apixaban [Eliquis] 5 mg PO BID 05/29/22 03/05/23 busPIRone HCl [Buspar] 5 mg PO BID 06/11/22 03/05/23 Bumetanide [BUMEX] 2 mg PO DAILY 06/24/22 03/05/23 Fludrocortisone [Florinef] 0.1 mg PO DAILY 09/20/22 03/05/23 Ondansetron [Zofran] 4 mg PO Q8H PRN 11/29/22 03/05/23 Nystatin 100,000 Unit/gm Powd 1 applic TOPICAL BID PRN 01/06/23 03/05/23 [Mycostatin Powder] Ipratropium Nebulized [Atrovent 0.5 mg INHALATION QID PRN 01/12/23 03/05/23 Nebulized 0.2 MG/ML] Potassium Chloride ER [K-Dur 20] 20 meq PO DAILY 01/12/23 03/05/23 Famotidine 20 mg PO BID 02/16/23 03/05/23 HYDROcodone/APAP 10-325MG [[place] 0.5 tab PO TID 02/16/23 03/05/23 10-325] Metoprolol Succinate (ER) [Toprol 50 mg PO HS 02/16/23 03/05/23 XL] Previous Rx's Medication Instructions Recorded Dicyclomine [Bentyl] 20 mg PO TID PRN #30 tablet 04/30/22 Zonisamide [Zonegran] 100 mg PO Q12HR 30 Days #60 cap 07/26/22 Cyclobenzaprine [Flexeril] 5 mg PO TID PRN #15 tablet 03/02/23 Vancomycin HCl [Vancocin HCl] 125 mg PO QID #40 capsule 03/11/23 diphenhydrAMINE [Benadryl] 50 mg PO Q6HR PRN cap 03/11/23 Allergies Allergy/AdvReac Type Severity Reaction Status Date / Time Penicillins Allergy Severe Anaphylaxis Verified 03/23/23 09:30 vancomycin Allergy Severe Swelling Verified 03/23/23 09:30 in lips albuterol [From Ventolin HFA] Allergy Rapid Verified 03/23/23 09:30 Heart Rate cefepime Allergy Swelling Verified 03/23/23 09:30 clindamycin Allergy Anaphylaxis Verified 03/23/23 09:30 dexamethasone [From Decadron] Allergy Unknown Verified 03/23/23 09:30 Influenza Virus Vaccines Allergy Unknown Verified 03/23/23 09:30 latex Allergy Unknown Verified 03/23/23 09:30 morphine Allergy Unknown Verified 03/23/23 09:30 prochlorperazine Allergy Unknown Verified 03/23/23 09:30 [From Compazine] galcanezumab-gnlm AdvReac Confusion, Verified 03/23/23 09:30 [From Emgality Pen] increased blood pressure metoclopramide [From Reglan] AdvReac "felt like Verified 03/23/23 09:30 I needed to jump out of my skin" Review of Systems ROS Statement: Those systems with pertinent positive or pertinent negative responses have been documented in the HPI. ROS Other: All systems not noted in ROS Statement are negative. 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 for low K+. lupus, pancreatic mass History of Any Multi-Drug Resistant Organisms: C-DIFF Date of last positivie culture/infection: 03/02/23 MDRO Source:: Stool Past Surgical History: Back Surgery, Breast Surgery, Cardiac Valve Replacement, Section, Cholecystectomy, Heart Catheterization, Hysterectomy, Pacemaker Additional Past Surgical History / Comment(s): pacemaker d/t bradycardia/hypotension with last one place in 2013 in [place], [place], 3 lower back surgeries, bilateral breast reduction. 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 Past Anesthesia/Blood Transfusion Reactions: No Reported Reaction Type of Cardiac Device: Permanent Pacemaker, Unknown Device Placement Date:: 2012 Past Psychological History: Anxiety Smoking Status: Never smoker Past Alcohol Use History: None Reported Past Drug Use History: None Reported - Past Family History Mother Additional Family Medical History / Comment(s): Mother at the age of 49 yrs after surgery for silicon breast implants with a leak that caused ARDS and DIC per pt Father Family Medical History: Cancer, Hyperlipidemia, Hypertension Additional Family Medical History / Comment(s): Father is a colon cancer survivor. General Exam Limitations: no limitations General appearance: alert, in no apparent distress ENT exam: Present: other (No significant facial swelling.) Respiratory exam: Present: normal lung sounds bilaterally Cardiovascular Exam: Present: regular rate, normal rhythm GI/Abdominal exam: Present: soft Extremities exam: Present: other (Strength and sensation equal and intact of bilateral lower extremities.) Back exam: Present: normal inspection Neurological exam: Present: alert, oriented X3 Course Vital Signs 03/23/23 03/23/23 09:27 10:29 Temperature 97.6 F 97.4 F L Pulse Rate 54 L 63 Respiratory 18 24 Rate Blood Pressure 100/66 106/62 O2 Sat by Pulse 94 L 95 Oximetry - Reevaluation(s) Reevaluation #1: Patient evaluated by Moshe ZAPATA of Orthopedic surgery. He will discuss the case with his attending physician. 03/23/23 12:45 Medical Decision Making - Medical Decision Making Was pt. sent in by a medical professional or institution (, [facility], [employer], urgent care, hospital, or [facility]...) When possible be specific @ -No Did you speak to anyone other than the patient for history (EMS, parent, family, police, friend...)? What history was obtained from this source @ -No Did you review nursing and triage notes (agree or disagree)? Why? @ -I reviewed and agree with nursing and triage notes Were old charts reviewed (outside hosp., previous admission, EMS record, old EKG, old radiological studies, urgent care reports/EKG's, [facility] records)? Report findings @ -No old charts were reviewed Differential Diagnosis (chest pain, altered mental status, abdominal pain women, abdominal pain men, vaginal bleeding, weakness, fever, dyspnea, syncope, headache, dizziness, GI bleed, back pain, seizure, CVA, palpatations, mental health, musculoskeletal)? @ -Differential Back Pain: Strain, zoster, cauda equina syndrome, epidural abscess, vertebral osteomyelitis, discitis, fracture, subluxation, disc herniation, DJD, spinal stenosis, dissection, AAA, pancreatitis, peptic ulcer disease, pyelonephritis, kidney stone, this is not meant to be an all-inclusive list. EKG interpreted by me (3pts min.). @ -None X-rays interpreted by me (1pt min.). @ -None done CT interpreted by me (1pt min.). @ -None done U/S interpreted by me (1pt. min.). @ -None done What testing was considered but not performed or refused? (CT, X-rays, U/S, labs)? Why? @ -None What meds were considered but not given or refused? Why? @ -None Did you discuss the management of the patient with other professionals (professionals i.e. [facility] Castorena, [employer], lab, RT, psych nurse, social security benefits interviewer, distribution agent, teacher, seismology technical officer, senior case manager)? Give summary @ -Case discussed with Moshe ZAPATA of orthopedics. After speaking to his attending Dr. San, there is concern for discitis especially given the patient's prior surgical histories and recent admissions for bacteremia. At this time, recommends transfer to [facility] in [place] to patient having a pacemaker and our MRI being incompatible with her pacemaker. Case discussed with neurosurgery at [facility] who reported that they would be happy to take the patient has accepted as a transfer. Case discussed with Dr. Eller, ED attending at [facility], who accepted transfer. Was smoking cessation discussed for >3mins.? @ -No Was critical care preformed (if so, how long)? @ -No Were there social determinants of health that impacted care today? How? (Homelessness, low income, unemployed, alcoholism, drug addiction, transportation, low edu. Level, literacy, decrease access to med. care, detention, rehab)? @ -No Was there de-escalation of care discussed even if they declined (Discuss DNR or withdrawal of care, Hospice)? DNR status @ -No What co-morbidities impacted this encounter? (DM, HTN, Smoking, COPD, CAD, Cancer, CVA, ARF, Chemo, Hep., AIDS, mental health diagnosis, sleep apnea, morbid obesity)? @ -C diff bacteremia. Was patient admitted / discharged? Hospital course, mention meds given and route, prescriptions, significant lab abnormalities, going to OR and other pertinent info. @ -Transfer 57-year-old female presenting to the ED with a chief complaint of back pain. Patient had recent extensive stay at this facility. Most recently, admitted due to bacteremia with outside cultures positive for C. diff. At this time, was also found to have elevated pancreatic cancer tumor markers and had cancer workup. During her stay here, reported right jaw pain. Had a x-ray that was negative for acute finding. Patient has multiple antibiotic ALLERGIES and was given a dose of Ertapeneum. Despite this, reports continued pain. Also presenting today with worsening of chronic back pain. Was supposed to have lumbar fusion however secondary to recent admission this was canceled. Ports 2 weeks ago she fell and had worsening of back pain. Had imaging at that time that was unremarkable for acute finding. Additionally, 3 days ago was using a lymphedema stairstepper and since then even worsening of her back pain. Now reports right groin numbness. Also notes urinary incontinence. Laboratory studies reviewed. There is no significant elevation in white blood cell count. Chemistry panel also reviewed which is largely unremarkable other than elevations in her BUN and creatinine at 36 and 1[address] facial bones with contrast shows No significant periodontal disease or periapical abscess. No specific CT findings of cellulitis or soft tissue abscess as well. Patient will be transferred to [facility] for further management. Undiagnosed new problem with uncertain prognosis? @ -No Drug Therapy requiring intensive monitoring for toxicity (Heparin, Nitro, Insulin, Cardizem)? @ -No Were any procedures done? @ -No Diagnosis/symptom? @ -Back pain Acute, or Chronic, or Acute on Chronic? @ -Acute Uncomplicated (without systemic symptoms) or Complicated (systemic symptoms)? @ -Uncomplicated Side effects of treatment? @ -No Exacerbation, Progression, or Severe Exacerbation? @ -No Poses a threat to life or bodily function? How? (Chest pain, [place], [place], pneumonia, PE, COPD, DKA, ARF, appy, cholecystitis, CVA, Diverticulitis, Homicidal, Suicidal, threat to staff... and all critical care pts) @ -Yes, discitis - Lab Data Result diagrams: 03/23/23 11:52 03/23/23 11:52 Lab Results 03/23/23 03/23/23 03/23/23 Range/Units 11:52 11:52 11:52 WBC 7.4 (3.8-10.6) k/uL RBC 5.06 (3.80-5.40) m/uL Hgb 13.4 (11.4-16.0) gm/dL Hct 41.5 (34.0-46.0) % MCV 82.1 (80.0-100.0) fL MCH 26.4 (25.0-35.0) pg MCHC 32.2 (31.0-37.0) g/dL RDW 16.3 H (11.5-15.5) % Plt Count 345 D (150-450) k/uL MPV 8.9 Neutrophils % 63 % Lymphocytes % 21 % Monocytes % 7 % Eosinophils % 5 % Basophils % 0 % Neutrophils # 4.7 (1.3-7.7) k/uL Lymphocytes # 1.6 (1.0-4.8) k/uL Monocytes # 0.5 (0-1.0) k/uL Eosinophils # 0.3 (0-0.7) k/uL Basophils # 0.0 (0-0.2) k/uL Anisocytosis Slight Sodium 136 L (137-145) mmol/L Potassium 4.2 (3.5-5.1) mmol/L Chloride 95 L (98-107) mmol/L Carbon Dioxide 26 (22-30) mmol/L Anion Gap 15 mmol/L BUN 36 H (7-17) mg/dL Creatinine 1.59 H (0.52-1.04) mg/dL Est GFR (CKD-EPI)AfAm 41 (>60 ml/min/1.73 sqM) Est GFR (CKD-EPI)NonAf 36 (>60 ml/min/1.73 sqM) Glucose 103 H (74-99) mg/dL Calcium 10.2 (8.4-10.2) mg/dL Total Bilirubin 0.4 (0.2-1.3) mg/dL AST 35 (14-36) U/L ALT 26 (4-34) U/L Alkaline Phosphatase 74 (38-126) U/L Total Protein 7.8 (6.3-8.2) g/dL Albumin 4.8 (3.5-5.0) g/dL Urine Color Colorless Urine Appearance Clear (Clear) Urine pH 6.0 (5.0-8.0) Ur Specific [place] 1.007 (1.001-1.035) Urine Protein Negative (Negative) Urine Glucose (UA) Negative (Negative) Urine Ketones Negative (Negative) Urine Blood Negative (Negative) Urine Nitrite Negative (Negative) Urine Bilirubin Negative (Negative) Urine Urobilinogen <2.0 (<2.0) mg/dL Ur Leukocyte Esterase Negative (Negative) Disposition Clinical Impression: Back pain Disposition: DC/TRNS INTERMEDIATE CARE FAC Referrals: Franklin Hassan MD [Primary Care Provider] - 1-2 days - Out of Hospital Transfer - Req. Specs Out of Hospital Transfer - Requested Specifics: Other Emergency Center ([facility])
[2023-03-23] MEDS ORDERED: HYDROmorphone 1 MG/ML 1 ML SYRINGE IM STA ×2 (11:52→13:25)
[2023-03-23 12:39] LABS: ALT 26 U/L (4-34); African American GFR (CKD) 41 (>60 ml/min/1.73 sqM); Albumin 4.8 g/dL (3.5-5.0); Anion Gap 15 mmol/L; Blood Urea Nitrogen 36 mg/dL (7-17); Calcium 10.2 mg/dL (8.4-10.2); Carbon Dioxide 26 mmol/L (22-30); Chloride 95 mmol/L (98-107); Glucose 103 mg/dL (74-99); Non-African American GFR(CKD) 36 (>60 ml/min/1.73 sqM); Sodium 136 mmol/L (137-145); Total Bilirubin 0.4 mg/dL (0.2-1.3); Total Protein 7.8 g/dL (6.3-8.2)
[2023-03-23 12:44] LABS: Potassium 4.2 mmol/L (3.5-5.1)
[2023-03-23 12:45] LABS: AST 35 U/L (14-36); Alkaline Phosphatase 74 U/L (38-126); Anisocytosis Slight; Basophils % (A) 0 %; Eosinophils # (A) 0.3 k/uL (0-0.7); Eosinophils % (A) 5 %; HCT 41.5 % (34.0-46.0); HGB 13.4 gm/dL (11.4-16.0); Lymphocytes # (A) 1.6 k/uL (1.0-4.8); Lymphocytes % (A) 21 %; MCH 26.4 pg (25.0-35.0); MCHC 32.2 g/dL (31.0-37.0); MCV 82.1 fL (80.0-100.0); Mean Platelet Volume 8.9; Monocytes # (A) 0.5 k/uL (0-1.0); Monocytes % (A) 7 %; Neutrophils # (A) 4.7 k/uL (1.3-7.7); Neutrophils % (A) 63 %; RBC 5.06 m/uL (3.80-5.40); RDW 16.3 % (11.5-15.5); WBC 7.4 k/uL (3.8-10.6)
[2023-03-23 12:50] LABS: Platelet Count 345 k/uL (150-450)
[2023-03-23] MEDS ORDERED: SODIUM CHLORIDE 0.9% 1,000 ML IV STA (13:36)
[2023-03-23 14:53] LABS: Appearance,Urine Clear (Clear); Bilirubin,Urine Negative (Negative); Blood,Urine Negative (Negative); Color,Urine Colorless; Glucose,Urine (UA) Negative (Negative); Ketones,Urine Negative (Negative); Leukocyte Esterase,Urine Negative (Negative); Nitrite,Urine Negative (Negative); Protein,Urine Negative (Negative); Specific Gravity,Urine 1.007 (1.001-1.035); Urobilinogen,Urine <2.0 mg/dL (<2.0)
--- NOTE | 2023-03-23 17:10 | CT ---
EXAMINATION TYPE: CT facial bones w con DATE OF EXAM: 03/23/2023 COMPARISON: 11/29/2022 HISTORY: 57-year-old female with history of worsening right dental pain, rule out abscess. TECHNIQUE: Contiguous axial scanning of the facial bones performed with IV Contrast, patient injected with 80cc mL of Isovue 300. Coronal and sagittal reconstructions performed. CT DLP: 799 mGycm Automated exposure control for dose reduction was used. FINDINGS: Visualized intracranial structures, orbits and globes, and mastoid air cells appear clear. Rightward nasal septal deviation. Trace mucosal thickening ethmoid air cells. Remainder of the parana demetri sinuses are well pneumatized. There is moderate degenerative change of the right TMJ and mild of the left TMJ. Scattered dental amalgam. Patient partially dentulous. The submandibular and parotid glands appear symmetrical. There is some scattered small dental caries. No large periapical lucency is seen. No discrete abscess is identified. IMPRESSION: THERE MAY BE SCATTERED SMALL DENTAL SERIES. NO SIGNIFICANT PERIODONTAL DISEASE OR PERIAPICAL ABSCESS IS SEEN. NO SPECIFIC CT FINDINGS OF CELLULITIS OR SOFT TISSUE ABSCESS. CAREFUL CLINICAL CORRELATION R ECOMMENDED. 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
[2023-03-23] MEDS ORDERED: diphenhydrAMINE 50 MG/ML 1 ML VIAL IVP STA (17:23)
== END 2023-03-23 22:26 | disposition other institution (70) ==
LOC: EC 09:20
DX: M26.641 Arthritis of right temporomandibular joint (principal); M54.9 Dorsalgia, unspecified; F41.9 Anxiety disorder, unspecified; Z79.899 Other long term (current) drug therapy; Z88.0 Allergy status to penicillin; Z88.5 Allergy status to narcotic agent; Z91.040 Latex allergy status; Z88.8 Allergy status to other drugs, medicaments and biological substances; Z88.7 Allergy status to serum and vaccine; Z88.1 Allergy status to other antibiotic agents; Z95.0 Presence of cardiac pacemaker; Z90.49 Acquired absence of other specified parts of digestive tract
CPT/HCPCS: 99285; 96374; 96372 ×2; 36415; 80053; 85025; 81003; 87040; 70487; 96361; J2405; J1170; Q9967

== ENCOUNTER 2023-04-13 23:28 | Emergency (ER) | payer BC, MEDICARE ==
[2023-04-13 23:34] VITALS: RESP 18; TEMP 98.1
[2023-04-14] MEDS ORDERED: HYDROmorphone 0.5 MG/0.5 ML SYRINGE IVP STA (00:04)
[2023-04-14] MEDS ORDERED: HYDROmorphone 0.5 MG/0.5 ML SYRINGE IM STA (00:37)
--- NOTE | 2023-04-14 00:53 | ED ---
General Adult HPI - General Chief complaint: Extremity Problem,Nontraumatic Stated complaint: Infected IV site Time Seen by Provider: 04/13/23 23:59 Source: patient, RN notes reviewed, old records reviewed Mode of arrival: ambulatory Limitations: no limitations - History of Present Illness Initial comments: 58-year-old female presenting with pain and swelling at the site of recent IV insertion site. Patient had an IV placed in her right forearm approximately 2 weeks ago. She has developed some erythema, pain at the site of insertion over the past several days. No measured fever. Chest pain or dyspnea. - Related Data Home Medications Medication Instructions Recorded Confirmed Atorvastatin [Lipitor] 40 mg PO HS 09/24/21 03/05/23 Cholestyramine (with Sugar) 4 gm PO DAILY PRN 09/24/21 03/05/23 [Cholestyramine Packet] Gabapentin 300 mg PO QID 09/24/21 03/05/23 Sertraline [Zoloft] 200 mg PO DAILY 09/24/21 03/05/23 Apixaban [Eliquis] 5 mg PO BID 05/29/22 03/05/23 busPIRone HCl [Buspar] 5 mg PO BID 06/11/22 03/05/23 Bumetanide [BUMEX] 2 mg PO DAILY 06/24/22 03/05/23 Fludrocortisone [Florinef] 0.1 mg PO DAILY 09/20/22 03/05/23 Ondansetron [Zofran] 4 mg PO Q8H PRN 11/29/22 03/05/23 Nystatin 100,000 Unit/gm Powd 1 applic TOPICAL BID PRN 01/06/23 03/05/23 [Mycostatin Powder] Ipratropium Nebulized [Atrovent 0.5 mg INHALATION QID PRN 01/12/23 03/05/23 Nebulized 0.2 MG/ML] Potassium Chloride ER [K-Dur 20] 20 meq PO DAILY 01/12/23 03/05/23 Famotidine 20 mg PO BID 02/16/23 03/05/23 HYDROcodone/APAP 10-325MG [[place] 0.5 tab PO TID 02/16/23 03/05/23 10-325] Metoprolol Succinate (ER) [Toprol 50 mg PO HS 02/16/23 03/05/23 XL] Previous Rx's Medication Instructions Recorded Dicyclomine [Bentyl] 20 mg PO TID PRN #30 tablet 04/30/22 Zonisamide [Zonegran] 100 mg PO Q12HR 30 Days #60 cap 07/26/22 Cyclobenzaprine [Flexeril] 5 mg PO TID PRN #15 tablet 03/02/23 Vancomycin HCl [Vancocin HCl] 125 mg PO QID #40 capsule 03/11/23 diphenhydrAMINE [Benadryl] 50 mg PO Q6HR PRN cap 03/11/23 Sulfamethox-Tmp 800-160Mg [Bactrim 1 tab PO Q12HR #28 tab 04/14/23 DS 800-160 mg] Allergies Allergy/AdvReac Type Severity Reaction Status Date / Time Penicillins Allergy Severe Anaphylaxis Verified 04/13/23 23:32 vancomycin Allergy Severe Swelling Verified 04/13/23 23:32 in lips albuterol [From Ventolin HFA] Allergy Rapid Verified 04/13/23 23:32 Heart Rate cefepime Allergy Swelling Verified 04/13/23 23:32 clindamycin Allergy Anaphylaxis Verified 04/13/23 23:32 dexamethasone [From Decadron] Allergy Unknown Verified 04/13/23 23:32 Influenza Virus Vaccines Allergy Unknown Verified 04/13/23 23:32 latex Allergy Unknown Verified 04/13/23 23:32 morphine Allergy Unknown Verified 04/13/23 23:32 prochlorperazine Allergy Unknown Verified 04/13/23 23:32 [From Compazine] galcanezumab-gnlm AdvReac Confusion, Verified 04/13/23 23:32 [From Emgality Pen] increased blood pressure metoclopramide [From Reglan] AdvReac "felt like Verified 04/13/23 23:32 I needed to jump out of my skin" Review of Systems ROS Statement: Those systems with pertinent positive or pertinent negative responses have been documented in the HPI. ROS Other: All systems not noted in ROS Statement are negative. 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 for low K+. lupus, pancreatic mass History of Any Multi-Drug Resistant Organisms: C-DIFF Date of last positivie culture/infection: 03/02/23 MDRO Source:: Stool Past Surgical History: Back Surgery, Breast Surgery, Cardiac Valve Replacement, Section, Cholecystectomy, Heart Catheterization, Hysterectomy, Pacemaker Additional Past Surgical History / Comment(s): pacemaker d/t bradycardia/hypotension with last one place in 2013 in [place], [place], 3 lower back surgeries, bilateral breast reduction. 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 Past Anesthesia/Blood Transfusion Reactions: No Reported Reaction Type of Cardiac Device: Permanent Pacemaker, Unknown Device Placement Date:: 2012 Past Psychological History: Anxiety Smoking Status: Never smoker Past Alcohol Use History: None Reported Past Drug Use History: None Reported - Past Family History Mother Additional Family Medical History / Comment(s): Mother at the age of 49 yrs after surgery for silicon breast implants with a leak that caused ARDS and DIC per pt Father Family Medical History: Cancer, Hyperlipidemia, Hypertension Additional Family Medical History / Comment(s): Father is a colon cancer survivor. General Exam Limitations: no limitations General appearance: alert, in no apparent distress Head exam: Present: atraumatic, normocephalic Eye exam: Present: normal appearance, PERRL ENT exam: Present: normal exam Neck exam: Present: normal inspection. Absent: tenderness, meningismus Respiratory exam: Present: normal lung sounds bilaterally. Absent: respiratory distress, wheezes Cardiovascular Exam: Present: regular rate, normal rhythm Extremities exam: Present: other (There is tenderness to palpation, mild erythema over the distal medial forearm palmar surface. No fluctuance.) Course Vital Signs 04/13/23 04/14/23 23:29 02:00 Temperature 98.1 F Pulse Rate 86 80 Respiratory 18 18 Rate Blood Pressure 120/71 122/75 O2 Sat by Pulse 100 98 Oximetry Medical Decision Making - Medical Decision Making Was pt. sent in by a medical professional or institution (, PA, SCHOOL HEALTH ASSISTANT, urgent care, hospital, or shelter...) When possible be specific @ -No Did you speak to anyone other than the patient for history (EMS, parent, family, police, friend...)? What history was obtained from this source @ -No Did you review nursing and triage notes (agree or disagree)? Why? @ -I reviewed and agree with nursing and triage notes Were old charts reviewed (outside hosp., previous admission, EMS record, old EKG, old radiological studies, urgent care reports/EKG's, shelter records)? Report findings @ -No old charts were reviewed Differential Diagnosis (chest pain, altered mental status, abdominal pain women, abdominal pain men, vaginal bleeding, weakness, fever, dyspnea, syncope, headache, dizziness, GI bleed, back pain, seizure, CVA, palpatations, mental health, musculoskeletal)? @Phlebitis, DVT, cellulitis EKG interpreted by me (3pts min.). @ -As above X-rays interpreted by me (1pt min.). @ -None done CT interpreted by me (1pt min.). @ -None done U/S interpreted by me (1pt. min.). @So negative for DVT, no drainable abscess identified What testing was considered but not performed or refused? (CT, X-rays, U/S, labs)? Why? @ -None What meds were considered but not given or refused? Why? @ -None Did you discuss the management of the patient with other professionals (professionals i.e. , PA, SCHOOL HEALTH ASSISTANT, lab, RT, psych nurse, high school social science teacher, clinical safety specialist, teacher, disability liaison officer, ed case manager)? Give summary @ -No Was smoking cessation discussed for >3mins.? @ -No Was critical care preformed (if so, how long)? @ -No Were there social determinants of health that impacted care today? How? (Homelessness, low income, unemployed, alcoholism, drug addiction, transportation, low edu. Level, literacy, decrease access to med. care, [facility]ci, rehab)? @ -No Was there de-escalation of care discussed even if they declined (Discuss DNR or withdrawal of care, Hospice)? DNR status @ -No What co-morbidities impacted this encounter? (DM, HTN, Smoking, COPD, CAD, Cancer, CVA, ARF, Chemo, Hep., AIDS, mental health diagnosis, sleep apnea, morbid obesity)? @ -None Was patient admitted / discharged? Hospital course, mention meds given and route, prescriptions, significant lab abnormalities, going to OR and other pertinent info. @ -58-year-old female with pain and swelling in the right forearm from prior venous puncture site. Mild surrounding erythema. Ultrasound negative for DVT. Patient will be started on oral antibiotics with return parameters. She will follow with her primary care physician. Undiagnosed new problem with uncertain prognosis? @ -No Drug Therapy requiring intensive monitoring for toxicity (Heparin, Nitro, Insulin, Cardizem)? @ -No Were any procedures done? @ -No Diagnosis/symptom? @ -[Phlebitis, cellulitis Acute, or Chronic, or Acute on Chronic? @ -[acute Uncomplicated (without systemic symptoms) or Complicated (systemic symptoms)? @ -default Side effects of treatment? @ -No Exacerbation, Progression, or Severe Exacerbation? @ -No Poses a threat to life or bodily function? How? (Chest pain, [place], [place], pneumonia, PE, COPD, DKA, ARF, appy, cholecystitis, CVA, Diverticulitis, Homicidal, Suicidal, threat to staff... and all critical care pts) @ -Low-risk at this time Disposition Clinical Impression: Cellulitis Disposition: HOME SELF-CARE Condition: Good Instructions (If sedation given, give patient instructions): Cellulitis (ED), Superficial Thrombophlebitis (ED) Prescriptions: Sulfamethox-Tmp 800-160Mg [Bactrim DS 800-160 mg] 1 tab PO Q12HR #28 tab Is patient prescribed a controlled substance at d/c from ED?: No Referrals: Franklin Hassan MD [Primary Care Provider] - 1-2 days Time of Disposition: 02:25
--- NOTE | 2023-04-14 02:08 | US ---
EXAM: US Duplex Right Upper Extremity Veins CLINICAL HISTORY: pain/swelling TECHNIQUE: Real-time duplex ultrasound scan of the right upper extremity veins integrating B-mode two-dimensional vascular structure, Doppler spectral analysis, color flow Doppler imaging and compression. COMPARISON: No relevant prior studies available. FINDINGS: Deep veins: Unremarkable. No DVT in the internal jugular, subclavian, axillary, or brachial veins. The veins demonstrate normal color flow, are normally compressible, with normal phasic flow and/or augmentation response. Superficial veins: Unremarkable. No thrombus in the visualized basilic and cephalic veins. Soft tissues: Minimal subcutaneous edema noted in the right forearm. No loculated fluid collection. IMPRESSION: No evidence for deep vein thrombosis involving the right upper extremity.
[2023-04-14 02:21] VITALS: BP 122/75; PULSE 80
== END 2023-04-14 02:45 | disposition home or self-care (01) ==
LOC: EC 23:28
DX: L03.113 Cellulitis of right upper limb (principal); F41.9 Anxiety disorder, unspecified; Z79.899 Other long term (current) drug therapy; Z88.0 Allergy status to penicillin; Z88.1 Allergy status to other antibiotic agents; Z88.8 Allergy status to other drugs, medicaments and biological substances; Z88.7 Allergy status to serum and vaccine; Z88.5 Allergy status to narcotic agent; Z91.040 Latex allergy status
CPT/HCPCS: 93971; 99284; 96372; J1170

== ENCOUNTER 2023-04-28 14:43 | Inpatient (IN) | payer MEDICARE ==
--- NOTE | 2023-04-28 16:28 | ED ---
General Adult HPI <Nathanael Polk - Last Filed: 04/28/23 16:29> <Kendal Hughes - Last Filed: 04/29/23 00:52> - General Stated complaint: infection from iv Time Seen by Provider: 04/28/23 16:27 - History of Present Illness Initial comments: 58-year-old female presented to the ED with a chief complaint of right arm infection. Patient states approximately 3 weeks ago after receiving an IV for a computed tomography scan with contrast started to develop redness of her right forearm. Since then notes that she has been on Bactrim for the past 3 weeks. Despite this, reports infection seems to be worsening with increasing pain and increasing redness. (Nathanael Polk) Dania is a pleasant 58-year-old female with a history of recurrent Serratia infections who presents to the emergency department today via IV vehicle for infection in the right forearm. Patient reports that 3 weeks ago she had IV access for computed tomography scan and subsequently developed a abscess. She's been compliant with her Bactrim but has had worsening abscess in the right forearm. Due to failure of outpatient labs and history of recurrent bacteremia multiple line infections in the past patient given the ER for IV antibiotics. (Kendal Hughes) - Related Data Home Medications Medication Instructions Recorded Confirmed RX: Atorvastatin [Lipitor] 40 mg PO HS 09/24/21 04/28/23 RX: Cholestyramine (with Sugar) 4 gm PO DAILY PRN 09/24/21 04/28/23 [Cholestyramine Packet] RX: Gabapentin 300 mg PO QID 09/24/21 04/28/23 RX: Sertraline [Zoloft] 200 mg PO DAILY 09/24/21 04/28/23 RX: Apixaban [Eliquis] 5 mg PO BID 05/29/22 04/28/23 RX: busPIRone HCl [Buspar] 5 mg PO BID 06/11/22 04/28/23 RX: Bumetanide [BUMEX] 2 mg PO DAILY 06/24/22 04/28/23 RX: Fludrocortisone [Florinef] 0.1 mg PO DAILY 09/20/22 04/28/23 RX: Ondansetron [Zofran] 4 mg PO Q8H PRN 11/29/22 04/28/23 RX: Nystatin 100,000 Unit/gm Powd 1 applic TOPICAL BID PRN 01/06/23 04/28/23 [Mycostatin Powder] RX: Ipratropium Nebulized 0.5 mg INHALATION RT-QID PRN 01/12/23 04/28/23 [Atrovent Nebulized 0.2 MG/ML] RX: Potassium Chloride ER [K-Dur 20 meq PO DAILY 01/12/23 04/28/23 20] RX: Famotidine 20 mg PO BID 02/16/23 04/28/23 RX: HYDROcodone/APAP 10-325MG 0.5 tab PO TID 02/16/23 04/28/23 [[place] 10-325] RX: Metoprolol Succinate (ER) 50 mg PO HS 02/16/23 04/28/23 [Toprol XL] rOPINIRole HCL [Requip] 2 mg PO HS 04/28/23 04/28/23 Previous Rx's Medication Instructions Recorded RX: Dicyclomine [Bentyl] 20 mg PO TID PRN #30 tablet 04/30/22 RX: Zonisamide [Zonegran] 100 mg PO Q12HR 30 Days #60 cap 07/26/22 RX: Cyclobenzaprine [Flexeril] 5 mg PO TID PRN #15 tablet 03/02/23 RX: diphenhydrAMINE [Benadryl] 50 mg PO Q6HR PRN cap 03/11/23 Sulfamethox-Tmp 800-160Mg [Bactrim 1 tab PO Q12HR #28 tab 04/14/23 DS 800-160 mg] Allergies Allergy/AdvReac Type Severity Reaction Status Date / Time Penicillins Allergy Severe Anaphylaxis Verified 04/28/23 23:20 vancomycin Allergy Severe Swelling Verified 04/28/23 23:20 in lips albuterol [From Ventolin HFA] Allergy Rapid Verified 04/28/23 23:20 Heart Rate cefepime Allergy Swelling Verified 04/28/23 23:20 clindamycin Allergy Anaphylaxis Verified 04/28/23 23:20 dexamethasone [From Decadron] Allergy Unknown Verified 04/28/23 23:20 Influenza Virus Vaccines Allergy Unknown Verified 04/28/23 23:20 latex Allergy Unknown Verified 04/28/23 23:20 morphine Allergy Unknown Verified 12/28/23 23:20 prochlorperazine Allergy Unknown Verified 04/28/23 23:20 [From Compazine] galcanezumab-gnlm AdvReac Confusion, Verified 04/28/23 23:20 [From Emgality Pen] increased blood pressure metoclopramide [From Reglan] AdvReac "felt like Verified 04/28/23 23:20 I needed to jump out of my skin" Review of Systems ROS Other: All systems not noted in ROS Statement are negative. <Nathanael Polk - Last Filed: 04/28/23 16:29> ROS Other: All systems not noted in ROS Statement are negative. <Kendal Hughes - Last Filed: 04/29/23 00:52> ROS Statement: Those systems with pertinent positive or pertinent negative responses have been documented in the HPI. 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 for low K+. lupus, pancreatic mass History of Any Multi-Drug Resistant Organisms: C-DIFF Date of last positivie culture/infection: 03/02/23 MDRO Source:: Stool Past Surgical History: Back Surgery, Breast Surgery, Cardiac Valve Replacement, Section, Cholecystectomy, Heart Catheterization, Hysterectomy, Pacemaker Additional Past Surgical History / Comment(s): pacemaker d/t bradycardia/hypo tension with last one place in 2013 in [place], [place], 3 lower back surgeries, bilateral breast reduction. 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 Past Anesthesia/Blood Transfusion Reactions: No Reported Reaction Type of Cardiac Device: Permanent Pacemaker, Unknown Device Placement Date:: 2012 Past Psychological History: Anxiety Smoking Status: Never smoker Past Alcohol Use History: None Reported Past Drug Use History: None Reported - Past Family History Mother Additional Family Medical History / Comment(s): Mother at the age of 49 yrs after surgery for silicon breast implants with a leak that caused ARDS and DIC per pt Father Family Medical History: Cancer, Hyperlipidemia, Hypertension Additional Family Medical History / Comment(s): Father is a colon cancer survivor. <Nathanael Polk - Last Filed: 04/28/23 16:29> General Exam <Nathanael Polk - Last Filed: 04/28/23 16:29> General appearance: alert Head exam: Present: atraumatic, normocephalic Eye exam: Present: normal appearance ENT exam: Present: normal exam Respiratory exam: Absent: respiratory distress Cardiovascular Exam: Present: regular rate GI/Abdominal exam: Present: soft. Absent: distended, tenderness Rectal exam: Present: deferred External exam: Present: normal external exam Extremities exam: Present: full ROM Back exam: Present: normal inspection Neurological exam: Present: alert, oriented X3 Psychiatric exam: Present: normal affect, normal mood Skin exam: Present: other (Multiple scars on bilateral extremities consistent with recurrent skin infections) <Kendal Hughes - Last Filed: 04/29/23 00:52> - General Exam Comments Initial Comments: Visual Physical Exam Vital signs reviewed Head: Normocephalic, atraumatic Eyes: PERRLA, EOMI ENT: Airway patent Chest: Nonlabored breathing Skin: No visual rash, normal skin tone Neuro: Alert and oriented 3 (Nathanael Polk) Course Vital Signs 04/28/23 04/28/23 04/29/23 16:22 22:37 00:08 Temperature 98.0 F Pulse Rate 81 70 70 Respiratory 22 20 20 Rate Blood Pressure 153/88 134/86 131/95 O2 Sat by Pulse 98 98 97 Oximetry Medical Decision Making <Nathanael Polk - Last Filed: 04/28/23 16:29> - Lab Data Result diagrams: 04/28/23 21:07 04/28/23 21:07 <Kendal Hughes - Last Filed: 04/29/23 00:52> - Medical Decision Making Quicknote portion performed. Signed Nathanael Polk PA-C (Nathanael Polk) Was pt. sent in by a medical professional or institution (, PA, TOOLING MANAGER, urgent care, hospital, or care home...) When possible be specific @ -Yes Did you speak to anyone other than the patient for history (EMS, parent, family, police, friend...)? What history was obtained from this source @ -No Did you review nursing and triage notes (agree or disagree)? Why? @ -I reviewed and agree with nursing and triage notes Were old charts reviewed (outside hosp., previous admission, EMS record, old EKG, old radiological studies, urgent care reports/EKG's, care home records)? Report findings @ -Previous microbiology and ID notes were reviewed Differential Diagnosis (chest pain, altered mental status, abdominal pain women, abdominal pain men, vaginal bleeding, weakness, fever, dyspnea, syncope, headache, dizziness, GI bleed, back pain, seizure, CVA, palpatations, mental health)? @ -Abscess, bacteremia, sepsis EKG interpreted by me (3pts min.). @ -As above X-rays interpreted by me (1pt min.). @ -None done CT interpreted by me (1pt min.). @ -None done U/S interpreted by me (1pt. min.). @ -None done What testing was considered but not performed or refused? (CT, X-rays, U/S, labs)? Why? @ -None What meds were considered but not given or refused? Why? @ -None Did you discuss the management of the patient with other professionals (elo julieneMaria Teresa Castorena, PA, TOOLING MANAGER, lab, RT, psych nurse, director social service, yarn worker, teacher, radio division officer, case manager specialist)? Give summary @ -Admitting physician Dr Pal Was smoking cessation discussed for >3mins.? @ -No Was critical care preformed (if so, how long)? @ -No Were there social determinants of health that impacted care today? How? (Homelessness, low income, unemployed, alcoholism, drug addiction, transportation, low edu. Level, literacy, decrease access to med. care, assisted, rehab)? @ -No Was there de-escalation of care discussed even if they declined (Discuss DNR or withdrawal of care, Hospice)? DNR status @ -No What co-morbidities impacted this encounter? (DM, HTN, Smoking, COPD, CAD, Cancer, CVA, ARF, Chemo, Hep., AIDS, mental health diagnosis, sleep apnea, morbid obesity)? @ -None Was patient admitted / discharged? Hospital course, mention meds given and rout e, prescriptions, significant lab abnormalities, going to OR and other pertinent info. @ Admitted Workup initiated in the waiting room due to prolonged wait times, unable to obtain blood via peripheral draw Vascular access options were discussed with the patient, patient reports she's been in multiple midline and central line in the past and would like to just proceed with a central line at this time. Patient requested groin central line rather than IJ. Right groin central line was placed by myself and blood was obtained Show some acute kidney injury, there is no leukocytosis, cultures were obtained Cefepime with IV benadryl ordered PRN dilaudid ordered PAtietn admitted for IV antibiotics, infectious disease consulted Undiagnosed new problem with uncertain prognosis? @ -No Drug Therapy requiring intensive monitoring for toxicity (Heparin, Nitro, Insulin, Cardizem)? @ -No Were any procedures done? @ -No Diagnosis/symptom? @ -Abscess right forearm, recurrent Acute, or Chronic, or Acute on Chronic? @ -default Uncomplicated (without systemic symptoms) or Complicated (systemic symptoms)? @ -Complicated Side effects of treatment? @ -No Exacerbation, Progression, or Severe Exacerbation? @ -No Poses a threat to life or bodily function? How? (Chest pain, [place], [place], pneumonia, PE, COPD, DKA, ARF, appy, cholecystitis, CVA, Diverticulitis, Homicidal, Suicidal, threat to staff... and all critical care pts) @ -Could advance to sepsis and septic shock, (Kendal Hughes) - Lab Data Lab Results 04/28/23 04/28/23 04/29/23 Range/Units 21:07 21:07 00:07 WBC 4.8 (3.8-10.6) k/uL RBC 4.79 (3.80-5.40) m/uL Hgb 12.9 (11.4-16.0) gm/dL Hct 40.3 (34.0-46.0) % MCV 84.2 (80.0-100.0) fL MCH 26.9 (25.0-35.0) pg MCHC 31.9 (31.0-37.0) g/dL RDW 17.0 H (11.5-15.5) % Plt Count 231 (150-450) k/uL MPV 8.0 Neutrophils % 71 % Lymphocytes % 15 % Monocytes % 7 % Eosinophils % 2 % Basophils % 1 % Neutrophils # 3.4 (1.3-7.7) k/uL Lymphocytes # 0.7 L (1.0-4.8) k/uL Monocytes # 0.4 (0-1.0) k/uL Eosinophils # 0.1 (0-0.7) k/uL Basophils # 0.0 (0-0.2) k/uL Anisocytosis Slight Sodium 139 (137-145) mmol/L Potassium 4.1 (3.5-5.1) mmol/L Chloride 106 (98-107) mmol/L Carbon Dioxide 17 L (22-30) mmol/L Anion Gap 16 mmol/L BUN 18 H (7-17) mg/dL Creatinine 1.67 H (0.52-1.04) mg/dL Est GFR (CKD-EPI)AfAm 38 (>60 ml/min/1.73 sqM) Est GFR (CKD-EPI)NonAf 33 (>60 ml/min/1.73 sqM) Glucose 88 (74-99) mg/dL Plasma Lactic Acid Raffi 1.2 (0.7-2.0) mmol/L Calcium 9.5 (8.4-10.2) mg/dL Total Bilirubin 0.4 (0.2-1.3) mg/dL AST 25 (14-36) U/L ALT 23 (4-34) U/L Alkaline Phosphatase 99 (38-126) U/L Total Protein 7.3 (6.3-8.2) g/dL Albumin 4.4 (3.5-5.0) g/dL Disposition <Nathnaael Polk - Last Filed: 04/28/23 16:29> Is patient prescribed a controlled substance at d/c from ED?: No <Kendal Hughes - Last Filed: 04/29/23 00:52> Clinical Impression: Abscess of forearm, Serratia infection, Intractable pain, Allergy to multiple antibiotics Disposition: ADMITTED IP TO THIS [facility] Condition: Serious Referrals: Franklin Hassan MD [Primary Care Provider] - 1-2 days
[2023-04-28] MEDS ORDERED: HYDROmorphone 1 MG/ML 1 ML SYRINGE IM STA (16:30)
--- NOTE | 2023-04-28 18:54 | XR ---
EXAMINATION TYPE: XR forearm RT DATE OF EXAM: 04/28/2023 COMPARISON: NONE HISTORY: 58-year-old female arm infection from IV, chills, pain, rule out osteomyelitis or air TECHNIQUE: 2 views FINDINGS: Prominent generalized subcutaneous soft tissue swelling is present. There appears to be carla e ulceration along the radial aspect of the wrist and dorsum of the hand. No soft tissue air or lytic bony destruction is seen. No elbow joint effusion. IMPRESSION: Diffuse cellulitis. There appears to be a soft tissue ulcer or blister along the radial aspect of the wrist and also dorsal aspect of the hand. No soft tissue air or radiographic evidence of osteomyelit is at this time.
[2023-04-28] MEDS ORDERED: CEFEPIME 2 GM in SODIUM CHLORIDE 0.9% 100 ML IVPB STA ×2 (22:39→22:44)
[2023-04-28] MEDS ORDERED: HYDROmorphone 1 MG/ML 1 ML SYRINGE IVP STA (23:42)
[2023-04-28] MEDS ORDERED: ONDANSETRON 4 MG/2 ML VIAL IVP STA (23:43)
[2023-04-29] MEDS: SODIUM CHLORIDE 0.9% 500 ML 500 ML IV SCH ×3 (00:09→01:07)
[2023-04-29 00:14] LABS: Anisocytosis Slight; Basophils % (A) 1 %; Eosinophils # (A) 0.1 k/uL (0-0.7); Eosinophils % (A) 2 %; HCT 40.3 % (34.0-46.0); HGB 12.9 gm/dL (11.4-16.0); Lymphocytes # (A) 0.7 k/uL (1.0-4.8); Lymphocytes % (A) 15 %; MCH 26.9 pg (25.0-35.0); MCHC 31.9 g/dL (31.0-37.0); MCV 84.2 fL (80.0-100.0); Monocytes # (A) 0.4 k/uL (0-1.0); Monocytes % (A) 7 %; Neutrophils # (A) 3.4 k/uL (1.3-7.7); Neutrophils % (A) 71 %; Platelet Count 231 k/uL (150-450); RBC 4.79 m/uL (3.80-5.40); WBC 4.8 k/uL (3.8-10.6)
[2023-04-29] MEDS: diphenhydrAMINE 50 MG/ML 1 ML VIAL IVP SCH ×4 (00:16→20:51)
[2023-04-29 00:28] LABS: Partial Thromboplastin Time 32.6 sec (22.0-30.0); Prothrombin Time 11.2 sec (10.0-12.5)
[2023-04-29 00:29] LABS: ALT 23 U/L (4-34); AST 25 U/L (14-36); African American GFR (CKD) 38 (>60 ml/min/1.73 sqM); Albumin 4.4 g/dL (3.5-5.0); Alkaline Phosphatase 99 U/L (38-126); Anion Gap 16 mmol/L; Blood Urea Nitrogen 18 mg/dL (7-17); Calcium 9.5 mg/dL (8.4-10.2); Carbon Dioxide 17 mmol/L (22-30); Chloride 106 mmol/L (98-107); Glucose 88 mg/dL (74-99); Non-African American GFR(CKD) 33 (>60 ml/min/1.73 sqM); Potassium 4.1 mmol/L (3.5-5.1); Sodium 139 mmol/L (137-145); Total Bilirubin 0.4 mg/dL (0.2-1.3); Total Protein 7.3 g/dL (6.3-8.2)
[2023-04-29] MEDS ORDERED: NALOXONE 0.4 MG/ML 1 ML VIAL IV PRN (00:31)
[2023-04-29] MEDS: SODIUM CHLORIDE 0.9% 1,000 ML IV SCH ×3 (01:06→16:51)
[2023-04-29] MEDS: HYDROmorphone 1 MG/ML 1 ML SYRINGE IVP PRN ×6 (03:31→20:01)
[2023-04-29] MEDS ORDERED: CEFEPIME 2 GM in SODIUM CHLORIDE 0.9% 100 ML IVPB SCH (08:00)
[2023-04-29] MEDS: CEFEPIME 2 GM in SODIUM CHLORIDE 0.9% 100 ML IVPB SCH ×2 (08:13→20:31)
[2023-04-29 08:56] LABS: Appearance,Urine Clear (Clear); Bilirubin,Urine Negative (Negative); Blood,Urine Negative (Negative); Color,Urine Light Yellow; Glucose,Urine (UA) Negative (Negative); Ketones,Urine Negative (Negative); Leukocyte Esterase,Urine Negative (Negative); Nitrite,Urine Negative (Negative); PH, Urine 5.5 (5.0-8.0); Protein,Urine Trace (Negative); Urobilinogen,Urine <2.0 mg/dL (<2.0)
[2023-04-29] MEDS ORDERED: CHOLESTYRAMINE (WITH SUGAR) 4 GM PACKET PO PRN (10:24)
[2023-04-29] MEDS ORDERED: DICYCLOMINE 20 MG TAB PO PRN (10:24)
[2023-04-29] MEDS ORDERED: IPRATROPIUM 0.5 MG/2.5 ML NEBU INHALATION PRN (10:24)
[2023-04-29] MEDS ORDERED: CYCLOBENZAPRINE 5 MG TAB PO PRN (10:24)
[2023-04-29] MEDS ORDERED: FAMOTIDINE 20 MG TAB PO SCH (10:30)
[2023-04-29] MEDS ORDERED: HYDROcodone/APAP 10-325MG 1 EACH TAB PO SCH (10:30)
[2023-04-29] MEDS: SERTRALINE 100 MG TAB PO SCH (12:01)
[2023-04-29] MEDS: HYDROcodone/APAP 5-325MG 1 EACH TAB PO SCH ×3 (12:02→21:16)
[2023-04-29] MEDS: POTASSIUM CHLORIDE ER 20 MEQ TAB.ER PO SCH (12:02)
[2023-04-29] MEDS: APIXABAN 5 MG TAB PO SCH ×2 (12:02→20:30)
[2023-04-29] MEDS: FLUDROCORTISONE 0.1 MG TAB PO SCH (12:03)
[2023-04-29] MEDS: BUMETANIDE 1 MG TAB PO SCH (12:03)
[2023-04-29] MEDS: ZONISAMIDE 100 MG CAP PO SCH ×2 (12:03→20:30)
[2023-04-29] MEDS: busPIRone HCl 5 MG TAB PO SCH ×2 (12:03→20:30)
--- NOTE | 2023-04-29 13:09 | P.GSCN ---
History of Present Illness Consult date: 04/29/23 History of present illness: Patient is a 58-year-old female who presented yesterday for right upper extremity wound about 3 weeks ago, she had an IV for computed tomography scan in this area and a few days subsequently noticed having some redness in that area. She does not remember any pain at the site during the computed tomography scan. She states she does have a history of diagnosed pyoderma but has not had one for many years and instruments removed much of that. She initially tried Bactrim without any significant improvement of her wound. She is not seeing wound care Past Medical History Past Medical History: Blood Disorder, Pulmonary Embolus (PE), Renal Disease, Seizure Disorder Additional Past Medical History / Comment(s): Antiphospholipid antibody syndrome which causes clots and bleeding, multiple PEs, R renal artery embolism/now atrophic, CKD stage III, hypotension, hypokalemia especially w/stress, lupus, pyoderm grangrenosum, decreased pituitary function pt states d/t clot, migraines, chonic cervical/back pain, herniated discs, RLS, vertigo, recent adm. for low K+. lupus History of Any Multi-Drug Resistant Organisms: C-DIFF Year Discovered:: 03/02/23 MDRO Source:: Stool Past Surgical History: Back Surgery, Breast Surgery, Cardiac Valve Replacement, Section, Cholecystectomy, Heart Catheterization, Hysterectomy, Pacemaker Additional Past Surgical History / Comment(s): pacemaker d/t bradycardia/hypotension with last one place in 2013 in [place], [place], 3 lower back surgeries, bilateral breast reduction. left upper arm port placed by dr amki 04/30/2022, tricuspid valve replacement x2 with pig valve Past Anesthesia/Blood Transfusion Reactions: No Reported Reaction Type of Cardiac Device: Permanent Pacemaker, Unknown Device Placement Date:: 2012 Past Psychological History: Anxiety Additional Psychological History / Comment(s): Pt resides with her spouse. She is independent. Smoking Status: Never smoker Past Alcohol Use History: None Reported Past Drug Use History: None Reported Additional Drug Use History / Comment(s): Marijuana use prn per pt. - Past Family History Mother Additional Family Medical History / Comment(s): Mother at the age of 49 yrs after surgery for silicon breast implants with a leak that caused ARDS and DIC per pt Father Family Medical History: Cancer, Hyperlipidemia, Hypertension Additional Family Medical History / Comment(s): Father is a colon cancer survivor. Medications and Allergies Home Medications Medication Instructions Recorded Confirmed Type Atorvastatin [Lipitor] 40 mg PO HS 09/24/21 04/28/23 History Cholestyramine (with Sugar) 4 gm PO DAILY PRN 09/24/21 04/28/23 History [Cholestyramine Packet] Gabapentin 300 mg PO QID 09/24/21 04/28/23 History Sertraline [Zoloft] 200 mg PO DAILY 09/24/21 04/28/23 History Dicyclomine [Bentyl] 20 mg PO TID PRN #30 tablet 04/30/22 04/28/23 Rx Apixaban [Eliquis] 5 mg PO BID 05/29/22 04/28/23 History busPIRone HCl [Buspar] 5 mg PO BID 06/11/22 04/28/23 History Bumetanide [BUMEX] 2 mg PO DAILY 06/24/22 04/28/23 History Zonisamide [Zonegran] 100 mg PO Q12HR 30 Days #60 cap 07/26/22 04/28/23 Rx Fludrocortisone [Florinef] 0.1 mg PO DAILY 09/20/22 04/28/23 History Ondansetron [Zofran] 4 mg PO Q8H PRN 11/29/22 04/28/23 History Nystatin 100,000 Unit/gm Powd 1 applic TOPICAL BID PRN 01/06/23 04/28/23 History [Mycostatin Powder] Ipratropium Nebulized [Atrovent 0.5 mg INHALATION RT-QID PRN 01/12/23 04/28/23 History Nebulized 0.2 MG/ML] Potassium Chloride ER [K-Dur 20] 20 meq PO DAILY 01/12/23 04/28/23 History Famotidine 20 mg PO BID 02/16/23 04/28/23 History HYDROcodone/APAP 10-325MG [[place] 0.5 tab PO TID 02/16/23 04/28/23 History 10-325] Metoprolol Succinate (ER) [Toprol 50 mg PO HS 02/16/23 04/28/23 History XL] Cyclobenzaprine [Flexeril] 5 mg PO TID PRN #15 tablet 03/02/23 04/28/23 Rx diphenhydrAMINE [Benadryl] 50 mg PO Q6HR PRN cap 03/11/23 04/28/23 Rx Sulfamethox-Tmp 800-160Mg [Bactrim 1 tab PO Q12HR #28 tab 04/14/23 04/28/23 Rx DS 800-160 mg] rOPINIRole HCL [Requip] 2 mg PO HS 04/28/23 04/28/23 History Allergies Allergy/AdvReac Type Severity Reaction Status Date / Time Penicillins Allergy Severe Anaphylaxis Verified 04/28/23 23:20 vancomycin Allergy Severe Swelling Verified 04/28/23 23:20 in lips albuterol [From Ventolin HFA] Allergy Rapid Verified 04/28/23 23:20 Heart Rate cefepime Allergy Swelling Verified 04/28/23 23:20 clindamycin Allergy Anaphylaxis Verified 04/28/23 23:20 dexamethasone [From Decadron] Allergy Unknown Verified 04/28/23 23:20 Influenza Virus Vaccines Allergy Unknown Verified 04/28/23 23:20 latex Allergy Unknown Verified 04/28/23 23:20 morphine Allergy Unknown Verified 04/28/23 23:20 prochlorperazine Allergy Unknown Verified 04/28/23 23:20 [From Compazine] galcanezumab-gnlm AdvReac Confusion, Verified 04/28/23 23:20 [From Emgality Pen] increased blood pressure metoclopramide [From Reglan] AdvReac "felt like Verified 04/28/23 23:20 I needed to jump out of my skin" Surgical - Exam Vital Signs Pulse Resp BP Pulse Ox 81 22 153/88 98 04/28/23 16:22 04/28/23 16:22 04/28/23 16:22 04/28/23 16:22 No acute distress resting comfortably, on the phone. Heart appears regular. Lungs are clear. Multiple areas of previous scarring. Right upper extremity forearm with multiple areas of denuded skin and wound appearing into the fatty tissue. No fluctuance or purulence. Results - Labs 04/28/23 21:07 04/28/23 21:07 Abnormal Lab Results - Last 24 Hours (Table) 04/28/23 04/28/23 04/28/23 Range/Units 21:07 21:07 23:48 RDW 17.0 H (11.5-15.5) % Lymphocytes # 0.7 L (1.0-4.8) k/uL APTT 32.6 H (22.0-30.0) sec Carbon Dioxide 17 L (22-30) mmol/L BUN 18 H (7-17) mg/dL Creatinine 1.67 H (0.52-1.04) mg/dL Urine Protein (Negative) 04/29/23 Range/Units 08:30 RDW (11.5-15.5) % Lymphocytes # (1.0-4.8) k/uL APTT (22.0-30.0) sec Carbon Dioxide (22-30) mmol/L BUN (7-17) mg/dL Creatinine (0.52-1.04) mg/dL Urine Protein Trace H (Negative) Diabetes panel 04/28/23 Range/Units 21:07 Sodium 139 (137-145) mmol/L Potassium 4.1 (3.5-5.1) mmol/L Chloride 106 (98-107) mmol/L Carbon Dioxide 17 L (22-30) mmol/L BUN 18 H (7-17) mg/dL Creatinine 1.67 H (0.52-1.04) mg/dL Glucose 88 (74-99) mg/dL Calcium 9.5 (8.4-10.2) mg/dL AST 25 (14-36) U/L ALT 23 (4-34) U/L Alkaline Phosphatase 99 (38-126) U/L Total Protein 7.3 (6.3-8.2) g/dL Albumin 4.4 (3.5-5.0) g/dL Calcium panel 04/28/23 Range/Units 21:07 Calcium 9.5 (8.4-10.2) mg/dL Albumin 4.4 (3.5-5.0) g/dL Pituitary panel 04/28/23 Range/Units 21:07 Sodium 139 (137-145) mmol/L Potassium 4.1 (3.5-5.1) mmol/L Chloride 106 (98-107) mmol/L Carbon Dioxide 17 L (22-30) mmol/L BUN 18 H (7-17) mg/dL Creatinine 1.67 H (0.52-1.04) mg/dL Glucose 88 (74-99) mg/dL Calcium 9.5 (8.4-10.2) mg/dL Adrenal panel 04/28/23 Range/Units 21:07 Sodium 139 (137-145) mmol/L Potassium 4.1 (3.5-5.1) mmol/L Chloride 106 (98-107) mmol/L Carbon Dioxide 17 L (22-30) mmol/L BUN 18 H (7-17) mg/dL Creatinine 1.67 H (0.52-1.04) mg/dL Glucose 88 (74-99) mg/dL Calcium 9.5 (8.4-10.2) mg/dL Total Bilirubin 0.4 (0.2-1.3) mg/dL AST 25 (14-36) U/L ALT 23 (4-34) U/L Alkaline Phosphatase 99 (38-126) U/L Total Protein 7.3 (6.3-8.2) g/dL Albumin 4.4 (3.5-5.0) g/dL Assessment and Plan Assessment: Right upper extremity wound, cellulitis Plan: There is no obvious evidence of abscess at this time, would consider further imaging if there is further concern however given the potential pyoderma history would continue with local wound care. We'll defer to Dr. Hanson or wound care for this. Patient is afebrile without white count therefore do not believe she needs significant aggressive interventions.
[2023-04-29] MEDS: ONDANSETRON 4 MG/2 ML VIAL IVP PRN (13:38)
[2023-04-29] MEDS: METOPROLOL SUCCINATE (ER) 50 MG TAB.ER.24H PO SCH (20:30)
[2023-04-29] MEDS: ATORVASTATIN 40 MG TAB PO SCH (20:30)
[2023-04-29] MEDS: diphenhydrAMINE 25 MG CAP PO PRN ×2 (20:30→20:45)
--- NOTE | 2023-04-29 20:30 | P.HPIM ---
History of Present Illness H&P Date: 04/29/23 Chief Complaint: Right forearm infection Pleasant 58-year-old patient follows Dr. Franklin Hassan. Rounding for Dr. 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 Patient don't of infection there. Was started on Bactrim for the same. Been on it for 3 weeks. Progressively getting more worse with more swelling. No skin. Having chills. Patient had diarrhea for last 34 days. None today. No abdominal pain. No fever no chills. Review of systems: GEN.: None EYES: None HEENT: None NECK: None RESPIRATORY: None CARDIOVASCULAR: None GASTROINTESTINAL: Diarrhea up to yesterday GENITOURINARY: None MUSCULOSKELETAL: Joint pains including back LYMPHATICS: None HEMATOLOGICAL: None PSYCHIATRY: None NEUROLOGICAL: None Social history: . No smoking or alcohol. Medical marijuana Physical examination: VITAL SIGNS: 97.5, 69, 17, 10 9 x 72, 96% on 2 L GENERAL: BMI 27.3, sitting up in bed not in distress. EYES: Pupils equal. Conjunctiva normal. HEENT: External appearance of nose and ears normal, oral cavity grossly normal. NECK: JVD not raised; masses not palpable. HEART: First and second heart sounds are normal; no edema. LUNGS: Respiratory rate normal; clear to auscultation. ABDOMEN: Soft, nontender, liver spleen not palpable, no masses palpable. PSYCH: Alert and oriented x3; mood and affect normal. MUSCULOSKELETAL:No Clubbing/cyanosis;muscles-grossly intact NEUROLOGICAL: Cranial nerves grossly intact; no facial asymmetry, power and sensation grossly intact. LYMPHATICS: No lymph nodes palpable in the axilla and neck DERMATOLOGICAL: Right upper extremity forearm. Area of swelling. No skin te nderness. Subcutaneous fluid. Distal arm is warm. Good capillary reflex. INVESTIGATIONS, reviewed in the clinical context: White count 4.8 hemoglobin 12.9 platelets 231 potassium 4.1 BUN 18 creatinine 1.67 Influenza type A, type B, RSV, COVID-19: Not detected Previous labs: Creatinine 1.5 - on 03/23/2023 Assessment plan: -Acute infection cannot rule out underlying abscess of the right forearm and IV access site. Having failed outpatient treatment with Bactrim for 3 weeks. IV cefepime.. Consult ID. Consult Dr. Vasquez from vascular -to evaluate for needs I&D. -History of pyoderma gangrenosa and severe episodes -Antiphospholipid antibody syndrome causing multiple clots and bleeding Eliquis -Chronic kidney disease stage III -Chronic back pain with herniated disc [place] -Restless legs syndrome Requip -Depression Zoloft BuSpar -Pituitary dysfunction Florinef Past Medical History Past Medical History: Blood Disorder, Pulmonary Embolus (PE), Renal Disease, Seizure Disorder Additional Past Medical History / Comment(s): Antiphospholipid antibody syndrome which causes clots and bleeding, multiple PEs, R renal artery embolism/now atrophic, CKD stage III, hypotension, hypokalemia especially w/stress, lupus, pyoderm grangrenosum, decreased pituitary function pt states d/t clot, migraines, chonic cervical/back pain, herniated discs, RLS, vertigo, recent adm. for low K+. lupus History of Any Multi-Drug Resistant Organisms: C-DIFF Date of last positivie culture/infection: 03/02/23 MDRO Source:: Stool Past Surgical History: Back Surgery, Breast Surgery, Cardiac Valve Replacement, Section, Cholecystectomy, Heart Catheterization, Hysterectomy, Pacemaker Additional Past Surgical History / Comment(s): pacemaker d/t bradycardia/hypotension with last one place in 2013 in [place], [place], 3 lower back surgeries, bilateral breast reduction. left upper arm port placed by dr maki , tricuspid valve replacement x2 with pig valve Past Anesthesia/Blood Transfusion Reactions: No Reported Reaction Type of Cardiac Device: Permanent Pacemaker, Unknown Device Placement Date:: 2012 Past Psychological History: Anxiety Additional Psychological History / Comment(s): Pt resides with her spouse. She is independent. Smoking Status: Never smoker Past Alcohol Use History: None Reported Past Drug Use History: None Reported Additional Drug Use History / Comment(s): Marijuana use prn per pt. - Past Family History Mother Additional Family Medical History / Comment(s): Mother at the age of 49 yrs after surgery for silicon breast implants with a leak that caused ARDS and DIC per pt Father Family Medical History: Cancer, Hyperlipidemia, Hypertension Additional Family Medical History / Comment(s): Father is a colon cancer survivor. Medications and Allergies Home Medications Medication Instructions Recorded Confirmed Type Atorvastatin [Lipitor] 40 mg PO HS 09/24/21 04/28/23 History Cholestyramine (with Sugar) 4 gm PO DAILY PRN 09/24/21 04/28/23 History [Cholestyramine Packet] Gabapentin 300 mg PO QID 09/24/21 04/28/23 History Sertraline [Zoloft] 200 mg PO DAILY 09/24/21 04/28/23 History Dicyclomine [Bentyl] 20 mg PO TID PRN #30 tablet 04/30/22 04/28/23 Rx Apixaban [Eliquis] 5 mg PO BID 05/29/22 04/28/23 History busPIRone HCl [Buspar] 5 mg PO BID 06/11/22 04/28/23 History Bumetanide [BUMEX] 2 mg PO DAILY 06/24/22 04/28/23 History Zonisamide [Zonegran] 100 mg PO Q12HR 30 Days #60 cap 07/26/22 04/28/23 Rx Fludrocortisone [Florinef] 0.1 mg PO DAILY 09/20/22 04/28/23 History Ondansetron [Zofran] 4 mg PO Q8H PRN 11/29/22 04/28/23 History Nystatin 100,000 Unit/gm Powd 1 applic TOPICAL BID PRN 01/06/23 04/28/23 History [Mycostatin Powder] Ipratropium Nebulized [Atrovent 0.5 mg INHALATION RT-QID PRN 01/12/23 04/28/23 History Nebulized 0.2 MG/ML] Potassium Chloride ER [K-Dur 20] 20 meq PO DAILY 01/12/23 04/28/23 History Famotidine 20 mg PO BID 02/16/23 04/28/23 History HYDROcodone/APAP 10-325MG [[place] 0.5 tab PO TID 02/16/23 04/28/23 History 10-325] Metoprolol Succinate (ER) [Toprol 50 mg PO HS 02/16/23 04/28/23 History XL] Cyclobenzaprine [Flexeril] 5 mg PO TID PRN #15 tablet 03/02/23 04/28/23 Rx diphenhydrAMINE [Benadryl] 50 mg PO Q6HR PRN cap 03/11/23 04/28/23 Rx Sulfamethox-Tmp 800-160Mg [Bactrim 1 tab PO Q12HR #28 tab 04/14/23 04/28/23 Rx DS 800-160 mg] rOPINIRole HCL [Requip] 2 mg PO HS 04/28/23 04/28/23 History Allergies Allergy/AdvReac Type Severity Reaction Status Date / Time Penicillins Allergy Severe Anaphylaxis Verified 04/28/23 23:20 vancomycin Allergy Severe Swelling Verified 04/28/23 23:20 in lips albuterol [From Ventolin HFA] Allergy Rapid Verified 04/28/23 23:20 Heart Rate cefepime Allergy Swelling Verified 04/28/23 23:20 clindamycin Allergy Anaphylaxis Verified 04/28/23 23:20 dexamethasone [From Decadron] Allergy Unknown Verified 04/28/23 23:20 Influenza Virus Vaccines Allergy Unknown Verified 04/28/23 23:20 latex Allergy Unknown Verified 04/28/23 23:20 morphine Allergy Unknown Verified 04/28/23 23:20 prochlorperazine Allergy Unknown Verified 04/28/23 23:20 [From Compazine] galcanezumab-gnlm AdvReac Confusion, Verified 04/28/23 23:20 [From Emgality Pen] increased blood pressure metoclopramide [From Reglan] AdvReac "felt like Verified 04/28/23 23:20 I needed to jump out of my skin" Physical Exam Vitals: Vital Signs Temp Pulse Pulse Resp BP BP Pulse Ox 04/29/23 07:29 97.5 F L 69 17 109/72 96 04/29/23 02:11 18 04/29/23 01:49 98.3 F 67 18 108/61 93 L 04/29/23 01:13 98.2 F 70 18 132/91 97 04/29/23 00:08 70 20 131/95 97 04/28/23 22:37 98.0 F 70 20 134/86 98 04/28/23 16:22 81 22 153/88 98 Intake and Output 04/28/23 04/29/23 04/29/23 22:59 06:59 14:59 Intake Total 240 Balance 240 Intake: Oral 240 Other: Voiding Method Toilet Toilet Bedside Commode # Voids 1 Weight 67.585 kg 67.585 kg Results CBC & Chem 7: 04/28/23 21:07 04/28/23 21:07 Labs: Abnormal Lab Results - Last 24 Hours (Table) 04/28/23 04/28/23 04/28/23 Range/Units 21:07 21:07 23:48 RDW 17.0 H (11.5-15.5) % Lymphocytes # 0.7 L (1.0-4.8) k/uL APTT 32.6 H (22.0-30.0) sec Carbon Dioxide 17 L (22-30) mmol/L BUN 18 H (7-17) mg/dL Creatinine 1.67 H (0.52-1.04) mg/dL Urine Protein (Negative) 04/29/23 Range/Units 08:30 RDW (11.5-15.5) % Lymphocytes # (1.0-4.8) k/uL APTT (22.0-30.0) sec Carbon Dioxide (22-30) mmol/L BUN (7-17) mg/dL Creatinine (0.52-1.04) mg/dL Urine Protein Trace H (Negative) Thrombosis Risk Factor Assmnt - Choose All That Apply Any of the Below Risk Factors Present?: Yes Each Factor Represents 1 point: Age 41-60 years Each Risk Factor Represents 3 Points: History of DVT/PE, Positive Lupus Anticoagulant Thrombosis Risk Factor Assessment Total Risk Factor Score: 7 Thrombosis Risk Factor Assessment Level: High Risk
[2023-04-29] MEDS: SODIUM BICARBONATE TAB 650 MG TAB PO SCH (21:16)
[2023-04-30] MEDS: SODIUM CHLORIDE 0.9% 1,000 ML IV SCH ×4 (00:36→21:18)
[2023-04-30] MEDS: HYDROmorphone 1 MG/ML 1 ML SYRINGE IVP PRN ×6 (02:01→19:38)
--- NOTE | 2023-04-30 05:56 | P.CONS ---
History of Present Illness - Reason for Consult Consult date: 04/29/23 - History of Present Illness Patient is a 58-year-old female with a past medical history significant for antiphospholipid antibodies syndrome with multiple PEs seizure disorder cardiac valve replacement patient mention she recently did have a CT of abdominal pelvis done at [facility] for the patient has received contrast through peripheral IV that was placed to the right forearm patient concerned something may have been some infiltration as the patient subsequently noticed to having increasing blister pain swelling and redness to the right forearm site of the IV which was subsequently discontinued with worsening symptoms the patient presented to the hospital patient had been complaining of some chills but no high-grade fever has been recorded patient was not tachycardic hypotensive or hypoxic white count is 4.8 creatinine 1.67 liver enzymes are normal urine has been negative influenza RSV COVID testing was negative patient did have a x-ray of the forearm diffuse cellulitis appears to be soft tissue ulcer or blister along the radial aspect of the wrist blood cultures obtained which are currently pending patient was started on cefepime keeping in mind her previous infection with Serratia infectious disease was consulted for further management of antibiotic therapy Past Medical History Past Medical History: Blood Disorder, Pulmonary Embolus (PE), Renal Disease, Seizure Disorder Additional Past Medical History / Comment(s): Antiphospholipid antibody syndrome which causes clots and bleeding, multiple PEs, R renal artery embolism/now atrophic, CKD stage III, hypotension, hypokalemia especially w/stress, lupus, pyoderm grangrenosum, decreased pituitary function pt states d/t clot, migraines, chonic cervical/back pain, herniated discs, RLS, vertigo, recent adm. for low K+. lupus History of Any Multi-Drug Resistant Organisms: C-DIFF Year Discovered:: 03/02/23 MDRO Source:: Stool Past Surgical History: Back Surgery, Breast Surgery, Cardiac Valve Replacement, Section, Cholecystectomy, Heart Catheterization, Hysterectomy, Pacemaker Additional Past Surgical History / Comment(s): pacemaker d/t bradycardia/hypotension with last one place in 2013 in [place], [place], 3 lower back surgeries, bilateral breast reduction. 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 She is independent. Smoking Status: Never smoker Past Alcohol Use History: None Reported Past Drug Use History: None Reported Additional Drug Use History / Comment(s): Marijuana use prn per pt. - Past Family History Mother Additional Family Medical History / Comment(s): Mother at the age of 49 yrs after surgery for silicon breast implants with a leak that caused ARDS and DIC per pt Father Family Medical History: Cancer, Hyperlipidemia, Hypertension Additional Family Medical History / Comment(s): Father is a colon cancer survivor. Medications and Allergies Home Medications Medication Instructions Recorded Confirmed Type Atorvastatin [Lipitor] 40 mg PO HS 09/24/21 04/28/23 History Cholestyramine (with Sugar) 4 gm PO DAILY PRN 09/24/21 04/28/23 History [Cholestyramine Packet] Gabapentin 300 mg PO QID 09/24/21 04/28/23 History Sertraline [Zoloft] 200 mg PO DAILY 09/24/21 04/28/23 History Dicyclomine [Bentyl] 20 mg PO TID PRN #30 tablet 04/30/22 04/28/23 Rx Apixaban [Eliquis] 5 mg PO BID 05/29/22 04/28/23 History busPIRone HCl [Buspar] 5 mg PO BID 06/11/22 04/28/23 History Bumetanide [BUMEX] 2 mg PO DAILY 06/24/22 04/28/23 History Zonisamide [Zonegran] 100 mg PO Q12HR 30 Days #60 cap 07/26/22 04/28/23 Rx Fludrocortisone [Florinef] 0.1 mg PO DAILY 09/20/22 04/28/23 History Ondansetron [Zofran] 4 mg PO Q8H PRN 11/29/22 04/28/23 History Nystatin 100,000 Unit/gm Powd 1 applic TOPICAL BID PRN 01/06/23 04/28/23 History [Mycostatin Powder] Ipratropium Nebulized [Atrovent 0.5 mg INHALATION RT-QID PRN 01/12/23 04/28/23 History Nebulized 0.2 MG/ML] Potassium Chloride ER [K-Dur 20] 20 meq PO DAILY 01/12/23 04/28/23 History Famotidine 20 mg PO BID 02/16/23 04/28/23 History HYDROcodone/APAP 10-325MG [[place] 0.5 tab PO TID 02/16/23 04/28/23 History 10-325] Metoprolol Succinate (ER) [Toprol 50 mg PO HS 02/16/23 04/28/23 History XL] Cyclobenzaprine [Flexeril] 5 mg PO TID PRN #15 tablet 03/02/23 04/28/23 Rx diphenhydrAMINE [Benadryl] 50 mg PO Q6HR PRN cap 03/11/23 04/28/23 Rx Sulfamethox-Tmp 800-160Mg [Bactrim 1 tab PO Q12HR #28 tab 04/14/23 04/28/23 Rx DS 800-160 mg] rOPINIRole HCL [Requip] 2 mg PO HS 04/28/23 04/28/23 History Allergies Allergy/AdvReac Type Severity Reaction Status Date / Time Penicillins Allergy Severe Anaphylaxis Verified 04/28/23 23:20 vancomycin Allergy Severe Swelling Verified 04/28/23 23:20 in lips albuterol [From Ventolin HFA] Allergy Rapid Verified 04/28/23 23:20 Heart Rate cefepime Allergy Swelling Verified 04/28/23 23:20 clindamycin Allergy Anaphylaxis Verified 04/28/23 23:20 dexamethasone [From Decadron] Allergy Unknown Verified 04/28/23 23:20 Influenza Virus Vaccines Allergy Unknown Verified 04/28/23 23:20 latex Allergy Unknown Verified 04/28/23 23:20 morphine Allergy Unknown Verified 04/28/23 23:20 prochlorperazine Allergy Unknown Verified 04/28/23 23:20 [From Compazine] galcanezumab-gnlm AdvReac Confusion, Verified 04/28/23 23:20 [From Emgality Pen] increased blood pressure metoclopramide [From Reglan] AdvReac "felt like Verified 04/28/23 23:20 I needed to jump out of my skin" Physical Exam Vitals: Vital Signs Temp Pulse Pulse Resp BP BP Pulse Ox 04/29/23 11:04 94 L 04/29/23 07:29 97.5 F L 69 17 109/72 96 04/29/23 02:11 18 04/29/23 01:49 98.3 F 67 18 108/61 93 L 04/29/23 01:13 98.2 F 70 18 132/91 97 04/29/23 00:08 70 20 131/95 97 04/28/23 22:37 98.0 F 70 20 134/86 98 04/28/23 16:22 81 22 153/88 98 Intake and Output 04/28/23 04/29/23 04/29/23 22:59 06:59 14:59 Intake Total 240 Balance 240 Intake: Oral 240 Other: Voiding Method Toilet Toilet Bedside Commode # Voids 1 Weight 67.585 kg 67.585 kg Results CBC & Chem 7: 04/28/23 21:07 04/28/23 21:07 Labs: Abnormal Lab Results - Last 24 Hours (Table) 04/28/23 04/28/23 04/28/23 Range/Units 21:07 21:07 23:48 RDW 17.0 H (11.5-15.5) % Lymphocytes # 0.7 L (1.0-4.8) k/uL APTT 32.6 H (22.0-30.0) sec Carbon Dioxide 17 L (22-30) mmol/L BUN 18 H (7-17) mg/dL Creatinine 1.67 H (0.52-1.04) mg/dL Urine Protein (Negative) 04/29/23 Range/Units 08:30 RDW (11.5-15.5) % Lymphocytes # (1.0-4.8) k/uL APTT (22.0-30.0) sec Carbon Dioxide (22-30) mmol/L BUN (7-17) mg/dL Creatinine (0.52-1.04) mg/dL Urine Protein Trace H (Negative) Assessment and Plan Plan: 1patient with a right upper extremity cellulitis with area of blistering apparently started after the patient did have infiltration of the dry when she was getting CT of abdominal pelvis few weeks ago and question of possible chemical dermatitis a component of cellulitis not entirely excluded. 2local cultures have been obtained to guide further antibiotic therapy. 3patient with multiple antibiotic ALLERGIES that would limit the number of antibiotic safe to use. 4local wound care with Medihoney followed by moist dressing change daily. 5continue with cefepime while waiting for the culture to finalize. We will follow on clinical condition and cultures to further adjust medication if needed Thank you for this consultation we will follow the patient along with you Dictation was produced using [employer] dictation software. please excuse any grammatical, word or spelling errors.
[2023-04-30] MEDS: diphenhydrAMINE 50 MG/ML 1 ML VIAL IVP SCH ×3 (08:27→21:15)
[2023-04-30] MEDS: ONDANSETRON 4 MG/2 ML VIAL IVP PRN ×2 (08:50→19:37)
[2023-04-30] MEDS: HYDROcodone/APAP 5-325MG 1 EACH TAB PO SCH ×3 (10:06→21:14)
[2023-04-30] MEDS: SODIUM BICARBONATE TAB 650 MG TAB PO SCH ×3 (10:06→21:14)
[2023-04-30] MEDS: FAMOTIDINE 20 MG TAB PO SCH (10:08)
[2023-04-30] MEDS: SERTRALINE 100 MG TAB PO SCH (10:08)
[2023-04-30] MEDS: BUMETANIDE 1 MG TAB PO SCH (10:08)
[2023-04-30] MEDS: busPIRone HCl 5 MG TAB PO SCH ×2 (10:08→21:14)
[2023-04-30] MEDS: APIXABAN 5 MG TAB PO SCH ×2 (10:08→21:15)
[2023-04-30] MEDS: POTASSIUM CHLORIDE ER 20 MEQ TAB.ER PO SCH (10:08)
[2023-04-30] MEDS: ZONISAMIDE 100 MG CAP PO SCH ×2 (10:09→21:15)
[2023-04-30] MEDS: FLUDROCORTISONE 0.1 MG TAB PO SCH (10:09)
[2023-04-30] MEDS: CEFEPIME 2 GM in SODIUM CHLORIDE 0.9% 100 ML IVPB SCH ×2 (10:09→21:15)
--- NOTE | 2023-04-30 12:46 | P.PN ---
Subjective Progress Note Date: 04/30/23 Principal diagnosis: Reason for follow-up is right forearm cellulitis Patient is a 58-year-old female with a past medical history significant for antiphospholipid antibodies syndrome with multiple PEs seizure disorder cardiac valve replacement patient mention she recently did have a CT of abdominal pelvis done at [facility] for the patient has received c ontrast through peripheral IV that was placed to the right forearm, patient subsequently developing blistering ulceration pain and redness to the right forearm concerning for cellulitis On today's evaluation that is 04/30/2023, the patient denies having any fever or any chills the patient is breathing comfortably patient pain to the right forearm slightly decreased in intensity denies any nausea no vomiting no abdominal pain no diarrhea. No lab draw today cultures are currently pending Objective - Vital Signs Vital signs: Vital Signs Temp 98.5 F 04/30/23 11:51 Pulse 79 04/30/23 11:51 Resp 16 04/30/23 11:51 BP 133/82 04/30/23 11:51 Pulse Ox 96 04/30/23 12:03 FiO2 Intake & Output 04/29/23 04/30/23 04/30/23 18:59 06:59 18:59 Intake Total 1080 Balance 1080 Intake: Oral 1080 Other: Voiding Method Toilet Toilet Toilet Bedside Commode Bedside Commode Bedside Commode # Voids 3 3 2 - Exam GENERAL DESCRIPTION: Middle-aged female lying in bed in no distress RESPIRATORY SYSTEM: Unlabored breathing , decreased breath sounds at bases HEART: S1 S2 regular rate and rhythm , ABDOMEN: Soft , no tenderness EXTREMITIES: Right forearm is currently dressed no drainage on the dressing - Labs CBC & Chem 7: 04/28/23 21:07 04/28/23 21:07 Labs: Microbiology - Last 24 Hours (Table) 04/29/23 13:00 Gram Stain - Preliminary Arm - Right Assessment and Plan (1) Right forearm cellulitis Current Visit: Yes Status: Acute Code(s): L03.113 - CELLULITIS OF RIGHT UPPER LIMB SNOMED Code(s): 73497267538237580 (2) Open wound of right forearm Current Visit: Yes Status: Acute Code(s): S51.801A - UNSPECIFIED OPEN WOUND OF RIGHT FOREARM, INITIAL ENCOUNTER SNOMED Code(s): 83189467190626456 (3) Allergy to multiple antibiotics Current Visit: Yes Status: Acute Code(s): Z88.1 - ALLERGY STATUS TO OTHER AN TIBIOTIC AGENTS SNOMED Code(s): 800097707 Plan: 1patient with a right upper extremity cellulitis with area of blistering apparently started after the patient did have infiltration of the dry when she was getting CT of abdominal pelvis few weeks ago and question of possible chemical dermatitis a component of cellulitis not entirely excluded. 2local cultures have been obtained to guide further antibiotic therapy. 3patient with multiple antibiotic ALLERGIES that would limit the number of antibiotic safe to use. 4local wound care with Medihoney followed by moist dressing change daily. 5patient to continue with the cefepime while waiting for the culture to finalize and monitor clinical course closely Dictation was produced using [employer] dictation software. please excuse any grammatical, word or spelling errors.
[2023-04-30] MEDS: METOPROLOL SUCCINATE (ER) 50 MG TAB.ER.24H PO SCH (21:14)
[2023-04-30] MEDS: ATORVASTATIN 40 MG TAB PO SCH (21:15)
--- NOTE | 2023-04-30 22:37 | P.PN ---
Progress Note - Text Progress Note Date: 04/30/23 Chief Complaint: Right forearm infection Pleasant 58-year-old patient follows Dr. Franklin Hassan. Rounding for Dr. 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 Patient don't of infection there. Was started on Bactrim for the same. Been on it for 3 weeks. Progressively getting more worse with more swelling. No skin. Having chills. Patient had diarrhea for last 34 days. None today. No abdominal pain. No fever no chills. 04/30/2023: Some improvement in the right forearm. Per Dr. Maki no further intervention surgically. Continue IV cefepime. Keep right arm elevated. Looking a bit better. Active Medications Hydrocodone Bitart/Acetaminophen (Hydrocodone/Apap 5-325mg 1 Each Tab) 1 each PO TID [facility] Last Admin: 04/30/23 21:14 Dose: 1 each Apixaban (Apixaban 5 Mg Tab) 5 mg PO BID [facility]; Protocol Last Admin: 04/30/23 21:15 Dose: 5 mg Atorvastatin Calcium (Atorvastatin 40 Mg Tab) 40 mg PO HS [facility] Last Admin: 04/30/23 21:15 Dose: 40 mg Bumetanide (Bumetanide 1 Mg Tab) 2 mg PO DAILY [facility] Last Admin: 04/30/23 10:08 Dose: 2 mg Buspirone HCl (Buspirone Hcl 5 Mg Tab) 5 mg PO BID [facility] Last Admin: 04/30/23 21:14 Dose: 5 mg Cholestyramine Resin (Cholestyramine (With Sugar) 4 Gm Packet) 4 gm PO DAILY PRN PRN Reason: Diarrhea Cyclobenzaprine HCl (Cyclobenzaprine 5 Mg Tab) 5 mg PO TID PRN PRN Reason: Muscle Spasm Dicyclomine HCl (Dicyclomine 20 Mg Tab) 20 mg PO TID PRN PRN Reason: Pain Diphenhydramine HCl (Diphenhydramine 50 Mg/Ml 1 Ml Vial) 50 mg IVP TID [facility] Last Admin: 04/30/23 21:15 Dose: 50 mg Diphenhydramine HCl (Diphenhydramine 25 Mg Cap) 50 mg PO Q6HR PRN PRN Reason: Allergy Symptoms Famotidine (Famotidine 20 Mg Tab) 20 mg PO DAILY [facility] Last Admin: 04/30/23 10:08 Dose: 20 mg Fludrocortisone Acetate (Fludrocortisone 0.1 Mg Tab) 0.1 mg PO DAILY [facility] Last Admin: 04/30/23 10:09 Dose: 0.1 mg Hydromorphone HCl (Hydromorphone 1 Mg/Ml 1 Ml Syringe) 1 mg IVP Q3HR PRN PRN Reason: Moderate Pain (Scale 4 to 6) Last Admin: 04/30/23 19:38 Dose: 1 mg Sodium Chloride (Saline 0.9%) 1,000 mls @ 130 mls/hr IV .Q7H42M [facility] Last Admin: 04/30/23 21:18 Dose: 130 mls/hr Cefepime HCl 2 gm/ Sodium (Chloride) 100 mls @ 25 mls/hr IVPB Q12HR [facility]; Protocol Last Admin: 04/30/23 21:15 Dose: 25 mls/hr Ipratropium [place] (Ipratropium 0.5 Mg/2.5 Ml Nebu) 0.5 mg INHALATION RT-QID PRN PRN Reason: Shortness Of Breath Metoprolol Succinate (Metoprolol Succinate (Er) 50 Mg Tab.Er.24h) 50 mg PO HS [facility] Last Admin: 04/30/23 21:14 Dose: 50 mg Naloxone HCl (Naloxone 0.4 Mg/Ml 1 Ml Vial) 0.2 mg IV Q2M PRN PRN Reason: Opioid Reversal Ondansetron HCl (Ondansetron 4 Mg/2 Ml Vial) 4 mg IVP Q8HR PRN PRN Reason: Nausea And Vomiting Last Admin: 04/30/23 19:37 Dose: 4 mg Potassium Chloride (Potassium Chloride Er 20 Meq Tab.Er) 20 meq PO DAILY [facility] Last Admin: 04/30/23 10:08 Dose: 20 meq Ropinirole HCl (Ropinirole Hcl 1 Mg Tab) 2 mg PO HS [facility] Last Admin: 04/30/23 21:15 Dose: 2 mg Sertraline HCl (Sertraline 100 Mg Tab) 200 mg PO DAILY [facility] Last Admin: 04/30/23 10:08 Dose: 200 mg Sodium Bicarbonate (Sodium Bicarbonate Tab 650 Mg Tab) 650 mg PO TID [facility] Last Admin: 04/30/23 21:14 Dose: 650 mg Zonisamide (Zonisamide 100 Mg Cap) 100 mg PO Q12HR [facility] Last Admin: 04/30/23 21:15 Dose: 100 mg Social history: . No smoking or alcohol. Medical marijuana Physical examination: VITAL SIGNS: 98.5, 79, 16, 133 Nathalia 2, 92% room air GENERAL: In bed, rather comfortable EYES: Pupils equal. Conjunctiva normal. HEENT: External appearance of nose and ears normal, oral cavity grossly normal. NECK: JVD not raised; masses not palpable. HEART: First and second heart sounds are normal; no edema. LUNGS: Respiratory rate normal; clear to auscultation. ABDOMEN: Soft, nontender, liver spleen not palpable, no masses palpable. PSYCH: Alert and oriented x3; mood and affect normal. MUSCULOSKELETAL:No Clubbing/cyanosis;muscles-grossly intact NEUROLOGICAL: Cranial nerves grossly intact; no facial asymmetry, power and sensation grossly intact. LYMPHATICS: No lymph nodes palpable in the axilla and neck DERMATOLOGICAL: Right upper extremity forearm. Area of swelling. No skin tenderness. Subcutaneous fluid. Distal arm is warm. Good capillary reflex. On some improvement INVESTIGATIONS, reviewed in the clinical context: White count 4.8 hemoglobin 12.9 platelets 231 potassium 4.1 BUN 18 creatinine 1.67 Influenza type A, type B, RSV, COVID-19: Not detected Previous labs: Creatinine 1.5 - on 03/23/2023 Assessment plan: -Acute infection cannot rule out underlying abscess of the right forearm and IV access site. Having failed outpatient treatment with Bactrim for 3 weeks. On some improvement IV cefepime.. ID following Dr. Maki not for any further surgical intervention -History of pyoderma gangrenosa and severe episodes -Antiphospholipid antibody syndrome causing multiple clots and bleeding Eliquis -Chronic kidney disease stage III -Chronic back pain with herniated disc [place] -Restless legs syndrome Requip -Depression Zoloft BuSpar -Pituitary dysfunction Florinef Past Medical History Past Medical History: Blood Disorder, Pulmonary Embolus (PE), Renal Disease, Seizure Disorder Additional Past Medical History / Comment(s): Antiphospholipid antibody syndrome which causes clots and bleeding, multiple PEs, R renal artery embolism/now atrophic, CKD stage III, hypotension, hypokalemia especially w/stress, lupus, pyoderm grangrenosum, decreased pituitary function pt states d/t clot, migraines, chonic cervical/back pain, herniated discs, RLS, vertigo, recent adm. for low K+. lupus History of Any Multi-Drug Resistant Organisms: C-DIFF Date of last positivie culture/infection: 03/02/23 MDRO Source:: Stool Past Surgical History: Back Surgery, Breast Surgery, Cardiac Valve Replacement, Section, Cholecystectomy, Heart Catheterization, Hysterectomy, Pacemaker Additional Past Surgical History / Comment(s): pacemaker d/t bradycardia/hypotension with last one place in 2013 in [place], [place], 3 lower back surgeries, bilateral breast reduction. 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 She is independent. Smoking Status: Never smoker Past Alcohol Use History: None Reported Past Drug Use History: None Reported Additional Drug Use History / Comment(s): Marijuana use prn per pt.
[2023-05-01] MEDS: ONDANSETRON 4 MG/2 ML VIAL IVP PRN ×2 (06:19→15:29)
[2023-05-01] MEDS: HYDROmorphone 1 MG/ML 1 ML SYRINGE IVP PRN ×4 (06:19→20:12)
[2023-05-01] MEDS: SODIUM CHLORIDE 0.9% 1,000 ML IV SCH ×3 (06:33→22:59)
[2023-05-01] MEDS: CEFEPIME 2 GM in SODIUM CHLORIDE 0.9% 100 ML IVPB SCH ×2 (07:46→20:11)
[2023-05-01] MEDS: diphenhydrAMINE 50 MG/ML 1 ML VIAL IVP SCH ×3 (07:53→20:12)
[2023-05-01] MEDS: POTASSIUM CHLORIDE ER 20 MEQ TAB.ER PO SCH (10:06)
[2023-05-01] MEDS: HYDROcodone/APAP 5-325MG 1 EACH TAB PO SCH ×3 (10:06→22:21)
[2023-05-01] MEDS: BUMETANIDE 1 MG TAB PO SCH (10:07)
[2023-05-01] MEDS: FAMOTIDINE 20 MG TAB PO SCH (10:07)
[2023-05-01] MEDS: APIXABAN 5 MG TAB PO SCH ×2 (10:07→20:11)
[2023-05-01] MEDS: busPIRone HCl 5 MG TAB PO SCH ×2 (10:07→20:11)
[2023-05-01] MEDS: SODIUM BICARBONATE TAB 650 MG TAB PO SCH ×3 (10:08→22:23)
[2023-05-01] MEDS: FLUDROCORTISONE 0.1 MG TAB PO SCH (10:08)
[2023-05-01] MEDS: SERTRALINE 100 MG TAB PO SCH (10:08)
[2023-05-01] MEDS: ZONISAMIDE 100 MG CAP PO SCH ×2 (10:08→20:13)
--- NOTE | 2023-05-01 16:24 | P.PN ---
Subjective Progress Note Date: 05/01/23 Principal diagnosis: Reason for follow-up is right forearm cellulitis Patient is a 58-year-old female with a past medical history significant for antiphospholipid antibodies syndrome with multiple PEs seizure disorder cardiac valve replacement patient mention she recently did have a CT of abdominal pelvis done at [facility] for the patient has received c ontrast through peripheral IV that was placed to the right forearm, patient subsequently developing blistering ulceration pain and redness to the right forearm concerning for cellulitis On today's evaluation that is 05/01/2023, the patient denies having any fever or any chills, the patient is breathing comfortably patient denies having any chest pain shortness with, abdominal pain or worsening pain to the right forearm wound area. No labs has been obtained today culture has been negative so far Objective - Vital Signs Vital signs: Vital Signs Temp 98.6 F 05/01/23 07:40 Pulse 71 05/01/23 07:40 Resp 17 05/01/23 07:40 BP 120/65 05/01/23 07:40 Pulse Ox 97 05/01/23 07:40 FiO2 Intake & Output 04/30/23 05/01/23 05/01/23 18:59 06:59 18:59 Intake Total 1660 Balance 1660 Intake: Intake, IV Titration 1660 Amount Cefepime 2 gm In Sodium 100 Chloride 0.9% 100 ml @ 25 mls/hr IVPB Q12HR [facility] Rx #:[id number] Sodium Chloride 0.9% 1, 1560 000 ml @ 130 mls/hr IV . Q7H42M [facility] Rx#:[id number] Other: Voiding Method Toilet Toilet Toilet Bedside Commode Bedside Commode Bedside Commode # Voids 2 4 - Exam GENERAL DESCRIPTION: Middle-aged female lying in bed in no distress RESPIRATORY SYSTEM: Unlabored breathing , decreased breath sounds at bases HEART: S1 S2 regular rate and rhythm , ABDOMEN: Soft , no tenderness EXTREMITIES: Left forearm wound still have some skin necrosis some erythema no foul-smelling drainage - Labs CBC & Chem 7: 04/28/23 21:07 04/28/23 21:07 Labs: Microbiology - Last 24 Hours (Table) 04/29/23 13:00 Gram Stain - Final Arm - Right Wound Culture - Final 12/28/23 22:25 Blood Culture - Preliminary Blood 04/28/23 22:40 Blood Culture - Preliminary Blood Assessment and Plan (1) Right forearm cellulitis Current Visit: Yes Status: Acute Code(s): L03.113 - CELLULITIS OF RIGHT UPPER LIMB SNOMED Code(s): 30556489096238258 (2) Open wound of right forearm Current Visit: Yes Status: Acute Code(s): S51.801A - UNSPECIFIED OPEN WOUND OF RIGHT FOREARM, INITIAL ENCOUNTER SNOMED Code(s): 91196382672698655 (3) Allergy to multiple antibiotics Current Visit: Yes Status: Acute Code(s): Z88.1 - ALLERGY STATUS TO OTHER ANTIBIOTIC AGENTS SNOMED Code(s): 966582863 Plan: 1patient with a right upper extremity cellulitis with area of blistering apparently started after the patient did have infiltration of the dry when she was getting CT of abdominal pelvis few weeks ago and question of possible chemical dermatitis a component of cellulitis not entirely excluded. 2local cultures have been obtained to guide further antibiotic therapy. 3patient with multiple antibiotic ALLERGIES that would limit the number of antibiotic safe to use. 4patient to continue cefepime still have evidence of skin necrosis and may benefit from surgical debridement will discuss with vascular surgery continue local wound care with Medihoney followed by moist dressing for now Dictation was produced using [employer] software. please excuse any grammatical, word or spelling errors. Time with Patient: Less than 30
[2023-05-01] MEDS ORDERED: NYSTATIN 100,000 UNIT/GM POWD 15 GM TOPICAL PRN (17:29)
--- NOTE | 2023-05-01 17:50 | P.PN ---
Progress Note - Text Progress Note Date: 05/01/23 Chief Complaint: Right forearm infection Pleasant 58-year-old patient follows Dr. Franklin Hassan. Rounding for Dr. 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 Patient don't of infection there. Was started on Bactrim for the same. Been on it for 3 weeks. Progressively getting more worse with more swelling. No skin. Having chills. Patient had diarrhea for last 34 days. None today. No abdominal pain. No fever no chills. 04/30/2023: Some improvement in the right forearm. Per Dr. Maki no further intervention surgically. Continue IV cefepime. Keep right arm elevated. Looking a bit better. 05/01/2023: Continue his IV antibiotic. Being followed by ID and vascular. Tolerating some diet. Afebrile. Still some swelling of the right forearm. Active Medications Hydrocodone Bitart/Acetaminophen (Hydrocodone/Apap 5-325mg 1 Each Tab) 1 each PO TID [facility] Last Admin: 05/01/23 16:18 Dose: 1 each Apixaban (Apixaban 5 Mg Tab) 5 mg PO BID [facility]; Protocol Last Admin: 05/01/23 10:07 Dose: 5 mg Atorvastatin Calcium (Atorvastatin 40 Mg Tab) 40 mg PO HS [facility] Last Admin: 04/30/23 21:15 Dose: 40 mg Bumetanide (Bumetanide 1 Mg Tab) 2 mg PO DAILY [facility] Last Admin: 05/01/23 10:07 Dose: 2 mg Buspirone HCl (Buspirone Hcl 5 Mg Tab) 5 mg PO BID [facility] Last Admin: 05/01/23 10:07 Dose: 5 mg Cholestyramine Resin (Cholestyramine (With Sugar) 4 Gm Packet) 4 gm PO DAILY PRN PRN Reason: Diarrhea Cyclobenzaprine HCl (Cyclobenzaprine 5 Mg Tab) 5 mg PO TID PRN PRN Reason: Muscle Spasm Dicyclomine HCl (Dicyclomine 20 Mg Tab) 20 mg PO TID PRN PRN Reason: Pain Diphenhydramine HCl (Diphenhydramine 50 Mg/Ml 1 Ml Vial) 50 mg IVP TID [facility] Last Admin: 05/01/23 16:00 Dose: Not Given Diphenhydramine HCl (Diphenhydramine 25 Mg Cap) 50 mg PO Q6HR PRN PRN Reason: Allergy Symptoms Famotidine (Famotidine 20 Mg Tab) 20 mg PO DAILY [facility] Last Admin: 05/01/23 10:07 Dose: 20 mg Fludrocortisone Acetate (Fludrocortisone 0.1 Mg Tab) 0.1 mg PO DAILY [facility] Last Admin: 05/01/23 10:08 Dose: 0.1 mg Hydromorphone HCl (Hydromorphone 1 Mg/Ml 1 Ml Syringe) 1 mg IVP Q3HR PRN PRN Reason: Moderate Pain (Scale 4 to 6) Last Admin: 05/01/23 15:29 Dose: 1 mg Sodium Chloride (Saline 0.9%) 1,000 mls @ 130 mls/hr IV .Q7H42M [facility] Last Admin: 05/01/23 16:00 Dose: Not Given Cefepime HCl 2 gm/ Sodium (Chloride) 100 mls @ 25 mls/hr IVPB Q12HR [facility]; Protocol Last Admin: 05/01/23 07:46 Dose: 25 mls/hr Ipratropium [place] (Ipratropium 0.5 Mg/2.5 Ml Nebu) 0.5 mg INHALATION RT-QID PRN PRN Reason: Shortness Of Breath Metoprolol Succinate (Metoprolol Succinate (Er) 50 Mg Tab.Er.24h) 50 mg PO [facility] Last Admin: 04/30/23 21:14 Dose: 50 mg Naloxone HCl (Naloxone 0.4 Mg/Ml 1 Ml Vial) 0.2 mg IV Q2M PRN PRN Reason: Opioid Reversal Nystatin (Nystatin 100,000 Unit/Gm Powd 15 Gm) 1 applic TOPICAL TID PRN; Protocol PRN Reason: rash Ondansetron HCl (Ondansetron 4 Mg/2 Ml Vial) 4 mg IVP Q8HR PRN PRN Reason: Nausea And Vomiting Last Admin: 05/01/23 15:29 Dose: 4 mg Potassium Chloride (Potassium Chloride Er 20 Meq Tab.Er) 20 meq PO DAILY [facility] Last Admin: 05/01/23 10:06 Dose: 20 meq Ropinirole HCl (Ropinirole Hcl 1 Mg Tab) 2 mg PO HS [facility] Last Admin: 04/30/23 21:15 Dose: 2 mg Sertraline HCl (Sertraline 100 Mg Tab) 200 mg PO DAILY [facility] Last Admin: 05/01/23 10:08 Dose: 200 mg Sodium Bicarbonate (Sodium Bicarbonate Tab 650 Mg Tab) 650 mg PO TID [facility] Last Admin: 05/01/23 16:18 Dose: 650 mg Zonisamide (Zonisamide 100 Mg Cap) 100 mg PO Q12HR [facility] Last Admin: 05/01/23 10:08 Dose: 100 mg Social history: . No smoking or alcohol. Medical marijuana Physical examination: VITAL SIGNS: 98.8, 71, 18, 107/63, 97% room air GENERAL: In bed, rather comfortable EYES: Pupils equal. Conjunctiva normal. HEENT: External appearance of nose and ears normal, oral cavity grossly normal. NECK: JVD not raised; masses not palpable. HEART: First and second heart sounds are normal; no edema. LUNGS: Respiratory rate normal; clear to auscultation. ABDOMEN: Soft, nontender, liver spleen not palpable, no masses palpable. PSYCH: Alert and oriented x3; mood and affect normal. MUSCULOSKELETAL:No Clubbing/cyanosis;muscles-grossly intact NEUROLOGICAL: Cranial nerves grossly intact; no facial asymmetry, power and sensation grossly intact. DERMATOLOGICAL: Right upper extremity forearm. Area of swelling. No skin tenderness. Subcutaneous fluid. Distal arm is warm. Good capillary reflex. : Slight improvement INVESTIGATIONS, reviewed in the clinical context: White count 4.8 hemoglobin 12.9 platelets 231 potassium 4.1 BUN 18 creatinine 1.67 Influenza type A, type B, RSV, COVID-19: Not detected Previous labs: Creatinine 1.5 - on 03/23/2023 Assessment plan: -Acute infection cannot rule out underlying abscess of the right forearm and IV access site. Having failed outpatient treatment with Bactrim for 3 weeks. On some improvement IV cefepime.. ID following Dr. Maki not for any further surgical intervention -History of pyoderma gangrenosa and severe episodes -Antiphospholipid antibody syndrome causing multiple clots and bleeding Eliquis -Chronic kidney disease stage III -Chronic back pain with herniated disc [place] -Restless legs syndrome Requip -Depression Zoloft BuSpar -Pituitary dysfunction Florinef Discussed with the patient Past Medical History Past Medical History: Blood Disorder, Pulmonary Embolus (PE), Renal Disease, Seizure Disorder Additional Past Medical History / Comment(s): Antiphospholipid antibody syndrome which causes clots and bleeding, multiple PEs, R renal artery embolism/now atrophic, CKD stage III, hypotension, hypokalemia especially w/stress, lupus, pyoderm grangrenosum, decreased pituitary function pt states d/t clot, migraines, chonic cervical/back pain, herniated discs, RLS, vertigo, recent adm. for low K+. lupus History of Any Multi-Drug Resistant Organisms: C-DIFF Date of last positivie culture/infection: 03/02/23 MDRO Source:: Stool Past Surgical History: Back Surgery, Breast Surgery, Cardiac Valve Replacement, Section, Cholecystectomy, Heart Catheterization, Hysterectomy, Pacemaker Additional Past Surgical History / Comment(s): pacemaker d/t bradycardia/hypotension with last one place in 2013 in [place], [place], 3 lower back surgeries, bilateral breast reduction. 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 She is independent. Smoking Status: Never smoker Past Alcohol Use History: None Reported Past Drug Use History: None Reported Additional Drug Use History / Comment(s): Marijuana use prn per pt.
[2023-05-01] MEDS: METOPROLOL SUCCINATE (ER) 50 MG TAB.ER.24H PO SCH (20:11)
[2023-05-01] MEDS: ATORVASTATIN 40 MG TAB PO SCH (20:11)
[2023-05-02] MEDS: HYDROmorphone 1 MG/ML 1 ML SYRINGE IVP PRN ×6 (00:18→19:50)
[2023-05-02] MEDS: SODIUM CHLORIDE 0.9% 1,000 ML IV SCH ×3 (05:33→21:31)
[2023-05-02] MEDS: diphenhydrAMINE 50 MG/ML 1 ML VIAL IVP SCH ×3 (07:58→20:24)
[2023-05-02] MEDS: ONDANSETRON 4 MG/2 ML VIAL IVP PRN (07:58)
[2023-05-02] MEDS: SERTRALINE 100 MG TAB PO SCH (07:58)
[2023-05-02] MEDS: SODIUM BICARBONATE TAB 650 MG TAB PO SCH ×3 (07:58→21:51)
[2023-05-02] MEDS: APIXABAN 5 MG TAB PO SCH ×2 (07:58→20:28)
[2023-05-02] MEDS: ZONISAMIDE 100 MG CAP PO SCH ×2 (07:59→20:29)
[2023-05-02] MEDS: busPIRone HCl 5 MG TAB PO SCH ×2 (07:59→20:28)
[2023-05-02] MEDS: BUMETANIDE 1 MG TAB PO SCH (07:59)
[2023-05-02] MEDS: FAMOTIDINE 20 MG TAB PO SCH (07:59)
[2023-05-02] MEDS: POTASSIUM CHLORIDE ER 20 MEQ TAB.ER PO SCH (07:59)
[2023-05-02] MEDS: FLUDROCORTISONE 0.1 MG TAB PO SCH (07:59)
[2023-05-02] MEDS: CEFEPIME 2 GM in SODIUM CHLORIDE 0.9% 100 ML IVPB SCH ×2 (08:07→20:23)
[2023-05-02] MEDS: HYDROcodone/APAP 5-325MG 1 EACH TAB PO SCH ×3 (09:19→21:51)
[2023-05-02 10:13] LABS: Anisocytosis Slight; HCT 36.5 % (34.0-46.0); HGB 11.7 gm/dL (11.4-16.0); Hypochromasia Slight; MCH 27.4 pg (25.0-35.0); MCV 85.5 fL (80.0-100.0); Mean Platelet Volume 9.3; Platelet Count 164 k/uL (150-450); RBC 4.27 m/uL (3.80-5.40); RDW 17.4 % (11.5-15.5); WBC 4.3 k/uL (3.8-10.6)
[2023-05-02 10:14] LABS: African American GFR (CKD) 54 (>60 ml/min/1.73 sqM); Anion Gap 13 mmol/L; Blood Urea Nitrogen 9 mg/dL (7-17); Calcium 8.9 mg/dL (8.4-10.2); Carbon Dioxide 23 mmol/L (22-30); Chloride 104 mmol/L (98-107); Glucose 81 mg/dL (74-99); Non-African American GFR(CKD) 46 (>60 ml/min/1.73 sqM); Potassium 3.8 mmol/L (3.5-5.1); Sodium 140 mmol/L (137-145)
[2023-05-02 11:09] LABS: Eosinophils # (M) 0.04 k/uL (0-0.7); Lymphocytes # (M) 0.86 k/uL (1.0-4.8); Monocytes # (M) 0.56 k/uL (0-1.0); Neutrophils # (M) 2.84 k/uL (1.3-7.7); Neutrophils % (M) 66 %; Nucleated Red Blood Cells 0 /100 WBC (0-0); Total Cells Counted 100
[2023-05-02] MEDS ORDERED: FLUCONAZOLE IN NACL,ISO-OSM 100 MG in SALINE 1 50ML.BAG IVPB SCH (13:00)
--- NOTE | 2023-05-02 14:26 | CT ---
EXAMINATION TYPE: CT upper extremity RT wo con CT DLP: 2806.1 mGycm, Automated exposure control for dose reduction was used. DATE OF EXAM: 05/02/2023 1:57 PM COMPARISON: None CLINICAL INDICATION:Female, 58 years old with history of abscess; PHH, swelling, redness at prior IV site of Anterior forearm TECHNIQUE: Axial images were obtained of the CT upper extremity RT wo con, Additional coronal and sag ittal reformatted images and soft tissue and bone window were obtained for review. 3-D reconstruction was created on a separate workstation. Contrast used: mL of , (None if empty) Oral contrast used: (None if empty) FINDINGS: Cardiac conduction leads and pacemaker are present. Visualized portions of lungs and heart are grossl y unremarkable. No evidence of fracture or dislocation. There is callus septations within the deltoid muscle suggestive of prior injury.. The osseous structures appear intact. There is no evidence for o rganizing fluid collection. Edema is seen throughout subcutaneous tissues. The gallbladder surgically absent. Right femoral central venous catheter partially visualized. IMPRESSION: Right arm subcutaneous edema without evidence of organizing fluid collection 2 suggest abscess. No evidence of fracture.
--- NOTE | 2023-05-02 14:52 | PN ---
PROGRESS NOTE SUBJECTIVE: This 58-year-old white female came in with right forearm infection antiphospholipid syndrome, pulmonary embolism, seizure disorder in the past, multiple PEs, chronic kidney disease stage 3, pyoderma gangrenosum, restless legs syndrome. She has lupus, tricuspid valve replacement permanent pacemaker 2 weeks ago. Patient had a CAT scan, had an IV line in the right upper arm, was started on Bactrim for infection did not get better. She came to the hospital for admission per Dr. Gomez, who saw her here in the hospital. No further intervention surgically. Continue on IV cefepime, IV antibiotics. We . She has multiple medical problems in general. OBJECTIVE: VITAL SIGNS: Temperature 97% on room air, blood pressure 107/63, respiratory rate 18, temperature 98.1, pulse 71. HEENT: Normocephalic, atraumatic. LUNGS: Clear. ABDOMEN: Soft. PSYCH: Poor mood and affect. NEUROLOGIC: Cranial nerves intact. DERM: Right upper extremity forearm redness and swelling. White count is 4.8, hemoglobin 12.9, platelets 231. Potassium 4.1, BUN is 18, creatinine 1.57. Influenza A/B RSV, COVID not detected. Creatinine 1.5. History of pyoderma gangrenosum, severe episodes, antiphospholipid syndrome, chronic kidney stage 3, chronic back pain with restless legs syndrome, depression, pituitary dysfunction, possible abscess right forearm continue home medicines. Prognosis guarded. MMODL / IJN: [id number] /
[2023-05-02] MEDS ORDERED: FLUCONAZOLE 100 MG TAB PO SCH (16:00)
--- NOTE | 2023-05-02 16:00 | P.PN ---
Subjective Progress Note Date: 05/02/23 Principal diagnosis: Reason for follow-up is right forearm cellulitis Patient is a 58-year-old female with a past medical history significant for antiphospholipid antibodies syndrome with multiple PEs seizure disorder cardiac valve replacement patient mention she recently did have a CT of abdominal pelvis done at [facility] for the patient has received c ontrast through peripheral IV that was placed to the right forearm, patient subsequently developing blistering ulceration pain and redness to the right forearm concerning for cellulitis On today's evaluation that is 05/02/2023, the patient remains to be afebrile, the patient is breathing comfortably on room air without need for supplemental oxygen patient denies having any chest pain shortness of breath or cough, the patient denies any nausea no vomiting no abdominal pain and no diarrhea has been complaining of some discomfort to the right forearm no drainage Patient did have white count 4.3 creatinine is 1.27, local culture has been negative Objective - Vital Signs Vital signs: Vital Signs Temp 98.7 F 05/02/23 11:45 Pulse 73 05/02/23 11:45 Resp 16 05/02/23 11:45 BP 111/70 05/02/23 11:45 Pulse Ox 92 L 05/02/23 11:45 FiO2 Intake & Output 05/01/23 05/02/23 05/02/23 18:59 06:59 18:59 Intake Total 222 Balance 222 Intake: Oral 222 Other: Voiding Method Toilet Toilet Bedside Commode Bedside Commode # Voids 2 2 # Bowel Movements 1 - Exam GENERAL DESCRIPTION: Middle-aged female lying in bed in no distress RESPIRATORY SYSTEM: Unlabored breathing , decreased breath sounds at bases HEART: S1 S2 regular rate and rhythm , ABDOMEN: Soft , no tenderness EXTREMITIES: Left forearm wound still have some skin necrosis some erythema no foul-smelling drainage - Labs CBC & Chem 7: 05/02/23 09:15 05/02/23 09:15 Labs: Abnormal Lab Results - Last 24 Hours (Table) 05/02/23 05/02/23 Range/Units 09:15 09:15 RDW 17.4 H (11.5-15.5) % Lymphocytes # (Manual) 0.86 L (1.0-4.8) k/uL Creatinine 1.27 H (0.52-1.04) mg/dL Microbiology - Last 24 Hours (Table) 04/29/23 13:00 Anaerobic Culture - Preliminary Arm - Right 04/28/23 22:25 Blood Culture - Preliminary Blood 04/28/23 22:40 Blood Culture - Preliminary Blood Assessment and Plan (1) Right forearm cellulitis Current Visit: Yes Status: Acute Code(s): L03.113 - CELLULITIS OF RIGHT UPPER LIMB SNOMED Code(s): 95765701695022210 (2) Open wound of right forearm Current Visit: Yes Status: Acute Code(s): S51.801A - UNSPECIFIED OPEN WOUND OF RIGHT FOREARM, INITIAL ENCOUNTER SNOMED Code(s): 95007476657937148 (3) Allergy to multiple antibiotics Current Visit: Yes Status: Acute Code(s): Z88.1 - ALLERGY STATUS TO OTHER ANTIBIOTIC AGENTS SNOMED Code(s): 085695514 Plan: 1patient with a right upper extremity cellulitis with area of blistering apparently started after the patient did have infiltration of the dry when she was getting CT of abdominal pelvis few weeks ago and question of possible chemical dermatitis a component of cellulitis not entirely excluded. 2local culture has been negative so far patient still have evidence of skin necrosis and some surrounding erythema will benefit from vascular surgery evaluation and possible surgical debridement. 3we will continue patient on cefepime 4patient with possible vaginal yeast infection we will add Diflucan Dictation was produced using [employer] software. please excuse any grammatical, word or spelling errors. Time with Patient: Less than 30
[2023-05-02] MEDS: METOPROLOL SUCCINATE (ER) 50 MG TAB.ER.24H PO SCH (20:28)
[2023-05-02] MEDS: ATORVASTATIN 40 MG TAB PO SCH (20:29)
[2023-05-02] MEDS ORDERED: NYSTAT-TRIAMCIN 100,000-0.1 UNIT/GM-% CREAM 30 GM TUBE TOPICAL SCH (21:00)
[2023-05-02] MEDS: NYSTATIN 100,000UNIT/GM CREAM 30 GM TUBE TOPICAL SCH (21:07)
[2023-05-02] MEDS: TRIAMCINOLONE 0.1% CREAM 80 GM TUBE TOPICAL SCH (21:07)
[2023-05-03] MEDS: HYDROmorphone 1 MG/ML 1 ML SYRINGE IVP PRN ×7 (00:04→20:12)
[2023-05-03] MEDS: SODIUM CHLORIDE 0.9% 1,000 ML IV SCH ×3 (05:39→20:10)
[2023-05-03] MEDS: SODIUM BICARBONATE TAB 650 MG TAB PO SCH ×3 (07:59→22:16)
[2023-05-03] MEDS: SERTRALINE 100 MG TAB PO SCH (07:59)
[2023-05-03] MEDS: busPIRone HCl 5 MG TAB PO SCH ×2 (07:59→19:59)
[2023-05-03] MEDS: CEFEPIME 2 GM in SODIUM CHLORIDE 0.9% 100 ML IVPB SCH ×2 (07:59→20:00)
[2023-05-03] MEDS: HYDROcodone/APAP 5-325MG 1 EACH TAB PO SCH ×3 (07:59→22:16)
[2023-05-03] MEDS: diphenhydrAMINE 50 MG/ML 1 ML VIAL IVP SCH ×3 (07:59→19:59)
[2023-05-03] MEDS: APIXABAN 5 MG TAB PO SCH ×2 (08:00→19:59)
[2023-05-03] MEDS: POTASSIUM CHLORIDE ER 20 MEQ TAB.ER PO SCH (08:00)
[2023-05-03] MEDS: FAMOTIDINE 20 MG TAB PO SCH (08:00)
[2023-05-03] MEDS: FLUCONAZOLE 100 MG TAB PO SCH (08:00)
[2023-05-03] MEDS: BUMETANIDE 1 MG TAB PO SCH (08:01)
[2023-05-03] MEDS: ZONISAMIDE 100 MG CAP PO SCH ×2 (08:01→20:01)
[2023-05-03] MEDS: FLUDROCORTISONE 0.1 MG TAB PO SCH (08:01)
[2023-05-03] MEDS: TRIAMCINOLONE 0.1% CREAM 80 GM TUBE TOPICAL SCH ×2 (08:02→20:01)
[2023-05-03] MEDS: NYSTATIN 100,000UNIT/GM CREAM 30 GM TUBE TOPICAL SCH ×2 (08:02→20:01)
--- NOTE | 2023-05-03 10:52 | P.PN ---
Progress Note - Text Progress Note Date: 05/03/22 The patient has break-through seizure overnight and neurology is consulted. The patient is known to me and has nonepileptic seizure. EEG was ordered by Dr. Whitfield who was covering physician. Patient refused EEG. She also wants to neurology consultation to be discontinued. I discussed this with her nurse. Please notify neurology team if any further concerns.
[2023-05-03] MEDS: ONDANSETRON 4 MG/2 ML VIAL IVP PRN (13:25)
--- NOTE | 2023-05-03 13:33 | P.PN ---
Subjective Progress Note Date: 05/03/23 Principal diagnosis: Reason for follow-up is right forearm cellulitis Patient is a 58-year-old female with a past medical history significant for antiphospholipid antibodies syndrome with multiple PEs seizure disorder cardiac valve replacement patient mention she recently did have a CT of abdominal pelvis done at [facility] for the patient has received c ontrast through peripheral IV that was placed to the right forearm, patient subsequently developing blistering ulceration pain and redness to the right forearm concerning for cellulitis On today's evaluation that is 05/03/2023, the patient remains to be afebrile, the patient is breathing comfortably on room air denies any chest pain shortness of breath or cough no nausea vomiting no abdominal pain, still complaining of pain to the left upper extremity but no drainage Patient did have white count of 4.3 and creatinine 1.27 as of 05/02/2022, patient had a CT of the left upper extremity that was negative for any abscess Objective - Vital Signs Vital signs: Vital Signs Temp 98.6 F 05/03/23 11:41 Pulse 84 05/03/23 12:51 Resp 20 05/03/23 12:51 BP 123/72 05/03/23 12:51 Pulse Ox 99 05/03/23 12:51 FiO2 Intake & Output 05/02/23 05/03/23 05/03/23 18:59 06:59 18:59 Intake Total 590 Balance 590 Intake: Oral 590 Other: Voiding Method Toilet Toilet Toilet Bedside Commode Bedside Commode # Voids 3 2 - Exam GENERAL DESCRIPTION: Middle-aged female lying in bed in no distress RESPIRATORY SYSTEM: Unlabored breathing , decreased breath sounds at bases HEART: S1 S2 regular rate and rhythm , ABDOMEN: Soft , no tenderness EXTREMITIES: Left forearm wound still have some skin necrosis some erythema no foul-smelling drainage - Labs CBC & Chem 7: 05/02/23 09:15 05/02/23 09:15 Labs: Microbiology - Last 24 Hours (Table) 04/29/23 13:00 Anaerobic Culture - Preliminary Arm - Right 04/28/23 22:25 Blood Culture - Preliminary Blood 04/28/23 22:40 Blood Culture - Preliminary Blood Assessment and Plan (1) Right forearm cellulitis Current Visit: Yes Status: Acute Code(s): L03.113 - CELLULITIS OF RIGHT UPPER LIMB SNOMED Code(s): 10705874453771799 (2) Open wound of right forearm Current Visit: Yes Status: Acute Code(s): S51.801A - UNSPECIFIED OPEN WOUND OF RIGHT FOREARM, INITIAL ENCOUNTER SNOMED Code(s): 25938842344326116 (3) Allergy to multiple antibiotics Current Visit: Yes Status: Acute Code(s): Z88.1 - ALLERGY STATUS TO OTHER ANTIBIOTIC AGENTS SNOMED Code(s): 864063698 Plan: 1patient with a right upper extremity cellulitis with area of blistering apparently started after the patient did have infiltration of the dry when she was getting CT of abdominal pelvis few weeks ago and question of possible chemical dermatitis a component of cellulitis not entirely excluded. 2local culture has been negative so far patient still have evidence of skin necrosis and some surrounding erythema will benefit from vascular surgery reevaluation and possible surgical debridement. 3Pt will continue cefepime and Diflucan Dictation was produced using [employer] dictation software. please excuse any grammatical, word or spelling errors. Time with Patient: Less than 30
[2023-05-03 15:23] LABS: Basophils # (A) 0.02 X 10*3/uL (0.00-0.10); Basophils % (A) 0.5 %; Eosinophils # (A) 0.07 X 10*3/uL (0.04-0.35); Eosinophils % (A) 1.6 %; HCT 36.3 % (37.2-46.3); Lymphocytes # (A) 0.66 X 10*3/uL (0.90-5.00); Lymphocytes % (A) 15.5 %; MCH 26.4 pg (27.0-32.0); MCHC 30.3 g/dL (32.0-37.0); MCV 87.1 FL (80.0-97.0); Mean Platelet Volume 11.8 FL (9.5-12.2); Monocytes # (A) 0.56 X 10*3/uL (0.20-1.00); Monocytes % (A) 13.1 %; NRBC Per 100 WBC 0 X 10*3/uL (0.00-0.01); Neutrophils # (A) 2.93 X 10*3/uL (1.80-7.70); Neutrophils % (A) 68.8 %; Platelet Count 180 X 10*3/uL (140-440); RBC 4.17 X 10*6/uL (4.10-5.20); RDW 18.3 % (11.5-14.5); WBC 4.26 X 10*3/uL (4.50-10.00)
[2023-05-03 18:13] LABS: ALT 23 U/L (8-44); AST 28 U/L (13-35); Albumin 3.8 g/dL (3.8-4.9); Albumin/Globulin Ratio 1.65 Ratio (1.60-3.17); Alkaline Phosphatase 74 U/L (41-126); BUN/Creat Ratio 9.33 Ratio (12.00-20.00); Blood Urea Nitrogen 11.2 mg/dL (9.0-27.0); Calcium 8.4 mg/dL (8.7-10.3); Carbon Dioxide 23.1 mmol/L (21.6-31.8); Chloride 105 mmol/L (96-109); Globulin 2.3 g/dL (1.6-3.3); Glucose 90 mg/dL (70-110); Potassium 3.4 mmol/L (3.5-5.5); Sodium 141 mmol/L (135-145); Total Bilirubin 0.2 mg/dL (0.3-1.2); Total Protein 6.1 g/dL (6.2-8.2)
[2023-05-03] MEDS: METOPROLOL SUCCINATE (ER) 50 MG TAB.ER.24H PO SCH (19:59)
[2023-05-03] MEDS: ATORVASTATIN 40 MG TAB PO SCH (19:59)
--- NOTE | 2023-05-03 22:59 | PN ---
PROGRESS NOTE SUBJECTIVE: This is a 58-year-old white female admitted for possible cellulitis with pustules and possible abscess of the right arm. CAT scan showed no abscess, but there is a large wound on the right forearm. OBJECTIVE: VITAL SIGNS: Blood pressure is 123/72, O2 99, pulse 84, respiratory rate is 18 to 20, and temperature 98.6. CARDIOVASCULAR: S1, S2. LUNGS: Transmitted upper sounds. GI: Soft. HEMATOLOGY: Negative for Hom[place]. PSYCH: Fair mood and affect. NEUROLOGIC: Alert and oriented x3. Blood cultures are negative. Right arm cellulitis, remains on cefepime. Wait for Infectious Disease, vascular to get involved. See how long the antibiotics have to be given and possible debridement. Vascular surgery re-evaluations is pending. Prognosis guarded. Diflucan for fungal infection of the vagina. MMODL / IJN: [id number] /
[2023-05-04] MEDS: HYDROmorphone 1 MG/ML 1 ML SYRINGE IVP PRN ×6 (00:32→20:17)
[2023-05-04] MEDS: SODIUM CHLORIDE 0.9% 1,000 ML IV SCH ×3 (03:59→20:16)
[2023-05-04] MEDS: diphenhydrAMINE 50 MG/ML 1 ML VIAL IVP SCH (08:36)
[2023-05-04] MEDS: CEFEPIME 2 GM in SODIUM CHLORIDE 0.9% 100 ML IVPB SCH (08:37)
[2023-05-04] MEDS: SERTRALINE 100 MG TAB PO SCH (08:37)
[2023-05-04] MEDS: SODIUM BICARBONATE TAB 650 MG TAB PO SCH ×3 (08:37→22:18)
[2023-05-04] MEDS: POTASSIUM CHLORIDE ER 20 MEQ TAB.ER PO SCH (08:38)
[2023-05-04] MEDS: HYDROcodone/APAP 5-325MG 1 EACH TAB PO SCH ×3 (08:38→22:18)
[2023-05-04] MEDS: FAMOTIDINE 20 MG TAB PO SCH (08:38)
[2023-05-04] MEDS: busPIRone HCl 5 MG TAB PO SCH ×2 (08:39→20:17)
[2023-05-04] MEDS: APIXABAN 5 MG TAB PO SCH (08:39)
[2023-05-04] MEDS: FLUDROCORTISONE 0.1 MG TAB PO SCH (08:40)
[2023-05-04] MEDS: BUMETANIDE 1 MG TAB PO SCH (08:40)
[2023-05-04] MEDS: NYSTATIN 100,000UNIT/GM CREAM 30 GM TUBE TOPICAL SCH ×2 (08:46→20:22)
[2023-05-04] MEDS: ZONISAMIDE 100 MG CAP PO SCH ×2 (08:46→20:17)
[2023-05-04] MEDS: TRIAMCINOLONE 0.1% CREAM 80 GM TUBE TOPICAL SCH ×2 (08:47→20:23)
[2023-05-04] MEDS: ONDANSETRON 4 MG/2 ML VIAL IVP PRN (09:35)
[2023-05-04] MEDS: FLUCONAZOLE 100 MG TAB PO SCH (09:37)
--- NOTE | 2023-05-04 11:43 | P.PN ---
Subjective Progress Note Date: 05/04/23 Principal diagnosis: Reason for follow-up is right forearm cellulitis Patient is a 58-year-old female with a past medical history significant for antiphospholipid antibodies syndrome with multiple PEs seizure disorder cardiac valve replacement patient mention she recently did have a CT of abdominal pelvis done at [facility] for the patient has received c ontrast through peripheral IV that was placed to the right forearm, patient subsequently developing blistering ulceration pain and redness to the right forearm concerning for cellulitis On today's evaluation that is 05/04/2023, the patient continues to be afebrile the patient is breathing comfortably on room air denies any chest pain shortness of breath or cough still complaining of discomfort to the right forearm area most of the wound have dried out no drainage still complaining some vaginal itching and burning but no diarrhea. Patient did have white count of 4.26 creatinine 1.2 as of yesterday no leg drop today cultures has been negative Objective - Vital Signs Vital signs: Vital Signs Temp 98.8 F 05/04/23 07:24 Pulse 68 05/04/23 07:24 Resp 18 05/04/23 07:24 BP 111/68 05/04/23 07:24 Pulse Ox 96 05/04/23 07:24 FiO2 Intake & Output 05/03/23 05/04/23 05/04/23 18:59 06:59 18:59 Intake Total 400 Balance 400 Intake: Oral 400 Other: Voiding Method Toilet Toilet # Voids 4 1 - Exam GENERAL DESCRIPTION: Middle-aged female lying in bed in no distress RESPIRATORY SYSTEM: Unlabored breathing , decreased breath sounds at bases HEART: S1 S2 regular rate and rhythm , ABDOMEN: Soft , no tenderness EXTREMITIES: Left forearm did have mostly skin necrotic changes and minimal erythema but no drainage - Labs CBC & Chem 7: 05/03/23 09:40 05/03/23 09:40 Labs: Abnormal Lab Results - Last 24 Hours (Table) 05/03/23 05/03/23 Range/Units 09:40 09:40 WBC 4.26 L (4.50-10.00) X 10*3/uL Hgb 11.0 L (12.0-15.0) g/dL Hct 36.3 L (37.2-46.3) % MCH 26.4 L (27.0-32.0) pg MCHC 30.3 L (32.0-37.0) g/dL RDW 18.3 H (11.5-14.5) % Lymphocytes # 0.66 L (0.90-5.00) X 10*3/uL Potassium 3.4 L (3.5-5.5) mmol/L Anion Gap 12.90 H (4.00-12.00) mmol/L Est GFR (CKD-EPI) 52 L (>=60) BUN/Creatinine Ratio 9.33 L (12.00-20.00) Ratio Calcium 8.4 L (8.7-10.3) mg/dL Total Bilirubin 0.2 L (0.3-1.2) mg/dL Total Protein 6.1 L (6.2-8.2) g/dL Microbiology - Last 24 Hours (Table) 04/29/23 13:00 Anaerobic Culture - Final Arm - Right Assessment and Plan (1) Right forearm cellulitis Current Visit: Yes Status: Acute Code(s): L03.113 - CELLULITIS OF RIGHT UPPER LIMB SNOMED Code(s): 53576466324026355 (2) Open wound of right forearm Current Visit: Yes Status: Acute Code(s): S51.801A - UNSPECIFIED OPEN WOUND OF RIGHT FOREARM, INITIAL ENCOUNTER SNOMED Code(s): 63767924962353566 (3) Allergy to multiple antibiotics Current Visit: Yes Status: Acute Code(s): Z88.1 - ALLERGY STATUS TO OTHER ANTIBIOTIC AGENTS SNOMED Code(s): 041714218 Plan: 1patient with a right upper extremity cellulitis with area of blistering apparently started after the patient did have infiltration of the dry when she was getting CT of abdominal pelvis few weeks ago and question of possible chemical dermatitis a component of cellulitis not entirely excluded. 2local culture has been negative so far patient still have evidence of skin necrosis and some surrounding erythema , We will reconsult surgery for evaluation for possible debridement. 3patient complaining of side effects from the cefepime with the culture negative we will discontinue cefepime if no need for any IV right groin catheter should be discontinued. 4patient with the vaginal yeast infection to continue with the Diflucan Dictation was produced using [employer] dictation software. please excuse any grammatical, word or spelling errors. Time with Patient: Less than 30
--- NOTE | 2023-05-04 12:38 | P.PN ---
Subjective Progress Note Date: 05/04/23 Principal diagnosis: Right upper extremity cellulitis Patient is seen and examined today as a follow-up. Requested to reevaluate patient's right upper extremity for possible surgical debridement. She has been afebrile. Still has some surrounding erythema of her right upper extremity. She has been on IV antibiotics however states she's been having significant amounts of side effects. Plan is to change her to oral antibiotics. The CT of the right upper extremity that showed no evidence of abscess. Objective - Vital Signs Vital signs: Vital Signs Temp 98.8 F 05/04/23 07:24 Pulse 68 05/04/23 07:24 Resp 18 05/04/23 07:24 BP 111/68 05/04/23 07:24 Pulse Ox 96 05/04/23 07:24 FiO2 Intake & Output 05/03/23 05/04/23 05/04/23 18:59 06:59 18:59 Intake Total 400 Balance 400 Intake: Oral 400 Other: Voiding Method Toilet Toilet # Voids 4 1 - Exam Appears in no acute distress. Patient up in the bathroom. Right upper extremity with Kerlix. Heart appears regular. Lungs are clear. Multiple areas of previous scarring. Right upper extremity forearm with multiple areas of denuded skin and wound appearing into the fatty tissue with eschar. No fluctuance or purulence. - Labs CBC & Chem 7: 05/03/23 09:40 05/03/23 09:40 Labs: Abnormal Lab Results - Last 24 Hours (Table) 05/03/23 05/03/23 Range/Units 09:40 09:40 WBC 4.26 L (4.50-10.00) X 10*3/uL Hgb 11.0 L (12.0-15.0) g/dL Hct 36.3 L (37.2-46.3) % MCH 26.4 L (27.0-32.0) pg MCHC 30.3 L (32.0-37.0) g/dL RDW 18.3 H (11.5-14.5) % Lymphocytes # 0.66 L (0.90-5.00) X 10*3/uL Potassium 3.4 L (3.5-5.5) mmol/L Anion Gap 12.90 H (4.00-12.00) mmol/L Est GFR (CKD-EPI) 52 L (>=60) BUN/Creatinine Ratio 9.33 L (12.00-20.00) Ratio Calcium 8.4 L (8.7-10.3) mg/dL Total Bilirubin 0.2 L (0.3-1.2) mg/dL Total Protein 6.1 L (6.2-8.2) g/dL Microbiology - Last 24 Hours (Table) 04/29/23 13:00 Anaerobic Culture - Final Arm - Right Assessment and Plan Assessment: Right upper extremity wound, cellulitis Plan: 1. Nothing by mouth after midnight 2. Hold Eliquis 3. Patient is scheduled for excisional debridement of right upper extremity tomorrow 4. Antibiotic recommendations per infectious disease 5. Patient will need outpatient wound care, will recommend a consult to [facility] wound clinic. Thank you for this consultation. The impression and plan of care has been dictated as directed. I performed a history and examination of this patient, discussed the same with the dictator. I agree with the dictator's note ,documented as a scribe. Any additional findings or plans will be noted.
[2023-05-04] MEDS ORDERED: diphenhydrAMINE 50 MG CAP PO PRN (14:44)
--- NOTE | 2023-05-04 18:41 | P.OBCN ---
History of Present Illness Consult date: 05/04/23 Reason for consult: other History of present illness: The patient is a 58-year-old 2 para 2002 who has been in the hospital for IV antibiotic therapy secondary to some ongoing abscess formation and skin infections as documented in the chart on previous internal medicine notes. He continues to have reactions to multiple different medications leading to more skin irritation. She ultimately has developed by her accounts perineal irrit ation with itching but is currently on oral Diflucan daily and has Uziel been prescribed nystatin with triamcinolone cream as well as nystatin powder for topical use of a secondary note, the patient reports that she may have developed condyloma both on the vulva and perhaps in the vagina as well. She additionally is being treated with IV Benadryl for generalized itching. She has had a hysterectomy in the past, total abdominal hysterectomy done specifically for endometriosis and chronic pain. Obstetrical history: 2 para 2002 with 2 term sections, one for twins. Left of contraception is hysterectomy. Gynecologic history: Unremarkable except as noted in history of present illness. The potential for condyloma can be followed up as an outpatient. 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 Review of Systems Confined to history of present illness. 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 for low K+. lupus History of Any Multi-Drug Resistant Organisms: C-DIFF Year Discovered:: 03/02/23 MDRO Source:: Stool Past Surgical History: Back Surgery, Breast Surgery, Cardiac Valve Replacement, Section, Cholecystectomy, Heart Catheterization, Hysterectomy, Pacemaker Additional Past Surgical History / Comment(s): pacemaker d/t bradycardia/hypotension with last one place in 2013 in [place], [place], 3 lower back surgeries, bilateral breast reduction. 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 She is independent. Smoking Status: Never smoker Past Alcohol Use History: None Reported Past Drug Use History: None Reported Additional Drug Use History / Comment(s): Marijuana use prn per pt. - Past Family History Mother Additional Family Medical History / Comment(s): Mother at the age of 49 yrs after surgery for silicon breast implants with a leak that caused ARDS and DIC per pt Father Family Medical History: Cancer, Hyperlipidemia, Hypertension Additional Family Medical History / Comment(s): Father is a colon cancer survivor. Medications and Allergies Home Medications Medication Instructions Recorded Confirmed Type Atorvastatin [Lipitor] 40 mg PO HS 09/24/21 04/28/23 History Cholestyramine (with Sugar) 4 gm PO DAILY PRN 09/24/21 04/28/23 History [Cholestyramine Packet] Gabapentin 300 mg PO QID 09/24/21 04/28/23 History Sertraline [Zoloft] 200 mg PO DAILY 09/24/21 04/28/23 History Dicyclomine [Bentyl] 20 mg PO TID PRN #30 tablet 04/30/22 04/28/23 Rx Apixaban [Eliquis] 5 mg PO BID 05/29/22 04/28/23 History busPIRone HCl [Buspar] 5 mg PO BID 06/11/22 04/28/23 History Bumetanide [BUMEX] 2 mg PO DAILY 06/24/22 04/28/23 History Zonisamide [Zonegran] 100 mg PO Q12HR 30 Days #60 cap 07/26/22 04/28/23 Rx Fludrocortisone [Florinef] 0.1 mg PO DAILY 09/20/22 04/28/23 History Ondansetron [Zofran] 4 mg PO Q8H PRN 11/29/22 04/28/23 History Nystatin 100,000 Unit/gm Powd 1 applic TOPICAL BID PRN 01/06/23 04/28/23 History [Mycostatin Powder] Ipratropium Nebulized [Atrovent 0.5 mg INHALATION RT-QID PRN 01/12/23 04/28/23 History Nebulized 0.2 MG/ML] Potassium Chloride ER [K-Dur 20] 20 meq PO DAILY 01/12/23 04/28/23 History Famotidine 20 mg PO BID 02/16/23 04/28/23 History HYDROcodone/APAP 10-325MG [[place] 0.5 tab PO TID 02/16/23 04/28/23 History 10-325] Metoprolol Succinate (ER) [Toprol 50 mg PO HS 02/16/23 04/28/23 History XL] Cyclobenzaprine [Flexeril] 5 mg PO TID PRN #15 tablet 03/02/23 04/28/23 Rx diphenhydrAMINE [Benadryl] 50 mg PO Q6HR PRN cap 03/11/23 04/28/23 Rx Sulfamethox-Tmp 800-160Mg [Bactrim 1 tab PO Q12HR #28 tab 04/14/23 04/28/23 Rx DS 800-160 mg] rOPINIRole HCL [Requip] 2 mg PO HS 04/28/23 04/28/23 History Allergies Allergy/AdvReac Type Severity Reaction Status Date / Time Penicillins Allergy Severe Anaphylaxis Verified 04/28/23 23:20 vancomycin Allergy Severe Swelling Verified 04/28/23 23:20 in lips albuterol [From Ventolin HFA] Allergy Rapid Verified 04/28/23 23:20 Heart Rate cefepime Allergy Swelling Verified 04/28/23 23:20 clindamycin Allergy Anaphylaxis Verified 04/28/23 23:20 dexamethasone [From Decadron] Allergy Unknown Verified 04/28/23 23:20 Influenza Virus Vaccines Allergy Unknown Verified 04/28/23 23:20 latex Allergy Unknown Verified 04/28/23 23:20 morphine Allergy Unknown Verified 04/28/23 23:20 prochlorperazine Allergy Unknown Verified 04/28/23 23:20 [From Compazine] galcanezumab-gnlm AdvReac Confusion, Verified 04/28/23 23:20 [From Emgality Pen] increased blood pressure metoclopramide [From Reglan] AdvReac "felt like Verified 04/28/23 23:20 I needed to jump out of my skin" Exam Vital Signs Temp Pulse Resp BP Pulse Ox 05/04/23 12:12 98.3 F 78 18 118/76 100 05/04/23 08:50 78 18 05/04/23 07:24 98.8 F 68 18 111/68 96 05/04/23 02:00 98.3 F 76 16 120/77 96 05/03/23 20:00 99 F 75 16 110/61 97 Intake and Output 05/04/23 05/04/23 05/04/23 06:59 14:59 22:59 Intake Total 400 Balance 400 Intake: Oral 400 Other: Voiding Method Toilet # Voids 4 1 Weight 69.681 kg Exam is deferred entirely as the patient is completely covered from a both topical and oral perspective regarding symptoms of perineal and/or vulvovaginal yeast. Examination would add nothing to the recommendations. Results Result Diagrams: 05/03/23 09:40 05/03/23 09:40 Microbiology - Last 24 Hours (Table) 04/28/23 22:25 Blood Culture - Final Blood 04/28/23 22:40 Blood Culture - Final Blood 04/29/23 13:00 Anaerobic Culture - Final Arm - Right Assessment and Plan (1) Yeast dermatitis Current Visit: Yes Status: Acute Code(s): B37.2 - CANDIDIASIS OF SKIN AND NAIL SNOMED Code(s): 76667636 Plan: The diagnosis is currently presumptive but the patient is entirely covered with every possible angle including both oral Diflucan and topical these medications including topical steroids to assist with management of itching. I can offer nothing further to improve her quality of care than what she is on at this time. She certainly is welcome to follow-up as an outpatient for evaluation of possible vulvovaginal condyloma.
[2023-05-04] MEDS: diphenhydrAMINE 50 MG/ML 1 ML VIAL IVP PRN (18:45)
[2023-05-04] MEDS: ATORVASTATIN 40 MG TAB PO SCH (20:17)
[2023-05-04] MEDS: METOPROLOL SUCCINATE (ER) 50 MG TAB.ER.24H PO SCH (20:20)
--- NOTE | 2023-05-04 22:43 | PN ---
PROGRESS NOTE SUBJECTIVE: This is a 58-year-old white female for surgery for midline PICC line and possible debridement of the tomorrow. Continues on her pain medicines and Benadryl, severe pain. She is on broad-spectrum antibiotics, difficulty with possible side effects. OBJECTIVE: VITAL SIGNS: Blood pressure is 111/68, O2 96, temp 98.8, pulse 68, respiratory rate 16. CARDIOVASCULAR: S1, S2. LUNGS: Clear. GI: Soft. HEMATOLOGY: Negative for Homans. PSYCH: Fair mood and affect, very anxious, nervous. White count of 4.26, hemoglobin is 11.0. GFR is kidney function. She is n.p.o. for right arm debridement, pain medicine and Benadryl for possible allergy to antibiotics. Continue with incisional debridement tomorrow. We gave her medicine for seizures and pseudoseizures a couple of days ago. She has had no seizures. MMODL / IJN: [id number] /
[2023-05-05] MEDS: HYDROmorphone 1 MG/ML 1 ML SYRINGE IVP PRN ×3 (00:11→13:14)
[2023-05-05] MEDS: SODIUM CHLORIDE 0.9% 1,000 ML IV SCH ×2 (03:35→11:07)
[2023-05-05 03:58] VITALS: RESP 16
[2023-05-05] MEDS ORDERED: ONDANSETRON 4 MG/2 ML VIAL IVP ONE (07:59)
[2023-05-05] MEDS ORDERED: IV FLUID CONTINUATION 1,000 ML IV ONE (08:00)
[2023-05-05] MEDS ORDERED: MIDAZOLAM 2 MG/2 ML VIAL IVP ONE (08:32)
[2023-05-05] MEDS ORDERED: fentaNYL (PF) 50 MCG/ML 2 ML AMP IVP ONE (08:54)
[2023-05-05] MEDS: HYDROcodone/APAP 5-325MG 1 EACH TAB PO SCH ×2 (09:19→10:03)
[2023-05-05] MEDS: NYSTATIN 100,000UNIT/GM CREAM 30 GM TUBE TOPICAL SCH (09:19)
[2023-05-05] MEDS: TRIAMCINOLONE 0.1% CREAM 80 GM TUBE TOPICAL SCH (09:20)
--- NOTE | 2023-05-05 09:22 | P.PN ---
Progress Note - Text Progress Note Date: 05/05/23 Patient seen and examined in the preoperative area. Patient had had reported seizure and was given Versed. Per nursing timing upon my arrival approximately 4 minutes after, patient was alert and oriented and able to discuss complex histories including the flu shot that caused her to have many of these issues from many years ago. She is appearing relatively normal however with this, case will be canceled. Again discussed with patient and family that there is no evidence abscess. Only areas of eschar in the wound, overall the wound and cellulitic changes appear better with conservative measures and IV antibiotics. This can all be treated with local wound care and local debridements. We will consult wound care. This was discussed with infectious disease who is in agreement with the plan. This was also discussed with neurology who is seen the patient previously indicates the patient has previously refused EEGs and his medical consultation. This is all discussed with the patient's primary, Dr. Hassan who stated the patient has pseudoseizures but was in agreement with the plan. We will sign off at this time.
[2023-05-05] MEDS: FLUCONAZOLE 100 MG TAB PO SCH (09:37)
[2023-05-05] MEDS: SODIUM BICARBONATE TAB 650 MG TAB PO SCH (09:37)
[2023-05-05] MEDS: ZONISAMIDE 100 MG CAP PO SCH (09:37)
[2023-05-05] MEDS: FLUDROCORTISONE 0.1 MG TAB PO SCH (09:37)
[2023-05-05] MEDS: SERTRALINE 100 MG TAB PO SCH (09:37)
[2023-05-05] MEDS: BUMETANIDE 1 MG TAB PO SCH (09:38)
[2023-05-05] MEDS: POTASSIUM CHLORIDE ER 20 MEQ TAB.ER PO SCH (09:38)
[2023-05-05] MEDS: FAMOTIDINE 20 MG TAB PO SCH (09:38)
[2023-05-05] MEDS: busPIRone HCl 5 MG TAB PO SCH (09:38)
--- NOTE | 2023-05-05 11:03 | P.CON ---
Consult Note - . 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 About a month ago she had a contrasted computed tomography scan and developed subsequent cellulitis in the right forearm. Since then it has improved dramatically with the area of redness decreasing substantially. This has left her with several scabs in the midportion of the redness that are dry and contracted. She is afebrile at this time. She also has chronic renal insufficiency and antiphospholipid antibody syndrome. Physical examination: The patient has normal pulses in the right wrist. There is pretty minimal swelling in the forearm. She does have about a 10 cm area in the medial aspect of the right forearm with redness and mild edema. In the midportion there are several blackened eschars which are contracted and dry. Recommendation: At this time, given the progressive resolution of the area of redness and swelling especially recently, I would recommend simple protection of the area. I recommended that she elevate the arm when possible. I would not place any ointment or topical treatment that would soften and make the eschar more mushy. Given her current progress I would suspect that this process will resolve itself. These eschar will likely loosen as the deeper tissues contract around them. The edges can be trimmed as needed. If they fall off or become macerated leaving an open area, this can be treated with topicals such as absorptive silver. We will be happy to follow her in wound care if these do not continue to dry up and resolve spontaneously.
[2023-05-05] MEDS: diphenhydrAMINE 50 MG/ML 1 ML VIAL IVP PRN (11:35)
[2023-05-05 11:44] LABS: African American GFR (CKD) 72 (>60 ml/min/1.73 sqM); Anion Gap 13 mmol/L; Blood Urea Nitrogen 15 mg/dL (7-17); Calcium 9.1 mg/dL (8.4-10.2); Carbon Dioxide 23 mmol/L (22-30); Chloride 106 mmol/L (98-107); Glucose 96 mg/dL (74-99); Non-African American GFR(CKD) 62 (>60 ml/min/1.73 sqM); Potassium 3.6 mmol/L (3.5-5.1); Sodium 142 mmol/L (137-145)
[2023-05-05 11:50] VITALS: BMI 28.0
[2023-05-05 12:14] VITALS: BP 183/88; PULSE 71; TEMP 98.5
--- NOTE | 2023-05-05 17:29 | P.PN ---
Subjective Progress Note Date: 05/05/23 Principal diagnosis: Reason for follow-up is right forearm cellulitis Patient is a 58-year-old female with a past medical history significant for antiphospholipid antibodies syndrome with multiple PEs seizure disorder cardiac valve replacement patient mention she recently did have a CT of abdominal pelvis done at [facility] for the patient has received c ontrast through peripheral IV that was placed to the right forearm, patient subsequently developing blistering ulceration pain and redness to the right forearm concerning for cellulitisPatient was taken to the OR for debridement of the right forearm wound bed and did have seizure, procedure has been postponed, subsequent evaluated by wound care recommending no specific treatment. On today's evaluation that is 05/05/2023 the patient remains to be afebrile the patient is breathing comfortably on room air patient denies having any chest pain shortness of breath or cough no nausea no vomiting no abdominal pain or any worsening pain to the right forearm wound area. Patient did have a white count of 4.26 as of 05/03/2023 creatinine is 1.0 Objective - Vital Signs Vital signs: Vital Signs Temp 98.5 F 05/05/23 11:47 Pulse 71 05/05/23 11:47 Resp 16 05/05/23 11:47 BP 183/88 05/05/23 11:47 Pulse Ox 96 05/05/23 11:47 FiO2 Intake & Output 05/04/23 05/05/23 05/05/23 18:59 06:59 18:59 Intake Total 0 Balance 0 Weight 69.681 kg 69.681 kg Intake: IV 0 Other: Voiding Method Toilet Toilet # Voids 1 3 - Exam GENERAL DESCRIPTION: Middle-aged female lying in bed in no distress RESPIRATORY SYSTEM: Unlabored breathing , decreased breath sounds at bases HEART: S1 S2 regular rate and rhythm , ABDOMEN: Soft , no tenderness EXTREMITIES: Left forearm did have mostly skin necrotic changes and minimal erythema but no drainage - Labs CBC & Chem 7: 05/03/23 09:40 05/05/23 10:53 Labs: Microbiology - Last 24 Hours (Table) 04/28/23 22:25 Blood Culture - Final Blood 04/28/23 22:40 Blood Culture - Final Blood 04/29/23 13:00 Anaerobic Culture - Final Arm - Right Assessment and Plan (1) Right forearm cellulitis Status: Acute Code(s): L03.113 - CELLULITIS OF RIGHT UPPER LIMB SNOMED Code(s): 65798536866084927 (2) Open wound of right forearm Status: Acute Code(s): S51.801A - UNSPECIFIED OPEN WOUND OF RIGHT FOREARM, INITIAL ENCOUNTER SNOMED Code(s): 08539962860768312 (3) Allergy to multiple antibiotics Status: Acute Code(s): Z88.1 - ALLERGY STATUS TO OTHER ANTIBIOTIC AGENTS SNOMED Code(s): 663474569 Plan: 1patient with a right upper extremity cellulitis with area of blistering apparently started after the patient did have infiltration of the dry when she was getting CT of abdominal pelvis few weeks ago and question of possible chemical dermatitis a component of cellulitis not entirely excluded. 2local culture has been negative so far patient still have evidence of skin necrosis and some surrounding erythema , We will reconsult surgery for evaluation for possible debridement. 3patient complaining of side effects from the cefepime with the culture negative , cefepime Was discontinued, if no need for any IV right groin catheter should be discontinued. 4patient to continue with oral Diflucan for the without any's infection there is no need for any systemic antibiotic for the right hand currently being managed by the wound care Dictation was produced using [email or web address] dictation software. please excuse any grammatical, word or spelling errors. Time with Patient: Less than 30
== END 2023-05-05 14:06 | disposition home or self-care (01) | DRG 868 ==
LOC: EC 14:43 → 5NMEDONC 04-29 00:33
PROVIDERS: ADMIT Family Medicine; ATTEND Family Medicine
DX: T80.29XA Infection following other infusion, transfusion and therapeutic injection, initial encounter (principal); D68.61 Antiphospholipid syndrome; L03.113 Cellulitis of right upper limb; L88 Pyoderma gangrenosum; M32.9 Systemic lupus erythematosus, unspecified; G25.81 Restless legs syndrome; I12.9 Hypertensive chronic kidney disease with stage 1 through stage 4 chronic kidney disease, or unspecified chronic kidney disease; N18.30 Chronic kidney disease, stage 3 unspecified; G89.29 Other chronic pain; M54.2 Cervicalgia; B37.31 Acute candidiasis of vulva and vagina; T50.8X5A Adverse effect of diagnostic agents, initial encounter; M54.9 Dorsalgia, unspecified; Z95.3 Presence of xenogenic heart valve; Z88.1 Allergy status to other antibiotic agents; Z79.01 Long term (current) use of anticoagulants; Z79.52 Long term (current) use of systemic steroids; Z86.711 Personal history of pulmonary embolism; Z86.19 Personal history of other infectious and parasitic diseases; Z95.0 Presence of cardiac pacemaker; Z86.69 Personal history of other diseases of the nervous system and sense organs; Z28.310 Unvaccinated for COVID-19; Z79.899 Other long term (current) drug therapy; Z88.7 Allergy status to serum and vaccine; Z91.040 Latex allergy status; Z88.5 Allergy status to narcotic agent; Z88.6 Allergy status to analgesic agent; Z88.8 Allergy status to other drugs, medicaments and biological substances
CPT/HCPCS: 36410; 36415; 76937; 80048; 80053; 81003; 83605; 85025; 85610; 85730; 87040; 87070; 87075; 87205; 87636; 93005; 94760; 96365; 96372; 96375; 99285

== ENCOUNTER 2023-05-16 18:48 | Observation (INO) | payer MEDICARE ==
[2023-05-16] MEDS ORDERED: LORazepam 2 MG/ML INJ IV STA (19:11)
--- NOTE | 2023-05-16 19:22 | ED ---
General Adult HPI - General Chief complaint: Chest Pain Stated complaint: Chest pain, seizures Time Seen by Provider: 05/16/23 18:57 Source: patient, RN notes reviewed, old records reviewed Mode of arrival: wheelchair Limitations: altered mental status - History of Present Illness Initial comments: 58-year-old female presenting with seizure activity. History is limited. Patient has generalized tremor and is unable to answer questions at the time my evaluation. She is maintaining her airway. Apparently she had complained of both seizure activity throughout the day with history of pseudoseizure as well as chest pain. - Related Data Home Medications Medication Instructions Recorded Confirmed Atorvastatin [Lipitor] 40 mg PO HS 09/24/21 04/28/23 Cholestyramine (with Sugar) 4 gm PO DAILY PRN 09/24/21 04/28/23 [Cholestyramine Packet] Gabapentin 300 mg PO QID 09/24/21 04/28/23 Sertraline [Zoloft] 200 mg PO DAILY 09/24/21 04/28/23 Apixaban [Eliquis] 5 mg PO BID 05/29/22 04/28/23 busPIRone HCl [Buspar] 5 mg PO BID 06/11/22 04/28/23 Bumetanide [BUMEX] 2 mg PO DAILY 06/24/22 04/28/23 Fludrocortisone [Florinef] 0.1 mg PO DAILY 09/20/22 04/28/23 Ondansetron [Zofran] 4 mg PO Q8H PRN 11/29/22 04/28/23 Nystatin 100,000 Unit/gm Powd 1 applic TOPICAL BID PRN 01/06/23 04/28/23 [Mycostatin Powder] Ipratropium Nebulized [Atrovent 0.5 mg INHALATION RT-QID PRN 01/12/23 04/28/23 Nebulized 0.2 MG/ML] Potassium Chloride ER [K-Dur 20] 20 meq PO DAILY 01/12/23 04/28/23 Famotidine 20 mg PO BID 02/16/23 04/28/23 HYDROcodone/APAP 10-325MG [[place] 0.5 tab PO TID 02/16/23 04/28/23 10-325] Metoprolol Succinate (ER) [Toprol 50 mg PO HS 02/16/23 04/28/23 XL] rOPINIRole HCL [Requip] 2 mg PO HS 04/28/23 04/28/23 Previous Rx's Medication Instructions Recorded Dicyclomine [Bentyl] 20 mg PO TID PRN #30 tablet 04/30/22 Zonisamide [Zonegran] 100 mg PO Q12HR 30 Days #60 cap 07/26/22 Cyclobenzaprine [Flexeril] 5 mg PO TID PRN #15 tablet 03/02/23 diphenhydrAMINE [Benadryl] 50 mg PO Q6HR PRN cap 03/11/23 Sulfamethox-Tmp 800-160Mg [Bactrim 1 tab PO Q12HR #28 tab 04/14/23 DS 800-160 mg] Allergies Allergy/AdvReac Type Severity Reaction Status Date / Time Penicillins Allergy Severe Anaphylaxis Verified 05/16/23 18:54 vancomycin Allergy Severe Swelling Verified 05/16/23 18:54 in lips albuterol [From Ventolin HFA] Allergy Rapid Verified 05/16/23 18:54 Heart Rate cefepime Allergy Swelling Verified 05/16/23 18:54 clindamycin Allergy Anaphylaxis Verified 05/16/23 18:54 dexamethasone [From Decadron] Allergy Unknown Verified 05/16/23 18:54 Influenza Virus Vaccines Allergy Unknown Verified 05/16/23 18:54 latex Allergy Unknown Verified 05/16/23 18:54 morphine Allergy Unknown Verified 05/16/23 18:54 prochlorperazine Allergy Unknown Verified 05/16/23 18:54 [From Compazine] galcanezumab-gnlm AdvReac Confusion, Verified 05/16/23 18:54 [From Emgality Pen] increased blood pressure metoclopramide [From Reglan] AdvReac "felt like Verified 05/16/23 18:54 I needed to jump out of my skin" Review of Systems ROS Statement: Those systems with pertinent positive or pertinent negative responses have been documented in the HPI. ROS Other: All systems not noted in ROS Statement are negative. 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 for low K+. lupus History of Any Multi-Drug Resistant Organisms: C-DIFF Date of last positivie culture/infection: 03/02/23 MDRO Source:: Stool Past Surgical History: Back Surgery, Breast Surgery, Cardiac Valve Replacement, Section, Cholecystectomy, Heart Catheterization, Hysterectomy, Pacemaker Additional Past Surgical History / Comment(s): pacemaker d/t bradycardia/hypotension with last one place in 2013 in [place], [place], 3 lower back surgeries, bilateral breast reduction. 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 Past Anesthesia/Blood Transfusion Reactions: No Reported Reaction Type of Cardiac Device: Permanent Pacemaker, Unknown Device Placement Date:: 2012 Past Psychological History: Anxiety Smoking Status: Never smoker Past Alcohol Use History: None Reported Past Drug Use History: None Reported - Past Family History Mother Additional Family Medical History / Comment(s): Mother at the age of 49 yrs after surgery for silicon breast implants with a leak that caused ARDS and DIC per pt Father Family Medical History: Cancer, Hyperlipidemia, Hypertension Additional Family Medical History / Comment(s): Father is a colon cancer survivor. General Exam Limitations: no limitations General appearance: lethargic Head exam: Present: atraumatic, normocephalic Eye exam: Present: normal appearance, PERRL Neck exam: Present: normal inspection Respiratory exam: Present: normal lung sounds bilaterally. Absent: respiratory distress, wheezes Cardiovascular Exam: Present: regular rate, normal rhythm GI/Abdominal exam: Present: soft. Absent: distended, tenderness, guarding Extremities exam: Present: normal capillary refill Neurological exam: Present: other (Patient's minimally responsive, normal corneal reflex, normal pupillary reflex, tremor activity without abnormal respirations or tachycardia.). Absent: alert Skin exam: Present: warm, dry Course Vital Signs 05/16/23 05/16/23 05/16/23 18:50 20:06 21:01 Temperature 98.2 F Pulse Rate 67 70 70 Respiratory 16 19 19 Rate Blood Pressure 127/76 140/88 143/75 O2 Sat by Pulse 98 92 L 98 Oximetry Medical Decision Making - Medical Decision Making Was pt. sent in by a medical professional or institution ([facility] Castorena, DIRECTOR NICU, urgent care, hospital, or halfway...) When possible be specific @ -No Did you speak to anyone other than the patient for history (EMS, parent, family, police, friend...)? What history was obtained from this source @ -No Did you review nursing and triage notes (agree or disagree)? Why? @ -I reviewed and agree with nursing and triage notes Were old charts reviewed (outside hosp., previous admission, EMS record, old EKG, old radiological studies, urgent care reports/EKG's, halfway records)? Report findings @ -No old charts were reviewed Differential Diagnosis (chest pain, altered mental status, abdominal pain women, abdominal pain men, vaginal bleeding, weakness, fever, dyspnea, syncope, headache, dizziness, GI bleed, back pain, seizure, CVA, palpatations, mental health, musculoskeletal)? @ -not applicable EKG interpreted by me (3pts min.). @ -[Tremor artifact severely limiting assessment, suspect sinus rhythm with PVC rate of 99, QRS duration 159, QTC 255 unable to assess for ST segment changes in the lateral precordial leads. X-rays interpreted by me (1pt min.). @ Chest x-ray showing possible pulmonary, no focal pneumonia, no pneumothorax CT interpreted by me (1pt min.). @ -CT brain pending U/S interpreted by me (1pt. min.). @ -None done What testing was considered but not performed or refused? (CT, X-rays, U/S, lab s)? Why? @ -None What meds were considered but not given or refused? Why? @ -None Did you discuss the management of the patient with other professionals (professionals i.e. ELIZABETH Castorena, DIRECTOR NICU, lab, RT, psych nurse, social media editor, printing technician, teacher, tax revenue officer, piano case and bench assembler)? Give summary @ -No Was smoking cessation discussed for >3mins.? @ -No Was critical care preformed (if so, how long)? @ -No Were there social determinants of health that impacted care today? How? (Homelessness, low income, unemployed, alcoholism, drug addiction, transportation, low edu. Level, literacy, decrease access to med. care, fci, rehab)? @ -No Was there de-escalation of care discussed even if they declined (Discuss DNR or withdrawal of care, Hospice)? DNR status @ -No What co-morbidities impacted this encounter? (DM, HTN, Smoking, COPD, CAD, Cancer, CVA, ARF, Chemo, Hep., AIDS, mental health diagnosis, sleep apnea, morbid obesity)? @ -[History of pseudoseizure Was patient admitted / discharged? Hospital course, mention meds given and route, prescriptions, significant lab abnormalities, going to OR and other pertinent info. @ -58-year-old female presenting with recurrent seizure like activity throughout the day today. Patient is nonresponsive upon arrival but does improve after Ativan administration. She is in sinus rhythm. She has a normal CBC, normal CMP, negative troponin. Undiagnosed new problem with uncertain prognosis? @ -No Drug Therapy requiring intensive monitoring for toxicity (Heparin, Nitro, Insulin, Cardizem)? @ -No Were any procedures done? @ -No Diagnosis/symptom? @ -[Seizure activity, chest pain Acute, or Chronic, or Acute on Chronic? @ Acute Uncomplicated (without systemic symptoms) or Complicated (systemic symptoms)? @ -default Side effects of treatment? @ -No Exacerbation, Progression, or Severe Exacerbation? @ -No Poses a threat to life or bodily function? How? (Chest pain, [place], [place], pneumonia, PE, COPD, DKA, ARF, appy, cholecystitis, CVA, Diverticulitis, Homicidal, Suicidal, threat to staff... and all critical care pts) @ -[yes, seizure, chest pain - Lab Data Result diagrams: 05/16/23 19:06 05/16/23 19:06 Lab Results 05/16/23 05/16/23 05/16/23 Range/Units 19:06 19:06 19:06 WBC 6.5 (3.8-10.6) k/uL RBC 4.73 (3.80-5.40) m/uL Hgb 13.0 (11.4-16.0) gm/dL Hct 39.8 (34.0-46.0) % MCV 84.1 (80.0-100.0) fL MCH 27.5 (25.0-35.0) pg MCHC 32.7 (31.0-37.0) g/dL RDW 16.5 H (11.5-15.5) % Plt Count 356 D (150-450) k/uL MPV 7.7 Neutrophils % 66 % Lymphocytes % 23 % Monocytes % 6 % Eosinophils % 3 % Basophils % 0 % Neutrophils # 4.3 (1.3-7.7) k/uL Lymphocytes # 1.5 (1.0-4.8) k/uL Monocytes # 0.4 (0-1.0) k/uL Eosinophils # 0.2 (0-0.7) k/uL Basophils # 0.0 (0-0.2) k/uL Anisocytosis Slight PT 11.1 (10.0-12.5) sec INR 1.0 (<1.2) APTT 28.3 (22.0-30.0) sec Sodium 137 (137-145) mmol/L Potassium 4.1 (3.5-5.1) mmol/L Chloride 102 (98-107) mmol/L Carbon Dioxide 21 L (22-30) mmol/L Anion Gap 14 mmol/L BUN 30 H (7-17) mg/dL Creatinine 1.25 H (0.52-1.04) mg/dL Est GFR (CKD-EPI)AfAm 55 (>60 ml/min/1.73 sqM) Est GFR (CKD-EPI)NonAf 47 (>60 ml/min/1.73 sqM) Glucose 99 (74-99) mg/dL Calcium 10.0 (8.4-10.2) mg/dL Magnesium 2.5 H (1.6-2.3) mg/dL Total Bilirubin 0.5 (0.2-1.3) mg/dL AST 32 (14-36) U/L ALT 24 (4-34) U/L Alkaline Phosphatase 84 (38-126) U/L Troponin I (0.000-0.034) ng/mL Total Protein 7.7 (6.3-8.2) g/dL Albumin 4.7 (3.5-5.0) g/dL 05/16/23 Range/Units 19:06 WBC (3.8-10.6) k/uL RBC (3.80-5.40) m/uL Hgb (11.4-16.0) gm/dL Hct (34.0-46.0) % MCV (80.0-100.0) fL MCH (25.0-35.0) pg MCHC (31.0-37.0) g/dL RDW (11.5-15.5) % Plt Count (150-450) k/uL MPV Neutrophils % % Lymphocytes % % Monocytes % % Eosinophils % % Basophils % % Neutrophils # (1.3-7.7) k/uL Lymphocytes # (1.0-4.8) k/uL Monocytes # (0-1.0) k/uL Eosinophils # (0-0.7) k/uL Basophils # (0-0.2) k/uL Anisocytosis PT (10.0-12.5) sec INR (<1.2) APTT (22.0-30.0) sec Sodium (137-145) mmol/L Potassium (3.5-5.1) mmol/L Chloride (98-107) mmol/L Carbon Dioxide (22-30) mmol/L Anion Gap mmol/L BUN (7-17) mg/dL Creatinine (0.52-1.04) mg/dL Est GFR (CKD-EPI)AfAm (>60 ml/min/1.73 sqM) Est GFR (CKD-EPI)NonAf (>60 ml/min/1.73 sqM) Glucose (74-99) mg/dL Calcium (8.4-10.2) mg/dL Magnesium (1.6-2.3) mg/dL Total Bilirubin (0.2-1.3) mg/dL AST (14-36) U/L ALT (4-34) U/L Alkaline Phosphatase (38-126) U/L Troponin I <0.012 (0.000-0.034) ng/mL Total Protein (6.3-8.2) g/dL Albumin (3.5-5.0) g/dL Disposition Clinical Impression: Chest pain, Seizure-like activity Disposition: ADMITTED IP TO THIS HOSP Condition: Stable Is patient prescribed a controlled substance at d/c from ED?: No Referrals: Franklin Hassan MD [Primary Care Provider] - 1-2 days Time of Disposition: 21:21
[2023-05-16 19:54] LABS: Anisocytosis Slight; Basophils % (A) 0 %; Eosinophils # (A) 0.2 k/uL (0-0.7); Eosinophils % (A) 3 %; HCT 39.8 % (34.0-46.0); Lymphocytes # (A) 1.5 k/uL (1.0-4.8); Lymphocytes % (A) 23 %; MCH 27.5 pg (25.0-35.0); MCHC 32.7 g/dL (31.0-37.0); MCV 84.1 fL (80.0-100.0); Mean Platelet Volume 7.7; Monocytes # (A) 0.4 k/uL (0-1.0); Monocytes % (A) 6 %; Neutrophils # (A) 4.3 k/uL (1.3-7.7); Neutrophils % (A) 66 %; RBC 4.73 m/uL (3.80-5.40); RDW 16.5 % (11.5-15.5); WBC 6.5 k/uL (3.8-10.6)
[2023-05-16 19:59] LABS: Platelet Count 356 k/uL (150-450)
[2023-05-16 20:07] LABS: ALT 24 U/L (4-34); AST 32 U/L (14-36); African American GFR (CKD) 55 (>60 ml/min/1.73 sqM); Albumin 4.7 g/dL (3.5-5.0); Alkaline Phosphatase 84 U/L (38-126); Anion Gap 14 mmol/L; Blood Urea Nitrogen 30 mg/dL (7-17); Carbon Dioxide 21 mmol/L (22-30); Chloride 102 mmol/L (98-107); Glucose 99 mg/dL (74-99); Magnesium 2.5 mg/dL (1.6-2.3); Non-African American GFR(CKD) 47 (>60 ml/min/1.73 sqM); Potassium 4.1 mmol/L (3.5-5.1); Sodium 137 mmol/L (137-145); Total Bilirubin 0.5 mg/dL (0.2-1.3); Total Protein 7.7 g/dL (6.3-8.2)
[2023-05-16] MEDS ORDERED: diphenhydrAMINE 50 MG/ML 1 ML VIAL IVP STA (20:08)
--- NOTE | 2023-05-16 20:10 | XR ---
EXAMINATION TYPE: XR chest 2V DATE OF EXAM: 05/16/2023 7:59 PM CLINICAL INDICATION:Female, 58 years old with history of Chest Pain; [facility] COMPARISON: Chest radiographs from 03/01/2023 TECHNIQUE: XR chest 2V Frontal and lateral views of the chest. FINDINGS: Lungs/Pleura: There is no evidence of pleural effusion, focal consolidation, or pneumothorax. Pulmonary vascularity: Unremarkable. Heart/mediastinum: Cardiomediastinal silhouette is enlarged and stable. Post valve repair changes. S lia-lead cardiac conduction device overlying the right hemithorax with lead projecting over the rig ht atrium. Loop recorder is present. Musculoskeletal: No acute osseous pathology. Other findings: None IMPRESSION: Cardiomegaly and mild pulmonary vascular congestion. Correlate with BNP for congestive heart failure.
[2023-05-16 20:16] LABS: Partial Thromboplastin Time 28.3 sec (22.0-30.0); Prothrombin Time 11.1 sec (10.0-12.5)
[2023-05-16] MEDS ORDERED: HYDROmorphone 0.5 MG/0.5 ML SYRINGE IVP STA (20:52)
[2023-05-16] MEDS ORDERED: NALOXONE 0.4 MG/ML 1 ML VIAL IV PRN (21:16)
[2023-05-16] MEDS ORDERED: LORazepam 2 MG/ML INJ IV PRN (21:17)
--- NOTE | 2023-05-16 21:43 | CT ---
EXAMINATION TYPE: CT brain wo con CT DLP: 1211.4 mGycm, Automated exposure control for dose reduction was used. DATE OF EXAM: 05/16/2023 9:28 PM COMPARISON: 03/07/2023. CLINICAL INDICATION:Female, 58 years old with history of seizure, AMS TECHNIQUE: Brain: Axial CT images of the brain were obtained with coronal and sagittal reformats created and rev iewed. Contrast used: None. Oral contrast used: None. FINDINGS: Brain: Extra-axial spaces: No abnormal extra-axial fluid collections. Ventricular system: Within normal limits Cerebral parenchyma: No acute intraparenchymal hemorrhage or mass effect. The mar-white junction is well differentiated. Cerebellum: Unremarkable. Mass effect: No evidence of midline shift. Intracranial vasculature: unremarkable Soft tissues: Normal. Calvarium/osseous structures: No depressed skull fracture. Paranasal sinuses and mastoid air cells: Mild scattered paranasal sinus disease. Visualized orbits: Orbital contents are intact. IMPRESSION: No acute intracranial process.
[2023-05-17] MEDS: HYDROmorphone 0.5 MG/0.5 ML SYRINGE IVP PRN ×2 (00:20→07:06)
[2023-05-17] MEDS ORDERED: diphenhydrAMINE 25 MG CAP PO ONE (01:23)
[2023-05-17] MEDS: HYDROmorphone 1 MG/ML 1 ML SYRINGE IVP PRN ×4 (08:18→18:01)
[2023-05-17] MEDS: diphenhydrAMINE 50 MG/ML 1 ML VIAL IVP PRN ×3 (08:18→20:12)
[2023-05-17] MEDS ORDERED: DICYCLOMINE 20 MG TAB PO PRN (12:52)
[2023-05-17] MEDS ORDERED: ONDANSETRON 4 MG TAB PO PRN (12:52)
[2023-05-17] MEDS ORDERED: CHOLESTYRAMINE (WITH SUGAR) 4 GM PACKET PO PRN (12:52)
[2023-05-17] MEDS: GABAPENTIN 300 MG CAP PO SCH ×3 (13:22→23:32)
--- NOTE | 2023-05-17 13:32 | HP ---
HISTORY AND PHYSICAL HISTORY OF PRESENT ILLNESS: Dania Meza came to emergency room with status epilepticus last night. Seen her in the emergency room. because she was unable to answer questions. She was seizing for a long period of time per ER doctor, not sure if it is seizures or pseudoseizures. Wait for Neurology to evaluate her. She has a lot of stress at her house. HOME MEDICINES: Reviewed. ALLERGIES: Penicillin, Vancomycin. PAST MEDICAL HISTORY: Pulmonary embolism disorder renal disease seizure disorder, chronic kidney disease stage 3 right renal artery and embolism, migraines, tinnitus, vertigo, lupus. PAST SURGICAL HISTORY: Back surgery, breast surgery, cardiac valve replacement, , and cholecystectomy. PHYSICAL EXAMINATION: VITAL SIGNS: Temp 98.2, pulse 60s to 70s, respiratory rate is 18, blood pressure 120s to 140s over 70s to 80s, O2 90 to 98. HEENT: Normocephalic, atraumatic. Pupils equal, round, and reactive. EXTREMITIES: No cyanosis, clubbing, edema. NEUROLOGIC: Cranial nerves intact. SKIN: Warm, dry. Prognosis guarded. Continue current treatment. Await for Neurology evaluation. Resume home medicines. Will possibly do another EEG to rule out seizures versus pseudoseizures. Chest x-ray shows possible pulmonary, no focal pneumonia or pneumothorax. CAT scan head assessment was okay. Wait for neurologic evaluation rehydrate her. Chest pain, possibly get Cardiology to see her. Prognosis guarded. Please see further orders. MMODL / IJN: [id number] /
[2023-05-17] MEDS: ONDANSETRON 4 MG/2 ML VIAL IVP PRN (14:05)
[2023-05-17] MEDS: ACETAMINOPHEN TAB 325 MG TAB PO PRN (15:04)
[2023-05-17] MEDS ORDERED: HYDROcodone/APAP 10-325MG 1 EACH TAB PO SCH (16:00)
[2023-05-17] MEDS: IPRATROPIUM 0.5 MG/2.5 ML NEBU INHALATION PRN (19:38)
[2023-05-17] MEDS: ZONISAMIDE 100 MG CAP PO SCH (20:12)
[2023-05-17] MEDS: MICONAZOLE 2% VAGINAL CREAM 45 GM TUBE/KIT VAGINAL SCH (20:12)
[2023-05-17] MEDS: APIXABAN 5 MG TAB PO SCH (20:12)
[2023-05-17] MEDS: ATORVASTATIN 40 MG TAB PO SCH (20:13)
[2023-05-17] MEDS: METOPROLOL SUCCINATE (ER) 50 MG TAB.ER.24H PO SCH (20:13)
[2023-05-17] MEDS: busPIRone HCl 5 MG TAB PO SCH (20:13)
[2023-05-17] MEDS: FAMOTIDINE 20 MG TAB PO SCH (20:13)
[2023-05-17] MEDS: HYDROcodone/APAP 10-325MG 1 EACH TAB PO SCH (23:32)
[2023-05-18] MEDS: HYDROmorphone 1 MG/ML 1 ML SYRINGE IVP PRN ×7 (00:36→23:15)
[2023-05-18] MEDS: ACETAMINOPHEN TAB 325 MG TAB PO PRN (04:06)
[2023-05-18] MEDS: HYDROcodone/APAP 10-325MG 1 EACH TAB PO SCH ×2 (08:56→15:36)
[2023-05-18] MEDS: GABAPENTIN 300 MG CAP PO SCH ×4 (08:56→23:54)
[2023-05-18] MEDS: ZONISAMIDE 100 MG CAP PO SCH ×2 (08:56→23:18)
[2023-05-18] MEDS: BUMETANIDE 1 MG TAB PO SCH (08:56)
[2023-05-18] MEDS: POTASSIUM CHLORIDE ER 20 MEQ TAB.ER PO SCH (08:57)
[2023-05-18] MEDS: busPIRone HCl 5 MG TAB PO SCH ×2 (08:57→23:18)
[2023-05-18] MEDS: SERTRALINE 100 MG TAB PO SCH (08:57)
[2023-05-18] MEDS: APIXABAN 5 MG TAB PO SCH ×2 (08:57→23:18)
[2023-05-18] MEDS: FAMOTIDINE 20 MG TAB PO SCH ×2 (08:57→23:18)
[2023-05-18] MEDS: FLUDROCORTISONE 0.1 MG TAB PO SCH (08:57)
[2023-05-18] MEDS: ONDANSETRON 4 MG/2 ML VIAL IVP PRN ×2 (08:58→16:52)
[2023-05-18] MEDS: diphenhydrAMINE 50 MG/ML 1 ML VIAL IVP PRN ×3 (09:59→23:53)
[2023-05-18] MEDS: CYCLOBENZAPRINE 5 MG TAB PO PRN ×2 (11:00→18:36)
--- NOTE | 2023-05-18 11:26 | P.CONS ---
History of Present Illness - Reason for Consult Consult date: 05/18/23 wound care - History of Present Illness 58-year-old patient with history of pyoderma granulosum. She has multiple ulcerations to the right forearm which she says is started approximately 6 weeks ago. Patient has a cluster of multiple ulcerations with minimal granulation Slough and nonviable tissue present. BP Route wound does show irritation and erythema. Patient normally utilizes honey she is also utilize Santyl previously in the past with positive results. Review Of Systems: Constitutional: No fever, no chills, no night sweats. No weight change. No weakness, fatigue or lethargy. No daytime sleepiness. Integumentary:reports wounds, no lesions. No rash or pruritus. No unusual bruising. No change in hair or nails. Physical exam: General Appearance: Alert, cooperative, no distress, appears stated age. Skin: See HPI all other Skin color, texture, tugor normal, no rashes or lesions. Neurologic: Alert oriented x3 Assessment: 1. Non-pressure ulceration other site of body with fat layer exposure 2. Pyoderma gangrenosum Plan: 1. Apply Santyl, saline moist gauze, and border foam. Triamcinolone to periwound. Change daily. We will be happy to see the patient in the wound care center if she is agreeable. Thank you for the consultation any questions contact the wound care center DNP note has been reviewed and discussed with Dr. Atkinson and the impression and plan of care has been directed as dictated. Past Medical History Past Medical History: Blood Disorder, Pulmonary Embolus (PE), Renal Disease, Seizure Disorder Additional Past Medical History / Comment(s): Antiphospholipid antibody syndrome which causes clots and bleeding, multiple PEs, R renal artery embolism/now atrophic, CKD stage III, hypotension, hypokalemia especially w/stress, lupus, pyoderm grangrenosum, decreased pituitary function pt states d/t clot, mi graines, chonic cervical/back pain, herniated discs, RLS, vertigo, recent adm. for low K+. lupus History of Any Multi-Drug Resistant Organisms: C-DIFF Year Discovered:: 03/02/23 MDRO Source:: Stool Past Surgical History: Back Surgery, Breast Surgery, Cardiac Valve Replacement, Section, Cholecystectomy, Heart Catheterization, Hysterectomy, Pacemaker Additional Past Surgical History / Comment(s): pacemaker d/t bradycardia/hypotension with last one place in 2013 in [place], [place], 3 lower back surgeries, bilateral breast reduction. 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 She is independent. Smoking Status: Never smoker Past Alcohol Use History: None Reported Past Drug Use History: None Reported Additional Drug Use History / Comment(s): Marijuana use prn per pt. - Past Family History Mother Additional Family Medical History / Comment(s): Mother at the age of 49 yrs after surgery for silicon breast implants with a leak that caused ARDS and DIC per pt Father Family Medical History: Cancer, Hyperlipidemia, Hypertension Additional Family Medical History / Comment(s): Father is a colon cancer survivor. Medications and Allergies Home Medications Medication Instructions Recorded Confirmed Type Atorvastatin [Lipitor] 40 mg PO HS 09/24/21 05/16/23 History Cholestyramine (with Sugar) 4 gm PO DAILY PRN 09/24/21 05/16/23 History [Cholestyramine Packet] Gabapentin 300 mg PO QID 09/24/21 05/16/23 History Sertraline [Zoloft] 200 mg PO DAILY 09/24/21 05/16/23 History Dicyclomine [Bentyl] 20 mg PO TID PRN #30 tablet 04/30/22 05/16/23 Rx Apixaban [Eliquis] 5 mg PO BID 05/29/22 05/16/23 History busPIRone HCl [Buspar] 5 mg PO BID 06/11/22 05/16/23 History Bumetanide [BUMEX] 2 mg PO DAILY 06/24/22 05/16/23 History Zonisamide [Zonegran] 100 mg PO Q12HR 30 Days #60 cap 07/26/22 05/16/23 Rx Fludrocortisone [Florinef] 0.1 mg PO DAILY 09/20/22 05/16/23 History Ondansetron [Zofran] 4 mg PO Q8H PRN 11/29/22 05/16/23 History Nystatin 100,000 Unit/gm Powd 1 applic TOPICAL BID PRN 09/07/23 01/15/24 History [Mycostatin Powder] Ipratropium Nebulized [Atrovent 0.5 mg INHALATION RT-QID PRN 01/12/23 05/16/23 History Nebulized 0.2 MG/ML] Potassium Chloride ER [K-Dur 20] 20 meq PO DAILY 01/12/23 05/16/23 History Famotidine 20 mg PO BID 02/16/23 05/16/23 History HYDROcodone/APAP 10-325MG [[place] 0.5 tab PO TID 02/16/23 05/16/23 History 10-325] Metoprolol Succinate (ER) [Toprol 50 mg PO HS 02/16/23 05/16/23 History XL] Cyclobenzaprine [Flexeril] 5 mg PO TID PRN #15 tablet 03/02/23 05/16/23 Rx diphenhydrAMINE [Benadryl] 50 mg PO Q6HR PRN cap 03/11/23 05/16/23 Rx Sulfamethox-Tmp 800-160Mg [Bactrim 1 tab PO Q12HR #28 tab 04/14/23 05/16/23 Rx DS 800-160 mg] rOPINIRole HCL [Requip] 2 mg PO HS 04/28/23 05/16/23 History Allergies Allergy/AdvReac Type Severity Reaction Status Date / Time Penicillins Allergy Severe Anaphylaxis Verified 05/16/23 21:56 vancomycin Allergy Severe Swelling Verified 05/16/23 21:56 in lips albuterol [From Ventolin HFA] Allergy Rapid Verified 05/16/23 21:56 Heart Rate cefepime Allergy Swelling Verified 05/16/23 21:56 clindamycin Allergy Anaphylaxis Verified 05/16/23 21:56 dexamethasone [From Decadron] Allergy Unknown Verified 05/16/23 21:56 Influenza Virus Vaccines Allergy Unknown Verified 05/16/23 21:56 latex Allergy Unknown Verified 05/16/23 21:56 morphine Allergy Unknown Verified 05/16/23 21:56 prochlorperazine Allergy Unknown Verified 05/16/23 21:56 [From Compazine] galcanezumab-gnlm AdvReac Confusion, Verified 05/16/23 21:56 [From Emgality Pen] increased blood pressure metoclopramide [From Reglan] AdvReac "felt like Verified 05/16/23 21:56 I needed to jump out of my skin" Physical Exam Vitals: Vital Signs Temp Pulse Pulse Resp BP BP Pulse Ox 05/18/23 07:00 97.7 F 67 16 103/65 100 05/18/23 00:59 97.6 F 77 16 111/77 98 05/17/23 19:56 98.1 F 76 16 128/74 92 L 05/17/23 19:50 80 05/17/23 19:39 82 05/17/23 15:00 98.0 F 70 16 123/76 98 Intake and Output 05/17/23 05/18/23 05/18/23 22:59 06:59 14:59 Intake Total 480 240 Balance 480 240 Intake: Oral 480 240 Other: Voiding Method Toilet Toilet # Voids 2 3 Results CBC & Chem 7: 05/16/23 19:06 05/16/23 19:06 Assessment and Plan (1) Non-pressure chronic ulcer of skin of other sites with fat layer exposed Current Visit: Yes Status: Acute Code(s): L98.492 - NON-PRS CHRONIC ULCER OF SKIN OF SITES W FAT LAYER EXPOSED SNOMED Code(s): 73474934 (2) Pyoderma gangrenosum Current Visit: Yes Status: Acute Code(s): L88 - PYODERMA GANGRENOSUM SNOMED Code(s): 72105302
[2023-05-18] MEDS: IPRATROPIUM 0.5 MG/2.5 ML NEBU INHALATION PRN ×2 (11:41→19:44)
[2023-05-18] MEDS: COLLAGENASE 250 UNIT/GM OINTMENT 30 GM TUBE TOPICAL SCH (13:22)
--- NOTE | 2023-05-18 14:02 | P.GSCN ---
History of Present Illness Consult date: 05/18/23 Reason for Consult: arm wound Requesting physician: Franklin Hassan History of present illness: 58-year-old female with multiple comorbidities came in for chest pain and seizure activity. She has right upper extremity wounds possible pyoderma versus reaction from IV and MRI dye which she was seen during her last admission at the end of April. She has been using Medih[employer] and does report some discomfort at site. No fevers or chills. She's been afebrile. She was sleeping initially when entered room. She was easily arousable, alert and oriented 3. Without any complaints. Review of Systems A 14 point review systems was completed all pertinent positives and negatives as stated in the HPI. 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 for low K+. lupus History of Any Multi-Drug Resistant Organisms: C-DIFF Year Discovered:: 03/02/23 MDRO Source:: Stool Past Surgical History: Back Surgery, Breast Surgery, Cardiac Valve Replacement, Section, Cholecystectomy, Heart Catheterization, Hysterectomy, Pacemaker Additional Past Surgical History / Comment(s): pacemaker d/t bradycardia/hypotension with last one place in 2013 in [place], [place], 3 lower back surgeries, bilateral breast reduction. 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 She is independent. Smoking Status: Never smoker Past Alcohol Use History: None Reported Past Drug Use History: None Reported Additional Drug Use History / Comment(s): Marijuana use prn per pt. - Past Family History Mother Additional Family Medical History / Comment(s): Mother at the age of 49 yrs after surgery for silicon breast implants with a leak that caused ARDS and DIC per pt Father Family Medical History: Cancer, Hyperlipidemia, Hypertension Additional Family Medical History / Comment(s): Father is a colon cancer survivor. Medications and Allergies Home Medications Medication Instructions Recorded Confirmed Type Atorvastatin [Lipitor] 40 mg PO HS 09/24/21 05/16/23 History Cholestyramine (with Sugar) 4 gm PO DAILY PRN 09/24/21 05/16/23 History [Cholestyramine Packet] Gabapentin 300 mg PO QID 09/24/21 05/16/23 History Sertraline [Zoloft] 200 mg PO DAILY 09/24/21 05/16/23 History Dicyclomine [Bentyl] 20 mg PO TID PRN #30 tablet 04/30/22 05/16/23 Rx Apixaban [Eliquis] 5 mg PO BID 05/29/22 05/16/23 History busPIRone HCl [Buspar] 5 mg PO BID 06/11/22 05/16/23 History Bumetanide [BUMEX] 2 mg PO DAILY 06/24/22 05/16/23 History Zonisamide [Zonegran] 100 mg PO Q12HR 30 Days #60 cap 07/26/22 05/16/23 Rx Fludrocortisone [Florinef] 0.1 mg PO DAILY 09/20/22 05/16/23 History Ondansetron [Zofran] 4 mg PO Q8H PRN 11/29/22 05/16/23 History Nystatin 100,000 Unit/gm Powd 1 applic TOPICAL BID PRN 01/06/23 05/16/23 History [Mycostatin Powder] Ipratropium Nebulized [Atrovent 0.5 mg INHALATION RT-QID PRN 01/12/23 05/16/23 History Nebulized 0.2 MG/ML] Potassium Chloride ER [K-Dur 20] 20 meq PO DAILY 01/12/23 05/16/23 History Famotidine 20 mg PO BID 02/16/23 05/16/23 History HYDROcodone/APAP 10-325MG [[place] 0.5 tab PO TID 02/16/23 05/16/23 History 10-325] Metoprolol Succinate (ER) [Toprol 50 mg PO HS 02/16/23 05/16/23 History XL] Cyclobenzaprine [Flexeril] 5 mg PO TID PRN #15 tablet 03/02/23 05/16/23 Rx diphenhydrAMINE [Benadryl] 50 mg PO Q6HR PRN cap 03/11/23 05/16/23 Rx Sulfamethox-Tmp 800-160Mg [Bactrim 1 tab PO Q12HR #28 tab 04/14/23 05/16/23 Rx DS 800-160 mg] rOPINIRole HCL [Requip] 2 mg PO HS 04/28/23 05/16/23 History Allergies Allergy/AdvReac Type Severity Reaction Status Date / Time Penicillins Allergy Severe Anaphylaxis Verified 05/16/23 21:56 vancomycin Allergy Severe Swelling Verified 05/16/23 21:56 in lips albuterol [From Ventolin HFA] Allergy Rapid Verified 05/16/23 21:56 Heart Rate cefepime Allergy Swelling Verified 05/16/23 21:56 clindamycin Allergy Anaphylaxis Verified 05/16/23 21:56 dexamethasone [From Decadron] Allergy Unknown Verified 05/16/23 21:56 Influenza Virus Vaccines Allergy Unknown Verified 05/16/23 21:56 latex Allergy Unknown Verified 05/16/23 21:56 morphine Allergy Unknown Verified 05/16/23 21:56 prochlorperazine Allergy Unknown Verified 05/16/23 21:56 [From Compazine] galcanezumab-gnlm AdvReac Confusion, Verified 05/16/23 21:56 [From Emgality Pen] increased blood pressure metoclopramide [From Reglan] AdvReac "felt like Verified 05/16/23 21:56 I needed to jump out of my skin" Surgical - Exam Vital Signs Temp Pulse Resp BP Pulse Ox 98.2 F 67 16 127/76 98 05/16/23 18:50 05/16/23 18:50 05/16/23 18:50 05/16/23 18:50 05/16/23 18:50 General appearance: The patient is alert, oriented, appears in no acute distress. HET: Head is normocephalic and atraumatic. Pupils are equal and reactive. Neck: Supple. Heart: Regular. Lungs: Equal expansion, normal respiratory effort. Abdomen: Soft, nontender, nondistended. Extremities: Right upper extremity with 3 ulcers with some surrounding erythema on forearm with some eschar. No drainage. Radial pulses. Neurological: No focal deficits. Strength and sensation are grossly intact. Results - Labs 05/16/23 19:06 05/16/23 19:06 Assessment and Plan Assessment: 1. Right forearm ulcerations 2. History of pyoderma gangrenosum Plan: There is no indication for any vascular surgical intervention. We recommend local wound care per recommendations from the wound clinic. Will consult wound care and patient will likely need outpatient follow-up as well with the wound center. Thank you for this consultation, we will sign off at this time. The impression and plan of care has been dictated as directed. Dr. Maki I performed a history and examination of this patient, discussed the same with the dictator. I agree with the dictator's note ,documented as a scribe. Any additional findings or plans will be noted.
[2023-05-18] MEDS ORDERED: LORazepam 2 MG/ML INJ IM PRN (17:50)
[2023-05-18] MEDS ORDERED: LORazepam 2 MG/ML INJ IV PRN (17:51)
[2023-05-18] MEDS ORDERED: methylPREDNISolone SOD SUCCI 40 MG/ML 1 ML VIAL IV SCH (18:00)
--- NOTE | 2023-05-18 19:43 | CT ---
EXAMINATION TYPE: CT lumbar spine wo con CT DLP: 1131.20 mGycm, Automated exposure control for dose reduction was used. DATE OF EXAM: 05/18/2023 6:46 PM COMPARISON: 03/01/2023. CLINICAL INDICATION:Female, 58 years old with history of trauma;, rt hip and low back pain. possibly injury from recent seizure. TECHNIQUE: Multiple axial images were obtained from the midportion of T11 through the sacroiliac orly nts. Soft tissue and bone windows in coronal and sagittal planes were obtained and reviewed. 3-D ref ormats of the bones were created on a separate workstation and submitted for review. Contrast used: mL of , (None, if empty). Oral contrast used: (None, if empty). FINDINGS: Alignment: There are 5 lumbar type vertebral bodies with grade 1 anterolisthesis of L4 and L5. Bone: No evidence of fracture is identified. Multilevel degeneration changes with osteophyte formati on, disc space narrowing, facet joint arthropathy. Findings worse at L3-L5. Fixation hardware L5-S1. Hardware appears intact. Thickness phenomenon at L3-L4 and L4-L5. Discs: T12-L1: No spinal canal or neural foraminal stenosis is identified. L1-L2: No spinal canal or neural foraminal stenosis is identified. L2-L3: Facet joint arthropathy and disc bulging result with mild to moderate spinal canal stenosis an d mild bilateral neural foraminal stenosis. L3-L4: Facet joint arthropathy and disc bulging result with moderate spinal canal stenosis and modera te bilateral neural foraminal stenosis. L4-L5: Grade 1 anterolisthesis with to severe spinal canal stenosis with moderate bilateral neural fo raminal stenosis. L5-S1: Facet joint arthropathy and disc bulging result with mild spinal canal stenosis and mild bilat eral neural foraminal stenosis. Other: Atrophic right kidney. The gallbladder surgically absent. Small splenule present. Nonobstructi ng left renal calculi measuring up to 5 mm. Fixation hardware in the lower spine IMPRESSION: 1. No evidence for spinal fracture. 2. Grade 1 anterolisthesis of L4 on L5 with severe spinal canal stenosis. 3. Severe degeneration changes of the facet joints at L3-L5.
--- NOTE | 2023-05-18 19:47 | CT ---
EXAMINATION TYPE: CT hip RT wo con CT DLP: 1131.20 mGycm, Automated exposure control for dose reduction was used. DATE OF EXAM: 05/18/2023 6:48 PM COMPARISON: . 03/01/2023. CLINICAL INDICATION:Female, 58 years old with history of trauma; PHH, rt hip and low back pain. possi tori injury from recent seizure. TECHNIQUE: Axial images were obtained of the CT hip RT wo con, Additional coronal and sagittal reform atted images and soft tissue and bone window were obtained for review. 3-D reconstruction was created on a separate workstation. Contrast used: mL of , (None if empty) Oral contrast used: (None if empty) FINDINGS: Mild osteophyte formation of the right acetabulum There is no evidence of fracture, subluxa tion, or dislocation. No significant soft tissue swelling or joint effusion is identified. No focal muscular atrophy or edema is identified. No radiopaque foreign body identified. Surgical clips in the right groin region. IMPRESSION: 1. No evidence of fracture. 2. Mild right hip osteoarthrosis.
[2023-05-18] MEDS: ATORVASTATIN 40 MG TAB PO SCH (23:18)
[2023-05-18] MEDS: METOPROLOL SUCCINATE (ER) 50 MG TAB.ER.24H PO SCH (23:18)
[2023-05-18] MEDS: methylPREDNISolone SOD SUCCI 125 MG/2 ML VIAL IV SCH (23:53)
[2023-05-19] MEDS: MICONAZOLE 2% VAGINAL CREAM 45 GM TUBE/KIT VAGINAL SCH (00:25)
[2023-05-19] MEDS: HYDROcodone/APAP 10-325MG 1 EACH TAB PO SCH ×2 (02:15→10:47)
[2023-05-19] MEDS: HYDROmorphone 1 MG/ML 1 ML SYRINGE IVP PRN ×4 (05:01→14:33)
[2023-05-19] MEDS: diphenhydrAMINE 50 MG/ML 1 ML VIAL IVP PRN (06:05)
[2023-05-19] MEDS ORDERED: diphenhydrAMINE 50 MG/ML 1 ML VIAL IVP PRN (06:29)
[2023-05-19] MEDS ORDERED: diphenhydrAMINE 50 MG/ML 1 ML VIAL IVP STA (08:23)
[2023-05-19] MEDS: SERTRALINE 100 MG TAB PO SCH (08:25)
[2023-05-19] MEDS: busPIRone HCl 5 MG TAB PO SCH (08:25)
[2023-05-19] MEDS: POTASSIUM CHLORIDE ER 20 MEQ TAB.ER PO SCH (08:26)
[2023-05-19] MEDS: methylPREDNISolone SOD SUCCI 125 MG/2 ML VIAL IV SCH (08:26)
[2023-05-19] MEDS: BUMETANIDE 1 MG TAB PO SCH (08:26)
[2023-05-19] MEDS: FLUDROCORTISONE 0.1 MG TAB PO SCH (08:26)
[2023-05-19] MEDS: APIXABAN 5 MG TAB PO SCH (08:26)
[2023-05-19] MEDS: FAMOTIDINE 20 MG TAB PO SCH (08:26)
[2023-05-19] MEDS: ZONISAMIDE 100 MG CAP PO SCH (08:27)
[2023-05-19] MEDS: GABAPENTIN 300 MG CAP PO SCH ×2 (08:35→13:11)
--- NOTE | 2023-05-19 08:49 | P.CONS ---
History of Present Illness - Reason for Consult Consult date: 05/18/23 Right forearm wound Requesting physician: Franklin Hassan - Chief Complaint Worsening pain to the right forearm wound x few days - History of Present Illness Patient is a 58-year-old female with a past medical history significant for antiphospholipid antibodies syndrome seizure disorder PE patient recently developed blisters and laceration to the right forearm after apparently the IV that was used for CT with contrast got infiltrated patient was admitted to the hospital and did have some local culture which were negative she was treated with IV antibiotic therapy was evaluated by wound care and recommending no treatment to keep it dry also eval by vascular surgery patient was subsequently discharged home and advised to follow-up with the wound care center patient now presenting back to the hospital concerning for a seizure activity patient mention that she has seizures throughout the day as well as chest pain which she is attributed to either worsening infection or low potassium on presentation to the hospital patient was afebrile and no fever has been recorded subsequently patient was not tachycardic hypotensive or hypoxic white count was 6.5 with no left shift creatinine was 1.25 potassium is 4.1 liver isms are normal patient has been admitted to hospital infectious was consulted for the right upper extremity wound local treatment as well as need for antibiotic therapy Review of Systems Positive point and negatives has been mentioned in the HPI, complete review of systems was performed and all other systems are negative Past Medical History Past Medical History: Blood Disorder, Pulmonary Embolus (PE), Renal Disease, Seizure Disorder Additional Past Medical History / Comment(s): Antiphospholipid antibody syndrome which causes clots and bleeding, multiple PEs, R renal artery embolism/now atrophic, CKD stage III, hypotension, hypokalemia especially w/stress, lupus, pyoderm grangrenosum, decreased pituitary function pt states d/t clot, mi graines, chonic cervical/back pain, herniated discs, RLS, vertigo, recent adm. for low K+. lupus History of Any Multi-Drug Resistant Organisms: C-DIFF Year Discovered:: 03/02/23 MDRO Source:: Stool Past Surgical History: Back Surgery, Breast Surgery, Cardiac Valve Replacement, Section, Cholecystectomy, Heart Catheterization, Hysterectomy, Pacemaker Additional Past Surgical History / Comment(s): pacemaker d/t bradycardia/hypotension with last one place in 2013 in [place], [place], 3 lower back surgeries, bilateral breast reduction. 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 She is independent. Smoking Status: Never smoker Past Alcohol Use History: None Reported Past Drug Use History: None Reported Additional Drug Use History / Comment(s): Marijuana use prn per pt. - Past Family History Mother Additional Family Medical History / Comment(s): Mother at the age of 49 yrs after surgery for silicon breast implants with a leak that caused ARDS and DIC per pt Father Family Medical History: Cancer, Hyperlipidemia, Hypertension Additional Family Medical History / Comment(s): Father is a colon cancer survivor. Medications and Allergies Home Medications Medication Instructions Recorded Confirmed Type Atorvastatin [Lipitor] 40 mg PO HS 09/24/21 05/19/23 History Cholestyramine (with Sugar) 4 gm PO DAILY PRN 09/24/21 05/19/23 History [Cholestyramine Packet] Gabapentin 300 mg PO QID 09/24/21 05/19/23 History Sertraline [Zoloft] 200 mg PO DAILY 09/24/21 05/19/23 History Dicyclomine [Bentyl] 20 mg PO TID PRN #30 tablet 04/30/22 05/19/23 Rx Apixaban [Eliquis] 5 mg PO BID 05/29/22 05/19/23 History busPIRone HCl [Buspar] 5 mg PO BID 06/11/22 05/19/23 History Bumetanide [BUMEX] 2 mg PO DAILY 06/24/22 05/19/23 History Zonisamide [Zonegran] 100 mg PO Q12HR 30 Days #60 cap 07/26/22 05/19/23 Rx Fludrocortisone [Florinef] 0.1 mg PO DAILY 09/20/22 05/19/23 History Ondansetron [Zofran] 4 mg PO Q8H PRN 11/29/22 05/19/23 History Nystatin 100,000 Unit/gm Powd 1 applic TOPICAL BID PRN 01/06/23 05/19/23 History [Mycostatin Powder] Ipratropium Nebulized [Atrovent 0.5 mg INHALATION RT-QID PRN 01/12/23 05/19/23 History Nebulized 0.2 MG/ML] Potassium Chloride ER [K-Dur 20] 20 meq PO DAILY 01/12/23 05/19/23 History Famotidine 20 mg PO BID 02/16/23 05/19/23 History HYDROcodone/APAP 10-325MG [[place] 0.5 tab PO TID 02/16/23 05/19/23 History 10-325] Metoprolol Succinate (ER) [Toprol 50 mg PO HS 02/16/23 05/19/23 History XL] Cyclobenzaprine [Flexeril] 5 mg PO TID PRN #15 tablet 03/02/23 05/19/23 Rx diphenhydrAMINE [Benadryl] 50 mg PO Q6HR PRN cap 03/11/23 05/19/23 Rx Sulfamethox-Tmp 800-160Mg [Bactrim 1 tab PO Q12HR #28 tab 04/14/23 05/19/23 Rx DS 800-160 mg] rOPINIRole HCL [Requip] 2 mg PO HS 04/28/23 05/19/23 History Collagenase [Santyl Ointment] 1 applic TOPICAL DAILY 30 Days #30 05/18/23 05/19/23 Rx each Miconazole 2% Vaginal Cream 1 applic VAGINAL HS 5 Days #5 each 05/18/23 05/19/23 Rx [Monistat 7] Allergies Allergy/AdvReac Type Severity Reaction Status Date / Time Penicillins Allergy Severe Anaphylaxis Verified 05/19/23 18:20 vancomycin Allergy Severe Swelling Verified 05/19/23 18:20 in lips albuterol [From Ventolin HFA] Allergy Rapid Verified 05/19/23 18:20 Heart Rate cefepime Allergy Swelling Verified 05/19/23 18:20 clindamycin Allergy Anaphylaxis Verified 05/19/23 18:20 dexamethasone [From Decadron] Allergy Unknown Verified 05/19/23 18:20 Influenza Virus Vaccines Allergy Unknown Verified 05/19/23 18:20 latex Allergy Unknown Verified 05/19/23 18:20 morphine Allergy Unknown Verified 05/19/23 18:20 prochlorperazine Allergy Unknown Verified 05/19/23 18:20 [From Compazine] galcanezumab-gnlm AdvReac Confusion, Verified 05/19/23 18:20 [From Emgality Pen] increased blood pressure metoclopramide [From Reglan] AdvReac "felt like Verified 05/19/23 18:20 I needed to jump out of my skin" Physical Exam Vitals: Vital Signs Temp Pulse Pulse Resp BP BP Pulse Ox 05/18/23 07:00 97.7 F 67 16 103/65 100 05/18/23 00:59 97.6 F 77 16 111/77 98 05/17/23 19:56 98.1 F 76 16 128/74 92 L 05/17/23 19:50 80 05/17/23 19:39 82 05/17/23 15:00 98.0 F 70 16 123/76 98 Intake and Output 05/17/23 05/18/23 05/18/23 22:59 06:59 14:59 Intake Total 480 240 Balance 480 240 Intake: Oral 480 240 Other: Voiding Method Toilet Toilet # Voids 2 3 GENERAL DESCRIPTION: Middle-aged female lying in bed, no distress. No tachypnea or accessory muscle of respiration use. HEENT: Shows Pallor , no scleral icterus. Oral mucous membrane is dry. NECK: Trachea central, no thyromegaly. LUNGS: Unlabored breathing. Clear to auscultation anteriorly. No wheeze or crackle. HEART: S1, S2, regular rate and rhythm. No loud murmur ABDOMEN: Soft, no tenderness , guarding or rigidity, no organomegaly EXTREMITIES: Right forearm did have multiple wounds with slough tissue at the base no significant surrounding swelling redness or drainage SKIN: No rash, no masses palpable. NEUROLOGICAL: The patient is awake, alert, oriented x3, mood and affect normal. Results CBC & Chem 7: 05/16/23 19:06 05/16/23 19:06 Assessment and Plan (1) Allergy to multiple antibiotics Status: Acute Code(s): Z88.1 - ALLERGY STATUS TO OTHER ANTIBIOTIC AGENTS SNOMED Code(s): 095185286 (2) Non-pressure chronic ulcer of skin of other sites with fat layer exposed Status: Acute Code(s): L98.492 - NON-PRS CHRONIC ULCER OF SKIN OF SITES W FAT LAYER EXPOSED SNOMED Code(s): 30591952 (3) Open wound of right forearm Status: Acute Code(s): S51.801A - UNSPECIFIED OPEN WOUND OF RIGHT FOREARM, INITIAL ENCOUNTER SNOMED Code(s): 44396119939726511 Plan: 1patient did have multiple wounds to the right forearm currently wound base with slough tissue there is no surrounding redness or any foul-smelling drainage patient not running any fever and white count is normal clinically not behaving as wound infection and will benefit from local wound care 2-patient with multiple antibiotic ALLERGIES that would limit the number of antibiotic safe to use 3-local wound care with Santyl followed by moist dressing change daily discussed with the nursing staff and admitting physician We will follow on clinical condition and cultures to further adjust medication if needed Thank you for this consultation we will follow the patient along with you Dictation was produced using [employer] dictation software. please excuse any grammatical, word or spelling errors. Time with Patient: Greater than 30
--- NOTE | 2023-05-19 09:06 | P.CNOR ---
History of Present Illness - [facility] Consult date: 05/19/23 Consult reason: other (Hip pain) History of present illness: The patient is a 58-year-old female who presented to the emergency department 3 days ago with seizures and chest pain. Patient was admitted for further evaluation by internal medicine and neurology. The patient is also complaining of right hip and back pain. Orthopedics was consulted for further evaluation. 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 for low K+. lupus History of Any Multi-Drug Resistant Organisms: C-DIFF Year Discovered:: 03/02/23 MDRO Source:: Stool Past Surgical History: Back Surgery, Breast Surgery, Cardiac Valve Replacement, Section, Cholecystectomy, Heart Catheterization, Hysterectomy, Pac emaker Additional Past Surgical History / Comment(s): pacemaker d/t bradyca rdia/hypotension with last one place in 2013 in [place], [place], 3 lower back surgeries, bilateral breast reduction. 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 She is independent. Smoking Status: Never smoker Past Alcohol Use History: None Reported Past Drug Use History: None Reported Additional Drug Use History / Comment(s): Marijuana use prn per pt. - Past Family History Mother Additional Family Medical History / Comment(s): Mother at the age of 49 yrs after surgery for silicon breast implants with a leak that caused ARDS and DIC per pt Father Family Medical History: Cancer, Hyperlipidemia, Hypertension Additional Family Medical History / Comment(s): Father is a colon cancer survivor. Medications and Allergies Home Medications Medication Instructions Recorded Confirmed Type Atorvastatin [Lipitor] 40 mg PO HS 09/24/21 05/16/23 History Cholestyramine (with Sugar) 4 gm PO DAILY PRN 09/24/21 05/16/23 History [Cholestyramine Packet] Gabapentin 300 mg PO QID 09/24/21 05/16/23 History Sertraline [Zoloft] 200 mg PO DAILY 09/24/21 05/16/23 History Dicyclomine [Bentyl] 20 mg PO TID PRN #30 tablet 04/30/22 05/16/23 Rx Apixaban [Eliquis] 5 mg PO BID 05/29/22 05/16/23 History busPIRone HCl [Buspar] 5 mg PO BID 06/11/22 05/16/23 History Bumetanide [BUMEX] 2 mg PO DAILY 06/24/22 05/16/23 History Zonisamide [Zonegran] 100 mg PO Q12HR 30 Days #60 cap 07/26/22 05/16/23 Rx Fludrocortisone [Florinef] 0.1 mg PO DAILY 09/20/22 05/16/23 History Ondansetron [Zofran] 4 mg PO Q8H PRN 11/29/22 05/16/23 History Nystatin 100,000 Unit/gm Powd 1 applic TOPICAL BID PRN 01/06/23 05/16/23 History [Mycostatin Powder] Ipratropium Nebulized [Atrovent 0.5 mg INHALATION RT-QID PRN 01/12/23 05/16/23 History Nebulized 0.2 MG/ML] Potassium Chloride ER [K-Dur 20] 20 meq PO DAILY 01/12/23 05/16/23 History Famotidine 20 mg PO BID 02/16/23 05/16/23 History HYDROcodone/APAP 10-325MG [[place] 0.5 tab PO TID 02/16/23 05/16/23 History 10-325] Metoprolol Succinate (ER) [Toprol 50 mg PO HS 02/16/23 05/16/23 History XL] Cyclobenzaprine [Flexeril] 5 mg PO TID PRN #15 tablet 03/02/23 05/16/23 Rx diphenhydrAMINE [Benadryl] 50 mg PO Q6HR PRN cap 03/11/23 05/16/23 Rx Sulfamethox-Tmp 800-160Mg [Bactrim 1 tab PO Q12HR #28 tab 04/14/23 05/16/23 Rx DS 800-160 mg] rOPINIRole HCL [Requip] 2 mg PO HS 04/28/23 05/16/23 History Collagenase [Santyl Ointment] 1 applic TOPICAL DAILY 30 Days #30 05/18/23 Rx each Miconazole 2% Vaginal Cream 1 applic VAGINAL HS 5 Days #5 each 05/18/23 Rx [Monistat 7] Allergies Allergy/AdvReac Type Severity Reaction Status Date / Time Penicillins Allergy Severe Anaphylaxis Verified 05/16/23 21:56 vancomycin Allergy Severe Swelling Verified 05/16/23 21:56 in lips albuterol [From Ventolin HFA] Allergy Rapid Verified 05/16/23 21:56 Heart Rate cefepime Allergy Swelling Verified 05/16/23 21:56 clindamycin Allergy Anaphylaxis Verified 05/16/23 21:56 dexamethasone [From Decadron] Allergy Unknown Verified 05/16/23 21:56 Influenza Virus Vaccines Allergy Unknown Verified 05/16/23 21:56 latex Allergy Unknown Verified 05/16/23 21:56 morphine Allergy Unknown Verified 05/16/23 21:56 prochlorperazine Allergy Unknown Verified 05/16/23 21:56 [From Compazine] galcanezumab-gnlm AdvReac Confusion, Verified 05/16/23 21:56 [From Emgality Pen] increased blood pressure metoclopramide [From Reglan] AdvReac "felt like Verified 05/16/23 21:56 I needed to jump out of my skin" Results CT of the right hip dated 05/18/2023 reveals no evidence of fracture and mild right hip osteoarthritis CT of the lumbar spine dated 05/18/2023 reveals grade 1 anteriolisthesis of L4 to L5 with severe spinal stenosis. Severe degenerative changes of the facet joints of L3 to L5 - Labs Labs: H & H 05/16/23 Range/Units 19:06 Hgb 13.0 (11.4-16.0) gm/dL Hct 39.8 (34.0-46.0) % Coagulation 05/16/23 Range/Units 19:06 INR 1.0 (<1.2) Result Diagrams: 05/16/23 19:06 05/16/23 19:06
[2023-05-19] MEDS: ONDANSETRON 4 MG/2 ML VIAL IVP PRN (10:52)
--- NOTE | 2023-05-19 13:21 | P.CNOR ---
History of Present Illness - [facility] Consult date: 05/19/23 Consult reason: low back pain History of present illness: Patient is a 58-year-old female who presented to [facility] for evaluation of a seizure. Patient was admitted to the hospital for further evaluation. During the seizure, she had worsening low back pain and right hip pain. Computed tomography scan of the lumbar and hip were done. Patient is being followed by internal medicine also at this time. Our orthopedic team was consulted, we have seen the patient in the past with regards to her low back. Patient was evaluated today on these meds/surgical floor. She was visualized up in the restroom ambulating with no assistive devices. She was able to get back to her bed with minimal assistance. There has been a issue dealing with the nursing staff and aids, the patient seemed very upset while I was examining her. Patient states that she has had a little bit increase in her low back pain, she has noticed some discomfort in the right hip region. Computed tomography scan of the lumbar and hip demonstrated no acute fractures or dislocations. Patient has known previous L5-S1 decompression and fusion, she has adjacent segment disease at ranges up to about the L2 region, this including central canal stenosis, neural foraminal stenosis and spondylitic changes. Patient has seen Dr. San in the office, she states that she is scheduled for a revision surgery in July 2023, she actually has a follow-up appointment with him scheduled for 06/01/2023. Since first evaluating patient back in March 2023, patient has had multiple hospital admissions for possible abscess involving her forearm on the right-hand side. We initially transferred the patient Marta Helton back in March 2023 with concern processes of discitis, patient said that no surgery was done. She has multiple medical comorbidities that are managed by her primary care doctor. 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 for low K+. lupus History of Any Multi-Drug Resistant Organisms: C-DIFF Year Discovered:: 03/02/23 MDRO Source:: Stool Past Surgical History: Back Surgery, Breast Surgery, Cardiac Valve Replacement, Section, Cholecystectomy, Heart Catheterization, Hysterectomy, Pacemaker Additional Past Surgical History / Comment(s): pacemaker d/t bradycardia/hypotension with last one place in 2013 in [place], [place], 3 lower back surgeries, bilateral breast reduction. 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 She is independent. Smoking Status: Never smoker Past Alcohol Use History: None Reported Past Drug Use History: None Reported Additional Drug Use History / Comment(s): Marijuana use prn per pt. - Past Family History Mother Additional Family Medical History / Comment(s): Mother at the age of 49 yrs after surgery for silicon breast implants with a leak that caused ARDS and DIC per pt Father Family Medical History: Cancer, Hyperlipidemia, Hypertension Additional Family Medical History / Comment(s): Father is a colon cancer survivor. Medications and Allergies Home Medications Medication Instructions Recorded Confirmed Type Atorvastatin [Lipitor] 40 mg PO HS 09/24/21 05/16/23 History Cholestyramine (with Sugar) 4 gm PO DAILY PRN 09/24/21 05/16/23 History [Cholestyramine Packet] Gabapentin 300 mg PO QID 09/24/21 05/16/23 History Sertraline [Zoloft] 200 mg PO DAILY 09/24/21 05/16/23 History Dicyclomine [Bentyl] 20 mg PO TID PRN #30 tablet 04/30/22 05/16/23 Rx Apixaban [Eliquis] 5 mg PO BID 05/29/22 05/16/23 History busPIRone HCl [Buspar] 5 mg PO BID 06/11/22 05/16/23 History Bumetanide [BUMEX] 2 mg PO DAILY 06/24/22 05/16/23 History Zonisamide [Zonegran] 100 mg PO Q12HR 30 Days #60 cap 07/26/22 05/16/23 Rx Fludrocortisone [Florinef] 0.1 mg PO DAILY 09/20/22 05/16/23 History Ondansetron [Zofran] 4 mg PO Q8H PRN 11/29/22 05/16/23 History Nystatin 100,000 Unit/gm Powd 1 applic TOPICAL BID PRN 01/06/23 05/16/23 History [Mycostatin Powder] Ipratropium Nebulized [Atrovent 0.5 mg INHALATION RT-QID PRN 01/12/23 05/16/23 History Nebulized 0.2 MG/ML] Potassium Chloride ER [K-Dur 20] 20 meq PO DAILY 01/12/23 05/16/23 History Famotidine 20 mg PO BID 02/16/23 05/16/23 History HYDROcodone/APAP 10-325MG [[place] 0.5 tab PO TID 02/16/23 05/16/23 History 10-325] Metoprolol Succinate (ER) [Toprol 50 mg PO HS 02/16/23 05/16/23 History XL] Cyclobenzaprine [Flexeril] 5 mg PO TID PRN #15 tablet 03/02/23 05/16/23 Rx diphenhydrAMINE [Benadryl] 50 mg PO Q6HR PRN cap 03/11/23 05/16/23 Rx Sulfamethox-Tmp 800-160Mg [Bactrim 1 tab PO Q12HR #28 tab 04/14/23 05/16/23 Rx DS 800-160 mg] rOPINIRole HCL [Requip] 2 mg PO HS 04/28/23 05/16/23 History Collagenase [Santyl Ointment] 1 applic TOPICAL DAILY 30 Days #30 05/18/23 Rx each Miconazole 2% Vaginal Cream 1 applic VAGINAL HS 5 Days #5 each 05/18/23 Rx [Monistat 7] Allergies Allergy/AdvReac Type Severity Reaction Status Date / Time Penicillins Allergy Severe Anaphylaxis Verified 05/16/23 21:56 vancomycin Allergy Severe Swelling Verified 05/16/23 21:56 in lips albuterol [From Ventolin HFA] Allergy Rapid Verified 05/16/23 21:56 Heart Rate cefepime Allergy Swelling Verified 05/16/23 21:56 clindamycin Allergy Anaphylaxis Verified 01/15/24 21:56 dexamethasone [From Decadron] Allergy Unknown Verified 05/16/23 21:56 Influenza Virus Vaccines Allergy Unknown Verified 05/16/23 21:56 latex Allergy Unknown Verified 05/16/23 21:56 morphine Allergy Unknown Verified 05/16/23 21:56 prochlorperazine Allergy Unknown Verified 05/16/23 21:56 [From Compazine] [id number] AdvReac Confusion, Verified 05/16/23 21:56 [From Emgality Pen] increased blood pressure metoclopramide [From Reglan] AdvReac "felt like Verified 05/16/23 21:56 I needed to jump out of my skin" Physical Examination Gen: AOx3, NAD VSS stable at this time Integument: No obvious open lesions or sores visualized throughout the lumbar spine, there is a well-healed incision in the lower lumbar spine Palpation: Mild tenderness with palpation noted to the paraspinal region of the lower lumbar spine ROM: Full range of motion in all major muscle groups of bilateral upper extremities, no focal deficits Range of motion of the lower extremities are intact, she has difficulty with hip flexion along with knee extension and knee flexion on the right-hand side Sensory Exam: Senory exam to light touch is intact C5-T1 Senosry exam to light touch is intact L2-S1 Motor: 5/5 strength patient the bilateral upper extremities with shoulder elevation, shoulder abduction, elbow extension, elbow flexion, wrist extension, wrist flexion, 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 4/5 strength appreciated in the bilateral lower extremities with hip flexion 4-/5 strength appreciated in the right lower extremity with knee extension, knee flexion, plantar flexion, dorsiflexion, EHL, FHL 5/5 strength appreciated in the left lower extremity with knee extension, knee flexion, plantar flexion, dorsiflexion, EHL, FHL Reflexes: Negative clonus bilaterally, negative Babinski bilaterally Special Test: Negative straight leg raise bilaterally Results - Labs Labs: H & H 05/16/23 Range/Units 19:06 Hgb 13.0 (11.4-16.0) gm/dL Hct 39.8 (34.0-46.0) % Coagulation 05/16/23 Range/Units 19:06 INR 1.0 (<1.2) Result Diagrams: 05/16/23 19:06 05/16/23 19:06 - Diagnostic results Hip CT: report reviewed, image reviewed CT Scan - lumbar: report reviewed, image reviewed Assessment and Plan Assessment: Chronic low back pain History of previous L5-S1 posterior lateral decompression fusion Multilevel lumbar spondylosis, central canal stenosis, neural foraminal stenosis Multiple medical comorbidities Plan: Imaging: Computed tomography scan of the hip and lumbar spine both report and images were reviewed, no acute fractures or dislocations are present. Adjacent segment disease involving the L4-L5, L3-L4, L2-L3 with weightbearing degrees of spondylosis, central canal stenosis and neural foraminal stenosis Plan: Was able to discuss the case, this including no physical exam findings and imaging studies my attending Dr. San. No emergent orthopedic surgical intervention is recommended at this time Recommendation continue her current medications for pain and discomfort. Patient will avoid heavy lifting, bending and twisting. Would utilize a walker as needed for ambulation Patient will follow up in office with Dr. San in the next 2 weeks for further evaluation and recheck Please contact our service with any acute questions regarding this patient Time with Patient: Less than 30
[2023-05-19] MEDS: COLLAGENASE 250 UNIT/GM OINTMENT 30 GM TUBE TOPICAL SCH (13:32)
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
[2023-05-19 14:38] VITALS: BP 123/69; PULSE 71; RESP 15; TEMP 98.9
== END 2023-05-19 14:43 | disposition home or self-care (01) ==
LOC: EC 18:48 → 6NMEDSUR 21:16
PROVIDERS: ADMIT Family Medicine; ATTEND Family Medicine
DX: G40.901 Epilepsy, unspecified, not intractable, with status epilepticus (principal); L98.492 Non-pressure chronic ulcer of skin of other sites with fat layer exposed; L88 Pyoderma gangrenosum; R07.89 Other chest pain; D68.61 Antiphospholipid syndrome; G25.81 Restless legs syndrome; G43.909 Migraine, unspecified, not intractable, without status migrainosus; N18.30 Chronic kidney disease, stage 3 unspecified; M32.9 Systemic lupus erythematosus, unspecified; F43.9 Reaction to severe stress, unspecified; H93.19 Tinnitus, unspecified ear; E23.0 Hypopituitarism; M25.551 Pain in right hip; M48.061 Spinal stenosis, lumbar region without neurogenic claudication; M47.816 Spondylosis without myelopathy or radiculopathy, lumbar region; G89.29 Other chronic pain; M54.2 Cervicalgia; F41.9 Anxiety disorder, unspecified; Z79.01 Long term (current) use of anticoagulants; Z79.52 Long term (current) use of systemic steroids; Z79.899 Other long term (current) drug therapy; Z88.5 Allergy status to narcotic agent; Z88.0 Allergy status to penicillin; Z88.7 Allergy status to serum and vaccine; Z88.8 Allergy status to other drugs, medicaments and biological substances; Z88.1 Allergy status to other antibiotic agents; Z91.040 Latex allergy status; Z86.711 Personal history of pulmonary embolism; Z86.718 Personal history of other venous thrombosis and embolism; Z90.49 Acquired absence of other specified parts of digestive tract; Z98.891 History of uterine scar from previous surgery; Z98.890 Other specified postprocedural states; Z16.39 Resistance to other specified antimicrobial drug; Z90.710 Acquired absence of both cervix and uterus; Z98.1 Arthrodesis status; Z95.3 Presence of xenogenic heart valve; Z82.49 Family history of ischemic heart disease and other diseases of the circulatory system; Z80.0 Family history of malignant neoplasm of digestive organs; Z83.49 Family history of other endocrine, nutritional and metabolic diseases; Z83.6 Family history of other diseases of the respiratory system; Z84.89 Family history of other specified conditions
CPT/HCPCS: 96376 ×4; 96375 ×3; 96374; 99285; 36415; 94640 ×2; 93005; 80053; 83735; 84484 ×2; 85025; 85610; 85730; 71046; 72131; 70450; 73700; G0378 ×4; J2060 ×3; J1200 ×4; J2920; J2930 ×2; J2405 ×3; J1170 ×5

== ENCOUNTER 2023-05-19 16:52 | Emergency (ER) | payer MEDICARE ==
[2023-05-19 17:42] VITALS: TEMP 98.6
[2023-05-19] MEDS ORDERED: HYDROmorphone 1 MG/ML 1 ML SYRINGE IM STA ×2 (17:57→21:13)
[2023-05-19] MEDS ORDERED: LORazepam 2 MG/ML INJ IM STA (17:57)
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
[2023-05-19] MEDS ORDERED: LIDOCAINE 4% PATCH TOPICAL ONE (21:57)
[2023-05-19] MEDS ORDERED: diazePAM 5 MG TAB PO STA (22:13)
[2023-05-19 23:09] VITALS: BP 137/66; PULSE 72; RESP 16
== END 2023-05-19 22:59 | disposition home or self-care (01) ==
LOC: EC 16:52
DX: G89.29 Other chronic pain (principal); M54.50 Low back pain, unspecified; F41.9 Anxiety disorder, unspecified; F12.90 Cannabis use, unspecified, uncomplicated; Z79.01 Long term (current) use of anticoagulants; Z79.899 Other long term (current) drug therapy; Z88.0 Allergy status to penicillin; Z88.1 Allergy status to other antibiotic agents; Z88.7 Allergy status to serum and vaccine; Z88.8 Allergy status to other drugs, medicaments and biological substances; Z91.040 Latex allergy status; Z90.49 Acquired absence of other specified parts of digestive tract
CPT/HCPCS: 72128; 99284; 96372 ×3; J2060; J1170

== ENCOUNTER 2023-06-13 06:24 | Emergency (ER) | payer MEDICARE ==
[2023-06-13 07:04] VITALS: TEMP 99.3
--- NOTE | 2023-06-13 08:04 | XR ---
EXAMINATION TYPE: XR chest 2V DATE OF EXAM: 06/13/2023 COMPARISON: 05/16/2023 HISTORY: 58-year-old female with cough and difficulty breathing TECHNIQUE: PA and lateral views FINDINGS: Right anterior chest wall pacemaker generator with right atrial lead. No cord or device projects over the heart. Prosthetic cardiac valve. Heart borderline enlarged. Mild patchy opacity at the right low er lung. Slight cephalization of the pulmonary vasculature but without any pleural effusion. Cholecys tectomy clips. IMPRESSION: 1. Borderline cardiomegaly and possible mild pulmonary vascular congestion. 2. In addition, there is patchy opacity at the right base that could represent early infiltrate.
--- NOTE | 2023-06-13 08:28 | ED ---
URI HPI - General Chief Complaint: Upper Respiratory Infection Stated Complaint: Shortness of Breath, fever Time Seen by Provider: 06/13/23 07:54 Source: patient, RN notes reviewed Mode of arrival: ambulatory Limitations: no limitations - History of Present Illness Initial Comments: This is a 58-year-old female who presents to the emergency department for coughing, congestion, and headaches. Symptoms started 3 days ago. She initially had GI symptoms with nausea and diarrhea. This improved to some extent, but progressed into coughing, congestion, and headaches. Reports an associated sore throat and a temperature of 101F. She does have some shortness of breath. Cough is described as productive. MD Complaint: cough, sore throat, nasal congestion - Related Data Home Medications Medication Instructions Recorded Confirmed Atorvastatin [Lipitor] 40 mg PO HS 09/24/21 05/19/23 Cholestyramine (with Sugar) 4 gm PO DAILY PRN 09/24/21 05/19/23 [Cholestyramine Packet] Gabapentin 300 mg PO QID 09/24/21 05/19/23 Sertraline [Zoloft] 200 mg PO DAILY 09/24/21 05/19/23 Apixaban [Eliquis] 5 mg PO BID 05/29/22 05/19/23 busPIRone HCl [Buspar] 5 mg PO BID 06/11/22 05/19/23 Bumetanide [BUMEX] 2 mg PO DAILY 06/24/22 05/19/23 Fludrocortisone [Florinef] 0.1 mg PO DAILY 09/20/22 05/19/23 Ondansetron [Zofran] 4 mg PO Q8H PRN 11/29/22 05/19/23 Nystatin 100,000 Unit/gm Powd 1 applic TOPICAL BID PRN 01/06/23 05/19/23 [Mycostatin Powder] Ipratropium Nebulized [Atrovent 0.5 mg INHALATION RT-QID PRN 01/12/23 05/19/23 Nebulized 0.2 MG/ML] Potassium Chloride ER [K-Dur 20] 20 meq PO DAILY 01/12/23 05/19/23 Famotidine 20 mg PO BID 02/16/23 05/19/23 HYDROcodone/APAP 10-325MG [[place] 0.5 tab PO TID 02/16/23 05/19/23 10-325] Metoprolol Succinate (ER) [Toprol 50 mg PO HS 02/16/23 05/19/23 XL] rOPINIRole HCL [Requip] 2 mg PO HS 04/28/23 05/19/23 Previous Rx's Medication Instructions Recorded Dicyclomine [Bentyl] 20 mg PO TID PRN #30 tablet 04/30/22 Zonisamide [Zonegran] 100 mg PO Q12HR 30 Days #60 cap 07/26/22 Cyclobenzaprine [Flexeril] 5 mg PO TID PRN #15 tablet 03/02/23 diphenhydrAMINE [Benadryl] 50 mg PO Q6HR PRN cap 03/11/23 Sulfamethox-Tmp 800-160Mg [Bactrim 1 tab PO Q12HR #28 tab 04/14/23 DS 800-160 mg] Collagenase [Santyl Ointment] 1 applic TOPICAL DAILY 30 Days #30 05/18/23 each Miconazole 2% Vaginal Cream 1 applic VAGINAL HS 5 Days #5 each 05/18/23 [Monistat 7] Azithromycin [Zithromax] 250 mg PO DIRECTED 5 Days #6 tab 06/13/23 Codeine Phosphate/Guaifenesin 5 - 10 ml PO Q4-6H PRN #473 ml 06/13/23 [Codeine Phosphate/Guaifenesin 10-100 mg/5 ml] Ipratropium Nebulized [Atrovent 0.5 mg INHALATION Q6HR #300 ml 06/13/23 Nebulized 0.2 MG/ML] Ondansetron Odt [Zofran Odt] 4 mg PO Q8HR PRN #20 tab 06/13/23 Allergies Allergy/AdvReac Type Severity Reaction Status Date / Time Penicillins Allergy Severe Anaphylaxis Verified 06/13/23 06:35 vancomycin Allergy Severe Swelling Verified 06/13/23 06:35 in lips albuterol [From Ventolin HFA] Allergy Rapid Verified 06/13/23 06:35 Heart Rate cefepime Allergy Swelling Verified 06/13/23 06:35 clindamycin Allergy Anaphylaxis Verified 06/13/23 06:35 dexamethasone [From Decadron] Allergy Unknown Verified 06/13/23 06:35 Influenza Virus Vaccines Allergy Unknown Verified 06/13/23 06:35 latex Allergy Unknown Verified 06/13/23 06:35 morphine Allergy Unknown Verified 06/13/23 06:35 prochlorperazine Allergy Unknown Verified 06/13/23 06:35 [From Compazine] galcanezumab-gnlm AdvReac Confusion, Verified 06/13/23 06:35 [From Emgality Pen] increased blood pressure metoclopramide [From Reglan] AdvReac "felt like Verified 06/13/23 06:35 I needed to jump out of my skin" Review of Systems ROS Statement: Those systems with pertinent positive or pertinent negative responses have been documented in the HPI. ROS Other: All systems not noted in ROS Statement are negative. 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 for low K+. lupus History of Any Multi-Drug Resistant Organisms: C-DIFF Date of last positivie culture/infection: 03/02/23 MDRO Source:: Stool Past Surgical History: Back Surgery, Breast Surgery, Cardiac Valve Replacement, Section, Cholecystectomy, Heart Catheterization, Hysterectomy, Pacemaker Additional Past Surgical History / Comment(s): pacemaker d/t br adycardia/hypotension with last one place in 2013 in [place], [place], 3 lower back surgeries, bilateral breast reduction. 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 Past Anesthesia/Blood Transfusion Reactions: No Reported Reaction Type of Cardiac Device: Permanent Pacemaker, Unknown Device Placement Date:: 2012 Past Psychological History: Anxiety Smoking Status: Never smoker Past Alcohol Use History: None Reported Past Drug Use History: None Reported - Past Family History Mother Additional Family Medical History / Comment(s): Mother at the age of 49 yrs after surgery for silicon breast implants with a leak that caused ARDS and DIC per pt Father Family Medical History: Cancer, Hyperlipidemia, Hypertension Additional Family Medical History / Comment(s): Father is a colon cancer survivor. General Exam Limitations: no limitations General appearance: alert, in no apparent distress Head exam: Present: atraumatic, normocephalic, normal inspection Respiratory exam: Present: normal lung sounds bilaterally. Absent: respiratory distress, wheezes, rales, rhonchi, stridor Cardiovascular Exam: Present: regular rate, normal rhythm, normal heart sounds. Absent: systolic murmur, diastolic murmur, rubs, gallop, clicks Neurological exam: Present: alert, oriented X3, CN II-XII intact Psychiatric exam: Present: normal affect, normal mood Skin exam: Present: warm, dry, intact, normal color. Absent: rash Course Vital Signs 06/13/23 06/13/23 06/13/23 06:33 08:35 08:42 Temperature 99.3 F Pulse Rate 71 80 84 Respiratory 18 Rate Blood Pressure 127/68 O2 Sat by Pulse 96 Oximetry 06/13/23 11:58 Temperature Pulse Rate 75 Respiratory 16 Rate Blood Pressure 122/80 O2 Sat by Pulse 96 Oximetry Medical Decision Making - Medical Decision Making This is a 58-year-old female who presents to the emergency department for coughing, congestion, and headaches. Was pt. sent in by a medical professional or institution? @ -No Did you speak to anyone other than the patient for history? @ -No Did you review nursing and triage notes? @ -Yes, and I agree, it is accurate with regards to the patient's symptoms. Were old charts reviewed? @ -No Differential Diagnosis? @ -Differential Cough: Influenza, Covid, RSV, croup, allergic rhinitis, GERD, pneumonia, bronchitis, COPD, viral pharyngitis, streptococcal pharyngitis, this is not meant to be an all-inclusive list. EKG interpreted by me (3pts min.)? @ -Not obtained X-rays interpreted by me (1pt min.)? @ -Chest x-ray obtained. My interpretation identifies an opacity in the right lung base. CT interpreted by me (1pt min.)? @ -Not obtained U/S interpreted by me (1pt. min.)? @ -Not obtained What testing was considered but not performed? (CT, X-rays, U/S, labs)? Why? @ -None What meds were considered but not given? Why? @ -None Did you discuss the management of the patient with other professionals? @ -No Did you reconcile home meds? @ -No Was smoking cessation discussed for >3mins.? @ -No Was critical care preformed (if so, how long)? @ -No Were there social determinants of health that impacted care today? How? (Homelessness, low income, unemployed, alcoholism, drug addiction, transportation, low edu. Level, literacy, decrease access to med. care, fdc, rehab)? @ -No Was there de-escalation of care discussed even if they declined? (Discuss DNR or withdrawal of care, Hospice)? @ -No What co-morbidities impacted this encounter? (DM, HTN, Smoking, COPD, CAD, Cance r, CVA, Hep., AIDS, mental health diagnosis, sleep apnea, morbid obesity)? @ -Blood disorder, renal disease Was patient admitted / discharged? @ -Discharged. COVID, influenza, and RSV testing were negative. Rapid strep test negative. Chest x-ray demonstrates a patchy opacity at the right lung base that could represent an early infiltrate. Patient requested a breathing treatment, but did not want albuterol or a DuoNeb treatment, as she states that albuterol makes her heart race and she is uncomfortable with this. She was subsequently given an ipratropium breathing treatment, which she did find beneficial. Pain, nausea, and coughing were also well controlled in the emergency department. Prior to discharge, she requested blood work to check her potassium, which she states is usually issue for her. Potassium was found to be within normal limits. Patient felt stable for discharge home. We'll treat patient for pneumonia. Prescription for azithromycin, ipratropium nebulizer treatments, Robitussin-AC cough syrup, and Zofran provided with dosing instructions reviewed. Otherwise advised follow up with her primary care provid er. Undiagnosed new problem with uncertain prognosis? @ -None Drug Therapy requiring intensive monitoring for toxicity (Heparin, Nitro, Insulin, Cardizem)? @ -None Were any procedures done? @ -None Diagnosis/symptom? @ -Pneumonia Acute, or Chronic, or Acute on Chronic? @ -Acute Uncomplicated (without systemic symptoms) or Complicated (systemic symptoms)? @ -Uncomplicated Side effects of treatment? @ -None Exacerbation, Progression, or Severe Exacerbation] @ -Not applicable Poses a threat to life or bodily function? @ -no Return precautions reviewed in depth, the patient is instructed to return to the emergency department with any new, worsening, or concerning symptoms. Patient verbalized understanding. This case was discussed in detail with the attending ED physician. Dr. Mayes. Presentation, findings, and treatment plan discussed in detail as well. - Lab Data Result diagrams: 06/13/23 10:32 06/13/23 10:32 Lab Results 06/13/23 06/13/23 06/13/23 Range/Units 06:39 06:39 10:32 WBC 8.6 (3.8-10.6) k/uL RBC 4.34 (3.80-5.40) m/uL Hgb 12.1 (11.4-16.0) gm/dL Hct 36.6 (34.0-46.0) % MCV 84.3 (80.0-100.0) fL MCH 27.8 (25.0-35.0) pg MCHC 33.0 (31.0-37.0) g/dL RDW 16.2 H (11.5-15.5) % Plt Count 238 (150-450) k/uL MPV 7.9 Neutrophils % 80 % Lymphocytes % 11 % Monocytes % 7 % Eosinophils % 1 % Basophils % 0 % Neutrophils # 6.8 (1.3-7.7) k/uL Lymphocytes # 1.0 (1.0-4.8) k/uL Monocytes # 0.6 (0-1.0) k/uL Eosinophils # 0.1 (0-0.7) k/uL Basophils # 0.0 (0-0.2) k/uL Anisocytosis Slight Sodium (137-145) mmol/L Potassium (3.5-5.1) mmol/L Chloride (98-107) mmol/L Carbon Dioxide (22-30) mmol/L Anion Gap mmol/L BUN (7-17) mg/dL Creatinine (0.52-1.04) mg/dL Est GFR (CKD-EPI)AfAm (>60 ml/min/1.73 sqM) Est GFR (CKD-EPI)NonAf (>60 ml/min/1.73 sqM) Glucose (74-99) mg/dL Calcium (8.4-10.2) mg/dL Total Bilirubin (0.2-1.3) mg/dL AST (14-36) U/L ALT (4-34) U/L Alkaline Phosphatase (38-126) U/L Total Protein (6.3-8.2) g/dL Albumin (3.5-5.0) g/dL Influenza Type A (PCR) Not Detected (Not Detectd) Influenza Type B (PCR) Not Detected (Not Detectd) RSV (PCR) Not Detected (Not Detectd) SARS-CoV-2 (PCR) Not Detected (Not Detectd) Group A Strep (PCR) NOT DETECTED (Not Detectd) 06/13/23 Range/Units 10:32 WBC (3.8-10.6) k/uL RBC (3.80-5.40) m/uL Hgb (11.4-16.0) gm/dL Hct (34.0-46.0) % MCV (80.0-100.0) fL MCH (25.0-35.0) pg MCHC (31.0-37.0) g/dL RDW (11.5-15.5) % Plt Count (150-450) k/uL MPV Neutrophils % % Lymphocytes % % Monocytes % % Eosinophils % % Basophils % % Neutrophils # (1.3-7.7) k/uL Lymphocytes # (1.0-4.8) k/uL Monocytes # (0-1.0) k/uL Eosinophils # (0-0.7) k/uL Basophils # (0-0.2) k/uL Anisocytosis Sodium 139 (137-145) mmol/L Potassium 4.0 (3.5-5.1) mmol/L Chloride 107 (98-107) mmol/L Carbon Dioxide 23 (22-30) mmol/L Anion Gap 9 mmol/L BUN 17 (7-17) mg/dL Creatinine 1.53 H (0.52-1.04) mg/dL Est GFR (CKD-EPI)AfAm 43 (>60 ml/min/1.73 sqM) Est GFR (CKD-EPI)NonAf 37 (>60 ml/min/1.73 sqM) Glucose 113 H (74-99) mg/dL Calcium 8.8 (8.4-10.2) mg/dL Total Bilirubin 0.5 (0.2-1.3) mg/dL AST 27 (14-36) U/L ALT 22 (4-34) U/L Alkaline Phosphatase 95 (38-126) U/L Total Protein 7.1 (6.3-8.2) g/dL Albumin 4.2 (3.5-5.0) g/dL Influenza Type A (PCR) (Not Detectd) Influenza Type B (PCR) (Not Detectd) RSV (PCR) (Not Detectd) SARS-CoV-2 (PCR) (Not Detectd) Group A Strep (PCR) (Not Detectd) - Radiology Data Radiology results: report reviewed, image reviewed Disposition Clinical Impression: Pneumonia Disposition: HOME SELF-CARE Instructions (If sedation given, give patient instructions): Pneumonia (ED) Additional Instructions: Return to the emergency department with any new, worsening, or concerning symptoms. Take the antibiotic as prescribed for 5 days. You can take the cough medication every 4-6 hours as needed. The Zofran can be taken every 8 hours as needed for nausea and vomiting. You can use the ipratropium breathing treatmen ts every 6 hours as needed for coughing and shortness of breath. Follow up with your primary care provider in 1-2 days. Prescriptions: Ipratropium Nebulized [Atrovent Nebulized 0.2 MG/ML] 0.5 mg INHALATION Q6HR #300 ml Codeine Phosphate/Guaifenesin [Codeine Phosphate/Guaifenesin 10-100 mg/5 ml] 5 - 10 ml PO Q4-6H PRN #473 ml PRN Reason: Cough Azithromycin [Zithromax] 250 mg PO DIRECTED 5 Days #6 tab Ondansetron Odt [Zofran Odt] 4 mg PO Q8HR PRN #20 tab PRN Reason: Nausea And Vomiting Is patient prescribed a controlled substance at d/c from ED?: Yes When asked, does pt state using other controlled substances?: Yes If prescribed controlled substance>3 days was MAPS reviewed?: Prescribed <3 Days Referrals: Franklin Hassan MD [Primary Care Provider] - 1-2 days Time of Disposition: 11:32
[2023-06-13] MEDS: IPRATROPIUM 0.5 MG/2.5 ML NEBU INHALATION STA (08:33)
[2023-06-13] MEDS: ONDANSETRON ODT 4 MG TAB PO STA (08:46)
[2023-06-13] MEDS: AZITHROMYCIN 500 MG TAB PO STA (08:46)
[2023-06-13] MEDS: guaiFENesin-Coden 100-10MG/5ML 10 ML CUP PO ONE ×2 (08:46→11:51)
[2023-06-13] MEDS: HYDROmorphone 1 MG/ML 1 ML SYRINGE IM STA ×2 (08:46→11:51)
[2023-06-13 10:56] LABS: Anisocytosis Slight; Basophils % (A) 0 %; Eosinophils # (A) 0.1 k/uL (0-0.7); Eosinophils % (A) 1 %; HCT 36.6 % (34.0-46.0); HGB 12.1 gm/dL (11.4-16.0); Lymphocytes % (A) 11 %; MCH 27.8 pg (25.0-35.0); MCV 84.3 fL (80.0-100.0); Mean Platelet Volume 7.9; Monocytes # (A) 0.6 k/uL (0-1.0); Monocytes % (A) 7 %; Neutrophils # (A) 6.8 k/uL (1.3-7.7); Neutrophils % (A) 80 %; Platelet Count 238 k/uL (150-450); RBC 4.34 m/uL (3.80-5.40); RDW 16.2 % (11.5-15.5); WBC 8.6 k/uL (3.8-10.6)
[2023-06-13 11:23] LABS: ALT 22 U/L (4-34); AST 27 U/L (14-36); African American GFR (CKD) 43 (>60 ml/min/1.73 sqM); Albumin 4.2 g/dL (3.5-5.0); Alkaline Phosphatase 95 U/L (38-126); Anion Gap 9 mmol/L; Blood Urea Nitrogen 17 mg/dL (7-17); Calcium 8.8 mg/dL (8.4-10.2); Carbon Dioxide 23 mmol/L (22-30); Chloride 107 mmol/L (98-107); Glucose 113 mg/dL (74-99); Non-African American GFR(CKD) 37 (>60 ml/min/1.73 sqM); Sodium 139 mmol/L (137-145); Total Bilirubin 0.5 mg/dL (0.2-1.3); Total Protein 7.1 g/dL (6.3-8.2)
[2023-06-13 12:05] VITALS: BP 122/80; PULSE 75; RESP 16
== END 2023-06-13 12:00 | disposition home or self-care (01) ==
LOC: EC 06:24
DX: J18.9 Pneumonia, unspecified organism (principal); F41.9 Anxiety disorder, unspecified; Z79.899 Other long term (current) drug therapy; Z91.040 Latex allergy status; Z88.0 Allergy status to penicillin; Z88.5 Allergy status to narcotic agent; Z88.8 Allergy status to other drugs, medicaments and biological substances; Z20.822 Contact with and (suspected) exposure to COVID-19
CPT/HCPCS: 36415; 94640; 87651; 80053; 85025; 87636; 71046; 99285; 96372 ×2; J1170

== ENCOUNTER 2023-06-18 21:53 | Observation (INO) | payer MEDICARE ==
--- NOTE | 2023-06-18 22:29 | ED ---
General Adult HPI - General Chief complaint: Chest Pain Stated complaint: chest pain Time Seen by Provider: 06/18/23 21:55 Source: patient, EMS Mode of arrival: EMS Limitations: no limitations - History of Present Illness Initial comments: Dictation was produced using [employer] dictation software. please excuse any grammatical, word or spelling errors. Chief Complaint: 58-year-old female presents to the emergency department with chest pain History of Present Illness: Patient 58-year-old female presents to the emergency C department with crushing substernal chest pain. Patient states she has had the symptoms for approximately 1 hour. States that she has had symptoms like this secondary to heart attack in the past. Patient states she is disabled secondary to complications of autoimmune disease which she states was triggered by a influenza vaccine several months ago. States that the pressure is to her substernal chest radiates down both arms and up to the jaw. She states that she feels diaphoretic. States that it feels like her previous heart attack. She was brought to the emergency department from home by EMS. She was given some sublingual nitroglycerin which improved her symptoms. States however that she is still feeling some pain. She does report that it is worse with deep inspiration. Does not radiate to her back. She states that her symptoms also feel like pulmonary embolism. Which she is also had. She takes anticoagulation medications. She reiterates that she cannot take morphine but can take Dilaudid for her pain which usually helps her symptoms. The ROS documented in this emergency department record has been reviewed and confirmed by me. Those systems with pertinent positive or negative responses have been documented in the HPI. All other systems are other negative and/or noncontributory. - Related Data Home Medications Medication Instructions Recorded Confirmed Atorvastatin [Lipitor] 40 mg PO HS 09/24/21 05/19/23 Cholestyramine (with Sugar) 4 gm PO DAILY PRN 09/24/21 05/19/23 [Cholestyramine Packet] Gabapentin 300 mg PO QID 09/24/21 05/19/23 Sertraline [Zoloft] 200 mg PO DAILY 09/24/21 05/19/23 Apixaban [Eliquis] 5 mg PO BID 05/29/22 05/19/23 busPIRone HCl [Buspar] 5 mg PO BID 06/11/22 05/19/23 Bumetanide [BUMEX] 2 mg PO DAILY 06/24/22 05/19/23 Fludrocortisone [Florinef] 0.1 mg PO DAILY 09/20/22 05/19/23 Ondansetron [Zofran] 4 mg PO Q8H PRN 11/29/22 05/19/23 Nystatin 100,000 Unit/gm Powd 1 applic TOPICAL BID PRN 01/06/23 05/19/23 [Mycostatin Powder] Ipratropium Nebulized [Atrovent 0.5 mg INHALATION RT-QID PRN 01/12/23 05/19/23 Nebulized 0.2 MG/ML] Potassium Chloride ER [K-Dur 20] 20 meq PO DAILY 01/12/23 05/19/23 Famotidine 20 mg PO BID 02/16/23 05/19/23 HYDROcodone/APAP 10-325MG [[place] 0.5 tab PO TID 02/16/23 05/19/23 10-325] Metoprolol Succinate (ER) [Toprol 50 mg PO HS 02/16/23 05/19/23 XL] rOPINIRole HCL [Requip] 2 mg PO HS 04/28/23 05/19/23 Previous Rx's Medication Instructions Recorded Dicyclomine [Bentyl] 20 mg PO TID PRN #30 tablet 04/30/22 Zonisamide [Zonegran] 100 mg PO Q12HR 30 Days #60 cap 07/26/22 Cyclobenzaprine [Flexeril] 5 mg PO TID PRN #15 tablet 03/02/23 diphenhydrAMINE [Benadryl] 50 mg PO Q6HR PRN cap 03/11/23 Sulfamethox-Tmp 800-160Mg [Bactrim 1 tab PO Q12HR #28 tab 04/14/23 DS 800-160 mg] Collagenase [Santyl Ointment] 1 applic TOPICAL DAILY 30 Days #30 05/18/23 each Miconazole 2% Vaginal Cream 1 applic VAGINAL HS 5 Days #5 each 05/18/23 [Monistat 7] Azithromycin [Zithromax] 250 mg PO DIRECTED 5 Days #6 tab 06/13/23 Codeine Phosphate/Guaifenesin 5 - 10 ml PO Q4-6H PRN #473 ml 06/13/23 [Codeine Phosphate/Guaifenesin 10-100 mg/5 ml] Ipratropium Nebulized [Atrovent 0.5 mg INHALATION Q6HR #300 ml 06/13/23 Nebulized 0.2 MG/ML] Ondansetron Odt [Zofran Odt] 4 mg PO Q8HR PRN #20 tab 06/13/23 Allergies Allergy/AdvReac Type Severity Reaction Status Date / Time Penicillins Allergy Severe Anaphylaxis Verified 06/13/23 06:35 vancomycin Allergy Severe Swelling Verified 06/13/23 06:35 in lips albuterol [From Ventolin HFA] Allergy Rapid Verified 06/13/23 06:35 Heart Rate cefepime Allergy Swelling Verified 06/13/23 06:35 clindamycin Allergy Anaphylaxis Verified 06/13/23 06:35 dexamethasone [From Decadron] Allergy Unknown Verified 06/13/23 06:35 Influenza Virus Vaccines Allergy Unknown Verified 06/13/23 06:35 latex Allergy Unknown Verified 06/13/23 06:35 morphine Allergy Unknown Verified 06/13/23 06:35 prochlorperazine Allergy Unknown Verified 06/13/23 06:35 [From Compazine] galcanezumab-gnlm AdvReac Confusion, Verified 06/13/23 06:35 [From Emgality Pen] increased blood pressure metoclopramide [From Reglan] AdvReac "felt like Verified 06/13/23 06:35 I needed to jump out of my skin" Review of Systems ROS Statement: Those systems with pertinent positive or pertinent negative responses have been documented in the HPI. ROS Other: All systems not noted in ROS Statement are negative. 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 for low K+. lupus History of Any Multi-Drug Resistant Organisms: C-DIFF Date of last positivie culture/infection: 03/02/23 MDRO Source:: Stool Past Surgical History: Back Surgery, Breast Surgery, Cardiac Valve Replacement, Section, Cholecystectomy, Heart Catheterization, Hysterectomy, Pacemaker Additional Past Surgical History / Comment(s): pacemaker d/t bradycardia/hypotension with last one place in 2013 in [place], [place], 3 lower back surgeries, bilateral breast reduction. 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 Past Anesthesia/Blood Transfusion Reactions: No Reported Reaction Type of Cardiac Device: Permanent Pacemaker, Unknown Device Placement Date:: 2012 Past Psychological History: Anxiety Smoking Status: Never smoker Past Alcohol Use History: None Reported Past Drug Use History: None Reported - Past Family History Mother Additional Family Medical History / Comment(s): Mother at the age of 49 yrs after surgery for silicon breast implants with a leak that caused ARDS and DIC per pt Father Family Medical History: Cancer, Hyperlipidemia, Hypertension Additional Family Medical History / Comment(s): Father is a colon cancer survivor. General Exam - General Exam Comments Initial Comments: PHYSICAL EXAM: General Impression: Alert and oriented x3, acute distress secondary to pain HEENT: Normocephalic atraumatic, extra-ocular movements intact, pupils equal and reactive to light bilaterally, mucous membranes moist. Cardiovascular: Heart regular rate and rhythm Chest: Able to complete full sentences, no retractions, no tachypnea Abdomen: abdomen soft, non-tender, non-distended, no organomegaly Musculoskeletal: Pulses present and equal in all extremities, no peripheral edema Motor: no focal deficits noted Neurological: CN II-XII grossly intact, no focal motor or sensory deficits noted Skin: Intact with no visualized rashes Psych: Normal affect and mood Limitations: no limitations Course Vital Signs 06/18/23 06/18/23 06/19/23 21:56 23:32 00:15 Temperature 98.7 F Pulse Rate 106 H 70 70 Respiratory 26 H 20 18 Rate Blood Pressure 127/102 133/84 103/85 O2 Sat by Pulse 97 97 98 Oximetry EKG Findings - EKG Comments: EKG Findings:: My EKG interpretation: Ventricular rate 108, sinus tachycardia,. 192, cures 86, QTc 373. No MA prolongation, no QTC prolongation, ST and T waves are difficult to interpret secondary to significant artifact however there does not appear to be any obvious ischemic or infarction changes. EKG compared to May 16, 2023 showing no changes. Overall, this EKG is unremarkable Medical Decision Making - Medical Decision Making Was pt. sent in by a medical professional or institution (, [facility], BARTENDER MANAGER, urgent care, hospital, or prison...) When possible be specific @ -No Did you speak to anyone other than the patient for history (EMS, parent, family, police, friend...)? What history was obtained from this source @ -No Did you review nursing and triage notes (agree or disagree)? Why? @ -I reviewed and agree with nursing and triage notes Were old charts reviewed (outside hosp., previous admission, EMS record, old EKG, old radiological studies, urgent care reports/EKG's, prison records)? Report findings @ -No old charts were reviewed Differential Diagnosis (chest pain, altered mental status, abdominal pain women, abdominal pain men, vaginal bleeding, musculoskeletal, weakness, fever, dyspnea, syncope, headache, dizziness, GI bleed, back pain, seizure, CVA, palpatations, mental health)? @ -Differential Chest Pain: Stable Angina, Unstable Angina, STEMI, NSTEMI Aortic Dissection, Pneumothorax, Musculoskeletal, Esophageal Spasm GERD, Cholecystitis, Pancreatitis, Zoster, this is not meant to be an all-inclusive list. EKG interpreted by me (3pts min.). @ -See above X-rays interpreted by me (1pt min.). @ -Chest x-ray shows no acute processes CT interpreted by me (1pt min.). @ -None done U/S interpreted by me (1pt. min.). @ -None done What testing was considered but not performed or refused? (CT, X-rays, U/S, labs)? Why? @ -None What meds were considered but not given or refused? Why? @ -None Did you discuss the management of the patient with other professionals (professionals i.e. , [facility], BARTENDER MANAGER, lab, RT, psych nurse, social media developer, communications tech, teacher, contracts officer, case making machine operator)? Give summary @ -Case discussed with hospitalist for admission Was smoking cessation discussed for >3mins.? @ -No Was critical care preformed (if so, how long)? @ -No Were there social determinants of health that impacted care today? How? (Homelessness, low income, unemployed, alcoholism, drug addiction, transportation, low edu. Level, literacy, decrease access to med. care, alf, rehab)? @ -No Was there de-escalation of care discussed even if they declined (Discuss DNR or withdrawal of care, Hospice)? DNR status @ -No What co-morbidities impacted this encounter? (DM, HTN, Smoking, COPD, CAD, Cancer, CVA, ARF, Chemo, Hep., AIDS, mental health diagnosis, sleep apnea, morbid obesity)? @ -History of CAD Was patient admitted / discharged? Hospital course, mention meds given and route, prescriptions, significant lab abnormalities, going to OR and other pertinent info. @ -58-year-old female presents to the ER for chest pain. Her symptoms are atypical typical features. Vital signs are stable upon arrival. Patient's symptoms improved with nitroglycerin. Also improved with Dilaudid. Initial EKG is unremarkable. Repeat EKG is negative. Labs unremarkable. Troponin and dimer are negative. Patient will be admitted observation for cardiac monitoring and cardiology consultation. Undiagnosed new problem with uncertain prognosis? @ -No Drug Therapy requiring intensive monitoring for toxicity (Heparin, Nitro, Insulin, Cardizem)? @ -No Were any procedures done? @ -No Diagnosis/symptom? Acute, or Chronic, or Acute on Chronic? Uncomplicated (without systemic symptoms) or Complicated (systemic symptoms)? @ -Chest pain Side effects of treatment? @ -No Exacerbation, Progression, or Severe Exacerbation? @ -No Poses a threat to life or bodily function? How? (Chest pain, [place], [place], pneumonia, PE, COPD, DKA, ARF, appy, cholecystitis, CVA, Diverticulitis, Homicidal, Suicidal, threat to staff... and all critical care pts) @ -yes - Lab Data Result diagrams: 06/18/23 22:29 06/18/23 22:29 Lab Results 06/18/23 06/18/23 06/18/23 Range/Units 22:29 22:29 22: WBC 8.5 (3.8-10.6) k/uL RBC 5.07 (3.80-5.40) m/uL Hgb 13.9 (11.4-16.0) gm/dL Hct 42.6 (34.0-46.0) % MCV 84.0 (80.0-100.0) fL MCH 27.5 (25.0-35.0) pg MCHC 32.7 (31.0-37.0) g/dL RDW 15.9 H (11.5-15.5) % Plt Count 402 (150-450) k/uL MPV 7.9 Neutrophils % 69 % Lymphocytes % 18 % Monocytes % 8 % Eosinophils % 2 % Basophils % 0 % Neutrophils # 5.9 (1.3-7.7) k/uL Lymphocytes # 1.5 (1.0-4.8) k/uL Monocytes # 0.7 (0-1.0) k/uL Eosinophils # 0.2 (0-0.7) k/uL Basophils # 0.0 (0-0.2) k/uL PT 11.0 (10.0-12.5) sec INR 1.0 (<1.2) APTT 27.2 (22.0-30.0) sec D-Dimer 0.27 (<0.60) mg/L FEU Sodium 139 (137-145) mmol/L Potassium 3.1 L (3.5-5.1) mmol/L Chloride 94 L (98-107) mmol/L Carbon Dioxide 30 (22-30) mmol/L Anion Gap 15 mmol/L BUN 33 H (7-17) mg/dL Creatinine 1.58 H (0.52-1.04) mg/dL Est GFR (CKD-EPI)AfAm 41 (>60 ml/min/1.73 sqM) Est GFR (CKD-EPI)NonAf 36 (>60 ml/min/1.73 sqM) Glucose 110 H (74-99) mg/dL Calcium 9.6 (8.4-10.2) mg/dL Total Bilirubin 0.4 (0.2-1.3) mg/dL AST 29 (14-36) U/L ALT 21 (4-34) U/L Alkaline Phosphatase 94 (38-126) U/L Troponin I (0.000-0.034) ng/mL NT-Pro-B Natriuret Pep 515 pg/mL Total Protein 7.9 (6.3-8.2) g/dL Albumin 4.8 (3.5-5.0) g/dL 06/18/23 Range/Units 22:29 WBC (3.8-10.6) k/uL RBC (3.80-5.40) m/uL Hgb (11.4-16.0) gm/dL Hct (34.0-46.0) % MCV (80.0-100.0) fL MCH (25.0-35.0) pg MCHC (31.0-37.0) g/dL RDW (11.5-15.5) % Plt Count (150-450) k/uL MPV Neutrophils % % Lymphocytes % % Monocytes % % Eosinophils % % Basophils % % Neutrophils # (1.3-7.7) k/uL Lymphocytes # (1.0-4.8) k/uL Monocytes # (0-1.0) k/uL Eosinophils # (0-0.7) k/uL Basophils # (0-0.2) k/uL PT (10.0-12.5) sec INR (<1.2) APTT (22.0-30.0) sec D-Dimer (<0.60) mg/L FEU Sodium (137-145) mmol/L Potassium (3.5-5.1) mmol/L Chloride (98-107) mmol/L Carbon Dioxide (22-30) mmol/L Anion Gap mmol/L BUN (7-17) mg/dL Creatinine (0.52-1.04) mg/dL Est GFR (CKD-EPI)AfAm (>60 ml/min/1.73 sqM) Est GFR (CKD-EPI)NonAf (>60 ml/min/1.73 sqM) Glucose (74-99) mg/dL Calcium (8.4-10.2) mg/dL Total Bilirubin (0.2-1.3) mg/dL AST (14-36) U/L ALT (4-34) U/L Alkaline Phosphatase (38-126) U/L Troponin I <0.012 (0.000-0.034) ng/mL NT-Pro-B Natriuret Pep pg/mL Total Protein (6.3-8.2) g/dL Albumin (3.5-5.0) g/dL Disposition Clinical Impression: Chest pain Disposition: ADMITTED IP TO THIS [facility] Condition: Fair Referrals: None,Stated [REFERRING] - 1-2 days Decision Time: 01:04
[2023-06-18] MEDS: HYDROmorphone 1 MG/ML 1 ML SYRINGE IM STA (22:38)
--- NOTE | 2023-06-18 23:11 | XR ---
EXAM: XR Chest, 1 View CLINICAL HISTORY: chest pain TECHNIQUE: Frontal view of the chest. COMPARISON: No relevant prior studies available. FINDINGS: Lungs: Unremarkable. No acute infiltration, atelectasis or mass. Pleural space: Unremarkable. No pneumothorax or pleural fluid. Heart: Cardiomegaly. Mediastinum: Unremarkable. Normal mediastinal contour. Bones/joints: No acute findings. Tubes, lines and devices: Implanted cardiac pacer with lead in the region of the right atrium. Previous heart valve replacement. IMPRESSION: No acute findings in the chest.
[2023-06-18 23:24] LABS: Basophils % (A) 0 %; Eosinophils # (A) 0.2 k/uL (0-0.7); Eosinophils % (A) 2 %; HCT 42.6 % (34.0-46.0); HGB 13.9 gm/dL (11.4-16.0); Lymphocytes # (A) 1.5 k/uL (1.0-4.8); Lymphocytes % (A) 18 %; MCH 27.5 pg (25.0-35.0); MCHC 32.7 g/dL (31.0-37.0); Mean Platelet Volume 7.9; Monocytes # (A) 0.7 k/uL (0-1.0); Monocytes % (A) 8 %; Neutrophils # (A) 5.9 k/uL (1.3-7.7); Neutrophils % (A) 69 %; Platelet Count 402 k/uL (150-450); RBC 5.07 m/uL (3.80-5.40); RDW 15.9 % (11.5-15.5); WBC 8.5 k/uL (3.8-10.6)
[2023-06-18 23:35] LABS: Partial Thromboplastin Time 27.2 sec (22.0-30.0)
[2023-06-18] MEDS: HYDROmorphone 1 MG/ML 1 ML SYRINGE IVP STA (23:39)
[2023-06-18 23:45] LABS: ALT 21 U/L (4-34); AST 29 U/L (14-36); African American GFR (CKD) 41 (>60 ml/min/1.73 sqM); Albumin 4.8 g/dL (3.5-5.0); Alkaline Phosphatase 94 U/L (38-126); Anion Gap 15 mmol/L; Blood Urea Nitrogen 33 mg/dL (7-17); Calcium 9.6 mg/dL (8.4-10.2); Carbon Dioxide 30 mmol/L (22-30); Chloride 94 mmol/L (98-107); Glucose 110 mg/dL (74-99); Non-African American GFR(CKD) 36 (>60 ml/min/1.73 sqM); Potassium 3.1 mmol/L (3.5-5.1); Sodium 139 mmol/L (137-145); Total Bilirubin 0.4 mg/dL (0.2-1.3); Total Protein 7.9 g/dL (6.3-8.2)
[2023-06-18 23:52] LABS: NT-Pro-B-Type Natriuretic Pept 515 pg/mL
[2023-06-19] MEDS: NITROGLYCERIN SL TABS 0.4 MG TAB SUBLINGUAL PRN (02:27)
[2023-06-19] MEDS: HYDROmorphone 0.5 MG/0.5 ML SYRINGE IVP PRN (02:48)
[2023-06-19] MEDS: HYDROmorphone 0.5 MG/0.5 ML SYRINGE IVP STA ×3 (03:26→11:21)
[2023-06-19] MEDS ORDERED: diphenhydrAMINE 25 MG CAP PO PRN (07:36)
[2023-06-19] MEDS ORDERED: IPRATROPIUM 0.5 MG/2.5 ML NEBU INHALATION PRN (07:36)
[2023-06-19] MEDS ORDERED: ONDANSETRON 4 MG TAB PO PRN (07:36)
[2023-06-19] MEDS: IPRATROPIUM 0.5 MG/2.5 ML NEBU INHALATION SCH (07:50)
[2023-06-19] MEDS: SERTRALINE 100 MG TAB PO SCH (08:07)
[2023-06-19] MEDS: APIXABAN 5 MG TAB PO SCH (08:07)
[2023-06-19] MEDS: GABAPENTIN 300 MG CAP PO SCH (08:07)
[2023-06-19] MEDS: FAMOTIDINE 20 MG TAB PO SCH (08:08)
[2023-06-19] MEDS: HYDROcodone/APAP 10-325MG 1 EACH TAB PO SCH (08:08)
[2023-06-19] MEDS: busPIRone HCl 5 MG TAB PO SCH (08:08)
[2023-06-19] MEDS: BUMETANIDE 1 MG TAB PO SCH (08:26)
--- NOTE | 2023-06-19 08:37 | P.CRDCN ---
History of Present Illness Consult date: 06/19/23 Consult reason: chest pain History of present illness: History of present illness: This is a 58-year-old female patient of Dr. 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 We have been asked to evaluate the patient for chest pain. Patient states that for the last couple days she has been experiencing palpitations like her heart is flip-flopping when she palpates her heart rate she can feel that it skipping beats. She denies having any chest pain with this. Last night however, patient was watching TV developed pressure in the midsternal area radiated across her chest in both directions and up into both shoulders and neck along with palpitations. Chest pain was coming and going. She states it is relieved at this time most likely from nitroglycerin and Dilaudid. Patient also states that she has had a seizure and is in seizure precautions now. She is complaining of migraine headache. Patient was in the office with Dr. Hanson on 06/09/2023 with no complaints of chest pain at the time no palpitations. She was seen for preop cardiac clearance for lower back revision surgery with Dr. Diaz's and scheduled on July 11. She had a recent interrogation of her pacemaker at the device clinic which showed normal function. EKG sinus rhythm with ventricular rate of 108 bpm Chest x-ray: No acute process CBC is unremarkable. INR 1. D-dimer 0.27. Sodium 139, potassium 3.1, chloride 94, CO2 30, BUN 33 creatinine 1.58. Blood sugar 110. Troponin negative x 2. Liver function test within normal limits. proBNP 515. Home cardiac medications: Bumex 2 mg in the morning 1 mg in the afternoon, Eliquis 5 mg 2 times daily, Florinef 0.1 mg daily, Lipitor 40 mg daily, metolazone 5 mg daily as needed, spironolactone 50 mg 2 times daily. PORFIRIO performed 11/03/2022 revealed normal EF, mild TR, bioprosthetic tricuspid valve with normal appearance and no evidence of vegetations. Review Of Systems: At the time of my exam: CONSTITUTIONAL: Denies fever or chills. HEENT: Denies blurred vision, vision changes, or eye pain. Denies hemoptysis CARDIOVASCULAR: Denies chest pain. Denies orthopnea. Denies PND. Denies palpitations RESPIRATORY: Denies shortness of breath. GASTROINTESTINAL: Denies abdominal pain. Denies nausea or vomiting. HEMATOLOGIC: Denies bleeding disorders. GENITOURINARY: Denies any blood in urine. SKIN: Denies pruitis. Denies rash. Physical examination: Gen: This is a 58-year-old uncomfortable secondary to migraine headache. S eizure precautions in place VS: reviewed HEENT: Head is atraumatic, normocephalic. Pupils equal, round. Sclerae is anicteric. NECK: Supple. No JVD. LUNGS: Clear to auscultation. No wheezes or rhonchi. No intercostal retractions. HEART: Regular rate and rhythm. 2/6 systolic ejection murmur. ABDOMEN: Soft No tenderness. EXTREMITIES: No pedal edema. No calf tenderness. NEUROLOGICAL: Patient is awake, alert and oriented x3. Assessment: Atypical chest pain most likely musculoskeletal Palpitations Migraine headache Seizure disorder History of tricuspid valve repair x 2 Dyslipidemia Status post pacemaker secondary to bradycardia Chronic kidney disease stage III Multiple PEs Antiphospholipid antibody syndrome Scheduled for lower back revision surgery on 07/11 Plan: Resume patient's home cardiac medications Replace potassium Obtain 2-D echocardiogram and Doppler study to assess cardiac structure and function Further recommendations to follow based upon clinical course Thank you kindly for this consultation. Nurse practitioner note has been reviewed, I agree with documented findings and plan of care. Patient was seen and examined. Past Medical History Past Medical History: Blood Disorder, Myocardial Infarction ([place]), Pulmonary Embolus ([place]), Renal Disease, Seizure Disorder Additional Past Medical History / Comment(s): Antiphospholipid antibody syndrome which causes clots and bleeding, multiple PEs, R renal artery embolism/now atrophic, CKD stage III, hypotension, hypokalemia especially w/stress, lupus, pyoderm grangrenosum, decreased pituitary function pt states d/t clot, migraines, chonic cervical/back pain, herniated discs, RLS, vertigo, recent adm. for low K+. lupus, valve replacement x2 Last Myocardial Infarction Date:: 08/30/2018 History of Any Multi-Drug Resistant Organisms: C-DIFF Date of last positivie culture/infection: 03/02/23 MDRO Source:: Stool Past Surgical History: Back Surgery, Breast Surgery, Cardiac Valve Replacement, Section, Cholecystectomy, Heart Catheterization, Hysterectomy, Pacemaker Additional Past Surgical History / Comment(s): pacemaker d/t bradycardia/hypotension with last one place in 2013 in [place], [place], 3 lower back surgeries, bilateral breast reduction. 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 She is independent. Smoking Status: Never smoker Past Alcohol Use History: None Reported Past Drug Use History: None Reported Additional Drug Use History / Comment(s): Marijuana use prn per pt. - Past Family History Mother Additional Family Medical History / Comment(s): Mother at the age of 49 yrs after surgery for silicon breast implants with a leak that caused ARDS and DIC per pt Father Family Medical History: Cancer, Hyperlipidemia, Hypertension Additional Family Medical History / Comment(s): Father is a colon cancer survivor. Medications and Allergies Home Medications Medication Instructions Recorded Confirmed Type Atorvastatin [Lipitor] 40 mg PO HS 09/24/21 05/19/23 History Cholestyramine (with Sugar) 4 gm PO DAILY PRN 09/24/21 05/19/23 History [Cholestyramine Packet] Gabapentin 300 mg PO QID 09/24/21 05/19/23 History Sertraline [Zoloft] 200 mg PO DAILY 09/24/21 05/19/23 History Dicyclomine [Bentyl] 20 mg PO TID PRN #30 tablet 04/30/22 05/19/23 Rx Apixaban [Eliquis] 5 mg PO BID 05/29/22 05/19/23 History busPIRone HCl [Buspar] 5 mg PO BID 06/11/22 05/19/23 History Bumetanide [BUMEX] 2 mg PO DAILY 06/24/22 05/19/23 History Zonisamide [Zonegran] 100 mg PO Q12HR 30 Days #60 cap 07/26/22 05/19/23 Rx Fludrocortisone [Florinef] 0.1 mg PO DAILY 09/20/22 05/19/23 History Ondansetron [Zofran] 4 mg PO Q8H PRN 11/29/22 05/19/23 History Nystatin 100,000 Unit/gm Powd 1 applic TOPICAL BID PRN 01/06/23 05/19/23 History [Mycostatin Powder] Ipratropium Nebulized [Atrovent 0.5 mg INHALATION RT-QID PRN 01/12/23 05/19/23 History Nebulized 0.2 MG/ML] Potassium Chloride ER [K-Dur 20] 20 meq PO DAILY 01/12/23 05/19/23 History Famotidine 20 mg PO BID 02/16/23 05/19/23 History HYDROcodone/APAP 10-325MG [[place] 0.5 tab PO TID 02/16/23 05/19/23 History 10-325] Metoprolol Succinate (ER) [Toprol 50 mg PO HS 02/16/23 05/19/23 History XL] Cyclobenzaprine [Flexeril] 5 mg PO TID PRN #15 tablet 03/02/23 05/19/23 Rx diphenhydrAMINE [Benadryl] 50 mg PO Q6HR PRN cap 03/11/23 05/19/23 Rx Sulfamethox-Tmp 800-160Mg [Bactrim 1 tab PO Q12HR #28 tab 04/14/23 05/19/23 Rx DS 800-160 mg] rOPINIRole HCL [Requip] 2 mg PO HS 04/28/23 05/19/23 History Collagenase [Santyl Ointment] 1 applic TOPICAL DAILY 30 Days #30 05/18/23 05/19/23 Rx each Miconazole 2% Vaginal Cream 1 applic VAGINAL HS 5 Days #5 each 05/18/23 05/19/23 Rx [Monistat 7] Azithromycin [Zithromax] 250 mg PO DIRECTED 5 Days #6 tab 06/13/23 Rx Codeine Phosphate/Guaifenesin 5 - 10 ml PO Q4-6H PRN #473 ml 06/13/23 Rx [Codeine Phosphate/Guaifenesin 10-100 mg/5 ml] Ipratropium Nebulized [Atrovent 0.5 mg INHALATION Q6HR #300 ml 06/13/23 Rx Nebulized 0.2 MG/ML] Ondansetron Odt [Zofran Odt] 4 mg PO Q8HR PRN #20 tab 06/13/23 Rx Allergies Allergy/AdvReac Type Severity Reaction Status Date / Time Penicillins Allergy Severe Anaphylaxis Verified 06/13/23 06:35 vancomycin Allergy Severe Swelling Verified 06/13/23 06:35 in lips albuterol [From Ventolin HFA] Allergy Rapid Verified 06/13/23 06:35 Heart Rate cefepime Allergy Swelling Verified 06/13/23 06:35 clindamycin Allergy Anaphylaxis Verified 06/13/23 06:35 dexamethasone [From Decadron] Allergy Unknown Verified 06/13/23 06:35 Influenza Virus Vaccines Allergy Unknown Verified 06/13/23 06:35 latex Allergy Unknown Verified 06/13/23 06:35 morphine Allergy Unknown Verified 06/13/23 06:35 prochlorperazine Allergy Unknown Verified 06/13/23 06:35 [From Compazine] galcanezumab-gnlm AdvReac Confusion, Verified 06/13/23 06:35 [From Emgality Pen] increased blood pressure metoclopramide [From Reglan] AdvReac "felt like Verified 06/13/23 06:35 I needed to jump out of my skin" Physical Exam Vitals: Vital Signs Temp Pulse Pulse Resp BP BP Pulse Ox 06/19/23 07:54 70 06/19/23 07:52 98.2 F 70 19 112/72 99 06/19/23 02:53 97.9 F 72 18 120/76 93 L 06/19/23 02:27 98.5 F 71 18 120/61 98 06/19/23 00:15 70 18 103/85 98 06/18/23 23:32 70 20 133/84 97 06/18/23 21:56 98.7 F 106 H 26 H 127/102 97 Intake and Output 06/18/23 06/19/23 06/19/23 22:59 06:59 14:59 Other: Voiding Method Toilet Weight 65.771 kg 65.771 kg Results 06/18/23 22:29 06/18/23 22:29 Cardiac Enzymes 06/18/23 06/18/23 06/19/23 Range/Units 22:29 22:29 04:22 AST 29 (14-36) U/L Troponin I <0.012 <0.012 (0.000-0.034) ng/mL Coagulation 06/18/23 Range/Units 22:29 PT 11.0 (10.0-12.5) sec APTT 27.2 (22.0-30.0) sec CBC 06/18/23 Range/Units 22:29 WBC 8.5 (3.8-10.6) k/uL RBC 5.07 (3.80-5.40) m/uL Hgb 13.9 (11.4-16.0) gm/dL Hct 42.6 (34.0-46.0) % Plt Count 402 (150-450) k/uL Comprehensive Metabolic Panel 06/18/23 Range/Units 22:29 Sodium 139 (137-145) mmol/L Potassium 3.1 L (3.5-5.1) mmol/L Chloride 94 L (98-107) mmol/L Carbon Dioxide 30 (22-30) mmol/L BUN 33 H (7-17) mg/dL Creatinine 1.58 H (0.52-1.04) mg/dL Glucose 110 H (74-99) mg/dL Calcium 9.6 (8.4-10.2) mg/dL AST 29 (14-36) U/L ALT 21 (4-34) U/L Alkaline Phosphatase 94 (38-126) U/L Total Protein 7.9 (6.3-8.2) g/dL Albumin 4.8 (3.5-5.0) g/dL Current Medications Generic Name Dose Route Start Last Admin Trade Name Freq PRN Reason Stop Dose Admin Hydrocodone Bitart/Acetaminophen 0.5 each 06/19/23 09:00 06/19/23 08:08 Hydrocodone/Apap 10-325mg 1 Each Tab PO 0.5 each TID [facility] Administration Apixaban 5 mg 06/19/23 09:00 06/19/23 08:07 Apixaban 5 Mg Tab PO 5 mg BID [facility] Administration Protocol Aspirin 325 mg 06/20/23 09:00 Aspirin 325 Mg Tab PO DAILY [facility] Atorvastatin Calcium 40 mg 06/19/23 21:00 Atorvastatin 40 Mg Tab PO HS [facility] Bumetanide 2 mg 06/19/23 09:00 Bumetanide 1 Mg Tab PO DAILY [facility] Buspirone HCl 5 mg 06/19/23 09:00 06/19/23 08:08 Buspirone Hcl 5 Mg Tab PO 5 mg BID [facility] Administration Cyclobenzaprine HCl 5 mg 06/19/23 07:36 Cyclobenzaprine 5 Mg Tab PO TID PRN Muscle Spasm Dicyclomine HCl 20 mg 06/19/23 07:36 Dicyclomine 20 Mg Tab PO TID PRN STOMACH PAIN Diphenhydramine HCl 50 mg 06/19/23 07:36 Diphenhydramine 25 Mg Cap PO Q6HR PRN Allergy Symptoms Famotidine 20 mg 06/19/23 09:00 06/19/23 08:08 Famotidine 20 Mg Tab PO 20 mg BID [facility] Administration Fludrocortisone Acetate 0.1 mg 06/19/23 09:00 Fludrocortisone 0.1 Mg Tab PO DAILY [facility] Gabapentin 300 mg 06/19/23 09:00 06/19/23 08:07 Gabapentin 300 Mg Cap PO 300 mg QID [facility] Administration Hydromorphone HCl 0.5 mg 06/19/23 01:51 06/19/23 06:55 Hydromorphone 0.5 Mg/0.5 Ml Syringe IVP 0.5 mg Q4H PRN Administration Severe Pain (Scale 7 to 10) Ipratropium [place] 0.5 mg 06/19/23 08:00 06/19/23 07:50 Ipratropium 0.5 Mg/2.5 Ml Nebu INHALATION Not Given RT-Q6H [facility] Ipratropium [place] 0.5 mg 06/19/23 07:36 Ipratropium 0.5 Mg/2.5 Ml Nebu INHALATION RT-QID PRN Shortness Of Breath Lorazepam 0.5 mg 06/19/23 07:42 Lorazepam 2 Mg/Ml Inj IV Q4HR PRN Anxiety Metoprolol Succinate 50 mg 06/19/23 21:00 Metoprolol Succinate (Er) 50 Mg Tab.Er.24h PO HS [facility] Nitroglycerin 0.4 mg 06/19/23 01:00 06/19/23 02:27 Nitroglycerin Sl Tabs 0.4 Mg Tab SUBLINGUAL 0.4 mg Q5M PRN Administration Chest Pain Ondansetron HCl 4 mg 06/19/23 07:36 Ondansetron 4 Mg Tab PO Q8H PRN Nausea Ondansetron HCl 4 mg 06/19/23 07:36 Ondansetron Odt 4 Mg Tab PO Q8HR PRN Nausea And Vomiting Ropinirole HCl 2 mg 06/19/23 21:00 Ropinirole Hcl 1 Mg Tab PO HS [facility] Sertraline HCl 200 mg 06/19/23 09:00 06/19/23 08:07 Sertraline 100 Mg Tab PO 200 mg DAILY [facility] Administration Zonisamide 100 mg 06/19/23 09:00 Zonisamide 100 Mg Cap PO Q12HR ASAD Intake and Output 06/18/23 06/19/23 06/19/23 22:59 06:59 14:59 Other: Voiding Method Toilet Weight 65.771 kg 65.771 kg 06/18/23 22:29 06/18/23 22:29
[2023-06-19] MEDS: ONDANSETRON ODT 4 MG TAB PO PRN (09:29)
[2023-06-19] MEDS: POTASSIUM CHLORIDE ER 20 MEQ TAB.ER PO STA (09:29)
[2023-06-19] MEDS: ZONISAMIDE 100 MG CAP PO SCH (09:29)
[2023-06-19] MEDS: FLUDROCORTISONE 0.1 MG TAB PO SCH (09:29)
[2023-06-19] MEDS: CYCLOBENZAPRINE 5 MG TAB PO PRN (09:30)
[2023-06-19] MEDS ORDERED: KETOROLAC 15 MG/ML 1 ML VIAL IVP PRN (11:04)
[2023-06-19] MEDS: LORazepam 2 MG/ML INJ IV PRN (11:16)
[2023-06-19 11:21] LABS: Glucose,Whole Blood 131 mg/dL (70-110)
[2023-06-19] MEDS: diphenhydrAMINE 50 MG/ML 1 ML VIAL IVP PRN (11:21)
--- NOTE | 2023-06-19 12:32 | P.HPIM ---
History of Present Illness H&P Date: 06/19/23 History of present illness; patient is a 58-year-old lady with past medical history significant for tricuspid valve repair x 2 most recently in 2020 due to vegetation, dyslipidemia, migraine headaches, nonepileptic seizures multiple PEs, antiphospholipid antibody syndrome, chronic kidney disease stage III, lupus, status post single-chamber pacemaker due to bradycardia, pyoderma granulosum presented to the ER because of chest pain. Patient stated that she was all right 2 days ago when she started noticing that she was having palpitations, she checked her pulse and noticed that it was skipping. Following that last night she started experiencing chest pain that was central location, radiating to both shoulders, pressure-like, no aggravating or relieving factor associated with the chest pain. There was no complaint of shortness of breath. There is no complaint of nausea, vomiting abdominal pain. There was no complaint of sweating. Because of chest pain, patient came to the ER Initial lab work done in the ER showed WBC 8.5, hemoglobin 13.9, platelet count 402, sodium 139, potassium 3.1, BUN 33, creatinine 1.58, glucose 110 troponin 0.012 EKG done in the ER showed heart rate of 108, no ST segment elevation or depression seen, no T-wave inversions seen. Chest x-ray done in the ER no acute cardiopulmonary process Patient admitted to internal medicine service REVIEW OF SYSTEMS: CONSTITUTIONAL: No fever, no malaise, no fatigue. HEENT: No recent visual problems or hearing problems. Denied any sore throat. CARDIOVASCULAR: As mentioned above PULMONARY: As mentioned in HPI GASTROINTESTINAL: No diarrhea, no nausea, no vomiting, no abdominal pain. NEUROLOGICAL: No headaches, no weakness, no numbness. HEMATOLOGICAL: Denies any bleeding or petechiae. GENITOURINARY: Denies any burning micturition, frequency, or urgency. MUSCULOSKELETAL/RHEUMATOLOGICAL: Denies any joint pain, swelling, or any muscle pain. ENDOCRINE: Denies any polyuria or polydipsia. The rest of the 14-point review of systems is negative. PHYSICAL EXAMINATION: GENERAL: The patient is alert and oriented x3, not in any acute distress. Well developed, well nourished. HEENT: Pupils are round and equally reacting to light. EOMI. No scleral icterus. No conjunctival pallor. Normocephalic, atraumatic. No pharyngeal erythema. No thyromegaly. CARDIOVASCULAR: S1 and S2 present. No murmurs, rubs, or gallops. PULMONARY: Chest is clear to auscultation, no wheezing or crackles. ABDOMEN: Soft, nontender, nondistended, normoactive bowel sounds. No palpable organomegaly. MUSCULOSKELETAL: No joint swelling or deformity. EXTREMITIES: No cyanosis, clubbing, or pedal edema. NEUROLOGICAL: Gross neurological examination did not reveal any focal deficits. SKIN: No rashes. Assessment and plan Chest pain, rule out acute coronary syndrome Hypokalemia Palpitations Migraine headache Seizure disorder History of tricuspid valve repair x 2 Dyslipidemia Status post pacemaker secondary to bradycardia Chronic kidney disease stage III Multiple PEs Antiphospholipid antibody syndrome Scheduled for lower back revision surgery on 07/11 Monitor vital signs Monitor CBC Monitor CMP Continue telemetry monitoring Trend troponins. Ordered 2D echo Continue pain management Resume home meds consult cardiology Labs and medication were reviewed.. Continue same treatment. Continue with symptomatic treatment. Resume home medication. Monitor labs and vitals. DVT and GI prophylaxis. Further recommendations as per clinical course of the patient Dictation was produced using [employer] dictation software. please excuse any grammatical, word or spelling errors. Past Medical History Past Medical History: Blood Disorder, Myocardial Infarction ([place]), Pulmonary Embolus ([place]), Renal Disease, Seizure Disorder Additional Past Medical History / Comment(s): Antiphospholipid antibody syndrome which causes clots and bleeding, multiple PEs, R renal artery embolism/now atrophic, CKD stage III, hypotension, hypokalemia especially w/stress, lupus, pyoderm grangrenosum, decreased pituitary function pt states d/t clot, migraines, chonic cervical/back pain, herniated discs, RLS, vertigo, recent adm. for low K+. lupus, valve replacement x2 Last Myocardial Infarction Date:: 08/30/2018 History of Any Multi-Drug Resistant Organisms: C-DIFF Date of last positivie culture/infection: 03/02/23 MDRO Source:: Stool Past Surgical History: Back Surgery, Breast Surgery, Cardiac Valve Replacement, Section, Cholecystectomy, Heart Catheterization, Hysterectomy, Pacemaker Additional Past Surgical History / Comment(s): pacemaker d/t bradycardia/hypotension with last one place in 2013 in [place], [place], 3 lower back surgeries, bilateral breast reduction. 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 She is independent. Smoking Status: Never smoker Past Alcohol Use History: None Reported Past Drug Use History: None Reported Additional Drug Use History / Comment(s): Marijuana use prn per pt. - Past Family History Mother Additional Family Medical History / Comment(s): Mother at the age of 49 yrs after surgery for silicon breast implants with a leak that caused ARDS and DIC per pt Father Family Medical History: Cancer, Hyperlipidemia, Hypertension Additional Family Medical History / Comment(s): Father is a colon cancer survivor. Medications and Allergies Home Medications Medication Instructions Recorded Confirmed Type Atorvastatin [Lipitor] 40 mg PO HS 09/24/21 06/19/23 History Gabapentin 300 mg PO QID 09/24/21 06/19/23 History Sertraline [Zoloft] 200 mg PO DAILY 09/24/21 06/19/23 History Apixaban [Eliquis] 5 mg PO BID 05/29/22 06/19/23 History busPIRone HCl [Buspar] 5 mg PO BID 06/11/22 06/19/23 History Bumetanide [BUMEX] 2 mg PO DAILY 06/24/22 06/19/23 History Zonisamide [Zonegran] 100 mg PO Q12HR 30 Days #60 cap 07/26/22 06/19/23 Rx Fludrocortisone [Florinef] 0.1 mg PO DAILY 09/20/22 06/19/23 History Ondansetron [Zofran] 4 mg PO Q8H PRN 11/29/22 06/19/23 History Nystatin 100,000 Unit/gm Powd 1 applic TOPICAL BID PRN 01/06/23 06/19/23 History [Mycostatin Powder] Ipratropium Nebulized [Atrovent 0.5 mg INHALATION RT-QID PRN 01/12/23 06/19/23 History Nebulized 0.2 MG/ML] Potassium Chloride ER [K-Dur 20] 20 meq PO DAILY 01/12/23 06/19/23 History Famotidine 20 mg PO BID 02/16/23 06/19/23 History HYDROcodone/APAP 10-325MG [[place] 0.5 tab PO TID 02/16/23 06/19/23 History 10-325] Metoprolol Succinate (ER) [Toprol 50 mg PO HS 02/16/23 06/19/23 History XL] Cyclobenzaprine [Flexeril] 5 mg PO TID PRN #15 tablet 03/02/23 06/19/23 Rx diphenhydrAMINE [Benadryl] 50 mg PO Q6HR PRN cap 03/11/23 06/19/23 Rx Sulfamethox-Tmp 800-160Mg [Bactrim 1 tab PO Q12HR #28 tab 04/14/23 06/19/23 Rx DS 800-160 mg] rOPINIRole HCL [Requip] 2 mg PO HS 04/28/23 06/19/23 History Codeine Phosphate/Guaifenesin 5 - 10 ml PO Q4-6H PRN #473 ml 06/13/23 06/19/23 Rx [Codeine Phosphate/Guaifenesin 10-100 mg/5 ml] Ipratropium Nebulized [Atrovent 0.5 mg INHALATION Q6HR #300 ml 06/13/23 06/19/23 Rx Nebulized 0.2 MG/ML] Ondansetron Odt [Zofran Odt] 4 mg PO Q8HR PRN #20 tab 06/13/23 06/19/23 Rx Orphenadrine Citrate [Orphenadrine 100 mg PO DAILY 06/19/23 06/19/23 History Citrate ER] metOLazone [Zaroxolyn] 5 mg PO DAILY 06/19/23 06/19/23 History Allergies Allergy/AdvReac Type Severity Reaction Status Date / Time Penicillins Allergy Severe Anaphylaxis Verified 06/19/23 11:55 vancomycin Allergy Severe Swelling Verified 06/19/23 11:55 in lips albuterol [From Ventolin HFA] Allergy Rapid Verified 06/19/23 11:55 Heart Rate cefepime Allergy Swelling Verified 06/19/23 11:55 clindamycin Allergy Anaphylaxis Verified 06/19/23 11:55 dexamethasone [From Decadron] Allergy Unknown Verified 06/19/23 11:55 Influenza Virus Vaccines Allergy Unknown Verified 06/19/23 11:55 latex Allergy Unknown Verified 06/19/23 11:55 morphine Allergy Unknown Verified 06/19/23 11:55 prochlorperazine Allergy Unknown Verified 06/19/23 11:55 [From Compazine] galcanezumab-gnlm AdvReac Confusion, Verified 06/19/23 11:55 [From Emgality Pen] increased blood pressure metoclopramide [From Reglan] AdvReac "felt like Verified 06/19/23 11:55 I needed to jump out of my skin" Physical Exam Vitals: Vital Signs Temp Pulse Pulse Resp BP BP Pulse Ox 06/19/23 07:54 70 06/19/23 07:52 98.2 F 70 19 112/72 99 06/19/23 02:53 97.9 F 72 18 120/76 93 L 06/19/23 02:27 98.5 F 71 18 120/61 98 06/19/23 00:15 70 18 103/85 98 06/18/23 23:32 70 20 133/84 97 06/18/23 21:56 98.7 F 106 H 26 H 127/102 97 Intake and Output 06/18/23 06/19/23 06/19/23 22:59 06:59 14:59 Other: Voiding Method Toilet Weight 65.771 kg 65.771 kg Results CBC & Chem 7: 06/18/23 22:29 06/18/23 22:29 Labs: Abnormal Lab Results - Last 24 Hours (Table) 06/18/23 06/18/23 Range/Units 22:29 22:29 RDW 15.9 H (11.5-15.5) % Potassium 3.1 L (3.5-5.1) mmol/L Chloride 94 L (98-107) mmol/L BUN 33 H (7-17) mg/dL Creatinine 1.58 H (0.52-1.04) mg/dL Glucose 110 H (74-99) mg/dL
[2023-06-19] MEDS: METOPROLOL SUCCINATE (ER) 50 MG TAB.ER.24H PO SCH (20:39)
[2023-06-19] MEDS: ONDANSETRON 4 MG/2 ML VIAL IVP PRN (20:39)
[2023-06-19] MEDS: ATORVASTATIN 40 MG TAB PO SCH (20:40)
[2023-06-20] MEDS: ASPIRIN 325 MG TAB PO SCH (09:12)
[2023-06-20 10:18] LABS: African American GFR (CKD) 59 (>60 ml/min/1.73 sqM); Anion Gap 6 mmol/L; Blood Urea Nitrogen 23 mg/dL (7-17); Calcium 9.1 mg/dL (8.4-10.2); Carbon Dioxide 26 mmol/L (22-30); Chloride 106 mmol/L (98-107); Glucose 96 mg/dL (74-99); Non-African American GFR(CKD) 51 (>60 ml/min/1.73 sqM); Potassium 3.8 mmol/L (3.5-5.1); Sodium 138 mmol/L (137-145)
--- NOTE | 2023-06-20 10:28 | CA ---
Transthoracic Echo Report Name: Dania Meza Age: 58 Gender: F : 1965 Exam Date: 06/20/2023 09:25 Exam Location: [facility] Ht (in): 67 Wt (lb): 145 Ordering Physician: Loraine Reyes Attending/Referring Phys: [id number], Amy [employer] Director Inés Husain RCS Procedure CPT: Indications: LVF Cardiac Hx: Tricuspid valve replacement done elsewhere Technical Quality: Technically difficult study Contrast 1: Definity Total Dose (mL): 2 Contrast 2: Agitated Saline Total Dose (mL): 10 MEASUREMENTS (Male / Female) Normal Values 2D ECHO LV Diastolic Diameter PLAX 4.6 cm 4.2 - 5.9 / 3.9 - 5.3 cm LV Systolic Diameter PLAX 3.8 cm IVS Diastolic Thickness 0.8 cm 0.6 - 1.0 / 0.6 - 0.9 cm LVPW Diastolic Thickness 0.9 cm 0.6 - 1.0 / 0.6 - 0.9 cm LV Relative Wall Thickness 0.4 LVOT Diameter 2.2 cm LA Volume 44.4 cm??? 18 - 58 / 22 - 52 cm??? LA Volume Index 25.1 cm???/m??? 16 - 28 cm???/m??? Ascending Aorta Diameter 3.6 cm DOPPLER AV Peak Velocity 107.3 cm/s AV Peak Gradient 4.6 mmHg AV Mean Velocity 91.1 cm/s AV Mean Gradient 3.4 mmHg AV Velocity Time Integral 24.6 cm LVOT Peak Velocity 85.0 cm/s LVOT Peak Gradient 2.9 mmHg LVOT Velocity Time Integral 18.1 cm LVOT Stroke Volume 67.1 cm??? LVOT Stroke Volume Index 38.1 ml/m??? LVOT Cardiac Index 2660.2 cm???/min???m??? AV Area Cont Eq vti 2.7 cm??? AV Area Cont Eq pk 2.9 cm??? Mitral E Point Velocity 80.6 cm/s Mitral A Point Velocity 77.4 cm/s Mitral E to A Ratio 1.0 MV Deceleration Time 171.7 ms MV E' Velocity 3.4 cm/s Mitral E to MV E' Ratio 23.8 PV Peak Velocity 77.5 cm/s PV Peak Gradient 2.4 mmHg FINDINGS Left Ventricle Left ventricular ejection fraction is estimated at 55-60%. Left ventricular cavity size normal. Left ventricular wall thickness normal. No obvious regional wall motion abnormalities. Right Ventricle Normal right ventricular size by visual.right ventricular systolic pressure within normal limits. Right Atrium Normal right atrial size. Left Atrium Normal left atrial size. Mitral Valve Structurally normal mitral valve. No mitral stenosis. Trace mitral regurgitation. Aortic Valve Trileaflet aortic valve. No aortic valve stenosis or regurgitation. Tricuspid Valve Normally functioning prosthetic triscupid valve. Gradient recorded across the prosthetic tricuspid valve within the expected range. Tricuspid regurgitation cannot be accurately assessed due to shielding from the tricuspid valve prosthesis. Valve not well visualized Pulmonic Valve Pulmonic valve not well visualized. No pulmonic stenosis. Mild pulmonic regurgitation. Pericardium No pericardial effusion. Aorta Normal size aortic root and proximal ascending aorta. CONCLUSIONS Technically difficult study. Definity ECHO contrast used for improved visualization of the endocardial borders (inadequate visualization of two or more contiguous segments). Normal left ventricle size and systolic function Tricuspid valve prosthesis, not well-visualized. No accurate evaluation of the function could be done Previewed by: Dr. Mahesh Hanson MD (Electronically Signed) Final Date: 20 June 2023 10:27
[2023-06-20] MEDS: guaiFENesin SYRUP 100MG/5ML 200 MG/10 ML CUP PO PRN (10:32)
[2023-06-20] MEDS: ACETAMINOPHEN TAB 500 MG TAB PO SCH (10:32)
[2023-06-20] MEDS: diphenhydrAMINE 50 MG/ML 1 ML VIAL IVP PRN (11:27)
--- NOTE | 2023-06-20 11:43 | P.PN ---
Subjective HISTORY OF PRESENT ILLNESS: This is a 58-year-old female patient of Dr. 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 We have been asked to evaluate the patient for chest pain. Patient states that for the last couple days she has been experiencing palpitations like her heart is flip-flopping when she palpates her heart rate she can feel that it skipping beats. She denies having any chest pain with this. Last night however, patient was watching TV developed pressure in the midsternal area radiated across her chest in both directions and up into both shoulders and neck along with palpitations. Chest pain was coming and going. She states it is relieved at this time most likely from nitroglycerin and Dilaudid. Patient also states that she has had a seizure and is in seizure precautions now. She is complaining of migraine headache. Patient was in the office with Dr. Hanson on 06/09/2023 with no complaints of chest pain at the time no palpitations. She was seen for preop cardiac clearance for lower back revision surgery with Dr. Diaz's and sc heduled on July 11. She had a recent interrogation of her pacemaker at the device clinic which showed normal function. EKG sinus rhythm with ventricular rate of 108 bpm Chest x-ray: No acute process CBC is unremarkable. INR 1. D-dimer 0.27. Sodium 139, potassium 3.1, chloride 94, CO2 30, BUN 33 creatinine 1.58. Blood sugar 110. Troponin negative x 2. Liver function test within normal limits. proBNP 515. Home cardiac medications: Bumex 2 mg in the morning 1 mg in the afternoon, Eliquis 5 mg 2 times daily, Florinef 0.1 mg daily, Lipitor 40 mg daily, metolazone 5 mg daily as needed, spironolactone 50 mg 2 times daily. PORFIRIO performed 11/03/2022 revealed normal EF, mild TR, bioprosthetic tricuspid valve with normal appearance and no evidence of vegetations. 06/20/2023 Patient examined this morning at the bedside. Patient currently denies chest pain or shortness of breath. Patient is concerned this morning regarding her potassium levels and states that she always becomes symptomatic when her potassium is less than 3.5. Patient's potassium was 3.1 on admission and she received oral potassium supplementation. Repeat potassium this morning is 3.8. Echocardiogram completed revealing ejection fraction 55 to 60%, no obvious regional wall motion abnormalities, trace MR, and normally functioning prosthetic tricuspid valve. PHYSICAL EXAM: VITAL SIGNS: Reviewed. GENERAL: Well-developed in no acute distress. NECK: Supple. No JVD or thyromegaly LUNGS: Respirations even and unlabored. Lungs essentially clear to auscultation bilaterally. HEART: Regular rate and rhythm. S1 and S2 heard. EXTREMITIES: Normal range of motion. No clubbing or cyanosis. Peripheral pulses intact. No lower extremity edema ASSESSMENT: Atypical chest pain most likely musculoskeletal, ACS ruled out Palpitations Migraine headache Seizure disorder History of tricuspid valve repair x 2 Dyslipidemia Status post pacemaker secondary to bradycardia Chronic kidney disease stage III Multiple PEs Antiphospholipid antibody syndrome Scheduled for lower back revision surgery on 07/11 PLAN: An acute coronary event has been ruled out Continue home cardiac medications No further inpatient recommendations from a cardiac standpoint Will sign off. Please reconsult if needed. Nurse practitioner note has been reviewed by physician. Signing provider agrees with the documented findings, assessment, and plan of care documented by GAUGER CHIEF as a scribe. Objective - Vital Signs Vital signs: Vital Signs Temp 98.6 F 06/20/23 09:10 Pulse 76 06/20/23 11:10 Resp 16 06/20/23 09:10 BP 105/64 06/20/23 09:10 Pulse Ox 97 06/20/23 09:10 FiO2 Intake & Output 06/19/23 06/20/23 06/20/23 18:59 06:59 18:59 Intake Total 180 Balance 180 Intake: Oral 180 Other: Voiding Method Toilet Toilet Toilet # Voids 2 2 - Labs CBC & Chem 7: 06/18/23 22:29 06/20/23 09:06 Labs: Abnormal Lab Results - Last 24 Hours (Table) 06/20/23 Range/Units 09:06 BUN 23 H (7-17) mg/dL Creatinine 1.17 H (0.52-1.04) mg/dL
[2023-06-20] MEDS: DICLOFENAC SODIUM GEL 50 GM TUBE TOPICAL SCH (12:30)
[2023-06-20 15:34] LABS: Chol/HDL Ratio 4.58 Ratio; LDL Cholesterol,Calculated 139.5 mg/dL (0.0-131.0)
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
--- NOTE | 2023-06-21 00:40 | PN ---
PROGRESS NOTE DATE OF SERVICE: 06/20/2023 SUBJECTIVE: Dania Meza she came in with shortness of breath. Denies chest pain. Potassium 3.1 on admission. Potassium is 3.8 currently. Echo showed ejection fraction 55% to 60%. Trace MR, normally functioning tricuspid valve. OBJECTIVE: LUNGS: Clear. HEART: S1, S2. EXTREMITIES: Show no cyanosis, clubbing, or edema. Her right arm has a wound under the dressing. She came in with atypical chest pain, musculoskeletal, most likely palpitations, migraines, seizure disorder, tricuspid valve x2, status post pacemaker secondary to bradycardia, chronic kidney disease stage 3, multiple PEs, antiphospholipid syndrome with low back revision surgery on 07/11. Cardiac is going to sign off. If she has been cleared, we will possibly discharge her home if cleared by everybody after reassessed in the hospital at this time, apparently somebody consult for Neurology also for seizures, pseudoseizures per notes, but I will check that report and possible discharge home. Echo will go over that also. MMODL / IJN: [id number] /
[2023-06-21] MEDS: HYDROmorphone 1 MG/ML 1 ML SYRINGE IVP PRN ×2 (12:18→19:41)
[2023-06-21] MEDS: DICYCLOMINE 20 MG TAB PO PRN (15:05)
[2023-06-21] MEDS: methylPREDNISolone SOD SUCCI 125 MG/2 ML VIAL IV SCH (20:35)
--- NOTE | 2023-06-22 02:01 | PN ---
PROGRESS NOTE SUBJECTIVE: This is a 58-year-old white female who is going to go home today. She is unable to walk due to severe lower back pain with right leg numbness, unable to lift her leg. Suspect she has a lumbar radiculopathy with lumbar neuritis on the right side of her leg with severe muscle spasms in the lower right side due to difficulty moving after 50 minutes , negative IV steroids, Solu-Medrol 60 q.8h and see how she does overnight. OBJECTIVE: CARDIOVASCULAR: S1, S2. LUNGS: Clear. GI: Soft. HEMATOLOGY: Negative for Homans. PSYCH: Fair mood and affect. MUSCULOSKELETAL: Straight leg raise test positive on the right, 30 degrees. GI: Soft, nontender. Acute lumbar neuritis on the right due to right-sided weakness, right lower leg weakness. Prognosis guarded. Start IV Solu-Medrol, get orthopedic consult. Possible discharge home tomorrow. Prognosis guarded. Please see further orders. MMODL / IJN: [id number] /
--- NOTE | 2023-06-22 10:16 | P.PN ---
Subjective Progress Note Date: 06/21/23 Patient was seen for a follow-up. Patient's was also present today. Patient is standing on the side of the bed, bending forward, leaning on the bed, which she claims is to help her low back pain. She is scheduled for low back surgery on 07/12/2023. Patient states she has "trace headache", but has some photophobia, cannot concentrate. No seizures reported. Patient complains of feeling vertigo, weakness, memory not good. Objective - Vital Signs Vital signs: Vital Signs Temp 98.1 F 06/21/23 16:43 Pulse 68 06/21/23 16:43 Resp 18 06/21/23 16:43 BP 96/58 06/21/23 16:43 Pulse Ox 97 06/21/23 16:43 FiO2 Intake & Output 06/20/23 06/21/23 06/21/23 18:59 06:59 18:59 Intake Total 540 480 360 Balance 540 480 360 Intake: Oral 540 480 360 Other: Voiding Method Toilet Toilet Toilet # Voids 2 2 2 - Exam Unchanged. Mentation normal. - Labs CBC & Chem 7: 06/18/23 22:29 06/20/23 09:06 Assessment and Plan Assessment: * Breakthrough seizure, likely due to hypokalemia (potassium 3.1), missing 1 dose of Zonegran, and possible stress from acute chest pain and shortness of breath. * History of nonepileptic seizures * Atypical chest pain most likely musculoskeletal, ACS ruled out * Palpitations * History of tricuspid valve repair x 2 * Dyslipidemia * Status post pacemaker secondary to bradycardia * Dizziness * Posttraumatic migraines. Patient claims she has several migraines since her TBI in December 2007. Her migraines respond to Botox. * History of multiple ongoing psychosocial stresses. * History of TBI in December 2007 * Chronic back pain, multiple back surgeries, scheduled for lower back revision surgery * History of multiple PE, due to antiphospholipid antibody syndrome, per patient. * History of pyoderma gangrenosum * Chronic renal insufficiency, stage III Plan: * Patient's seizure was likely provoked because she missed 1 dose of Zonegran. Her dose of Zonegran 100 mg twice daily has been resumed. * Her seizures can also be triggered by hypokalemia. Her potassium on arrival was 3.1. Treatment of hypokalemia as per IM. * Check B12, folate for dizziness. * Patient has chronic migraines, and is scheduled for her Botox injection on 08/16/2022 as outpatient. * Patient does not have a neurologist, as her Botox is given by an pet crematory worker at [facility] Dr Aguirre. * Carotid Doppler from 09/25/2021 is normal. Antegrade flow in both vertebral arteries. * Neurologically no other workup indicated. Neurologically clear. Addendum: B12 502, folate 9. We will start folic acid 0.5 mg daily.
[2023-06-22 10:17] LABS: Basophils % (A) 0 %; Eosinophils % (A) 1 %; HGB 11.6 gm/dL (11.4-16.0); Hypochromasia Slight; Lymphocytes # (A) 0.4 k/uL (1.0-4.8); Lymphocytes % (A) 6 %; MCH 27.6 pg (25.0-35.0); MCHC 32.2 g/dL (31.0-37.0); MCV 85.7 fL (80.0-100.0); Mean Platelet Volume 8.4; Monocytes # (A) 0.2 k/uL (0-1.0); Monocytes % (A) 3 %; Neutrophils # (A) 6.6 k/uL (1.3-7.7); Neutrophils % (A) 90 %; Platelet Count 281 k/uL (150-450); RDW 15.6 % (11.5-15.5); WBC 7.3 k/uL (3.8-10.6)
[2023-06-22 11:03] LABS: ALT 19 U/L (4-34); AST 26 U/L (14-36); African American GFR (CKD) 59 (>60 ml/min/1.73 sqM); Albumin 3.5 g/dL (3.5-5.0); Alkaline Phosphatase 67 U/L (38-126); Anion Gap 7 mmol/L; Blood Urea Nitrogen 24 mg/dL (7-17); Carbon Dioxide 20 mmol/L (22-30); Chloride 109 mmol/L (98-107); Glucose 202 mg/dL (74-99); Non-African American GFR(CKD) 51 (>60 ml/min/1.73 sqM); Potassium 5.1 mmol/L (3.5-5.1); Sodium 136 mmol/L (137-145); Total Bilirubin 0.4 mg/dL (0.2-1.3); Total Protein 6.1 g/dL (6.3-8.2)
[2023-06-22] MEDS: FOLIC ACID 1 MG TAB PO SCH (12:29)
[2023-06-22 12:37] VITALS: RESP 18
[2023-06-22] MEDS: BUMETANIDE 0.25 MG/ML 4 ML VIAL IVP STA (15:49)
[2023-06-22 18:06] VITALS: BP 135/73; PULSE 71; TEMP 98.2
--- NOTE | 2023-07-23 04:43 | DS ---
DISCHARGE SUMMARY DISCHARGE MEDICATIONS: 1. Zoloft 200 mg daily. 2. Gabapentin 300 q.i.d. 3. Lipitor 40 daily. 4. Eliquis 5 mg b.i.d. 5. BuSpar 5 mg b.i.d. 6. Bumex 2 mg daily. 7. Zonegran 100 q.12h. 8. Florinef 0.1 daily. 9. Mycostatin powder b.i.d. 10.Potassium chloride 20 mEq daily. 11.DuoNeb. 12.Ipratropium nebulizer q.i.d. 13.Famotidine 20 b.i.d. 14.Toprol-XL 50 daily. 15.[place]ord 10/325 t.i.d. 16.Flexeril 5 mg t.i.d. 17.Benadryl 50 q.6h. 18.Bactrim Double Strength b.i.d. for 14 days. 19.Requip 2 mg at night. 20.DuoNeb q.i.d. 21.Tylenol No. 3 p.r.n. 22. . 23.Folic acid 0.5 mg daily. 24.Aspirin 325 daily. CONDITION: Stable. PROGNOSIS: Guarded. Ambulate as tolerated. Follow up in a week. The patient came to the hospital with palpitation and chest pain. She possibly had a seizure, pseudoseizure. Neurology saw her and Cardiology saw her, cleared her for surgery. She had a cardiac device check, which was normal. They ruled out acute coronary syndrome and cleared her for discharge. DIAGNOSES: 1. Atypical chest pain, musculoskeletal. 2. Palpitations. 3. Migraines. 4. Seizure. 5. Pseudoseizure. 6. History of tricuspid valve repair x2. 7. Dyslipidemia. 8. Pacemaker insertion. 9. Chronic kidney disease stage 3. 10.Multiple pulmonary embolisms. 11.Antiphospholipid syndrome. 12.Lower back revision on 07/11 was cleared. She was sent home after being cleared by a specialist. Prognosis is guarded. MMODL / IJN: [id number] /
== END 2023-06-22 17:58 | disposition home or self-care, planned readmission (81) ==
LOC: EC 21:53 → 6NMEDSUR 06-19 01:00 → 3SCARD 06-19 01:09
PROVIDERS: ADMIT Family Medicine; ATTEND Family Medicine
DX: R07.89 Other chest pain (principal); E87.6 Hypokalemia; I12.9 Hypertensive chronic kidney disease with stage 1 through stage 4 chronic kidney disease, or unspecified chronic kidney disease; N18.30 Chronic kidney disease, stage 3 unspecified; M32.9 Systemic lupus erythematosus, unspecified; D68.61 Antiphospholipid syndrome; G89.29 Other chronic pain; M54.16 Radiculopathy, lumbar region; G43.909 Migraine, unspecified, not intractable, without status migrainosus; G40.909 Epilepsy, unspecified, not intractable, without status epilepticus; E78.5 Hyperlipidemia, unspecified; Z95.3 Presence of xenogenic heart valve; R00.0 Tachycardia, unspecified; R00.1 Bradycardia, unspecified; Z95.0 Presence of cardiac pacemaker; R61 Generalized hyperhidrosis; I25.2 Old myocardial infarction; Z86.711 Personal history of pulmonary embolism; Z79.01 Long term (current) use of anticoagulants; Z79.52 Long term (current) use of systemic steroids; Z79.899 Other long term (current) drug therapy; Z88.0 Allergy status to penicillin; Z88.1 Allergy status to other antibiotic agents; Z91.040 Latex allergy status; Z88.5 Allergy status to narcotic agent; Z88.7 Allergy status to serum and vaccine; Z88.8 Allergy status to other drugs, medicaments and biological substances; Z87.820 Personal history of traumatic brain injury; Z87.01 Personal history of pneumonia (recurrent)
CPT/HCPCS: 96376 ×4; 96375 ×2; 96372; 96374; 99285; 36415; 94640 ×5; 94760; 93005; 97162; 85379; 83880; 80061; 80053 ×2; 80048; 82607; 82746; 84484 ×2; 85025 ×2; 85610; 85730; 71045; G0378 ×4; C8929; J2060; J1200 ×4; J2930 ×2; J2405 ×3; Q9957; J1170 ×7; 93306

== ENCOUNTER 2023-07-11 15:17 | Emergency (ER) | payer MEDICARE ==
[2023-07-11 15:48] VITALS: RESP 16
[2023-07-11 15:59] LABS: Basophils % (A) 1 %; Eosinophils # (A) 0.2 k/uL (0-0.7); Eosinophils % (A) 3 %; HCT 44.4 % (34.0-46.0); HGB 13.9 gm/dL (11.4-16.0); Lymphocytes # (A) 1.2 k/uL (1.0-4.8); Lymphocytes % (A) 15 %; MCH 27.2 pg (25.0-35.0); MCHC 31.4 g/dL (31.0-37.0); MCV 86.8 fL (80.0-100.0); Mean Platelet Volume 8.4; Monocytes # (A) 0.5 k/uL (0-1.0); Monocytes % (A) 6 %; Neutrophils # (A) 6.2 k/uL (1.3-7.7); Neutrophils % (A) 74 %; Platelet Count 271 k/uL (150-450); RBC 5.12 m/uL (3.80-5.40); RDW 15.4 % (11.5-15.5); WBC 8.3 k/uL (3.8-10.6)
--- NOTE | 2023-07-11 16:00 | XR ---
Supine abdomen. DATE: 07/11/2023. COMPARISON: None available. CLINICAL HISTORY: Abdominal pain and cramping. IMPRESSION: The bowel gas pattern is nonobstructive. There is no abnormal mass effect or suspicious calcifications.
--- NOTE | 2023-07-11 16:04 | ED ---
Abdominal Pain HPI - General Source: patient, RN notes reviewed Mode of arrival: ambulatory Limitations: no limitations <Jessica Davenport - Last Filed: 07/11/23 16:03> <Jon Perdomo - Last Filed: 07/11/23 18:45> - General Chief Complaint: Abdominal Pain Stated Complaint: GI Bleed Time Seen by Provider: 07/11/23 16:03 - History of Present Illness Initial Comments: Quick note: Patient is a 58-year-old female presented to ER with a chief complaint of bright red blood per rectum. Patient states she is scheduled for back surgery tomorrow and has been off of her blood thinner for the past 2 days. Patient reports she has been having black tarry clots for 1 day. Has not been taking any NSAIDs due to antiphospholipid antibody syndrome. She also is reporting epigastric pain. (Jessica Davenport) Dictation was produced using [employer] dictation software. please excuse any grammatical, word or spelling errors. Chief Complaint: 58-year-old female presents with abdominal pain and GI bleed History of Present Illness: Patient 58-year-old female presents emergency department for acute onset abdominal pain and GI bleed. Patient takes anticoagulation medications. States that for the last 2 days she has been having epigastric abdominal pain. Today she noted some bright red blood mixed with black stools. Patient has history of antiphospholipid syndrome. Denies any fever, chills or night sweats. States that the pain is severe. The ROS documented in this emergency department record has been reviewed and confirmed by me. Those systems with pertinent positive or negative responses have been documented in the HPI. All other systems are other negative and/or noncontributory. (Jon Perdomo) - Related Data Home Medications Medication Instructions Recorded Confirmed Atorvastatin [Lipitor] 40 mg PO HS 09/24/21 07/07/23 Gabapentin 600 mg PO QID 09/24/21 07/07/23 Sertraline [Zoloft] 200 mg PO DAILY 09/24/21 07/07/23 Apixaban [Eliquis] 5 mg PO BID 05/29/22 07/07/23 busPIRone HCl [Buspar] 5 mg PO BID 06/11/22 07/07/23 Bumetanide [BUMEX] 2 mg PO DAILY 06/24/22 07/07/23 Fludrocortisone [Florinef] 0.1 mg PO DAILY 09/20/22 07/07/23 Ondansetron [Zofran] 4 mg PO Q8H PRN 11/29/22 07/07/23 Ipratropium Nebulized [Atrovent 0.5 mg INHALATION RT-QID PRN 01/12/23 07/07/23 Nebulized 0.2 MG/ML] Potassium Chloride ER [K-Dur 20] 20 meq PO DAILY 01/12/23 07/07/23 Famotidine 20 mg PO BID 02/16/23 07/07/23 Metoprolol Succinate (ER) [Toprol 50 mg PO HS 02/16/23 07/07/23 XL] rOPINIRole HCL [Requip] 2 mg PO HS 04/28/23 07/07/23 Orphenadrine Citrate [Orphenadrine 100 mg PO DAILY 06/19/23 07/07/23 Citrate ER] Enoxaparin [Lovenox] 40 mg SQ DAILY 07/07/23 07/07/23 Hydrocodone/Acetaminophen 1 tab PO BID 07/07/23 07/07/23 [Hydrocodone/Acetaminophen 7.5-325] Unk Steroids 1 tab PO DIRECTED 07/07/23 07/07/23 Zonisamide [Zonegran] 100 mg PO Q12HR 07/07/23 07/07/23 diphenhydrAMINE [Benadryl] 50 mg IM Q6HR PRN 07/07/23 07/07/23 Previous Rx's Medication Instructions Recorded Cyclobenzaprine [Flexeril] 5 mg PO TID PRN #15 tablet 03/02/23 Codeine Phosphate/Guaifenesin 5 - 10 ml PO Q4-6H PRN #473 ml 06/13/23 [Codeine Phosphate/Guaifenesin 10-100 mg/5 ml] Ipratropium Nebulized [Atrovent 0.5 mg INHALATION Q6HR #300 ml 06/13/23 Nebulized 0.2 MG/ML] Aspirin 325 mg PO DAILY tab 06/22/23 Folic Acid 0.5 mg PO DAILY tab 06/22/23 Allergies Allergy/AdvReac Type Severity Reaction Status Date / Time Penicillins Allergy Severe Anaphylaxis Verified 07/07/23 09:58 vancomycin Allergy Severe Swelling Verified 07/07/23 09:58 in lips albuterol [From Ventolin HFA] Allergy Rapid Verified 07/07/23 09:58 Heart Rate cefepime Allergy Swelling Verified 07/07/23 09:58 clindamycin Allergy Anaphylaxis Verified 07/07/23 09:58 dexamethasone [From Decadron] Allergy severe Verified 07/07/23 09:58 pain, like needles in groin Influenza Virus Vaccines Allergy Anaphylaxis Verified 07/07/23 09:58 latex Allergy Itching Verified 07/07/23 09:58 and swelling morphine Allergy Anaphylaxis Verified 07/07/23 09:58 prochlorperazine Allergy severe Verified 07/07/23 09:58 [From Compazine] anxiety galcanezumab-gnlm AdvReac Confusion, Verified 07/07/23 09:58 [From Emgality Pen] increased blood pressure metoclopramide [From Reglan] AdvReac "felt like Verified 07/07/23 09:58 I needed to jump out of my skin" Review of Systems ROS Other: All systems not noted in ROS Statement are negative. <Jessica Davenport - Last Filed: 07/11/23 16:03> ROS Other: All systems not noted in ROS Statement are negative. <Jon Perdomo - Last Filed: 07/11/23 18:45> ROS Statement: Those systems with pertinent positive or pertinent negative responses have been documented in the HPI. 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 for low K+. lupus, valve replacement x2 Last Myocardial Infarction Date:: 08/30/2018 History of Any Multi-Drug Resistant Organisms: C-DIFF Date of last positivie culture/infection: 03/02/23 MDRO Source:: Stool Past Surgical History: Back Surgery, Breast Surgery, Cardiac Valve Replacement, Section, Cholecystectomy, Heart Catheterization, Hysterectomy, Pacemaker Additional Past Surgical History / Comment(s): pacemaker d/t bradycardia/hypotension with last one place in 2013 in [place], [place], 3 lower back surgeries, bilateral breast reduction. 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 Past Anesthesia/Blood Transfusion Reactions: No Reported Reaction Type of Cardiac Device: Permanent Pacemaker, Unknown Device Placement Date:: 2012 Past Psychological History: Anxiety Past Drug Use History: None Reported - Past Family History Father Family Medical History: Cancer, Hyperlipidemia, Hypertension <Jessica Davenport - Last Filed: 07/11/23 16:03> General Exam Limitations: no limitations <Jessica Davenport - Last Filed: 07/11/23 16:03> <Jon Perdomo - Last Filed: 07/11/23 18:45> - General Exam Comments Initial Comments: Visual Physical Exam Vital signs reviewed General: Appears in pain and uncomfortable Head: Normocephalic, atraumatic Eyes: PERRLA, EOMI ENT: Airway patent Chest: Nonlabored breathing Skin: No visual rash, normal skin tone Neuro: Alert and oriented 3 Musculoskeletal: No gross abnormalities (Jessica Davenport) PHYSICAL EXAM: General Impression: Alert and oriented x3, n acute distress secondary to pain HEENT: Normocephalic atraumatic, extra-ocular movements intact, pupils equal and reactive to light bilaterally, mucous membranes moist. Cardiovascular: Heart regular rate and rhythm Chest: Able to complete full sentences, no retractions, no tachypnea Abdomen: abdomen soft, n palpatory epigastric tenderness, non-distended, no organomegaly Musculoskeletal: Pulses present and equal in all extremities, no peripheral edema Motor: no focal deficits noted Neurological: CN II-XII grossly intact, no focal motor or sensory deficits noted Skin: Intact with no visualized rashes Psych: Normal affect and mood Rectal exam: No gross blood (Jon Perdomo) Course Vital Signs 07/11/23 15:21 Temperature 98.2 F Pulse Rate 76 Respiratory 16 Rate Blood Pressure 125/79 O2 Sat by Pulse 98 Oximetry Medical Decision Making - Lab Data Result diagrams: 07/11/23 15:36 <Jessica Davenport - Last Filed: 07/11/23 16:03> - Lab Data Result diagrams: 07/11/23 15:36 07/11/23 16:37 <LeanneJon D - Last Filed: 07/11/23 18:45> - Medical Decision Making I performed the quick note portion of this chart. Electronically signed by Jessica Davenport PA-C (Jessica Davenport) Was pt. sent in by a medical professional or institution ([facility], [facility], urgent care, hospital, or usp...) When possible be specific @ -No Did you speak to anyone other than the patient for history (EMS, parent, family, police, friend...)? What history was obtained from this source @ -No Did you review nursing and triage notes (agree or disagree)? Why? @ -I reviewed and agree with nursing and triage notes Were old charts reviewed (outside hosp., previous admission, EMS record, old EKG, old radiological studies, urgent care reports/EKG's, usp records)? Report findings @ -No old charts were reviewed Differential Diagnosis (chest pain, altered mental status, abdominal pain women, abdominal pain men, vaginal bleeding, musculoskeletal, weakness, fever, dyspnea, syncope, headache, dizziness, GI bleed, back pain, seizure, CVA, palpatations, mental health)? @ -Differential GI Bleed: Esophageal varices, aortoenteric fistula, [place], gastritis, peptic ulcer disease, diverticulosis, inflammatory bowel disease, hemorrhoids, fissure, colitis, malignancy, Meckels diverticulum, this is not meant to be an all- inclusive list. EKG interpreted by me (3pts min.). @ -None done X-rays interpreted by me (1pt min.). @ -None done CT interpreted by me (1pt min.). @ -CT scan of the abdomen pelvis shows no acute processes U/S interpreted by me (1pt. min.). @ -None done What testing was considered but not performed or refused? (CT, X-rays, U/S, labs)? Why? @ -None What meds were considered but not given or refused? Why? @ -None Did you discuss the management of the patient with other professionals (professionals i.e. [facility], [facility], lab, RT, psych nurse, social security assessor, pneumatic drum sander, teacher, landcare officer, rn case manager hospice)? Give summary @ -No Was smoking cessation discussed for >3mins.? @ -No Was critical care preformed (if so, how long)? @ -No Were there social determinants of health that impacted care today? How? (Homelessness, low income, unemployed, alcoholism, drug addiction, transportation, low edu. Level, literacy, decrease access to med. care, care home, rehab)? @ -No Was there de-escalation of care discussed even if they declined (Discuss DNR or withdrawal of care, Hospice)? DNR status @ -No What co-morbidities impacted this encounter? (DM, HTN, Smoking, COPD, CAD, Cancer, CVA, ARF, Chemo, Hep., AIDS, mental health diagnosis, sleep apnea, m orbid obesity)? @ -None Was patient admitted / discharged? Hospital course, mention meds given and route, prescriptions, significant lab abnormalities, going to OR and other pertinent info. @ -58-year-old female presents to the emergency department with abdominal pain and GI bleed. She is well-known to the emergency department for multiple visitations for myriad of complaints. Vital signs stable. Abdomen is soft on physical examination. Laboratory evaluation obtained. CBC, coag panel, met abolic panel are all within acceptable limits. Rectal exam is normal. Stool occult blood is negative. Patient given analgesics reevaluated bedside at 6:45 PM in stable condition. Patient is well-appearing and her pain is resolved. Patient agreeable for discharge. Undiagnosed new problem with uncertain prognosis? @ -No Drug Therapy requiring intensive monitoring for toxicity (Heparin, Nitro, Insulin, Cardizem)? @ -No Were any procedures done? @ -No Diagnosis/symptom? Acute, or Chronic, or Acute on Chronic? Uncomplicated (without systemic symptoms) or Complicated (systemic symptoms)? @ -Abdominal pain Side effects of treatment? @ -No Exacerbation, Progression, or Severe Exacerbation? @ -No Poses a threat to life or bodily function? How? (Chest pain, [place], [place], pneumonia, PE, COPD, DKA, ARF, appy, cholecystitis, CVA, Diverticulitis, Homicidal, Suicidal, threat to staff... and all critical care pts) @ -No (Jon Perdomo) - Lab Data Lab Results 07/11/23 07/11/23 07/11/23 Range/Units 15:34 15:36 15:36 WBC 8.3 (3.8-10.6) k/uL RBC 5.12 (3.80-5.40) m/uL Hgb 13.9 (11.4-16.0) gm/dL Hct 44.4 (34.0-46.0) % MCV 86.8 (80.0-100.0) fL MCH 27.2 (25.0-35.0) pg MCHC 31.4 (31.0-37.0) g/dL RDW 15.4 (11.5-15.5) % Plt Count 271 (150-450) k/uL MPV 8.4 Neutrophils % 74 % Lymphocytes % 15 % Monocytes % 6 % Eosinophils % 3 % Basophils % 1 % Neutrophils # 6.2 (1.3-7.7) k/uL Lymphocytes # 1.2 (1.0-4.8) k/uL Monocytes # 0.5 (0-1.0) k/uL Eosinophils # 0.2 (0-0.7) k/uL Basophils # 0.0 (0-0.2) k/uL PT 10.4 (10.0-12.5) sec INR 0.9 (<1.2) APTT 25.1 (22.0-30.0) sec Sodium (137-145) mmol/L Potassium (3.5-5.1) mmol/L Chloride (98-107) mmol/L Carbon Dioxide (22-30) mmol/L Anion Gap mmol/L BUN (7-17) mg/dL Creatinine (0.52-1.04) mg/dL Est GFR (CKD-EPI)AfAm (>60 ml/min/1.73 sqM) Est GFR (CKD-EPI)NonAf (>60 ml/min/1.73 sqM) Glucose (74-99) mg/dL Plasma Lactic Acid Raffi (0.7-2.0) mmol/L Calcium (8.4-10.2) mg/dL Total Bilirubin (0.2-1.3) mg/dL AST (14-36) U/L ALT (4-34) U/L Alkaline Phosphatase (38-126) U/L Troponin I (0.000-0.034) ng/mL Total Protein (6.3-8.2) g/dL Albumin (3.5-5.0) g/dL Amylase (30-110) U/L Lipase (23-300) U/L Stool Occult Blood (Negative) Blood Type O Positive Blood Type Recheck O Pos Bld Type Recheck Status No Antibody Screen NEGATIVE Spec Expiration Date 07/14/2023 - 233307/11/23 07/11/23 07/11/23 Range/Units 15:36 16:37 16:37 WBC (3.8-10.6) k/uL RBC (3.80-5.40) m/uL Hgb (11.4-16.0) gm/dL Hct (34.0-46.0) % MCV (80.0-100.0) fL MCH (25.0-35.0) pg MCHC (31.0-37.0) g/dL RDW (11.5-15.5) % Plt Count (150-450) k/uL MPV Neutrophils % % Lymphocytes % % Monocytes % % Eosinophils % % Basophils % % Neutrophils # (1.3-7.7) k/uL Lymphocytes # (1.0-4.8) k/uL Monocytes # (0-1.0) k/uL Eosinophils # (0-0.7) k/uL Basophils # (0-0.2) k/uL PT (10.0-12.5) sec INR (<1.2) APTT (22.0-30.0) sec Sodium 140 (137-145) mmol/L Potassium 3.4 L (3.5-5.1) mmol/L Chloride 102 (98-107) mmol/L Carbon Dioxide 29 (22-30) mmol/L Anion Gap 9 mmol/L BUN 23 H (7-17) mg/dL Creatinine 1.53 H (0.52-1.04) mg/dL Est GFR (CKD-EPI)AfAm 43 (>60 ml/min/1.73 sqM) Est GFR (CKD-EPI)NonAf 37 (>60 ml/min/1.73 sqM) Glucose 97 (74-99) mg/dL Plasma Lactic Acid Raffi 1.6 (0.7-2.0) mmol/L Calcium 9.3 (8.4-10.2) mg/dL Total Bilirubin 0.4 (0.2-1.3) mg/dL AST 47 H (14-36) U/L ALT 41 H (4-34) U/L Alkaline Phosphatase 87 (38-126) U/L Troponin I <0.012 (0.000-0.034) ng/mL Total Protein 7.4 (6.3-8.2) g/dL Albumin 4.6 (3.5-5.0) g/dL Amylase 88 (30-110) U/L Lipase 118 (23-300) U/L Stool Occult Blood (Negative) Blood Type Blood Type Recheck Bld Type Recheck Status Antibody Screen Spec Expiration Date 07/11/23 Range/Units 17:17 WBC (3.8-10.6) k/uL RBC (3.80-5.40) m/uL Hgb (11.4-16.0) gm/dL Hct (34.0-46.0) % MCV (80.0-100.0) fL MCH (25.0-35.0) pg MCHC (31.0-37.0) g/dL RDW (11.5-15.5) % Plt Count (150-450) k/uL MPV Neutrophils % % Lymphocytes % % Monocytes % % Eosinophils % % Basophils % % Neutrophils # (1.3-7.7) k/uL Lymphocytes # (1.0-4.8) k/uL Monocytes # (0-1.0) k/uL Eosinophils # (0-0.7) k/uL Basophils # (0-0.2) k/uL PT (10.0-12.5) sec INR (<1.2) APTT (22.0-30.0) sec Sodium (137-145) mmol/L Potassium (3.5-5.1) mmol/L Chloride (98-107) mmol/L Carbon Dioxide (22-30) mmol/L Anion Gap mmol/L BUN (7-17) mg/dL Creatinine (0.52-1.04) mg/dL Est GFR (CKD-EPI)AfAm (>60 ml/min/1.73 sqM) Est GFR (CKD-EPI)NonAf (>60 ml/min/1.73 sqM) Glucose (74-99) mg/dL Plasma Lactic Acid Raffi (0.7-2.0) mmol/L Calcium (8.4-10.2) mg/dL Total Bilirubin (0.2-1.3) mg/dL AST (14-36) U/L ALT (4-34) U/L Alkaline Phosphatase (38-126) U/L Troponin I (0.000-0.034) ng/mL Total Protein (6.3-8.2) g/dL Albumin (3.5-5.0) g/dL Amylase (30-110) U/L Lipase (23-300) U/L Stool Occult Blood Negative (Negative) Blood Type Blood Type Recheck Bld Type Recheck Status Antibody Screen Spec Expiration Date Disposition <Jessica Davenport - Last Filed: 07/11/23 16:03> Is patient prescribed a controlled substance at d/c from ED?: No Time of Disposition: 18:44 <Jon Perdomo - Last Filed: 07/11/23 18:45> Clinical Impression: Abdominal pain Disposition: HOME SELF-CARE Condition: Fair Instructions (If sedation given, give patient instructions): Abdominal Pain (ED) Referrals: Franklin Hassan MD [Primary Care Provider] - 1-2 days
[2023-07-11 16:23] LABS: INR 0.9 (<1.2); Partial Thromboplastin Time 25.1 sec (22.0-30.0); Prothrombin Time 10.4 sec (10.0-12.5)
[2023-07-11 17:02] LABS: ALT 41 U/L (4-34); AST 47 U/L (14-36); African American GFR (CKD) 43 (>60 ml/min/1.73 sqM); Albumin 4.6 g/dL (3.5-5.0); Alkaline Phosphatase 87 U/L (38-126); Amylase 88 U/L (30-110); Anion Gap 9 mmol/L; Blood Urea Nitrogen 23 mg/dL (7-17); Calcium 9.3 mg/dL (8.4-10.2); Carbon Dioxide 29 mmol/L (22-30); Chloride 102 mmol/L (98-107); Glucose 97 mg/dL (74-99); Lipase 118 U/L (23-300); Non-African American GFR(CKD) 37 (>60 ml/min/1.73 sqM); Potassium 3.4 mmol/L (3.5-5.1); Sodium 140 mmol/L (137-145); Total Bilirubin 0.4 mg/dL (0.2-1.3); Total Protein 7.4 g/dL (6.3-8.2)
[2023-07-11] MEDS: ONDANSETRON 4 MG/2 ML VIAL IVP STA (17:24)
[2023-07-11] MEDS: HYDROmorphone 1 MG/ML 1 ML SYRINGE IVP STA (17:28)
--- NOTE | 2023-07-11 18:08 | CT ---
EXAMINATION TYPE: CT abdomen pelvis wo con CT DLP: 479.3 mGycm, Automated exposure control for dose reduction was used. DATE OF EXAM: 07/11/2023 5:44 PM COMPARISON: Done CLINICAL INDICATION:Female, 58 years old with history of rectal bleeding; abdominal pain, rectal blee d TECHNIQUE: Axial CT abdomen pelvis wo con;Sagittal and coronal reformats were created on a separate workstation. Contrast used: mL of , (none if empty) Oral contrast used: without Oral Contrast (none if empty) FINDINGS: LOWER CHEST: High density within the tricuspid valve most compatible with valvular repair changes. ABDOMEN LIVER: Unremarkable GALLBLADDER AND BILE DUCTS: The gallbladder surgically absent PANCREAS: Unremarkable. SPLEEN: Unremarkable. ADRENAL GLANDS: Unremarkable. KIDNEYS AND URETERS: No evidence of hydronephrosis or renal calculus. The ureters are unremarkable. N onobstructing left 3 mm calculus. Atrophic right kidney with nonobstructing 2 mm calculus. PELVIS BLADDER: Unremarkable REPRODUCTIVE: The uterus is surgically absent. ABDOMEN & PELVIS STOMACH AND BOWEL: No evidence of bowel obstruction. Scattered colonic diverticula. PERITONEUM/RETROPERITONEUM: No evidence of pneumoperitoneum or free fluid. VASCULATURE: No evidence of aortic aneurysm. MUSCULOSKELETAL: No acute osseous abnormalities, post fixation changes at L4-L5 with hardware in plac e. Hardware appears intact. Grade 1 anterolisthesis of L4 and L5. There is at least moderate bilatera l neural foraminal stenosis at this level. LYMPH NODES: No gross evidence for lymphadenopathy. SOFT TISSUE/ABDOMINAL WALL: Unremarkable IMPRESSION: 1. No definitive evidence for rectal mass. No acute abdominal process. 2. Nonobstructing bilateral renal calculi. 3. Atrophic right kidney. 4. Scattered colonic diverticula. 5. Grade 1 anterolisthesis of L4 and L5. There is at least moderate bilateral neural foraminal steno sis at this level. 6. Tricuspid valvular repair changes.
[2023-07-11 19:27] VITALS: BP 121/75; PULSE 74; TEMP 98.3
== END 2023-07-11 18:47 | disposition home or self-care (01) ==
LOC: EC 15:17
DX: N20.0 Calculus of kidney (principal); N26.1 Atrophy of kidney (terminal); M43.16 Spondylolisthesis, lumbar region; K57.30 Diverticulosis of large intestine without perforation or abscess without bleeding; I25.2 Old myocardial infarction; F41.9 Anxiety disorder, unspecified; Z79.01 Long term (current) use of anticoagulants; Z79.899 Other long term (current) drug therapy; Z88.0 Allergy status to penicillin; Z88.1 Allergy status to other antibiotic agents; Z88.7 Allergy status to serum and vaccine; Z88.8 Allergy status to other drugs, medicaments and biological substances; Z91.040 Latex allergy status; Z88.5 Allergy status to narcotic agent
CPT/HCPCS: 36415; 93005; 86900; 86901; 80053; 82150; 83605; 83690; 84484; 85025; 85610; 85730; 86850; 82272; 74018; 74176; 99284; 96374; 96375; J2405; J1170

== ENCOUNTER 2023-07-12 08:19 | Inpatient (IN) | payer BC, MEDICARE ==
--- NOTE | 2023-07-10 10:46 | P.HPOR ---
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 I reviewed the patient's clinical syndrome, physical findings, and imaging studies during the appointment today. It is my impression that the patient has a diagnosis of. 1. L2-S1 spondylosis with stenosis 2. Grade I spondylolisthesis of L3 on L4 and L4 on L5 3. Lower extremity radiculopathy 4. s/p L5-S1 fusion 5. Bowel incontinence I outlined the natural course history without intervention and various interventional options. Spine Surgery Risk Review Ms. Meza is presenting for evaluation of low back and bilateral lower extremity pain, bilateral lower extremity numbness and tingling. It was my pl easure to have seen and examined Ms. Meza. In our visit today we have had a chance to go over subjective complaints, physical examination findings and treatments including the natural course histo ry without intervention and various interventional options. The patients imaging demonstrates: XRay Lumbar Multiview (AP, Lateral, Flexion, Extension) with AP pelvis; 5 views taken at [facility] on 09/30/22: - Reviewed with the patient today. Severe multilevel spondylitic changes with preserved alignment. Patient does have postsurgical changes L5-S1. Multilevel diminished disc height. Adjacent segment disease present L3-L4, L4-L5 with bilateral foraminal stenosis. Grade 1 anterolisthesis L4 onto L5. No acute osseous abnormalities. CT [facility]: - Reviewed with the patient today. There are severe degenerative and spondylotic changes noted with ASD at L3-4 and L4-5 above her previous L5-S1 fusion. There are vacuum discs at these levels with Grade I spondylolisthesis, unstable at L4- 5 as well as L3-4. There is flattened LL to around 10 deg with PI around 45 deg. There is stenosis related to these findings due to osteophytes, facet arthrosis, overgrowth, ligamental hypertrophy all causing central and foraminal stenosis. No fracture. no lesions noted. INCLUDEPICTURE P:\\\\ppart\\\\Files\\\\LE [id number]\\\\[id number]\\\\[id number]\\\\[id number]\\\\[id number]\\\\[id number]\\\\FMAR304\\\\[id number]\\\\[id number]\\\\L SNK886\\\\[id number]\\\\[id number]\\\\GOOF767\\\\IYRI237\\\\VRXU028\\\\FTCH455\\\\[id number]\\\\PVJK725\\\\ [id number]\\\\[id number]\\\\[id number].PNG \\d On physical exam, Ms. Meza demonstrates: A continued sharp, burning pain throughout the low back that radiates down into the bilateral lower extremities. She states her right lower extremity pain is much more severe than the left at this time. The patient notes intermittent right groin pain. She states that her lower extremity pain is associated with numbness and tingling, most severe throughout the bilateral foot. She states her symptoms worsen after prolonged sitting. She reports experiencing severe sleep disturbances related to her ongoing pain and associated symptoms. She notes an onset of bowel incontinence. I discussed with the patient that if she experiences worsening bowel incontinence or neurologic deficit then she should return to my office i mmediately or present to the emergency department. I have explained to the patient that as their condition progresses it will cause further neurological deficits and eventual paralysis. Based on the patients imaging, physical exam, and the rapid progression and disabling nature of their symptoms, at this time I recommend surgery in the form of a: L3-pelvis revision decompression and fusion with removal of hardware. I discussed the risk and benefits of this procedure at length with Ms. Meza. The patient agreed to considered pursuing the procedure above mentioned. Prior to surgery, she should follow up with her PCP (Cardio, ID, IM etc) for clearance. Questions were invited and answered, and the patient wishes to proceed as outlined below. Currently, I am recommendin.L3-pelvis revision decompression and fusion with removal of hardware 2.Review of surgical risks and benefits as well as an educational packet on the proposed surgical procedure. Risks: All surgical procedures come with inherent risks, including those related to pos itioning, anesthesia, intraoperative findings, and postoperative complications. It is important to understand that surgery does not come with any guarantee of a successful outcome as complications and adverse events are always possible. The patient was given a handout in office today discussing the surgical procedure and risks associated with the intervention, both of which were discussed with the patient. These risks include but are not limited to the following: * Experiencing same, different or even worse symptoms in back, neck, arms, or legs compared to before surgery. Requiring further surgery or other forms of treatment presently or at some time in the future at same or other levels of the intended spine surgery. On an extreme but fortunately relatively rare basis severe complication such as blindness, stroke, heart attack, temporary and/or permanent nerve injury, paralysis, coma, or may occur, sometimes without known explanation. Surgical complications may include but are not limited to risk of infection, fluid accumulation in the surgical dissection site, including a seroma or hematoma, that requires additional surgery, wound drainage, bleeding, new numbness or weakness, vision changes/loss, spinal fluid leakage, non-healing and/or infected incision, headaches, difficulty or inability to swallow, hoarseness, hemopneumothorax, pneumothorax, impotence, retrograde ejaculation, vaginal dryness; injury to nerves, spinal cord, blood vessels, lymphatics or other vital organs (i.e., bowel injury, injury to the great vessels); heterotopic bone formation; complications related to the hardware such as screws, rods, cages including misplaced hardware, device failure, instrumentation at the wrong spine level, hardware fracture/breakage, or hardware loosening; vertebral failure of the spinal column above or below the newly placed hardware; retained surgical instrumentations or devices and the need for further surgery. * Medical risks of the planned spine surgery include but are not limited to generalized Infections to the whole body or local areas outside of the surgical site (sepsis), heart attack, bleeding, anaphylaxis, meningitis, seizure, epilepsy, hearing loss, burn garcia, laceration of the head or other areas of the body, bruising, hypersensitivity of the skin, bladder over distension; allergic reaction; shoulder injury related to positioning; fat, blood and air clots to other areas of the body like heart, lungs, brain; failure of internal organs such as lungs, kidneys, liver and excessive bleeding. If blood transfusions are necessary, note that transfusions may cause intolerance reactions such as anaphylaxis or other complex reactions. Despite best efforts, the results of spine surgery might not heal in terms of bone, soft tissues such as skin, fascia, ligaments, and joints. Additionally, in order to achieve best possible results, spine surgery may be carried out beyond the initially planned levels and involve decompression, fusion including insertion of hardware at levels other than the original intended area of surgical interest change some portions of the procedure in order to ensure the best possible outcomes. With spine surgery and spinal fusion, there are different off label uses of instrumentation (devices, implants and hardware) as well as biological substances (bone morphogenic proteins, demineralized bone matrix) as well as using extra bone from allograft sources (i.e. cadaver bone) or autograft (iliac crest bone, ribs, or the spine itself). The patient has been given information about these practices and their inherent risks and benefits. [facility] is an educational center that serves as a training facility for neurosurgical and orthopedic AUTO BODY REPAIRMAN and Nursing students. Physician assistants are medically trained surgical providers who function in the outpatient, inpatient, and operating room setting under the direct supervision of the attending surgeon. [facility] has multiple operating rooms with single and overlapping rooms running daily. They currently function under the required guidelines as produced by the [facility] Finance Committee with regards to the overlapping rooms and will continue to comply with changes to this policy as they occur. The requirements include and are complied with as follows: (1) the critical portions of the overlapping rooms will not occur at the same time, (2) the attending physician will be physically present during the critical portions of the procedure and immediately available during the entire case, and (3) a back-up attending is designated should the primary attending not be immediately available. The patient has had a chance to review all the listed information, has been given print outs detailing this information, and has had all his/her questions answered to their satisfaction. It was my pleasure to have seen and examined Ms. Meza. In our visit today we have had a chance to go over my understanding of our patient's current condition, the natural course history without intervention and various interventional options. Questions were invited and answered, and the patient wishes to proceed as outlined above. I have seen and examined the patient for 25 minutes and we have spent more than 50% of the time in repeat and detailed counseling about the patient's condition, its natural course history with out and as much as can be predicted with surgery and re-review of various surgical treatment options. In conclusion, Ms. Meza requested we proceed with the above suggested surgery and are willing to accept risks and limitations of the suggested surgery as nature of the disease process and our best attempts at treatment for the condition. Thank you again for allowing us to be part of your patient's care. Please don't hesitate to contact me if you have any further questions. Follow-up: Post procedure Patient Education: (Informational booklet, instructions, etc) given at today's appointment: Yes .ED:Patient Education: Y Medications Reviewed: YES In our visit today Ms. Meza and I have had a chance to go over my understanding of the patient's current condition, the natural course history wit hout intervention and various interventional options. Questions were invited and answered, and the patient wishes to proceed as outlined above. I will be sure to keep you updated afterMs. Meza returns here for further follow-up. Thank you again for your referral. Please do not hesitate to contact me if you have any further questions. Signed and authenticated by: Brannon Sorensen [facility] Minimally Invasive Spine Surgery [address] [place] [id number] This message is confidential, intended only for the named recipient(s) and may contain information that is privileged or exempt from disclosure under applicable law. If you are not the intended recipient(s), you are notified that the dissemination, distribution or copying of this information is strictly prohibited. If you received this message in error, please notify the sender then delete this message. Patient verbalizes understanding of the information discussed. The above note was initiated by Mary Carvalho, physician recording assistant city attorney for Dr. Brannon San. This note has been reviewed by Dr. San, who has made his personal changes and impressions for this document. CC: Franklin Hassan M.D. Past Medical History Past Medical History: Blood Disorder, Chest Pain / Angina, COPD, GERD/Reflux, Myocardial Infarction (MT), Pneumonia, Pulmonary Embolus (PE), Renal Disease, Seizure Disorder Additional Past Medical History / Comment(s): Antiphospholipid antibody syndrome which causes clots and bleeding, multiple PEs, R renal artery embolism/now atrophic, CKD stage III ( one kidney), hypotension, hypokalemia especially w/stress, lupus, pyoderm grangrenosum, decreased pituitary function pt states d/t clot, migraines, chonic cervical/back pain, herniated discs, RLS, vertigo, recent adm. for low K+. lupus, valve replacement x2 bicuspid, seizures non epileptic brought on by migraines. 02 at night 2 liters. Last Myocardial Infarction Date:: 08/30/2018 History of Any Multi-Drug Resistant Organisms: C-DIFF Date of last positivie culture/infection: 03/02/23 MDRO Source:: Stool Past Surgical History: Back Surgery, Breast Surgery, Cardiac Valve Replacement, Section, Cholecystectomy, Heart Catheterization, Hysterectomy, Pacemaker Additional Past Surgical History / Comment(s): pacemaker d/t bradycardia/hypotension with last one place in 2013 in [place], [place], 3 lower back surgeries, bilateral breast reduction. left upper arm port placed by dr maki 04/30/2022 removed 2022 abcess, tricuspid valve replacement x2 with pig valve, multiple central lines for procedures, colonoscopy Past Anesthesia/Blood Transfusion Reactions: No Reported Reaction Additional Past Anesthesia/Blood Transfusion Reaction / Comment(s): blood transfusion no issues Type of Cardiac Device: Permanent Pacemaker Device Placement Date:: 2013 Smoking Status: Never smoker - Past Family History Mother Additional Family Medical History / Comment(s): Mother at the age of 49 yrs after surgery for silicon breast implants with a leak that caused ARDS and DIC per pt (fibroid cysts) Father Family Medical History: Cancer, Hyperlipidemia, Hypertension Additional Family Medical History / Comment(s): Father is a colon cancer survivor. Medications and Allergies Home Medications Medication Instructions Recorded Confirmed Type Atorvastatin [Lipitor] 40 mg PO HS 09/24/21 07/07/23 History Gabapentin 600 mg PO QID 09/24/21 07/07/23 History Sertraline [Zoloft] 200 mg PO DAILY 09/24/21 07/07/23 History Apixaban [Eliquis] 5 mg PO BID 05/29/22 07/07/23 History busPIRone HCl [Buspar] 5 mg PO BID 06/11/22 07/07/23 History Bumetanide [BUMEX] 2 mg PO DAILY 06/24/22 07/07/23 History Fludrocortisone [Florinef] 0.1 mg PO DAILY 09/20/22 07/07/23 History Ondansetron [Zofran] 4 mg PO Q8H PRN 11/29/22 07/07/23 History Ipratropium Nebulized [Atrovent 0.5 mg INHALATION RT-QID PRN 01/12/23 07/07/23 History Nebulized 0.2 MG/ML] Potassium Chloride ER [K-Dur 20] 20 meq PO DAILY 01/12/23 07/07/23 History Famotidine 20 mg PO BID 02/16/23 07/07/23 History Metoprolol Succinate (ER) [Toprol 50 mg PO HS 02/16/23 07/07/23 History XL] Cyclobenzaprine [Flexeril] 5 mg PO TID PRN #15 tablet 03/02/23 07/07/23 Rx rOPINIRole HCL [Requip] 2 mg PO HS 04/28/23 07/07/23 History Codeine Phosphate/Guaifenesin 5 - 10 ml PO Q4-6H PRN #473 ml 06/13/23 07/07/23 Rx [Codeine Phosphate/Guaifenesin 10-100 mg/5 ml] Ipratropium Nebulized [Atrovent 0.5 mg INHALATION Q6HR #300 ml 06/13/23 07/07/23 Rx Nebulized 0.2 MG/ML] Orphenadrine Citrate [Orphenadrine 100 mg PO DAILY 06/19/23 07/07/23 History Citrate ER] Aspirin 325 mg PO DAILY tab 06/22/23 07/07/23 Rx Folic Acid 0.5 mg PO DAILY tab 06/22/23 07/07/23 Rx Enoxaparin [Lovenox] 40 mg SQ DAILY 07/07/23 07/07/23 History Hydrocodone/Acetaminophen 1 tab PO BID 07/07/23 07/07/23 History [Hydrocodone/Acetaminophen 7.5-325] Unk Steroids 1 tab PO DIRECTED 07/07/23 07/07/23 History Zonisamide [Zonegran] 100 mg PO Q12HR 07/07/23 07/07/23 History diphenhydrAMINE [Benadryl] 50 mg IM Q6HR PRN 03/07/24 03/07/24 History Allergies Allergy/AdvReac Type Severity Reaction Status Date / Time Penicillins Allergy Severe Anaphylaxis Verified 07/07/23 09:58 vancomycin Allergy Severe Swelling Verified 07/07/23 09:58 in lips albuterol [From Ventolin HFA] Allergy Rapid Verified 07/07/23 09:58 Heart Rate cefepime Allergy Swelling Verified 07/07/23 09:58 clindamycin Allergy Anaphylaxis Verified 07/07/23 09:58 dexamethasone [From Decadron] Allergy severe Verified 07/07/23 09:58 pain, like needles in groin Influenza Virus Vaccines Allergy Anaphylaxis Verified 07/07/23 09:58 latex Allergy Itching Verified 07/07/23 09:58 and swelling morphine Allergy Anaphylaxis Verified 07/07/23 09:58 prochlorperazine Allergy severe Verified 07/07/23 09:58 [From Compazine] anxiety galcanezumab-gnlm AdvReac Confusion, Verified 07/07/23 09:58 [From Emgality Pen] increased blood pressure metoclopramide [From Reglan] AdvReac "felt like Verified 07/07/23 09:58 I needed to jump out of my skin" Physical Examination Osteopathic Statement: *. No significant issues noted on an osteopathic structural exam other than those noted in the History and Physical/Consult.
[~2023-07-12 08:19] MED LIST changes: +ACETAMINOPHEN TAB 500 MG TAB PO PRN; +GABAPENTIN 300 MG CAP PO PRN; -LACTATED RINGERS 1,000 ML IV SCH; -LIDOCAINE 1% (10MG/ML) FOR IV START INTRADERMA PRN; -ONDANSETRON 4 MG/2 ML VIAL IVP ONE; +ONDANSETRON 4 MG/2 ML VIAL IVP PRN; -ONDANSETRON 4 MG/2 ML VIAL ONE; -PROPOFOL 10 MG/ML 20 ML VIAL IV ONE; +TRANEXAMIC 1,000 MG/100ML-NACL 1,000 MG in SALINE 1 100ML.BAG IVPB PRN; -fentaNYL (PF) 50 MCG/ML 2 ML AMP IVP ONE; -fentaNYL (PF) 50 MCG/ML 2 ML AMP ONE
[2023-07-12 09:18] LABS: Glucose,Whole Blood 96 mg/dL (70-110)
[2023-07-12] MEDS: LACTATED RINGERS 1,000 ML IV SCH ×2 (10:09→18:06)
--- NOTE | 2023-07-12 10:21 | P.ANPRN ---
Procedure Note - Anesthesia - Invasive Line Right Central Line Time Out Performed: Yes Date of Procedure: 07/12/23 Time of Procedure: 09:57 Location of Patient: PreOp Preparation: Sterile Prep, Sterile Dressing Central Line Location: Internal Jugular Ultrasound Used: Yes Purpose - Visualization and Identification of Vasculature: Yes Image Stored and Saved: Yes Narrative: Invasive line placement per sterile protocol utilized.
[2023-07-12] MEDS ORDERED: diphenhydrAMINE 50 MG/ML 1 ML VIAL ONE (10:23)
[2023-07-12] MEDS: SCOPOLAMINE 1 MG/72 HR PATCH TRANSDERM ONE (10:30)
[2023-07-12] MEDS: ONDANSETRON 4 MG/2 ML VIAL IVP ONE (10:30)
[2023-07-12] MEDS: diphenhydrAMINE 50 MG/ML 1 ML VIAL IVP ONE (10:30)
[2023-07-12] MEDS ORDERED: HYDROmorphone (PF) 1 MG/ML ONE (10:35)
[2023-07-12] MEDS ORDERED: KETOROLAC 15 MG/ML 1 ML VIAL ONE (10:35)
[2023-07-12] MEDS ORDERED: NEOSTIGMINE 1 MG/ML 10 ML VIAL ONE (10:35)
[2023-07-12] MEDS ORDERED: fentaNYL (PF) 50 MCG/ML 2 ML AMP ONE (10:35)
[2023-07-12] MEDS ORDERED: ROCURONIUM 10 MG/ML (5 ML VIAL) IV ONE (10:35)
[2023-07-12] MEDS ORDERED: PROPOFOL 10 MG/ML 20 ML VIAL IV ONE (10:35)
[2023-07-12] MEDS ORDERED: SUCCINYLCHOLINE CHLORIDE 200 MG/10 ML VIAL IV ONE (10:35)
[2023-07-12] MEDS ORDERED: PHENYLEPHRINE 10 MG/ML VIAL ONE (10:35)
[2023-07-12] MEDS ORDERED: TRANEXAMIC 1,000 MG/100ML-NACL PREMIX BAG ONE (10:35)
[2023-07-12] MEDS ORDERED: MIDAZOLAM 2 MG/2 ML VIAL ONE (10:35)
[2023-07-12] MEDS ORDERED: GLYCOPYRROLATE 0.2 MG/ML 2 ML VIAL ONE (10:35)
[2023-07-12] MEDS: THROMBIN (BOVINE) 5,000 UNIT VIAL TOPICAL ONE (10:44)
--- NOTE | 2023-07-12 10:51 | XR ---
EXAMINATION TYPE: XR chest 1V confirm line plcmt DATE OF EXAM: 07/12/2023 10:36 AM CLINICAL INDICATION:Female, 58 years old with history of CENTRAL LINE PLACEMENT; [facility] COMPARISON: Chest radiographs from 06/18/2023 TECHNIQUE: XR chest 1V confirm line plcmt Frontal view of the chest. FINDINGS: Lungs/Pleura: There is no evidence of pleural effusion, focal consolidation, or pneumothorax. Pulmonary vascularity: Unremarkable. Heart/mediastinum: Cardiomediastinal silhouette is unremarkable. Post aortic valve repair changes. A loop recorder projects over the left thorax over the heart. Musculoskeletal: No acute osseous pathology. Other findings: None Right central venous catheter tip in the right atrium. IMPRESSION: 1. Right central venous catheter tip in the right atrium. 2. No acute cardiopulmonary disease/process.
[2023-07-12] MEDS: LACTATED RINGERS 1,000 ML IV ONE ×3 (12:44→17:10)
[2023-07-12] MEDS ORDERED: MAGNESIUM HYDROXIDE 2,400 MG/30 ML CUP PO PRN (14:53)
[2023-07-12] MEDS ORDERED: HYDROcodone/APAP 5-325MG 1 EACH TAB PO PRN (14:53)
[2023-07-12] MEDS ORDERED: bisacodyL 10 MG SUPP RECTAL PRN (14:53)
[2023-07-12] MEDS: DEXAMETHASONE SOD PHOSPHATE 4 MG/ML 1 ML VIAL IV ONE (15:24)
[2023-07-12] MEDS: HYDROmorphone 0.5 MG/0.5 ML SYRINGE IVP PRN (15:36)
--- NOTE | 2023-07-12 16:13 | FL ---
EXAMINATION TYPE: FL guidance operating room, XR lumbar spine 2 or 3V Intraoperative/procedural fluor oscopic services were provided. Total fluoroscopy time is 52 seconds with a total of 6 submitted imag es to PACS. Please see the operative/procedural note for further details. DAP: 7.898 Gycm2
[2023-07-12] MEDS: HYDROmorphone 1 MG/ML 1 ML SYRINGE IVP PRN (18:05)
[2023-07-12] MEDS: diphenhydrAMINE 50 MG/ML 1 ML VIAL IVP PRN (18:47)
[2023-07-12] MEDS: METOPROLOL SUCCINATE (ER) 50 MG TAB.ER.24H PO SCH (21:20)
[2023-07-12] MEDS: APIXABAN 5 MG TAB PO SCH (21:21)
[2023-07-12] MEDS: ATORVASTATIN 40 MG TAB PO SCH (21:21)
[2023-07-12] MEDS: FAMOTIDINE 20 MG TAB PO SCH (21:21)
[2023-07-12] MEDS: ZONISAMIDE 100 MG CAP PO SCH (21:21)
[2023-07-12] MEDS: IPRATROPIUM 0.5 MG/2.5 ML NEBU INHALATION PRN (21:31)
[2023-07-12] MEDS: MIDODRINE 5 MG TAB PO SCH (21:52)
[2023-07-12] MEDS: SODIUM CHLORIDE 0.9% 500 ML 500 ML IV ONE (23:57)
--- NOTE | 2023-07-13 00:07 | CT ---
EXAMINATION TYPE: CT lumbar spine wo con DATE OF EXAM: 07/12/2023 11:38 PM COMPARISON: Prior CT May 18, 2023 HISTORY: s/p Revision L3-Pelvis decompression and fusion CT DLP: 1887.9 mGycm Automated exposure control for dose reduction was used. Unenhanced CT of the lumbar spine was performed. Bone and soft tissue window settings are submitted as well as coronal and sagittal reconstructions. 5 lumbar type vertebra are redemonstrated. Posterior interpedicular rods and screws redemonstrated no w transfixing L3-S1 levels bilaterally. Artificial disc material L3-L4 and L4-L5 levels is now seen. More prominent posterior laminectomy defects bilaterally with spinous process centered at L4 level on current study. Heterogeneous ill-defined fluid and air posteriorly from recent surgery is noted. María tical oriented mariana in the skin are seen. Fusion hardware extends through the sacrum into the edson c bones to the sacroiliac joints on current study. Alignment is improved on current study. Axial images show screw positioning grossly satisfactory with slight anterior extension of the S1 scr ews through the anterior margin of the vertebra. Air along the lateral margin of the left iliopsoas m uscle is seen. Gomez catheter in bladder is noted. No free fluid in the pelvis. IMPRESSION: More prominent multilevel surgical change in the mid to lower lumbar spine through the pe lvis on current study. Alignment is improved.
[2023-07-13] MEDS: ONDANSETRON 4 MG/2 ML VIAL IVP PRN (02:10)
[2023-07-13] MEDS: HYDROcodone/APAP 10-325MG 1 EACH TAB PO PRN (02:14)
[2023-07-13] MEDS: CYCLOBENZAPRINE 5 MG TAB PO PRN (02:23)
[2023-07-13] MEDS: HYDROmorphone 0.5 MG/0.5 ML SYRINGE IVP PRN (05:59)
[2023-07-13] MEDS: methylPREDNISolone SOD SUCCI 125 MG/2 ML VIAL IV STA (06:00)
--- NOTE | 2023-07-13 07:53 | P.OP ---
Date of Procedure: 07/12/23 Preoperative Diagnosis: 1. L2-S1 spondylosis with stenosis 2. Grade I spondylolisthesis of L3 on L4 and L4 on L5 3. Lower extremity radiculopathy 4. s/p L5-S1 fusion 5. Bowel incontinence Postoperative Diagnosis: 1. L2-S1 spondylosis with stenosis 2. Grade I spondylolisthesis of L3 on L4 and L4 on L5 3. Lower extremity radiculopathy 4. s/p L5-S1 fusion 5. Bowel incontinence Procedure(s) Performed: 1. L3-4 POSTEROLATERAL AND INTERBODY FUSION 2. L4-5 POSTEROLATERAL AND INTERBODY FUSION 3. REVISION POSTEROLATERAL INSTRUMENTED FUSION L5-S1 4. BILATERAL OPEN SACROILLIAC JOINT FUSION 5. LAMINECTOMY, FACETECTOMY AND FORAMINOTOMY L3-4 AND L4-5 6. INSTRUMENTATION L3-PELVIS 7. ATTACHMENT OF CAUDAL END OF CONSTRUCT TO PELVIS 8. INSERTION OF BIOMECHANICAL DEVICE, CAGE, L3-4 AND L4-5 9. REMOVAL OF HARDWARE L5-S1 10. EXPLORATION OF FUSION L5-S1 11. USE OF [employer] NAVIGATION FOR SCREW PLACEMENT USE OF [facility] CPTMOD 22 THIS CASE TOOK 75% LONGER THAN EXPECTED DUE TO CORMORBID CONDITIONS, EXTENT OF LUMBAR DISEASE, REVISION CASE, AND HIGH TECHNICALITY OF THE CASE. EXPECTED CODES: 41161, 90608, 09045, 41363/50, 02857, 75488, 78550, 18805, 10804(x2), 70821, 03546, 82448 Implants: AYUSH EVEREST RODS AND SCREWS GLOBUS SABLE CAGES x2 10MM 7-14 8 DEG MAGNATOS, AUTOGRAFT, ALLOGRAFT, IFACTOR Anesthesia: TEXA Surgeon: Brannon San [employer] Area Supervisor #1: Mariia Patel (WAS PRESENT AND ASSISTED WITH ALL ASPECTS OF THE CASE FROM POSITION TO CLOSURE) Estimated Blood Loss (ml): 600 IV fluids (ml): 2,500 Urine output (ml): 450 Pathology: none sent Condition: stable Disposition: PACU Indications for Procedure: Ms. Meza is presenting for evaluation of low back and bilateral lower extremity pain, bilateral lower extremity numbness and tingling. It was my pleasure to have seen and examined Ms. Meza. In our visit today we have had a chance to go over subjective complaints, physical examination findings and treatments including the natural course history without intervention and various interventional options. The patients imaging demonstrates: XRay Lumbar Multiview (AP, Lateral, Flexion, Extension) with AP pelvis; 5 views taken at [facility] on 09/30/22: - Reviewed with the patient today. Severe multilevel spondylitic changes with preserved alignment. Patient does have postsurgical changes L5-S1. Multilevel diminished disc height. Adjacent segment disease present L3-L4, L4-L5 with bilateral foraminal stenosis. Grade 1 anterolisthesis L4 onto L5. No acute osseous abnormalities. CT [facility]: - Reviewed with the patient today. There are severe degenerative and spondylotic changes noted with ASD at L3-4 and L4-5 above her previous L5-S1 fusion. There are vacuum discs at these levels with Grade I spondylolisthesis, unstable at L4- 5 as well as L3-4. There is flattened LL to around 10 deg with PI around 45 deg. There is stenosis related to these findings due to osteophytes, facet arthrosis, overgrowth, ligamental hypertrophy all causing central and foraminal stenosis. No fracture. no lesions noted. On physical exam, Ms. Meza demonstrates: A continued sharp, burning pain throughout the low back that radiates down into the bilateral lower extremities. She states her right lower extremity pain is much more severe than the left at this time. The patient notes intermittent right groin pain. She states that her lower extremity pain is associated with numbness and tingling, most severe throughout the bilateral foot. She states her symptoms worsen after prolonged sitting. She reports experiencing severe sleep disturbances related to her ongoing pain and associated symptoms. She notes an onset of bowel incontinence. I discussed with the patient that if she experiences worsening bowel in continence or neurologic deficit then she should return to my office immediately or present to the emergency department. I have explained to the patient that as their condition progresses it will cause further neurological deficits and eventual paralysis. Based on the patients imaging, physical exam, and the rapid progression and disabling nature of their symptoms, at this time I recommend surgery in the form of a: L3-pelvis revision decompression and fusion with removal of hardware. I discussed the risk and benefits of this procedure at length with Ms. Meza. The patient agreed to considered pursuing the procedure above mentioned. Prior to surgery, she should follow up with her PCP (Cardio, ID, IM etc) for clearance. Questions were invited and answered, and the patient wishes to proceed as outlined below. Currently, I am recommendin.L3-pelvis revision decompression and fusion with removal of hardware I SPOKE WITH THE PATIENT AGAIN IN PRE OP TODAY SHE WENT TO ED YESTERDAY FOR FEAR OF BLOODY STOOLS. SHE STATES A HISTORY OF INTERNAL HEMRRHOIDS. SHE STATES SHE SEEMED TO HAVE A BLOOD TINGED STOOL. SHE ALSO STATES SHE ATE A LOT OF BEATS RECENTLY. SHE WAS CHECKED COMPLETELY IN THE ED AND THERE WAS NO SEVERE SIGNS OR SYMPTOMS. HER STOOL OCCULT BLOOD WAS NEG. HER HGB WAS 13. SHE HAS NO OTHER SX. TODAY IN PRE OP SHE FEELS WELL AND HAS NOT HAD A STOOL SINCE YESTERDAY, HOWEVER NO BLOODY DISCHARGES OR OTHER ISSUES. WE DISCUSSED RISKS AND BENEFITS OF HER SITUATION AND SHE HAS ELECTED TO PROCEED WITH SURGERY. I HAVE DISCUSSED THE CASE WITH ANESTHESIA WELL THE PATIENT AND I FEEL IT IS SAFE TO PROCEED WITH HER UNDERSTANDING OF THE RISKS INVOLVED. SHE DOES AND IS WILLING TO ASSUME THESE RISKS. SHE IS WILLING TO PROCEED. Description of Procedure: L3-PELVIS revision decompression fusion open The patient was seen and examined in the preoperative area. All preoperative protocols were followed. Informed consent was obtained, risks and benefits of the procedure were discussed at length. Risks including bleeding infection damage to the surrounding tissue and risk of re-operation were discussed with the patient. Risk of anesthesia up to and including was discussed with the patient. These are outlined in the risk review. They were willing to accept these risks and all the risks of surgery. The patient was given a weight-based dose of antibiotics in the form of 2 g Ancef. The patient was seen and evaluated by the anesthesia team who deemed them fit for surgery. The site was marked, the patient was willing to proceed with the procedure. The patient was transferred to the operative suite by the Department of anesthesia. They were then drifted off to sleep by the department anesthesia and GETA was performed. The patient tolerated this well. Gomez catheter was placed by nursing staff, a-traumatically. Once confirmation of lines and ventilation the patient was transferred to a prone Derrick table very carefully. All bony prominences including wrists, elbows, axilla, chest, hips, and thighs, and feet were padded very well. Special attention was paid to the genitalia, and these were padded accordingly. SCDs were placed on bilateral lower extremities and were connected. Arms were well padded and placed on arm boards up and out in the 90/90 position. Once in position, again we confirmed good ventilation capabilities and that lines were running appropriately. The patients Lumbar spine was then exposed. 1010s were placed outlining the incision site. Standard alcohol was used to clean the incision site and allowed to dry. C-arm was used to needle localize the pedicles at L3-5 and bio-jessica the patient and confirm level for incision which was marked with a skin marker. Operative briefing was performed with all teams and everyone in agreement to proceed. The patient was then prepped and draped in a normal sterile fashion. Timeout was then performed, and all parties agreed with the procedure to be performed. Midline skin incision was made over the previously bio-marked area and dissection taken down over the SP of L3-S1 and Pelvis. L3-5 was taken out over facet joints and TPs and a penfield 4 used to jessica the L4 pedicle. Lateral image used to confirm levels. Once confirmed, screws were removed from L5-S1 b/l along with rods. The L5 screws were loose b/l and when removed there was still motion at this segment. The fusion was explored and there was minimal bone formation posteriorly. We then proceeded to place screws b/l at pedicles from L3-S1 and Pelvis using [employer] navigation technique. Tracker was placed on SP of L2 and 3D Zhiem spin registered. Once confirmed to be accurate navigated Sequim was used to create a pilot highway patrol hole, followed by navigated awl tap then a ball tip feeler to confirm within the pedicles. Navigated Screw city driver was then used to place a measured screw. Once screws were placed they were confirmed to be in good position using AP and Lateral fluoroscopy. B/L S2AI pelvic screws were placed in a similar fasion across the SIJ for pelvic stabilization and SIJ fusion. The SIJ was decorticated with jayla and the screws placed across the SIJ. Judet Views confirmed their placement. The wound was then irrigated. Screws were tested and all tested above 20 mA. We then proceeded to decompression and cage placement. Attention was then turned to inter-body fusion at L4-5. Bilateral laminectomy, complete facetectomy and foraminotomy performed at L4-5using high speed jayla and Kerrison rongure. The ligamentum was removed and dural sac decompressed. Exiting and traversing roots visualized and decompressed. Neural elements were then protected, and disc space accessed with an osteotome. Sequential shaving then done under lateral imaging and complete discectomy performed using emma, pituitary and curette. Once good bleeding endplates accomplished and good height islam with trials, a combination of autograft, allograft and synthetic placed anterior in the disc space. The cage was then selected and impacted into place under lateral imaging. The cage was then expanded restoring height, lordosis and alignment. The cage was backfilled with bone graft through a funnel. The drilling engineer removed and the area inspected. Good cage placement, stable cage and no injuries. Area was irrigated copiously, and meticulous hemostasis achieved. The wound was irrigated and we proceeded to the L3-4 interspace. Attention was then turned to inter-body fusion at L3-4. Bilateral laminectomy, complete facetectomy and foraminotomy performed at L3-4 using high speed jayla and Kerrison rongure. The ligamentum was removed and dural sac decompressed. Exiting and traversing roots visualized and decompressed. Neural elements were then protected, and disc space accessed with an osteotome. Sequential shaving then done under lateral imaging and complete discectomy performed using emma, pituitary and curette. Once good bleeding endplates accomplished and good height islam with trials, a combination of autograft, allograft and synthetic placed anterior in the disc space. The cage was then selected and impacted into place under lateral imaging. The cage was then expanded restoring height, lordosis and alignment. The cage was backfilled with bone graft through a funnel. The drilling engineer removed and the area inspected. Good cage placement, stable cage and no injuries. Area was irrigated copiously, and meticulous hemostasis achieved. Rods were then sized and selected and placed into pelvic screws b/l. Set screws locked these in place and then sequentially reduced into L5-L3 b/l for reduction of listhesis as well as lordosis islam and height. This was accomplished. Set screws were then all placed and final tightened. A cross link was selected and placed and final tightened. TPs were then decorticated with high speed jayla. The wound was the irrigated with 3L acne irrigation, 3L gentamicin irrigation and 3L NSS. Surgical was placed over the dura. Autograft and MagnatOs then placed in the posteriolateral gutters and impacted into place. Autograft and allograft were placed in the b/l SIJ for fusion after further decortication. Deep drain placed and secured to the skin. Pt is allergic to Vancomycin and so no powder was placed in the wound bed. Final images confirmed good placement of hardware and good reduction of listhesis as well as islam of height and lordosis. Facia was then closed with #1 PDS. Deep subq closed with 0 Vicryl. Superficial subq closed with 2-0 Vicryl and skin with mariana. Wound edges approximated very well. Wound was then cleaned with alcohol and dried. Wounds dressed with Optifoam dressings. The patient was then transferred off the table back to their hospital bed a- traumatically. Drain continued to hold suction. They were extubated by the department of anesthesia. They were then transferred to PACU in stable condition having tolerated the procedure with no complications.
[2023-07-13] MEDS: SENNOSIDES-DOCUSATE SODIUM 1 EACH TAB PO SCH (08:07)
[2023-07-13] MEDS: SERTRALINE 100 MG TAB PO SCH (08:07)
[2023-07-13] MEDS: ASPIRIN 325 MG TAB PO SCH (08:07)
[2023-07-13] MEDS: FOLIC ACID 1 MG TAB PO SCH (08:08)
[2023-07-13] MEDS: POTASSIUM CHLORIDE ER 20 MEQ TAB.ER PO SCH (08:08)
[2023-07-13] MEDS: FLUDROCORTISONE 0.1 MG TAB PO SCH (08:09)
[2023-07-13] MEDS: BUMETANIDE 1 MG TAB PO SCH (08:09)
[2023-07-13 08:16] LABS: Basophils % (A) 0 %; Eosinophils # (A) 0.1 k/uL (0-0.7); Eosinophils % (A) 1 %; HCT 29.1 % (34.0-46.0); Lymphocytes # (A) 0.7 k/uL (1.0-4.8); Lymphocytes % (A) 8 %; MCH 28.1 pg (25.0-35.0); MCHC 32.9 g/dL (31.0-37.0); MCV 85.5 fL (80.0-100.0); Mean Platelet Volume 9.7; Monocytes # (A) 0.5 k/uL (0-1.0); Monocytes % (A) 6 %; Neutrophils # (A) 6.8 k/uL (1.3-7.7); Neutrophils % (A) 83 %; Platelet Count 169 k/uL (150-450); RDW 15.3 % (11.5-15.5); WBC 8.1 k/uL (3.8-10.6)
[2023-07-13 08:34] LABS: HGB 9.6 gm/dL (11.4-16.0)
[2023-07-13 09:15] LABS: African American GFR (CKD) 59 (>60 ml/min/1.73 sqM); Anion Gap 7 mmol/L; Blood Urea Nitrogen 25 mg/dL (7-17); Calcium 7.7 mg/dL (8.4-10.2); Carbon Dioxide 25 mmol/L (22-30); Chloride 104 mmol/L (98-107); Glucose 109 mg/dL (74-99); Non-African American GFR(CKD) 51 (>60 ml/min/1.73 sqM); Sodium 136 mmol/L (137-145)
[2023-07-13 09:16] LABS: Potassium 3.6 mmol/L (3.5-5.1)
--- NOTE | 2023-07-13 09:58 | P.PN ---
Subjective Progress Note Date: 07/13/23 Principal diagnosis: 1. L2-S1 spondylosis with stenosis 2. Grade I spondylolisthesis of L3 on L4 and L4 on L5 3. Lower extremity radiculopathy 4. s/p L5-S1 fusion 5. Bowel incontinence Patient seen and examined this morning. Patient is resting in bed. Patient has complained of moderate low back pain. Pain medication was given at discretion due to low blood pressures. Medications have been adjusted. Discussed with patient to utilize oral pain medication for pain management and to only use IV if needed for breakthrough pain. Encouraged patient to work with physical therapy today. Prescription for LSO brace has been placed in patient chart. Surgical incision to the lumbar spine, dressing is intact with Hemovac present. Patient states she has not been up since procedure. Maki catheter to be discontinued this morning. Encouraged patient to use incentive spirometer. No acute concerns. Objective - Vital Signs Vital signs: Vital Signs Temp 98.7 F 07/13/23 07:10 Pulse 84 07/13/23 08:15 Resp 18 07/13/23 07:10 BP 98/56 07/13/23 07:10 Pulse Ox 98 07/13/23 08:06 FiO2 Intake & Output 07/12/23 07/13/23 07/13/23 18:59 06:59 18:59 Intake Total 2750 Output Total 1450 110 Balance 1300 -110 Weight 73.2 kg Intake: IV 2750 Output: Drainage 110 Lower Back 110 Urine 850 Estimated Blood Loss 600 Other: Voiding Method Indwelling Catheter Indwelling Catheter - Exam Physical Examination General: The patient is awake and alert, in no acute distress Skin: Skin is warm and dry with no obvious rashes or lesions. Surgical incision to the lumbar spine, dressing is intact with Hemovac present. Eye: Pupils are equal, round and reactive to light, extra-ocular movements are intact; there is normal conjunctiva bilaterally. Neck: The neck is supple, there is no tenderness and ROM intact. Cardiovascular: There is a regular rate and rhythm. No murmur, rub or gallop is appreciated. Respiratory: Lungs are clear to auscultation, respirations are non-labored, breath sounds are equal. Gastrointestinal: Soft, non-distended, non-tender abdomen. Back: There is no tenderness to palpation in the midline, paralumbar, parathoracic or buttocks region. There is no obvious deformity . Musculoskeletal: ROM limited secondary to pain and stiffness from surgical procedure. Muscle strength in all major muscle groups of bilateral upper extremities 5/5, bilateral lower extremities 4/5. Neurological: CN 2-12 intact. There are no obvious motor or sensory deficits. Movement and coordination equal and intact. Sensory exam to light touch intact C5-T1 and intact from L2-S1. Reflexes 2/4 in bilateral upper and lower extremities. Negative Hoffmans, babinski, and clonus signs. Psychiatric: Cooperative, appropriate mood & affect, normal judgment. - Labs CBC & Chem 7: 07/13/23 07:24 07/13/23 07:24 Labs: Abnormal Lab Results - Last 24 Hours (Table) 07/13/23 Range/Units 07:24 RBC 3.40 L (3.80-5.40) m/uL Hgb 9.6 L D (11.4-16.0) gm/dL Hct 29.1 L (34.0-46.0) % Lymphocytes # 0.7 L (1.0-4.8) k/uL Assessment and Plan Assessment: Post op Day 1: 1. L2-S1 spondylosis with stenosis 2. Grade I spondylolisthesis of L3 on L4 and L4 on L5 3. Lower extremity radiculopathy 4. s/p L5-S1 fusion 5. Bowel incontinence Plan: -Appreciate communication consultant and team management. -Activity: Ambulate QID, OOB all meals, up and about, limit lifting bending twisting to less than 5 lbs. Use walker or cane if needed for stability. -Daily PT/OT, increase ambulation strength and balance. -Brace when up and about, not needed in bed or chair -Prescription for LSO brace has been placed in chart. -Pain control: Adequate at this time -Meds: reviewed -GI ppx: senna, Miralax -DC maki this morning. -DVT PPX: OK to restart Heparin tonight -Hygiene: Shower today. Maintain dressing clean and dry. Meticulous cleaning after BMs away from the incision site -Drains: Maintain for now. Continue to monitor and record output q shift. -Encourage IS 10x/hr -Dispo: Clinically pending *I reviewed and discussed this case with my attending Dr. San, whom has reviewed this chart and films and is in agreement with assessment and plan of care as outlined above. I have personally seen and examined the patient, performed the documentation and the assessment and plan as written. Number of minutes spent on the visit: 20m.
[2023-07-13] MEDS: CYCLOBENZAPRINE 5 MG TAB PO SCH (10:52)
[2023-07-13] MEDS: oxyCODONE-APAP 10-325MG 1 EACH TAB PO PRN (10:52)
[2023-07-13] MEDS: hydrOXYzine pamoate 25 MG CAP PO PRN (10:52)
[2023-07-13] MEDS: SODIUM CHLORIDE 0.9% 1,000 ML IV SCH (10:55)
[2023-07-13] MEDS: diphenhydrAMINE 50 MG/ML 1 ML VIAL IVP PRN (16:06)
--- NOTE | 2023-07-13 20:52 | CONS ---
CONSULTATION HISTORY OF PRESENT ILLNESS: A 58-year-old white female, status post cage placement in her lumbar spine. She has had low blood pressure overnight. We gave her IV fluid boluses. We gave her Solu- Medrol dose for possible adrenal insufficiency. We kept her IV go on at 125 all last night due to hypotension. Blood pressure medications were held for systolic blood pressure under 100. PHYSICAL EXAMINATION: GENERAL: She is alert and oriented x3. CARDIOVASCULAR: S1, S2. LUNGS: Transmitted upper sounds. HEMATOLOGY: Negative Homans. PSYCH: Poor mood and affect. She apparently had 1 pseudoseizure overnight, saturating 100% on 3 L. Blood pressure is 102/60, temp 98 to 97, respiratory rate 18 to 20, pulse 60s to 70s. Status post lumbar laminectomy, Dr. San. She had L2-S1 spondylosis, stenosis, grade 1 spondylolisthesis, lower extremity radiculopathy, status post fusion, bowel incontinence. Prognosis guarded. History of lupus, COPD, asthma. Follow up in the next 24 to 48 hours. Continue with fluids. Monitor blood pressures. Home medications have been reordered. Bridging treatments have been reordered. Home Cortef levels have been ordered. MMODL / IJN: [id number] /
--- NOTE | 2023-07-13 20:58 | PN ---
PROGRESS NOTE SUBJECTIVE: A 58-year-old white female, status post lumbar fusion, lower extremity radiculopathy, status post L5-S1 fusion, bowel incontinence. She had a pseudoseizure last night. She has been sleeping fairly good today. She has LSO brace. Gomez catheter discontinued. Incentive spirometry and breathing treatments have been ordered. Home medications have been ordered. Blood pressure has been running low all day and all night. Fluid boluses have been given. midodrine has been restarted. We will have to cut back on blood pressure medications as the patient appears to be improving. OBJECTIVE: CARDIOVASCULAR: S1, S2. LUNGS: Clear. GI: Soft. HEMATOLOGY: Negative Homans. PSYCH: Fair mood and affect. PLAN: Continue current treatment. Wean blood pressure medications as tolerated. Ordered midodrine. Prognosis guarded. Please see further orders. MMODL / IJN: [id number] /
[2023-07-14] MEDS: DICLOFENAC SODIUM GEL 50 GM TUBE TOPICAL PRN (03:21)
[2023-07-14 07:34] LABS: HCT 23.6 % (34.0-46.0); MCH 28.2 pg (25.0-35.0); MCHC 32.5 g/dL (31.0-37.0); MCV 86.7 fL (80.0-100.0); Mean Platelet Volume 8.5; Platelet Count 164 k/uL (150-450); RBC 2.72 m/uL (3.80-5.40); RDW 15.5 % (11.5-15.5); WBC 6.9 k/uL (3.8-10.6)
--- NOTE | 2023-07-14 07:49 | P.PN ---
Subjective Progress Note Date: 07/14/23 Principal diagnosis: 1. L2-S1 spondylosis with stenosis 2. Grade I spondylolisthesis of L3 on L4 and L4 on L5 3. Lower extremity radiculopathy 4. s/p L5-S1 fusion 5. Bowel incontinence Patient seen and examined this morning. Patient is resting in bed. Patient has complained of moderate bilateral hip pain, she states her pain is managed on current regimen. Surgical incision to the lumbar spine, dressing is intact with Hemovac present. 100ml output overnight. Patient reports that she has been ambulating with an room and hallways, tolerating activity well. Patient has been urinating without any difficulty. She states she is passing gas, no bowel movement. Encouraged patient to use incentive spirometer. No acute conc erns. Objective - Vital Signs Vital signs: Vital Signs Temp 98.1 F 07/14/23 00:45 Pulse 69 07/14/23 00:45 Resp 14 07/14/23 00:45 BP 66/34 07/14/23 00:45 Pulse Ox 90 L 07/14/23 00:45 FiO2 Intake & Output 07/13/23 07/14/23 07/14/23 18:59 06:59 18:59 Output Total 1500 100 Balance -1500 -100 Output: Drainage 100 100 Lower Back 100 100 Urine 1400 Other: Voiding Method Indwelling Catheter Toilet # Voids 2 2 - Exam Physical Examination General: The patient is awake and alert, in no acute distress Skin: Skin is warm and dry with no obvious rashes or lesions. Surgical inc ision to the lumbar spine, dressing is intact with Hemovac present. Eye: Pupils are equal, round and reactive to light, extra-ocular movements are intact; there is normal conjunctiva bilaterally. Neck: The neck is supple, there is no tenderness and ROM intact. Cardiovascular: There is a regular rate and rhythm. No murmur, rub or gallop is appreciated. Respiratory: Lungs are clear to auscultation, respirations are non-labored, breath sounds are equal. Gastrointestinal: Soft, non-distended, non-tender abdomen. Back: There is no tenderness to palpation in the midline, paralumbar, parathoracic or buttocks region. There is no obvious deformity . Musculoskeletal: ROM limited secondary to pain and stiffness from surgical procedure. Muscle strength in all major muscle groups of bilateral upper extremities 5/5, bilateral lower extremities 4/5. Neurological: CN 2-12 intact. There are no obvious motor or sensory deficits. Movement and coordination equal and intact. Sensory exam to light touch intact C5-T1 and intact from L2-S1. Reflexes 2/4 in bilateral upper and lower extremi ties. Negative Hoffmans, babinski, and clonus signs. Psychiatric: Cooperative, appropriate mood & affect, normal judgment. - Labs CBC & Chem 7: 07/13/23 07:24 07/13/23 07:24 Labs: Abnormal Lab Results - Last 24 Hours (Table) 07/13/23 07/13/23 Range/Units 07:24 07:24 RBC 3.40 L (3.80-5.40) m/uL Hgb 9.6 L D (11.4-16.0) gm/dL Hct 29.1 L (34.0-46.0) % Lymphocytes # 0.7 L (1.0-4.8) k/uL Sodium 136 L (137-145) mmol/L BUN 25 H (7-17) mg/dL Creatinine 1.17 H (0.52-1.04) mg/dL Glucose 109 H (74-99) mg/dL Calcium 7.7 L (8.4-10.2) mg/dL Assessment and Plan Assessment: Post op Day 2: 1. L2-S1 spondylosis with stenosis 2. Grade I spondylolisthesis of L3 on L4 and L4 on L5 3. Lower extremity radiculopathy 4. s/p L5-S1 fusion 5. Bowel incontinence Plan: -Appreciate virtualization consultant and team management. -Activity: Ambulate QID, OOB all meals, up and about, limit lifting bending twisting to less than 5 lbs. Use walker or cane if needed for stability. -Daily PT/OT, increase ambulation strength and balance. -Brace when up and about, not needed in bed or chair -Pain control: Adequate at this time -Meds: reviewed -GI ppx: senna, Miralax -DVT PPX: Eliquis, aspirin -Hygiene: Shower today. Maintain dressing clean and dry. Meticulous cleaning after BMs away from the incision site -Drains: Maintain for now. Continue to monitor and record output q shift. -Encourage IS 10x/hr -Dispo: Anticipating discharge home tomorrow with home care *I reviewed and discussed this case with my attending Dr. San, whom has reviewed this chart and films and is in agreement with assessment and plan of care as outlined above. I have personally seen and examined the patient, performed the documentation and the assessment and plan as written. Number of minutes spent on the visit: 20m.
[2023-07-14 08:01] LABS: HGB 7.7 gm/dL (11.4-16.0)
[2023-07-14 08:18] LABS: Anion Gap 7 mmol/L; Blood Urea Nitrogen 22 mg/dL (7-17); Carbon Dioxide 26 mmol/L (22-30); Chloride 105 mmol/L (98-107); Glucose 100 mg/dL (74-99); Potassium 3.1 mmol/L (3.5-5.1); Sodium 138 mmol/L (137-145)
[2023-07-14 08:19] LABS: African American GFR (CKD) 63 (>60 ml/min/1.73 sqM); Calcium 7.8 mg/dL (8.4-10.2); Non-African American GFR(CKD) 55 (>60 ml/min/1.73 sqM)
[2023-07-14] MEDS ORDERED: Potassium Replacement Protocol 1 EACH MISC MISCELLANE PRN (08:22)
[2023-07-14] MEDS: FAMOTIDINE 20 MG TAB PO SCH (08:22)
[2023-07-14] MEDS: BUMETANIDE 1 MG TAB PO SCH (08:23)
[2023-07-14] MEDS: POTASSIUM CHLORIDE ER 20 MEQ TAB.ER PO SCH ×2 (09:42→21:41)
[2023-07-14] MEDS: HYDROmorphone 1 MG/ML 1 ML SYRINGE IVP PRN (14:08)
[2023-07-14] MEDS: diphenhydrAMINE 50 MG/ML 1 ML VIAL IVP STA (15:05)
[2023-07-14] MEDS: HYDROmorphone 1 MG/ML 1 ML SYRINGE IVP STA (18:57)
[2023-07-14] MEDS: methylPREDNISolone SOD SUCCI 40 MG/ML 1 ML VIAL IV SCH (21:42)
[2023-07-14 21:51] LABS: HCT 29.4 % (34.0-46.0); Hypochromasia Slight; MCH 28.9 pg (25.0-35.0); MCHC 32.5 g/dL (31.0-37.0); Mean Platelet Volume 8.1; Platelet Count 152 k/uL (150-450); RDW 15.2 % (11.5-15.5); WBC 6.9 k/uL (3.8-10.6)
[2023-07-14 22:16] LABS: HGB 9.6 gm/dL (11.4-16.0)
[2023-07-15 01:14] VITALS: PULSE 70
[2023-07-15 07:58] VITALS: RESP 17; TEMP 98
--- NOTE | 2023-07-15 08:43 | P.PN ---
Subjective Progress Note Date: 07/15/23 Principal diagnosis: 1. L2-S1 spondylosis with stenosis 2. Grade I spondylolisthesis of L3 on L4 and L4 on L5 3. Lower extremity radiculopathy 4. s/p L5-S1 fusion 5. Bowel incontinence Patient seen and examined this morning. Patient is resting in bed. Patient has complained of moderate bilateral hip pain, she states her pain is managed on current regimen. Surgical incision to the lumbar spine, incision is well approximated with mariana intact. 50ml output overnight in hemovac, this has been removed and new surgical dressing applied. Patient reports that she has been ambulating with an room and hallways, tolerating activity well. Encouraged patient to use incentive spirometer. No acute concerns. Patient is cleared from Orthopedic standpoint at this time. No further recommendations and will be discharged today. Objective - Vital Signs Vital signs: Vital Signs Temp 98.0 F 07/15/23 07:40 Pulse 70 07/15/23 07:40 Resp 17 07/15/23 07:40 BP 148/74 07/15/23 07:40 Pulse Ox 94 L 07/15/23 07:40 FiO2 Intake & Output 07/14/23 07/15/23 07/15/23 18:59 06:59 18:59 Intake Total 310 480 Output Total 150 Balance 310 330 Intake: Oral 480 Blood Product 310 Rc As-1 Unit 310 [id number] Output: Drainage 150 Lower Back 150 Other: # Voids 3 3 - Exam Physical Examination General: The patient is awake and alert, in no acute distress Skin: Skin is warm and dry with no obvious rashes or lesions. Surgical incision to the lumbar spine, edges are well approximated with mariana intact. New dressing has been applied. Eye: Pupils are equal, round and reactive to light, extra-ocular movements are intact; there is normal conjunctiva bilaterally. Neck: The neck is supple, there is no tenderness and ROM intact. Cardiovascular: There is a regular rate and rhythm. No murmur, rub or gallop is appreciated. Respiratory: Lungs are clear to auscultation, respirations are non-labored, breath sounds are equal. Gastrointestinal: Soft, non-distended, non-tender abdomen. Back: There is no tenderness to palpation in the midline, paralumbar, parathoracic or buttocks region. There is no obvious deformity . Musculoskeletal: ROM limited secondary to pain and stiffness from surgical procedure. Muscle strength in all major muscle groups of bilateral upper extremities 5/5, bilateral lower extremities 4/5. Neurological: CN 2-12 intact. There are no obvious motor or sensory deficits. Movement and coordination equal and intact. Sensory exam to light touch intact C5-T1 and intact from L2-S1. Reflexes 2/4 in bilateral upper and lower extremities. Negative Hoffmans, babinski, and clonus signs. Psychiatric: Cooperative, appropriate mood & affect, normal judgment. - Labs CBC & Chem 7: 07/14/23 21:23 07/14/23 07:49 Labs: Abnormal Lab Results - Last 24 Hours (Table) 07/14/23 07/14/23 07/14/23 Range/Units 06:20 07:49 11:20 RBC 2.72 L (3.80-5.40) m/uL Hgb 7.7 L D (11.4-16.0) gm/dL Hct 23.6 L (34.0-46.0) % Potassium 3.1 L (3.5-5.1) mmol/L BUN 22 H (7-17) mg/dL Creatinine 1.11 H (0.52-1.04) mg/dL Glucose 100 H (74-99) mg/dL Calcium 7.8 L (8.4-10.2) mg/dL Crossmatch See Detail 07/14/23 Range/Units 21:23 RBC 3.30 L (3.80-5.40) m/uL Hgb 9.6 L D (11.4-16.0) gm/dL Hct 29.4 L (34.0-46.0) % Potassium (3.5-5.1) mmol/L BUN (7-17) mg/dL Creatinine (0.52-1.04) mg/dL Glucose (74-99) mg/dL Calcium (8.4-10.2) mg/dL Crossmatch Assessment and Plan Assessment: Post op Day 3: Revision L3-Pelvis decompression and fusion 1. L2-S1 spondylosis with stenosis 2. Grade I spondylolisthesis of L3 on L4 and L4 on L5 3. Lower extremity radiculopathy 4. s/p L5-S1 fusion 5. Bowel incontinence Plan: -Appreciate furniture sales consultant and team management. -Activity: Ambulate QID, OOB all meals, up and about, limit lifting bending twisting to less than 5 lbs. Use walker or cane if needed for stability. -Daily PT/OT, increase ambulation strength and balance. -Brace when up and about, not needed in bed or chair -Pain control: Adequate at this time -Meds: reviewed -GI ppx: senna, Miralax -DVT PPX: Aspirin -Hygiene: Shower today. Maintain dressing clean and dry. Meticulous cleaning after BMs away from the incision site -Encourage IS 10x/hr -Dispo: Discharge home today with home care *I reviewed and discussed this case with my attending Dr. San, whom has reviewed this chart and films and is in agreement with assessment and plan of care as outlined above. I have personally seen and examined the patient, performed the documentation and the assessment and plan as written. Number of minutes spent on the visit: 20m.
[2023-07-15 08:54] LABS: African American GFR (CKD) 65 (>60 ml/min/1.73 sqM); Anion Gap 9 mmol/L; Blood Urea Nitrogen 19 mg/dL (7-17); Calcium 8.7 mg/dL (8.4-10.2); Carbon Dioxide 25 mmol/L (22-30); Chloride 103 mmol/L (98-107); Glucose 121 mg/dL (74-99); Non-African American GFR(CKD) 56 (>60 ml/min/1.73 sqM); Potassium 4.3 mmol/L (3.5-5.1); Sodium 137 mmol/L (137-145)
[2023-07-15 09:47] VITALS: BP 133/61
--- NOTE | 2023-07-15 09:53 | P.DS ---
Providers Date of admission: 07/12/23 08:19 Expected date of discharge: 07/15/23 Attending physician: Brannon San DO Consults: 07/12/23 14:58 Consult Physician Routine Consulting Provider: Franklin Hassan Reason/Comments: Medical Management Do you want consulting provider notified?: Yes Primary care physician: [facility] Course: Hospital Course: The patient was evaluated preoperatively and found to have the diagnosis of lumbar spondylolisthesis. They underwent appropriate preoperative care and were willing to undergo the intended procedure. They underwent a successful revision [id number] decompression and fusion, were recovered appropriately and sent to the floor. While on the floor they worked with physical therapy, occupational therapy and nursing to enhance their recovery experience. Their pain was well controlled through their stay and they were started on appropriate medications, DVT ppx modalities, activity and dietary needs. Daily labs were monitored closely, and transfusions were only used when necessary. Medicine as well as other consulting services have made their input and have helped with our team approach and multidisciplinary care. PT milestones have been met and passed and they have made the recommendation of home with home care for this patient and treating providers agree with this care path. The patient will be discharged home with appropriate medications, instructions and follow-up information and in stable condition. Patient Condition at Discharge: Stable Plan - Discharge Summary Discharge Rx Participant: No New Discharge Prescriptions: New metroNIDAZOLE [Flagyl] 500 mg PO TID #28 tab Orphenadrine [Norflex] 100 mg PO Q12H PRN #40 tab PRN Reason: Muscle Spasm Gabapentin 600 mg PO TID #90 tab oxyCODONE-APAP 10-325MG [Percocet 10-325 mg] 1 tab PO Q6HR PRN #42 tab PRN Reason: Pain Sennosides/Docusate Sodium [Senna Plus 8.6-50 mg Tablet] 1 each PO DAILY PRN #20 tablet PRN Reason: Constipation No Action busPIRone HCl [Buspar] 5 mg PO BID Bumetanide [BUMEX] 2 mg PO DAILY Ondansetron [Zofran] 4 mg PO Q8H PRN PRN Reason: Nausea Famotidine 20 mg PO BID Metoprolol Succinate (ER) [Toprol XL] 50 mg PO HS Cyclobenzaprine [Flexeril] 5 mg PO TID PRN #15 tablet PRN Reason: Muscle Spasm rOPINIRole HCL [Requip] 2 mg PO HS Codeine Phosphate/Guaifenesin [Codeine Phosphate/Guaifenesin 10-100 mg/5 ml] 5 - 10 ml PO Q4-6H PRN #473 ml PRN Reason: Cough Orphenadrine Citrate [Orphenadrine Citrate ER] 100 mg PO DAILY Folic Acid 0.5 mg PO DAILY tab Enoxaparin [Lovenox] 40 mg SQ DAILY Hydrocodone/Acetaminophen [Hydrocodone/Acetaminophen 7.5-325] 1 tab PO BID diphenhydrAMINE [Benadryl] 50 mg IM Q6HR PRN PRN Reason: Allergy Symptoms Unk Steroids 1 tab PO DIRECTED Sertraline [Zoloft] 200 mg PO DAILY Gabapentin 600 mg PO QID Atorvastatin [Lipitor] 40 mg PO HS Apixaban [Eliquis] 5 mg PO BID Fludrocortisone [Florinef] 0.1 mg PO DAILY Potassium Chloride ER [K-Dur 20] 20 meq PO DAILY Ipratropium Nebulized [Atrovent Nebulized 0.2 MG/ML] 0.5 mg INHALATION RT-QID PRN PRN Reason: Shortness Of Breath Ipratropium Nebulized [Atrovent Nebulized 0.2 MG/ML] 0.5 mg INHALATION Q6HR #300 ml Aspirin 325 mg PO DAILY tab Zonisamide [Zonegran] 100 mg PO Q12HR Discharge Medication List Atorvastatin [Lipitor] 40 mg PO HS 09/24/21 [History] Gabapentin 600 mg PO QID 09/24/21 [History] Sertraline [Zoloft] 200 mg PO DAILY 09/24/21 [History] Apixaban [Eliquis] 5 mg PO BID 05/29/22 [History] busPIRone HCl [Buspar] 5 mg PO BID 06/11/22 [History] Bumetanide [BUMEX] 2 mg PO DAILY 06/24/22 [History] Fludrocortisone [Florinef] 0.1 mg PO DAILY 09/20/22 [History] Ondansetron [Zofran] 4 mg PO Q8H PRN 11/29/22 [History] Ipratropium Nebulized [Atrovent Nebulized 0.2 MG/ML] 0.5 mg INHALATION RT-QID PRN 01/12/23 [History] Potassium Chloride ER [K-Dur 20] 20 meq PO DAILY 01/12/23 [History] Famotidine 20 mg PO BID 02/16/23 [History] Metoprolol Succinate (ER) [Toprol XL] 50 mg PO HS 02/16/23 [History] Cyclobenzaprine [Flexeril] 5 mg PO TID PRN #15 tablet 03/02/23 [Rx] rOPINIRole HCL [Requip] 2 mg PO HS 04/28/23 [History] Codeine Phosphate/Guaifenesin [Codeine Phosphate/Guaifenesin 10-100 mg/5 ml] 5 - 10 ml PO Q4-6H PRN #473 ml 06/13/23 [Rx] Ipratropium Nebulized [Atrovent Nebulized 0.2 MG/ML] 0.5 mg INHALATION Q6HR #300 ml 06/13/23 [Rx] Orphenadrine Citrate [Orphenadrine Citrate ER] 100 mg PO DAILY 06/19/23 [History] Aspirin 325 mg PO DAILY tab 06/22/23 [Rx] Folic Acid 0.5 mg PO DAILY tab 06/22/23 [Rx] Enoxaparin [Lovenox] 40 mg SQ DAILY 07/07/23 [History] Hydrocodone/Acetaminophen [Hydrocodone/Acetaminophen 7.5-325] 1 tab PO BID 07/07/23 [History] Unk Steroids 1 tab PO DIRECTED 07/07/23 [History] Zonisamide [Zonegran] 100 mg PO Q12HR 07/07/23 [History] diphenhydrAMINE [Benadryl] 50 mg IM Q6HR PRN 07/07/23 [History] Gabapentin 600 mg PO TID #90 tab 07/15/23 [Rx] Orphenadrine [Norflex] 100 mg PO Q12H PRN #40 tab 07/15/23 [Rx] Sennosides/Docusate Sodium [Senna Plus 8.6-50 mg Tablet] 1 each PO DAILY PRN #20 tablet 07/15/23 [Rx] metroNIDAZOLE [Flagyl] 500 mg PO TID #28 tab 07/15/23 [Rx] oxyCODONE-APAP 10-325MG [Percocet 10-325 mg] 1 tab PO Q6HR PRN #42 tab 07/15/23 [Rx] Follow up Appointment(s)/Referral(s): Franklin Hassan MD [Primary Care Provider] - 1 Week Brannon San DO [Doctor of Osteopathic Medicine] - 10 Days Activity/Diet/Wound Care/Special Instructions: Spine Discharge and Recovery Instructions Date of Surgery: 07/12/2023 Diagnosis: Lumbar spondylolisthesis Procedure: [id number] revision decompression and fusion Medications: See medication list All medication refills should be obtained through your primary care doctor or your clinic spine surgeon. Please discuss prescription refills at your follow up appointment. Do not call the hospital for medication refills. Activity: Encourage ambulation with assist of walker, Up and about 6-8x daily PT/OT daily work on balance, strength and mobility Up in chair with all meals Shower daily Brace: Use brace when up and about, do not wear in bed or shower Dressing: Leave your dressing in place for a total of 3 days post operatively. Then you may remove your dressing and leave open to air. Keep the area clean and if not able to keep area clean, then cover with sterile gauze and tape. Showering: You may shower 3 days after your procedure allowing soap and water to run over incision. Do not scrub. Do not soak. Blot dry. Follow up: Please confirm a follow up appointment with your surgeon 2 weeks post operatively. Please make an appointment to follow up with your PCP in 1-2 weeks after surgery for evaluation 3 phase, 3-week plan POST OP WEEKS 1-3 1. Lifting/carrying/pushing/pulling limited to less than 5 pounds. 2. Do not sit for longer than 15 minutes at one time. Get up and walk around. Prolonged sitting is NOT advised. If you lay down, see if you can tolerate laying down on you front (belly side) 3. Walk for periods of 15 minutes = 1 mile but no longer; do it multiple times times each day. 4. Ice your low back after activity. POST OP WEEKS 3-6 1. Lifting limited to less than 20 pounds. 2. Do not sit for longer than 30 minutes at a time. Frequently change positions. Use a sit-to stand workstation or take frequent breaks from sitting if you have returned to work. 3. Walk for 30 minutes each day. If possible, do these three or more times a day POST OP WEEKS 6+ At your 6-week appointment we will give you a physical therapy referral to focus on a core stabilization and strengthening program. You should also work on leg & buttock strengthening, hamstring & quadriceps stretching, and continue a low impact aerobic activity program such as swimming, walking, or riding a stationary bicycle. During the initial 6 weeks after your surgery, you are at the highest risk of re-injuring your spine. You should generally avoid BLTs (bending, lifting and twisting combination motions) and follow the above guidelines to reduce the chance of reinjury. You can anticipate post op appointments in our office at approximately 3 weeks and 6 weeks after your surgery. INCISION CARE: If your incision is not draining you do NOT need to cover it with a dressing. Keep your incision clean, dry and intact. In most cases, we apply skin glue, mariana or sutures to the incision at the time of surgery. This will be like a crust or have the appearance of a scab and will fall off in time on its own. The stitches or mariana need to be removed at 3 weeks post op appointment. You may begin to shower 3 days after surgery (this allows the glue to moss well). However, please avoid scrubbing the incision site or peeling off any of the skin glue. This will ensure optimal healing of your incision. Also, during this time avoid soaking the incision area in water - this includes swimming pools, hot tubs or baths. No ointments, lotions or oils on the incision until your surgeon allows. Leave mariana, sutures or glue in place. Neurological dysfunction that comes on suddenly can also be a sign of a stroke. Below some common symptoms of a stroke are listed: B - balance difficulty such as sudden onset walking or leaning to one side - NEW E - eye problem such as sudden double vision or trouble seeing on one side - NEW F - Facial weakness or numbness on one side - NEW A - Arm or leg weakness or numbness on one side - NEW S - Slurred speech or difficulty with word finding - NEW T - Time is BRAIN! Call 911 as soon as you recognize these symptoms Diet: Consume a regular diet rich in vegetables and lean protein such as chicken or fish. You should consume in a ratio of approximately 20% fats|40% carbohydrates|40%protein. Vegetables, sweet potatoes, brown rice or quinoa are examples of good carbohydrates. Chips, white bread, cookies and sweets/sugar are examples of bad carbohydrates. Limit your bad carbs, go wild with good carbs. "Life's Simple 7" Guidelines as per [employer] These will help you reclaim your life after surgery and drop hammer operator helper in your recovery, keeping in mind your restrictions. (1) Get Active. Physical activity can help people lose weight, control high blood pressure and cholesterol, feel emotionally better, and sleep better. (2) Control Cholesterol. Avoid a diet high in saturated fat, trans fat, & cholesterol. Limit whole milk & cream, ice cream, butter, egg yolks, processed meats (like sausage and hot dogs), and fatty meats. Choose healthy foods that are low in saturated fat, trans fat and cholesterol which include: Fruits and vegetables, fiber rich grain products (like whole grain pasta and brown rice), lean meat such as chicken, fish, nuts, seeds, and legumes. (3) Eat Better. Eat small portions. Shop at the grocery with a list and do not stray from it. Tips for a healthy diet include: Limit sodium intake to less than 1500mg daily, avoid prepackaged, processed, and fast foods, choose a diet rich in fruits, vegetables, and whole grain, high fiber foods, and limit saturated & cholesterol in your diet. (4) Manage Blood Pressure. If you have high blood pressure, you should have a cuff at home so that you can check your blood pressure regularly. Be sure you have a good cuff. An arm one is generally better than a wrist one. Bring the cuff to a doctor's appointment to validate that the measurements that your cuff are taking are accurate. Take your blood pressure twice daily when you are sitting down and relaxing. Record the numbers in a log and bring this log with you to your doctors' appointments. (5) Lose Weight if your BMI is above 25. A healthy BMI is between 19-25. To calculate Your BMI, you may use a Standard BMI Calculator on the NIH BMI website: <www.nhlbi.nih.gov/guidelines/obesity/BMI/bmicalc.htm>. Weigh oneself daily. If you are overweight, set a goal to lose weight. A pound a week loss if needed is a good target. (6) Reduce Blood Sugar. Limit foods and liquids with "added sugars." (Added sugars include sucrose, fructose, glucose, maltose, dextrose, high fructose corn syrup, corn syrup, concentrated fruit juice and honey). (7) Stop Smoking. If you smoke, quitting smoking is one of the best things that you can do for your health. Smoking increases your risk of heart attack, stroke, and peripheral vascular disease, which is a build-up of plaque in your arteries. Please discard all the cigarettes and lighters in your house. Have a plan for what you will do when you have the urge to smoke. Direct and second- hand smoke shortens your life as well as the lives of your family, friends and others around you. For your health and the health of those around you, please consider quitting! Proper Bending Body Mechanics: Maintain a wide stance with one foot slightly in front of the other. Keep your back straight. Bend utilizing the strength in your hips and knees. Do not bend at the waist. Maintain the lifted object at your waist-level close to your body. Avoid lifting weight that causes immediately pain or pain anywhere in the body afterwards. Smoking/Nicotine If there was ever one thing that you could do to increase your overall health, decrease your risk of cardiovascular problems by about 39% the second you make the choice, it is to STOP SMOKING. Your body's most instant gratification is the second you stop smoking. We have all heard the studies, read the articles but it is true, smoking is extremely bad for your overall health, and moreover it is detrimental to your bone health. Nicotine, IN ANY FORM, kills bone cells, prevents your body from healing fractures, and significantly prolongs healing after surgery. In spine surgery specifically, it increases your risk of not healing your bones to create a fusion and increases your risk of having a revision surgery due to this up to 60%. I know it is hard. I know it feels impossible. But there are ways. Take control of your life. We are here to help you through it. And when you are ready, ask us and we can direct you to help if you desire. Use the START Plan to Quit Smoking (please visit the [employer]ner[employer].org website listed below for more information): S = Set a quit date. Choose a date within the next 2 weeks, so you have enough time to prepare without losing your motivation to quit. If you mainly smoke at work, quit on the weekend, so you have a few days to adjust to the change. T = Tell family, friends, and co-workers that you plan to quit. Let your friends and family in on your plan to quit smoking and tell them you need their support and encouragement to stop. Look for a quit meri who wants to stop smoking as well. You can help each other get through the rough times. A = Anticipate and plan for the challenges you'll face while quitting. Most people who begin smoking again do so within the first 3 months. You can help yourself make it through by preparing ahead for common challenges, such as nicotine withdrawal and cigarette cravings. R = Remove cigarettes and other tobacco products from your home, car, and work. Throw away all your cigarettes (no emergency pack!), lighters, ashtrays, and matches. Wash your clothes and freshen up anything that smells like smoke. Shampoo your car, clean your drapes and carpet, and steam your furniture. T = Talk to your doctor about getting help to quit. Your doctor can prescribe medication to help with withdrawal and suggest other alternatives. If you can't see a doctor, you can get many products over the counter at your local pharmacy or grocery store, including the nicotine patch, nicotine lozenges, and nicotine gum. Resources for Quitting Smoking: <https://www.[place].gov/documents/[facility]/Quit_Tobacco_Resources_for_patients_313 480_7.pdf> Supplementation: Take recommended dosages of Vitamin D and Calcium to help fortify your bones and help them to heal. See your health maintenance packet for dosages and recommended levels. DVT/VTE prophylaxis: You will be given compression stockings from the hospital. Wear these daily for the first two weeks after surgery. You may take them off at night. You may be prescribed a medication to help thin your blood. Take this as directed. If you are not prescribed this medication, early and frequent ambulation has been shown to be the best prophylaxis to deep vein thrombosis and sequelae related to this event. Discharge Disposition: HOME WITH HOME HEALTH SERVICES
[2023-07-15 10:25] LABS: Basophils # (A) 0.01 X 10*3/uL (0.00-0.10); Basophils % (A) 0.1 %; Eosinophils # (A) 0.01 X 10*3/uL (0.04-0.35); Eosinophils % (A) 0.1 %; HCT 29.5 % (37.2-46.3); HGB 9.4 g/dL (12.0-15.0); Lymphocytes # (A) 0.49 X 10*3/uL (0.90-5.00); Lymphocytes % (A) 5.9 %; MCH 27.6 pg (27.0-32.0); MCHC 31.9 g/dL (32.0-37.0); MCV 86.8 FL (80.0-97.0); Mean Platelet Volume 11.2 FL (9.5-12.2); Monocytes # (A) 0.43 X 10*3/uL (0.20-1.00); Monocytes % (A) 5.2 %; NRBC Per 100 WBC 0 X 10*3/uL (0.00-0.01); Neutrophils # (A) 7.36 X 10*3/uL (1.80-7.70); Neutrophils % (A) 88.3 %; Platelet Count 185 X 10*3/uL (140-440); RDW 14.9 % (11.5-14.5); WBC 8.33 X 10*3/uL (4.50-10.00)
[2023-07-15] MEDS: GABAPENTIN 300 MG CAP PO SCH (10:50)
[2023-07-15] MEDS: CYCLOBENZAPRINE 10 MG TAB PO SCH (10:50)
== END 2023-07-15 13:00 | disposition home health service (06) | DRG 455 ==
LOC: 2ORMAIN 08:19 → 4SSUR 15:08
PROVIDERS: ADMIT Orthopaedic Surgery; ATTEND Orthopaedic Surgery
PROC: 0SG1071 Fusion of 2 or more Lumbar Vertebral Joints with Autologous Tissue Substitute, Posterior Approach, Posterior Column, Open Approach (ICD-10-PCS; 2023-07-12)
PROC: 0SG804Z Fusion of Left Sacroiliac Joint with Internal Fixation Device, Open Approach (ICD-10-PCS; 2023-07-12)
PROC: 0SG704Z Fusion of Right Sacroiliac Joint with Internal Fixation Device, Open Approach (ICD-10-PCS; 2023-07-12)
PROC: 0ST20ZZ Resection of Lumbar Vertebral Disc, Open Approach (ICD-10-PCS; 2023-07-12)
PROC: 01NB0ZZ Release Lumbar Nerve, Open Approach (ICD-10-PCS; 2023-07-12)
PROC: 01NR0ZZ Release Sacral Nerve, Open Approach (ICD-10-PCS; 2023-07-12)
PROC: 0QP104Z Removal of Internal Fixation Device from Sacrum, Open Approach (ICD-10-PCS; 2023-07-12)
PROC: 8E0WXBZ Computer Assisted Procedure of Trunk Region (ICD-10-PCS; 2023-07-12)
PROC: 0SG10AJ Fusion of 2 or more Lumbar Vertebral Joints with Interbody Fusion Device, Posterior Approach, Anterior Column, Open Approach (ICD-10-PCS; principal; 2023-07-12 09:45)
DX: M47.26 Other spondylosis with radiculopathy, lumbar region (principal); M32.9 Systemic lupus erythematosus, unspecified; Z99.81 Dependence on supplemental oxygen; J44.9 Chronic obstructive pulmonary disease, unspecified; N18.30 Chronic kidney disease, stage 3 unspecified; G25.81 Restless legs syndrome; M48.061 Spinal stenosis, lumbar region without neurogenic claudication; M47.27 Other spondylosis with radiculopathy, lumbosacral region; M48.07 Spinal stenosis, lumbosacral region; M43.16 Spondylolisthesis, lumbar region; R15.9 Full incontinence of feces; G47.9 Sleep disorder, unspecified; N26.1 Atrophy of kidney (terminal); M25.78 Osteophyte, vertebrae; Z95.3 Presence of xenogenic heart valve; Z79.891 Long term (current) use of opiate analgesic; I25.2 Old myocardial infarction; Z95.0 Presence of cardiac pacemaker; Z79.01 Long term (current) use of anticoagulants; Z88.1 Allergy status to other antibiotic agents; Z86.711 Personal history of pulmonary embolism; Z79.82 Long term (current) use of aspirin; Z79.52 Long term (current) use of systemic steroids; Z79.899 Other long term (current) drug therapy; Z88.0 Allergy status to penicillin; Z88.8 Allergy status to other drugs, medicaments and biological substances; Z88.6 Allergy status to analgesic agent; Z88.7 Allergy status to serum and vaccine; Z91.040 Latex allergy status; Z88.5 Allergy status to narcotic agent
CPT/HCPCS: 72100; 72131; 80048; 82728; 85025; 85027; 86850; 86891; 86900; 86901; 86920; 94640; 94760

== ENCOUNTER → 2023-07-21 | Outpatient (CLI) | payer MEDICARE ==
[2023-07-21 16:19] LABS: ALT 21 U/L (8-44); AST 26 U/L (13-35); Albumin 4.3 g/dL (3.8-4.9); Albumin/Globulin Ratio 1.59 Ratio (1.60-3.17); Alkaline Phosphatase 91 U/L (41-126); Blood Urea Nitrogen 43.2 mg/dL (9.0-27.0); Calcium 9.3 mg/dL (8.7-10.3); Carbon Dioxide 24.9 mmol/L (21.6-31.8); Chloride 98 mmol/L (96-109); Ferritin 64.6 ng/mL (10.0-291.0); Globulin 2.7 g/dL (1.6-3.3); Glucose 173 mg/dL (70-110); Potassium 4.3 mmol/L (3.5-5.5); Sodium 139 mmol/L (135-145); Total Bilirubin <0.2 mg/dL (0.3-1.2)
[2023-07-21 16:20] LABS: HCT 36.6 % (37.2-46.3); HGB 11.6 g/dL (12.0-15.0); MCH 28.1 pg (27.0-32.0); MCHC 31.7 g/dL (32.0-37.0); MCV 88.6 FL (80.0-97.0); Mean Platelet Volume 10.9 FL (9.5-12.2); NRBC Per 100 WBC 0 X 10*3/uL (0.00-0.01); Platelet Count 369 X 10*3/uL (140-440); RBC 4.13 X 10*6/uL (4.10-5.20); WBC 10.43 X 10*3/uL (4.50-10.00)
== END | disposition home or self-care (01) ==
LOC: LABWHC1 11:03
PROVIDERS: ATTEND Family Medicine
DX: B89 Unspecified parasitic disease (principal); Z79.899 Other long term (current) drug therapy
CPT/HCPCS: 36415; 80053; 82728; 85027

== ENCOUNTER 2023-08-03 17:36 | Emergency (ER) | payer MEDICARE ==
--- NOTE | 2023-08-03 18:34 | ED ---
Nausea/Vomiting/Diarrhea HPI - General Chief complaint: Nausea/Vomiting/Diarrhea Stated complaint: Diarrhea,abd pain Source: patient, family, RN notes reviewed, old records reviewed, Caregiver Mode of arrival: ambulatory Limitations: no limitations - History of Present Illness Initial comments: This is a 58-year-old female well-known to this emergency room today. Patient is coming in for nausea vomiting diarrhea. Patient does have concern for C. difficile, patient recently had back surgery was on antibiotics and comes for persistent and copious diarrhea. Patient is denying fevers but does feel chills and sweats MD complaint: nausea, vomiting, diarrhea, abdominal pain -: days(s) Description of Vomiting: food contents, watery, bilious Description of Diarrhea: water, mucous, tarry Associated Abdominal Pain: Yes Location: diffuse Radiation: none Severity: moderate Severity scale (1-10): 6 Quality: stabbing, aching Consistency: constant Improves with: none Worsens with: none - Related Data Home Medications Medication Instructions Recorded Confirmed Atorvastatin [Lipitor] 40 mg PO HS 09/24/21 07/12/23 Gabapentin 600 mg PO QID 09/24/21 07/12/23 Sertraline [Zoloft] 200 mg PO DAILY 09/24/21 07/12/23 Apixaban [Eliquis] 5 mg PO BID 05/29/22 07/07/23 busPIRone HCl [Buspar] 5 mg PO BID 06/11/22 07/12/23 Bumetanide [BUMEX] 2 mg PO DAILY 06/24/22 07/12/23 Fludrocortisone [Florinef] 0.1 mg PO DAILY 09/20/22 07/12/23 Ondansetron [Zofran] 4 mg PO Q8H PRN 11/29/22 07/12/23 Ipratropium Nebulized [Atrovent 0.5 mg INHALATION RT-QID PRN 01/12/23 07/12/23 Nebulized 0.2 MG/ML] Potassium Chloride ER [K-Dur 20] 20 meq PO DAILY 01/12/23 07/12/23 Famotidine 20 mg PO BID 02/16/23 07/12/23 Metoprolol Succinate (ER) [Toprol 50 mg PO HS 02/16/23 07/12/23 XL] rOPINIRole HCL [Requip] 2 mg PO HS 04/28/23 07/12/23 Orphenadrine Citrate [Orphenadrine 100 mg PO DAILY 06/19/23 07/12/23 Citrate ER] Enoxaparin [Lovenox] 40 mg SQ DAILY 07/07/23 07/12/23 Hydrocodone/Acetaminophen 1 tab PO BID 07/07/23 07/12/23 [Hydrocodone/Acetaminophen 7.5-325] Unk Steroids 1 tab PO DIRECTED 07/07/23 07/07/23 Zonisamide [Zonegran] 100 mg PO Q12HR 07/07/23 07/12/23 diphenhydrAMINE [Benadryl] 50 mg IM Q6HR PRN 07/07/23 07/12/23 Previous Rx's Medication Instructions Recorded Cyclobenzaprine [Flexeril] 5 mg PO TID PRN #15 tablet 03/02/23 Codeine Phosphate/Guaifenesin 5 - 10 ml PO Q4-6H PRN #473 ml 06/13/23 [Codeine Phosphate/Guaifenesin 10-100 mg/5 ml] Ipratropium Nebulized [Atrovent 0.5 mg INHALATION Q6HR #300 ml 06/13/23 Nebulized 0.2 MG/ML] Aspirin 325 mg PO DAILY tab 06/22/23 Folic Acid 0.5 mg PO DAILY tab 06/22/23 Gabapentin 600 mg PO TID #90 tab 07/15/23 Orphenadrine [Norflex] 100 mg PO Q12H PRN #40 tab 07/15/23 Sennosides/Docusate Sodium [Senna 1 each PO DAILY PRN #20 tablet 07/15/23 Plus 8.6-50 mg Tablet] metroNIDAZOLE [Flagyl] 500 mg PO TID #28 tab 07/15/23 oxyCODONE-APAP 10-325MG [Percocet 1 tab PO Q6HR PRN #42 tab 07/15/23 10-325 mg] Metoclopramide [Reglan] 10 mg PO TID PRN #15 tab 08/03/23 Allergies Allergy/AdvReac Type Severity Reaction Status Date / Time Penicillins Allergy Severe Anaphylaxis Verified 07/12/23 08:33 vancomycin Allergy Severe Swelling Verified 07/12/23 08:33 in lips albuterol [From Ventolin HFA] Allergy Rapid Verified 07/12/23 08:33 Heart Rate cefepime Allergy Swelling Verified 07/12/23 08:33 clindamycin Allergy Anaphylaxis Verified 07/12/23 08:33 dexamethasone [From Decadron] Allergy severe Verified 07/12/23 08:33 pain, like needles in groin Influenza Virus Vaccines Allergy Anaphylaxis Verified 07/12/23 08:33 latex Allergy Itching Verified 07/12/23 08:33 and swelling morphine Allergy Anaphylaxis Verified 07/12/23 08:33 prochlorperazine Allergy severe Verified 07/12/23 08:33 [From Compazine] anxiety [id number]-gnlm AdvReac Confusion, Verified 07/12/23 08:33 [From Emgality Pen] increased blood pressure metoclopramide [From Reglan] AdvReac "felt like Verified 07/12/23 08:33 I needed to jump out of my skin" Review of Systems ROS Statement: Those systems with pertinent positive or pertinent negative responses have been documented in the HPI. ROS Other: All systems not noted in ROS Statement are negative. 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 for low K+. lupus, valve replacement x2 Last Myocardial Infarction Date:: 08/30/2018 History of Any Multi-Drug Resistant Organisms: C-DIFF Date of last positivie culture/infection: 03/02/23 MDRO Source:: Stool Past Surgical History: Back Surgery, Breast Surgery, Cardiac Valve Replacement, Section, Cholecystectomy, Heart Catheterization, Hysterectomy, Pacemaker Additional Past Surgical History / Comment(s): pacemaker d/t bradycardia/hypotension with last one place in 2013 in [place], [place], 3 lower back surgeries, bilateral breast reduction. 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. lamenectomy Past Anesthesia/Blood Transfusion Reactions: No Reported Reaction Additional Past Anesthesia/Blood Transfusion Reaction / Comment(s): blood transfusion no issues Type of Cardiac Device: Permanent Pacemaker, Unknown Device Placement Date:: 2012 Past Psychological History: Anxiety Smoking Status: Never smoker Past Alcohol Use History: None Reported Past Drug Use History: None Reported - Past Family History Mother Additional Family Medical History / Comment(s): Mother at the age of 49 yrs after surgery for silicon breast implants with a leak that caused ARDS and DIC per pt (fibroid cysts) Father Family Medical History: Cancer, Hyperlipidemia, Hypertension Additional Family Medical History / Comment(s): Father is a colon cancer survivor. General Exam Limitations: no limitations General appearance: alert, in no apparent distress Head exam: Present: atraumatic, normocephalic, normal inspection Eye exam: Present: normal appearance, PERRL, EOMI. Absent: scleral icterus, co njunctival injection, periorbital swelling ENT exam: Present: normal exam, mucous membranes moist Neck exam: Present: normal inspection. Absent: tenderness, meningismus, lymphadenopathy Respiratory exam: Present: normal lung sounds bilaterally. Absent: respiratory distress, wheezes, rales, rhonchi, stridor Cardiovascular Exam: Present: regular rate, normal rhythm, normal heart sounds. Absent: systolic murmur, diastolic murmur, rubs, gallop, clicks GI/Abdominal exam: Present: soft, normal bowel sounds. Absent: distended, tenderness, guarding, rebound, rigid Extremities exam: Present: normal inspection, full ROM, normal capillary refill. Absent: tenderness, pedal edema, joint swelling, calf tenderness Back exam: Present: normal inspection Neurological exam: Present: alert, oriented X3, CN II-XII intact Psychiatric exam: Present: normal affect, normal mood Skin exam: Present: warm, dry, intact, normal color. Absent: rash Course Vital Signs 08/03/23 08/03/23 08/03/23 18:05 20:42 21:22 Temperature 98.2 F Pulse Rate 108 H 72 70 Respiratory 20 16 15 Rate Blood Pressure 140/76 123/71 109/73 O2 Sat by Pulse 97 97 93 L Oximetry 08/03/23 22:39 Temperature 98.7 F Pulse Rate 74 Respiratory 16 Rate Blood Pressure 109/67 O2 Sat by Pulse 94 L Oximetry - Reevaluation(s) Reevaluation #1: 08/03/23 19:02 Medical records reviewed Reevaluation #2: Patient symptoms are improved here in the ER Reevaluation #3: Patient informed of results and questions answered Reevaluation #4: Was pt. sent in by a medical professional or institution ([facility] Castorena, PUBLIC RELATIONS ACCOUNT SUPERVISOR, urgent care, hospital, or senior living...) When possible be specific @ -no Did you speak to anyone other than the patient for history (EMS, parent, family, police, friend...)? What history was obtained from this source @ -no Did you review nursing and triage notes (agree or disagree)? Why? @ -agree Are old charts reviewed (outside hosp., previous admission, EMS record, old EKG, old radiological studies, urgent care reports/EKG's, senior living records)? Report findings @ -yes Differential Diagnosis (chest pain, altered mental status, abdominal pain women, abdominal pain men, vaginal bleeding, weakness, fever, dyspnea, syncope, headache, dizziness, GI bleed, back pain, seizure, CVA, palpatations, mental health, musculoskeletal)? @ -prior EKG interpreted by me (3pts min.). @ -yes X-rays interpreted by me (1pt min.). @ -no CT interpreted by me (1pt min.). @ -no U/S interpreted by me (1pt. min.). @ -no What testing was considered but not performed or refused? (CT, X-rays, U/S, labs)? Why? @ -none What meds were considered but not given or refused? Why? @ -none Did you discuss the management of the patient with other professionals (professionals i.e. EL[facility]ABETH Castorena, PUBLIC RELATIONS ACCOUNT SUPERVISOR, lab, RT, psych nurse, social services assistant, roll former, teacher, compliance officer, insurance case manager)? Give summary @ -no Was smoking cessation discussed for >3mins.? @ -no Was critical care preformed (if so, how long)? @ -no Were there social determinants of health that impacted care today? How? (Ho melessness, low income, unemployed, alcoholism, drug addiction, transportation, low edu. Level, literacy, decrease access to med. care, skilled nursing, rehab)? @ -none Was there de-escalation of care discussed even if they declined (Discuss DNR or withdrawal of care, Hospice)? DNR status @ -no What co-morbidities impacted this encounter? (DM, HTN, Smoking, COPD, CAD, Cancer, CVA, ARF, Chemo, Hep., AIDS, mental health diagnosis, sleep apnea, morbid obesity)? @ -none Was patient admitted / discharged? Hospital course, mention meds given and route, prescriptions, significant lab abnormalities, going to OR and other pertinent info. 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 @ -no Drug Therapy requiring intensive monitoring for toxicity (Heparin, Nitro, Insulin, Cardizem)? @ -no Were any procedures done? @ -no Diagnosis/symptom? @ -Nausea vomiting diarrhea Acute, or Chronic, or Acute on Chronic? @ -Acute Uncomplicated (without systemic symptoms) or Complicated (systemic symptoms)? @ -Complicated Side effects of treatment? @ -no Exacerbation, Progression, or Severe Exacerbation? @ -exacerbation Poses a threat to life or bodily function? How? (Chest pain, [place], [place], pneumonia, PE, COPD, DKA, ARF, appy, cholecystitis, CVA, Diverticulitis, Homicidal, Suicidal, threat to staff... and all critical care pts) @ -yes with significant sepsis and acute disease Medical Decision Making - Medical Decision Making 58 female to ER for evaluation of possible C. difficile colitis. Patient has persistent diarrhea here in the ER patient can be discharged home where she is negative for C. difficile lab test are normal and she is feeling improved - Lab Data Result diagrams: 08/03/23 20:13 08/03/23 20:13 Lab Results 08/03/23 08/03/23 08/03/23 Range/Units 20:13 20:13 20:13 WBC 9.4 (3.8-10.6) k/uL RBC 4.14 (3.80-5.40) m/uL Hgb 11.4 (11.4-16.0) gm/dL Hct 35.7 (34.0-46.0) % MCV 86.3 (80.0-100.0) fL MCH 27.5 (25.0-35.0) pg MCHC 31.9 (31.0-37.0) g/dL RDW 15.1 (11.5-15.5) % Plt Count 464 H D (150-450) k/uL MPV 8.1 Neutrophils % 76 % Lymphocytes % 12 % Monocytes % 7 % Eosinophils % 2 % Basophils % 0 % Neutrophils # 7.2 (1.3-7.7) k/uL Lymphocytes # 1.2 (1.0-4.8) k/uL Monocytes # 0.6 (0-1.0) k/uL Eosinophils # 0.1 (0-0.7) k/uL Basophils # 0.0 (0-0.2) k/uL Hypochromasia Moderate Poikilocytosis Slight PT 10.9 (10.0-12.5) sec INR 1.0 (<1.2) APTT 27.0 (22.0-30.0) sec Sodium 137 (137-145) mmol/L Potassium 3.2 L (3.5-5.1) mmol/L Chloride 98 (98-107) mmol/L Carbon Dioxide 30 (22-30) mmol/L Anion Gap 9 mmol/L BUN 29 H (7-17) mg/dL Creatinine 1.64 H (0.52-1.04) mg/dL Est GFR (CKD-EPI)AfAm 39 (>60 ml/min/1.73 sqM) Est GFR (CKD-EPI)NonAf 34 (>60 ml/min/1.73 sqM) Glucose 99 (74-99) mg/dL Plasma Lactic Acid Raffi (0.7-2.0) mmol/L Calcium 8.8 (8.4-10.2) mg/dL Phosphorus 3.0 (2.5-4.5) mg/dL Magnesium 2.6 H (1.6-2.3) mg/dL Total Bilirubin 0.3 (0.2-1.3) mg/dL AST 29 (14-36) U/L ALT 25 (4-34) U/L Alkaline Phosphatase 173 H (38-126) U/L Troponin I (0.000-0.034) ng/mL Total Protein 6.5 (6.3-8.2) g/dL Albumin 3.7 (3.5-5.0) g/dL TSH 0.856 (0.465-4.680) mIU/L Urine Color Urine Appearance (Clear) Urine pH (5.0-8.0) Ur Specific [place] (1.001-1.035) Urine Protein (Negative) Urine Glucose (UA) (Negative) Urine Ketones (Negative) Urine Blood (Negative) Urine Nitrite (Negative) Urine Bilirubin (Negative) Urine Urobilinogen (<2.0) mg/dL Ur Leukocyte Esterase (Negative) Urine RBC (0-5) /hpf Urine WBC (0-5) /hpf Ur Squamous Epith Cells (0-4) /hpf Urine Bacteria (None) /hpf Urine Mucus (None) /hpf C. difficile (EIA) Intrp (Negative) 08/03/23 08/03/23 08/03/23 Range/Units 20:13 20:13 20:13 WBC (3.8-10.6) k/uL RBC (3.80-5.40) m/uL Hgb (11.4-16.0) gm/dL Hct (34.0-46.0) % MCV (80.0-100.0) fL MCH (25.0-35.0) pg MCHC (31.0-37.0) g/dL RDW (11.5-15.5) % Plt Count (150-450) k/uL MPV Neutrophils % % Lymphocytes % % Monocytes % % Eosinophils % % Basophils % % Neutrophils # (1.3-7.7) k/uL Lymphocytes # (1.0-4.8) k/uL Monocytes # (0-1.0) k/uL Eosinophils # (0-0.7) k/uL Basophils # (0-0.2) k/uL Hypochromasia Poikilocytosis PT (10.0-12.5) sec INR (<1.2) APTT (22.0-30.0) sec Sodium (137-145) mmol/L Potassium (3.5-5.1) mmol/L Chloride (98-107) mmol/L Carbon Dioxide (22-30) mmol/L Anion Gap mmol/L BUN (7-17) mg/dL Creatinine (0.52-1.04) mg/dL Est GFR (CKD-EPI)AfAm (>60 ml/min/1.73 sqM) Est GFR (CKD-EPI)NonAf (>60 ml/min/1.73 sqM) Glucose (74-99) mg/dL Plasma Lactic Acid Raffi 1.4 (0.7-2.0) mmol/L Calcium (8.4-10.2) mg/dL Phosphorus (2.5-4.5) mg/dL Magnesium (1.6-2.3) mg/dL Total Bilirubin (0.2-1.3) mg/dL AST (14-36) U/L ALT (4-34) U/L Alkaline Phosphatase (38-126) U/L Troponin I <0.012 (0.000-0.034) ng/mL Total Protein (6.3-8.2) g/dL Albumin (3.5-5.0) g/dL TSH (0.465-4.680) mIU/L Urine Color Urine Appearance (Clear) Urine pH (5.0-8.0) Ur Specific [place] (1.001-1.035) Urine Protein (Negative) Urine Glucose (UA) (Negative) Urine Ketones (Negative) Urine Blood (Negative) Urine Nitrite (Negative) Urine Bilirubin (Negative) Urine Urobilinogen (<2.0) mg/dL Ur Leukocyte Esterase (Negative) Urine RBC (0-5) /hpf Urine WBC (0-5) /hpf Ur Squamous Epith Cells (0-4) /hpf Urine Bacteria (None) /hpf Urine Mucus (None) /hpf C. difficile (EIA) Intrp (Negative) 08/03/23 Range/Units 20:13 WBC (3.8-10.6) k/uL RBC (3.80-5.40) m/uL Hgb (11.4-16.0) gm/dL Hct (34.0-46.0) % MCV (80.0-100.0) fL MCH (25.0-35.0) pg MCHC (31.0-37.0) g/dL RDW (11.5-15.5) % Plt Count (150-450) k/uL MPV Neutrophils % % Lymphocytes % % Monocytes % % Eosinophils % % Basophils % % Neutrophils # (1.3-7.7) k/uL Lymphocytes # (1.0-4.8) k/uL Monocytes # (0-1.0) k/uL Eosinophils # (0-0.7) k/uL Basophils # (0-0.2) k/uL Hypochromasia Poikilocytosis PT (10.0-12.5) sec INR (<1.2) APTT (22.0-30.0) sec Sodium (137-145) mmol/L Potassium (3.5-5.1) mmol/L Chloride (98-107) mmol/L Carbon Dioxide (22-30) mmol/L Anion Gap mmol/L BUN (7-17) mg/dL Creatinine (0.52-1.04) mg/dL Est GFR (CKD-EPI)AfAm (>60 ml/min/1.73 sqM) Est GFR (CKD-EPI)NonAf (>60 ml/min/1.73 sqM) Glucose (74-99) mg/dL Plasma Lactic Acid Raffi (0.7-2.0) mmol/L Calcium (8.4-10.2) mg/dL Phosphorus (2.5-4.5) mg/dL Magnesium (1.6-2.3) mg/dL Total Bilirubin (0.2-1.3) mg/dL AST (14-36) U/L ALT (4-34) U/L Alkaline Phosphatase (38-126) U/L Troponin I (0.000-0.034) ng/mL Total Protein (6.3-8.2) g/dL Albumin (3.5-5.0) g/dL TSH (0.465-4.680) mIU/L Urine Color Urine Appearance (Clear) Urine pH (5.0-8.0) Ur Specific [place] (1.001-1.035) Urine Protein (Negative) Urine Glucose (UA) (Negative) Urine Ketones (Negative) Urine Blood (Negative) Urine Nitrite (Negative) Urine Bilirubin (Negative) Urine Urobilinogen (<2.0) mg/dL Ur Leukocyte Esterase (Negative) Urine RBC (0-5) /hpf Urine WBC (0-5) /hpf Ur Squamous Epith Cells (0-4) /hpf Urine Bacteria (None) /hpf Urine Mucus (None) /hpf C. difficile (EIA) Intrp Negative (Negative) Disposition Clinical Impression: Muscle spasm, Intractable pain, Abdominal pain, Nausea and vomiting Disposition: HOME SELF-CARE Condition: Good Instructions (If sedation given, give patient instructions): Acute Diarrhea (ED), Abdominal Pain (ED) Prescriptions: Metoclopramide [Reglan] 10 mg PO TID PRN #15 tab PRN Reason: nausea/vomiting Is patient prescribed a controlled substance at d/c from ED?: No Referrals: Franklin Hassan MD [Primary Care Provider] - 1-2 days Time of Disposition: 22:30
[2023-08-03] MEDS: HYDROmorphone 1 MG/ML 1 ML SYRINGE IVP STA ×2 (20:05→22:33)
[2023-08-03] MEDS: droPERidol 5 MG/2 ML VIAL IVP ONE (20:06)
[2023-08-03] MEDS: SODIUM CHLORIDE 0.9% 1,000 ML IV STA (20:06)
[2023-08-03 20:42] LABS: Basophils % (A) 0 %; Eosinophils # (A) 0.1 k/uL (0-0.7); Eosinophils % (A) 2 %; HCT 35.7 % (34.0-46.0); HGB 11.4 gm/dL (11.4-16.0); Hypochromasia Moderate; Lymphocytes # (A) 1.2 k/uL (1.0-4.8); Lymphocytes % (A) 12 %; MCH 27.5 pg (25.0-35.0); MCHC 31.9 g/dL (31.0-37.0); MCV 86.3 fL (80.0-100.0); Mean Platelet Volume 8.1; Monocytes # (A) 0.6 k/uL (0-1.0); Monocytes % (A) 7 %; Neutrophils # (A) 7.2 k/uL (1.3-7.7); Neutrophils % (A) 76 %; Poikilocytosis Slight; RBC 4.14 m/uL (3.80-5.40); RDW 15.1 % (11.5-15.5); WBC 9.4 k/uL (3.8-10.6)
[2023-08-03 20:52] LABS: ALT 25 U/L (4-34); AST 29 U/L (14-36); African American GFR (CKD) 39 (>60 ml/min/1.73 sqM); Albumin 3.7 g/dL (3.5-5.0); Alkaline Phosphatase 173 U/L (38-126); Anion Gap 9 mmol/L; Blood Urea Nitrogen 29 mg/dL (7-17); Calcium 8.8 mg/dL (8.4-10.2); Carbon Dioxide 30 mmol/L (22-30); Chloride 98 mmol/L (98-107); Glucose 99 mg/dL (74-99); Magnesium 2.6 mg/dL (1.6-2.3); Non-African American GFR(CKD) 34 (>60 ml/min/1.73 sqM); Potassium 3.2 mmol/L (3.5-5.1); Sodium 137 mmol/L (137-145); Total Bilirubin 0.3 mg/dL (0.2-1.3); Total Protein 6.5 g/dL (6.3-8.2)
[2023-08-03 20:56] LABS: Prothrombin Time 10.9 sec (10.0-12.5)
[2023-08-03 20:58] LABS: Platelet Count 464 k/uL (150-450)
[2023-08-03] MEDS: POTASSIUM BICARBONATE/CIT AC 20 MEQ TABLET.EFF PO ONE (22:36)
[2023-08-03 23:10] VITALS: BP 109/67; PULSE 74; RESP 16; TEMP 98.7
== END 2023-08-03 22:41 | disposition home or self-care (01) ==
LOC: EC 17:36
DX: M62.838 Other muscle spasm (principal); R11.2 Nausea with vomiting, unspecified; R10.9 Unspecified abdominal pain; R19.7 Diarrhea, unspecified; Z88.0 Allergy status to penicillin; Z88.1 Allergy status to other antibiotic agents; Z88.7 Allergy status to serum and vaccine; Z88.8 Allergy status to other drugs, medicaments and biological substances; Z91.040 Latex allergy status; Z90.49 Acquired absence of other specified parts of digestive tract; Z95.0 Presence of cardiac pacemaker
CPT/HCPCS: 99284; 96374; 96375; 96376; 96361; 36415; 80053; 83605; 83735; 84100; 84443; 84484; 85025; 85610; 85730; 87040; 87324; J1170; J1790; 81001

== ENCOUNTER 2023-08-12 14:27 | Emergency (ER) | payer MEDICARE ==
--- NOTE | 2023-08-12 14:51 | ED ---
General Adult HPI - General Source: patient, RN notes reviewed Mode of arrival: ambulatory Limitations: no limitations <Norris Hamilton - Last Filed: 08/12/23 14:50> - General Source: patient, family, RN notes reviewed, old records reviewed Limitations: no limitations <Terence Mattson - Last Filed: 08/12/23 19:28> - General Chief complaint: Recheck/Abnormal Lab/Rx Stated complaint: Post op back complications Time Seen by Provider: 08/12/23 14:35 - History of Present Illness Initial comments: Quick [id number] female presents emergency department complaint of back pain, hip and leg pain. Patient states she had surgery by Dr. San in 4 weeks ago she states they are unavailable she states has been having increasing pain last couple days rating to her groin and leg. (Norris Hamilton) Patient is a 58-year-old female present to the emergency department with back pain. Patient does have chronic back pain. Patient did have surgery a month ago with Dr. Goodman cid. Patient was doing fine until a week ago when discomfort started to return. Discomfort has become much worse over the past 2 days. No fever. No weakness. No incontinence or retention of bowel or bladder. No loss of sensation. Patient states discomfort is lower lumbar and radiates towards the right hip and leg. Patient states this is similar to pain she had prior to her surgery. (Terence Mattson) - Related Data Home Medications Medication Instructions Recorded Confirmed Atorvastatin [Lipitor] 40 mg PO HS 09/24/21 08/12/23 Sertraline [Zoloft] 200 mg PO DAILY 09/24/21 08/12/23 Apixaban [Eliquis] 5 mg PO BID 05/29/22 08/12/23 busPIRone HCl [Buspar] 5 mg PO BID 06/11/22 08/12/23 Bumetanide [BUMEX] 2 mg PO DAILY 06/24/22 08/12/23 Fludrocortisone [Florinef] 0.1 mg PO DAILY 09/20/22 08/12/23 Potassium Chloride ER [K-Dur 20] 20 meq PO DAILY 01/12/23 08/12/23 Metoprolol Succinate (ER) [Toprol 50 mg PO HS 02/16/23 08/12/23 XL] rOPINIRole HCL [Requip] 2 mg PO HS 04/28/23 08/12/23 Zonisamide [Zonegran] 100 mg PO Q12HR 07/07/23 08/12/23 Bumetanide [Bumex] 1 mg PO HS 08/12/23 08/12/23 Diphenhydramine 50mg Injection 50 mg IM Q6H PRN 08/12/23 08/12/23 Esomeprazole Magnesium [NexIUM 20 mg PO DAILY 08/12/23 08/12/23 24Hr] Ipratropium Nebulized [Atrovent 0.5 mg INHALATION RT-QID PRN 08/12/23 08/12/23 Nebulized 0.2 MG/ML] Ondansetron Odt [Zofran Odt] 4 mg PO Q8HR PRN 08/12/23 08/12/23 Orphenadrine [Norflex] 100 mg PO BID 08/12/23 08/12/23 Spironolactone [Aldactone] 50 mg PO DAILY 08/12/23 08/12/23 Tiotropium Br/Olodaterol HCl 2 puff INHALATION RT-DAILY 08/12/23 08/12/23 [Stiolto Respimat Inhal [place]] metOLazone [Zaroxolyn] 5 mg PO DAILY PRN 08/12/23 08/12/23 oxyCODONE-APAP 5-325MG [Percocet 1 tab PO Q6H PRN 08/12/23 08/12/23 5-325 mg] Previous Rx's Medication Instructions Recorded Cyclobenzaprine [Flexeril] 5 mg PO TID PRN #15 tablet 03/02/23 Codeine Phosphate/Guaifenesin 5 - 10 ml PO Q4-6H PRN #473 ml 06/13/23 [Codeine Phosphate/Guaifenesin 10-100 mg/5 ml] Aspirin 325 mg PO DAILY tab 06/22/23 Folic Acid 0.5 mg PO DAILY tab 06/22/23 Gabapentin 600 mg PO TID #90 tab 07/15/23 Allergies Allergy/AdvReac Type Severity Reaction Status Date / Time Penicillins Allergy Severe Anaphylaxis Verified 08/12/23 16:24 vancomycin Allergy Severe Swelling Verified 08/12/23 16:24 in lips albuterol [From Ventolin HFA] Allergy Rapid Verified 08/12/23 16:24 Heart Rate cefepime Allergy Swelling Verified 08/12/23 16:24 clindamycin Allergy Anaphylaxis Verified 08/12/23 16:24 dexamethasone [From Decadron] Allergy severe Verified 08/12/23 16:24 pain, like needles in groin Influenza Virus Vaccines Allergy Anaphylaxis Verified 08/12/23 16:24 latex Allergy Itching Verified 08/12/23 16:24 and swelling morphine Allergy Anaphylaxis Verified 08/12/23 16:24 prochlorperazine Allergy severe Verified 08/12/23 16:24 [From Compazine] anxiety [id number] AdvReac Confusion, Verified 08/12/23 16:24 [From Emgality Pen] increased blood pressure metoclopramide [From Reglan] AdvReac "felt like Verified 08/12/23 16:24 I needed to jump out of my skin" Review of Systems ROS Other: All systems not noted in ROS Statement are negative. <Norris Hamilton - Last Filed: 08/12/23 14:50> ROS Other: All systems not noted in ROS Statement are negative. Constitutional: Denies: fever Eyes: Denies: eye pain ENT: Denies: ear pain Gastrointestinal: Denies: abdominal pain Musculoskeletal: Reports: as per HPI <Terence Mattson - Last Filed: 08/12/23 19:28> ROS Statement: Those systems with pertinent positive or pertinent negative responses have been documented in the HPI. 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 for low K+. lupus, valve replacement x2 Last Myocardial Infarction Date:: 08/30/2018 History of Any Multi-Drug Resistant Organisms: C-DIFF Date of last positivie culture/infection: 03/02/23 MDRO Source:: Stool Past Surgical History: Back Surgery, Breast Surgery, Cardiac Valve Replacement, Section, Cholecystectomy, Heart Catheterization, Hysterectomy, Pacemaker Additional Past Surgical History / Comment(s): pacemaker d/t bradycardia/hypotension with last one place in 2013 in [place], [place], 3 lower back surgeries, bilateral breast reduction. 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. lamenectomy Past Anesthesia/Blood Transfusion Reactions: No Reported Reaction Additional Past Anesthesia/Blood Transfusion Reaction / Comment(s): blood transf usion no issues Type of Cardiac Device: Permanent Pacemaker, Unknown Device Placement Date:: 2012 Past Psychological History: Anxiety Smoking Status: Never smoker Past Alcohol Use History: None Reported Past Drug Use History: None Reported - Past Family History Mother Additional Family Medical History / Comment(s): Mother at the age of 49 yrs after surgery for silicon breast implants with a leak that caused ARDS and DIC per pt (fibroid cysts) Father Family Medical History: Cancer, Hyperlipidemia, Hypertension Additional Family Medical History / Comment(s): Father is a colon cancer survivor. <Norris Hamilton - Last Filed: 08/12/23 14:50> General Exam Limitations: no limitations <Norris Hamilton - Last Filed: 08/12/23 14:50> Limitations: no limitations General appearance: alert, in no apparent distress Head exam: Present: normocephalic Eye exam: Present: normal appearance Neck exam: Present: normal inspection Respiratory exam: Present: normal lung sounds bilaterally Cardiovascular Exam: Present: regular rate, normal rhythm Expanded Peripheral pulses: 2+: Posterior Tibialis (R), Posterior Tibialis (L) GI/Abdominal exam: Present: soft. Absent: distended, tenderness, pulsatile mass Extremities exam: Present: normal inspection. Absent: calf tenderness Back exam: Present: tenderness (Mild lower lumbar, on the right) Neurological exam: Present: alert. Absent: motor sensory deficit Expanded Sensory exam: Lower Extremity Light Touch: Normal Motor strength exam: RLE: 5, LLE: 5 Psychiatric exam: Present: normal affect, normal mood Skin exam: Present: normal color <Terence Mattson - Last Filed: 08/12/23 19:28> - General Exam Comments Initial Comments: Visual Physical Exam Vital signs reviewed General: Well-appearing, nontoxic, no acute distress. Head: Normocephalic, atraumatic Eyes: PERRLA, EOMI ENT: Airway patent Chest: Nonlabored breathing Skin: No visual rash, normal skin tone Neuro: Alert and oriented 3 Musculoskeletal: No gross abnormalities (Norris Hamilton) Course Vital Signs 08/12/23 08/12/23 14:29 18:00 Temperature 98.1 F Pulse Rate 79 78 Respiratory 20 20 Rate Blood Pressure 115/71 116/65 O2 Sat by Pulse 96 98 Oximetry Medical Decision Making <Norris Hamilton - Last Filed: 08/12/23 14:50> - Lab Data Result diagrams: 08/12/23 16:56 08/12/23 16:56 <Terence Mattson - Last Filed: 08/12/23 19:28> - Medical Decision Making I completed the quick note portion of this chart signed Norris Hamilton PA-C (Norris Hamilton) Was pt. sent in by a medical professional or institution ([facility]orena, ACCOUNT DEVELOPMENT SPECIALIST, urgent care, hospital, or care home...) When possible be specific @ -No Did you speak to anyone other than the patient for history (EMS, parent, family, police, friend...)? What history was obtained from this source @ - is present and helps provide additional history including when patient had surgery Did you review nursing and triage notes (agree or disagree)? Why? @ -I reviewed and agree with nursing and triage notes Were old charts reviewed (outside hosp., previous admission, EMS record, old E KG, old radiological studies, urgent care reports/EKG's, care home records)? Report findings @ - Differential Diagnosis (chest pain, altered mental status, abdominal pain women, abdominal pain men, vaginal bleeding, weakness, fever, dyspnea, syncope, headache, dizziness, GI bleed, back pain, seizure, CVA, palpatations, mental health, musculoskeletal)? @ -Differential Back Pain: Strain, zoster, cauda equina syndrome, epidural abscess, vertebral osteomyelitis, discitis, fracture, subluxation, disc herniation, DJD, spinal stenosis, dissection, AAA, pancreatitis, peptic ulcer disease, pyelonephritis, kidney stone, this is not meant to be an all-inclusive list. EKG interpreted by me (3pts min.). @ -As above X-rays interpreted by me (1pt min.). @ -Lumbar x-rays show postoperative changes CT interpreted by me (1pt min.). @ -CT scan lumbar spine shows postoperative changes U/S interpreted by me (1pt. min.). @ -None done What testing was considered but not performed or refused? (CT, X-rays, U/S, labs)? Why? @ -None What meds were considered but not given or refused? Why? @ -None Did you discuss the management of the patient with other professionals (professionals i.e. Dr., PA, ACCOUNT DEVELOPMENT SPECIALIST, lab, RT, psych nurse, social science instructor, shaker plate operator, teacher, resident medical officer, caser)? Give summary @ -Case discussed with practitioner Elo who is familiar with this patient and is comfortable with discharge. Was smoking cessation discussed for >3mins.? @ -No Was critical care preformed (if so, how long)? @ -No Were there social determinants of health that impacted care today? How? (Home lessness, low income, unemployed, alcoholism, drug addiction, transportation, low edu. Level, literacy, decrease access to med. care, care home, rehab)? @ -No Was there de-escalation of care discussed even if they declined (Discuss DNR or withdrawal of care, Hospice)? DNR status @ -No What co-morbidities impacted this encounter? (DM, HTN, Smoking, COPD, CAD, Cancer, CVA, ARF, Chemo, Hep., AIDS, mental health diagnosis, sleep apnea, morbid obesity)? @ -None Was patient admitted / discharged? Hospital course, mention meds given and route, prescriptions, significant lab abnormalities, going to OR and other pertinent info. @ -Patient reevaluated and resting comfortably in bed. Patient is updated on results and need for follow-up Undiagnosed new problem with uncertain prognosis? @ -No Drug Therapy requiring intensive monitoring for toxicity (Heparin, Nitro, Insulin, Cardizem)? @ -No Were any procedures done? @ -No Diagnosis/symptom? @ -Low back pain Acute, or Chronic, or Acute on Chronic? @ -Acute Uncomplicated (without systemic symptoms) or Complicated (systemic symptoms)? @ -Default Side effects of treatment? @ -No Exacerbation, Progression, or Severe Exacerbation? @ -No Poses a threat to life or bodily function? How? (Chest pain, USA, MT, pneumonia, PE, COPD, DKA, ARF, appy, cholecystitis, CVA, Diverticulitis, Homicidal, Suicidal, threat to staff... and all critical care pts) @ -No (Terence Mattson) - Lab Data Lab Results 08/12/23 08/12/23 Range/Units 16:56 16:56 WBC 8.5 (3.8-10.6) k/uL RBC 4.35 (3.80-5.40) m/uL Hgb 11.7 (11.4-16.0) gm/dL Hct 36.6 (34.0-46.0) % MCV 84.2 (80.0-100.0) fL MCH 26.9 (25.0-35.0) pg MCHC 32.0 (31.0-37.0) g/dL RDW 15.3 (11.5-15.5) % Plt Count 266 (150-450) k/uL MPV 8.8 Neutrophils % 77 % Lymphocytes % 13 % Monocytes % 5 % Eosinophils % 2 % Basophils % 0 % Neutrophils # 6.5 (1.3-7.7) k/uL Lymphocytes # 1.1 (1.0-4.8) k/uL Monocytes # 0.5 (0-1.0) k/uL Eosinophils # 0.2 (0-0.7) k/uL Basophils # 0.0 (0-0.2) k/uL Hypochromasia Slight Sodium 137 (137-145) mmol/L Potassium 3.6 (3.5-5.1) mmol/L Chloride 97 L (98-107) mmol/L Carbon Dioxide 30 (22-30) mmol/L Anion Gap 10 mmol/L BUN 36 H (7-17) mg/dL Creatinine 1.39 H (0.52-1.04) mg/dL Est GFR (CKD-EPI)AfAm 48 (>60 ml/min/1.73 sqM) Est GFR (CKD-EPI)NonAf 42 (>60 ml/min/1.73 sqM) Glucose 115 H (74-99) mg/dL Calcium 9.7 (8.4-10.2) mg/dL Total Bilirubin 0.6 (0.2-1.3) mg/dL AST 39 H (14-36) U/L ALT 27 (4-34) U/L Alkaline Phosphatase 152 H (38-126) U/L Total Protein 7.4 (6.3-8.2) g/dL Albumin 4.4 (3.5-5.0) g/dL Disposition <Norris Hamilton - Last Filed: 08/12/23 14:50> Is patient prescribed a controlled substance at d/c from ED?: No Time of Disposition: 19:27 <Terence Mattson - Last Filed: 08/12/23 19:28> Clinical Impression: Low back pain Disposition: HOME SELF-CARE Condition: Stable Instructions (If sedation given, give patient instructions): Back Pain (ED) Additional Instructions: Please do follow-up with primary care physician and your back doctor beginning of the week. Return for fever, redness or swelling, weakness, loss of sensation, loss of control of bowel or bladder function, worsening symptoms or any other concerns. Referrals: Franklin Hassan MD [Primary Care Provider] - 1-2 days Brannon San DO [Doctor of Osteopathic Medicine] - 1-2 days
[2023-08-12 15:02] VITALS: TEMP 98.1
--- NOTE | 2023-08-12 15:11 | XR ---
Lumbar spine HISTORY: Back pain COMPARISON: 07/12/2023. TECHNIQUE: 5 views of lumbar spine were obtained. FINDINGS: There is posterior metallic fusion from L3 through the sacrum. There is interbody fusion at the L3-4 and L4-5 levels. On the lateral view of the lumbar spine, there is a slight anterolisthesis of L4 on L5. The L1-2 disc space is well-maintained in height. There is mild degenerative disc disease at the L2-3 level where there is mild disc space narrowing. There is mild to moderate degenerative disease at the L5-S1 level. IMPRESSION: 1. Extensive postsurgical changes as described above. There is a slight anterolisthesis of L4 and L5. 2. Mild degenerative disc disease at the L2-3 level and L5-S1 levels.
[2023-08-12 17:07] LABS: Basophils % (A) 0 %; Eosinophils # (A) 0.2 k/uL (0-0.7); Eosinophils % (A) 2 %; HCT 36.6 % (34.0-46.0); HGB 11.7 gm/dL (11.4-16.0); Hypochromasia Slight; Lymphocytes # (A) 1.1 k/uL (1.0-4.8); Lymphocytes % (A) 13 %; MCH 26.9 pg (25.0-35.0); MCV 84.2 fL (80.0-100.0); Mean Platelet Volume 8.8; Monocytes # (A) 0.5 k/uL (0-1.0); Monocytes % (A) 5 %; Neutrophils # (A) 6.5 k/uL (1.3-7.7); Neutrophils % (A) 77 %; Platelet Count 266 k/uL (150-450); RBC 4.35 m/uL (3.80-5.40); RDW 15.3 % (11.5-15.5); WBC 8.5 k/uL (3.8-10.6)
[2023-08-12 17:17] LABS: ALT 27 U/L (4-34); African American GFR (CKD) 48 (>60 ml/min/1.73 sqM); Albumin 4.4 g/dL (3.5-5.0); Anion Gap 10 mmol/L; Blood Urea Nitrogen 36 mg/dL (7-17); Calcium 9.7 mg/dL (8.4-10.2); Carbon Dioxide 30 mmol/L (22-30); Chloride 97 mmol/L (98-107); Glucose 115 mg/dL (74-99); Non-African American GFR(CKD) 42 (>60 ml/min/1.73 sqM); Sodium 137 mmol/L (137-145); Total Bilirubin 0.6 mg/dL (0.2-1.3); Total Protein 7.4 g/dL (6.3-8.2)
[2023-08-12 17:27] LABS: AST 39 U/L (14-36); Potassium 3.6 mmol/L (3.5-5.1)
[2023-08-12 17:28] LABS: Alkaline Phosphatase 152 U/L (38-126)
[2023-08-12] MEDS: HYDROmorphone 1 MG/ML 1 ML SYRINGE IVP STA (17:55)
[2023-08-12] MEDS: HYDROmorphone 1 MG/ML 1 ML SYRINGE IM STA (18:35)
--- NOTE | 2023-08-12 18:35 | CT ---
EXAMINATION TYPE: CT lumbar spine wo con CT DLP: 955 mGycm, Automated exposure control for dose reduction was used. DATE OF EXAM: 08/12/2023 6:16 PM COMPARISON: 07/12/2023. CLINICAL INDICATION:Female, 58 years old with history of pain, low back pain TECHNIQUE: Multiple axial images were obtained from the midportion of T11 through the sacroiliac orly nts. Soft tissue and bone windows in coronal and sagittal planes were obtained and reviewed. Contrast used: mL of , (None, if empty). Oral contrast used: (None, if empty). FINDINGS: Alignment: There are 5 lumbar type vertebral bodies within normal alignment. Bone: Multilevel degeneration changes the spine worse in the area of prior fixation. Fixation hardwa re from L3 through S1 with bilateral sacroiliac screws are present. Hardware appears intact. Hardware appears in appropriate position. Laminectomy changes L3, L4 and L5. Discs: T12-L1: No spinal canal or neural foraminal stenosis is identified. L1-L2: No spinal canal or neural foraminal stenosis is identified. L2-L3: No spinal canal or neural foraminal stenosis is identified. L3-L4: Discectomy at this level. No spinal canal or neural foraminal stenosis is identified. L4-L5: Discectomy at this level. No spinal canal or neural foraminal stenosis is identified. L5-S1: No spinal canal or neural foraminal stenosis is identified. Other: 3 mm left nonobstructing calculus. The right kidney is atrophic. Nonobstructing right renal ca lculus measuring 2 mm. IMPRESSION: 1. No evidence for spinal fracture. 2. Post surgical changes to the spine with hardware intact.
[2023-08-12] MEDS: ORPHENADRINE 30 MG/ML 2 ML VIAL IM STA (19:19)
[2023-08-12] MEDS: predniSONE 20 MG TAB PO STA (20:03)
[2023-08-12 20:37] VITALS: BP 127/87; PULSE 69; RESP 18
== END 2023-08-12 20:15 | disposition home or self-care (01) ==
LOC: EC 14:27
DX: M43.16 Spondylolisthesis, lumbar region (principal); M51.36 Other intervertebral disc degeneration, lumbar region; M51.37 Other intervertebral disc degeneration, lumbosacral region; Z88.5 Allergy status to narcotic agent; Z88.7 Allergy status to serum and vaccine; Z88.8 Allergy status to other drugs, medicaments and biological substances; Z91.040 Latex allergy status; Z88.0 Allergy status to penicillin; Z88.1 Allergy status to other antibiotic agents
CPT/HCPCS: 36415; 80053; 85025; 72110; 72131; 99284; 96374; 96372; J2360; J1170; J7512

== ENCOUNTER 2023-09-05 11:35 | Emergency (ER) | payer MEDICARE ==
--- NOTE | 2023-09-05 12:50 | ED ---
Headache HPI - General Source: patient, RN notes reviewed Mode of arrival: ambulatory Limitations: no limitations <Allan Davenport - Last Filed: 09/05/23 12:49> - General Source: patient, RN notes reviewed Mode of arrival: ambulatory Limitations: no limitations - History of Present Illness MD Complaint: headache, "migraine" <Teagan Gaytan - Last Filed: 09/05/23 15:38> - General Chief Complaint: Headache Stated Complaint: Syncope Time Seen by Provider: 09/05/23 12:49 - History of Present Illness Initial Comments: Quick note: 58-year-old female presented to the ER with chief complaint of a migraine. She also states she has a past medical history of lupus patient underwent lumbar fusion about 5 weeks ago. She states for the past 3 days she has been feeling unwell and nauseous. She had lab work done by Dr. Hassan today. (Allan Davenport) This is a 58-year-old female who presents to the emergency department for a headache. Patient states that this started about 3 days ago. Reports a history of migraines due to an old head injury, but states that she has not had one in a while. States that she thought that this may be due to low potassium, which has been a problem for her in the past. She had her blood work ordered by her PCP and was told that the results were normal. Reports feeling nauseous as well. Requests to have her BNP checked. (Teagan Gaytan) - Related Data Home Medications Medication Instructions Recorded Confirmed Atorvastatin [Lipitor] 40 mg PO HS 09/24/21 08/12/23 Sertraline [Zoloft] 200 mg PO DAILY 09/24/21 08/12/23 Apixaban [Eliquis] 5 mg PO BID 05/29/22 08/12/23 busPIRone HCl [Buspar] 5 mg PO BID 06/11/22 08/12/23 Bumetanide [BUMEX] 2 mg PO DAILY 06/24/22 08/12/23 Fludrocortisone [Florinef] 0.1 mg PO DAILY 09/20/22 08/12/23 Potassium Chloride ER [K-Dur 20] 20 meq PO DAILY 01/12/23 08/12/23 Metoprolol Succinate (ER) [Toprol 50 mg PO HS 02/16/23 08/12/23 XL] rOPINIRole HCL [Requip] 2 mg PO HS 04/28/23 08/12/23 Zonisamide [Zonegran] 100 mg PO Q12HR 07/07/23 08/12/23 Bumetanide [Bumex] 1 mg PO HS 08/12/23 08/12/23 Diphenhydramine 50mg Injection 50 mg IM Q6H PRN 08/12/23 08/12/23 Esomeprazole Magnesium [NexIUM 20 mg PO DAILY 08/12/23 08/12/23 24Hr] Ipratropium Nebulized [Atrovent 0.5 mg INHALATION RT-QID PRN 08/12/23 08/12/23 Nebulized 0.2 MG/ML] Ondansetron Odt [Zofran Odt] 4 mg PO Q8HR PRN 08/12/23 08/12/23 Orphenadrine [Norflex] 100 mg PO BID 08/12/23 08/12/23 Spironolactone [Aldactone] 50 mg PO DAILY 08/12/23 08/12/23 Tiotropium Br/Olodaterol HCl 2 puff INHALATION RT-DAILY 08/12/23 08/12/23 [Stiolto Respimat Inhal [place]] metOLazone [Zaroxolyn] 5 mg PO DAILY PRN 08/12/23 08/12/23 oxyCODONE-APAP 5-325MG [Percocet 1 tab PO Q6H PRN 08/12/23 08/12/23 5-325 mg] Previous Rx's Medication Instructions Recorded Cyclobenzaprine [Flexeril] 5 mg PO TID PRN #15 tablet 03/02/23 Codeine Phosphate/Guaifenesin 5 - 10 ml PO Q4-6H PRN #473 ml 06/13/23 [Codeine Phosphate/Guaifenesin 10-100 mg/5 ml] Aspirin 325 mg PO DAILY tab 06/22/23 Folic Acid 0.5 mg PO DAILY tab 06/22/23 Gabapentin 600 mg PO TID #90 tab 07/15/23 methylPREDNISolone Dose Pack 4 mg PO DIRECTED #21 tab 08/12/23 [Medrol Dose Pack] Allergies Allergy/AdvReac Type Severity Reaction Status Date / Time Penicillins Allergy Severe Anaphylaxis Verified 09/05/23 11:39 vancomycin Allergy Severe Swelling Verified 09/05/23 11:39 in lips albuterol [From Ventolin HFA] Allergy Rapid Verified 09/05/23 11:39 Heart Rate cefepime Allergy Swelling Verified 09/05/23 11:39 clindamycin Allergy Anaphylaxis Verified 09/05/23 11:39 dexamethasone [From Decadron] Allergy severe Verified 09/05/23 11:39 pain, like needles in groin Influenza Virus Vaccines Allergy Anaphylaxis Verified 09/05/23 11:39 latex Allergy Itching Verified 09/05/23 11:39 and swelling morphine Allergy Anaphylaxis Verified 09/05/23 11:39 prochlorperazine Allergy severe Verified 09/05/23 11:39 [From Compazine] anxiety galcanezumab-gnlm AdvReac Confusion, Verified 09/05/23 11:39 [From Emgality Pen] increased blood pressure metoclopramide [From Reglan] AdvReac "felt like Verified 09/05/23 11:39 I needed to jump out of my skin" Review of Systems ROS Other: All systems not noted in ROS Statement are negative. <Allan Davenport - Last Filed: 09/05/23 12:49> ROS Other: All systems not noted in ROS Statement are negative. <Teagan Gaytan - Last Filed: 09/05/23 15:38> ROS Statement: Those systems with pertinent positive or pertinent negative responses have been documented in the HPI. 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 for low K+. lupus, valve replacement x2 Last Myocardial Infarction Date:: 08/30/2018 History of Any Multi-Drug Resistant Organisms: C-DIFF Date of last positivie culture/infection: 03/02/23 MDRO Source:: Stool Past Surgical History: Back Surgery, Breast Surgery, Cardiac Valve Replacement, Section, Cholecystectomy, Heart Catheterization, Hysterectomy, Pacemaker Additional Past Surgical History / Comment(s): pacemaker d/t bradycardia/hypotension with last one place in 2014 in [place], [place], 3 lower back surgeries, bilateral breast reduction. 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. lamenectomy Past Anesthesia/Blood Transfusion Reactions: No Reported Reaction Additional Past Anesthesia/Blood Transfusion Reaction / Comment(s): blood transfusion no issues Type of Cardiac Device: Permanent Pacemaker, Unknown Device Placement Date:: 2012 Past Psychological History: Anxiety Smoking Status: Never smoker Past Alcohol Use History: None Reported Past Drug Use History: None Reported - Past Family History Mother Additional Family Medical History / Comment(s): Mother at the age of 49 yrs after surgery for silicon breast implants with a leak that caused ARDS and DIC per pt (fibroid cysts) Father Family Medical History: Cancer, Hyperlipidemia, Hypertension Additional Family Medical History / Comment(s): Father is a colon cancer survivor. <Allan Davenport - Last Filed: 09/05/23 12:49> General Exam Limitations: no limitations <Allan Davenport - Last Filed: 09/05/23 12:49> Limitations: no limitations General appearance: alert, in no apparent distress Head exam: Present: atraumatic, normocephalic, normal inspection Eye exam: Present: normal appearance, PERRL, EOMI. Absent: scleral icterus, conjunctival injection, periorbital swelling Respiratory exam: Present: normal lung sounds bilaterally. Absent: respiratory distress, wheezes, rales, rhonchi, stridor Cardiovascular Exam: Present: regular rate, normal rhythm, normal heart sounds. Absent: systolic murmur, diastolic murmur, rubs, gallop, clicks GI/Abdominal exam: Present: soft, normal bowel sounds. Absent: distended, tenderness, guarding, rebound, rigid Neurological exam: Present: alert, oriented X3, CN II-XII intact Psychiatric exam: Present: normal affect, normal mood Skin exam: Present: warm, dry, intact, normal color. Absent: rash <Teagan Gaytan - Last Filed: 09/05/23 15:38> - General Exam Comments Initial Comments: Visual Physical Exam Vital signs reviewed General: Well-appearing, nontoxic, no acute distress. Head: Normocephalic, atraumatic Eyes: PERRLA, EOMI ENT: Airway patent Chest: Nonlabored breathing Skin: No visual rash, normal skin tone Neuro: Alert and oriented 3 Musculoskeletal: No gross abnormalities (Allan Davenport) Course Vital Signs 09/05/23 09/05/23 11:37 15:29 Temperature 97.7 F 98 F Pulse Rate 79 70 Respiratory 20 18 Rate Blood Pressure 130/67 119/77 O2 Sat by Pulse 99 93 L Oximetry Medical Decision Making <Allan Davenport - Last Filed: 09/05/23 12:49> - Lab Data Result diagrams: 09/05/23 14:00 <Teagan Gaytan - Last Filed: 09/05/23 15:38> - Medical Decision Making I performed the quick note portion of this chart. Electronically signed by Allan Davenport PA-C (Allan Davenport) This is a 58-year-old female who presents to the emergency department for headache. Was pt. sent in by a medical professional or institution? @ -No Did you speak to anyone other than the patient for history? @ -No Did you review nursing and triage notes? @ -Yes, and I agree, it is accurate with regards to the patient's symptoms. Were old charts reviewed? @ -BMP obtained earlier today demonstrating normal potassium and stable renal function. Differential Diagnosis? @ -Differential Headache: Migraine, tension, cluster, carbon monoxide, central venous thrombosis, pension karma temporal arteritis, acute closure glaucoma, intercranial hemorrhage, mastoiditis, sinusitis, head injury, this is not meant to be an all-inclusive list. EKG interpreted by me (3pts min.)? @ -Not obtained X-rays interpreted by me (1pt min.)? @ -Not obtained CT interpreted by me (1pt min.)? @ -Not obtained U/S interpreted by me (1pt. min.)? @ -Not obtained What testing was considered but not performed? (CT, X-rays, U/S, labs)? Why? @ -None What meds were considered but not given? Why? @ -None Did you discuss the management of the patient with other professionals? @ -No Did you reconcile home meds? @ -No Was smoking cessation discussed for >3mins.? @ -No Was critical care preformed (if so, how long)? @ -No Were there social determinants of health that impacted care today? How? (Homelessness, low income, unemployed, alcoholism, drug addiction, transportation, low edu. Level, literacy, decrease access to med. care, residential, rehab)? @ -No Was there de-escalation of care discussed even if they declined? (Discuss DNR or withdrawal of care, Hospice)? @ -No What co-morbidities impacted this encounter? (DM, HTN, Smoking, COPD, CAD, Cancer, CVA, Hep., AIDS, mental health diagnosis, sleep apnea, morbid obesity)? @ -Renal disease, seizure disorder, lupus Was patient admitted / discharged? @ -Discharged. Lab work obtained earlier today was reviewed and found to be unremarkable. Patient was concerned about her potassium which was WNL at 4.3. Renal function stable. Lab work ordered here included a CBC which was unremarkable. BNP ordered as well per the patient's request which was WNL at 463. COVID, influenza, and RSV testing negative. Symptoms well controlled in the emergency department and she requested discharge home. Advised follow up with her PCP. Undiagnosed new problem with uncertain prognosis? @ -None Drug Therapy requiring intensive monitoring for toxicity (Heparin, Nitro, Insulin, Cardizem)? @ -None Were any procedures done? @ -None Diagnosis/symptom? @ -Headache Acute, or Chronic, or Acute on Chronic? @ -Acute Uncomplicated (without systemic symptoms) or Complicated (systemic symptoms)? @ -Uncomplicated Side effects of treatment? @ -None Exacerbation, Progression, or Severe Exacerbation] @ -Not applicable Poses a threat to life or bodily function? @ -No Return precautions reviewed in depth, the patient is instructed to return to the emergency department with any new, worsening, or concerning symptoms. Patient ve rbalized understanding. This case was discussed in detail with the attending ED physician, Dr. Krishnan. Presentation, findings, and treatment plan discussed in detail as well. (Teagan Gaytan) - Lab Data Lab Results 09/05/23 09/05/23 09/05/23 Range/Units 14:00 14:00 14:13 WBC 7.5 (3.8-10.6) k/uL RBC 4.12 (3.80-5.40) m/uL Hgb 10.8 L (11.4-16.0) gm/dL Hct 34.5 (34.0-46.0) % MCV 83.7 (80.0-100.0) fL MCH 26.3 (25.0-35.0) pg MCHC 31.4 (31.0-37.0) g/dL RDW 15.4 (11.5-15.5) % Plt Count 291 (150-450) k/uL MPV 7.8 Neutrophils % 77 % Lymphocytes % 13 % Monocytes % 5 % Eosinophils % 3 % Basophils % 0 % Neutrophils # 5.8 (1.3-7.7) k/uL Lymphocytes # 1.0 (1.0-4.8) k/uL Monocytes # 0.4 (0-1.0) k/uL Eosinophils # 0.2 (0-0.7) k/uL Basophils # 0.0 (0-0.2) k/uL Hypochromasia Slight Troponin I <0.012 (0.000-0.034) ng/mL NT-Pro-B Natriuret Pep 463 pg/mL Influenza Type A (PCR) (Not Detectd) Influenza Type B (PCR) (Not Detectd) RSV (PCR) (Not Detectd) SARS-CoV-2 (PCR) (Not Detectd) 09/05/23 Range/Units 14:17 WBC (3.8-10.6) k/uL RBC (3.80-5.40) m/uL Hgb (11.4-16.0) gm/dL Hct (34.0-46.0) % MCV (80.0-100.0) fL MCH (25.0-35.0) pg MCHC (31.0-37.0) g/dL RDW (11.5-15.5) % Plt Count (150-450) k/uL MPV Neutrophils % % Lymphocytes % % Monocytes % % Eosinophils % % Basophils % % Neutrophils # (1.3-7.7) k/uL Lymphocytes # (1.0-4.8) k/uL Monocytes # (0-1.0) k/uL Eosinophils # (0-0.7) k/uL Basophils # (0-0.2) k/uL Hypochromasia Troponin I (0.000-0.034) ng/mL NT-Pro-B Natriuret Pep pg/mL Influenza Type A (PCR) Not Detected (Not Detectd) Influenza Type B (PCR) Not Detected (Not Detectd) RSV (PCR) Not Detected (Not Detectd) SARS-CoV-2 (PCR) Not Detected (Not Detectd) Disposition <Allan Davenport - Last Filed: 09/05/23 12:49> Is patient prescribed a controlled substance at d/c from ED?: No Time of Disposition: 15:15 <Teagan Gaytan - Last Filed: 09/05/23 15:38> Clinical Impression: Migraine headache Disposition: HOME SELF-CARE Instructions (If sedation given, give patient instructions): Acute Headache (ED) Additional Instructions: Return to the emergency department with any new, worsening, or concerning symptoms. Follow up with your primary care provider in 1-2 days. Referrals: Franklin Hassan MD [Primary Care Provider] - 1-2 days
[2023-09-05] MEDS: SODIUM CHLORIDE 0.9% 1,000 ML IV STA (14:05)
[2023-09-05] MEDS: KETOROLAC 15 MG/ML 1 ML VIAL IVP STA (14:06)
[2023-09-05] MEDS: HYDROmorphone 1 MG/ML 1 ML SYRINGE IVP STA (14:06)
[2023-09-05] MEDS: ONDANSETRON 4 MG/2 ML VIAL IVP STA (14:07)
[2023-09-05] MEDS: diphenhydrAMINE 50 MG/ML 1 ML VIAL IVP STA (14:07)
[2023-09-05 14:12] LABS: Basophils % (A) 0 %; Eosinophils # (A) 0.2 k/uL (0-0.7); Eosinophils % (A) 3 %; HCT 34.5 % (34.0-46.0); HGB 10.8 gm/dL (11.4-16.0); Hypochromasia Slight; Lymphocytes % (A) 13 %; MCH 26.3 pg (25.0-35.0); MCHC 31.4 g/dL (31.0-37.0); MCV 83.7 fL (80.0-100.0); Mean Platelet Volume 7.8; Monocytes # (A) 0.4 k/uL (0-1.0); Monocytes % (A) 5 %; Neutrophils # (A) 5.8 k/uL (1.3-7.7); Neutrophils % (A) 77 %; Platelet Count 291 k/uL (150-450); RBC 4.12 m/uL (3.80-5.40); RDW 15.4 % (11.5-15.5); WBC 7.5 k/uL (3.8-10.6)
[2023-09-05] MEDS: ONDANSETRON 4 MG ODT STARTER PACK 2 TAB BTL PO STA (15:21)
[2023-09-05 16:08] VITALS: BP 119/77; PULSE 70; RESP 18; TEMP 98
== END 2023-09-05 15:31 | disposition home or self-care (01) ==
LOC: EC 11:35
DX: G43.909 Migraine, unspecified, not intractable, without status migrainosus (principal); G40.909 Epilepsy, unspecified, not intractable, without status epilepticus; N18.30 Chronic kidney disease, stage 3 unspecified; Z79.899 Other long term (current) drug therapy; Z88.0 Allergy status to penicillin; Z91.040 Latex allergy status
CPT/HCPCS: 36415; 83880; 84484; 85025; 87636; 99284; 96374; 96375 ×2; 96361; J1200; J2405; J1170; S0119

== ENCOUNTER → 2023-09-05 | Outpatient (CLI) | payer MEDICARE ==
[2023-09-05 12:30] LABS: African American GFR (CKD) 49 (>60 ml/min/1.73 sqM); Anion Gap 8 mmol/L; Blood Urea Nitrogen 22 mg/dL (7-17); Carbon Dioxide 23 mmol/L (22-30); Chloride 108 mmol/L (98-107); Non-African American GFR(CKD) 43 (>60 ml/min/1.73 sqM); Sodium 139 mmol/L (137-145)
[2023-09-05 12:31] LABS: Potassium 4.3 mmol/L (3.5-5.1)
== END | disposition home or self-care (01) ==
LOC: LABWHC1 11:14
PROVIDERS: ATTEND Family Medicine
DX: I50.9 Heart failure, unspecified (principal); E27.40 Unspecified adrenocortical insufficiency
CPT/HCPCS: 36416; 80051; 82565; 84520

== ENCOUNTER 2023-10-15 02:45 | Emergency (ER) | payer MEDICARE ==
[2023-10-15 03:17] VITALS: TEMP 97.9
[2023-10-15 03:42] LABS: Basophils % (A) 0 %; Eosinophils # (A) 0.3 k/uL (0-0.7); Eosinophils % (A) 4 %; HCT 41.1 % (34.0-46.0); HGB 12.5 gm/dL (11.4-16.0); Hypochromasia Moderate; Lymphocytes # (A) 1.5 k/uL (1.0-4.8); Lymphocytes % (A) 18 %; MCH 25.3 pg (25.0-35.0); MCHC 30.3 g/dL (31.0-37.0); MCV 83.4 fL (80.0-100.0); Monocytes # (A) 0.5 k/uL (0-1.0); Monocytes % (A) 6 %; Neutrophils # (A) 5.9 k/uL (1.3-7.7); Neutrophils % (A) 70 %; Platelet Count 319 k/uL (150-450); RBC 4.93 m/uL (3.80-5.40); RDW 15.4 % (11.5-15.5); WBC 8.4 k/uL (3.8-10.6)
[2023-10-15 04:08] LABS: ALT 20 U/L (4-34); AST 26 U/L (14-36); African American GFR (CKD) 44 (>60 ml/min/1.73 sqM); Albumin 4.5 g/dL (3.5-5.0); Alkaline Phosphatase 91 U/L (38-126); Amylase 99 U/L (30-110); Anion Gap 7 mmol/L; Blood Urea Nitrogen 27 mg/dL (7-17); Calcium 9.9 mg/dL (8.4-10.2); Carbon Dioxide 25 mmol/L (22-30); Chloride 108 mmol/L (98-107); Glucose 100 mg/dL (74-99); Lipase 209 U/L (23-300); Non-African American GFR(CKD) 39 (>60 ml/min/1.73 sqM); Potassium 4.3 mmol/L (3.5-5.1); Sodium 140 mmol/L (137-145); Total Bilirubin 0.4 mg/dL (0.2-1.3); Total Protein 7.2 g/dL (6.3-8.2)
[2023-10-15] MEDS: ONDANSETRON 4 MG/2 ML VIAL IVP STA (05:39)
[2023-10-15] MEDS: KETOROLAC 15 MG/ML 1 ML VIAL IVP STA (05:42)
[2023-10-15] MEDS: HYDROmorphone 0.5 MG/0.5 ML SYRINGE IVP STA ×2 (06:01→08:24)
[2023-10-15 06:08] VITALS: RESP 18
[2023-10-15 06:25] LABS: Appearance,Urine Clear (Clear); Bacteria,Urine Rare /hpf; Bilirubin,Urine Negative (Negative); Blood,Urine Negative (Negative); Color,Urine Colorless; Glucose,Urine (UA) Negative (Negative); Hyaline Casts,Urine 38 /lpf (0-2); Ketones,Urine Negative (Negative); Leukocyte Esterase,Urine Small (Negative); Mucus,Urine Rare /hpf; Nitrite,Urine Negative (Negative); Protein,Urine Negative (Negative); RBC,Urine <1 /hpf (0-5); Specific Gravity,Urine 1.015 (1.001-1.035); Squamous Epithelial Cell,Urine 1 /hpf (0-4); Urobilinogen,Urine <2.0 mg/dL (<2.0); WBC,Urine 5 /hpf (0-5)
--- NOTE | 2023-10-15 08:13 | ED ---
Abdominal Pain HPI - General Chief Complaint: Abdominal Pain Stated Complaint: Kidney stones Time Seen by Provider: 10/15/23 05:05 Source: patient Mode of arrival: ambulatory Limitations: no limitations - History of Present Illness Initial Comments: Patient is a 58-year-old woman who states that she has history of only 1 functional kidney, that is on the left side, and that she started to experience left-sided flank pain. The patient is concerned that she may be having stone she has history of kidney stone previously. She has had some associated nausea. Patient denies change in urination or bowel movements. She has not noted fever or chills. MD Complaint: abdominal pain -: hour(s) Location: L flank Radiation: none Migration to: no migration Severity: severe Quality: sharp Consistency: constant Improves With: nothing Worsens With: nothing Associated Symptoms: nausea - Related Data Home Medications Medication Instructions Recorded Confirmed Atorvastatin [Lipitor] 40 mg PO HS 09/24/21 08/12/23 Sertraline [Zoloft] 200 mg PO DAILY 09/24/21 08/12/23 Apixaban [Eliquis] 5 mg PO BID 05/29/22 08/12/23 busPIRone HCl [Buspar] 5 mg PO BID 06/11/22 08/12/23 Bumetanide [BUMEX] 2 mg PO DAILY 06/24/22 08/12/23 Fludrocortisone [Florinef] 0.1 mg PO DAILY 09/20/22 08/12/23 Potassium Chloride ER [K-Dur 20] 20 meq PO DAILY 01/12/23 08/12/23 Metoprolol Succinate (ER) [Toprol 50 mg PO HS 02/16/23 08/12/23 XL] rOPINIRole HCL [Requip] 2 mg PO HS 04/28/23 08/12/23 Zonisamide [Zonegran] 100 mg PO Q12HR 07/07/23 08/12/23 Bumetanide [Bumex] 1 mg PO HS 08/12/23 08/12/23 Diphenhydramine 50mg Injection 50 mg IM Q6H PRN 08/12/23 08/12/23 Esomeprazole Magnesium [NexIUM 20 mg PO DAILY 08/12/23 08/12/23 24Hr] Ipratropium Nebulized [Atrovent 0.5 mg INHALATION RT-QID PRN 08/12/23 08/12/23 Nebulized 0.2 MG/ML] Ondansetron Odt [Zofran Odt] 4 mg PO Q8HR PRN 08/12/23 08/12/23 Orphenadrine [Norflex] 100 mg PO BID 08/12/23 08/12/23 Spironolactone [Aldactone] 50 mg PO DAILY 08/12/23 08/12/23 Tiotropium Br/Olodaterol HCl 2 puff INHALATION RT-DAILY 08/12/23 08/12/23 [Stiolto Respimat Inhal [place]] metOLazone [Zaroxolyn] 5 mg PO DAILY PRN 08/12/23 08/12/23 oxyCODONE-APAP 5-325MG [Percocet 1 tab PO Q6H PRN 08/12/23 08/12/23 5-325 mg] Previous Rx's Medication Instructions Recorded Cyclobenzaprine [Flexeril] 5 mg PO TID PRN #15 tablet 03/02/23 Codeine Phosphate/Guaifenesin 5 - 10 ml PO Q4-6H PRN #473 ml 06/13/23 [Codeine Phosphate/Guaifenesin 10-100 mg/5 ml] Aspirin 325 mg PO DAILY tab 06/22/23 Folic Acid 0.5 mg PO DAILY tab 06/22/23 Gabapentin 600 mg PO TID #90 tab 07/15/23 methylPREDNISolone Dose Pack 4 mg PO DIRECTED #21 tab 08/12/23 [Medrol Dose Pack] Allergies Allergy/AdvReac Type Severity Reaction Status Date / Time Penicillins Allergy Severe Anaphylaxis Verified 09/05/23 11:39 vancomycin Allergy Severe Swelling Verified 09/05/23 11:39 in lips albuterol [From Ventolin HFA] Allergy Rapid Verified 09/05/23 11:39 Heart Rate cefepime Allergy Swelling Verified 09/05/23 11:39 clindamycin Allergy Anaphylaxis Verified 09/05/23 11:39 dexamethasone [From Decadron] Allergy severe Verified 09/05/23 11:39 pain, like needles in groin Influenza Virus Vaccines Allergy Anaphylaxis Verified 09/05/23 11:39 latex Allergy Itching Verified 09/05/23 11:39 and swelling morphine Allergy Anaphylaxis Verified 09/05/23 11:39 prochlorperazine Allergy severe Verified 09/05/23 11:39 [From Compazine] anxiety [id number]-gnlm AdvReac Confusion, Verified 09/05/23 11:39 [From Emgality Pen] increased blood pressure metoclopramide [From Reglan] AdvReac "felt like Verified 09/05/23 11:39 I needed to jump out of my skin" Review of Systems ROS Statement: Those systems with pertinent positive or pertinent negative responses have been documented in the HPI. ROS Other: All systems not noted in ROS Statement are negative. Constitutional: Denies: fever, chills, weakness Respiratory: Denies: cough, dyspnea Cardiovascular: Denies: chest pain, palpitations, edema Gastrointestinal: Reports: abdominal pain (Flank), nausea. 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 for low K+. lupus, valve replacement x2 Last Myocardial Infarction Date:: 08/30/2018 History of Any Multi-Drug Resistant Organisms: C-DIFF Date of last positivie culture/infection: 03/02/23 MDRO Source:: Stool Past Surgical History: Back Surgery, Breast Surgery, Cardiac Valve Replacement, Section, Cholecystectomy, Heart Catheterization, Hysterectomy, Pacemaker Additional Past Surgical History / Comment(s): pacemaker d/t bradycardia/hypotension with last one place in 2013 in [place], [place], 3 lower back surgeries, bilateral breast reduction. 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. lamenectomy Past Anesthesia/Blood Transfusion Reactions: No Reported Reaction Additional Past Anesthesia/Blood Transfusion Reaction / Comment(s): blood transfusion no issues Type of Cardiac Device: Permanent Pacemaker, Unknown Device Placement Date:: 2012 Past Psychological History: Anxiety Smoking Status: Never smoker Past Alcohol Use History: None Reported Past Drug Use History: None Reported - Past Family History Mother Additional Family Medical History / Comment(s): Mother at the age of 49 yrs after surgery for silicon breast implants with a leak that caused ARDS and DIC per pt (fibroid cysts) Father Family Medical History: Cancer, Hyperlipidemia, Hypertension Additional Family Medical History / Comment(s): Father is a colon cancer survivor. General Exam Limitations: no limitations General appearance: alert, in no apparent distress Head exam: Present: atraumatic, normocephalic Eye exam: Present: normal appearance. Absent: scleral icterus, conjunctival injection ENT exam: Present: normal oropharynx Neck exam: Present: normal inspection Respiratory exam: Present: normal lung sounds bilaterally. Absent: respiratory distress, wheezes, rales, rhonchi, stridor, accessory muscle use Cardiovascular Exam: Present: regular rate, normal rhythm, normal heart sounds. Absent: systolic murmur, diastolic murmur, rubs, gallop GI/Abdominal exam: Present: soft. Absent: distended, tenderness, guarding, rebound, rigid, mass Extremities exam: Present: normal inspection, normal capillary refill. Absent: pedal edema, calf tenderness Back exam: Present: normal inspection, full ROM, CVA tenderness (L). Absent: CVA tenderness (R) Neurological exam: Present: alert Skin exam: Present: warm, dry, intact, normal color. Absent: rash Course Vital Signs 10/15/23 10/15/23 10/15/23 03:14 05:17 06:08 Temperature 97.9 F Pulse Rate 69 70 90 Respiratory 16 18 18 Rate Blood Pressure 95/67 105/64 91/60 O2 Sat by Pulse 96 97 97 Oximetry 10/15/23 08:54 Temperature 97.9 F Pulse Rate 85 Respiratory 18 Rate Blood Pressure 105/70 O2 Sat by Pulse 97 Oximetry Medical Decision Making - Medical Decision Making The patient had CT scan of the abdomen and pelvis I interpreted as negative for obstruction or free air. No acute surgical condition. No kidney stone definitely identified. No hydronephrosis Was pt. sent in by a medical professional or institution (, PA, SERVICE MEMBER, urgent care, hospital, or custodial...) When possible be specific @ -[No] Did you speak to anyone other than the patient for history (EMS, parent, family, police, friend...)? What history was obtained from this source @ -[No] Did you review nursing and triage notes (agree or disagree)? Why? @ -[I reviewed and agree with nursing and triage notes] Were old charts reviewed (outside hosp., previous admission, EMS record, old EKG, old radiological studies, urgent care reports/EKG's, custodial records)? Report findings @ -[No old charts were reviewed] Differential Diagnosis (chest pain, altered mental status, abdominal pain women, abdominal pain men, vaginal bleeding, weakness, fever, dyspnea, syncope, headache, dizziness, GI bleed, back pain, seizure, CVA, palpatations, mental health, musculoskeletal)? @ -[Differential Abdominal Pain Women: Appendicitis, Cholecystitis, diverticulosis, ischemic bowel, pancreatitis, hepatitis, UTI, gastroenteritis, AAA, incarcerated hernia, bowel obstruction, constipation, inflammatory bowel, hepatitis, peptic ulcer disease, splenic infarction, perforated viscus, vulvitis, ovarian torsion, PID, kidney stone, placenta abruption, this is not meant to be an all-inclusive list EKG interpreted by me (3pts min.). @ -[As above] X-rays interpreted by me (1pt min.). @ -[None done] CT interpreted by me (1pt min.). @ -I interpreted as above U/S interpreted by me (1pt. min.). @ -[None done] What testing was considered but not performed or refused? (CT, X-rays, U/S, labs)? Why? @ -[None] What meds were considered but not given or refused? Why? @ -[None] Did you discuss the management of the patient with other professionals (professionals i.e. DrMaria Teresa, PA, SERVICE MEMBER, lab, RT, psych nurse, social service manager, oncology consultant, teacher, contact officer, case preparer and liner)? Give summary @ -[No] Was smoking cessation discussed for >3mins.? @ -[No] Was critical care preformed (if so, how long)? @ -[No] Were there social determinants of health that impacted care today? How? (Homelessness, low income, unemployed, alcoholism, drug addiction, transportation, low edu. Level, literacy, decrease access to med. care, alf, rehab)? @ -[No] Was there de-escalation of care discussed even if they declined (Discuss DNR or withdrawal of care, Hospice)? DNR status @ -[No] What co-morbidities impacted this encounter? (DM, HTN, Smoking, COPD, CAD, Cancer, CVA, ARF, Chemo, Hep., AIDS, mental health diagnosis, sleep apnea, morbid obesity)? @ -[None] Was patient admitted / discharged? Hospital course, mention meds given and route, prescriptions, significant lab abnormalities, going to OR and other p ertinent info. @ -[Patient is 58-year-old woman presenting with flank pain that she states is similar to previous kidney stone. Given that she has 1 kidney there is workup performed including CT which does not reveal definite etiology. The patient's creatinine falls within her historical norms. The patient's urine does show a few white cells, but not suggestive of pyelonephritis. Culture will be sent and patient to have close follow-up with her primary physician. We discussed return parameters, appropriate further care and follow-up. Undiagnosed new problem with uncertain prognosis? @ -[No] Drug Therapy requiring intensive monitoring for toxicity (Heparin, Nitro, Insulin, Cardizem)? @ -[No] Were any procedures done? @ -[No] Diagnosis/symptom? @ -[Acute flank pain Acute, or Chronic, or Acute on Chronic? @ -[Acute Uncomplicated (without systemic symptoms) or Complicated (systemic symptoms)? @ -[Uncomplicated Side effects of treatment? @ -[No] Exacerbation, Progression, or Severe Exacerbation? @ -[No] Poses a threat to life or bodily function? How? (Chest pain, [place], [place], pneumonia, PE, COPD, DKA, ARF, appy, cholecystitis, CVA, Diverticulitis, Homicidal, Suicidal, threat to staff... and all critical care pts) @ -[No] - Lab Data Result diagrams: 10/15/23 03:30 10/15/23 03:30 Lab Results 10/15/23 10/15/23 10/15/23 Range/Units 03:30 03:30 06:03 WBC 8.4 (3.8-10.6) k/uL RBC 4.93 (3.80-5.40) m/uL Hgb 12.5 (11.4-16.0) gm/dL Hct 41.1 (34.0-46.0) % MCV 83.4 (80.0-100.0) fL MCH 25.3 (25.0-35.0) pg MCHC 30.3 L (31.0-37.0) g/dL RDW 15.4 (11.5-15.5) % Plt Count 319 (150-450) k/uL MPV 9.0 Neutrophils % 70 % Lymphocytes % 18 % Monocytes % 6 % Eosinophils % 4 % Basophils % 0 % Neutrophils # 5.9 (1.3-7.7) k/uL Lymphocytes # 1.5 (1.0-4.8) k/uL Monocytes # 0.5 (0-1.0) k/uL Eosinophils # 0.3 (0-0.7) k/uL Basophils # 0.0 (0-0.2) k/uL Hypochromasia Moderate Sodium 140 (137-145) mmol/L Potassium 4.3 (3.5-5.1) mmol/L Chloride 108 H (98-107) mmol/L Carbon Dioxide 25 (22-30) mmol/L Anion Gap 7 mmol/L BUN 27 H (7-17) mg/dL Creatinine 1.48 H (0.52-1.04) mg/dL Est GFR (CKD-EPI)AfAm 44 (>60 ml/min/1.73 sqM) Est GFR (CKD-EPI)NonAf 39 (>60 ml/min/1.73 sqM) Glucose 100 H (74-99) mg/dL Calcium 9.9 (8.4-10.2) mg/dL Total Bilirubin 0.4 (0.2-1.3) mg/dL AST 26 (14-36) U/L ALT 20 (4-34) U/L Alkaline Phosphatase 91 (38-126) U/L Total Protein 7.2 (6.3-8.2) g/dL Albumin 4.5 (3.5-5.0) g/dL Amylase 99 (30-110) U/L Lipase 209 (23-300) U/L Urine Color Colorless Urine Appearance Clear (Clear) Urine pH 5.0 (5.0-8.0) Ur Specific [place] 1.015 (1.001-1.035) Urine Protein Negative (Negative) Urine Glucose (UA) Negative (Negative) Urine Ketones Negative (Negative) Urine Blood Negative (Negative) Urine Nitrite Negative (Negative) Urine Bilirubin Negative (Negative) Urine Urobilinogen <2.0 (<2.0) mg/dL Ur Leukocyte Esterase Small H (Negative) Urine RBC <1 (0-5) /hpf Urine WBC 5 (0-5) /hpf Urine WBC Clumps Rare H (None) /hpf Ur Squamous Epith Cells 1 (0-4) /hpf Urine Bacteria Rare H (None) /hpf Hyaline Casts 38 H (0-2) /lpf Urine Mucus Rare H (None) /hpf Disposition Clinical Impression: Flank pain Disposition: HOME SELF-CARE Condition: Good Instructions (If sedation given, give patient instructions): Flank Pain (ED) Is patient prescribed a controlled substance at d/c from ED?: No Referrals: Franklin Hassan MD [Primary Care Provider] - 1-2 days
--- NOTE | 2023-10-15 08:20 | CT ---
EXAMINATION TYPE: CT abdomen pelvis wo con CT DLP: 537.1 mGycm, Automated exposure control for dose reduction was used. DATE OF EXAM: 10/15/2023 6:20 AM COMPARISON: None. CLINICAL INDICATION:Female, 58 years old with history of L flank pain; left flank pain TECHNIQUE: Axial CT of the abdomen and pelvis. Sagittal and coronal reformats were created on a [employer] workstation. Contrast used: mL of , (none if empty) Oral contrast used: without Oral Contrast (none if empty) FINDINGS: LOWER CHEST: Mild widening of the AP dimension of the lungs can be seen with COPD. There are scattere d areas of basilar parenchymal and subpleural scarring. No acute infiltrates. Heart is partially seen , appears enlarged. There is radiodensity with significant artifacts likely valvular prosthesis at th e tricuspid valve. Small pericardial effusion. Mild to moderate circumferentially thickened appearanc e of the distal esophageal wall. ABDOMEN LIVER: Small hypodensity anteriorly, likely benign. Otherwise unremarkable. GALLBLADDER AND BILE DUCTS: The gallbladder is surgically absent. Biliary tree does not appear pathol ogically dilated. PANCREAS: Unremarkable. SPLEEN: Presumed splenule posteriorly. Otherwise unremarkable. ADRENAL GLANDS: Unremarkable. KIDNEYS AND URETERS: Moderate to severe right renal atrophy. 1-2 mm calculus towards the upper pole. On the left, there is a 4 mm calculus in the interpolar region. I see no ureteral calculi or hydronep hrosis bilaterally. PELVIS BLADDER: Unremarkable REPRODUCTIVE: Organs appear absent ABDOMEN & PELVIS STOMACH AND BOWEL: Stomach and small bowel are nondistended, no evidence of obstruction. The append ix is not seen with certainty but there is no inflammatory process seen in the pericecal region. Mod erate stool throughout the colon without acute abnormality detected. There are scattered diverticula seen. PERITONEUM/RETROPERITONEUM: No evidence of pneumoperitoneum or free fluid. VASCULATURE: Mild atherosclerotic calcifications are present throughout the abdominal aorta and its b ranches. No evidence of aortic aneurysm. LYMPH NODES: No enlarged nodes by CT size criteria. SOFT TISSUE/ABDOMINAL WALL: Unremarkable MUSCULOSKELETAL: Generalized osteopenia. No acute abnormalities detected. Bilateral pedicle screws an d posterior fixation rods [id number], with the inferior most screws extending across the SI joint s into the iliac bones bilaterally. Accompanying post laminectomy changes. Canal otherwise not well a ssessed on this exam. The hardware appears grossly unremarkable. IMPRESSION: 1. Moderate to severe right renal atrophy. 2. Bilateral small nephrolithiasis, without evidence of ureteral calculi or hydronephrosis 3. Mild to moderate circumferentially thickened appearance of the distal esophageal wall, nonspecifi c. Could be from esophagitis.
[2023-10-15] MEDS: HYDROmorphone 1 MG/ML 1 ML SYRINGE IVP STA (08:24)
[2023-10-15 08:55] VITALS: BP 105/70; PULSE 85
== END 2023-10-15 08:59 | disposition home or self-care (01) ==
LOC: EC 02:45
DX: R10.9 Unspecified abdominal pain (principal); Z88.0 Allergy status to penicillin; Z88.1 Allergy status to other antibiotic agents; Z88.7 Allergy status to serum and vaccine; Z88.8 Allergy status to other drugs, medicaments and biological substances; Z91.040 Latex allergy status; Z90.49 Acquired absence of other specified parts of digestive tract; Z95.0 Presence of cardiac pacemaker
CPT/HCPCS: 36415; 80053; 82150; 83690; 85025; 81001; 74176; 99284; 96374; 96376; 96375; J2405; J1170 ×2

== ENCOUNTER → 2023-10-28 | Outpatient (CLI) | payer MEDICARE ==
[2023-10-28 13:55] LABS: African American GFR (CKD) 44 (>60 ml/min/1.73 sqM); Anion Gap 15 mmol/L; Blood Urea Nitrogen 37 mg/dL (7-17); Calcium 10.2 mg/dL (8.4-10.2); Carbon Dioxide 26 mmol/L (22-30); Chloride 98 mmol/L (98-107); Glucose 139 mg/dL (74-99); Non-African American GFR(CKD) 39 (>60 ml/min/1.73 sqM); Potassium 4.1 mmol/L (3.5-5.1); Sodium 139 mmol/L (137-145)
[2023-10-28 14:00] LABS: NT-Pro-B-Type Natriuretic Pept 430 pg/mL
[2023-10-28 15:40] LABS: Anisocytosis Slight; HCT 48.3 % (34.0-46.0); HGB 14.8 gm/dL (11.4-16.0); MCH 25.6 pg (25.0-35.0); MCHC 30.6 g/dL (31.0-37.0); MCV 83.6 fL (80.0-100.0); Mean Platelet Volume 9.9; Platelet Count 333 k/uL (150-450); RBC 5.78 m/uL (3.80-5.40); RDW 16.7 % (11.5-15.5); WBC 8.7 k/uL (3.8-10.6)
== END | disposition home or self-care (01) ==
LOC: LABWHC1 12:58
PROVIDERS: ATTEND Family Medicine
DX: M32.9 Systemic lupus erythematosus, unspecified (principal)
CPT/HCPCS: 36415; 80048; 83880; 85027

== ENCOUNTER 2023-11-06 23:11 | Emergency (ER) | payer BC, MEDICARE ==
[2023-11-06 23:29] VITALS: TEMP 98.8
--- NOTE | 2023-11-07 00:47 | ED ---
General Adult HPI - General Chief complaint: Extremity Problem,Nontraumatic Stated complaint: Left leg swelling possible blood clot in left leg Time Seen by Provider: 11/06/23 23:43 Source: patient, RN notes reviewed, old records reviewed Mode of arrival: ambulatory Limitations: no limitations - History of Present Illness Initial comments: 58-year-old female presenting with left leg pain and swelling. Concern for DVT. Patient does admit that she was doing a significant amount of yard work and gardening and believes she may have overdone it. She is concerned for DVT. No chest pain. No difficulty breathing. - Related Data Home Medications Medication Instructions Recorded Confirmed Atorvastatin [Lipitor] 40 mg PO HS 09/24/21 08/12/23 Sertraline [Zoloft] 200 mg PO DAILY 09/24/21 08/12/23 Apixaban [Eliquis] 5 mg PO BID 05/29/22 08/12/23 busPIRone HCl [Buspar] 5 mg PO BID 06/11/22 08/12/23 Bumetanide [BUMEX] 2 mg PO DAILY 06/24/22 08/12/23 Fludrocortisone [Florinef] 0.1 mg PO DAILY 09/20/22 08/12/23 Potassium Chloride ER [K-Dur 20] 20 meq PO DAILY 01/12/23 08/12/23 Metoprolol Succinate (ER) [Toprol 50 mg PO HS 02/16/23 08/12/23 XL] rOPINIRole HCL [Requip] 2 mg PO HS 04/28/23 08/12/23 Zonisamide [Zonegran] 100 mg PO Q12HR 07/07/23 08/12/23 Bumetanide [Bumex] 1 mg PO HS 08/12/23 08/12/23 Diphenhydramine 50mg Injection 50 mg IM Q6H PRN 08/12/23 08/12/23 Esomeprazole Magnesium [NexIUM 20 mg PO DAILY 08/12/23 08/12/23 24Hr] Ipratropium Nebulized [Atrovent 0.5 mg INHALATION RT-QID PRN 08/12/23 08/12/23 Nebulized 0.2 MG/ML] Ondansetron Odt [Zofran Odt] 4 mg PO Q8HR PRN 08/12/23 08/12/23 Orphenadrine [Norflex] 100 mg PO BID 08/12/23 08/12/23 Spironolactone [Aldactone] 50 mg PO DAILY 08/12/23 08/12/23 Tiotropium Br/Olodaterol HCl 2 puff INHALATION RT-DAILY 08/12/23 08/12/23 [Stiolto Respimat Inhal [place]] metOLazone [Zaroxolyn] 5 mg PO DAILY PRN 08/12/23 08/12/23 oxyCODONE-APAP 5-325MG [Percocet 1 tab PO Q6H PRN 08/12/23 08/12/23 5-325 mg] Previous Rx's Medication Instructions Recorded Cyclobenzaprine [Flexeril] 5 mg PO TID PRN #15 tablet 03/02/23 Codeine Phosphate/Guaifenesin 5 - 10 ml PO Q4-6H PRN #473 ml 06/13/23 [Codeine Phosphate/Guaifenesin 10-100 mg/5 ml] Aspirin 325 mg PO DAILY tab 06/22/23 Folic Acid 0.5 mg PO DAILY tab 06/22/23 Gabapentin 600 mg PO TID #90 tab 07/15/23 methylPREDNISolone Dose Pack 4 mg PO DIRECTED #21 tab 08/12/23 [Medrol Dose Pack] Allergies Allergy/AdvReac Type Severity Reaction Status Date / Time Penicillins Allergy Severe Anaphylaxis Verified 11/06/23 23:29 vancomycin Allergy Severe Swelling Verified 11/06/23 23:29 in lips albuterol [From Ventolin HFA] Allergy Rapid Verified 11/06/23 23:29 Heart Rate cefepime Allergy Swelling Verified 11/06/23 23:29 clindamycin Allergy Anaphylaxis Verified 11/06/23 23:29 dexamethasone [From Decadron] Allergy severe Verified 11/06/23 23:29 pain, like needles in groin Influenza Virus Vaccines Allergy Anaphylaxis Verified 11/06/23 23:29 latex Allergy Itching Verified 11/06/23 23:29 and swelling morphine Allergy Anaphylaxis Verified 11/06/23 23:29 prochlorperazine Allergy severe Verified 11/06/23 23:29 [From Compazine] anxiety [id number]-gnlm AdvReac Confusion, Verified 11/06/23 23:29 [From Emgality Pen] increased blood pressure metoclopramide [From Reglan] AdvReac "felt like Verified 11/06/23 23:29 I needed to jump out of my skin" Review of Systems ROS Statement: Those systems with pertinent positive or pertinent negative responses have been documented in the HPI. ROS Other: All systems not noted in ROS Statement are negative. 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 for low K+. lupus, valve replacement x2 Last Myocardial Infarction Date:: 08/30/2018 History of Any Multi-Drug Resistant Organisms: C-DIFF Date of last positivie culture/infection: 03/02/23 MDRO Source:: Stool Past Surgical History: Back Surgery, Breast Surgery, Cardiac Valve Replacement, Section, Cholecystectomy, Heart Catheterization, Hysterectomy, Pacemaker Additional Past Surgical History / Comment(s): pacemaker d/t bradycardia/hypotension with last one place in 2013 in [place], [place], 3 lower back surgeries, bilateral breast reduction. 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. lamenectomy Past Anesthesia/Blood Transfusion Reactions: No Reported Reaction Additional Past Anesthesia/Blood Transfusion Reaction / Comment(s): blood transfusion no issues Type of Cardiac Device: Permanent Pacemaker, Unknown Device Placement Date:: 2012 Past Psychological History: Anxiety Smoking Status: Never smoker Past Alcohol Use History: None Reported Past Drug Use History: None Reported - Past Family History Mother Additional Family Medical History / Comment(s): Mother at the age of 49 yrs after surgery for silicon breast implants with a leak that caused ARDS and DIC per pt (fibroid cysts) Father Family Medical History: Cancer, Hyperlipidemia, Hypertension Additional Family Medical History / Comment(s): Father is a colon cancer survivor. General Exam Limitations: no limitations General appearance: alert, in no apparent distress Head exam: Present: atraumatic, normocephalic Eye exam: Present: normal appearance ENT exam: Present: normal exam Neck exam: Present: normal inspection. Absent: tenderness, meningismus Respiratory exam: Present: normal lung sounds bilaterally. Absent: respiratory distress, wheezes Cardiovascular Exam: Present: regular rate, normal rhythm Extremities exam: Present: pedal edema, other (Distal pulses in the left leg 2+, there is 1+ pitting edema. No signs of infection.) Course Vital Signs 11/06/23 11/07/23 23:25 00:52 Temperature 98.8 F Pulse Rate 74 64 Respiratory 20 19 Rate Blood Pressure 132/77 115/60 O2 Sat by Pulse 98 97 Oximetry Medical Decision Making - Medical Decision Making Was pt. sent in by a medical professional or institution (, [facility], [employer]IC [employer]IST, urgent care, hospital, or intermediate...) When possible be specific @ -No Did you speak to anyone other than the patient for history (EMS, parent, family, police, friend...)? What history was obtained from this source @ -No Did you review nursing and triage notes (agree or disagree)? Why? @ -I reviewed and agree with nursing and triage notes Were old charts reviewed (outside hosp., previous admission, EMS record, old EKG, old radiological studies, urgent care reports/EKG's, intermediate records)? Report findings @ -No old charts were reviewed Differential Diagnosis : DVT, cellulitis, musculoskeletal injury. EKG interpreted by me (3pts min.). @ -As above X-rays interpreted by me (1pt min.). @ -None done CT interpreted by me (1pt min.). @ -None done U/S interpreted by me (1pt. min.). @ -Ultrasound negative for acute DVT. What testing was considered but not performed or refused? (CT, X-rays, U/S, labs)? Why? @ -None What meds were considered but not given or refused? Why? @ -None Did you discuss the management of the patient with other professionals (professionals i.e. [facility], [employer] ARTIST, lab, RT, psych nurse, social contact worker, cementer oil well, teacher, chief talent officer, rifle case repairer)? Give summary @ -No Was smoking cessation discussed for >3mins.? @ -No Was critical care preformed (if so, how long)? @ -No Were there social determinants of health that impacted care today? How? (Homelessness, low income, unemployed, alcoholism, drug addiction, transportation, low edu. Level, literacy, decrease access to med. care, intermediate, rehab)? @ -No Was there de-escalation of care discussed even if they declined (Discuss DNR or withdrawal of care, Hospice)? DNR status @ -No What co-morbidities impacted this encounter? (DM, HTN, Smoking, COPD, CAD, Cancer, CVA, ARF, Chemo, Hep., AIDS, mental health diagnosis, sleep apnea, morbid obesity)? @ -None Was patient admitted / discharged? Hospital course, mention meds given and route, prescriptions, significant lab abnormalities, going to OR and other pertinent info. @ -8-year-old female with left leg pain and concern for DVT. Patient has history of previous DVT. She did admit to recent work in the garden which is likely cause of her pain. Ultrasound is negative for DVT. Vital signs are stable. There is no signs of infection. Distal pulses are intact. Undiagnosed new problem with uncertain prognosis? @ -No Drug Therapy requiring intensive monitoring for toxicity (Heparin, Nitro, Insulin, Cardizem)? @ -No Were any procedures done? @ -No Diagnosis/symptom? @ -Leg pain, muscle strain Acute, or Chronic, or Acute on Chronic? @ -[Acute Uncomplicated (without systemic symptoms) or Complicated (systemic symptoms)? @ -Default Side effects of treatment? @ -No Exacerbation, Progression, or Severe Exacerbation? @ -No Poses a threat to life or bodily function? How? (Chest pain, [place], PR, pneumonia, PE, COPD, DKA, ARF, appy, cholecystitis, CVA, Diverticulitis, Homicidal, Suicidal, threat to staff... and all critical care pts) @ -No Disposition Clinical Impression: Muscle strain Disposition: HOME SELF-CARE Condition: Good Instructions (If sedation given, give patient instructions): Muscle Strain (ED) Is patient prescribed a controlled substance at d/c from ED?: No Referrals: Franklin Hassan MD [Primary Care Provider] - 1-2 days Time of Disposition: 02:20
[2023-11-07] MEDS: HYDROmorphone 1 MG/ML 1 ML SYRINGE IM STA ×2 (00:48→02:28)
--- NOTE | 2023-11-07 02:07 | US ---
EXAM: US Duplex Left Lower Extremity Veins CLINICAL HISTORY: ITS.REASON US Reason: pain and swelling TECHNIQUE: Real-time duplex ultrasound scan of the left lower extremity veins integrating B-mode two-dimensional vascular structure, Doppler spectral analysis, color flow Doppler imaging and compression. COMPARISON: No relevant prior studies available. FINDINGS: Deep veins: Unremarkable. No DVT in the visualized common femoral, femoral, proximal deep femoral or popliteal veins. The veins demonstrate normal color flow, are normally compressible, with normal phasic flow and/or augmentation response. Superficial veins: Unremarkable. No thrombus in the visualized great saphenous vein. Soft tissues: No acute findings. No popliteal cyst. IMPRESSION: No DVT of the LEFT lower extremity.
[2023-11-07] MEDS ORDERED: KETOROLAC 15 MG/ML 1 ML VIAL IM STA (02:20)
[2023-11-07 02:31] VITALS: BP 90/63; PULSE 70; RESP 18
== END 2023-11-07 02:37 | disposition home or self-care (01) ==
LOC: EC 23:11
DX: S86.912A Strain of unspecified muscle(s) and tendon(s) at lower leg level, left leg, initial encounter (principal); Z88.0 Allergy status to penicillin; Z88.1 Allergy status to other antibiotic agents; Z88.7 Allergy status to serum and vaccine; Z88.8 Allergy status to other drugs, medicaments and biological substances; Z91.040 Latex allergy status; Z90.49 Acquired absence of other specified parts of digestive tract; Z95.0 Presence of cardiac pacemaker; X58.XXXA Exposure to other specified factors, initial encounter
CPT/HCPCS: 93971; 99283; 96372 ×2; J1170

== ENCOUNTER 2023-12-07 02:33 | Emergency (ER) | payer MEDICARE ==
[2023-12-07] MEDS ORDERED: HYDROmorphone 0.5 MG/0.5 ML SYRINGE ONE (05:01)
[2023-12-07] MEDS ORDERED: diphenhydrAMINE 25 MG CAP ONE (06:39)
[2023-12-07] MEDS ORDERED: diphenhydrAMINE 50 MG/ML 1 ML VIAL ONE ×2 (06:42→13:28)
[2023-12-07] MEDS ORDERED: ACETAMINOPHEN TAB 325 MG TAB ONE (08:51)
[2023-12-07] MEDS ORDERED: LORazepam 2 MG/ML INJ ONE (13:28)
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
== END 2023-12-07 14:20 | disposition home or self-care (01) ==
LOC: EC 02:33
DX: K08.89 Other specified disorders of teeth and supporting structures (principal); B95.7 Other staphylococcus as the cause of diseases classified elsewhere; Z72.89 Other problems related to lifestyle; Z88.0 Allergy status to penicillin; Z88.1 Allergy status to other antibiotic agents; Z88.5 Allergy status to narcotic agent; Z88.7 Allergy status to serum and vaccine; Z88.8 Allergy status to other drugs, medicaments and biological substances
CPT/HCPCS: 80053; 83605; 85025; 86140; 81003; 87040; 87086; 87077; 87186; 71046; 99283; 96372 ×3; J2060; J1200; J1170

== ENCOUNTER 2023-12-26 10:51 | Observation (INO) | payer MEDICARE ==
--- NOTE | 2023-12-26 11:35 | ED ---
SOB HPI - General Chief Complaint: Shortness of Breath Stated Complaint: SOB Time Seen by Provider: 12/26/23 11:04 Source: patient, RN notes reviewed Mode of arrival: ambulatory Limitations: no limitations - History of Present Illness Initial Comments: This is a 58-year-old female who presents to the emergency department for shortness of breath and swelling in her extremities. States that this has been progressive over the last week and she has gained 8 pounds. She is concerned about CHF or kidney failure. She is on several diuretics, but has not had any relief in the swelling. Denies any chest pain but she has had shortness of breath. Additionally, she had a syncopal episode yesterday and hit her head and also injured her left leg and lower back. She is on Eliquis. She saw her PCP who advised she come to the emergency department for evaluation. Complaint: shortness of breath - Related Data Home Medications Medication Instructions Recorded Confirmed Atorvastatin [Lipitor] 40 mg PO HS 09/24/21 12/26/23 Sertraline [Zoloft] 200 mg PO DAILY 09/24/21 12/26/23 Apixaban [Eliquis] 5 mg PO BID 05/29/22 12/26/23 busPIRone HCl [Buspar] 5 mg PO BID 06/11/22 12/26/23 Bumetanide [BUMEX] 2 mg PO DAILY 06/24/22 12/26/23 Fludrocortisone [Florinef] 0.1 mg PO DAILY 09/20/22 12/26/23 Potassium Chloride ER [K-Dur 20] 20 meq PO DAILY 01/12/23 12/26/23 Metoprolol Succinate (ER) [Toprol 50 mg PO DAILY 02/16/23 12/26/23 XL] rOPINIRole HCL [Requip] 2 mg PO HS 04/28/23 12/26/23 Bumetanide [Bumex] 1 mg PO HS 08/12/23 12/26/23 Diphenhydramine 50mg Injection 50 mg IM Q6H PRN 08/12/23 12/26/23 Ipratropium Nebulized [Atrovent 0.5 mg INHALATION RT-QID PRN 08/12/23 12/26/23 Nebulized 0.2 MG/ML] Spironolactone [Aldactone] 50 mg PO HS 08/12/23 12/26/23 metOLazone [Zaroxolyn] 5 mg PO DAILY PRN 08/12/23 12/26/23 Budesonide/Glycopyr/Formoterol 2 puff INHALATION RT-BID 12/26/23 12/26/23 [Breztri Aerosphere Inhaler] Cyclobenzaprine [Flexeril] 5 mg PO TID 12/26/23 12/26/23 Diclofenac Sodium [Voltaren 2 - 4 gm TOPICAL TID PRN 12/26/23 12/26/23 Arthritis Pain 1% Gel] Gabapentin 600 mg PO BID 12/26/23 12/26/23 Midodrine [ProAmatine] 5 mg PO TID PRN 12/26/23 12/26/23 Ondansetron [Zofran] 4 mg PO TID PRN 12/26/23 12/26/23 Vitamin B-6(Unknown) 1 tab PO DAILY 12/26/23 12/26/23 Vitamin D3(Unknown) 1 tab PO DAILY 12/26/23 12/26/23 Allergies Allergy/AdvReac Type Severity Reaction Status Date / Time Penicillins Allergy Severe Anaphylaxis Verified 12/26/23 15:35 vancomycin Allergy Severe Swelling Verified 12/26/23 15:35 in lips albuterol [From Ventolin HFA] Allergy Rapid Verified 12/26/23 15:35 Heart Rate cefepime Allergy Swelling Verified 12/26/23 15:35 clindamycin Allergy Anaphylaxis Verified 12/26/23 15:35 dexamethasone [From Decadron] Allergy severe Verified 12/26/23 15:35 pain, like needles in groin Influenza Virus Vaccines Allergy Anaphylaxis Verified 12/26/23 15:35 latex Allergy Itching Verified 12/26/23 15:35 and swelling morphine Allergy Anaphylaxis Verified 12/26/23 15:35 prochlorperazine Allergy severe Verified 12/26/23 15:35 [From Compazine] anxiety [id number] AdvReac Confusion, Verified 12/26/23 15:35 [From Emgality Pen] increased blood pressure metoclopramide [From Reglan] AdvReac "felt like Verified 12/26/23 15:35 I needed to jump out of my skin" Review of Systems ROS Statement: Those systems with pertinent positive or pertinent negative responses have been documented in the HPI. ROS Other: All systems not noted in ROS Statement are negative. 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 for low K+. lupus, valve replacement x2 Last Myocardial Infarction Date:: 08/30/2018 History of Any Multi-Drug Resistant Organisms: C-DIFF Date of last positivie culture/infection: 03/02/23 MDRO Source:: Stool Past Surgical History: Back Surgery, Breast Surgery, Cardiac Valve Replacement, Section, Cholecystectomy, Heart Catheterization, Hysterectomy, Pacemaker Additional Past Surgical History / Comment(s): pacemaker d/t bradycardia/hypotension with last one place in 2013 in [place], [place], 3 lower back surgeries, bilateral breast reduction. 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. lamenectomy Past Anesthesia/Blood Transfusion Reactions: No Reported Reaction Additional Past Anesthesia/Blood Transfusion Reaction / Comment(s): blood transfusion no issues Type of Cardiac Device: Permanent Pacemaker, Unknown Device Placement Date:: 2012 Past Psychological History: Anxiety Smoking Status: Never smoker Past Alcohol Use History: None Reported Past Drug Use History: None Reported - Past Family History Mother Additional Family Medical History / Comment(s): Mother at the age of 49 yrs after surgery for silicon breast implants with a leak that caused ARDS and DIC per pt (fibroid cysts) Father Family Medical History: Cancer, Hyperlipidemia, Hypertension Additional Family Medical History / Comment(s): Father is a colon cancer survivor. General Exam Limitations: no limitations General appearance: alert, in no apparent distress Head exam: Present: atraumatic, normocephalic, normal inspection Respiratory exam: Present: normal lung sounds bilaterally. Absent: respiratory distress, wheezes, rales, rhonchi, stridor Cardiovascular Exam: Present: regular rate, normal rhythm, normal heart sounds. Absent: systolic murmur, diastolic murmur, rubs, gallop, clicks Extremities exam: Present: other (Swelling in the bilateral upper and lower extremities) Neurological exam: Present: alert, oriented X3, CN II-XII intact Psychiatric exam: Present: normal affect, normal mood Course Vital Signs 12/26/23 12/26/23 12/26/23 10:55 11:58 13:55 Temperature 97.9 F 98.0 F Pulse Rate 71 70 70 Respiratory 20 18 12 Rate Blood Pressure 125/82 117/77 109/61 Blood Pressure [Sitting] Blood Pressure [Standing] Blood Pressure [Supine] O2 Sat by Pulse 98 98 96 Oximetry 12/26/23 12/26/23 12/26/23 15:50 16:20 18:56 Temperature 98.6 F Pulse Rate 70 70 Respiratory 14 20 Rate Blood Pressure 124/54 103/70 Blood Pressure 122/81 [Sitting] Blood Pressure 118/82 [Standing] Blood Pressure 126/71 [Supine] O2 Sat by Pulse 96 95 Oximetry Medical Decision Making - Medical Decision Making This is a 58-year-old female who presents to the emergency department for shortness of breath and swelling in her extremities. Was pt. sent in by a medical professional or institution? @ -Her PCP Did you speak to anyone other than the patient for history? @ -No Did you review nursing and triage notes? @ -Yes, and I agree, it is accurate with regards to the patient's symptoms. Were old charts reviewed? @ -No Differential Diagnosis? @ -Differential Dyspnea: Coronary syndrome, arrhythmia, tamponade, asthma, COPD, pulmonary embolism, pneumonia, pneumothorax, pulmonary effusion, anaphylaxis, diabetic ketoacidosis, flailed chest, pulmonary contusion, diaphragmatic rupture, anemia, neuromuscular, this is not meant to be an all-inclusive list. EKG interpreted by me (3pts min.)? @ -EKG interpreted by me demonstrating the following: Electronic atrial pacemaker. Ventricular rate 70 bpm, AL interval 189 ms, QRS duration 94 ms, QTc 444 ms. X-rays interpreted by me (1pt min.)? @ -X-ray of the left femur and lumbar spine obtained. My interpretation identifies no acute fractures. Chest x-ray obtained, my interpretation identifies no localized consolidations or infiltrates. CT interpreted by me (1pt min.)? @ -Computed tomography scan of the brain and c-spine obtained. My interpretation identifies no evidence of an acute intracranial hemorrhage, skull fracture, or cervical spine fracture. U/S interpreted by me (1pt. min.)? @ -Not obtained What testing was considered but not performed? (CT, X-rays, U/S, labs)? Why? @ -None What meds were considered but not given? Why? @ -None Did you discuss the management of the patient with other professionals? @ -Yes, Dr. Hassan, who accepts the patient for admission. Did you reconcile home meds? @ -Yes Was smoking cessation discussed for >3mins.? @ -No Was critical care preformed (if so, how long)? @ -No Were there social determinants of health that impacted care today? How? (Homelessness, low income, unemployed, alcoholism, drug addiction, t ransportation, low edu. Level, literacy, decrease access to med. care, fpc, rehab)? @ -No Was there de-escalation of care discussed even if they declined? (Discuss DNR or withdrawal of care, Hospice)? @ -No What co-morbidities impacted this encounter? (DM, HTN, Smoking, COPD, CAD, Cancer, CVA, Hep., AIDS, mental health diagnosis, sleep apnea, morbid obesity)? @ -Renal disease, antiphospholipid antibody syndrome, lupus Was patient admitted / discharged? @ -Admitted. Lab work is fairly unremarkable. Renal function is stable when compared with the prior. BNP is 625. Urinalysis negative for signs of in fection. COVID, influenza, and RSV testing negative. Given the syncopal episode causing a head injury with the patient being on blood thinners, CT scan of the brain and C-spine was obtained. This revealed no acute process. X-ray of the left femur and lower back obtained as well, also revealing no acute injury. Chest x-ray reveals mild venous congestion. Findings reviewed with the patient. States that she is not entirely comfortable discharge home and would like to stay for diuresis as well as pain control due to the injuries she sustained in the fall. Patient admitted to medicine for shortness of breath and fluid overload. 40 mg of IV Lasix administered. Patient also advised that she gets improvement with Solu-Medrol and she was subsequently given 125 mg of Solu-Medrol. Case discussed with ED attending Dr. Brito. Undiagnosed new problem with uncertain prognosis? @ -None Drug Therapy requiring intensive monitoring for toxicity (Heparin, Nitro, Insulin, Cardizem)? @ -None Were any procedures done? @ -None Diagnosis/symptom? @ -Shortness of breath, fluid overload Acute, or Chronic, or Acute on Chronic? @ -Acute Uncomplicated (without systemic symptoms) or Complicated (systemic symptoms)? @ -Uncomplicated Side effects of treatment? @ -None Exacerbation, Progression, or Severe Exacerbation] @ -Not applicable Poses a threat to life or bodily function? @ -Yes, can lead to respiratory failure - Lab Data Result diagrams: 12/26/23 11:51 12/26/23 11:51 Lab Results 12/26/23 12/26/23 12/26/23 Range/Units 11:51 11:51 11:51 WBC 4.8 (3.8-10.6) k/uL RBC 4.27 (3.80-5.40) m/uL Hgb 11.9 (11.4-16.0) gm/dL Hct 36.7 (34.0-46.0) % MCV 85.9 (80.0-100.0) fL MCH 27.8 (25.0-35.0) pg MCHC 32.3 (31.0-37.0) g/dL RDW 16.4 H (11.5-15.5) % Plt Count 272 (150-450) k/uL MPV 7.7 Neutrophils % 65 % Lymphocytes % 22 % Monocytes % 6 % Eosinophils % 4 % Basophils % 1 % Neutrophils # 3.1 (1.3-7.7) k/uL Lymphocytes # 1.1 (1.0-4.8) k/uL Monocytes # 0.3 (0-1.0) k/uL Eosinophils # 0.2 (0-0.7) k/uL Basophils # 0.0 (0-0.2) k/uL Hypochromasia Slight Anisocytosis Slight PT 10.7 (10.0-12.5) sec INR 1.0 (<1.2) APTT 29.2 (22.0-30.0) sec Sodium (137-145) mmol/L Potassium (3.5-5.1) mmol/L Chloride (98-107) mmol/L Carbon Dioxide (22-30) mmol/L Anion Gap mmol/L BUN (7-17) mg/dL Creatinine (0.52-1.04) mg/dL Est GFR (CKD-EPI)AfAm (>60 ml/min/1.73 sqM) Est GFR (CKD-EPI)NonAf (>60 ml/min/1.73 sqM) Glucose (74-99) mg/dL Plasma Lactic Acid Raffi (0.7-2.0) mmol/L Calcium (8.4-10.2) mg/dL Magnesium (1.6-2.3) mg/dL Total Bilirubin (0.2-1.3) mg/dL AST (14-36) U/L ALT (4-34) U/L Alkaline Phosphatase (38-126) U/L Troponin I (0.000-0.034) ng/mL NT-Pro-B Natriuret Pep pg/mL Total Protein (6.3-8.2) g/dL Albumin (3.5-5.0) g/dL Urine Color Colorless Urine Appearance Clear (Clear) Urine pH 6.5 (5.0-8.0) Ur Specific [place] 1.009 (1.001-1.035) Urine Protein Negative (Negative) Urine Glucose (UA) Negative (Negative) Urine Ketones Negative (Negative) Urine Blood Negative (Negative) Urine Nitrite Negative (Negative) Urine Bilirubin Negative (Negative) Urine Urobilinogen <2.0 (<2.0) mg/dL Ur Leukocyte Esterase Negative (Negative) Influenza Type A (PCR) (Not Detectd) Influenza Type B (PCR) (Not Detectd) RSV (PCR) (Not Detectd) SARS-CoV-2 (PCR) (Not Detectd) 12/26/23 12/26/23 12/26/23 Range/Units 11:51 11:51 11:51 WBC (3.8-10.6) k/uL RBC (3.80-5.40) m/uL Hgb (11.4-16.0) gm/dL Hct (34.0-46.0) % MCV (80.0-100.0) fL MCH (25.0-35.0) pg MCHC (31.0-37.0) g/dL RDW (11.5-15.5) % Plt Count (150-450) k/uL MPV Neutrophils % % Lymphocytes % % Monocytes % % Eosinophils % % Basophils % % Neutrophils # (1.3-7.7) k/uL Lymphocytes # (1.0-4.8) k/uL Monocytes # (0-1.0) k/uL Eosinophils # (0-0.7) k/uL Basophils # (0-0.2) k/uL Hypochromasia Anisocytosis PT (10.0-12.5) sec INR (<1.2) APTT (22.0-30.0) sec Sodium 140 (137-145) mmol/L Potassium 3.6 (3.5-5.1) mmol/L Chloride 106 (98-107) mmol/L Carbon Dioxide 26 (22-30) mmol/L Anion Gap 8 mmol/L BUN 21 H (7-17) mg/dL Creatinine 1.49 H (0.52-1.04) mg/dL Est GFR (CKD-EPI)AfAm 44 (>60 ml/min/1.73 sqM) Est GFR (CKD-EPI)NonAf 38 (>60 ml/min/1.73 sqM) Glucose 100 H (74-99) mg/dL Plasma Lactic Acid Raffi 1.6 (0.7-2.0) mmol/L Calcium 9.6 (8.4-10.2) mg/dL Magnesium 2.1 (1.6-2.3) mg/dL Total Bilirubin 0.3 (0.2-1.3) mg/dL AST 29 (14-36) U/L ALT 23 (4-34) U/L Alkaline Phosphatase 71 (38-126) U/L Troponin I <0.012 (0.000-0.034) ng/mL NT-Pro-B Natriuret Pep 625 pg/mL Total Protein 6.8 (6.3-8.2) g/dL Albumin 4.4 (3.5-5.0) g/dL Urine Color Urine Appearance (Clear) Urine pH (5.0-8.0) Ur Specific [place] (1.001-1.035) Urine Protein (Negative) Urine Glucose (UA) (Negative) Urine Ketones (Negative) Urine Blood (Negative) Urine Nitrite (Negative) Urine Bilirubin (Negative) Urine Urobilinogen (<2.0) mg/dL Ur Leukocyte Esterase (Negative) Influenza Type A (PCR) (Not Detectd) Influenza Type B (PCR) (Not Detectd) RSV (PCR) (Not Detectd) SARS-CoV-2 (PCR) (Not Detectd) 12/26/23 Range/Units 11:51 WBC (3.8-10.6) k/uL RBC (3.80-5.40) m/uL Hgb (11.4-16.0) gm/dL Hct (34.0-46.0) % MCV (80.0-100.0) fL MCH (25.0-35.0) pg MCHC (31.0-37.0) g/dL RDW (11.5-15.5) % Plt Count (150-450) k/uL MPV Neutrophils % % Lymphocytes % % Monocytes % % Eosinophils % % Basophils % % Neutrophils # (1.3-7.7) k/uL Lymphocytes # (1.0-4.8) k/uL Monocytes # (0-1.0) k/uL Eosinophils # (0-0.7) k/uL Basophils # (0-0.2) k/uL Hypochromasia Anisocytosis PT (10.0-12.5) sec INR (<1.2) APTT (22.0-30.0) sec Sodium (137-145) mmol/L Potassium (3.5-5.1) mmol/L Chloride (98-107) mmol/L Carbon Dioxide (22-30) mmol/L Anion Gap mmol/L BUN (7-17) mg/dL Creatinine (0.52-1.04) mg/dL Est GFR (CKD-EPI)AfAm (>60 ml/min/1.73 sqM) Est GFR (CKD-EPI)NonAf (>60 ml/min/1.73 sqM) Glucose (74-99) mg/dL Plasma Lactic Acid Raffi (0.7-2.0) mmol/L Calcium (8.4-10.2) mg/dL Magnesium (1.6-2.3) mg/dL Total Bilirubin (0.2-1.3) mg/dL AST (14-36) U/L ALT (4-34) U/L Alkaline Phosphatase (38-126) U/L Troponin I (0.000-0.034) ng/mL NT-Pro-B Natriuret Pep pg/mL Total Protein (6.3-8.2) g/dL Albumin (3.5-5.0) g/dL Urine Color Urine Appearance (Clear) Urine pH (5.0-8.0) Ur Specific [place] (1.001-1.035) Urine Protein (Negative) Urine Glucose (UA) (Negative) Urine Ketones (Negative) Urine Blood (Negative) Urine Nitrite (Negative) Urine Bilirubin (Negative) Urine Urobilinogen (<2.0) mg/dL Ur Leukocyte Esterase (Negative) Influenza Type A (PCR) Not Detected (Not Detectd) Influenza Type B (PCR) Not Detected (Not Detectd) RSV (PCR) Not Detected (Not Detectd) SARS-CoV-2 (PCR) Not Detected (Not Detectd) - Radiology Data Radiology results: report reviewed, image reviewed Disposition Clinical Impression: Shortness of breath, Swelling of both upper extremities Disposition: ADMITTED IP TO THIS HOSP
[2023-12-26] MEDS: HYDROmorphone 1 MG/ML 1 ML SYRINGE IVP STA ×2 (12:01→14:35)
[2023-12-26 12:18] LABS: Anisocytosis Slight; Basophils % (A) 1 %; Eosinophils # (A) 0.2 k/uL (0-0.7); Eosinophils % (A) 4 %; HCT 36.7 % (34.0-46.0); HGB 11.9 gm/dL (11.4-16.0); Hypochromasia Slight; Lymphocytes # (A) 1.1 k/uL (1.0-4.8); Lymphocytes % (A) 22 %; MCH 27.8 pg (25.0-35.0); MCHC 32.3 g/dL (31.0-37.0); MCV 85.9 fL (80.0-100.0); Mean Platelet Volume 7.7; Monocytes # (A) 0.3 k/uL (0-1.0); Monocytes % (A) 6 %; Neutrophils # (A) 3.1 k/uL (1.3-7.7); Neutrophils % (A) 65 %; Platelet Count 272 k/uL (150-450); RBC 4.27 m/uL (3.80-5.40); RDW 16.4 % (11.5-15.5); WBC 4.8 k/uL (3.8-10.6)
[2023-12-26 12:37] LABS: ALT 23 U/L (4-34); AST 29 U/L (14-36); African American GFR (CKD) 44 (>60 ml/min/1.73 sqM); Albumin 4.4 g/dL (3.5-5.0); Alkaline Phosphatase 71 U/L (38-126); Anion Gap 8 mmol/L; Blood Urea Nitrogen 21 mg/dL (7-17); Calcium 9.6 mg/dL (8.4-10.2); Carbon Dioxide 26 mmol/L (22-30); Chloride 106 mmol/L (98-107); Glucose 100 mg/dL (74-99); Magnesium 2.1 mg/dL (1.6-2.3); Non-African American GFR(CKD) 38 (>60 ml/min/1.73 sqM); Potassium 3.6 mmol/L (3.5-5.1); Sodium 140 mmol/L (137-145); Total Bilirubin 0.3 mg/dL (0.2-1.3); Total Protein 6.8 g/dL (6.3-8.2)
[2023-12-26 12:40] LABS: Partial Thromboplastin Time 29.2 sec (22.0-30.0); Prothrombin Time 10.7 sec (10.0-12.5)
[2023-12-26 12:42] LABS: NT-Pro-B-Type Natriuretic Pept 625 pg/mL
[2023-12-26 12:49] LABS: Appearance,Urine Clear (Clear); Bilirubin,Urine Negative (Negative); Blood,Urine Negative (Negative); Color,Urine Colorless; Glucose,Urine (UA) Negative (Negative); Ketones,Urine Negative (Negative); Leukocyte Esterase,Urine Negative (Negative); Nitrite,Urine Negative (Negative); PH, Urine 6.5 (5.0-8.0); Protein,Urine Negative (Negative); Specific Gravity,Urine 1.009 (1.001-1.035); Urobilinogen,Urine <2.0 mg/dL (<2.0)
--- NOTE | 2023-12-26 13:14 | CT ---
EXAMINATION TYPE: CT brain shenaine wo con DATE OF EXAM: 12/26/2023 COMPARISON: 05/16/2023 HISTORY: Syncope, head injury, on thinners CT DLP: [id number] mGycm Automated exposure control for dose reduction was used. TECHNIQUE: CT scan of the head and cervical spine are performed without contrast. FINDINGS: There is no acute intracranial hemorrhage, mass effect, or midline shift identified. The ventricles and sulci are within normal limits in size. The globes are intact and the visualized sin uses are clear. Mild degenerative change. Cervical spine is visualized in its entirety from C1 through upper thoracic levels and demonstrates s atisfactory alignment without evidence of acute fracture or dislocation. Prevertebral soft tissue ap pears within normal limits. Assessment spinal canal limited due to artifact and resolution. There is multilevel mild degenerative disc disease and facet arthropathy. Generalized demineralization. Mild e ndplate deformity of T3 stable from chest CT 05/19/2023 and chronic.. Uncovertebral joint hypertrophy C4-C5 with mild left and moderate right foraminal encroachment. Incidental note made of cardiac device and lead partially included in [id number]. Heart is enlarge d. Trace pericardial fluid. Groundglass changes involving the lungs may be related to motion artifact correlate exclude a pneumonitis. Pleural-based thickening along the upper lobes laterally. There is a subcentimeter thyroid nodules. TMJ arthropathy. IMPRESSION: 1. There is no acute fracture or dislocation evident in the cervical spine. 2. No acute intracranial hemorrhage, mass effect, or midline shift is seen. 3. Groundglass changes involving the lungs could be related to respiratory motion artifact correlate clinically. 4. Chronic mild endplate compression fracture T3 stable from prior CT scan.
--- NOTE | 2023-12-26 13:37 | XR ---
EXAMINATION TYPE: XR chest 2V DATE OF EXAM: 12/26/2023 COMPARISON: 12/07/2023 TECHNIQUE: PA and lateral views submitted. HISTORY: Difficulty breathing FINDINGS: Limited inspiration. Previous aortic valve replacement surgery. Subcutaneous loop recorder device not ed and there is a stable appearing cardiac device. Mild interstitial pattern with tiny right effusion . No sizable collection. Exam limited by reduced inspiration. Heart size stable. Diffuse osteopenia, degenerative change of the spine, AC joint arthropathy. Chronic rib deformities. IMPRESSION: 1. Correlate for mild venous congestion.
--- NOTE | 2023-12-26 13:39 | XR ---
EXAMINATION TYPE: XR femur LT DATE OF EXAM: 12/26/2023 CLINICAL HISTORY: Pain TECHNIQUE: Two views of the left femur are obtained. COMPARISON: None FINDINGS: Postsurgical tract extending across the SI joint. There is mild left hip arthropathy and ge neralized osteopenia. Moderate arthropathy of the knee joint. No acute fracture or dislocation. IMPRESSION: 1. Osteoarthritis with diffuse osteopenia. No acute fracture. If there is a history of trauma and dif ficulty with weightbearing correlate with CT scan.
--- NOTE | 2023-12-26 13:48 | XR ---
EXAM TYPE: LUMBAR SPINE X RAY SERIES COMPARISON: 08/12/2023 HISTORY: Pain TECHNIQUE: 3 views are submitted. FINDINGS: Stable postsurgical changes involving the lumbar spine and sacrum. Alignment is unchanged. Transpedic ular screw surgical screws do extend anterior to the sacrum on the lateral view. Disc spacer location is stable and slightly perched anteriorly at L3-L4 with a grade 1 anterolisthesis. Generalized osteo penia and additional multilevel mild degenerative disc disease. IMPRESSION: 1. Stable postsurgical change. Correlate with MRI as clinically warranted.
[2023-12-26] MEDS ORDERED: HYDROmorphone 0.5 MG/0.5 ML SYRINGE IVP PRN (15:21)
[2023-12-26] MEDS ORDERED: NALOXONE 0.4 MG/ML 1 ML VIAL IV PRN (15:21)
[2023-12-26] MEDS: methylPREDNISolone SOD SUCCI 125 MG/2 ML VIAL IV STA (15:51)
[2023-12-26] MEDS: FUROSEMIDE 10 MG/ML 4 ML VIAL IV STA (15:56)
[2023-12-26] MEDS: diphenhydrAMINE 50 MG/ML 1 ML VIAL IVP STA (16:01)
[2023-12-26] MEDS: HYDROmorphone 1 MG/ML 1 ML SYRINGE IVP PRN (18:51)
[2023-12-26] MEDS: ONDANSETRON 4 MG/2 ML VIAL IVP PRN (18:58)
[2023-12-26] MEDS ORDERED: MIDODRINE 5 MG TAB PO PRN (19:17)
[2023-12-26] MEDS ORDERED: ONDANSETRON 4 MG TAB PO PRN (19:17)
[2023-12-26] MEDS ORDERED: diphenhydrAMINE 50 MG CAP PO PRN (19:17)
[2023-12-26] MEDS: SYMBICORT 160-4.5 MCG INHALER INHALATION SCH (20:53)
[2023-12-26] MEDS: ATORVASTATIN 40 MG TAB PO SCH (22:54)
[2023-12-26] MEDS: GABAPENTIN 300 MG CAP PO SCH (22:54)
[2023-12-26] MEDS: CYCLOBENZAPRINE 5 MG TAB PO SCH (22:55)
[2023-12-26] MEDS: busPIRone HCl 5 MG TAB PO SCH (22:55)
[2023-12-26] MEDS: APIXABAN 5 MG TAB PO SCH (22:55)
[2023-12-26] MEDS: BUMETANIDE 1 MG TAB PO SCH (23:21)
[2023-12-27] MEDS: SPIRONOLACTONE 25 MG TAB PO SCH (02:18)
[2023-12-27] MEDS: diphenhydrAMINE 50 MG/ML 1 ML VIAL IVP PRN (03:30)
[2023-12-27] MEDS: BUMETANIDE 1 MG TAB PO SCH (08:44)
[2023-12-27] MEDS: FLUDROCORTISONE 0.1 MG TAB PO SCH (08:46)
[2023-12-27] MEDS: METOPROLOL SUCCINATE (ER) 50 MG TAB.ER.24H PO SCH (08:47)
[2023-12-27] MEDS: POTASSIUM CHLORIDE ER 20 MEQ TAB.ER PO SCH (08:48)
[2023-12-27] MEDS: SERTRALINE 100 MG TAB PO SCH (08:49)
[2023-12-27] MEDS: PYRIDOXINE 50 MG TAB PO SCH (08:57)
[2023-12-27] MEDS ORDERED: PYRIDOXINE 50 MG TAB PO SCH (09:00)
[2023-12-27] MEDS ORDERED: VITAMIN D3 PO SCH (09:00)
[2023-12-27] MEDS: AZITHROMYCIN 500 MG in SODIUM CHLORIDE 0.9% 250 ML IVPB SCH (18:21)
[2023-12-28] MEDS: IPRATROPIUM 0.5 MG/2.5 ML NEBU INHALATION PRN (08:56)
[2023-12-28] MEDS: FUROSEMIDE 10 MG/ML 4 ML VIAL IV STA (10:58)
--- NOTE | 2023-12-28 12:01 | P.CRDCN ---
History of Present Illness History of present illness: HISTORY OF PRESENT ILLNESS: This is a 58-year-old female with a past medical history significant for tricuspid valve replacement x2, permanent pacemaker implantation, hyperlipidemia, migraines, seizure disorder, pulmonary embolism, chronic kidney disease, lupus, and antiphospholipid antibody syndrome. Patient follows in the office with Dr. Hanson. We have been asked to see the patient in consultation for congestive heart failure. Patient examined at the bedside. Patient states that she had finished working a midnight shift and was at home taking a shower when she passed out. She states that she was not feeling well before getting into the shower and had generalized aches and pains and was feeling fatigued. Patient also reports shortness of breath and an 8 pound weight gain. Patient did receive a one-time dose of IV Lasix in the emergency room which she states improved her breathing. She does report some chest discomfort that began after she fell in the shower. She states the pain is worse with deep inspiration. She does report having episodes of syncope in the past either from hypotension or migraines. DIAGNOSTICS: - EKG reveals paced rhythm - Chest xray correlate for mild venous congestion - Laboratory data: WBC 4.8. Hemoglobin 11.9. Platelet count 272. Sodium 140. Potassium 3.6. BUN 21. Creatinine 1.49. Troponin negative x 1. proBNP 625. - Current home cardiac medications include Eliquis 5 mg twice a day, Lipitor 40 mg at night, Bumex 2 mg in the morning and 1 mg at night, Florinef 0.1 mg daily, metoprolol succinate 50 mg daily - Most recent echocardiogram obtained in June 2023 revealed ejection fraction of 55 to 60%, no obvious regional wall motion abnormalities, trace MR, normally functioning prosthetic tricuspid valve, gradient recorded across tricuspid valve within expected range. -Patient underwent dobutamine stress test in May 2022 which was negative for ischemia. Patient did experience seizure at peak. REVIEW OF SYSTEMS: At the time of my exam: CONSTITUTIONAL: Denies fever or chills. HEENT: Denies blurred vision, vision changes, or eye pain. Denies hemoptysis CARDIOVASCULAR: Denies chest pain. Denies orthopnea. Denies PND. Denies palpitations RESPIRATORY: Denies shortness of breath. GASTROINTESTINAL: Denies abdominal pain. Denies nausea or vomiting. HEMATOLOGIC: Denies bleeding disorders. GENITOURINARY: Denies any blood in urine. SKIN: Denies pruitis. Denies rash. PHYSICAL EXAM: VITAL SIGNS: Reviewed. GENERAL: Well-developed in no acute distress. HEENT: Head is normocephalic. Pupils are equal, round. Sclerae anicteric. Mucous membranes of the mouth are moist. Neck supple. No JVD or thyromegaly LUNGS: Respirations even and unlabored. Lungs essentially clear to auscultation bilaterally. HEART: Regular rate and rhythm. S1 and S2 heard. ABDOMEN: Soft. Nondistended. Nontender. EXTREMITIES: Normal range of motion. No clubbing or cyanosis. Peripheral pulses intact. Trace lower extremity edema NEUROLOGIC: Awake and alert. Oriented x 3. ASSESSMENT: Syncope Acute on chronic heart failure with preserved EF, 55 to 60% History of tricuspid valve replacement x 2 History of permanent pacemaker implantation, [employer] Hyperlipidemia Seizure disorder History of pulmonary embolism, on [facility] outpatient Chronic kidney disease History of lupus History of antiphospholipid antibody syndrome History of seizure during dobutamine stress test, May 2022 PLAN: Obtain 2D echo to assess cardiac structure and function Continue current cardiac medications including oral Bumex Give one-time dose of IV Lasix 40 mg Interrogate pacemaker Further recommendations pending patient course Nurse practitioner note has been reviewed by physician. Signing provider agrees with the documented findings, assessment, and plan of care documented by [employer] CLERK as a scribe. Past Medical History Past Medical History: Blood Disorder, Myocardial Infarction ([place]), Pulmonary Embolus ([place]), Renal Disease, Seizure Disorder Additional Past Medical History / Comment(s): Antiphospholipid antibody syndrome which causes clots and bleeding, multiple PEs, R renal artery embolism/now atrophic, CKD stage III, hypotension, hypokalemia especially w/stress, lupus, pyoderm grangrenosum, decreased pituitary function pt states d/t clot, migraines, chonic cervical/back pain, herniated discs, RLS, vertigo,. lupus, valve replacement x2 Last Myocardial Infarction Date:: 08/30/2018 History of Any Multi-Drug Resistant Organisms: C-DIFF Date of last positivie culture/infection: 03/02/23 MDRO Source:: Stool Past Surgical History: Back Surgery, Breast Surgery, Cardiac Valve Replacement, Section, Cholecystectomy, Heart Catheterization, Hysterectomy, Pacemaker Additional Past Surgical History / Comment(s): pacemaker d/t bradycardia/hypotension with last one place in 2013 in [place], [place], 3 lower back surgeries, bilateral breast reduction. 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. lamenectomy Past Anesthesia/Blood Transfusion Reactions: No Reported Reaction Additional Past Anesthesia/Blood Transfusion Reaction / Comment(s): blood transfusion no issues Type of Cardiac Device: Permanent Pacemaker, Unknown Device Placement Date:: 2012 Past Psychological History: Anxiety, PTSD Additional Psychological History / Comment(s): Pt resides with her spouse who has dementia and PTSD, she states she fears him and he is becoming increasingly violent Smoking Status: Never smoker Past Alcohol Use History: None Reported Past Drug Use History: Marijuana Additional Drug Use History / Comment(s): Medical Marijuana use prn per pt. - Past Family History Mother Additional Family Medical History / Comment(s): Mother at the age of 49 yrs after surgery for silicon breast implants with a leak that caused ARDS and DIC per pt (fibroid cysts) Father Family Medical History: Cancer, Hyperlipidemia, Hypertension Additional Family Medical History / Comment(s): Father is a colon cancer surviv or. Medications and Allergies Home Medications Medication Instructions Recorded Confirmed Type Atorvastatin [Lipitor] 40 mg PO HS 09/24/21 12/26/23 History Sertraline [Zoloft] 200 mg PO DAILY 09/24/21 12/26/23 History Apixaban [Eliquis] 5 mg PO BID 05/29/22 12/26/23 History busPIRone HCl [Buspar] 5 mg PO BID 06/11/22 12/26/23 History Bumetanide [BUMEX] 2 mg PO DAILY 06/24/22 12/26/23 History Fludrocortisone [Florinef] 0.1 mg PO DAILY 09/20/22 12/26/23 History Potassium Chloride ER [K-Dur 20] 20 meq PO DAILY 01/12/23 12/26/23 History Metoprolol Succinate (ER) [Toprol 50 mg PO DAILY 02/16/23 12/26/23 History XL] rOPINIRole HCL [Requip] 2 mg PO HS 04/28/23 12/26/23 History Bumetanide [Bumex] 1 mg PO HS 08/12/23 12/26/23 History Diphenhydramine 50mg Injection 50 mg IM Q6H PRN 08/12/23 12/26/23 History Ipratropium Nebulized [Atrovent 0.5 mg INHALATION RT-QID PRN 08/12/23 12/26/23 History Nebulized 0.2 MG/ML] Spironolactone [Aldactone] 50 mg PO HS 08/12/23 12/26/23 History metOLazone [Zaroxolyn] 5 mg PO DAILY PRN 08/12/23 12/26/23 History Budesonide/Glycopyr/Formoterol 2 puff INHALATION RT-BID 12/26/23 12/26/23 History [Breztri Aerosphere Inhaler] Cyclobenzaprine [Flexeril] 5 mg PO TID 12/26/23 12/26/23 History Diclofenac Sodium [Voltaren 2 - 4 gm TOPICAL TID PRN 12/26/23 12/26/23 History Arthritis Pain 1% Gel] Gabapentin 600 mg PO BID 12/26/23 12/26/23 History Midodrine [ProAmatine] 5 mg PO TID PRN 12/26/23 12/26/23 History Ondansetron [Zofran] 4 mg PO TID PRN 12/26/23 12/26/23 History Vitamin B-6(Unknown) 1 tab PO DAILY 12/26/23 12/26/23 History Vitamin D3(Unknown) 1 tab PO DAILY 12/26/23 12/26/23 History Allergies Allergy/AdvReac Type Severity Reaction Status Date / Time Penicillins Allergy Severe Anaphylaxis Verified 12/26/23 15:35 vancomycin Allergy Severe Swelling Verified 12/26/23 15:35 in lips albuterol [From Ventolin HFA] Allergy Rapid Verified 12/26/23 15:35 Heart Rate cefepime Allergy Swelling Verified 12/26/23 15:35 clindamycin Allergy Anaphylaxis Verified 12/26/23 15:35 dexamethasone [From Decadron] Allergy severe Verified 12/26/23 15:35 pain, like needles in groin Influenza Virus Vaccines Allergy Anaphylaxis Verified 12/26/23 15:35 latex Allergy Itching Verified 12/26/23 15:35 and swelling morphine Allergy Anaphylaxis Verified 12/26/23 15:35 prochlorperazine Allergy severe Verified 12/26/23 15:35 [From Compazine] anxiety galcanezumab-gnlm AdvReac Confusion, Verified 12/26/23 15:35 [From Emgality Pen] increased blood pressure metoclopramide [From Reglan] AdvReac "felt like Verified 12/26/23 15:35 I needed to jump out of my skin" Physical Exam Vitals: Vital Signs Temp Pulse Pulse Resp BP Pulse Ox 12/28/23 09:10 75 12/28/23 08:56 73 12/28/23 07:18 98.0 F 78 16 122/76 100 12/28/23 02:00 97.8 F 76 14 115/78 96 12/27/23 19:19 98.8 F 70 14 104/70 97 12/27/23 14:45 99.1 F 12/27/23 13:46 98.6 F 73 18 105/68 96 Intake and Output 12/27/23 12/28/23 12/28/23 22:59 06:59 14:59 Intake Total 540 480 Output Total 300 500 Balance 240 -500 480 Intake: Oral 540 480 Output: Urine 300 500 Results 12/26/23 11:51 12/26/23 11:51 Current Medications Generic Name Dose Route Start Last Admin Trade Name Freq PRN Reason Stop Dose Admin Acetaminophen 650 mg 12/26/23 15:21 Acetaminophen Tab 325 Mg Tab PO Q6HR PRN Mild Pain or Fever > 100.5 Apixaban 5 mg 12/26/23 21:00 12/28/23 08:56 Apixaban 5 Mg Tab PO 5 mg BID ASAD Administration Protocol Atorvastatin Calcium 40 mg 12/26/23 21:00 12/27/23 21:47 Atorvastatin 40 Mg Tab PO 40 mg HS ASAD Administration Budesonide/Formoterol Fumarate 2 puff 12/26/23 20:00 12/28/23 08:56 Symbicort 160-4.5 Mcg Inhaler INHALATION 2 puff RT-BID ASAD Administration Bumetanide 1 mg 12/26/23 21:00 12/27/23 21:47 Bumetanide 1 Mg Tab PO 1 mg HS ASAD Administration Bumetanide 2 mg 12/27/23 09:00 12/28/23 08:57 Bumetanide 1 Mg Tab PO 2 mg DAILY ASAD Administration Buspirone HCl 5 mg 12/26/23 21:00 12/28/23 08:56 Buspirone Hcl 5 Mg Tab PO 5 mg BID ASAD Administration Cyclobenzaprine HCl 5 mg 12/26/23 22:00 12/28/23 08:56 Cyclobenzaprine 5 Mg Tab PO 5 mg TID ASAD Administration Diclofenac Sodium 2 gm 12/26/23 19:17 Diclofenac Sodium Gel 50 Gm Tube TOPICAL TID PRN Pain Protocol Diphenhydramine HCl 50 mg 12/27/23 02:24 12/28/23 09:34 Diphenhydramine 50 Mg/Ml 1 Ml Vial IVP 50 mg Q6HR PRN Administration Allergy Symptoms Fludrocortisone Acetate 0.1 mg 12/27/23 09:00 12/28/23 08:58 Fludrocortisone 0.1 Mg Tab PO 0.1 mg DAILY ASAD Administration Gabapentin 600 mg 12/26/23 21:00 12/28/23 08:56 Gabapentin 300 Mg Cap PO 600 mg BID ASAD Administration Hydromorphone HCl 1 mg 12/26/23 15:21 12/28/23 09:34 Hydromorphone 1 Mg/Ml 1 Ml Syringe IVP 1 mg Q3HR PRN Administration Severe Pain (Scale 7 to 10) Hydromorphone HCl 0.5 mg 12/26/23 15:21 Hydromorphone 0.5 Mg/0.5 Ml Syringe IVP Q3HR PRN Moderate Pain (Scale 4 to 6) Azithromycin 500 mg/ Sodium 250 mls @ 250 mls/hr 12/27/23 16:30 12/28/23 09:35 Chloride IVPB 12/29/23 09:59 250 mls/hr DAILY ASAD Administration Protocol Ipratropium [place] 0.5 mg 12/26/23 19:17 12/28/23 08:56 Ipratropium 0.5 Mg/2.5 Ml Nebu INHALATION 0.5 mg RT-QID PRN Administration Shortness Of Breath Metolazone 5 mg 12/26/23 19:17 Metolazone 5 Mg Tab PO DAILY PRN Edema Metoprolol Succinate 50 mg 12/27/23 09:00 12/28/23 08:56 Metoprolol Succinate (Er) 50 Mg Tab.Er.24h PO 50 mg DAILY ASAD Administration Midodrine 5 mg 12/26/23 19:17 Midodrine 5 Mg Tab PO TID PRN Blood Pressure - Low Naloxone HCl 0.2 mg 12/26/23 15:21 Naloxone 0.4 Mg/Ml 1 Ml Vial IV Q2M PRN Opioid Reversal Ondansetron HCl 4 mg 12/26/23 15:21 12/26/23 18:58 Ondansetron 4 Mg/2 Ml Vial IVP 4 mg Q8HR PRN Administration Nausea And Vomiting Ondansetron HCl 4 mg 12/26/23 19:17 Ondansetron 4 Mg Tab PO TID PRN Nausea Potassium Chloride 20 meq 12/27/23 09:00 12/28/23 08:56 Potassium Chloride Er 20 Meq Tab.Er PO 20 meq DAILY ASAD Administration Pyridoxine HCl 50 mg 12/27/23 09:00 12/28/23 08:57 Pyridoxine 50 Mg Tab PO 50 mg DAILY ASAD Administration Ropinirole HCl 2 mg 12/26/23 21:00 12/27/23 21:47 Ropinirole Hcl 1 Mg Tab PO 2 mg HS ASAD Administration Sertraline HCl 200 mg 12/27/23 09:00 12/28/23 08:56 Sertraline 100 Mg Tab PO 200 mg DAILY ASAD Administration Spironolactone 50 mg 12/26/23 21:00 12/27/23 21:46 Spironolactone 25 Mg Tab PO 50 mg HS ASAD Administration Intake and Output 12/27/23 12/28/23 12/28/23 22:59 06:59 14:59 Intake Total 540 480 Output Total 300 500 Balance 240 -500 480 Intake: Oral 540 480 Output: Urine 300 500 12/26/23 11:51 12/26/23 11:51
[2023-12-29] MEDS ORDERED: HYDROmorphone 1 MG/ML 1 ML SYRINGE ONE (01:00)
[2023-12-29] MEDS ORDERED: ACETAMINOPHEN TAB 325 MG TAB ONE (01:30)
[2023-12-29 08:33] LABS: ALT 23 U/L (4-34); AST 33 U/L (14-36); African American GFR (CKD) 41 (>60 ml/min/1.73 sqM); Albumin 4.6 g/dL (3.5-5.0); Albumin/Globulin Ratio 1.7; Alkaline Phosphatase 83 U/L (38-126); Anion Gap 9 mmol/L; Blood Urea Nitrogen 40 mg/dL (7-17); Calcium 9.8 mg/dL (8.4-10.2); Carbon Dioxide 30 mmol/L (22-30); Chloride 95 mmol/L (98-107); Globulin 2.7 g/dL; Glucose 85 mg/dL (74-99); Non-African American GFR(CKD) 36 (>60 ml/min/1.73 sqM); Potassium 3.1 mmol/L (3.5-5.1); Sodium 134 mmol/L (137-145); Total Bilirubin 0.6 mg/dL (0.2-1.3); Total Protein 7.3 g/dL (6.3-8.2)
[2023-12-29 08:45] LABS: Glucose,Whole Blood 105 mg/dL (70-110)
[2023-12-29] MEDS: metOLazone 5 MG TAB PO PRN (09:50)
[2023-12-29 11:05] LABS: Basophils # (A) 0.03 X 10*3/uL (0.00-0.10); Basophils % (A) 0.4 %; Eosinophils # (A) 0.24 X 10*3/uL (0.04-0.35); HCT 41.5 % (37.2-46.3); HGB 12.8 g/dL (12.0-15.0); Lymphocytes # (A) 1.37 X 10*3/uL (0.90-5.00); Lymphocytes % (A) 17.1 %; MCH 26.4 pg (27.0-32.0); MCHC 30.8 g/dL (32.0-37.0); MCV 85.6 FL (80.0-97.0); Mean Platelet Volume 9.9 FL (9.5-12.2); Monocytes # (A) 0.88 X 10*3/uL (0.20-1.00); NRBC Per 100 WBC 0 X 10*3/uL (0.00-0.01); Neutrophils # (A) 5.46 X 10*3/uL (1.80-7.70); Neutrophils % (A) 68.1 %; Platelet Count 240 X 10*3/uL (140-440); RBC 4.85 X 10*6/uL (4.10-5.20); RDW 16.2 % (11.5-14.5); WBC 8.01 X 10*3/uL (4.50-10.00)
[2023-12-29] MEDS: ACETAMINOPHEN TAB 325 MG TAB PO PRN (11:10)
[2023-12-29] MEDS ORDERED: Potassium Replacement Protocol 1 EACH MISC MISCELLANE PRN (11:16)
--- NOTE | 2023-12-29 12:49 | P.CNOR ---
History of Present Illness - [facility] Consult date: 12/29/23 Consult reason: joint pain (Right knee pain) History of present illness: Patient is a 58-year-old female who was brought into the hospital on 12/26/2023 with concerns of shortness of breath and swelling in the bilateral lower extremities. Patient has a extensive cardiac history and multiple medical comorbidities. Patient is known to our orthopedic practice, she recently underwent a revision [id number] decompression and fusion along with bilateral SI joint fusions by Dr. Goodman salgado in July 2023. Since being in the hospital, patient admits to a possible syncopal episode and fall that occurred on 12/26/2023. She initially had some significant lower back pain which has improved since being in the hospital. She also complained of left lower leg pain and also right knee pain. X-rays of the left femur were obtained along with lumbar spine which revealed no acute osseous abnormalities. A right knee x-ray was ordered on 12/29/2023, a consult was in place for our orthopedic service. Patient was evaluated today at bedside, she is resting comfortably. She notes significant pain and swelling to the right knee. She denies any previous surgery to the right knee. She states that since June with her back surgery she has been doing very well. 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 Patient has worked herself off all narcotic pain medication. She does take gabapentin along with Flexeril. Patient denies any obvious numbness or tingling to the bilateral lower extremities, she denies any ngozi weakness to the bilateral lower extremities. She denies any loss of bowel or bladder function at this time. She admits to anterior/medial pain of the knee, she finds it very difficult to lift the leg and flex the knee at this time. Review of Systems Constitutional: Reports as per HPI Past Medical History Past Medical History: Blood Disorder, Myocardial Infarction ([place]), Pulmonary Embolus ([place]), Renal Disease, Seizure Disorder Additional Past Medical History / Comment(s): Antiphospholipid antibody syndrome which causes clots and bleeding, multiple PEs, R renal artery embolism/now atrophic, CKD stage III, hypotension, hypokalemia especially w/stress, lupus, pyoderm grangrenosum, decreased pituitary function pt states d/t clot, migraines, chonic cervical/back pain, herniated discs, RLS, vertigo,. lupus, valve replacement x2 Last Myocardial Infarction Date:: 08/30/2018 History of Any Multi-Drug Resistant Organisms: C-DIFF Year Discovered:: 03/02/23 MDRO Source:: Stool Past Surgical History: Back Surgery, Breast Surgery, Cardiac Valve Replacement, Section, Cholecystectomy, Heart Catheterization, Hysterectomy, Pacemaker Additional Past Surgical History / Comment(s): pacemaker d/t bradycardia/hypotension with last one place in 2013 in [place], [place], 3 lower back surgeries, bilateral breast reduction. 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. lamenectomy Past Anesthesia/Blood Transfusion Reactions: No Reported Reaction Additional Past Anesthesia/Blood Transfusion Reaction / Comm: blood transfusion no issues Type of Cardiac Device: Permanent Pacemaker, Unknown Device Placement Date:: 2012 Past Psychological History: Anxiety, PTSD Additional Psychological History / Comment(s): Pt resides with her spouse who has dementia and PTSD, she states she fears him and he is becoming increasingly violent Smoking Status: Never smoker Past Alcohol Use History: None Reported Past Drug Use History: Marijuana Additional Drug Use History / Comment(s): Medical Marijuana use prn per pt. - Past Family History Mother Additional Family Medical History / Comment(s): Mother at the age of 49 yrs after surgery for silicon breast implants with a leak that caused ARDS and DIC per pt (fibroid cysts) Father Family Medical History: Cancer, Hyperlipidemia, Hypertension Additional Family Medical History / Comment(s): Father is a colon cancer survivor. Medications and Allergies Home Medications Medication Instructions Recorded Confirmed Type Atorvastatin [Lipitor] 40 mg PO HS 09/24/21 12/26/23 History Sertraline [Zoloft] 200 mg PO DAILY 09/24/21 12/26/23 History Apixaban [Eliquis] 5 mg PO BID 05/29/22 12/26/23 History busPIRone HCl [Buspar] 5 mg PO BID 06/11/22 12/26/23 History Bumetanide [BUMEX] 2 mg PO DAILY 06/24/22 12/26/23 History Fludrocortisone [Florinef] 0.1 mg PO DAILY 09/20/22 12/26/23 History Potassium Chloride ER [K-Dur 20] 20 meq PO DAILY 01/12/23 12/26/23 History Metoprolol Succinate (ER) [Toprol 50 mg PO DAILY 02/16/23 12/26/23 History XL] rOPINIRole HCL [Requip] 2 mg PO HS 04/28/23 12/26/23 History Bumetanide [Bumex] 1 mg PO HS 08/12/23 12/26/23 History Diphenhydramine 50mg Injection 50 mg IM Q6H PRN 08/12/23 12/26/23 History Ipratropium Nebulized [Atrovent 0.5 mg INHALATION RT-QID PRN 08/12/23 12/26/23 History Nebulized 0.2 MG/ML] Spironolactone [Aldactone] 50 mg PO HS 08/12/23 12/26/23 History metOLazone [Zaroxolyn] 5 mg PO DAILY PRN 08/12/23 12/26/23 History Budesonide/Glycopyr/Formoterol 2 puff INHALATION RT-BID 12/26/23 12/26/23 History [Breztri Aerosphere Inhaler] Cyclobenzaprine [Flexeril] 5 mg PO TID 12/26/23 12/26/23 History Diclofenac Sodium [Voltaren 2 - 4 gm TOPICAL TID PRN 12/26/23 12/26/23 History Arthritis Pain 1% Gel] Gabapentin 600 mg PO BID 12/26/23 12/26/23 History Midodrine [ProAmatine] 5 mg PO TID PRN 12/26/23 12/26/23 History Ondansetron [Zofran] 4 mg PO TID PRN 12/26/23 12/26/23 History Vitamin B-6(Unknown) 1 tab PO DAILY 12/26/23 12/26/23 History Vitamin D3(Unknown) 1 tab PO DAILY 12/26/23 12/26/23 History Allergies Allergy/AdvReac Type Severity Reaction Status Date / Time Penicillins Allergy Severe Anaphylaxis Verified 12/26/23 15:35 vancomycin Allergy Severe Swelling Verified 12/26/23 15:35 in lips albuterol [From Ventolin HFA] Allergy Rapid Verified 12/26/23 15:35 Heart Rate cefepime Allergy Swelling Verified 12/26/23 15:35 clindamycin Allergy Anaphylaxis Verified 12/26/23 15:35 dexamethasone [From Decadron] Allergy severe Verified 12/26/23 15:35 pain, like needles in groin Influenza Virus Vaccines Allergy Anaphylaxis Verified 12/26/23 15:35 latex Allergy Itching Verified 12/26/23 15:35 and swelling morphine Allergy Anaphylaxis Verified 12/26/23 15:35 prochlorperazine Allergy severe Verified 12/26/23 15:35 [From Compazine] anxiety galcanezumab-gnlm AdvReac Confusion, Verified 12/26/23 15:35 [From Emgality Pen] increased blood pressure metoclopramide [From Reglan] AdvReac "felt like Verified 12/26/23 15:35 I needed to jump out of my skin" Physical Examination Right lower extremity: Multiple healed scars present to the right lower extremity. There is no open lesions, there is no erythema present. There is a moderate effusion noted on the knee. Skin is normal temp to touch, no excessive heat. No obvious deformity or leg length discrepancy compared to the contralateral side Patient demonstrates generalized pain with palpation to the anterior medial aspect of the knee. Patient is nontender with patient to throughout the calf foot/ankle. She is nontender with palpation of the proximal femur. She is stable to both varus and valgus stress Logroll maneuver reproduces no pain in the groin. Patient has a hard time lifting the leg off the bed due to pain. Patient was able to actively flex the knee to about 40 degrees before pain is reproduced. Passive range of motion of the knee reproduces minimal discomfort. With her limited range of motion I was able to appreciate quadriceps tendon activation along with patellar tendon and the medial retinaculum. plantarflexion, dorsiflexion, EHL, FHL are intact Calf is soft, no tenderness with palpation. Plantarflexion, dorsiflexion, EHL, FHL are intact Sensory exam to light touch is intact throughout the extremity Dorsalis pedis pulses 2+ Results - Labs Labs: Abnormal Lab Results - Last 24 Hours (Table) 12/29/23 12/29/23 Range/Units 07:51 09:05 MCH 26.4 L (27.0-32.0) pg MCHC 30.8 L (32.0-37.0) g/dL RDW 16.2 H (11.5-14.5) % Sodium 134 L (137-145) mmol/L Potassium 3.1 L (3.5-5.1) mmol/L Chloride 95 L (98-107) mmol/L BUN 40 H (7-17) mg/dL Creatinine 1.58 H (0.52-1.04) mg/dL H & H 12/26/23 12/29/23 Range/Units 11:51 07:51 Hgb 11.9 12.8 (11.4-16.0) gm/dL Hct 36.7 41.5 (34.0-46.0) % Coagulation 12/26/23 Range/Units 11:51 INR 1.0 (<1.2) Result Diagrams: 12/29/23 07:51 12/29/23 09:05 Assessment and Plan Assessment: Right knee pain Right knee effusion Left lower extremity pain Back pain History of revision [id number] decompression and fusion, bilateral SI joint fusion (July 2023), stable Multiple medical comorbidities Plan: I was able to discuss the case this to include both physical exam findings and current imaging studies and my attending Dr. Diaz's and. No emergent orthopedic surgical intervention is recommended at this time. Awaiting right knee x-ray images and reports for review. Discussed with patient the possibility of an aspiration with cortisone injection on 12/30/2023. Pending x-ray evaluation along with aspiration results may consider CT scan without contrast for further evaluation of bony anatomy. Conservative measures recommended, this to include icing and elevating. Basic heel slides to help with range of motion at this time. Would limit weightbearing at this time until able to review x-rays. Pain control, continue with current medications GI DVT prophylaxis, continue current medication Other medical specialty recommendations appreciated Further recommendations to follow Time with Patient: Less than 30
--- NOTE | 2023-12-29 13:05 | CA ---
Transthoracic Echo Report Name: Dania Meza Age: 58 Gender: F : 1965 Exam Date: 12/28/2023 16:43 Exam Location: [place] [facility] Ht (in): 62 Wt (lb): 258 Ordering Physician: Divine Olivas Attending/Referring Phys: [id number], Deisy Psychology Department Chair Inés Chan RDCS Procedure CPT: Indications: LV function, CP Cardiac Hx: Technical Quality: Very technically difficult study Contrast 1: Definity Total Dose (mL): 2 Contrast 2: Total Dose (mL): MEASUREMENTS (Male / Female) Normal Values 2D ECHO LV Diastolic Diameter PLAX 4.0 cm 4.2 - 5.9 / 3.9 - 5.3 cm LV Systolic Diameter PLAX 2.9 cm IVS Diastolic Thickness 0.8 cm 0.6 - 1.0 / 0.6 - 0.9 cm LVPW Diastolic Thickness 1.2 cm 0.6 - 1.0 / 0.6 - 0.9 cm LV Relative Wall Thickness 0.5 LVOT Diameter 1.9 cm Aortic Root Diameter 3.1 cm LV Diastolic Volume MOD BP 73.6 cm??? 67 - 155 / 56 - 104 cm??? LV Systolic Volume MOD BP 27.3 cm??? 22 - 58 / 19 - 49 cm??? LV Ejection Fraction MOD BP 62.9 % >= 55 % LV Cardiac Index MOD BP 1389.5 cm???/min???m??? LV Diastolic Volume MOD 4C 86.5 cm??? LV Systolic Volume MOD 4C 27.1 cm??? LV Ejection Fraction MOD 4C 68.6 % LV Cardiac Index MOD 4C 1779.7 cm???/min???m??? LV Diastolic Length 4C 7.7 cm LV Systolic Length 4C 6.0 cm LV Diastolic Volume MOD 2C 60.4 cm??? LV Systolic Volume MOD 2C 26.3 cm??? LV Ejection Fraction MOD 2C 56.5 % LV Cardiac Index MOD 2C 1021.9 cm???/min???m??? LV Diastolic Length 2C 7.4 cm LV Systolic Length 2C 5.7 cm Ascending Aorta Diameter 3.6 cm DOPPLER AV Peak Velocity 93.0 cm/s AV Peak Gradient 3.5 mmHg AV Mean Velocity 70.6 cm/s AV Mean Gradient 2.1 mmHg AV Velocity Time Integral 17.3 cm LVOT Peak Velocity 73.4 cm/s LVOT Peak Gradient 2.2 mmHg LVOT Velocity Time Integral 14.8 cm LVOT Stroke Volume 40.7 cm??? LVOT Stroke Volume Index 19.1 ml/m??? LVOT Cardiac Index 1221.4 cm???/min???m??? AV Area Cont Eq vti 2.4 cm??? AV Area Cont Eq pk 2.2 cm??? Mitral E Point Velocity 48.0 cm/s Mitral A Point Velocity 71.3 cm/s Mitral E to A Ratio 0.7 MV Deceleration Time 263.4 ms MV E' Velocity 4.4 cm/s Mitral E to MV E' Ratio 11.0 PV Peak Velocity 74.6 cm/s PV Peak Gradient 2.2 mmHg FINDINGS Left Ventricle Left ventricular ejection fraction is estimated at 55-60 %. Mildly increased posterior wall thickness. Left ventricular cavity size normal. No obvious regional wall motion abnormalities. Right Ventricle Right ventricle not well visualized. Unable to estimate the right ventricular systolic pressure. Right Atrium Right atrium not well visualized. Left Atrium Left atrium not well visualized. Mitral Valve Structurally normal mitral valve. No mitral stenosis, regurgitation or prolapse. Aortic Valve Bioprosthetic aortic valve without stenosis with a peak velocity of .9 m/s, peak gradient 3 mmHg, mean gradient 2 mmHg, and estimated aortic valve area of 2.4 cm???. No paravalvular aortic regurgitation. No central aortic regurgitation. Tricuspid Valve Tricuspid valve replacement. Mean gradient of 3mmHg. No tricuspid regurgitation. Pulmonic Valve Pulmonic valve not well visualized. No pulmonic stenosis. No pulmonic regurgitation. Pericardium No pericardial effusion. Aorta Normal size aortic root and proximal ascending aorta. CONCLUSIONS Left ventricular ejection fraction 55-60% Mildly increased left ventricular wall thickness No mitral regurgitation Bioprosthetic aortic valve without significant gradients and no aortic regurgitation Normally functioning bioprosthetic tricuspid valve with mean gradient of 3 Previewed by: Dr. Billy Huerta DO (Electronically Signed) Final Date: 29 December 2023 13:04
[2023-12-29] MEDS: DICLOFENAC SODIUM GEL 50 GM TUBE TOPICAL PRN (13:19)
--- NOTE | 2023-12-29 13:37 | P.PN ---
Subjective HISTORY OF PRESENT ILLNESS: This is a 58-year-old female with a past medical history significant for tricuspid valve replacement x2, permanent pacemaker implantation, hyperlipidemia, migraines, seizure disorder, pulmonary embolism, chronic kidney disease, lupus, and antiphospholipid antibody syndrome. Patient follows in the office with Dr. Hanson. We have been asked to see the patient in consultation for congestive heart failure. Patient examined at the bedside. Patient states that she had finished working a midnight shift and was at home taking a shower when she passed out. She states that she was not feeling well before getting into the shower and had generalized aches and pains and was feeling fatigued. Patient also reports shortness of breath and an 8 pound weight gain. Patient did receive a one-time dose of IV Lasix in the emergency room which she states improved her breathing. She does report some chest discomfort that began after she fell in the shower. She states the pain is worse with deep inspiration. She does report having episodes of syncope in the past either from hypotension or migraines. DIAGNOSTICS: - EKG reveals paced rhythm - Chest xray correlate for mild venous congestion - Laboratory data: WBC 4.8. Hemoglobin 11.9. Platelet count 272. Sodium 140. Potassium 3.6. BUN 21. Creatinine 1.49. Troponin negative x 1. proBNP 625. - Current home cardiac medications include Eliquis 5 mg twice a day, Lipitor 40 mg at night, Bumex 2 mg in the morning and 1 mg at night, Florinef 0.1 mg daily, metoprolol succinate 50 mg daily - Most recent echocardiogram obtained in June 2023 revealed ejection fraction of 55 to 60%, no obvious regional wall motion abnormalities, trace MR, normally functioning prosthetic tricuspid valve, gradient recorded across tricuspid valve within expected range. -Patient underwent dobutamine stress test in May 2022 which was negative for ischemia. Patient did experience seizure at peak. 12/29/2023 Patient examined this morning the bedside. Patient denies chest pain or pressure. Denies SOB. Pacemaker interrogated with no acute events. 4 months until [facility]OL[facility]. Echocardiogram completed revealing ejection fraction 55 to 60%, bioprosthetic aortic valve without significant gradient, normally functioning bioprosthetic tricuspid valve. PHYSICAL EXAM: VITAL SIGNS: Reviewed. GENERAL: Well-developed in no acute distress. HEENT: Head is normocephalic. Pupils are equal, round. Sclerae anicteric. Mucous membranes of the mouth are moist. Neck supple. No JVD or thyromegaly LUNGS: Respirations even and unlabored. Lungs essentially clear to auscultation bilaterally. HEART: Regular rate and rhythm. S1 and S2 heard. ABDOMEN: Soft. Nondistended. Nontender. EXTREMITIES: Normal range of motion. No clubbing or cyanosis. Peripheral pulses intact. Trace lower extremity edema NEUROLOGIC: Awake and alert. Oriented x 3. ASSESSMENT: Syncope Acute on chronic heart failure with preserved EF, 55 to 60% History of aortic and tricuspid valve replacement History of permanent pacemaker implantation, [employer] Hyperlipidemia Seizure disorder History of pulmonary embolism, [facility] Chronic kidney disease History of lupus History of antiphospholipid antibody syndrome History of seizure during dobutamine stress test, May 2022 PLAN: Continue current cardiac medications Patient is currently stable from a cardiac standpoint Will follow on as-needed basis. Please call with questions or concerns. Nurse practitioner note has been reviewed by physician. Signing provider agrees with the documented findings, assessment, and plan of care documented by EXECUTIVE ACCOUNT MANAGER as a scribe. Objective - Vital Signs Vital signs: Vital Signs Temp 97.7 F 12/29/23 07:30 Pulse 62 12/29/23 07:30 Resp 16 12/29/23 07:30 BP 115/77 12/29/23 07:30 Pulse Ox 94 L 12/29/23 07:30 FiO2 Intake & Output 12/28/23 12/29/23 12/29/23 18:59 06:59 18:59 Intake Total 2040 Output Total 1200 3950 Balance 840 -3950 Intake: Oral 2040 Output: Urine 1200 3950 - Labs CBC & Chem 7: 12/29/23 07:51 12/29/23 09:05
[2023-12-29] MEDS: POTASSIUM CHLORIDE ER 20 MEQ TAB.ER PO SCH (15:03)
[2023-12-30 00:38] LABS: Glucose,Whole Blood 121 mg/dL (70-110)
[2023-12-30 05:52] LABS: Glucose,Whole Blood 123 mg/dL (70-110)
--- NOTE | 2023-12-30 09:00 | XR ---
EXAMINATION TYPE: XR knee complete RT DATE OF EXAM: 12/29/2023 COMPARISON: NONE HISTORY: 58-year-old female with pain and swelling after fall TECHNIQUE: 3 views FINDINGS: There is a moderate to large underlying joint effusion. No discrete fracture is identified. Extensor mechanism appears intact. IMPRESSION: Given the moderate to large joint effusion, internal derangement or occult osseous injury is difficult to exclude. Correlate as to the need for more sensitive evaluation with MRI. No acute o sseous abnormality seen radiographically.
[2023-12-30 10:11] VITALS: BMI 47.2
[2023-12-30 12:10] LABS: Glucose,Whole Blood 140 mg/dL (70-110)
--- NOTE | 2023-12-30 14:45 | P.PN ---
Subjective Progress Note Date: 12/30/23 Principal diagnosis: Right knee pain, right knee effusion Patient was evaluated today at bedside, she continues to have discomfort with the right knee and swelling. We again discussed a intra-articular cortisone injection and aspiration at bedside, risk and benefits were discussed. Patient would like to proceed, consent form was obtained prior to the procedure. Please see procedure note for further detail. Objective - Vital Signs Vital signs: Vital Signs Temp 99.5 F 12/30/23 13:08 Pulse 73 12/30/23 13:08 Resp 20 12/30/23 13:08 BP 125/62 12/30/23 13:08 Pulse Ox 92 L 12/30/23 13:08 FiO2 Intake & Output 12/29/23 12/30/23 12/30/23 18:59 06:59 18:59 Intake Total 2039 Balance 2039 Weight 117.027 kg Intake: Oral 2039 Other: Voiding Method Bedside Commode # Voids 5 2 # Bowel Movements 1 - Exam Right lower extremity: Multiple healed scars present to the right lower extremity. There is no open lesions, there is no erythema present. There is a moderate effusion noted on the knee. Skin is normal temp to touch, no excessive heat. No obvious deformity or leg length discrepancy compared to the contralateral side Patient demonstrates generalized pain with palpation to the anterior medial aspect of the knee. Patient is nontender with patient to throughout the calf foot/ankle. She is nontender with palpation of the proximal femur. She is stable to both varus and valgus stress Logroll maneuver reproduces no pain in the groin. Patient has a hard time lifting the leg off the bed due to pain. Patient was able to actively flex the knee to about 40 degrees before pain is reproduced. Passive range of motion of the knee reproduces minimal discomfort. With her limited range of motion I was able to appreciate quadriceps tendon activation along with patellar tendon and the medial retinaculum. plantarflexion, dorsiflexion, EHL, FHL are intact Calf is soft, no tenderness with palpation. Plantarflexion, dorsiflexion, EHL, FHL are intact Sensory exam to light touch is intact throughout the extremity Dorsalis pedis pulses 2+ - Labs CBC & Chem 7: 12/29/23 07:51 12/30/23 06:38 Labs: Abnormal Lab Results - Last 24 Hours (Table) 12/30/23 12/30/23 12/30/23 Range/Units 00:33 05:51 06:38 Potassium 2.8 L (3.5-5.1) mmol/L POC Glucose (mg/dL) 121 H 123 H (70-110) mg/dL 12/30/23 Range/Units 12:09 Potassium (3.5-5.1) mmol/L POC Glucose (mg/dL) 140 H (70-110) mg/dL Assessment and Plan Assessment: Right knee pain Right knee effusion Left lower extremity pain Back pain History of revision [id number] decompression and fusion, bilateral SI joint fusion (July 2023), stable Multiple medical comorbidities Plan: X-rays and reports of the right knee were reviewed, no acute fractures or dislocations. Moderate to severe joint effusion present. We again discussed the aspiration with cortisone injection today at bedside, patient was provided with risk and benefits, she was in good understanding and wanted to proceed. A consent form was obtained prior to the procedure, please see procedure note for further detail Weight-bear as tolerated Pain control, continue with current medications GI DVT prophylaxis, continue current medication Other medical specialty recommendations appreciated Discharge planning: On orthopedic standpoint patient is stable for discharge and follow-up in the outpatient setting
--- NOTE | 2023-12-30 14:48 | P.PCN ---
Date of Procedure: 12/30/23 Preoperative Diagnosis: Right knee pain/right knee effusion Procedure(s) Performed: Right knee aspiration with intra-articular cortisone injection Anesthesia: local Surgeon: Viet Frye Estimated Blood Loss (ml): 0 Pathology: none sent Condition: stable Disposition: no change Indications for Procedure: Right knee pain and swelling Description of Procedure: Risk and benefits of the procedure were discussed with the patient, this to include infection, neurovascular injury, worsening pain and swelling. Patient was in good understanding wanted to proceed, consent form was obtained. Patient was placed in the supine position, the knee was prepped with 1 iodine swab and 3 alcohol swabs. A 20-gauge needle was used to first inject 3 cc of 1% plain lidocaine via the suprapatellar approach. I was able to aspirate about 20 cc of normal-appearing serosanguineous joint fluid. I then changed syringes and placed 1 cc 1% plain lidocaine, 1 cc of quarter percent plain Marcaine and 40 mg of Depo-Medrol via the suprapatellar approach. Patient tolerated the procedure well.
[2023-12-30 18:11] LABS: Glucose,Whole Blood 209 mg/dL (70-110)
[2023-12-30] MEDS: POTASSIUM CHLORIDE ER 20 MEQ TAB.ER PO SCH (20:09)
[2023-12-31 01:16] LABS: Glucose,Whole Blood 227 mg/dL (70-110)
[2023-12-31 09:53] LABS: Basophils # (A) 0.01 X 10*3/uL (0.00-0.10); Basophils % (A) 0.2 %; Eosinophils # (A) 0.03 X 10*3/uL (0.04-0.35); Eosinophils % (A) 0.5 %; HCT 35.7 % (37.2-46.3); HGB 11.1 g/dL (12.0-15.0); Lymphocytes % (A) 8.8 %; MCH 26.5 pg (27.0-32.0); MCHC 31.1 g/dL (32.0-37.0); MCV 85.2 FL (80.0-97.0); Mean Platelet Volume 10.8 FL (9.5-12.2); Monocytes # (A) 0.38 X 10*3/uL (0.20-1.00); Monocytes % (A) 6.7 %; NRBC Per 100 WBC 0 X 10*3/uL (0.00-0.01); Neutrophils # (A) 4.77 X 10*3/uL (1.80-7.70); Neutrophils % (A) 83.6 %; Platelet Count 257 X 10*3/uL (140-440); RBC 4.19 X 10*6/uL (4.10-5.20); RDW 15.4 % (11.5-14.5)
[2023-12-31 10:03] VITALS: BP 107/68; PULSE 72; RESP 16; TEMP 98.3
[2023-12-31 10:51] LABS: ALT 21 U/L (8-44); AST 22 U/L (13-35); Albumin 4.4 g/dL (3.8-4.9); Albumin/Globulin Ratio 1.91 Ratio (1.60-3.17); Alkaline Phosphatase 81 U/L (41-126); BUN/Creat Ratio 21.71 Ratio (12.00-20.00); Blood Urea Nitrogen 30.4 mg/dL (9.0-27.0); Calcium 9.1 mg/dL (8.7-10.3); Carbon Dioxide 29.1 mmol/L (21.6-31.8); Chloride 97 mmol/L (96-109); Globulin 2.3 g/dL (1.6-3.3); Glucose 138 mg/dL (70-110); Potassium 3.6 mmol/L (3.5-5.5); Sodium 139 mmol/L (135-145); Total Bilirubin 0.2 mg/dL (0.3-1.2); Total Protein 6.7 g/dL (6.2-8.2)
[2023-12-31] MEDS: MAGNESIUM OXIDE 400 MG TAB PO SCH (11:01)
--- NOTE | 2023-12-31 12:38 | P.PN ---
Subjective Progress Note Date: 12/31/23 Principal diagnosis: Right knee pain, right knee effusion Patient was evaluated today at bedside, she has been discharged by the internal medicine doctor. Patient states her knee is feeling a lot better. She has been able to weight-bear with a lot less discomfort. She feels that the swelling is improved. She denies any warmth or redness to the area. Objective - Vital Signs Vital signs: Vital Signs Temp 98.3 F 12/31/23 07:21 Pulse 72 12/31/23 07:21 Resp 16 12/31/23 07:21 BP 107/68 12/31/23 07:21 Pulse Ox 96 12/31/23 07:21 FiO2 Intake & Output 12/30/23 12/31/23 12/31/23 18:59 06:59 18:59 Intake Total 1856 Balance 1856 Weight 117.027 kg Intake: Oral 1855 Other: Voiding Method Bedside Commode # Voids 1 2 # Bowel Movements 1 - Exam Right lower extremity: Multiple healed scars present to the right lower extremity. There is no open lesions, there is no erythema present. small effusion present on the knee. Skin is normal temp to touch, no excessive heat. No obvious deformity or leg length discrepancy compared to the contralateral side Patient demonstrates generalized pain with palpation to the anterior medial aspect of the knee. Patient is nontender with patient to throughout the calf foot/ankle. She is nontender with palpation of the proximal femur. She is stable to both varus and valgus stress Logroll maneuver reproduces no pain in the groin. Straight leg raises a lot easier today, she can actively flex and extend the knee. Plantarflexion, dorsiflexion, EHL, FHL are intact Calf is soft, no tenderness with palpation. Plantarflexion, dorsiflexion, EHL, FHL are intact Sensory exam to light touch is intact throughout the extremity Dorsalis pedis pulses 2+ - Labs CBC & Chem 7: 12/31/23 06:05 12/31/23 06:05 Labs: Abnormal Lab Results - Last 24 Hours (Table) 12/30/23 12/31/23 12/31/23 Range/Units 18:09 01:13 06:05 Hgb 11.1 L (12.0-15.0) g/dL Hct 35.7 L (37.2-46.3) % MCH 26.5 L (27.0-32.0) pg MCHC 31.1 L (32.0-37.0) g/dL RDW 15.4 H (11.5-14.5) % Lymphocytes # 0.50 L (0.90-5.00) X 10*3/uL Eosinophils # 0.03 L (0.04-0.35) X 10*3/uL Anion Gap (4.00-12.00) mmol/L BUN (9.0-27.0) mg/dL Est GFR (CKD-EPI) (>=60) BUN/Creatinine Ratio (12.00-20.00) Ratio Glucose (70-110) mg/dL POC Glucose (mg/dL) 209 H 227 H (70-110) mg/dL Total Bilirubin (0.3-1.2) mg/dL 12/31/23 Range/Units 06:05 Hgb (12.0-15.0) g/dL Hct (37.2-46.3) % MCH (27.0-32.0) pg MCHC (32.0-37.0) g/dL RDW (11.5-14.5) % Lymphocytes # (0.90-5.00) X 10*3/uL Eosinophils # (0.04-0.35) X 10*3/uL Anion Gap 12.90 H (4.00-12.00) mmol/L BUN 30.4 H (9.0-27.0) mg/dL Est GFR (CKD-EPI) 43 L (>=60) BUN/Creatinine Ratio 21.71 H (12.00-20.00) Ratio Glucose 138 H (70-110) mg/dL POC Glucose (mg/dL) (70-110) mg/dL Total Bilirubin 0.2 L (0.3-1.2) mg/dL Assessment and Plan Assessment: Right knee pain Right knee effusion Left lower extremity pain Back pain History of revision [id number] decompression and fusion, bilateral SI joint fusion (July 2023), stable Multiple medical comorbidities Plan: Weight-bear as tolerated Pain control, continue with current medications Icing elevating techniques were discussed GI DVT prophylaxis, continue current medication Other medical specialty recommendations appreciated Discharge planning: Orthopedically patient is stable for discharge, our follow- up information was placed in chart Time with Patient: Less than 30
[2023-12-31] MEDS ORDERED: POTASSIUM CHLORIDE ER 20 MEQ TAB.ER PO SCH (21:00)
--- NOTE | 2024-01-03 11:52 | PN ---
PROGRESS NOTE SUBJECTIVE: A 58-year-old white female, who appears to be doing better after her knee injection. She is starting to do better, walking. Her potassium is low, we are going to now increase her potassium and she can possibly go home. She is breathing better for pneumonia. Vital signs stable. Potassium is 2.8, we will replace that, and possibly check electrolytes prior to going home. If she is better, she can go home. OBJECTIVE: CARDIOVASCULAR: S1, S2. LUNGS: Transmitted upper sounds. GI: Soft. HEMATOLOGIC: Negative Homans. PSYCH: Fair mood and affect. NEUROLOGIC: Alert and oriented x3. PLAN: Continue current treatment. Follow up in next 24 to 48 hours and check her potassium and will go from there. Prognosis is guarded. MMODL / IJN: [id number] /
--- NOTE | 2024-01-03 11:52 | PN ---
PROGRESS NOTE SUBJECTIVE: Treat for aspiration pneumonia. OBJECTIVE: VITAL SIGNS: O2 92% on room air. Blood pressure 107 to 125 over 60s, pulse 60s to 70s, respiratory rate 18, temperature 98 cardiovascular, scattered wheeze. HEMATOLOGY: Negative for Homans. PSYCH: Fair mood and affect. CARDIOVASCULAR: S1, S2. MUSCULOSKELETAL: Moderate effusion right knee. LUNGS: Scattered rhonchi and wheeze. Acute hypoxemic respiratory failure secondary to pneumonia and COPD, asthma, hypokalemia, right knee pain, right knee effusion. X-rays of knees were reviewed. The patient had her knee drained also with a cortisone injection. Possible discharge home once her potassium is replaced and the patient improves from pulmonary standpoint. MMODL / IJN: [id number] /
--- NOTE | 2024-01-03 12:42 | PN ---
PROGRESS NOTE SUBJECTIVE: 58-year-old white female with aspiration pneumonia, COPD, asthma exacerbation, diastolic CHF. Continues on IV antibiotics, diuresis, steroids, updrafts. Prognosis guarded. Continue current treatment. Her swelling is improved. Her breathing is improved. OBJECTIVE: CARDIOVASCULAR: S1, S2. LUNGS: Transmitted upper sounds. GI: Soft, nontender. EXTREMITIES: About 2+ edema. ASSESSMENT: 1. Aspiration pneumonia. 2. Chronic obstructive pulmonary disease. 3. Asthma. 4. Acute on chronic respiratory failure. PLAN: Continue current treatment. Please see further orders. Continue breathing treatments, steroids, antibiotics. Prognosis, guarded. MMODL / IJN: [id number] /
--- NOTE | 2024-01-03 17:19 | HP ---
HISTORY AND PHYSICAL HISTORY: A 58-year-old white female who came into the hospital with shortness of breath and a 50- pound weight gain and swelling of the extremities. She is concerned about either CHF or kidney failure. She is on diuretics at home and she still has severe swelling. She is on Eliquis for atrial fibrillation and DVT/PE, and hyperphospholipid syndrome. She also injured her left leg and lower back. She is admitted for diuresis overnight with Cardiology consult. She has history of adrenal insufficiency, CHF, lupus, hyperphospholipid syndrome, neuropathy, autoimmune diseases, pulmonary embolism, seizure disorder, renal disease, pyoderma gangrenosum, hypopituitarism, and adrenal insufficiency. She also has a valve replacement x2. She has autonomic dysfunction, orthostatic hypotension, history of C difficile. PHYSICAL EXAMINATION: VITAL SIGNS: Temperature 97.9, blood pressure is 109-125 over 60s-80s, pulse is 70s to 80, respiratory rate 16-18. CARDIOVASCULAR: S1, S2. LUNGS: Transmitted breath sounds. GI: Soft. NEUROLOGIC: Cranial nerves intact. PSYCH: Fair mood and affect. HEENT: Normocephalic, atraumatic. ASSESSMENT: Acute on chronic congestive heart failure, chronic obstructive pulmonary disease, diastolic dysfunction. BNP so far is negative. We are going to give her some diuresis overnight and see how she does. Treated her for breathing issues. Prognosis guarded. Continue with Solu-Medrol and get Cardiology consult. MMODL / IJN: [id number] /
== END 2023-12-31 14:33 | disposition home or self-care (01) ==
LOC: EC 10:51 → 6NMEDSUR 15:19 → 5NMEDONC 17:19
PROVIDERS: ADMIT Family Medicine; ATTEND Family Medicine
DX: J96.20 Acute and chronic respiratory failure, unspecified whether with hypoxia or hypercapnia (principal); J45.901 Unspecified asthma with (acute) exacerbation; J69.0 Pneumonitis due to inhalation of food and vomit; M25.461 Effusion, right knee; D68.61 Antiphospholipid syndrome; J44.1 Chronic obstructive pulmonary disease with (acute) exacerbation; I50.33 Acute on chronic diastolic (congestive) heart failure; N18.30 Chronic kidney disease, stage 3 unspecified; I25.2 Old myocardial infarction; G43.909 Migraine, unspecified, not intractable, without status migrainosus; E78.5 Hyperlipidemia, unspecified; F43.10 Post-traumatic stress disorder, unspecified; G25.81 Restless legs syndrome; G40.909 Epilepsy, unspecified, not intractable, without status epilepticus; M19.90 Unspecified osteoarthritis, unspecified site; E27.40 Unspecified adrenocortical insufficiency; I48.91 Unspecified atrial fibrillation; I95.1 Orthostatic hypotension; W18.2XXA Fall in (into) shower or empty bathtub, initial encounter; Z86.718 Personal history of other venous thrombosis and embolism; Y93.E1 Activity, personal bathing and showering; Z79.01 Long term (current) use of anticoagulants; Z79.52 Long term (current) use of systemic steroids; Z79.899 Other long term (current) drug therapy; Z98.1 Arthrodesis status; Z80.0 Family history of malignant neoplasm of digestive organs; Z82.49 Family history of ischemic heart disease and other diseases of the circulatory system; Z86.711 Personal history of pulmonary embolism; Z95.0 Presence of cardiac pacemaker; Z95.2 Presence of prosthetic heart valve; Z86.19 Personal history of other infectious and parasitic diseases
CPT/HCPCS: 36410; 36415; 70450; 71046; 72100; 72125; 76937; 80053; 81003; 83605; 83735; 83880; 84132; 84145; 84484; 85025; 85610; 85730; 87636; 93005; 93306; 94640; 96365; 96366; 96375; 96376; 99285

== ENCOUNTER 2024-01-06 14:58 | Emergency (ER) | payer MEDICARE ==
[2024-01-06 15:33] VITALS: RESP 18; TEMP 98
[2024-01-06 16:40] LABS: Basophils % (A) 1 %; Eosinophils # (A) 0.4 k/uL (0-0.7); Eosinophils % (A) 5 %; HCT 43.8 % (34.0-46.0); HGB 14.3 gm/dL (11.4-16.0); Lymphocytes # (A) 1.4 k/uL (1.0-4.8); Lymphocytes % (A) 17 %; MCH 27.4 pg (25.0-35.0); MCHC 32.6 g/dL (31.0-37.0); MCV 83.9 fL (80.0-100.0); Mean Platelet Volume 8.1; Monocytes # (A) 0.5 k/uL (0-1.0); Monocytes % (A) 6 %; Neutrophils # (A) 5.9 k/uL (1.3-7.7); Neutrophils % (A) 70 %; Platelet Count 348 k/uL (150-450); RBC 5.21 m/uL (3.80-5.40); RDW 15.9 % (11.5-15.5); WBC 8.3 k/uL (3.8-10.6)
--- NOTE | 2024-01-06 16:41 | ED ---
Recheck HPI - General Source: patient, RN notes reviewed Mode of arrival: ambulatory Limitations: no limitations <Jessica Davenport - Last Filed: 01/06/24 16:40> <Cata Desir - Last Filed: 01/07/24 16:36> - General Chief Complaint: Recheck/Abnormal Lab/Rx Stated Complaint: abn labs Time Seen by Provider: 01/06/24 16:40 - History of Present Illness Initial Comments: Quick note: 58-year-old female presented to ER with a chief complaint of cramping hands and feet. Patient states she was released on Tuesday from hospitalization due to pneumonia. She states today she had noted bilateral upper EXTR and lower extremities are crampy, sweating and swelling. Patient has a history of lupus. She states this typically happens when she has hypokalemia. States usually when it is below 3.4. (Jessica Davenport) 58-year-old female well-known to our ER presenting with chief complaint of muscle cramping. She states she is having cramping all over her body but particularly in her hands and feet. She has history of hypokalemia, states that this typically happens when her potassium is below 3.4. She was released to the hospital on Tuesday after being treated here for pneumonia. She is currently on her last day of azithromycin. She is having no chest pain or difficulty breathing. No nausea or vomiting. Mild headache. No fever. (Cata Desir) - Related Data Home Medications Medication Instructions Recorded Confirmed Atorvastatin [Lipitor] 40 mg PO HS 09/24/21 12/26/23 Sertraline [Zoloft] 200 mg PO DAILY 09/24/21 12/26/23 Apixaban [Eliquis] 5 mg PO BID 05/29/22 12/26/23 busPIRone HCl [Buspar] 5 mg PO BID 06/11/22 12/26/23 Bumetanide [BUMEX] 2 mg PO DAILY 06/24/22 12/26/23 Fludrocortisone [Florinef] 0.1 mg PO DAILY 09/20/22 12/26/23 Potassium Chloride ER [K-Dur 20] 20 meq PO DAILY 01/12/23 12/26/23 Metoprolol Succinate (ER) [Toprol 50 mg PO DAILY 02/16/23 12/26/23 XL] rOPINIRole HCL [Requip] 2 mg PO HS 04/28/23 12/26/23 Bumetanide [BUMEX] 1 mg PO HS 08/12/23 12/26/23 Diphenhydramine 50mg Injection 50 mg IM Q6H PRN 08/12/23 12/26/23 Ipratropium Nebulized [Atrovent 0.5 mg INHALATION RT-QID PRN 08/12/23 12/26/23 Nebulized 0.2 MG/ML] Spironolactone [Aldactone] 50 mg PO HS 08/12/23 12/26/23 metOLazone [Zaroxolyn] 5 mg PO DAILY PRN 08/12/23 12/26/23 Budesonide/Glycopyr/Formoterol 2 puff INHALATION RT-BID 12/26/23 12/26/23 [Breztri Aerosphere Inhaler] Cyclobenzaprine [Flexeril] 5 mg PO TID 12/26/23 12/26/23 Diclofenac Sodium [Voltaren 2 - 4 gm TOPICAL TID PRN 12/26/23 12/26/23 Arthritis Pain 1% Gel] Gabapentin 600 mg PO BID 12/26/23 12/26/23 Midodrine [ProAmatine] 5 mg PO TID PRN 12/26/23 12/26/23 Ondansetron [Zofran] 4 mg PO TID PRN 12/26/23 12/26/23 Vitamin B-6(Unknown) 1 tab PO DAILY 12/26/23 12/26/23 Vitamin D3(Unknown) 1 tab PO DAILY 12/26/23 12/26/23 Previous Rx's Medication Instructions Recorded Magnesium Oxide [Mag-Ox] 400 mg PO DAILY 90 Days #90 tab 12/31/23 Potassium Chloride ER [K-Dur 20] 20 meq PO BID 30 Days #60 tab 12/31/23 Allergies Allergy/AdvReac Type Severity Reaction Status Date / Time Penicillins Allergy Severe Anaphylaxis Verified 01/06/24 15:33 vancomycin Allergy Severe Swelling Verified 01/06/24 15:33 in lips albuterol [From Ventolin HFA] Allergy Rapid Verified 01/06/24 15:33 Heart Rate cefepime Allergy Swelling Verified 01/06/24 15:33 clindamycin Allergy Anaphylaxis Verified 01/06/24 15:33 dexamethasone [From Decadron] Allergy severe Verified 01/06/24 15:33 pain, like needles in groin Influenza Virus Vaccines Allergy Anaphylaxis Verified 01/06/24 15:33 latex Allergy Itching Verified 01/06/24 15:33 and swelling morphine Allergy Anaphylaxis Verified 01/06/24 15:33 prochlorperazine Allergy severe Verified 01/06/24 15:33 [From Compazine] anxiety galcanezumab-gnlm AdvReac Confusion, Verified 01/06/24 15:33 [From Emgality Pen] increased blood pressure metoclopramide [From Reglan] AdvReac "felt like Verified 01/06/24 15:33 I needed to jump out of my skin" Review of Systems ROS Other: All systems not noted in ROS Statement are negative. <Jessica Davenport - Last Filed: 01/06/24 16:40> ROS Other: All systems not noted in ROS Statement are negative. <Cata Desir - Last Filed: 01/07/24 16:36> ROS Statement: Those systems with pertinent positive or pertinent negative responses have been documented in the HPI. 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 lupus, valve replacement x2 Last Myocardial Infarction Date:: 08/30/2018 History of Any Multi-Drug Resistant Organisms: C-DIFF Date of last positivie culture/infection: 03/02/23 MDRO Source:: Stool Past Surgical History: Back Surgery, Breast Surgery, Cardiac Valve Replacement, Section, Cholecystectomy, Heart Catheterization, Hysterectomy, Pacemaker Additional Past Surgical History / Comment(s): pacemaker d/t bradycardia/hypotension with last one place in 2013 in [place], [place], 3 lower back surgeries, bilateral breast reduction. 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. lamenectomy Past Anesthesia/Blood Transfusion Reactions: No Reported Reaction Additional Past Anesthesia/Blood Transfusion Reaction / Comment(s): blood tr ansfusion no issues Type of Cardiac Device: Permanent Pacemaker, Unknown Device Placement Date:: 2012 Past Psychological History: Anxiety, PTSD Smoking Status: Never smoker Past Alcohol Use History: None Reported Past Drug Use History: Marijuana - Past Family History Mother Additional Family Medical History / Comment(s): Mother at the age of 49 yrs after surgery for silicon breast implants with a leak that caused ARDS and DIC per pt (fibroid cysts) Father Family Medical History: Cancer, Hyperlipidemia, Hypertension Additional Family Medical History / Comment(s): Father is a colon cancer survivor. <Jessica Davenport - Last Filed: 01/06/24 16:40> General Exam Limitations: no limitations <Jessica Davenport - Last Filed: 01/06/24 16:40> Limitations: no limitations General appearance: alert, in distress (Patient is in pain and rolling around the bed) Head exam: Present: atraumatic, normocephalic, normal inspection Eye exam: Present: normal appearance, EOMI Neck exam: Present: normal inspection. Absent: meningismus Respiratory exam: Present: normal lung sounds bilaterally. Absent: respiratory distress, wheezes, rales, rhonchi, stridor Cardiovascular Exam: Present: regular rate, normal rhythm, normal heart sounds. Absent: systolic murmur, diastolic murmur, rubs, gallop, clicks Extremities exam: Present: normal inspection Neurological exam: Present: alert, oriented X3 Psychiatric exam: Present: normal affect, normal mood Skin exam: Present: warm, dry <Cata Desir - Last Filed: 01/07/24 16:36> - General Exam Comments Initial Comments: Visual Physical Exam Vital signs reviewed General: Well-appearing, nontoxic, no acute distress. Head: Normocephalic, atraumatic Eyes: PERRLA, EOMI ENT: Airway patent Chest: Nonlabored breathing Skin: No visual rash, normal skin tone Neuro: Alert and oriented 3 Musculoskeletal: No gross abnormalities edematous hands (Jessica Davenport) Course Vital Signs 01/06/24 01/06/24 01/06/24 15:31 19:33 21:48 Temperature 98 F Pulse Rate 75 80 76 Respiratory 18 18 18 Rate Blood Pressure 120/82 118/86 150/80 O2 Sat by Pulse 98 96 94 L Oximetry 01/07/24 00:28 Temperature Pulse Rate 90 Respiratory 18 Rate Blood Pressure 148/80 O2 Sat by Pulse 97 Oximetry Medical Decision Making - Lab Data Result diagrams: 01/06/24 16:30 <Jessica Davenport - Last Filed: 01/06/24 16:40> - Lab Data Result diagrams: 01/06/24 16:30 01/06/24 16:30 <Cata Desir - Last Filed: 01/07/24 16:36> - Medical Decision Making I performed the quick note portion of this chart. Electronically signed by Jessica Davenport PA-C (Jessica Davenport) Was pt. sent in by a medical professional or institution ([facility], [facility], urgent care, hospital, or half-way...) When possible be specific @ -No Did you speak to anyone other than the patient for history (EMS, parent, family, police, friend...)? What history was obtained from this source @ -No Did you review nursing and triage notes (agree or disagree)? Why? @ -I reviewed and agree with nursing and triage notes Were old charts reviewed (outside hosp., previous admission, EMS record, old EKG, old radiological studies, urgent care reports/EKG's, half-way records)? Report findings @ -No old charts were reviewed Differential Diagnosis (chest pain, altered mental status, abdominal pain women, abdominal pain men, vaginal bleeding, weakness, fever, dyspnea, syncope, headache, dizziness, GI bleed, back pain, seizure, CVA, palpatations, mental health, musculoskeletal)? @ -Differential Musculoskeletal Muscular strain, contusion, ligament sprain, fracture, arthritis, septic arthritis, bursitis, cellulitis, muscle spasm, nerve compression, DVT, arterial occlusion, herpes zoster, electrolyte abnormality, tumor.... This is not meant to be in all inclusive list EKG interpreted by me (3pts min.). @ -As above X-rays interpreted by me (1pt min.). @ -None done CT interpreted by me (1pt min.). @ -None done U/S interpreted by me (1pt. min.). @ -None done What testing was considered but not performed or refused? (CT, X-rays, U/S, labs)? Why? @ -None What meds were considered but not given or refused? Why? @ -None Did you discuss the management of the patient with other professionals (professionals i.e. , PA, [facility] [employer], lab, RT, psych nurse, healthcare social worker, mobile development manager, teacher, field artillery officer, case operator)? Give summary @ -No Was smoking cessation discussed for >3mins.? @ -No Was critical care preformed (if so, how long)? @ -No Were there social determinants of health that impacted care today? How? (Homelessness, low income, unemployed, alcoholism, drug addiction, transportation, low edu. Level, literacy, decrease access to med. care, care home, rehab)? @ -No Was there de-escalation of care discussed even if they declined (Discuss DNR or withdrawal of care, Hospice)? DNR status @ -No What co-morbidities impacted this encounter? (DM, HTN, Smoking, COPD, CAD, Cancer, CVA, ARF, Chemo, Hep., AIDS, mental health diagnosis, sleep apnea, morbid obesity)? @ -None Was patient admitted / discharged? Hospital course, mention meds given and route, prescriptions, significant lab abnormalities, going to OR and other pertinent info. @ -58-year-old female presenting with chief complaint of muscle cramping. History of hypokalemia. Workup is initiated by triage. Patient is later placed in a hallway bed and evaluated by myself. Potassium 3.2, patient is started on IV potassium replacement. BUN 39 creatinine 1.9, consistent with the patient's recent levels. Mild transaminitis. After potassium and pain medication patient reports improvement in her pain. Feels ready for discharge home. Follow-up with PCP. Report back to ER with any new or worsening symptoms. Discussed return parameters and answered all questions. Patient conveyed verbal understanding and agreed to the plan. I discussed this case in detail with my attending Dr. Moreno Undiagnosed new problem with uncertain prognosis? @ -No Drug Therapy requiring intensive monitoring for toxicity (Heparin, Nitro, Insulin, Cardizem)? @ -No Were any procedures done? @ -No Diagnosis/symptom? @ -Hypokalemia Acute, or Chronic, or Acute on Chronic? @ -Acute Uncomplicated (without systemic symptoms) or Complicated (systemic symptoms)? @ -Uncomplicated Side effects of treatment? @ -No Exacerbation, Progression, or Severe Exacerbation? @ -No Poses a threat to life or bodily function? How? (Chest pain, USA, VT, pneumonia, PE, COPD, DKA, ARF, appy, cholecystitis, CVA, Diverticulitis, Homicidal, Suicidal, threat to staff... and all critical care pts) @ -Unlikely at this time (Cata Desir) - Lab Data Lab Results 01/06/24 01/06/24 Range/Units 16:30 16:30 WBC 8.3 (3.8-10.6) k/uL RBC 5.21 (3.80-5.40) m/uL Hgb 14.3 (11.4-16.0) gm/dL Hct 43.8 (34.0-46.0) % MCV 83.9 (80.0-100.0) fL MCH 27.4 (25.0-35.0) pg MCHC 32.6 (31.0-37.0) g/dL RDW 15.9 H (11.5-15.5) % Plt Count 348 (150-450) k/uL MPV 8.1 Neutrophils % 70 % Lymphocytes % 17 % Monocytes % 6 % Eosinophils % 5 % Basophils % 1 % Neutrophils # 5.9 (1.3-7.7) k/uL Lymphocytes # 1.4 (1.0-4.8) k/uL Monocytes # 0.5 (0-1.0) k/uL Eosinophils # 0.4 (0-0.7) k/uL Basophils # 0.0 (0-0.2) k/uL Sodium 138 (137-145) mmol/L Potassium 3.2 L (3.5-5.1) mmol/L Chloride 92 L (98-107) mmol/L Carbon Dioxide 32 H (22-30) mmol/L Anion Gap 14 mmol/L BUN 39 H (7-17) mg/dL Creatinine 1.89 H (0.52-1.04) mg/dL Est GFR (CKD-EPI)AfAm 33 (>60 ml/min/1.73 sqM) Est GFR (CKD-EPI)NonAf 29 (>60 ml/min/1.73 sqM) Glucose 136 H (74-99) mg/dL Calcium 10.4 H (8.4-10.2) mg/dL Total Bilirubin 0.5 (0.2-1.3) mg/dL AST 46 H (14-36) U/L ALT 35 H (4-34) U/L Alkaline Phosphatase 89 (38-126) U/L Total Protein 8.8 H (6.3-8.2) g/dL Albumin 5.3 H (3.5-5.0) g/dL Disposition <Jessica Davenport - Last Filed: 01/06/24 16:40> Is patient prescribed a controlled substance at d/c from ED?: No Time of Disposition: 23:13 <Cata Desir - Last Filed: 01/07/24 16:36> Clinical Impression: Muscle cramps, Hypokalemia Disposition: HOME SELF-CARE Condition: Good Instructions (If sedation given, give patient instructions): Hypokalemia (ED) Additional Instructions: Follow-up with PCP. Report back to ER with any new or worsening symptoms. Referrals: Franklin Hassan MD [Primary Care Provider] - 1-2 days
[2024-01-06 16:56] LABS: ALT 35 U/L (4-34); AST 46 U/L (14-36); African American GFR (CKD) 33 (>60 ml/min/1.73 sqM); Albumin 5.3 g/dL (3.5-5.0); Alkaline Phosphatase 89 U/L (38-126); Anion Gap 14 mmol/L; Blood Urea Nitrogen 39 mg/dL (7-17); Calcium 10.4 mg/dL (8.4-10.2); Carbon Dioxide 32 mmol/L (22-30); Chloride 92 mmol/L (98-107); Glucose 136 mg/dL (74-99); Non-African American GFR(CKD) 29 (>60 ml/min/1.73 sqM); Potassium 3.2 mmol/L (3.5-5.1); Sodium 138 mmol/L (137-145); Total Bilirubin 0.5 mg/dL (0.2-1.3); Total Protein 8.8 g/dL (6.3-8.2)
[2024-01-06] MEDS ORDERED: Potassium Replacement Protocol 1 EACH MISC MISCELLANE PRN (18:00)
[2024-01-06] MEDS: HYDROmorphone 1 MG/ML 1 ML SYRINGE IVP STA (18:21)
[2024-01-06] MEDS: POTASSIUM CHLORIDE 10 MEQ in WATER FOR INJECTION 1 100ML.BAG IVPB SCH (18:23)
[2024-01-06] MEDS: DICYCLOMINE 10 MG/ML 2 ML AMP IM STA (19:59)
[2024-01-06] MEDS: diphenhydrAMINE 25 MG CAP PO STA (21:02)
[2024-01-06] MEDS: diphenhydrAMINE 50 MG/ML 1 ML VIAL IVP STA (21:16)
[2024-01-06] MEDS: HYDROmorphone 0.5 MG/0.5 ML SYRINGE IVP STA (23:10)
[2024-01-07 00:29] VITALS: BP 148/80; PULSE 90
== END 2024-01-07 00:29 | disposition home or self-care (01) ==
LOC: EC 14:58
CPT/HCPCS: 36415; 80053; 85025; 93005; 96365; 96366; 96372; 96375; 96376; 99284

== ENCOUNTER → 2024-01-06 | Outpatient (CLI) | payer MEDICARE ==
[2024-01-06 17:17] LABS: Blood Urea Nitrogen 37.8 mg/dL (9.0-27.0)
[2024-01-06 17:18] LABS: Carbon Dioxide 25.5 mmol/L (21.6-31.8); Chloride 93 mmol/L (96-109); Magnesium 2.6 mg/dL (1.5-2.4); Potassium 3.6 mmol/L (3.5-5.5); Sodium 137 mmol/L (135-145)
== END | disposition home or self-care (01) ==
LOC: LABWHC1 11:18
PROVIDERS: ATTEND Family Medicine
DX: I10 Essential (primary) hypertension (principal); N18.32 Chronic kidney disease, stage 3b
CPT/HCPCS: 36415; 80051; 82565; 83735; 84520

== ENCOUNTER 2024-01-08 20:25 | Observation (INO) | payer MEDICARE ==
--- NOTE | 2024-01-08 20:43 | ED ---
General Adult HPI - General Chief complaint: Chest Pain Stated complaint: Chest pain Time Seen by Provider: 01/08/24 20:29 Source: patient Mode of arrival: ambulatory Limitations: no limitations - History of Present Illness Initial comments: Dictation was produced using [employer] dictation software. please excuse any grammatical, word or spelling errors. Chief Complaint: 58-year-old female 2 days of chest pain History of Present Illness: Patient 58-year-old female presents to the emergency department with chest pressure for 2 days. Patient states she does have positive cardiac history. States that the pain radiates to her right shoulder. Denies any history of coronary artery stents. She does not know if she has any coronary artery disease. States that she recently had been diagnosed with pneumonia. The ROS documented in this emergency department record has been reviewed and confirmed by me. Those systems with pertinent positive or negative responses have been documented in the HPI. All other systems are other negative and/or noncontributory. - Related Data Home Medications Medication Instructions Recorded Confirmed Atorvastatin [Lipitor] 40 mg PO HS 09/24/21 12/26/23 Sertraline [Zoloft] 200 mg PO DAILY 09/24/21 12/26/23 Apixaban [Eliquis] 5 mg PO BID 05/29/22 12/26/23 busPIRone HCl [Buspar] 5 mg PO BID 06/11/22 12/26/23 Bumetanide [BUMEX] 2 mg PO DAILY 06/24/22 12/26/23 Fludrocortisone [Florinef] 0.1 mg PO DAILY 09/20/22 12/26/23 Potassium Chloride ER [K-Dur 20] 20 meq PO DAILY 01/12/23 12/26/23 Metoprolol Succinate (ER) [Toprol 50 mg PO DAILY 02/16/23 12/26/23 XL] rOPINIRole HCL [Requip] 2 mg PO HS 04/28/23 12/26/23 Bumetanide [BUMEX] 1 mg PO HS 08/12/23 12/26/23 Diphenhydramine 50mg Injection 50 mg IM Q6H PRN 08/12/23 12/26/23 Ipratropium Nebulized [Atrovent 0.5 mg INHALATION RT-QID PRN 08/12/23 12/26/23 Nebulized 0.2 MG/ML] Spironolactone [Aldactone] 50 mg PO HS 08/12/23 12/26/23 metOLazone [Zaroxolyn] 5 mg PO DAILY PRN 08/12/23 12/26/23 Budesonide/Glycopyr/Formoterol 2 puff INHALATION RT-BID 12/26/23 12/26/23 [Breztri Aerosphere Inhaler] Cyclobenzaprine [Flexeril] 5 mg PO TID 12/26/23 12/26/23 Diclofenac Sodium [Voltaren 2 - 4 gm TOPICAL TID PRN 12/26/23 12/26/23 Arthritis Pain 1% Gel] Gabapentin 600 mg PO BID 12/26/23 12/26/23 Midodrine [ProAmatine] 5 mg PO TID PRN 12/26/23 12/26/23 Ondansetron [Zofran] 4 mg PO TID PRN 12/26/23 12/26/23 Vitamin B-6(Unknown) 1 tab PO DAILY 12/26/23 12/26/23 Vitamin D3(Unknown) 1 tab PO DAILY 12/26/23 12/26/23 Previous Rx's Medication Instructions Recorded Magnesium Oxide [Mag-Ox] 400 mg PO DAILY 90 Days #90 tab 12/31/23 Potassium Chloride ER [K-Dur 20] 20 meq PO BID 30 Days #60 tab 12/31/23 Allergies Allergy/AdvReac Type Severity Reaction Status Date / Time Penicillins Allergy Severe Anaphylaxis Verified 01/08/24 20:28 vancomycin Allergy Severe Swelling Verified 01/08/24 20:28 in lips albuterol [From Ventolin HFA] Allergy Rapid Verified 01/08/24 20:28 Heart Rate cefepime Allergy Swelling Verified 01/08/24 20:28 clindamycin Allergy Anaphylaxis Verified 01/08/24 20:28 dexamethasone [From Decadron] Allergy severe Verified 01/08/24 20:28 pain, like needles in groin Influenza Virus Vaccines Allergy Anaphylaxis Verified 01/08/24 20:28 latex Allergy Itching Verified 01/08/24 20:28 and swelling morphine Allergy Anaphylaxis Verified 01/08/24 20:28 prochlorperazine Allergy severe Verified 01/08/24 20:28 [From Compazine] anxiety galcanezumab-gnlm AdvReac Confusion, Verified 01/08/24 20:28 [From Emgality Pen] increased blood pressure metoclopramide [From Reglan] AdvReac "felt like Verified 01/08/24 20:28 I needed to jump out of my skin" Review of Systems ROS Statement: Those systems with pertinent positive or pertinent negative responses have been documented in the HPI. ROS Other: All systems not noted in ROS Statement are negative. 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 lupus, valve replacement x2 Last Myocardial Infarction Date:: 08/30/2018 History of Any Multi-Drug Resistant Organisms: C-DIFF Date of last positivie culture/infection: 03/02/23 MDRO Source:: Stool Past Surgical History: Back Surgery, Breast Surgery, Cardiac Valve Replacement, Section, Cholecystectomy, Heart Catheterization, Hysterectomy, Pacemaker Additional Past Surgical History / Comment(s): pacemaker d/t bradycardia/hypotension with last one place in 2013 in [place], [place], 3 lower back surgeries, bilateral breast reduction. 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. lamenectomy Past Anesthesia/Blood Transfusion Reactions: No Reported Reaction Additional Past Anesthesia/Blood Transfusion Reaction / Comment(s): blood transfusion no issues Type of Cardiac Device: Permanent Pacemaker, Unknown Device Placement Date:: 2012 Past Psychological History: Anxiety, PTSD Smoking Status: Never smoker Past Alcohol Use History: Rare Past Drug Use History: Marijuana - Past Family History Mother Additional Family Medical History / Comment(s): Mother at the age of 49 yrs after surgery for silicon breast implants with a leak that caused ARDS and DIC per pt (fibroid cysts) Father Family Medical History: Cancer, Hyperlipidemia, Hypertension Additional Family Medical History / Comment(s): Father is a colon cancer survivor. General Exam - General Exam Comments Initial Comments: PHYSICAL EXAM: General Impression: Alert and oriented x3, not in acute distress HEENT: Normocephalic atraumatic, extra-ocular movements intact, pupils equal and reactive to light bilaterally, mucous membranes moist. Cardiovascular: Heart regular rate and rhythm Chest: Able to complete full sentences, no retractions, no tachypnea Abdomen: abdomen soft, non-tender, non-distended, no organomegaly Musculoskeletal: Pulses present and equal in all extremities, no peripheral edema Motor: no focal deficits noted Neurological: CN II-XII grossly intact, no focal motor or sensory deficits noted Skin: Intact with no visualized rashes Psych: Normal affect and mood Limitations: no limitations Course Vital Signs 01/08/24 01/08/24 20:26 20:37 Temperature 98.3 F 98.3 F Pulse Rate 91 70 Respiratory 18 18 Rate Blood Pressure 133/75 O2 Sat by Pulse 97 Oximetry EKG Findings - EKG Comments: EKG Findings:: My EKG interpretation: Ventricular rate 7, sinus rhythm,. 123, QRS 102, QTc 349. No CA prolongation, no QTC prolongation, no ST or T-wave changes noted. Overall, this EKG is unremarkable Medical Decision Making - Medical Decision Making Was pt. sent in by a medical professional or institution (, PA, [employer], urgent care, hospital, or prison...) When possible be specific @ -No Did you speak to anyone other than the patient for history (EMS, parent, family, police, friend...)? What history was obtained from this source @ -No Did you review nursing and triage notes (agree or disagree)? Why? @ -I reviewed and agree with nursing and triage notes Were old charts reviewed (outside hosp., previous admission, EMS record, old EKG, old radiological studies, urgent care reports/EKG's, prison records)? Report findings @ -Previous charting was reviewed showing that patient had been admitted multiple occasions for chest pain has had negative troponins for the past several months Differential Diagnosis (chest pain, altered mental status, abdominal pain women, abdominal pain men, vaginal bleeding, musculoskeletal, weakness, fever, dyspnea, syncope, headache, dizziness, GI bleed, back pain, seizure, CVA, palpatations, mental health)? @ -Differential Chest Pain: Stable Angina, Unstable Angina, STEMI, NSTEMI Aortic Dissection, Pneumothorax, Musculoskeletal, Esophageal Spasm GERD, Cholecystitis, Pancreatitis, Zoster, this is not meant to be an all-inclusive list. EKG interpreted by me (3pts min.). @ -None done X-rays interpreted by me (1pt min.). @ -Chest x-ray shows no acute processes CT interpreted by me (1pt min.). @ -None done U/S interpreted by me (1pt. min.). @ -None done What testing was considered but not performed or refused? (CT, X-rays, U/S, labs)? Why? @ -None What meds were considered but not given or refused? Why? @ -None Was smoking cessation discussed for >3mins.? @ -No Were there social determinants of health that impacted care today? How? (Homelessness, low income, unemployed, alcoholism, drug addiction, tr ansportation, low edu. Level, literacy, decrease access to med. care, custodial, rehab)? @ -No Was there de-escalation of care discussed even if they declined (Discuss DNR or withdrawal of care, Hospice)? DNR status @ -No What co-morbidities impacted this encounter? (DM, HTN, Smoking, COPD, CAD, Cancer, CVA, ARF, Chemo, Hep., AIDS, mental health diagnosis, sleep apnea, morbid obesity)? @ -None Was patient admitted / discharged? Hospital course, mention meds given and route, prescriptions, significant lab abnormalities, going to OR and other pertinent info. @ -58-year-old female presents to the emergency department yet again for chest pain. Vital signs stable. Laboratory evaluation is unremarkable. EKG is nonacute. Patient given aspirin will be admitted observation for cardiac monitoring cardiology consultation. Did you discuss the management of the patient with other professionals (pr ofessionals i.e. , PA, [employer], lab, RT, psych nurse, social work coordinator, metrologist, teacher, systems support officer, behavioral health case manager)? Give summary @ -No Was critical care preformed (if so, how long)? @ -No Undiagnosed new problem with uncertain prognosis? @ -No Drug Therapy requiring intensive monitoring for toxicity (Heparin, Nitro, Insulin, Cardizem)? @ -No Were any procedures done? @ -No Diagnosis/symptom? Acute, or Chronic, or Acute on Chronic? Uncomplicated (without systemic symptoms) or Complicated (systemic symptoms)? @ -Chest pain Side effects of treatment? @ -No Exacerbation, Progression, or Severe Exacerbation? @ -No Poses a threat to life or bodily function? How? (Chest pain, USA, IA, pneumonia, PE, COPD, DKA, ARF, appy, cholecystitis, CVA, Diverticulitis, Homicidal, Suicidal, threat to staff... and all critical care pts) @ -yes - Lab Data Result diagrams: 01/08/24 21:32 01/08/24 21:32 Lab Results 01/08/24 01/08/24 01/08/24 Range/Units 21:32 21:32 21:32 WBC 9.3 (3.8-10.6) k/uL RBC 4.58 (3.80-5.40) m/uL Hgb 13.0 (11.4-16.0) gm/dL Hct 38.5 (34.0-46.0) % MCV 84.1 (80.0-100.0) fL MCH 28.3 (25.0-35.0) pg MCHC 33.7 (31.0-37.0) g/dL RDW 15.7 H (11.5-15.5) % Plt Count 306 (150-450) k/uL MPV 7.9 Neutrophils % 80 % Lymphocytes % 12 % Monocytes % 4 % Eosinophils % 2 % Basophils % 0 % Neutrophils # 7.4 (1.3-7.7) k/uL Lymphocytes # 1.1 (1.0-4.8) k/uL Monocytes # 0.4 (0-1.0) k/uL Eosinophils # 0.2 (0-0.7) k/uL Basophils # 0.0 (0-0.2) k/uL PT 11.1 (10.0-12.5) sec INR 1.0 (<1.2) APTT 27.8 (22.0-30.0) sec Sodium 138 (137-145) mmol/L Potassium 2.9 L (3.5-5.1) mmol/L Chloride 97 L (98-107) mmol/L Carbon Dioxide 27 (22-30) mmol/L Anion Gap 14 mmol/L BUN 33 H (7-17) mg/dL Creatinine 1.26 H (0.52-1.04) mg/dL Est GFR (CKD-EPI)AfAm 54 (>60 ml/min/1.73 sqM) Est GFR (CKD-EPI)NonAf 47 (>60 ml/min/1.73 sqM) Glucose 102 H (74-99) mg/dL Calcium 10.0 (8.4-10.2) mg/dL Magnesium 1.8 (1.6-2.3) mg/dL Total Bilirubin 0.4 (0.2-1.3) mg/dL AST 41 H (14-36) U/L ALT 29 (4-34) U/L Alkaline Phosphatase 82 (38-126) U/L Troponin I (0.000-0.034) ng/mL Total Protein 7.5 (6.3-8.2) g/dL Albumin 4.7 (3.5-5.0) g/dL 01/08/24 Range/Units 21:32 WBC (3.8-10.6) k/uL RBC (3.80-5.40) m/uL Hgb (11.4-16.0) gm/dL Hct (34.0-46.0) % MCV (80.0-100.0) fL MCH (25.0-35.0) pg MCHC (31.0-37.0) g/dL RDW (11.5-15.5) % Plt Count (150-450) k/uL MPV Neutrophils % % Lymphocytes % % Monocytes % % Eosinophils % % Basophils % % Neutrophils # (1.3-7.7) k/uL Lymphocytes # (1.0-4.8) k/uL Monocytes # (0-1.0) k/uL Eosinophils # (0-0.7) k/uL Basophils # (0-0.2) k/uL PT (10.0-12.5) sec INR (<1.2) APTT (22.0-30.0) sec Sodium (137-145) mmol/L Potassium (3.5-5.1) mmol/L Chloride (98-107) mmol/L Carbon Dioxide (22-30) mmol/L Anion Gap mmol/L BUN (7-17) mg/dL Creatinine (0.52-1.04) mg/dL Est GFR (CKD-EPI)AfAm (>60 ml/min/1.73 sqM) Est GFR (CKD-EPI)NonAf (>60 ml/min/1.73 sqM) Glucose (74-99) mg/dL Calcium (8.4-10.2) mg/dL Magnesium (1.6-2.3) mg/dL Total Bilirubin (0.2-1.3) mg/dL AST (14-36) U/L ALT (4-34) U/L Alkaline Phosphatase (38-126) U/L Troponin I <0.012 (0.000-0.034) ng/mL Total Protein (6.3-8.2) g/dL Albumin (3.5-5.0) g/dL Disposition Clinical Impression: Chest pain Disposition: ADMITTED IP TO THIS HOSP Condition: Fair Referrals: Franklin Hassan MD [Primary Care Provider] - 1-2 days Decision Time: 22:42
[2024-01-08] MEDS: ASPIRIN 81 MG PO STA (21:01)
--- NOTE | 2024-01-08 21:28 | XR ---
EXAMINATION TYPE: XR chest 2V DATE OF EXAM: 01/08/2024 9:15 PM CLINICAL INDICATION: Female, 58 years old with history of Chest Pain; [facility] COMPARISON: 12/26/2023 TECHNIQUE: XR chest 2V Frontal view of the chest. FINDINGS: Lungs/Pleura: Prominent interstitial lung markings are seen scattered throughout the lungs. No eviden ce of focal consolidation, pneumothorax or pleural effusion. Pulmonary vascularity: Unremarkable. Heart/mediastinum: Cardiomediastinal silhouette is unremarkable. A loop recorder projects over the le ft thorax over the heart.Single-lead cardiac conduction device overlying the right hemithorax with le ad projecting over the right ventricle. valve repair changes. Musculoskeletal: No acute osseous pathology. There is lower spine fixation hardware is present. Other findings: None IMPRESSION: Chronic changes without acute pulmonary process. No significant change from prior.
[2024-01-08 21:44] LABS: Basophils % (A) 0 %; Eosinophils # (A) 0.2 k/uL (0-0.7); Eosinophils % (A) 2 %; HCT 38.5 % (34.0-46.0); Lymphocytes # (A) 1.1 k/uL (1.0-4.8); Lymphocytes % (A) 12 %; MCH 28.3 pg (25.0-35.0); MCHC 33.7 g/dL (31.0-37.0); MCV 84.1 fL (80.0-100.0); Mean Platelet Volume 7.9; Monocytes # (A) 0.4 k/uL (0-1.0); Monocytes % (A) 4 %; Neutrophils # (A) 7.4 k/uL (1.3-7.7); Neutrophils % (A) 80 %; Platelet Count 306 k/uL (150-450); RBC 4.58 m/uL (3.80-5.40); RDW 15.7 % (11.5-15.5); WBC 9.3 k/uL (3.8-10.6)
[2024-01-08 22:04] LABS: Partial Thromboplastin Time 27.8 sec (22.0-30.0); Prothrombin Time 11.1 sec (10.0-12.5)
[2024-01-08 22:08] LABS: ALT 29 U/L (4-34); AST 41 U/L (14-36); African American GFR (CKD) 54 (>60 ml/min/1.73 sqM); Albumin 4.7 g/dL (3.5-5.0); Alkaline Phosphatase 82 U/L (38-126); Anion Gap 14 mmol/L; Blood Urea Nitrogen 33 mg/dL (7-17); Carbon Dioxide 27 mmol/L (22-30); Chloride 97 mmol/L (98-107); Glucose 102 mg/dL (74-99); Magnesium 1.8 mg/dL (1.6-2.3); Non-African American GFR(CKD) 47 (>60 ml/min/1.73 sqM); Potassium 2.9 mmol/L (3.5-5.1); Sodium 138 mmol/L (137-145); Total Bilirubin 0.4 mg/dL (0.2-1.3); Total Protein 7.5 g/dL (6.3-8.2)
[2024-01-08] MEDS: POTASSIUM CHLORIDE ER 20 MEQ TAB.ER PO STA (22:39)
[2024-01-08] MEDS: NITROGLYCERIN SL TABS 0.4 MG TAB SUBLINGUAL PRN (23:37)
[2024-01-09] MEDS: ONDANSETRON 4 MG/2 ML VIAL IVP PRN (02:38)
[2024-01-09] MEDS: HYDROcodone/APAP 7.5-325MG 1 EACH TAB PO PRN (02:38)
[2024-01-09] MEDS: HYDROmorphone 0.5 MG/0.5 ML SYRINGE IVP PRN (06:17)
[2024-01-09] MEDS: diphenhydrAMINE 50 MG/ML 1 ML VIAL IVP STA (06:49)
[2024-01-09] MEDS ORDERED: MIDODRINE 5 MG TAB PO PRN (08:55)
[2024-01-09] MEDS ORDERED: ONDANSETRON 4 MG TAB PO PRN (08:55)
[2024-01-09] MEDS ORDERED: metOLazone 5 MG TAB PO PRN (08:55)
[2024-01-09] MEDS ORDERED: IPRATROPIUM 0.5 MG/2.5 ML NEBU INHALATION PRN (08:55)
[2024-01-09] MEDS ORDERED: ASPIRIN 325 MG TAB PO SCH (09:00)
[2024-01-09] MEDS: busPIRone HCl 5 MG TAB PO SCH (09:25)
[2024-01-09] MEDS: GABAPENTIN 300 MG CAP PO SCH (09:25)
[2024-01-09] MEDS: METOPROLOL SUCCINATE (ER) 50 MG TAB.ER.24H PO SCH (09:26)
[2024-01-09] MEDS: MAGNESIUM OXIDE 400 MG TAB PO SCH (09:26)
[2024-01-09] MEDS: APIXABAN 5 MG TAB PO SCH (09:26)
[2024-01-09] MEDS: POTASSIUM CHLORIDE ER 20 MEQ TAB.ER PO SCH (09:26)
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
[2024-01-09 10:19] LABS: Chol/HDL Ratio 2.63 Ratio; LDL Cholesterol,Calculated 77.3 mg/dL (0.0-131.0)
[2024-01-09] MEDS: PYRIDOXINE 50 MG TAB PO SCH (11:08)
[2024-01-09] MEDS: FLUDROCORTISONE 0.1 MG TAB PO SCH (11:08)
[2024-01-09] MEDS: CYCLOBENZAPRINE 5 MG TAB PO SCH (11:08)
[2024-01-09] MEDS: SERTRALINE 100 MG TAB PO SCH (11:08)
[2024-01-09] MEDS: BUMETANIDE 1 MG TAB PO SCH (11:08)
[2024-01-09] MEDS: VITAMIN D3 PO SCH (11:12)
[2024-01-09 14:58] VITALS: BP 128/90; PULSE 81; RESP 18; TEMP 99.4
[2024-01-09] MEDS ORDERED: IPRATROPIUM 0.5 MG/2.5 ML NEBU INHALATION SCH (20:00)
[2024-01-09] MEDS ORDERED: SYMBICORT 160-4.5 MCG INHALER INHALATION SCH (20:00)
[2024-01-09] MEDS ORDERED: ATORVASTATIN 40 MG TAB PO SCH (21:00)
[2024-01-09] MEDS ORDERED: SPIRONOLACTONE 25 MG TAB PO SCH (21:00)
[2024-01-09] MEDS ORDERED: BUMETANIDE 1 MG TAB PO SCH (21:00)
== END 2024-01-09 16:34 | disposition home or self-care (01) ==
LOC: EC 20:25 → 6NMEDSUR 22:39
PROVIDERS: ADMIT Family Medicine; ATTEND Family Medicine
DX: R07.89 Other chest pain (principal); E87.6 Hypokalemia; N18.9 Chronic kidney disease, unspecified; I50.30 Unspecified diastolic (congestive) heart failure; E78.5 Hyperlipidemia, unspecified; G40.909 Epilepsy, unspecified, not intractable, without status epilepticus; D68.61 Antiphospholipid syndrome; M32.9 Systemic lupus erythematosus, unspecified; M25.511 Pain in right shoulder; Z79.01 Long term (current) use of anticoagulants; Z79.52 Long term (current) use of systemic steroids; Z79.899 Other long term (current) drug therapy; Z79.51 Long term (current) use of inhaled steroids; Z88.0 Allergy status to penicillin; Z88.1 Allergy status to other antibiotic agents; Z88.5 Allergy status to narcotic agent; Z88.7 Allergy status to serum and vaccine; Z88.8 Allergy status to other drugs, medicaments and biological substances; Z91.040 Latex allergy status; Z95.2 Presence of prosthetic heart valve; Z95.0 Presence of cardiac pacemaker; Z86.711 Personal history of pulmonary embolism; Z87.01 Personal history of pneumonia (recurrent)
CPT/HCPCS: 36415; 71046; 80053; 80061; 83735; 84132; 84484; 85025; 85610; 85730; 93005; 96374; 96375; 96376; 99285

== ENCOUNTER 2024-01-18 22:57 | Emergency (ER) | payer MEDICARE ==
--- NOTE | 2024-01-18 23:23 | ED ---
General Adult HPI - General Chief complaint: Chest Pain Stated complaint: DAVID Time Seen by Provider: 01/18/24 23:22 Source: patient, family Mode of arrival: wheelchair Limitations: no limitations - History of Present Illness Initial comments: Dania is a 58-year-old female with extensive past medical history who presents to the ER today for evaluation of chest pain and difficulty breathing. Patient has extensive history of multiple PEs she is currently anticoagulated, she has CHF she is compliant with her Bumex 3 mg daily she had recent admission last week for chest pain with negative workup. States she just feels like she cannot catch her breath and has pressure throughout her chest all day today. Patient reports she was recently treated for pneumonia and feels like she just cannot get better. - Related Data Home Medications Medication Instructions Recorded Confirmed Atorvastatin [Lipitor] 40 mg PO HS 09/24/21 01/09/24 Sertraline [Zoloft] 200 mg PO DAILY 09/24/21 01/09/24 Apixaban [Eliquis] 5 mg PO BID 05/29/22 01/09/24 busPIRone HCl [Buspar] 5 mg PO BID 06/11/22 01/09/24 Bumetanide [BUMEX] 2 mg PO DAILY 06/24/22 01/09/24 Fludrocortisone [Florinef] 0.1 mg PO DAILY 09/20/22 01/09/24 Metoprolol Succinate (ER) [Toprol 50 mg PO DAILY 02/16/23 01/09/24 XL] rOPINIRole HCL [Requip] 2 mg PO HS 04/28/23 01/09/24 Bumetanide [BUMEX] 1 mg PO HS 08/12/23 01/09/24 Diphenhydramine 50mg Injection 50 mg IM Q6H PRN 08/12/23 01/09/24 Ipratropium Nebulized [Atrovent 0.5 mg INHALATION RT-QID PRN 08/12/23 01/09/24 Nebulized 0.2 MG/ML] Spironolactone [Aldactone] 50 mg PO HS 08/12/23 01/09/24 metOLazone [Zaroxolyn] 5 mg PO DAILY PRN 08/12/23 01/09/24 Budesonide/Glycopyr/Formoterol 2 puff INHALATION RT-BID 12/26/23 01/09/24 [Breztri Aerosphere Inhaler] Cyclobenzaprine [Flexeril] 5 mg PO TID 12/26/23 01/09/24 Diclofenac Sodium [Voltaren 2 - 4 gm TOPICAL TID PRN 12/26/23 01/09/24 Arthritis Pain 1% Gel] Gabapentin 600 mg PO BID 12/26/23 01/09/24 Midodrine [ProAmatine] 5 mg PO TID PRN 12/26/23 01/09/24 Ondansetron [Zofran] 4 mg PO TID PRN 12/26/23 01/09/24 Vitamin B-6(Unknown) 1 tab PO DAILY 12/26/23 01/09/24 Vitamin D3(Unknown) 1 tab PO DAILY 12/26/23 01/09/24 Previous Rx's Medication Instructions Recorded Magnesium Oxide [Mag-Ox] 400 mg PO DAILY 90 Days #90 tab 12/31/23 Potassium Chloride ER [K-Dur 20] 20 meq PO BID 30 Days #60 tab 12/31/23 Allergies Allergy/AdvReac Type Severity Reaction Status Date / Time Penicillins Allergy Severe Anaphylaxis Verified 01/18/24 23:01 vancomycin Allergy Severe Swelling Verified 01/18/24 23:01 in lips cefepime Allergy Swelling Verified 01/18/24 23:01 clindamycin Allergy Anaphylaxis Verified 01/18/24 23:01 Influenza Virus Vaccines Allergy Anaphylaxis Verified 01/18/24 23:01 latex Allergy Itching Verified 01/18/24 23:01 and swelling morphine Allergy Anaphylaxis Verified 01/18/24 23:01 albuterol [From Ventolin HFA] AdvReac Rapid Verified 01/18/24 23:01 Heart Rate dexamethasone [From Decadron] AdvReac severe Verified 01/18/24 23:01 pain, like needles in groin [id number] AdvReac Confusion, Verified 01/18/24 23:01 [From Emgality Pen] increased blood pressure metoclopramide [From Reglan] AdvReac "felt like Verified 01/18/24 23:01 I needed to jump out of my skin" prochlorperazine AdvReac severe Verified 01/18/24 23:01 [From Compazine] anxiety Review of Systems ROS Statement: Those systems with pertinent positive or pertinent negative responses have been documented in the HPI. ROS Other: All systems not noted in ROS Statement are negative. 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 Patient states past history of C-Diff from 03/2023. Last Myocardial Infarction Date:: 08/30/2018 History of Any Multi-Drug Resistant Organisms: None Reported Date of last positivie culture/infection: 03/02/23 MDRO Source:: Stool Past Surgical History: Back Surgery, Breast Surgery, Cardiac Valve Replacement, Section, Cholecystectomy, Heart Catheterization, Hysterectomy, Pacemaker Additional Past Surgical History / Comment(s): pacemaker d/t bradycardia/hypotension with last one place in 2013 in [place], [place], 3 lower back surgeries, bilateral breast reduction. 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. lamenectomy Past Anesthesia/Blood Transfusion Reactions: No Reported Reaction Additional Past Anesthesia/Blood Transfusion Reaction / Comment(s): blood transfusion no issues Type of Cardiac Device: Permanent Pacemaker, Unknown Device Placement Date:: 2012 Past Psychological History: Anxiety, PTSD Smoking Status: Never smoker Past Alcohol Use History: Rare Past Drug Use History: Marijuana - Past Family History Mother Additional Family Medical History / Comment(s): Mother at the age of 49 yrs after surgery for silicon breast implants with a leak that caused ARDS and DIC per pt (fibroid cysts) Father Family Medical History: Cancer, Hyperlipidemia, Hypertension Additional Family Medical History / Comment(s): Father is a colon cancer abdirahman vivor. General Exam Limitations: no limitations General appearance: alert Head exam: Present: atraumatic Eye exam: Present: PERRL Respiratory exam: Present: rales, prolonged expiratory. Absent: respiratory distress Cardiovascular Exam: Present: regular rate GI/Abdominal exam: Present: soft. Absent: distended Rectal exam: Present: deferred Extremities exam: Present: pedal edema Neurological exam: Present: alert, oriented X3 Psychiatric exam: Present: normal affect, normal mood Skin exam: Present: warm, dry Course Vital Signs 01/18/24 01/19/24 01/19/24 22:58 01:24 05:00 Temperature 98.4 F 98.5 F Pulse Rate 71 70 71 Respiratory 22 18 18 Rate Blood Pressure 131/78 139/85 111/74 O2 Sat by Pulse 98 99 97 Oximetry EKG Findings - EKG Comments: EKG Findings:: EG interpreted by me EKG obtained due to complaints of pain and shortness of breath EKG obtained at 2308 rate is 70 rhythm is atrial paced narrow complex. WI 171 QRS 92 QTc 430 there are no acute ST elevations or depressions no evidence of acute ischemia or infarction. Medical Decision Making - Medical Decision Making Was pt. sent in by a medical professional or institution (, PA, DIRECTOR OF SERVICES, urgent care, hospital, or skilled nursing...) When possible be specific @ -No Did you speak to anyone other than the patient for history (EMS, parent, family, police, friend...)? What history was obtained from this source @ - Did you review nursing and triage notes (agree or disagree)? Why? @ -I reviewed and agree with nursing and triage notes Were old charts reviewed (outside hosp., previous admission, EMS record, old EKG, old radiological studies, urgent care reports/EKG's, skilled nursing records)? Report findings @ -Previous admissions and imaging were reviewed Differential Diagnosis (chest pain, altered mental status, abdominal pain women, abdominal pain men, vaginal bleeding, weakness, fever, dyspnea, syncope, heada marissa, dizziness, GI bleed, back pain, seizure, CVA, palpatations, mental health)? @ -Differential Chest Pain: Stable Angina, Unstable Angina, STEMI, NSTEMI Aortic Dissection, Pneumothorax, Musculoskeletal, Esophageal Spasm GERD, Cholecystitis, Pancreatitis, Zoster, this is not meant to be an all-inclusive list. Differential Dyspnea: Coronary syndrome, arrhythmia, tamponade, asthma, COPD, pulmonary embolism, pneumonia, pneumothorax, pulmonary effusion, anaphylaxis, diabetic ketoacidosis, flailed chest, pulmonary contusion, diaphragmatic rupture, anemia, neuromuscular, this is not meant to be an all-inclusive list. EKG interpreted by me (3pts min.). @ -As above X-rays interpreted by me (1pt min.). @ -None done CT interpreted by me (1pt min.). @ -No Pulmonary embolism U/S interpreted by me (1pt. min.). @ -None done What testing was considered but not performed or refused? (CT, X-rays, U/S, labs)? Why? @ -None What meds were considered but not given or refused? Why? @ -None Did you discuss the management of the patient with other professionals (professionals i.e. , PA, DIRECTOR OF SERVICES, lab, RT, psych nurse, psychiatric social worker, print line tailer, teacher, chief privacy officer, top case assembler)? Give summary @ -No Was smoking cessation discussed for >3mins.? @ -No Was critical care preformed (if so, how long)? @ -No Were there social determinants of health that impacted care today? How? (Homelessness, low income, unemployed, alcoholism, drug addiction, transportation, low edu. Level, literacy, decrease access to med. care, fci, rehab)? @ -No Was there de-escalation of care discussed even if they declined (Discuss DNR or withdrawal of care, Hospice)? DNR status @ -No What co-morbidities impacted this encounter? (DM, HTN, Smoking, COPD, CAD, Cancer, CVA, ARF, Chemo, Hep., AIDS, mental health diagnosis, sleep apnea, morbid obesity)? @ -Hypertension CHF Was patient admitted / discharged? Hospital course, mention meds given and route, prescriptions, significant lab abnormalities, going to OR and other pertinent info. @ -Discharged Was seen and evaluated history is obtained from the patient. Patient well-known to our hospital due to her multiple comorbidities. Patient presenting with ple uritic-like chest pain and shortness of breath. Labs and imaging were obtained and there were no acute findings. Patient was treated with 2 doses of Dilaudid while in the emergency department. Upon my reevaluation the patient was sleeping soundly. Patient did not wake to voice but did wake to minimal physical stimuli. Upon waking patient again began asking for additional narcotic pain medication. I advised the patient that her 2 doses are adequate and that based on how deeply she was sleeping I do not feel it is safe to administer any additional narcotics. I recommend supportive care with Tylenol she can follow-up with her tenderizer tender outpatient. Undiagnosed new problem with uncertain prognosis? @ -No Drug Therapy requiring intensive monitoring for toxicity (Heparin, Nitro, Insuli n, Cardizem)? @ -No Were any procedures done? @ -No Diagnosis/symptom? @ -Pleuritic chest pain, chronic pain, drug-seeking Acute, or Chronic, or Acute on Chronic? @ -Default Uncomplicated (without systemic symptoms) or Complicated (systemic symptoms)? @ -Default Side effects of treatment? @ -No Exacerbation, Progression, or Severe Exacerbation? @ -No Poses a threat to life or bodily function? How? (Chest pain, [place], [place], pneumonia, PE, COPD, DKA, ARF, appy, cholecystitis, CVA, Diverticulitis, Homicidal, Suicidal, threat to staff... and all critical care pts) @ -No - Lab Data Result diagrams: 01/18/24 23:56 01/18/24 23:56 Lab Results 01/18/24 01/18/24 01/18/24 Range/Units 23:56 23:56 23:56 WBC 8.3 (3.8-10.6) k/uL RBC 4.60 (3.80-5.40) m/uL Hgb 12.7 (11.4-16.0) gm/dL Hct 39.4 (34.0-46.0) % MCV 85.5 (80.0-100.0) fL MCH 27.6 (25.0-35.0) pg MCHC 32.3 (31.0-37.0) g/dL RDW 15.6 H (11.5-15.5) % Plt Count 293 (150-450) k/uL MPV 8.0 Neutrophils % 78 % Lymphocytes % 12 % Monocytes % 5 % Eosinophils % 4 % Basophils % 0 % Neutrophils # 6.4 (1.3-7.7) k/uL Lymphocytes # 1.0 (1.0-4.8) k/uL Monocytes # 0.4 (0-1.0) k/uL Eosinophils # 0.3 (0-0.7) k/uL Basophils # 0.0 (0-0.2) k/uL PT 10.0 (10.0-12.5) sec INR 0.9 (<1.2) APTT 25.5 (22.0-30.0) sec D-Dimer (<0.60) mg/L FEU Sodium 140 (137-145) mmol/L Potassium 3.9 (3.5-5.1) mmol/L Chloride 101 (98-107) mmol/L Carbon Dioxide 29 (22-30) mmol/L Anion Gap 10 mmol/L BUN 25 H (7-17) mg/dL Creatinine 1.20 H (0.52-1.04) mg/dL Est GFR (CKD-EPI)AfAm 57 (>60 ml/min/1.73 sqM) Est GFR (CKD-EPI)NonAf 50 (>60 ml/min/1.73 sqM) Glucose 98 (74-99) mg/dL Calcium 10.0 (8.4-10.2) mg/dL Magnesium 2.1 (1.6-2.3) mg/dL Total Bilirubin 0.2 (0.2-1.3) mg/dL AST 28 (14-36) U/L ALT 23 (4-34) U/L Alkaline Phosphatase 71 (38-126) U/L Troponin I (0.000-0.034) ng/mL NT-Pro-B Natriuret Pep 764 pg/mL Total Protein 7.0 (6.3-8.2) g/dL Albumin 4.4 (3.5-5.0) g/dL 01/18/24 01/19/24 Range/Units 23:56 00:00 WBC (3.8-10.6) k/uL RBC (3.80-5.40) m/uL Hgb (11.4-16.0) gm/dL Hct (34.0-46.0) % MCV (80.0-100.0) fL MCH (25.0-35.0) pg MCHC (31.0-37.0) g/dL RDW (11.5-15.5) % Plt Count (150-450) k/uL MPV Neutrophils % % Lymphocytes % % Monocytes % % Eosinophils % % Basophils % % Neutrophils # (1.3-7.7) k/uL Lymphocytes # (1.0-4.8) k/uL Monocytes # (0-1.0) k/uL Eosinophils # (0-0.7) k/uL Basophils # (0-0.2) k/uL PT (10.0-12.5) sec INR (<1.2) APTT (22.0-30.0) sec D-Dimer 0.60 H (<0.60) mg/L FEU Sodium (137-145) mmol/L Potassium (3.5-5.1) mmol/L Chloride (98-107) mmol/L Carbon Dioxide (22-30) mmol/L Anion Gap mmol/L BUN (7-17) mg/dL Creatinine (0.52-1.04) mg/dL Est GFR (CKD-EPI)AfAm (>60 ml/min/1.73 sqM) Est GFR (CKD-EPI)NonAf (>60 ml/min/1.73 sqM) Glucose (74-99) mg/dL Calcium (8.4-10.2) mg/dL Magnesium (1.6-2.3) mg/dL Total Bilirubin (0.2-1.3) mg/dL AST (14-36) U/L ALT (4-34) U/L Alkaline Phosphatase (38-126) U/L Troponin I <0.012 (0.000-0.034) ng/mL NT-Pro-B Natriuret Pep pg/mL Total Protein (6.3-8.2) g/dL Albumin (3.5-5.0) g/dL Disposition Clinical Impression: Atypical chest pain, Drug-seeking behavior Disposition: HOME SELF-CARE Condition: Stable Instructions (If sedation given, give patient instructions): Chest Pain (ED) Is patient prescribed a controlled substance at d/c from ED?: No Referrals: Franklin Hassan MD [Primary Care Provider] - 1-2 days
--- NOTE | 2024-01-18 23:37 | XR ---
EXAMINATION TYPE: XR chest 2V DATE OF EXAM: 01/18/2024 COMPARISON: Chest x-ray 10 days earlier HISTORY: Chest pain TECHNIQUE: Frontal and lateral views of the chest are obtained. FINDINGS: Diminished inspiration current study. There is no suspicious new focal air space opacity, p leural effusion, or pneumothorax seen. Persistent cardiomegaly with single lead pacemaker and surgica l change at level of aortic root. Overlying loop recorder is redemonstrated. The osseous structures are intact. IMPRESSION: Cardiomegaly without acute pulmonary process. [facility], , 01/18/2024 11:34 PM
[2024-01-18] MEDS: ASPIRIN 81 MG PO STA (23:51)
[2024-01-19 00:08] LABS: Basophils % (A) 0 %; Eosinophils # (A) 0.3 k/uL (0-0.7); Eosinophils % (A) 4 %; HCT 39.4 % (34.0-46.0); HGB 12.7 gm/dL (11.4-16.0); Lymphocytes % (A) 12 %; MCH 27.6 pg (25.0-35.0); MCHC 32.3 g/dL (31.0-37.0); MCV 85.5 fL (80.0-100.0); Monocytes # (A) 0.4 k/uL (0-1.0); Monocytes % (A) 5 %; Neutrophils # (A) 6.4 k/uL (1.3-7.7); Neutrophils % (A) 78 %; Platelet Count 293 k/uL (150-450); RDW 15.6 % (11.5-15.5); WBC 8.3 k/uL (3.8-10.6)
[2024-01-19 00:19] LABS: INR 0.9 (<1.2); Partial Thromboplastin Time 25.5 sec (22.0-30.0)
[2024-01-19 00:48] LABS: ALT 23 U/L (4-34); AST 28 U/L (14-36); African American GFR (CKD) 57 (>60 ml/min/1.73 sqM); Albumin 4.4 g/dL (3.5-5.0); Alkaline Phosphatase 71 U/L (38-126); Anion Gap 10 mmol/L; Blood Urea Nitrogen 25 mg/dL (7-17); Carbon Dioxide 29 mmol/L (22-30); Chloride 101 mmol/L (98-107); Glucose 98 mg/dL (74-99); Magnesium 2.1 mg/dL (1.6-2.3); Non-African American GFR(CKD) 50 (>60 ml/min/1.73 sqM); Potassium 3.9 mmol/L (3.5-5.1); Sodium 140 mmol/L (137-145); Total Bilirubin 0.2 mg/dL (0.2-1.3)
[2024-01-19] MEDS: HYDROmorphone 0.5 MG/0.5 ML SYRINGE IVP STA (00:49)
[2024-01-19] MEDS: ONDANSETRON 4 MG/2 ML VIAL IVP STA (00:50)
[2024-01-19 00:55] LABS: NT-Pro-B-Type Natriuretic Pept 764 pg/mL
[2024-01-19 01:25] VITALS: RESP 18; TEMP 98.5
--- NOTE | 2024-01-19 02:13 | CT ---
EXAM: CT Angiography Chest With Intravenous Contrast CLINICAL HISTORY: ITS.REASON CT Reason: +ddimer hx PE TECHNIQUE: Axial computed tomographic angiography images of the chest with intravenous contrast. CTDI is 31.9 mGy and DLP is 429.4 mGy-cm. This CT exam was performed using one or more of the following dose reduction techniques: automated exposure control, adjustment of the mA and/or kV according to patient size, and/or use of iterative reconstruction technique. MIP reconstructed images were created and reviewed. COMPARISON: No relevant prior studies available. FINDINGS: LUNGS: No focal consolidation, pleural effusion, or pneumothorax. Atelectasis at the lung bases. HEART: Cardiomegaly. VASCULATURE: No acute pulmonary embolism. Atherosclerotic changes of the aorta. THYROID: Within normal limits. MEDIASTINUM + LYMPH NODES: There are no pathologically enlarged mediastinal, hilar, or axillary lymph nodes. SUPERIOR ABDOMEN: Hepatic steatosis. Atrophy of the RIGHT kidney. Small hiatal hernia. Cholecystectomy. MUSCULOSKELETAL: Degenerative changes. IMPRESSION: No acute pulmonary embolism.
[2024-01-19] MEDS: BUMETANIDE 0.25 MG/ML 10 ML VIAL IV STA (03:06)
[2024-01-19] MEDS: HYDROmorphone 1 MG/ML 1 ML SYRINGE IVP STA ×2 (03:13→03:16)
[2024-01-19 05:42] VITALS: BP 111/74; PULSE 71
== END 2024-01-19 05:45 | disposition home or self-care (01) ==
LOC: EC 22:57
CPT/HCPCS: 36415; 71046; 71275; 80053; 83735; 83880; 84484; 85025; 85379; 85610; 85730; 93005; 96374; 96375; 96376; 99285

== ENCOUNTER → 2024-01-20 | Outpatient (CLI) | payer MEDICARE ==
[2024-01-20 13:39] LABS: African American GFR (CKD) 50 (>60 ml/min/1.73 sqM); Anion Gap 9 mmol/L; Blood Urea Nitrogen 27 mg/dL (7-17); Carbon Dioxide 31 mmol/L (22-30); Chloride 95 mmol/L (98-107); Magnesium 1.9 mg/dL (1.6-2.3); Non-African American GFR(CKD) 43 (>60 ml/min/1.73 sqM); Potassium 4.1 mmol/L (3.5-5.1); Sodium 135 mmol/L (137-145)
[2024-01-20 13:47] LABS: NT-Pro-B-Type Natriuretic Pept 519 pg/mL
[2024-01-20 15:28] LABS: Appearance,Urine Clear (Clear); Bilirubin,Urine Negative (Negative); Blood,Urine Negative (Negative); Color,Urine Yellow (Yellow); Ketones,Urine Negative (Negative); Nitrite,Urine Negative (Negative); PH, Urine 7.5; Specific Gravity,Urine 1.006 (1.001-1.030); Urobilinogen,Urine 0.2 E.U./DL
[2024-01-20 15:38] LABS: Bacteria,Urine None Seen (None Seen)
== END | disposition home or self-care (01) ==
LOC: LABWHC1 11:48
PROVIDERS: ATTEND Family Medicine
DX: N18.32 Chronic kidney disease, stage 3b (principal); I50.9 Heart failure, unspecified; N39.0 Urinary tract infection, site not specified
CPT/HCPCS: 36415; 80051; 81001; 82565; 83735; 83880; 84520; 87086

== ENCOUNTER 2024-02-29 16:54 | Emergency (ER) | payer MEDICARE, OTHER ==
[2024-02-29 17:12] VITALS: RESP 18; TEMP 98.8
[2024-02-29] MEDS: ORPHENADRINE 30 MG/ML 2 ML VIAL IM STA (17:48)
[2024-02-29] MEDS: ONDANSETRON ODT 4 MG TAB PO STA (17:50)
[2024-02-29] MEDS: HYDROmorphone 1 MG/ML 1 ML SYRINGE IM STA (17:51)
[2024-02-29] MEDS: methylPREDNISolone SOD SUCCI 125 MG/2 ML VIAL IM ONE (17:56)
--- NOTE | 2024-02-29 19:04 | ED ---
Back Pain HPI - General Source: patient, RN notes reviewed Limitations: no limitations <Soila Fischer - Last Filed: 02/29/24 19:05> <Luzmaria Alvarado - Last Filed: 02/29/24 23:25> - General Chief Complaint: Back Pain/Injury Stated Complaint: R leg numbness Time Seen by Provider: 02/29/24 17:14 - History of Present Illness Initial Comments: 58-year-old female presenting with right-sided low back pain x 1 day with right leg numbness. States she has a long history of back issues, underwent low back surgery with Dr. San 7 months ago and has had no issues until patient had a fall 2 months ago onto her back. Patient has had progressive right back pain since this event, or worsening over the past week. This morning she reports she woke up and could not feel her right leg. Denies loss of bowel or bladder control. Denies low-grade fevers or IV drug use. She is able to ambulate. She experiences previously before her back surgery with Dr. San. Denies recent trauma or injury. (Soila Fischer) - Related Data Home Medications Medication Instructions Recorded Confirmed Atorvastatin [Lipitor] 40 mg PO HS 09/24/21 01/09/24 Sertraline [Zoloft] 200 mg PO DAILY 09/24/21 01/09/24 Apixaban [Eliquis] 5 mg PO BID 05/29/22 01/09/24 busPIRone HCl [Buspar] 5 mg PO BID 06/11/22 01/09/24 Bumetanide [BUMEX] 2 mg PO DAILY 06/24/22 01/09/24 Fludrocortisone [Florinef] 0.1 mg PO DAILY 09/20/22 01/09/24 Metoprolol Succinate (ER) [Toprol 50 mg PO DAILY 02/16/23 01/09/24 XL] rOPINIRole HCL [Requip] 2 mg PO HS 04/28/23 01/09/24 Bumetanide [BUMEX] 1 mg PO HS 08/12/23 01/09/24 Diphenhydramine 50mg Injection 50 mg IM Q6H PRN 08/12/23 01/09/24 Ipratropium Nebulized [Atrovent 0.5 mg INHALATION RT-QID PRN 08/12/23 01/09/24 Nebulized 0.2 MG/ML] Spironolactone [Aldactone] 50 mg PO HS 08/12/23 01/09/24 metOLazone [Zaroxolyn] 5 mg PO DAILY PRN 08/12/23 01/09/24 Budesonide/Glycopyr/Formoterol 2 puff INHALATION RT-BID 12/26/23 01/09/24 [Breztri Aerosphere Inhaler] Cyclobenzaprine [Flexeril] 5 mg PO TID 12/26/23 01/09/24 Diclofenac Sodium [Voltaren 2 - 4 gm TOPICAL TID PRN 12/26/23 01/09/24 Arthritis Pain 1% Gel] Gabapentin 600 mg PO BID 12/26/23 01/09/24 Midodrine [ProAmatine] 5 mg PO TID PRN 12/26/23 01/09/24 Ondansetron [Zofran] 4 mg PO TID PRN 12/26/23 01/09/24 Vitamin B-6(Unknown) 1 tab PO DAILY 12/26/23 01/09/24 Vitamin D3(Unknown) 1 tab PO DAILY 12/26/23 01/09/24 Previous Rx's Medication Instructions Recorded Magnesium Oxide [Mag-Ox] 400 mg PO DAILY 90 Days #90 tab 12/31/23 Potassium Chloride ER [K-Dur 20] 20 meq PO BID 30 Days #60 tab 12/31/23 Allergies Allergy/AdvReac Type Severity Reaction Status Date / Time Penicillins Allergy Severe Anaphylaxis Verified 02/29/24 17:07 vancomycin Allergy Severe Swelling Verified 02/29/24 17:07 in lips cefepime Allergy Swelling Verified 02/29/24 17:07 clindamycin Allergy Anaphylaxis Verified 02/29/24 17:07 Influenza Virus Vaccines Allergy Anaphylaxis Verified 02/29/24 17:07 latex Allergy Itching Verified 02/29/24 17:07 and swelling morphine Allergy Anaphylaxis Verified 02/29/24 17:07 albuterol [From Ventolin HFA] AdvReac Rapid Verified 02/29/24 17:07 Heart Rate dexamethasone [From Decadron] AdvReac severe Verified 02/29/24 17:07 pain, like needles in groin [id number] AdvReac Confusion, Verified 02/29/24 17:07 [From Emgality Pen] increased blood pressure metoclopramide [From Reglan] AdvReac "felt like Verified 02/29/24 17:07 I needed to jump out of my skin" prochlorperazine AdvReac severe Verified 02/29/24 17:07 [From Compazine] anxiety Review of Systems ROS Other: All systems not noted in ROS Statement are negative. <Soila Fischer - Last Filed: 02/29/24 19:05> ROS Other: All systems not noted in ROS Statement are negative. <Luzmaria Alvarado - Last Filed: 02/29/24 23:25> ROS Statement: Those systems with pertinent positive or pertinent negative responses have been documented in the HPI. 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 Patient states past history of C-Diff from 03/2023. Last Myocardial Infarction Date:: 08/30/2018 History of Any Multi-Drug Resistant Organisms: None Reported Date of last positivie culture/infection: 03/02/23 MDRO Source:: Stool Past Surgical History: Back Surgery, Breast Surgery, Cardiac Valve Replacement, Section, Cholecystectomy, Heart Catheterization, Hysterectomy, Pacemaker Additional Past Surgical History / Comment(s): pacemaker d/t bradycardia/hypotension with last one place in 2013 in [place], [place], 3 lower back surgeries, bilateral breast reduction. 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. lamenectomy Past Anesthesia/Blood Transfusion Reactions: No Reported Reaction Additional Past Anesthesia/Blood Transfusion Reaction / Comment(s): blood transfusion no issues Type of Cardiac Device: Permanent Pacemaker, Unknown Device Placement Date:: 2012 Past Psychological History: Anxiety, PTSD Smoking Status: Never smoker Past Alcohol Use History: Rare Past Drug Use History: Marijuana - Past Family History Mother Additional Family Medical History / Comment(s): Mother at the age of 49 yrs after surgery for silicon breast implants with a leak that caused ARDS and DIC per pt (fibroid cysts) Father Family Medical History: Cancer, Hyperlipidemia, Hypertension Additional Family Medical History / Comment(s): Father is a colon cancer survivor. <Soila Fischer - Last Filed: 02/29/24 19:05> General Exam Limitations: no limitations General appearance: alert, in no apparent distress Head exam: Present: atraumatic, normocephalic, normal inspection Eye exam: Present: normal appearance, PERRL, EOMI. Absent: scleral icterus, conjunctival injection, periorbital swelling Back exam: Present: normal inspection, full ROM, paraspinal tenderness (Right- sided paraspinal tenderness in the lumbar spine), other (Full strength and range of motion of hips. No saddle anesthesia. Full DP pulses bilaterally. Decreased sensation throughout right leg.). Absent: CVA tenderness (R), CVA tenderness (L), muscle spasm, rash noted Neurological exam: Present: alert, oriented X3 Psychiatric exam: Present: normal affect, normal mood Skin exam: Present: warm, dry, intact, normal color. Absent: rash <Soila Fischer - Last Filed: 02/29/24 19:05> Course Vital Signs 02/29/24 02/29/24 02/29/24 17:07 19:56 22:24 Temperature 98.8 F Pulse Rate 72 67 69 Respiratory 18 18 18 Rate Blood Pressure 107/65 114/72 117/79 O2 Sat by Pulse 94 L 95 93 L Oximetry Medical Decision Making <Soila Fischre - Last Filed: 02/29/24 19:05> - Lab Data Result diagrams: 02/29/24 21:25 02/29/24 21:25 <Luzmaria Alvarado - Last Filed: 02/29/24 23:25> - Medical Decision Making Was pt. sent in by a medical professional or institution ([facility], [employer], urgent care, hospital, or prison...) When possible be specific @ -No Did you speak to anyone other than the patient for history (EMS, parent, family, police, friend...)? What history was obtained from this source @ -No Did you review nursing and triage notes (agree or disagree)? Why? @ -I reviewed and agree with nursing and triage notes Were old charts reviewed (outside hosp., previous admission, EMS record, old EKG, old radiological studies, urgent care reports/EKG's, prison records)? Report findings @ -No old charts were reviewed Differential Diagnosis (chest pain, altered mental status, abdominal pain women, abdominal pain men, vaginal bleeding, weakness, fever, dyspnea, syncope, heada marissa, dizziness, GI bleed, back pain, seizure, CVA, palpatations, mental health, musculoskeletal)? @ -Differential Back Pain: Strain, zoster, cauda equina syndrome, epidural abscess, vertebral osteomy elitis, discitis, fracture, subluxation, disc herniation, DJD, spinal stenosis, dissection, AAA, pancreatitis, peptic ulcer disease, pyelonephritis, kidney stone, this is not meant to be an all-inclusive list. EKG interpreted by me (3pts min.). @ -None X-rays interpreted by me (1pt min.). @ -None done CT interpreted by me (1pt min.). @ -CT lumbar spine pending at time of signout U/S interpreted by me (1pt. min.). @ -None done What testing was considered but not performed or refused? (CT, X-rays, U/S, labs)? Why? @ -None What meds were considered but not given or refused? Why? @ -None Did you discuss the management of the patient with other professionals (professionals i.e. , PA, [employer], lab, RT, psych nurse, social professionals, business librarian, teacher, staff air defense officer, corrections caseworker)? Give summary @ -No Was smoking cessation discussed for >3mins.? @ -No Was critical care preformed (if so, how long)? @ -No Were there social determinants of health that impacted care today? How? (Homelessness, low income, unemployed, alcoholism, drug addiction, transportation, low edu. Level, literacy, decrease access to med. care, [facility], rehab)? @ -No Was there de-escalation of care discussed even if they declined (Discuss DNR or withdrawal of care, Hospice)? DNR status @ -No What co-morbidities impacted this encounter? (DM, HTN, Smoking, COPD, CAD, Cancer, CVA, ARF, Chemo, Hep., AIDS, mental health diagnosis, sleep apnea, morbid obesity)? @ -None Was patient admitted / discharged? Hospital course, mention meds given and route, prescriptions, significant lab abnormalities, going to OR and other pertinent info. @ -This is a 58-year-old female presenting with low back pain x 1 day with right sided leg numbness. No red flag symptoms such as saddle anesthesia, loss of bowel or bladder control, or low-grade fevers. DP pulses present in bilateral lower extremities. Patient was provided with analgesics. CT lumbar spine obtained and pending at time of signout to Luzmaria Alvarado PA-C. (Soila Fischer) Patient was signed out to my colleague pending CT imaging results and disposition. CT scan of the lumbar spine reveals postsurgical fixation of the L3-S1 vertebrae with no interval change evident. Study results relayed with the patient and recommend that they schedule follow-up appointment with surgeon, Dr. San, for further evaluation and continued treatment. Discussed with patient she is concerned that she may have low potassium and she is concerned that she is getting muscle cramps. Per states that she has a history of lupus and has had low potassium in the past and is requesting that her labs be checked at this time. CBC unremarkable, CMP reveals potassium of 5.2, BUN of 34 and creatinine 1.41. Patient historically has mildly elevated BUN/creatinine. Patient is currently laboratory results and she is stable for discharge at this time. Discussed with Dr. Perdomo (Luzmaria Alvarado) - Lab Data Lab Results 02/29/24 02/29/24 Range/Units 21:25 21:25 WBC 7.7 (3.8-10.6) k/uL RBC 5.41 H (3.80-5.40) m/uL Hgb 15.6 (11.4-16.0) gm/dL Hct 48.6 H (34.0-46.0) % MCV 89.9 (80.0-100.0) fL MCH 28.9 (25.0-35.0) pg MCHC 32.2 (31.0-37.0) g/dL RDW 14.7 (11.5-15.5) % Plt Count 258 (150-450) k/uL MPV 7.5 Neutrophils % 90 % Lymphocytes % 7 % Monocytes % 1 % Eosinophils % 1 % Basophils % 0 % Neutrophils # 6.9 (1.3-7.7) k/uL Lymphocytes # 0.5 L (1.0-4.8) k/uL Monocytes # 0.1 (0-1.0) k/uL Eosinophils # 0.1 (0-0.7) k/uL Basophils # 0.0 (0-0.2) k/uL Sodium 139 (137-145) mmol/L Potassium 5.2 H (3.5-5.1) mmol/L Chloride 104 (98-107) mmol/L Carbon Dioxide 25 (22-30) mmol/L Anion Gap 10 mmol/L BUN 34 H (7-17) mg/dL Creatinine 1.41 H (0.52-1.04) mg/dL Est GFR (CKD-EPI)AfAm 47 (>60 ml/min/1.73 sqM) Est GFR (CKD-EPI)NonAf 41 (>60 ml/min/1.73 sqM) Glucose 106 H (74-99) mg/dL Calcium 9.7 (8.4-10.2) mg/dL Magnesium 2.5 H (1.6-2.3) mg/dL Total Bilirubin 0.6 (0.2-1.3) mg/dL AST 35 (14-36) U/L ALT 28 (4-34) U/L Alkaline Phosphatase 83 (38-126) U/L Total Protein 8.5 H (6.3-8.2) g/dL Albumin 5.2 H (3.5-5.0) g/dL Disposition <Soila Fischer - Last Filed: 02/29/24 19:05> Is patient prescribed a controlled substance at d/c from ED?: No Time of Disposition: 20:12 <Luzmaria Alvarado - Last Filed: 02/29/24 23:25> Clinical Impression: Lumbar back pain with radiculopathy affecting lower extremity Disposition: HOME SELF-CARE Condition: Good Instructions (If sedation given, give patient instructions): Acute Low Back Pain (ED) Additional Instructions: Please return to the Emergency Department if symptoms worsen or any other concerns. Recommend that you contact Dr. San's office to schedule follow-up appointment for further evaluation. Continue supportive treatment at home. Referrals: Franklin Hassan MD [Primary Care Provider] - 1-2 days
--- NOTE | 2024-02-29 20:10 | CT ---
EXAMINATION TYPE: CT lumbar spine wo con DATE OF EXAM: 02/29/2024 COMPARISON: 08/12/2023 HISTORY: back pain CT DLP: 1105.6 mGycm CONTRAST: None TECHNIQUE: CT of the lumbar spine is performed on a spiral scan at 3 mm thick sections. Reconstructed images are performed in the coronal and sagittal planes. FINDINGS: Pedicle screws are present L3-S1. Disc spacer present L3-4 L4-5. Foreign bodies cause some limitation during portions of this exam. Some narrowing of the L5-S1 disc space is present. No spinal canal stenosis is noted. T12-L1: No focal disc herniation or significant disc bulge is evident. No spinal canal stenosis or neural foraminal stenosis is present. L1-L2: No focal disc herniation or significant disc bulge is evident. No spinal canal stenosis or n eural foraminal stenosis is present L2-L3: No focal disc herniation or significant disc bulge is evident. No spinal canal stenosis or n eural foraminal stenosis is present L3-L4: No focal disc herniation or significant disc bulge is evident. No spinal canal stenosis or n eural foraminal stenosis is present. Exam is limited due to metallic artifact. Laminectomy has been p erformed. L4-L5: No focal disc herniation or significant disc bulge is evident. No spinal canal stenosis or n eural foraminal stenosis is present. Exam is limited due to metallic artifact. Laminectomy has been p erformed. L5-S1: No focal disc herniation or significant disc bulge is evident. No spinal canal stenosis or n eural foraminal stenosis is present. Exam is limited due to metallic artifact. Laminectomy has been performed. Vertebral alignment appears normal. Note is made of nonobstructing bilateral punctate renal stones IMPRESSION: Postsurgical fixation L3-S1. No interval change is evident. [facility], Workstation: [email or web address], 02/29/2024 8:08 PM
[2024-02-29] MEDS: HYDROmorphone 1 MG/ML 1 ML SYRINGE IVP STA (21:31)
[2024-02-29 21:40] LABS: Basophils % (A) 0 %; Eosinophils # (A) 0.1 k/uL (0-0.7); Eosinophils % (A) 1 %; HCT 48.6 % (34.0-46.0); HGB 15.6 gm/dL (11.4-16.0); Lymphocytes # (A) 0.5 k/uL (1.0-4.8); Lymphocytes % (A) 7 %; MCH 28.9 pg (25.0-35.0); MCHC 32.2 g/dL (31.0-37.0); MCV 89.9 fL (80.0-100.0); Mean Platelet Volume 7.5; Monocytes # (A) 0.1 k/uL (0-1.0); Monocytes % (A) 1 %; Neutrophils # (A) 6.9 k/uL (1.3-7.7); Neutrophils % (A) 90 %; Platelet Count 258 k/uL (150-450); RBC 5.41 m/uL (3.80-5.40); RDW 14.7 % (11.5-15.5); WBC 7.7 k/uL (3.8-10.6)
[2024-02-29 21:50] LABS: ALT 28 U/L (4-34); AST 35 U/L (14-36); African American GFR (CKD) 47 (>60 ml/min/1.73 sqM); Albumin 5.2 g/dL (3.5-5.0); Alkaline Phosphatase 83 U/L (38-126); Anion Gap 10 mmol/L; Blood Urea Nitrogen 34 mg/dL (7-17); Calcium 9.7 mg/dL (8.4-10.2); Carbon Dioxide 25 mmol/L (22-30); Chloride 104 mmol/L (98-107); Glucose 106 mg/dL (74-99); Magnesium 2.5 mg/dL (1.6-2.3); Non-African American GFR(CKD) 41 (>60 ml/min/1.73 sqM); Potassium 5.2 mmol/L (3.5-5.1); Sodium 139 mmol/L (137-145); Total Bilirubin 0.6 mg/dL (0.2-1.3); Total Protein 8.5 g/dL (6.3-8.2)
[2024-02-29 22:25] VITALS: BP 117/79; PULSE 69
== END 2024-02-29 22:25 | disposition home or self-care (01) ==
LOC: EC 16:54
CPT/HCPCS: 36415; 72131; 80053; 83735; 85025; 96372; 96374; 99284

== ENCOUNTER → 2024-03-28 | Outpatient (CLI) | payer MEDICARE ==
[2024-03-28 16:13] LABS: ALT 23 U/L (4-34); AST 26 U/L (14-36); African American GFR (CKD) 59 (>60 ml/min/1.73 sqM); Albumin 4.6 g/dL (3.5-5.0); Albumin/Globulin Ratio 1.7; Alkaline Phosphatase 65 U/L (38-126); Anion Gap 9 mmol/L; Blood Urea Nitrogen 25 mg/dL (7-17); Calcium 8.8 mg/dL (8.4-10.2); Carbon Dioxide 23 mmol/L (22-30); Chloride 107 mmol/L (98-107); Globulin 2.7 g/dL; Glucose 127 mg/dL (74-99); Non-African American GFR(CKD) 51 (>60 ml/min/1.73 sqM); Sodium 139 mmol/L (137-145); Total Bilirubin 0.5 mg/dL (0.2-1.3); Total Protein 7.3 g/dL (6.3-8.2)
[2024-03-28 16:21] LABS: NT-Pro-B-Type Natriuretic Pept 1030 pg/mL
== END | disposition home or self-care (01) ==
LOC: LABWHC1 14:24
PROVIDERS: ATTEND Family Medicine
DX: I10 Essential (primary) hypertension (principal); B89 Unspecified parasitic disease; Z79.899 Other long term (current) drug therapy
CPT/HCPCS: 36415; 80053; 83880; 84443

== ENCOUNTER 2024-03-30 14:43 | Emergency (ER) | payer MEDICARE ==
[2024-03-30 14:48] VITALS: RESP 20; TEMP 97.8
--- NOTE | 2024-03-30 15:40 | ED ---
General Adult HPI - General Chief complaint: Chest Pain Stated complaint: Chest Pains Time Seen by Provider: 03/30/24 15:09 Source: patient Mode of arrival: wheelchair Limitations: no limitations - History of Present Illness Initial comments: Dictation was produced using [employer] dictation software. please excuse any grammatical, word or spelling errors. Chief Complaint: 58-year-old female well-known to the emergency department presents with chief complaint of heart failure History of Present Illness: Patient is a 58-year-old female she is well-known to the emergency department for multiple visitations for chest pain. Patient also has some history of opiate use disorder. States that she is here for chest pain, palpitations. She states that she feels a little swollen in her legs. She not sure if she is in heart failure or if this is secondary to steroids to treat her lupus. Denies any fever, chills or night sweats. The ROS documented in this emergency department record has been reviewed and confirmed by me. Those systems with pertinent positive or negative responses have been documented in the HPI. All other systems are other negative and/or noncontributory. - Related Data Home Medications Medication Instructions Recorded Confirmed Atorvastatin [Lipitor] 40 mg PO HS 09/24/21 01/09/24 Sertraline [Zoloft] 200 mg PO DAILY 09/24/21 01/09/24 Apixaban [Eliquis] 5 mg PO BID 05/29/22 01/09/24 busPIRone HCl [Buspar] 5 mg PO BID 06/11/22 01/09/24 Bumetanide [BUMEX] 2 mg PO DAILY 06/24/22 01/09/24 Fludrocortisone [Florinef] 0.1 mg PO DAILY 09/20/22 01/09/24 Metoprolol Succinate (ER) [Toprol 50 mg PO DAILY 02/16/23 01/09/24 XL] rOPINIRole HCL [Requip] 2 mg PO HS 04/28/23 01/09/24 Bumetanide [BUMEX] 1 mg PO HS 08/12/23 01/09/24 Diphenhydramine 50mg Injection 50 mg IM Q6H PRN 08/12/23 01/09/24 Ipratropium Nebulized [Atrovent 0.5 mg INHALATION RT-QID PRN 08/12/23 01/09/24 Nebulized 0.2 MG/ML] Spironolactone [Aldactone] 50 mg PO HS 08/12/23 01/09/24 metOLazone [Zaroxolyn] 5 mg PO DAILY PRN 08/12/23 01/09/24 Budesonide/Glycopyr/Formoterol 2 puff INHALATION RT-BID 12/26/23 01/09/24 [Breztri Aerosphere Inhaler] Cyclobenzaprine [Flexeril] 5 mg PO TID 12/26/23 01/09/24 Diclofenac Sodium [Voltaren 2 - 4 gm TOPICAL TID PRN 12/26/23 01/09/24 Arthritis Pain 1% Gel] Gabapentin 600 mg PO BID 12/26/23 01/09/24 Midodrine [ProAmatine] 5 mg PO TID PRN 12/26/23 01/09/24 Ondansetron [Zofran] 4 mg PO TID PRN 12/26/23 01/09/24 Vitamin B-6(Unknown) 1 tab PO DAILY 12/26/23 01/09/24 Vitamin D3(Unknown) 1 tab PO DAILY 12/26/23 01/09/24 Previous Rx's Medication Instructions Recorded Magnesium Oxide [Mag-Ox] 400 mg PO DAILY 90 Days #90 tab 12/31/23 Potassium Chloride ER [K-Dur 20] 20 meq PO BID 30 Days #60 tab 12/31/23 Allergies Allergy/AdvReac Type Severity Reaction Status Date / Time Penicillins Allergy Severe Anaphylaxis Verified 03/30/24 14:44 vancomycin Allergy Severe Swelling Verified 03/30/24 14:44 in lips cefepime Allergy Swelling Verified 03/30/24 14:44 clindamycin Allergy Anaphylaxis Verified 03/30/24 14:44 Influenza Virus Vaccines Allergy Anaphylaxis Verified 03/30/24 14:44 latex Allergy Itching Verified 03/30/24 14:44 and swelling morphine Allergy Anaphylaxis Verified 03/30/24 14:44 albuterol [From Ventolin HFA] AdvReac Rapid Verified 03/30/24 14:44 Heart Rate dexamethasone [From Decadron] AdvReac severe Verified 03/30/24 14:44 pain, like needles in groin [id number] AdvReac Confusion, Verified 03/30/24 14:44 [From Emgality Pen] increased blood pressure metoclopramide [From Reglan] AdvReac "felt like Verified 03/30/24 14:44 I needed to jump out of my skin" prochlorperazine AdvReac severe Verified 03/30/24 14:44 [From Compazine] anxiety Review of Systems ROS Statement: Those systems with pertinent positive or pertinent negative responses have been documented in the HPI. ROS Other: All systems not noted in ROS Statement are negative. 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 Patient states past history of C-Diff from 03/2023. Last Myocardial Infarction Date:: 08/30/2018 History of Any Multi-Drug Resistant Organisms: None Reported Date of last positivie culture/infection: 03/02/23 MDRO Source:: Stool Past Surgical History: Back Surgery, Breast Surgery, Cardiac Valve Replacement, Section, Cholecystectomy, Heart Catheterization, Hysterectomy, Pacemaker Additional Past Surgical History / Comment(s): pacemaker d/t bradycardia/hypotension with last one place in 2013 in [place], [place], 3 lower back surgeries, bilateral breast reduction. 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. lamenectomy Past Anesthesia/Blood Transfusion Reactions: No Reported Reaction Additional Past Anesthesia/Blood Transfusion Reaction / Comment(s): blood transfusion no issues Type of Cardiac Device: Permanent Pacemaker, Unknown Device Placement Date:: 2012 Past Psychological History: Anxiety, PTSD Smoking Status: Never smoker Past Alcohol Use History: Rare Past Drug Use History: Marijuana - Past Family History Mother Additional Family Medical History / Comment(s): Mother at the age of 49 yrs after surgery for silicon breast implants with a leak that caused ARDS and DIC per pt (fibroid cysts) Father Family Medical History: Cancer, Hyperlipidemia, Hypertension Additional Family Medical History / Comment(s): Father is a colon cancer survivor. General Exam - General Exam Comments Initial Comments: PHYSICAL EXAM: General Impression: Alert and oriented x3, not in acute distress HEENT: Normocephalic atraumatic, extra-ocular movements intact, pupils equal and reactive to light bilaterally, mucous membranes moist. Cardiovascular: Heart regular rate and rhythm Chest: Able to complete full sentences, no retractions, no tachypnea Abdomen: abdomen soft, non-tender, non-distended, no organomegaly Musculoskeletal: Pulses present and equal in all extremities, no peripheral e faizan Motor: no focal deficits noted Neurological: CN II-XII grossly intact, no focal motor or sensory deficits noted Skin: Intact with no visualized rashes Psych: Normal affect and mood Limitations: no limitations Course Vital Signs 03/30/24 03/30/24 14:45 15:09 Temperature 97.8 F Pulse Rate 68 70 Respiratory 20 20 Rate Blood Pressure 142/86 127/85 O2 Sat by Pulse 100 94 L Oximetry EKG Findings - EKG Comments: EKG Findings:: My EKG interpretation: Ventricular rate 70, electronic atrial paced rhythm,. 150, QRS 90, QTc 419. No UT prolongation, no QTC prolongation, no ST or T-wave changes noted. Overall, this EKG is unremarkable Medical Decision Making - Medical Decision Making Was pt. sent in by a medical professional or institution ([facility], ROLL INSPECTOR, urgent care, hospital, or residential...) When possible be specific @ -No Did you speak to anyone other than the patient for history (EMS, parent, family, police, friend...)? What history was obtained from this source @ -No Did you review nursing and triage notes (agree or disagree)? Why? @ -I reviewed and agree with nursing and triage notes Were old charts reviewed (outside hosp., previous admission, EMS record, old EKG, old radiological studies, urgent care reports/EKG's, residential records)? Report findings @ -Previous charting was reviewed showed that patient had multiple workups. Differential Diagnosis (chest pain, altered mental status, abdominal pain women, abdominal pain men, vaginal bleeding, musculoskeletal, weakness, fever, dyspnea, syncope, headache, dizziness, GI bleed, back pain, seizure, CVA, palpatations, mental health)? @ -Differential Dyspnea: Coronary syndrome, arrhythmia, tamponade, asthma, COPD, pulmonary embolism, pneumonia, pneumothorax, pulmonary effusion, anaphylaxis, diabetic ketoacidosis, flailed chest, pulmonary contusion, diaphragmatic rupture, anemia, neuromuscular, this is not meant to be an all-inclusive list. EKG interpreted by me (3pts min.). @ -See above X-rays interpreted by me (1pt min.). @ -Chest x-ray is nonacute CT interpreted by me (1pt min.). @ -None done U/S interpreted by me (1pt. min.). @ -None done What testing was considered but not performed or refused? (CT, X-rays, U/S, labs)? Why? @ -None What meds were considered but not given or refused? Why? @ -None Was smoking cessation discussed for >3mins.? @ -No Were there social determinants of health that impacted care today? How? (Homelessness, low income, unemployed, alcoholism, drug addiction, transportation, low edu. Level, literacy, decrease access to med. care, fdc, rehab)? @ -Opiate use disorder Was there de-escalation of care discussed even if they declined (Discuss DNR or withdrawal of care, Hospice)? DNR status @ -No What co-morbidities impacted this encounter? (DM, HTN, Smoking, COPD, CAD, Cancer, CVA, ARF, Chemo, Hep., AIDS, mental health diagnosis, sleep apnea, m orbid obesity)? @ -Lupus Was patient admitted / discharged? Hospital course, mention meds given and route, prescriptions, significant lab abnormalities, going to OR and other pertinent info. @ -58-year-old female well-known to emergency department for multiple visitations for myriad of complaints. Vital signs upon arrival are within acceptable limits. Laboratory evaluation obtained. Labs are within acceptable limits. Patient's troponin is negative. Patient had been admitted to the hospital multiple occasions has not had a positive troponin since May of last year. BNP is at baseline. X-rays negative for any acute processes. Patient well-appearing at the bedside using her phone with no complications. She has stable vital signs. Patient requesting analgesics. Case discussed with Dr. Hassan who request that patient be discharged follow-up in his office on Tuesday. States that her main reason for coming to the emergency department is for the cramping in her extremities that she feels related to the swelling. Did you discuss the management of the patient with other professionals (professionals i.e. , PA, ROLL INSPECTOR, lab, RT, psych nurse, social service manager, learning officer, teacher, customs patrol officer, case loader operator)? Give summary @ -See above Was critical care preformed (if so, how long)? @ -No Undiagnosed new problem with uncertain prognosis? @ -No Drug Therapy requiring intensive monitoring for toxicity (Heparin, Nitro, Insulin, Cardizem)? @ -No Were any procedures done? @ -No Diagnosis/symptom? Acute, or Chronic, or Acute on Chronic? Uncomplicated (without systemic symptoms) or Complicated (systemic symptoms)? @ -Extremity pain Side effects of treatment? @ -No Exacerbation, Progression, or Severe Exacerbation? @ -No Poses a threat to life or bodily function? How? (Chest pain, USA, PR, pneumonia, PE, COPD, DKA, ARF, appy, cholecystitis, CVA, Diverticulitis, Homicidal, Suicidal, threat to staff... and all critical care pts) @ -No - Lab Data Result diagrams: 03/30/24 15:53 03/30/24 15:53 Lab Results 03/30/24 03/30/24 03/30/24 Range/Units 15:53 15:53 15:53 WBC 12.8 H (3.8-10.6) k/uL RBC 5.35 (3.80-5.40) m/uL Hgb 16.3 H (11.4-16.0) gm/dL Hct 48.0 H (34.0-46.0) % MCV 89.8 (80.0-100.0) fL MCH 30.4 (25.0-35.0) pg MCHC 33.9 (31.0-37.0) g/dL RDW 15.0 (11.5-15.5) % Plt Count 257 (150-450) k/uL MPV 7.7 Neutrophils % 80 % Lymphocytes % 12 % Monocytes % 6 % Eosinophils % 1 % Basophils % 0 % Neutrophils # 10.2 H (1.3-7.7) k/uL Lymphocytes # 1.5 (1.0-4.8) k/uL Monocytes # 0.7 (0-1.0) k/uL Eosinophils # 0.1 (0-0.7) k/uL Basophils # 0.0 (0-0.2) k/uL PT 10.5 (10.0-12.5) sec INR 1.0 (<1.2) APTT 23.7 (22.0-30.0) sec Sodium 139 (137-145) mmol/L Potassium 4.2 (3.5-5.1) mmol/L Chloride 92 L (98-107) mmol/L Carbon Dioxide 31 H (22-30) mmol/L Anion Gap 16 mmol/L BUN 49 H (7-17) mg/dL Creatinine 1.63 H (0.52-1.04) mg/dL Est GFR (CKD-EPI)AfAm 40 (>60 ml/min/1.73 sqM) Est GFR (CKD-EPI)NonAf 34 (>60 ml/min/1.73 sqM) Glucose 95 (74-99) mg/dL Calcium 10.3 H (8.4-10.2) mg/dL Magnesium 2.4 H (1.6-2.3) mg/dL Total Bilirubin 0.6 (0.2-1.3) mg/dL AST 29 (14-36) U/L ALT 26 (4-34) U/L Alkaline Phosphatase 75 (38-126) U/L Troponin I (0.000-0.034) ng/mL NT-Pro-B Natriuret Pep 603 pg/mL Total Protein 8.8 H (6.3-8.2) g/dL Albumin 5.4 H (3.5-5.0) g/dL Lipase 131 (23-300) U/L 03/30/24 Range/Units 15:53 WBC (3.8-10.6) k/uL RBC (3.80-5.40) m/uL Hgb (11.4-16.0) gm/dL Hct (34.0-46.0) % MCV (80.0-100.0) fL MCH (25.0-35.0) pg MCHC (31.0-37.0) g/dL RDW (11.5-15.5) % Plt Count (150-450) k/uL MPV Neutrophils % % Lymphocytes % % Monocytes % % Eosinophils % % Basophils % % Neutrophils # (1.3-7.7) k/uL Lymphocytes # (1.0-4.8) k/uL Monocytes # (0-1.0) k/uL Eosinophils # (0-0.7) k/uL Basophils # (0-0.2) k/uL PT (10.0-12.5) sec INR (<1.2) APTT (22.0-30.0) sec Sodium (137-145) mmol/L Potassium (3.5-5.1) mmol/L Chloride (98-107) mmol/L Carbon Dioxide (22-30) mmol/L Anion Gap mmol/L BUN (7-17) mg/dL Creatinine (0.52-1.04) mg/dL Est GFR (CKD-EPI)AfAm (>60 ml/min/1.73 sqM) Est GFR (CKD-EPI)NonAf (>60 ml/min/1.73 sqM) Glucose (74-99) mg/dL Calcium (8.4-10.2) mg/dL Magnesium (1.6-2.3) mg/dL Total Bilirubin (0.2-1.3) mg/dL AST (14-36) U/L ALT (4-34) U/L Alkaline Phosphatase (38-126) U/L Troponin I <0.012 (0.000-0.034) ng/mL NT-Pro-B Natriuret Pep pg/mL Total Protein (6.3-8.2) g/dL Albumin (3.5-5.0) g/dL Lipase (23-300) U/L Disposition Clinical Impression: Extremity pain Disposition: HOME SELF-CARE Condition: Good Instructions (If sedation given, give patient instructions): Chronic Pain (ED) Is patient prescribed a controlled substance at d/c from ED?: No Referrals: Franklin Hassan MD [Primary Care Provider] - 1-2 days Time of Disposition: 18:07
[2024-03-30 16:05] LABS: Basophils % (A) 0 %; Eosinophils # (A) 0.1 k/uL (0-0.7); Eosinophils % (A) 1 %; HGB 16.3 gm/dL (11.4-16.0); Lymphocytes # (A) 1.5 k/uL (1.0-4.8); Lymphocytes % (A) 12 %; MCH 30.4 pg (25.0-35.0); MCHC 33.9 g/dL (31.0-37.0); MCV 89.8 fL (80.0-100.0); Mean Platelet Volume 7.7; Monocytes # (A) 0.7 k/uL (0-1.0); Monocytes % (A) 6 %; Neutrophils # (A) 10.2 k/uL (1.3-7.7); Neutrophils % (A) 80 %; Platelet Count 257 k/uL (150-450); RBC 5.35 m/uL (3.80-5.40); WBC 12.8 k/uL (3.8-10.6)
[2024-03-30 16:14] LABS: Partial Thromboplastin Time 23.7 sec (22.0-30.0); Prothrombin Time 10.5 sec (10.0-12.5)
[2024-03-30 16:16] LABS: ALT 26 U/L (4-34); AST 29 U/L (14-36); African American GFR (CKD) 40 (>60 ml/min/1.73 sqM); Albumin 5.4 g/dL (3.5-5.0); Alkaline Phosphatase 75 U/L (38-126); Anion Gap 16 mmol/L; Blood Urea Nitrogen 49 mg/dL (7-17); Calcium 10.3 mg/dL (8.4-10.2); Carbon Dioxide 31 mmol/L (22-30); Chloride 92 mmol/L (98-107); Glucose 95 mg/dL (74-99); Lipase 131 U/L (23-300); Magnesium 2.4 mg/dL (1.6-2.3); Non-African American GFR(CKD) 34 (>60 ml/min/1.73 sqM); Potassium 4.2 mmol/L (3.5-5.1); Sodium 139 mmol/L (137-145); Total Bilirubin 0.6 mg/dL (0.2-1.3); Total Protein 8.8 g/dL (6.3-8.2)
[2024-03-30 16:25] LABS: NT-Pro-B-Type Natriuretic Pept 603 pg/mL
--- NOTE | 2024-03-30 17:29 | XR ---
EXAMINATION TYPE: XR chest 2V DATE OF EXAM: 03/30/2024 4:50 PM COMPARISON: Chest radiographs from 01/18/2024 TECHNIQUE: XR chest 2V Frontal and lateral views of the chest. CLINICAL INDICATION:Female, 58 years old with history of Chest Pain; FINDINGS: Lungs/Pleura: There is no evidence of pleural effusion, focal consolidation, or pneumothorax. Pulmonary vascularity: Unremarkable. Heart/mediastinum: Cardiomediastinal silhouette is enlarged and stable. Postsurgical changes of the aortic valve. Single-lead cardiac conduction device overlying the right hemithorax with lead projecti ng over the right ventricle. Musculoskeletal: Multiple level degenerative disc disease changes seen throughout the spine. Multiple left-sided rib fractures. Other: Anterior left chest wall loop recorder. IMPRESSION: Chronic changes without acute radiographic evidence for an acute process. [facility], , 03/30/2024 5:27 PM
[2024-03-30] MEDS: FUROSEMIDE 10 MG/ML 4 ML VIAL IV STA (18:45)
[2024-03-30] MEDS: HYDROmorphone 1 MG/ML 1 ML SYRINGE IVP STA (18:46)
[2024-03-30 18:57] VITALS: BP 158/65; PULSE 68
== END 2024-03-30 18:57 | disposition home or self-care (01) ==
LOC: EC 14:43
DX: M79.602 Pain in left arm (principal); Z88.0 Allergy status to penicillin; Z88.1 Allergy status to other antibiotic agents; Z88.7 Allergy status to serum and vaccine; Z88.8 Allergy status to other drugs, medicaments and biological substances; Z91.040 Latex allergy status; Z90.49 Acquired absence of other specified parts of digestive tract; Z95.0 Presence of cardiac pacemaker
CPT/HCPCS: 36415; 93005; 83880; 80053; 83690; 83735; 84484; 85025; 85610; 85730; 71046; 99285; 96374; 96375; J1940; J1171

== ENCOUNTER 2024-04-06 11:34 | Inpatient (IN) | payer MEDICARE ==
--- NOTE | 2024-04-06 12:04 | ED ---
General Adult HPI - General Chief complaint: Seizure Stated complaint: Seizures Time Seen by Provider: 04/06/24 11:51 Source: patient, EMS, RN notes reviewed Mode of arrival: EMS Limitations: altered mental status - History of Present Illness Initial comments: Patient is a 58-year-old female present to the emergency department with reported seizure. Patient is drowsy and unable to provide significant history. Patient can state her name. Patient has documented history of previous seizures. Recent med list available does not reveal antiseptic medication. Patient reportedly has history of hyponatremia. EMS reportedly provided 10 mg of Versed. - Related Data Home Medications Medication Instructions Recorded Confirmed Atorvastatin [Lipitor] 40 mg PO HS 09/24/21 04/06/24 Sertraline [Zoloft] 200 mg PO DAILY 09/24/21 04/06/24 Apixaban [Eliquis] 5 mg PO BID 05/29/22 04/06/24 busPIRone HCl [Buspar] 5 mg PO BID 06/11/22 04/06/24 Bumetanide [BUMEX] 2 mg PO DAILY 06/24/22 04/06/24 Fludrocortisone [Florinef] 0.1 mg PO DAILY 09/20/22 04/06/24 Metoprolol Succinate (ER) [Toprol 50 mg PO DAILY 02/16/23 04/06/24 XL] rOPINIRole HCL [Requip] 2 mg PO HS 04/28/23 04/06/24 Bumetanide [BUMEX] 1 mg PO HS 08/12/23 04/06/24 Diphenhydramine 50mg Injection 50 mg IM Q6H PRN 08/12/23 04/06/24 Ipratropium Nebulized [Atrovent 0.5 mg INHALATION RT-QID PRN 08/12/23 04/06/24 Nebulized 0.2 MG/ML] Spironolactone [Aldactone] 50 mg PO HS 08/12/23 04/06/24 metOLazone [Zaroxolyn] 5 mg PO DAILY PRN 08/12/23 04/06/24 Budesonide/Glycopyr/Formoterol 2 puff INHALATION RT-BID 12/26/23 04/06/24 [Breztri Aerosphere Inhaler] Cyclobenzaprine [Flexeril] 5 mg PO TID@,,17 12/26/23 04/06/24 Diclofenac Sodium [Voltaren 2 - 4 gm TOPICAL TID PRN 12/26/23 04/06/24 Arthritis Pain 1% Gel] Gabapentin 600 mg PO QID@09,13,17,21 12/26/23 04/06/24 Midodrine [ProAmatine] 5 mg PO TID PRN 12/26/23 04/06/24 Ondansetron [Zofran] 4 mg PO TID PRN 12/26/23 04/06/24 Vitamin B-6(Unknown) 1 tab PO DAILY 12/26/23 04/06/24 Vitamin D3(Unknown) 1 tab PO DAILY 12/26/23 04/06/24 Azithromycin [Zithromax] 500 mg PO DAILY 04/06/24 04/06/24 HYDROcodone/APAP 7.5-325MG [[place] 1 tab PO TID 04/06/24 04/06/24 7.5-325] Potassium Chloride ER [K-Dur 20] 20 meq PO DAILY 04/06/24 04/06/24 Previous Rx's Medication Instructions Recorded Magnesium Oxide [Mag-Ox] 400 mg PO DAILY 90 Days #90 tab 12/31/23 Allergies Allergy/AdvReac Type Severity Reaction Status Date / Time Penicillins Allergy Severe Anaphylaxis Verified 04/06/24 13:28 vancomycin Allergy Severe Swelling Verified 04/06/24 13:28 in lips cefepime Allergy Swelling Verified 04/06/24 13:28 clindamycin Allergy Anaphylaxis Verified 04/06/24 13:28 Influenza Virus Vaccines Allergy Anaphylaxis Verified 04/06/24 13:28 latex Allergy Itching Verified 04/06/24 13:28 and swelling morphine Allergy Anaphylaxis Verified 04/06/24 13:28 albuterol [From Ventolin HFA] AdvReac Rapid Verified 04/06/24 13:28 Heart Rate dexamethasone [From Decadron] AdvReac severe Verified 04/06/24 13:28 pain, like needles in groin [id number] AdvReac Confusion, Verified 04/06/24 13:28 [From Emgality Pen] increased blood pressure metoclopramide [From Reglan] AdvReac "felt like Verified 04/06/24 13:28 I needed to jump out of my skin" prochlorperazine AdvReac severe Verified 04/06/24 13:28 [From Compazine] anxiety Review of Systems ROS Statement: Those systems with pertinent positive or pertinent negative responses have been documented in the HPI. ROS Other: All systems not noted in ROS Statement are negative. 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 Patient states past history of C-Diff from 03/2023. Last Myocardial Infarction Date:: 08/30/2018 History of Any Multi-Drug Resistant Organisms: None Reported Date of last positivie culture/infection: 03/02/23 MDRO Source:: Stool Past Surgical History: Back Surgery, Breast Surgery, Cardiac Valve Replacement, Section, Cholecystectomy, Heart Catheterization, Hysterectomy, Pacemaker Additional Past Surgical History / Comment(s): pacemaker d/t bradycardia/hypotension with last one place in 2013 in [place], [place], 3 lower back surgeries, bilateral breast reduction. 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. lamenectomy Past Anesthesia/Blood Transfusion Reactions: No Reported Reaction Additional Past Anesthesia/Blood Transfusion Reaction / Comment(s): blood transfusion no issues Type of Cardiac Device: Permanent Pacemaker, Unknown Device Placement Date:: 2012 Past Psychological History: Anxiety, PTSD Smoking Status: Never smoker Past Alcohol Use History: Rare Past Drug Use History: Marijuana - Past Family History Mother Additional Family Medical History / Comment(s): Mother at the age of 49 yrs after surgery for silicon breast implants with a leak that caused ARDS and DIC per pt (fibroid cysts) Father Family Medical History: Cancer, Hyperlipidemia, Hypertension Additional Family Medical History / Comment(s): Father is a colon cancer survivor. General Exam Limitations: no limitations General appearance: other (Drowsy, arousable to voice) Head exam: Present: atraumatic Eye exam: Present: normal appearance, PERRL, EOMI Neck exam: Present: normal inspection. Absent: tenderness Respiratory exam: Present: normal lung sounds bilaterally Cardiovascular Exam: Present: regular rate, normal rhythm GI/Abdominal exam: Present: soft. Absent: tenderness Extremities exam: Present: normal inspection, full ROM. Absent: tenderness Neurological exam: Present: other (Drowsy, limited exam, no focal deficit). Absent: motor sensory deficit Expanded Neurological exam: Present: protecting the airway Patient oriented to: Present: person Cranial nerves: EOM's Intact: Normal Motor strength exam: RUE: 5, LUE: 5, RLE: 5, LLE: 5 Eye Response: (3) open to voice Motor Response: (6) obeys commands Verbal Response: (4) confused conversation Psychiatric exam: Present: flat affect Skin exam: Present: normal color Course Vital Signs 04/06/24 11:57 Temperature 98 F Pulse Rate 70 Respiratory 18 Rate Blood Pressure 99/76 O2 Sat by Pulse 95 Oximetry EKG Findings - EKG Results: EKG: interpreted by ERMD (Paced rhythm with a rate of 70.), normal axis, normal QRS, normal ST/T Medical Decision Making - Medical Decision Making Was pt. sent in by a medical professional or institution (, PA, CHECKING DEPARTMENT SUPERVISOR, urgent care, hospital, or group home...) When possible be specific @ -No Did you speak to anyone other than the patient for history (EMS, parent, family, police, friend...)? What history was obtained from this source @ -No Did you review nursing and triage notes (agree or disagree)? Why? @ -I reviewed and agree with nursing and triage notes Were old charts reviewed (outside hosp., previous admission, EMS record, old EKG, old radiological studies, urgent care reports/EKG's, group home records)? Report findings @ -No old charts were reviewed Differential Diagnosis (chest pain, altered mental status, abdominal pain women, abdominal pain men, vaginal bleeding, weakness, fever, dyspnea, syncope, headache, dizziness, GI bleed, back pain, seizure, CVA, palpatations, mental health, musculoskeletal)? @ -Differential Seizure: Recurrent seizure disorder, febrile seizure, alcohol withdrawal, stimulants, meningitis, encephalitis, intercranial hemorrhage, intracranial tumor, stroke, eclampsia, thyrotoxicosis, hypocalcemia, hyponatremia, hypernatremia, hypomagnesemia, psychogenic, this is not meant to be an all-inclusive list. EKG interpreted by me (3pts min.). @ -As above X-rays interpreted by me (1pt min.). @ -None done CT interpreted by me (1pt min.). @ -CT scan of the brain does not reveal acute abnormality. U/S interpreted by me (1pt. min.). @ -None done What testing was considered but not performed or refused? (CT, X-rays, U/S, labs)? Why? @ -None What meds were considered but not given or refused? Why? @ -None Did you discuss the management of the patient with other professionals (professionals i.e. , PA, CHECKING DEPARTMENT SUPERVISOR, lab, RT, psych nurse, social services manager, reconnaissance man, teacher, assurance officer, medical case worker)? Give summary @ -Case discussed with Dr. Hassan who is familiar with this patient and will admit. Was smoking cessation discussed for >3mins.? @ -No Was critical care preformed (if so, how long)? @ -No Were there social determinants of health that impacted care today? How? (Homelessness, low income, unemployed, alcoholism, drug addiction, transportation, low edu. Level, literacy, decrease access to med. care, longterm, rehab)? @ -No Was there de-escalation of care discussed even if they declined (Discuss DNR or withdrawal of care, Hospice)? DNR status @ -No What co-morbidities impacted this encounter? (DM, HTN, Smoking, COPD, CAD, Canc er, CVA, ARF, Chemo, Hep., AIDS, mental health diagnosis, sleep apnea, morbid obesity)? @ -History of pseudoseizures Was patient admitted / discharged? Hospital course, mention meds given and route, prescriptions, significant lab abnormalities, going to OR and other pertinent info. @ -Patient presents with a seizure. On reevaluation patient is improved and states she actually has pseudoseizures. Patient does have some dehydration and hypokalemia and will be admitted. Admission orders written. Replacement ordered. Undiagnosed new problem with uncertain prognosis? @ -No Drug Therapy requiring intensive monitoring for toxicity (Heparin, Nitro, Insulin, Cardizem)? @ -No Were any procedures done? @ -No Diagnosis/symptom? @ -Pseudoseizure, hypokalemia Acute, or Chronic, or Acute on Chronic? @ -Acute on chronic, acute on chronic Uncomplicated (without systemic symptoms) or Complicated (systemic symptoms)? @ -Complicated with dehydration and hypokalemia Side effects of treatment? @ -No Exacerbation, Progression, or Severe Exacerbation? @ -No Poses a threat to life or bodily function? How? (Chest pain, [place], [place], pneumonia, PE, COPD, DKA, ARF, appy, cholecystitis, CVA, Diverticulitis, Homicidal, Suicidal, threat to staff... and all critical care pts) @ -Threat to metabolic function - Lab Data Result diagrams: 04/06/24 12:30 04/06/24 12:30 Lab Results 04/06/24 04/06/24 Range/Units 12:30 12:30 WBC 7.3 (3.8-10.6) k/uL RBC 4.63 (3.80-5.40) m/uL Hgb 13.9 (11.4-16.0) gm/dL Hct 40.8 (34.0-46.0) % MCV 88.1 (80.0-100.0) fL MCH 30.1 (25.0-35.0) pg MCHC 34.1 (31.0-37.0) g/dL RDW 14.4 (11.5-15.5) % Plt Count 175 (150-450) k/uL MPV 7.7 Neutrophils % 82 % Lymphocytes % 8 % Monocytes % 7 % Eosinophils % 2 % Basophils % 0 % Neutrophils # 5.9 (1.3-7.7) k/uL Lymphocytes # 0.6 L (1.0-4.8) k/uL Monocytes # 0.5 (0-1.0) k/uL Eosinophils # 0.1 (0-0.7) k/uL Basophils # 0.0 (0-0.2) k/uL Sodium 134 L (137-145) mmol/L Potassium 2.5 L* (3.5-5.1) mmol/L Chloride 91 L (98-107) mmol/L Carbon Dioxide 35 H (22-30) mmol/L Anion Gap 8 mmol/L BUN 52 H (7-17) mg/dL Creatinine 1.36 H (0.52-1.04) mg/dL Est GFR (CKD-EPI)AfAm 49 (>60 ml/min/1.73 sqM) Est GFR (CKD-EPI)NonAf 43 (>60 ml/min/1.73 sqM) Glucose 142 H (74-99) mg/dL Calcium 9.1 (8.4-10.2) mg/dL Magnesium 2.2 (1.6-2.3) mg/dL Total Bilirubin 0.5 (0.2-1.3) mg/dL AST 34 (14-36) U/L ALT 33 (4-34) U/L Alkaline Phosphatase 67 (38-126) U/L Total Protein 6.8 (6.3-8.2) g/dL Albumin 4.3 (3.5-5.0) g/dL Serum Alcohol <10 mg/dL Disposition Clinical Impression: Hypokalemia Disposition: ADMITTED IP TO THIS HOSP Is patient prescribed a controlled substance at d/c from ED?: No Referrals: Franklin Hassan MD [Primary Care Provider] - 1-2 days Time of Disposition: 13:57
[2024-04-06 12:44] LABS: Basophils % (A) 0 %; Eosinophils # (A) 0.1 k/uL (0-0.7); Eosinophils % (A) 2 %; HCT 40.8 % (34.0-46.0); HGB 13.9 gm/dL (11.4-16.0); Lymphocytes # (A) 0.6 k/uL (1.0-4.8); Lymphocytes % (A) 8 %; MCH 30.1 pg (25.0-35.0); MCHC 34.1 g/dL (31.0-37.0); MCV 88.1 fL (80.0-100.0); Mean Platelet Volume 7.7; Monocytes # (A) 0.5 k/uL (0-1.0); Monocytes % (A) 7 %; Neutrophils # (A) 5.9 k/uL (1.3-7.7); Neutrophils % (A) 82 %; Platelet Count 175 k/uL (150-450); RBC 4.63 m/uL (3.80-5.40); RDW 14.4 % (11.5-15.5); WBC 7.3 k/uL (3.8-10.6)
[2024-04-06 12:53] LABS: ALT 33 U/L (4-34); AST 34 U/L (14-36); African American GFR (CKD) 49 (>60 ml/min/1.73 sqM); Albumin 4.3 g/dL (3.5-5.0); Alcohol <10 mg/dL; Alkaline Phosphatase 67 U/L (38-126); Anion Gap 8 mmol/L; Blood Urea Nitrogen 52 mg/dL (7-17); Calcium 9.1 mg/dL (8.4-10.2); Carbon Dioxide 35 mmol/L (22-30); Chloride 91 mmol/L (98-107); Glucose 142 mg/dL (74-99); Magnesium 2.2 mg/dL (1.6-2.3); Non-African American GFR(CKD) 43 (>60 ml/min/1.73 sqM); Sodium 134 mmol/L (137-145); Total Bilirubin 0.5 mg/dL (0.2-1.3); Total Protein 6.8 g/dL (6.3-8.2)
--- NOTE | 2024-04-06 13:06 | CT ---
EXAMINATION TYPE: CT brain wo con CT DLP: 1125.4 mGycm, Automated exposure control for dose reduction was used. DATE OF EXAM: 04/06/2024 1:01 PM COMPARISON: CT brain C-spine 12/26/2023, CT brain 05/16/2023 CLINICAL INDICATION:Female, 58 years old with history of seizure activity, seizure TECHNIQUE: Brain: Multiple axial CT images of the brain were obtained without IV contrast. . Coronal and sagitta l reformats reviewed. FINDINGS: Brain: Extra-axial spaces: No abnormal extra-axial fluid collections. Ventricular system: Within normal limits Cerebral parenchyma: No acute intraparenchymal hemorrhage or mass effect. The mar-white junction is well differentiated. Cerebellum: Unremarkable. Mass effect: No evidence of midline shift. Intracranial vasculature: unremarkable Soft tissues: Normal. Calvarium/osseous structures: No depressed skull fracture. Paranasal sinuses and mastoid air cells: Clear Visualized orbits: Orbital contents are intact. IMPRESSION: No acute intracranial process. [facility], , 04/06/2024 1:03 PM
[2024-04-06 13:13] LABS: Potassium 2.5 mmol/L (3.5-5.1)
[2024-04-06] MEDS: POTASSIUM CHLORIDE 20 MEQ in WATER FOR INJECTION 1 100ML.BAG IVPB STA (13:33)
[2024-04-06] MEDS: POTASSIUM CHLORIDE ER 20 MEQ TAB.ER PO SCH (13:33)
[2024-04-06] MEDS: SODIUM CHLORIDE 0.9% 1,000 ML IV STA ×2 (13:34→13:35)
[2024-04-06] MEDS ORDERED: NALOXONE 0.4 MG/ML 1 ML VIAL IV PRN (13:58)
[2024-04-06] MEDS ORDERED: MIDODRINE 5 MG TAB PO PRN (14:34)
[2024-04-06] MEDS ORDERED: diphenhydrAMINE 50 MG/ML 1 ML VIAL IM PRN (14:34)
[2024-04-06] MEDS: diphenhydrAMINE 50 MG/ML 1 ML VIAL IVP STA (14:43)
[2024-04-06] MEDS: ONDANSETRON 4 MG TAB PO PRN (14:49)
[2024-04-06] MEDS: HYDROcodone/APAP 7.5-325MG 1 EACH TAB PO SCH (15:46)
[2024-04-06] MEDS ORDERED: HYDROmorphone 1 MG/ML 1 ML SYRINGE IM PRN (15:59)
[2024-04-06] MEDS: GABAPENTIN 300 MG CAP PO SCH (16:31)
[2024-04-06] MEDS: HYDROmorphone 1 MG/ML 1 ML SYRINGE IVP PRN (16:44)
[2024-04-06] MEDS: LORazepam 2 MG/ML INJ IV PRN (19:57)
[2024-04-06] MEDS: 0.9% NACL WITH KCL 20 MEQ/L 1,000 ML IV SCH (19:58)
[2024-04-06] MEDS: IPRATROPIUM 0.5 MG/2.5 ML NEBU INHALATION PRN (20:30)
[2024-04-06] MEDS: BUMETANIDE 1 MG TAB PO SCH (21:07)
[2024-04-06] MEDS: SPIRONOLACTONE 25 MG TAB PO SCH (21:07)
[2024-04-06] MEDS: APIXABAN 5 MG TAB PO SCH (21:08)
[2024-04-06] MEDS: ATORVASTATIN 40 MG TAB PO SCH (21:08)
[2024-04-06] MEDS: busPIRone HCl 5 MG TAB PO SCH (21:08)
[2024-04-06 22:16] LABS: Appearance,Urine Clear (Clear); Bilirubin,Urine Negative (Negative); Blood,Urine Negative (Negative); Color,Urine Colorless; Glucose,Urine (UA) Negative (Negative); Ketones,Urine Negative (Negative); Leukocyte Esterase,Urine Trace (Negative); Mucus,Urine Rare /hpf; Nitrite,Urine Negative (Negative); Protein,Urine Negative (Negative); RBC,Urine 1 /hpf (0-5); Specific Gravity,Urine 1.017 (1.001-1.035); Squamous Epithelial Cell,Urine 1 /hpf (0-4); Urobilinogen,Urine <2.0 mg/dL (<2.0); WBC,Urine 3 /hpf (0-5)
[2024-04-06 22:32] LABS: Amphetamine Screen,Urine Not Detected (NotDetected); Barbiturate Screen,Urine Not Detected (NotDetected); Benzodiazepines Screen,Urine Not Detected (NotDetected); Cocaine Screen,Urine Not Detected (NotDetected); Methadone Screen, Urine Not Detected (NotDetected); Opiate Screen,Urine Detected (NotDetected); Oxycodone Screen, Urine Not Detected (NotDetected); Phencyclidine Screen,Urine Not Detected (NotDetected); Tricyclic Antidepressant,Urine Detected (NotDetected); Urn Cannabinoid Scrn Not Detected (NotDetected)
--- NOTE | 2024-04-07 01:31 | HP ---
HISTORY AND PHYSICAL HISTORY OF PRESENT ILLNESS: A 58-year-old white female, came to the emergency room with reported seizure. She has history of seizures, pseudoseizures. She ran out of some medications. Apparently, she came with hyponatremia, progressive nausea, and vomiting. HOME MEDICATIONS: 1. Lipitor 40 daily. 2. Zoloft 200 daily. 3. Eliquis 5 mg b.i.d. 4. BuSpar 5 b.i.d. 5. Bumex 2 mg daily. 6. Flonase 0.1 daily. 7. Metoprolol-XL 50 daily. 8. Requip 2 mg at night. 9. Benadryl IM p.r.n. q.i.d. 10.Gabapentin 600 q.i.d. 11.Midodrine 5 mg t.i.d. 12.[place] q.i.d. 13.Potassium 20 mEq daily. ALLERGIES: Multiple allergies. See further orders. PAST MEDICAL HISTORY: Myocardial infarction, pulmonary embolism, blood disorder, renal disease, seizure disorder, antiphospholipid antibody syndrome, chronic kidney disease stage 3, migraine, cervical disk disease, lumbar disk disease, vertigo, lupus, heart valve replacement. PAST SURGICAL HISTORY: Back surgery, breast surgery, cardiac valve replacement, , cholecystectomy, heart catheterization, pacemaker, bilateral breast reduction, 3 lower back surgeries, upper arm port, tricuspid valve replacement with pig valve. FAMILY HISTORY: Mother after surgery for silicon breast implants. Father cancer, hypertension, dyslipidemia. PHYSICAL EXAMINATION: VITAL SIGNS: Stable, afebrile. CARDIOVASCULAR: S1, S2. Mild tachycardic. LUNGS: Transmitted upper sounds. Scattered wheeze. GI: Soft. HEMATOLOGY: Negative Homans. PSYCH: Fair mood and affect. She appears anxious, nervous, mild tremors. OPHTHALMOLOGIC: Pupils equal, round, reactive. NEUROLOGIC: Alert and oriented x3. Cranial nerves intact. VITAL SIGNS: Blood pressure 99/76, O2 of 95%, temp 98, pulse 70, respiratory rate 16. ENDOCRINE: She has 2+ edema, generalized edema. LABORATORY DATA: BUN is 52, creatinine 1.36, sodium 134, potassium 2.5. ASSESSMENT: She has seizure versus pseudoseizures, dehydration, anemia, multiple medical conditions, acute on chronic diastolic heart failure, chronic obstructive pulmonary disease, asthma, antiphospholipid syndrome, lupus. Monitor electrolytes. Rehydrate. Chest procedures. Prognosis guarded. Please see further orders. MMODL / IJN: [id number] /
[2024-04-07] MEDS: diphenhydrAMINE 50 MG/ML 1 ML VIAL IVP PRN (06:21)
[2024-04-07] MEDS: SERTRALINE 100 MG TAB PO SCH (08:50)
[2024-04-07] MEDS: MAGNESIUM OXIDE 400 MG TAB PO SCH (08:51)
[2024-04-07] MEDS: METOPROLOL SUCCINATE (ER) 50 MG TAB.ER.24H PO SCH (08:51)
[2024-04-07] MEDS: CHOLECALCIFEROL 25 MCG (1000 IU) TABLET PO SCH (08:51)
[2024-04-07] MEDS: FLUDROCORTISONE 0.1 MG TAB PO SCH (08:52)
[2024-04-07] MEDS: PYRIDOXINE 50 MG TAB PO SCH (08:53)
[2024-04-07 10:05] LABS: Basophils # (A) 0.02 X 10*3/uL (0.00-0.10); Basophils % (A) 0.4 %; Eosinophils # (A) 0.08 X 10*3/uL (0.04-0.35); Eosinophils % (A) 1.6 %; HCT 36.2 % (37.2-46.3); HGB 11.6 g/dL (12.0-15.0); Lymphocytes % (A) 13.9 %; MCH 29.4 pg (27.0-32.0); MCV 91.6 FL (80.0-97.0); Mean Platelet Volume 10.6 FL (9.5-12.2); Monocytes # (A) 0.59 X 10*3/uL (0.20-1.00); Monocytes % (A) 11.7 %; NRBC Per 100 WBC 0 X 10*3/uL (0.00-0.01); Neutrophils # (A) 3.62 X 10*3/uL (1.80-7.70); Platelet Count 155 X 10*3/uL (140-440); RBC 3.95 X 10*6/uL (4.10-5.20); RDW 14.5 % (11.5-14.5); WBC 5.03 X 10*3/uL (4.50-10.00)
[2024-04-07 10:25] LABS: BUN/Creat Ratio 28.09 Ratio (12.00-20.00); Blood Urea Nitrogen 30.9 mg/dL (9.0-27.0); Glucose 103 mg/dL (70-110)
[2024-04-07 10:26] LABS: ALT 26 U/L (8-44); AST 30 U/L (13-35); Albumin 3.7 g/dL (3.8-4.9); Albumin/Globulin Ratio 2.06 Ratio (1.60-3.17); Alkaline Phosphatase 53 U/L (41-126); Carbon Dioxide 26.4 mmol/L (21.6-31.8); Chloride 103 mmol/L (96-109); Globulin 1.8 g/dL (1.6-3.3); Magnesium 1.9 mg/dL (1.5-2.4); Sodium 140 mmol/L (135-145); Total Bilirubin <0.2 mg/dL (0.3-1.2); Total Protein 5.5 g/dL (6.2-8.2)
--- NOTE | 2024-04-07 11:39 | P.PN ---
Subjective Progress Note Date: 04/07/24 April 07, 2024, patient seen evaluate examined during rounds while covering for Dr. Franklin Hassan. Patient is a [age]-year-old male morbidly obese came into the hospital with episode of seizure while in dentist office. Patient has a prior history of seizures with association with electrolyte imbalance hypokalemia, on arrival patient was confused appeared to be in postictal status awake only provide her name. However today she is more alert and awake however slow to respond still. Patient has been having vomiting and emesis for last few days. On arrival EKG was low QRS voltage sinus rhythm rate of 70. CT scan of the head no acute changes identified her CBC hemoglobin is 11.6 down from 13.9 y esterday sodium 134 potassium 2.5 now up to 140/4.0 CO2 improved to 26 from 35 chloride improved to 103 from 91 BUN/creatinine 52/1.36 yesterday on arrival now 30.9/1.1. Inflammatory parameters including procalcitonin is 0.08 TSH and free T3 were T4 within normal limit, cortisol level 6.3. Patient is back on Lipitor Eliquis antidepressant vitamin D supplement Florinef is 0.1 daily Neurontin meto prolol as well as midodrine patient has been on potassium supplements as well with gentle rehydration oxygen saturation 91% hemodynamic status stable and afebrile. Patient however complained of sore throat and pulmonary congestion and wondering about flu as well as COVID-19 infection. Noted that x-ray is not done. Of note that patient has been getting right knee steroid injection almost 2 to 4 weeks entire Her prior medical history significant for adrenal insufficiency with multiple levels of cortisol level normal low or low, dyslipidemia, major depression, [place], PE, chronic kidney disease, seizure disorder, antiphospholipid antibody syndrome, chronic kidney disease stage III, chronic migraine headaches, cervical disc disease, lumbar disc disease, vertigo, lupus, history of heart valve s urgery exact details not available. Patient has a pacemaker as well. Patient has been taking her medications but apparently ran out of them not exactly sure which one she was out. But review of the old records revealed that in addition to statins antidepressant patient is on Eliquis 5 mg 2 times a day Bumex 2 mg daily metoprolol, Requip for restless leg syndrome as well as Neurontin 604 times a day and midodrine 5 mg 3 times a day and potassium supplements. She has been complaining as well as more snoring and apneic events than baseline in last several months with weight gain, patient will benefit from sleep study as outpatient Objective - Vital Signs Vital signs: Vital Signs Temp 98.9 F 04/07/24 06:42 Pulse 70 04/07/24 06:42 Resp 18 04/07/24 06:42 BP 110/70 04/07/24 06:42 Pulse Ox 91 L 04/07/24 06:42 FiO2 Intake & Output 04/06/24 04/07/24 04/07/24 18:59 06:59 18:59 Weight 77.111 kg 77.111 kg Other: # Voids 1 - Constitutional General appearance: Present: disheveled, morbidly obese, no acute distress - EENT Eyes: Present: EOMI, PERRLA ENT: Present: normal oropharynx Ears: bilateral: normal - Neck Carotids: bilateral: upstroke normal Thyroid: negative: normal size - Respiratory Respiratory: bilateral: CTA - Cardiovascular Rhythm: regular Heart sounds: normal: S1, S2 - Gastrointestinal General gastrointestinal: Present: normal bowel sounds, soft - Integumentary Integumentary: Present: normal turgor - Neurologic Neurologic: Present: CNII-XII intact - Musculoskeletal Musculoskeletal: Present: gait normal, generalized weakness, strength equal bilaterally - Psychiatric Psychiatric: Present: A&O x's 3, appropriate affect, intact judgment & insight - Labs CBC & Chem 7: 04/07/24 05:24 04/07/24 05:24 Labs: Abnormal Lab Results - Last 24 Hours (Table) 04/06/24 04/06/24 04/06/24 Range/Units 12:30 12:30 21:45 RBC (4.10-5.20) X 10*6/uL Hgb (12.0-15.0) g/dL Hct (37.2-46.3) % Lymphocytes # 0.6 L (1.0-4.8) k/uL Sodium 134 L (137-145) mmol/L Potassium 2.5 L* (3.5-5.1) mmol/L Chloride 91 L (98-107) mmol/L Carbon Dioxide 35 H (22-30) mmol/L BUN 52 H (7-17) mg/dL Creatinine 1.36 H (0.52-1.04) mg/dL Est GFR (CKD-EPI) (>=60) BUN/Creatinine Ratio (12.00-20.00) Ratio Glucose 142 H (74-99) mg/dL Calcium (8.7-10.3) mg/dL Total Bilirubin (0.3-1.2) mg/dL Total Protein (6.2-8.2) g/dL Albumin (3.8-4.9) g/dL Ur Leukocyte Esterase Trace H (Negative) Urine Mucus Rare H (None) /hpf Urine Opiates Screen Detected H (NotDetected) U Tricyclic Antidepress Detected H (NotDetected) 04/07/24 04/07/24 Range/Units 05:24 05:24 RBC 3.95 L (4.10-5.20) X 10*6/uL Hgb 11.6 L (12.0-15.0) g/dL Hct 36.2 L (37.2-46.3) % Lymphocytes # 0.70 L (1.0-4.8) k/uL Sodium (137-145) mmol/L Potassium (3.5-5.1) mmol/L Chloride (98-107) mmol/L Carbon Dioxide (22-30) mmol/L BUN 30.9 H (7-17) mg/dL Creatinine (0.52-1.04) mg/dL Est GFR (CKD-EPI) 58 L (>=60) BUN/Creatinine Ratio 28.09 H (12.00-20.00) Ratio Glucose (74-99) mg/dL Calcium 8.0 L (8.7-10.3) mg/dL Total Bilirubin <0.2 L (0.3-1.2) mg/dL Total Protein 5.5 L (6.2-8.2) g/dL Albumin 3.7 L (3.8-4.9) g/dL Ur Leukocyte Esterase (Negative) Urine Mucus (None) /hpf Urine Opiates Screen (NotDetected) U Tricyclic Antidepress (NotDetected) - Imaging and Cardiology CT Scan - head: report reviewed, image reviewed (Finding as noted above) Assessment and Plan Assessment: Pseudoseizure, recovered with history of electrolyte imbalance Severe hyponatremia and hypokalemia Adrenal insufficiency Sore throat ongoing cough and congestion evaluate for acute bronchitis History of antiphospholipid antibody syndrome History of pulmonary embolism Dyslipidemia Hypertension hypertensive cardiovascular disease Acute on chronic kidney disease Prior history of C. difficile Plan: Start Zithromax 500 mg daily Obtain chest x-ray as well as swabs for COVID and influenza Continue gentle hydration and monitoring of electrolytes Follow closely on home medications Time with Patient: Greater than 30
[2024-04-07] MEDS: FUROSEMIDE 10 MG/ML 4 ML VIAL IV STA (12:53)
--- NOTE | 2024-04-07 13:19 | XR ---
EXAMINATION TYPE: XR chest 1V DATE OF EXAM: 04/07/2024 COMPARISON: 03/30/2024 CLINICAL INDICATION: Female, 58 years old with history of acute bronchitis; TECHNIQUE: Single frontal view of the chest is obtained. FINDINGS: There is a small focal partially consolidative opacity in the right upper lobe representing pneumonia . Left lung is clear. There are multiple healed left rib fractures. There is no pleural effusion or pneumothorax. There is a single-lead cardiac pacemaker. There is an prosthetic aortic valve. There is a loop record er. The heart is prominent but the pulmonary vasculature does not appear congested. IMPRESSION: Focal infiltrate in the right upper lobe indicating possible pneumonia. Short-term follow-[facility] to [facility] is recommended. [facility], , 04/07/2024 1:17 PM
[2024-04-07] MEDS: AZITHROMYCIN 500 MG in SODIUM CHLORIDE 0.9% 250 ML IVPB SCH (22:18)
[2024-04-08 09:14] LABS: Basophils # (A) 0.02 X 10*3/uL (0.00-0.10); Basophils % (A) 0.3 %; Eosinophils # (A) 0.11 X 10*3/uL (0.04-0.35); Eosinophils % (A) 1.8 %; HCT 37.3 % (37.2-46.3); HGB 11.8 g/dL (12.0-15.0); Lymphocytes # (A) 0.89 X 10*3/uL (0.90-5.00); Lymphocytes % (A) 14.4 %; MCH 28.7 pg (27.0-32.0); MCHC 31.6 g/dL (32.0-37.0); MCV 90.8 FL (80.0-97.0); Mean Platelet Volume 10.7 FL (9.5-12.2); Monocytes # (A) 0.57 X 10*3/uL (0.20-1.00); Monocytes % (A) 9.3 %; NRBC Per 100 WBC 0 X 10*3/uL (0.00-0.01); Neutrophils # (A) 4.56 X 10*3/uL (1.80-7.70); Platelet Count 149 X 10*3/uL (140-440); RBC 4.11 X 10*6/uL (4.10-5.20); RDW 14.6 % (11.5-14.5); WBC 6.16 X 10*3/uL (4.50-10.00)
[2024-04-08 10:39] LABS: ALT 27 U/L (8-44); AST 34 U/L (13-35); Albumin 3.9 g/dL (3.8-4.9); Albumin/Globulin Ratio 1.86 Ratio (1.60-3.17); Alkaline Phosphatase 54 U/L (41-126); BUN/Creat Ratio 21.09 Ratio (12.00-20.00); Blood Urea Nitrogen 23.2 mg/dL (9.0-27.0); Calcium 8.6 mg/dL (8.7-10.3); Carbon Dioxide 23.6 mmol/L (21.6-31.8); Chloride 100 mmol/L (96-109); Globulin 2.1 g/dL (1.6-3.3); Glucose 81 mg/dL (70-110); Magnesium 2.2 mg/dL (1.5-2.4); Phosphorus 2.1 mg/dL (2.4-5.1); Sodium 136 mmol/L (135-145); Total Bilirubin <0.2 mg/dL (0.3-1.2)
--- NOTE | 2024-04-08 11:43 | P.PN ---
Subjective Progress Note Date: 04/08/24 Principal diagnosis: Aspiration pneumonia versus chemical pneumonitis Pseudoseizure, recovered with history of electrolyte imbalance Severe hyponatremia and hypokalemia Adrenal insufficiency Sore throat ongoing cough and congestion evaluate for acute bronchitis History of antiphospholipid antibody syndrome History of pulmonary embolism Dyslipidemia Hypertension hypertensive cardiovascular disease Acute on chronic kidney disease Prior history of C. difficile April 08, 2024, patient seen eval examined during rounds labs reviewed medications and care plan discussed, patient continue to feel congestion in the chest ongoing cough but nonproductive. Labs from today reviewed CBC within normal limit white cell count 6.1, chemistry reviewed potassium is 5 BUN/creat inine is 23/1.1 continue to improve, mag and Phos fairly within normal limit. Viral panel influenza A as well as influenza B negative so as COVID. Chest x- ray shows focal pneumonia in the right upper lobe versus chemical pneumonitis. Currently patient is on direct acting oral anticoagulants along with high intensity statin with Zithromax 500 mg daily and continuation of home medications. Oxygen saturation 93% on room air patient placed on 3 L nasal cannula for symptomatic improvement. No dynamics including blood pressure fairly within normal limits. Will obtain follow-up chest x-ray for progression of disease in the lungs. Penicillin and derivative with clindamycin cannot be added due to history of allergy however patient has cefepime before and able to tolerated with some GI upset, will add cefepime with Flagyl and continue azithromycin. Of note that ultrasound unable to get IV access patient is without IV will do a central line April 07, 2024, patient seen evaluate examined during rounds while covering for Dr. Franklin Hassan. Patient is a [age]-year-old male morbidly obese came into the hospital with episode of seizure while in dentist office. Patient has a prior history of seizures with association with electrolyte imbalance hypokalemia, on arrival patient was confused appeared to be in postictal status awake only provide her name. However today she is more alert and awake however slow to respond still. Patient has been having vomiting and emesis for last few days. On arrival EKG was low QRS voltage sinus rhythm rate of 70. CT scan of the head no acute changes identified her CBC hemoglobin is 11.6 down from 13.9 yesterday sodium 134 potassium 2.5 now up to 140/4.0 CO2 improved to 26 from 35 chloride improved to 103 from 91 BUN/creatinine 52/1.36 yesterday on arrival now 30.9/1.1. Inflammatory parameters including procalcitonin is 0.08 TSH and free T3 were T4 within normal limit, cortisol level 6.3. Patient is back on Lipitor Eliquis antidepressant vitamin D supplement Florinef is 0.1 daily Neurontin metoprolol as well as midodrine patient has been on potassium supplements as well with gentle rehydration oxygen saturation 91% hemodynamic status stable and afebrile. Patient however complained of sore throat and pulmonary congestion and wondering about flu as well as COVID-19 infection. Noted that x-ray is not done. Of note that patient has been getting right knee steroid injection almost 2 to 4 weeks entire Her prior medical history significant for adrenal insufficiency with multiple levels of cortisol level normal low or low, dyslipidemia, major depression, [place], PE, chronic kidney disease, seizure disorder, antiphospholipid antibody syndrome, chronic kidney disease stage III, chronic migraine headaches, cervical disc disease, lumbar disc disease, vertigo, lupus, history of heart valve surgery exact details not available. Patient has a pacemaker as well. Patient has been taking her medications but apparently ran out of them not exactly sure which one she was out. But review of the old records revealed that in addition to statins antidepressant patient is on Eliquis 5 mg 2 times a day Bumex 2 mg daily metoprolol, Requip for restless leg syndrome as well as Neurontin 604 times a day and midodrine 5 mg 3 times a day and potassium supplements. She has been complaining as well as more snoring and apneic events than baseline in last several months with weight gain, patient will benefit from sleep study as outpatient Objective - Vital Signs Vital signs: Vital Signs Temp 98.9 F 04/08/24 07:47 Pulse 76 04/08/24 07:47 Resp 20 04/08/24 07:47 BP 110/68 04/08/24 07:47 Pulse Ox 93 L 04/08/24 07:47 FiO2 Intake & Output 04/07/24 04/08/24 04/08/24 18:59 06:59 18:59 Other: # Voids 2 3 - Exam - Constitutional General appearance: Present: disheveled, morbidly obese, patient visibly more short of breath on supplemental oxygen - EENT Eyes: Present: EOMI, PERRLA ENT: Present: normal oropharynx Ears: bilateral: normal - Neck Carotids: bilateral: upstroke normal Thyroid: negative: normal size - Respiratory Respiratory: bilateral: CTA - Cardiovascular Rhythm: regular Heart sounds: normal: S1, S2 - Gastrointestinal General gastrointestinal: Present: normal bowel sounds, soft - Integumentary Integumentary: Present: normal turgor - Neurologic Neurologic: Present: CNII-XII intact - Musculoskeletal Musculoskeletal: Present: gait normal, generalized weakness, strength equal bilaterally - Psychiatric Psychiatric: Present: A&O x's 3, appropriate affect, intact judgment & insight - Labs CBC & Chem 7: 04/08/24 06:16 12 06:16 Labs: Abnormal Lab Results - Last 24 Hours (Table) 04/08/24 04/08/24 Range/Units 06:16 06:16 Hgb 11.8 L (12.0-15.0) g/dL MCHC 31.6 L (32.0-37.0) g/dL RDW 14.6 H (11.5-14.5) % Lymphocytes # 0.89 L (0.90-5.00) X 10*3/uL Anion Gap 12.40 H (4.00-12.00) mmol/L Est GFR (CKD-EPI) 58 L (>=60) BUN/Creatinine Ratio 21.09 H (12.00-20.00) Ratio Calcium 8.6 L (8.7-10.3) mg/dL Phosphorus 2.1 L (2.4-5.1) mg/dL Total Bilirubin <0.2 L (0.3-1.2) mg/dL Total Protein 6.0 L (6.2-8.2) g/dL Assessment and Plan Assessment: Right upper lobe aspiration pneumonia and cefepime and Flagyl as per discussion with patient Central line due to lack of IV access Pseudoseizure, recovered with history of electrolyte imbalance Severe hyponatremia and hypokalemia Adrenal insufficiency Sore throat ongoing cough and congestion evaluate for acute bronchitis History of antiphospholipid antibody syndrome History of pulmonary embolism Dyslipidemia Hypertension hypertensive cardiovascular disease Acute on chronic kidney disease Prior history of C. difficile Plan: As noted above add cefepime and Flagyl, obtain central line, and trial of steroids Continue Zithromax 500 mg daily Reviewed results of yesterday chest x-ray as well as swabs for COVID and influenza Continue gentle hydration and monitoring of electrolytes Follow closely on home medications Time with Patient: Greater than 30
--- NOTE | 2024-04-08 12:41 | P.PCN ---
Date of Procedure: 04/08/24 Preoperative Diagnosis: Sepsis and pneumonia Postoperative Diagnosis: As above Procedure(s) Performed: Central line Anesthesia: regional Surgeon: Vinicio Cuevas Estimated Blood Loss (ml): 1 Pathology: none sent Condition: stable Disposition: floor Indications for Procedure: Sepsis, pneumonia, lack of IV access Operative Findings: Patient prepared and draped in the usual fashion, operative detail explained to patient at length, ultrasound was utilized to place right IJ triple-lumen catheter using modified Seldinger technique, patient tolerated the procedure well no complication noted postprocedure x-ray reviewed IV catheter tip in stable SVC position Description of Procedure: As above
--- NOTE | 2024-04-08 12:49 | XR ---
EXAMINATION TYPE: XR chest 1V confirm line [facility] DATE OF EXAM: 04/08/2024 COMPARISON: 04/07/2024 CLINICAL INDICATION: Female, 58 years old with history of central line placement; TECHNIQUE: Single frontal view of the chest is obtained. FINDINGS: There is been interval insertion of a right jugular central venous catheter the tip of which is in th e SVC/RA junction. There is a single-lead cardiac pacemaker unchanged in position. There is a prosthetic aortic valve. T here is a loop recorder. The heart is enlarged but the pulmonary vasculature is not congested. There is no airspace consolidat ion. There is no pleural effusion or pneumothorax. IMPRESSION: 1. Right jugular central venous catheter tip in the SVC/RA junction. No pneumothorax. 2. Persistent moderate cardiomegaly without overt CHF. 3. No acute cardiopulmonary disease. [facility], , 04/08/2024 12:47 PM
[2024-04-08] MEDS: FUROSEMIDE 10 MG/ML 4 ML VIAL IV SCH (12:55)
[2024-04-08] MEDS: methylPREDNISolone SOD SUCCI 40 MG/ML 1 ML VIAL IV SCH (12:56)
[2024-04-08] MEDS: CEFEPIME 1 GM in SODIUM CHLORIDE 0.9% 50 ML IVPB SCH (13:18)
[2024-04-09 10:14] LABS: Basophils # (M) 0.04 X 10*3/uL (0.00-0.10); Eosinophils # (M) 0.08 X 10*3/uL (0.04-0.35); HCT 28.1 % (37.2-46.3); HGB 11.6 g/dL (12.0-15.0); Lymphocytes # (M) 1.36 X 10*3/uL (0.90-5.00); MCH 36.5 pg (27.0-32.0); MCHC 41.3 g/dL (32.0-37.0); MCV 88.4 FL (80.0-97.0); Monocytes # (M) 0 X 10*3/uL (0.20-1.00); Neutrophils # (M) 2.31 X 10*3/uL (1.80-7.70); Neutrophils % (M) 61 %; Platelet Count 124 X 10*3/uL (140-440); RBC 3.18 X 10*6/uL (4.10-5.20); RDW 27.6 % (11.5-14.5); WBC 3.78 X 10*3/uL (4.50-10.00)
--- NOTE | 2024-04-09 12:09 | P.CNPUL ---
History of Present Illness Consult date: 04/09/24 Reason for consult: dyspnea, cough, hypoxemia, pneumonia Chief complaint: Cough shortness of breath History of present illness: Patient seen evaluate examined, consult requested by primary service for aspiration pneumonia and further evaluation, review of data revealed that patient is 58-year-old male morbidly obese came into the hospital with episode of seizure while in dentist office. Patient has a prior history of seizures with association with electrolyte imbalance hypokalemia, on arrival patient was confused appeared to be in postictal status awake only provide her name. However today she is more alert and awake however slow to respond still. Patient has been having vomiting and emesis for last few days. On arrival EKG was low QRS voltage sinus rhythm rate of 70. CT scan of the head no acute changes identified her CBC hemoglobin is 11.6 down from 13.9 yesterday sodium 134 potassium 2.5 now up to 140/4.0 CO2 improved to 26 from 35 chloride improved to 103 from 91 BUN/creatinine 52/1.36 yesterday on arrival now 30.9/1.1. Inflammatory parameters including procalcitonin is 0.08 TSH and free T3 were T4 within normal limit, cortisol level 6.3. Patient is back on Lipitor Eliquis antidepressant vitamin D supplement Florinef is 0.1 daily Neurontin metoprolol as well as midodrine patient has been on potassium supplements as well with gentle rehydration oxygen saturation 91% hemodynamic status stable and afebrile. Patient however complained of sore throat and pulmonary congestion and wondering about flu as well as COVID-19 infection. Noted that x-ray is not done. Of note that patient has been getting right knee steroid injection almost 2 to 4 weeks entire, labs from yesterday reviewed CBC within normal limit white cell count 6.1, chemistry reviewed potassium is 5 BUN/creatinine is 23/1.1 continue to improve, mag and Phos fairly within normal limit. Viral panel influenza A as well as influenza B negative so as COVID. Chest x-ray shows focal pneumonia in the right upper lobe versus chemical pneumonitis. Currently patient is on direct acting oral anticoagulants along with high intensity statin with Zithromax 500 mg daily and continuation of home medications. Oxygen saturation 93% on room air patient placed on 3 L nasal cannula for symptomatic improvement. No dynamics including blood pressure fairly within normal limits. Will obtain follow-up chest x-ray for progression of disease in the lungs. Penicillin and derivative with clindamycin cannot be added due to history of allergy however patient has cefepime before and able to tolerated with some GI upset, will add cefepime with Flagyl and continue azithromycin. Of note that ultrasound unable to get IV access patient is without IV underwent placement of right internal jugular triple-lumen central line, currently patient remains on direct acting oral anticoagulant along with broad-spectrum antibiotics with Zithromax and cefepime, have been tolerating well, patient has been on diuresis with Bumex extra dose of Lasix has been given for fluid overload. Labs from today reviewed WBC count hemoglobin hematocrit and platelet count reviewed slightly decreased platelet count of 124 Her prior medical history significant for adrenal insufficiency with multiple levels of cortisol level normal low or low, dyslipidemia, major depression, [place], PE, chronic kidney disease, seizure disorder, antiphospholipid antibody sy ndrome, chronic kidney disease stage III, chronic migraine headaches, cervical disc disease, lumbar disc disease, vertigo, lupus, history of heart valve surgery exact details not available. Patient has a pacemaker as well. Patient has been taking her medications but apparently ran out of them not exactly sure which one she was out. But review of the old records revealed that in addition to statins antidepressant patient is on Eliquis 5 mg 2 times a day Bumex 2 mg daily metoprolol, Requip for restless leg syndrome as well as Neurontin 604 times a day and midodrine 5 mg 3 times a day and potassium supplements. She has been complaining as well as more snoring and apneic events than baseline in last several months with weight gain, patient will benefit from sleep study as outpatient Review of Systems All systems: negative Past Medical History Past Medical History: Blood Disorder, Myocardial Infarction ([place]), Pulmonary Embolus (PE), Renal Disease, Seizure Disorder Additional Past Medical History / Comment(s): Antiphospholipid antibody syndrome which causes clots and bleeding, multiple PEs, R renal artery embolism/now atrophic, CKD stage III, hypotension, hypokalemia especially w/stress, lupus, pyoderm grangrenosum, 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 Patient states past history of C-Diff from 03/2023. Last Myocardial Infarction Date:: 08/30/2018 History of Any Multi-Drug Resistant Organisms: None Reported Date of last positivie culture/infection: 03/02/23 MDRO Source:: Stool Past Surgical History: Back Surgery, Breast Surgery, Cardiac Valve Replacement, Section, Cholecystectomy, Heart Catheterization, Hysterectomy, P acemaker Additional Past Surgical History / Comment(s): pacemaker d/t misty cardia/hypotension with last one place in 2013 in [place], [place], 3 lower back surgeries, bilateral breast reduction. 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. lamenectomy Past Anesthesia/Blood Transfusion Reactions: No Reported Reaction Additional Past Anesthesia/Blood Transfusion Reaction / Comment(s): blood transfusion no issues Type of Cardiac Device: Permanent Pacemaker, Unknown Device Placement Date:: 2012 Past Psychological History: Anxiety, PTSD Smoking Status: Never smoker Past Alcohol Use History: Rare Past Drug Use History: Marijuana - Past Family History Mother Additional Family Medical History / Comment(s): Mother at the age of 49 yrs after surgery for silicon breast implants with a leak that caused ARDS and DIC per pt (fibroid cysts) Father Family Medical History: Cancer, Hyperlipidemia, Hypertension Additional Family Medical History / Comment(s): Father is a colon cancer survivor. Medications and Allergies Home Medications Medication Instructions Recorded Confirmed Type Atorvastatin [Lipitor] 40 mg PO HS 09/24/21 04/06/24 History Sertraline [Zoloft] 200 mg PO DAILY 09/24/21 04/06/24 History Apixaban [Eliquis] 5 mg PO BID 05/29/22 04/06/24 History busPIRone HCl [Buspar] 5 mg PO BID 06/11/22 04/06/24 History Bumetanide [BUMEX] 2 mg PO DAILY 06/24/22 04/06/24 History Fludrocortisone [Florinef] 0.1 mg PO DAILY 09/20/22 04/06/24 History Metoprolol Succinate (ER) [Toprol 50 mg PO DAILY 02/16/23 04/06/24 History XL] rOPINIRole HCL [Requip] 2 mg PO HS 04/28/23 04/06/24 History Bumetanide [BUMEX] 1 mg PO HS 08/12/23 04/06/24 History Diphenhydramine 50mg Injection 50 mg IM Q6H PRN 08/12/23 04/06/24 History Ipratropium Nebulized [Atrovent 0.5 mg INHALATION RT-QID PRN 08/12/23 04/06/24 History Nebulized 0.2 MG/ML] Spironolactone [Aldactone] 50 mg PO HS 08/12/23 04/06/24 History metOLazone [Zaroxolyn] 5 mg PO DAILY PRN 08/12/23 04/06/24 History Budesonide/Glycopyr/Formoterol 2 puff INHALATION RT-BID 12/26/23 04/06/24 History [Breztri Aerosphere Inhaler] Cyclobenzaprine [Flexeril] 5 mg PO TID@,,12/26/23 04/06/24 History Diclofenac Sodium [Voltaren 2 - 4 gm TOPICAL TID PRN 12/26/23 04/06/24 History Arthritis Pain 1% Gel] Gabapentin 600 mg PO QID@,,,12/26/23 04/06/24 History Midodrine [ProAmatine] 5 mg PO TID PRN 12/26/23 04/06/24 History Ondansetron [Zofran] 4 mg PO TID PRN 12/26/23 04/06/24 History Vitamin B-6(Unknown) 1 tab PO DAILY 12/26/23 04/06/24 History Vitamin D3(Unknown) 1 tab PO DAILY 12/26/23 04/06/24 History Magnesium Oxide [Mag-Ox] 400 mg PO DAILY 90 Days #90 tab 12/31/23 04/06/24 Rx Azithromycin [Zithromax] 500 mg PO DAILY 04/06/24 04/06/24 History HYDROcodone/APAP 7.5-325MG [[place] 1 tab PO TID 04/06/24 04/06/24 History 7.5-325] Potassium Chloride ER [K-Dur 20] 20 meq PO DAILY 04/06/24 04/06/24 History Allergies Allergy/AdvReac Type Severity Reaction Status Date / Time Penicillins Allergy Severe Anaphylaxis Verified 04/06/24 13:28 vancomycin Allergy Severe Swelling Verified 04/06/24 13:28 in lips cefepime Allergy Swelling Verified 04/06/24 13:28 clindamycin Allergy Anaphylaxis Verified 04/06/24 13:28 Influenza Virus Vaccines Allergy Anaphylaxis Verified 04/06/24 13:28 latex Allergy Itching Verified 04/06/24 13:28 and swelling morphine Allergy Anaphylaxis Verified 04/06/24 13:28 albuterol [From Ventolin HFA] AdvReac Rapid Verified 04/06/24 13:28 Heart Rate dexamethasone [From Decadron] AdvReac severe Verified 04/06/24 13:28 pain, like needles in groin [id number] AdvReac Confusion, Verified 04/06/24 13:28 [From Emgality Pen] increased blood pressure metoclopramide [From Reglan] AdvReac "felt like Verified 04/06/24 13:28 I needed to jump out of my skin" prochlorperazine AdvReac severe Verified 04/06/24 13:28 [From Compazine] anxiety Physical Exam Vitals: Vital Signs Temp Pulse Pulse Resp BP Pulse Ox 04/09/24 08:42 88 04/09/24 08:31 82 04/09/24 07:27 98.6 F 73 16 101/70 92 L 04/09/24 01:23 98.1 F 75 17 142/89 95 04/08/24 21:11 75 17 04/08/24 20:25 84 04/08/24 20:15 73 04/08/24 19:58 97.4 F L 70 17 109/65 100 04/08/24 12:53 98.8 F 71 20 139/79 96 Intake and Output 04/08/24 04/09/24 04/09/24 22:59 06:59 14:59 Other: # Voids 1 2 1 # Bowel Movements 1 - Exam - Constitutional General appearance: Present: disheveled, morbidly obese, patient visibly more short of breath on supplemental oxygen - EENT Eyes: Present: EOMI, PERRLA ENT: Present: normal oropharynx Ears: bilateral: normal - Neck Carotids: bilateral: upstroke normal Thyroid: negative: normal size - Respiratory Respiratory: bilateral: Bibasilar crackles less than one third of the lung - Cardiovascular Rhythm: regular Heart sounds: normal: S1, S2 - Gastrointestinal General gastrointestinal: Present: normal bowel sounds, soft - Integumentary Integumentary: Present: normal turgor - Neurologic Neurologic: Present: CNII-XII intact - Musculoskeletal Musculoskeletal: Present: gait normal, generalized weakness, strength equal bilaterally - Psychiatric Psychiatric: Present: A&O x's 3, appropriate affect, intact judgment & insight Results - Laboratory Findings CBC and BMP: 04/09/24 03:53 04/08/24 06:16 Abnormal lab findings: Abnormal Labs 04/06/24 04/06/24 04/06/24 12:30 12:30 21:45 WBC RBC Hgb Hct MCH MCHC RDW Plt Count Lymphocytes # 0.6 L Monocytes # (Manual) NRBC/100 WBC Diff Sodium 134 L Potassium 2.5 L* Chloride 91 L Carbon Dioxide 35 H Anion Gap BUN 52 H Creatinine 1.36 H Est GFR (CKD-EPI) BUN/Creatinine Ratio Glucose 142 H Calcium Phosphorus Total Bilirubin Total Protein Albumin Ur Leukocyte Esterase Trace H Urine Mucus Rare H Urine Opiates Screen Detected H U Tricyclic Antidepress Detected H 04/07/24 04/07/24 04/08/24 05:24 05:24 06:16 WBC RBC 3.95 L Hgb 11.6 L 11.8 L Hct 36.2 L MCH MCHC 31.6 L RDW 14.6 H Plt Count Lymphocytes # 0.70 L 0.89 L Monocytes # (Manual) NRBC/100 WBC Diff Sodium Potassium Chloride Carbon Dioxide Anion Gap BUN 30.9 H Creatinine Est GFR (CKD-EPI) 58 L BUN/Creatinine Ratio 28.09 H Glucose Calcium 8.0 L Phosphorus Total Bilirubin <0.2 L Total Protein 5.5 L Albumin 3.7 L Ur Leukocyte Esterase Urine Mucus Urine Opiates Screen U Tricyclic Antidepress 04/08/24 04/09/24 06:16 03:53 WBC 3.78 L RBC 3.18 L Hgb 11.6 L Hct 28.1 L MCH 36.5 H MCHC 41.3 H RDW 27.6 H Plt Count 124 L Lymphocytes # Monocytes # (Manual) 0 L NRBC/100 WBC Diff 0.30 H Sodium Potassium Chloride Carbon Dioxide Anion Gap 12.40 H BUN Creatinine Est GFR (CKD-EPI) 58 L BUN/Creatinine Ratio 21.09 H Glucose Calcium 8.6 L Phosphorus 2.1 L Total Bilirubin <0.2 L Total Protein 6.0 L Albumin Ur Leukocyte Esterase Urine Mucus Urine Opiates Screen U Tricyclic Antidepress - Diagnostic Findings Chest x-ray: report reviewed, image reviewed CT scan - chest: report reviewed, image reviewed Assessment and Plan Assessment: Right upper lobe aspiration pneumonia and cefepime and Flagyl as per discussion with patient, will add Flagyl as well Status post Central line due to lack of IV access Pseudoseizure, recovered with history of electrolyte imbalance Severe hyponatremia and hypokalemia Adrenal insufficiency Sore throat ongoing cough and congestion evaluate for acute bronchitis History of antiphospholipid antibody syndrome History of pulmonary embolism Dyslipidemia Hypertension hypertensive cardiovascular disease Acute on chronic kidney disease Prior history of C. difficile Plan: Continue cefepime and Flagyl, status post central line, and trial of steroids Continue Zithromax 500 mg daily Reviewed results of yesterday chest x-ray as well as swabs for COVID and influenza Continue gentle diuresis and monitoring of electrolytes Follow closely on home medications Time with Patient: Greater than 30
[2024-04-09] MEDS: metroNIDAZOLE-NS PMX 500 MG in SALINE 1 100ML.BAG IVPB SCH (16:28)
[2024-04-09 17:28] LABS: ALT 25 U/L (4-34); AST 29 U/L (14-36); African American GFR (CKD) 61 (>60 ml/min/1.73 sqM); Albumin 3.8 g/dL (3.5-5.0); Albumin/Globulin Ratio 1.7; Alkaline Phosphatase 56 U/L (38-126); Anion Gap 5 mmol/L; Blood Urea Nitrogen 28 mg/dL (7-17); Calcium 8.4 mg/dL (8.4-10.2); Carbon Dioxide 31 mmol/L (22-30); Chloride 101 mmol/L (98-107); Globulin 2.3 g/dL; Glucose 207 mg/dL (74-99); Non-African American GFR(CKD) 53 (>60 ml/min/1.73 sqM); Potassium 4.1 mmol/L (3.5-5.1); Sodium 137 mmol/L (137-145); Total Bilirubin 0.3 mg/dL (0.2-1.3); Total Protein 6.1 g/dL (6.3-8.2)
--- NOTE | 2024-04-10 02:07 | PN ---
PROGRESS NOTE SUBJECTIVE: Dania Meza came in with diastolic CHF, pneumonia secondary to aspiration due to broad- spectrum antibiotics per Infectious Disease, Pulmonary. She has pancytopenia most likely secondary to pneumonia. CO2 is 31, sodium 137, potassium 4.1. OBJECTIVE: CARDIOVASCULAR: S1, S2. LUNGS: Decreased breath sounds x4. Scattered rhonchi. HEMATOLOGY: Negative Homans. EXTREMITIES: 3+ edema bilaterally. ASSESSMENT: Restless legs syndrome, chronic kidney disease stage 3, chronic migraines, antiphospholipid syndrome, chronic atrial fibrillation, pancytopenia, right upper lobe aspiration pneumonia. Cefepime and Flagyl. Continue with current antibiotics. Monitor potassium levels. Prognosis guarded. Diuresis as needed. Continue breathing treatments with oxygen. MMODL / IJN: [id number] /
[2024-04-10 09:31] LABS: ALT 25 U/L (8-44); AST 23 U/L (13-35); Albumin 3.9 g/dL (3.8-4.9); Albumin/Globulin Ratio 1.86 Ratio (1.60-3.17); Alkaline Phosphatase 53 U/L (41-126); BUN/Creat Ratio 24.45 Ratio (12.00-20.00); Blood Urea Nitrogen 26.9 mg/dL (9.0-27.0); Calcium 8.7 mg/dL (8.7-10.3); Carbon Dioxide 27.5 mmol/L (21.6-31.8); Chloride 102 mmol/L (96-109); Globulin 2.1 g/dL (1.6-3.3); Glucose 139 mg/dL (70-110); Potassium 4.6 mmol/L (3.5-5.5); Sodium 141 mmol/L (135-145); Total Bilirubin <0.2 mg/dL (0.3-1.2)
[2024-04-10 09:35] LABS: HCT 37.1 % (37.2-46.3); HGB 11.7 g/dL (12.0-15.0); MCH 29.5 pg (27.0-32.0); MCHC 31.5 g/dL (32.0-37.0); MCV 93.5 FL (80.0-97.0); Mean Platelet Volume 11.2 FL (9.5-12.2); Platelet Count 172 X 10*3/uL (140-440); RBC 3.97 X 10*6/uL (4.10-5.20); RDW 14.6 % (11.5-14.5); WBC 6.23 X 10*3/uL (4.50-10.00)
[2024-04-10 09:36] LABS: Basophils # (A) 0.01 X 10*3/uL (0.00-0.10); Basophils % (A) 0.2 %; Eosinophils # (A) 0.01 X 10*3/uL (0.04-0.35); Eosinophils % (A) 0.2 %; Lymphocytes # (A) 0.57 X 10*3/uL (0.90-5.00); Lymphocytes % (A) 9.1 %; Monocytes # (A) 0.16 X 10*3/uL (0.20-1.00); Monocytes % (A) 2.6 %; NRBC Per 100 WBC 0 X 10*3/uL (0.00-0.01); Neutrophils # (A) 5.44 X 10*3/uL (1.80-7.70); Neutrophils % (A) 87.3 %
--- NOTE | 2024-04-10 10:20 | P.PN ---
Subjective Progress Note Date: 04/10/24 Principal diagnosis: Chest pain predominantly in the center of the chest with intermittent shortness of breath Aspiration pneumonia versus chemical pneumonitis Pseudoseizure, recovered with history of electrolyte imbalance Severe hyponatremia and hypokalemia Adrenal insufficiency Sore throat ongoing cough and congestion evaluate for acute bronchitis History of antiphospholipid antibody syndrome History of pulmonary embolism Dyslipidemia Hypertension hypertensive cardiovascular disease Acute on chronic kidney disease Prior history of C. difficile April 10, 2024, patient seen eval examined during rounds labs reviewed medications reviewed patient has a transient short-lived seizure yesterday and then again today per RN there is some association with Dilaudid is present as it occurred both times post Dilaudid. However did not occur in the evening or afternoon doses. Patient refused to see neurologist. Currently patient is awake and alert well composed she describes independent episodes of retrosternal chest pain, EKG as well as troponin are within normal limit, patient sees Dr. Hanson for heart related issues and problem will consult them also obtain echocardiogram. EKG this morning left atrial enlargement with normal sinus rhythm patient remains on [place], Eliquis, high intensity statins, diuretics with Bumex as well as furosemide, patient has been tolerating cefepime fairly well without any complications or issues along with Flagyl her hemodynamic status stable with Florinef, she is on IV Solu-Medrol as well along with potassium supplements as needed labs from today reviewed chemistry fairly within normal limit with potassium level of 4.6, BUN/creatinine is 26/1.1 overall stable, LFTs within normal limit troponin less than 0.012, previous chest x-ray reviewed and compared with the prior x-ray cardiomegaly seen stable central line, infiltrates not seen as noted previously, would recommend 5 to 7 days of antibiotic therapy Patient seen evaluate examined, consult requested by primary service for aspiration pneumonia and further evaluation, review of data revealed that patient is 58-year-old male morbidly obese came into the hospital with episode of seizure while in dentist office. Patient has a prior history of seizures with association with electrolyte imbalance hypokalemia, on arrival patient was confused appeared to be in postictal status awake only provide her name. However today she is more alert and awake however slow to respond still. Patient has been having vomiting and emesis for last few days. On arrival EKG was low QRS voltage sinus rhythm rate of 70. CT scan of the head no acute changes identified her CBC hemoglobin is 11.6 down from 13.9 yesterday sodium 134 potassium 2.5 now up to 140/4.0 CO2 improved to 26 from 35 chloride improved to 103 from 91 BUN/creatinine 52/1.36 yesterday on arrival now 30.9/1.1. Inflammatory parameters including procalcitonin is 0.08 TSH and free T3 were T4 within normal limit, cortisol level 6.3. Patient is back on Lipitor Eliquis antidepressant vitamin D supplement Florinef is 0.1 daily Neurontin metoprolol as well as midodrine patient has been on potassium supplements as well with gentle rehydration oxygen saturation 91% hemodynamic status stable and afebrile. Patient however complained of sore throat and pulmonary congestion and wondering about flu as well as COVID-19 infection. Noted that x-ray is not done. Of note that patient has been getting right knee steroid injection almost 2 to 4 weeks entire, labs from yesterday reviewed CBC within normal limit white cell count 6.1, chemistry reviewed potassium is 5 BUN/creatinine is 23/1.1 continue to improve, mag and Phos fairly within normal limit. Viral panel influenza A as well as influenza B negative so as COVID. Chest x-ray shows focal pneumonia in the right upper lobe versus chemical pneumonitis. Currently patient is on direct acting oral anticoagulants along with high intensity statin with Zithromax 500 mg daily and continuation of home medications. Oxygen saturation 93% on room air patient placed on 3 L nasal cannula for symptomatic improvement. No dynamics including blood pressure fairly within normal limits. Will obtain follow-up chest x-ray for progression of disease in the lungs. Penicillin and derivative with clindamycin cannot be added due to history of allergy however patient has cefepime before and able to tolerated with some GI upset, will add cefepime with Flagyl and continue azithromycin. Of note that ultrasound unable to get IV access patient is without IV underwent placement of right internal jugular triple-lumen central line, currently patient remains on direct acting oral anticoagulant along with broad-spectrum antibiotics with Zithromax and cefepime, have been tolerating well, patient has been on diuresis with Bumex extra dose of Lasix has been given for fluid overload. Labs from today reviewed WBC count hemoglobin hematocrit and platelet count reviewed slightly decreased platelet count of 124 Her prior medical history significant for adrenal insufficiency with multiple levels of cortisol level normal low or low, dyslipidemia, major depression, OR, PE, chronic kidney disease, seizure disorder, antiphospholipid antibody syndrome, chronic kidney disease stage III, chronic migraine headaches, cervical disc disease, lumbar disc disease, vertigo, lupus, history of heart valve surgery exact details not available. Patient has a pacemaker as well. Patient has been taking her medications but apparently ran out of them not exactly sure which one she was out. But review of the old records revealed that in addition to statins antidepressant patient is on Eliquis 5 mg 2 times a day Bumex 2 mg daily metoprolol, Requip for restless leg syndrome as well as Neurontin 604 times a day and midodrine 5 mg 3 times a day and potassium supplements. She has been complaining as well as more snoring and apneic events than baseline in last several months with weight gain, patient will benefit from sleep study as outpatient Objective - Vital Signs Vital signs: Vital Signs Temp 98.5 F 04/10/24 06:44 Pulse 85 04/10/24 09:18 Resp 18 04/10/24 06:44 BP 91/59 04/10/24 06:44 Pulse Ox 91 L 04/10/24 06:44 FiO2 Intake & Output 04/09/24 04/10/24 04/10/24 18:59 06:59 18:59 Other: # Voids 3 - Exam - Constitutional General appearance: Present: disheveled, morbidly obese, patient visibly more short of breath on supplemental oxygen - EENT Eyes: Present: EOMI, PERRLA ENT: Present: normal oropharynx Ears: bilateral: normal - Neck Carotids: bilateral: upstroke normal Thyroid: negative: normal size - Respiratory Respiratory: bilateral: CTA - Cardiovascular Rhythm: regular Heart sounds: normal: S1, S2 - Gastrointestinal General gastrointestinal: Present: normal bowel sounds, soft - Integumentary Integumentary: Present: normal turgor - Neurologic Neurologic: Present: CNII-XII intact - Musculoskeletal Musculoskeletal: Present: gait normal, generalized weakness, strength equal bilaterally - Psychiatric Psychiatric: Present: A&O x's 3, appropriate affect, intact judgment & insight - Labs CBC & Chem 7: 04/10/24 03:20 04/10/24 03:20 Labs: Abnormal Lab Results - Last 24 Hours (Table) 1204/09/24 04/10/24 Range/Units 03:53 16:42 03:20 WBC 3.78 L (4.50-10.00) X 10*3/uL RBC 3.18 L 3.97 L (4.10-5.20) X 10*6/uL Hgb 11.6 L 11.7 L (12.0-15.0) g/dL Hct 28.1 L 37.1 L (37.2-46.3) % MCH 36.5 H (27.0-32.0) pg MCHC 41.3 H 31.5 L (32.0-37.0) g/dL RDW 27.6 H 14.6 H (11.5-14.5) % Plt Count 124 L (140-440) X 10*3/uL Lymphocytes # 0.57 L (0.90-5.00) X 10*3/uL Monocytes # 0.16 L (0.20-1.00) X 10*3/uL Monocytes # (Manual) 0 L (0.20-1.00) X 10*3/uL Eosinophils # 0.01 L (0.04-0.35) X 10*3/uL NRBC/100 WBC Diff 0.30 H (0.00-0.01) X 10*3/uL Carbon Dioxide 31 H (22-30) mmol/L BUN 28 H (7-17) mg/dL Creatinine 1.14 H (0.52-1.04) mg/dL Est GFR (CKD-EPI) (>=60) BUN/Creatinine Ratio (12.00-20.00) Ratio Glucose 207 H (74-99) mg/dL Total Bilirubin (0.3-1.2) mg/dL Total Protein 6.1 L (6.3-8.2) g/dL 04/10/24 Range/Units 03:20 WBC (4.50-10.00) X 10*3/uL RBC (4.10-5.20) X 10*6/uL Hgb (12.0-15.0) g/dL Hct (37.2-46.3) % MCH (27.0-32.0) pg MCHC (32.0-37.0) g/dL RDW (11.5-14.5) % Plt Count (140-440) X 10*3/uL Lymphocytes # (0.90-5.00) X 10*3/uL Monocytes # (0.20-1.00) X 10*3/uL Monocytes # (Manual) (0.20-1.00) X 10*3/uL Eosinophils # (0.04-0.35) X 10*3/uL NRBC/100 WBC Diff (0.00-0.01) X 10*3/uL Carbon Dioxide (22-30) mmol/L BUN (7-17) mg/dL Creatinine (0.52-1.04) mg/dL Est GFR (CKD-EPI) 58 L (>=60) BUN/Creatinine Ratio 24.45 H (12.00-20.00) Ratio Glucose 139 H (74-99) mg/dL Total Bilirubin <0.2 L (0.3-1.2) mg/dL Total Protein 6.0 L (6.3-8.2) g/dL Assessment and Plan Assessment: Substernal chest pain with normal troponin patient is on Eliquis as well, will consult cardiovascular services as well as obtain echocardiogram Right upper lobe aspiration pneumonia and cefepime and Flagyl, tolerating well. Last chest x-ray failed to reveal significant infiltrate prior infiltrate improved, will do 5 days of IV antibiotics and then stop Status post Central line due to lack of IV access Pseudoseizure, recovered with history of electrolyte imbalance, still occurring some association with Dilaudid as per staff, will defer pain management to p rimary service and neurology Severe hyponatremia and hypokalemia resolved Adrenal insufficiency, Sore throat ongoing cough and congestion evaluate for acute bronchitis History of antiphospholipid antibody syndrome History of pulmonary embolism Dyslipidemia Hypertension hypertensive cardiovascular disease Acute on chronic kidney disease Prior history of C. difficile Plan: Continue cefepime and Flagyl, 5 days, status post central line, and trial of steroids Reviewed results of yesterday chest x-ray as well as swabs for COVID and influenza Continue gentle diuresis and monitoring of electrolytes Follow closely on home medications Time with Patient: Greater than 30
[2024-04-10] MEDS: ALBUTEROL NEBULIZED 2.5 MG/3 ML INHALATION SCH (12:11)
[2024-04-10] MEDS: diphenhydrAMINE 50 MG/ML 1 ML VIAL IVP PRN (16:22)
[2024-04-10] MEDS: BUDESONIDE 0.5 MG/2 ML NEBU INHALATION SCH (20:11)
--- NOTE | 2024-04-10 22:37 | XR ---
EXAMINATION TYPE: XR chest 1V portable DATE OF EXAM: 04/10/2024 CLINICAL HISTORY: Difficulty breathing progress study. Aspiration. TECHNIQUE: Single AP portable upright view of the chest is obtained. COMPARISON: Chest x-ray from 2 days earlier FINDINGS: Stable right internal jugular central venous catheter. Persistent mild cardiomegaly with si ngle view pacemaker and overlying loop recorder and cardiac valve surgical change. Tiny right pleural effusion and/or pleural thickening redemonstrated. Mild chronic parenchymal changes bilaterally rede monstrated. No new focal airspace opacity or pneumothorax seen bilaterally. Osseous structures remain demineralized. IMPRESSION: Chronic changes and mild cardiomegaly without acute pulmonary process. No significant c hange from most recent prior. [facility], , 04/10/2024 10:35 PM
[2024-04-11 07:53] LABS: Glucose,Whole Blood 187 mg/dL (70-110)
[2024-04-11] MEDS: HYDROmorphone 0.5 MG/0.5 ML SYRINGE IVP STA (09:36)
[2024-04-11] MEDS: METOPROLOL TARTRATE 50 MG TAB PO SCH (09:52)
[2024-04-11 10:04] LABS: ALT 23 U/L (4-34); AST 23 U/L (14-36); African American GFR (CKD) 57 (>60 ml/min/1.73 sqM); Albumin 3.9 g/dL (3.5-5.0); Albumin/Globulin Ratio 1.9; Alkaline Phosphatase 49 U/L (38-126); Anion Gap 2 mmol/L; Blood Urea Nitrogen 27 mg/dL (7-17); Calcium 9.1 mg/dL (8.4-10.2); Carbon Dioxide 34 mmol/L (22-30); Chloride 104 mmol/L (98-107); Globulin 2.1 g/dL; Glucose 96 mg/dL (74-99); Magnesium 2.5 mg/dL (1.6-2.3); Non-African American GFR(CKD) 49 (>60 ml/min/1.73 sqM); Potassium 4.5 mmol/L (3.5-5.1); Sodium 140 mmol/L (137-145); Total Bilirubin 0.2 mg/dL (0.2-1.3)
[2024-04-11 10:34] LABS: Basophils # (A) 0.01 X 10*3/uL (0.00-0.10); Basophils % (A) 0.2 %; Eosinophils # (A) 0.01 X 10*3/uL (0.04-0.35); Eosinophils % (A) 0.2 %; HCT 35.3 % (37.2-46.3); HGB 11.2 g/dL (12.0-15.0); Lymphocytes # (A) 0.65 X 10*3/uL (0.90-5.00); MCH 29.6 pg (27.0-32.0); MCHC 31.7 g/dL (32.0-37.0); MCV 93.4 FL (80.0-97.0); Mean Platelet Volume 10.6 FL (9.5-12.2); Monocytes # (A) 0.32 X 10*3/uL (0.20-1.00); Monocytes % (A) 4.9 %; NRBC Per 100 WBC 0 X 10*3/uL (0.00-0.01); Neutrophils # (A) 5.52 X 10*3/uL (1.80-7.70); Neutrophils % (A) 84.4 %; Platelet Count 169 X 10*3/uL (140-440); RBC 3.78 X 10*6/uL (4.10-5.20); RDW 15.1 % (11.5-14.5); WBC 6.53 X 10*3/uL (4.50-10.00)
--- NOTE | 2024-04-11 13:15 | P.CRDCN ---
History of Present Illness Consult date: 04/11/24 Consult reason: chest pain History of present illness: This is a 59-year-old female patient of Dr. Hanson with past medical history of dyslipidemia, bioprosthetic tricuspid valve, single-chamber pacemaker, history of PE on Eliquis, seizure disorder. We have been asked to evaluate the patient for chest pain. Patient presented to the hospital on 04/06 due to seizure. She has been seen by pulmonary medicine, neurology and treated for aspiration pneumonia, acute kidney injury and pseudoseizure, hyponatremia. Patient apparently was complaining of chest pain but today she is denying having any chest pain. She states that "my head feels like it is going to blow." A-Team called earlier this day as patient was having a seizure that lasted at least 20 minutes. Patient states that she has that when she has severe migraine headaches. Blood pressure 126/85, heart rate in the 70s, pulse ox 95% on 3 L nasal cannula. Patient has a safety aide at the bedside. -EKG: Paced rhythm -Chest x-ray: Focal infiltrate in the right upper lobe indicating possible pneumonia, #2 right jugular venous catheter tip in the SVC C RA junction. No pneumothorax. Persistent cardiomegaly with out overt CHF. No acute cardiopulmonary disease. #3 chronic changes and mild cardiomegaly without acute pulmonary process. -CT brain: No acute process -Laboratory studies: WBC 6.5, hemoglobin 11.3. Sodium 140, potassium 4.5, BUN 27 creatinine 1.2. Troponin negative x 1. Influenza A, influenza B, COVID-19 not detected. -Home cardiac medications: Eliquis 5 mg twice daily, atorvastatin 40 mg at bedtime, Bumex 2 mg in the morning and 1 mg in the evening, magnesium daily, Zaroxolyn 5 mg daily as needed, Toprol XL 50 mg daily, K-Dur 20 mill equivalents daily, spironolactone 50 mg at bedtime. -PORFIRIO 11/03/2022: Normal EF, mild TR, bioprosthetic tricuspid valve with normal appearance and no evidence of vegetation. -Dobutamine stress echo performed 05/31/2022 revealed normal EF, normal study, patient did have seizure at the peak of study. -Echocardiogram performed 12/28/2023 revealed EF of 55 to 60%, no mitral regurgitation, bioprosthetic aortic valve without significant gradients and no aortic regurgitation. Normally functioning bioprosthetic tricuspid valve with mean gradient of 3. Review Of Systems: At the time of my exam: CONSTITUTIONAL: Denies fever or chills. Reports headache HEENT: Denies blurred vision, vision changes, or eye pain. Denies hemoptysis CARDIOVASCULAR: Denies chest pain. Denies orthopnea. Denies PND. Denies palpitations RESPIRATORY: Denies shortness of breath. GASTROINTESTINAL: Denies abdominal pain. Denies nausea or vomiting. HEMATOLOGIC: Denies bleeding disorders. GENITOURINARY: Denies any blood in urine. SKIN: Denies puritis. Denies rash. Physical examination: Gen: This is 59-year-old female appears to be very uncomfortable due to headache VS: reviewed HEENT: Head is atraumatic, normocephalic. Pupils equal, round. Sclerae is anicteric. NECK: Supple. No JVD. LUNGS: Decreased breath sounds. No intercostal retractions. HEART: Regular rate and rhythm. Short systolic murmur at the base. ABDOMEN: Soft No tenderness. EXTREMITIES: No pedal edema. No calf tenderness. NEUROLOGICAL: Patient is awake, alert and oriented x3. Assessment: Seizure activity No reports of chest pain Severe headache Possible aspiration pneumonia History of bioprosthetic tricuspid valve Single-chamber pacemaker History of PE on Eliquis Plan: Resume patient's home cardiac medications 1 dose of IV Dilaudid 0.5 mg ordered for headache No need to repeat echocardiogram as this was done in November No further cardiac workup indicated at this time Thank you kindly for this consultation. Nurse practitioner note has been reviewed, I agree with documented findings and plan of care. Patient was seen and examined. Past Medical History Past Medical History: Blood Disorder, Myocardial Infarction (SC), Pulmonary Embolus (PE), Renal Disease, Seizure Disorder Additional Past Medical History / Comment(s): Antiphospholipid antibody syndrome which causes clots and bleeding, multiple PEs, R renal artery embolism/now atrophic, CKD stage III, hypotension, hypokalemia especially w/stress, lupus, pyoderm grangrenosum, decreased pituitary function pt states d/t clot, migra hadley, chonic cervical/back pain, herniated discs, RLS, vertigo, lupus, valve replacement x2. Patient states past history of C-Diff from 03/2023. Last Myocardial Infarction Date:: 08/30/2018 History of Any Multi-Drug Resistant Organisms: None Reported Date of last positivie culture/infection: 03/02/23 MDRO Source:: Stool Past Surgical History: Back Surgery, Breast Surgery, Cardiac Valve Replacement, Section, Cholecystectomy, Heart Catheterization, Hysterectomy, Pa karlieaker Additional Past Surgical History / Comment(s): pacemaker d/t bradyc ardia/hypotension with last one place in 2013 in [place], [place], 3 lower back surgeries, bilateral breast reduction. 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. lamenectomy Past Anesthesia/Blood Transfusion Reactions: No Reported Reaction Additional Past Anesthesia/Blood Transfusion Reaction / Comment(s): blood transfusion no issues Type of Cardiac Device: Permanent Pacemaker, Unknown Device Placement Date:: 2012 Past Psychological History: Anxiety, PTSD Smoking Status: Never smoker Past Alcohol Use History: Rare Past Drug Use History: Marijuana - Past Family History Mother Additional Family Medical History / Comment(s): Mother at the age of 49 yrs after surgery for silicon breast implants with a leak that caused ARDS and DIC per pt (fibroid cysts) Father Family Medical History: Cancer, Hyperlipidemia, Hypertension Additional Family Medical History / Comment(s): Father is a colon cancer survivor. Medications and Allergies Home Medications Medication Instructions Recorded Confirmed Type Atorvastatin [Lipitor] 40 mg PO HS 09/24/21 04/06/24 History Sertraline [Zoloft] 200 mg PO DAILY 09/24/21 04/06/24 History Apixaban [Eliquis] 5 mg PO BID 05/29/22 04/06/24 History busPIRone HCl [Buspar] 5 mg PO BID 06/11/22 04/06/24 History Bumetanide [BUMEX] 2 mg PO DAILY 06/24/22 04/06/24 History Fludrocortisone [Florinef] 0.1 mg PO DAILY 09/20/22 04/06/24 History Metoprolol Succinate (ER) [Toprol 50 mg PO DAILY 02/16/23 04/06/24 History XL] rOPINIRole HCL [Requip] 2 mg PO HS 04/28/23 04/06/24 History Bumetanide [BUMEX] 1 mg PO HS 08/12/23 04/06/24 History Diphenhydramine 50mg Injection 50 mg IM Q6H PRN 08/12/23 04/06/24 History Ipratropium Nebulized [Atrovent 0.5 mg INHALATION RT-QID PRN 08/12/23 04/06/24 History Nebulized 0.2 MG/ML] Spironolactone [Aldactone] 50 mg PO HS 08/12/23 04/06/24 History metOLazone [Zaroxolyn] 5 mg PO DAILY PRN 08/12/23 04/06/24 History Budesonide/Glycopyr/Formoterol 2 puff INHALATION RT-BID 12/26/23 04/06/24 History [Breztri Aerosphere Inhaler] Cyclobenzaprine [Flexeril] 5 mg PO TID@,,17 12/26/23 04/06/24 History Diclofenac Sodium [Voltaren 2 - 4 gm TOPICAL TID PRN 12/26/23 04/06/24 History Arthritis Pain 1% Gel] Gabapentin 600 mg PO QID@,,,12/26/23 04/06/24 History Midodrine [ProAmatine] 5 mg PO TID PRN 12/26/23 04/06/24 History Ondansetron [Zofran] 4 mg PO TID PRN 12/26/23 04/06/24 History Vitamin B-6(Unknown) 1 tab PO DAILY 12/26/23 04/06/24 History Vitamin D3(Unknown) 1 tab PO DAILY 12/26/23 04/06/24 History Magnesium Oxide [Mag-Ox] 400 mg PO DAILY 90 Days #90 tab 12/31/23 04/06/24 Rx Azithromycin [Zithromax] 500 mg PO DAILY 04/06/24 04/06/24 History HYDROcodone/APAP 7.5-325MG [[place] 1 tab PO TID 04/06/24 04/06/24 History 7.5-325] Potassium Chloride ER [K-Dur 20] 20 meq PO DAILY 04/06/24 04/06/24 History Allergies Allergy/AdvReac Type Severity Reaction Status Date / Time Penicillins Allergy Severe Anaphylaxis Verified 04/06/24 13:28 vancomycin Allergy Severe Swelling Verified 04/06/24 13:28 in lips cefepime Allergy Swelling Verified 04/06/24 13:28 clindamycin Allergy Anaphylaxis Verified 04/06/24 13:28 Influenza Virus Vaccines Allergy Anaphylaxis Verified 04/06/24 13:28 latex Allergy Itching Verified 04/06/24 13:28 and swelling morphine Allergy Anaphylaxis Verified 04/06/24 13:28 albuterol [From Ventolin HFA] AdvReac Rapid Verified 04/06/24 13:28 Heart Rate dexamethasone [From Decadron] AdvReac severe Verified 04/06/24 13:28 pain, like needles in groin [id number] AdvReac Confusion, Verified 04/06/24 13:28 [From Emgality Pen] increased blood pressure metoclopramide [From Reglan] AdvReac "felt like Verified 04/06/24 13:28 I needed to jump out of my skin" prochlorperazine AdvReac severe Verified 04/06/24 13:28 [From Compazine] anxiety Physical Exam Vitals: Vital Signs Temp Pulse Pulse Resp BP Pulse Ox 04/11/24 08:38 93 L 04/11/24 07:55 71 17 126/85 95 04/11/24 01:29 98.6 F 73 18 126/80 96 04/10/24 22:25 16 04/10/24 20:55 16 04/10/24 20:23 76 04/10/24 20:13 99 04/10/24 20:11 72 04/10/24 19:25 97.3 F L 70 17 106/67 97 04/10/24 15:26 99.2 F 78 17 113/73 93 L 04/10/24 12:21 82 04/10/24 12:11 77 Intake and Output 04/10/24 04/11/24 04/11/24 22:59 06:59 14:59 Other: # Voids 3 Results 04/11/24 07:53 04/11/24 07:53 Cardiac Enzymes 04/10/24 04/10/24 Range/Units 03:20 09:20 AST 23 (13-35) U/L Troponin I <0.012 (0.000-0.034) ng/mL CBC 04/10/24 Range/Units 03:20 WBC 6.23 (4.50-10.00) X 10*3/uL RBC 3.97 L (4.10-5.20) X 10*6/uL Hgb 11.7 L (12.0-15.0) g/dL Hct 37.1 L (37.2-46.3) % Plt Count 172 (140-440) X 10*3/uL Comprehensive Metabolic Panel 04/10/24 Range/Units 03:20 Sodium 141 (135-145) mmol/L Potassium 4.6 (3.5-5.5) mmol/L Chloride 102 (96-109) mmol/L Carbon Dioxide 27.5 (21.6-31.8) mmol/L BUN 26.9 (9.0-27.0) mg/dL Creatinine 1.1 (0.6-1.5) mg/dL Glucose 139 H (70-110) mg/dL Calcium 8.7 (8.7-10.3) mg/dL AST 23 (13-35) U/L ALT 25 (8-44) U/L Alkaline Phosphatase 53 (41-126) U/L Total Protein 6.0 L (6.2-8.2) g/dL Albumin 3.9 (3.8-4.9) g/dL Current Medications Generic Name Dose Route Start Last Admin Trade Name Freq PRN Reason Stop Dose Admin Hydrocodone Bitart/Acetaminophen 1 each 04/06/24 16:00 04/10/24 22:22 Hydrocodone/Apap 7.5-325mg 1 Each Tab PO Not Given TID [facility] Albuterol Sulfate 2.5 mg 04/10/24 12:00 04/11/24 08:37 Albuterol Nebulized 2.5 Mg/3 Ml INHALATION Not Given RT-QID ASAD Apixaban 5 mg 04/06/24 21:00 04/10/24 23:58 Apixaban 5 Mg Tab PO Not Given BID [facility] Protocol Atorvastatin Calcium 40 mg 04/06/24 21:00 04/10/24 22:21 Atorvastatin 40 Mg Tab PO Not Given HS ASAD Budesonide 0.5 mg 04/10/24 20:00 04/11/24 08:37 Budesonide 0.5 Mg/2 Ml Nebu INHALATION Not Given RT-BID ASAD Bumetanide 1 mg 04/06/24 21:00 04/10/24 22:29 Bumetanide 1 Mg Tab PO Not Given HS ASAD Buspirone HCl 5 mg 04/06/24 21:00 04/10/24 22:22 Buspirone Hcl 5 Mg Tab PO Not Given BID ASAD Cholecalciferol 25 mcg 04/07/24 09:00 04/10/24 08:37 Cholecalciferol 25 Mcg (1000 Iu) Tablet PO 25 mcg DAILY ASAD Administration Diazepam 10 mg 04/11/24 07:23 04/11/24 07:41 Diazepam 5 Mg/Ml 2 Ml Inj IVP 10 mg Q4HR PRN Administration Seizures Diazepam 5 mg 04/11/24 08:00 Diazepam 5 Mg/Ml 2 Ml Inj IVP Q8HR ASAD Diphenhydramine HCl 50 mg 04/10/24 10:15 04/11/24 05:32 Diphenhydramine 50 Mg/Ml 1 Ml Vial IVP 50 mg Q6H PRN Administration Migraine/Allergies Fludrocortisone Acetate 0.1 mg 04/07/24 09:00 04/10/24 08:37 Fludrocortisone 0.1 Mg Tab PO 0.1 mg DAILY ASAD Administration Furosemide 40 mg 04/08/24 12:45 04/10/24 08:36 Furosemide 10 Mg/Ml 4 Ml Vial IV 40 mg DAILY ASAD Administration Gabapentin 600 mg 04/06/24 17:00 04/10/24 22:22 Gabapentin 300 Mg Cap PO Not Given QID@,13,17,21 ASAD Hydromorphone HCl 1 mg 04/06/24 16:33 04/11/24 05:32 Hydromorphone 1 Mg/Ml 1 Ml Syringe IVP 1 mg Q4HR PRN Administration Breakthrough Pain Potassium Chloride/Sodium Chloride 1,000 mls @ 125 mls/hr 04/06/24 14:00 04/11/24 06:36 Ns-Kcl 20 Meq/L Iv Solution IV Not Given .Q8H ASAD Cefepime HCl 1 gm/ Sodium 50 mls @ 12.5 mls/hr 04/08/24 13:00 04/11/24 01:23 Chloride IVPB 12.5 mls/hr Q12H ASAD Administration Protocol Metronidazole 500 mg/ IV 100 mls @ 100 mls/hr 04/09/24 16:00 04/10/24 23:58 Solution IVPB 100 mls/hr Q8HR ASAD Administration Protocol Ipratropium [place] 0.5 mg 04/06/24 14:34 04/10/24 09:02 Ipratropium 0.5 Mg/2.5 Ml Nebu INHALATION 0.5 mg RT-QID PRN Administration Shortness Of Breath Magnesium Oxide 400 mg 04/07/24 09:00 04/10/24 08:36 Magnesium Oxide 400 Mg Tab PO 400 mg DAILY ASAD Administration Methylprednisolone Sodium Succinate 40 mg 04/08/24 12:45 04/10/24 23:59 Methylprednisolone Sod Succi 40 Mg/Ml 1 Ml Vial IV 40 mg Q12HR ASAD Administration Metoprolol Tartrate 50 mg 04/11/24 16:00 Metoprolol Tartrate 50 Mg Tab PO TID ASAD Midodrine 5 mg 04/06/24 14:34 Midodrine 5 Mg Tab PO TID PRN Blood Pressure - Low Naloxone HCl 0.2 mg 04/06/24 13:58 Naloxone 0.4 Mg/Ml 1 Ml Vial IV Q2M PRN Opioid Reversal Ondansetron HCl 4 mg 04/06/24 14:34 04/08/24 13:27 Ondansetron 4 Mg Tab PO 4 mg TID PRN Administration Nausea Pyridoxine HCl 50 mg 04/07/24 09:00 04/10/24 08:38 Pyridoxine 50 Mg Tab PO 50 mg DAILY ASAD Administration Ropinirole HCl 2 mg 04/06/24 21:00 04/10/24 22:22 Ropinirole Hcl 1 Mg Tab PO Not Given HS ASAD Sertraline HCl 200 mg 04/07/24 09:00 04/10/24 08:37 Sertraline 100 Mg Tab PO 200 mg DAILY ASAD Administration Spironolactone 50 mg 04/06/24 21:00 04/10/24 22:29 Spironolactone 25 Mg Tab PO Not Given HS ASAD Intake and Output 04/10/24 04/11/24 04/11/24 22:59 06:59 14:59 Other: # Voids 3 04/10/24 03:20 04/10/24 03:20
[2024-04-11] MEDS: IPRATROPIUM-ALBUTEROL 3 ML NEB INHALATION SCH (16:22)
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
[2024-04-12 14:23] VITALS: BMI 27.4
[2024-04-13 13:55] LABS: Glucose,Whole Blood 214 mg/dL (70-110)
[2024-04-13] MEDS: LORazepam 2 MG/ML INJ IV PRN (14:20)
--- NOTE | 2024-04-13 15:31 | P.PN ---
Progress Note - Text Progress Note Date: 04/13/24 This is a 59-year-old woman with history of nonepileptic seizures and it seems that she is admitted during this hospital visit and she had another seizure-like episode and initially I was consulted but patient refused to be seen by me. Today it seems that the patient had a prolonged seizure-like episode was nonresponsive and, A team was called to evaluate her. Patient was given Ativan 2 mg ordered by the primary attending. She was given Valium 10 mg. Seems she continues to be unresponsive. Her vitals has been stable. Dr. Linares has asked me to evaluate the patient and upon seeing her she was having nonrhythmic shaking of bilateral upper extremity nonresponsive no facial weakness. Her episode seems nonepileptic. Stat EEG was ordered. I was called by the respiratory support technician that the patient refused the EEG. She notified the respiratory support technician that this is her nonepileptic seizure and does not want to pursue with the EEG. She is requesting Benadryl. Will defer the rest of the medical management to the primary and other specialist.
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
[2024-04-14 09:57] LABS: ALT 18 U/L (8-44); AST 14 U/L (13-35); Albumin 3.6 g/dL (3.8-4.9); Alkaline Phosphatase 47 U/L (41-126); BUN/Creat Ratio 21.77 Ratio (12.00-20.00); Blood Urea Nitrogen 28.3 mg/dL (9.0-27.0); Calcium 8.9 mg/dL (8.7-10.3); Carbon Dioxide 24.8 mmol/L (21.6-31.8); Chloride 103 mmol/L (96-109); Globulin 1.8 g/dL (1.6-3.3); Glucose 152 mg/dL (70-110); Sodium 142 mmol/L (135-145); Total Bilirubin <0.2 mg/dL (0.3-1.2); Total Protein 5.4 g/dL (6.2-8.2)
[2024-04-14 11:19] LABS: Basophils # (A) 0.01 X 10*3/uL (0.00-0.10); Basophils % (A) 0.1 %; Eosinophils # (A) 0.02 X 10*3/uL (0.04-0.35); Eosinophils % (A) 0.3 %; HCT 36.3 % (37.2-46.3); HGB 11.2 g/dL (12.0-15.0); Lymphocytes # (A) 0.46 X 10*3/uL (0.90-5.00); Lymphocytes % (A) 6.1 %; MCH 29.4 pg (27.0-32.0); MCHC 30.9 g/dL (32.0-37.0); MCV 95.3 FL (80.0-97.0); Monocytes # (A) 0.35 X 10*3/uL (0.20-1.00); Monocytes % (A) 4.6 %; NRBC Per 100 WBC 0 X 10*3/uL (0.00-0.01); Neutrophils # (A) 6.68 X 10*3/uL (1.80-7.70); Neutrophils % (A) 88.6 %; Platelet Count 206 X 10*3/uL (140-440); RBC 3.81 X 10*6/uL (4.10-5.20); RDW 15.1 % (11.5-14.5); WBC 7.54 X 10*3/uL (4.50-10.00)
[2024-04-14] MEDS: CEFEPIME 2 GM in SODIUM CHLORIDE 0.9% 100 ML IVPB SCH (12:34)
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
--- NOTE | 2024-04-15 21:01 | PN ---
PROGRESS NOTE OBJECTIVE: VITAL SIGNS: Temperature 97.5, blood pressure 144/82, O2 saturation 98% on 3 L. CARDIOVASCULAR: S1, S2. LUNGS: Transmitted upper sounds. Scattered wheeze and rhonchi. HEMATOLOGY: Negative Homans. PSYCH: Fair mood and affect. NEUROLOGIC: Alert and oriented x3. She has refused to be transferred for her pseudoseizures. She said the nurse has had given her meds. White count 7.54, hemoglobin 11.2, sodium 142, potassium 4.0, sugars are mid 100s. Magnesium is a little bit high. Total protein is 5.4. She remains on cefepime antibiotics. Wait for further recommendations from Dr. Luo on antibiotics prior to being discharged. Since her breathing is still not doing well, we will monitor over the next 24 to 48 hours. Please see further orders. MMODL / IJN: [id number] /
[2024-04-16] MEDS: LORazepam 2 MG/ML INJ IV ONE (06:33)
--- NOTE | 2024-04-16 09:31 | P.CNNES ---
History of Present Illness Consult date: 04/16/24 Reason for Consult: History of nonepileptic seizures with multiple events in house. Chief complaint: Patient was noncommunicative at time of exam. History of Present Illness: Ms. Meza is a 59-year-old female with history of documented nonepileptic seizures, myocardial infarction, pulmonary embolus, antipho spholipid antibody syndrome for which she takes Eliquis, chronic renal insufficiency stage III, migraines, cervical and lumbar disease as well as vertigo and lupus. Patient was admitted to [facility] on April 06 status post episodes of pseudo pseudoseizure. She ran out of her medications a nd was having a seizure due to stress. She also was noted to have low sodium as well as nausea and vomiting. She continued to have seizure type events in house which appeared to involve twitching of her fingers and moaning with turning of her head to the right and rigid musculature. Dr. Marko Olea was consulted on April 13; however, the patient refused to see him as well as refused an EEG. She is continue to have spells while in house and was noted to have a seizure this morning. When I entered the room the patient was twitching her extremities with rigid stiffness of her both arms and both legs. Her head was turned to the right as well as her eyes. There was no rhythmic eye movements noted and no rhythmic shaking of other parts of her body other than the tips of her fingers and flexion extension of her toes. Neurology has been consulted for further management recommendations. Review of Systems Review of systems was unobtainable secondary to patient's son noncommunicative nature at the time of exam. 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 Patient states past history of C-Diff from 03/2023. Last Myocardial Infarction Date:: 08/30/2018 History of Any Multi-Drug Resistant Organisms: None Reported Date of last positivie culture/infection: 03/02/23 MDRO Source:: Stool Past Surgical History: Back Surgery, Breast Surgery, Cardiac Valve Replacement, Section, Cholecystectomy, Heart Catheterization, Hysterectomy, Pacemaker Additional Past Surgical History / Comment(s): pacemaker d/t bradycardia/hypotension with last one place in 2013 in [place], [place], 3 lower back surgeries, bilateral breast reduction. 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. lamenectomy Past Anesthesia/Blood Transfusion Reactions: No Reported Reaction Additional Past Anesthesia/Blood Transfusion Reaction / Comment(s): blood transfusion no issues Type of Cardiac Device: Permanent Pacemaker, Unknown Device Placement Date:: 2012 Past Psychological History: Anxiety, PTSD Smoking Status: Never smoker Past Alcohol Use History: Rare Past Drug Use History: Marijuana - Past Family History Mother Additional Family Medical History / Comment(s): Mother at the age of 49 yrs after surgery for silicon breast implants with a leak that caused ARDS and DIC per pt (fibroid cysts) Father Family Medical History: Cancer, Hyperlipidemia, Hypertension Additional Family Medical History / Comment(s): Father is a colon cancer survivor. Medications and Allergies Home Medications Medication Instructions Recorded Confirmed Type Atorvastatin [Lipitor] 40 mg PO HS 09/24/21 04/06/24 History Sertraline [Zoloft] 200 mg PO DAILY 09/24/21 04/06/24 History Apixaban [Eliquis] 5 mg PO BID 05/29/22 04/06/24 History busPIRone HCl [Buspar] 5 mg PO BID 06/11/22 04/06/24 History Bumetanide [BUMEX] 2 mg PO DAILY 06/24/22 04/06/24 History Fludrocortisone [Florinef] 0.1 mg PO DAILY 09/20/22 04/06/24 History Metoprolol Succinate (ER) [Toprol 50 mg PO DAILY 02/16/23 04/06/24 History XL] rOPINIRole HCL [Requip] 2 mg PO HS 04/28/23 04/06/24 History Bumetanide [BUMEX] 1 mg PO HS 08/12/23 04/06/24 History Diphenhydramine 50mg Injection 50 mg IM Q6H PRN 08/12/23 04/06/24 History Ipratropium Nebulized [Atrovent 0.5 mg INHALATION RT-QID PRN 08/12/23 04/06/24 History Nebulized 0.2 MG/ML] Spironolactone [Aldactone] 50 mg PO HS 08/12/23 04/06/24 History metOLazone [Zaroxolyn] 5 mg PO DAILY PRN 08/12/23 04/06/24 History Budesonide/Glycopyr/Formoterol 2 puff INHALATION RT-BID 12/26/23 04/06/24 History [Breztri Aerosphere Inhaler] Cyclobenzaprine [Flexeril] 5 mg PO TID@,,17 12/26/23 04/06/24 History Diclofenac Sodium [Voltaren 2 - 4 gm TOPICAL TID PRN 12/26/23 04/06/24 History Arthritis Pain 1% Gel] Gabapentin 600 mg PO QID@,,,21 12/26/23 04/06/24 History Midodrine [ProAmatine] 5 mg PO TID PRN 12/26/23 04/06/24 History Ondansetron [Zofran] 4 mg PO TID PRN 12/26/23 04/06/24 History Vitamin B-6(Unknown) 1 tab PO DAILY 12/26/23 04/06/24 History Vitamin D3(Unknown) 1 tab PO DAILY 12/26/23 04/06/24 History Magnesium Oxide [Mag-Ox] 400 mg PO DAILY 90 Days #90 tab 12/31/23 04/06/24 Rx Azithromycin [Zithromax] 500 mg PO DAILY 04/06/24 04/06/24 History HYDROcodone/APAP 7.5-325MG [Bend 1 tab PO TID 04/06/24 04/06/24 History 7.5-325] Potassium Chloride ER [K-Dur 20] 20 meq PO DAILY 04/06/24 04/06/24 History Allergies Allergy/AdvReac Type Severity Reaction Status Date / Time Penicillins Allergy Severe Anaphylaxis Verified 04/06/24 13:28 vancomycin Allergy Severe Swelling Verified 04/06/24 13:28 in lips cefepime Allergy Swelling Verified 04/06/24 13:28 clindamycin Allergy Anaphylaxis Verified 04/06/24 13:28 Influenza Virus Vaccines Allergy Anaphylaxis Verified 04/06/24 13:28 latex Allergy Itching Verified 04/06/24 13:28 and swelling morphine Allergy Anaphylaxis Verified 04/06/24 13:28 albuterol [From Ventolin HFA] AdvReac Rapid Verified 04/06/24 13:28 Heart Rate dexamethasone [From Decadron] AdvReac severe Verified 04/06/24 13:28 pain, like needles in groin [id number] AdvReac Confusion, Verified 04/06/24 13:28 [From Emgality Pen] increased blood pressure metoclopramide [From Reglan] AdvReac "felt like Verified 04/06/24 13:28 I needed to jump out of my skin" prochlorperazine AdvReac severe Verified 04/06/24 13:28 [From Compazine] anxiety Physical Examination - Vital Signs Vital Signs: Vital Signs Temp Pulse Pulse Resp BP Pulse Ox 04/16/24 07:22 98.3 F 79 18 112/68 100 04/16/24 02:00 97.4 F L 72 15 152/92 99 04/15/24 20:00 97.5 F L 71 20 136/78 99 04/15/24 15:19 72 04/15/24 15:06 72 04/15/24 13:55 98.8 F 81 16 126/74 98 Intake and Output 04/15/24 04/16/24 04/16/24 22:59 06:59 14:59 Intake Total 200 Balance 200 Intake: Intake, IV Titration 200 Amount Cefepime 2 gm In Sodium 100 Chloride 0.9% 100 ml @ 25 mls/hr IVPB Q12H ASAD Rx# :[id number] metroNIDAZOLE-NS PMX 500 100 mg In Saline 1 100ml.bag @ 100 mls/hr IVPB Q8HR ASAD Rx#:[id number] Other: # Voids 1 Upon entering the room until I left the room approximately 10 minutes later, the patient was rigid lying diagonally in bed with extension of her arms and legs. She had twitching of her fingers and toes bilaterally. Her head was turned to the right and appeared very rigid when attempted to turn her neck. Her eyes were deviated to the right as well: However, there was no evidence of rhythmic eye movement or rhythmic flexion extension of her extremities. Reflexes could not be obtained due to patient's rigidity. I did not detect any upgoing toe bilaterally. Patient had clear breath sounds and regular rate and rhythm as well as soft abdomen which was nontender. Results CT of the brain obtained on April 06 was read as negative without evidence of hypodensity or hemorrhage. - Laboratory Findings CBC and BMP: 04/13/24 23:01 04/13/24 23:01 Abnormal Lab Findings: Abnormal Labs 04/06/24 04/06/24 04/06/24 12:30 12:30 21:45 WBC RBC Hgb Hct MCH MCHC RDW Plt Count Lymphocytes # 0.6 L Monocytes # Monocytes # (Manual) Eosinophils # NRBC/100 WBC Diff Sodium 134 L Potassium 2.5 L* Chloride 91 L Carbon Dioxide 35 H Anion Gap BUN 52 H Creatinine 1.36 H Est GFR (CKD-EPI) BUN/Creatinine Ratio Glucose 142 H POC Glucose (mg/dL) Calcium Phosphorus Magnesium Total Bilirubin Total Protein Albumin Ur Leukocyte Esterase Trace H Urine Mucus Rare H Urine Opiates Screen Detected H U Tricyclic Antidepress Detected H 04/07/24 04/07/24 04/08/24 05:24 05:24 06:16 WBC RBC 3.95 L Hgb 11.6 L 11.8 L Hct 36.2 L MCH MCHC 31.6 L RDW 14.6 H Plt Count Lymphocytes # 0.70 L 0.89 L Monocytes # Monocytes # (Manual) Eosinophils # NRBC/100 WBC Diff Sodium Potassium Chloride Carbon Dioxide Anion Gap BUN 30.9 H Creatinine Est GFR (CKD-EPI) 58 L BUN/Creatinine Ratio 28.09 H Glucose POC Glucose (mg/dL) Calcium 8.0 L Phosphorus Magnesium Total Bilirubin <0.2 L Total Protein 5.5 L Albumin 3.7 L Ur Leukocyte Esterase Urine Mucus Urine Opiates Screen U Tricyclic Antidepress 04/08/24 04/09/24 04/09/24 06:16 03:53 16:42 WBC 3.78 L RBC 3.18 L Hgb 11.6 L Hct 28.1 L MCH 36.5 H MCHC 41.3 H RDW 27.6 H Plt Count 124 L Lymphocytes # Monocytes # Monocytes # (Manual) 0 L Eosinophils # NRBC/100 WBC Diff 0.30 H Sodium Potassium Chloride Carbon Dioxide 31 H Anion Gap 12.40 H BUN 28 H Creatinine 1.14 H Est GFR (CKD-EPI) 58 L BUN/Creatinine Ratio 21.09 H Glucose 207 H POC Glucose (mg/dL) Calcium 8.6 L Phosphorus 2.1 L Magnesium Total Bilirubin <0.2 L Total Protein 6.0 L 6.1 L Albumin Ur Leukocyte Esterase Urine Mucus Urine Opiates Screen U Tricyclic Antidepress 04/10/24 04/10/24 04/11/24 03:20 03:20 07:52 WBC RBC 3.97 L Hgb 11.7 L Hct 37.1 L MCH MCHC 31.5 L RDW 14.6 H Plt Count Lymphocytes # 0.57 L Monocytes # 0.16 L Monocytes # (Manual) Eosinophils # 0.01 L NRBC/100 WBC Diff Sodium Potassium Chloride Carbon Dioxide Anion Gap BUN Creatinine Est GFR (CKD-EPI) 58 L BUN/Creatinine Ratio 24.45 H Glucose 139 H POC Glucose (mg/dL) 187 H Calcium Phosphorus Magnesium Total Bilirubin <0.2 L Total Protein 6.0 L Albumin Ur Leukocyte Esterase Urine Mucus Urine Opiates Screen U Tricyclic Antidepress 04/11/24 04/11/24 04/13/24 07:53 07:53 13:52 WBC RBC 3.78 L Hgb 11.2 L Hct 35.3 L MCH MCHC 31.7 L RDW 15.1 H Plt Count Lymphocytes # 0.65 L Monocytes # Monocytes # (Manual) Eosinophils # 0.01 L NRBC/100 WBC Diff Sodium Potassium Chloride Carbon Dioxide 34 H Anion Gap BUN 27 H Creatinine 1.20 H Est GFR (CKD-EPI) BUN/Creatinine Ratio Glucose POC Glucose (mg/dL) 214 H Calcium Phosphorus Magnesium 2.5 H Total Bilirubin Total Protein 6.0 L Albumin Ur Leukocyte Esterase Urine Mucus Urine Opiates Screen U Tricyclic Antidepress 04/13/24 04/13/24 04/13/24 23:01 23:01 23:01 WBC RBC 3.81 L Hgb 11.2 L Hct 36.3 L MCH MCHC 30.9 L RDW 15.1 H Plt Count Lymphocytes # 0.46 L Monocytes # Monocytes # (Manual) Eosinophils # 0.02 L NRBC/100 WBC Diff Sodium Potassium Chloride Carbon Dioxide Anion Gap 14.20 H BUN 28.3 H Creatinine Est GFR (CKD-EPI) 47 L BUN/Creatinine Ratio 21.77 H Glucose 152 H POC Glucose (mg/dL) Calcium Phosphorus Magnesium 2.5 H Total Bilirubin <0.2 L Total Protein 5.4 L Albumin 3.6 L Ur Leukocyte Esterase Urine Mucus Urine Opiates Screen U Tricyclic Antidepress Assessment and Plan Assessment: Ms. Meza is a 59-year-old female with history of documented pseudoseizures as well as antiphospholipid antibody syndrome. She is currently on Eliquis 5 mg twice daily. She continues to have seizure type events involving rigidity and stiffness of her upper extremities with the wiggling of her fingers and toes. And her head is deviated to the right as well as eyes today but no rhythmic movement of head or eyes is noted. I believe these events are most consistent with nonepileptic seizures; however, I will attempt to order an EEG to confirm this. Plan: 1. I have ordered a routine electroencephalogram to assess for the presence of any epileptic discharges. It is noted the patient refused electroencephalogram in the past and may do so this time. 2. I will not recommend antiepileptics at this time due to the patient's documented history of pseudoseizures unless epileptiform discharges are noted on the electroencephalogram. 3. Neurology will continue to follow the patient in house and make further gavin mmendations as needed. Time with Patient: Less than 30
[2024-04-16 10:40] LABS: Basophils # (A) 0.01 X 10*3/uL (0.00-0.10); Basophils % (A) 0.2 %; Eosinophils # (A) 0.07 X 10*3/uL (0.04-0.35); Eosinophils % (A) 1.1 %; HCT 39.2 % (37.2-46.3); HGB 12.1 g/dL (12.0-15.0); Lymphocytes # (A) 1.06 X 10*3/uL (0.90-5.00); Lymphocytes % (A) 16.7 %; MCH 28.9 pg (27.0-32.0); MCHC 30.9 g/dL (32.0-37.0); MCV 93.8 FL (80.0-97.0); Mean Platelet Volume 9.9 FL (9.5-12.2); Monocytes % (A) 7.9 %; NRBC Per 100 WBC 0 X 10*3/uL (0.00-0.01); Neutrophils # (A) 4.64 X 10*3/uL (1.80-7.70); Neutrophils % (A) 73.2 %; Platelet Count 197 X 10*3/uL (140-440); RBC 4.18 X 10*6/uL (4.10-5.20); RDW 15.1 % (11.5-14.5); WBC 6.34 X 10*3/uL (4.50-10.00)
[2024-04-16 10:44] LABS: ALT 17 U/L (8-44); AST 21 U/L (13-35); Albumin 3.7 g/dL (3.8-4.9); Albumin/Globulin Ratio 1.85 Ratio (1.60-3.17); Alkaline Phosphatase 48 U/L (41-126); BUN/Creat Ratio 21.42 Ratio (12.00-20.00); Blood Urea Nitrogen 25.7 mg/dL (9.0-27.0); Calcium 8.7 mg/dL (8.7-10.3); Carbon Dioxide 27.5 mmol/L (21.6-31.8); Chloride 106 mmol/L (96-109); Glucose 74 mg/dL (70-110); Potassium 4.7 mmol/L (3.5-5.5); Sodium 144 mmol/L (135-145); Total Bilirubin <0.2 mg/dL (0.3-1.2); Total Protein 5.7 g/dL (6.2-8.2)
--- NOTE | 2024-04-16 19:52 | CT ---
EXAMINATION TYPE: CT brain wo con CT DLP: 1133 mGycm, Automated exposure control for dose reduction was used. DATE OF EXAM: 04/16/2024 7:01 PM COMPARISON: CT brain 04/06/2024. CLINICAL INDICATION:Female, 59 years old with history of head trauma, Head Trauma. TECHNIQUE: Brain: Axial CT images of the brain were obtained with coronal and sagittal reformats created and rev iewed. Contrast used: None. Oral contrast used: None. FINDINGS: Brain: Extra-axial spaces: No abnormal extra-axial fluid collections. Ventricular system: Within normal limits Cerebral parenchyma: No acute intraparenchymal hemorrhage or mass effect. The mar-white junction is well differentiated. Cerebellum: Unremarkable. Mass effect: No evidence of midline shift. Intracranial vasculature: unremarkable Soft tissues: Normal. Calvarium/osseous structures: No depressed skull fracture. Paranasal sinuses and mastoid air cells: Mild scattered paranasal sinus disease. Visualized orbits: Orbital contents are intact. IMPRESSION: No acute intracranial process. [facility], , 04/16/2024 7:50 PM
[2024-04-16] MEDS: QUEtiapine 25 MG TAB PO PRN (21:07)
--- NOTE | 2024-04-16 21:54 | CT ---
EXAMINATION TYPE: CT chest wo con CT DLP: 497 mGycm, Automated exposure control for dose reduction was used. DATE OF EXAM: 04/16/2024 7:01 PM COMPARISON: CTA chest 01/19/2024 . CLINICAL INDICATION:Female, 59 years old with history of SOB/pain; PHH, SOB TECHNIQUE: Multiple axial images were obtained through the chest. Sagittal and coronal reformats were created for review. Contrast used: mL of (None if empty) Oral contrast used: (None if empty) FINDINGS: LUNGS/ PLEURA: Bibasilar atelectasis/scarring. No pneumothorax or pleural effusion. AIRWAY: Patent and unremarkable. HEART/PERICARDIUM: Cardiomegaly.Trace pericardial fluid likely physiologic. Tricuspid surgical change s. MEDIASTINUM: No gross evidence of adenopathy. VASCULATURE: No aortic aneurysm. MUSCULOSKELETAL: No acute osseous abnormalities SOFT TISSUES/LYMPH NODES: Right chest ICD noted. LOWER NECK: No significant findings. UPPER ABDOMEN: Atrophic kidneys. Incidentally noted small splenule. Cholecystectomy changes there are subcentimeter hypodense foci in the liver too small to characterize. IMPRESSION: 1. No acute intrathoracic process. 2. Cardiomegaly. [facility], , 04/16/2024 9:51 PM
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
--- NOTE | 2024-04-17 01:34 | EEG ---
ELECTROENCEPHALOGRAM REPORT REASON FOR ELECTROENCEPHALOGRAM: History of pseudoseizures with recurrent seizure type activity.. CURRENT MEDICATIONS: 1. Atrovent. 2. Ativan. 3. Magnesium sulphate. 4. Solumedrol. 5. Metoprolol. 6. Flagyl. 7. Midodrine. 8. Naloxone. 9. Zofran. 10.Vitamin B6. 11.Requip. 12.Sertraline. 13.Spironolactone. 14.DuoNeb. 15.Eliquis. 16.Lipitor. 17.Pulmicort. 18.BuSpar. 19.Cefepime. 20.Valium. 21.Benadryl. 22.Florinef. 23.Lasix. 24.Gabapentin. 25.Dulcolax. CHARACTERIZATION OF RECORD: This 20-minute electroencephalogram was characterized by background rhythm of roughly 11 Hertz with some interspersed low frequent C4-5 Hertz delta rhythm. The study was reactive to eye opening and eye closure. There did appear to be episodes of right hand as well as arm shaking throughout the record, however, there were no epileptiform discharges correlated with this. Photic stimulation was performed and result in a driving response from 4 to 16 Hertz. No hyperventilation was performed. Throughout this electroencephalogram, there was no evidence of focal slowing, focal spikes, sharp waves, or epileptiform discharges. CONCLUSION: This is a mildly abnormal 20-minute electroencephalogram secondary to some intermittent background slowing 4 to 5 Hertz consistent with mild degree of metabolic or toxic encephalopathy. No electrographic seizure activity was noted. MMODL / IJN: [id number] / [facility]
[2024-04-17] MEDS: FUROSEMIDE 10 MG/ML 4 ML VIAL IV ONE (16:11)
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
[2024-04-17] MEDS: busPIRone HCl 10 MG TAB PO SCH (21:08)
--- NOTE | 2024-04-18 08:46 | P.PN ---
Subjective Progress Note Date: 04/18/24 Principal diagnosis: History of pseudoseizures with multiple seizure type events with negative electroencephalogram. Ms. Meza is a 59-year-old female with history of documented nonepileptic seizures, myocardial infarction, pulmonary embolus, antiphospholipid antibody syndrome for which she takes Eliquis, chronic renal insufficiency stage III, migraines, cervical and lumbar disease as well as vertigo and lupus. Patient was admitted to [facility] on April 06 status post episodes of pseudo pseudoseizure. She ran out of her medications and was having a seizure due to stress. She also was noted to have low sodium as well as nausea and vomiting. She continued to have seizure type events in house which appeared to involve twitching of her fingers and moaning with turning of her head to the right and rigid musculature. Dr. Marko Olea was consulted on April 13; however, the patient refused to see him as well as refused an EEG. She is continue to have spells while in house and was noted to have a seizure this morning. When I entered the room the patient was twitching her extremities with rigid stiffness of her both arms and both legs. Her head was turned to the right as well as her eyes. There was no rhythmic eye movements noted and no rhythmic shaking of other parts of her body other than the tips of her fingers and flexion extension of her toes. Neurology has been consulted for further management recommendations. When seen initially on April 16, she was grossly rigid all over and wiggling her fingers asymmetrically. She was unresponsive to voice but did not have eye deviation or any rhythmic movements other than wiggling of her fingers. An electroencephalogram was ordered to look for any epileptiform discharges. This was accomplished on April 16 and the patient had some background slowing at 4 to 5 Hz without evidence of epileptiform discharges. On the morning of April 17, the patient was alert and fully oriented with a nonfocal neurologic exam. She did complain of some headache, but she has been asking for narcotics routinely and nursing has noted that her episodes will increase when she does not receive narcotics or Ativan. On the evening of April 17 the patient apparently fell out of bed with an event as she did not receive the narcotics that she wanted at that time. She was also placed on Seroquel 25 mg nightly to regulate sleep by neurology. On the morning of April 18, the patient is drowsy but arousable and is pleasant with the examiner. Her exam is nonfocal at this time. She does state that Seroquel was somewhat ineffective for helping her sleep. However she does state that her headache appears to be improving, and questions when she can go back to her facility. I told her that we are waiting on clinical improvement and in order to get her home before Addy, she would need to have decreased events. Assessment and Plan Assessment: Ms. Meza is a 59-year-old female with history of documented ps eudoseizures as well as antiphospholipid antibody syndrome. She is currently on Eliquis 5 mg twice daily. She continues to have seizure type events involving rigidity and stiffness of her upper extremities with the wiggling of her fingers and toes. And her head is deviated to the right as well as eyes today but no rhythmic movement of head or eyes is noted. I believe these events are most consistent with nonepileptic seizures; however, I will attempt to order an EEG to confirm this. Plan: 1. Routine electroencephalogram was negative for any epileptiform activity. The patient has a known diagnosis of pseudoseizures. 2. I have also added melatonin 10 mg nightly to the patient's medications in addition to the Seroquel to help her to sleep. 3. I believe if her clinical situation continues to improve with less events, she may be hopefully transferred back to her facility in 1 or 2 days. 4. Neurology will continue to follow her on an intermittent basis from this point forward. Objective - Vital Signs Vital signs: Vital Signs Temp 98.7 F 04/18/24 02:23 Pulse 76 04/18/24 02:23 Resp 18 04/18/24 02:23 BP 117/81 04/18/24 02:23 Pulse Ox 95 04/18/24 02:23 FiO2 Intake & Output 04/17/24 04/18/24 04/18/24 18:59 06:59 18:59 Intake Total 100 Balance 100 Intake: Intake, IV Titration 100 Amount Cefepime 2 gm In Sodium 100 Chloride 0.9% 100 ml @ 25 mls/hr IVPB Q12H [facility] Rx# :[id number] Other: Voiding Method Toilet Toilet # Voids 4 2 - Labs CBC & Chem 7: 04/16/24 07:50 04/16/24 07:50
[2024-04-18 14:57] VITALS: BP 119/67; RESP 17; TEMP 99
[2024-04-18 16:13] VITALS: PULSE 68
[2024-04-18] MEDS ORDERED: MELATONIN 5 MG TABLET PO SCH (21:00)
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
== END 2024-04-18 20:20 | disposition home or self-care (01) | DRG 177 ==
LOC: EC 11:34 → 6NMEDSUR 13:59 → EEVIPCON 14:00 → OBSVTOIN 14:00 → 6NMEDSUR 15:43 → 4SSUR 16:00
PROVIDERS: ADMIT Family Medicine; ATTEND Family Medicine
PROC: 02HV33Z Insertion of Infusion Device into Superior Vena Cava, Percutaneous Approach (ICD-10-PCS; principal; 2024-04-08)
PROC: B548ZZA Ultrasonography of Superior Vena Cava, Guidance (ICD-10-PCS; 2024-04-08)
PROC: B5181ZA Fluoroscopy of Superior Vena Cava using Low Osmolar Contrast, Guidance (ICD-10-PCS; 2024-04-08)
PROC: 4A10X4Z Monitoring of Central Nervous Electrical Activity, External Approach (ICD-10-PCS; 2024-04-16)
DX: J69.0 Pneumonitis due to inhalation of food and vomit (principal); I50.33 Acute on chronic diastolic (congestive) heart failure; I13.0 Hypertensive heart and chronic kidney disease with heart failure and stage 1 through stage 4 chronic kidney disease, or unspecified chronic kidney disease; E87.1 Hypo-osmolality and hyponatremia; J44.0 Chronic obstructive pulmonary disease with (acute) lower respiratory infection; E27.40 Unspecified adrenocortical insufficiency; D61.818 Other pancytopenia; I48.20 Chronic atrial fibrillation, unspecified; D68.61 Antiphospholipid syndrome; J45.901 Unspecified asthma with (acute) exacerbation; F33.1 Major depressive disorder, recurrent, moderate; N17.9 Acute kidney failure, unspecified; R11.2 Nausea with vomiting, unspecified; J68.0 Bronchitis and pneumonitis due to chemicals, gases, fumes and vapors; G25.81 Restless legs syndrome; G43.909 Migraine, unspecified, not intractable, without status migrainosus; N18.30 Chronic kidney disease, stage 3 unspecified; E86.0 Dehydration; E78.5 Hyperlipidemia, unspecified; E87.6 Hypokalemia; R56.9 Unspecified convulsions; E66.01 Morbid (severe) obesity due to excess calories; F41.1 Generalized anxiety disorder; F43.10 Post-traumatic stress disorder, unspecified; I25.2 Old myocardial infarction; M19.90 Unspecified osteoarthritis, unspecified site; Z79.01 Long term (current) use of anticoagulants; Z79.52 Long term (current) use of systemic steroids; Z79.899 Other long term (current) drug therapy; Z82.49 Family history of ischemic heart disease and other diseases of the circulatory system; Z86.711 Personal history of pulmonary embolism; Z90.710 Acquired absence of both cervix and uterus; Z95.2 Presence of prosthetic heart valve; Z80.0 Family history of malignant neoplasm of digestive organs; Z88.0 Allergy status to penicillin; Z88.1 Allergy status to other antibiotic agents
CPT/HCPCS: 36415; 70450; 71045; 71250; 80053; 80306; 80320; 81001; 82533; 83036; 83735; 84100; 84145; 84443; 84481; 84484; 85025; 87502; 87635; 93005; 94640; 94760; 95816; 96361; 96365; 96366; 96375; 99285

== ENCOUNTER 2024-04-20 19:59 | Inpatient (IN) | payer MEDICARE ==
[2024-04-20] MEDS: MIDAZOLAM 1 MG/ML 5 ML VIAL IV STA (19:59)
[2024-04-20] MEDS: SODIUM CHLORIDE 0.9% 1,000 ML IV STA (19:59)
[2024-04-20 20:13] LABS: Glucose,Whole Blood 92 mg/dL (70-110)
[2024-04-20 20:37] LABS: Basophils % (A) 0 %; Eosinophils # (A) 0.1 k/uL (0-0.7); Eosinophils % (A) 1 %; HCT 39.5 % (34.0-46.0); HGB 12.8 gm/dL (11.4-16.0); Lymphocytes # (A) 0.7 k/uL (1.0-4.8); Lymphocytes % (A) 8 %; MCH 29.5 pg (25.0-35.0); MCHC 32.4 g/dL (31.0-37.0); MCV 91.3 fL (80.0-100.0); Mean Platelet Volume 7.5; Monocytes # (A) 0.5 k/uL (0-1.0); Monocytes % (A) 6 %; Neutrophils # (A) 7.6 k/uL (1.3-7.7); Neutrophils % (A) 84 %; Platelet Count 253 k/uL (150-450); RBC 4.33 m/uL (3.80-5.40)
[2024-04-20 20:46] LABS: Partial Thromboplastin Time 24.4 sec (22.0-30.0); Prothrombin Time 11.4 sec (10.0-12.5)
[2024-04-20 20:51] LABS: ALT 35 U/L (4-34); AST 43 U/L (14-36); African American GFR (CKD) 64 (>60 ml/min/1.73 sqM); Albumin 4.1 g/dL (3.5-5.0); Alkaline Phosphatase 59 U/L (38-126); Anion Gap 7 mmol/L; Blood Urea Nitrogen 34 mg/dL (7-17); Carbon Dioxide 31 mmol/L (22-30); Chloride 96 mmol/L (98-107); Glucose 87 mg/dL (74-99); Lipase 92 U/L (23-300); Magnesium 2.2 mg/dL (1.6-2.3); Non-African American GFR(CKD) 56 (>60 ml/min/1.73 sqM); Potassium 3.9 mmol/L (3.5-5.1); Sodium 134 mmol/L (137-145); Total Bilirubin 0.4 mg/dL (0.2-1.3); Total Protein 6.3 g/dL (6.3-8.2)
[2024-04-20] MEDS: HYDROmorphone 0.5 MG/0.5 ML SYRINGE IVP STA (21:04)
[2024-04-20] MEDS: ASPIRIN 81 MG PO STA (21:05)
[2024-04-20] MEDS: diphenhydrAMINE 50 MG/ML 1 ML VIAL IVP STA (22:07)
--- NOTE | 2024-04-20 23:09 | ED ---
General Adult HPI - General Source: patient, EMS, RN notes reviewed, old records reviewed Mode of arrival: EMS <EulogioIndra - Last Filed: 04/20/24 23:04> - General Source: patient, EMS, RN notes reviewed, old records reviewed Mode of arrival: EMS - History of Present Illness -: days(s) Radiation: non-radiation Consistency: constant Improves with: none Worsens with: none Associated Symptoms: loss of appetite, malaise, nausea/vomiting, shortness of breath, weakness Treatments Prior to Arrival: none <Angel Mayes - Last Filed: 04/22/24 22:49> - General Chief complaint: Seizure Stated complaint: Seizure Time Seen by Provider: 04/20/24 19:59 - History of Present Illness Initial comments: Patient is a 59-year-old female well-known to our facility presents emergency department for chest pain as well as episode of seizure. Apparently patient began experiencing chest pain while eating dinner. States it felt like a baseball being struck against her chest and notes his worst pain she is ever felt. She told EMS she thinks she might have a PE. Patient does have this complaint frequently other department. She is already on Eliquis for PE. She states she has been compliant with it. On the way here, patient experienced seizure-like activity. Vital signs remained stable. Patient presents at this time acutely seizing. Patient received 5 mg of Versed prior to arrival and immediately upon arrival was given additional 5 mg of Versed which stopped the patient's seizure. Upon review of the chart, patient is well-known to our facility and has a history of pseudoseizures and was recently discharged after being diagnosed with pneumonia. Patient does have a cardiac history as well as the history of PE. She does convey her concern for PE and is requesting CT PE. (Indra Krishnan) This is a 59 female to the ER for evaluation of seizures originally, here throughout the emergency room and she was concern for PE recent hospital admission and discharge where she states she cannot take her antibiotics secondary to nausea vomiting (Angel Mayes) - Related Data Home Medications Medication Instructions Recorded Confirmed Atorvastatin [Lipitor] 40 mg PO HS 09/24/21 04/21/24 Sertraline [Zoloft] 200 mg PO DAILY 09/24/21 04/21/24 Apixaban [Eliquis] 5 mg PO BID 05/29/22 04/21/24 busPIRone HCl [Buspar] 5 mg PO BID 06/11/22 04/21/24 Fludrocortisone [Florinef] 0.1 mg PO DAILY 09/20/22 04/21/24 Metoprolol Succinate (ER) [Toprol 50 mg PO DAILY 02/16/23 04/21/24 XL] rOPINIRole HCL [Requip] 2 mg PO HS 04/28/23 04/21/24 Bumetanide [BUMEX] 1 mg PO HS 08/12/23 04/21/24 Ipratropium Nebulized [Atrovent 0.5 mg INHALATION RT-QID PRN 08/12/23 04/21/24 Nebulized 0.2 MG/ML] Spironolactone [Aldactone] 50 mg PO HS 08/12/23 04/21/24 Budesonide/Glycopyr/Formoterol 2 puff INHALATION RT-BID 12/26/23 04/21/24 [Breztri Aerosphere Inhaler] Cyclobenzaprine [Flexeril] 5 mg PO TID@,,12/26/23 04/21/24 Diclofenac Sodium [Voltaren 2 - 4 gm TOPICAL TID PRN 12/26/23 04/21/24 Arthritis Pain 1% Gel] Gabapentin 600 mg PO QID@,,,12/26/23 04/21/24 Midodrine [ProAmatine] 5 mg PO TID PRN 12/26/23 04/21/24 Ondansetron [Zofran] 4 mg PO TID PRN 12/26/23 04/21/24 Vitamin B-6(Unknown) 1 tab PO DAILY 12/26/23 04/21/24 Vitamin D3(Unknown) 1 tab PO DAILY 12/26/23 04/21/24 HYDROcodone/APAP 7.5-325MG [[place] 1 tab PO TID 04/06/24 04/21/24 7.5-325] Potassium Chloride ER [K-Dur 20] 20 meq PO DAILY 04/06/24 04/21/24 Amoxic-Pot Clav 875-125Mg 1 tab PO Q12HR 04/21/24 04/21/24 [Augmentin 875-125] Hydrocortisone [Cortef] 10 mg PO DIRECTED 04/21/24 04/21/24 Previous Rx's Medication Instructions Recorded Magnesium Oxide [Mag-Ox] 400 mg PO DAILY 90 Days #90 tab 12/31/23 Budesonide [Pulmicort] 0.5 mg INHALATION RT-BID 30 Days 04/18/24 #60 ml Ipratropium-Albuterol Nebulize 3 ml INHALATION RT-QID 30 Days 04/18/24 [Duoneb 0.5 mg-3 mg/3 ml Soln] #120 each Melatonin 10 mg PO HS tab 04/18/24 QUEtiapine [SEROquel] 25 mg PO HS PRN 30 Days #30 tab 04/18/24 Allergies Allergy/AdvReac Type Severity Reaction Status Date / Time Penicillins Allergy Severe Anaphylaxis Verified 04/21/24 10:34 vancomycin Allergy Severe Swelling Verified 04/21/24 10:34 in lips cefepime Allergy Swelling Verified 04/21/24 10:34 clindamycin Allergy Anaphylaxis Verified 04/21/24 10:34 Influenza Virus Vaccines Allergy Anaphylaxis Verified 04/21/24 10:34 latex Allergy Itching Verified 04/21/24 10:34 and swelling morphine Allergy Anaphylaxis Verified 04/21/24 10:34 albuterol [From Ventolin HFA] AdvReac Rapid Verified 04/21/24 10:34 Heart Rate dexamethasone [From Decadron] AdvReac severe Verified 04/21/24 10:34 pain, like needles in groin [id number] AdvReac Confusion, Verified 04/21/24 10:34 [From Emgality Pen] increased blood pressure metoclopramide [From Reglan] AdvReac "felt like Verified 04/21/24 10:34 I needed to jump out of my skin" prochlorperazine AdvReac severe Verified 04/21/24 10:34 [From Compazine] anxiety Review of Systems ROS Other: All systems not noted in ROS Statement are negative. <Indra Krishnan - Last Filed: 04/20/24 23:04> ROS Other: All systems not noted in ROS Statement are negative. <Angel Mayes - Last Filed: 04/22/24 22:49> ROS Statement: Those systems with pertinent positive or pertinent negative responses have been documented in the HPI. Review of Systems: CONST: Denies fever EYES: Denies blurry vision ENT: Denies nasal congestion C/V: Endorses chest pain RESP: Denies shortness of breath GI: Denies abdominal pain : Denies dysuria SKIN: Denies rash. MSK: Denies joint pain. 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 Patient states past history of C-Diff from 03/2023. Last Myocardial Infarction Date:: 08/30/2018 History of Any Multi-Drug Resistant Organisms: None Reported Date of last positivie culture/infection: 03/02/23 MDRO Source:: Stool Past Surgical History: Back Surgery, Breast Surgery, Cardiac Valve Replacement, Section, Cholecystectomy, Heart Catheterization, Hysterectomy, Pacemaker Additional Past Surgical History / Comment(s): pacemaker d/t bradycardia/hypotension with last one place in 2013 in [place], [place], 3 lower back surgeries, bilateral breast reduction. 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. lamenectomy Past Anesthesia/Blood Transfusion Reactions: No Reported Reaction Additional Past Anesthesia/Blood Transfusion Reaction / Comment(s): blood transfusion no issues Type of Cardiac Device: Permanent Pacemaker, Unknown Device Placement Date:: 2012 Past Psychological History: Anxiety, PTSD Smoking Status: Never smoker Past Alcohol Use History: Rare Past Drug Use History: Marijuana - Past Family History Mother Additional Family Medical History / Comment(s): Mother at the age of 49 yrs after surgery for silicon breast implants with a leak that caused ARDS and DIC per pt (fibroid cysts) Father Family Medical History: Cancer, Hyperlipidemia, Hypertension Additional Family Medical History / Comment(s): Father is a colon cancer survivor. <Indra Krishnan - Last Filed: 04/20/24 23:04> General Exam <Indra Krishnan - Last Filed: 04/20/24 23:04> General appearance: alert, in no apparent distress Head exam: Present: atraumatic, normocephalic, normal inspection Eye exam: Present: normal appearance, PERRL, EOMI. Absent: scleral icterus, conjunctival injection, periorbital swelling ENT exam: Present: normal exam, mucous membranes moist Neck exam: Present: normal inspection. Absent: tenderness, meningismus, lymphadenopathy Respiratory exam: Present: normal lung sounds bilaterally. Absent: respiratory distress, wheezes, rales, rhonchi, stridor Cardiovascular Exam: Present: regular rate, normal rhythm, normal heart sounds. Absent: systolic murmur, diastolic murmur, rubs, gallop, clicks GI/Abdominal exam: Present: soft, normal bowel sounds. Absent: distended, tenderness, guarding, rebound, rigid Extremities exam: Present: normal inspection, full ROM, normal capillary refill. Absent: tenderness, pedal edema, joint swelling, calf tenderness Back exam: Present: normal inspection Neurological exam: Present: alert, oriented X3, CN II-XII intact Psychiatric exam: Present: normal affect, normal mood Skin exam: Present: warm, dry, intact, normal color. Absent: rash <Angel Mayes - Last Filed: 04/22/24 22:49> - General Exam Comments Initial Comments: General: Upon presentation, patient was having seizure-like activity which cease d with Versed. Upon reflection, did appear to be more pseudoseizure activity. HEAD: Normal with no signs of head trauma. EYES: PERRLA, EOMI, conjunctiva normal, no discharge. Pupils are 3 mm and equal bilaterally. ENT: Hearing grossly intact, normal oropharynx. RESPIRATORY: Clear breath sounds bilaterally. No wheezes, rales, or rhonchi. C/V: Regular rate and rhythm. S1 and S2 auscultated, no edema, peripheral pulses 2+ and intact throughout ABD: Abd is soft, nontender, nondistended EXT: Normal range of motion, no obvious deformity SKIN: No rashes or lesions observed on exposed skin. NEURO: Initially seizure-like activity, however no postictal phase and was alert and oriented x 4 afterwards. No focal deficits. (Indra Krishnan) Course <Angel Mayes - Last Filed: 04/22/24 22:49> Vital Signs 04/20/24 04/20/24 04/21/24 20:01 21:29 00:20 Temperature 98.2 F Pulse Rate 70 82 70 Respiratory 14 20 16 Rate Blood Pressure 111/67 106/52 106/80 O2 Sat by Pulse 98 95 98 Oximetry 04/21/24 01:49 Temperature 97.9 F Pulse Rate 70 Respiratory 16 Rate Blood Pressure 121/76 O2 Sat by Pulse 98 Oximetry - Reevaluation(s) Reevaluation #1: Records reviewed (Angel Mayes) Reevaluation #2: Patient is showing no improvement here in the ER (Angel Mayes) - Consultations Consultation #1: Admitting physicians who agreed admit this patient (Angel Mayes) Medical Decision Making - Lab Data Result diagrams: 04/20/24 20:03 04/20/24 20:03 - EKG Data -: EKG Interpreted by Me <Indra Krishnan - Last Filed: 04/20/24 23:04> - Lab Data Result diagrams: 04/22/24 06:26 04/22/24 06:26 - EKG Data -: EKG Interpreted by Me - Radiology Data Radiology results: report reviewed (CT chest negative for significant acute disease likely underlying pneumonia), image reviewed <Angel Mayes - Last Filed: 04/22/24 22:49> - Medical Decision Making Was pt. sent in by a medical professional or institution (, PA, MR TEACHER, urgent care, hospital, or penitentiary...) When possible be specific @ -No Did you speak to anyone other than the patient for history (EMS, parent, family, police, friend...)? What history was obtained from this source @ -No Did you review nursing and triage notes (agree or disagree)? Why? @ -I reviewed and agree with nursing and triage notes Were old charts reviewed (outside hosp., previous admission, EMS record, old EKG, old radiological studies, urgent care reports/EKG's, penitentiary records)? Report findings @ -Old charts reviewed from recent admission, including CT PE from 04/16/24 which revealed no evidence of pulmonary embolism. Differential Diagnosis (chest pain, altered mental status, abdominal pain women, abdominal pain men, vaginal bleeding, weakness, fever, dyspnea, syncope, headache, dizziness, GI bleed, back pain, seizure, CVA, palpatations, mental health, musculoskeletal)? @ -Differential Chest Pain: Stable Angina, Unstable Angina, STEMI, NSTEMI Aortic Dissection, Pneumothorax, Musculoskeletal, Esophageal Spasm GERD, Cholecystitis, Pancreatitis, Zoster, this is not meant to be an all-inclusive list. EKG interpreted by me (3pts min.). @ -As above X-rays interpreted by me (1pt min.). @ -Pending CT interpreted by me (1pt min.). @ -Pending U/S interpreted by me (1pt. min.). @ -None done What testing was considered but not performed or refused? (CT, X-rays, U/S, labs)? Why? @ -None What meds were considered but not given or refused? Why? @ -None Did you discuss the management of the patient with other professionals (professionals i.e. , PA, MR TEACHER, lab, RT, psych nurse, social science teacher, capacity planning manager, teacher, community resource officer, case making machine operator)? Give summary @ -No Was smoking cessation discussed for >3mins.? @ -No Was critical care preformed (if so, how long)? @ -No Were there social determinants of health that impacted care today? How? (Homelessness, low income, unemployed, alcoholism, drug addiction, transportation, low edu. Level, literacy, decrease access to med. care, [facility], rehab)? @ -No Was there de-escalation of care discussed even if they declined (Discuss DNR or withdrawal of care, Hospice)? DNR status @ -No What co-morbidities impacted this encounter? (DM, HTN, Smoking, COPD, CAD, Cancer, CVA, ARF, Chemo, Hep., AIDS, mental health diagnosis, sleep apnea, morbid obesity)? @ -CAD, pseudoseizures, chronic pain Was patient admitted / discharged? Hospital course, mention meds given and route, prescriptions, significant lab abnormalities, going to OR and other pertinent info. @ -Patient presents emergency department complaining of chest pain and had an episode of a pseudoseizure prior to arrival. Patient is cooperative with no postictal phase. She has well-documented history of pseudoseizures. We will obtain cardiac workup. Patient is extremely concerned that she is having a pulmonary embolism breakthrough. She states she has been compliant with her medications but is insisting on obtaining CT PE. I did discuss risks and benefits with her however she is insisting, and with her history it is not out of the realm of possibility however low likelihood. We will obtain CT PE as well as brain in addition to chest x-ray. Cardiac workup will be obtained. Prabhjot pelletier was in agreement this plan. Patient administered IV fluids, low-dose Dilaudid, as well as 324 mg of aspirin. EKG shows no signs of acute ischemia. Laboratory studies remarkable for mild lactic acidosis of 2.8. Remainder the workup unremarkable. Imaging is still pending. I went to reevaluate the patient as she experienced pseudoseizure activity again. I did explain to the patient's that she will not be administered benzodiazepines and also will not be administered any further pain medications while this is occurring. Seizure activity stopped. Patient had no postictal state. She will be given a dose of Benadryl at this time. IV was obtained and CTs are pending. At this time is the end my shift. Disposition pending results of CT imaging. Patient signed out to Dr. Mayes pending results of imaging. Undiagnosed new problem with uncertain prognosis? @ -No Drug Therapy requiring intensive monitoring for toxicity (Heparin, Nitro, Insulin, Cardizem)? @ -No Were any procedures done? @ -No Diagnosis/symptom? @ -Chest pain, pseudoseizures Acute, or Chronic, or Acute on Chronic? @ -Acute on chronic (Indra Krishnan) 59 Female will admit for IV antibiotics secondary to persistent nausea vomiting here in the emergency department (Angel Mayes) - Lab Data Lab Results 04/20/24 04/20/24 04/20/24 Range/Units 20:02 20:03 20:03 WBC 9.0 (3.8-10.6) k/uL RBC 4.33 (3.80-5.40) m/uL Hgb 12.8 (11.4-16.0) gm/dL Hct 39.5 (34.0-46.0) % MCV 91.3 (80.0-100.0) fL MCH 29.5 (25.0-35.0) pg MCHC 32.4 (31.0-37.0) g/dL RDW 15.0 (11.5-15.5) % Plt Count 253 (150-450) k/uL MPV 7.5 Neutrophils % 84 % Lymphocytes % 8 % Monocytes % 6 % Eosinophils % 1 % Basophils % 0 % Neutrophils # 7.6 (1.3-7.7) k/uL Lymphocytes # 0.7 L (1.0-4.8) k/uL Monocytes # 0.5 (0-1.0) k/uL Eosinophils # 0.1 (0-0.7) k/uL Basophils # 0.0 (0-0.2) k/uL PT 11.4 (10.0-12.5) sec INR 1.0 (<1.2) APTT 24.4 (22.0-30.0) sec Sodium (137-145) mmol/L Potassium (3.5-5.1) mmol/L Chloride (98-107) mmol/L Carbon Dioxide (22-30) mmol/L Anion Gap mmol/L BUN (7-17) mg/dL Creatinine (0.52-1.04) mg/dL Est GFR (CKD-EPI)AfAm (>60 ml/min/1.73 sqM) Est GFR (CKD-EPI)NonAf (>60 ml/min/1.73 sqM) Glucose (74-99) mg/dL POC Glucose (mg/dL) 92 (70-110) mg/dL POC Glu Recreation Program Coordinator ID Leonid Medina Lactic Ac Sepsis Rflx Plasma Lactic Acid Raffi (0.7-2.0) mmol/L Calcium (8.4-10.2) mg/dL Magnesium (1.6-2.3) mg/dL Total Bilirubin (0.2-1.3) mg/dL AST (14-36) U/L ALT (4-34) U/L Alkaline Phosphatase (38-126) U/L Troponin I (0.000-0.034) ng/mL Total Protein (6.3-8.2) g/dL Albumin (3.5-5.0) g/dL Lipase (23-300) U/L 04/20/24 04/20/24 04/20/24 Range/Units 20:03 20:03 20:04 WBC (3.8-10.6) k/uL RBC (3.80-5.40) m/uL Hgb (11.4-16.0) gm/dL Hct (34.0-46.0) % MCV (80.0-100.0) fL MCH (25.0-35.0) pg MCHC (31.0-37.0) g/dL RDW (11.5-15.5) % Plt Count (150-450) k/uL MPV Neutrophils % % Lymphocytes % % Monocytes % % Eosinophils % % Basophils % % Neutrophils # (1.3-7.7) k/uL Lymphocytes # (1.0-4.8) k/uL Monocytes # (0-1.0) k/uL Eosinophils # (0-0.7) k/uL Basophils # (0-0.2) k/uL PT (10.0-12.5) sec INR (<1.2) APTT (22.0-30.0) sec Sodium 134 L (137-145) mmol/L Potassium 3.9 (3.5-5.1) mmol/L Chloride 96 L (98-107) mmol/L Carbon Dioxide 31 H (22-30) mmol/L Anion Gap 7 mmol/L BUN 34 H (7-17) mg/dL Creatinine 1.09 H (0.52-1.04) mg/dL Est GFR (CKD-EPI)AfAm 64 (>60 ml/min/1.73 sqM) Est GFR (CKD-EPI)NonAf 56 (>60 ml/min/1.73 sqM) Glucose 87 (74-99) mg/dL POC Glucose (mg/dL) (70-110) mg/dL POC Glu Recreation Program Coordinator ID Lactic Ac Sepsis Rflx Plasma Lactic Acid Raffi 2.8 H* (0.7-2.0) mmol/L Calcium 9.0 (8.4-10.2) mg/dL Magnesium 2.2 (1.6-2.3) mg/dL Total Bilirubin 0.4 (0.2-1.3) mg/dL AST 43 H (14-36) U/L ALT 35 H (4-34) U/L Alkaline Phosphatase 59 (38-126) U/L Troponin I <0.012 (0.000-0.034) ng/mL Total Protein 6.3 (6.3-8.2) g/dL Albumin 4.1 (3.5-5.0) g/dL Lipase 92 (23-300) U/L 04/20/24 04/20/24 Range/Units 20:57 23:44 WBC (3.8-10.6) k/uL RBC (3.80-5.40) m/uL Hgb (11.4-16.0) gm/dL Hct (34.0-46.0) % MCV (80.0-100.0) fL MCH (25.0-35.0) pg MCHC (31.0-37.0) g/dL RDW (11.5-15.5) % Plt Count (150-450) k/uL MPV Neutrophils % % Lymphocytes % % Monocytes % % Eosinophils % % Basophils % % Neutrophils # (1.3-7.7) k/uL Lymphocytes # (1.0-4.8) k/uL Monocytes # (0-1.0) k/uL Eosinophils # (0-0.7) k/uL Basophils # (0-0.2) k/uL PT (10.0-12.5) sec INR (<1.2) APTT (22.0-30.0) sec Sodium (137-145) mmol/L Potassium (3.5-5.1) mmol/L Chloride (98-107) mmol/L Carbon Dioxide (22-30) mmol/L Anion Gap mmol/L BUN (7-17) mg/dL Creatinine (0.52-1.04) mg/dL Est GFR (CKD-EPI)AfAm (>60 ml/min/1.73 sqM) Est GFR (CKD-EPI)NonAf (>60 ml/min/1.73 sqM) Glucose (74-99) mg/dL POC Glucose (mg/dL) (70-110) mg/dL POC Glu Recreation Program Coordinator ID Lactic Ac Sepsis Rflx Y Plasma Lactic Acid Raffi 2.0 (0.7-2.0) mmol/L Calcium (8.4-10.2) mg/dL Magnesium (1.6-2.3) mg/dL Total Bilirubin (0.2-1.3) mg/dL AST (14-36) U/L ALT (4-34) U/L Alkaline Phosphatase (38-126) U/L Troponin I (0.000-0.034) ng/mL Total Protein (6.3-8.2) g/dL Albumin (3.5-5.0) g/dL Lipase (23-300) U/L - EKG Data EKG Comments: 12-lead Electrocardiogram Interpretation Note EKG was reviewed and interpreted by myself. 12-lead ECG performed at 2003 is interpreted by me as revealing paced rhythm at a rate of 70 beats per minute. [place] is normal. MT interval is 144 ms, QRS duration is 86 ms, QTc is 443 ms.. There were no ST or T wave abnormalities to suggest myocardial ischemia or injury. R wave progression across the precordium was satisfactory. By my interpretation this EKG is non-diagnostic for acute ischemia. (Indra Krishnan) Disposition <Indra Krishnan - Last Filed: 04/20/24 23:04> Is patient prescribed a controlled substance at d/c from ED?: No Time of Disposition: 00:30 <Angel Mayes - Last Filed: 04/22/24 22:49> Clinical Impression: Seizure-like activity, Chest pain, Intractable pain, Muscle spasm, Shortness of breath, Pneumonia Disposition: ADMITTED IP TO THIS HOSP Condition: Fair
[2024-04-20] MEDS: SODIUM CHLORIDE 0.9% 500 ML 500 ML IV STA (23:29)
--- NOTE | 2024-04-21 00:18 | CT ---
EXAM: CT Angiography Chest With Intravenous Contrast CLINICAL HISTORY: CT Reason: chest pain TECHNIQUE: Axial computed tomographic angiography images of the chest with intravenous contrast. CTDI is 14.7 mGy and DLP is 501.7 mGy-cm. This CT exam was performed using one or more of the following dose reduction techniques: automated exposure control, adjustment of the mA and/or kV according to patient size, and/or use of iterative reconstruction technique. MIP reconstructed images were created and reviewed. COMPARISON: April 16, 2024 FINDINGS: Pulmonary arteries: The pulmonary arterial tree is well opacified with contrast. No pulmonary embolism is identified. There is focal narrowing of the proximal left lower lobe pulmonary artery branch, unchanged. Aorta: The thoracic aorta is nondilated. There is no aneurysm or dissection. Lungs: Scattered linear scarring and atelectasis in the mid to lower lungs bilaterally, increased since previous. No mass. Pleural space: Unremarkable. No significant effusion. No pneumothorax. Heart: Unremarkable. No cardiomegaly. No significant pericardial effusion. No evidence of RV dysfunction. Mediastinum: There is a 3 cm gaseous distention of the esophagus with circumferential 8 mm wall thickening in the mid to lower esophagus suggesting mild esophagitis. No pneumomediastinum. This is similar to previous. Bones/joints: Mild to moderate multilevel degenerative changes throughout the spine. No acute fracture or destructive bone lesion is seen. There are multiple old healed rib fractures bilaterally. No acute fracture is seen. No dislocation. Soft tissues: Unremarkable. Lymph nodes: Unremarkable. No enlarged lymph nodes. Gallbladder and bile ducts: Previous cholecystectomy. Kidneys and ureters: Mild to moderate renal atrophy. Tubes, lines and devices: There is a pacing device in place. The heart is enlarged. There is a trace pericardial effusion. IMPRESSION: 1. The pulmonary arterial tree is well opacified with contrast. No pulmonary embolism is identified. There is focal narrowing of the proximal left lower lobe pulmonary artery branch, unchanged. 2. There is a 3 cm gaseous distention of the esophagus with circumferential 8 mm wall thickening in the mid to lower esophagus suggesting mild esophagitis. No pneumomediastinum. This is similar to previous. 3. Scattered linear scarring and atelectasis in the mid to lower lungs bilaterally, increased since previous. No pneumothorax or pleural effusion is seen. 4. The thoracic aorta is nondilated. There is no aneurysm or dissection. 5. There is a pacing device in place. The heart is enlarged. There is a trace pericardial effusion.
[2024-04-21] MEDS: HYDROmorphone 1 MG/ML 1 ML SYRINGE IVP STA (00:19)
[2024-04-21] MEDS: ONDANSETRON 4 MG/2 ML VIAL IVP STA (00:20)
--- NOTE | 2024-04-21 00:23 | XR ---
EXAM: XR Chest, 2 Views CLINICAL HISTORY: XR Reason: Chest Pain TECHNIQUE: Frontal and lateral views of the chest. COMPARISON: April 16, 2024 CT chest. FINDINGS: Lungs: There is mild vascular congestion without overt edema or focal consolidation. Pleural space: Unremarkable. No pneumothorax. Heart: Unremarkable. No cardiomegaly. Mediastinum: Unremarkable. Normal mediastinal contour. Bones/joints: Mild degenerative changes throughout the spine. No acute fracture. Tubes, lines and devices: There is a pacing device on the right. There is a loop recorder projecting over the heart. The cardiac silhouette is enlarged. Previous transcatheter tricuspid valvuloplasty. Upper abdomen: There is no pneumoperitoneum under the diaphragm. Cholecystectomy clips in the right upper quadrant. IMPRESSION: 1. There is mild vascular congestion without overt edema or focal consolidation. 2. There is a pacing device on the right. There is a loop recorder projecting over the heart. The cardiac silhouette is enlarged.
--- NOTE | 2024-04-21 00:32 | CT ---
EXAM: CT Head Without Intravenous Contrast CLINICAL HISTORY: ITS.REASON CT Reason: chest pain TECHNIQUE: Axial computed tomography images of the head/brain without intravenous contrast. CTDI is 49.1 mGy and DLP is 1135 mGy-cm. This CT exam was performed using one or more of the following dose reduction techniques: automated exposure control, adjustment of the mA and/or kV according to patient size, and/or use of iterative reconstruction technique. COMPARISON: Prior head CT from April 16, 2024. FINDINGS: Brain: Unremarkable. No hemorrhage. No significant white matter disease. No edema. Ventricles: Unremarkable. No ventriculomegaly. Bones/joints: Unremarkable. No acute fracture. Soft tissues: Unremarkable. Sinuses: Unremarkable as visualized. No acute sinusitis. Mastoid air cells: Unremarkable as visualized. No mastoid effusion. IMPRESSION: No evidence of acute intracranial pathology.
[2024-04-21] MEDS ORDERED: PNEUMONIA PROTOCOL UTILIZED 1 EACH MISC PO PRN (00:44)
[2024-04-21] MEDS: SODIUM CHLORIDE 0.9% 1,000 ML IV SCH (01:47)
[2024-04-21] MEDS: AZITHROMYCIN 500 MG in SODIUM CHLORIDE 0.9% 250 ML IVPB ONE (01:51)
[2024-04-21] MEDS: AZITHROMYCIN 500 MG in SODIUM CHLORIDE 0.9% 250 ML IVPB STA (02:40)
[2024-04-21] MEDS: HYDROmorphone 0.5 MG/0.5 ML SYRINGE IVP PRN (03:25)
[2024-04-21 06:55] LABS: Appearance,Urine Clear (Clear); Bilirubin,Urine Negative (Negative); Blood,Urine Negative (Negative); Color,Urine Colorless; Glucose,Urine (UA) Negative (Negative); Ketones,Urine Negative (Negative); Leukocyte Esterase,Urine Negative (Negative); Nitrite,Urine Negative (Negative); PH, Urine 5.5 (5.0-8.0); Protein,Urine Negative (Negative); Specific Gravity,Urine 1.043 (1.001-1.035); Urobilinogen,Urine <2.0 mg/dL (<2.0)
[2024-04-21] MEDS ORDERED: MIDODRINE 5 MG TAB PO PRN (07:35)
[2024-04-21] MEDS: IPRATROPIUM-ALBUTEROL 3 ML NEB INHALATION SCH (08:32)
[2024-04-21] MEDS: IPRATROPIUM 0.5 MG/2.5 ML NEBU INHALATION SCH (08:37)
[2024-04-21] MEDS: APIXABAN 5 MG TAB PO SCH (09:36)
[2024-04-21] MEDS: SERTRALINE 100 MG TAB PO SCH (09:36)
[2024-04-21] MEDS: MAGNESIUM OXIDE 400 MG TAB PO SCH (09:36)
[2024-04-21] MEDS: busPIRone HCl 5 MG TAB PO SCH (09:36)
[2024-04-21] MEDS: POTASSIUM CHLORIDE ER 20 MEQ TAB.ER PO SCH (09:36)
[2024-04-21] MEDS: METOPROLOL SUCCINATE (ER) 50 MG TAB.ER.24H PO SCH (09:37)
[2024-04-21] MEDS: GABAPENTIN 300 MG CAP PO SCH (09:37)
[2024-04-21] MEDS: CHOLECALCIFEROL 25 MCG (1000 IU) TABLET PO SCH (09:38)
[2024-04-21] MEDS: BUDESONIDE 0.5 MG/2 ML NEBU INHALATION SCH (11:25)
[2024-04-21] MEDS: FLUDROCORTISONE 0.1 MG TAB PO SCH (11:51)
[2024-04-21] MEDS: PYRIDOXINE 50 MG TAB PO SCH (11:51)
[2024-04-21] MEDS: PANTOPRAZOLE 40 MG TABLET PO SCH (11:51)
[2024-04-21] MEDS: HYDROcodone/APAP 7.5-325MG 1 EACH TAB PO SCH (11:51)
[2024-04-21] MEDS: diphenhydrAMINE 50 MG/ML 1 ML VIAL IVP PRN (11:52)
[2024-04-21] MEDS ORDERED: SYMBICORT 160-4.5 MCG INHALER INHALATION SCH (20:00)
[2024-04-21] MEDS: SPIRONOLACTONE 25 MG TAB PO SCH (20:34)
[2024-04-21] MEDS: ATORVASTATIN 40 MG TAB PO SCH (20:34)
[2024-04-21] MEDS: QUEtiapine 25 MG TAB PO PRN (20:34)
[2024-04-21] MEDS: BUMETANIDE 1 MG TAB PO SCH (22:35)
[2024-04-21] MEDS: AZITHROMYCIN 500 MG TAB PO SCH (22:35)
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
[2024-04-22] MEDS ORDERED: AZITHROMYCIN 500 MG in SODIUM CHLORIDE 0.9% 250 ML IVPB SCH (06:00)
--- NOTE | 2024-04-22 07:15 | XR ---
Chest, 2 view. HISTORY: Pneumonia COMPARISON: 04/20/2024 TECHNIQUE: PA and lateral views the chest are obtained. FINDINGS: There is a single-lead cardiac pacemaker unchanged in position. The upper quarter. There is a prosthe tic heart valve. There is mild cardiomegaly. The pulmonary vasculature is not grossly congested. There is no airspace consolidation. There is no pleural effusion or pneumothorax. The osseous structures are intact. IMPRESSION: No acute cardiopulmonary disease with no significant interval change. [facility], , 04/22/2024 7:13 AM
[2024-04-22 07:42] LABS: Basophils % (A) 0 %; Eosinophils # (A) 0.1 k/uL (0-0.7); Eosinophils % (A) 2 %; HCT 40.9 % (34.0-46.0); HGB 12.8 gm/dL (11.4-16.0); Hypochromasia Slight; Lymphocytes # (A) 0.6 k/uL (1.0-4.8); Lymphocytes % (A) 15 %; MCH 29.6 pg (25.0-35.0); MCHC 31.3 g/dL (31.0-37.0); MCV 94.4 fL (80.0-100.0); Mean Platelet Volume 8.1; Monocytes # (A) 0.3 k/uL (0-1.0); Monocytes % (A) 7 %; Neutrophils # (A) 3.1 k/uL (1.3-7.7); Neutrophils % (A) 74 %; Platelet Count 234 k/uL (150-450); RBC 4.33 m/uL (3.80-5.40); RDW 15.1 % (11.5-15.5); WBC 4.2 k/uL (3.8-10.6)
[2024-04-22 07:44] LABS: ALT 40 U/L (4-34); African American GFR (CKD) 71 (>60 ml/min/1.73 sqM); Albumin/Globulin Ratio 1.6; Anion Gap 6 mmol/L; Blood Urea Nitrogen 21 mg/dL (7-17); Carbon Dioxide 30 mmol/L (22-30); Chloride 104 mmol/L (98-107); Globulin 2.5 g/dL; Glucose 62 mg/dL (74-99); Non-African American GFR(CKD) 62 (>60 ml/min/1.73 sqM); Sodium 140 mmol/L (137-145); Total Bilirubin 0.7 mg/dL (0.2-1.3); Total Protein 6.5 g/dL (6.3-8.2)
[2024-04-22 07:53] LABS: AST 47 U/L (14-36); Alkaline Phosphatase 43 U/L (38-126); Potassium 4.8 mmol/L (3.5-5.1)
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
[2024-04-22] MEDS: HYDROmorphone 1 MG/ML 1 ML SYRINGE IVP PRN (11:08)
--- NOTE | 2024-04-22 22:17 | PN ---
PROGRESS NOTE SUBJECTIVE: A 59-year-old white female is being treated for pneumonia, atypical chest pain. CAT scans are negative. Her labs look good. Sugar is a little low today at 62. Liver enzymes are a little high. Sodium and potassium 140/4.8. Possible discharge home in the next 24 to 48 hours as she appears to be okay from a GI standpoint, and she is eating. Lipase is negative. OBJECTIVE: CARDIOVASCULAR: S1, S2. LUNGS: Transmitted upper sounds. NEUROLOGIC: Generalized weakness. PSYCH: She is anxious, nervous. VITAL SIGNS: She is on 2 L to room air. Blood pressure is low 100s over 72. Temperature 98.1. Maybe check her cortisol level prior to discharge and monitor for low blood sugars prior to discharge. Prognosis guarded. MMODL / IJN: [id number] /
[2024-04-23 08:35] LABS: Glucose,Whole Blood 121 mg/dL (70-110)
--- NOTE | 2024-04-23 09:53 | XR ---
EXAMINATION TYPE: XR foot complete RT DATE OF EXAM: 04/23/2024 COMPARISON: NONE CLINICAL INDICATION: Female, 59 years old with history of fall, pain in right foot; TECHNIQUE: 3 views FINDINGS: There is generalized soft tissue swelling especially forefoot and midfoot. Type I versus ty pe II accessory navicular as well as an os peroneum. No acute fracture, subluxation, dislocation is s een. IMPRESSION: Generalized soft tissue swelling but without acute osseous abnormality seen. Follow-up can be conside red if there is persistent concern for occult osseous injury. [facility], , 04/23/2024 9:50 AM
--- NOTE | 2024-04-23 09:55 | CT ---
EXAMINATION TYPE: CT brain wo con DATE OF EXAM: 04/23/2024 9:41 AM COMPARISON: 04/20/2024 CLINICAL INDICATION: Female, 59 years old with pain, history of unwitnessed fall, Unwitnessed fall, p t states she has vertigo., TECHNIQUE: Examination was done in axial plane without intravenous contrast. Coronal and sagittal r econstructions performed. CT DLP: 1161.4 mGycm, Automated exposure control for dose reduction was used. FINDINGS: There is no evidence of acute intracranial hemorrhage, acute ischemic changes, mass, mass-effect, or extra-axial fluid collection. There is no effacement of cerebral sulci or basal subarachnoid cister ns. There is no hydrocephalus. There is no midline shift. Powers-white matter distinction is preserv ed. Minimal bifrontal cortical volume loss likely age related change. Small air-fluid level right maxillary sinus. Slight rightward nasal septal deviation. Mastoid air jerrod ls well pneumatized. Orbits and globes are intact. IMPRESSION: No acute intracranial abnormality seen. Small air-fluid level right maxillary sinus may be seen with acute sinusitis. Correlate with symptoms. [facility], , 04/23/2024 9:52 AM
--- NOTE | 2024-04-23 10:59 | XR ---
EXAMINATION TYPE: XR knee complete RT DATE OF EXAM: 04/23/2024 10:52 AM INDICATION: Patient age:Female; 59 years old; Reason for study: pain; PHH. pain COMPARISON: None. TECHNIQUE: The Right knee(s) was examined in Frontal, lateral and oblique projections. FINDINGS: No evidence of any acute osseous pathology soft tissue swelling. No significant osteoarth ritic change identified. Small suprapatellar knee joint effusion. IMPRESSION: 1. No acute osseous pathology. 2. Small suprapatellar joint effusion. [facility], , 04/23/2024 10:57 AM
--- NOTE | 2024-04-23 11:01 | XR ---
EXAMINATION TYPE: XR wrist complete RT DATE OF EXAM: 04/23/2024 10:52 AM INDICATION: Patient age:Female; 59 years old; Reason for study: pain; PHH. pain COMPARISON: Right forearm radiograph 04/28/2023 TECHNIQUE: 4 views of the right wrist. Frontal, navicular, lateral, and oblique. FINDINGS: No acute osseous pathology, joint dislocation, or joint effusion. No significant osteoarthr itic change. Diffuse soft tissue swelling identified of the hand and wrist. No definitive soft tissue gas identified. No osseous erosions. IMPRESSION: 1. No acute osseous pathology. 2. Diffuse soft tissue swelling of the hand and wrist. [facility], , 04/23/2024 10:59 AM
[2024-04-23] MEDS: HYDROmorphone 0.5 MG/0.5 ML SYRINGE IVP PRN (13:03)
[2024-04-23] MEDS: diphenhydrAMINE 50 MG/ML 1 ML VIAL IVP PRN (14:35)
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
[2024-04-24] MEDS: HYDROmorphone 0.5 MG/0.5 ML SYRINGE IVP PRN (12:19)
[2024-04-24] MEDS: HYDROCORTISONE 20 MG TAB PO SCH (14:50)
[2024-04-24] MEDS: methylPREDNISolone SOD SUCCI 125 MG/2 ML VIAL IV SCH (15:46)
--- NOTE | 2024-04-24 22:49 | PN ---
PROGRESS NOTE SUBJECTIVE: A 59-year-old white female. OBJECTIVE: VITAL SIGNS: Temperature 98.6, pulse 68 to 70, respiratory rate 16 to 18, blood pressure 100/66, O2 94 to 95. CARDIOVASCULAR: S1 and S2. LUNGS: Scattered wheeze and rhonchi. HEMATOLOGY: Negative Homans. PSYCH: Fair mood and affect. LABORATORY DATA: Hemoglobin is 12.8, BUN 21, creatinine 1.0. Urine Legionella was negative. She fell in the shower in the bathroom. She says she did not hit her head, she twisted her knees and her ankles. X-rays were all negative. PT cleared her for discharge, possibly will go home soon. Saturating 95 on room air, temp 98.5. Her pseudoseizures are improved. Pulse 77-80, respiratory rate 16. Hematology, negative Homans. Psych, fair mood and affect. CBC, chem panel reviewed. Cortisol level is low. I am going to have to put her on some besides Florinef which does not work 20 b.i.d. to go home to do well. PROGNOSIS: Guarded. Ambulate as tolerated. Please see further orders. Prognosis guarded 20 b.i.d. when she goes home. MMODL / IJN: [id number] /
--- NOTE | 2024-04-24 23:20 | DS ---
DISCHARGE SUMMARY DISCHARGE DIAGNOSES: 1. Seizures. 2. Pseudoseizures. 3. Hypokalemia. 4. Fall, contusion to the wrist and knee. 5. Adrenal insufficiency. She was found to have low cortisol, which we gave her Cortef 20 mg b.i.d., go home on. Seizures, pseudoseizures were treated by [facility] for possible aspiration pneumonia, treated with IV and oral antibiotics. She is stable on discharge, up ambulating to the bathroom. She has multiple medical problems. Her oxygen saturation , pulse 77, respiratory rate 18 to 20, blood pressure is stable. Labs showed a white count is 4.2, hemoglobin is 12.8. Sodium 140, potassium 4.8 on discharge. Sugars were mid 100s. The lactic acid was improved with IV fluids and she was treated for possible pulmonary infection. UA was negative. Treated for adrenal insufficiency as mentioned above, seizures, pseudoseizures. Sent home in stable condition. Follow up as an outpatient. Ambulate as tolerated. MMODL / IJN: [id number] /
--- NOTE | 2024-04-25 11:15 | P.PN ---
Subjective Progress Note Date: 04/25/24 Principal diagnosis: COPD not in exacerbation, continue bronchodilator would avoid steroids Abnormal CT and CAT scan due to basal scarring atelectasis subsegmental level, patient recommended to continue deep breathing exercises incentive spirometry will monitor observe follow-up as outpatient for PFT and repeat CT scan Acute bronchitis, patient to complete 5-day therapy Smoking and nicotine use patient has been counseled about smoking cessation History of DVT PE, no PE seen on CAT scan review, continue direct oral anticoagulant History of recurrent seizures, patient since admission has been seizure-free Chronic pain syndrome, will defer pain management to primary service Major depression, continue antidepressant April 25, 2024, patient seen eval examined during rounds labs reviewed medications and care plan discussed, overall no significant changes still have ongoing intermittent pain generalized aches and pains present, we are oxygen saturation 93% hemodynamic status stable patient remains afebrile. She remains on bronchodilator as well as continuation of her home medications patient also on high-dose IV steroids blood cultures negative patient has been evaluated by orthopedics after a fall, no fractures seen and no surgical intervention recommended patient is being planned for discharge however patient due to fall having severe generalized body pain and aches does not want to go to the hospital due to pain, IV is out patient will need ultrasound-guided IV requested RN to put 1 59-year-old female presenting to the emergency department with acute episode of seizure with history of prior recurrent seizure mostly associated with hypokalemia and electrolyte disturbance, patient of note that has a chronic history of pain and dependence on pain medicine, patient while eating dinner developed severe pain, generalized in nature followed by episode of seizure, she was brought into the emergency department with EMS at that time she was not act ively seizing was awake and alert. Patient has prior history of DVT PE has been on long acting oral anticoagulants, and emergency department vitals were stable she was awake alert, patient did receive 5 mg of Versed IV prior to arrival where another 5 mg right after arrival, that has aborted the seizure. Patient has history of prior pseudoseizures as well recently she was diagnosed with pneumonia as completed IV antibiotic. CT scan no evidence of PE, distal esophageal thickening was noted suggestive of esophagitis, basal scarring and atelectasis of lower lobes seen subsegmental level, no active infiltrate identified, intact pacing device over the right side with loop recorder extending towards the heart, brain CT no active abnormality identified, patient had a repeat chest x-ray no significant finding seen essentially unchanged. Currently patient being managed with bronchodilators continuation of direct oral anticoagulant, IV antibiotics to cover atypical pneumonia/bronchitis with Zithromax and continuation of home medicine and potassium replacement. Labs include CBC within normal limit with normal coags, patient has evidence of electrolyte imbalance on arrival with sodium of 134 potassium 3.9 CO2 31 lactic acid of 2.8 however his repeat lactic acid is now within normal limit potassium improved to 4.8 BUN/creatinine improved to 21/1 from 31/05.09, urinalysis unremarkable, urine Legionella antigen was negative Other active medical problems include dyslipidemia, major depression, DVT PE on direct acting oral anticoagulant, chronic hypotension takes Florinef, intermittent hypertension takes beta-verónica, prior history of C. difficile colitis, RLS, Objective - Vital Signs Vital signs: Vital Signs Temp 98.2 F 04/25/24 06:55 Pulse 80 04/25/24 08:27 Resp 16 04/25/24 06:55 BP 117/73 04/25/24 06:55 Pulse Ox 96 04/25/24 06:55 FiO2 Intake & Output 04/24/24 04/25/24 04/25/24 18:59 06:59 18:59 Other: # Voids 4 2 - Exam - Constitutional General appearance: disheveled, morbidly obese, no acute distress, obese - EENT Eyes: EOMI, PERRLA ENT: normal oropharynx Ears: bilateral: normal - Neck Carotids: bilateral: upstroke normal Thyroid: bilateral: normal size - Respiratory Respiratory: bilateral: CTA - Cardiovascular Rhythm: regular Heart sounds: normal: S1, S2 - Gastrointestinal General gastrointestinal: normal bowel sounds - Integumentary Integumentary: normal turgor - Neurologic Neurologic: CNII-XII intact - Musculoskeletal Musculoskeletal: gait normal, generalized weakness, strength equal bilaterally - Psychiatric Psychiatric: A&O x's 3 - Labs CBC & Chem 7: 04/22/24 06:26 04/22/24 06:26 Labs: Microbiology - Last 24 Hours (Table) 04/21/24 20:27 Blood Culture - Preliminary Blood 04/21/24 01:45 Blood Culture - Preliminary Blood Assessment and Plan Assessment: Generalized aches and pain related to fall however no acute fracture identified COPD not in exacerbation, continue bronchodilator would avoid steroids Abnormal CT and CAT scan due to basal scarring atelectasis subsegmental level, patient recommended to continue deep breathing exercises incentive spirometry will monitor observe follow-up as outpatient for PFT and repeat CT scan Acute bronchitis, patient to complete 5-day therapy Smoking and nicotine use patient has been counseled about smoking cessation History of DVT PE, no PE seen on CAT scan review, continue direct oral anticoagulant History of recurrent seizures, patient since admission has been seizure-free Chronic pain syndrome, will defer pain management to primary service Major depression, continue antidepressant Plan: As above Patient was being planned for discharge as per primary service but however due to fall having severe generalized pain has been crying we will get IV access under ultrasound guidance Time with Patient: Greater than 30
[2024-04-25 14:42] LABS: Glucose,Whole Blood 188 mg/dL (70-110)
[2024-04-25] MEDS: HYDROmorphone 0.5 MG/0.5 ML SYRINGE IVP STA (15:16)
--- NOTE | 2024-04-26 10:06 | P.PN ---
Subjective Progress Note Date: 04/26/24 Principal diagnosis: COPD not in exacerbation, continue bronchodilator would avoid steroids Abnormal CT and CAT scan due to basal scarring atelectasis subsegmental level, patient recommended to continue deep breathing exercises incentive spirometry will monitor observe follow-up as outpatient for PFT and repeat CT scan Acute bronchitis, patient to complete 5-day therapy Smoking and nicotine use patient has been counseled about smoking cessation History of DVT PE, no PE seen on CAT scan review, continue direct oral anticoagulant History of recurrent seizures, patient since admission has been seizure-free Chronic pain syndrome, will defer pain management to primary service Major depression, continue antidepressant April 26, 2024, patient seen eval examined during rounds labs reviewed medication care plan discussed, patient had seizure yesterday required IV Valium as well as Ativan to break the seizure, patient has history of traumatic brain injury and bioccipital headache and chronic migraine headache which precipitated the seizure, patient was not with IV access and medications including pain medicines were delayed. There are some slit jessica on the wrist present bilaterally vertical made with wrist patient claims that she was trying to cut a bracelet. Yesterday however when she was upset she made a remark with nurse that she wants to kill herself. Currently patient is with a sitter, psych has been consulted will consult pain management as well. Labs not done. Medications include [place] 7.53 times a day scheduled, DuoNeb as needed, Lipitor 40 mg daily, Bumex 1 mg once daily, BuSpar, Valium as needed for muscle spasm, Benadryl 25 4 times a day which is not helping requesting to increase it to 50 mg that is what she takes at home, Florinef 0.1 mg daily Neurontin 600 mg p.o. 4 times a day. Patient takes Dilaudid 0.256 hourly as needed with 0.5 every 4 hourly for breakthrough pain, Solu-Medrol is 125 every 6 hourly, metoprolol midodrine Zofran she is on hydrocortisone 20 mg 2 times a day would recommend DC Solu-Medrol 125 every 8 hourly may be contributing to her change in behavior mental status April 25, 2024, patient seen eval examined during rounds labs reviewed medications and care plan discussed, overall no significant changes still have ongoing intermittent pain generalized aches and pains present, we are oxygen saturation 93% hemodynamic status stable patient remains afebrile. She remains on bronchodilator as well as continuation of her home medications patient also on high-dose IV steroids blood cultures negative patient has been evaluated by orthopedics after a fall, no fractures seen and no surgical intervention recommended patient is being planned for discharge however patient due to fall having severe generalized body pain and aches does not want to go to the hospital due to pain, IV is out patient will need ultrasound-guided IV requested RN to put 1 59-year-old female presenting to the emergency department with acute episode of seizure with history of prior recurrent seizure mostly associated with hypokalemia and electrolyte disturbance, patient of note that has a chronic history of pain and dependence on pain medicine, patient while eating dinner developed severe pain, generalized in nature followed by episode of seizure, she was brought into the emergency department with EMS at that time she was not actively seizing was awake and alert. Patient has prior history of DVT PE has been on long acting oral anticoagulants, and emergency department vitals were stable she was awake alert, patient did receive 5 mg of Versed IV prior to arrival where another 5 mg right after arrival, that has aborted the seizure. Patient has history of prior pseudoseizures as well recently she was diagnosed with pneumonia as completed IV antibiotic. CT scan no evidence of PE, distal esophageal thickening was noted suggestive of esophagitis, basal scarring and atelectasis of lower lobes seen subsegmental level, no active infiltrate identified, intact pacing device over the right side with loop recorder extending towards the heart, brain CT no active abnormality identified, patient had a repeat chest x-ray no significant finding seen essentially unchanged. Currently patient being managed with bronchodilators continuation of direct oral anticoagulant, IV antibiotics to cover atypical pneumonia/bronchitis with Zithromax and continuation of home medicine and potassium replacement. Labs include CBC within normal limit with normal coags, patient has evidence of electrolyte imbalance on arrival with sodium of 134 potassium 3.9 CO2 31 lactic acid of 2.8 however his repeat lactic acid is now within normal limit potassium improved to 4.8 BUN/creatinine improved to 21/1 from 31/05.09, urinalysis un remarkable, urine Legionella antigen was negative Other active medical problems include dyslipidemia, major depression, DVT PE on direct acting oral anticoagulant, chronic hypotension takes Florinef, intermittent hypertension takes beta-verónica, prior history of C. difficile colitis, RLS, Objective - Vital Signs Vital signs: Vital Signs Temp 97.7 F 04/26/24 08:06 Pulse 75 04/26/24 08:06 Resp 17 04/26/24 08:06 BP 125/75 04/26/24 08:06 Pulse Ox 95 04/26/24 08:06 FiO2 Intake & Output 04/25/24 04/26/24 04/26/24 18:59 06:59 18:59 Intake Total 520 Output Total 2 Balance 520 -2 Intake: Oral 520 Output: Stool 2 Other: Voiding Method Bedpan # Voids 3 2 - Exam - Constitutional General appearance: disheveled, morbidly obese, no acute distress, obese - EENT Eyes: EOMI, PERRLA ENT: normal oropharynx Ears: bilateral: normal - Neck Carotids: bilateral: upstroke normal Thyroid: bilateral: normal size - Respiratory Respiratory: bilateral: CTA - Cardiovascular Rhythm: regular Heart sounds: normal: S1, S2 - Gastrointestinal General gastrointestinal: normal bowel sounds - Integumentary Integumentary: normal turgor - Neurologic Neurologic: CNII-XII intact - Musculoskeletal Musculoskeletal: gait normal, generalized weakness, strength equal bilaterally - Psychiatric Psychiatric: A&O x's 3 - Labs CBC & Chem 7: 04/22/24 06:26 04/22/24 06:26 Labs: Abnormal Lab Results - Last 24 Hours (Table) 04/25/24 Range/Units 14:40 POC Glucose (mg/dL) 188 H (70-110) mg/dL Microbiology - Last 24 Hours (Table) 04/21/24 20:27 Blood Culture - Preliminary Blood Assessment and Plan Assessment: Chronic pain syndrome mainly cephalgia related to traumatic brain injury herniated disc and migraine headache, reviewed pain medicine will consult pain management services as well Attempted suicide with suicidal ideation thoughts, patient has a bedside sitter with psych consult pending Generalized aches and pain related to fall however no acute fracture identified COPD not in exacerbation, continue bronchodilator would avoid steroids Abnormal CT and CAT scan due to basal scarring atelectasis subsegmental level, patient recommended to continue deep breathing exercises incentive spirometry will monitor observe follow-up as outpatient for PFT and repeat CT scan Acute bronchitis, patient to complete 5-day therapy Smoking and nicotine use patient has been counseled about smoking cessation History of DVT PE, no PE seen on CAT scan review, continue direct oral anticoagu lant History of recurrent seizures, patient since admission has been seizure-free Chronic pain syndrome, will defer pain management to primary service Major depression, continue antidepressant Plan: As above As above will DC IV steroids increase Benadryl to 50 mg every 8 hourly as needed Time with Patient: Greater than 30
[2024-04-26] MEDS ORDERED: diphenhydrAMINE 50 MG/ML 1 ML VIAL IVP PRN (10:07)
[2024-04-26] MEDS: diphenhydrAMINE 50 MG/ML 1 ML VIAL IVP STA (11:04)
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
[2024-04-26 15:11] VITALS: BMI 30.2
[2024-04-26] MEDS: diphenhydrAMINE 50 MG/ML 1 ML VIAL IVP PRN (17:21)
[2024-04-26] MEDS: IPRATROPIUM-ALBUTEROL 3 ML NEB INHALATION PRN (20:08)
[2024-04-26] MEDS: QUEtiapine 50 MG TAB PO SCH (20:17)
--- NOTE | 2024-04-27 11:31 | P.PN ---
Subjective Progress Note Date: 04/27/24 Principal diagnosis: COPD not in exacerbation, continue bronchodilator would avoid steroids Abnormal CT and CAT scan due to basal scarring atelectasis subsegmental level, patient recommended to continue deep breathing exercises incentive spirometry will monitor observe follow-up as outpatient for PFT and repeat CT scan Acute bronchitis, patient to complete 5-day therapy Smoking and nicotine use patient has been counseled about smoking cessation History of DVT PE, no PE seen on CAT scan review, continue direct oral anticoagulant History of recurrent seizures, patient since admission has been seizure-free Chronic pain syndrome, will defer pain management to primary service Major depression, continue antidepressant April 27, 2024, patient seen eval examined during rounds labs reviewed medications reviewed, patient continue to have chronic pain syndrome also anx iety, patient is being evaluated by psychiatry service felt that patient does not meet inpatient psychiatric admission, medication changes recommended including adding Seroquel at bedtime continuing Zoloft BuSpar and Neurontin and sitter has been discontinued psychiatry has recommended social staff worker to provide outpatient mental and psychiatry resources and health April 26, 2024, patient seen eval examined during rounds labs reviewed medication care plan discussed, patient had seizure yesterday required IV Valium as well as Ativan to break the seizure, patient has history of traumatic brain injury and bioccipital headache and chronic migraine headache which precipitated the seizure, patient was not with IV access and medications including pain medicines were delayed. There are some slit jessica on the wrist present bilaterally vertical made with wrist patient claims that she was trying to cut a bracelet. Yesterday however when she was upset she made a remark with nurse that she wants to kill herself. Currently patient is with a sitter, psych has been consulted will consult pain management as well. Labs not done. Medications include [place] 7.53 times a day scheduled, DuoNeb as needed, Lipitor 40 mg daily, Bumex 1 mg once daily, BuSpar, Valium as needed for muscle spasm, Benadryl 25 4 times a day which is not helping requesting to increase it to 50 mg that is what she takes at home, Florinef 0.1 mg daily Neurontin 600 mg p.o. 4 times a day. Patient takes Dilaudid 0.256 hourly as needed with 0.5 every 4 hourly for breakthrough pain, Solu-Medrol is 125 every 6 hourly, metoprolol midodrine Zofran she is on hydrocortisone 20 mg 2 times a day would recommend DC Solu-Medrol 125 every 8 hourly may be contributing to her change in behavior mental status April 25, 2024, patient seen eval examined during rounds labs reviewed medications and care plan discussed, overall no significant changes still have ongoing intermittent pain generalized aches and pains present, we are oxygen saturation 93% hemodynamic status stable patient remains afebrile. She remains on bronchodilator as well as continuation of her home medications patient also on high-dose IV steroids blood cultures negative patient has been evaluated by orthopedics after a fall, no fractures seen and no surgical intervention recommended patient is being planned for discharge however patient due to fall having severe generalized body pain and aches does not want to go to the hospital due to pain, IV is out patient will need ultrasound-guided IV requested RN to put 1 59-year-old female presenting to the emergency department with acute episode of seizure with history of prior recurrent seizure mostly associated with hypokalemia and electrolyte disturbance, patient of note that has a chronic hist ory of pain and dependence on pain medicine, patient while eating dinner developed severe pain, generalized in nature followed by episode of seizure, she was brought into the emergency department with EMS at that time she was not actively seizing was awake and alert. Patient has prior history of DVT PE has been on long acting oral anticoagulants, and emergency department vitals were stable she was awake alert, patient did receive 5 mg of Versed IV prior to arrival where another 5 mg right after arrival, that has aborted the seizure. Patient has history of prior pseudoseizures as well recently she was diagnosed with pneumonia as completed IV antibiotic. CT scan no evidence of PE, distal es ophageal thickening was noted suggestive of esophagitis, basal scarring and atelectasis of lower lobes seen subsegmental level, no active infiltrate identified, intact pacing device over the right side with loop recorder extending towards the heart, brain CT no active abnormality identified, patient had a repeat chest x-ray no significant finding seen essentially unchanged. Currently patient being managed with bronchodilators continuation of direct oral anticoagulant, IV antibiotics to cover atypical pneumonia/bronchitis with Zithromax and continuation of home medicine and potassium replacement. Labs include CBC within normal limit with normal coags, patient has evidence of electrolyte imbalance on arrival with sodium of 134 potassium 3.9 CO2 31 lactic acid of 2.8 however his repeat lactic acid is now within normal limit potassium improved to 4.8 BUN/creatinine improved to 21/1 from 30/1.09, urinalysis unremarkable, urine Legionella antigen was negative Other active medical problems include dyslipidemia, major depression, DVT PE on direct acting oral anticoagulant, chronic hypotension takes Florinef, intermittent hypertension takes beta-verónica, prior history of C. difficile col itis, RLS, Objective - Vital Signs Vital signs: Vital Signs Temp 97.1 F L 04/27/24 08:00 Pulse 74 04/27/24 08:06 Resp 18 04/27/24 08:00 BP 111/73 04/27/24 08:00 Pulse Ox 97 04/27/24 08:00 FiO2 Intake & Output 04/26/24 04/27/24 04/27/24 18:59 06:59 18:59 Intake Total 550 540 Balance 550 540 Weight 74.843 kg Intake: Oral 550 540 Other: Voiding Method Bedpan # Voids 2 3 - Exam - Constitutional General appearance: disheveled, morbidly obese, no acute distress, obese - EENT Eyes: EOMI, PERRLA ENT: normal oropharynx Ears: bilateral: normal - Neck Carotids: bilateral: upstroke normal Thyroid: bilateral: normal size - Respiratory Respiratory: bilateral: CTA - Cardiovascular Rhythm: regular Heart sounds: normal: S1, S2 - Gastrointestinal General gastrointestinal: normal bowel sounds - Integumentary Integumentary: normal turgor - Neurologic Neurologic: CNII-XII intact - Musculoskeletal Musculoskeletal: gait normal, generalized weakness, strength equal bilaterally - Psychiatric Psychiatric: A&O x's 3 - Labs CBC & Chem 7: 04/22/24 06:26 04/22/24 06:26 Labs: Microbiology - Last 24 Hours (Table) 04/21/24 01:45 Blood Culture - Final Blood Assessment and Plan Assessment: Chronic pain syndrome mainly cephalgia related to traumatic brain injury herniated disc and migraine headache, reviewed pain medicine will consult pain management services as well Attempted suicide with suicidal ideation thoughts, patient has a bedside sitter with psych consult evaluated the patient recommended to discontinue 24-hour sit ter and adjustment medicine as noted above Generalized aches and pain related to fall however no acute fracture identified COPD not in exacerbation, continue bronchodilator would avoid steroids Abnormal CT and CAT scan due to basal scarring atelectasis subsegmental level, patient recommended to continue deep breathing exercises incentive spirometry will monitor observe follow-up as outpatient for PFT and repeat CT scan Acute bronchitis, patient to complete 5-day therapy Smoking and nicotine use patient has been counseled about smoking cessation History of DVT PE, no PE seen on CAT scan review, continue direct oral anticoagulant History of recurrent seizures, patient since admission has been seizure-free Chronic pain syndrome, will defer pain management to primary service Major depression, continue antidepressant Plan: As above Time with Patient: Greater than 30
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
[2024-04-27] MEDS ORDERED: ROPIVACAINE 5MG/ML 20ML VIAL ONE (16:14)
[2024-04-27] MEDS ORDERED: methylPREDNISolone ACETATE 40 MG/ML 1 ML VIAL ONE (16:14)
--- NOTE | 2024-04-27 16:32 | P.PCN ---
Date of Procedure: 04/27/24 Procedure(s) Performed: Preoperative diagnoses= 1- Greater occipital neuralgia. 2-cervicogenic headache Postoperative diagnoses= 1-greater occipital neuralgia. 2-cervicogenic headache Procedure= Bilateral Greater occipital nerve block Anesthesia= moderate sedation with Versed 2 mg Sedation start time : 1625 . Sedation end time :1627 . Estimated blood loss=minimal. Procedure indication= the patient had a history of severe chronic neck pain ,and headache, diagnosed with occipital neuralgia exam was positive for severe tenderness over the occipital nerve bilaterally, she will be a good candidate occipital nerve block, patient failed conservative management Procedure description= the patient was seen and identified in the preoperative holding area, risks and benefits and alternative of the procedure and possible complications discussed with the patient, and he agreed with the preceding, patient signed the consent, an IV was started, and vital signs were monitored and were stable throughout the procedure, patient was placed in the sitting p osition or table and the neck area was prepped and draped with a sterile fashion, vital signs were closely monitored during the procedure, 25-gauge needle advanced 1 inch lateral to the occipital protuberance on the right side, at the location of the right occipital nerve , then after negative aspiration for heme and CSF and there was no paresthesia during the injection, 6 ml of Robivacaine 0.5% and 20 mg of Depo-Medrol injected after negative aspiration, the needle removed, and the entire same procedure was repeated for the left Greater occipital nerve. Patient tolerated the procedure well without any complication, The patient returned to supine position after the back was cleaned and a Band- Aid applied, the patient transported to recovery room in stable condition and he was monitored for 30 minutes before he was discharged home and then patient was reexamined before going home and patient was discharged in stable condition and patient will follow up with the pain clinic in a few weeks.
[2024-04-27] MEDS: ONDANSETRON 4 MG TAB PO PRN (18:33)
--- NOTE | 2024-04-28 09:15 | P.PN ---
Subjective Progress Note Date: 04/28/24 Principal diagnosis: COPD not in exacerbation, continue bronchodilator would avoid steroids Abnormal CT and CAT scan due to basal scarring atelectasis subsegmental level, patient recommended to continue deep breathing exercises incentive spirometry will monitor observe follow-up as outpatient for PFT and repeat CT scan Acute bronchitis, patient to complete 5-day therapy Smoking and nicotine use patient has been counseled about smoking cessation History of DVT PE, no PE seen on CAT scan review, continue direct oral anticoagulant History of recurrent seizures, patient since admission has been seizure-free Chronic pain syndrome, will defer pain management to primary service Major depression, continue antidepressant April 28, 2024, patient is status post nerve block and occipital area by pain service, tolerated very well, however still wants pain medicine patient is afebrile with stable hemodynamics oxygen saturation 95% labs not done today medications reviewed continue on [place] and Dilaudid April 27, 2024, patient seen eval examined during rounds labs reviewed medications reviewed, patient continue to have chronic pain syndrome also anxiety, patient is being evaluated by psychiatry service felt that patient does not meet inpatient psychiatric admission, medication changes recommended including adding Seroquel at bedtime continuing Zoloft BuSpar and Neurontin and sitter has been discontinued psychiatry has recommended health social work professor to provide outpatient mental and psychiatry resources and health April 26, 2024, patient seen eval examined during rounds labs reviewed medication care plan discussed, patient had seizure yesterday required IV Valium as well as Ativan to break the seizure, patient has history of traumatic brain injury and bioccipital headache and chronic migraine headache which precipitated the seizure, patient was not with IV access and medications including pain medicines were delayed. There are some slit jessica on the wrist present bilaterally vertical made with wrist patient claims that she was trying to cut a bracelet. Yesterday however when she was upset she made a remark with nurse that she wants to kill herself. Currently patient is with a sitter, psych has been consulted will consult pain management as well. Labs not done. Medications include [place] 7.53 times a day scheduled, DuoNeb as needed, Lipitor 40 mg daily, Bumex 1 mg once daily, BuSpar, Valium as needed for muscle spasm, Benadryl 25 4 times a day which is not helping requesting to increase it to 50 mg that is what she takes at home, Florinef 0.1 mg daily Neurontin 600 mg p.o. 4 times a day. Patient takes Dilaudid 0.256 hourly as needed with 0.5 every 4 hourly for breakthrough pain, Solu-Medrol is 125 every 6 hourly, metoprolol midodrine Zofran she is on hydrocortisone 20 mg 2 times a day would recommend DC Solu-Medrol 125 every 8 hourly may be contributing to her change in behavior mental status April 25, 2024, patient seen eval examined during rounds labs reviewed medications and care plan discussed, overall no significant changes still have ongoing intermittent pain generalized aches and pains present, we are oxygen sat uration 93% hemodynamic status stable patient remains afebrile. She remains on bronchodilator as well as continuation of her home medications patient also on high-dose IV steroids blood cultures negative patient has been evaluated by orthopedics after a fall, no fractures seen and no surgical intervention recommended patient is being planned for discharge however patient due to fall having severe generalized body pain and aches does not want to go to the hospital due to pain, IV is out patient will need ultrasound-guided IV requested RN to put 1 59-year-old female presenting to the emergency department with acute episode of seizure with history of prior recurrent seizure mostly associated with hypokalemia and electrolyte disturbance, patient of note that has a chronic history of pain and dependence on pain medicine, patient while eating dinner developed severe pain, generalized in nature followed by episode of seizure, she was brought into the emergency department with EMS at that time she was not actively seizing was awake and alert. Patient has prior history of DVT PE has been on long acting oral anticoagulants, and emergency department vitals were stable she was awake alert, patient did receive 5 mg of Versed IV prior to arrival where another 5 mg right after arrival, that has aborted the seizure. Patient has history of prior pseudoseizures as well recently she was diagnosed with pneumonia as completed IV antibiotic. CT scan no evidence of PE, distal esophageal thickening was noted suggestive of esophagitis, basal scarring and atelectasis of lower lobes seen subsegmental level, no active infiltrate identified, intact pacing device over the right side with loop recorder extending towards the heart, brain CT no active abnormality identified, patient had a repeat chest x-ray no significant finding seen essentially unchanged. Currently patient being managed with bronchodilators continuation of direct oral anticoagulant, IV antibiotics to cover atypical pneumonia/bronchitis with Zithromax and continuation of home medicine and potassium replacement. Labs include CBC within normal limit with normal coags, patient has evidence of electrolyte imbalance on arrival with sodium of 134 potassium 3.9 CO2 31 lactic acid of 2.8 however his repeat lactic acid is now within normal limit potassium improved to 4.8 BUN/creatinine improved to 21/1 from 30.09, urinalysis unremarkable, urine Legionella antigen was negative Other active medical problems include dyslipidemia, major depression, DVT PE on direct acting oral anticoagulant, chronic hypotension takes Florinef, intermittent hypertension takes beta-verónica, prior history of C. difficile colitis, RLS, Objective - Vital Signs Vital signs: Vital Signs Temp 98.3 F 04/28/24 00:23 Pulse 71 04/28/24 00:23 Resp 12 04/28/24 02:39 BP 103/72 04/28/24 00:23 Pulse Ox 95 04/28/24 00:23 FiO2 Intake & Output 04/27/24 04/28/24 04/28/24 18:59 06:59 18:59 Other: # Voids 3 1 - Exam - Constitutional General appearance: disheveled, morbidly obese, no acute distress, obese - EENT Eyes: EOMI, PERRLA ENT: normal oropharynx Ears: bilateral: normal - Neck Carotids: bilateral: upstroke normal Thyroid: bilateral: normal size - Respiratory Respiratory: bilateral: CTA - Cardiovascular Rhythm: regular Heart sounds: normal: S1, S2 - Gastrointestinal General gastrointestinal: normal bowel sounds - Integumentary Integumentary: normal turgor - Neurologic Neurologic: CNII-XII intact - Musculoskeletal Musculoskeletal: gait normal, generalized weakness, strength equal bilaterally - Psychiatric Psychiatric: A&O x's 3 - Labs CBC & Chem 7: 04/22/24 06:26 04/22/24 06:26 Labs: Microbiology - Last 24 Hours (Table) 04/21/24 20:27 Blood Culture - Final Blood Assessment and Plan Assessment: Chronic pain syndrome mainly cephalgia related to traumatic brain injury hernia reynold disc and migraine headache, recommendation reviewed from pain service, patient is status post occipital block Attempted suicide with suicidal ideation thoughts, patient has a bedside sitter with psych consult evaluated the patient recommended to discontinue 24-hour sitter and adjustment medicine as noted above Generalized aches and pain related to fall however no acute fracture identified COPD not in exacerbation, continue bronchodilator would avoid steroids Abnormal CT and CAT scan due to basal scarring atelectasis subsegmental level, patient recommended to continue deep breathing exercises incentive spirometry will monitor observe follow-up as outpatient for PFT and repeat CT scan Acute bronchitis, patient to complete 5-day therapy Smoking and nicotine use patient has been counseled about smoking cessation History of DVT PE, no PE seen on CAT scan review, continue direct oral anticoagulant History of recurrent seizures, patient since admission has been seizure-free Chronic pain syndrome, will defer pain management to primary service Major depression, continue antidepressant Plan: As above Time with Patient: Greater than 30
[2024-04-28] MEDS: HYDROmorphone 1 MG/ML 1 ML SYRINGE IVP STA (10:14)
[2024-04-28] MEDS: LORazepam 2 MG/ML INJ IM STA (15:47)
[2024-04-28 16:34] LABS: Basophils % (A) 0 %; Eosinophils # (A) 0.1 k/uL (0-0.7); Eosinophils % (A) 1 %; HCT 40.5 % (34.0-46.0); Hypochromasia Slight; Lymphocytes # (A) 0.7 k/uL (1.0-4.8); Lymphocytes % (A) 8 %; MCV 93.7 fL (80.0-100.0); Mean Platelet Volume 7.3; Monocytes # (A) 0.5 k/uL (0-1.0); Monocytes % (A) 5 %; Neutrophils # (A) 7.9 k/uL (1.3-7.7); Neutrophils % (A) 85 %; Platelet Count 252 k/uL (150-450); RBC 4.32 m/uL (3.80-5.40); RDW 15.2 % (11.5-15.5); WBC 9.4 k/uL (3.8-10.6)
[2024-04-28 16:57] LABS: ALT 35 U/L (4-34); African American GFR (CKD) 53 (>60 ml/min/1.73 sqM); Albumin 4.2 g/dL (3.5-5.0); Albumin/Globulin Ratio 1.7; Anion Gap 10 mmol/L; Blood Urea Nitrogen 25 mg/dL (7-17); Calcium 8.9 mg/dL (8.4-10.2); Carbon Dioxide 24 mmol/L (22-30); Chloride 104 mmol/L (98-107); Globulin 2.5 g/dL; Glucose 98 mg/dL (74-99); Non-African American GFR(CKD) 46 (>60 ml/min/1.73 sqM); Sodium 138 mmol/L (137-145); Total Bilirubin 0.4 mg/dL (0.2-1.3); Total Protein 6.7 g/dL (6.3-8.2)
[2024-04-28 17:17] LABS: AST 65 U/L (14-36); Magnesium 2.4 mg/dL (1.6-2.3)
[2024-04-28 17:18] LABS: Alkaline Phosphatase 42 U/L (38-126)
[2024-04-29] MEDS: LORazepam 2 MG/ML INJ IV PRN (11:40)
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
[2024-04-29 13:10] LABS: Basophils % (A) 0 %; Eosinophils # (A) 0.1 k/uL (0-0.7); Eosinophils % (A) 1 %; HCT 41.7 % (34.0-46.0); HGB 13.2 gm/dL (11.4-16.0); Hypochromasia Slight; Lymphocytes # (A) 0.6 k/uL (1.0-4.8); Lymphocytes % (A) 6 %; MCH 29.7 pg (25.0-35.0); MCHC 31.7 g/dL (31.0-37.0); MCV 93.7 fL (80.0-100.0); Mean Platelet Volume 7.2; Monocytes # (A) 0.4 k/uL (0-1.0); Monocytes % (A) 4 %; Neutrophils # (A) 9.1 k/uL (1.3-7.7); Neutrophils % (A) 88 %; Platelet Count 232 k/uL (150-450); RBC 4.46 m/uL (3.80-5.40); WBC 10.3 k/uL (3.8-10.6)
[2024-04-29 13:20] LABS: ALT 32 U/L (4-34); AST 59 U/L (14-36); African American GFR (CKD) 64 (>60 ml/min/1.73 sqM); Albumin 4.1 g/dL (3.5-5.0); Albumin/Globulin Ratio 1.7; Alkaline Phosphatase 61 U/L (38-126); Anion Gap 6 mmol/L; Blood Urea Nitrogen 20 mg/dL (7-17); Calcium 8.9 mg/dL (8.4-10.2); Carbon Dioxide 29 mmol/L (22-30); Chloride 100 mmol/L (98-107); Globulin 2.4 g/dL; Glucose 118 mg/dL (74-99); Magnesium 2.2 mg/dL (1.6-2.3); Non-African American GFR(CKD) 56 (>60 ml/min/1.73 sqM); Phosphorus 3.9 mg/dL (2.5-4.5); Potassium 4.5 mmol/L (3.5-5.1); Sodium 135 mmol/L (137-145); Total Bilirubin 0.4 mg/dL (0.2-1.3); Total Protein 6.5 g/dL (6.3-8.2)
--- NOTE | 2024-04-30 07:55 | XR ---
EXAMINATION TYPE: XR chest 1V portable DATE OF EXAM: 04/30/2024 7:22 AM COMPARISON: 04/22/2024 CLINICAL INDICATION: Female, 59 years old with history of pneumonia, TECHNIQUE: XR chest 1V portable view(s) obtained. FINDINGS: The heart size is enlarged. Pacemaker overlies the right chest. Prior aortic valve surgery is eviden t. Loop recorder over the left chest The pulmonary vasculature is normal. The lungs are clear. Old left rib fractures evident. IMPRESSION: 1. No acute pulmonary process. 2. Cardiomegaly [facility], , 04/30/2024 7:53 AM
[2024-04-30] MEDS ORDERED: HYDROmorphone 0.5 MG/0.5 ML SYRINGE IVP PRN (12:44)
--- NOTE | 2024-04-30 13:21 | XR ---
EXAMINATION TYPE: XR Hip LT and AP Pelvis DATE OF EXAM: 04/30/2024 1:16 PM INDICATION: Patient age:Female; 59 years old; Reason for study: fall; PHH. pain COMPARISON: CT lumbar spine 02/29/2024, lumbar spine radiograph 12/26/2023, CT abdomen and pelvis 10/14 TECHNIQUE: The left hip was examined in the frontal and lateral projections and a AP pelvis. FINDINGS: No evidence of any acute osseous pathology, joint dislocation, or soft tissue swelling. Pos t surgical changes with bilateral pedicular screws and rods involving the visualized lumbar spine and crossing the bilateral SI joints. Hardware appears intact. IMPRESSION: 1. No acute osseous pathology. 2. Post surgical changes from lumbosacral fusion. [facility], , 04/30/2024 1:18 PM
[2024-04-30] MEDS: HYDROmorphone 1 MG/ML 1 ML SYRINGE IVP PRN (13:36)
--- NOTE | 2024-04-30 20:02 | P.PN ---
Progress Note - Text Progress Note Date: 04/30/24 Patient continued to have severe neck localized in the occipital area with radiation to the top of the head, patient had mild benefit from the occipital nerve block done few days ago, I recommend to start patient on Fioricet with codeine 1 tablet p.o. every 4 hours, continue the rest of the medication as prescribed
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
--- NOTE | 2024-05-01 07:44 | XR ---
EXAMINATION TYPE: XR chest 1V portable DATE OF EXAM: 05/01/2024 6:52 AM COMPARISON: 04/30/2024 CLINICAL INDICATION: Female, 59 years old with history of pneumonia, TECHNIQUE: XR chest 1V portable view(s) obtained. FINDINGS: The heart size is Enlarged. Pacemaker overlies the right chest. Postcardiac valve surgery is evident The pulmonary vasculature is normal. There is a consolidation in the left lower lung field. Findings are developing from prior study. Fidelina elate for atelectasis or pneumonia IMPRESSION: 1. Developing left lower lobe infiltrate. Correlate for atelectasis or pneumonia. Follow-up is recomm ended [facility], , 05/01/2024 7:42 AM
[2024-05-01] MEDS: BUTA/APAP/CAF/COD 50-325-40-30 CAP PO PRN (13:06)
[2024-05-01 15:25] VITALS: BP 96/59; PULSE 71; RESP 18; TEMP 99
== END 2024-05-01 18:23 | disposition home or self-care (01) | DRG 101 ==
LOC: EC 19:59 → 4SSUR 04-21 00:44 → EEVIPCON 04-21 00:44 → OBSVTOIN 04-21 00:44 → 4SSUR 04-21 01:18
PROVIDERS: ADMIT Family Medicine; ATTEND Family Medicine
PROC: 3E0T33Z Introduction of Anti-inflammatory into Peripheral Nerves and Plexi, Percutaneous Approach (ICD-10-PCS; 2024-04-27)
PROC: 3E0T3BZ Introduction of Anesthetic Agent into Peripheral Nerves and Plexi, Percutaneous Approach (ICD-10-PCS; principal; 2024-04-27 14:30)
DX: G40.909 Epilepsy, unspecified, not intractable, without status epilepticus (principal); D68.61 Antiphospholipid syndrome; E27.40 Unspecified adrenocortical insufficiency; J44.0 Chronic obstructive pulmonary disease with (acute) lower respiratory infection; R45.851 Suicidal ideations; E66.01 Morbid (severe) obesity due to excess calories; F60.89 Other specific personality disorders; F32.9 Major depressive disorder, single episode, unspecified; Z68.30 Body mass index [BMI] 30.0-30.9, adult; Z95.3 Presence of xenogenic heart valve; M54.81 Occipital neuralgia; G44.86 Cervicogenic headache; K20.90 Esophagitis, unspecified without bleeding; J20.9 Acute bronchitis, unspecified; G89.4 Chronic pain syndrome; F17.210 Nicotine dependence, cigarettes, uncomplicated; F41.9 Anxiety disorder, unspecified; E87.6 Hypokalemia; E78.5 Hyperlipidemia, unspecified; S63.501A Unspecified sprain of right wrist, initial encounter; S83.91XA Sprain of unspecified site of right knee, initial encounter; S93.601A Unspecified sprain of right foot, initial encounter; Z79.891 Long term (current) use of opiate analgesic; Z79.01 Long term (current) use of anticoagulants; M50.20 Other cervical disc displacement, unspecified cervical region; I51.7 Cardiomegaly; W18.30XA Fall on same level, unspecified, initial encounter; Y92.230 Patient room in hospital as the place of occurrence of the external cause; Z79.899 Other long term (current) drug therapy; I25.2 Old myocardial infarction; Z91.51 Personal history of suicidal behavior; Z86.711 Personal history of pulmonary embolism; Z86.718 Personal history of other venous thrombosis and embolism; Z87.820 Personal history of traumatic brain injury; Z91.414 Personal history of adult intimate partner abuse; Z87.81 Personal history of (healed) traumatic fracture; Z95.0 Presence of cardiac pacemaker; Z79.52 Long term (current) use of systemic steroids; Z79.51 Long term (current) use of inhaled steroids
CPT/HCPCS: 36410; 36415; 64405; 70450; 71045; 71046; 71275; 73502; 76937; 80053; 81003; 82533; 83605; 83690; 83735; 84100; 84146; 84484; 85025; 85610; 85730; 87040; 87449; 93005; 94640; 94760; 96361; 96374; 96375; 96376; 99285

== ENCOUNTER 2024-05-02 15:10 | Emergency (ER) | payer MEDICARE ==
--- NOTE | 2024-05-02 16:13 | ED ---
Fever HPI - General Chief Complaint: Fever Stated Complaint: AMS Time Seen by Provider: 05/02/24 16:12 Source: patient, EMS, RN notes reviewed, old records reviewed Mode of arrival: EMS Limitations: no limitations - History of Present Illness Initial Comments: Patient is a 59-year-old female with a past medical history significant of renal disease, seizure disorder and blood disorder presenting to the ER for evaluation of fevers and feeling unwell. Patient was discharged yesterday after being admitted for 11 days for evaluation of chest discomfort. She states she woke up this morning and felt unwell. She took her temperature and found it to be 103 for which she took 1000mg of acetaminophen. She states throughout the day she continued to feel unwell which prompted her to present to the ER for evaluation. Last dose of Tylenol was around 10 AM. Patient also reports a mild headache but states this is similar to headaches in the past. She does admit to having an occipital block performed on last admission. She admits to a mild cough and congestion. She denies chest pain, shortness of breath, abdominal pain, constipation/diarrhea, urinary complaints or peripheral edema out of the norm. - Related Data Home Medications Medication Instructions Recorded Confirmed Atorvastatin [Lipitor] 40 mg PO HS 09/24/21 04/21/24 Sertraline [Zoloft] 200 mg PO DAILY 09/24/21 04/21/24 Apixaban [Eliquis] 5 mg PO BID 05/29/22 04/21/24 busPIRone HCl [Buspar] 5 mg PO BID 06/11/22 04/21/24 Fludrocortisone [Florinef] 0.1 mg PO DAILY 09/20/22 04/21/24 Metoprolol Succinate (ER) [Toprol 50 mg PO DAILY 02/16/23 04/21/24 XL] rOPINIRole HCL [Requip] 2 mg PO HS 04/28/23 04/21/24 Bumetanide [BUMEX] 1 mg PO HS 08/12/23 04/21/24 Spironolactone [Aldactone] 50 mg PO HS 08/12/23 04/21/24 Budesonide/Glycopyr/Formoterol 2 puff INHALATION RT-BID 12/26/23 04/21/24 [Breztri Aerosphere Inhaler] Gabapentin 600 mg PO QID@09,13,17,21 08/26/24 12/21/24 Midodrine [ProAmatine] 5 mg PO TID PRN 12/26/23 04/21/24 Ondansetron [Zofran] 4 mg PO TID PRN 12/26/23 04/21/24 Vitamin B-6(Unknown) 1 tab PO DAILY 12/26/23 04/21/24 Vitamin D3(Unknown) 1 tab PO DAILY 12/26/23 04/21/24 HYDROcodone/APAP 7.5-325MG [[place] 1 tab PO TID 04/06/24 04/21/24 7.5-325] Potassium Chloride ER [K-Dur 20] 20 meq PO DAILY 04/06/24 04/21/24 Previous Rx's Medication Instructions Recorded Magnesium Oxide [Mag-Ox] 400 mg PO DAILY 90 Days #90 tab 12/31/23 Budesonide [Pulmicort] 0.5 mg INHALATION RT-BID 30 Days 04/18/24 #60 ml Ipratropium-Albuterol Nebulize 3 ml INHALATION RT-QID 30 Days 04/18/24 [Duoneb 0.5 mg-3 mg/3 ml Soln] #120 each Melatonin 10 mg PO HS tab 04/18/24 QUEtiapine [SEROquel] 25 mg PO HS PRN 30 Days #30 tab 04/18/24 Hydrocortisone [Cortef] 20 mg PO BID 90 Days #180 tab 04/24/24 Ipratropium Nebulized [Atrovent 0.5 mg INHALATION RT-TID 30 Days 04/24/24 Nebulized 0.2 MG/ML] #90 ml Pantoprazole [Protonix] 40 mg PO AC-BID 30 Days #60 tab 04/24/24 QUEtiapine [SEROquel] 50 mg PO HS 30 Days #30 tab 05/01/24 Doxycycline [Vibramycin] 100 mg PO BID #14 capsule 05/02/24 Allergies Allergy/AdvReac Type Severity Reaction Status Date / Time Penicillins Allergy Severe Anaphylaxis Verified 04/21/24 10:34 vancomycin Allergy Severe Swelling Verified 04/21/24 10:34 in lips cefepime Allergy Swelling Verified 04/21/24 10:34 clindamycin Allergy Anaphylaxis Verified 04/21/24 10:34 Influenza Virus Vaccines Allergy Anaphylaxis Verified 04/21/24 10:34 latex Allergy Itching Verified 04/21/24 10:34 and swelling morphine Allergy Anaphylaxis Verified 04/21/24 10:34 albuterol [From Ventolin HFA] AdvReac Rapid Verified 04/21/24 10:34 Heart Rate dexamethasone [From Decadron] AdvReac severe Verified 04/21/24 10:34 pain, like needles in groin [id number] AdvReac Confusion, Verified 04/21/24 10:34 [From Emgality Pen] increased blood pressure metoclopramide [From Reglan] AdvReac "felt like Verified 04/21/24 10:34 I needed to jump out of my skin" prochlorperazine AdvReac severe Verified 04/21/24 10:34 [From Compazine] anxiety Review of Systems ROS Statement: Those systems with pertinent positive or pertinent negative responses have been documented in the HPI. ROS Other: All systems not noted in ROS Statement are negative. 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 Patient states past history of C-Diff from 03/2023. Last Myocardial Infarction Date:: 08/30/2018 History of Any Multi-Drug Resistant Organisms: None Reported Date of last positivie culture/infection: 03/02/23 MDRO Source:: Stool Past Surgical History: Back Surgery, Breast Surgery, Cardiac Valve Replacement, Section, Cholecystectomy, Heart Catheterization, Hysterectomy, Pacemaker Additional Past Surgical History / Comment(s): pacemaker d/t bradycardia/hypotension with last one place in 2013 in [place], [place], 3 lower back surgeries, bilateral breast reduction. 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. lamenectomy Past Anesthesia/Blood Transfusion Reactions: No Reported Reaction Additional Past Anesthesia/Blood Transfusion Reaction / Comment(s): blood transfusion no issues Type of Cardiac Device: Permanent Pacemaker, Unknown Device Placement Date:: 2012 Past Psychological History: Anxiety, PTSD Smoking Status: Never smoker Past Alcohol Use History: Rare Past Drug Use History: Marijuana - Past Family History Mother Additional Family Medical History / Comment(s): Mother at the age of 49 yrs after surgery for silicon breast implants with a leak that caused ARDS and DIC per pt (fibroid cysts) Father Family Medical History: Cancer, Hyperlipidemia, Hypertension Additional Family Medical History / Comment(s): Father is a colon cancer survivor. General Exam Limitations: no limitations General appearance: alert, in no apparent distress Respiratory exam: Present: normal lung sounds bilaterally. Absent: respiratory distress, wheezes, rales, rhonchi, stridor Cardiovascular Exam: Present: regular rate, normal rhythm, normal heart sounds. Absent: systolic murmur, diastolic murmur, rubs, gallop, clicks GI/Abdominal exam: Present: soft, normal bowel sounds. Absent: distended, tenderness, guarding, rebound, rigid Neurological exam: Present: alert, oriented X3, CN II-XII intact Skin exam: Present: warm, dry, intact, normal color. Absent: rash Course Vital Signs 05/02/24 05/02/24 05/02/24 15:19 18:01 18:56 Temperature 101.8 F H 98.3 F Pulse Rate 82 64 70 Respiratory 18 19 18 Rate Blood Pressure 109/76 99/64 99/59 O2 Sat by Pulse 93 L 94 L 96 Oximetry - Reevaluation(s) Reevaluation #1: 05/02/24 18:41 Case was discussed with Dr. Hassan. He advised on starting patient on outpatient antibiotics and having her follow-up closely with him in office. As she was recently admitted and discharged yesterday. Medical Decision Making - Medical Decision Making Was pt. sent in by a medical professional or institution (, PA, SERVICE GREETER, urgent care, hospital, or longterm...) When possible be specific @ -No Did you speak to anyone other than the patient for history (EMS, parent, family, police, friend...)? What history was obtained from this source @ -No Did you review nursing and triage notes (agree or disagree)? Why? @ -I reviewed and agree with nursing and triage notes Were old charts reviewed (outside hosp., previous admission, EMS record, old EKG , old radiological studies, urgent care reports/EKG's, longterm records)? Report findings @ -Yes, I reviewed hospitalization on 04-21-2024. Patient admitted for numerous complaints. Patient was discharged yesterday. Differential Diagnosis (chest pain, altered mental status, abdominal pain women, abdominal pain men, vaginal bleeding, weakness, fever, dyspnea, syncope, headache, dizziness, GI bleed, back pain, seizure, CVA, palpatations, mental health, musculoskeletal)? @ -Differential Fever: Pneumonia, viral URI, endocarditis, myocarditis, pericarditis, otitis, sinusitis, peritonsillar Abscess, retropharyngeal Abscess, epiglottitis, peritonitis, appendicitis, Rae cystitis, diverticulitis, hepatitis, colitis, UTI, PID, TOA, pyelonephritis, prostatitis, epididymitis, meningitis, encephalitis, pulmonary embolism, CVA, thyroid storm, pancreatitis, adrenal crisis, cavernous sinus thrombosis, this is not meant to be an all- inclusive list. EKG interpreted by me (3pts min.). @ -As above X-rays interpreted by me (1pt min.). @ -CXR interpreted by me concerning of a right middle lobe pneumonia. CT interpreted by me (1pt min.). @ -None done U/S interpreted by me (1pt. min.). @ -None done What testing was considered but not performed or refused? (CT, X-rays, U/S, labs)? Why? @ -None What meds were considered but not given or refused? Why? @ -None Did you discuss the management of the patient with other professionals (professionals i.e. , PA, SERVICE GREETER, lab, RT, psych nurse, delinquency prevention social worker, sweet pickle maker, teacher, anti air warfare operations officer, casework specialist)? Give summary @ -Yes, case discussed with Dr. Hassan who advised on outpatient antibiotics and close follow-up out patient as patient was recently admitted and discharged yesterday. Was smoking cessation discussed for >3mins.? @ -No Was critical care preformed (if so, how long)? @ -No Were there social determinants of health that impacted care today? How? (Homelessness, low income, unemployed, alcoholism, drug addiction, transpor tation, low edu. Level, literacy, decrease access to med. care, retirement, rehab)? @ -No Was there de-escalation of care discussed even if they declined (Discuss DNR or withdrawal of care, Hospice)? DNR status @ -No What co-morbidities impacted this encounter? (DM, HTN, Smoking, COPD, CAD, Cancer, CVA, ARF, Chemo, Hep., AIDS, mental health diagnosis, sleep apnea, morbid obesity)? @ -Blood disorder, renal disease, seizure disorder Was patient admitted / discharged? Hospital course, mention meds given and route, prescriptions, significant lab abnormalities, going to OR and other pertinent info. @ -Discharge. 59-year-old female presented to the ER for evaluation of fever. Patient febrile upon arrival at 101.8 vitals otherwise stable. Patient no signs of acute distress nontoxic-appearing. Laboratory studies obtained showed a leukocytosis of 12.5 with a left shift. Patient did receive p.o. steroids and patient was started on outpatient hydrocortisone due to low cortisol levels. Kidney function appears to be at baseline with a creatinine 1.28, BUN 18 with a GFR 46. Lactic of 2.1 which is likely due to dehydration. Viral swabs negative. Chest x-ray concerning of a right midlung pneumonia. As patient has limited IV access with multiple nursing staff and US guided attempt failed, patient given IM Benadryl, Tylenol and Zofran with improvement of symptoms and fever. Given patient's recent admission and discharged yesterday case was discussed with Dr. Hassan who advised on outpatient antibiotics and close follow-up with him outpatient. Patient started on doxycycline, first dose in the ER. Patient remained stable in the ER. Upon reevaluation, results discussed with patient, all questions answered. Advised her to drink plenty of fluids as she is mildly dehydrated and take doxycycline as prescribed. Strict return parameters discussed. Patient discharged in stable condition with follow-up to PCP. Patient verbally expressed understanding and agreement with care plan. Case discussed with ED attending, . Undiagnosed new problem with uncertain prognosis? @ -No Drug Therapy requiring intensive monitoring for toxicity (Heparin, Nitro, Insulin, Cardizem)? @ -No Were any procedures done? @ -No Diagnosis/symptom? @ -Pneumonia Acute, or Chronic, or Acute on Chronic? @ -Acute Uncomplicated (without systemic symptoms) or Complicated (systemic symptoms)? @ -Uncomplicated Side effects of treatment? @ -No Exacerbation, Progression, or Severe Exacerbation? @ -No Poses a threat to life or bodily function? How? (Chest pain, USA, NM, pneumonia, PE, COPD, DKA, ARF, appy, cholecystitis, CVA, Diverticulitis, Homicidal, Suicidal, threat to staff... and all critical care pts) @ -Low at this time. Pneumonia can lead to sepsis and/or endorgan dysfunction along with hypoxia. - Lab Data Result diagrams: 05/02/24 17:50 05/02/24 17:50 Lab Results 05/02/24 05/02/24 05/02/24 Range/Units 17:24 17:50 17:50 WBC 12.5 H (3.8-10.6) k/uL RBC 4.52 (3.80-5.40) m/uL Hgb 13.5 (11.4-16.0) gm/dL Hct 41.2 (34.0-46.0) % MCV 91.2 (80.0-100.0) fL MCH 29.8 (25.0-35.0) pg MCHC 32.6 (31.0-37.0) g/dL RDW 15.2 (11.5-15.5) % Plt Count 199 (150-450) k/uL MPV 7.0 Neutrophils % 86 % Lymphocytes % 8 % Monocytes % 4 % Eosinophils % 1 % Basophils % 0 % Neutrophils # 10.8 H (1.3-7.7) k/uL Lymphocytes # 1.0 (1.0-4.8) k/uL Monocytes # 0.6 (0-1.0) k/uL Eosinophils # 0.1 (0-0.7) k/uL Basophils # 0.0 (0-0.2) k/uL Sodium 138 (137-145) mmol/L Potassium 3.6 (3.5-5.1) mmol/L Chloride 96 L (98-107) mmol/L Carbon Dioxide 33 H (22-30) mmol/L Anion Gap 9 mmol/L BUN 18 H (7-17) mg/dL Creatinine 1.28 H (0.52-1.04) mg/dL Est GFR (CKD-EPI)AfAm 53 (>60 ml/min/1.73 sqM) Est GFR (CKD-EPI)NonAf 46 (>60 ml/min/1.73 sqM) Glucose 72 L (74-99) mg/dL Lactic Ac Sepsis Rflx Plasma Lactic Acid Raffi (0.7-2.0) mmol/L Calcium 8.9 (8.4-10.2) mg/dL Total Bilirubin 0.6 (0.2-1.3) mg/dL AST 31 (14-36) U/L ALT 31 (4-34) U/L Alkaline Phosphatase 73 (38-126) U/L Total Protein 6.8 (6.3-8.2) g/dL Albumin 4.3 (3.5-5.0) g/dL Influenza Type A (PCR) Not Detected (Not Detectd) Influenza Type B (PCR) Not Detected (Not Detectd) RSV (PCR) Not Detected (Not Detectd) SARS-CoV-2 (PCR) Not Detected (Not Detectd) 05/02/24 05/02/24 Range/Units 17:50 18:18 WBC (3.8-10.6) k/uL RBC (3.80-5.40) m/uL Hgb (11.4-16.0) gm/dL Hct (34.0-46.0) % MCV (80.0-100.0) fL MCH (25.0-35.0) pg MCHC (31.0-37.0) g/dL RDW (11.5-15.5) % Plt Count (150-450) k/uL MPV Neutrophils % % Lymphocytes % % Monocytes % % Eosinophils % % Basophils % % Neutrophils # (1.3-7.7) k/uL Lymphocytes # (1.0-4.8) k/uL Monocytes # (0-1.0) k/uL Eosinophils # (0-0.7) k/uL Basophils # (0-0.2) k/uL Sodium (137-145) mmol/L Potassium (3.5-5.1) mmol/L Chloride (98-107) mmol/L Carbon Dioxide (22-30) mmol/L Anion Gap mmol/L BUN (7-17) mg/dL Creatinine (0.52-1.04) mg/dL Est GFR (CKD-EPI)AfAm (>60 ml/min/1.73 sqM) Est GFR (CKD-EPI)NonAf (>60 ml/min/1.73 sqM) Glucose (74-99) mg/dL Lactic Ac Sepsis Rflx Y Plasma Lactic Acid Raffi 2.1 H* (0.7-2.0) mmol/L Calcium (8.4-10.2) mg/dL Total Bilirubin (0.2-1.3) mg/dL AST (14-36) U/L ALT (4-34) U/L Alkaline Phosphatase (38-126) U/L Total Protein (6.3-8.2) g/dL Albumin (3.5-5.0) g/dL Influenza Type A (PCR) (Not Detectd) Influenza Type B (PCR) (Not Detectd) RSV (PCR) (Not Detectd) SARS-CoV-2 (PCR) (Not Detectd) - Radiology Data Radiology results: report reviewed, image reviewed Disposition Clinical Impression: Pneumonia Disposition: HOME SELF-CARE Condition: Stable Additional Instructions: Continue taking [id number] Tylenol for fever control. Complete full course of doxycycline. Follow-up closely with Dr. Hassan in the next 1 to 2 days. Return to the ER for any new or worsening concerns. Prescriptions: Doxycycline [Vibramycin] 100 mg PO BID #14 capsule Is patient prescribed a controlled substance at d/c from ED?: No Referrals: Franklin Hassan MD [Primary Care Provider] - 1-2 days Time of Disposition: 18:42
[2024-05-02] MEDS: ACETAMINOPHEN TAB 500 MG TAB PO STA (17:20)
[2024-05-02] MEDS: ONDANSETRON ODT 4 MG TAB PO STA (17:23)
--- NOTE | 2024-05-02 17:37 | XR ---
EXAMINATION TYPE: XR chest 2V DATE OF EXAM: 05/02/2024 5:32 PM COMPARISON: Multiple prior chest radiograph, most recently dated 05/01/2024. CLINICAL INDICATION: Female, 59 years old with history of fever; [facility] TECHNIQUE: XR chest 2V Frontal and lateral views of the chest. FINDINGS: Right chest wall pacemaker device with lead in stable position overlying the right atrium. Previous aortic valve replacement. Possible loop recorder device overlying the cardiac silhouette. Cardiac silhouette is stable in size. Patchy right midlung opacity, new from prior study. Left lung appears clear. Improving trace effusions. No pneumothorax. IMPRESSION: Patchy right midlung base opacity suspicious for pneumonia. [facility], , 05/02/2024 5:35 PM
[2024-05-02] MEDS: SODIUM CHLORIDE 0.9% 1,000 ML IV STA (17:54)
[2024-05-02 17:57] LABS: Basophils % (A) 0 %; Eosinophils # (A) 0.1 k/uL (0-0.7); Eosinophils % (A) 1 %; HCT 41.2 % (34.0-46.0); HGB 13.5 gm/dL (11.4-16.0); Lymphocytes % (A) 8 %; MCH 29.8 pg (25.0-35.0); MCHC 32.6 g/dL (31.0-37.0); MCV 91.2 fL (80.0-100.0); Monocytes # (A) 0.6 k/uL (0-1.0); Monocytes % (A) 4 %; Neutrophils # (A) 10.8 k/uL (1.3-7.7); Neutrophils % (A) 86 %; Platelet Count 199 k/uL (150-450); RBC 4.52 m/uL (3.80-5.40); RDW 15.2 % (11.5-15.5); WBC 12.5 k/uL (3.8-10.6)
[2024-05-02 18:24] LABS: ALT 31 U/L (4-34); AST 31 U/L (14-36); African American GFR (CKD) 53 (>60 ml/min/1.73 sqM); Albumin 4.3 g/dL (3.5-5.0); Alkaline Phosphatase 73 U/L (38-126); Anion Gap 9 mmol/L; Blood Urea Nitrogen 18 mg/dL (7-17); Calcium 8.9 mg/dL (8.4-10.2); Carbon Dioxide 33 mmol/L (22-30); Chloride 96 mmol/L (98-107); Glucose 72 mg/dL (74-99); Non-African American GFR(CKD) 46 (>60 ml/min/1.73 sqM); Potassium 3.6 mmol/L (3.5-5.1); Sodium 138 mmol/L (137-145); Total Bilirubin 0.6 mg/dL (0.2-1.3); Total Protein 6.8 g/dL (6.3-8.2)
[2024-05-02] MEDS: diphenhydrAMINE 50 MG/ML 1 ML VIAL IM STA (18:54)
[2024-05-02] MEDS: DOXYCYCLINE 100 MG CAP PO STA (18:55)
[2024-05-02 18:58] VITALS: BP 99/59; PULSE 70; RESP 18; TEMP 98.3
== END 2024-05-02 19:11 | disposition home or self-care (01) ==
LOC: EC 15:10
DX: J18.9 Pneumonia, unspecified organism (principal); Z88.0 Allergy status to penicillin; Z88.1 Allergy status to other antibiotic agents; Z88.5 Allergy status to narcotic agent; Z88.7 Allergy status to serum and vaccine; Z91.040 Latex allergy status; Z88.8 Allergy status to other drugs, medicaments and biological substances
CPT/HCPCS: 80053; 83605; 85025; 87636; 71046; 99284; 96360; 96372; J1200; 36415

== ENCOUNTER 2024-05-13 12:39 | Emergency (ER) | payer MEDICARE ==
--- NOTE | 2024-05-13 12:50 | ED ---
General Adult HPI - General Stated complaint: seizure Time Seen by Provider: 05/13/24 12:46 Source: patient, EMS, old records reviewed (Previous hospital admission includi ng electrolytes and chest) Mode of arrival: EMS Limitations: no limitations - History of Present Illness Initial comments: Patient is a 59-year-old female present to the emergency department with concerns for seizure. EMS states patient had seizure at home and has been shaking for over 20 minutes. Patient received Versed 15 mg IV secondary to no IV access. On arrival patient is shaking and not talking. With sternal rub patient arouses and asks for that to be stopped. Patient states she does have pain that she does have chronically. Patient states she was recently in the hospital for pneumonia and electrolyte disorder -: minutes(s) - Related Data Home Medications Medication Instructions Recorded Confirmed Atorvastatin [Lipitor] 40 mg PO HS 09/24/21 04/21/24 Sertraline [Zoloft] 200 mg PO DAILY 09/24/21 04/21/24 Apixaban [Eliquis] 5 mg PO BID 05/29/22 04/21/24 busPIRone HCl [Buspar] 5 mg PO BID 06/11/22 04/21/24 Fludrocortisone [Florinef] 0.1 mg PO DAILY 09/20/22 04/21/24 Metoprolol Succinate (ER) [Toprol 50 mg PO DAILY 02/16/23 04/21/24 XL] rOPINIRole HCL [Requip] 2 mg PO HS 04/28/23 04/21/24 Bumetanide [BUMEX] 1 mg PO HS 08/12/23 04/21/24 Spironolactone [Aldactone] 50 mg PO HS 08/12/23 04/21/24 Budesonide/Glycopyr/Formoterol 2 puff INHALATION RT-BID 12/26/23 04/21/24 [Breztri Aerosphere Inhaler] Gabapentin 600 mg PO QID@,,17,21 12/26/23 04/21/24 Midodrine [ProAmatine] 5 mg PO TID PRN 12/26/23 04/21/24 Ondansetron [Zofran] 4 mg PO TID PRN 12/26/23 04/21/24 Vitamin B-6(Unknown) 1 tab PO DAILY 12/26/23 04/21/24 Vitamin D3(Unknown) 1 tab PO DAILY 12/26/23 04/21/24 HYDROcodone/APAP 7.5-325MG [[place] 1 tab PO TID 04/06/24 04/21/24 7.5-325] Potassium Chloride ER [K-Dur 20] 20 meq PO DAILY 04/06/24 04/21/24 Previous Rx's Medication Instructions Recorded Magnesium Oxide [Mag-Ox] 400 mg PO DAILY 90 Days #90 tab 12/31/23 Budesonide [Pulmicort] 0.5 mg INHALATION RT-BID 30 Days 04/18/24 #60 ml Ipratropium-Albuterol Nebulize 3 ml INHALATION RT-QID 30 Days 04/18/24 [Duoneb 0.5 mg-3 mg/3 ml Soln] #120 each Melatonin 10 mg PO HS tab 04/18/24 QUEtiapine [SEROquel] 25 mg PO HS PRN 30 Days #30 tab 04/18/24 Hydrocortisone [Cortef] 20 mg PO BID 90 Days #180 tab 04/24/24 Ipratropium Nebulized [Atrovent 0.5 mg INHALATION RT-TID 30 Days 04/24/24 Nebulized 0.2 MG/ML] #90 ml Pantoprazole [Protonix] 40 mg PO AC-BID 30 Days #60 tab 04/24/24 QUEtiapine [SEROquel] 50 mg PO HS 30 Days #30 tab 05/01/24 Doxycycline [Vibramycin] 100 mg PO BID #14 capsule 05/02/24 Allergies Allergy/AdvReac Type Severity Reaction Status Date / Time Penicillins Allergy Severe Anaphylaxis Verified 05/13/24 12:48 vancomycin Allergy Severe Swelling Verified 05/13/24 12:48 in lips cefepime Allergy Swelling Verified 05/13/24 12:48 clindamycin Allergy Anaphylaxis Verified 05/13/24 12:48 Influenza Virus Vaccines Allergy Anaphylaxis Verified 05/13/24 12:48 latex Allergy Itching Verified 05/13/24 12:48 and swelling morphine Allergy Anaphylaxis Verified 05/13/24 12:48 albuterol [From Ventolin HFA] AdvReac Rapid Verified 05/13/24 12:48 Heart Rate dexamethasone [From Decadron] AdvReac severe Verified 05/13/24 12:48 pain, like needles in groin [id number] AdvReac Confusion, Verified 05/13/24 12:48 [From Emgality Pen] increased blood pressure metoclopramide [From Reglan] AdvReac "felt like Verified 05/13/24 12:48 I needed to jump out of my skin" prochlorperazine AdvReac severe Verified 05/13/24 12:48 [From Compazine] anxiety Review of Systems ROS Statement: Those systems with pertinent positive or pertinent negative responses have been documented in the HPI. ROS Other: All systems not noted in ROS Statement are negative. 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 Patient states past history of C-Diff from 03/2023. Last Myocardial Infarction Date:: 08/30/2018 History of Any Multi-Drug Resistant Organisms: None Reported Date of last positivie culture/infection: 03/02/23 MDRO Source:: Stool Past Surgical History: Back Surgery, Breast Surgery, Cardiac Valve Replacement, Section, Cholecystectomy, Heart Catheterization, Hysterectomy, Pacemaker Additional Past Surgical History / Comment(s): pacemaker d/t br adycardia/hypotension with last one place in 2013 in [place], [place], 3 lower back surgeries, bilateral breast reduction. 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. lamenectomy Past Anesthesia/Blood Transfusion Reactions: No Reported Reaction Additional Past Anesthesia/Blood Transfusion Reaction / Comment(s): blood transfusion no issues Type of Cardiac Device: Permanent Pacemaker, Unknown Device Placement Date:: 2012 Past Psychological History: Anxiety, PTSD Smoking Status: Never smoker Past Alcohol Use History: Rare Past Drug Use History: Marijuana - Past Family History Mother Additional Family Medical History / Comment(s): Mother at the age of 49 yrs after surgery for silicon breast implants with a leak that caused ARDS and DIC per pt (fibroid cysts) Father Family Medical History: Cancer, Hyperlipidemia, Hypertension Additional Family Medical History / Comment(s): Father is a colon cancer survivor. General Exam General appearance: alert, other (Patient originally unresponsive and shaking however discontinues this with sternal rub and does have conversation) Head exam: Present: normocephalic Eye exam: Present: normal appearance, PERRL, EOMI ENT exam: Present: normal oropharynx Neck exam: Present: normal inspection Respiratory exam: Present: normal lung sounds bilaterally Cardiovascular Exam: Present: regular rate, normal rhythm GI/Abdominal exam: Present: soft. Absent: tenderness Extremities exam: Present: normal inspection, full ROM. Absent: tenderness Neurological exam: Present: alert, CN II-XII intact. Absent: motor sensory deficit Psychiatric exam: Present: normal affect, normal mood Skin exam: Present: normal color Course Vital Signs 05/13/24 12:41 Temperature 98.1 F Pulse Rate 69 Respiratory 22 Rate Blood Pressure 118/81 O2 Sat by Pulse 95 Oximetry EKG Findings - EKG Results: EKG: interpreted by ERMD (Atrial paced rhythm with a rate of 70.), normal axis, normal QRS, normal ST/T Medical Decision Making - Medical Decision Making MDM back was pt. sent in by a medical professional or institution ([facility], [employer], urgent care, hospital, or jail...) When possible be specific @ -No Did you speak to anyone other than the patient for history (EMS, parent, family, police, friend...)? What history was obtained from this source @ -I did speak to EMS regarding patient medications provided and transportation history Did you review nursing and triage notes (agree or disagree)? Why? @ -I reviewed and agree with nursing and triage notes Were old charts reviewed (outside hosp., previous admission, EMS record, old EKG, old radiological studies, urgent care reports/EKG's, jail records)? Report findings @ -Previous admissions reviewed including radiological studies and electrolytes Differential Diagnosis (chest pain, altered mental status, abdominal pain women, abdominal pain men, vaginal bleeding, weakness, fever, dyspnea, syncope, headache, dizziness, GI bleed, back pain, seizure, CVA, palpatations, mental health, musculoskeletal)? @ -Differential Seizure: Recurrent seizure disorder, febrile seizure, alcohol withdrawal, stimulants, meningitis, encephalitis, intercranial hemorrhage, intracranial tumor, stroke, eclampsia, thyrotoxicosis, hypocalcemia, hyponatremia, hypernatremia, hypomagnesemia, psychogenic, this is not meant to be an all-inclusive list. EKG interpreted by me (3pts min.). @ -As above X-rays interpreted by me (1pt min.). @ -None done CT interpreted by me (1pt min.). @ -None done U/S interpreted by me (1pt. min.). @ -None done What testing was considered but not performed or refused? (CT, X-rays, U/S, labs)? Why? @ -Considered imaging however patient has longstanding history of pseudoseizures and previous imaging and previous evaluations for this What meds were considered but not given or refused? Why? @ -None Did you discuss the management of the patient with other professionals (professionals i.e. , PA, [employer], lab, RT, psych nurse, public health social worker, ribbon cutter, teacher, chief nursing officer, social work case manager)? Give summary @ -No Was smoking cessation discussed for >3mins.? @ -No Was critical care preformed (if so, how long)? @ -No Were there social determinants of health that impacted care today? How? (Homelessness, low income, unemployed, alcoholism, drug addiction, transportation, low edu. Level, literacy, decrease access to med. care, residential, rehab)? @ -No Was there de-escalation of care discussed even if they declined (Discuss DNR or withdrawal of care, Hospice)? DNR status @ -No What co-morbidities impacted this encounter? (DM, HTN, Smoking, COPD, CAD, Cancer, CVA, ARF, Chemo, Hep., AIDS, mental health diagnosis, sleep apnea, morbid obesity)? @ -History of pseudoseizures Was patient admitted / discharged? Hospital course, mention meds given and route, prescriptions, significant lab abnormalities, going to OR and other pertinent info. @ -Patient presents with pseudoseizure resolved with sternal rub. Patient is alert and appropriate. On further evaluation patient states she believes her headaches set off her pseudoseizure as this happens to her. Patient request additional Benadryl. Patient would like to be discharged home otherwise. Patient has longstanding history of similar migraines including multiple evaluations and imaging as well as longstanding history of pseudoseizures. Patient has no neurological deficits. Patient will be provided additional Benadryl and discharged for follow-up with her neurologist and primary care physician. Undiagnosed new problem with uncertain prognosis? @ -No Drug Therapy requiring intensive monitoring for toxicity (Heparin, Nitro, Insulin, Cardizem)? @ -No Were any procedures done? @ -No Diagnosis/symptom? @ -Headache, pseudoseizure Acute, or Chronic, or Acute on Chronic? @ -Acute, acute Uncomplicated (without systemic symptoms) or Complicated (systemic symptoms)? @ -Default Side effects of treatment? @ -No Exacerbation, Progression, or Severe Exacerbation? @ -No Poses a threat to life or bodily function? How? (Chest pain, [place], AL, pneumonia, PE, COPD, DKA, ARF, appy, cholecystitis, CVA, Diverticulitis, Homicidal, Suicidal, threat to staff... and all critical care pts) @ -No - Lab Data Result diagrams: 05/13/24 13:08 05/13/24 13:08 Lab Results 05/13/24 05/13/24 Range/Units 13:08 13:08 WBC 4.3 (3.8-10.6) k/uL RBC 5.17 (3.80-5.40) m/uL Hgb 16.1 H (11.4-16.0) gm/dL Hct 47.0 H (34.0-46.0) % MCV 90.8 (80.0-100.0) fL MCH 31.1 (25.0-35.0) pg MCHC 34.2 (31.0-37.0) g/dL RDW 14.5 (11.5-15.5) % Plt Count 215 (150-450) k/uL MPV 7.5 Neutrophils % 67 % Lymphocytes % 25 % Monocytes % 4 % Eosinophils % 1 % Basophils % 0 % Neutrophils # 2.9 (1.3-7.7) k/uL Lymphocytes # 1.1 (1.0-4.8) k/uL Monocytes # 0.2 (0-1.0) k/uL Eosinophils # 0.0 (0-0.7) k/uL Basophils # 0.0 (0-0.2) k/uL Sodium 140 (137-145) mmol/L Potassium 4.2 (3.5-5.1) mmol/L Chloride 103 (98-107) mmol/L Carbon Dioxide 29 (22-30) mmol/L Anion Gap 8 mmol/L BUN 24 H (7-17) mg/dL Creatinine 1.19 H (0.52-1.04) mg/dL Est GFR (CKD-EPI)AfAm 57 (>60 ml/min/1.73 sqM) Est GFR (CKD-EPI)NonAf 50 (>60 ml/min/1.73 sqM) Glucose 79 (74-99) mg/dL Calcium 9.5 (8.4-10.2) mg/dL Magnesium 2.2 (1.6-2.3) mg/dL Total Bilirubin 0.6 (0.2-1.3) mg/dL AST 29 (14-36) U/L ALT 28 (4-34) U/L Alkaline Phosphatase 75 (38-126) U/L Total Protein 7.2 (6.3-8.2) g/dL Albumin 4.5 (3.5-5.0) g/dL Serum Alcohol <10 mg/dL Disposition Clinical Impression: Headache Disposition: HOME SELF-CARE Condition: Stable Instructions (If sedation given, give patient instructions): Acute Headache (ED), Migraine Headache (ED) Additional Instructions: Please do follow-up with your primary care physician and your neurologist beginning of the week. Return for increased headache, fever, weakness, uncontrolled seizure/pseudoseizure, worsening symptoms or any other concerns Is patient prescribed a controlled substance at d/c from ED?: No Referrals: Franklin Hassan MD [Primary Care Provider] - 1-2 days Time of Disposition: 13:44
[2024-05-13 12:51] VITALS: TEMP 98.1
[2024-05-13 13:13] LABS: Basophils % (A) 0 %; Eosinophils % (A) 1 %; HGB 16.1 gm/dL (11.4-16.0); Lymphocytes # (A) 1.1 k/uL (1.0-4.8); Lymphocytes % (A) 25 %; MCH 31.1 pg (25.0-35.0); MCHC 34.2 g/dL (31.0-37.0); MCV 90.8 fL (80.0-100.0); Mean Platelet Volume 7.5; Monocytes # (A) 0.2 k/uL (0-1.0); Monocytes % (A) 4 %; Neutrophils # (A) 2.9 k/uL (1.3-7.7); Neutrophils % (A) 67 %; Platelet Count 215 k/uL (150-450); RBC 5.17 m/uL (3.80-5.40); RDW 14.5 % (11.5-15.5); WBC 4.3 k/uL (3.8-10.6)
[2024-05-13] MEDS: SODIUM CHLORIDE 0.9% 1,000 ML IV STA (13:13)
[2024-05-13 13:26] LABS: ALT 28 U/L (4-34); AST 29 U/L (14-36); African American GFR (CKD) 57 (>60 ml/min/1.73 sqM); Albumin 4.5 g/dL (3.5-5.0); Alcohol <10 mg/dL; Alkaline Phosphatase 75 U/L (38-126); Anion Gap 8 mmol/L; Blood Urea Nitrogen 24 mg/dL (7-17); Calcium 9.5 mg/dL (8.4-10.2); Carbon Dioxide 29 mmol/L (22-30); Chloride 103 mmol/L (98-107); Glucose 79 mg/dL (74-99); Magnesium 2.2 mg/dL (1.6-2.3); Non-African American GFR(CKD) 50 (>60 ml/min/1.73 sqM); Potassium 4.2 mmol/L (3.5-5.1); Sodium 140 mmol/L (137-145); Total Bilirubin 0.6 mg/dL (0.2-1.3); Total Protein 7.2 g/dL (6.3-8.2)
[2024-05-13] MEDS: diphenhydrAMINE 50 MG/ML 1 ML VIAL IVP STA ×2 (13:29→15:12)
[2024-05-13] MEDS: ONDANSETRON 4 MG/2 ML VIAL IVP STA (13:29)
[2024-05-13 15:52] VITALS: BP 120/66; PULSE 86; RESP 16
== END 2024-05-13 15:52 | disposition home or self-care (01) ==
LOC: EC 12:39
DX: R51.9 Headache, unspecified (principal); Z86.69 Personal history of other diseases of the nervous system and sense organs; Z88.0 Allergy status to penicillin; Z88.1 Allergy status to other antibiotic agents; Z88.5 Allergy status to narcotic agent; Z88.7 Allergy status to serum and vaccine; Z91.040 Latex allergy status; Z88.8 Allergy status to other drugs, medicaments and biological substances
CPT/HCPCS: 36415; 93005; 80053; 83735; 85025; 80320; 99285; 96374; 96375; 96376; 96361; J1200; J2405

== ENCOUNTER → 2024-05-23 | Outpatient (CLI) | payer OTHER ==
[2024-05-23 13:54] VITALS: BP 125/68; PULSE 71; RESP 19; TEMP 97.5
--- NOTE | 2024-05-23 16:42 | P.PAINPG ---
PQRS Measure Charge Sheet Comment: A 59 yr old female w at side with a history of severe and chronic neck pain secondary to occipital neuralgia, cervicogenic RINALDI presents today for evaluation s/p BL EHSAN #1. Pt states she experienced 50 % pain relief x 2-3 wks s/p procedure. Pain level is provoked at 6-7 /10 in intensity, constant, pre dominantly axial, localized in the upper cervical spine, sharp in character w occasional shooting towards the sides of the head. Pain is provoked by being in 1 position for periods > 20 min. Pain is alleviated with PT x 6 wks (cervical) which ended in Spring 2023, physician guided stretches daily since Spring 2023, heat, ice, medications, repositioning and rest. Interventional pain procedures completed include BL EHSAN x1 (Apr 2024) Patient is currently on Fioricet, [place] 7.5/325mg #90, Neurontin 600mg #120, Flexeril Patient denies any side effects of the medication(s), denies excessive drowsi ness or sleepiness, denies suicidal ideation and reports that the current pain medication is helping to control the pain and improve activities of daily living. Patient denies any motor or sensory deficits. Patient denies any fever or night sweats, denies any change in the bowel movements or urination. Physical Examination: -Constitutional: Cooperative. Not in acute distress . - Neurologic: Cranial nerve II to XII intact. No focal neurological deficits. - Psychatric: Alert & oriented x 3. Matching mood & appropriate affect. Judgment and insight intact. - Musculoskeletal: Cervical spine: +BL EHSAN TTP Muscle bulk/ tone/ strength in the bilateral upper extremities normal Vertebral body tenderness to palpation over Spurling test positive Distraction test positive Facet loading test positive TTP Thoracic spine Muscle bulk / tone/ strength in the bilateral paraspinal muscles normal Vertebral body tender to palpation over Facet loading test positive TTP Lumbar spine: Motor bulk/ tone/ strength lower extremities , thigh and legs : 5/5 Deep tendon reflexes : Normal Knee Jerk. Normal Ankle Jerk . Vertebral body tenderness to palpation over Lumbar Facet Loading Test positive Straight Leg Raise: positive at 30 degrees right side/ left side Gaenslen's Test positive Sacral spine : Severe tenderness over the Sacroiliac joint: right side / left side Range of motion: Flexion of the lumbar spine <60 degrees Range of motion: Extension of the lumbar spine <20 degrees Gaenslen's Test positive R / L Wu test: positive right side / left side Thigh Thrust Test positive R / L Sacral Thrust Test positive R/ L Imaging: CT non contrast brain reviewed Assessment and plan: Chronic neck pain secondary to occipital neuralgia, cervicogenic RINALDI Recommendation of MARLENE MOSER #2. Risks, benefits of procedure discussed and pt verbalized understanding. Admits to anticoagulant use or medical history of diabetes. Protocol for discontinuation/ continuation of medications mariel procedure discussed. All questions answered. I have spent less than 30 minutes on patient care today. Dr Hirsch was available by phone for the evaluation of this patient. The time was used to review the medical records including relevant urine studies and Prescription history (MAPs), review of the available imaging, evaluation and examination of the patient, coordination of care with the medical staff and if applicable referring physicians, as well as creation of the medical record Home Medications: Ambulatory Orders Atorvastatin [Lipitor] 40 mg PO HS 09/24/21 Sertraline [Zoloft] 200 mg PO DAILY 09/24/21 Apixaban [Eliquis] 5 mg PO BID 05/29/22 busPIRone HCl [Buspar] 5 mg PO BID 06/11/22 Fludrocortisone [Florinef] 0.1 mg PO DAILY 09/20/22 Metoprolol Succinate (ER) [Toprol XL] 50 mg PO DAILY 02/16/23 rOPINIRole HCL [Requip] 2 mg PO HS 04/28/23 Bumetanide [BUMEX] 1 mg PO HS 08/12/23 Spironolactone [Aldactone] 50 mg PO HS 08/12/23 Budesonide/Glycopyr/Formoterol [Breztri Aerosphere Inhaler] 2 puff INHALATION RT-BID 12/26/23 Gabapentin 600 mg PO QID@09,13,17,21 12/26/23 Midodrine [ProAmatine] 5 mg PO TID PRN 12/26/23 Ondansetron [Zofran] 4 mg PO TID PRN 12/26/23 Vitamin B-6(Unknown) 1 tab PO DAILY 12/26/23 Vitamin D3(Unknown) 1 tab PO DAILY 12/26/23 Magnesium Oxide [Mag-Ox] 400 mg PO DAILY 90 Days #90 tab 12/31/23 HYDROcodone/APAP 7.5-325MG [[place] 7.5-325] 1 tab PO TID 04/06/24 Potassium Chloride ER [K-Dur 20] 20 meq PO DAILY 04/06/24 Budesonide [Pulmicort] 0.5 mg INHALATION RT-BID 30 Days #60 ml 04/18/24 Ipratropium-Albuterol Nebulize [Duoneb 0.5 mg-3 mg/3 ml Soln] 3 ml INHALATION RT-QID 30 Days #120 each 04/18/24 Melatonin 10 mg PO HS tab 04/18/24 QUEtiapine [SEROquel] 25 mg PO HS PRN 30 Days #30 tab 04/18/24 Hydrocortisone [Cortef] 20 mg PO BID 90 Days #180 tab 04/24/24 Ipratropium Nebulized [Atrovent Nebulized 0.2 MG/ML] 0.5 mg INHALATION RT-TID 30 Days #90 ml 04/24/24 Pantoprazole [Protonix] 40 mg PO AC-BID 30 Days #60 tab 04/24/24 QUEtiapine [SEROquel] 50 mg PO HS 30 Days #30 tab 05/01/24 Doxycycline [Vibramycin] 100 mg PO BID #14 capsule 05/02/24 Controlled Substance Measures - Controlled Substance Measures Is patient prescribed a controlled substance at discharge?: No
== END ==
LOC: PNWHC3 12:49
PROVIDERS: ATTEND Specialist
DX: M54.2 Cervicalgia (principal); G89.29 Other chronic pain; M54.81 Occipital neuralgia; G44.86 Cervicogenic headache; F12.90 Cannabis use, unspecified, uncomplicated; Z88.0 Allergy status to penicillin; Z88.1 Allergy status to other antibiotic agents; Z88.7 Allergy status to serum and vaccine; Z91.040 Latex allergy status; Z88.5 Allergy status to narcotic agent; Z88.8 Allergy status to other drugs, medicaments and biological substances; Z88.9 Allergy status to unspecified drugs, medicaments and biological substances
CPT/HCPCS: 99211

== ENCOUNTER 2024-05-31 05:45 | Day surgery (SDC) | payer OTHER ==
[~2024-05-31 05:45] MED LIST changes: -ACETAMINOPHEN TAB 500 MG TAB PO PRN; -GABAPENTIN 300 MG CAP PO PRN; -ONDANSETRON 4 MG/2 ML VIAL IVP PRN; +Pre Op ABX Message 1 EACH MISC MISCELLANE ONE; -TRANEXAMIC 1,000 MG/100ML-NACL 1,000 MG in SALINE 1 100ML.BAG IVPB PRN
[2024-05-31] MEDS ORDERED: LIDOCAINE 1% (10MG/ML) FOR IV START INTRADERMA PRN (06:00)
[2024-05-31] MEDS ORDERED: ONDANSETRON 4 MG/2 ML VIAL IVP ONE (06:00)
[2024-05-31 06:38] LABS: Glucose,Whole Blood 104 mg/dL (70-110)
[2024-05-31] MEDS ORDERED: fentaNYL (PF) 50 MCG/ML 2 ML AMP IV PRN (07:00)
[2024-05-31] MEDS: LACTATED RINGERS 1,000 ML IV ONE (07:12)
[2024-05-31] MEDS: LACTATED RINGERS 1,000 ML IV SCH (07:13)
[2024-05-31] MEDS: HYDROCORTISONE SUCCINATE 100 MG/2 ML VIAL IV STA (07:14)
[2024-05-31] MEDS ORDERED: PROPOFOL 10 MG/ML 20 ML VIAL IV ONE (07:30)
[2024-05-31] MEDS ORDERED: fentaNYL (PF) 50 MCG/ML 2 ML AMP ONE (07:30)
[2024-05-31] MEDS ORDERED: PHENYLEPHRINE 10 MG/ML VIAL ONE (07:30)
[2024-05-31] MEDS ORDERED: SUCCINYLCHOLINE CHLORIDE 200 MG/10 ML VIAL IV ONE (07:30)
[2024-05-31] MEDS ORDERED: LIDOCAINE 1% INJ 10MG/ML (20 ML MDV) ONE (07:30)
[2024-05-31] MEDS: LIDOCAINE 1% INJ 10MG/ML (20 ML MDV) SQ ONE (07:58)
[2024-05-31] MEDS: SODIUM CHLORIDE 0.9% 500 ML 500 ML with HEPARIN SODIUM,PORCINE (1 ML) 5,000 UNIT IV ONE (08:02)
[2024-05-31] MEDS: HYDROmorphone 0.5 MG/0.5 ML SYRINGE IVP PRN (08:42)
--- NOTE | 2024-05-31 08:48 | P.OP ---
Date of Procedure: 05/31/24 Description of Procedure: DATE OF PROCEDURE: 05/31/2024 PREOPERATIVE DIAGNOSIS: Difficult IV access, need for infusions PROCEDURE: 1. Ultrasound-guided left internal jugular vein access. 2. Placement of a 8 Sinhala subcutaneous port with fluoroscopic assistance. PROCEDURE: The patient was brought to the operative suite b placed in supine position. The bilateral necks were prepped and draped in usual sterile fashion. A preprocedure timeout was performed, all parties were in agreement. 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 Using ultrasound the left internal jugular was identified. The site overlying the vein was anesthetized with 1% lidocaine plain and an access needle was used to gain access to the internal jugular vein with return of dark venous, nonpulsatile blood. Seldinger technique was used and a micro-access sheath was placed, initial attempts were placed a J-wire which was difficult to advance and kept guiding into the subclavian, uncertain if this is at a level of the valve or the area of some stenosis. Micro access wire was then utilized and transitioned easily to the cavoatrial junction. The overlying micro access sheath was placed followed by the J-wire under fluoroscopic guidance and placed in the cavoatrial junction.. Attention was then turned towards the tunnel. The chest wall was anesthetized with 1% lidocaine plain. The area of the pocket was decided due to the previous surgical scarring. At the appropriate level an incision was made and carried down through the subcutaneous tissues with attempts to make a thicker wall due to this tissue. Once the pocket was found to be the appropriate size, it was tested. The port was attached and tunneled to the area in the neck where the previous access had been gained. The port itself was sutured in place with 3-0 Prolene the left untied. The final tear-away sheath was left in place via Seldinger Technique over the wire. The inner cannula and wire were removed. The catheter was placed in the tear-away sheath was removed in standard fashion. The catheter showed good positioning was final resting place in the cavoatrial junction. The port aspirated and flushed freely. The port was tied down in place. The pocket was irrigated. The incision at the neck was reapproximated with interrupted sutures of 4-0 Monocryl. The skin at the level of the pocket was reapproximated with interrupted sutures of 3-0 Vicryl and 4-0 Monocryl dressings were placed. The patient was allowed to awaken from anesthesia and transferred to recovery in stable condition having tolerated the procedure well. A post procedure chest x-ray is pending Plan - Discharge Summary Discharge Rx Participant: No New Discharge Prescriptions: No Action busPIRone HCl [Buspar] 5 mg PO BID Metoprolol Succinate (ER) [Toprol XL] 50 mg PO DAILY rOPINIRole HCL [Requip] 2 mg PO HS Gabapentin 600 mg PO QID@09,13,17,21 Vitamin D3(Unknown) 1 tab PO DAILY Budesonide/Glycopyr/Formoterol [Breztri Aerosphere Inhaler] 2 puff INHALATION RT-BID Midodrine [ProAmatine] 5 mg PO TID PRN PRN Reason: Blood Pressure - Low Potassium Chloride ER [K-Dur 20] 20 meq PO DAILY HYDROcodone/APAP 7.5-325MG [Douglas 7.5-325] 1 tab PO TID Ipratropium Nebulized [Atrovent Nebulized 0.2 MG/ML] 0.5 mg INHALATION RT-TID 30 Days #90 ml Pantoprazole [Protonix] 40 mg PO AC-BID 30 Days #60 tab Bumetanide [BUMEX] 2 mg PO DAILY Sertraline [Zoloft] 200 mg PO DAILY Atorvastatin [Lipitor] 40 mg PO HS Apixaban [Eliquis] 5 mg PO BID Fludrocortisone [Florinef] 0.1 mg PO DAILY Spironolactone [Aldactone] 50 mg PO HS Bumetanide [BUMEX] 1 mg PO HS Ondansetron [Zofran] 4 mg PO TID PRN PRN Reason: Nausea Magnesium Oxide [Mag-Ox] 400 mg PO DAILY 90 Days #90 tab Ipratropium-Albuterol Nebulize [Duoneb 0.5 mg-3 mg/3 ml Soln] 3 ml INHALATION RT-QID 30 Days #120 each QUEtiapine [SEROquel] 25 mg PO HS PRN 30 Days #30 tab PRN Reason: Restlessness Hydrocortisone [Cortef] 20 mg PO BID 90 Days #180 tab QUEtiapine [SEROquel] 50 mg PO HS 30 Days #30 tab diphenhydrAMINE [Benadryl] 50 mg IM QID PRN PRN Reason: allergic reactions Discharge Medication List Atorvastatin [Lipitor] 40 mg PO HS 09/24/21 [History] Sertraline [Zoloft] 200 mg PO DAILY 09/24/21 [History] Apixaban [Eliquis] 5 mg PO BID 05/29/22 [History] busPIRone HCl [Buspar] 5 mg PO BID 06/11/22 [History] Fludrocortisone [Florinef] 0.1 mg PO DAILY 09/20/22 [History] Metoprolol Succinate (ER) [Toprol XL] 50 mg PO DAILY 02/16/23 [History] rOPINIRole HCL [Requip] 2 mg PO HS 04/28/23 [History] Bumetanide [BUMEX] 1 mg PO HS 08/12/23 [History] Spironolactone [Aldactone] 50 mg PO HS 08/12/23 [History] Budesonide/Glycopyr/Formoterol [Breztri Aerosphere Inhaler] 2 puff INHALATION RT-BID 12/26/23 [History] Gabapentin 600 mg PO QID@09,13,17,21 12/26/23 [History] Midodrine [ProAmatine] 5 mg PO TID PRN 12/26/23 [History] Ondansetron [Zofran] 4 mg PO TID PRN 12/26/23 [History] Vitamin D3(Unknown) 1 tab PO DAILY 12/26/23 [History] Magnesium Oxide [Mag-Ox] 400 mg PO DAILY 90 Days #90 tab 12/31/23 [Rx] HYDROcodone/APAP 7.5-325MG [Douglas 7.5-325] 1 tab PO TID 04/06/24 [History] Potassium Chloride ER [K-Dur 20] 20 meq PO DAILY 04/06/24 [History] Ipratropium-Albuterol Nebulize [Duoneb 0.5 mg-3 mg/3 ml Soln] 3 ml INHALATION RT-QID 30 Days #120 each 04/18/24 [Rx] QUEtiapine [SEROquel] 25 mg PO HS PRN 30 Days #30 tab 04/18/24 [Rx] Hydrocortisone [Cortef] 20 mg PO BID 90 Days #180 tab 04/24/24 [Rx] Ipratropium Nebulized [Atrovent Nebulized 0.2 MG/ML] 0.5 mg INHALATION RT-TID 30 Days #90 ml 04/24/24 [Rx] Pantoprazole [Protonix] 40 mg PO AC-BID 30 Days #60 tab 04/24/24 [Rx] QUEtiapine [SEROquel] 50 mg PO HS 30 Days #30 tab 05/01/24 [Rx] Bumetanide [BUMEX] 2 mg PO DAILY 05/28/24 [History] diphenhydrAMINE [Benadryl] 50 mg IM QID PRN 05/28/24 [History] Follow up Appointment(s)/Referral(s): Keri Penny DO [STAFF PHYSICIAN] - 1 Week Activity/Diet/Wound Care/Special Instructions: Continue previous medications, may restart anticoagulation tonight. Continue regular activity. May shower tomorrow. Discharge Disposition: HOME SELF-CARE
[2024-05-31] MEDS ORDERED: MIDAZOLAM 2 MG/2 ML VIAL IM ONE (08:53)
[2024-05-31] MEDS: MIDAZOLAM 2 MG/2 ML VIAL IVP ONE (09:00)
--- NOTE | 2024-05-31 09:01 | FL ---
EXAMINATION TYPE: FL guided central line placement DATE OF EXAM: 05/31/2024 FLUOROSCOPY Procedure fluoroscopy during placement of injection port along the left chest wall. There is underlyi ng right anterior chest wall pacemaker generator. Left-sided loop recorder device. Prosthetic cardiac valve. Injection port catheter into the low right atrium. An ET tube is slightly low in position yoselin suring 1 cm from the clementina. 50 SEC FL 2.6354 DAP dose 2 images are submitted. [facility], Workstation: [id number], 05/31/2024 8:59 AM
[2024-05-31] MEDS: diphenhydrAMINE 50 MG/ML 1 ML VIAL IVP PRN (09:17)
[2024-05-31 09:53] VITALS: TEMP 96.8
--- NOTE | 2024-05-31 10:18 | XR ---
EXAMINATION TYPE: XR chest 1V portable DATE OF EXAM: 05/31/2024 10:10 AM COMPARISON: 05/02/2024 CLINICAL INDICATION: Female, 59 years old with history of catheter placement, , FINDINGS: Left anterior chest wall injection port. Catheter tip at the mid right atrium. Right chest wall pacem radha generator with single right atrial lead. Prosthetic cardiac valve. Loop recorder device over the left side of the heart. Heart is mildly enlarged. Mild interstitial prominence is similar. No pneumo thorax or sizable pleural effusion. IMPRESSION: 1. Placement of left anterior chest wall injection port. Catheter tip at the mid right atrium. 2. Correlate for some residual mild pulmonary vascular congestion. [facility], , 05/31/2024 10:16 AM
[2024-05-31 10:38] VITALS: BP 103/71; PULSE 75; RESP 18
== END 2024-05-31 11:06 | disposition home or self-care (01) ==
LOC: OR 05:45
PROVIDERS: ATTEND Surgery
DX: T82.7XXA Infection and inflammatory reaction due to other cardiac and vascular devices, implants and grafts, initial encounter (principal); I11.0 Hypertensive heart disease with heart failure; I50.9 Heart failure, unspecified; I25.10 Atherosclerotic heart disease of native coronary artery without angina pectoris; I25.2 Old myocardial infarction; M32.9 Systemic lupus erythematosus, unspecified; G40.909 Epilepsy, unspecified, not intractable, without status epilepticus; N28.9 Disorder of kidney and ureter, unspecified; Z86.711 Personal history of pulmonary embolism; Z79.01 Long term (current) use of anticoagulants; Z79.899 Other long term (current) drug therapy; Z95.2 Presence of prosthetic heart valve; Z90.5 Acquired absence of kidney; Z88.5 Allergy status to narcotic agent; Z88.0 Allergy status to penicillin; Z88.8 Allergy status to other drugs, medicaments and biological substances; Z88.1 Allergy status to other antibiotic agents; Z91.040 Latex allergy status; Z88.7 Allergy status to serum and vaccine; Z91.048 Other nonmedicinal substance allergy status
CPT/HCPCS: 84132; 77001; 71045; 36561; C1788; J2250; J0330; J1200; J1644; J1720; J2003; J3010; J1642; J2704; J1171; J2371

== ENCOUNTER → 2024-06-22 | Day surgery (SDC) | payer MEDICARE ==
[~2024-06-22] MED LIST changes: +FLUMAZENIL 0.1 MG/ML 5 ML VIAL IVP ONE; +MIDAZOLAM 2 MG/2 ML VIAL ONE; -Pre Op ABX Message 1 EACH MISC MISCELLANE ONE; +ROPIVACAINE 5MG/ML 20ML VIAL ONE; +fentaNYL (PF) 50 MCG/ML 2 ML AMP ONE; +methylPREDNISolone ACETATE 80 MG/ML 1 ML VIAL ONE
[2024-06-22 11:44] VITALS: TEMP 98.4
[2024-06-22] MEDS: IV FLUID CONTINUATION 1,000 ML IV ONE ×3 (12:05→15:05)
[2024-06-22] MEDS: LACTATED RINGERS 1,000 ML BAG IV STA (12:15)
[2024-06-22] MEDS: ONDANSETRON 4 MG/2 ML VIAL IVP STA (12:17)
[2024-06-22 12:25] LABS: Glucose,Whole Blood 89 mg/dL (70-110)
--- NOTE | 2024-06-22 12:33 | P.PCN ---
Date of Procedure: 06/22/24 Procedure(s) Performed: Preoperative diagnoses= 1- Greater occipital neuralgia. 2-cervicogenic headache Postoperative diagnoses= 1-greater occipital neuralgia. 2-cervicogenic headache Procedure= Bilateral Greater occipital nerve block. Anesthesia= moderate sedation with Versed 2 mg, fentanyl 50 mcg Sedation start time : 12:28 . Sedation end time :12:30 . Estimated blood loss=minimal. Procedure indication= the patient had a history of severe chronic neck pain ,and headache, diagnosed with occipital neuralgia exam was positive for severe tenderness over the occipital nerve bilaterally, she will be a good candidate occipital nerve block, patient failed conservative management Procedure description= the patient was seen and identified in the preoperative holding area, risks and benefits and alternative of the procedure and possible complications discussed with the patient, and he agreed with the preceding, patient signed the consent, an IV was started, and vital signs were monitored and were stable throughout the procedure, patient was placed in the sitting position or table and the neck area was prepped and draped with a sterile fashion, vital signs were closely monitored during the procedure, 25-gauge needle advanced 1 inch lateral to the occipital protuberance on the right side, at the location of the right occipital nerve , then after negative aspiration for heme and CSF and there was no paresthesia during the injection, 6 ml of Robivacaine 0.5% and 40 mg of Depo-Medrol injected after negative aspiration, the needle removed, and the entire same procedure was repeated for the left Greater occipital nerve. Patient tolerated the procedure well without any complication, The patient returned to supine position after the back was cleaned and a Band- Aid applied, the patient transported to recovery room in stable condition and he was monitored for 30 minutes before he was discharged home and then patient was reexamined before going home and patient was discharged in stable condition and patient will follow up with the pain clinic in a few weeks.
[2024-06-22] MEDS: FAMOTIDINE 20 MG/2 ML VIAL IVP ONE (13:25)
[2024-06-22] MEDS: diphenhydrAMINE 50 MG/ML 1 ML VIAL IVP PRN (13:27)
[2024-06-22 15:39] VITALS: RESP 16
[2024-06-22 15:41] VITALS: BP 113/72; PULSE 51
== END ==
LOC: ORPAIN 11:08
PROVIDERS: ATTEND Specialist
DX: M54.81 Occipital neuralgia (principal); Z79.01 Long term (current) use of anticoagulants; Z88.0 Allergy status to penicillin; Z88.1 Allergy status to other antibiotic agents; Z88.8 Allergy status to other drugs, medicaments and biological substances; Z88.5 Allergy status to narcotic agent; Z88.6 Allergy status to analgesic agent; Z91.040 Latex allergy status
CPT/HCPCS: 64405; J2250; J1200; J2405; J3010; J3490; J2795; J1010

== ENCOUNTER 2024-06-28 09:09 | Day surgery (SDC) | payer MEDICARE ==
[2024-06-27 15:53] VITALS: BMI 29.0
[~2024-06-28 09:09] MED LIST changes: -FLUMAZENIL 0.1 MG/ML 5 ML VIAL IVP ONE; -MIDAZOLAM 2 MG/2 ML VIAL ONE; -ROPIVACAINE 5MG/ML 20ML VIAL ONE; +ceFAZolin 1 GM in SODIUM CHLORIDE 0.9% IRRIG BTL 250 ML IRRIGATION PRN; -fentaNYL (PF) 50 MCG/ML 2 ML AMP ONE; -methylPREDNISolone ACETATE 80 MG/ML 1 ML VIAL ONE
[2024-06-28] MEDS: SODIUM CHLORIDE 0.9% 1,000 ML IV SCH (09:35)
[2024-06-28] MEDS: IV FLUID CONTINUATION 1,000 ML IV ONE (09:39)
[2024-06-28] MEDS: HYDROmorphone 1 MG/ML 1 ML SYRINGE IVP STA (09:42)
[2024-06-28] MEDS: ONDANSETRON 4 MG/2 ML VIAL IVP STA (09:44)
[2024-06-28] MEDS: HYDROmorphone 0.5 MG/0.5 ML SYRINGE IVP STA ×3 (09:45→10:19)
[2024-06-28] MEDS: diphenhydrAMINE 50 MG/ML 1 ML VIAL IVP STA (12:03)
[2024-06-28] MEDS: MIDAZOLAM 2 MG/2 ML VIAL IVP ONE (13:13)
[2024-06-28] MEDS: fentaNYL (PF) 50 MCG/ML 2 ML AMP IVP ONE (13:13)
[2024-06-28] MEDS: LIDOCAINE 1% INJ 10MG/ML (20 ML MDV) SQ ONE ×3 (13:17→13:19)
[2024-06-28 14:10] VITALS: RESP 16
[2024-06-28 14:33] VITALS: BP 106/57; PULSE 63
--- NOTE | 2024-06-29 16:40 | P.PCN ---
Description of Procedure: CARDIOLOGY PROCEDURE NOTE Statistical Reporting Analyst: Dr. Blily Huerta Procedure performed: Single chamber permanent pacemaker generator change Site: Left subclavian Indications: YOLI, sick sinus syndrome Complications: None Blood Loss: Minimal Description of Procedure: After the risks, benefits, and alternatives of the above-mentioned procedure was explained in detail with the patient, informed consent was obtained. The patient was taken to the cardiac catheterization suite where the left subclavian area was sterily prepped and draped in the usual fashion. Patient was given IV Versed and fentanyl for sedation. The skin over the existing pulse generator was infiltrated with lidocaine. An incision was made in the skin and was deepened until the pectoral fascia was exposed. Hemostasis was obtained. The existing pulse generator was pulled out of the pocket. The lead was disconnected and was checked for thresholds. The existing atrial lead was then inserted into the appropriate position into the new generator. The lead was then secured with the setscrew provided. The lead and generator were inserted into the pocket with the leads posterior. The subcutaneous tissue was approximated utilizing #2.0 and 3.0 vicryl in an interrupted stitch fashion. The dermal layer was approximated utilizing #4.0 vicryl. The area was cleansed with sterile saline and dried. A sterile 4x4 dressing was applied and the patient was transferred to the post catheterization holding area in stable and satisfactory condition. The patient tolerated the procedure well. Generator Data Bee Tender: [employer] Brand: [id number] [id number] Marie XT SR MRI Model #: [id number] Serial#: [id number] Right Atrial Bipolar Lead Data: Type: Active fixation lead Bee Tender: [employer] Model#: 4135 Serial Number: [id number] Stimulation Thresholds: Right atrial bipolar lead pacing and sensing thresholds Voltage: 0.5 Impedance: 551 ohms P-wave sensin.4 mV Parameter Setting: Pacing mode is VVI (AAI) Lower rate 60 bpm Upper rate 130 bpm Impressions: 1. Successful generator change of a single chamber permanent pacemaker in the left pectoral site. Plan: 1. Routine post procedure care will be instituted as well as outpatient follow- up surveillance.
== END 2024-06-28 15:11 | disposition home or self-care (01) ==
LOC: CATHEP 09:09
PROVIDERS: ATTEND Internal Medicine
DX: I49.5 Sick sinus syndrome (principal); E78.5 Hyperlipidemia, unspecified; Z88.0 Allergy status to penicillin; Z88.5 Allergy status to narcotic agent; Z91.040 Latex allergy status; Z88.8 Allergy status to other drugs, medicaments and biological substances; Z88.1 Allergy status to other antibiotic agents; Z88.9 Allergy status to unspecified drugs, medicaments and biological substances; Z95.0 Presence of cardiac pacemaker; Z95.4 Presence of other heart-valve replacement; Z79.899 Other long term (current) drug therapy
CPT/HCPCS: 33227; C1786; J2250; J1200; J0690; J2405; J2003; J3010; J1171 ×2; J1642

== ENCOUNTER → 2024-07-19 | Outpatient (CLI) | payer MEDICARE ==
[2024-07-19 13:48] VITALS: BP 109/79; PULSE 71; RESP 71; TEMP 97.6
--- NOTE | 2024-07-19 15:12 | P.PAINPG ---
Objective - Vital Signs Vital signs: Vital Signs Temp 97.6 F 07/19/24 13:43 Pulse 71 07/19/24 13:43 Resp 71 H 07/19/24 13:43 BP 109/79 07/19/24 13:43 Pulse Ox 94 L 07/19/24 13:43 FiO2 Intake & Output 07/18/24 07/19/24 07/19/24 18:59 06:59 18:59 Weight 71.668 kg PQRS Measure Charge Sheet Mode of Arrival: Ambulatory Comment: A 59 yr old female w at side with a history of severe and chronic neck pain secondary to occipital neuralgia, cervicogenic RINALDI presents today for evaluation s/p BL EHSAN #2. Pt states she experienced 95-98% pain relief x 4 wks s/p procedure. Pain level is provoked at 1 /10 in intensity, constant, predominantly axial, localized in the upper cervical spine, sharp in character w occasional shooting towards the sides of the head. Pain is provoked by being in 1 position for periods > 20 min. Pain is alleviated with PT x 6 wks (cervical) which ended in Spring 2023, physician guided stretches daily since Spring 2023, heat, ice, medications, repositioning and rest. Interventional pain procedures completed include BL EHSAN x2 (04/24, 06/26) Patient is currently on Fioricet, Williamson 7.5/325mg #90, Neurontin 600mg #120, Flexeril Patient denies any side effects of the medication(s), denies excessive drowsiness or sleepiness, denies suicidal ideation and reports that the current pain medication is helping to control the pain and improve activities of daily living. Patient denies any motor or sensory deficits. Patient denies any fever or night sweats, denies any change in the bowel movements or urination. Physical Examination: -Constitutional: Cooperative. Not in acute distress . - Neurologic: Cranial nerve II to XII intact. No focal neurological deficits. - Psychatric: Alert & oriented x 3. Matching mood & appropriate affect. Judgment and insight intact. - Musculoskeletal: Cervical spine: +BL EHSAN TTP Muscle bulk/ tone/ strength in the bilateral upper extremities normal Vertebral body tenderness to palpation over Spurling test positive Distraction test positive Facet loading test positive TTP Thoracic spine Muscle bulk / tone/ strength in the bilateral paraspinal muscles normal Vertebral body tender to palpation over Facet loading test positive TTP Lumbar spine: Motor bulk/ tone/ strength lower extremities , thigh and legs : 5/5 Deep tendon reflexes : Normal Knee Jerk. Normal Ankle Jerk . Vertebral body tenderness to palpation over Lumbar Facet Loading Test positive Straight Leg Raise: positive at 30 degrees right side/ left side Gaenslen's Test positive Sacral spine : Severe tenderness over the Sacroiliac joint: right side / left side Range of motion: Flexion of the lumbar spine <60 degrees Range of motion: Extension of the lumbar spine <20 degrees Gaenslen's Test positive R / L Wu test: positive right side / left side Thigh Thrust Test positive R / L Sacral Thrust Test positive R/ L Imaging: CT non contrast brain reviewed Assessment and plan: Chronic neck pain secondary to occipital neuralgia, cervicogenic RINALDI Will manage residual pain and may RTC on an as needed basis. All questions answered. I have spent less than 30 minutes on patient care today. Dr Hirsch was available by phone for the evaluation of this patient. The time was used to review the medical records including relevant urine studies and Prescription history (MAPs), review of the available imaging, evaluation and examination of the patient, coordination of care with the medical staff and if applicable referring physicians, as well as creation of the medical record - Pain Location Neck Pharmacological Interventions: Epidural PQRS Narrative: Blood Pressure 109/79 Pain Intensity [Neck] 1 Scale Used Numeric (1 - 10) Hx Alcohol Use (MH) No Home Medications: Ambulatory Orders Atorvastatin [Lipitor] 40 mg PO HS 09/24/21 Sertraline [Zoloft] 200 mg PO DAILY 09/24/21 Apixaban [Eliquis] 5 mg PO BID 05/29/22 busPIRone HCl [Buspar] 5 mg PO BID 06/11/22 Fludrocortisone [Florinef] 0.1 mg PO DAILY 09/20/22 rOPINIRole HCL [Requip] 2 mg PO HS 04/28/23 Budesonide/Glycopyr/Formoterol [Breztri Aerosphere Inhaler] 2 puff INHALATION RT-BID 12/26/23 Gabapentin 600 mg PO QID@09,13,17,21 12/26/23 Midodrine [ProAmatine] 5 mg PO TID PRN 12/26/23 Ondansetron [Zofran] 4 mg PO TID PRN 12/26/23 Magnesium Oxide [Mag-Ox] 400 mg PO DAILY 90 Days #90 tab 12/31/23 HYDROcodone/APAP 7.5-325MG [Williamson 7.5-325] 1 tab PO TID 04/06/24 Potassium Chloride ER [K-Dur 20] 20 meq PO DAILY 04/06/24 Ipratropium Nebulized [Atrovent Nebulized 0.2 MG/ML] 0.5 mg INHALATION RT-TID 30 Days #90 ml 04/24/24 Pantoprazole [Protonix] 40 mg PO AC-BID 30 Days #60 tab 04/24/24 Bumetanide [BUMEX] 2 mg PO QAM 05/28/24 diphenhydrAMINE [Benadryl] 50 mg IM QID PRN 05/28/24 Cyclobenzaprine [Flexeril] 5 mg PO TID PRN 06/18/24 Hydrocortisone [Cortef] 10 mg PO BID 06/18/24 QUEtiapine [SEROquel] 50 mg PO HS PRN 06/18/24 Bumetanide [Bumex] 1 mg PO HS 06/27/24 Metoprolol Succinate (ER) [Toprol Xl] 50 mg PO DAILY 06/27/24 Spironolactone 50 mg PO HS 06/27/24 Controlled Substance Measures - Controlled Substance Measures Is patient prescribed a controlled substance at discharge?: No
== END ==
LOC: PNWHC3 12:45
PROVIDERS: ATTEND Specialist
DX: M54.81 Occipital neuralgia (principal); G44.86 Cervicogenic headache; Z88.0 Allergy status to penicillin; Z88.1 Allergy status to other antibiotic agents; Z88.6 Allergy status to analgesic agent; Z91.040 Latex allergy status; Z88.5 Allergy status to narcotic agent; Z91.09 Other allergy status, other than to drugs and biological substances; Z88.8 Allergy status to other drugs, medicaments and biological substances
CPT/HCPCS: 99211

== ENCOUNTER → 2024-07-23 | Outpatient (CLI) | payer MEDICARE ==
--- NOTE | 2024-07-23 08:46 | USB ---
Reason for Exam: Clinical finding. Patient History: Menarche at age 13. First Full-Term at age 28. Right ovary removed at age 31. Hysterectomy at age 31. Patient used Hormonal Contraceptives for 14 years. 1995, Bilateral Reduction. Risk Values: Talya 5 year model risk: 1.5%. NCI Lifetime model risk: 7.4%. Technique: Method: Whole Breast Handheld. Prior Study Comparison: 04/28/2010 Bilateral Screening Mammogram, [facility]. 06/07/2011 Bilateral Screening Mammogram, [facility]. Findings: The whole breast of both breasts, the axilla of both breasts and the retroareolar of both breasts were scanned. A complete US of all four quadrants of the breast and retro-areolar region were reviewed. No solid or cystic masses are identified.. Patient diagnostic mammogram due to recent pacemaker placement. Right breast: No solid or cystic lesions. Left breast: There is a 0.8 cm 12:00 hypoechoic lesions. With internal debris. At the 1:00 position there is a lobulated cystic cluster measuring approximately 2.2 cm. Overall Assessment: Probably benign, BI-RAD 3 Management: Diagnostic Breast Ultrasound of the left breast in 3 months. The patient could not have her diagnostic mammogram due to recent pacemaker placement. Recommend follow-up mammogram when appropriate. A clinical breast exam by your physician is recommended on an annual basis and results should be correlated with mammographic findings. This exam should not preclude additional follow-up of suspicious palpable abnormalities. Results were given to the patient verbally at the time of exam. [facility], , 07/23/2024 8:44 AM. Electronically signed and approved by: Franklin Cerrato M.D. Radiologis
== END | disposition home or self-care (01) ==
LOC: RADMAMWWP 07:01
PROVIDERS: ATTEND Family Medicine
DX: N64.4 Mastodynia (principal); Z78.0 Asymptomatic menopausal state; Z92.0 Personal history of contraception

== ENCOUNTER 2024-07-26 20:52 | Emergency (ER) | payer MEDICARE ==
--- NOTE | 2024-07-26 22:53 | ED ---
Abdominal Pain HPI - General Chief Complaint: Abdominal Pain Stated Complaint: Vomitting Time Seen by Provider: 07/26/24 22:13 Source: patient Mode of arrival: wheelchair Limitations: no limitations - History of Present Illness Initial Comments: This patient is a 59-year-old woman who presents with a constellation of symptoms that started around 7 AM. She states that she had the onset of nausea, vomiting, hot flashes, and diffuse abdominal cramping. She has had about 6 episodes of vomiting. No hematemesis or coffee-ground material. She states th at her last bowel movement was yesterday in the morning and was normal. She has been having intermittent hot flashes, but did not take her temperature. No change in urination. MD Complaint: abdominal pain Onset/Timin -: hour(s) Location: diffuse Radiation: none Migration to: no migration Severity: moderate Quality: cramping Consistency: intermittent Improves With: nothing Worsens With: nothing Associated Symptoms: denies other symptoms - Related Data Home Medications Medication Instructions Recorded Confirmed Atorvastatin [Lipitor] 40 mg PO HS 09/24/21 08/14/24 Sertraline [Zoloft] 200 mg PO DAILY 09/24/21 08/14/24 Apixaban [Eliquis] 5 mg PO DIRECTED 05/29/22 08/14/24 busPIRone HCl [Buspar] 5 mg PO BID 06/11/22 08/14/24 Fludrocortisone [Florinef] 0.1 mg PO DAILY 09/20/22 08/14/24 rOPINIRole HCL [Requip] 2 mg PO HS 04/28/23 08/14/24 Budesonide/Glycopyr/Formoterol 2 puff INHALATION RT-BID 12/26/23 08/14/24 [Breztri Aerosphere Inhaler] Gabapentin 600 mg PO BID 12/26/23 08/14/24 Ondansetron [Zofran] 4 mg PO TID PRN 12/26/23 08/14/24 HYDROcodone/APAP 7.5-325MG [[place] 1 tab PO TID 04/06/24 08/14/24 7.5-325] Cyclobenzaprine [Flexeril] 5 mg PO TID PRN 06/18/24 08/14/24 QUEtiapine [SEROquel] 25 mg PO HS PRN 06/18/24 08/14/24 Bumetanide [BUMEX] 1 mg PO HS 06/27/24 08/14/24 Metoprolol Succinate (ER) [Toprol 50 mg PO DAILY 06/27/24 08/14/24 XL] Spironolactone 50 mg PO HS 06/27/24 08/14/24 Hydrocortisone [Cortef] 10 mg PO BID 07/27/24 08/14/24 Previous Rx's Medication Instructions Recorded Pantoprazole [Protonix] 40 mg PO AC-BID 30 Days #60 tab 04/24/24 Midodrine [ProAmatine] 10 mg PO AC-TID tab 07/31/24 Minocycline HCl [Minocin] 100 mg PO BID #20 cap 07/31/24 Potassium Chloride ER [K-Dur 20] 20 meq PO BID tab 07/31/24 Tiotropium 2.5 Mcg/Puff [Spiriva 2 puff INHALATION RT-DAILY each 07/31/24 Respimat 2.5 Mcg] Allergies Allergy/AdvReac Type Severity Reaction Status Date / Time Penicillins Allergy Severe Anaphylaxis Verified 08/14/24 12:38 vancomycin Allergy Severe Swelling Verified 08/14/24 12:38 in lips NSAIDS (Non-Steroidal Allergy Unknown pt has Verified 08/14/24 12: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 and is to not take NSAIDS cefepime Allergy Swelling Verified 08/14/24 12:38 clindamycin Allergy Anaphylaxis Verified 08/14/24 12:38 Influenza Virus Vaccines Allergy Anaphylaxis Verified 08/14/24 12:38 latex Allergy Itching Verified 08/14/24 12:38 and swelling morphine Allergy Anaphylaxis Verified 08/14/24 12:38 albuterol [From Ventolin HFA] AdvReac Rapid Verified 08/14/24 12:38 Heart Rate [id number] AdvReac Confusion, Verified 08/14/24 12:38 [From Emgality Pen] increased blood pressure metoclopramide [From Reglan] AdvReac "felt like Verified 08/14/24 12:38 I needed to jump out of my skin" prochlorperazine AdvReac severe Verified 08/14/24 12:38 [From Compazine] anxiety Review of Systems ROS Statement: Those systems with pertinent positive or pertinent negative responses have been documented in the HPI. ROS Other: All systems not noted in ROS Statement are negative. Constitutional: Reports: as per HPI, fever, chills Respiratory: Denies: cough, dyspnea Cardiovascular: Denies: chest pain, palpitations, edema Gastrointestinal: Reports: abdominal pain, nausea, vomiting. Denies: diarrhea, constipation, melena, hematochezia Genitourinary: Denies: dysuria, frequency, hematuria Musculoskeletal: Denies: back pain Skin: Denies: rash Neurological: Denies: headache, weakness, numbness Past Medical History Past Medical History: Blood Disorder, Myocardial Infarction (RI), Pneumonia, Pulmonary Embolus (PE), Renal Disease, Seizure Disorder Additional Past Medical History / Comment(s): pneumonia on and off since Dec 2023 w/ episone of flareup 06-18-24 hospitalization admission [facility] pseudoseizures,chest pain,pneumonia,pleurisy,Antiphospholipid antibody syndrome which causes clots and bleeding, multiple PEs, R renal artery embolism/now atrophic, CKD stage III, hypotension, hypokalemia especially w/stress, lupus, pyoderma grangrenosum, 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 Patient states past history of C-Diff from 03/2023. last seizure last night twitching, usually with migraines or electrolyte imbalance. has had massive bleeding from xarelto Last Myocardial Infarction Date:: 08/30/2018 History of Any Multi-Drug Resistant Organisms: C-DIFF Date of last positivie culture/infection: 2023 has had three times MDRO Source:: unk Past Surgical History: Back Surgery, Breast Surgery, Cardiac Valve Replacement, Section, Cholecystectomy, Heart Catheterization, Hysterectomy, Pac emaker Additional Past Surgical History / Comment(s): pacemaker d/t bradyca rdia/hypotension with last one place in 2013 in [place], [place], 3 lower back surgeries, bilateral breast reduction. 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. lamenectomy,pacemaker on rt chest, left chest port a cath, Past Anesthesia/Blood Transfusion Reactions: No Reported Reaction Additional Past Anesthesia/Blood Transfusion Reaction / Comment(s): blood transfusion no issues Type of Cardiac Device: Permanent Pacemaker, Unknown Device Placement Date:: 2012 Past Psychological History: Anxiety, PTSD Smoking Status: Never smoker Past Alcohol Use History: Rare Past Drug Use History: Marijuana - Past Family History Mother Additional Family Medical History / Comment(s): Mother at the age of 49 yrs after surgery for silicon breast implants with a leak that caused ARDS and DIC per pt (fibroid cysts) Father Family Medical History: Cancer, Hyperlipidemia, Hypertension Additional Family Medical History / Comment(s): Father is a colon cancer survivor. General Exam Limitations: no limitations General appearance: alert, in no apparent distress Head exam: Present: atraumatic, normocephalic Eye exam: Present: normal appearance. Absent: scleral icterus, conjunctival injection ENT exam: Present: normal oropharynx Neck exam: Present: normal inspection Respiratory exam: Present: normal lung sounds bilaterally. Absent: respiratory distress, wheezes, rales, rhonchi, stridor, accessory muscle use Cardiovascular Exam: Present: regular rate, normal rhythm, normal heart sounds. Absent: systolic murmur, diastolic murmur, rubs, gallop GI/Abdominal exam: Present: soft. Absent: distended, tenderness, guarding, rebound, rigid, mass Extremities exam: Present: normal inspection, normal capillary refill. Absent: pedal edema, calf tenderness Back exam: Present: normal inspection. Absent: CVA tenderness (R), CVA tenderness (L) Neurological exam: Present: alert Skin exam: Present: warm, dry, intact, normal color. Absent: rash Course Vital Signs 07/26/24 07/27/24 07/27/24 21:06 07:47 08:11 Temperature 98.2 F 98.1 F 98.0 F Pulse Rate 79 70 69 Respiratory 22 18 16 Rate Blood Pressure 119/80 107/88 95/57 O2 Sat by Pulse 96 96 96 Oximetry Medical Decision Making - Medical Decision Making Was pt. sent in by a medical professional or institution (, PA, [employer]IVE TECHNICIAN, urgent care, hospital, or half-way...) When possible be specific @ -[No] Did you speak to anyone other than the patient for history (EMS, parent, family, police, friend...)? What history was obtained from this source @ -[No] Did you review nursing and triage notes (agree or disagree)? Why? @ -[I reviewed and agree with nursing and triage notes] Were old charts reviewed (outside hosp., previous admission, EMS record, old EKG, old radiological studies, urgent care reports/EKG's, half-way records)? Report findings @ -[No old charts were reviewed] Differential Diagnosis (chest pain, altered mental status, abdominal pain women, abdominal pain men, vaginal bleeding, weakness, fever, dyspnea, syncope, headache, dizziness, GI bleed, back pain, seizure, CVA, palpatations, mental health, musculoskeletal)? @ -[Differential vomiting: Appendicitis, Cholecystitis, diverticulosis, ischemic bowel, pancreatitis, hepatitis, UTI, gastroenteritis, incarcerated hernia, bowel obstruction, constipation, inflammatory bowel, peptic ulcer disease, perforated viscus, kidney stone, this is not meant to be an all-inclusive list EKG interpreted by me (3pts min.). @ -[As above] X-rays interpreted by me (1pt min.). @ -[None done] CT interpreted by me (1pt min.). @ -[None done] U/S interpreted by me (1pt. min.). @ -[None done] What testing was considered but not performed or refused? (CT, X-rays, U/S, labs)? Why? @ -[None] What meds were considered but not given or refused? Why? @ -[None] Did you discuss the management of the patient with other professionals (professionals i.e. , PA, [employer] TECHNICIAN, lab, RT, psych nurse, community mental health social worker, legal secretary receptionist, teacher, head correction officer, telephonic case manager)? Give summary @ -[No] Was smoking cessation discussed for >3mins.? @ -[No] Was critical care preformed (if so, how long)? @ -[No] Were there social determinants of health that impacted care today? How? (Homelessness, low income, unemployed, alcoholism, drug addiction, transportation, low edu. Level, literacy, decrease access to med. care, [facility], rehab)? @ -[No] Was there de-escalation of care discussed even if they declined (Discuss DNR or withdrawal of care, Hospice)? DNR status @ -[No] What co-morbidities impacted this encounter? (DM, HTN, Smoking, COPD, CAD, Cancer, CVA, ARF, Chemo, Hep., AIDS, mental health diagnosis, sleep apnea, morbid obesity)? @ -[None] Was patient admitted / discharged? Hospital course, mention meds given and route, prescriptions, significant lab abnormalities, going to OR and other pertinent info. @ -[Patient is a 59-year-old woman who presents with multiple episodes of vomiting. The patient had lab studies, had IV fluid, and was found to be moderately hypokalemic. She received replacement. On reevaluation she was feeling better and the repeat level had good improvement. She would like to go home and is stable at this point. Discussed appropriate further care and follow-up as well as return parameters. Undiagnosed new problem with uncertain prognosis? @ -[No] Drug Therapy requiring intensive monitoring for toxicity (Heparin, Nitro, Insulin, Cardizem)? @ -[No] Were any procedures done? @ -[No] Diagnosis/symptom? @ -[Acute kidney injury Acute dehydration Acute hypokalemia Acute, or Chronic, or Acute on Chronic? @ -[Acute Uncomplicated (without systemic symptoms) or Complicated (systemic symptoms)? @ -[Uncomplicated Side effects of treatment? @ -[No] Exacerbation, Progression, or Severe Exacerbation? @ -[No] Poses a threat to life or bodily function? How? (Chest pain, [place], RI, pneumonia, PE, COPD, DKA, ARF, appy, cholecystitis, CVA, Diverticulitis, Homicidal, Suicidal, threat to staff... and all critical care pts) @ -[No] All treatments are based on ideal body weight as in ED triage - Lab Data Result diagrams: 07/27/24 01:10 07/27/24 06:17 Lab Results 07/27/24 07/27/24 07/27/24 Range/Units 00:16 00:16 01:10 WBC 8.5 (3.8-10.6) k/uL RBC 4.83 (3.80-5.40) m/uL Hgb 14.2 (11.4-16.0) gm/dL Hct 43.5 (34.0-46.0) % MCV 90.2 (80.0-100.0) fL MCH 29.5 (25.0-35.0) pg MCHC 32.6 (31.0-37.0) g/dL RDW 13.7 (11.5-15.5) % Plt Count 258 (150-450) k/uL MPV 8.0 Neutrophils % 74 % Lymphocytes % 17 % Monocytes % 6 % Eosinophils % 2 % Basophils % 0 % Neutrophils # 6.3 (1.3-7.7) k/uL Lymphocytes # 1.4 (1.0-4.8) k/uL Monocytes # 0.5 (0-1.0) k/uL Eosinophils # 0.2 (0-0.7) k/uL Basophils # 0.0 (0-0.2) k/uL Sodium 132 L (137-145) mmol/L Potassium 2.6 L* (3.5-5.1) mmol/L Chloride 88 L (98-107) mmol/L Carbon Dioxide 35 H (22-30) mmol/L Anion Gap 9 mmol/L BUN 50 H (7-17) mg/dL Creatinine 1.76 H (0.52-1.04) mg/dL Est GFR (CKD-EPI)AfAm 36 (>60 ml/min/1.73 sqM) Est GFR (CKD-EPI)NonAf 31 (>60 ml/min/1.73 sqM) Glucose 72 L (74-99) mg/dL Plasma Lactic Acid Raffi (0.7-2.0) mmol/L Calcium 9.6 (8.4-10.2) mg/dL Total Bilirubin 0.7 (0.2-1.3) mg/dL AST 32 (14-36) U/L ALT 28 (4-34) U/L Alkaline Phosphatase 75 (38-126) U/L Troponin I 0.013 (0.000-0.034) ng/mL C-Reactive Protein 0.9 (<1.0) mg/dL Total Protein 7.1 (6.3-8.2) g/dL Albumin 4.4 (3.5-5.0) g/dL Amylase 78 (30-110) U/L Lipase 70 (23-300) U/L Influenza Type A (PCR) (Not Detectd) Influenza Type B (PCR) (Not Detectd) RSV (PCR) (Not Detectd) SARS-CoV-2 (PCR) (Not Detectd) 07/27/24 07/27/24 07/27/24 Range/Units 01:10 06:17 06:40 WBC (3.8-10.6) k/uL RBC (3.80-5.40) m/uL Hgb (11.4-16.0) gm/dL Hct (34.0-46.0) % MCV (80.0-100.0) fL MCH (25.0-35.0) pg MCHC (31.0-37.0) g/dL RDW (11.5-15.5) % Plt Count (150-450) k/uL MPV Neutrophils % % Lymphocytes % % Monocytes % % Eosinophils % % Basophils % % Neutrophils # (1.3-7.7) k/uL Lymphocytes # (1.0-4.8) k/uL Monocytes # (0-1.0) k/uL Eosinophils # (0-0.7) k/uL Basophils # (0-0.2) k/uL Sodium (137-145) mmol/L Potassium 3.3 L (3.5-5.1) mmol/L Chloride (98-107) mmol/L Carbon Dioxide (22-30) mmol/L Anion Gap mmol/L BUN (7-17) mg/dL Creatinine (0.52-1.04) mg/dL Est GFR (CKD-EPI)AfAm (>60 ml/min/1.73 sqM) Est GFR (CKD-EPI)NonAf (>60 ml/min/1.73 sqM) Glucose (74-99) mg/dL Plasma Lactic Acid Raffi 1.0 (0.7-2.0) mmol/L Calcium (8.4-10.2) mg/dL Total Bilirubin (0.2-1.3) mg/dL AST (14-36) U/L ALT (4-34) U/L Alkaline Phosphatase (38-126) U/L Troponin I (0.000-0.034) ng/mL C-Reactive Protein (<1.0) mg/dL Total Protein (6.3-8.2) g/dL Albumin (3.5-5.0) g/dL Amylase (30-110) U/L Lipase (23-300) U/L Influenza Type A (PCR) Not Detected (Not Detectd) Influenza Type B (PCR) Not Detected (Not Detectd) RSV (PCR) Not Detected (Not Detectd) SARS-CoV-2 (PCR) Not Detected (Not Detectd) Disposition Clinical Impression: Hypokalemia, RUBEN (acute kidney injury), Dehydration Disposition: HOME SELF-CARE Condition: Fair Is patient prescribed a controlled substance at d/c from ED?: No Referrals: Franklin Hassan MD [Primary Care Provider] - 1-2 days
[2024-07-26] MEDS: HYDROcodone/APAP 5-325MG 1 EACH TAB PO STA (23:20)
[2024-07-27 00:46] LABS: ALT 28 U/L (4-34); AST 32 U/L (14-36); African American GFR (CKD) 36 (>60 ml/min/1.73 sqM); Albumin 4.4 g/dL (3.5-5.0); Alkaline Phosphatase 75 U/L (38-126); Amylase 78 U/L (30-110); Anion Gap 9 mmol/L; Blood Urea Nitrogen 50 mg/dL (7-17); C Reactive Protein 0.9 mg/dL (<1.0); Calcium 9.6 mg/dL (8.4-10.2); Carbon Dioxide 35 mmol/L (22-30); Chloride 88 mmol/L (98-107); Glucose 72 mg/dL (74-99); Lipase 70 U/L (23-300); Non-African American GFR(CKD) 31 (>60 ml/min/1.73 sqM); Sodium 132 mmol/L (137-145); Total Bilirubin 0.7 mg/dL (0.2-1.3); Total Protein 7.1 g/dL (6.3-8.2)
[2024-07-27] MEDS: ONDANSETRON 4 MG/2 ML VIAL IVP STA ×2 (01:16→08:18)
[2024-07-27] MEDS: SODIUM CHLORIDE 0.9% 500 ML 500 ML IV STA ×2 (01:18→08:02)
[2024-07-27 01:23] LABS: Potassium 2.6 mmol/L (3.5-5.1)
[2024-07-27] MEDS: POTASSIUM CHLORIDE ER 20 MEQ TAB.ER PO STA (01:36)
[2024-07-27] MEDS: HYDROmorphone 0.5 MG/0.5 ML SYRINGE IVP STA ×3 (01:37→08:18)
[2024-07-27] MEDS: POTASSIUM BICARBONATE/CIT AC 20 MEQ TABLET.EFF PO ONE (01:50)
[2024-07-27 02:28] LABS: Basophils % (A) 0 %; Eosinophils # (A) 0.2 k/uL (0-0.7); Eosinophils % (A) 2 %; HCT 43.5 % (34.0-46.0); HGB 14.2 gm/dL (11.4-16.0); Lymphocytes # (A) 1.4 k/uL (1.0-4.8); Lymphocytes % (A) 17 %; MCH 29.5 pg (25.0-35.0); MCHC 32.6 g/dL (31.0-37.0); MCV 90.2 fL (80.0-100.0); Monocytes # (A) 0.5 k/uL (0-1.0); Monocytes % (A) 6 %; Neutrophils # (A) 6.3 k/uL (1.3-7.7); Neutrophils % (A) 74 %; Platelet Count 258 k/uL (150-450); RBC 4.83 m/uL (3.80-5.40); RDW 13.7 % (11.5-15.5); WBC 8.5 k/uL (3.8-10.6)
[2024-07-27] MEDS: POTASSIUM CHLORIDE 10 MEQ in WATER FOR INJECTION 1 100ML.BAG IVPB STA (04:54)
[2024-07-27 07:23] LABS: Influenza A Not Detected (Not Detectd); Influenza B Not Detected (Not Detectd); RSV Not Detected (Not Detectd)
[2024-07-27] MEDS: ONDANSETRON 4 MG/2 ML VIAL IM STA (08:03)
[2024-07-27] MEDS: HYDROmorphone 0.5 MG/0.5 ML SYRINGE IM STA (08:05)
[2024-07-27 08:18] VITALS: BP 95/57; PULSE 69; RESP 16; TEMP 98
== END 2024-07-27 08:22 | disposition home or self-care (01) ==
LOC: EC 20:52
DX: E87.6 Hypokalemia (principal); E86.0 Dehydration; N17.9 Acute kidney failure, unspecified; Z88.0 Allergy status to penicillin; Z88.1 Allergy status to other antibiotic agents; Z88.6 Allergy status to analgesic agent; Z88.7 Allergy status to serum and vaccine; Z88.8 Allergy status to other drugs, medicaments and biological substances; Z91.040 Latex allergy status
CPT/HCPCS: 99284 ×2; 96365 ×2; 96366 ×2; 96375 ×3; 96376 ×2; 96372 ×3; 36415; 80053; 82150; 83605; 83690; 84132; 84484; 85025; 86140; 87636; J2405; J3480; J1171

== ENCOUNTER 2024-07-27 16:44 | Inpatient (IN) | payer MEDICARE ==
--- NOTE | 2024-07-27 17:20 | ED ---
Skin/Abscess/FB HPI - General Source: patient <Soila Fischer - Last Filed: 07/27/24 17:18> - General Source: RN notes reviewed, old records reviewed, Caregiver Limitations: no limitations - History of Present Illness MD complaint: rash, lesion, discoloration -: hour(s) Severity: moderate Severity scale (1-10): 4 Quality: aching Consistency: constant Improves with: none Worsens with: none Associated symptoms: chills Treatments Prior to Arrival: bandages <Angel Mayes - Last Filed: 07/31/24 13:39> - General Stated complaint: Port infection draining pus Time Seen by Provider: 07/27/24 17:18 - History of Present Illness Initial comments: Quick [id number] female with history of lupus presenting for port infection. States she has a port on the left chest for her lupus medications as she has bad veins. States she woke up today with the bandage covering the port soaked in pus. Patient also endorses chills and nausea/vomiting. States she was seen in the ER yesterday and discharged. (Soila Fischer) This is a 59 female coming in for possibility of port infection states having active drainage of purulence from left sided chest wall Mediport, surrounding erythema and pain (Angel Mayse) - Related Data Home Medications Medication Instructions Recorded Confirmed Atorvastatin [Lipitor] 40 mg PO HS 09/24/21 07/27/24 Sertraline [Zoloft] 200 mg PO DAILY 09/24/21 07/27/24 Apixaban [Eliquis] 5 mg PO DIRECTED 05/29/22 07/27/24 busPIRone HCl [Buspar] 5 mg PO BID 06/11/22 07/27/24 Fludrocortisone [Florinef] 0.1 mg PO DAILY 09/20/22 07/27/24 rOPINIRole HCL [Requip] 2 mg PO HS 04/28/23 07/27/24 Budesonide/Glycopyr/Formoterol 2 puff INHALATION RT-BID 12/26/23 07/27/24 [Breztri Aerosphere Inhaler] Gabapentin 600 mg PO BID 12/26/23 07/27/24 Midodrine [ProAmatine] 5 mg PO TID PRN 12/26/23 07/27/24 Ondansetron [Zofran] 4 mg PO TID PRN 12/26/23 07/27/24 HYDROcodone/APAP 7.5-325MG [[place] 1 tab PO TID 04/06/24 07/27/24 7.5-325] Potassium Chloride ER [K-Dur 20] 20 meq PO DAILY 04/06/24 07/27/24 Bumetanide [BUMEX] 2 mg PO QAM 05/28/24 07/27/24 Cyclobenzaprine [Flexeril] 5 mg PO TID PRN 06/18/24 07/27/24 QUEtiapine [SEROquel] 25 mg PO HS PRN 06/18/24 07/27/24 Bumetanide [Bumex] 1 mg PO HS 06/27/24 07/27/24 Metoprolol Succinate (ER) [Toprol 50 mg PO DAILY 06/27/24 07/27/24 Xl] Spironolactone 50 mg PO HS 06/27/24 07/27/24 Diphenhydramine Hcl 50mg/Ml 50 mg INJ Q6H PRN 07/27/24 07/27/24 Solution Hydrocortisone [Cortef] 10 mg PO BID 07/27/24 07/27/24 metOLazone [Zaroxolyn] 5 mg PO DAILY PRN 07/27/24 07/27/24 Previous Rx's Medication Instructions Recorded Pantoprazole [Protonix] 40 mg PO AC-BID 30 Days #60 tab 04/24/24 Minocycline HCl [Minocin] 100 mg PO BID #20 cap 07/31/24 Allergies Allergy/AdvReac Type Severity Reaction Status Date / Time Penicillins Allergy Severe Anaphylaxis Verified 07/27/24 20:59 vancomycin Allergy Severe Swelling Verified 07/27/24 20:59 in lips NSAIDS (Non-Steroidal Allergy Unknown pt has Verified 07/27/24 20:59 Anti-Inflamma clotting disorder and is to not take NSAIDS cefepime Allergy Swelling Verified 07/27/24 20:59 clindamycin Allergy Anaphylaxis Verified 07/27/24 20:59 Influenza Virus Vaccines Allergy Anaphylaxis Verified 07/27/24 20:59 latex Allergy Itching Verified 07/27/24 20:59 and swelling morphine Allergy Anaphylaxis Verified 07/27/24 20:59 albuterol [From Ventolin HFA] AdvReac Rapid Verified 07/27/24 20:59 Heart Rate galcanezumab-gnlm AdvReac Confusion, Verified 07/27/24 20:59 [From Emgality Pen] increased blood pressure metoclopramide [From Reglan] AdvReac "felt like Verified 07/27/24 20:59 I needed to jump out of my skin" prochlorperazine AdvReac severe Verified 07/27/24 20:59 [From Compazine] anxiety Review of Systems ROS Other: All systems not noted in ROS Statement are negative. <Soila Fischer - Last Filed: 07/27/24 17:18> ROS Other: All systems not noted in ROS Statement are negative. <Angel Mayes - Last Filed: 07/31/24 13:39> ROS Statement: Those systems with pertinent positive or pertinent negative responses have been documented in the HPI. 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 Patient states past history of C-Diff from 03/2023. last seizure last night twitching, usually with migraines or electrolyte imbalance. has had massive bleeding from xarelto Last Myocardial Infarction Date:: 08/30/2018 History of Any Multi-Drug Resistant Organisms: C-DIFF Date of last positivie culture/infection: 2023 has had three times MDRO Source:: unk Past Surgical History: Back Surgery, Breast Surgery, Cardiac Valve Replacement, Section, Cholecystectomy, Heart Catheterization, Hysterectomy, Pacemaker Additional Past Surgical History / Comment(s): pacemaker d/t bradycardia/hypotension with last one place in 2013 in [place], [place], 3 lower back surgeries, bilateral breast reduction. 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. lamenectomy,pacemaker on rt chest, left chest port a cath, Past Anesthesia/Blood Transfusion Reactions: No Reported Reaction Additional Past Anesthesia/Blood Transfusion Reaction / Comment(s): blood transfusion no issues Type of Cardiac Device: Permanent Pacemaker, Unknown Device Placement Date:: 2012 Past Psychological History: Anxiety, PTSD Smoking Status: Never smoker Past Alcohol Use History: Rare Past Drug Use History: Marijuana - Past Family History Mother Additional Family Medical History / Comment(s): Mother at the age of 49 yrs after surgery for silicon breast implants with a leak that caused ARDS and DIC per pt (fibroid cysts) Father Family Medical History: Cancer, Hyperlipidemia, Hypertension Additional Family Medical History / Comment(s): Father is a colon cancer surv keith. <Soila Fischer - Last Filed: 07/27/24 17:18> General Exam <oSila Fischer - Last Filed: 07/27/24 17:18> General appearance: alert, in no apparent distress Head exam: Present: atraumatic, normocephalic, normal inspection Eye exam: Present: normal appearance, PERRL, EOMI. Absent: scleral icterus, conjunctival injection, periorbital swelling ENT exam: Present: normal exam, mucous membranes moist Neck exam: Present: normal inspection. Absent: tenderness, meningismus, lymphadenopathy Respiratory exam: Present: normal lung sounds bilaterally. Absent: respiratory distress, wheezes, rales, rhonchi, stridor Cardiovascular Exam: Present: regular rate, normal rhythm, normal heart sounds. Absent: systolic murmur, diastolic murmur, rubs, gallop, clicks GI/Abdominal exam: Present: soft, normal bowel sounds. Absent: distended, tenderness, guarding, rebound, rigid Extremities exam: Present: normal inspection, full ROM, normal capillary refill. Absent: tenderness, pedal edema, joint swelling, calf tenderness Back exam: Present: normal inspection Neurological exam: Present: alert, oriented X3, CN II-XII intact Psychiatric exam: Present: normal affect, normal mood Skin exam: Present: warm, dry, intact, normal color. Absent: rash <Angel Mayes - Last Filed: 07/31/24 13:39> - General Exam Comments Initial Comments: Visual Physical Exam General: Well-appearing, nontoxic, no acute distress. Head: Normocephalic, atraumatic Eyes: PERRLA, EOMI ENT: Airway patent Chest: Nonlabored breathing Skin: No visual rash, normal skin tone Neuro: Alert and oriented 3 Musculoskeletal: No gross abnormalities (Soila Fischer) Course <Angel Mayes - Last Filed: 07/31/24 13:39> Vital Signs 07/27/24 07/27/24 17:23 21:36 Temperature 98.6 F Pulse Rate 69 71 Respiratory 17 18 Rate Blood Pressure 111/77 97/60 O2 Sat by Pulse 100 95 Oximetry - Reevaluation(s) Reevaluation #1: 07/27/24 21:18 Record is reviewed (Angel Mayes) Reevaluation #2: 07/27/24 21:18 Patient symptoms unchanged (Angel Mayes) Reevaluation #3: 07/27/24 21:18 Patient informed of results and questions answered (Angel Mayes) Reevaluation #4: Was pt. sent in by a medical professional or institution (, PA, [employer], urgent care, hospital, or senior care...) When possible be specific @ -no Did you speak to anyone other than the patient for history (EMS, parent, family, police, friend...)? What history was obtained from this source @ -no Did you review nursing and triage notes (agree or disagree)? Why? @ -agree Are old charts reviewed (outside hosp., previous admission, EMS record, old EKG, old radiological studies, urgent care reports/EKG's, senior care records)? Rep ort findings @ -yes Differential Diagnosis (chest pain, altered mental status, abdominal pain women, abdominal pain men, vaginal bleeding, weakness, fever, dyspnea, syncope, headache, dizziness, GI bleed, back pain, seizure, CVA, palpatations, mental health, musculoskeletal)? @ -prior EKG interpreted by me (3pts min.). @ -no X-rays interpreted by me (1pt min.). @ -no CT interpreted by me (1pt min.). @ -no U/S interpreted by me (1pt. min.). @ -no What testing was considered but not performed or refused? (CT, X-rays, U/S, labs)? Why? @ -none What meds were considered but not given or refused? Why? @ -none Did you discuss the management of the patient with other professionals (belgica wharton i.e., Dr., PA, [employer], lab, RT, psych nurse, administrator social welfare, education site manager, teacher, navy airspace officer, lead case manager)? Give summary @ -no Was smoking cessation discussed for >3mins.? @ -no Was critical care preformed (if so, how long)? @ -no Were there social determinants of health that impacted care today? How? (Homelessness, low income, unemployed, alcoholism, drug addiction, transportation, low edu. Level, literacy, decrease access to med. care, shelter, rehab)? @ -none Was there de-escalation of care discussed even if they declined (Discuss DNR or withdrawal of care, Hospice)? DNR status @ -no What co-morbidities impacted this encounter? (DM, HTN, Smoking, COPD, CAD, Cancer, CVA, ARF, Chemo, Hep., AIDS, mental health diagnosis, sleep apnea, morbid obesity)? @ -none Was patient admitted / discharged? Hospital course, mention meds given and route, prescriptions, significant lab abnormalities, going to OR and other pertinent info. @ - 59 female will be s admitted to rule out port infection patient feels unwell also complaining of chronic pain. Patient will be admitted for supportive care and rule out bacterial infection bacteremia Admitted Undiagnosed new problem with uncertain prognosis? @ -no Drug Therapy requiring intensive monitoring for toxicity (Heparin, Nitro, Insulin, Cardizem)? @ -no Were any procedures done? @ -no Diagnosis/symptom? @ -History of infections, concern for cellulitis or port infection Acute, or Chronic, or Acute on Chronic? @ -Acute Uncomplicated (without systemic symptoms) or Complicated (systemic symptoms)? @ -Complicated Side effects of treatment? @ -no Exacerbation, Progression, or Severe Exacerbation? @ -exacerbation Poses a threat to life or bodily function? How? (Chest pain, USA, MD, pneumonia, PE, COPD, DKA, ARF, appy, cholecystitis, CVA, Diverticulitis, Homicidal, Suicidal, threat to staff... and all critical care pts) @ -yes medical comorbidity (Roskopp,Angel B) - Consultations Consultation #1: Spoke with Dr. Hassan who agrees to admit this patient (Angel Mayes) Medical Decision Making <Soila Fischer - Last Filed: 07/27/24 17:18> - Lab Data Result diagrams: 07/31/24 02:28 07/31/24 02:28 <Angel Mayes - Last Filed: 07/31/24 13:39> - Medical Decision Making I completed the quick note portion of this chart signed Soila Fischer PA-C (Soila Fischer) 59 female will be s admitted to rule out port infection patient feels unwell also complaining of chronic pain. Patient will be admitted for supportive care and rule out bacterial infection bacteremia (Angel Mayes) - Lab Data Lab Results 07/27/24 07/27/24 07/27/24 Range/Units 18:53 18:53 18:53 WBC 7.6 (3.8-10.6) k/uL RBC 4.73 (3.80-5.40) m/uL Hgb 14.3 (11.4-16.0) gm/dL Hct 41.8 (34.0-46.0) % MCV 88.4 (80.0-100.0) fL MCH 30.3 (25.0-35.0) pg MCHC 34.3 (31.0-37.0) g/dL RDW 13.5 (11.5-15.5) % Plt Count 236 (150-450) k/uL MPV 7.6 Neutrophils % 79 % Lymphocytes % 13 % Monocytes % 5 % Eosinophils % 1 % Basophils % 0 % Neutrophils # 6.0 (1.3-7.7) k/uL Lymphocytes # 1.0 (1.0-4.8) k/uL Monocytes # 0.4 (0-1.0) k/uL Eosinophils # 0.1 (0-0.7) k/uL Basophils # 0.0 (0-0.2) k/uL Sodium 134 L (137-145) mmol/L Potassium 3.2 L (3.5-5.1) mmol/L Chloride 90 L (98-107) mmol/L Carbon Dioxide 31 H (22-30) mmol/L Anion Gap 13 mmol/L BUN 45 H (7-17) mg/dL Creatinine 1.54 H (0.52-1.04) mg/dL Est GFR (CKD-EPI)AfAm 42 (>60 ml/min/1.73 sqM) Est GFR (CKD-EPI)NonAf 36 (>60 ml/min/1.73 sqM) Glucose 110 H (74-99) mg/dL Plasma Lactic Acid Raffi 1.4 (0.7-2.0) mmol/L Calcium 10.0 (8.4-10.2) mg/dL Total Bilirubin 0.6 (0.2-1.3) mg/dL AST 33 (14-36) U/L ALT 29 (4-34) U/L Alkaline Phosphatase 77 (38-126) U/L C-Reactive Protein 2.9 H (<1.0) mg/dL Total Protein 7.6 (6.3-8.2) g/dL Albumin 4.6 (3.5-5.0) g/dL Disposition <Soila Fischer - Last Filed: 07/27/24 17:18> Is patient prescribed a controlled substance at d/c from ED?: No Time of Disposition: 21:00 <Angel Mayes - Last Filed: 07/31/24 13:39> Clinical Impression: RUBEN (acute kidney injury), Bacteremia Narrative: ?MediPort Infection? (Angel Mayes) Disposition: ADMITTED IP TO THIS HOSP Condition: Fair
[2024-07-27 19:09] LABS: Basophils % (A) 0 %; Eosinophils # (A) 0.1 k/uL (0-0.7); Eosinophils % (A) 1 %; HCT 41.8 % (34.0-46.0); HGB 14.3 gm/dL (11.4-16.0); Lymphocytes % (A) 13 %; MCH 30.3 pg (25.0-35.0); MCHC 34.3 g/dL (31.0-37.0); MCV 88.4 fL (80.0-100.0); Mean Platelet Volume 7.6; Monocytes # (A) 0.4 k/uL (0-1.0); Monocytes % (A) 5 %; Neutrophils % (A) 79 %; Platelet Count 236 k/uL (150-450); RBC 4.73 m/uL (3.80-5.40); RDW 13.5 % (11.5-15.5); WBC 7.6 k/uL (3.8-10.6)
[2024-07-27 19:13] LABS: ALT 29 U/L (4-34); AST 33 U/L (14-36); African American GFR (CKD) 42 (>60 ml/min/1.73 sqM); Albumin 4.6 g/dL (3.5-5.0); Alkaline Phosphatase 77 U/L (38-126); Anion Gap 13 mmol/L; Blood Urea Nitrogen 45 mg/dL (7-17); C Reactive Protein 2.9 mg/dL (<1.0); Carbon Dioxide 31 mmol/L (22-30); Chloride 90 mmol/L (98-107); Glucose 110 mg/dL (74-99); Non-African American GFR(CKD) 36 (>60 ml/min/1.73 sqM); Potassium 3.2 mmol/L (3.5-5.1); Sodium 134 mmol/L (137-145); Total Bilirubin 0.6 mg/dL (0.2-1.3); Total Protein 7.6 g/dL (6.3-8.2)
[2024-07-27] MEDS ORDERED: NALOXONE 0.4 MG/ML 1 ML VIAL IV PRN (21:15)
[2024-07-27] MEDS: SODIUM CHLORIDE 0.9% 1,000 ML IV SCH (21:22)
[2024-07-27] MEDS: PROCHLORPERAZINE INJ 10 MG/2 ML VIAL IVP STA (21:23)
[2024-07-27] MEDS: HYDROmorphone 1 MG/ML 1 ML SYRINGE IVP STA (21:31)
[2024-07-27] MEDS: LEVOFLOXACIN 750MG-D5W PMX 750 MG in DEXTROSE/WATER 1 150ML.BAG IVPB STA (22:24)
[2024-07-27] MEDS ORDERED: MIDODRINE 5 MG TAB PO PRN (23:15)
[2024-07-27] MEDS ORDERED: metOLazone 5 MG TAB PO PRN (23:15)
[2024-07-27] MEDS ORDERED: diphenhydrAMINE 50 MG/ML 1 ML VIAL IM PRN (23:30)
[2024-07-27] MEDS: GABAPENTIN 300 MG CAP PO SCH (23:56)
[2024-07-27] MEDS: busPIRone HCl 5 MG TAB PO SCH (23:56)
[2024-07-27] MEDS: HYDROCORTISONE 10 MG TAB PO SCH (23:56)
[2024-07-27] MEDS: BUMETANIDE 1 MG TAB PO SCH (23:56)
[2024-07-27] MEDS: SPIRONOLACTONE 25 MG TAB PO SCH (23:57)
[2024-07-27] MEDS: QUEtiapine 25 MG TAB PO PRN (23:57)
[2024-07-27] MEDS: ATORVASTATIN 40 MG TAB PO SCH (23:57)
[2024-07-28] MEDS: POTASSIUM CHLORIDE 10 MEQ in WATER FOR INJECTION 1 100ML.BAG IVPB SCH (00:06)
[2024-07-28] MEDS: HYDROmorphone 1 MG/ML 1 ML SYRINGE IVP PRN (01:15)
[2024-07-28 02:09] LABS: Appearance,Urine Clear (Clear); Bilirubin,Urine Negative (Negative); Blood,Urine Negative (Negative); Color,Urine Colorless; Glucose,Urine (UA) Negative (Negative); Ketones,Urine Negative (Negative); Leukocyte Esterase,Urine Negative (Negative); Nitrite,Urine Negative (Negative); Protein,Urine Negative (Negative); Specific Gravity,Urine 1.008 (1.001-1.035); Urobilinogen,Urine <2.0 mg/dL (<2.0)
[2024-07-28 06:50] LABS: Basophils % (A) 0 %; Eosinophils # (A) 0.2 k/uL (0-0.7); Eosinophils % (A) 2 %; HCT 41.4 % (34.0-46.0); HGB 13.6 gm/dL (11.4-16.0); Lymphocytes # (A) 1.2 k/uL (1.0-4.8); Lymphocytes % (A) 15 %; MCH 29.7 pg (25.0-35.0); MCHC 32.9 g/dL (31.0-37.0); MCV 90.1 fL (80.0-100.0); Mean Platelet Volume 8.5; Monocytes # (A) 0.5 k/uL (0-1.0); Monocytes % (A) 6 %; Neutrophils # (A) 6.1 k/uL (1.3-7.7); Neutrophils % (A) 75 %; Platelet Count 248 k/uL (150-450); RBC 4.59 m/uL (3.80-5.40); RDW 13.9 % (11.5-15.5); WBC 8.2 k/uL (3.8-10.6)
[2024-07-28 07:48] LABS: ALT 29 U/L (4-34); AST 45 U/L (14-36); African American GFR (CKD) 35 (>60 ml/min/1.73 sqM); Albumin 5.1 g/dL (3.5-5.0); Alkaline Phosphatase 68 U/L (38-126); Anion Gap 24 mmol/L; Blood Urea Nitrogen 46 mg/dL (7-17); Calcium 10.3 mg/dL (8.4-10.2); Carbon Dioxide 20 mmol/L (22-30); Chloride 95 mmol/L (98-107); Glucose 146 mg/dL (74-99); Magnesium 2.3 mg/dL (1.6-2.3); Non-African American GFR(CKD) 31 (>60 ml/min/1.73 sqM); Phosphorus 6.1 mg/dL (2.5-4.5); Sodium 139 mmol/L (137-145)
[2024-07-28 07:54] LABS: Potassium 4.3 mmol/L (3.5-5.1)
[2024-07-28] MEDS: HYDROcodone/APAP 7.5-325MG 1 EACH TAB PO SCH (08:17)
[2024-07-28] MEDS: METOPROLOL SUCCINATE (ER) 50 MG TAB.ER.24H PO SCH (08:18)
[2024-07-28] MEDS: PANTOPRAZOLE 40 MG TABLET PO SCH (08:18)
[2024-07-28] MEDS: POTASSIUM CHLORIDE ER 20 MEQ TAB.ER PO SCH (08:18)
[2024-07-28] MEDS: BUMETANIDE 1 MG TAB PO SCH (08:19)
[2024-07-28] MEDS: SERTRALINE 100 MG TAB PO SCH (08:19)
[2024-07-28] MEDS: FLUDROCORTISONE 0.1 MG TAB PO SCH (08:20)
[2024-07-28] MEDS: TIOTROPIUM 2.5 MCG INHALER INHALATION SCH (08:37)
[2024-07-28] MEDS: SYMBICORT 160-4.5 MCG INHALER INHALATION SCH (08:37)
[2024-07-28] MEDS: ONDANSETRON 4 MG/2 ML VIAL IVP PRN (08:50)
[2024-07-28] MEDS: MIDODRINE 5 MG TAB PO SCH (12:38)
[2024-07-28] MEDS: diphenhydrAMINE 50 MG/ML 1 ML VIAL IVP PRN (16:43)
[2024-07-28] MEDS: CYCLOBENZAPRINE 5 MG TAB PO PRN (18:15)
[2024-07-28] MEDS: LEVOFLOXACIN 750MG-D5W PMX 750 MG in DEXTROSE/WATER 1 150ML.BAG IVPB SCH (20:40)
[2024-07-28] MEDS: SODIUM CHLORIDE 0.9% 1,000 ML IV SCH (23:06)
--- NOTE | 2024-07-29 06:22 | P.CONS ---
History of Present Illness - Reason for Consult Consult date: 07/28/24 Port infection Requesting physician: Franklin Hassan - Chief Complaint Pain swelling redness and drainage of the port site x 2 days - History of Present Illness Patient is a 59-year-old female with a past medical history significant for seizure disorder pneumonia [place] PE antiphospholipid antibodies syndrome in this patient who did have a history of multiple line related sepsis she did have left chest wall Mediport placement May 2024 and presenting to the hospital 2 days ago after the patient did have a fever at home patient was also complaining of developing a blister at the port site after last use and complaining of erythema and drainage from it patient mention she was seen in the ER did have a CBC with normal white count patient was subsequently discharged home no culture were done patient mention after she got home she has more drainage from the port site and did have tenderness to touch to the left chest wall port site she did call her primary care physician who advised her to go back to the hospital as patient presented back to the ER last evening on arrival to the ER patient was afebrile no fever have been called subsequently patient was not tachycardic hypotensive or hypoxic she did have white count of 7.6 BUN and creatinine has been mildly elevated liver isms are normal CRP is 2.9 urine has been negative blood cultures were obtained patient was started on Levaquin infectious disease was consulted because of her multiple antibiotic allergies concerning for possible port infection patient denies having any headache or URI symptoms no chest pain shortness of breath or cough no abdominal pain no diarrhea Review of Systems Positive point and negatives has been mentioned in the HPI, complete review of systems was performed and all other systems are negative Past Medical History Past Medical History: Blood Disorder, Myocardial Infarction ([place]), Pneumonia, Pulmonary Embolus (PE), Renal Disease, Seizure Disorder Additional Past Medical History / Comment(s): pneumonia on and off since Dec 2023 w/ episone of flareup 06-18-24 hospitalization admission [facility] pseudoseizures,chest pain,pneumonia,pleurisy,Antiphospholipid antibody syndrome which causes clots and bleeding, multiple PEs, R renal artery embolism/now atrophic, CKD stage III, hypotension, hypokalemia especially w/stress, lupus, pyoderma grangrenosum, 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 usually with migraines or electrolyte imbalance. has had massive bleeding from xarelto Last Myocardial Infarction Date:: 08/30/2018 History of Any Multi-Drug Resistant Organisms: C-DIFF Year Discovered:: 2023 has had three times MDRO Source:: unk Past Surgical History: Back Surgery, Breast Surgery, Cardiac Valve Replacement, Section, Cholecystectomy, Heart Catheterization, Hysterectomy, Pacemaker Additional Past Surgical History / Comment(s): pacemaker d/t bradycardia/hypotension with last one place in 2013 in [place], [place], 3 lower back surgeries, bilateral breast reduction. tricuspid valve replacement x2 with pig valve. lamenectomy,pacemaker on rt chest, Past Anesthesia/Blood Transfusion Reactions: No Reported Reaction Additional Past Anesthesia/Blood Transfusion Reaction / Comm: blood transfusion no issues Type of Cardiac Device: Permanent Pacemaker, Unknown Device Placement Date:: 2012 Past Psychological History: Anxiety, PTSD Additional Psychological History / Comment(s): Pt resides with her spouse who has dementia and PTSD Smoking Status: Never smoker Past Alcohol Use History: Rare Past Drug Use History: Marijuana Additional Drug Use History / Comment(s): Medical Marijuana use prn per pt. - Past Family History Mother Additional Family Medical History / Comment(s): Mother at the age of 49 yrs after surgery for silicon breast implants with a leak that caused ARDS and DIC per pt (fibroid cysts) Father Family Medical History: Cancer, Hyperlipidemia, Hypertension Additional Family Medical History / Comment(s): Father is a colon cancer survivor. Medications and Allergies Home Medications Medication Instructions Recorded Confirmed Type Atorvastatin [Lipitor] 40 mg PO HS 09/24/21 07/27/24 History Sertraline [Zoloft] 200 mg PO DAILY 09/24/21 07/27/24 History Apixaban [Eliquis] 5 mg PO DIRECTED 05/29/22 07/27/24 History busPIRone HCl [Buspar] 5 mg PO BID 06/11/22 07/27/24 History Fludrocortisone [Florinef] 0.1 mg PO DAILY 09/20/22 07/27/24 History rOPINIRole HCL [Requip] 2 mg PO HS 04/28/23 07/27/24 History Budesonide/Glycopyr/Formoterol 2 puff INHALATION RT-BID 12/26/23 07/27/24 History [Breztri Aerosphere Inhaler] Gabapentin 600 mg PO BID 12/26/23 07/27/24 History Midodrine [ProAmatine] 5 mg PO TID PRN 12/26/23 07/27/24 History Ondansetron [Zofran] 4 mg PO TID PRN 12/26/23 07/27/24 History HYDROcodone/APAP 7.5-325MG [[place] 1 tab PO TID 04/06/24 07/27/24 History 7.5-325] Potassium Chloride ER [K-Dur 20] 20 meq PO DAILY 04/06/24 07/27/24 History Pantoprazole [Protonix] 40 mg PO AC-BID 30 Days #60 tab 04/24/24 07/27/24 Rx Bumetanide [BUMEX] 2 mg PO QAM 05/28/24 07/27/24 History Cyclobenzaprine [Flexeril] 5 mg PO TID PRN 06/18/24 07/27/24 History QUEtiapine [SEROquel] 25 mg PO HS PRN 06/18/24 07/27/24 History Bumetanide [Bumex] 1 mg PO HS 06/27/24 07/27/24 History Metoprolol Succinate (ER) [Toprol 50 mg PO DAILY 06/27/24 07/27/24 History Xl] Spironolactone 50 mg PO HS 06/27/24 07/27/24 History Cephalexin [Keflex] 500 mg PO TID 07/27/24 07/27/24 History Diphenhydramine Hcl 50mg/Ml 50 mg INJ Q6H PRN 07/27/24 07/27/24 History Solution Hydrocortisone [Cortef] 10 mg PO BID 07/27/24 07/27/24 History metOLazone [Zaroxolyn] 5 mg PO DAILY PRN 07/27/24 07/27/24 History Allergies Allergy/AdvReac Type Severity Reaction Status Date / Time Penicillins Allergy Severe Anaphylaxis Verified 07/27/24 20:59 vancomycin Allergy Severe Swelling Verified 07/27/24 20:59 in lips NSAIDS (Non-Steroidal Allergy Unknown pt has Verified 07/27/24 20:59 Anti-Inflamma clotting disorder and is to not take NSAIDS cefepime Allergy Swelling Verified 07/27/24 20:59 clindamycin Allergy Anaphylaxis Verified 07/27/24 20:59 Influenza Virus Vaccines Allergy Anaphylaxis Verified 07/27/24 20:59 latex Allergy Itching Verified 07/27/24 20:59 and swelling morphine Allergy Anaphylaxis Verified 07/27/24 20:59 albuterol [From Ventolin HFA] AdvReac Rapid Verified 07/27/24 20:59 Heart Rate galcanezumab-gnlm AdvReac Confusion, Verified 07/27/24 20:59 [From Emgality Pen] increased blood pressure metoclopramide [From Reglan] AdvReac "felt like Verified 07/27/24 20:59 I needed to jump out of my skin" prochlorperazine AdvReac severe Verified 07/27/24 20:59 [From Compazine] anxiety Physical Exam Vitals: Vital Signs Temp Pulse Pulse Pulse Pulse Pulse Resp 07/28/24 09:42 78 69 74 07/28/24 08:00 98.1 F 71 18 07/28/24 01:51 97.4 F L 72 16 07/27/24 22:58 98.3 F 73 16 07/27/24 21:36 71 18 07/27/24 17:23 98.6 F 69 17 BP BP BP BP BP Pulse Ox 07/28/24 09:42 81/54 88/53 101/64 07/28/24 08:00 106/67 94 L 07/28/24 01:51 117/82 92 L 07/27/24 22:58 102/58 93 L 07/27/24 21:36 97/60 95 07/27/24 17:23 111/77 100 Intake and Output 07/27/24 07/28/24 07/28/24 22:59 06:59 14:59 Intake Total 990 Output Total 300 Balance 690 Intake: Intake, IV Titration 150 Amount Levofloxacin 750Mg-D5w 150 Pmx 750 mg In Dextrose/ Water 1 150ml.bag @ 100 mls/hr IVPB [facility] Rx#: [id number] Oral 840 Output: Urine 300 Other: Voiding Method Toilet # Voids 3 Weight 72.121 kg GENERAL DESCRIPTION: Middle-age female lying in bed, no distress. No tachypnea or accessory muscle of respiration use. HEENT: Shows Pallor , no scleral icterus. Oral mucous membrane is dry. NECK: Trachea central, no thyromegaly. LUNGS: Unlabored breathing. Clear to auscultation anteriorly. No wheeze or crackle. HEART: S1, S2, regular rate and rhythm. No loud murmur ABDOMEN: Soft, no tenderness , EXTREMITIES: No edema of feet. SKIN: Left chest wall port site did have a dried up scab with some erythema no drainage was noticed NEUROLOGICAL: The patient is awake, alert, oriented x3, mood and affect normal. Results CBC & Chem 7: 07/28/24 06:30 07/28/24 06:30 Labs: Abnormal Lab Results - Last 24 Hours (Table) 07/27/24 07/28/24 Range/Units 18:53 06:30 Sodium 134 L (137-145) mmol/L Potassium 3.2 L (3.5-5.1) mmol/L Chloride 90 L 95 L (98-107) mmol/L Carbon Dioxide 31 H 20 L (22-30) mmol/L BUN 45 H 46 H (7-17) mg/dL Creatinine 1.54 H 1.78 H (0.52-1.04) mg/dL Glucose 110 H 146 H (74-99) mg/dL Calcium 10.3 H (8.4-10.2) mg/dL Phosphorus 6.1 H (2.5-4.5) mg/dL AST 45 H (14-36) U/L C-Reactive Protein 2.9 H (<1.0) mg/dL Albumin 5.1 H (3.5-5.0) g/dL Assessment and Plan (1) Infection due to Port-A-Cath Current Visit: Yes Status: Acute Code(s): T80.219A - UNSP INFECTION DUE TO CENTRAL VENOUS CATHETER, INIT ENCNTR SNOMED Code(s): 185341161 (2) Allergy to multiple antibiotics Current Visit: No Status: Acute Code(s): Z88.1 - ALLERGY STATUS TO OTHER ANTIBIOTIC AGENTS SNOMED Code(s): 571504847 Plan: 1patient presented to hospital with pain drainage erythema to the left chest wall port site concerning for port infection likely from gram-positive skin maddie gram-negative infection less likely but not entirely excluded 2patient with multiple antibiotic ALLERGIES that would limit the number of antibiotic safe to use. 3blood culture has been obtained results will be followed. 4we will start the patient on daptomycin 6 mg/kg daily while waiting for the culture to finalize. We will follow on clinical condition and cultures to further adjust medication if needed Thank you for this consultation we will follow the patient along with you Dictation was produced using [employer] dictation software. please excuse any grammatical, word or spelling errors. Time with Patient: Greater than 30
[2024-07-29 07:46] LABS: Basophils % (A) 0 %; Eosinophils # (A) 0.2 k/uL (0-0.7); Eosinophils % (A) 2 %; HCT 37.4 % (34.0-46.0); HGB 12.4 gm/dL (11.4-16.0); Lymphocytes % (A) 14 %; MCH 29.8 pg (25.0-35.0); MCHC 33.2 g/dL (31.0-37.0); MCV 89.8 fL (80.0-100.0); Mean Platelet Volume 7.7; Monocytes # (A) 0.4 k/uL (0-1.0); Monocytes % (A) 6 %; Neutrophils # (A) 5.8 k/uL (1.3-7.7); Neutrophils % (A) 76 %; Platelet Count 222 k/uL (150-450); RBC 4.16 m/uL (3.80-5.40); RDW 13.7 % (11.5-15.5); WBC 7.6 k/uL (3.8-10.6)
[2024-07-29 08:06] LABS: ALT 23 U/L (4-34); AST 31 U/L (14-36); African American GFR (CKD) 42 (>60 ml/min/1.73 sqM); Albumin/Globulin Ratio 1.5; Alkaline Phosphatase 66 U/L (38-126); Anion Gap 10 mmol/L; Blood Urea Nitrogen 33 mg/dL (7-17); Calcium 9.3 mg/dL (8.4-10.2); Carbon Dioxide 32 mmol/L (22-30); Chloride 89 mmol/L (98-107); Globulin 2.6 g/dL; Glucose 86 mg/dL (74-99); Non-African American GFR(CKD) 36 (>60 ml/min/1.73 sqM); Potassium 2.9 mmol/L (3.5-5.1); Sodium 131 mmol/L (137-145); Total Bilirubin 0.7 mg/dL (0.2-1.3); Total Protein 6.6 g/dL (6.3-8.2)
[2024-07-29] MEDS: POTASSIUM CHLORIDE ER 20 MEQ TAB.ER PO STA (09:04)
--- NOTE | 2024-07-29 12:10 | P.PN ---
Subjective Progress Note Date: 07/29/24 Principal diagnosis: Reason for follow-up is possible port infection/chest wall cellulitis Patient is a 59-year-old female with a past medical history significant for seizure disorder pneumonia IN PE antiphospholipid antibodies syndrome in this patient who did have a history of multiple line related sepsis she did have left chest wall port placement May 2024 presented to hospital with fever pain and redness as well as drainage to the port site concerning for possible port infection. On today's evaluation that is 07/29/2024, Patient is afebrile patient is curr ently on room air and denies having any shortness of breath, the patient denies any chest pain or cough, the patient denies any nausea vomiting did not have any abdominal pain and no diarrhea, overall pain to the left chest wall port site has decreased. Patient white count 7.6, creatinine is 1.54 blood cultures currently pending Objective - Vital Signs Vital signs: Vital Signs Temp 98.4 F 07/29/24 07:18 Pulse 69 07/29/24 07:18 Resp 18 07/29/24 07:18 BP 102/64 07/29/24 07:18 Pulse Ox 99 07/29/24 07:18 FiO2 Intake & Output 07/28/24 07/29/24 07/29/24 18:59 06:59 18:59 Intake Total 1550 Balance 1550 Intake: Oral 1550 Other: Voiding Method Toilet Toilet Toilet # Voids 2 3 - Exam GENERAL DESCRIPTION: Middle-age female up in bed in no distress RESPIRATORY SYSTEM: Unlabored breathing , decreased breath sounds at bases HEART: S1 S2 regular rate and rhythm , ABDOMEN: Soft , no tenderness Left chest wall port site redness slightly decreased no drainage - Labs CBC & Chem 7: 07/29/24 07:26 07/29/24 07:26 Labs: Abnormal Lab Results - Last 24 Hours (Table) 07/29/24 Range/Units 07:26 Sodium 131 L (137-145) mmol/L Potassium 2.9 L (3.5-5.1) mmol/L Chloride 89 L (98-107) mmol/L Carbon Dioxide 32 H (22-30) mmol/L BUN 33 H (7-17) mg/dL Creatinine 1.54 H (0.52-1.04) mg/dL Microbiology - Last 24 Hours (Table) 07/27/24 21:52 Blood Culture - Preliminary Blood Assessment and Plan (1) Infection due to Port-A-Cath Current Visit: Yes Status: Acute Code(s): T80.219A - UNSP INFECTION DUE TO CENTRAL VENOUS CATHETER, INIT ENCNTR SNOMED Code(s): 569584488 (2) Allergy to multiple antibiotics Current Visit: No Status: Acute Code(s): Z88.1 - ALLERGY STATUS TO OTHER ANTIBIOTIC AGENTS SNOMED Code(s): 307222277 Plan: 1patient presented to hospital with pain drainage erythema to the left chest w all port site concerning for port infection likely from gram-positive skin maddie gram-negative infection less likely but not entirely excluded 2patient with multiple antibiotic ALLERGIES that would limit the number of antibiotic safe to use. 3blood culture has been obtained which are currently pending 4patient will be treated with daptomycin 6 mg/kg daily while waiting for the culture to finalize. Multiple question answered Dictation was produced using [employer] dictation software. please excuse any grammatical, word or spelling errors.
[2024-07-29] MEDS: LORazepam 1 MG/0.5 ML VIAL IV STA (13:20)
[2024-07-30] MEDS: ONDANSETRON ODT 4 MG TAB PO PRN (02:46)
[2024-07-30] MEDS: SODIUM CHLORIDE 0.9% 1,000 ML IV ONE (03:15)
--- NOTE | 2024-07-30 04:30 | CT ---
EXAM: CT Head Without Intravenous Contrast CLINICAL HISTORY: POSSIBLE SEIZURE 07/29/24 DURING DAY TECHNIQUE: Axial computed tomography images of the head/brain without intravenous contrast. Coronal and sagittal reconstructions are performed. CTDI is 49.2 mGy and DLP is 1229.4 mGy-cm. This CT exam was performed using one or more of the following dose reduction techniques: automated exposure control, adjustment of the mA and/or kV according to patient size, and/or use of iterative reconstruction technique. 298 images COMPARISON: 04/23/24 FINDINGS: Brain: Unremarkable. No hemorrhage. No significant white matter disease. No edema. Ventricles: Unremarkable. No ventriculomegaly. Bones/joints: No acute findings. Soft tissues: Unremarkable. Sinuses: Unremarkable as visualized. No acute sinusitis. Mastoid air cells: Unremarkable as visualized. No mastoid effusion. Auditory system: Small bilateral cerumen. IMPRESSION: No acute findings in the head/brain.
[2024-07-30] MEDS: MIDODRINE 5 MG TAB PO SCH (09:38)
--- NOTE | 2024-07-30 11:07 | P.GSCN ---
History of Present Illness Consult date: 07/30/24 Reason for Consult: Infected port Requesting physician: Franklin Hassan History of present illness: A pleasant 59-year-old female known to vascular surgical services with a history of immune disorder requiring infusions with difficult access. She has had previous infected Mediport in the past requiring removal. She presented to the emergency department 4 days ago with complaints of redness and serosanguineous and pussy drainage from her port site. She has a left IJ Mediport that was placed on 05/31/[address] Gomez. She initially was seen on 07/26/2024 in the emergency department for same complaint however had no leukocytosis and was afebrile. She was sent home on oral antibiotics. She returned the next day stating she was still having some drainage. She was admitted with consultation to infectious disease and vascular surgery. Again this admission no leukocytosis, blood cultures are with no growth at 48 hours. She has been afebrile this admission. No redness, tenderness at this time. She states she has not had any further drainage. On admission infectious disease had noted there was a scab and chest wall without any drainage. Patient denies any shortness of breath, chest pain, abdominal pain, nausea or vomiting. She denies any fevers, chills, or bodyaches. States that she had a fever prior to her admission. Review of Systems A 14 point review systems was completed all pertinent positives and negatives as stated in the HPI. 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 usually with migraines or electrolyte imbalance. 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 tricuspid valve replacement x2 with pig valve. lamenectomy,pacemaker on rt chest, Past Anesthesia/Blood Transfusion Reactions: No Reported Reaction Additional Past Anesthesia/Blood Transfusion Reaction / Comm: blood transfusion no issues Type of Cardiac Device: Permanent Pacemaker, Unknown Device Placement Date:: 2012 Past Psychological History: Anxiety, PTSD Additional Psychological History / Comment(s): Pt resides with her spouse who has dementia and PTSD Smoking Status: Never smoker Past Alcohol Use History: Rare Past Drug Use History: Marijuana Additional Drug Use History / Comment(s): Medical Marijuana use prn per pt. - Past Family History Mother Additional Family Medical History / Comment(s): Mother at the age of 49 yrs after surgery for silicon breast implants with a leak that caused ARDS and DIC per pt (fibroid cysts) Father Family Medical History: Cancer, Hyperlipidemia, Hypertension Additional Family Medical History / Comment(s): Father is a colon cancer survivor. Medications and Allergies Home Medications Medication Instructions Recorded Confirmed Type Atorvastatin [Lipitor] 40 mg PO HS 09/24/21 07/27/24 History Sertraline [Zoloft] 200 mg PO DAILY 09/24/21 07/27/24 History Apixaban [Eliquis] 5 mg PO DIRECTED 05/29/22 07/27/24 History busPIRone HCl [Buspar] 5 mg PO BID 06/11/22 07/27/24 History Fludrocortisone [Florinef] 0.1 mg PO DAILY 09/20/22 07/27/24 History rOPINIRole HCL [Requip] 2 mg PO HS 04/28/23 07/27/24 History Budesonide/Glycopyr/Formoterol 2 puff INHALATION RT-BID 12/26/23 07/27/24 History [Breztri Aerosphere Inhaler] Gabapentin 600 mg PO BID 12/26/23 07/27/24 History Midodrine [ProAmatine] 5 mg PO TID PRN 12/26/23 07/27/24 History Ondansetron [Zofran] 4 mg PO TID PRN 12/26/23 07/27/24 History HYDROcodone/APAP 7.5-325MG [[place] 1 tab PO TID 04/06/24 07/27/24 History 7.5-325] Potassium Chloride ER [K-Dur 20] 20 meq PO DAILY 04/06/24 07/27/24 History Pantoprazole [Protonix] 40 mg PO AC-BID 30 Days #60 tab 04/24/24 07/27/24 Rx Bumetanide [BUMEX] 2 mg PO QAM 05/28/24 07/27/24 History Cyclobenzaprine [Flexeril] 5 mg PO TID PRN 06/18/24 07/27/24 History QUEtiapine [SEROquel] 25 mg PO HS PRN 06/18/24 07/27/24 History Bumetanide [Bumex] 1 mg PO HS 06/27/24 07/27/24 History Metoprolol Succinate (ER) [Toprol 50 mg PO DAILY 06/27/24 07/27/24 History Xl] Spironolactone 50 mg PO HS 06/27/24 07/27/24 History Cephalexin [Keflex] 500 mg PO TID 07/27/24 07/27/24 History Diphenhydramine Hcl 50mg/Ml 50 mg INJ Q6H PRN 07/27/24 07/27/24 History Solution Hydrocortisone [Cortef] 10 mg PO BID 07/27/24 07/27/24 History metOLazone [Zaroxolyn] 5 mg PO DAILY PRN 07/27/24 07/27/24 History Allergies Allergy/AdvReac Type Severity Reaction Status Date / Time Penicillins Allergy Severe Anaphylaxis Verified 07/27/24 20:59 vancomycin Allergy Severe Swelling Verified 07/27/24 20:59 in lips NSAIDS (Non-Steroidal Allergy Unknown pt has Verified 07/27/24 20:59 Anti-Inflamma clotting disorder and is to not take NSAIDS cefepime Allergy Swelling Verified 07/27/24 20:59 clindamycin Allergy Anaphylaxis Verified 07/27/24 20:59 Influenza Virus Vaccines Allergy Anaphylaxis Verified 07/27/24 20:59 latex Allergy Itching Verified 07/27/24 20:59 and swelling morphine Allergy Anaphylaxis Verified 07/27/24 20:59 albuterol [From Ventolin HFA] AdvReac Rapid Verified 07/27/24 20:59 Heart Rate galcanezumab-gnlm AdvReac Confusion, Verified 07/27/24 20:59 [From Emgality Pen] increased blood pressure metoclopramide [From Reglan] AdvReac "felt like Verified 07/27/24 20:59 I needed to jump out of my skin" prochlorperazine AdvReac severe Verified 07/27/24 20:59 [From Compazine] anxiety Surgical - Exam Vital Signs Temp Pulse Resp BP Pulse Ox 98.6 F 69 17 111/77 100 07/27/24 17:23 07/27/24 17:23 07/27/24 17:23 07/27/24 17:23 07/27/24 17:23 General appearance: The patient is alert, oriented, appears in no acute distress. HET: Head is normocephalic and atraumatic. Pupils are equal and reactive. Neck: Supple. Heart: Regular. Lungs: Equal expansion, normal respiratory effort. Abdomen: Soft, nontender, nondistended. Extremities: Normal skin color and turgor. Skin: Left upper chest wall with scab over Mediport, no redness, swelling or drainage. Nontender to palpation. Neurological: No focal deficits. Results - Labs 07/29/24 07:26 07/29/24 07:26 Microbiology - Last 24 Hours (Table) 07/27/24 21:52 Blood Culture - Preliminary Blood Assessment and Plan Assessment: 1. Drainage from Mediport 2. Possible infected Mediport Plan: Patient has been seen and evaluated. Left-sided chest wall Mediport is in place has scab with no surrounding erythema, swelling or drainage. Nontender to palpation. No leukocytosis, afebrile and blood cultures are with no growth to date. Unlikely infected port. No surgical intervention planned from vascular surgery. No plans to remove port at this time. Continue with recommendations from infectious disease. Patient is cleared from vascular surgery for discharge. Thank you for this consultation, we will sign off at this time. Please do not hesitate to call us back if further needed. The impression and plan of care has been dictated as directed. Dr. Christina Shearer performed a history and examination of this patient, discussed the same with the dictator. I agree with the dictator's note ,documented as a scribe. Any additional findings or plans will be noted.
[2024-07-30 11:26] LABS: Magnesium 1.8 mg/dL (1.5-2.4)
[2024-07-30 11:38] LABS: ALT 22 U/L (8-44); AST 33 U/L (13-35); Albumin/Globulin Ratio 1.82 Ratio (1.60-3.17); Alkaline Phosphatase 62 U/L (41-126); BUN/Creat Ratio 15.07 Ratio (12.00-20.00); Blood Urea Nitrogen 22.6 mg/dL (9.0-27.0); Carbon Dioxide 29.7 mmol/L (21.6-31.8); Chloride 94 mmol/L (96-109); Globulin 2.2 g/dL (1.6-3.3); Glucose 96 mg/dL (70-110); Potassium 2.5 mmol/L (3.5-5.5); Sodium 140 mmol/L (135-145); Total Bilirubin 0.3 mg/dL (0.3-1.2); Total Protein 6.2 g/dL (6.2-8.2)
[2024-07-30] MEDS ORDERED: Potassium Replacement Protocol 1 EACH MISC MISCELLANE PRN (12:42)
[2024-07-30] MEDS: POTASSIUM CHLORIDE ER 20 MEQ TAB.ER PO ONE (13:23)
[2024-07-30] MEDS: POTASSIUM CHLORIDE ER 20 MEQ TAB.ER PO SCH ×3 (13:24→20:42)
--- NOTE | 2024-07-30 14:21 | HP ---
HISTORY AND PHYSICAL HISTORY OF PRESENT ILLNESS: A 59-year-old white female, who is being admitted for port infection. Consult had been ordered for . She has had some pus coming out from the port, she says, and pus. This morning, she had some chills and nausea. She has slightly low potassium on admission. She has had this before and fact reports she has a history of lupus and autoimmune disease. MEDICATIONS: 1. Florinef 0.1 daily. 2. BuSpar 5 b.i.d. 3. Eliquis 5 daily. 4. Zoloft 200 daily. 5. Lipitor 40 daily. 6. 20 mEq daily. 7. Bumex 2 mg daily. 8. Seroquel 25 at night. 9. Bumex 1 mg at night. 10.Metoprolol-XL 50 daily. ALLERGIES: See list. REVIEW OF SYSTEMS: 14-point review of systems otherwise negative. PAST MEDICAL HISTORY: See old list. SURGICAL HISTORY: See old list. PHYSICAL EXAMINATION: GENERAL: She is alert, in no acute distress. CARDIOVASCULAR: S1, S2. LUNGS: Show mild wheeze. No stridor. GI: Soft. EXTREMITIES: No edema. BACK: Normal to inspection. NEUROLOGIC: Cranial nerves intact. PSYCHIATRIC: Poor mood and affect. SKIN: Warm and dry. VITAL SIGNS: Blood pressure 111/77, temp 98.6, pulse 74. INTEGUMENT EXAM: Site looks red around the port, lots of pus that I could see. Sodium 134, potassium 3.2, BUN 45, creatinine 1.54. ASSESSMENT: 1. Port infection, rule out sepsis. 2. Hyponatremia. 3. Hyperkalemia. 4. Acute renal insufficiency. 5. Mild dehydration. 6. Multiple autoimmune diseases per past medical history including lupus, chronic renal disease, history of pulmonary embolism, myocardial infarction, pneumonia, . Prognosis guarded. Continue current treatment. Please see further orders. MMODL / IJN: [id number] /
--- NOTE | 2024-07-30 14:21 | HP ---
HISTORY AND PHYSICAL HISTORY OF PRESENT ILLNESS: She was admitted with port infection of the left upper chest. She has moderate amount of redness around the central abscess area in the middle over her port in the anterior chest. She is admitted with IV antibiotics and for further workup. PHYSICAL EXAMINATION: VITAL SIGNS: Temperature 98.4, respiratory rate 18, pulse 70s, blood pressure 81/40 to 109/63. CARDIOVASCULAR: S1, S2. LUNGS: Transmitted upper sounds. Scattered wheeze. HEMATOLOGY: Negative Homans. PSYCH: Fair mood and affect. GI: Soft. INTEGUMENT: 3 to 4 cm redness around top of the port area with a razor tip size also under the dermal layer over the pacemaker area in the middle of the red area. She had orthostatic hypotension today, midodrine was started. LABORATORY DATA: White count 7.6, hemoglobin is 14.6, sodium is 134, potassium 3.2, pulse of potassium was given. BUN is 45, creatinine 1.54. GFR went from 36 to 41. She is definitely dehydrated. Urine is negative. PLAN: Continue with IV antibiotics. Cultures. Wait for Infectious Disease and Vascular look at the port. Prognosis guarded. MMODL / IJN: [id number] /
--- NOTE | 2024-07-30 14:22 | PN ---
PROGRESS NOTE Admitted for port infection. Her arm looks much better today, although this afternoon, she had a possible seizure. She was given some Ativan. We will also consult Neurology for seizures versus pseudoseizures. PHYSICAL EXAMINATION: VITAL SIGNS: Temp 97.9, blood pressure is 80s to 90s over 50s. O2 is 95 to 96. CARDIOVASCULAR: S1, S2. LUNGS: Transmitted upper airway sounds. GI: Soft. LABORATORY DATA: White count 7.0. Her creatinine is 1.54. Continue to wait for blood cultures per Dr. Luo. IV antibiotics have been started. Her son withdrew the Port-A-Cath and has been on multiple antibiotics and has been starting daptomycin at this time. Continue with current treatments. Check for orthostatic hypotension. Prognosis is guarded. MMODL / IJN: [id number] /
[2024-07-30] MEDS: HYDROmorphone 0.5 MG/0.5 ML SYRINGE IVP PRN (17:51)
[2024-07-30] MEDS ORDERED: LORazepam 2 MG/ML INJ IV PRN (21:13)
[2024-07-30] MEDS: LORazepam 1 MG/0.5 ML VIAL IV PRN (21:33)
--- NOTE | 2024-07-31 02:49 | PN ---
PROGRESS NOTE SUBJECTIVE: A 59-year-old white female, came in with a port infection, which has mostly healed and improved. She has had low potassium and cut back on diuretics, gave boluses of potassium. She has had seizures yesterday x1, today x1. Neurology is on consult. Most likely could be psychosis, pseudo-seizure versus seizure, has been worse because of her potassium being off. Blood pressure is 118/70, temp 97.1, pulse 71, O2 of 96% on 2 L. Potassium tonight is 3.4, up from 2.5 this afternoon. Ativan was given x1 for her seizure. Wait for neuro workup. Switch to oral antibiotics on discharge once potassium is stable and she is not receiving. Prognosis guarded. MMODL / IJN: [id number] /
[2024-07-31 03:22] LABS: ALT 19 U/L (4-34); AST 30 U/L (14-36); African American GFR (CKD) 48 (>60 ml/min/1.73 sqM); Albumin 3.5 g/dL (3.5-5.0); Albumin/Globulin Ratio 1.4; Alkaline Phosphatase 52 U/L (38-126); Anion Gap 8 mmol/L; Blood Urea Nitrogen 23 mg/dL (7-17); Carbon Dioxide 32 mmol/L (22-30); Chloride 99 mmol/L (98-107); Globulin 2.5 g/dL; Glucose 115 mg/dL (74-99); Non-African American GFR(CKD) 42 (>60 ml/min/1.73 sqM); Potassium 3.6 mmol/L (3.5-5.1); Sodium 139 mmol/L (137-145); Total Bilirubin 0.4 mg/dL (0.2-1.3)
[2024-07-31 03:57] LABS: Basophils % (A) 0 %; Eosinophils # (A) 0.2 k/uL (0-0.7); Eosinophils % (A) 3 %; HCT 36.2 % (34.0-46.0); HGB 12.3 gm/dL (11.4-16.0); Lymphocytes # (A) 0.9 k/uL (1.0-4.8); Lymphocytes % (A) 13 %; MCH 30.7 pg (25.0-35.0); MCHC 33.8 g/dL (31.0-37.0); MCV 90.9 fL (80.0-100.0); Monocytes # (A) 0.6 k/uL (0-1.0); Monocytes % (A) 9 %; Neutrophils # (A) 4.8 k/uL (1.3-7.7); Neutrophils % (A) 73 %; Platelet Count 263 k/uL (150-450); RBC 3.99 m/uL (3.80-5.40); RDW 14.3 % (11.5-15.5); WBC 6.6 k/uL (3.8-10.6)
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
[2024-07-31 12:52] VITALS: RESP 20
--- NOTE | 2024-07-31 12:59 | P.PN ---
Subjective Progress Note Date: 07/30/24 Principal diagnosis: Reason for follow-up is possible port infection/chest wall cellulitis Patient is a 59-year-old female with a past medical history significant for seizure disorder pneumonia NE PE antiphospholipid antibodies syndrome in this patient who did have a history of multiple line related sepsis she did have left chest wall port placement May 2024 presented to hospital with fever pain and redness as well as drainage to the port site concerning for possible port infection. On today's evaluation that is 07/30/2024, patient has been afebrile, patient is breathing comfortably and is currently on room air, patient denies having any significant cough no chest pain, patient denies nausea vomiting or diarrhea and no abdominal pain, pain to the left chest wall has decreased in intensity no drainage. Patient did have a magnesium of 1.7 no CBC was done blood culture negative so far Objective - Vital Signs Vital signs: Vital Signs Temp 98 F 07/30/24 07:31 Pulse 60 07/30/24 07:31 Resp 18 07/30/24 07:31 BP 119/73 07/30/24 07:31 Pulse Ox 100 07/30/24 07:31 FiO2 Intake & Output 07/29/24 07/30/24 07/30/24 18:59 06:59 18:59 Other: Voiding Method Toilet Toilet Toilet # Voids 2 3 - Exam GENERAL DESCRIPTION: Middle-age female up in bed in no distress RESPIRATORY SYSTEM: Unlabored breathing , decreased breath sounds at bases HEART: S1 S2 regular rate and rhythm , ABDOMEN: Soft , no tenderness Left chest wall port site redness slightly decreased no drainage - Labs CBC & Chem 7: 07/31/24 02:28 07/31/24 02:28 Labs: Microbiology - Last 24 Hours (Table) 07/27/24 21:52 Blood Culture - Preliminary Blood Assessment and Plan (1) Infection due to Port-A-Cath Current Visit: Yes Status: Acute Code(s): T80.219A - UNSP INFECTION DUE TO CENTRAL VENOUS CATHETER, INIT ENCNTR SNOMED Code(s): 339351341 (2) Allergy to multiple antibiotics Current Visit: No Status: Acute Code(s): Z88.1 - ALLERGY STATUS TO OTHER ANTIBIOTIC AGENTS SNOMED Code(s): 477687395 Plan: 1patient presented to hospital with pain drainage erythema to the left chest wall port site concerning for port infection likely from gram-positive skin maddie gram-negative infection less likely but not entirely excluded 2patient with multiple antibiotic ALLERGIES that would limit the number of antibiotic safe to use. 3blood culture has been obtained which are currently pending 4patient to continue with daptomycin 6 mg/kg daily while waiting for the culture to finalize waiting for the culture to finalize. Multiple question answered Dictation was produced using [employer] dictation software. please excuse any grammatical, word or spelling errors. Time with Patient: Less than 30
--- NOTE | 2024-07-31 13:01 | P.PN ---
Subjective Progress Note Date: 07/31/24 Principal diagnosis: Reason for follow-up is possible port infection/chest wall cellulitis Patient is a 59-year-old female with a past medical history significant for seizure disorder pneumonia [place] PE antiphospholipid antibodies syndrome in this patient who did have a history of multiple line related sepsis she did have left chest wall port placement May 2024 presented to hospital with fever pain and redness as well as drainage to the port site concerning for possible port infection. On today's evaluation that is 07/31/2024, Patient is afebrile this morning pa tient denies having any chest pain shortness of breath or cough, the patient is currently on room air, patient denies any abdominal pain no diarrhea no nausea no vomiting, pain and swelling to the left chest wall has decreased to resolve no drainage. Patient mention feeling better wants to go home Patient white count 6.6, creatinine is 1.38 blood culture has been negative so far Objective - Vital Signs Vital signs: Vital Signs Temp 98.0 F 07/31/24 07:18 Pulse 70 07/31/24 07:18 Resp 18 07/31/24 07:18 BP 107/71 07/31/24 07:18 Pulse Ox 96 07/31/24 07:18 FiO2 Intake & Output 07/30/24 07/31/24 07/31/24 18:59 06:59 18:59 Other: Voiding Method Toilet Toilet # Voids 3 - Exam Middle-age female lying in bed in no distress Unlabored breathing Left chest wall port site swelling and redness resolved there is a dry scab no drainage Awake alert oriented x 3 mood and affect is normal - Labs CBC & Chem 7: 07/31/24 02:28 07/31/24 02:28 Labs: Abnormal Lab Results - Last 24 Hours (Table) 07/30/24 07/30/24 07/31/24 Range/Units 06:59 18:26 02:28 Lymphocytes # 0.9 L (1.0-4.8) k/uL Potassium 2.5 A* 3.4 L (3.5-5.5) mmol/L Chloride 94 L (96-109) mmol/L Carbon Dioxide (22-30) mmol/L Anion Gap 16.30 H (4.00-12.00) mmol/L BUN (7-17) mg/dL Creatinine (0.52-1.04) mg/dL Est GFR (CKD-EPI) 40 L (>=60) Glucose (74-99) mg/dL Total Protein (6.3-8.2) g/dL 07/31/24 Range/Units 02:28 Lymphocytes # (1.0-4.8) k/uL Potassium (3.5-5.5) mmol/L Chloride (96-109) mmol/L Carbon Dioxide 32 H (22-30) mmol/L Anion Gap (4.00-12.00) mmol/L BUN 23 H (7-17) mg/dL Creatinine 1.38 H (0.52-1.04) mg/dL Est GFR (CKD-EPI) (>=60) Glucose 115 H (74-99) mg/dL Total Protein 6.0 L (6.3-8.2) g/dL Microbiology - Last 24 Hours (Table) 07/27/24 21:52 Blood Culture - Preliminary Blood Assessment and Plan (1) Infection due to Port-A-Cath Current Visit: Yes Status: Acute Code(s): T80.219A - UNSP INFECTION DUE TO CENTRAL VENOUS CATHETER, INIT ENCNTR SNOMED Code(s): 130444222 (2) Allergy to multiple antibiotics Current Visit: No Status: Acute Code(s): Z88.1 - ALLERGY STATUS TO OTHER ANTIBIOTIC AGENTS SNOMED Code(s): 402334585 Plan: 1patient presented to hospital with pain drainage erythema to the left chest wall port site concerning for port infection likely from gram-positive skin maddie gram-negative infection less likely but not entirely excluded 2patient with multiple antibiotic ALLERGIES that would limit the number of antibiotic safe to use. 3blood culture has been obtained which are currently pending 4patient culture remains to be negative we will consider minocyclin on discharge and out patient follow-up Dictation was produced using [employer] dictation software. please excuse any grammatical, word or spelling errors. Time with Patient: Less than 30
[2024-07-31 16:24] VITALS: BP 114/60; PULSE 81
[2024-07-31 16:45] VITALS: TEMP 98.4
[2024-07-31] MEDS: diphenhydrAMINE 25 MG CAP PO STA (18:38)
== END 2024-07-31 19:34 | disposition home or self-care (01) | DRG 315 ==
LOC: EC 16:44 → OBSVTOIN 21:17 → 6NMEDSUR 21:17 → 5NMEDONC 22:07
PROVIDERS: ADMIT Family Medicine; ATTEND Family Medicine
DX: T80.212A Local infection due to central venous catheter, initial encounter (principal); E87.1 Hypo-osmolality and hyponatremia; R78.81 Bacteremia; N18.30 Chronic kidney disease, stage 3 unspecified; G40.909 Epilepsy, unspecified, not intractable, without status epilepticus; Z95.2 Presence of prosthetic heart valve; G25.81 Restless legs syndrome; N17.9 Acute kidney failure, unspecified; L03.313 Cellulitis of chest wall; Z79.01 Long term (current) use of anticoagulants; Y84.8 Other medical procedures as the cause of abnormal reaction of the patient, or of later complication, without mention of misadventure at the time of the procedure; E86.0 Dehydration; E78.5 Hyperlipidemia, unspecified; E87.5 Hyperkalemia; I95.1 Orthostatic hypotension; E87.6 Hypokalemia; F43.10 Post-traumatic stress disorder, unspecified; G43.909 Migraine, unspecified, not intractable, without status migrainosus; G89.29 Other chronic pain; I25.2 Old myocardial infarction; Z79.52 Long term (current) use of systemic steroids; Z79.899 Other long term (current) drug therapy; Z86.711 Personal history of pulmonary embolism; Z82.49 Family history of ischemic heart disease and other diseases of the circulatory system; Z87.820 Personal history of traumatic brain injury; Z87.828 Personal history of other (healed) physical injury and trauma; Z88.1 Allergy status to other antibiotic agents; Z90.710 Acquired absence of both cervix and uterus; Z95.0 Presence of cardiac pacemaker; Z88.0 Allergy status to penicillin; Z88.6 Allergy status to analgesic agent
CPT/HCPCS: 36415; 70450; 80053; 81003; 82533; 83605; 83735; 84100; 84132; 85025; 86140; 87040; 94640; 96365; 96366; 96367; 96375; 99285

== ENCOUNTER → 2024-08-07 | Outpatient (CLI) | payer MEDICARE ==
[2024-08-07 18:10] LABS: HCT 43.3 % (37.2-46.3); HGB 14.3 g/dL (12.0-15.0); MCH 29.4 pg (27.0-32.0); MCV 89.1 FL (80.0-97.0); Mean Platelet Volume 10.6 FL (9.5-12.2); NRBC Per 100 WBC 0 X 10*3/uL (0.00-0.01); Platelet Count 248 X 10*3/uL (140-440); RBC 4.86 X 10*6/uL (4.10-5.20); RDW 13.2 % (11.5-14.5); WBC 6.25 X 10*3/uL (4.50-10.00)
[2024-08-07 18:29] LABS: BUN/Creat Ratio 23.76 Ratio (12.00-20.00); Blood Urea Nitrogen 49.9 mg/dL (9.0-27.0); Calcium 9.5 mg/dL (8.7-10.3); Carbon Dioxide 29.8 mmol/L (21.6-31.8); Chloride 91 mmol/L (96-109); Glucose 85 mg/dL (70-110); Potassium 3.3 mmol/L (3.5-5.5); Sodium 137 mmol/L (135-145)
[2024-08-07 18:55] LABS: Luteinizing Hormone 33.7 mIU/mL
[2024-08-07 18:59] LABS: Testosterone <10.00 ng/dL (7.00-45.62)
== END | disposition home or self-care (01) ==
LOC: LABWHC1 13:13
PROVIDERS: ATTEND Family Medicine
DX: N18.30 Chronic kidney disease, stage 3 unspecified (principal); E27.40 Unspecified adrenocortical insufficiency; F33.1 Major depressive disorder, recurrent, moderate
CPT/HCPCS: 36415; 80048; 82533; 82671; 83001; 83002; 84144; 84403; 85027

== ENCOUNTER 2024-09-02 03:01 | Emergency (ER) | payer MEDICARE ==
--- NOTE | 2024-09-02 03:30 | ED ---
Extremity Problem HPI - General Chief complaint: Extremity Injury, Lower Stated complaint: Left leg swelling Time Seen by Provider: 09/02/24 03:03 Source: patient, RN notes reviewed, old records reviewed Mode of arrival: wheelchair Limitations: no limitations - History of Present Illness Initial comments: This is a 59 female to the ER for evaluation of left lower extremity edema severe left lower extremity swelling history of gout believes she had gout in the left foot but the swelling is extreme, patient is on blood thinners with history of blood clots concern for recurrent blood clot, pain is just been increasing for a few days with increasing swelling initially again thought it was gout but symptoms are getting worse MD Complaint: extremity pain, extremity swelling, joint swelling, joint pain -: days(s) Location: left, lower extremity History of Same: Yes -: Yes myalgia, Yes arthralgia Radiation: proximal, distal Severity scale (1-10): 10 Quality: stabbing, aching Consistency: constant Improves with: nothing Worsens with: nothing Associated Symptoms: denies other symptoms - Related Data Home Medications Medication Instructions Recorded Confirmed Atorvastatin [Lipitor] 40 mg PO HS 09/24/21 08/14/24 Sertraline [Zoloft] 200 mg PO DAILY 09/24/21 08/14/24 Apixaban [Eliquis] 5 mg PO DIRECTED 05/29/22 08/14/24 busPIRone HCl [Buspar] 5 mg PO BID 06/11/22 08/14/24 Fludrocortisone [Florinef] 0.1 mg PO DAILY 09/20/22 08/14/24 rOPINIRole HCL [Requip] 2 mg PO HS 04/28/23 08/14/24 Budesonide/Glycopyr/Formoterol 2 puff INHALATION RT-BID 12/26/23 08/14/24 [Breztri Aerosphere Inhaler] Gabapentin 600 mg PO BID 12/26/23 08/14/24 Ondansetron [Zofran] 4 mg PO TID PRN 12/26/23 08/14/24 HYDROcodone/APAP 7.5-325MG [[place] 1 tab PO TID 04/06/24 08/14/24 7.5-325] Cyclobenzaprine [Flexeril] 5 mg PO TID PRN 06/18/24 08/14/24 QUEtiapine [SEROquel] 25 mg PO HS PRN 06/18/24 08/14/24 Bumetanide [BUMEX] 1 mg PO HS 06/27/24 08/14/24 Metoprolol Succinate (ER) [Toprol 50 mg PO DAILY 06/27/24 08/14/24 XL] Spironolactone 50 mg PO HS 06/27/24 08/14/24 Hydrocortisone [Cortef] 10 mg PO BID 07/27/24 08/14/24 Previous Rx's Medication Instructions Recorded Pantoprazole [Protonix] 40 mg PO AC-BID 30 Days #60 tab 04/24/24 Midodrine [ProAmatine] 10 mg PO AC-TID tab 07/31/24 Minocycline HCl [Minocin] 100 mg PO BID #20 cap 07/31/24 Potassium Chloride ER [K-Dur 20] 20 meq PO BID tab 07/31/24 Tiotropium 2.5 Mcg/Puff [Spiriva 2 puff INHALATION RT-DAILY each 07/31/24 Respimat 2.5 Mcg] Allergies Allergy/AdvReac Type Severity Reaction Status Date / Time Penicillins Allergy Severe Anaphylaxis Verified 09/02/24 03:05 vancomycin Allergy Severe Swelling Verified 09/02/24 03:05 in lips NSAIDS (Non-Steroidal Allergy Unknown pt has Verified 09/02/24 03:05 Anti-Inflamma clotting disorder and is to not take NSAIDS cefepime Allergy Swelling Verified 09/02/24 03:05 clindamycin Allergy Anaphylaxis Verified 09/02/24 03:05 Influenza Virus Vaccines Allergy Anaphylaxis Verified 09/02/24 03:05 latex Allergy Itching Verified 09/02/24 03:05 and swelling morphine Allergy Anaphylaxis Verified 09/02/24 03:05 albuterol [From Ventolin HFA] AdvReac Rapid Verified 09/02/24 03:05 Heart Rate [id number] AdvReac Confusion, Verified 09/02/24 03:05 [From Emgality Pen] increased blood pressure metoclopramide [From Reglan] AdvReac "felt like Verified 09/02/24 03:05 I needed to jump out of my skin" prochlorperazine AdvReac severe Verified 09/02/24 03:05 [From Compazine] anxiety Review of Systems ROS Statement: Those systems with pertinent positive or pertinent negative responses have been documented in the HPI. ROS Other: All systems not noted in ROS Statement are negative. 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 usually with migraines or electrolyte imbalance. has had massive bleeding from xarelto Last Myocardial Infarction Date:: 08/30/2018 History of Any Multi-Drug Resistant Organisms: C-DIFF Date of last positivie culture/infection: 2023 has had three times MDRO Source:: unk Past Surgical History: Back Surgery, Breast Surgery, Cardiac Valve Replacement, Section, Cholecystectomy, Heart Catheterization, Hysterectomy, Pacemaker Additional Past Surgical History / Comment(s): pacemaker d/t bradycardia/hypotension with last one place in 2013 in [place], [place], 3 lower back surgeries, bilateral breast reduction. tricuspid valve replacement x2 with pig valve. lamenectomy,pacemaker on rt chest, Past Anesthesia/Blood Transfusion Reactions: No Reported Reaction Additional Past Anesthesia/Blood Transfusion Reaction / Comment(s): blood transfusion no issues Type of Cardiac Device: Permanent Pacemaker, Unknown Device Placement Date:: 2012 Past Psychological History: Anxiety, PTSD Smoking Status: Former smoker Past Alcohol Use History: Occasional Past Drug Use History: None Reported - Past Family History Mother Additional Family Medical History / Comment(s): Mother at the age of 49 yrs after surgery for silicon breast implants with a leak that caused ARDS and DIC per pt (fibroid cysts) Father Family Medical History: Cancer, Hyperlipidemia, Hypertension Additional Family Medical History / Comment(s): Father is a colon cancer survivor. General Exam General appearance: alert, in no apparent distress Head exam: Present: atraumatic, normocephalic, normal inspection Eye exam: Present: normal appearance, PERRL, EOMI. Absent: scleral icterus, conjunctival injection, periorbital swelling ENT exam: Present: normal exam, mucous membranes moist Neck exam: Present: normal inspection. Absent: tenderness, meningismus, lymphadenopathy Respiratory exam: Present: normal lung sounds bilaterally. Absent: respiratory distress, wheezes, rales, rhonchi, stridor Cardiovascular Exam: Present: regular rate, normal rhythm, normal heart sounds. Absent: systolic murmur, diastolic murmur, rubs, gallop, clicks GI/Abdominal exam: Present: soft, normal bowel sounds. Absent: distended, tenderness, guarding, rebound, rigid Extremities exam: Present: normal inspection, full ROM, normal capillary refill. Absent: tenderness, pedal edema, joint swelling, calf tenderness Back exam: Present: normal inspection Neurological exam: Present: alert, oriented X3, CN II-XII intact Psychiatric exam: Present: normal affect, normal mood Skin exam: Present: warm, dry, intact, normal color. Absent: rash Course Vital Signs 09/02/24 09/02/24 09/02/24 03:02 05:09 10:03 Temperature 98.4 F 98.7 F Pulse Rate 91 70 78 Respiratory 20 15 20 Rate Blood Pressure 119/82 112/76 103/66 O2 Sat by Pulse 99 98 99 Oximetry - Reevaluation(s) Reevaluation #1: 09/02/24 05:46 Medical records reviewed Reevaluation #2: Patient's pain is well-controlled Reevaluation #3: Patient informed of results questions answered Reevaluation #4: Was pt. sent in by a medical professional or institution (, PA, REDUCTION PLANT SUPERVISOR, urgent care, hospital, or halfway...) When possible be specific @ -no Did you speak to anyone other than the patient for history (EMS, parent, family, police, friend...)? What history was obtained from this source @ -no Did you review nursing and triage notes (agree or disagree)? Why? @ -agree Are old charts reviewed (outside hosp., previous admission, EMS record, old EKG, old radiological studies, urgent care reports/EKG's, halfway records)? Report findings @ -yes Differential Diagnosis (chest pain, altered mental status, abdominal pain women, abdominal pain men, vaginal bleeding, weakness, fever, dyspnea, syncope, headache, dizziness, GI bleed, back pain, seizure, CVA, palpatations, mental health, musculoskeletal)? @ -prior EKG interpreted by me (3pts min.). @ -no X-rays interpreted by me (1pt min.). @ -no CT interpreted by me (1pt min.). @ -no U/S interpreted by me (1pt. min.). @ -yes negative for acute disease What testing was considered but not performed or refused? (CT, X-rays, U/S, labs)? Why? @ -none What meds were considered but not given or refused? Why? @ -none Did you discuss the management of the patient with other professionals (pr ofessionals i.e. , PA, REDUCTION PLANT SUPERVISOR, lab, RT, psych nurse, web content & social media manager, dining chair seat cushion trimmer, teacher, youth probation officer, wrapper caser)? Give summary @ -no Was smoking cessation discussed for >3mins.? @ -no Was critical care preformed (if so, how long)? @ -no Were there social determinants of health that impacted care today? How? (Homelessness, low income, unemployed, alcoholism, drug addiction, transportation, low edu. Level, literacy, decrease access to med. care, long term, rehab)? @ -none Was there de-escalation of care discussed even if they declined (Discuss DNR or withdrawal of care, Hospice)? DNR status @ -no What co-morbidities impacted this encounter? (DM, HTN, Smoking, COPD, CAD, Cancer, CVA, ARF, Chemo, Hep., AIDS, mental health diagnosis, sleep apnea, morbid obesity)? @ -none Was patient admitted / discharged? Hospital course, mention meds given and route, prescriptions, significant lab abnormalities, going to OR and other pertinent info. @ - 59 female to ER for leg pain. Patient has no findings of DVT on ultrasound pain is controlled patient can be discharged home Discharge leg pain leg edema Undiagnosed new problem with uncertain prognosis? @ -no Drug Therapy requiring intensive monitoring for toxicity (Heparin, Nitro, Insulin, Cardizem)? @ -no Were any procedures done? @ -no Diagnosis/symptom? @ - Acute, or Chronic, or Acute on Chronic? @ -Acute Uncomplicated (without systemic symptoms) or Complicated (systemic symptoms)? @ -Complicated Side effects of treatment? @ -no Exacerbation, Progression, or Severe Exacerbation? @ -exacerbation Poses a threat to life or bodily function? How? (Chest pain, [place], SC, pneumonia, PE, COPD, DKA, ARF, appy, cholecystitis, CVA, Diverticulitis, Homicidal, Suicidal, threat to staff... and all critical care pts) @ -yes multiple comorbid conditions Medical Decision Making - Medical Decision Making 59 female to ER for leg pain. Patient has no findings of DVT on ultrasound pain is controlled patient can be discharged home - Radiology Data Radiology results: report reviewed (Ultrasound negative for DVT), image reviewed Disposition Clinical Impression: Lower extremity weakness, Intractable pain, Leg pain, Leg edema, left Disposition: HOME SELF-CARE Condition: Fair Is patient prescribed a controlled substance at d/c from ED?: No Referrals: Franklin Hassan MD [Primary Care Provider] - 1-2 days Time of Disposition: 08:00
[2024-09-02] MEDS: HYDROmorphone 1 MG/ML 1 ML SYRINGE IVP STA (04:48)
[2024-09-02] MEDS: ONDANSETRON 4 MG/2 ML VIAL IVP STA (04:50)
--- NOTE | 2024-09-02 08:20 | US ---
EXAMINATION TYPE: US venous doppler duplex LE LT DATE OF EXAM: 09/02/2024 8:07 AM COMPARISON: Prior left-sided ultrasound November 07, 2023 CLINICAL INDICATION: Female, 59 years old with history of dvt; left foot edema, patient on blood thin ner, Pain TECHNIQUE: The lower extremity deep venous system is examined utilizing real time linear array sonog laquita with graded compression, color doppler sonography, and spectral doppler. SIDE PERFORMED: left FINDINGS: VESSELS IMAGED: Common Femoral Vein Deep Femoral Vein Greater Saphenous Vein * Femoral Vein Popliteal Vein Small Saphenous Vein * Proximal Calf Veins (* superficial vessels) Left Leg: Limitations, patient unable to hold still, no evidence of DVT as visualized, Color Doppler imaging shows patency of the vessels. Spectral waveforms are within normal limits. IMPRESSION: Suboptimal study without acute DVT in the left lower extremity clearly seen. [facility], , 09/02/2024 8:18 AM
[2024-09-02 10:04] VITALS: BP 103/66; PULSE 78; RESP 20; TEMP 98.7
== END 2024-09-02 10:04 | disposition home or self-care (01) ==
LOC: EC 03:01
DX: M79.662 Pain in left lower leg (principal); R60.0 Localized edema; R53.1 Weakness; Z87.891 Personal history of nicotine dependence; Z88.0 Allergy status to penicillin; Z88.1 Allergy status to other antibiotic agents; Z88.6 Allergy status to analgesic agent; Z88.7 Allergy status to serum and vaccine; Z91.040 Latex allergy status; Z88.8 Allergy status to other drugs, medicaments and biological substances
CPT/HCPCS: 93971; 99283; 96374; 96375; J2405; J1642; J1171

== ENCOUNTER 2024-10-12 18:59 | Inpatient (IN) | payer MEDICARE ==
--- NOTE | 2024-10-12 19:51 | ED ---
General Adult HPI - General Chief complaint: Extremity Problem,Nontraumatic Stated complaint: SOB,Swelling Time Seen by Provider: 10/12/24 19:14 Source: patient, RN notes reviewed Mode of arrival: ambulatory Limitations: no limitations - History of Present Illness Initial comments: This is a 59-year-old female with history including AMI, PE, CKD 3, pyoderma gangrenosum, SLE, CHF, pacemaker and antiphospholipid antibody syndrome presenting for edema and ulcerations. Patient endorses diffuse edema, affecting her abdomen and upper extremities for the past 3 days. Endorses a fullness sensation in her upper abdomen. Patient was seen in this ER on 09/02/2024 for LLE edema with negative DVT ultrasound at that time. Also endorses a new wound on her left leg after scraping it on a piece of metal with ongoing/worsening pain x 7 days. Patient states she is unable to have any vaccinations. Patient states she has recently finished a doxycycline regiment with noted bilateral rash on her upper extremities after spending time in the sun patient endorses use of Eliquis and Bumex, the latter which is not helping with her edema. Patient otilio es fever, chills, chest pain, dyspnea, abdominal pain, N/V/D, urinary symptoms. Onset/Timin -: days(s) Location: abdomen, upper extremity, lower extremity Radiation: non-radiation Severity scale (1-10): 7 Consistency: constant - Related Data Home Medications Medication Instructions Recorded Confirmed Atorvastatin [Lipitor] 40 mg PO HS 09/24/21 09/20/24 Sertraline [Zoloft] 200 mg PO DAILY 09/24/21 09/20/24 Apixaban [Eliquis] 5 mg PO BID 05/29/22 09/20/24 busPIRone HCl [Buspar] 5 mg PO BID 06/11/22 09/20/24 Fludrocortisone [Florinef] 0.1 mg PO DAILY 09/20/22 09/20/24 rOPINIRole HCL [Requip] 2 mg PO HS 04/28/23 09/20/24 Budesonide/Glycopyr/Formoterol 2 puff INHALATION RT-BID 12/26/23 09/20/24 [Breztri Aerosphere Inhaler] Gabapentin 600 mg PO BID 12/26/23 09/20/24 Ondansetron [Zofran] 4 mg PO TID PRN 12/26/23 09/20/24 HYDROcodone/APAP 7.5-325MG [[place] 1 tab PO TID 04/06/24 09/20/24 7.5-325] Cyclobenzaprine [Flexeril] 5 mg PO TID PRN 06/18/24 09/20/24 QUEtiapine [SEROquel] 25 mg PO HS PRN 06/18/24 09/20/24 Bumetanide [BUMEX] 1 mg PO HS 06/27/24 09/20/24 Metoprolol Succinate (ER) [Toprol 50 mg PO DAILY 06/27/24 09/20/24 XL] Spironolactone 50 mg PO HS 06/27/24 09/20/24 Hydrocortisone [Cortef] 10 mg PO BID 07/27/24 09/20/24 Bumetanide [BUMEX] 2 mg PO DAILY 09/20/24 09/20/24 Colchicine 0.6 mg PO DAILY 09/20/24 09/20/24 Diphenhydramine 50mg/Ml 50 mg IM Q6H PRN 09/20/24 09/20/24 Fezolinetant [Veozah] 45 mg PO DAILY 09/20/24 09/20/24 Nystatin 100,000 Unit/ml Susp 5 ml PO QID 09/20/24 09/20/24 [Mycostatin Oral Susp] allopurinoL [Zyloprim] 300 mg PO DAILY 09/20/24 09/20/24 Previous Rx's Medication Instructions Recorded Pantoprazole [Protonix] 40 mg PO AC-BID 30 Days #60 tab 04/24/24 Midodrine [ProAmatine] 10 mg PO AC-TID tab 07/31/24 Minocycline HCl [Minocin] 100 mg PO BID #20 cap 07/31/24 Potassium Chloride ER [K-Dur 20] 20 meq PO BID tab 07/31/24 Tiotropium 2.5 Mcg/Puff [Spiriva 2 puff INHALATION RT-DAILY each 07/31/24 Respimat 2.5 Mcg] Doxycycline 100 mg PO BID 10 Days #20 tab 09/23/24 Ipratropium-Albuterol Nebulize 3 ml INHALATION RT-TID 1 Days #90 09/23/24 [Duoneb 0.5 mg-3 mg/3 ml Soln] each Nystatin 100,000 Unit/gm Powd 1 applic TOPICAL BID 30 Days #30 09/23/24 [Mycostatin Powder] each Mupirocin 2% Oint [Bactroban 2% 1 applic TOPICAL TID #30 gm 10/12/24 Oint] Sulfamethox-Tmp 800-160Mg [Bactrim 1 each PO Q12HR #20 tab 10/12/24 Ds] Allergies Allergy/AdvReac Type Severity Reaction Status Date / Time Penicillins Allergy Severe Anaphylaxis Verified 10/12/24 19:19 vancomycin Allergy Severe Swelling Verified 10/12/24 19:19 in lips NSAIDS (Non-Steroidal Allergy Unknown pt has Verified 10/12/24 19:19 Anti-Inflamma clotting disorder and is to not take NSAIDS cefepime Allergy Swelling Verified 10/12/24 19:19 clindamycin Allergy Anaphylaxis Verified 10/12/24 19:19 Influenza Virus Vaccines Allergy Anaphylaxis Verified 10/12/24 19:19 latex Allergy Itching Verified 10/12/24 19:19 and swelling morphine Allergy Anaphylaxis Verified 10/12/24 19:19 albuterol [From Ventolin HFA] AdvReac Rapid Verified 10/12/24 19:19 Heart Rate [id number]-[id number] AdvReac Confusion, Verified 10/12/24 19:19 [From Emgality Pen] increased blood pressure metoclopramide [From Reglan] AdvReac "felt like Verified 10/12/24 19:19 I needed to jump out of my skin" prochlorperazine AdvReac severe Verified 10/12/24 19:19 [From Compazine] anxiety Review of Systems ROS Statement: Those systems with pertinent positive or pertinent negative responses have been documented in the HPI. ROS Other: All systems not noted in ROS Statement are negative. Past Medical History Past Medical History: Blood Disorder, Myocardial Infarction (HI), Pulmonary Embolus (PE), Renal Disease, Seizure Disorder Additional Past Medical History / Comment(s): Antiphospholipid antibody syndrome which causes clots and bleeding, multiple PEs, R renal artery embolism/now atrophic, CKD stage III, hypotension, hypokalemia especially w/stress, lupus, pyoderma grangrenosum, 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 Patient states past history of C-Diff from 03/2023. last seizure last night twitching, usually with migraines or electrolyte imbalance. has had massive bleeding from xarelto Last Myocardial Infarction Date:: 08/30/2018 History of Any Multi-Drug Resistant Organisms: C-DIFF Date of last positivie culture/infection: 2023 has had three times MDRO Source:: unk Past Surgical History: Back Surgery, Breast Surgery, Cardiac Valve Replacement, Section, Cholecystectomy, Heart Catheterization, Hysterectomy, Pacemaker Additional Past Surgical History / Comment(s): pacemaker d/t bradycardia/hypotension with last one place in 2013 in [place], [place], 3 lower back surgeries, bilateral breast reduction. 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. lamenectomy Past Anesthesia/Blood Transfusion Reactions: No Reported Reaction Additional Past Anesthesia/Blood Transfusion Reaction / Comment(s): blood transfusion no issues Type of Cardiac Device: Permanent Pacemaker, Unknown Device Placement Date:: 2012 Past Psychological History: Anxiety, PTSD Smoking Status: Never smoker Past Alcohol Use History: Rare Past Drug Use History: Marijuana - Past Family History Mother Additional Family Medical History / Comment(s): Mother at the age of 49 yrs after surgery for silicon breast implants with a leak that caused ARDS and DIC per pt (fibroid cysts) Father Family Medical History: Cancer, Hyperlipidemia, Hypertension Additional Family Medical History / Comment(s): Father is a colon cancer survivor. General Exam Limitations: no limitations General appearance: alert, in no apparent distress Head exam: Present: atraumatic, normocephalic, normal inspection Eye exam: Present: normal appearance, PERRL, EOMI. Absent: scleral icterus, conjunctival injection, periorbital swelling ENT exam: Present: normal exam, mucous membranes moist Neck exam: Present: normal inspection. Absent: tenderness, meningismus, ly mphadenopathy Respiratory exam: Present: normal lung sounds bilaterally. Absent: respiratory distress, wheezes, rales, rhonchi, stridor, accessory muscle use, decreased breath sounds, prolonged expiratory Cardiovascular Exam: Present: regular rate, normal rhythm, normal heart sounds. Absent: systolic murmur, diastolic murmur, rubs, gallop, clicks GI/Abdominal exam: Present: soft, distended (Upper abdominal distention), normal bowel sounds. Absent: tenderness, guarding, rebound, rigid Extremities exam: Present: normal inspection, full ROM, normal capillary refill, pedal edema (Positive BLE pitting edema, left worse than right. 8 cm irregular linear ulceration noted on left anterior bridges. Bilateral BLE neurovascular and motor function intact. Posterior tibialis pulse +2), calf tenderness (Positive left calf tenderness. Unable to determine if this is due to edema, infection or Homans' sign.). Absent: tenderness, joint swelling Back exam: Present: normal inspection Neurological exam: Present: alert, oriented X3, CN II-XII intact Psychiatric exam: Present: normal affect, normal mood Skin exam: Present: warm, dry, intact, normal color, other (Diffuse mild/moderate edema of BUE, BLE and torso/abdomen.). Absent: rash Course Vital Signs 10/12/24 10/12/24 10/12/24 19:16 20:17 21:58 Temperature 98.1 F 98.6 F Pulse Rate 71 70 71 Respiratory 18 18 18 Rate Blood Pressure 124/81 139/60 100/63 O2 Sat by Pulse 98 96 96 Oximetry 10/12/24 10/12/24 10/13/24 23:21 23:45 00:00 Temperature 98.0 F Pulse Rate 70 69 71 Respiratory 16 Rate Blood Pressure 97/58 101/66 101/66 O2 Sat by Pulse 99 97 97 Oximetry 10/13/24 10/13/24 10/13/24 01:38 04:26 06:00 Temperature 97.8 F 97.8 F Pulse Rate 70 71 70 Respiratory 20 20 18 Rate Blood Pressure 115/71 101/53 111/85 O2 Sat by Pulse 98 97 99 Oximetry 10/13/24 10/13/24 10/13/24 07:00 07:17 08:00 Temperature 97.8 F 97.2 F L Pulse Rate 71 69 72 Respiratory 16 18 18 Rate Blood Pressure 105/54 112/69 O2 Sat by Pulse 96 100 98 Oximetry 10/13/24 10/13/24 08:36 09:00 Temperature 98 F 97.7 F Pulse Rate 72 70 Respiratory 18 18 Rate Blood Pressure 107/69 104/69 O2 Sat by Pulse 97 98 Oximetry Medical Decision Making - Medical Decision Making Was pt. sent in by a medical professional or institution (Dr., PA, VENDING MACHINE COLLECTOR, urgent care, hospital, or fci...) When possible be specific @ -No Did you speak to anyone other than the patient for history (EMS, parent, family, police, friend...)? What history was obtained from this source @ -No Did you review nursing and triage notes (agree or disagree)? Why? @ -I reviewed and agree with nursing and triage notes Were old charts reviewed (outside hosp., previous admission, EMS record, old EKG, old radiological studies, urgent care reports/EKG's, fci records)? Report findings @ -Chart from previous ER visit on 09/02/2024 reviewed, showing no DVT on LLE ul trasound. Differential Diagnosis (chest pain, altered mental status, abdominal pain women, abdominal pain men, vaginal bleeding, weakness, fever, dyspnea, syncope, headache, dizziness, GI bleed, back pain, seizure, CVA, palpatations, mental health, musculoskeletal)? @ -Differential Musculoskeletal Muscular strain, contusion, ligament sprain, fracture, arthritis, septic arthritis, bursitis, cellulitis, muscle spasm, nerve compression, DVT, arterial occlusion, herpes zoster, electrolyte abnormality, tumor.... This is not meant to be in all inclusive list EKG interpreted by me (3pts min.). @ -Atrial pacemaker without ST deviation or T wave inversion. Ventricular rate 71 bpm, RADHA 180 ms, QRS 94 ms, QTc 450 ms. X-rays interpreted by me (1pt min.). @ -CXR shows no acute cardiopulmonary process. CT interpreted by me (1pt min.). @ -None done U/S interpreted by me (1pt. min.). @ - LLE Doppler ultrasound shows no DVT. What testing was considered but not performed or refused? (CT, X-rays, U/S, labs)? Why? @ -None What meds were considered but not given or refused? Why? @ -None Did you discuss the management of the patient with other professionals (professionals i.e. ELIZABETH Castorena, VENDING MACHINE COLLECTOR, lab, RT, psych nurse, dialysis social worker, buttonhole maker, teacher, credit risk officer, residential case manager)? Give summary @ -No Was smoking cessation discussed for >3mins.? @ -No Was critical care preformed (if so, how long)? @ -No Were there social determinants of health that impacted care today? How? (Homelessness, low income, unemployed, alcoholism, drug addiction, transportation, low edu. Level, literacy, decrease access to med. care, fpc, rehab)? @ -No Was there de-escalation of care discussed even if they declined (Discuss DNR or withdrawal of care, Hospice)? DNR status @ -No What co-morbidities impacted this encounter? (DM, HTN, Smoking, COPD, CAD, Cancer, CVA, ARF, Chemo, Hep., AIDS, mental health diagnosis, sleep apnea, morbid obesity)? @ -CKD, CHF Was patient admitted / discharged? Hospital course, mention meds given and route, prescriptions, significant lab abnormalities, going to OR and other pertinent info. @ - Patient initially provided IV Zofran and Dilaudid. Lab work notable for hypokalemia at 3.0, stable CKD. WBC 7.35, lactic acid 1.1, troponin unremarkable, BNP 1340 and CRP 0.5. UA and Cepheid test also unremarkable. CXR shows no acute cardiopulmonary process. LLE Doppler ultrasound shows no DVT. Patient provided p.o. potassium chloride and additional IV Dilaudid for ongoing pain. IV Lasix for edema and p.o. Bactrim DS for LLE cellulitis. Patient discussed with Dr. Russell who would later provide p.o. [place] and IV Lasix and Benadryl and admit patient for intractable pain. Undiagnosed new problem with uncertain prognosis? @ -No Drug Therapy requiring intensive monitoring for toxicity (Heparin, Nitro, Insulin, Cardizem)? @ -No Were any procedures done? @ -No Diagnosis/symptom? @ -Lower extremity cellulitis/ulcer, generalized edema Acute, or Chronic, or Acute on Chronic? @ -Acute and acute on chronic Uncomplicated (without systemic symptoms) or Complicated (systemic symptoms)? @ -Complicated Side effects of treatment? @ -No Exacerbation, Progression, or Severe Exacerbation? @ -Exacerbation Poses a threat to life or bodily function? How? (Chest pain, USA, HI, pneumonia, PE, COPD, DKA, ARF, appy, cholecystitis, CVA, Diverticulitis, Homicidal, Suicidal, threat to staff... and all critical care pts) @ -No - Lab Data Result diagrams: 10/12/24 21:21 10/12/24 21:21 Lab Results 10/12/24 10/12/24 10/12/24 Range/Units 06:55 21:21 21:21 WBC 7.35 (4.50-10.00) 10*3/uL RBC 3.64 L (4.10-5.20) 10*6/uL Hgb 11.6 L (12.0-15.0) g/dL Hct 34.2 L (37.2-46.3) % MCV 94.0 (80.0-97.0) fL MCH 31.9 (27.0-32.0) pg MCHC 33.9 (32.0-37.0) g/dL Plt Count 205 (140-440) 10*3/uL MPV 10.5 (9.5-12.2) fL Immature Gran % (Auto) 0.4 % Neutrophils % 72.1 % Lymphocytes % 17.1 % Monocytes % 8.2 % Eosinophils % 1.8 % Basophils % 0.4 % Immature Gran # 0.03 (0.00-0.04) 10*3/uL Neutrophils # 5.30 (1.80-7.70) 10*3/uL Lymphocytes # 1.26 (0.90-5.00) 10*3/uL Monocytes # 0.60 (0.20-1.00) 10*3/uL Eosinophils # 0.13 (0.04-0.35) 10*3/uL Basophils # 0.03 (0.00-0.10) 10*3/uL PT (10.0-12.5) sec INR (<1.2) APTT (22.0-30.0) sec Sodium (137-145) mmol/L Potassium (3.5-5.1) mmol/L Chloride (98-107) mmol/L Carbon Dioxide (22-30) mmol/L Anion Gap mmol/L BUN (7-17) mg/dL Creatinine (0.52-1.04) mg/dL Est GFR (CKD-EPI)AfAm (>60 ml/min/1.73 sqM) Est GFR (CKD-EPI)NonAf (>60 ml/min/1.73 sqM) Glucose (74-99) mg/dL Plasma Lactic Acid Raffi (0.7-2.0) mmol/L Calcium (8.4-10.2) mg/dL Total Bilirubin (0.2-1.3) mg/dL AST (14-36) U/L ALT (4-34) U/L Alkaline Phosphatase (38-126) U/L Troponin I (0.000-0.034) ng/mL C-Reactive Protein (<1.0) mg/dL NT-Pro-B Natriuret Pep pg/mL Total Protein (6.3-8.2) g/dL Albumin (3.5-5.0) g/dL Urine Color Yellow Urine Appearance Clear (Clear) Urine pH 5.5 (5.0-8.0) Ur Specific Frost 1.022 (1.001-1.035) Urine Protein Negative (Negative) Urine Glucose (UA) Negative (Negative) Urine Ketones Negative (Negative) Urine Blood Negative (Negative) Urine Nitrite Negative (Negative) Urine Bilirubin Negative (Negative) Urine Urobilinogen <2.0 (<2.0) mg/dL Ur Leukocyte Esterase Small H (Negative) Urine RBC 1 (0-5) /hpf Urine WBC 3 (0-5) /hpf Ur Squamous Epith Cells 1 (0-4) /hpf Hyaline Casts 32 H (0-2) /lpf Urine Mucus Rare H (None) /hpf Influenza Type A (PCR) Not Detected (Not Detectd) Influenza Type B (PCR) Not Detected (Not Detectd) RSV (PCR) Not Detected (Not Detectd) SARS-CoV-2 (PCR) Not Detected (Not Detectd) 10/12/24 10/12/24 10/12/24 Range/Units 21:21 21:21 21:21 WBC (4.50-10.00) 10*3/uL RBC (4.10-5.20) 10*6/uL Hgb (12.0-15.0) g/dL Hct (37.2-46.3) % MCV (80.0-97.0) fL MCH (27.0-32.0) pg MCHC (32.0-37.0) g/dL Plt Count (140-440) 10*3/uL MPV (9.5-12.2) fL Immature Gran % (Auto) % Neutrophils % % Lymphocytes % % Monocytes % % Eosinophils % % Basophils % % Immature Gran # (0.00-0.04) 10*3/uL Neutrophils # (1.80-7.70) 10*3/uL Lymphocytes # (0.90-5.00) 10*3/uL Monocytes # (0.20-1.00) 10*3/uL Eosinophils # (0.04-0.35) 10*3/uL Basophils # (0.00-0.10) 10*3/uL PT 11.4 (10.0-12.5) sec INR 1.0 (<1.2) APTT 26.6 (22.0-30.0) sec Sodium 142 (137-145) mmol/L Potassium 3.0 L (3.5-5.1) mmol/L Chloride 103 (98-107) mmol/L Carbon Dioxide 24 (22-30) mmol/L Anion Gap 15 mmol/L BUN 30 H (7-17) mg/dL Creatinine 1.46 H (0.52-1.04) mg/dL Est GFR (CKD-EPI)AfAm 45 (>60 ml/min/1.73 sqM) Est GFR (CKD-EPI)NonAf 39 (>60 ml/min/1.73 sqM) Glucose 101 H (74-99) mg/dL Plasma Lactic Acid Raffi 1.1 (0.7-2.0) mmol/L Calcium 9.4 (8.4-10.2) mg/dL Total Bilirubin 0.4 (0.2-1.3) mg/dL AST 27 (14-36) U/L ALT 24 (4-34) U/L Alkaline Phosphatase 80 (38-126) U/L Troponin I (0.000-0.034) ng/mL C-Reactive Protein (<1.0) mg/dL NT-Pro-B Natriuret Pep pg/mL Total Protein 6.1 L (6.3-8.2) g/dL Albumin 3.8 (3.5-5.0) g/dL Urine Color Urine Appearance (Clear) Urine pH (5.0-8.0) Ur Specific Frost (1.001-1.035) Urine Protein (Negative) Urine Glucose (UA) (Negative) Urine Ketones (Negative) Urine Blood (Negative) Urine Nitrite (Negative) Urine Bilirubin (Negative) Urine Urobilinogen (<2.0) mg/dL Ur Leukocyte Esterase (Negative) Urine RBC (0-5) /hpf Urine WBC (0-5) /hpf Ur Squamous Epith Cells (0-4) /hpf Hyaline Casts (0-2) /lpf Urine Mucus (None) /hpf Influenza Type A (PCR) (Not Detectd) Influenza Type B (PCR) (Not Detectd) RSV (PCR) (Not Detectd) SARS-CoV-2 (PCR) (Not Detectd) 10/12/24 10/12/24 10/12/24 Range/Units 21:21 21:21 21:21 WBC (4.50-10.00) 10*3/uL RBC (4.10-5.20) 10*6/uL Hgb (12.0-15.0) g/dL Hct (37.2-46.3) % MCV (80.0-97.0) fL MCH (27.0-32.0) pg MCHC (32.0-37.0) g/dL Plt Count (140-440) 10*3/uL MPV (9.5-12.2) fL Immature Gran % (Auto) % Neutrophils % % Lymphocytes % % Monocytes % % Eosinophils % % Basophils % % Immature Gran # (0.00-0.04) 10*3/uL Neutrophils # (1.80-7.70) 10*3/uL Lymphocytes # (0.90-5.00) 10*3/uL Monocytes # (0.20-1.00) 10*3/uL Eosinophils # (0.04-0.35) 10*3/uL Basophils # (0.00-0.10) 10*3/uL PT (10.0-12.5) sec INR (<1.2) APTT (22.0-30.0) sec Sodium (137-145) mmol/L Potassium (3.5-5.1) mmol/L Chloride (98-107) mmol/L Carbon Dioxide (22-30) mmol/L Anion Gap mmol/L BUN (7-17) mg/dL Creatinine (0.52-1.04) mg/dL Est GFR (CKD-EPI)AfAm (>60 ml/min/1.73 sqM) Est GFR (CKD-EPI)NonAf (>60 ml/min/1.73 sqM) Glucose (74-99) mg/dL Plasma Lactic Acid Raffi (0.7-2.0) mmol/L Calcium (8.4-10.2) mg/dL Total Bilirubin (0.2-1.3) mg/dL AST (14-36) U/L ALT (4-34) U/L Alkaline Phosphatase (38-126) U/L Troponin I <0.012 (0.000-0.034) ng/mL C-Reactive Protein 0.5 (<1.0) mg/dL NT-Pro-B Natriuret Pep 1340 pg/mL Total Protein (6.3-8.2) g/dL Albumin (3.5-5.0) g/dL Urine Color Urine Appearance (Clear) Urine pH (5.0-8.0) Ur Specific Frost (1.001-1.035) Urine Protein (Negative) Urine Glucose (UA) (Negative) Urine Ketones (Negative) Urine Blood (Negative) Urine Nitrite (Negative) Urine Bilirubin (Negative) Urine Urobilinogen (<2.0) mg/dL Ur Leukocyte Esterase (Negative) Urine RBC (0-5) /hpf Urine WBC (0-5) /hpf Ur Squamous Epith Cells (0-4) /hpf Hyaline Casts (0-2) /lpf Urine Mucus (None) /hpf Influenza Type A (PCR) (Not Detectd) Influenza Type B (PCR) (Not Detectd) RSV (PCR) (Not Detectd) SARS-CoV-2 (PCR) (Not Detectd) Disposition Clinical Impression: Generalized edema, Cellulitis of left leg, Intractable pain Disposition: ADMITTED IP TO THIS HOSP Condition: Fair Is patient prescribed a controlled substance at d/c from ED?: No Time of Disposition: 00:17 Decision Date: 10/13/24 Decision Time: 00:17
--- NOTE | 2024-10-12 21:17 | US ---
EXAMINATION TYPE: US venous doppler duplex LE LT DATE OF EXAM: 10/12/2024 9:09 PM COMPARISON: US 2024 CLINICAL INDICATION: Female, 59 years old with history of Ongoing LLE edema; Patient on blood thinner s TECHNIQUE: The lower extremity deep venous system is examined utilizing real time linear array sonog laquita with graded compression, color doppler sonography, and spectral doppler. SIDE PERFORMED: Left FINDINGS: VESSELS IMAGED: Common Femoral Vein Deep Femoral Vein Greater Saphenous Vein * Femoral Vein Popliteal Vein Small Saphenous Vein * Proximal Calf Veins (* superficial vessels) Left Leg: Appears negative for DVT IMPRESSION: No ultrasound evidence for deep venous thrombosis. [facility], , 10/12/2024 9:15 PM
[2024-10-12 21:27] LABS: Basophils # (A) 0.03 10*3/uL (0.00-0.10); Basophils % (A) 0.4 %; Eosinophils # (A) 0.13 10*3/uL (0.04-0.35); Eosinophils % (A) 1.8 %; HCT 34.2 % (37.2-46.3); HGB 11.6 g/dL (12.0-15.0); Lymphocytes # (A) 1.26 10*3/uL (0.90-5.00); Lymphocytes % (A) 17.1 %; MCH 31.9 pg (27.0-32.0); MCHC 33.9 g/dL (32.0-37.0); Mean Platelet Volume 10.5 fL (9.5-12.2); Monocytes % (A) 8.2 %; Neutrophils % (A) 72.1 %; Platelet Count 205 10*3/uL (140-440); RBC 3.64 10*6/uL (4.10-5.20); RDW 15.7 % (11.5-14.5); WBC 7.35 10*3/uL (4.50-10.00)
[2024-10-12] MEDS: ONDANSETRON 4 MG/2 ML VIAL IVP STA (21:27)
[2024-10-12] MEDS: HYDROmorphone 0.5 MG/0.5 ML SYRINGE IVP STA (21:29)
[2024-10-12 21:56] LABS: Partial Thromboplastin Time 26.6 sec (22.0-30.0); Prothrombin Time 11.4 sec (10.0-12.5)
--- NOTE | 2024-10-12 22:00 | XR ---
EXAMINATION TYPE: XR chest 2V DATE OF EXAM: 10/12/2024 9:46 PM COMPARISON: Chest radiographs from 09/19/2024 CLINICAL INDICATION: Female, 59 years old with history of Ongoing LLE edema, history of CHF; H TECHNIQUE: XR chest 2V Frontal and lateral views of the chest. FINDINGS: Lungs/Pleura: There is no evidence of pleural effusion, focal consolidation, or pneumothorax. Pulmonary vascularity: Unremarkable. Heart/mediastinum: Cardiomediastinal silhouette is enlarged. Post valve repair changes. Single-lead cardiac conduction device overlying the right hemithorax with lead projecting over the right ventricl e. Musculoskeletal: No acute osseous pathology. Other findings: None IMPRESSION: No acute cardiopulmonary disease/process. No significant change from prior. [facility], , 10/12/2024 9:58 PM
[2024-10-12 22:03] LABS: Influenza A Not Detected (Not Detectd); Influenza B Not Detected (Not Detectd); RSV Not Detected (Not Detectd)
[2024-10-12 22:37] LABS: ALT 24 U/L (4-34); AST 27 U/L (14-36); African American GFR (CKD) 45 (>60 ml/min/1.73 sqM); Albumin 3.8 g/dL (3.5-5.0); Alkaline Phosphatase 80 U/L (38-126); Anion Gap 15 mmol/L; Blood Urea Nitrogen 30 mg/dL (7-17); Calcium 9.4 mg/dL (8.4-10.2); Carbon Dioxide 24 mmol/L (22-30); Chloride 103 mmol/L (98-107); Glucose 101 mg/dL (74-99); Non-African American GFR(CKD) 39 (>60 ml/min/1.73 sqM); Sodium 142 mmol/L (137-145); Total Bilirubin 0.4 mg/dL (0.2-1.3); Total Protein 6.1 g/dL (6.3-8.2)
[2024-10-12] MEDS: SULFAMETHOX-TMP 800-160MG 1 EACH TAB PO STA (23:53)
[2024-10-13] MEDS: POTASSIUM CHLORIDE ER 20 MEQ TAB.ER PO STA ×2 (00:10→00:11)
[2024-10-13] MEDS: HYDROmorphone 1 MG/ML 1 ML SYRINGE IVP STA (00:11)
[2024-10-13] MEDS: FUROSEMIDE 10 MG/ML 4 ML VIAL IV STA ×2 (00:12→07:08)
[2024-10-13] MEDS: HYDROmorphone 0.5 MG/0.5 ML SYRINGE IVP STA (00:50)
[2024-10-13] MEDS: HYDROcodone/APAP 7.5-325MG 1 EACH TAB PO ONE (01:53)
[2024-10-13] MEDS ORDERED: ACETAMINOPHEN TAB 325 MG TAB PO PRN (04:44)
[2024-10-13] MEDS ORDERED: NALOXONE 0.4 MG/ML 1 ML VIAL IV PRN (04:44)
[2024-10-13] MEDS: diphenhydrAMINE 50 MG/ML 1 ML VIAL IVP STA (04:52)
[2024-10-13 07:22] LABS: Appearance,Urine Clear (Clear); Bilirubin,Urine Negative (Negative); Blood,Urine Negative (Negative); Color,Urine Yellow; Glucose,Urine (UA) Negative (Negative); Hyaline Casts,Urine 32 /lpf (0-2); Ketones,Urine Negative (Negative); Leukocyte Esterase,Urine Small (Negative); Mucus,Urine Rare /hpf; Nitrite,Urine Negative (Negative); PH, Urine 5.5 (5.0-8.0); Protein,Urine Negative (Negative); RBC,Urine 1 /hpf (0-5); Specific Gravity,Urine 1.022 (1.001-1.035); Squamous Epithelial Cell,Urine 1 /hpf (0-4); Urobilinogen,Urine <2.0 mg/dL (<2.0); WBC,Urine 3 /hpf (0-5)
[2024-10-13] MEDS: HYDROmorphone 0.5 MG/0.5 ML SYRINGE IVP PRN (08:33)
[2024-10-13] MEDS: diphenhydrAMINE 50 MG/ML 1 ML VIAL IVP PRN (12:31)
[2024-10-13] MEDS ORDERED: ONDANSETRON ODT 4 MG TAB PO PRN (12:35)
[2024-10-13] MEDS: HYDROcodone/APAP 7.5-325MG 1 EACH TAB PO SCH (15:49)
[2024-10-13] MEDS: APIXABAN 5 MG TAB PO SCH (15:50)
[2024-10-13] MEDS: IPRATROPIUM-ALBUTEROL 3 ML NEB INHALATION SCH (16:02)
[2024-10-13] MEDS: PANTOPRAZOLE 40 MG TABLET PO SCH (17:58)
[2024-10-13] MEDS: MIDODRINE 5 MG TAB PO SCH (17:58)
[2024-10-13] MEDS: BUMETANIDE 0.25 MG/ML 4 ML VIAL IV SCH (20:17)
[2024-10-13] MEDS: GABAPENTIN 300 MG CAP PO SCH (20:22)
[2024-10-13] MEDS: busPIRone HCl 5 MG TAB PO SCH (20:22)
[2024-10-13] MEDS: POTASSIUM CHLORIDE ER 20 MEQ TAB.ER PO SCH (20:23)
[2024-10-13] MEDS ORDERED: BUMETANIDE 1 MG TAB PO SCH (21:00)
[2024-10-13] MEDS ORDERED: ATORVASTATIN 40 MG TAB PO SCH (21:00)
[2024-10-13] MEDS: HYDROCORTISONE 10 MG TAB PO SCH (21:57)
[2024-10-13] MEDS: SPIRONOLACTONE 25 MG TAB PO SCH (21:57)
--- NOTE | 2024-10-13 23:54 | HP ---
HISTORY AND PHYSICAL HISTORY OF PRESENT ILLNESS: Came in with severe swelling and edema to the lower legs and new onset of wounds in the left calf deep into the dermal layer. MEDICINES: See list. ALLERGIES: See list. PHYSICAL EXAMINATION: VITAL SIGNS: Temperature 97, blood pressure 135/81, respiratory rate 18, O2 is 94%-97% on room air. CARDIOVASCULAR: S1, S2. LUNGS: Scattered wheeze and rhonchi. EXTREMITIES: 2 to 3+ edema with some stasis changes on the legs. ASSESSMENT AND PLAN: Diastolic congestive heart failure, antiphospholipid syndrome, lupus, asthma, chronic obstructive pulmonary disease. Prognosis is extremely guarded. Continue current treatment. PT, OT, possible discharge home tomorrow. MMODL / IJN: [id number] /
[2024-10-14 06:33] LABS: Basophils # (A) 0.03 10*3/uL (0.00-0.10); Basophils % (A) 0.6 %; Eosinophils # (A) 0.13 10*3/uL (0.04-0.35); Eosinophils % (A) 2.4 %; HCT 37.8 % (37.2-46.3); HGB 12.4 g/dL (12.0-15.0); Lymphocytes # (A) 0.86 10*3/uL (0.90-5.00); MCH 31.6 pg (27.0-32.0); MCHC 32.8 g/dL (32.0-37.0); MCV 96.2 fL (80.0-97.0); Mean Platelet Volume 11.3 fL (9.5-12.2); Monocytes # (A) 0.52 10*3/uL (0.20-1.00); Monocytes % (A) 9.7 %; Neutrophils % (A) 70.9 %; Platelet Count 197 10*3/uL (140-440); RBC 3.93 10*6/uL (4.10-5.20); RDW 15.9 % (11.5-14.5); WBC 5.36 10*3/uL (4.50-10.00)
[2024-10-14 06:40] LABS: ALT 28 U/L (4-34); African American GFR (CKD) 49 (>60 ml/min/1.73 sqM); Albumin/Globulin Ratio 1.6; Anion Gap 10 mmol/L; Blood Urea Nitrogen 29 mg/dL (7-17); Calcium 9.5 mg/dL (8.4-10.2); Carbon Dioxide 20 mmol/L (22-30); Chloride 105 mmol/L (98-107); Globulin 2.5 g/dL; Glucose 69 mg/dL (74-99); Non-African American GFR(CKD) 43 (>60 ml/min/1.73 sqM); Sodium 135 mmol/L (137-145); Total Bilirubin 0.8 mg/dL (0.2-1.3)
[2024-10-14 06:41] LABS: AST 44 U/L (14-36); Alkaline Phosphatase 75 U/L (38-126); Potassium 5.6 mmol/L (3.5-5.1); Total Protein 6.5 g/dL (6.3-8.2)
[2024-10-14] MEDS ORDERED: BUMETANIDE 1 MG TAB PO SCH (09:00)
[2024-10-14] MEDS: allopurinoL 300 MG TAB PO SCH (10:00)
[2024-10-14] MEDS: FEZOLINETANT 45 MG PO SCH (10:01)
[2024-10-14] MEDS: FLUDROCORTISONE 0.1 MG TAB PO SCH (10:01)
[2024-10-14] MEDS: COLCHICINE 0.6 MG EACH PO SCH (10:01)
[2024-10-14] MEDS: SERTRALINE 100 MG TAB PO SCH (10:03)
[2024-10-14] MEDS: METOPROLOL SUCCINATE (ER) 50 MG TAB.ER.24H PO SCH (10:03)
--- NOTE | 2024-10-14 10:23 | P.CONS ---
History of Present Illness - Reason for Consult Consult date: 10/13/24 Left leg abscess Requesting physician: Franklin Hassan - Chief Complaint Left leg pain swelling and redness x few days - History of Present Illness Patient is a 59-year-old female with a past medical history significant for seizure disorder PE [place], pyoderma gangrenosum SLE presenting to the hospital for evaluation of left lower extremity swelling redness and pain apparently the patient did have a laceration developing to the left lower extremity about 7 days ago which did develop a scratch from a piece of metal while she was outside subsequent developing increasing swelling redness and drainage, patient describing the pain to be sharp moderate to severe intensity without radiation did have an open wound and some drainage patient complaining of some chills however no fever have been recorded on presentation to the hospital patient was not tachycardic hypotensive or hypoxic patient did have a white count of 7.35 BUN and creatinine has been mildly elevated liver enzymes are normal urine has been negative influenza RSV COVID testing negative patient did have a venous Doppler that was negative for DVT patient did have a chest x- ray no acute cardiopulmonary disease process patient was started on daptomycin infectious disease was consulted for the left leg abscess Review of Systems Positive point and negatives has been mentioned in the HPI, complete review of systems was performed and all other systems are negative Past Medical History Past Medical History: Blood Disorder, Myocardial Infarction ([place]), Pulmonary Embolus ([place]), Renal Disease, Seizure Disorder Additional Past Medical History / Comment(s): Antiphospholipid antibody syndrome which causes clots and bleeding, multiple PEs, R renal artery embolism/now atrophic, CKD stage III, hypotension, hypokalemia especially w/stress, lupus, pyoderma grangrenosum, 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 Patient states past history of C-Diff from 03/2023. last seizure last night twitching, usually with migraines or electrolyte imbalance. has had massive bleeding from xarelto Last Myocardial Infarction Date:: 08/30/2018 History of Any Multi-Drug Resistant Organisms: C-DIFF Year Discovered:: 2023 has had three times MDRO Source:: unk Past Surgical History: Back Surgery, Breast Surgery, Cardiac Valve Replacement, Section, Cholecystectomy, Heart Catheterization, Hysterectomy, Pacemaker Additional Past Surgical History / Comment(s): pacemaker d/t bradycardia/hypotension with last one place in 2013 in [place], [place], 3 lower back surgeries, bilateral breast reduction. 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. lamenectomy Past Anesthesia/Blood Transfusion Reactions: No Reported Reaction Additional Past Anesthesia/Blood Transfusion Reaction / Comm: blood transfusion no issues Type of Cardiac Device: Permanent Pacemaker, Unknown Device Placement Date:: 2012 Past Psychological History: Anxiety, PTSD Smoking Status: Never smoker Past Alcohol Use History: Rare Past Drug Use History: Marijuana - Past Family History Mother Additional Family Medical History / Comment(s): Mother at the age of 49 yrs after surgery for silicon breast implants with a leak that caused ARDS and DIC per pt (fibroid cysts) Father Family Medical History: Cancer, Hyperlipidemia, Hypertension Additional Family Medical History / Comment(s): Father is a colon cancer survivor. Medications and Allergies Home Medications Medication Instructions Recorded Confirmed Type Atorvastatin [Lipitor] 40 mg PO HS 09/24/21 10/13/24 History Sertraline [Zoloft] 200 mg PO DAILY 09/24/21 10/13/24 History Apixaban [Eliquis] 5 mg PO BID 05/29/22 10/13/24 History busPIRone HCl [Buspar] 5 mg PO BID 06/11/22 10/13/24 History Fludrocortisone [Florinef] 0.1 mg PO DAILY 09/20/22 10/13/24 History rOPINIRole HCL [Requip] 2 mg PO HS 04/28/23 10/13/24 History Budesonide/Glycopyr/Formoterol 2 puff INHALATION RT-BID 12/26/23 10/13/24 History [Breztri Aerosphere Inhaler] Gabapentin 600 mg PO TID 12/26/23 10/13/24 History Ondansetron [Zofran] 4 mg PO TID PRN 12/26/23 10/13/24 History HYDROcodone/APAP 7.5-325MG [[place] 1 tab PO TID 04/06/24 10/13/24 History 7.5-325] Pantoprazole [Protonix] 40 mg PO AC-BID 30 Days #60 tab 04/24/24 10/13/24 Rx Cyclobenzaprine [Flexeril] 5 mg PO TID PRN 06/18/24 10/13/24 History QUEtiapine [SEROquel] 25 mg PO HS PRN 06/18/24 10/13/24 History Bumetanide [BUMEX] 1 mg PO HS 06/27/24 10/13/24 History Metoprolol Succinate (ER) [Toprol 50 mg PO DAILY 06/27/24 10/13/24 History XL] Spironolactone 50 mg PO HS 06/27/24 10/13/24 History Hydrocortisone [Cortef] 10 mg PO BID 07/27/24 10/13/24 History Potassium Chloride ER [K-Dur 20] 20 meq PO BID tab 07/31/24 10/13/24 Rx Tiotropium 2.5 Mcg/Puff [Spiriva 2 puff INHALATION RT-DAILY each 07/31/24 10/13/24 Rx Respimat 2.5 Mcg] Bumetanide [BUMEX] 2 mg PO DAILY 09/20/24 10/13/24 History Colchicine 0.6 mg PO DAILY 09/20/24 10/13/24 History Diphenhydramine 50mg/Ml 50 mg IM Q6H PRN 09/20/24 10/13/24 History Fezolinetant [Veozah] 45 mg PO DAILY 09/20/24 10/13/24 History allopurinoL [Zyloprim] 300 mg PO DAILY 09/20/24 10/13/24 History Ipratropium-Albuterol Nebulize 3 ml INHALATION RT-TID 1 Days #90 09/23/24 10/13/24 Rx [Duoneb 0.5 mg-3 mg/3 ml Soln] each Mupirocin 2% Oint [Bactroban 2% 1 applic TOPICAL TID #30 gm 10/12/24 Rx Oint] Sulfamethox-Tmp 800-160Mg [Bactrim 1 each PO Q12HR #20 tab 10/12/24 Rx Ds] Diclofenac Sodium [Voltaren 1 applic TOPICAL QID PRN 10/13/24 10/13/24 History Arthritis Pain 1% Gel] Midodrine [ProAmatine] 5 mg PO AC-TID PRN 10/13/24 10/13/24 History Allergies Allergy/AdvReac Type Severity Reaction Status Date / Time Penicillins Allergy Severe Anaphylaxis Verified 10/13/24 13:44 vancomycin Allergy Severe Swelling Verified 10/13/24 13:44 in lips NSAIDS (Non-Steroidal Allergy Unknown pt has Verified 10/13/24 13:44 Anti-Inflamma clotting disorder and is to not take NSAIDS cefepime Allergy Swelling Verified 10/13/24 13:44 clindamycin Allergy Anaphylaxis Verified 10/13/24 13:44 Influenza Virus Vaccines Allergy Anaphylaxis Verified 10/13/24 13:44 latex Allergy Itching Verified 10/13/24 13:44 and swelling morphine Allergy Anaphylaxis Verified 10/13/24 13:44 albuterol [From Ventolin HFA] AdvReac Rapid Verified 10/13/24 13:44 Heart Rate galcanezumab-gnlm AdvReac Confusion, Verified 10/13/24 13:44 [From Emgality Pen] increased blood pressure metoclopramide [From Reglan] AdvReac "felt like Verified 10/13/24 13:44 I needed to jump out of my skin" prochlorperazine AdvReac severe Verified 10/13/24 13:44 [From Compazine] anxiety Physical Exam Vitals: Vital Signs Temp Pulse Pulse Resp BP BP Pulse Ox 10/13/24 13:14 98.1 F 71 17 123/45 94 L 10/13/24 10:44 97.5 F L 73 17 119/74 94 L 10/13/24 09:00 97.7 F 70 18 104/69 98 10/13/24 08:36 98 F 72 18 107/69 97 10/13/24 08:00 72 18 98 10/13/24 07:17 97.2 F L 69 18 112/69 100 10/13/24 07:00 97.8 F 71 16 105/54 96 10/13/24 06:00 97.8 F 70 18 111/85 99 10/13/24 04:26 97.8 F 71 20 101/53 97 10/13/24 01:38 70 20 115/71 98 10/13/24 00:00 71 101/66 97 10/12/24 23:45 69 16 101/66 97 10/12/24 23:21 98.0 F 70 97/58 99 10/12/24 21:58 71 18 100/63 96 10/12/24 20:17 98.6 F 70 18 139/60 96 06/13/25 19:16 98.1 F 71 18 124/81 98 Intake and Output 10/12/24 10/13/24 10/13/24 22:59 06:59 14:59 Output Total 800 Balance -800 Output: Urine 800 Other: Weight 69.4 kg 69.4 kg GENERAL DESCRIPTION: Middle-age female lying in bed, no distress. No tachypnea or accessory muscle of respiration use. HEENT: Shows Pallor , no scleral icterus. Oral mucous membrane is dry. No phary ngeal erythema or thrush NECK: Trachea central, no thyromegaly. LUNGS: Unlabored breathing. Clear to auscultation anteriorly. No wheeze or crackle. HEART: S1, S2, regular rate and rhythm. No loud murmur ABDOMEN: Soft, no tenderness , guarding or rigidity, no organomegaly EXTREMITIES: Left lower extremity did have a ulceration with associated swelling no foul-smelling drainage SKIN: No rash, no masses palpable. NEUROLOGICAL: The patient is awake, alert, oriented x3, mood and affect normal. Results CBC & Chem 7: 10/14/24 05:37 10/14/24 05:37 Labs: Abnormal Lab Results - Last 24 Hours (Table) 10/12/24 10/12/24 10/12/24 Range/Units 06:55 21:21 21:21 RBC 3.64 L (4.10-5.20) 10*6/uL Hgb 11.6 L (12.0-15.0) g/dL Hct 34.2 L (37.2-46.3) % Potassium 3.0 L (3.5-5.1) mmol/L BUN 30 H (7-17) mg/dL Creatinine 1.46 H (0.52-1.04) mg/dL Glucose 101 H (74-99) mg/dL Total Protein 6.1 L (6.3-8.2) g/dL Ur Leukocyte Esterase Small H (Negative) Hyaline Casts 32 H (0-2) /lpf Urine Mucus Rare H (None) /hpf Assessment and Plan (1) Leg ulcer, left Current Visit: Yes Status: Acute Code(s): L97.929 - NON-PRS CHRONIC ULC UNSP PRT OF L LOW LEG W UNSP SEVERITY SNOMED Code(s): 31910783 (2) Cellulitis of left leg Current Visit: Yes Status: Acute Code(s): L03.116 - CELLULITIS OF LEFT LOWER LIMB SNOMED Code(s): 70759595942208228 (3) Allergy to multiple antibiotics Current Visit: No Status: Acute Code(s): Z88.1 - ALLERGY STATUS TO OTHER ANTIBIOTIC AGENTS SNOMED Code(s): 953046360 Plan: 1patient presented hospital with left lower extremity laceration with associated swelling redness and pain concerning for wound infection and cellulitis likely from gram-positive skin maddie 2patient with elevated creatinine high risk of nephrotoxicity from vancomycin 3patient with multiple antibiotic ALLERGIES that would limit the number of antibiotic safe to use 4local cultures obtained to guide further antibiotic therapy 5patient will empirically treat with daptomycin while waiting for the culture to finalize 6local treatment with dry Aquacel silver dressing change q. 48-hour We will follow on clinical condition and cultures to further adjust medication if needed Thank you for this consultation we will follow the patient along with you Dictation was produced using [employer] dictation software. please excuse any grammatical, word or spelling errors. Time with Patient: Greater than 30
[2024-10-14] MEDS: FLUCONAZOLE 150 MG TAB PO STA (13:00)
--- NOTE | 2024-10-14 15:08 | P.PN ---
Subjective Progress Note Date: 10/14/24 Patient is a 59-year-old female with multiple comorbidities presented to the hospital with left lower extremity laceration with associated swelling redness concerning for cellulitis in this patient who did have multiple antibiotic allergies prompting this consultation On today's evaluation that is 10/14/2024, Patient is afebrile patient is currently on room air and denies having any shortness of breath, the patient denies any chest pain or cough, the patient denies any nausea vomiting did not have any abdominal pain and no diarrhea has been complaining of vaginal itching concerning for vaginal yeast infection and generalized body itching. Patient white count is 5.36 creatinine is 1.35 cultures are currently pending Objective - Vital Signs Vital signs: Vital Signs Temp 98.6 F 10/14/24 14:56 Pulse 69 10/14/24 12:44 Resp 20 10/14/24 12:44 BP 114/79 10/14/24 12:44 Pulse Ox 95 10/14/24 12:44 FiO2 Intake & Output 10/13/24 10/14/24 10/14/24 18:59 06:59 18:59 Intake Total 360 Output Total 800 Balance -440 Weight 69.4 kg Intake: Oral 360 Output: Urine 800 Other: Voiding Method Toilet Toilet # Voids 5 3 - Exam GENERAL DESCRIPTION: Middle-age female lying in bed in no distress RESPIRATORY SYSTEM: Unlabored breathing , decreased breath sounds at bases HEART: S1 S2 regular rate and rhythm , ABDOMEN: Soft , no tenderness EXTREMITIES: Left lower extremity pustule and leg laceration no drainage was noticed - Labs CBC & Chem 7: 10/14/24 05:37 10/14/24 05:37 Labs: Abnormal Lab Results - Last 24 Hours (Table) 10/13/24 10/14/24 10/14/24 Range/Units 14:27 05:37 05:37 RBC 3.93 L (4.10-5.20) 10*6/uL RDW 15.9 H (11.5-14.5) % Lymphocytes # 0.86 L (0.90-5.00) 10*3/uL Sodium 135 L (137-145) mmol/L Potassium 5.9 H 5.6 H (3.5-5.1) mmol/L Carbon Dioxide 20 L (22-30) mmol/L BUN 29 H (7-17) mg/dL Creatinine 1.35 H (0.52-1.04) mg/dL Glucose 69 L (74-99) mg/dL AST 44 H (14-36) U/L Microbiology - Last 24 Hours (Table) 10/13/24 16:33 Gram Stain - Preliminary Leg - Left Assessment and Plan (1) Leg ulcer, left Current Visit: Yes Status: Acute Code(s): L97.929 - NON-PRS CHRONIC ULC UNSP PRT OF L LOW LEG W UNSP SEVERITY SNOMED Code(s): 33480558 (2) Cellulitis of left leg Current Visit: Yes Status: Acute Code(s): L03.116 - CELLULITIS OF LEFT LOWER LIMB SNOMED Code(s): 15479194834874447 (3) Allergy to multiple antibiotics Current Visit: No Status: Acute Code(s): Z88.1 - ALLERGY STATUS TO OTHER ANTIBIOTIC AGENTS SNOMED Code(s): 065549358 Plan: 1patient presented hospital with left lower extremity laceration with associated swelling redness and pain concerning for wound infection and cellulitis likely from gram-positive skin maddie 2patient with elevated creatinine high risk of nephrotoxicity from vancomycin 3patient with multiple antibiotic ALLERGIES that would limit the number of antibiotic safe to use 4local cultures obtained which are currently pending 5patient currently being treated with daptomycin while waiting for the culture to finalize, she did have Benadryl for the itching, Atarax could not be added because of the drug interaction Multiple questions and concerns were answered in layman term Dictation was produced using [employer] software. please excuse any gramma tical, word or spelling errors.
[2024-10-14] MEDS: CLOTRIMAZOLE/BETAMETH 1-0.05% CREAM 45 GM TUBE TOPICAL SCH (20:50)
--- NOTE | 2024-10-15 05:06 | PN ---
PROGRESS NOTE SUBJECTIVE: Irretractable pain, edema, sepsis and abscess of the left leg. Dr. Luo got her on daptomycin. Rest wait until cultures came back before we sent her home. She has increased edema given her IV Lasix and have Cardiology consulted. She apparently is having a seizure versus pseudoseizures and difficulties with nurses today so she is going to get psych and neuro orders here. Vital signs otherwise reviewed. She is given appropriate answers. She is upset with everybody today. PHYSICAL EXAMINATION: CARDIOVASCULAR: S1, S2. LUNGS: Scattered wheeze. GI: Soft. EXTREMITIES: 2+ edema, left inner lower calf shows abscess, ulceration with yellow eschar over the wound. Dermal wound. Prognosis is guarded. Continue on daptomycin. Wait for cultures. Prognosis is guarded. MMODL / IJN: [id number] /
--- NOTE | 2024-10-15 09:45 | P.PN ---
Progress Note - Text Progress Note Date: 10/15/24 Patient has history of pseudoseizure and is known to me from prior hospital admission. She has known history of refusing to be managed by me. As result, there our consult will be cancelled. Please notify neurology team if any further concerns or any assistance we can provide.
--- NOTE | 2024-10-15 09:59 | P.CRDCN ---
History of Present Illness History of present illness: This is 59-year-old female patient of Dr. Hanson with past medical history of dyslipidemia, transcatheter tricuspid valve replacement performed in [facility] in 06/2013, followed by a valve in valve replacement done in [place]. Also has past medical history of pacemaker implantation in 2013 done in [place] with atrial lead only. 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 Patient initially presented with lower extremity wound which has been getting worse and some erythema and pain. Patient states she was diagnosed again with pyoderma gangrenosum and also has these lesions on her bilateral hands which she attributes to lupus. She states that normally during periods of infection she will have increasing edema and increasing shortness of breath and more prone to the heart failure. She has CKD with creatinine in the 1.3-1.6 range. She states she has been more short of breath, increasing dyspnea with exertion and increasing lower extremity edema. She was placed on IV Bumex with some improvement in urine output. Creatinine had gone from 1.5-1.4. Denies any consistent chest pain however has some pressure. She is concerned regarding possible valve or pacemaker infection. Currently feels somewhat better than when she came in. -Echocardiogram performed 12/28/2023 reveals EF 55 to 60%, mildly increased left ventricular wall thickness. No mitral regurgitation. Bioprosthetic aortic valve without significant gradients and no aortic regurgitation. Normally functioning bioprosthetic tricuspid valve with mean gradient of 3. -PORFIRIO performed 11/03/2022 revealed normal EF, mild TR, bioprosthetic tricuspid valve with normal appearance and no evidence of vegetation. -Dobutamine stress echo performed 05/31/2022 revealed normal EF, normal study, seizure at peak. Review Of Systems: At the time of my exam: CONSTITUTIONAL: Denies fever or chills. HEENT: Denies blurred vision, vision changes, or eye pain. Denies hemoptysis CARDIOVASCULAR: Denies chest pain. Denies orthopnea. Denies PND. Denies palpitations RESPIRATORY: Denies shortness of breath. GASTROINTESTINAL: Denies abdominal pain. Denies nausea or vomiting. HEMATOLOGIC: Denies bleeding disorders. GENITOURINARY: Denies any blood in urine. SKIN: Denies puritis. Denies rash. Physical examination: Gen: This is 59-year-old female in no acute distress VS: reviewed HEENT: Head is atraumatic, normocephalic. Pupils equal, round. Sclerae is anicteric. NECK: Supple. No JVD. LUNGS: Clear to auscultation. No wheezes or rhonchi. No intercostal retractions. HEART: Regular rate and rhythm. 2/6 systolic murmur. ABDOMEN: Soft No tenderness. EXTREMITIES: 2+ upper and lower extremity edema. No calf tenderness. NEUROLOGICAL: Patient is awake, alert and oriented x3. Assessment: Acute diastolic heart failure Lower extremity wound/infection/pyoderma gangrenosum History of bradycardia History of permanent pacemaker in 2013 Transcatheter tricuspid valve replacement in 2013 followed by valve in valve replacement History of PE on Eliquis Seizure disorder Single kidney due to right renal artery embolism Chronic kidney disease stage III History of pyoderma granulosum Antiphospholipid antibody syndrome Plan: Patient's main presentation appears related to infection and lower extremity wound however is having some increased lower extremity swelling. Agree with IV Bumex and monitor response. Check 2D echo to evaluate for any possible vegetation. Check blood culture given concern of vegetation by patient. Further recommendations to follow. Past Medical History Past Medical History: Blood Disorder, Myocardial Infarction (CT), Pulmonary Embolus (PE), Renal Disease, Seizure Disorder Additional Past Medical History / Comment(s): Antiphospholipid antibody syndrome which causes clots and bleeding, multiple PEs, R renal artery embolism/now atrophic, CKD stage III, hypotension, hypokalemia especially w/stress, lupus, pyoderma grangrenosum, 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 Patient states past history of C-Diff from 03/2023. last seizure last night twitching, usually with migraines or electrolyte imbalance. h as had massive bleeding from xarelto Last Myocardial Infarction Date:: 08/30/2018 History of Any Multi-Drug Resistant Organisms: C-DIFF Date of last positivie culture/infection: 2023 has had three times MDRO Source:: unk Past Surgical History: Back Surgery, Breast Surgery, Cardiac Valve Replacement, Section, Cholecystectomy, Heart Catheterization, Hysterectomy, Pa karlieaker Additional Past Surgical History / Comment(s): pacemaker d/t bradyc ardia/hypotension with last one place in 2013 in [place], [place], 3 lower back surgeries, bilateral breast reduction. 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. lamenectomy Past Anesthesia/Blood Transfusion Reactions: No Reported Reaction Additional Past Anesthesia/Blood Transfusion Reaction / Comment(s): blood transfusion no issues Type of Cardiac Device: Permanent Pacemaker, Unknown Device Placement Date:: 2012 Past Psychological History: Anxiety, PTSD Smoking Status: Never smoker Past Alcohol Use History: Rare Past Drug Use History: Marijuana - Past Family History Mother Additional Family Medical History / Comment(s): Mother at the age of 49 yrs after surgery for silicon breast implants with a leak that caused ARDS and DIC per pt (fibroid cysts) Father Family Medical History: Cancer, Hyperlipidemia, Hypertension Additional Family Medical History / Comment(s): Father is a colon cancer survivor. Medications and Allergies Home Medications Medication Instructions Recorded Confirmed Type Atorvastatin [Lipitor] 40 mg PO HS 09/24/21 10/13/24 History Sertraline [Zoloft] 200 mg PO DAILY 09/24/21 10/13/24 History Apixaban [Eliquis] 5 mg PO BID 05/29/22 10/13/24 History busPIRone HCl [Buspar] 5 mg PO BID 06/11/22 10/13/24 History Fludrocortisone [Florinef] 0.1 mg PO DAILY 09/20/22 10/13/24 History rOPINIRole HCL [Requip] 2 mg PO HS 04/28/23 10/13/24 History Budesonide/Glycopyr/Formoterol 2 puff INHALATION RT-BID 12/26/23 10/13/24 History [Breztri Aerosphere Inhaler] Gabapentin 600 mg PO TID 12/26/23 10/13/24 History Ondansetron [Zofran] 4 mg PO TID PRN 12/26/23 10/13/24 History HYDROcodone/APAP 7.5-325MG [[place] 1 tab PO TID 04/06/24 10/13/24 History 7.5-325] Pantoprazole [Protonix] 40 mg PO AC-BID 30 Days #60 tab 04/24/24 10/13/24 Rx Cyclobenzaprine [Flexeril] 5 mg PO TID PRN 06/18/24 10/13/24 History QUEtiapine [SEROquel] 25 mg PO HS PRN 06/18/24 10/13/24 History Bumetanide [BUMEX] 1 mg PO HS 06/27/24 10/13/24 History Metoprolol Succinate (ER) [Toprol 50 mg PO DAILY 06/27/24 10/13/24 History XL] Spironolactone 50 mg PO HS 06/27/24 10/13/24 History Hydrocortisone [Cortef] 10 mg PO BID 07/27/24 10/13/24 History Potassium Chloride ER [K-Dur 20] 20 meq PO BID tab 07/31/24 10/13/24 Rx Tiotropium 2.5 Mcg/Puff [Spiriva 2 puff INHALATION RT-DAILY each 07/31/24 10/13/24 Rx Respimat 2.5 Mcg] Bumetanide [BUMEX] 2 mg PO DAILY 09/20/24 10/13/24 History Colchicine 0.6 mg PO DAILY 09/20/24 10/13/24 History Diphenhydramine 50mg/Ml 50 mg IM Q6H PRN 09/20/24 10/13/24 History Fezolinetant [Veozah] 45 mg PO DAILY 09/20/24 10/13/24 History allopurinoL [Zyloprim] 300 mg PO DAILY 09/20/24 10/13/24 History Ipratropium-Albuterol Nebulize 3 ml INHALATION RT-TID 1 Days #90 09/23/24 10/13/24 Rx [Duoneb 0.5 mg-3 mg/3 ml Soln] each Mupirocin 2% Oint [Bactroban 2% 1 applic TOPICAL TID #30 gm 10/12/24 Rx Oint] Sulfamethox-Tmp 800-160Mg [Bactrim 1 each PO Q12HR #20 tab 10/12/24 Rx Ds] Diclofenac Sodium [Voltaren 1 applic TOPICAL QID PRN 10/13/24 10/13/24 History Arthritis Pain 1% Gel] Midodrine [ProAmatine] 5 mg PO AC-TID PRN 10/13/24 10/13/24 History Allergies Allergy/AdvReac Type Severity Reaction Status Date / Time Penicillins Allergy Severe Anaphylaxis Verified 10/13/24 13:44 vancomycin Allergy Severe Swelling Verified 10/13/24 13:44 in lips NSAIDS (Non-Steroidal Allergy Unknown pt has Verified 10/13/24 13:44 Anti-Inflamma clotting disorder and is to not take NSAIDS cefepime Allergy Swelling Verified 10/13/24 13:44 clindamycin Allergy Anaphylaxis Verified 10/13/24 13:44 Influenza Virus Vaccines Allergy Anaphylaxis Verified 10/13/24 13:44 latex Allergy Itching Verified 10/13/24 13:44 and swelling morphine Allergy Anaphylaxis Verified 10/13/24 13:44 albuterol [From Ventolin HFA] AdvReac Rapid Verified 10/13/24 13:44 Heart Rate galcanezumab-gnlm AdvReac Confusion, Verified 10/13/24 13:44 [From Emgality Pen] increased blood pressure metoclopramide [From Reglan] AdvReac "felt like Verified 10/13/24 13:44 I needed to jump out of my skin" prochlorperazine AdvReac severe Verified 10/13/24 13:44 [From Compazine] anxiety Physical Exam Vitals: Vital Signs Temp Pulse Pulse Resp BP Pulse Ox 10/15/24 08:05 75 16 10/15/24 07:54 74 18 94 L 10/15/24 07:04 98.5 F 71 18 123/67 100 10/15/24 01:36 98.6 F 79 16 136/87 100 10/14/24 20:00 98.4 F 80 16 158/68 93 L 10/14/24 19:37 77 10/14/24 18:25 77 118/72 10/14/24 17:29 97.7 F 10/14/24 14:56 98.6 F 10/14/24 12:44 98 F 69 20 114/79 95 10/14/24 12:06 74 10/14/24 11:55 71 Intake and Output 10/14/24 10/15/24 10/15/24 22:59 06:59 14:59 Intake Total 1000 1070 Balance 1000 1070 Intake: Oral 1000 1070 Other: Voiding Method Toilet # Voids 3 4 Results 10/14/24 05:37 10/14/24 05:37 Current Medications Generic Name Dose Route Start Last Admin Trade Name Freq PRN Reason Stop Dose Admin Acetaminophen 650 mg 10/13/24 04:44 Acetaminophen Tab 325 Mg Tab PO Q6HR PRN Mild Pain or Fever > 100.5 Hydrocodone Bitart/Acetaminophen 1 each 10/13/24 16:00 10/14/24 22:12 Hydrocodone/Apap 7.5-325mg 1 Each Tab PO 1 each TID ASAD Administration Albuterol/Ipratropium 3 ml 10/13/24 13:00 10/15/24 07:52 Ipratropium-Albuterol 3 Ml Neb INHALATION 3 ml RT-TID ASAD Administration Allopurinol 300 mg 10/14/24 09:00 10/15/24 09:04 Allopurinol 300 Mg Tab PO 300 mg DAILY ASAD Administration Apixaban 5 mg 10/13/24 12:45 10/15/24 09:04 Apixaban 5 Mg Tab PO 5 mg BID ASAD Administration Protocol Betamethasone/Clotrimazole 1 applic 10/14/24 21:00 10/15/24 09:10 Clotrimazole/Betameth 1-0.05% Cream 45 Gm Tube TOPICAL 1 applic BID [facility] Administration Protocol Bumetanide 0.5 mg 10/13/24 19:00 10/14/24 19:01 Bumetanide 0.25 Mg/Ml 4 Ml Vial IV 0.5 mg Q12H ASAD Administration Buspirone HCl 5 mg 10/13/24 21:00 10/15/24 09:04 Buspirone Hcl 5 Mg Tab PO 5 mg BID ASAD Administration Colchicine 0.6 mg 10/14/24 09:00 10/15/24 09:06 Colchicine 0.6 Mg Each PO 0.6 mg DAILY ASAD Administration Cyclobenzaprine HCl 5 mg 10/13/24 12:35 Cyclobenzaprine 5 Mg Tab PO TID PRN Muscle Spasm Diphenhydramine HCl 50 mg 10/13/24 06:06 10/15/24 06:42 Diphenhydramine 50 Mg/Ml 1 Ml Vial IVP 50 mg Q6HR PRN Administration Itching Fludrocortisone Acetate 0.1 mg 10/14/24 09:00 10/15/24 09:06 Fludrocortisone 0.1 Mg Tab PO 0.1 mg DAILY ASAD Administration Gabapentin 600 mg 10/13/24 21:00 10/15/24 09:04 Gabapentin 300 Mg Cap PO 600 mg BID ASAD Administration Hydrocortisone 10 mg 10/13/24 21:00 10/15/24 09:06 Hydrocortisone 10 Mg Tab PO 10 mg BID ASAD Administration Hydromorphone HCl 0.5 mg 10/13/24 07:00 10/15/24 09:14 Hydromorphone 0.5 Mg/0.5 Ml Syringe IVP 0.5 mg Q4HR PRN Administration Pain Daptomycin 300 mg/ Sodium 50 mls @ 100 mls/hr 10/13/24 15:00 10/14/24 15:37 Chloride IVPB 100 mls/hr Q24H ASAD Administration Protocol Metoprolol Succinate 50 mg 10/14/24 09:00 10/15/24 09:05 Metoprolol Succinate (Er) 50 Mg Tab.Er.24h PO 50 mg DAILY ASAD Administration Midodrine 10 mg 10/13/24 17:30 10/15/24 09:09 Midodrine 5 Mg Tab PO Not Given AC-TID ASAD Naloxone HCl 0.2 mg 10/13/24 04:44 Naloxone 0.4 Mg/Ml 1 Ml Vial IV Q2M PRN Opioid Reversal Non-Formulary Medication 45 mg 10/14/24 09:00 10/15/24 09:11 Fezolinetant [Veozah] PO Not Given DAILY ASAD Ondansetron HCl 4 mg 10/13/24 04:44 Ondansetron 4 Mg/2 Ml Vial IVP Q8HR PRN Nausea And Vomiting Ondansetron HCl 4 mg 10/13/24 12:35 Ondansetron Odt 4 Mg Tab PO TID PRN Nausea Pantoprazole Sodium 40 mg 10/13/24 17:30 10/15/24 09:04 Pantoprazole 40 Mg Tablet PO 40 mg AC-BID ASAD Administration Potassium Chloride 20 meq 10/13/24 21:00 10/15/24 09:04 Potassium Chloride Er 20 Meq Tab.Er PO 20 meq BID ASAD Administration Sertraline HCl 200 mg 10/14/24 09:00 10/15/24 09:05 Sertraline 100 Mg Tab PO 200 mg DAILY ASAD Administration Spironolactone 50 mg 10/13/24 21:00 10/14/24 20:49 Spironolactone 25 Mg Tab PO 50 mg HS ASAD Administration Intake and Output 10/14/24 10/15/24 10/15/24 22:59 06:59 14:59 Intake Total 1000 1070 Balance 1000 1070 Intake: Oral 1000 1070 Other: Voiding Method Toilet # Voids 3 4 10/14/24 05:37 10/14/24 05:37
[2024-10-15 10:16] LABS: Basophils # (A) 0.03 X 10*3/uL (0.00-0.10); Basophils % (A) 0.4 %; Eosinophils # (A) 0.09 X 10*3/uL (0.04-0.35); Eosinophils % (A) 1.3 %; HCT 38.7 % (37.2-46.3); Lymphocytes # (A) 0.84 X 10*3/uL (0.90-5.00); Lymphocytes % (A) 12.4 %; MCH 30.8 pg (27.0-32.0); MCV 99.2 FL (80.0-97.0); Mean Platelet Volume 11.3 FL (9.5-12.2); Monocytes # (A) 0.58 X 10*3/uL (0.20-1.00); Monocytes % (A) 8.6 %; NRBC Per 100 WBC 0 X 10*3/uL (0.00-0.01); Neutrophils # (A) 5.22 X 10*3/uL (1.80-7.70); Platelet Count 232 X 10*3/uL (140-440); WBC 6.78 X 10*3/uL (4.50-10.00)
[2024-10-15 10:25] LABS: ALT 26 U/L (8-44); AST 28 U/L (13-35); Albumin/Globulin Ratio 1.67 Ratio (1.60-3.17); Alkaline Phosphatase 81 U/L (41-126); BUN/Creat Ratio 16.25 Ratio (12.00-20.00); Calcium 9.2 mg/dL (8.7-10.3); Chloride 105 mmol/L (96-109); Globulin 2.4 g/dL (1.6-3.3); Glucose 94 mg/dL (70-110); Potassium 5.2 mmol/L (3.5-5.5); Sodium 139 mmol/L (135-145); Total Bilirubin 0.3 mg/dL (0.3-1.2); Total Protein 6.4 g/dL (6.2-8.2)
[2024-10-15] MEDS: HYDROmorphone 1 MG/ML 1 ML SYRINGE IVP PRN (13:14)
--- NOTE | 2024-10-15 13:46 | P.CN ---
Psychiatric Consult - . Consult date: 10/15/24 Consult:: 10/15/24 13:40 IDENTIFYING DATA: This patient is a-year-old female, retired and living with REASON FOR REFERRAL: Psychiatry was consulted for anxiety/depression HISTORY OF PRESENT ILLNESS: The patient presented to the hospital shortness of breath and leg edema and was started on IV Bumex. Patient is also on [place] as needed for pain. Patient reports predominant pain in her legs, feeling "feverish" with shortness of breath. Patient expressed several somatic concerns but expressed difficulties in her care while at this hospital. She reports a long history of psychogenic nonepileptic seizures and states that she gets these roughly a few times each month. She states triggers include "electrolyte imbalances" and migraine and states yesterday having a migraine before experiencing one. She states the staff yesterday did not believe that she was having a seizure, was making fun of her and talking about her during the seizure. She states speaking to her primary care doctor who was able to change staff around because of these concerns and patient was fixated on not being taken seriously. He has tried counseling in the past and this was encouraged as this is the most effective treatment for psychogenic nonepileptic seizures. She states her PCP prescribes both Zoloft and BuSpar and she finds them helpful, not amenable to adjustments at this time. She states she began having mental health symptoms after the of her son however reports stability in terms of symptoms. At this time patient denies any suicidal or homicidal ideations, intent or plan. Patient denies any auditory, visual hallucinations and denies any paranoia or delusions. Patients admits to using cannabis. PAST PSYCHIATRIC HISTORY: Patient has a history of depression, anxiety. She is currently on Zoloft 200 mg daily, BuSpar 5 mg twice daily. Patient denies any previous psychiatric hospitalizations. Patient denies any psychiatric outpatient follow-up. Patient reports 1 remote suicide attempt via OD PAST MEDICAL HISTORY: [place], PE, renal disease, antiphospholipid antibody syndrome, kidney disease. ALLERGIES: as per EMR. CHEMICAL DEPENDENCY HISTORY: as per HPI. FAMILY PSYCHIATRIC/SUBSTANCE USE HISTORY: Denies SOCIAL HISTORY: Patient is and lives with her . She has 3 children. 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 MENTAL STATUS EXAM: General Appearance: Patient appears to be stated age is alert, pleasant, and c ooperative. Patient appears to have fair hygiene and grooming wearing hospital gown with fair eye contact. Behavior: Patient is calmly lying in bed without any agitated behavior. She is tearful, appeared in pain Speech: Patient's speech is fluent and nonpressured. Mood/Affect: Patient reports their mood is "in pain", affect is congruent, labile Suicidality/Homicidality: Patient denies having any suicidal or homicidal ideation intent or plan. Perceptions: Patient denies any visual hallucinations and denies any auditory hallucinations Though content/process: There is no evidence of any delusional thought content and thought process is linear and goal-directed. Memory and concentration: AOX3, grossly intact for the purposes of this session. Can spell "WORLD" backwards Judgment and insight: Poor IMPRESSIONS: History of depression History of anxiety Psychogenic nonepileptic seizures Cluster B traits Cannabis use disorder PLAN: -At this time patient DOES NOT meet criteria for inpatient psychiatric admission. -Would recommend the following medication changes/additions: Continue Zoloft 200 mg daily, BuSpar 5 mg twice daily, patient encouraged to follow-up with PCP for further med adjustments. 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
--- NOTE | 2024-10-15 13:54 | P.GSCN ---
History of Present Illness Consult date: 10/15/24 Reason for Consult: Left lower extremity abscess for I&D and cultures Requesting physician: Cass Luo History of present illness: This a pleasant 59-year-old female with multiple comorbidities who presented to the emergency department a few days ago with complaints of left lower extremity pain and swelling. Apparently patient had scraped her leg with a piece of metal few days prior to coming into the hospital. Since that time she has had increased swelling and pain in that left lower extremity. She had a venous duplex that was negative for DVT. She was seen by infectious disease who started her on antibiotics and consulted vascular surgery for I&D and deep tissue cultures. Patient's been afebrile. No leukocytosis. Denies fever or chills. Currently complaining of back pain. Review of Systems A 14 point review systems was completed all pertinent positives and negatives as stated in the HPI. 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 Patient states past history of C-Diff from 03/2023. last seizure last night twitching, usually with migraines or electrolyte imbalance. has had massive bleeding from xarelto Last Myocardial Infarction Date:: 08/30/2018 History of Any Multi-Drug Resistant Organisms: C-DIFF Year Discovered:: 2023 has had three times MDRO Source:: unk Past Surgical History: Back Surgery, Breast Surgery, Cardiac Valve Replacement, Section, Cholecystectomy, Heart Catheterization, Hysterectomy, Pacemaker Additional Past Surgical History / Comment(s): pacemaker d/t bradycardia/hypotension with last one place in 2013 in [place], [place], 3 lower back surgeries, bilateral breast reduction. 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. lamenectomy Past Anesthesia/Blood Transfusion Reactions: No Reported Reaction Additional Past Anesthesia/Blood Transfusion Reaction / Comm: blood transfusion no issues Type of Cardiac Device: Permanent Pacemaker, Unknown Device Placement Date:: 2012 Past Psychological History: Anxiety, PTSD Smoking Status: Never smoker Past Alcohol Use History: Rare Past Drug Use History: Marijuana - Past Family History Mother Additional Family Medical History / Comment(s): Mother at the age of 49 yrs after surgery for silicon breast implants with a leak that caused ARDS and DIC per pt (fibroid cysts) Father Family Medical History: Cancer, Hyperlipidemia, Hypertension Additional Family Medical History / Comment(s): Father is a colon cancer survivor. Medications and Allergies Home Medications Medication Instructions Recorded Confirmed Type Atorvastatin [Lipitor] 40 mg PO HS 09/24/21 10/13/24 History Sertraline [Zoloft] 200 mg PO DAILY 09/24/21 10/13/24 History Apixaban [Eliquis] 5 mg PO BID 05/29/22 10/13/24 History busPIRone HCl [Buspar] 5 mg PO BID 06/11/22 10/13/24 History Fludrocortisone [Florinef] 0.1 mg PO DAILY 09/20/22 10/13/24 History rOPINIRole HCL [Requip] 2 mg PO HS 04/28/23 10/13/24 History Budesonide/Glycopyr/Formoterol 2 puff INHALATION RT-BID 12/26/23 10/13/24 History [Breztri Aerosphere Inhaler] Gabapentin 600 mg PO TID 12/26/23 10/13/24 History Ondansetron [Zofran] 4 mg PO TID PRN 12/26/23 10/13/24 History HYDROcodone/APAP 7.5-325MG [[place] 1 tab PO TID 04/06/24 10/13/24 History 7.5-325] Pantoprazole [Protonix] 40 mg PO AC-BID 30 Days #60 tab 04/24/24 10/13/24 Rx Cyclobenzaprine [Flexeril] 5 mg PO TID PRN 06/18/24 10/13/24 History QUEtiapine [SEROquel] 25 mg PO HS PRN 06/18/24 10/13/24 History Bumetanide [BUMEX] 1 mg PO HS 06/27/24 10/13/24 History Metoprolol Succinate (ER) [Toprol 50 mg PO DAILY 06/27/24 10/13/24 History XL] Spironolactone 50 mg PO HS 06/27/24 10/13/24 History Hydrocortisone [Cortef] 10 mg PO BID 07/27/24 10/13/24 History Potassium Chloride ER [K-Dur 20] 20 meq PO BID tab 07/31/24 10/13/24 Rx Tiotropium 2.5 Mcg/Puff [Spiriva 2 puff INHALATION RT-DAILY each 07/31/24 10/13/24 Rx Respimat 2.5 Mcg] Bumetanide [BUMEX] 2 mg PO DAILY 09/20/24 10/13/24 History Colchicine 0.6 mg PO DAILY 09/20/24 10/13/24 History Diphenhydramine 50mg/Ml 50 mg IM Q6H PRN 09/20/24 10/13/24 History Fezolinetant [Veozah] 45 mg PO DAILY 09/20/24 10/13/24 History allopurinoL [Zyloprim] 300 mg PO DAILY 09/20/24 10/13/24 History Ipratropium-Albuterol Nebulize 3 ml INHALATION RT-TID 1 Days #90 09/23/24 10/13/24 Rx [Duoneb 0.5 mg-3 mg/3 ml Soln] each Mupirocin 2% Oint [Bactroban 2% 1 applic TOPICAL TID #30 gm 10/12/24 Rx Oint] Sulfamethox-Tmp 800-160Mg [Bactrim 1 each PO Q12HR #20 tab 10/12/24 Rx Ds] Diclofenac Sodium [Voltaren 1 applic TOPICAL QID PRN 10/13/24 10/13/24 History Arthritis Pain 1% Gel] Midodrine [ProAmatine] 5 mg PO AC-TID PRN 10/13/24 10/13/24 History Allergies Allergy/AdvReac Type Severity Reaction Status Date / Time Penicillins Allergy Severe Anaphylaxis Verified 10/13/24 13:44 vancomycin Allergy Severe Swelling Verified 10/13/24 13:44 in lips NSAIDS (Non-Steroidal Allergy Unknown pt has Verified 10/13/24 13:44 Anti-Inflamma clotting disorder and is to not take NSAIDS cefepime Allergy Swelling Verified 10/13/24 13:44 clindamycin Allergy Anaphylaxis Verified 10/13/24 13:44 Influenza Virus Vaccines Allergy Anaphylaxis Verified 10/13/24 13:44 latex Allergy Itching Verified 10/13/24 13:44 and swelling morphine Allergy Anaphylaxis Verified 10/13/24 13:44 albuterol [From Ventolin HFA] AdvReac Rapid Verified 10/13/24 13:44 Heart Rate galcanezumab-gnlm AdvReac Confusion, Verified 10/13/24 13:44 [From Emgality Pen] increased blood pressure metoclopramide [From Reglan] AdvReac "felt like Verified 10/13/24 13:44 I needed to jump out of my skin" prochlorperazine AdvReac severe Verified 10/13/24 13:44 [From Compazine] anxiety Surgical - Exam Vital Signs Temp Pulse Resp BP Pulse Ox 98.1 F 71 18 124/81 98 10/12/24 19:16 10/12/24 19:16 10/12/24 19:16 10/12/24 19:16 10/12/24 19:16 General appearance: The patient is alert, oriented, appears in no acute distress. HET: Head is normocephalic and atraumatic. Pupils are equal and reactive. Neck: Supple. Heart: Regular. Lungs: Equal expansion, normal respiratory effort. Abdomen: Soft, nontender, nondistended. Extremities: Left lower extremity swelling. Palpable DP pulse. Left lower extremity medial aspect of calf with abrasion/wound to the subcutaneous tissue, no foul odor or drainage, some mild erythema surrounding. No abscess appreciated on this exam. Neurological: No focal deficits. Strength and sensation are grossly intact. Results - Labs 10/15/24 06:51 10/15/24 06:51 Abnormal Lab Results - Last 24 Hours (Table) 10/15/24 10/15/24 Range/Units 06:51 06:51 RBC 3.90 L (4.10-5.20) X 10*6/uL MCV 99.2 H (80.0-97.0) FL MCHC 31.0 L (32.0-37.0) g/dL RDW 16.0 H (11.5-14.5) % Lymphocytes # 0.84 L (0.90-5.00) X 10*3/uL Creatinine 1.6 H (0.6-1.5) mg/dL Est GFR (CKD-EPI) 37 L (>=60) Microbiology - Last 24 Hours (Table) 10/13/24 16:33 Gram Stain - Final Leg - Left Wound Culture - Final Diabetes panel 10/15/24 Range/Units 06:51 Sodium 139 (135-145) mmol/L Potassium 5.2 (3.5-5.5) mmol/L Chloride 105 (96-109) mmol/L Carbon Dioxide 23.0 (21.6-31.8) mmol/L BUN 26.0 (9.0-27.0) mg/dL Creatinine 1.6 H (0.6-1.5) mg/dL Glucose 94 (70-110) mg/dL Calcium 9.2 (8.7-10.3) mg/dL AST 28 (13-35) U/L ALT 26 (8-44) U/L Alkaline Phosphatase 81 (41-126) U/L Total Protein 6.4 (6.2-8.2) g/dL Albumin 4.0 (3.8-4.9) g/dL Calcium panel 10/15/24 Range/Units 06:51 Calcium 9.2 (8.7-10.3) mg/dL Albumin 4.0 (3.8-4.9) g/dL Pituitary panel 10/15/24 Range/Units 06:51 Sodium 139 (135-145) mmol/L Potassium 5.2 (3.5-5.5) mmol/L Chloride 105 (96-109) mmol/L Carbon Dioxide 23.0 (21.6-31.8) mmol/L BUN 26.0 (9.0-27.0) mg/dL Creatinine 1.6 H (0.6-1.5) mg/dL Glucose 94 (70-110) mg/dL Calcium 9.2 (8.7-10.3) mg/dL Adrenal panel 10/15/24 Range/Units 06:51 Sodium 139 (135-145) mmol/L Potassium 5.2 (3.5-5.5) mmol/L Chloride 105 (96-109) mmol/L Carbon Dioxide 23.0 (21.6-31.8) mmol/L BUN 26.0 (9.0-27.0) mg/dL Creatinine 1.6 H (0.6-1.5) mg/dL Glucose 94 (70-110) mg/dL Calcium 9.2 (8.7-10.3) mg/dL Total Bilirubin 0.3 (0.3-1.2) mg/dL AST 28 (13-35) U/L ALT 26 (8-44) U/L Alkaline Phosphatase 81 (41-126) U/L Total Protein 6.4 (6.2-8.2) g/dL Albumin 4.0 (3.8-4.9) g/dL Assessment and Plan Assessment: 1. Left lower extremity injury with wound 2. Left lower extremity cellulitis 3. Left lower extremity swelling Plan: 1. Continue with Aquacel silver change Tuesday 2. CT left lower extremity ordered, currently pending 3. Continue antibiotics per recommendations from infectious disease 4. Further recommendations forthcoming per vascular surgery Thank you for this consultation, we will continue to follow. The impression and plan of care has been dictated as directed. I performed a history and examination of this patient, discussed the same with the dictator. I agree with the dictator's note ,documented as a scribe. Any additional findings or plans will be noted.
--- NOTE | 2024-10-15 14:30 | XR ---
EXAMINATION TYPE: XR abdomen 1V DATE OF EXAM: 10/15/2024 2:12 PM COMPARISON: 07/11/2023. CLINICAL INDICATION: Female, 59 years old with history of Right sided abdominal pain; [facility] TECHNIQUE: One radiographic view of the abdomen was obtained. FINDINGS: Postsurgical changes to the lumbar spine have increased from 07/11/2023 involving L2-S1 with bilateral sacroiliac fixation screws. Hardware appears intact. Question: Discectomy changes. Moderate amount stool throughout the abdomen. The bowel gas pattern is nonspecific without dilated loops of small or large bowel. . Fecal material and gas are demonstrated throughout the colon and rectum. There is no evidence for organomegaly or pneumoperitoneum. No acute osseous process. No abnormal calcifications are present. IMPRESSION: Nonspecific bowel gas pattern without radiographic evidence for acute process. Post surgical changes spine and appear intact. [facility], Workstation: [facility], 10/15/2024 2:28 PM
--- NOTE | 2024-10-15 14:33 | CT ---
EXAMINATION TYPE: CT lower leg LT wo con DATE OF EXAM: 10/15/2024 COMPARISON: None CLINICAL INDICATION: Female, 59 years old with history of left leg abscess; [facility], left lower leg absce ss CT DLP: 945.5 mGycm Automated exposure control for dose reduction was used. FINDINGS: There is mild diffuse soft tissue edema in the subcutaneous soft tissues. There is no focal mass or s welling within the muscular compartments. There is no soft tissue gas or calcification. There is no discrete mass or focal fluid collection or abscess. The osseous structures are intact. There is no cortical disruption or periosteal reaction. IMPRESSION: MILD TO MODERATE SUBCUTANEOUS SOFT TISSUE EDEMA. NO DISCRETE FLUID COLLECTION OR ABSCESS. NO FOCAL OS SEOUS LESION. [facility], , 10/15/2024 2:31 PM
[2024-10-15 16:38] LABS: Appearance,Urine Cloudy (Clear); Bacteria,Urine Rare /hpf; Bilirubin,Urine Negative (Negative); Blood,Urine Large (Negative); Color,Urine Colorless; Glucose,Urine (UA) Negative (Negative); Hyaline Casts,Urine 9 /lpf (0-2); Ketones,Urine Negative (Negative); Leukocyte Esterase,Urine Trace (Negative); Mucus,Urine Rare /hpf; Nitrite,Urine Negative (Negative); Protein,Urine Negative (Negative); RBC,Urine 55 /hpf (0-5); Urobilinogen,Urine <2.0 mg/dL (<2.0); WBC,Urine 16 /hpf (0-5)
[2024-10-15] MEDS: CYCLOBENZAPRINE 5 MG TAB PO PRN (17:42)
[2024-10-15] MEDS: HYDROmorphone 0.5 MG/0.5 ML SYRINGE IVP STA (21:22)
[2024-10-16] MEDS: SODIUM CHLORIDE 0.9% 1,000 ML IV SCH (01:20)
--- NOTE | 2024-10-16 03:12 | PN ---
PROGRESS NOTE SUBJECTIVE: A 59-year-old white female with intractable pain and edema. Has a wound infection. Waiting for final cultures. She is getting increasing pain and muscle cramping. She has had pseudoseizures yesterday, severe anxiety/multiple stressors. She is doing better today PHYSICAL EXAMINATION: VITAL SIGNS: Stable, afebrile. CARDIOVASCULAR: S1, S2. PSYCH: Fair mood and affect. She appears to be anxious and nervous. MUSCULOSKELETAL: Palpation of right lumbar spine. ASSESSMENT AND PLAN: Acute on chronic diastolic heart failure, chronic obstructive pulmonary disease, asthma, antiphospholipid antibody syndrome, chronic anemia, vaginal burning suspect order Lotrisone cream b.i.d. She possibly has a urinary infection and urine culture is pending. So far anaerobic cultures and gram stains are not completely read yet, but to rule out urinary tract infection. Prognosis guarded. Continue current treatment. Continue antibiotics per Dr. Luo. MMODL / IJN: [id number] /
--- NOTE | 2024-10-16 06:04 | P.PN ---
Subjective Progress Note Date: 10/15/24 Principal diagnosis: Reason for follow-up is left leg abscess cellulitis Patient is a 59-year-old female with multiple comorbidities presented to the hospital with left lower extremity laceration with associated swelling redness concerning for cellulitis in this patient who did have multiple antibiotic allergies prompting this consultation On today's evaluation that is 10/15/2024, patient has been afebrile, patient is breathing comfortably and is currently on room air, patient has been complaining of more pain to the left lower extremity along with generalized bodyaches nausea but no vomiting or diarrhea. Patient did have a white count of 6.78 creatinine is 1.6 local culture have been negative so far Objective - Vital Signs Vital signs: Vital Signs Temp 98.5 F 10/15/24 07:04 Pulse 75 10/15/24 08:05 Resp 16 10/15/24 08:05 BP 123/67 10/15/24 07:04 Pulse Ox 94 L 10/15/24 07:54 FiO2 Intake & Output 10/14/24 10/15/24 10/15/24 18:59 06:59 18:59 Intake Total 1000 1070 Balance 1000 1070 Intake: Oral 1000 1070 Other: Voiding Method Toilet Toilet # Voids 3 4 - Exam GENERAL DESCRIPTION: Middle-age female lying in bed in no distress RESPIRATORY SYSTEM: Unlabored breathing , decreased breath sounds at bases HEART: S1 S2 regular rate and rhythm , ABDOMEN: Soft , no tenderness EXTREMITIES: Left lower extremity pustule and leg laceration more marked today - Labs CBC & Chem 7: 10/15/24 06:51 10/15/24 06:51 Labs: Abnormal Lab Results - Last 24 Hours (Table) 10/15/24 10/15/24 Range/Units 06:51 06:51 RBC 3.90 L (4.10-5.20) X 10*6/uL MCV 99.2 H (80.0-97.0) FL MCHC 31.0 L (32.0-37.0) g/dL RDW 16.0 H (11.5-14.5) % Lymphocytes # 0.84 L (0.90-5.00) X 10*3/uL Creatinine 1.6 H (0.6-1.5) mg/dL Est GFR (CKD-EPI) 37 L (>=60) Microbiology - Last 24 Hours (Table) 10/13/24 16:33 Gram Stain - Final Leg - Left Wound Culture - Final Assessment and Plan (1) Leg ulcer, left Current Visit: Yes Status: Acute Code(s): L97.929 - NON-PRS CHRONIC ULC UNSP PRT OF L LOW LEG W UNSP SEVERITY SNOMED Code(s): 35940917 (2) Cellulitis of left leg Current Visit: Yes Status: Acute Code(s): L03.116 - CELLULITIS OF LEFT LOWER LIMB SNOMED Code(s): 69169304260575050 (3) Allergy to multiple antibiotics Current Visit: No Status: Acute Code(s): Z88.1 - ALLERGY STATUS TO OTHER ANTIBIOTIC AGENTS SNOMED Code(s): 958020797 Plan: 1patient presented hospital with left lower extremity laceration with associated swelling redness and pain concerning for wound infection and cellulitis likely from gram-positive skin maddie 2patient with elevated creatinine high risk of nephrotoxicity from vancomycin 3patient with multiple antibiotic ALLERGIES that would limit the number of antibiotic safe to use 4local cultures obtained which are so far negative 5patient did have worsening symptoms of pain will obtain a CT of the left lower extremity to admission no evidence of any abscess and get a vascular surgery evaluation for debridement and deep culture for now continue with the daptomycin Dictation was produced using [email or web address] dictation software. please excuse any grammatical, word or spelling errors. Time with Patient: Less than 30
--- NOTE | 2024-10-16 10:45 | P.CONS ---
History of Present Illness - Reason for Consult Consult date: 10/16/24 wound care - History of Present Illness Is a 59-year-old patient being seen on [address] for a nonhealing ulceration to the left posterior calf. Currently the patient has been utilizing absorptive silver to the site. Patient has a cluster of 2 ulcerations to the posterior cleft measuring approximately 2 x 1 x 0.2 and 1 x 1.2 x 0.2 cm significant amount of slough and nonviable tissue present no no granulation noted. No tunneling or undermining present. Wound edges are attached to the wound base. Patient's past medical history significant for [place] pulmonary embolism chronic kidney disease stage III. Denies diabetes lifelong non-smoker. Uses medical marijuana as needed. Review Of Systems: Constitutional: No fever, no chills, no night sweats. No weight change. No weakness, fatigue or lethargy. No daytime sleepiness. Integumentary:reports wounds, no lesions. No rash or pruritus. No unusual bruising. No change in hair or nails. Physical exam: General Appearance: Alert, cooperative, no distress, appears stated age. Skin: See HPI all other Skin color, texture, tugor normal, no rashes or lesions. Neurologic: Alert oriented x3 Assessment: 1. Nonhealing ulceration left posterior calf with fat layer exposed Plan: 1. Apply Santyl, saline moist gauze, dry gauze, rolled gauze and secure with paper tape. Wrap with Marcello wrap for compression. Elevate legs 3 times a day over the heart for 30 minutes. Avoid standing for long periods of time. Patient would benefit from advanced wound care and wound care setting. Be happy to see her upon discharge. Thank you for the consultation any questions please contact the wound care center DNP note has been reviewed and discussed with Dr. Atkinson and the impression and plan of care has been directed as dictated. 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 Patient states past history of C-Diff from 03/2023. last seizure last night twitching, usually with migraines or electrolyte imbalance. has had massive bleeding from xarelto Last Myocardial Infarction Date:: 08/30/2018 History of Any Multi-Drug Resistant Organisms: C-DIFF Year Discovered:: 2023 has had three times MDRO Source:: unk Past Surgical History: Back Surgery, Breast Surgery, Cardiac Valve Replacement, Section, Cholecystectomy, Heart Catheterization, Hysterectomy, Pacemaker Additional Past Surgical History / Comment(s): pacemaker d/t bradycardia/hy potension with last one place in 2013 in [place], [place], 3 lower back surgeries, bilateral breast reduction. 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. lamenectomy Past Anesthesia/Blood Transfusion Reactions: No Reported Reaction Additional Past Anesthesia/Blood Transfusion Reaction / Comm: blood transfusion no issues Type of Cardiac Device: Permanent Pacemaker, Unknown Device Placement Date:: 2012 Past Psychological History: Anxiety, PTSD Smoking Status: Never smoker Past Alcohol Use History: Rare Past Drug Use History: Marijuana - Past Family History Mother Additional Family Medical History / Comment(s): Mother at the age of 49 yrs after surgery for silicon breast implants with a leak that caused ARDS and DIC per pt (fibroid cysts) Father Family Medical History: Cancer, Hyperlipidemia, Hypertension Additional Family Medical History / Comment(s): Father is a colon cancer survivor. Medications and Allergies Home Medications Medication Instructions Recorded Confirmed Type Atorvastatin [Lipitor] 40 mg PO HS 09/24/21 10/13/24 History Sertraline [Zoloft] 200 mg PO DAILY 09/24/21 10/13/24 History Apixaban [Eliquis] 5 mg PO BID 05/29/22 10/13/24 History busPIRone HCl [Buspar] 5 mg PO BID 06/11/22 10/13/24 History Fludrocortisone [Florinef] 0.1 mg PO DAILY 09/20/22 10/13/24 History rOPINIRole HCL [Requip] 2 mg PO HS 04/28/23 10/13/24 History Budesonide/Glycopyr/Formoterol 2 puff INHALATION RT-BID 12/26/23 10/13/24 History [Breztri Aerosphere Inhaler] Gabapentin 600 mg PO TID 12/26/23 10/13/24 History Ondansetron [Zofran] 4 mg PO TID PRN 12/26/23 10/13/24 History HYDROcodone/APAP 7.5-325MG [[place] 1 tab PO TID 04/06/24 10/13/24 History 7.5-325] Pantoprazole [Protonix] 40 mg PO AC-BID 30 Days #60 tab 04/24/24 10/13/24 Rx Cyclobenzaprine [Flexeril] 5 mg PO TID PRN 06/18/24 10/13/24 History QUEtiapine [SEROquel] 25 mg PO HS PRN 06/18/24 10/13/24 History Bumetanide [BUMEX] 1 mg PO HS 06/27/24 10/13/24 History Metoprolol Succinate (ER) [Toprol 50 mg PO DAILY 06/27/24 10/13/24 History XL] Spironolactone 50 mg PO HS 06/27/24 10/13/24 History Hydrocortisone [Cortef] 10 mg PO BID 07/27/24 10/13/24 History Potassium Chloride ER [K-Dur 20] 20 meq PO BID tab 07/31/24 10/13/24 Rx Tiotropium 2.5 Mcg/Puff [Spiriva 2 puff INHALATION RT-DAILY each 07/31/24 10/13/24 Rx Respimat 2.5 Mcg] Bumetanide [BUMEX] 2 mg PO DAILY 09/20/24 10/13/24 History Colchicine 0.6 mg PO DAILY 09/20/24 10/13/24 History Diphenhydramine 50mg/Ml 50 mg IM Q6H PRN 09/20/24 10/13/24 History Fezolinetant [Veozah] 45 mg PO DAILY 09/20/24 10/13/24 History allopurinoL [Zyloprim] 300 mg PO DAILY 09/20/24 10/13/24 History Ipratropium-Albuterol Nebulize 3 ml INHALATION RT-TID 1 Days #90 09/23/24 10/13/24 Rx [Duoneb 0.5 mg-3 mg/3 ml Soln] each Mupirocin 2% Oint [Bactroban 2% 1 applic TOPICAL TID #30 gm 10/12/24 Rx Oint] Sulfamethox-Tmp 800-160Mg [Bactrim 1 each PO Q12HR #20 tab 10/12/24 Rx Ds] Diclofenac Sodium [Voltaren 1 applic TOPICAL QID PRN 10/13/24 10/13/24 History Arthritis Pain 1% Gel] Midodrine [ProAmatine] 5 mg PO AC-TID PRN 10/13/24 10/13/24 History Allergies Allergy/AdvReac Type Severity Reaction Status Date / Time Penicillins Allergy Severe Anaphylaxis Verified 10/13/24 13:44 vancomycin Allergy Severe Swelling Verified 10/13/24 13:44 in lips NSAIDS (Non-Steroidal Allergy Unknown pt has Verified 10/13/24 13:44 Anti-Inflamma clotting disorder and is to not take NSAIDS cefepime Allergy Swelling Verified 10/13/24 13:44 clindamycin Allergy Anaphylaxis Verified 10/13/24 13:44 Influenza Virus Vaccines Allergy Anaphylaxis Verified 10/13/24 13:44 latex Allergy Itching Verified 10/13/24 13:44 and swelling morphine Allergy Anaphylaxis Verified 10/13/24 13:44 albuterol [From Ventolin HFA] AdvReac Rapid Verified 10/13/24 13:44 Heart Rate galcanezumab-gnlm AdvReac Confusion, Verified 10/13/24 13:44 [From Emgality Pen] increased blood pressure metoclopramide [From Reglan] AdvReac "felt like Verified 10/13/24 13:44 I needed to jump out of my skin" prochlorperazine AdvReac severe Verified 10/13/24 13:44 [From Compazine] anxiety Physical Exam Vitals: Vital Signs Temp Pulse Pulse Resp BP Pulse Ox 10/16/24 07:05 97.6 F 69 18 114/71 94 L 10/16/24 01:36 98.5 F 73 18 99/56 98 10/15/24 19:47 98.4 F 71 18 105/62 97 10/15/24 18:31 74 16 10/15/24 18:21 72 16 10/15/24 11:41 99.5 F 72 18 109/70 97 Intake and Output 10/15/24 10/16/24 10/16/24 22:59 06:59 14:59 Intake Total 660 Balance 660 Intake: Intake, IV Titration 300 Amount Sodium Chloride 0.9% 1, 300 000 ml @ 75 mls/hr IV . [id number] [facility] Rx#:[id number] Oral 360 Other: Voiding Method Toilet # Voids 1 2 Results CBC & Chem 7: 10/15/24 06:51 10/15/24 06:51 Labs: Abnormal Lab Results - Last 24 Hours (Table) 10/15/24 10/16/24 Range/Units 16:07 02:38 Magnesium 2.4 H (1.6-2.3) mg/dL Urine Appearance Cloudy H (Clear) Urine Blood Large H (Negative) Ur Leukocyte Esterase Trace H (Negative) Urine RBC 55 H (0-5) /hpf Urine WBC 16 H (0-5) /hpf Urine Bacteria Rare H (None) /hpf Hyaline Casts 9 H (0-2) /lpf Urine Mucus Rare H (None) /hpf Microbiology - Last 24 Hours (Table) 10/13/24 16:33 Anaerobic Culture - Preliminary Leg - Left Assessment and Plan (1) Non-pressure chronic ulcer of left calf with fat layer exposed Current Visit: Yes Status: Acute Code(s): L97.222 - NON-PRESSURE CHRONIC ULCER OF LEFT CALF W FAT LAYER EXPOSED SNOMED Code(s): 28058749176916893
--- NOTE | 2024-10-16 11:44 | P.PN ---
Subjective Progress Note Date: 10/16/24 Principal diagnosis: Left lower extremity wound Patient is seen and examined today as a follow-up. She had a CT of the left lower extremity yesterday to evaluate for abscess. No abscess or fluid collection noted. Patient remains afebrile, no leukocytosis. She is on IV antibiotics. Objective - Vital Signs Vital signs: Vital Signs Temp 97.6 F 10/16/24 07:05 Pulse 69 10/16/24 07:05 Resp 18 10/16/24 07:05 BP 114/71 10/16/24 07:05 Pulse Ox 94 L 10/16/24 07:05 FiO2 Intake & Output 10/15/24 10/16/24 10/16/24 18:59 06:59 18:59 Intake Total 660 Balance 660 Intake: Intake, IV Titration 300 Amount Sodium Chloride 0.9% 1, 300 000 ml @ 75 mls/hr IV . [id number] [facility] Rx#:[id number] Oral 360 Other: Voiding Method Toilet Toilet # Voids 1 2 - Exam General appearance: The patient is alert, oriented, appears in no acute distress. HET: Head is normocephalic and atraumatic. Pupils are equal and reactive. Neck: Supple. Abdomen: Soft,nondistended. Extremities: Left lower extremity swelling. Palpable DP pulse. Left lower extremity medial aspect of calf with abrasion/wound to the subcutaneous tissue, no foul odor or drainage, slough tissue, some mild erythema surrounding. No abscess appreciated on this exam. Neurological: No focal deficits. Strength and sensation are grossly intact. - Labs CBC & Chem 7: 10/15/24 06:51 10/15/24 06:51 Labs: Abnormal Lab Results - Last 24 Hours (Table) 10/15/24 10/16/24 Range/Units 16:07 02:38 Magnesium 2.4 H (1.6-2.3) mg/dL Urine Appearance Cloudy H (Clear) Urine Blood Large H (Negative) Ur Leukocyte Esterase Trace H (Negative) Urine RBC 55 H (0-5) /hpf Urine WBC 16 H (0-5) /hpf Urine Bacteria Rare H (None) /hpf Hyaline Casts 9 H (0-2) /lpf Urine Mucus Rare H (None) /hpf Microbiology - Last 24 Hours (Table) 06/14/25 16:33 Anaerobic Culture - Preliminary Leg - Left Assessment and Plan Assessment: 1. Left lower extremity injury with wound 2. Left lower extremity cellulitis 3. Left lower extremity swelling Plan: 1. Continue with Aquacel silver change Tuesday 2. Hold Eliquis 3. Continue antibiotics per recommendations from infectious disease 4. Consult to wound care clinic, appreciate recommendations and outpatient follow-up 5. There is no abscess for incision and drainage, patient would likely benefit from surgical debridement, will try to set up for this Thank you for this consultation, we will continue to follow. The impression and plan of care has been dictated as directed. Dr. Vasquez I performed a history and examination of this patient, discussed the same with the dictator. I agree with the dictator's note ,documented as a scribe. Any additional findings or plans will be noted.
--- NOTE | 2024-10-16 13:29 | CA ---
Transthoracic Echo Report Name: Dania Meza Age: 59 Gender: F : 1965 Exam Date: 10/16/2024 11:21 Exam Location: [facility] Ht (in): 62 Wt (lb): 153 Ordering Physician: Franklin Hassan MD Attending/Referring Phys: Furnace Installer Helper Alicia Stock RDCS Procedure CPT: Indications: chf Cardiac Hx: TV Replacement, AV Replacement Technical Quality: Fair Contrast 1: Total Dose (mL): Contrast 2: Total Dose (mL): MEASUREMENTS (Male / Female) Normal Values 2D ECHO LV Diastolic Diameter PLAX 4.7 cm 4.2 - 5.9 / 3.9 - 5.3 cm LV Systolic Diameter PLAX 3.0 cm IVS Diastolic Thickness 1.0 cm 0.6 - 1.0 / 0.6 - 0.9 cm LVPW Diastolic Thickness 1.5 cm 0.6 - 1.0 / 0.6 - 0.9 cm LV Relative Wall Thickness 0.5 RV Internal Dim ED PLAX 2.6 cm LA Systolic Diameter LX 4.8 cm 3.0 - 4.0 / 2.7 - 3.8 cm LV Diastolic Volume MOD BP 61.3 cm??? 67 - 155 / 56 - 104 cm??? LV Systolic Volume MOD BP 28.8 cm??? 22 - 58 / 19 - 49 cm??? LV Ejection Fraction MOD BP 53.0 % >= 55 % LV Cardiac Index MOD BP 1658.7 cm???/min???m??? LV Diastolic Volume MOD 4C 69.6 cm??? LV Systolic Volume MOD 4C 30.5 cm??? LV Ejection Fraction MOD 4C 56.2 % LV Cardiac Index MOD 4C 1995.5 cm???/min???m??? LV Diastolic Length 4C 7.0 cm LV Systolic Length 4C 6.0 cm LV Diastolic Volume MOD 2C 53.9 cm??? LV Systolic Volume MOD 2C 28.1 cm??? LV Ejection Fraction MOD 2C 47.9 % LV Cardiac Index MOD 2C 1318.1 cm???/min???m??? LV Diastolic Length 2C 6.9 cm LV Systolic Length 2C 5.9 cm LA Volume 42.0 cm??? 18 - 58 / 22 - 52 cm??? LA Volume Index 23.8 cm???/m??? 16 - 28 cm???/m??? M-MODE Aortic Root Diameter MM 2.9 cm LA Systolic Diameter MM 4.6 cm LA Ao Ratio MM 1.6 AV Cusp Separation MM 1.5 cm DOPPLER TV Peak Velocity 158.6 cm/s FINDINGS Left Ventricle Left ventricular ejection fraction is estimated at 55-60 %. Moderately increased posterior wall thickness. Left ventricular cavity size normal. No obvious regional wall motion abnormalities. Right Ventricle Normal right ventricular size and function. Right Atrium Normal right atrial size. Left Atrium Severely increased left atrial diameter. Mitral Valve Aortic Valve Tricuspid Valve Bioprosthetic valve noted in the tricuspid position, TV Mean PG 4.78 mmHg. Mild intravalvular regurgitation of the prosthetic tricuspid valve. Pulmonic Valve Pericardium Aorta Normal size aortic root and proximal ascending aorta. CONCLUSIONS Left ventricular ejection fraction 55 to 60% Moderately increased left ventricular wall thickness Normally functioning bioprosthetic tricuspid valve with mean gradient 4 mmHg with a heart rate 73 bpm Previewed by: Dr. Billy Huerta DO (Electronically Signed) Final Date: 16 October 2024 13:28
--- NOTE | 2024-10-16 14:04 | P.PN ---
Subjective Progress Note Date: 10/16/24 Principal diagnosis: Reason for follow-up is left leg abscess cellulitis Patient is a 59-year-old female with multiple comorbidities presented to the hospital with left lower extremity laceration with associated swelling redness concerning for cellulitis in this patient who did have multiple antibiotic allergies prompting this consultation On today's evaluation that is 10/16/2024, Patient is afebrile this morning patient denies having any chest pain shortness of breath or cough, the patient is currently on room air, patient denies any abdominal pain, patient complaining of feeling slightly better today still complaining of pain to the left leg but no worsening has been complaining of some urinary symptoms of burning and bleeding. Patient did have a positive UA done last evening no CBC was done today Objective - Vital Signs Vital signs: Vital Signs Temp 98.2 F 10/16/24 11:57 Pulse 72 10/16/24 11:57 Resp 18 10/16/24 11:57 BP 113/71 10/16/24 11:57 Pulse Ox 97 10/16/24 11:57 FiO2 Intake & Output 10/15/24 10/16/24 10/16/24 18:59 06:59 18:59 Intake Total 660 Balance 660 Intake: Intake, IV Titration 300 Amount Sodium Chloride 0.9% 1, 300 000 ml @ 75 mls/hr IV . [id number] [facility] Rx#:[id number] Oral 360 Other: Voiding Method Toilet Toilet # Voids 1 2 - Exam GENERAL DESCRIPTION: Middle-age female lying in bed in no distress RESPIRATORY SYSTEM: Unlabored breathing , decreased breath sounds at bases HEART: S1 S2 regular rate and rhythm , ABDOMEN: Soft , no tenderness EXTREMITIES: Left lower extremity pustule and leg laceration more marked today - Labs CBC & Chem 7: 10/15/24 06:51 10/15/24 06:51 Labs: Abnormal Lab Results - Last 24 Hours (Table) 10/15/24 10/16/24 Range/Units 16:07 02:38 Magnesium 2.4 H (1.6-2.3) mg/dL Urine Appearance Cloudy H (Clear) Urine Blood Large H (Negative) Ur Leukocyte Esterase Trace H (Negative) Urine RBC 55 H (0-5) /hpf Urine WBC 16 H (0-5) /hpf Urine Bacteria Rare H (None) /hpf Hyaline Casts 9 H (0-2) /lpf Urine Mucus Rare H (None) /hpf Microbiology - Last 24 Hours (Table) 10/13/24 16:33 Anaerobic Culture - Preliminary Leg - Left Assessment and Plan (1) Leg ulcer, left Current Visit: Yes Status: Acute Code(s): L97.929 - NON-PRS CHRONIC ULC UNSP PRT OF L LOW LEG W UNSP SEVERITY SNOMED Code(s): 53220419 (2) Cellulitis of left leg Current Visit: Yes Status: Acute Code(s): L03.116 - CELLULITIS OF LEFT LOWER LIMB SNOMED Code(s): 71541244126447583 (3) Allergy to multiple antibiotics Current Visit: No Status: Acute Code(s): Z88.1 - ALLERGY STATUS TO OTHER ANTIBIOTIC AGENTS SNOMED Code(s): 110944495 Plan: 1patient presented hospital with left lower extremity laceration with associated swelling redness and pain concerning for wound infection and cellulitis likely from gram-positive skin maddie 2patient with elevated creatinine high risk of nephrotoxicity from vancomycin 3patient with multiple antibiotic ALLERGIES that would limit the number of antibiotic safe to use 4local cultures obtained which are so far negative, patient did have CT of the left lower extremity did not mention any abscess vascular surgery has seen the patient planning for debridement will not continue with the daptomycin while waiting for the culture to finalize patient did have mildly positive UA mostly with the blood we will wait for the culture to finalize, question concern answered Dictation was produced using [employer] dictation software. please excuse any grammatical, word or spelling errors. Time with Patient: Less than 30
[2024-10-16] MEDS: COLLAGENASE 250 UNIT/GM OINTMENT 30 GM TUBE TOPICAL SCH (14:06)
--- NOTE | 2024-10-16 14:44 | P.PN ---
Subjective HISTORY OF PRESENT ILLNESS: This is 59-year-old female patient of Dr. Hanson with past medical history of dyslipidemia, transcatheter tricuspid valve replacement performed in [facility] in 06/2013, followed by a valve in valve replacement done in [place]. Also has past medical history of pacemaker implantation in 2013 done in [place] with atrial lead only. 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 Patient initially presented with lower extremity wound which has been getting worse and some erythema and pain. Patient states she was diagnosed again with pyoderma gangrenosum and also has these lesions on her bilateral hands which she attributes to lupus. She states that normally during periods of infection she will have increasing edema and increasing shortness of breath and more prone to the heart failure. She has CKD with creatinine in the 1.3-1.6 range. She states she has been more short of breath, increasing dyspnea with exertion and increasing lower extremity edema. She was placed on IV Bumex with some improvement in urine output. Creatinine had gone from 1.5-1.4. Denies any consistent chest pain however has some pressure. She is concerned regarding possible valve or pacemaker infection. Currently feels somewhat better than when she came in. -Echocardiogram performed 12/28/2023 reveals EF 55 to 60%, mildly increased left ventricular wall thickness. No mitral regurgitation. Bioprosthetic aortic valve without significant gradients and no aortic regurgitation. Normally functioning bioprosthetic tricuspid valve with mean gradient of 3. -PORFIRIO performed 11/03/2022 revealed normal EF, mild TR, bioprosthetic tricuspid valve with normal appearance and no evidence of vegetation. -Dobutamine stress echo performed 05/31/2022 revealed normal EF, normal study, seizure at peak. 10/16/2024 Patient examined this morning at the bedside. Patient currently denies chest pain or pressure. She denies shortness of breath. She continues to report pain in her leg. She remains on IV Bumex. Lab work from today is pending. PHYSICAL EXAM: VITAL SIGNS: Reviewed. GENERAL: Well-developed in no acute distress. NECK: Supple. No JVD or thyromegaly LUNGS: Respirations even and unlabored. Lungs essentially clear to auscultation bilaterally. HEART: Regular rate and rhythm. S1 and S2 heard. Systolic murmur noted. EXTREMITIES: Normal range of motion. No clubbing or cyanosis. Peripheral pulses intact. 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 Signing provider agrees with the documented findings, assessment, and plan of care documented by EMBOSSING PRESS OPERATOR as a scribe. Objective - Vital Signs Vital signs: Vital Signs Temp 97.6 F 10/16/24 07:05 Pulse 69 10/16/24 07:05 Resp 18 10/16/24 07:05 BP 114/71 10/16/24 07:05 Pulse Ox 94 L 10/16/24 07:05 FiO2 Intake & Output 10/15/24 10/16/24 10/16/24 18:59 06:59 18:59 Intake Total 660 Balance 660 Intake: Intake, IV Titration 300 Amount Sodium Chloride 0.9% 1, 300 000 ml @ 75 mls/hr IV . [id number] [facility] Rx#:[id number] Oral 360 Other: Voiding Method Toilet # Voids 1 2 - Labs CBC & Chem 7: 10/15/24 06:51 10/15/24 06:51 Labs: Abnormal Lab Results - Last 24 Hours (Table) 10/15/24 10/15/24 10/15/24 Range/Units 06:51 06:51 16:07 RBC 3.90 L (4.10-5.20) X 10*6/uL MCV 99.2 H (80.0-97.0) FL MCHC 31.0 L (32.0-37.0) g/dL RDW 16.0 H (11.5-14.5) % Lymphocytes # 0.84 L (0.90-5.00) X 10*3/uL Creatinine 1.6 H (0.6-1.5) mg/dL Est GFR (CKD-EPI) 37 L (>=60) Magnesium (1.6-2.3) mg/dL Urine Appearance Cloudy H (Clear) Urine Blood Large H (Negative) Ur Leukocyte Esterase Trace H (Negative) Urine RBC 55 H (0-5) /hpf Urine WBC 16 H (0-5) /hpf Urine Bacteria Rare H (None) /hpf Hyaline Casts 9 H (0-2) /lpf Urine Mucus Rare H (None) /hpf 10/16/24 Range/Units 02:38 RBC (4.10-5.20) X 10*6/uL MCV (80.0-97.0) FL MCHC (32.0-37.0) g/dL RDW (11.5-14.5) % Lymphocytes # (0.90-5.00) X 10*3/uL Creatinine (0.6-1.5) mg/dL Est GFR (CKD-EPI) (>=60) Magnesium 2.4 H (1.6-2.3) mg/dL Urine Appearance (Clear) Urine Blood (Negative) Ur Leukocyte Esterase (Negative) Urine RBC (0-5) /hpf Urine WBC (0-5) /hpf Urine Bacteria (None) /hpf Hyaline Casts (0-2) /lpf Urine Mucus (None) /hpf Microbiology - Last 24 Hours (Table) 10/13/24 16:33 Anaerobic Culture - Preliminary Leg - Left
[2024-10-16 15:14] LABS: African American GFR (CKD) 50 (>60 ml/min/1.73 sqM); Anion Gap 10 mmol/L; Blood Urea Nitrogen 22 mg/dL (7-17); Calcium 9.7 mg/dL (8.4-10.2); Carbon Dioxide 21 mmol/L (22-30); Chloride 105 mmol/L (98-107); Glucose 74 mg/dL (74-99); Non-African American GFR(CKD) 43 (>60 ml/min/1.73 sqM); Sodium 136 mmol/L (137-145)
[2024-10-16 15:27] LABS: Potassium 6.2 mmol/L (3.5-5.1)
[2024-10-16] MEDS: LORazepam 1 MG/0.5 ML VIAL IV STA (16:27)
--- NOTE | 2024-10-16 17:46 | P.PN ---
Progress Note - Text Progress Note Date: 10/16/24 I went to evaluate the patient and she was in the agreement of see me. Patient states she does have known history of pseudoseizures and she states that Topamax and this the mind does not help. She states that her pseudoseizures frequencies are improving compared to the past. She does not want to be on any medication at this time. She states she follows up with the outpatient neurologist over in [place]. She denies of any new neurological issues. Physical exam: Sitting up in bed and not in acute distress. Patient is awake alert oriented to self place and time. Is following simple commands. No aphasia. No facial weakness. No dysarthria Impression: Nonepileptic seizures History of Migraine Plan: I notified the patient that I recommend patient to follow-up with outpatient local neurologist and consider a prolonged EEG as an outpatient to make sure none of her episodes are truly epileptic. She does not want to be on any antiseizure medication. There is no additional neurological workup. Will sign off. Please reconsult if needed.
[2024-10-16] MEDS: SODIUM ZIRCONIUM CYCLOSILICATE 10 GM PACKET PO ONE (18:18)
[2024-10-16] MEDS: IPRATROPIUM 0.5 MG/2.5 ML NEBU INHALATION SCH (18:45)
[2024-10-17 06:27] LABS: Basophils # (A) 0.01 10*3/uL (0.00-0.10); Basophils % (A) 0.1 %; Eosinophils # (A) 0.03 10*3/uL (0.04-0.35); Eosinophils % (A) 0.4 %; HCT 36.5 % (37.2-46.3); HGB 11.7 g/dL (12.0-15.0); Lymphocytes # (A) 0.93 10*3/uL (0.90-5.00); Lymphocytes % (A) 11.6 %; MCH 31.8 pg (27.0-32.0); MCHC 32.1 g/dL (32.0-37.0); MCV 99.2 fL (80.0-97.0); Mean Platelet Volume 10.9 fL (9.5-12.2); Monocytes # (A) 0.48 10*3/uL (0.20-1.00); Neutrophils # (A) 6.49 10*3/uL (1.80-7.70); Neutrophils % (A) 81.3 %; Platelet Count 214 10*3/uL (140-440); RBC 3.68 10*6/uL (4.10-5.20); RDW 16.5 % (11.5-14.5); WBC 7.99 10*3/uL (4.50-10.00)
[2024-10-17 06:46] LABS: ALT 23 U/L (4-34); AST 35 U/L (14-36); African American GFR (CKD) 45 (>60 ml/min/1.73 sqM); Albumin 4.2 g/dL (3.5-5.0); Albumin/Globulin Ratio 1.7; Alkaline Phosphatase 81 U/L (38-126); Blood Urea Nitrogen 20 mg/dL (7-17); Calcium 9.7 mg/dL (8.4-10.2); Chloride 108 mmol/L (98-107); Globulin 2.5 g/dL; Glucose 111 mg/dL (74-99); Non-African American GFR(CKD) 39 (>60 ml/min/1.73 sqM); Sodium 142 mmol/L (137-145); Total Bilirubin 0.6 mg/dL (0.2-1.3); Total Protein 6.7 g/dL (6.3-8.2)
[2024-10-17 06:53] LABS: Potassium 5.2 mmol/L (3.5-5.1)
--- NOTE | 2024-10-17 11:07 | P.PN ---
Subjective HISTORY OF PRESENT ILLNESS: This is 59-year-old female patient of Dr. Hanson with past medical history of dyslipidemia, transcatheter tricuspid valve replacement performed in [facility] in 06/2013, followed by a valve in valve replacement done in [place]. Also has past medical history of pacemaker implantation in 2013 done in [place] with atrial lead only. 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 Patient initially presented with lower extremity wound which has been getting worse and some erythema and pain. Patient states she was diagnosed again with pyoderma gangrenosum and also has these lesions on her bilateral hands which she attributes to lupus. She states that normally during periods of infection she will have increasing edema and increasing shortness of breath and more prone to the heart failure. She has CKD with creatinine in the 1.3-1.6 range. She states she has been more short of breath, increasing dyspnea with exertion and increasing lower extremity edema. She was placed on IV Bumex with some improvement in urine output. Creatinine had gone from 1.5-1.4. Denies any consistent chest pain however has some pressure. She is concerned regarding possible valve or pacemaker infection. Currently feels somewhat better than when she came in. -Echocardiogram performed 12/28/2023 reveals EF 55 to 60%, mildly increased left ventricular wall thickness. No mitral regurgitation. Bioprosthetic aortic valve without significant gradients and no aortic regurgitation. Normally functioning bioprosthetic tricuspid valve with mean gradient of 3. -PORFIRIO performed 11/03/2022 revealed normal EF, mild TR, bioprosthetic tricuspid valve with normal appearance and no evidence of vegetation. -Dobutamine stress echo performed 05/31/2022 revealed normal EF, normal study, seizure at peak. 10/16/2024 Patient examined this morning at the bedside. Patient currently denies chest pain or pressure. She denies shortness of breath. She continues to report pain in her leg. She remains on IV Bumex. Lab work from today is pending. 10/17/2024 Patient examined this morning at bedside. Patient currently denies chest pain or pressure. She denies shortness of breath. She remains on IV Bumex. BUN 20. Creatinine 1.45. PHYSICAL EXAM: VITAL SIGNS: Reviewed. GENERAL: Well-developed in no acute distress. NECK: Supple. No JVD or thyromegaly LUNGS: Respirations even and unlabored. Lungs essentially clear to auscultation bilaterally. HEART: Regular rate and rhythm. S1 and S2 heard. Systolic murmur noted. EXTREMITIES: Normal range of motion. No clubbing or cyanosis. Peripheral pulses intact. 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 Begin oral Bumex 2 mg BID Daily weights, accurate intake and output, monitoring of kidney function Patient is currently stable from a cardiac standpoint Further recommendations pending patient course Nurse practitioner note has been reviewed by physician. Signing provider agrees with the documented findings, assessment, and plan of care documented by PROTECTOR PLATE ATTACHER as a scribe. Objective - Vital Signs Vital signs: Vital Signs Temp 98.6 F 10/17/24 07:14 Pulse 79 10/17/24 07:14 Resp 20 10/17/24 07:14 BP 126/74 10/17/24 07:14 Pulse Ox 92 L 10/17/24 07:14 FiO2 Intake & Output 10/16/24 10/17/24 10/17/24 18:59 06:59 18:59 Intake Total 1620 540 Balance 1620 540 Intake: Oral 1620 540 Other: Voiding Method Toilet Toilet Toilet # Voids 3 1 - Labs CBC & Chem 7: 10/17/24 05:45 10/17/24 05:45 Labs: Abnormal Lab Results - Last 24 Hours (Table) 10/16/24 10/17/24 10/17/24 Range/Units 14:20 05:45 05:45 RBC 3.68 L (4.10-5.20) 10*6/uL Hgb 11.7 L (12.0-15.0) g/dL Hct 36.5 L (37.2-46.3) % MCV 99.2 H (80.0-97.0) fL RDW 16.5 H (11.5-14.5) % Immature Gran # 0.05 H (0.00-0.04) 10*3/uL Eosinophils # 0.03 L (0.04-0.35) 10*3/uL Sodium 136 L (137-145) mmol/L Potassium 6.2 H* 5.2 H (3.5-5.1) mmol/L Chloride 108 H (98-107) mmol/L Carbon Dioxide 21 L (22-30) mmol/L BUN 22 H 20 H (7-17) mg/dL Creatinine 1.33 H 1.45 H (0.52-1.04) mg/dL Glucose 111 H (74-99) mg/dL Microbiology - Last 24 Hours (Table) 10/16/24 01:50 Urine Culture - Preliminary Urine,Clean Catch 10/15/24 10:51 Blood Culture - Preliminary Blood
[2024-10-17] MEDS ORDERED: BUMETANIDE 0.25 MG/ML 10 ML VIAL IV SCH (11:15)
[2024-10-17] MEDS: MIDODRINE 5 MG TAB PO SCH (12:20)
--- NOTE | 2024-10-17 13:18 | PN ---
PROGRESS NOTE DATE OF SERVICE: 10/16/2024 SUBJECTIVE: White female who is going to get a biopsy of her left leg, incision and drainage surgical procedure on to incise and drain the abscess on the left leg. Cultures still pending. Remains on daptomycin per Dr. Luo. Her other symptomatology, her anxiety is less. She is breathing better. PHYSICAL EXAMINATION: CARDIOVASCULAR: S1, S2. LUNGS: Transmitted breath sounds. GI: Soft. HEMATOLOGY: Negative Homans. PSYCH: Fair and mood affect. EXTREMITIES: Left leg with wounds, dermal wound with yellow eschar about 2 cm. ASSESSMENT: Leg cellulitis/early abscess on IV daptomycin. Wait for incision and drainage. Continue with home medications for her congestive heart failure, chronic obstructive pulmonary disease, antiphospholipid syndrome, history of pulmonary embolism prognosis is guarded. Continue current treatment. MMODL / IJN: [id number] /
[2024-10-17] MEDS: BUMETANIDE 1 MG TAB PO SCH (17:08)
[2024-10-18] MEDS: NYSTATIN 100,000 UNIT/ML SUSP 500,000 UNIT/5 ML CUP PO SCH (00:10)
--- NOTE | 2024-10-18 04:02 | CT ---
EXAM: CT Neck Without Intravenous Contrast CLINICAL HISTORY: ITS.REASON CT Reason: Left neck abnormality TECHNIQUE: Axial computed tomography images of the neck without intravenous contrast. CTDI is 7.7 mGy and DLP is 236.8 mGy-cm. This CT exam was performed using one or more of the following dose reduction techniques: automated exposure control, adjustment of the mA and/or kV according to patient size, and/or use of iterative reconstruction technique. COMPARISON: No relevant prior studies available. FINDINGS: Tonsils: No tonsillar enlargement. Larynx: Epiglottis is unremarkable. Airway: Aerodigestive tract is patent. Bones: No acute fracture. Upper lungs: Clear. Patulous esophagus. IMPRESSION: No acute findings. Patulous esophagus
--- NOTE | 2024-10-18 05:00 | PN ---
PROGRESS NOTE A 59-year-old . She is complaining of swelling of the neck. PHYSICAL EXAMINATION: CARDIOVASCULAR: S1, S2. LUNGS: Clear. GI: Soft. HEMATOLOGY: Negative Homans. PSYCH: Fair and mood affect. Wounds, left inner thigh, irrigation and debridement tomorrow for possible wound infection. Culture and sensitivity have been ordered. This patient will continue . She has undergone CT of the neck due to swelling of the neck and antibiotics. Awaiting for final cultures. Status post debridement tomorrow with . PROGNOSIS: Guarded. Please see further orders. MMODL / IJN: [id number] /
[2024-10-18 08:40] LABS: BUN/Creat Ratio 10.94 Ratio (12.00-20.00); Blood Urea Nitrogen 17.5 mg/dL (9.0-27.0); Calcium 8.7 mg/dL (8.7-10.3); Carbon Dioxide 25.1 mmol/L (21.6-31.8); Chloride 105 mmol/L (96-109); Glucose 125 mg/dL (70-110); Potassium 4.1 mmol/L (3.5-5.5); Sodium 143 mmol/L (135-145)
--- NOTE | 2024-10-18 10:40 | P.PN ---
Subjective HISTORY OF PRESENT ILLNESS: This is 59-year-old female patient of Dr. Hanson with past medical history of dyslipidemia, transcatheter tricuspid valve replacement performed in [facility] in 06/2013, followed by a valve in valve replacement done in [place]. Also has past medical history of pacemaker implantation in 2013 done in [place] with atrial lead only. 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 Patient initially presented with lower extremity wound which has been getting worse and some erythema and pain. Patient states she was diagnosed again with pyoderma gangrenosum and also has these lesions on her bilateral hands which she attributes to lupus. She states that normally during periods of infection she will have increasing edema and increasing shortness of breath and more prone to the heart failure. She has CKD with creatinine in the 1.3-1.6 range. She states she has been more short of breath, increasing dyspnea with exertion and increasing lower extremity edema. She was placed on IV Bumex with some improvement in urine output. Creatinine had gone from 1.5-1.4. Denies any consistent chest pain however has some pressure. She is concerned regarding possible valve or pacemaker infection. Currently feels somewhat better than when she came in. -Echocardiogram performed 12/28/2023 reveals EF 55 to 60%, mildly increased left ventricular wall thickness. No mitral regurgitation. Bioprosthetic aortic valve without significant gradients and no aortic regurgitation. Normally functioning bioprosthetic tricuspid valve with mean gradient of 3. -PORFIRIO performed 11/03/2022 revealed normal EF, mild TR, bioprosthetic tricuspid valve with normal appearance and no evidence of vegetation. -Dobutamine stress echo performed 05/31/2022 revealed normal EF, normal study, seizure at peak. 10/16/2024 Patient examined this morning at the bedside. Patient currently denies chest pain or pressure. She denies shortness of breath. She continues to report pain in her leg. She remains on IV Bumex. Lab work from today is pending. 10/17/2024 Patient examined this morning at bedside. Patient currently denies chest pain or pressure. She denies shortness of breath. She remains on IV Bumex. BUN 20. Creatinine 1.45. 10/18/2024 Patient examined this morning at bedside. She currently denies chest pain or pressure. She reports mild shortness of breath. She is scheduled to undergo debridement of her left lower extremity today with vascular surgery. Her Eliquis remains on hold. Patient has been transition to oral diuretics. Creatinine today 1.6, up from 1.45 yesterday. PHYSICAL EXAM: VITAL SIGNS: Reviewed. GENERAL: Well-developed in no acute distress. NECK: Supple. No JVD or thyromegaly LUNGS: Respirations even and unlabored. Lungs essentially clear to auscultation bilaterally. HEART: Regular rate and rhythm. S1 and S2 heard. Systolic murmur noted. EXTREMITIES: Normal range of motion. No clubbing or cyanosis. Peripheral pulses intact. 2+ bilateral lower extremity edema ASSESSMENT: Acute diastolic heart failure Lower extremity wound/infection/pyoderma gangrenosum History of bradycardia History of permanent pacemaker in 2013 Transcatheter tricuspid valve replacement in 2013 followed by valve in valve replacement History of PE on Eliquis Seizure disorder Single kidney due to right renal artery embolism Chronic kidney disease stage III History of pyoderma granulosum Antiphospholipid antibody syndrome PLAN: Continue current cardiac medications Continue oral diuretics with Bumex 2 mg BID Daily weights, accurate intake and output, monitoring of kidney function Patient is scheduled for left lower extremity debridement today with vascular surgery. Resume Eliquis post procedure when cleared by vascular surgery. Patient is currently stable from a cardiac standpoint Further recommendations pending patient course Nurse practitioner note has been reviewed by physician. Signing provider agrees with the documented findings, assessment, and plan of care documented by [employer] as a scribe. Objective - Vital Signs Vital signs: Vital Signs Temp 97.7 F 10/18/24 07:34 Pulse 71 10/18/24 08:00 Resp 16 10/18/24 08:00 BP 139/83 10/18/24 07:34 Pulse Ox 95 10/18/24 07:34 FiO2 Intake & Output 10/17/24 10/18/24 10/18/24 18:59 06:59 18:59 Intake Total 540 Balance 540 Intake: Oral 540 Other: Voiding Method Toilet Toilet Toilet # Voids 2 1 - Labs CBC & Chem 7: 10/17/24 05:45 10/18/24 05:59 Labs: Abnormal Lab Results - Last 24 Hours (Table) 10/18/24 Range/Units 05:59 Anion Gap 12.90 H (4.00-12.00) mmol/L Creatinine 1.6 H (0.6-1.5) mg/dL Est GFR (CKD-EPI) 37 L (>=60) BUN/Creatinine Ratio 10.94 L (12.00-20.00) Ratio Glucose 125 H (70-110) mg/dL Microbiology - Last 24 Hours (Table) 10/13/24 16:33 Anaerobic Culture - Final Leg - Left 10/15/24 10:51 Blood Culture - Preliminary Blood 10/16/24 01:50 Urine Culture - Preliminary Urine,Clean Catch
--- NOTE | 2024-10-18 12:55 | P.PN ---
Subjective Progress Note Date: 10/17/24 Principal diagnosis: Reason for follow-up is left leg abscess cellulitis Patient is a 59-year-old female with multiple comorbidities presented to the hospital with left lower extremity laceration with associated swelling redness concerning for cellulitis in this patient who did have multiple antibiotic allergies prompting this consultation On today's evaluation that is 10/17/2024,the patient denies any fever or any chills, patient is breathing comfortably on room air, the patient denies chest pain shortness of breath and no significant cough, patient denies abdominal pain, no nausea vomiting or diarrhea. Patient still complaining of pain to the left lower extremity and also complaining of sores in the mouth wants nystatin swish and swallow. Patient white count is 7.99, creatinine is 1.45 Objective - Vital Signs Vital signs: Vital Signs Temp 99.1 F 10/17/24 12:10 Pulse 67 10/17/24 12:10 Resp 20 10/17/24 12:10 BP 111/66 10/17/24 12:10 Pulse Ox 91 L 10/17/24 12:10 FiO2 Intake & Output 10/16/24 10/17/24 10/17/24 18:59 06:59 18:59 Intake Total 1620 540 Balance 1620 540 Intake: Oral 1620 540 Other: Voiding Method Toilet Toilet Toilet # Voids 3 1 - Exam GENERAL DESCRIPTION: Middle-age female lying in bed in no distress RESPIRATORY SYSTEM: Unlabored breathing , decreased breath sounds at bases HEART: S1 S2 regular rate and rhythm , ABDOMEN: Soft , no tenderness EXTREMITIES: Left lower extremity pustule and leg laceration more marked today - Labs CBC & Chem 7: 10/17/24 05:45 10/18/24 05:59 Labs: Abnormal Lab Results - Last 24 Hours (Table) 10/17/24 10/17/24 Range/Units 05:45 05:45 RBC 3.68 L (4.10-5.20) 10*6/uL Hgb 11.7 L (12.0-15.0) g/dL Hct 36.5 L (37.2-46.3) % MCV 99.2 H (80.0-97.0) fL RDW 16.5 H (11.5-14.5) % Immature Gran # 0.05 H (0.00-0.04) 10*3/uL Eosinophils # 0.03 L (0.04-0.35) 10*3/uL Potassium 5.2 H (3.5-5.1) mmol/L Chloride 108 H (98-107) mmol/L BUN 20 H (7-17) mg/dL Creatinine 1.45 H (0.52-1.04) mg/dL Glucose 111 H (74-99) mg/dL Microbiology - Last 24 Hours (Table) 10/16/24 01:50 Urine Culture - Preliminary Urine,Clean Catch 10/15/24 10:51 Blood Culture - Preliminary Blood Assessment and Plan (1) Leg ulcer, left Current Visit: Yes Status: Acute Code(s): L97.929 - NON-PRS CHRONIC ULC UNSP PRT OF L LOW LEG W UNSP SEVERITY SNOMED Code(s): 05510399 (2) Cellulitis of left leg Current Visit: Yes Status: Acute Code(s): L03.116 - CELLULITIS OF LEFT LOWER LIMB SNOMED Code(s): 38028849895192477 (3) Allergy to multiple antibiotics Current Visit: No Status: Acute Code(s): Z88.1 - ALLERGY STATUS TO OTHER ANTIBIOTIC AGENTS SNOMED Code(s): 004028576 (4) Thrush Current Visit: Yes Status: Acute Code(s): B37.0 - CANDIDAL STOMATITIS SNOMED Code(s): 15398329 Plan: 1patient presented hospital with left lower extremity laceration with associated swelling redness and pain concerning for wound infection and cellulitis likely from gram-positive skin maddie 2patient with elevated creatinine high risk of nephrotoxicity from vancomycin 3patient with multiple antibiotic ALLERGIES that would limit the number of antibiotic safe to use 4local cultures obtained which are so far negative, patient did have CT of the left lower extremity did not mention any abscess vascular surgery has seen the patient planning for debridement tomorrow morning. 5complaining of oral soreness with component of thrush we will add nystatin sw monica and swallow Dictation was produced using [employer] dictation software. please excuse any grammatical, word or spelling errors.
--- NOTE | 2024-10-18 12:57 | P.PN ---
Subjective Progress Note Date: 10/18/24 Principal diagnosis: Reason for follow-up is left leg abscess cellulitis Patient is a 59-year-old female with multiple comorbidities presented to the hospital with left lower extremity laceration with associated swelling redness concerning for cellulitis in this patient who did have multiple antibiotic allergies prompting this consultation On today's evaluation that is 10/18/2024,the patient remains to be afebrile, patient is on room air not requiring supplemental oxygen and denies any shortness of breath no chest pain or cough.Patient denies having any nausea or vomiting, no abdominal pain and no diarrhea pain to the left lower extremity slightly better currently waiting for debridement surgery this afternoon. Patient did have a creatinine of 1.6 no CBC was done today Objective - Vital Signs Vital signs: Vital Signs Temp 97.7 F 10/18/24 07:34 Pulse 73 10/18/24 12:14 Resp 16 10/18/24 12:14 BP 120/75 10/18/24 12:14 Pulse Ox 98 10/18/24 12:14 FiO2 Intake & Output 10/17/24 10/18/24 10/18/24 18:59 06:59 18:59 Intake Total 540 Balance 540 Intake: Oral 540 Other: Voiding Method Toilet Toilet Toilet # Voids 2 1 - Exam GENERAL DESCRIPTION: Middle-age female lying in bed in no distress RESPIRATORY SYSTEM: Unlabored breathing , decreased breath sounds at bases HEART: S1 S2 regular rate and rhythm , ABDOMEN: Soft , no tenderness EXTREMITIES: Left lower extremity pustule and leg laceration more marked today - Labs CBC & Chem 7: 10/17/24 05:45 10/18/24 05:59 Labs: Abnormal Lab Results - Last 24 Hours (Table) 10/18/24 Range/Units 05:59 Anion Gap 12.90 H (4.00-12.00) mmol/L Creatinine 1.6 H (0.6-1.5) mg/dL Est GFR (CKD-EPI) 37 L (>=60) BUN/Creatinine Ratio 10.94 L (12.00-20.00) Ratio Glucose 125 H (70-110) mg/dL Microbiology - Last 24 Hours (Table) 10/13/24 16:33 Anaerobic Culture - Final Leg - Left 10/15/24 10:51 Blood Culture - Preliminary Blood Assessment and Plan (1) Leg ulcer, left Current Visit: Yes Status: Acute Code(s): L97.929 - NON-PRS CHRONIC ULC UNSP PRT OF L LOW LEG W UNSP SEVERITY SNOMED Code(s): 82210852 (2) Cellulitis of left leg Current Visit: Yes Status: Acute Code(s): L03.116 - CELLULITIS OF LEFT LOWER LIMB SNOMED Code(s): 77475309072267929 (3) Allergy to multiple antibiotics Current Visit: No Status: Acute Code(s): Z88.1 - ALLERGY STATUS TO OTHER ANTIBIOTIC AGENTS SNOMED Code(s): 074455424 (4) Thrush Current Visit: Yes Status: Acute Code(s): B37.0 - CANDIDAL STOMATITIS SNOMED Code(s): 33082874 Plan: 1patient presented hospital with left lower extremity laceration with associated swelling redness and pain concerning for wound infection and cellulitis likely from gram-positive skin maddie 2patient with elevated creatinine high risk of nephrotoxicity from vancomycin 3patient with multiple antibiotic ALLERGIES that would limit the number of antibiotic safe to use 4local cultures obtained which are so far negative, patient did have CT of the left lower extremity did not mention any abscess vascular surgery has seen the patient planning for debridement this will hopefully deep culture will be done and those will be followed, for now continue with the daptomycin 5patient with component of thrush continue with nystatin swish and swallow Dictation was produced using [employer] dictation software. please excuse any grammatical, word or spelling errors. Time with Patient: Less than 30
[2024-10-18] MEDS: IV FLUID CONTINUATION 1,000 ML IV ONE (14:25)
[2024-10-18] MEDS: SODIUM CHLORIDE 0.9% 500 ML 500 ML IV SCH (15:45)
[2024-10-18] MEDS ORDERED: fentaNYL (PF) 50 MCG/ML 2 ML AMP ONE (17:10)
[2024-10-18] MEDS ORDERED: MIDAZOLAM 2 MG/2 ML VIAL ONE (17:10)
[2024-10-18] MEDS ORDERED: PROPOFOL 10 MG/ML 20 ML VIAL IV ONE (17:10)
--- NOTE | 2024-10-18 18:08 | P.OP ---
Date of Procedure: 10/18/24 Description of Procedure: Preoperative diagnosis: Left lower extremity wound, edema Postoperative diagnosis: Same Procedure: [] Sharp excisional debridement left lower extremity wound 9 x 3 x 2.5 to subcutaneous tissue Surgeon: Keri Gomez D.O. EBL: [20 cc] IV fluids: [See records] Urine output: [] Not measured Drains: [] None Complications: [None immediately apparent] Condition: [Stable] Operative indication and findings: [Patient is a 59-year-old female with a new wound of her left lower extremity that she sustained from hitting a table.She has had increasing swelling and some redness to the area with concerns of possible cellulitis. Due to this she was hospitalized and subsequently recommended to undergo debridement of her wound. Risks and benefits were discussed including but not limited to bleeding, infection, injury to the area and poor wound healing with need for further surgical interventions. She seemed understood and was willing to proceed. Procedure in detail: Patient brought to the operative suite left lower extremity was prepped and draped in usual sterile timeout performed, the area of the wound was initially debrided sharply with a scalpel through the overlying eschar tissue it was carried down through the subcutaneous tissue and there was significant necrotic tissue identified more deep. This tunneled more medially to an area where there was also a wound. Initially it was thought there were 2 separate wounds therefore 2 separate cultures were obtained however it appeared to connect with the area of necrotic tissue therefore the wound was converted into 1 wound. Once all necrotic and nonviable appearing tissue was resected, a curette was used to freshen the area. There is then copiously irrigated. Hemostasis was controlled with electrocautery. A wet-to-dry dressing and compression wrap was placed. The patient tolerated the procedure well and was transferred to recovery] []
[2024-10-18] MEDS: HYDROmorphone 0.5 MG/0.5 ML SYRINGE IVP PRN (18:18)
[2024-10-18] MEDS: diphenhydrAMINE 50 MG/ML 1 ML VIAL IVP STA (19:13)
[2024-10-18] MEDS: ERTAPENEM 1 GM in SODIUM CHLORIDE 0.9% 50 ML IVPB SCH (21:26)
--- NOTE | 2024-10-19 01:12 | PN ---
PROGRESS NOTE SUBJECTIVE: A 59-year-old white female had wound debridement today by Dr. Gomez. Cultures are pending. PHYSICAL EXAMINATION: CARDIOVASCULAR: S1, S2. LUNGS: Clear. GI: Soft. HEMATOLOGY: Negative Homans. ASSESSMENT AND PLAN: Debridement of the wounds. Necrotic tissue was removed, await for cultures. Continue antibiotics per Dr. Luo. Prognosis is guarded. Ambulate as tolerated. Please see further orders. MMODL / IJN: [id number] /
[2024-10-19 07:44] LABS: ALT 19 U/L (4-34); AST 26 U/L (14-36); African American GFR (CKD) 44 (>60 ml/min/1.73 sqM); Albumin 3.9 g/dL (3.5-5.0); Albumin/Globulin Ratio 1.8; Alkaline Phosphatase 67 U/L (38-126); Anion Gap 7 mmol/L; Blood Urea Nitrogen 22 mg/dL (7-17); Calcium 9.1 mg/dL (8.4-10.2); Carbon Dioxide 30 mmol/L (22-30); Chloride 103 mmol/L (98-107); Globulin 2.2 g/dL; Glucose 138 mg/dL (74-99); Non-African American GFR(CKD) 38 (>60 ml/min/1.73 sqM); Potassium 3.7 mmol/L (3.5-5.1); Sodium 140 mmol/L (137-145); Total Bilirubin 0.5 mg/dL (0.2-1.3); Total Protein 6.1 g/dL (6.3-8.2)
[2024-10-19 08:28] LABS: Basophils # (A) 0.02 10*3/uL (0.00-0.10); Basophils % (A) 0.3 %; Eosinophils # (A) 0.07 10*3/uL (0.04-0.35); HCT 34.7 % (37.2-46.3); HGB 11.3 g/dL (12.0-15.0); Lymphocytes # (A) 0.73 10*3/uL (0.90-5.00); Lymphocytes % (A) 10.7 %; MCH 31.6 pg (27.0-32.0); MCHC 32.6 g/dL (32.0-37.0); MCV 96.9 fL (80.0-97.0); Mean Platelet Volume 11.1 fL (9.5-12.2); Monocytes # (A) 0.62 10*3/uL (0.20-1.00); Monocytes % (A) 9.1 %; Neutrophils # (A) 5.33 10*3/uL (1.80-7.70); Neutrophils % (A) 78.2 %; Platelet Count 240 10*3/uL (140-440); RBC 3.58 10*6/uL (4.10-5.20); RDW 16.2 % (11.5-14.5); WBC 6.82 10*3/uL (4.50-10.00)
--- NOTE | 2024-10-19 08:37 | P.ANPRN ---
Procedure Note - Anesthesia - Invasive Line Right Central Line Time Out Performed: Yes Date of Procedure: 10/18/24 Time of Procedure: 15:12 Location of Patient: PreOp Preparation: Sterile Prep, Sterile Dressing Central Line Location: Internal Jugular Ultrasound Used: No Purpose - Visualization and Identification of Vasculature: No Image Stored and Saved: No Narrative: Invasive line placement per sterile protocol utilized.
--- NOTE | 2024-10-19 09:58 | P.PN ---
Progress Note - Text Cardiology will sign off. Please reconsult if needed.
[2024-10-19] MEDS: NITROFURANTOIN MONOHYD/M-CRYST 100 MG CAP PO SCH (10:11)
--- NOTE | 2024-10-19 13:10 | P.PN ---
Progress Note - Text Progress Note Date: 10/19/24 Patient seen and examined. Doing well without any significant complaints. Dressing is intact at this time, mild discomfort. Discussed with her that this will be a wound care follow-up at this point did discuss wound care potentially utilizing wound VAC will defer that to their further expertise. Will sign off at this point. Please let us know if we can be of further service.
[2024-10-19 14:17] VITALS: BMI 28.0
--- NOTE | 2024-10-19 15:59 | P.PN ---
Subjective Progress Note Date: 10/19/24 Principal diagnosis: Reason for follow-up is left leg abscess cellulitis Patient is a 59-year-old female with multiple comorbidities presented to the hospital with left lower extremity laceration with associated swelling redness concerning for cellulitis in this patient who did have multiple antibiotic allergies prompting this consultation. Patient is status postSharp excisional debridement left lower extremity wound 9 x 3 x 2.5 to subcutaneous tissue of the left foot wound completed on 10/18/2024. On today's evaluation that is 10/19/2024, the patient continues to be afebrile, the patient is on room air and breathing comfortably, the Pt denies having any chest pain or cough, the patient denies having any abdominal pain no vomiting or any diarrhea pain to the left leg about the same mention urinary symptoms are improved. Patient white count 6.82, creatinine is 1.48 urine with ESBL E. coli Objective - Vital Signs Vital signs: Vital Signs Temp 98.6 F 10/19/24 13:35 Pulse 77 10/19/24 13:35 Resp 18 10/19/24 13:35 BP 140/91 10/19/24 13:35 Pulse Ox 93 L 10/19/24 13:35 FiO2 Intake & Output 10/18/24 10/19/24 10/19/24 18:59 06:59 18:59 Intake Total 400 Output Total 20 Balance 380 Weight 69.4 kg 69.4 kg Intake: IV 400 Output: Estimated Blood Loss 20 Other: Voiding Method Toilet Toilet Toilet # Voids 3 - Exam GENERAL DESCRIPTION: Middle-age female lying in bed in no distress RESPIRATORY SYSTEM: Unlabored breathing , decreased breath sounds at bases HEART: S1 S2 regular rate and rhythm , ABDOMEN: Soft , no tenderness EXTREMITIES: Left lower extremity pustule and leg laceration more marked today - Labs CBC & Chem 7: 10/19/24 06:45 10/19/24 06:45 Labs: Abnormal Lab Results - Last 24 Hours (Table) 10/19/24 10/19/24 Range/Units 06:45 06:45 RBC 3.58 L (4.10-5.20) 10*6/uL Hgb 11.3 L (12.0-15.0) g/dL Hct 34.7 L (37.2-46.3) % RDW 16.2 H (11.5-14.5) % Immature Gran # 0.05 H (0.00-0.04) 10*3/uL Lymphocytes # 0.73 L (0.90-5.00) 10*3/uL BUN 22 H (7-17) mg/dL Creatinine 1.48 H (0.52-1.04) mg/dL Glucose 138 H (74-99) mg/dL Total Protein 6.1 L (6.3-8.2) g/dL Microbiology - Last 24 Hours (Table) 10/15/24 10:51 Blood Culture - Preliminary Blood 10/16/24 01:50 Urine Culture - Final Urine,Clean Catch Escherichia coli ESBL Assessment and Plan (1) Leg ulcer, left Current Visit: Yes Status: Acute Code(s): L97.929 - NON-PRS CHRONIC ULC UNSP PRT OF L LOW LEG W UNSP SEVERITY SNOMED Code(s): 08832370 (2) Cellulitis of left leg Current Visit: Yes Status: Acute Code(s): L03.116 - CELLULITIS OF LEFT LOWER LIMB SNOMED Code(s): 65346499942913568 (3) Allergy to multiple antibiotics Current Visit: No Status: Acute Code(s): Z88.1 - ALLERGY STATUS TO OTHER ANTIBIOTIC AGENTS SNOMED Code(s): 244084867 (4) Thrush Current Visit: Yes Status: Acute Code(s): B37.0 - CANDIDAL STOMATITIS SNOMED Code(s): 92809607 Plan: 1patient presented hospital with left lower extremity laceration with associated swelling redness and pain concerning for wound infection and cellulitis likely from gram-positive skin maddie 2patient with elevated creatinine high risk of nephrotoxicity from vancomycin 3patient with multiple antibiotic ALLERGIES that would limit the number of antibiotic safe to use 4patient did have CT of the left lower extremity did not mention any abscess vascular surgery has seen the patient and is status post sharp excisional debridement of the left leg wound and deep cultures are pending for now patient will be treated with daptomycin and adjust antibiotic further on the basis of culture 5patient with component of thrush continue with nystatin swish and swallow 6ESBL E. coli UTI with the patient was started on Invanz as of yesterday and seems to be doing well tolerating it Dictation was produced using [employer] software. please excuse any grammatical, word or spelling errors. Time with Patient: Less than 30
[2024-10-19] MEDS: APIXABAN 5 MG TAB PO SCH (21:00)
[2024-10-20 10:10] LABS: BUN/Creat Ratio 11.69 Ratio (12.00-20.00); Blood Urea Nitrogen 18.7 mg/dL (9.0-27.0); Calcium 9.3 mg/dL (8.7-10.3); Carbon Dioxide 30.2 mmol/L (21.6-31.8); Chloride 98 mmol/L (96-109); Glucose 136 mg/dL (70-110); Potassium 3.6 mmol/L (3.5-5.5); Sodium 142 mmol/L (135-145)
--- NOTE | 2024-10-20 14:27 | P.PN ---
Subjective Progress Note Date: 10/20/24 Principal diagnosis: Reason for follow-up is left leg abscess cellulitis Patient is a 59-year-old female with multiple comorbidities presented to the hospital with left lower extremity laceration with associated swelling redness concerning for cellulitis in this patient who did have multiple antibiotic allergies prompting this consultation. Patient is status postSharp excisional debridement left lower extremity wound 9 x 3 x 2.5 to subcutaneous tissue of the left foot wound completed on 10/18/2024. On today's evaluation that is 10/21/2023, patient did have a temperature of 97.8 F this morning and denies having any chills, patient is on room air and breathing comfortably no chest pain or cough, the patient did not have any nausea vomiting abdominal pain or any diarrhea pain to the left lower extremity has decreased in urinary symptoms slightly improved. Patient did have a creatinine 1.6 left leg wound cultures currently pending Objective - Vital Signs Vital signs: Vital Signs Temp 97.9 F 10/20/24 12:31 Pulse 72 10/20/24 12:31 Resp 16 10/20/24 12:31 BP 131/82 10/20/24 12:31 Pulse Ox 95 10/20/24 12:31 FiO2 Intake & Output 10/19/24 10/20/24 10/20/24 18:59 06:59 18:59 Intake Total 480 Output Total 0 0 0 Balance 0 0 480 Weight 69.4 kg Intake: Oral 480 Output: Drainage 0 0 0 Left Calf 0 0 0 Other: Voiding Method Toilet Toilet Toilet # Voids 3 - Exam GENERAL DESCRIPTION: Middle-age female lying in bed in no distress RESPIRATORY SYSTEM: Unlabored breathing , decreased breath sounds at bases HEART: S1 S2 regular rate and rhythm , ABDOMEN: Soft , no tenderness EXTREMITIES: Left lower extremity wound is covered with wound VAC - Labs CBC & Chem 7: 10/19/24 06:45 10/20/24 04:08 Labs: Abnormal Lab Results - Last 24 Hours (Table) 10/20/24 Range/Units 04:08 Anion Gap 13.80 H (4.00-12.00) mmol/L Creatinine 1.6 H (0.6-1.5) mg/dL Est GFR (CKD-EPI) 37 L (>=60) BUN/Creatinine Ratio 11.69 L (12.00-20.00) Ratio Glucose 136 H (70-110) mg/dL Microbiology - Last 24 Hours (Table) 10/18/24 18:00 Wound Culture - Preliminary Leg - Left 10/18/24 18:00 Wound Culture - Preliminary Leg - Left Assessment and Plan (1) Leg ulcer, left Current Visit: Yes Status: Acute Code(s): L97.929 - NON-PRS CHRONIC ULC UNSP PRT OF L LOW LEG W UNSP SEVERITY SNOMED Code(s): 03757038 (2) Cellulitis of left leg Current Visit: Yes Status: Acute Code(s): L03.116 - CELLULITIS OF LEFT LOWER LIMB SNOMED Code(s): 63407281766675081 (3) Allergy to multiple antibiotics Current Visit: No Status: Acute Code(s): Z88.1 - ALLERGY STATUS TO OTHER ANTIBIOTIC AGENTS SNOMED Code(s): 822245642 (4) Thrush Current Visit: Yes Status: Acute Code(s): B37.0 - CANDIDAL STOMATITIS SNOMED Code(s): 23721326 Plan: 1patient presented hospital with left lower extremity laceration with associated swelling redness and pain concerning for wound infection and cellulitis likely from gram-positive skin maddie 2patient with elevated creatinine high risk of nephrotoxicity from vancomycin 3patient with multiple antibiotic ALLERGIES that would limit the number of antibiotic safe to use 4patient did have CT of the left lower extremity did not mention any abscess vascular surgery has seen the patient and is status post sharp excisional debridement of the left leg wound and deep cultures which are currently pending patient is covered with daptomycin discharge debriding the base of wound culture 5patient with component of thrush patient to continue with nystatin swish and swallow 6ESBL E. coli UTI for the patient is currently being treated with IV Invanz to continue while inpatient Dictation was produced using [employer] dictation software. please excuse any grammatical, word or spelling errors. Time with Patient: Less than 30
[2024-10-20] MEDS: ONDANSETRON 4 MG/2 ML VIAL IVP PRN (20:27)
--- NOTE | 2024-10-20 20:54 | PN ---
PROGRESS NOTE SUBJECTIVE: A 59-year-old white female, intractable pain, edema, drug-resistant UTI, E coli, on IV Invanz. She has a wound VAC in her left leg due to ulcer. Her CHF has improved. Her leg swelling has improved. PHYSICAL EXAMINATION: CARDIOVASCULAR: S1, S2. LUNGS: Transmitted upper sounds. HEMATOLOGY: Negative Homans. SKIN: Wound VAC, left leg. ASSESSMENT AND PLAN: Intractable pain, drug-resistant UTI, wound left lower leg, diabetes mellitus, antiphospholipid syndrome. Prognosis guarded. Continue current treatment. Prognosis guarded. Ambulate as tolerated. Wound care with wound VAC to the left leg. Prognosis guarded. IV Invanz for urinary tract infection. MMODL / IJN: [id number] /
--- NOTE | 2024-10-21 15:07 | P.PN ---
Subjective Progress Note Date: 10/21/24 Principal diagnosis: Reason for follow-up is left leg abscess cellulitis Patient is a 59-year-old female with multiple comorbidities presented to the hospital with left lower extremity laceration with associated swelling redness concerning for cellulitis in this patient who did have multiple antibiotic allergies prompting this consultation. Patient is status postSharp excisional debridement left lower extremity wound 9 x 3 x 2.5 to subcutaneous tissue of the left foot wound completed on 10/18/2024. On today's evaluation that is 10/21/2024, Patient is afebrile patient is currently on room air and denies having any shortness of breath, the patient denies any chest pain or cough, the patient denies any nausea vomiting did not have any abdominal pain and, did have some diarrhea, pain to the left lower extremity is currently controlled. No new lab has been obtained today, stool for C. difficile is negative local cultures pending Objective - Vital Signs Vital signs: Vital Signs Temp 99.3 F 10/21/24 12:23 Pulse 68 10/21/24 12:23 Resp 16 10/21/24 12:23 BP 145/76 10/21/24 12:23 Pulse Ox 92 L 10/21/24 12:23 FiO2 Intake & Output 10/20/24 10/21/24 10/21/24 18:59 06:59 18:59 Intake Total 1979 480 Output Total 0 0 Balance 1979 0 480 Intake: Oral 1979 480 Output: Drainage 0 0 Left Calf 0 0 Other: Voiding Method Toilet Toilet Toilet # Voids 5 2 # Bowel Movements 3 - Exam GENERAL DESCRIPTION: Middle-age female lying in bed in no distress RESPIRATORY SYSTEM: Unlabored breathing , decreased breath sounds at bases HEART: S1 S2 regular rate and rhythm , ABDOMEN: Soft , no tenderness EXTREMITIES: Left lower extremity wound is covered with wound VAC - Labs CBC & Chem 7: 10/19/24 06:45 10/20/24 04:08 Labs: Microbiology - Last 24 Hours (Table) 10/18/24 18:00 Anaerobic Culture - Preliminary Leg - Left 10/18/24 18:00 Anaerobic Culture - Preliminary Leg - Left 10/18/24 18:00 Gram Stain - Final Leg - Left Wound Culture - Final 10/15/24 10:51 Blood Culture - Final Blood 10/18/24 18:00 Gram Stain - Final Leg - Left Wound Culture - Final Assessment and Plan (1) Leg ulcer, left Current Visit: Yes Status: Acute Code(s): L97.929 - NON-PRS CHRONIC ULC UNSP PRT OF L LOW LEG W UNSP SEVERITY SNOMED Code(s): 60164279 (2) Cellulitis of left leg Current Visit: Yes Status: Acute Code(s): L03.116 - CELLULITIS OF LEFT LOWER LIMB SNOMED Code(s): 53612873438198931 (3) Allergy to multiple antibiotics Current Visit: No Status: Acute Code(s): Z88.1 - ALLERGY STATUS TO OTHER ANTIBIOTIC AGENTS SNOMED Code(s): 509076518 (4) Thrush Current Visit: Yes Status: Acute Code(s): B37.0 - CANDIDAL STOMATITIS SNOMED Code(s): 11367625 Plan: 1patient presented hospital with left lower extremity laceration with associated swelling redness and pain concerning for wound infection and cellulitis likely from gram-positive skin maddie 2patient with elevated creatinine high risk of nephrotoxicity from vancomycin 3patient with multiple antibiotic ALLERGIES that would limit the number of antibiotic safe to use 4patient did have CT of the left lower extremity did not mention any abscess vascular surgery has seen the patient and is status post sharp excisional debridement of the left leg wound and deep cultures which are currently pending patient is covered with daptomycin, left leg cultures currently pending 5patient with component of thrush patient to continue with nystatin swish and swallow 6ESBL E. coli UTI for the patient to continue with IV Invanz to continue while inpatient Dictation was produced using [employer] dictation software. please excuse any grammatical, word or spelling errors. Time with Patient: Less than 30
[2024-10-23 07:43] VITALS: RESP 16
--- NOTE | 2024-10-23 13:42 | P.PN ---
Subjective Progress Note Date: 10/22/24 Principal diagnosis: Reason for follow-up is left leg abscess cellulitis Patient is a 59-year-old female with multiple comorbidities presented to the hospital with left lower extremity laceration with associated swelling redness concerning for cellulitis in this patient who did have multiple antibiotic allergies prompting this consultation. Patient is status postSharp excisional debridement left lower extremity wound 9 x 3 x 2.5 to subcutaneous tissue of the left foot wound completed on 10/18/2024. On today's evaluation that is 10/22/2024, patient has been afebrile, patient is breathing comfortably and is currently on room air, patient denies having any chest pain and cough, patient denies nausea vomiting or diarrhea and no abdominal pain pain to the left lower extremity is controlled mention improvement her oral thrush. No new lab has been repeated today Objective - Vital Signs Vital signs: Vital Signs Temp 98.4 F 10/22/24 08:00 Pulse 70 10/22/24 08:00 Resp 16 10/22/24 08:00 BP 122/78 10/22/24 08:00 Pulse Ox 94 L 10/22/24 08:00 FiO2 Intake & Output 10/21/24 10/22/24 10/22/24 18:59 06:59 18:59 Intake Total 2700 1080 Output Total 0 Balance 2700 1080 Intake: Oral 2700 1080 Output: Drainage 0 Left Calf 0 Other: Voiding Method Toilet Toilet # Voids 5 0 # Bowel Movements 3 0 - Exam GENERAL DESCRIPTION: Middle-age female lying in bed in no distress RESPIRATORY SYSTEM: Unlabored breathing , decreased breath sounds at bases HEART: S1 S2 regular rate and rhythm , ABDOMEN: Soft , no tenderness EXTREMITIES: Left lower extremity wound is covered with wound VAC - Labs CBC & Chem 7: 10/19/24 06:45 10/20/24 04:08 Assessment and Plan (1) Leg ulcer, left Current Visit: Yes Status: Acute Code(s): L97.929 - NON-PRS CHRONIC ULC UNSP PRT OF L LOW LEG W UNSP SEVERITY SNOMED Code(s): 14782227 (2) Cellulitis of left leg Current Visit: Yes Status: Acute Code(s): L03.116 - CELLULITIS OF LEFT LOWER LIMB SNOMED Code(s): 02743020923892772 (3) Allergy to multiple antibiotics Current Visit: No Status: Acute Code(s): Z88.1 - ALLERGY STATUS TO OTHER ANTIBIOTIC AGENTS SNOMED Code(s): 896053531 (4) Thrush Current Visit: Yes Status: Acute Code(s): B37.0 - CANDIDAL STOMATITIS SNOMED Code(s): 58470984 Plan: 1patient presented hospital with left lower extremity laceration with ass ociated swelling redness and pain concerning for wound infection and cellulitis likely from gram-positive skin maddie 2patient with elevated creatinine high risk of nephrotoxicity from vancomycin 3patient with multiple antibiotic ALLERGIES that would limit the number of antibiotic safe to use 4patient did have CT of the left lower extremity did not mention any abscess vascular surgery has seen the patient and is status post sharp excisional debridement of the left leg wound and deep cultures which are currently pending patient is covered with daptomycin, left leg cultures so far negative, no need for IV antibiotics on discharge 5patient with component of thrush patient to continue with nystatin swish and swallow 6ESBL E. coli UTI for the patient to continue with IV Invanz, patient mention improvement in his symptoms a 5-day course of antibiotic should be enough Dictation was produced using [employer] dictation software. please excuse any grammatical, word or spelling errors. Time with Patient: Less than 30
--- NOTE | 2024-10-23 13:43 | P.PN ---
Subjective Progress Note Date: 10/23/24 Principal diagnosis: Reason for follow-up is left leg abscess cellulitis Patient is a 59-year-old female with multiple comorbidities presented to the hospital with left lower extremity laceration with associated swelling redness concerning for cellulitis in this patient who did have multiple antibiotic allergies prompting this consultation. Patient is status postSharp excisional debridement left lower extremity wound 9 x 3 x 2.5 to subcutaneous tissue of the left foot wound completed on 10/18/2024. On today's evaluation that is 10/23/2024, Patient is afebrile this morning patient denies having any chest pain shortness of breath or cough, the patient is currently on room air, patient denies any abdominal pain no diarrhea no nausea no vomiting pain to the left lower extremity has decreased urinary symptoms improve as well as sores in the mouth. No new lab has been obtained today culture have been negative Objective - Vital Signs Vital signs: Vital Signs Temp 97.5 F L 10/23/24 07:42 Pulse 65 10/23/24 07:42 Resp 16 10/23/24 08:00 BP 146/81 10/23/24 07:42 Pulse Ox 94 L 10/23/24 07:42 FiO2 Intake & Output 10/22/24 10/23/24 10/23/24 18:59 06:59 18:59 Intake Total 1080 Output Total 0 0 Balance 0 1080 Intake: Oral 1080 Output: Drainage 0 0 Left Calf 0 0 Other: Voiding Method Toilet Toilet Toilet # Voids 2 - Exam GENERAL DESCRIPTION: Middle-age female lying in bed in no distress RESPIRATORY SYSTEM: Unlabored breathing , decreased breath sounds at bases HEART: S1 S2 regular rate and rhythm , ABDOMEN: Soft , no tenderness EXTREMITIES: Left lower extremity wound is covered with wound VAC - Labs CBC & Chem 7: 10/19/24 06:45 10/20/24 04:08 Labs: Microbiology - Last 24 Hours (Table) 10/18/24 18:00 Anaerobic Culture - Final Leg - Left 10/18/24 18:00 Anaerobic Culture - Final Leg - Left Assessment and Plan (1) Leg ulcer, left Current Visit: Yes Status: Acute Code(s): L97.929 - NON-PRS CHRONIC ULC UNSP PRT OF L LOW LEG W UNSP SEVERITY SNOMED Code(s): 25478431 (2) Cellulitis of left leg Current Visit: Yes Status: Acute Code(s): L03.116 - CELLULITIS OF LEFT LOWER LIMB SNOMED Code(s): 79988184084921863 (3) Allergy to multiple antibiotics Current Visit: No Status: Acute Code(s): Z88.1 - ALLERGY STATUS TO OTHER AN TIBIOTIC AGENTS SNOMED Code(s): 866744822 (4) Thrush Current Visit: Yes Status: Acute Code(s): B37.0 - CANDIDAL STOMATITIS SNOMED Code(s): 37450400 Plan: 1patient presented hospital with left lower extremity laceration with associated swelling redness and pain concerning for wound infection and cellulitis likely from gram-positive skin maddie 2patient with elevated creatinine high risk of nephrotoxicity from vancomycin 3patient with multiple antibiotic ALLERGIES that would limit the number of antibiotic safe to use 4patient did have CT of the left lower extremity did not mention any abscess vascular surgery has seen the patient and is status post sharp excisional debridement of the left leg wound and deep cultures which are currently pending patient is covered with daptomycin, left leg cultures so far negative, no need for IV antibiotics on discharge 5patient with component of thrush patient to continue with nystatin swish and swallow 6ESBL E. coli UTI for the patient to continue with IV Invanz, patient mention improvement in his symptoms, Invanz can be safely discontinued there is no need for any IV antibiotics on discharge she will need arrangement for outpatient IV wound VAC for the left leg wound Dictation was produced using [email or web address] dictation software. please excuse any grammatical, word or spelling errors. Time with Patient: Less than 30
--- NOTE | 2024-10-24 02:00 | PN ---
PROGRESS NOTE SUBJECTIVE: Intractable pain, edema. Wound care with wound VACs in. Drug-resistant UTI, on IV Invanz. OBJECTIVE: CARDIOVASCULAR: Stable. S1, S2. LUNGS: Clear. GI: Soft. HEMATOLOGY: Negative Homans. PSYCH: Fair mood and affect. PLAN: Continue discharge planning. Get discharged home tomorrow and get the line removed out of her right jugular for another 7 days. Wound VAC. Home nursing care. Prognosis is discharge tomorrow morning. MMODL / IJN: [id number] /
[2024-10-24 08:08] VITALS: TEMP 98.7
[2024-10-24 12:12] VITALS: BP 105/70; PULSE 70
--- NOTE | 2024-10-26 16:25 | P.PN ---
Subjective Progress Note Date: 10/24/24 Principal diagnosis: Reason for follow-up is left leg abscess cellulitis Patient is a 59-year-old female with multiple comorbidities presented to the hospital with left lower extremity laceration with associated swelling redness concerning for cellulitis in this patient who did have multiple antibiotic allergies prompting this consultation. Patient is status postSharp excisional debridement left lower extremity wound 9 x 3 x 2.5 to subcutaneous tissue of the left foot wound completed on 10/18/2024. On today's evaluation that is 10/24/2024,the patient denies any fever or any chills, patient is breathing comfortably on room air, the patient denies chest pain shortness of breath and no significant cough, patient denies abdominal pain, no nausea vomiting or diarrhea. Pain to the left lower extremity has decreased urinary symptoms resolved. No new lab has been obtained today culture remains to be negative Objective - Vital Signs Vital signs: Vital Signs Temp 98.7 F 10/24/24 08:00 Pulse 72 10/24/24 08:00 Resp 16 10/24/24 08:00 BP 125/86 10/24/24 08:00 Pulse Ox 97 10/24/24 08:00 FiO2 Intake & Output 10/23/24 10/24/24 10/24/24 18:59 06:59 18:59 Output Total 0 0 Balance 0 0 Output: Drainage 0 0 Left Calf 0 0 Other: Voiding Method Toilet Toilet Toilet # Voids 3 - Exam GENERAL DESCRIPTION: Middle-age female lying in bed in no distress RESPIRATORY SYSTEM: Unlabored breathing , decreased breath sounds at bases HEART: S1 S2 regular rate and rhythm , ABDOMEN: Soft , no tenderness EXTREMITIES: Left lower extremity wound is covered with wound VAC - Labs CBC & Chem 7: 10/19/24 06:45 10/20/24 04:08 Assessment and Plan (1) Leg ulcer, left Status: Acute Code(s): L97.929 - NON-PRS CHRONIC ULC UNSP PRT OF L LOW LEG W UNSP SEVERITY SNOMED Code(s): 98729150 (2) Cellulitis of left leg Status: Acute Code(s): L03.116 - CELLULITIS OF LEFT LOWER LIMB SNOMED Code(s): 14344000980018335 (3) Allergy to multiple antibiotics Status: Acute Code(s): Z88.1 - ALLERGY STATUS TO OTHER ANTIBIOTIC AGENTS SNOMED Code(s): 337923005 (4) Thrush Status: Acute Code(s): B37.0 - CANDIDAL STOMATITIS SNOMED Code(s): 61366045 Plan: 1patient presented hospital with left lower extremity laceration with associated swelling redness and pain concerning for wound infection and cellulitis likely from gram-positive skin maddie 2patient with elevated creatinine high risk of nephrotoxicity from vancomycin 3patient with multiple antibiotic ALLERGIES that would limit the number of antibiotic safe to use 4patient did have CT of the left lower extremity did not mention any abscess vascular surgery has seen the patient and is status post sharp excisional debridement of the left leg wound and deep cultures which are currently pending patient is covered with daptomycin, left leg cultures so far negative, no need for IV antibiotics on discharge, will avoid and discontinue daptomycin 5patient with component of thrush patient to continue with nystatin swish and swallow 6ESBL E. coli UTI for the patient has received adequate IV Invanz, patient mention improvement in her symptoms, Invanz will be discontinued Dictation was produced using [employer] dictation software. please excuse any grammatical, word or spelling errors. Time with Patient: Less than 30
== END 2024-10-24 15:28 | disposition home or self-care (01) | DRG 570 ==
LOC: EC 18:59 → 6NMEDSUR 10-13 04:46 → OBSVTOIN 10-13 04:47 → 6NMEDSUR 10-13 06:45 → 5NMEDONC 10-13 08:18
PROVIDERS: ADMIT Family Medicine; ATTEND Family Medicine
PROC: 0JBP0ZZ Excision of Left Lower Leg Subcutaneous Tissue and Fascia, Open Approach (ICD-10-PCS; principal; 2024-10-18 13:45)
DX: L03.116 Cellulitis of left lower limb (principal); I50.33 Acute on chronic diastolic (congestive) heart failure; B37.0 Candidal stomatitis; D68.61 Antiphospholipid syndrome; L88 Pyoderma gangrenosum; F44.5 Conversion disorder with seizures or convulsions; E11.22 Type 2 diabetes mellitus with diabetic chronic kidney disease; J44.89 Other specified chronic obstructive pulmonary disease; M32.9 Systemic lupus erythematosus, unspecified; N18.30 Chronic kidney disease, stage 3 unspecified; D64.9 Anemia, unspecified; Z95.3 Presence of xenogenic heart valve; L97.222 Non-pressure chronic ulcer of left calf with fat layer exposed; N28.0 Ischemia and infarction of kidney; N39.0 Urinary tract infection, site not specified; S81.812A Laceration without foreign body, left lower leg, initial encounter; B96.20 Unspecified Escherichia coli [E. coli] as the cause of diseases classified elsewhere; I87.8 Other specified disorders of veins; F41.9 Anxiety disorder, unspecified; G43.909 Migraine, unspecified, not intractable, without status migrainosus; L02.416 Cutaneous abscess of left lower limb; Z79.891 Long term (current) use of opiate analgesic; Z95.0 Presence of cardiac pacemaker; Z79.01 Long term (current) use of anticoagulants; Z86.711 Personal history of pulmonary embolism; Z79.52 Long term (current) use of systemic steroids; I25.2 Old myocardial infarction; Z88.1 Allergy status to other antibiotic agents; Z79.899 Other long term (current) drug therapy
CPT/HCPCS: 36415; 51798; 70490; 71046; 74018; 80048; 80053; 81001; 83605; 83735; 83880; 84132; 84484; 85025; 85610; 85730; 86140; 87040; 87070; 87075; 87077; 87086; 87186; 87205; 87324; 87636; 93005; 93308; 94640; 94760; 96374; 96375; 99285

== ENCOUNTER 2024-11-06 14:53 | Observation (INO) | payer MEDICARE ==
--- NOTE | 2024-11-06 16:57 | ED ---
General Adult HPI - General Source: patient, RN notes reviewed Mode of arrival: ambulatory Limitations: no limitations <Mahamed Lang - Last Filed: 11/06/24 16:55> - General Source: patient, RN notes reviewed, old records reviewed Mode of arrival: ambulatory Limitations: no limitations - History of Present Illness -: days(s) Location: head, face Radiation: non-radiation Consistency: constant Improves with: none Worsens with: none Associated Symptoms: denies other symptoms <Angel Mayes - Last Filed: 11/12/24 02:38> - General Chief complaint: Recheck/Abnormal Lab/Rx Stated complaint: Abn labs Time Seen by Provider: 11/06/24 15:03 - History of Present Illness Initial comments: Quick note: This is a 59-year-old female with history including AR, PE, renal disease, antiphospholipid antibody syndrome and seizures presenting from Dr. Hassan's office for possible kidney failure. Patient was notified that her kidney function was abnormal following lab work earlier today. Endorses bilateral flank pain (/10) and decreased urinary output. Patient also endorses back spasm that radiates to her right leg. Patient endorses recent hospitalization following surgical debridement of her LLE wound. Endorses use of [place] with minimal relief. (Mahamed Lang) This is a 59 female to the ED co RUBEN and presents with chronic pain (Angel Mayes) - Related Data Home Medications Medication Instructions Recorded Confirmed Atorvastatin [Lipitor] 40 mg PO HS 09/24/21 11/07/24 Sertraline [Zoloft] 200 mg PO DAILY 09/24/21 11/07/24 Apixaban [Eliquis] 5 mg PO BID 05/29/22 11/07/24 busPIRone HCl [Buspar] 5 mg PO BID 06/11/22 11/07/24 Fludrocortisone [Florinef] 0.1 mg PO DAILY 09/20/22 11/07/24 Budesonide/Glycopyr/Formoterol 2 puff INHALATION RT-BID 12/26/23 11/07/24 [Breztri Aerosphere Inhaler] Gabapentin 600 mg PO TID 12/26/23 11/07/24 Ondansetron [Zofran] 4 mg PO TID PRN 12/26/23 11/07/24 HYDROcodone/APAP 7.5-325MG [[place] 1 tab PO TID 04/06/24 11/07/24 7.5-325] Cyclobenzaprine [Flexeril] 5 mg PO TID PRN 06/18/24 11/07/24 Metoprolol Succinate (ER) [Toprol 50 mg PO DAILY 06/27/24 11/07/24 XL] Hydrocortisone [Cortef] 10 mg PO BID 07/27/24 11/07/24 Colchicine 0.6 mg PO DAILY 09/20/24 11/07/24 Diphenhydramine 50mg/Ml 50 mg IM Q6H PRN 09/20/24 11/07/24 allopurinoL [Zyloprim] 300 mg PO DAILY 09/20/24 11/07/24 Previous Rx's Medication Instructions Recorded Pantoprazole [Protonix] 40 mg PO AC-BID 30 Days #60 tab 04/24/24 Tiotropium 2.5 Mcg/Puff [Spiriva 2 puff INHALATION RT-DAILY each 07/31/24 Respimat 2.5 Mcg] Ipratropium-Albuterol Nebulize 3 ml INHALATION RT-TID 1 Days #90 09/23/24 [Duoneb 0.5 mg-3 mg/3 ml Soln] each Mupirocin 2% Oint [Bactroban 2% 1 applic TOPICAL TID #30 gm 10/12/24 Oint] Acetaminophen Tab [Tylenol] 650 mg PO Q6HR PRN tab 10/24/24 Allergies Allergy/AdvReac Type Severity Reaction Status Date / Time Penicillins Allergy Severe Anaphylaxis Verified 11/07/24 11:25 vancomycin Allergy Severe Swelling Verified 11/07/24 11:25 in lips NSAIDS (Non-Steroidal Allergy Unknown pt has Verified 11/07/24 11:25 Anti-Inflamma clotting disorder and is to not take NSAIDS cefepime Allergy Swelling Verified 11/07/24 11:25 clindamycin Allergy Anaphylaxis Verified 11/07/24 11:25 Influenza Virus Vaccines Allergy Anaphylaxis Verified 11/07/24 11:25 latex Allergy Itching Verified 11/07/24 11:25 and swelling morphine Allergy Anaphylaxis Verified 11/07/24 11:25 albuterol [From Ventolin HFA] AdvReac Rapid Verified 11/07/24 11:25 Heart Rate galcanezumab-gnlm AdvReac Confusion, Verified 11/07/24 11:25 [From Emgality Pen] increased blood pressure metoclopramide [From Reglan] AdvReac "felt like Verified 11/07/24 11:25 I needed to jump out of my skin" prochlorperazine AdvReac severe Verified 11/07/24 11:25 [From Compazine] anxiety Review of Systems ROS Other: All systems not noted in ROS Statement are negative. <Mahamed Lang - Last Filed: 11/06/24 16:55> ROS Other: All systems not noted in ROS Statement are negative. <Angel Mayes - Last Filed: 11/12/24 02:38> ROS Statement: Those systems with pertinent positive or pertinent negative responses have been documented in the HPI. 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 Patient states past history of C-Diff from 03/2023. last seizure last night twitching, usually with migraines or electrolyte imbalance. has had massive bleeding from xarelto Last Myocardial Infarction Date:: 08/30/2018 History of Any Multi-Drug Resistant Organisms: C-DIFF Date of last positivie culture/infection: 2023 has had three times MDRO Source:: unk Past Surgical History: Back Surgery, Breast Surgery, Cardiac Valve Replacement, Section, Cholecystectomy, Heart Catheterization, Hysterectomy, Pacemaker Additional Past Surgical History / Comment(s): pacemaker d/t bradycardia/hypotension with last one place in 2013 in [place], [place], 3 lower back surgeries, bilateral breast reduction. 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. lamenectomy Past Anesthesia/Blood Transfusion Reactions: No Reported Reaction Additional Past Anesthesia/Blood Transfusion Reaction / Comment(s): blood transfusion no issues Type of Cardiac Device: Permanent Pacemaker, Unknown Device Placement Date:: 2012 Past Psychological History: Anxiety, PTSD Smoking Status: Never smoker Past Alcohol Use History: Rare Past Drug Use History: Marijuana - Past Family History Mother Additional Family Medical History / Comment(s): Mother at the age of 49 yrs after surgery for silicon breast implants with a leak that caused ARDS and DIC per pt (fibroid cysts) Father Family Medical History: Cancer, Hyperlipidemia, Hypertension Additional Family Medical History / Comment(s): Father is a colon cancer survivor. <Mahamed Lang - Last Filed: 11/06/24 16:55> General Exam Limitations: no limitations <RickeyMahamed - Last Filed: 11/06/24 16:55> General appearance: alert, in no apparent distress Head exam: Present: atraumatic, normocephalic, normal inspection Eye exam: Present: normal appearance, PERRL, EOMI. Absent: scleral icterus, conjunctival injection, periorbital swelling ENT exam: Present: normal exam, mucous membranes moist Neck exam: Present: normal inspection. Absent: tenderness, meningismus, lymphadenopathy Respiratory exam: Present: normal lung sounds bilaterally. Absent: respiratory distress, wheezes, rales, rhonchi, stridor Cardiovascular Exam: Present: regular rate, normal rhythm, normal heart sounds. Absent: systolic murmur, diastolic murmur, rubs, gallop, clicks GI/Abdominal exam: Present: soft, normal bowel sounds. Absent: distended, tenderness, guarding, rebound, rigid Extremities exam: Present: normal inspection, full ROM, normal capillary refill. Absent: tenderness, pedal edema, joint swelling, calf tenderness Back exam: Present: normal inspection Neurological exam: Present: alert, oriented X3, CN II-XII intact Psychiatric exam: Present: normal affect, normal mood Skin exam: Present: warm, dry, intact, normal color. Absent: rash <Angel Mayes - Last Filed: 11/12/24 02:38> - General Exam Comments Initial Comments: Visual Physical Exam Vital signs reviewed General: Well-appearing, nontoxic, no acute distress. Head: Normocephalic, atraumatic Eyes: PERRLA, EOMI ENT: Airway patent Chest: Nonlabored breathing Skin: No visual rash, normal skin tone Neuro: Alert and oriented 3 Musculoskeletal: No gross abnormalities (Rickey,Mahamed) Course <Angel Mayes - Last Filed: 11/12/24 02:38> Vital Signs 11/06/24 11/06/24 11/06/24 15:32 21:50 23:05 Temperature 97.9 F 98 F Pulse Rate 71 82 70 Respiratory 20 18 18 Rate Blood Pressure 144/90 148/62 110/73 O2 Sat by Pulse 92 L 97 98 Oximetry - Reevaluation(s) Reevaluation #1: 11/06/24 22:56 Medical records reviewed (Angel Mayes) Reevaluation #2: 11/06/24 22:56 Patient symptoms improved (Angel Mayes) Reevaluation #3: 11/06/24 22:57 Patient informed of results and questions answered (Angel Mayes) Reevaluation #4: 11/06/24 22:57 Was pt. sent in by a medical professional or institution (, PA, PHARMACOVIGILANCE SCIENTIST, urgent care, hospital, or group home...) When possible be specific @ -no Did you speak to anyone other than the patient for history (EMS, parent, family, police, friend...)? What history was obtained from this source @ -no Did you review nursing and triage notes (agree or disagree)? Why? @ -agree Are old charts reviewed (outside hosp., previous admission, EMS record, old EKG, old radiological studies, urgent care reports/EKG's, group home records)? Report findings @ -yes Differential Diagnosis (chest pain, altered mental status, abdominal pain women, abdominal pain men, vaginal bleeding, weakness, fever, dyspnea, syncope, headache, dizziness, GI bleed, back pain, seizure, CVA, palpatations, mental health, musculoskeletal)? @ -prior EKG interpreted by me (3pts min.). @ -yes X-rays interpreted by me (1pt min.). @ -no CT interpreted by me (1pt min.). @ -no U/S interpreted by me (1pt. min.). @ -no What testing was considered but not performed or refused? (CT, X-rays, U/S, labs)? Why? @ -none What meds were considered but not given or refused? Why? @ -none Did you discuss the management of the patient with other professionals (professionals i.e. DrMaria Teresa, PA, PHARMACOVIGILANCE SCIENTIST, lab, RT, psych nurse, clinical social work therapist, water taxi ferry operator, teacher, public affairs officer, rehabilitation case coordinator)? Give summary @ -no Was smoking cessation discussed for >3mins.? @ -no Was critical care preformed (if so, how long)? @ -no Were there social determinants of health that impacted care today? How? (Ho melessness, low income, unemployed, alcoholism, drug addiction, transportation, low edu. Level, literacy, decrease access to med. care, [facility], rehab)? @ -none Was there de-escalation of care discussed even if they declined (Discuss DNR or withdrawal of care, Hospice)? DNR status @ -no What co-morbidities impacted this encounter? (DM, HTN, Smoking, COPD, CAD, Cancer, CVA, ARF, Chemo, Hep., AIDS, mental health diagnosis, sleep apnea, morbid obesity)? @ -none Was patient admitted / discharged? Hospital course, mention meds given and route, prescriptions, significant lab abnormalities, going to OR and other pertinent info. @ - 59 female admitted for acute kidney injury, known history of kidney injury multiple medical comorbidities, patient will admit for IV hydration and nephrology evaluation Admitted Undiagnosed new problem with uncertain prognosis? @ -no Drug Therapy requiring intensive monitoring for toxicity (Heparin, Nitro, Insulin, Cardizem)? @ -no Were any procedures done? @ -no Diagnosis/symptom? @ -Acute kidney injury Acute, or Chronic, or Acute on Chronic? @ -Acute Uncomplicated (without systemic symptoms) or Complicated (systemic symptoms)? @ -Complicated Side effects of treatment? @ -no Exacerbation, Progression, or Severe Exacerbation? @ -exacerbation Poses a threat to life or bodily function? How? (Chest pain, [place], AR, pneumonia, PE, COPD, DKA, ARF, appy, cholecystitis, CVA, Diverticulitis, Homicidal, Suicidal, threat to staff... and all critical care pts) @ -yes significant comorbid conditions (Angel Mayes) Reevaluation #5: Differential Weakness: Hypoglycemia, shock, sepsis, hyponatremia, anemia, infection, AR, ETOH, adverse medicine reaction, overdose, stroke, this is not meant to be an all-inclusive list. (Angel Mayes) Medical Decision Making <Mahamed Lang - Last Filed: 11/06/24 16:55> - Lab Data Result diagrams: 11/08/24 05:26 11/08/24 05:26 <Angel Mayes - Last Filed: 11/12/24 02:38> - Medical Decision Making I completed the quick note portion of this chart signed ARMINDA Varela (Mahamed Lang) 59 female admitted for acute kidney injury, known history of kidney injury multiple medical comorbidities, patient will admit for IV hydration and nephr ology evaluation (Angel Mayes) - Lab Data Lab Results 11/06/24 11/06/24 11/06/24 Range/Units 19:49 22:33 22:33 WBC 3.88 L (4.50-10.00) 10*3/uL RBC 3.64 L (4.10-5.20) 10*6/uL Hgb 11.1 L (12.0-15.0) g/dL Hct 33.6 L (37.2-46.3) % MCV 92.3 (80.0-97.0) fL MCH 30.5 (27.0-32.0) pg MCHC 33.0 (32.0-37.0) g/dL Plt Count 321 (140-440) 10*3/uL MPV 10.2 (9.5-12.2) fL Immature Gran % (Auto) 0.5 % Neutrophils % 56.4 % Lymphocytes % 27.6 % Monocytes % 10.1 % Eosinophils % 4.9 % Basophils % 0.5 % Immature Gran # 0.02 (0.00-0.04) 10*3/uL Neutrophils # 2.19 (1.80-7.70) 10*3/uL Lymphocytes # 1.07 (0.90-5.00) 10*3/uL Monocytes # 0.39 (0.20-1.00) 10*3/uL Eosinophils # 0.19 (0.04-0.35) 10*3/uL Basophils # 0.02 (0.00-0.10) 10*3/uL Sodium 137 (137-145) mmol/L Potassium 3.5 (3.5-5.1) mmol/L Chloride 95 L (98-107) mmol/L Carbon Dioxide 30 (22-30) mmol/L Anion Gap 12 mmol/L BUN 33 H (7-17) mg/dL Creatinine 2.52 H (0.52-1.04) mg/dL Est GFR (CKD-EPI)AfAm 23 (>60 ml/min/1.73 sqM) Est GFR (CKD-EPI)NonAf 20 (>60 ml/min/1.73 sqM) Glucose 130 H (74-99) mg/dL Plasma Lactic Acid Raffi (0.7-2.0) mmol/L Calcium 9.8 (8.4-10.2) mg/dL Total Bilirubin 0.2 (0.2-1.3) mg/dL AST 22 (14-36) U/L ALT 18 (4-34) U/L Alkaline Phosphatase 76 (38-126) U/L Total Protein 6.2 L (6.3-8.2) g/dL Albumin 3.8 (3.5-5.0) g/dL Urine Color Colorless Urine Appearance Clear (Clear) Urine pH 5.5 (5.0-8.0) Ur Specific Mallory 1.017 (1.001-1.035) Urine Protein Negative (Negative) Urine Glucose (UA) Negative (Negative) Urine Ketones Negative (Negative) Urine Blood Negative (Negative) Urine Nitrite Negative (Negative) Urine Bilirubin Negative (Negative) Urine Urobilinogen <2.0 (<2.0) mg/dL Ur Leukocyte Esterase Trace H (Negative) Urine RBC <1 (0-5) /hpf Urine WBC 2 (0-5) /hpf Ur Squamous Epith Cells 2 (0-4) /hpf Urine Bacteria Rare H (None) /hpf Hyaline Casts 35 H (0-2) /lpf Urine Mucus Rare H (None) /hpf Urine Yeast (Budding) Rare H (None) /hpf 11/06/24 Range/Units 22:33 WBC (4.50-10.00) 10*3/uL RBC (4.10-5.20) 10*6/uL Hgb (12.0-15.0) g/dL Hct (37.2-46.3) % MCV (80.0-97.0) fL MCH (27.0-32.0) pg MCHC (32.0-37.0) g/dL Plt Count (140-440) 10*3/uL MPV (9.5-12.2) fL Immature Gran % (Auto) % Neutrophils % % Lymphocytes % % Monocytes % % Eosinophils % % Basophils % % Immature Gran # (0.00-0.04) 10*3/uL Neutrophils # (1.80-7.70) 10*3/uL Lymphocytes # (0.90-5.00) 10*3/uL Monocytes # (0.20-1.00) 10*3/uL Eosinophils # (0.04-0.35) 10*3/uL Basophils # (0.00-0.10) 10*3/uL Sodium (137-145) mmol/L Potassium (3.5-5.1) mmol/L Chloride (98-107) mmol/L Carbon Dioxide (22-30) mmol/L Anion Gap mmol/L BUN (7-17) mg/dL Creatinine (0.52-1.04) mg/dL Est GFR (CKD-EPI)AfAm (>60 ml/min/1.73 sqM) Est GFR (CKD-EPI)NonAf (>60 ml/min/1.73 sqM) Glucose (74-99) mg/dL Plasma Lactic Acid Raffi 1.8 (0.7-2.0) mmol/L Calcium (8.4-10.2) mg/dL Total Bilirubin (0.2-1.3) mg/dL AST (14-36) U/L ALT (4-34) U/L Alkaline Phosphatase (38-126) U/L Total Protein (6.3-8.2) g/dL Albumin (3.5-5.0) g/dL Urine Color Urine Appearance (Clear) Urine pH (5.0-8.0) Ur Specific Mallory (1.001-1.035) Urine Protein (Negative) Urine Glucose (UA) (Negative) Urine Ketones (Negative) Urine Blood (Negative) Urine Nitrite (Negative) Urine Bilirubin (Negative) Urine Urobilinogen (<2.0) mg/dL Ur Leukocyte Esterase (Negative) Urine RBC (0-5) /hpf Urine WBC (0-5) /hpf Ur Squamous Epith Cells (0-4) /hpf Urine Bacteria (None) /hpf Hyaline Casts (0-2) /lpf Urine Mucus (None) /hpf Urine Yeast (Budding) (None) /hpf Disposition <Mahamed Lang - Last Filed: 11/06/24 16:55> Is patient prescribed a controlled substance at d/c from ED?: No Time of Disposition: 23:00 <Angel Mayes - Last Filed: 11/12/24 02:38> Clinical Impression: Dehydration, RUBEN (acute kidney injury) Disposition: ADMITTED IP TO THIS HOSP Condition: Good
[2024-11-06 20:24] LABS: Bacteria,Urine Rare /hpf; Bilirubin,Urine Negative (Negative); Blood,Urine Negative (Negative); Budding Yeast,Urine Rare /hpf; Color,Urine Colorless; Glucose,Urine (UA) Negative (Negative); Hyaline Casts,Urine 35 /lpf (0-2); Ketones,Urine Negative (Negative); Leukocyte Esterase,Urine Trace (Negative); Mucus,Urine Rare /hpf; Nitrite,Urine Negative (Negative); PH, Urine 5.5 (5.0-8.0); Protein,Urine Negative (Negative); RBC,Urine <1 /hpf (0-5); Specific Gravity,Urine 1.017 (1.001-1.035); Squamous Epithelial Cell,Urine 2 /hpf (0-4); Urobilinogen,Urine <2.0 mg/dL (<2.0); WBC,Urine 2 /hpf (0-5)
[2024-11-06 22:51] LABS: Basophils # (A) 0.02 10*3/uL (0.00-0.10); Basophils % (A) 0.5 %; Eosinophils # (A) 0.19 10*3/uL (0.04-0.35); Eosinophils % (A) 4.9 %; HCT 33.6 % (37.2-46.3); HGB 11.1 g/dL (12.0-15.0); Lymphocytes # (A) 1.07 10*3/uL (0.90-5.00); Lymphocytes % (A) 27.6 %; MCH 30.5 pg (27.0-32.0); MCHC 33.0 g/dL (32.0-37.0); MCV 92.3 fL (80.0-97.0); Monocytes # (A) 0.39 10*3/uL (0.20-1.00); Monocytes % (A) 10.1 %; Neutrophils # (A) 2.19 10*3/uL (1.80-7.70); Neutrophils % (A) 56.4 %; Platelet Count 321 10*3/uL (140-440); RBC 3.64 10*6/uL (4.10-5.20); RDW 14.1 % (11.5-14.5); WBC 3.88 10*3/uL (4.50-10.00)
[2024-11-06] MEDS ORDERED: NALOXONE 0.4 MG/ML 1 ML VIAL IV PRN (22:53)
[2024-11-06 23:04] LABS: ALT 18 U/L (4-34); AST 22 U/L (14-36); African American GFR (CKD) 23 (>60 ml/min/1.73 sqM); Albumin 3.8 g/dL (3.5-5.0); Alkaline Phosphatase 76 U/L (38-126); Anion Gap 12 mmol/L; Blood Urea Nitrogen 33 mg/dL (7-17); Calcium 9.8 mg/dL (8.4-10.2); Carbon Dioxide 30 mmol/L (22-30); Chloride 95 mmol/L (98-107); Glucose 130 mg/dL (74-99); Non-African American GFR(CKD) 20 (>60 ml/min/1.73 sqM); Potassium 3.5 mmol/L (3.5-5.1); Sodium 137 mmol/L (137-145); Total Protein 6.2 g/dL (6.3-8.2)
[2024-11-06] MEDS: HYDROmorphone 1 MG/ML 1 ML SYRINGE IVP STA (23:06)
[2024-11-06] MEDS: ONDANSETRON 4 MG/2 ML VIAL IVP PRN (23:06)
[2024-11-06] MEDS: LORazepam 1 MG/0.5 ML VIAL IV STA (23:07)
[2024-11-06] MEDS: diphenhydrAMINE 50 MG/ML 1 ML VIAL IVP STA (23:07)
[2024-11-07] MEDS: HYDROmorphone 1 MG/ML 1 ML SYRINGE IVP PRN (02:34)
[2024-11-07] MEDS: diphenhydrAMINE 50 MG/ML 1 ML VIAL IVP PRN (02:34)
[2024-11-07 05:53] LABS: Basophils # (A) 0.02 10*3/uL (0.00-0.10); Basophils % (A) 0.4 %; Eosinophils # (A) 0.36 10*3/uL (0.04-0.35); Eosinophils % (A) 6.7 %; HCT 32.6 % (37.2-46.3); HGB 11.0 g/dL (12.0-15.0); Lymphocytes # (A) 0.92 10*3/uL (0.90-5.00); Lymphocytes % (A) 17.1 %; MCH 31.5 pg (27.0-32.0); MCHC 33.7 g/dL (32.0-37.0); MCV 93.4 fL (80.0-97.0); Monocytes # (A) 0.56 10*3/uL (0.20-1.00); Monocytes % (A) 10.4 %; Neutrophils # (A) 3.48 10*3/uL (1.80-7.70); Neutrophils % (A) 64.5 %; Platelet Count 315 10*3/uL (140-440); RBC 3.49 10*6/uL (4.10-5.20); RDW 14.3 % (11.5-14.5); WBC 5.39 10*3/uL (4.50-10.00)
[2024-11-07 06:08] LABS: ALT 20 U/L (4-34); African American GFR (CKD) 28 (>60 ml/min/1.73 sqM); Albumin 4.1 g/dL (3.5-5.0); Anion Gap 14 mmol/L; Blood Urea Nitrogen 34 mg/dL (7-17); Calcium 10.0 mg/dL (8.4-10.2); Carbon Dioxide 24 mmol/L (22-30); Chloride 99 mmol/L (98-107); Glucose 108 mg/dL (74-99); Non-African American GFR(CKD) 25 (>60 ml/min/1.73 sqM); Sodium 137 mmol/L (137-145); Total Protein 6.5 g/dL (6.3-8.2)
[2024-11-07 06:34] LABS: Potassium 4.7 mmol/L (3.5-5.1)
[2024-11-07 06:35] LABS: AST 31 U/L (14-36); Alkaline Phosphatase 72 U/L (38-126); Magnesium 2.3 mg/dL (1.6-2.3)
--- NOTE | 2024-11-07 13:43 | XR ---
EXAMINATION TYPE: XR chest 2V DATE OF EXAM: 11/07/2024 1:05 PM COMPARISON: Chest radiographs from 10/12/2024. CLINICAL INDICATION: Female, 59 years old with history of r/o edema; [facility] TECHNIQUE: XR chest 2V Frontal and lateral views of the chest. FINDINGS: Lungs/Pleura: There is no evidence of pleural effusion, focal consolidation, or pneumothorax. Pulmonary vascularity: Unremarkable. Heart/mediastinum: Cardiomediastinal silhouette is prominent in size. Post aortic valve repair fitzgerald es. A loop recorder projects over the left thorax over the heart. Single-lead cardiac conduction nat ce overlying the right hemithorax with lead projecting over the right ventricle. Musculoskeletal: No acute osseous pathology. There is lower spine fixation hardware is present. Other findings: None IMPRESSION: No acute cardiopulmonary disease/process. [facility], , 11/07/2024 1:40 PM
[2024-11-07] MEDS ORDERED: ACETAMINOPHEN TAB 325 MG TAB PO PRN (13:59)
[2024-11-07] MEDS: GABAPENTIN 300 MG CAP PO SCH (15:56)
[2024-11-07] MEDS: PANTOPRAZOLE 40 MG TABLET PO SCH (15:57)
[2024-11-07] MEDS: MUPIROCIN 2% OINT 22 GM TUBE TOPICAL SCH (16:06)
--- NOTE | 2024-11-07 17:18 | P.NPCON ---
History of Present Illness - Reason for Consult Consult date: 11/07/24 acute renal failure - History of Present Illness Ms. Meza is a 59yo female consulted for RUBEN. She has a pmhx of CKD stage 3a, [place], Pyoderma gangrenosum, and antiphospholipid syndrome. She complains of SOB, confusion, intermittent nausea, bilateral flank pain, and reduced urinary output the last week. She denies chest pain, vomiting, dysuria, and diarrhea. She started to have back pain a week ago, admitting to taking ib uprofen 600mg a few times a day for the last few days. During her last admission around 10/18/24, she was on IV Invanz for ESBL e.coli UTI. She was not discharged on outpt invanz. Creatinine was 3.13 on admission, and is now 2.13. No IV fluids given. No hypotension documented. Takes midodrine at home. Maintained on lasix at home. Use of ibuprofen the last several days. Past Medical History Past Medical History: Blood Disorder, Myocardial Infarction ([place]), Pulmonary Embolus ([place]), Renal Disease, Seizure Disorder Additional Past Medical History / Comment(s): Antiphospholipid antibody syndrome which causes clots and bleeding, multiple PEs, R renal artery embolism/now atrophic, CKD stage III, hypotension, hypokalemia especially w/stress, lupus, pyoderma grangrenosum, decreased pituitary function pt states d/t clot, migraine s, chonic cervical/back pain, herniated discs, RLS, vertigo, lupus, valve replacement x2. Patient states past history of C-Diff from 03/2023. last seizure last night twitching, usually with migraines or electrolyte imbalance. has had massive bleeding from xarelto Last Myocardial Infarction Date:: 08/30/2018 History of Any Multi-Drug Resistant Organisms: C-DIFF Date of last positivie culture/infection: 2023 has had three times MDRO Source:: unk Past Surgical History: Back Surgery, Breast Surgery, Cardiac Valve Replacement, Section, Cholecystectomy, Heart Catheterization, Hysterectomy, Pacemaker Additional Past Surgical History / Comment(s): pacemaker d/t bradycardia/hypotension with last one place in 2013 in [place], [place], 3 lower back surgeries, bilateral breast reduction. 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. lamenectomy Past Anesthesia/Blood Transfusion Reactions: No Reported Reaction Additional Past Anesthesia/Blood Transfusion Reaction / Comment(s): blood transfusion no issues Type of Cardiac Device: Permanent Pacemaker, Unknown Device Placement Date:: 2012 Past Psychological History: Anxiety, PTSD Additional Psychological History / Comment(s): Pt resides with her spouse who has dementia and PTSD, she states she fears him and he is becoming increasingly violent Smoking Status: Never smoker Past Alcohol Use History: Rare Past Drug Use History: Marijuana Additional Drug Use History / Comment(s): Medical Marijuana use prn per pt. refrain for 24 hours prior to procedure. - Past Family History Mother Additional Family Medical History / Comment(s): Mother at the age of 49 yrs after surgery for silicon breast implants with a leak that caused ARDS and DIC per pt (fibroid cysts) Father Family Medical History: Cancer, Hyperlipidemia, Hypertension Additional Family Medical History / Comment(s): Father is a colon cancer survivor. Medications and Allergies Home Medications Medication Instructions Recorded Confirmed Type Atorvastatin [Lipitor] 40 mg PO HS 09/24/21 11/07/24 History Sertraline [Zoloft] 200 mg PO DAILY 09/24/21 11/07/24 History Apixaban [Eliquis] 5 mg PO BID 05/29/22 11/07/24 History busPIRone HCl [Buspar] 5 mg PO BID 06/11/22 11/07/24 History Fludrocortisone [Florinef] 0.1 mg PO DAILY 09/20/22 11/07/24 History Budesonide/Glycopyr/Formoterol 2 puff INHALATION RT-BID 12/26/23 11/07/24 History [Breztri Aerosphere Inhaler] Gabapentin 600 mg PO TID 12/26/23 11/07/24 History Ondansetron [Zofran] 4 mg PO TID PRN 12/26/23 11/07/24 History HYDROcodone/APAP 7.5-325MG [[place] 1 tab PO TID 04/06/24 11/07/24 History 7.5-325] Pantoprazole [Protonix] 40 mg PO AC-BID 30 Days #60 tab 04/24/24 11/07/24 Rx Cyclobenzaprine [Flexeril] 5 mg PO TID PRN 06/18/24 11/07/24 History Metoprolol Succinate (ER) [Toprol 50 mg PO DAILY 06/27/24 11/07/24 History XL] Spironolactone 50 mg PO HS 06/27/24 11/07/24 History Hydrocortisone [Cortef] 10 mg PO BID 07/27/24 11/07/24 History Potassium Chloride ER [K-Dur 20] 20 meq PO BID tab 07/31/24 11/07/24 Rx Tiotropium 2.5 Mcg/Puff [Spiriva 2 puff INHALATION RT-DAILY each 07/31/24 11/07/24 Rx Respimat 2.5 Mcg] Colchicine 0.6 mg PO DAILY 09/20/24 11/07/24 History Diphenhydramine 50mg/Ml 50 mg IM Q6H PRN 09/20/24 11/07/24 History Fezolinetant [Veozah] 45 mg PO DAILY 09/20/24 11/07/24 History allopurinoL [Zyloprim] 300 mg PO DAILY 09/20/24 11/07/24 History Ipratropium-Albuterol Nebulize 3 ml INHALATION RT-TID 1 Days #90 09/23/24 Rx [Duoneb 0.5 mg-3 mg/3 ml Soln] each Mupirocin 2% Oint [Bactroban 2% 1 applic TOPICAL TID #30 gm 10/12/24 11/07/24 Rx Oint] Midodrine [ProAmatine] 5 mg PO AC-TID PRN 10/13/24 11/07/24 History Acetaminophen Tab [Tylenol] 650 mg PO Q6HR PRN tab 10/24/24 11/07/24 Rx Bumetanide [BUMEX] 2 mg PO BID@0900,1600 30 Days #60 10/24/24 11/07/24 Rx tab Clotrimazole/Betameth Cream 1 applic TOPICAL BID 30 Days #30 10/24/24 11/07/24 Rx [Lotrisone] each Allergies Allergy/AdvReac Type Severity Reaction Status Date / Time Penicillins Allergy Severe Anaphylaxis Verified 11/07/24 11:25 vancomycin Allergy Severe Swelling Verified 11/07/24 11:25 in lips NSAIDS (Non-Steroidal Allergy Unknown pt has Verified 11/07/24 11:25 Anti-Inflamma clotting disorder and is to not take NSAIDS cefepime Allergy Swelling Verified 11/07/24 11:25 clindamycin Allergy Anaphylaxis Verified 11/07/24 11:25 Influenza Virus Vaccines Allergy Anaphylaxis Verified 11/07/24 11:25 latex Allergy Itching Verified 11/07/24 11:25 and swelling morphine Allergy Anaphylaxis Verified 11/07/24 11:25 albuterol [From Ventolin HFA] AdvReac Rapid Verified 11/07/24 11:25 Heart Rate galcanezumab-gnlm AdvReac Confusion, Verified 11/07/24 11:25 [From Emgality Pen] increased blood pressure metoclopramide [From Reglan] AdvReac "felt like Verified 11/07/24 11:25 I needed to jump out of my skin" prochlorperazine AdvReac severe Verified 11/07/24 11:25 [From Compazine] anxiety Physical Exam Vitals: Vital Signs Temp Pulse Pulse Resp BP BP Pulse Ox 11/07/24 07:35 98.2 F 90 16 116/77 91 L 11/07/24 00:16 98.3 F 83 18 143/81 91 L 11/06/24 23:05 70 18 110/73 98 11/06/24 21:50 98 F 82 18 148/62 97 11/06/24 15:32 97.9 F 71 20 144/90 92 L Intake and Output 11/06/24 11/07/24 11/07/24 22:59 06:59 14:59 Other: Voiding Method Toilet Toilet # Voids 2 Weight 71.668 kg 71.668 kg Patient is awake, alert oriented x 3 No acute distress Examination of the heart S1 and S2 Examination of the lungs shows bilateral breath sounds are heard Abdomen is soft nontender Examination of lower extremity shows 1+ edema HEEL GOUGER exam grossly intact Results - Lab Results Most recent lab results Calcium 10.0 mg/dL (8.4-10.2) 11/07/24 04:52 Phosphorus 4.7 mg/dL (2.5-4.5) H 11/07/24 04:52 Magnesium 2.3 mg/dL (1.6-2.3) 11/07/24 04:52 11/08/24 05:26 11/08/24 05:26 Assessment and Plan Assessment: 1. RUBEN - secondary to NSAIDs, improving with holding diuretics. Has not received IV fluids. - UA is benign. - No indication of urinary retention on bladder scan. 2. Chronic Kidney Disease Stage 3a - Baseline Creatinine 1.3-1.7 - Solitary functioning kidney with right renal atrophy and cardiorenal syndrome - possible ischemic nephropathy with h/o renal artery stenosis. 3. history of renal embolism and renal atrophy with underlying antiphospholipid syndrome 4. history of pyoderma gangrenosum 5. Hypopituitarism - maintained on florinef and cortef Plan: D/c ibuprofen Order chest x-ray Continue to hold diuretics and IV fluids for now Hold flornief given mild edema Repeat labs in am Thank you for the consultation. We will continue to follow the patient during her hospitalization. Colton Talbot MD Internal Medicine PGY1 Nephrology service Patient is seen and examined Agree with resident's assessment and plan.
[2024-11-07 17:39] LABS: Cholesterol 206.00 mg/dL (0.00-200.00); HDL Cholesterol 40.80 mg/dL (40.00-60.00); LDL Cholesterol,Calculated 118.0 mg/dL (0.0-131.0); Triglycerides 236.00 mg/dL (0.00-149.00); VLDL Calculation 47.20 mg/dL (5.00-40.00)
[2024-11-07] MEDS: IPRATROPIUM-ALBUTEROL 3 ML NEB INHALATION SCH (19:54)
[2024-11-07] MEDS: SYMBICORT 160-4.5 MCG INHALER INHALATION SCH (19:55)
[2024-11-07] MEDS: APIXABAN 5 MG TAB PO SCH (21:39)
[2024-11-07] MEDS: ATORVASTATIN 40 MG TAB PO SCH (21:39)
[2024-11-07] MEDS: HYDROCORTISONE 10 MG TAB PO SCH (21:40)
[2024-11-07] MEDS: CYCLOBENZAPRINE 5 MG TAB PO PRN (21:52)
--- NOTE | 2024-11-07 23:07 | P.CONS ---
History of Present Illness - Reason for Consult Consult date: 11/07/24 Left leg wound Requesting physician: Franklin Hassan - Chief Complaint Abnormal blood work x 1 day - History of Present Illness Patient is a 59-year-old female with a past medical history significant for [place] PE seizure disorder in this patient who was recently admitted at this facility and did have a traumatic wound to the left posterior leg area patient did have a surgical debridement with removal of the necrotic subcutaneous tissue and did have deep cultures were negative patient did received daptomycin and Invanz while in the hospital however with the culture negative overall wound base looks clean patient was advised to go home on antibiotics patient apparently has been started on Bactrim DS in the outpatient setting by her primary care physician and was noticed to have a elevated creatinine for the patient was advised to go to the hospital patient denies having any fever or any chills patient has been breathing comfortably currently on a 2 L nasal cannula oxygen denies any headache no chest pain shortness of breath occasional cough no abdominal pain or diarrhea patient mention the wound VAC was not working as she removed it currently treating the left leg wound with just simple dressing did have mild aching pain but denies any significant w orsening pain redness or any drainage or presentation to the hospital the patient was afebrile no fever have recorded subsequently patient did have a white count of 3.8 repeat is 5.3 BUN and creatinine has been mildly elevated liver enzymes are normal urine has been negative patient has been admitted to the hospital infectious disease was consulted regarding left leg wound Review of Systems Positive point and negatives has been mentioned in the HPI, complete review of systems was performed and all other systems are negative Past Medical History Past Medical History: Blood Disorder, Myocardial Infarction ([place]), Pulmonary Embo edith ([place]), Renal Disease, Seizure Disorder Additional Past Medical History / Comment(s): Antiphospholipid antibody syndrome which causes clots and bleeding, multiple PEs, R renal artery embolism/now atrophic, CKD stage III, hypotension, hypokalemia especially w/stress, lupus, pyoderma grangrenosum, 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 Patient states past history of C-Diff from 03/2023. last seizure last night twitching, usually with migraines or electrolyte imbalance. has had massive bleeding from xarelto Last Myocardial Infarction Date:: 08/30/2018 History of Any Multi-Drug Resistant Organisms: C-DIFF Year Discovered:: 2023 has had three times MDRO Source:: unk Past Surgical History: Back Surgery, Breast Surgery, Cardiac Valve Replacement, Section, Cholecystectomy, Heart Catheterization, Hysterectomy, Pacemaker Additional Past Surgical History / Comment(s): pacemaker d/t bradycardia/hypotension with last one place in 2013 in [place], [place], 3 lower back surgeries, bilateral breast reduction. 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. lamenectomy Past Anesthesia/Blood Transfusion Reactions: No Reported Reaction Additional Past Anesthesia/Blood Transfusion Reaction / Comm: blood transfusion no issues Type of Cardiac Device: Permanent Pacemaker, Unknown Device Placement Date:: 2012 Past Psychological History: Anxiety, PTSD Additional Psychological History / Comment(s): Pt resides with her spouse who has dementia and PTSD, she states she fears him and he is becoming increasingly violent Smoking Status: Never smoker Past Alcohol Use History: Rare Past Drug Use History: Marijuana Additional Drug Use History / Comment(s): Medical Marijuana use prn per pt. refrain for 24 hours prior to procedure. - Past Family History Mother Additional Family Medical History / Comment(s): Mother at the age of 49 yrs after surgery for silicon breast implants with a leak that caused ARDS and DIC per pt (fibroid cysts) Father Family Medical History: Cancer, Hyperlipidemia, Hypertension Additional Family Medical History / Comment(s): Father is a colon cancer survivor. Medications and Allergies Home Medications Medication Instructions Recorded Confirmed Type Atorvastatin [Lipitor] 40 mg PO HS 09/24/21 11/07/24 History Sertraline [Zoloft] 200 mg PO DAILY 09/24/21 11/07/24 History Apixaban [Eliquis] 5 mg PO BID 05/29/22 11/07/24 History busPIRone HCl [Buspar] 5 mg PO BID 06/11/22 11/07/24 History Fludrocortisone [Florinef] 0.1 mg PO DAILY 09/20/22 11/07/24 History Budesonide/Glycopyr/Formoterol 2 puff INHALATION RT-BID 12/26/23 11/07/24 History [Breztri Aerosphere Inhaler] Gabapentin 600 mg PO TID 12/26/23 11/07/24 History Ondansetron [Zofran] 4 mg PO TID PRN 12/26/23 11/07/24 History HYDROcodone/APAP 7.5-325MG [[place] 1 tab PO TID 04/06/24 11/07/24 History 7.5-325] Pantoprazole [Protonix] 40 mg PO AC-BID 30 Days #60 tab 04/24/24 11/07/24 Rx Cyclobenzaprine [Flexeril] 5 mg PO TID PRN 06/18/24 11/07/24 History Metoprolol Succinate (ER) [Toprol 50 mg PO DAILY 06/27/24 11/07/24 History XL] Spironolactone 50 mg PO HS 06/27/24 11/07/24 History Hydrocortisone [Cortef] 10 mg PO BID 07/27/24 11/07/24 History Potassium Chloride ER [K-Dur 20] 20 meq PO BID tab 07/31/24 11/07/24 Rx Tiotropium 2.5 Mcg/Puff [Spiriva 2 puff INHALATION RT-DAILY each 07/31/24 11/07/24 Rx Respimat 2.5 Mcg] Colchicine 0.6 mg PO DAILY 09/20/24 11/07/24 History Diphenhydramine 50mg/Ml 50 mg IM Q6H PRN 09/20/24 11/07/24 History Fezolinetant [Veozah] 45 mg PO DAILY 09/20/24 11/07/24 History allopurinoL [Zyloprim] 300 mg PO DAILY 09/20/24 11/07/24 History Ipratropium-Albuterol Nebulize 3 ml INHALATION RT-TID 1 Days #90 09/23/24 11/07/24 Rx [Duoneb 0.5 mg-3 mg/3 ml Soln] each Mupirocin 2% Oint [Bactroban 2% 1 applic TOPICAL TID #30 gm 10/12/24 11/07/24 Rx Oint] Midodrine [ProAmatine] 5 mg PO AC-TID PRN 10/13/24 11/07/24 History Acetaminophen Tab [Tylenol] 650 mg PO Q6HR PRN tab 10/24/24 11/07/24 Rx Bumetanide [BUMEX] 2 mg PO BID@0900,1600 30 Days #60 10/24/24 11/07/24 Rx tab Clotrimazole/Betameth Cream 1 applic TOPICAL BID 30 Days #30 10/24/24 11/07/24 Rx [Lotrisone] each Allergies Allergy/AdvReac Type Severity Reaction Status Date / Time Penicillins Allergy Severe Anaphylaxis Verified 11/07/24 11:25 vancomycin Allergy Severe Swelling Verified 11/07/24 11:25 in lips NSAIDS (Non-Steroidal Allergy Unknown pt has Verified 11/07/24 11:25 Anti-Inflamma clotting disorder and is to not take NSAIDS cefepime Allergy Swelling Verified 11/07/24 11:25 clindamycin Allergy Anaphylaxis Verified 11/07/24 11:25 Influenza Virus Vaccines Allergy Anaphylaxis Verified 11/07/24 11:25 latex Allergy Itching Verified 11/07/24 11:25 and swelling morphine Allergy Anaphylaxis Verified 11/07/24 11:25 albuterol [From Ventolin HFA] AdvReac Rapid Verified 11/07/24 11:25 Heart Rate galcanezumab-gnlm AdvReac Confusion, Verified 11/07/24 11:25 [From Emgality Pen] increased blood pressure metoclopramide [From Reglan] AdvReac "felt like Verified 11/07/24 11:25 I needed to jump out of my skin" prochlorperazine AdvReac severe Verified 11/07/24 11:25 [From Compazine] anxiety Physical Exam Vitals: Vital Signs Temp Pulse Pulse Resp BP BP Pulse Ox 11/07/24 12:54 98.1 F 72 16 144/67 92 L 11/07/24 07:35 98.2 F 90 16 116/77 91 L 11/07/24 00:16 98.3 F 83 18 143/81 91 L 11/06/24 23:05 70 18 110/73 98 11/06/24 21:50 98 F 82 18 148/62 97 Intake and Output 11/07/24 11/07/24 11/07/24 06:59 14:59 22:59 Intake Total 240 Balance 240 Intake: Oral 240 Other: Voiding Method Toilet Toilet # Voids 2 Weight 71.668 kg GENERAL DESCRIPTION: Middle-age female lying in bed, no distress. No tachypnea or accessory muscle of respiration use. HEENT: Shows Pallor , no scleral icterus. Oral mucous membrane is dry. No pharyngeal erythema or thrush NECK: Trachea central, no thyromegaly. LUNGS: Unlabored breathing. Clear to auscultation anteriorly. No wheeze or crackle. HEART: S1, S2, regular rate and rhythm. No loud murmur ABDOMEN: Soft, no tenderness , guarding or rigidity, no organomegaly EXTREMITIES: Left posterior leg did have wound with some slough tissue no surrounding redness or any foul-smelling drainage SKIN: No rash, no masses palpable. NEUROLOGICAL: The patient is awake, alert, oriented x3, mood and affect normal. Results CBC & Chem 7: 11/07/24 04:52 11/07/24 04:52 Labs: Abnormal Lab Results - Last 24 Hours (Table) 11/06/24 11/06/24 11/06/24 Range/Units 19:49 22:33 22:33 WBC 3.88 L (4.50-10.00) 10*3/uL RBC 3.64 L (4.10-5.20) 10*6/uL Hgb 11.1 L (12.0-15.0) g/dL Hct 33.6 L (37.2-46.3) % Immature Gran # (0.00-0.04) 10*3/uL Eosinophils # (0.04-0.35) 10*3/uL Chloride 95 L (98-107) mmol/L BUN 33 H (7-17) mg/dL Creatinine 2.52 H (0.52-1.04) mg/dL Glucose 130 H (74-99) mg/dL Phosphorus (2.5-4.5) mg/dL Total Protein 6.2 L (6.3-8.2) g/dL Ur Leukocyte Esterase Trace H (Negative) Urine Bacteria Rare H (None) /hpf Hyaline Casts 35 H (0-2) /lpf Urine Mucus Rare H (None) /hpf Urine Yeast (Budding) Rare H (None) /hpf 11/07/24 11/07/24 Range/Units 04:52 04:52 WBC (4.50-10.00) 10*3/uL RBC 3.49 L (4.10-5.20) 10*6/uL Hgb 11.0 L (12.0-15.0) g/dL Hct 32.6 L (37.2-46.3) % Immature Gran # 0.05 H (0.00-0.04) 10*3/uL Eosinophils # 0.36 H (0.04-0.35) 10*3/uL Chloride (98-107) mmol/L BUN 34 H (7-17) mg/dL Creatinine 2.13 H (0.52-1.04) mg/dL Glucose 108 H (74-99) mg/dL Phosphorus 4.7 H (2.5-4.5) mg/dL Total Protein (6.3-8.2) g/dL Ur Leukocyte Esterase (Negative) Urine Bacteria (None) /hpf Hyaline Casts (0-2) /lpf Urine Mucus (None) /hpf Urine Yeast (Budding) (None) /hpf Assessment and Plan (1) Leg wound, left Current Visit: Yes Status: Acute Code(s): S81.802A - UNSPECIFIED OPEN WOUND, LEFT LOWER LEG, INITIAL ENCOUNTER SNOMED Code(s): 55132273818911437 (2) Allergy to multiple antibiotics Current Visit: No Status: Acute Code(s): Z88.1 - ALLERGY STATUS TO OTHER ANTIBIOTIC AGENTS SNOMED Code(s): 550913725 Plan: 1patient who do have a recent history of traumatic wound to the left lower extremity and this patient was status post surgical debridement in the left lower extremity culture were negative now beginning to the hospital with worsening kidney function being managed by admitting and nephrology team patient is not ready any fever white count has been normal wound base did have some slough treatment no surrounding redness or foul-smelling drainage clinical suspicion low for wound infection and no need for antibiotic therapy 2-patient with multiple antibiotic ALLERGIES that would limit the number of ant ibiotic safe to use 3-[facility] by moist dressing change daily We will follow on clinical condition and cultures to further adjust medication if needed Thank you for this consultation we will follow the patient along with you Dictation was produced using [employer]id[employer] software. please excuse any grammatical, word or spelling errors. Time with Patient: Greater than 30
[2024-11-08] MEDS: SODIUM CHLORIDE 0.9% 1,000 ML IV SCH (00:31)
--- NOTE | 2024-11-08 00:48 | HP ---
HISTORY AND PHYSICAL SUBJECTIVE: This is a 59-year-old white female with a GFR of 15. Recently, she came in the hospital for severe acute kidney injury, severe dehydration, [id number] renal failure stage 4 to 5. Diuretics were held. IV fluids given. Cardiac medications were stopped. She has been treated with lower extremity wound on the left leg with a wound VAC. She is getting home wound care. HOME MEDICINES: 1. Lipitor 40 daily. 2. Zoloft 200 daily. 3. Eliquis 5 b.i.d. 4. BuSpar 5 b.i.d. 5. Florinef 0.1 mg daily. 6. Breztri 2 puffs b.i.d. 7. Metoprolol ER 50 daily. 8. Flexeril 5 t.i.d. 9. Spironolactone 50 daily. 10.Cortef 10 b.i.d. 11.Colchicine 0.6 mg daily. 12.ProAmatine 5 mg before meals t.i.d. 13.Zyloprim 300 daily. 14. 42 mg daily. ALLERGIES: Please see further orders. PAST MEDICAL HISTORY: Myocardial infarction, blood disorder, PE, chronic renal disease, seizure disorder, lupus, hypervascular lipid syndrome, antiphospholipid antibody syndrome, multiple seizures and pseudoseizures, history of migraines, embolisms, vertigo. FAMILY HISTORY: Father with hypertension, dyslipidemia, cancer. Mother at age 49. PHYSICAL EXAMINATION: VITAL SIGNS: Stable. Afebrile. Temperature 97-98, pulse 70s to 80s, respiratory rate 18 to 20, blood pressure is 140/60, O2 92 to 97. CARDIOVASCULAR: S1, S2. LUNGS: Scattered wheeze x4. HEMATOLOGY: Negative Homans. ABDOMEN: Soft. PSYCH: Fair mood and affect. NEUROLOGIC: Cranial nerves intact. PSYCH: Fair mood and affect. EXTREMITIES: Wound VAC on the left inner thigh. ASSESSMENT: [id number]-[id number]-[id number] renal insufficiency secondary to acute kidney injury, dehydration. PROGNOSIS: Extremely guarded, rehydrate and hold diuretics. Prognosis is guarded, rehydrate. Please see further orders. Wound care for the left leg. MMODL / IJN: [id number] /
[2024-11-08] MEDS: LORazepam 1 MG/0.5 ML VIAL IV PRN (00:53)
[2024-11-08 07:57] LABS: Basophils # (A) 0.02 X 10*3/uL (0.00-0.10); Basophils % (A) 0.5 %; Eosinophils # (A) 0.09 X 10*3/uL (0.04-0.35); Eosinophils % (A) 2.5 %; HCT 32.5 % (37.2-46.3); HGB 10.3 g/dL (12.0-15.0); Immature Grans, Automated 0.50 %; Lymphocytes # (A) 0.54 X 10*3/uL (0.90-5.00); Lymphocytes % (A) 14.8 %; MCH 31.1 pg (27.0-32.0); MCHC 31.7 g/dL (32.0-37.0); MCV 98.2 FL (80.0-97.0); Monocytes # (A) 0.39 X 10*3/uL (0.20-1.00); Monocytes % (A) 10.7 %; NRBC Per 100 WBC 0 X 10*3/uL (0.00-0.01); Neutrophils # (A) 2.60 X 10*3/uL (1.80-7.70); Neutrophils % (A) 71.0 %; Platelet Count 245 X 10*3/uL (140-440); RBC 3.31 X 10*6/uL (4.10-5.20); RDW 14.4 % (11.5-14.5); WBC 3.66 X 10*3/uL (4.50-10.00)
[2024-11-08 08:00] VITALS: RESP 16
[2024-11-08] MEDS: TIOTROPIUM 2.5 MCG INHALER INHALATION SCH (08:04)
[2024-11-08] MEDS: IPRATROPIUM-ALBUTEROL 3 ML NEB INHALATION SCH (08:04)
[2024-11-08] MEDS: diphenhydrAMINE 50 MG/ML 1 ML VIAL IVP PRN (08:06)
[2024-11-08] MEDS: METOPROLOL SUCCINATE (ER) 50 MG TAB.ER.24H PO SCH (08:11)
[2024-11-08] MEDS: SERTRALINE 100 MG TAB PO SCH (08:11)
[2024-11-08] MEDS: COLCHICINE 0.6 MG EACH PO SCH (08:12)
[2024-11-08] MEDS: FLUDROCORTISONE 0.1 MG TAB PO SCH (08:12)
[2024-11-08 08:31] LABS: ALT 19 U/L (8-44); AST 19 U/L (13-35); Albumin 3.5 g/dL (3.8-4.9); Albumin/Globulin Ratio 1.75 Ratio (1.60-3.17); Alkaline Phosphatase 73 U/L (41-126); Anion Gap 10.00 mmol/L (4.00-12.00); BUN/Creat Ratio 12.07 Ratio (12.00-20.00); Blood Urea Nitrogen 16.9 mg/dL (9.0-27.0); Calcium 8.9 mg/dL (8.7-10.3); Carbon Dioxide 27.0 mmol/L (21.6-31.8); Chloride 100 mmol/L (96-109); Globulin 2.0 g/dL (1.6-3.3); Glucose 180 mg/dL (70-110); Potassium 4.4 mmol/L (3.5-5.5); Sodium 137 mmol/L (135-145); Total Protein 5.5 g/dL (6.2-8.2)
[2024-11-08 12:42] VITALS: BP 151/82; PULSE 78; TEMP 98.6
--- NOTE | 2024-11-08 13:47 | P.PN ---
Subjective Progress Note Date: 11/08/24 Patient consulted for acute kidney injury. This morning she complains of increased puffiness and swelling throughout her whole body. She also complains of significant lower right back pain that is tender to touch, which she believes could be associated with prior back surgery. She denies shortness of breath, chest pain, or abdominal pain. She has not voided since last night. She received an additional fluid bolus last night. No indication of urinary retention from bladder scan yesterday. Creatinine has improved to 1.4 this morning. Blood pressure is maintained on midodrine. Objective - Vital Signs Vital signs: Vital Signs Temp 98.6 F 11/08/24 12:41 Pulse 78 11/08/24 12:41 Resp 16 11/08/24 12:41 BP 151/82 11/08/24 12:41 Pulse Ox 96 11/08/24 12:41 FiO2 Intake & Output 11/07/24 11/08/24 11/08/24 18:59 06:59 18:59 Intake Total 1740 1050 1500 Output Total 167 Balance 1573 1050 1500 Intake: Oral 1740 1500 Other 1050 Output: Post Void Residual 167 Other: Voiding Method Toilet Toilet Toilet # Voids 4 1 3 # Bowel Movements 3 - Exam Patient is awake, alert oriented x 3 No acute distress Examination of the heart S1 and S2 Examination of the lungs shows bilateral breath sounds are heard Abdomen is soft nontender Examination upper and lower extremities shows 2+ edema ARC CUTTER exam grossly intact - Labs CBC & Chem 7: 11/08/24 05:26 11/08/24 05:26 Labs: Abnormal Lab Results - Last 24 Hours (Table) 11/07/24 11/07/24 11/08/24 Range/Units 05:42 11:35 05:26 WBC 3.66 L (4.50-10.00) X 10*3/uL RBC 3.31 L (4.10-5.20) X 10*6/uL Hgb 10.3 L (12.0-15.0) g/dL Hct 32.5 L (37.2-46.3) % MCV 98.2 H (80.0-97.0) FL MCHC 31.7 L (32.0-37.0) g/dL Lymphocytes # 0.54 L (0.90-5.00) X 10*3/uL ESR 37 H (0-30) mm/Hr Est GFR (CKD-EPI) (>=60) Glucose (70-110) mg/dL Total Bilirubin (0.3-1.2) mg/dL Total Protein (6.2-8.2) g/dL Albumin (3.8-4.9) g/dL Triglycerides 236.00 H (0.00-149.00) mg/dL Cholesterol 206.00 H (0.00-200.00) mg/dL VLDL Cholesterol, Calc 47.20 H (5.00-40.00) mg/dL 11/08/24 Range/Units 05:26 WBC (4.50-10.00) X 10*3/uL RBC (4.10-5.20) X 10*6/uL Hgb (12.0-15.0) g/dL Hct (37.2-46.3) % MCV (80.0-97.0) FL MCHC (32.0-37.0) g/dL Lymphocytes # (0.90-5.00) X 10*3/uL ESR (0-30) mm/Hr Est GFR (CKD-EPI) 43 L (>=60) Glucose 180 H (70-110) mg/dL Total Bilirubin <0.2 L (0.3-1.2) mg/dL Total Protein 5.5 L (6.2-8.2) g/dL Albumin 3.5 L (3.8-4.9) g/dL Triglycerides (0.00-149.00) mg/dL Cholesterol (0.00-200.00) mg/dL VLDL Cholesterol, Calc (5.00-40.00) mg/dL Assessment and Plan Assessment: 1. RUBEN - secondary to NSAIDs, improved with holding diuretics. Did not receive IV fluids on admission. Received one fluid bolus 11/07/24 evening. - UA is benign. - No indication of urinary retention on bladder scan - Creatinine improved to 1.4, her baseline 2. Chronic Kidney Disease Stage 3a - Baseline Creatinine 1.3-1.7 - Solitary functioning kidney with right renal atrophy and cardiorenal syndrome - possible ischemic nephropathy with h/o renal artery stenosis. 3. history of renal artery embolism and renal atrophy with underlying antiphospholipid syndrome 4. history of pyoderma gangrenosum 5. 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 Agree with resident's findings, assessment and plan.
[2024-11-08] MEDS: FUROSEMIDE 10 MG/ML 4 ML VIAL IV STA (14:26)
--- NOTE | 2024-11-09 03:12 | DS ---
DISCHARGE SUMMARY SUBJECTIVE: A 59-year-old white female, was admitted for severe dehydration, prerenal acute kidney, acute tubular necrosis secondary to renal failure secondary to severe dehydration, is rehydrated with fluids and creatinine went from 12 to 15. Her GFR up to 43 prior to discharge. She was also treated with she has had on her left leg for multiple days. Kidney function improved. She was stabilized and she was sent home in stable condition without diuretics. Last set of vitals, temperature 98.6, pulse 70, respiratory rate 16, blood pressure 131/82, and saturating 96% on room air. Continue current treatment for rehydration, off diuretics. Medications adjusted. Follow up outpatient. Condition stable. Prognosis guarded. Ambulate as tolerated. MMODL / IJN: [id number] /
--- NOTE | 2024-11-09 15:16 | P.PN ---
Subjective Progress Note Date: 11/08/24 Principal diagnosis: Reason for follow-up is left posterior leg and right ankle wound Patient is a 59-year-old female with a past medical history significant for FL PE seizure disorder in this patient who was recently admitted at this facility and did have a traumatic wound to the left posterior leg area patient did have a surgical debridement with removal of the necrotic subcutaneous tissue culture negative will discharge with no antibiotics apparently has received Bactrim DS in the outpatient setting from the [facility] with worsening kidney function ID was consulted for lower extremity wounds. On today's evaluation that is 11/08/2024,the patient remains to be afebrile, patient is on room air not requiring supplemental oxygen and denies any sh ortness of breath no chest pain or cough.Patient denies having any nausea or vomiting, no abdominal pain and no diarrhea has been reported denies any worsening pain to bilateral lower extremity wound area. Patient white count is 3.66, creatinine is down to 1.4 Objective - Vital Signs Vital signs: Vital Signs Temp 98.6 F 11/08/24 12:41 Pulse 78 11/08/24 12:41 Resp 16 11/08/24 12:41 BP 151/82 11/08/24 12:41 Pulse Ox 96 11/08/24 12:41 FiO2 Intake & Output 11/07/24 11/08/24 11/08/24 18:59 06:59 18:59 Intake Total 1740 1050 1740 Output Total 167 Balance 1573 1050 1740 Intake: Oral 1740 1740 Other 1050 Output: Post Void Residual 167 Other: Voiding Method Toilet Toilet Toilet # Voids 4 1 3 # Bowel Movements 3 - Exam Middle-age female lying in bed in no distress Breathing comfortably Left posterior leg wound did have a slough tissue no surrounding redness or drainage Right ankle wound has opened up with minimal slough. No surrounding redness or drainage - Labs CBC & Chem 7: 11/08/24 05:26 11/08/24 05:26 Labs: Abnormal Lab Results - Last 24 Hours (Table) 11/07/24 11/07/24 11/08/24 Range/Units 05:42 11:35 05:26 WBC 3.66 L (4.50-10.00) X 10*3/uL RBC 3.31 L (4.10-5.20) X 10*6/uL Hgb 10.3 L (12.0-15.0) g/dL Hct 32.5 L (37.2-46.3) % MCV 98.2 H (80.0-97.0) FL MCHC 31.7 L (32.0-37.0) g/dL Lymphocytes # 0.54 L (0.90-5.00) X 10*3/uL ESR 37 H (0-30) mm/Hr Est GFR (CKD-EPI) (>=60) Glucose (70-110) mg/dL Total Bilirubin (0.3-1.2) mg/dL Total Protein (6.2-8.2) g/dL Albumin (3.8-4.9) g/dL Triglycerides 236.00 H (0.00-149.00) mg/dL Cholesterol 206.00 H (0.00-200.00) mg/dL VLDL Cholesterol, Calc 47.20 H (5.00-40.00) mg/dL 11/08/24 Range/Units 05:26 WBC (4.50-10.00) X 10*3/uL RBC (4.10-5.20) X 10*6/uL Hgb (12.0-15.0) g/dL Hct (37.2-46.3) % MCV (80.0-97.0) FL MCHC (32.0-37.0) g/dL Lymphocytes # (0.90-5.00) X 10*3/uL ESR (0-30) mm/Hr Est GFR (CKD-EPI) 43 L (>=60) Glucose 180 H (70-110) mg/dL Total Bilirubin <0.2 L (0.3-1.2) mg/dL Total Protein 5.5 L (6.2-8.2) g/dL Albumin 3.5 L (3.8-4.9) g/dL Triglycerides (0.00-149.00) mg/dL Cholesterol (0.00-200.00) mg/dL VLDL Cholesterol, Calc (5.00-40.00) mg/dL Assessment and Plan (1) Leg wound, left Status: Acute Code(s): S81.802A - UNSPECIFIED OPEN WOUND, LEFT LOWER LEG, INITIAL ENCOUNTER SNOMED Code(s): 28028977159180076 (2) Allergy to multiple antibiotics Status: Acute Code(s): Z88.1 - ALLERGY STATUS TO OTHER ANTIBIOTIC AGENTS SNOMED Code(s): 068704824 Plan: 1patient who do have a recent history of traumatic wound to the left lower extremity and this patient was status post surgical debridement in the left lower extremity culture were negative now beginning to the hospital with worsening kidney function being managed by admitting and nephrology team patient is not ready any fever white count has been normal wound base did have some slough treatment no surrounding redness or foul-smelling drainage clinical suspicion low for wound infection and no need for antibiotic therapy 2-patient with multiple antibiotic ALLERGIES that would limit the number of antibiotic safe to use 3-will recommend local wound care with the Medihoney followed by moist dressing change daily and is no need for any systemic antibiotic therapy although antibiotic on discharge Dictation was produced using [employer] dictation software. please excuse any grammatical, word or spelling errors.
== END 2024-11-08 16:57 | disposition home or self-care (01) ==
LOC: EC 14:53 → 5NMEDONC 22:55
PROVIDERS: ADMIT Family Medicine; ATTEND Family Medicine
DX: N17.0 Acute kidney failure with tubular necrosis (principal); T39.395A Adverse effect of other nonsteroidal anti-inflammatory drugs [NSAID], initial encounter; E86.0 Dehydration; E23.0 Hypopituitarism; S81.802A Unspecified open wound, left lower leg, initial encounter; S91.001A Unspecified open wound, right ankle, initial encounter; X58.XXXA Exposure to other specified factors, initial encounter; I13.10 Hypertensive heart and chronic kidney disease without heart failure, with stage 1 through stage 4 chronic kidney disease, or unspecified chronic kidney disease; N18.31 Chronic kidney disease, stage 3a; D68.61 Antiphospholipid syndrome; I25.2 Old myocardial infarction; F41.9 Anxiety disorder, unspecified; G25.81 Restless legs syndrome; G40.909 Epilepsy, unspecified, not intractable, without status epilepticus; Z86.711 Personal history of pulmonary embolism; Z79.01 Long term (current) use of anticoagulants; Z79.52 Long term (current) use of systemic steroids; Z79.899 Other long term (current) drug therapy; Z88.1 Allergy status to other antibiotic agents; Z95.2 Presence of prosthetic heart valve; Z79.891 Long term (current) use of opiate analgesic; Z88.0 Allergy status to penicillin; Z88.5 Allergy status to narcotic agent; Z88.8 Allergy status to other drugs, medicaments and biological substances; Z88.7 Allergy status to serum and vaccine; Z91.040 Latex allergy status
CPT/HCPCS: 96376 ×2; 96361; 96375 ×3; 96374; 99284; 36415; 94640 ×3; 94760; 93005; 80061; 80053 ×3; 85652; 83605; 83735; 84100; 85025 ×3; 81001; 71046; G0378 ×3; J2060; J1200 ×2; J2405; J1171 ×3; J1938

== ENCOUNTER → 2024-11-06 | Outpatient (CLI) | payer MEDICARE ==
[2024-11-06 13:02] LABS: Basophils # (A) 0.03 10*3/uL (0.00-0.10); Basophils % (A) 0.6 %; Eosinophils # (A) 0.18 10*3/uL (0.04-0.35); Eosinophils % (A) 3.6 %; HCT 35.6 % (37.2-46.3); HGB 11.9 g/dL (12.0-15.0); Lymphocytes # (A) 1.23 10*3/uL (0.90-5.00); Lymphocytes % (A) 24.9 %; MCH 31.6 pg (27.0-32.0); MCHC 33.4 g/dL (32.0-37.0); MCV 94.7 fL (80.0-97.0); Monocytes # (A) 0.56 10*3/uL (0.20-1.00); Monocytes % (A) 11.3 %; Neutrophils # (A) 2.93 10*3/uL (1.80-7.70); Neutrophils % (A) 59.4 %; Platelet Count 314 10*3/uL (140-440); RBC 3.76 10*6/uL (4.10-5.20); RDW 14.2 % (11.5-14.5); WBC 4.94 10*3/uL (4.50-10.00)
[2024-11-06 13:19] LABS: ALT 20 U/L (4-34); African American GFR (CKD) 18 (>60 ml/min/1.73 sqM); Albumin/Globulin Ratio 1.7; Anion Gap 15 mmol/L; Blood Urea Nitrogen 41 mg/dL (7-17); Calcium 9.5 mg/dL (8.4-10.2); Carbon Dioxide 25 mmol/L (22-30); Chloride 97 mmol/L (98-107); Globulin 2.6 g/dL; Glucose 77 mg/dL (74-99); Non-African American GFR(CKD) 15 (>60 ml/min/1.73 sqM); Sodium 137 mmol/L (137-145)
[2024-11-06 13:28] LABS: AST 36 U/L (14-36); Albumin 4.3 g/dL (3.5-5.0); Alkaline Phosphatase 64 U/L (38-126); NT-Pro-B-Type Natriuretic Pept 2240 pg/mL; Potassium 4.0 mmol/L (3.5-5.1); Total Protein 6.9 g/dL (6.3-8.2)
== END | disposition home or self-care (01) ==
LOC: LABWHC1 12:08
PROVIDERS: ATTEND Family Medicine
DX: I10 Essential (primary) hypertension (principal); B89 Unspecified parasitic disease; Z79.899 Other long term (current) drug therapy
CPT/HCPCS: 36415; 80053; 80061; 83036; 83880; 84443; 85025

== ENCOUNTER 2024-11-16 22:28 | Observation (INO) | payer MEDICARE ==
[2024-11-17] MEDS: HYDROmorphone 1 MG/ML 1 ML SYRINGE IVP STA (00:18)
[2024-11-17] MEDS: ONDANSETRON 4 MG/2 ML VIAL IVP STA (00:20)
[2024-11-17 00:22] LABS: Basophils # (A) 0.02 10*3/uL (0.00-0.10); Basophils % (A) 0.3 %; Eosinophils # (A) 0.08 10*3/uL (0.04-0.35); Eosinophils % (A) 1.1 %; HCT 35.2 % (37.2-46.3); HGB 11.6 g/dL (12.0-15.0); Lymphocytes # (A) 0.99 10*3/uL (0.90-5.00); Lymphocytes % (A) 14.2 %; MCH 31.8 pg (27.0-32.0); MCHC 33.0 g/dL (32.0-37.0); MCV 96.4 fL (80.0-97.0); Monocytes # (A) 0.61 10*3/uL (0.20-1.00); Monocytes % (A) 8.8 %; Neutrophils # (A) 5.24 10*3/uL (1.80-7.70); Neutrophils % (A) 75.2 %; Platelet Count 250 10*3/uL (140-440); RBC 3.65 10*6/uL (4.10-5.20); RDW 14.4 % (11.5-14.5); WBC 6.97 10*3/uL (4.50-10.00)
[2024-11-17 00:24] LABS: ALT 19 U/L (4-34); AST 32 U/L (14-36); African American GFR (CKD) 41 (>60 ml/min/1.73 sqM); Albumin 3.8 g/dL (3.5-5.0); Alkaline Phosphatase 81 U/L (38-126); Anion Gap 9 mmol/L; Blood Urea Nitrogen 27 mg/dL (7-17); Calcium 9.2 mg/dL (8.4-10.2); Carbon Dioxide 28 mmol/L (22-30); Chloride 100 mmol/L (98-107); Glucose 110 mg/dL (74-99); Magnesium 2.0 mg/dL (1.6-2.3); Non-African American GFR(CKD) 35 (>60 ml/min/1.73 sqM); Potassium 3.8 mmol/L (3.5-5.1); Sodium 137 mmol/L (137-145); Total Protein 6.1 g/dL (6.3-8.2)
--- NOTE | 2024-11-17 01:19 | US ---
EXAM: US Duplex Left Upper Extremity Veins CLINICAL HISTORY: ITS.REASON US Reason: swelling TECHNIQUE: Real-time duplex ultrasound scan of the left upper extremity veins integrating B-mode two-dimensional vascular structure, Doppler spectral analysis, color flow Doppler imaging and compression. COMPARISON: No relevant prior studies available. FINDINGS: Deep veins: Unremarkable. No DVT in the internal jugular, subclavian, axillary, brachial, radial, or ulnar veins. The veins demonstrate normal color flow, are normally compressible, with normal phasic flow and/or augmentation response. Superficial veins: Unremarkable. No thrombus in the visualized basilic and cephalic veins. Soft tissues: No acute findings. IMPRESSION: Normal left upper extremity duplex venous ultrasound.
--- NOTE | 2024-11-17 02:14 | XR ---
EXAM: XR Left Hand Complete, 3 or More Views CLINICAL HISTORY: ITS.REASON XR Reason: infection TECHNIQUE: Frontal, lateral and oblique views of the left hand. COMPARISON: No relevant prior studies available. FINDINGS: Bones/joints: Unremarkable. No acute fracture. No dislocation. Soft tissues: Diffuse soft tissue swelling of the forearm, hand, and fingers. No soft tissue gas. No radiopaque foreign body. IMPRESSION: Diffuse soft tissue swelling of the forearm, hand, and fingers. No soft tissue gas.
--- NOTE | 2024-11-17 02:21 | ED ---
General Adult HPI - General Chief complaint: Skin/Abscess/Foreign Body Stated complaint: L Arm Swelling Source: patient Mode of arrival: ambulatory Limitations: no limitations - History of Present Illness Initial comments: 59-year-old female well-known to the emergency department who presents today with left arm swelling. States that the swelling started today. She noticed an open wound on her left thumb. States when she was recently admitted she had an IV in this area. Denies fevers. Has multiple drug allergies. No other alleviating, precipitating modifying factors - Related Data Home Medications Medication Instructions Recorded Confirmed Atorvastatin [Lipitor] 40 mg PO HS 09/24/21 11/07/24 Sertraline [Zoloft] 200 mg PO DAILY 09/24/21 11/07/24 Apixaban [Eliquis] 5 mg PO BID 05/29/22 11/07/24 busPIRone HCl [Buspar] 5 mg PO BID 06/11/22 11/07/24 Fludrocortisone [Florinef] 0.1 mg PO DAILY 09/20/22 11/07/24 Budesonide/Glycopyr/Formoterol 2 puff INHALATION RT-BID 12/26/23 11/07/24 [Breztri Aerosphere Inhaler] Gabapentin 600 mg PO TID 12/26/23 11/07/24 Ondansetron [Zofran] 4 mg PO TID PRN 12/26/23 11/07/24 HYDROcodone/APAP 7.5-325MG [[place] 1 tab PO TID 04/06/24 11/07/24 7.5-325] Cyclobenzaprine [Flexeril] 5 mg PO TID PRN 06/18/24 11/07/24 Metoprolol Succinate (ER) [Toprol 50 mg PO DAILY 06/27/24 11/07/24 XL] Hydrocortisone [Cortef] 10 mg PO BID 07/27/24 11/07/24 Colchicine 0.6 mg PO DAILY 09/20/24 11/07/24 Diphenhydramine 50mg/Ml 50 mg IM Q6H PRN 09/20/24 11/07/24 allopurinoL [Zyloprim] 300 mg PO DAILY 09/20/24 11/07/24 Previous Rx's Medication Instructions Recorded Pantoprazole [Protonix] 40 mg PO AC-BID 30 Days #60 tab 04/24/24 Tiotropium 2.5 Mcg/Puff [Spiriva 2 puff INHALATION RT-DAILY each 07/31/24 Respimat 2.5 Mcg] Ipratropium-Albuterol Nebulize 3 ml INHALATION RT-TID 1 Days #90 09/23/24 [Duoneb 0.5 mg-3 mg/3 ml Soln] each Mupirocin 2% Oint [Bactroban 2% 1 applic TOPICAL TID #30 gm 10/12/24 Oint] Acetaminophen Tab [Tylenol] 650 mg PO Q6HR PRN tab 10/24/24 Allergies Allergy/AdvReac Type Severity Reaction Status Date / Time Penicillins Allergy Severe Anaphylaxis Verified 11/16/24 22:43 vancomycin Allergy Severe Swelling Verified 11/16/24 22:43 in lips NSAIDS (Non-Steroidal Allergy Unknown pt has Verified 11/16/24 22:43 Anti-Inflamma clotting disorder and is to not take NSAIDS cefepime Allergy Swelling Verified 11/16/24 22:43 clindamycin Allergy Anaphylaxis Verified 11/16/24 22:43 Influenza Virus Vaccines Allergy Anaphylaxis Verified 11/16/24 22:43 latex Allergy Itching Verified 11/16/24 22:43 and swelling morphine Allergy Anaphylaxis Verified 11/16/24 22:43 albuterol [From Ventolin HFA] AdvReac Rapid Verified 11/16/24 22:43 Heart Rate galcanezumab-gnlm AdvReac Confusion, Verified 11/16/24 22:43 [From Emgality Pen] increased blood pressure metoclopramide [From Reglan] AdvReac "felt like Verified 11/16/24 22:43 I needed to jump out of my skin" prochlorperazine AdvReac severe Verified 11/16/24 22:43 [From Compazine] anxiety Review of Systems ROS Statement: Those systems with pertinent positive or pertinent negative responses have been documented in the HPI. ROS Other: All systems not noted in ROS Statement are negative. Past Medical History Past Medical History: Blood Disorder, Myocardial Infarction (HI), Pulmonary Embolus (PE), Renal Disease, Seizure Disorder Additional Past Medical History / Comment(s): Antiphospholipid antibody syndrome which causes clots and bleeding, multiple PEs, R renal artery embolism/now atrophic, CKD stage III, hypotension, hypokalemia especially w/stress, lupus, pyoderma grangrenosum, 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 Patient states past history of C-Diff from 03/2023. last seizure last night twitching, usually with migraines or electrolyte imbalance. has had massive bleeding from xarelto Last Myocardial Infarction Date:: 08/30/2018 History of Any Multi-Drug Resistant Organisms: C-DIFF Date of last positivie culture/infection: 2023 has had three times MDRO Source:: unk Past Surgical History: Back Surgery, Breast Surgery, Cardiac Valve Replacement, Section, Cholecystectomy, Heart Catheterization, Hysterectomy, Pacemaker Additional Past Surgical History / Comment(s): pacemaker d/t bradycardia/hypotension with last one place in 2013 in [place], [place], 3 lower back surgeries, bilateral breast reduction. 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. lamenectomy Past Anesthesia/Blood Transfusion Reactions: No Reported Reaction Additional Past Anesthesia/Blood Transfusion Reaction / Comment(s): blood transfusion no issues Type of Cardiac Device: Permanent Pacemaker, Unknown Device Placement Date:: 2012 Past Psychological History: Anxiety, PTSD Smoking Status: Never smoker Past Alcohol Use History: Rare Past Drug Use History: Marijuana - Past Family History Mother Additional Family Medical History / Comment(s): Mother at the age of 49 yrs after surgery for silicon breast implants with a leak that caused ARDS and DIC per pt (fibroid cysts) Father Family Medical History: Cancer, Hyperlipidemia, Hypertension Additional Family Medical History / Comment(s): Father is a colon cancer survivor. General Exam Limitations: no limitations Course Vital Signs 11/16/24 11/16/24 11/17/24 22:37 23:28 03:02 Temperature 97.8 F 98.7 F Pulse Rate 71 71 70 Respiratory 15 16 16 Rate Blood Pressure 114/77 111/73 95/63 O2 Sat by Pulse 99 94 L 97 Oximetry Medical Decision Making - Medical Decision Making Was pt. sent in by a medical professional or institution (, PA, COUNTY ADVISER, urgent care, hospital, or senior living...) When possible be specific @ -[No] Did you speak to anyone other than the patient for history (EMS, parent, family, police, friend...)? What history was obtained from this source @ -[No] Did you review nursing and triage notes (agree or disagree)? Why? @ -[I reviewed and agree with nursing and triage notes] Were old charts reviewed (outside hosp., previous admission, EMS record, old EKG, old radiological studies, urgent care reports/EKG's, senior living records)? Report findings @ -[No old charts were reviewed] Differential Diagnosis (chest pain, altered mental status, abdominal pain women, abdominal pain men, vaginal bleeding, weakness, fever, dyspnea, syncope, headache, dizziness, GI bleed, back pain, seizure, CVA, palpatations, mental health, musculoskeletal)? @ -[not applicable] EKG interpreted by me (3pts min.). @ -Yes which demonstrates electronic atrial pacemaker with a rate of 73. MA interval 216. QRS 102. QTc of 444. No acute ST segment elevations or depressions. Pacemaker captures appropriately X-rays interpreted by me (1pt min.). @ -[None done] CT interpreted by me (1pt min.). @ -[None done] U/S interpreted by me (1pt. min.). @ -[None done] What testing was considered but not performed or refused? (CT, X-rays, U/S, labs)? Why? @ -[None] What meds were considered but not given or refused? Why? @ -[None] Did you discuss the management of the patient with other professionals (belgica wharton i.e. , PA, COUNTY ADVISER, lab, RT, psych nurse, health social work professor, analyst business analysis, teacher, founder chairman and chief creative officer, disease case manager rn)? Give summary @ -[No] Was smoking cessation discussed for >3mins.? @ -[No] Was critical care preformed (if so, how long)? @ -[No] Were there social determinants of health that impacted care today? How? (Homelessness, low income, unemployed, alcoholism, drug addiction, transportation, low edu. Level, literacy, decrease access to med. care, custodial, rehab)? @ -[No] Was there de-escalation of care discussed even if they declined (Discuss DNR or withdrawal of care, Hospice)? DNR status @ -[No] What co-morbidities impacted this encounter? (DM, HTN, Smoking, COPD, CAD, Cancer, CVA, ARF, Chemo, Hep., AIDS, mental health diagnosis, sleep apnea, morbid obesity)? @ -[None] Was patient admitted / discharged? Hospital course, mention meds given and route, prescriptions, significant lab abnormalities, going to OR and other pertinent info. @ -[hospital course] Undiagnosed new problem with uncertain prognosis? @ -[No] Drug Therapy requiring intensive monitoring for toxicity (Heparin, Nitro, Insulin, Cardizem)? @ -[No] Were any procedures done? @ -[No] Diagnosis/symptom? @ -[default] Acute, or Chronic, or Acute on Chronic? @ -[default] Uncomplicated (without systemic symptoms) or Complicated (systemic symptoms)? @ -[default] Side effects of treatment? @ -[No] Exacerbation, Progression, or Severe Exacerbation? @ -[No] Poses a threat to life or bodily function? How? (Chest pain, USA, HI, pneumonia, PE, COPD, DKA, ARF, appy, cholecystitis, CVA, Diverticulitis, Homicidal, S uicidal, threat to staff... and all critical care pts) @ -[No] - Lab Data Result diagrams: 11/16/24 23:46 11/16/24 23:46 Lab Results 11/16/24 11/16/24 11/16/24 Range/Units 23:46 23:46 23:46 WBC 6.97 (4.50-10.00) 10*3/uL RBC 3.65 L (4.10-5.20) 10*6/uL Hgb 11.6 L (12.0-15.0) g/dL Hct 35.2 L (37.2-46.3) % MCV 96.4 (80.0-97.0) fL MCH 31.8 (27.0-32.0) pg MCHC 33.0 (32.0-37.0) g/dL Plt Count 250 (140-440) 10*3/uL MPV 10.6 (9.5-12.2) fL Immature Gran % (Auto) 0.4 % Neutrophils % 75.2 % Lymphocytes % 14.2 % Monocytes % 8.8 % Eosinophils % 1.1 % Basophils % 0.3 % Immature Gran # 0.03 (0.00-0.04) 10*3/uL Neutrophils # 5.24 (1.80-7.70) 10*3/uL Lymphocytes # 0.99 (0.90-5.00) 10*3/uL Monocytes # 0.61 (0.20-1.00) 10*3/uL Eosinophils # 0.08 (0.04-0.35) 10*3/uL Basophils # 0.02 (0.00-0.10) 10*3/uL Sodium 137 (137-145) mmol/L Potassium 3.8 (3.5-5.1) mmol/L Chloride 100 (98-107) mmol/L Carbon Dioxide 28 (22-30) mmol/L Anion Gap 9 mmol/L BUN 27 H (7-17) mg/dL Creatinine 1.58 H (0.52-1.04) mg/dL Est GFR (CKD-EPI)AfAm 41 (>60 ml/min/1.73 sqM) Est GFR (CKD-EPI)NonAf 35 (>60 ml/min/1.73 sqM) Glucose 110 H (74-99) mg/dL Plasma Lactic Acid Raffi 1.7 (0.7-2.0) mmol/L Calcium 9.2 (8.4-10.2) mg/dL Magnesium 2.0 (1.6-2.3) mg/dL Total Bilirubin 0.5 (0.2-1.3) mg/dL AST 32 (14-36) U/L ALT 19 (4-34) U/L Alkaline Phosphatase 81 (38-126) U/L C-Reactive Protein 2.0 H (<1.0) mg/dL Total Protein 6.1 L (6.3-8.2) g/dL Albumin 3.8 (3.5-5.0) g/dL Disposition Clinical Impression: Infection of left hand, Drug-seeking behavior Disposition: ADMITTED IP TO THIS HOSP Condition: Stable Is patient prescribed a controlled substance at d/c from ED?: No Time of Disposition: 02:35 Decision to Admit Reason: Admit from EC Decision Date: 11/17/24 Decision Time: 02:35
[2024-11-17] MEDS ORDERED: NALOXONE 0.4 MG/ML 1 ML VIAL IV PRN (02:35)
[2024-11-17] MEDS: LINEZOLID 600 MG TAB PO STA (02:57)
[2024-11-17] MEDS: HYDROmorphone 1 MG/ML 1 ML SYRINGE IVP PRN (02:58)
[2024-11-17 08:24] LABS: Bilirubin,Urine Negative (Negative); Blood,Urine Negative (Negative); Color,Urine Yellow; Glucose,Urine (UA) Negative (Negative); Ketones,Urine Negative (Negative); Leukocyte Esterase,Urine Small (Negative); Mucus,Urine Rare /hpf; Nitrite,Urine Negative (Negative); PH, Urine 5.5 (5.0-8.0); Protein,Urine Negative (Negative); RBC,Urine 1 /hpf (0-5); Specific Gravity,Urine 1.025 (1.001-1.035); Squamous Epithelial Cell,Urine 2 /hpf (0-4); Urobilinogen,Urine <2.0 mg/dL (<2.0); WBC,Urine 7 /hpf (0-5)
--- NOTE | 2024-11-17 10:56 | P.CNOR ---
History of Present Illness - [facility] Consult date: 11/17/24 Consult reason: other (left hand infection) History of present illness: Patient presents for evaluation of left hand pain and swelling that started approximately 2 days ago after patient had a recent blood draw from her left index finger on Tuesday. After this she started noting pain to the proximal aspect of her index finger and diffuse swelling throughout the hand as well localized to the base of the index finger continues to have intact sensation throughout the hand palpation to the proximal aspect of the index finger but no significant pain to the remainder of the hand where the diffuse swelling is the ability to move her wrist and unaffected digits without she is able to move the tip of her index finger without significant pain. Patient has multiple medical core morbidities as well as multiple drug allergies. She has lupus and lupus and antiphospholipid syndrome recent developments of pyoderma gangrenosum currently has a wound VAC to her left leg for a recent wound with a history of a similar infection to her hand that required surgical intervention for drainage recent fevers or chills Additionally patient notes a history of lumbar surgery with Dr. Goodman salgado approximately 1 year ago, she has not been able to attend her recent scheduled follow-up due to this recent hospitalization and would like to discuss her back with him during this hospitalization of possible Review of Systems Musculoskeletal: Reports as per HPI Past Medical History Past Medical History: Blood Disorder, Myocardial Infarction ([place]), Pulmonary Embolus ([place]), Renal Disease, Seizure Disorder Additional Past Medical History / Comment(s): Antiphospholipid antibody syndrome which causes clots and bleeding, multiple PEs, R renal artery embolism/now atrophic, CKD stage III, hypotension, hypokalemia especially w/stress, lupus, pyoderma grangrenosum, decreased pituitary function pt states d/t clot, migraine s, chonic cervical/back pain, herniated discs, RLS, vertigo, lupus, valve replacement x2. Patient states past history of C-Diff from 03/2023. last seizure last night twitching, usually with migraines or electrolyte imbalance. has had massive bleeding from xarelto Last Myocardial Infarction Date:: 08/30/2018 History of Any Multi-Drug Resistant Organisms: C-DIFF Year Discovered:: 2023 has had three times MDRO Source:: unk Past Surgical History: Back Surgery, Breast Surgery, Cardiac Valve Replacement, Section, Cholecystectomy, Heart Catheterization, Hysterectomy, Pacemaker Additional Past Surgical History / Comment(s): pacemaker d/t bra dycardia/hypotension with last one place in 2013 in [place], [place], 3 lower back surgeries, bilateral breast reduction. 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. lamenectomy Past Anesthesia/Blood Transfusion Reactions: No Reported Reaction Additional Past Anesthesia/Blood Transfusion Reaction / Comm: blood transfusion no issues Type of Cardiac Device: Permanent Pacemaker, Unknown Device Placement Date:: 2012 Past Psychological History: Anxiety, PTSD Additional Psychological History / Comment(s): Pt resides with her spouse who has dementia and PTSD, she states she fears him and he is becoming increasingly violent Smoking Status: Never smoker Past Alcohol Use History: Rare Past Drug Use History: Marijuana Additional Drug Use History / Comment(s): Medical Marijuana use prn per pt. refrain for 24 hours prior to procedure. - Past Family History Mother Additional Family Medical History / Comment(s): Mother at the age of 49 yrs after surgery for silicon breast implants with a leak that caused ARDS and DIC per pt (fibroid cysts) Father Family Medical History: Cancer, Hyperlipidemia, Hypertension Additional Family Medical History / Comment(s): Father is a colon cancer de leon rvivor. Medications and Allergies Home Medications Medication Instructions Recorded Confirmed Type Atorvastatin [Lipitor] 40 mg PO HS 09/24/21 11/07/24 History Sertraline [Zoloft] 200 mg PO DAILY 09/24/21 11/07/24 History Apixaban [Eliquis] 5 mg PO BID 05/29/22 11/07/24 History busPIRone HCl [Buspar] 5 mg PO BID 06/11/22 11/07/24 History Fludrocortisone [Florinef] 0.1 mg PO DAILY 09/20/22 11/07/24 History Budesonide/Glycopyr/Formoterol 2 puff INHALATION RT-BID 12/26/23 11/07/24 History [Breztri Aerosphere Inhaler] Gabapentin 600 mg PO TID 12/26/23 11/07/24 History Ondansetron [Zofran] 4 mg PO TID PRN 12/26/23 11/07/24 History HYDROcodone/APAP 7.5-325MG [[place] 1 tab PO TID 04/06/24 11/07/24 History 7.5-325] Pantoprazole [Protonix] 40 mg PO AC-BID 30 Days #60 tab 04/24/24 11/07/24 Rx Cyclobenzaprine [Flexeril] 5 mg PO TID PRN 06/18/24 11/07/24 History Metoprolol Succinate (ER) [Toprol 50 mg PO DAILY 06/27/24 11/07/24 History XL] Hydrocortisone [Cortef] 10 mg PO BID 07/27/24 11/07/24 History Tiotropium 2.5 Mcg/Puff [Spiriva 2 puff INHALATION RT-DAILY each 07/31/24 11/07/24 Rx Respimat 2.5 Mcg] Colchicine 0.6 mg PO DAILY 09/20/24 11/07/24 History Diphenhydramine 50mg/Ml 50 mg IM Q6H PRN 09/20/24 11/07/24 History allopurinoL [Zyloprim] 300 mg PO DAILY 09/20/24 11/07/24 History Ipratropium-Albuterol Nebulize 3 ml INHALATION RT-TID 1 Days #90 09/23/24 11/07/24 Rx [Duoneb 0.5 mg-3 mg/3 ml Soln] each Mupirocin 2% Oint [Bactroban 2% 1 applic TOPICAL TID #30 gm 10/12/24 11/07/24 Rx Oint] Acetaminophen Tab [Tylenol] 650 mg PO Q6HR PRN tab 10/24/24 11/07/24 Rx Allergies Allergy/AdvReac Type Severity Reaction Status Date / Time Penicillins Allergy Severe Anaphylaxis Verified 11/16/24 22:43 vancomycin Allergy Severe Swelling Verified 11/16/24 22:43 in lips NSAIDS (Non-Steroidal Allergy Unknown pt has Verified 11/16/24 22:43 Anti-Inflamma clotting disorder and is to not take NSAIDS cefepime Allergy Swelling Verified 11/16/24 22:43 clindamycin Allergy Anaphylaxis Verified 11/16/24 22:43 Influenza Virus Vaccines Allergy Anaphylaxis Verified 11/16/24 22:43 latex Allergy Itching Verified 11/16/24 22:43 and swelling morphine Allergy Anaphylaxis Verified 11/16/24 22:43 albuterol [From Ventolin HFA] AdvReac Rapid Verified 11/16/24 22:43 Heart Rate galcanezumab-gnlm AdvReac Confusion, Verified 11/16/24 22:43 [From Emgality Pen] increased blood pressure metoclopramide [From Reglan] AdvReac "felt like Verified 11/16/24 22:43 I needed to jump out of my skin" prochlorperazine AdvReac severe Verified 11/16/24 22:43 [From Compazine] anxiety Physical Examination Left forearm and wrist Small superficial wound noted to the radial aspect of the index finger proximal phalanx There is no active drainage She has swelling over the proximal phalanx of the index finger but no swelling to the middle phalanx or distal phalanx She is able to flex and extend the index finger PIP and DIP joint She is able to perform active motion of the wrist and unaffected digits without significant discomfort Diffuse swelling throughout the hand as well as extending into the wrist and dis stew forearm however there are no areas of significant tenderness or palpable fluid collections in this area Has intact sensation throughout the hand and brisk capillary refill to all digits Patient initially had rings present on her ring finger these were successfully removed at the bedside Results - Labs Labs: Abnormal Lab Results - Last 24 Hours (Table) Has mildly elevated CRP however white blood cell count is within normal limits 11/16/24 11/16/24 11/17/24 Range/Units 23:46 23:46 08:05 RBC 3.65 L (4.10-5.20) 10*6/uL Hgb 11.6 L (12.0-15.0) g/dL Hct 35.2 L (37.2-46.3) % BUN 27 H (7-17) mg/dL Creatinine 1.58 H (0.52-1.04) mg/dL Glucose 110 H (74-99) mg/dL C-Reactive Protein 2.0 H (<1.0) mg/dL Total Protein 6.1 L (6.3-8.2) g/dL Ur Leukocyte Esterase Small H (Negative) Urine WBC 7 H (0-5) /hpf Urine Mucus Rare H (None) /hpf H & H 11/16/24 Range/Units 23:46 Hgb 11.6 L (12.0-15.0) g/dL Hct 35.2 L (37.2-46.3) % Result Diagrams: 11/16/24 23:46 11/16/24 23:46 - Diagnostic results Wrist/Hand x-ray: image reviewed (Imaging shows no acute fractures or dislocations or retained foreign bodies there is diffuse swelling throughout the hand and wrist on the associated image) Assessment and Plan Assessment: Left hand cellulitis with concern for possible abscess to the index finger in the area of the proximal failure Plan: Will obtain MRI of the left hand to assess for areas of focal fluid collection that may be amenable to drainage Will initiate patient on broad-spectrum antibiotics with daptomycin given her significant previous allergies to several antibiotics and desire for broad coverage Infectious disease input in terms of appropriate changes to antibiotics if deemed necessary Patient will be n.p.o. at midnight tonight in anticipation of possible operative intervention pending MRI review For now encourage strict elevation of the left hand to help with swelling
[2024-11-17 11:55] VITALS: BMI 27.4
[2024-11-17] MEDS ORDERED: ONDANSETRON ODT 4 MG TAB PO PRN (12:12)
[2024-11-17] MEDS: diphenhydrAMINE 50 MG/ML 1 ML VIAL IM PRN (12:56)
[2024-11-17] MEDS: SODIUM CHLORIDE 0.9% 1,000 ML IV ONE (14:29)
[2024-11-17] MEDS: IPRATROPIUM-ALBUTEROL 3 ML NEB INHALATION SCH (14:49)
[2024-11-17] MEDS: LEVOFLOXACIN 500MG-D5W PMX 500 MG in DEXTROSE/WATER 1 100ML.BAG IVPB SCH (15:58)
[2024-11-17] MEDS: GABAPENTIN 300 MG CAP PO SCH (15:58)
[2024-11-17] MEDS: SODIUM CHLORIDE 0.9% 1,000 ML IV SCH (15:59)
[2024-11-17] MEDS ORDERED: HYDROcodone/APAP 7.5-325MG 1 EACH TAB PO SCH (16:00)
[2024-11-17] MEDS: PANTOPRAZOLE 40 MG TABLET PO SCH (18:41)
[2024-11-17] MEDS: SYMBICORT 160-4.5 MCG INHALER INHALATION SCH (19:47)
[2024-11-17] MEDS: ATORVASTATIN 40 MG TAB PO SCH (20:36)
[2024-11-17] MEDS: HYDROCORTISONE 10 MG TAB PO SCH (20:36)
[2024-11-17 20:53] LABS: ALT 23 U/L (4-34); AST 35 U/L (14-36); African American GFR (CKD) 53 (>60 ml/min/1.73 sqM); Albumin 3.9 g/dL (3.5-5.0); Albumin/Globulin Ratio 1.7; Alkaline Phosphatase 86 U/L (38-126); Anion Gap 10 mmol/L; Blood Urea Nitrogen 20 mg/dL (7-17); Calcium 8.9 mg/dL (8.4-10.2); Carbon Dioxide 25 mmol/L (22-30); Chloride 100 mmol/L (98-107); Globulin 2.3 g/dL; Glucose 101 mg/dL (74-99); Non-African American GFR(CKD) 46 (>60 ml/min/1.73 sqM); Sodium 135 mmol/L (137-145); Total Protein 6.2 g/dL (6.3-8.2)
[2024-11-17 21:02] LABS: Potassium 4.0 mmol/L (3.5-5.1)
[2024-11-17] MEDS ORDERED: LACTULOSE 20 GM/30 ML CUP PO PRN (21:31)
[2024-11-17] MEDS: CYCLOBENZAPRINE 5 MG TAB PO PRN (21:46)
--- NOTE | 2024-11-17 22:01 | CT ---
EXAMINATION TYPE: CT hand LT wo/w con, CT forearm LT wo/w con DATE OF EXAM: 11/17/2024 9:25 PM COMPARISON: None. CLINICAL INDICATION: Female, 59 years old with history of rule out abscess, surgical planning; PHH, r ule out abscess TECHNIQUE: Axial images were obtained of the CT hand LT wo/w con, CT forearm LT wo/w con, Additional coronal and sagittal reformatted images and soft tissue and bone window were obtained for review. 3-D reconstruction was created on a separate workstation. Contrast used:80ml mL of Isovue 300 without and with IV Contrast, (None if empty) CT DLP: 793.4 COMBINED mGycm, Automated exposure control for dose reduction was used. FINDINGS: No acute fracture or dislocation. Carpal alignment appears grossly maintained. Mild interphalangeal d egenerative osteophytic changes. No expected of a foreign body. Diffuse subcutaneous edema and fat st randing throughout the left hand and left forearm. No focal osseous erosion or aggressive periosteal reaction appreciated. Evaluation for abscess significantly limited due to lack of IV contrast. Soft t issue gas noted along the medial aspect of the left forearm. There is loculated fluid in the proximal medial aspect of left forearm measuring approximately 19 x 12 mm (138/158). No discernible soft tiss ue gas or peripheral thick wall involving this fluid collection. IMPRESSION: 1. No acute osseous abnormality. 2. Extensive subcutaneous edema/fat stranding throughout the left hand and left forearm with loculat ed fluid collection within the medial aspect of the proximal left forearm measuring roughly 19 x 12 m m. Evaluation for abscess is limited due to lack of IV contrast. However, visualized loculated fluid demonstrates no peripheral thick wall or internal gas. Recommend clinical correlation for cellulitis and developing phlegmonous changes. Soft tissue gas throughout the medial forearm which could relate to recent IV access attempts. [facility], , 11/17/2024 9:58 PM
--- NOTE | 2024-11-17 22:46 | P.CONS ---
History of Present Illness - Reason for Consult Consult date: 11/17/24 hAnd infection, multiple drug allergies Requesting physician: Linda Moreno - Chief Complaint Left hand pain swelling and redness x few days - History of Present Illness Patient is a 59-year-old female with multiple comorbidity including [place] PE seizure disorder antiphospholipid antibodies syndrome presenting to the hospital for evaluation of left thumb and hand swelling and redness patient symptoms started on Tuesday in this patient who did have a blood draw on Tuesday from the left hand and subsequently noted to have increasing swelling and redness and pain patient describing the pain to be sharp severe intensity without radiation and did have a localized swelling and pustule formation at the base of the left index finger patient was complaining of some purulent drainage from it with the symptoms the patient presented to hospital on arrival to the ER the patient was afebrile no fever have recorded subsequently patient was not tachycardic hypotensive or hypoxic did have bilateral 6.97 BUN and creatinine has been mildly elevated liver enzymes are normal urine has been negative x-ray of the hand did show diffuse soft tissue swelling no soft tissue gas patient has been eval by orthopedics and surgery MRI has been ordered patient was empirically started on daptomycin because of her multiple antibiotic allergies infectious disease was consulted for further management of antibiotic therapy Review of Systems Positive point and negatives has been mentioned in the HPI, complete review of systems was performed and all other systems are negative Past Medical History Past Medical History: Blood Disorder, Myocardial Infarction ([place]), Pulmonary Embolus ([place]), Renal Disease, Seizure Disorder Additional Past Medical History / Comment(s): Antiphospholipid antibody syndrome which causes clots and bleeding, multiple PEs, R renal artery embolism/now atrophic, CKD stage III, hypotension, hypokalemia especially w/stress, lupus, pyoderma grangrenosum, 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 Patient states past history of C-Diff from 03/2023. last seizure last night twitching, usually with migraines or electrolyte imbalance. has had massive bleeding from xarelto Last Myocardial Infarction Date:: 08/30/2018 History of Any Multi-Drug Resistant Organisms: C-DIFF Year Discovered:: 2023 has had three times MDRO Source:: unk Past Surgical History: Back Surgery, Breast Surgery, Cardiac Valve Replacement, Section, Cholecystectomy, Heart Catheterization, Hysterectomy, Pacemaker Additional Past Surgical History / Comment(s): pacemaker d/t bradycardia/hypotension with last one place in 2013 in [place], [place], 3 lower back surgeries, bilateral breast reduction. 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. lamenectomy Past Anesthesia/Blood Transfusion Reactions: No Reported Reaction Additional Past Anesthesia/Blood Transfusion Reaction / Comm: blood transfusion no issues Type of Cardiac Device: Permanent Pacemaker, Unknown Device Placement Date:: 2012 Past Psychological History: Anxiety, PTSD Additional Psychological History / Comment(s): Pt resides with her spouse who has dementia and PTSD, she states she fears him and he is becoming increasingly violent Smoking Status: Never smoker Past Alcohol Use History: Rare Past Drug Use History: Marijuana Additional Drug Use History / Comment(s): Medical Marijuana use prn per pt. refrain for 24 hours prior to procedure. - Past Family History Mother Additional Family Medical History / Comment(s): Mother at the age of 49 yrs after surgery for silicon breast implants with a leak that caused ARDS and DIC per pt (fibroid cysts) Father Family Medical History: Cancer, Hyperlipidemia, Hypertension Additional Family Medical History / Comment(s): Father is a colon cancer survivor. Medications and Allergies Home Medications Medication Instructions Recorded Confirmed Type Atorvastatin [Lipitor] 40 mg PO HS 09/24/21 11/17/24 History Sertraline [Zoloft] 200 mg PO DAILY 09/24/21 11/17/24 History Apixaban [Eliquis] 5 mg PO BID 05/29/22 11/17/24 History busPIRone HCl [Buspar] 5 mg PO BID 06/11/22 11/17/24 History Fludrocortisone [Florinef] 0.1 mg PO DAILY 09/20/22 11/17/24 History Budesonide/Glycopyr/Formoterol 2 puff INHALATION RT-BID 12/26/23 11/17/24 History [Breztri Aerosphere Inhaler] Gabapentin 600 mg PO TID 12/26/23 11/17/24 History Ondansetron [Zofran] 4 mg PO TID PRN 12/26/23 11/17/24 History HYDROcodone/APAP 7.5-325MG [[place] 1 tab PO TID 04/06/24 11/17/24 History 7.5-325] Cyclobenzaprine [Flexeril] 5 mg PO TID PRN 06/18/24 11/17/24 History Metoprolol Succinate (ER) [Toprol 50 mg PO DAILY 06/27/24 11/17/24 History XL] Hydrocortisone [Cortef] 10 mg PO DAILY 07/27/24 11/17/24 History Colchicine 0.6 mg PO DAILY 09/20/24 11/17/24 History Diphenhydramine 50mg/Ml 50 mg IM Q6H PRN 09/20/24 11/17/24 History allopurinoL [Zyloprim] 300 mg PO DAILY 09/20/24 11/17/24 History Ipratropium-Albuterol Nebulize 3 ml INHALATION RT-TID 1 Days #90 09/23/24 11/17/24 Rx [Duoneb 0.5 mg-3 mg/3 ml Soln] each Mupirocin 2% Oint [Bactroban 2% 1 applic TOPICAL TID #30 gm 10/12/24 11/17/24 Rx Oint] Acetaminophen Tab [Tylenol] 650 mg PO Q6HR PRN tab 10/24/24 11/17/24 Rx Bumetanide [Bumex] 1 mg PO BID PRN 11/17/24 11/17/24 History rOPINIRole HCL [Requip] 2 mg PO HS 11/17/24 11/17/24 History Allergies Allergy/AdvReac Type Severity Reaction Status Date / Time Penicillins Allergy Severe Anaphylaxis Verified 11/17/24 15:51 vancomycin Allergy Severe Swelling Verified 11/17/24 15:51 in lips NSAIDS (Non-Steroidal Allergy Unknown pt has Verified 11/17/24 15:51 Anti-Inflamma clotting disorder and is to not take NSAIDS cefepime Allergy Swelling Verified 11/17/24 15:51 clindamycin Allergy Anaphylaxis Verified 11/17/24 15:51 Influenza Virus Vaccines Allergy Anaphylaxis Verified 11/17/24 15:51 latex Allergy Itching Verified 11/17/24 15:51 and swelling morphine Allergy Anaphylaxis Verified 11/17/24 15:51 albuterol [From Ventolin HFA] AdvReac Rapid Verified 11/17/24 15:51 Heart Rate galcanezumab-gnlm AdvReac Confusion, Verified 11/17/24 15:51 [From Emgality Pen] increased blood pressure metoclopramide [From Reglan] AdvReac "felt like Verified 11/17/24 15:51 I needed to jump out of my skin" prochlorperazine AdvReac severe Verified 11/17/24 15:51 [From Compazine] anxiety Physical Exam Vitals: Vital Signs Temp Pulse Pulse Pulse Resp BP BP 11/17/24 08:37 11/17/24 07:52 98.0 F 76 16 122/68 11/17/24 04:17 97.6 F 72 20 100/69 11/17/24 03:02 70 16 95/63 11/16/24 23:28 98.7 F 71 16 111/73 11/16/24 22:37 97.8 F 71 15 114/77 Pulse Ox 11/17/24 08:37 100 11/17/24 07:52 92 L 11/17/24 04:17 93 L 11/17/24 03:02 97 11/16/24 23:28 94 L 11/16/24 22:37 99 Intake and Output 11/16/24 11/17/24 11/17/24 22:59 06:59 14:59 Intake Total 250 240 Balance 250 240 Intake: Oral 250 240 Other: Voiding Method Toilet Weight 68.039 kg 68.039 kg 68.039 kg GENERAL DESCRIPTION: Middle-age female lying in bed, no distress. No tachypnea or accessory muscle of respiration use. HEENT: Shows Pallor , no scleral icterus. Oral mucous membrane is dry. NECK: Trachea central, no thyromegaly. LUNGS: Unlabored breathing. Clear to auscultation anteriorly. No wheeze or c rackle. HEART: S1, S2, regular rate and rhythm. No loud murmur ABDOMEN: Soft, no tenderness , guarding or rigidity, no organomegaly EXTREMITIES: Left hand did have significant swelling and redness and the patient did have a pustule at the base of the left index finger which was cultured SKIN: No rash, no masses palpable. NEUROLOGICAL: The patient is awake, alert, oriented x3, mood and affect normal. Results CBC & Chem 7: 11/16/24 23:46 11/17/24 19:43 Labs: Abnormal Lab Results - Last 24 Hours (Table) 11/16/24 11/16/24 11/17/24 Range/Units 23:46 23:46 08:05 RBC 3.65 L (4.10-5.20) 10*6/uL Hgb 11.6 L (12.0-15.0) g/dL Hct 35.2 L (37.2-46.3) % BUN 27 H (7-17) mg/dL Creatinine 1.58 H (0.52-1.04) mg/dL Glucose 110 H (74-99) mg/dL C-Reactive Protein 2.0 H (<1.0) mg/dL Total Protein 6.1 L (6.3-8.2) g/dL Ur Leukocyte Esterase Small H (Negative) Urine WBC 7 H (0-5) /hpf Urine Mucus Rare H (None) /hpf Assessment and Plan (1) Infection of left hand Current Visit: Yes Status: Acute Code(s): L08.9 - LOCAL INFECTION OF THE SKIN AND SUBCUTANEOUS TISSUE, UNSP SNOMED Code(s): 769077511 (2) Abscess of left arm Current Visit: No Status: Acute Code(s): L02.414 - CUTANEOUS ABSCESS OF LEFT UPPER LIMB SNOMED Code(s): 12822150631588670 (3) Allergy to multiple antibiotics Current Visit: No Status: Acute Code(s): Z88.1 - ALLERGY STATUS TO OTHER ANTIBIOTIC AGENTS SNOMED Code(s): 156335570 Plan: 1patient presented to hospital with left ankle pain swelling redness in this patient did have a pustule at the base of the left index finger symptoms started few days before presentation to the hospital and apparently was preceded by bl ood draw questionable related to the same will need to cover for the gram- positive skin maddie to be the likely pathogen. 2patient with multiple antibiotic ALLERGIES that would limit the number of ant ibiotic safe to use 3await MRI of the left hand being ordered by hand surgery patient likely benefi t from surgical I&D and deep culture 4patient will empirically treated with daptomycin while waiting for the culture to be finalized We will follow on clinical condition and cultures to further adjust medication if needed Thank you for this consultation we will follow the patient along with you Dictation was produced using icomplyation software. please excuse any grammatical, word or spelling errors. Time with Patient: Greater than 30
--- NOTE | 2024-11-18 07:24 | P.PN ---
Progress Note - Text Progress Note Date: 11/18/24 patient seen and examined this morning, she has continued swelling to the base of the index finger, no active drainage from her radial sided wound no distal swelling to the index finger, able to move the MP, PIP and DIP joints without discomfort sensation is intact throughout the hand forearm and wrist swelling has improved still has moderate swelling to the dorsum of the hand intact motion to all other digits of the hand No pain or tenderness proximally in the forearm near the area of possible fluid collection seen on CT scan CT of the forearm and hand reviewed, unfortunately despite several conversations this was done without contrast and not an ideal study to evaluate for soft tissue abscess, there was noted diffuse soft tissue swelling consistent with cellulitis of the hand and forearm and a small area to the proximal volar aspect of the forearm where a possible small fluid collection was identified. clinically patient has concerns for localized abscess around the proximal index finger even though this was not specifically identified on CT discussed with the patient that MRI would be the ideal study to properly assess her soft tissues and identify the full extent of any possible fluid collections she would like to proceed with drainage of the index finger today to assess if this can help with her pain and discomfort should patient not clinically improve after index finger drainage she will need to be transferred to a facility capable of performing an MRI with her pacemaker in [place] to fully assess for any other areas of infection will plan to proceed with the OR today for I&D of the left index finger.
[2024-11-18 07:42] LABS: Basophils # (A) 0.02 10*3/uL (0.00-0.10); Basophils % (A) 0.3 %; Eosinophils # (A) 0.09 10*3/uL (0.04-0.35); Eosinophils % (A) 1.5 %; HCT 36.3 % (37.2-46.3); HGB 11.9 g/dL (12.0-15.0); Lymphocytes # (A) 0.69 10*3/uL (0.90-5.00); Lymphocytes % (A) 11.6 %; MCH 31.6 pg (27.0-32.0); MCHC 32.8 g/dL (32.0-37.0); MCV 96.5 fL (80.0-97.0); Monocytes # (A) 0.55 10*3/uL (0.20-1.00); Monocytes % (A) 9.2 %; Neutrophils # (A) 4.61 10*3/uL (1.80-7.70); Neutrophils % (A) 77.2 %; Platelet Count 241 10*3/uL (140-440); RBC 3.76 10*6/uL (4.10-5.20); RDW 14.7 % (11.5-14.5); WBC 5.97 10*3/uL (4.50-10.00)
[2024-11-18 07:54] LABS: African American GFR (CKD) 50 (>60 ml/min/1.73 sqM); Anion Gap 12 mmol/L; Blood Urea Nitrogen 18 mg/dL (7-17); Calcium 9.2 mg/dL (8.4-10.2); Carbon Dioxide 24 mmol/L (22-30); Chloride 102 mmol/L (98-107); Glucose 97 mg/dL (74-99); Non-African American GFR(CKD) 43 (>60 ml/min/1.73 sqM); Potassium 4.2 mmol/L (3.5-5.1); Sodium 138 mmol/L (137-145)
[2024-11-18] MEDS ORDERED: TIOTROPIUM 2.5 MCG INHALER INHALATION SCH (08:00)
[2024-11-18] MEDS: IPRATROPIUM 0.5 MG/2.5 ML NEBU INHALATION SCH (08:20)
[2024-11-18] MEDS: FLUDROCORTISONE 0.1 MG TAB PO SCH (08:22)
[2024-11-18] MEDS: METOPROLOL SUCCINATE (ER) 50 MG TAB.ER.24H PO SCH (08:23)
[2024-11-18] MEDS: BUPIVACAINE (PF) 0.25% 30 ML VIAL SQ ONE ×3 (08:46→10:21)
[2024-11-18] MEDS ORDERED: COLCHICINE 0.6 MG EACH PO SCH (09:00)
[2024-11-18] MEDS ORDERED: PROPOFOL 10 MG/ML 20 ML VIAL IV ONE (09:46)
[2024-11-18] MEDS ORDERED: fentaNYL (PF) 50 MCG/ML 2 ML AMP ONE (09:46)
[2024-11-18] MEDS ORDERED: ONDANSETRON 4 MG/2 ML VIAL ONE (09:46)
[2024-11-18] MEDS ORDERED: MIDAZOLAM 2 MG/2 ML VIAL ONE (09:46)
[2024-11-18] MEDS ORDERED: PHENYLEPHRINE-0.9% NACL SYG 1,000 MCG/10 ML SYRINGE ONE (09:46)
[2024-11-18] MEDS: IV FLUID CONTINUATION 1,000 ML IV ONE (09:50)
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
--- NOTE | 2024-11-18 10:05 | P.ANPRN ---
Procedure Note - Anesthesia - Invasive Line Right Central Line Time Out Performed: Yes ([id number]) Date of Procedure: 11/18/24 Time of Procedure: 09:05 Location of Patient: PreOp Preparation: Sterile Prep, Sterile Dressing Central Line Location: Internal Jugular Ultrasound Used: Yes Purpose - Visualization and Identification of Vasculature: Yes Needle Guage: Double lumen , with one attempt , bio patch applied. Image Stored and Saved: Yes Narrative: Invasive line placement per sterile protocol utilized.
--- NOTE | 2024-11-18 10:33 | P.OP ---
Date of Procedure: 11/18/24 Preoperative Diagnosis: Suspected left index finger abscess Procedure(s) Performed: Irrigation debridement of the left index finger and hand skin and subcutaneous tissue Anesthesia: [place] Surgeon: Mark Waller Estimated Blood Loss (ml): 5 Pathology: other (Wound cultures sent) Condition: stable Disposition: PACU Indications for Procedure: Patient with history of recent left index finger IV access developed a superficial wound in the coming days with associated swelling of the proximal aspect of the index finger with suspicion for abscess to the volar aspect of the proximal phalanx soft tissues, along with associated cellulitis throughout the hand and distal forearm Operative Findings: No overt abscess identified, her radial wound was slightly enlarged and this was debrided down to healthy appearing tissue, patient exhibited significant third spacing of fluid throughout the hand after the incision was made in the index finger she had significant decompression of the swelling in that area however there was no focal pockets of pus or abscess noted. Description of Procedure: After appropriate informed consent was obtained the patient was taken to the operating room on a stretcher arm placed on an arm table a well-padded tourniquet was applied to the left upper arm, general anesthesia was administered per the anesthesia team, the left hand and arm was prepped and draped in the normal standard fashion, a standard timeout was performed, an oblique incision was made along the volar proximal aspect of the index finger upon making the skin incision there was noted to be no evidence of focal abscess or pocket of pus however there was noted to be considerable third space type fluid that was released after the incision. Blunt dissection was carried around the radial aspect of the digit entering into the dorsal aspect of the index finger however even with this channel created there was no expressible purulent fluid from the dorsal aspect of the digit either. wound cultures were obtained at this time. Her radial sided wound was debrided back to healthy appearing tissue the debridement only involved the superficial layers of the skin and subcutaneous tissue. The wound was thoroughly irrigated with a liter of normal saline, the wound was loosely approximated with antimicrobial Monocryl sutures to allow for residual drainage. Sterile dressings and a light compressive wrap were applied to the hand and forearm. Of note preoperatively the patient's IV access was noted to be infiltrated and is questionable whether she was getting her appropriate antibiotics prior to the placement of her central line. Patient tolerated the procedure well and was transferred to the recovery area in stable condition. Postoperatively patient should be nonweightbearing to the left hand with strict elevation as often as possible to the level of the heart to further decrease swelling. Continue broad-spectrum antibiotics until wound cultures result Multi modal pain control regimen Will begin 3 times daily Hibiclens soaks on the floor
[2024-11-18] MEDS: HYDROmorphone 0.5 MG/0.5 ML SYRINGE IVP PRN (11:18)
[2024-11-18] MEDS: DEXAMETHASONE SOD PHOSPHATE 4 MG/ML 1 ML VIAL IV ONE (12:27)
[2024-11-18] MEDS: ONDANSETRON 4 MG/2 ML VIAL IVP ONE (12:28)
[2024-11-18] MEDS: LACTATED RINGERS 1,000 ML IV SCH (12:28)
[2024-11-18] MEDS ORDERED: LORazepam 1 MG/0.5 ML VIAL IV PRN (14:37)
[2024-11-18] MEDS: LORazepam 1 MG/0.5 ML VIAL IV STA (14:43)
[2024-11-18] MEDS: LEVOFLOXACIN 250MG-D5W PMX 250 MG in DEXTROSE/WATER 1 50ML.BAG IVPB SCH (16:14)
--- NOTE | 2024-11-18 18:40 | P.PN ---
Subjective Progress Note Date: 11/18/24 Principal diagnosis: Reason for follow-up is left index finger abscess Patient is a 59-year-old female with multiple comorbidity including [place] PE seizure disorder antiphospholipid antibodies syndrome presenting to the hospital for evaluation of left thumb and hand swelling and redness has been diagnosed with the left index finger abscess in this patient who is status post I&D of the left index finger completed on 11/18/2024. On today's evaluation that is 11/18/2024, Patient is afebrile patient is currently on 2 L goal oxygen and denies having any shortness of breath, the patient denies any chest pain or cough, the patient denies any nausea vomiting did not have any abdominal pain and no diarrhea has been complaining of significant pain to the left hand post debridement. Patient white count is 5.97, creatinine is 1.33 cultures currently pending Objective - Vital Signs Vital signs: Vital Signs Temp 98.8 F 11/18/24 10:34 Pulse 69 11/18/24 11:15 Resp 18 11/18/24 11:15 BP 100/58 11/18/24 11:15 Pulse Ox 93 L 11/18/24 11:15 FiO2 Intake & Output 11/17/24 11/18/24 11/18/24 18:59 06:59 18:59 Intake Total 1500 250 500 Output Total 5 Balance 1500 250 495 Weight 68.039 kg Intake: IV 500 Oral 1500 250 Output: Estimated Blood Loss 5 Other: Voiding Method Toilet # Voids 4 2 - Exam GENERAL DESCRIPTION: Middle-age female lying in bed in no distress RESPIRATORY SYSTEM: Unlabored breathing , decreased breath sounds at bases HEART: S1 S2 regular rate and rhythm , ABDOMEN: Soft , no tenderness EXTREMITIES: Left hand is currently dressed no drainage - Labs CBC & Chem 7: 11/18/24 07:18 11/18/24 07:18 Labs: Abnormal Lab Results - Last 24 Hours (Table) 11/17/24 11/18/24 11/18/24 Range/Units 19:43 07:18 07:18 RBC 3.76 L (4.10-5.20) 10*6/uL Hgb 11.9 L (12.0-15.0) g/dL Hct 36.3 L (37.2-46.3) % RDW 14.7 H (11.5-14.5) % Lymphocytes # 0.69 L (0.90-5.00) 10*3/uL Sodium 135 L (137-145) mmol/L BUN 20 H 18 H (7-17) mg/dL Creatinine 1.27 H 1.33 H (0.52-1.04) mg/dL Glucose 101 H (74-99) mg/dL Total Protein 6.2 L (6.3-8.2) g/dL Assessment and Plan (1) Infection of left hand Current Visit: Yes Status: Acute Code(s): L08.9 - LOCAL INFECTION OF THE SKIN AND SUBCUTANEOUS TISSUE, UNSP SNOMED Code(s): 613194813 (2) Abscess of left arm Current Visit: No Status: Acute Code(s): L02.414 - CUTANEOUS ABSCESS OF LEFT UPPER LIMB SNOMED Code(s): 02520512304419320 (3) Allergy to multiple antibiotics Current Visit: No Status: Acute Code(s): Z88.1 - ALLERGY STATUS TO OTHER ANTIBIOTIC AGENTS SNOMED Code(s): 403434090 Plan: 1patient presented to hospital with left ankle pain swelling redness in this patient did have a pustule at the base of the left index finger symptoms started few days before presentation to the hospital and apparently was preceded by blood draw questionable related to the same will need to cover for the gram- positive skin maddie to be the likely pathogen. 2patient with multiple antibiotic ALLERGIES that would limit the number of antibiotic safe to use 3patient is status post CT of the left hand concerning for possible abscess status post I&D completed on 11/18/2024 as well as deep culture 4patient currently being treated with daptomycin while waiting for the culture to be finalized, question concern answered Dictation was produced using [employer] dictation software. please excuse any g rammatical, word or spelling errors. Time with Patient: Less than 30
--- NOTE | 2024-11-19 07:29 | P.PN ---
Progress Note - Text Progress Note Date: 11/19/24 Patient was seen and examined this morning, did well overnight no acute events, she still notes pain mostly to the index finger after her drainage procedure yesterday. Denies any issues with fevers or chills. She notes continued swelling throughout her hand but denies any significant pain throughout the hand wrist or forearm. Any numbness or tingling throughout the hand today Her dressings were removed stable appearance of her radial sided wound on the proximal aspect of the index finger with no acute drainage however it does have an overall ulcerated appearance to it and my concern is that this is a developing pyoderma gangrenosum lesion. Her volar incision site is well-appearing there is no drainage. She continues to have tenderness mostly around the area of her lesion and proximal phalanx. She continues to have intact motion of the DIP and PIP joint of the hand as well as of the other digits of the hand and wrist without discomfort She has pitting edema throughout the hand and forearm until just distal to the elbow. Preliminary cultures taken intraoperatively so far are negative for any bacterial growth Assessment Patient is now postop day 1 status post I&D bladder proximal phalanx however this failed without any abscess or focal fluid collection. Her radial sided index wound has the appearance of a pyoderma gangrenosum lesion and given her history this remains my concern as her primary pathology Additionally she continues to have significant swelling throughout her hand however this is nontender and does not give the appearance of any focal areas of abscess however without having prior MRI studies this is difficult to definitively rule out Her lab work continues to be overall benign further clouding the picture of her specific diagnosis Overall given the findings intraoperatively as well as her minimal change in clinical exam I suspect her main problem is a 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 At this time I recommend patient be transferred to [facility] so that patient may be evaluated by a multidisciplinary team including dermatologists, plastic surgeons, and rheumatologists for further workup of possible pyoderma gangrenosum. Additionally given her persistent swelling I think it is warranted that patient have a formal MRI of the extremity performed to rule out any deep abscesses as we are unfortunately unable to do so at our facility with her pacemaker Given the concern for pyoderma gangrenosum I would recommend against any further surgical intervention as this may exacerbate her condition until further workup can be performed.
[2024-11-19 07:53] VITALS: RESP 18
--- NOTE | 2024-11-19 12:47 | P.PN ---
Subjective Progress Note Date: 11/19/24 Principal diagnosis: Reason for follow-up is left index finger abscess Patient is a 59-year-old female with multiple comorbidity including [place] PE seizure disorder antiphospholipid antibodies syndrome presenting to the hospital for evaluation of left thumb and hand swelling and redness has been diagnosed with the left index finger abscess in this patient who is status post I&D of the left index finger completed on 11/18/2024. On today's evaluation that is 11/19/2024, patient has been afebrile, patient is breathing comfortably and is currently on 3 L nasal cannula oxygen, patient denies having any chest pain and cough, patient denies nausea vomiting or diarrhea and no abdominal pain, pain to the left hand is currently controlled. No new lab has been obtained today cultures so far pending Gram stain with gram- positive cocci Objective - Vital Signs Vital signs: Vital Signs Temp 97.6 F 11/19/24 07:24 Pulse 72 11/19/24 07:24 Resp 18 11/19/24 07:24 BP 98/62 11/19/24 07:24 Pulse Ox 92 L 11/19/24 07:24 FiO2 Intake & Output 11/18/24 11/19/24 11/19/24 18:59 06:59 18:59 Intake Total 1160 Output Total 5 Balance 1155 Intake: IV 500 Oral 660 Output: Estimated Blood Loss 5 Other: Voiding Method Toilet # Voids 1 - Exam GENERAL DESCRIPTION: Middle-age female lying in bed in no distress RESPIRATORY SYSTEM: Unlabored breathing , decreased breath sounds at bases HEART: S1 S2 regular rate and rhythm , ABDOMEN: Soft , no tenderness EXTREMITIES: Left hand is currently dressed no drainage - Labs CBC & Chem 7: 11/18/24 07:18 11/18/24 07:18 Labs: Microbiology - Last 24 Hours (Table) 11/18/24 10:14 Gram Stain - Preliminary Finger - Left Second 11/18/24 10:20 Gram Stain - Preliminary Finger - Left Second 11/17/24 13:20 Gram Stain - Preliminary Finger - Left First Wound Culture - Preliminary Assessment and Plan (1) Infection of left hand Current Visit: Yes Status: Acute Code(s): L08.9 - LOCAL INFECTION OF THE SKIN AND SUBCUTANEOUS TISSUE, UNSP SNOMED Code(s): 244623149 (2) Abscess of left arm Current Visit: No Status: Acute Code(s): L02.414 - CUTANEOUS ABSCESS OF LEFT UPPER LIMB SNOMED Code(s): 00780817854821263 (3) Allergy to multiple antibiotics Current Visit: No Status: Acute Code(s): Z88.1 - ALLERGY STATUS TO OTHER ANTIBIOTIC AGENTS SNOMED Code(s): 610148167 Plan: 1patient presented to hospital with left ankle pain swelling redness in this patient did have a pustule at the base of the left index finger symptoms started few days before presentation to the hospital and apparently was preceded by blood draw questionable related to the same will need to cover for the gram- positive skin maddie to be the likely pathogen. 2patient with multiple antibiotic ALLERGIES that would limit the number of antibiotic safe to use 3patient is status post CT of the left hand concerning for possible abscess status post I&D completed on 11/18/2024 as well as deep culture 4patient Gram stain showing gram-positive cocci patient is covered with daptomycin possible transfer to tertiary care to be evaluated by hand surgery as recommended by orthopedics Dictation was produced using [employer] dictation software. please excuse any grammatical, word or spelling errors.
[2024-11-19] MEDS: diphenhydrAMINE 50 MG/ML 1 ML VIAL IVP PRN (14:36)
[2024-11-19 20:50] VITALS: BP 100/73; PULSE 81; TEMP 98.5
--- NOTE | 2024-11-20 01:00 | PN ---
PROGRESS NOTE DATE OF SERVICE: 11/17/2024 SUBJECTIVE: She is a white female, preop for left hand surgery. Discussed her renal function decreased. We are going to give her fluids overnight. Repeat CAT scan tonight when GFR is up near 50. She is high risk for renal failure from a CT guided with the risks as she has orthopedic doctors and needs a CAT scan with contrast of the wrist and the arm to rule out abscess. She is preop. She is very anxious, nervous. OBJECTIVE: CARDIOVASCULAR: S1, S2. LUNGS: Scattered coarse sounds. GI: Soft, nontender. HEMATOLOGY: Negative Homans. PSYCH: Fair mood and affect. ASSESSMENT AND PLAN: Preop cellulitis, abscess of the right hand with significant arm and hand edema. Prognosis guarded. Continue current treatment. IV antibiotics. Wait for surgical repair in the morning. MMSPEEDYL / IJN: [id number] /
== END 2024-11-20 01:00 | disposition other institution (70) ==
LOC: EC 22:28 → 4SSUR 11-17 02:35
PROVIDERS: ADMIT Family Medicine; ATTEND Family Medicine
DX: L03.114 Cellulitis of left upper limb (principal); L08.9 Local infection of the skin and subcutaneous tissue, unspecified; N18.30 Chronic kidney disease, stage 3 unspecified; F41.9 Anxiety disorder, unspecified; I25.2 Old myocardial infarction; Z76.5 Malingerer [conscious simulation]; Z86.711 Personal history of pulmonary embolism; Z95.0 Presence of cardiac pacemaker; Z95.2 Presence of prosthetic heart valve; Z79.899 Other long term (current) drug therapy; Z79.01 Long term (current) use of anticoagulants; Z79.52 Long term (current) use of systemic steroids; Z88.0 Allergy status to penicillin; Z88.1 Allergy status to other antibiotic agents; Z88.6 Allergy status to analgesic agent; Z88.5 Allergy status to narcotic agent; Z91.040 Latex allergy status
CPT/HCPCS: 96376 ×5; 96361 ×3; 96365; 96366 ×2; 96367; 96372; 96374 ×2; 96375 ×3; 99284; 36415; 94760; 93005; 80053 ×2; 80048; 85652; 83605; 83735; 85025 ×2; 86140; 81001; 87040; 87070 ×2; 87205 ×2; 87075 ×2; 73130; 93971; 73202 ×2; 11042; G0378 ×4; J2250; J2060; J1200 ×2; J2405 ×2; J1956 ×3; J3010; J1171 ×5; J2704; Q9967; J0878 ×3; J2371; J0665

== ENCOUNTER 2024-11-26 17:09 | Observation (INO) | payer MEDICARE ==
--- NOTE | 2024-11-26 18:47 | ED ---
General Adult HPI - General Source: patient, RN notes reviewed Mode of arrival: ambulatory Limitations: no limitations <Mahamed Lang - Last Filed: 11/26/24 18:45> - General Source: patient, RN notes reviewed, old records reviewed Mode of arrival: ambulatory Limitations: no limitations - History of Present Illness -: days(s) Consistency: constant Improves with: none Worsens with: none Associated Symptoms: denies other symptoms <Angel Mayes - Last Filed: 11/26/24 21:33> - General Chief complaint: Recheck/Abnormal Lab/Rx Stated complaint: Central line in neck Time Seen by Provider: 11/26/24 17:24 - History of Present Illness Initial comments: Quick note: This is a 59-year-old female with history including antiphospholipid antibody syndrome, AMI, PE, renal disease and seizures presenting from [place] for critical PT/INR. Patient states she was recently discharged from [facility] after being given both heparin and Eliquis, with her PT/INR being "238". Patient states she was advised to return to [facility] to have her central line removed, since it was placed at this hospital. Denies fever, chills, chest pain, dyspnea, dizziness, hematochezia, melena. (Mahamed Lang) This is a 59-year-old female to the ER for evaluation she does present today on heparin on Eliquis known coagulopathy with indwelling central line which she needs removed (Angel Mayes) - Related Data Home Medications Medication Instructions Recorded Confirmed Atorvastatin [Lipitor] 40 mg PO HS 09/24/21 11/26/24 Sertraline [Zoloft] 200 mg PO DAILY 09/24/21 11/26/24 Apixaban [Eliquis] 5 mg PO BID 05/29/22 11/26/24 busPIRone HCl [Buspar] 5 mg PO BID 06/11/22 11/26/24 Fludrocortisone [Florinef] 0.1 mg PO DAILY 09/20/22 11/26/24 Budesonide/Glycopyr/Formoterol 2 puff INHALATION RT-BID 12/26/23 11/26/24 [Breztri Aerosphere Inhaler] Gabapentin 600 mg PO TID 12/26/23 11/26/24 Ondansetron [Zofran] 4 mg PO TID PRN 12/26/23 11/26/24 HYDROcodone/APAP 7.5-325MG [[place] 1 tab PO Q6H PRN 04/06/24 11/26/24 7.5-325] Cyclobenzaprine [Flexeril] 5 mg PO TID PRN 06/18/24 11/26/24 Metoprolol Succinate (ER) [Toprol 50 mg PO DAILY 06/27/24 11/26/24 XL] Colchicine 0.6 mg PO DAILY PRN 09/20/24 11/26/24 Diphenhydramine 50mg/Ml 50 mg IM Q6H PRN 09/20/24 11/26/24 allopurinoL [Zyloprim] 300 mg PO DAILY 09/20/24 11/26/24 rOPINIRole HCL [Requip] 2 mg PO HS 11/17/24 11/26/24 ALPRAZolam [Xanax] 0.25 mg PO DIRECTED PRN 11/26/24 11/26/24 Bumetanide [BUMEX] 2 mg PO BID 11/26/24 11/26/24 Esomeprazole Magnesium [NexIUM] 20 mg PO DAILY 11/26/24 11/26/24 Minocycline HCl [Minocin] 100 mg PO BID 11/26/24 11/26/24 Naloxone HCl [Narcan] 4 mg NASAL ONCE PRN 11/26/24 11/26/24 Potassium Chloride ER [K-Dur 20] 20 meq PO DAILY 11/26/24 11/26/24 Previous Rx's Medication Instructions Recorded Ipratropium-Albuterol Nebulize 3 ml INHALATION RT-TID 1 Days #90 09/23/24 [Duoneb 0.5 mg-3 mg/3 ml Soln] each Acetaminophen Tab [Tylenol] 650 mg PO Q6HR PRN tab 10/24/24 Allergies Allergy/AdvReac Type Severity Reaction Status Date / Time Penicillins Allergy Severe Anaphylaxis Verified 11/26/24 21:03 vancomycin Allergy Severe Swelling Verified 11/26/24 21:03 in lips NSAIDS (Non-Steroidal Allergy Unknown pt has Verified 11/26/24 21:03 Anti-Inflamma clotting disorder and is to not take NSAIDS cefepime Allergy Swelling Verified 11/26/24 21:03 clindamycin Allergy Anaphylaxis Verified 11/26/24 21:03 Influenza Virus Vaccines Allergy Anaphylaxis Verified 11/26/24 21:03 latex Allergy Itching Verified 11/26/24 21:03 and swelling levofloxacin [From Levaquin] Allergy Rash/Hives Verified 11/26/24 21:03 morphine Allergy Anaphylaxis Verified 11/26/24 21:03 albuterol [From Ventolin HFA] AdvReac Rapid Verified 11/26/24 21:03 Heart Rate galcanezumab-gnlm AdvReac Confusion, Verified 11/26/24 21:03 [From Emgality Pen] increased blood pressure metoclopramide [From Reglan] AdvReac "felt like Verified 11/26/24 21:03 I needed to jump out of my skin" prochlorperazine AdvReac severe Verified 11/26/24 21:03 [From Compazine] anxiety Review of Systems ROS Other: All systems not noted in ROS Statement are negative. <Mahamed Lang - Last Filed: 11/26/24 18:45> ROS Other: All systems not noted in ROS Statement are negative. <Angel Mayes - Last Filed: 11/26/24 21:33> ROS Statement: Those systems with pertinent positive or pertinent negative responses have been documented in the HPI. Past Medical History Past Medical History: Blood Disorder, Myocardial Infarction ([place]), Pulmonary Embolus (PE), Renal Disease, Seizure Disorder Additional Past Medical History / Comment(s): Antiphospholipid antibody syndrome which causes clots and bleeding, multiple PEs, R renal artery embolism/now atrophic, CKD stage III, hypotension, hypokalemia especially w/stress, lupus, pyoderma grangrenosum, 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 Patient states past history of C-Diff from 03/2023. last seizure last night twitching, usually with migraines or electrolyte imbalance. has had massive bleeding from xarelto Last Myocardial Infarction Date:: 08/30/2018 History of Any Multi-Drug Resistant Organisms: C-DIFF Date of last positivie culture/infection: 2023 has had three times MDRO Source:: unk Past Surgical History: Back Surgery, Breast Surgery, Cardiac Valve Replacement, Section, Cholecystectomy, Heart Catheterization, Hysterectomy, Pacemaker Additional Past Surgical History / Comment(s): pacemaker d/t bradycardia/hypotension with last one place in 2013 in [place], [place], 3 lower back surgeries, bilateral breast reduction. 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. lamenectomy Past Anesthesia/Blood Transfusion Reactions: No Reported Reaction Additional Past Anesthesia/Blood Transfusion Reaction / Comment(s): blood transfusion no issues Type of Cardiac Device: Permanent Pacemaker, Unknown Device Placement Date:: 2012 Past Psychological History: Anxiety, PTSD Smoking Status: Never smoker Past Alcohol Use History: Rare Past Drug Use History: Marijuana - Past Family History Mother Additional Family Medical History / Comment(s): Mother at the age of 49 yrs after surgery for silicon breast implants with a leak that caused ARDS and DIC per pt (fibroid cysts) Father Family Medical History: Cancer, Hyperlipidemia, Hypertension Additional Family Medical History / Comment(s): Father is a colon cancer survivor. <Mahamed Lang - Last Filed: 11/26/24 18:45> General Exam Limitations: no limitations <Mahamed Lang - Crispin Filed: 11/26/24 18:45> General appearance: alert, in no apparent distress Head exam: Present: atraumatic, normocephalic, normal inspection Eye exam: Present: normal appearance, PERRL, EOMI. Absent: scleral icterus, conjunctival injection, periorbital swelling ENT exam: Present: normal exam, mucous membranes moist Neck exam: Present: normal inspection. Absent: tenderness, meningismus, lymphadenopathy Respiratory exam: Present: normal lung sounds bilaterally. Absent: respiratory distress, wheezes, rales, rhonchi, stridor Cardiovascular Exam: Present: regular rate, normal rhythm, normal heart sounds. Absent: systolic murmur, diastolic murmur, rubs, gallop, clicks GI/Abdominal exam: Present: soft, normal bowel sounds. Absent: distended, tenderness, guarding, rebound, rigid Extremities exam: Present: normal inspection, full ROM, normal capillary refill. Absent: tenderness, pedal edema, joint swelling, calf tenderness Back exam: Present: normal inspection Neurological exam: Present: alert, oriented X3, CN II-XII intact Psychiatric exam: Present: normal affect, normal mood Skin exam: Present: warm, dry, intact, normal color. Absent: rash <Angel Mayes - Last Filed: 11/26/24 21:33> - General Exam Comments Initial Comments: Visual Physical Exam Vital signs reviewed General: Well-appearing, nontoxic, no acute distress. Head: Normocephalic, atraumatic Eyes: PERRLA, EOMI ENT: Airway patent Chest: Nonlabored breathing Skin: No visual rash, normal skin tone Neuro: Alert and oriented 3 Musculoskeletal: No gross abnormalities (Mahamed Lang) Right IJ central line (Angel Mayes) Course <Angel Mayes - Last Filed: 11/26/24 21:33> Vital Signs 11/26/24 11/26/24 17:21 19:54 Temperature 98.3 F 98.3 F Pulse Rate 73 72 Respiratory 20 18 Rate Blood Pressure 152/75 137/86 O2 Sat by Pulse 100 100 Oximetry - Reevaluation(s) Reevaluation #1: 11/26/24 21:31 Medical records reviewed (Angel Mayes) Reevaluation #2: 11/26/24 21:31 Patient symptoms unchanged (Angel Mayes) Reevaluation #3: 11/26/24 21:32 Patient informed of results and questions answered (Angel Mayes) Reevaluation #4: Was pt. sent in by a medical professional or institution (, PA, CASSANDRA CONSULTANT, urgent care, hospital, or fpc...) When possible be specific @ -no Did you speak to anyone other than the patient for history (EMS, parent, family, police, friend...)? What history was obtained from this source @ -no Did you review nursing and triage notes (agree or disagree)? Why? @ -agree Are old charts reviewed (outside hosp., previous admission, EMS record, old EKG, old radiological studies, urgent care reports/EKG's, fpc records)? Repo rt findings @ -yes Differential Diagnosis (chest pain, altered mental status, abdominal pain women, abdominal pain men, vaginal bleeding, weakness, fever, dyspnea, syncope, headache, dizziness, GI bleed, back pain, seizure, CVA, palpatations, mental health, musculoskeletal)? @ -prior EKG interpreted by me (3pts min.). @ -yes X-rays interpreted by me (1pt min.). @ -yes negative for acute disease CT interpreted by me (1pt min.). @ -no U/S interpreted by me (1pt. min.). @ -no What testing was considered but not performed or refused? (CT, X-rays, U/S, labs)? Why? @ -none What meds were considered but not given or refused? Why? @ -none Did you discuss the management of the patient with other professionals (professionals i.e. DrMaria Teresa, PA, CASSANDRA CONSULTANT, lab, RT, psych nurse, social welfare administrator, freight breaker, te acher, assistant chief nursing officer, medical case manager)? Give summary @ -no Was smoking cessation discussed for >3mins.? @ -no Was critical care preformed (if so, how long)? @ -no Were there social determinants of health that impacted care today? How? (Homelessness, low income, unemployed, alcoholism, drug addiction, transportation, low edu. Level, literacy, decrease access to med. care, penitentiary, rehab)? @ -none Was there de-escalation of care discussed even if they declined (Discuss DNR or withdrawal of care, Hospice)? DNR status @ -no What co-morbidities impacted this encounter? (DM, HTN, Smoking, COPD, CAD, Cancer, CVA, ARF, Chemo, Hep., AIDS, mental health diagnosis, sleep apnea, morbid obesity)? @ -none Was patient admitted / discharged? Hospital course, mention meds given and route, prescriptions, significant lab abnormalities, going to OR and other pertinent info. @ - Undiagnosed new problem with uncertain prognosis? @ -no Drug Therapy requiring intensive monitoring for toxicity (Heparin, Nitro, Insulin, Cardizem)? @ -no Were any procedures done? @ -no Diagnosis/symptom? @ - Acute, or Chronic, or Acute on Chronic? @ -Acute Uncomplicated (without systemic symptoms) or Complicated (systemic symptoms)? @ -Complicated Side effects of treatment? @ -no Exacerbation, Progression, or Severe Exacerbation? @ -exacerbation Poses a threat to life or bodily function? How? (Chest pain, [place], [place], pneumonia, PE, COPD, DKA, ARF, appy, cholecystitis, CVA, Diverticulitis, Homicidal, Suicidal, threat to staff... and all critical care pts) @ -yes (Angel Mayes) Medical Decision Making <Mahamed Lang - Last Filed: 11/26/24 18:45> <Angel Mayes - Last Filed: 11/26/24 21:33> - Medical Decision Making I completed the quick note portion of this chart signed ARMINDA Varela (Mahamed Lang) 59 female to ER for evaluation, patient has indwelling central venous catheter, patient will be admitted for coagulopathy and need to have central venous catheter removed (Angel Mayes) Disposition <Mahamed Lang - Last Filed: 11/26/24 18:45> Is patient prescribed a controlled substance at d/c from ED?: No Time of Disposition: 21:30 <Angel Mayes - Last Filed: 11/26/24 21:33> Clinical Impression: Coagulopathy, Central line complication Disposition: ADMITTED IP TO THIS HOSP Condition: Fair Referrals: Franklin Hassan MD [Primary Care Provider] - 1-2 days
[2024-11-26] MEDS: droPERidol 2.5 MG/ML VIAL IVP ONE (20:47)
[2024-11-26] MEDS: HYDROmorphone 1 MG/ML 1 ML SYRINGE IVP STA (20:52)
[2024-11-26] MEDS: diphenhydrAMINE 50 MG/ML 1 ML VIAL IVP STA (20:54)
[2024-11-26] MEDS ORDERED: NALOXONE 0.4 MG/ML 1 ML VIAL IV PRN (21:29)
[2024-11-26 22:00] LABS: Basophils # (A) 0.03 10*3/uL (0.00-0.10); Basophils % (A) 0.6 %; Eosinophils # (A) 0.19 10*3/uL (0.04-0.35); Eosinophils % (A) 3.6 %; HCT 35.8 % (37.2-46.3); HGB 11.9 g/dL (12.0-15.0); Lymphocytes # (A) 0.86 10*3/uL (0.90-5.00); Lymphocytes % (A) 16.3 %; MCH 31.3 pg (27.0-32.0); MCHC 33.2 g/dL (32.0-37.0); MCV 94.2 fL (80.0-97.0); Monocytes # (A) 0.52 10*3/uL (0.20-1.00); Monocytes % (A) 9.8 %; Neutrophils # (A) 3.66 10*3/uL (1.80-7.70); Neutrophils % (A) 69.3 %; Platelet Count 254 10*3/uL (140-440); RBC 3.80 10*6/uL (4.10-5.20); RDW 14.3 % (11.5-14.5); WBC 5.28 10*3/uL (4.50-10.00)
[2024-11-26 22:17] LABS: ALT 33 U/L (4-34); African American GFR (CKD) 55 (>60 ml/min/1.73 sqM); Albumin 4.3 g/dL (3.5-5.0); Anion Gap 10 mmol/L; Blood Urea Nitrogen 22 mg/dL (7-17); Calcium 9.3 mg/dL (8.4-10.2); Carbon Dioxide 33 mmol/L (22-30); Chloride 95 mmol/L (98-107); Glucose 84 mg/dL (74-99); Non-African American GFR(CKD) 48 (>60 ml/min/1.73 sqM); Sodium 138 mmol/L (137-145); Total Protein 7.0 g/dL (6.3-8.2)
[2024-11-26 22:25] LABS: AST 64 U/L (14-36); Alkaline Phosphatase 82 U/L (38-126); Potassium 3.5 mmol/L (3.5-5.1)
[2024-11-26 22:30] LABS: INR 1.1 (<1.2); Partial Thromboplastin Time 20.8 sec (22.0-30.0); Prothrombin Time 11.7 sec (10.0-12.5)
[2024-11-27] MEDS: HYDROmorphone 1 MG/ML 1 ML SYRINGE IVP PRN (00:25)
[2024-11-27] MEDS: SODIUM CHLORIDE 0.9% 1,000 ML IV SCH (01:30)
[2024-11-27] MEDS: ONDANSETRON 4 MG/2 ML VIAL IVP PRN (03:08)
[2024-11-27] MEDS: diphenhydrAMINE 50 MG/ML 1 ML VIAL IVP PRN (03:09)
[2024-11-27 04:42] LABS: Basophils # (A) 0.03 10*3/uL (0.00-0.10); Basophils % (A) 0.5 %; Eosinophils # (A) 0.21 10*3/uL (0.04-0.35); Eosinophils % (A) 3.4 %; HCT 34.9 % (37.2-46.3); HGB 11.2 g/dL (12.0-15.0); Lymphocytes # (A) 0.95 10*3/uL (0.90-5.00); Lymphocytes % (A) 15.3 %; MCH 30.9 pg (27.0-32.0); MCHC 32.1 g/dL (32.0-37.0); MCV 96.1 fL (80.0-97.0); Monocytes # (A) 0.62 10*3/uL (0.20-1.00); Monocytes % (A) 10.0 %; Neutrophils # (A) 4.35 10*3/uL (1.80-7.70); Neutrophils % (A) 70.3 %; Platelet Count 243 10*3/uL (140-440); RBC 3.63 10*6/uL (4.10-5.20); RDW 14.3 % (11.5-14.5); WBC 6.19 10*3/uL (4.50-10.00)
[2024-11-27 04:59] LABS: INR 1.2 (<1.2); Prothrombin Time 12.8 sec (10.0-12.5)
[2024-11-27 05:14] LABS: ALT 33 U/L (4-34); AST 54 U/L (14-36); African American GFR (CKD) 51 (>60 ml/min/1.73 sqM); Albumin 3.9 g/dL (3.5-5.0); Alkaline Phosphatase 85 U/L (38-126); Anion Gap 8 mmol/L; Blood Urea Nitrogen 22 mg/dL (7-17); Calcium 9.2 mg/dL (8.4-10.2); Carbon Dioxide 37 mmol/L (22-30); Chloride 93 mmol/L (98-107); Glucose 107 mg/dL (74-99); Magnesium 1.9 mg/dL (1.6-2.3); Non-African American GFR(CKD) 44 (>60 ml/min/1.73 sqM); Sodium 138 mmol/L (137-145); Total Protein 6.5 g/dL (6.3-8.2)
[2024-11-27 05:16] LABS: Potassium 2.7 mmol/L (3.5-5.1)
[2024-11-27] MEDS ORDERED: NON FORMULARY DRUG (Naloxone Hcl [Narcan] 4 MG Each) NASAL PRN (11:05)
[2024-11-27] MEDS ORDERED: ONDANSETRON ODT 4 MG TAB PO PRN (11:05)
[2024-11-27] MEDS ORDERED: COLCHICINE 0.6 MG EACH PO PRN (11:05)
[2024-11-27] MEDS ORDERED: diphenhydrAMINE 50 MG/ML 1 ML VIAL IM PRN (11:05)
[2024-11-27] MEDS ORDERED: Potassium Replacement Protocol 1 EACH MISC MISCELLANE PRN (11:14)
[2024-11-27] MEDS: IPRATROPIUM-ALBUTEROL 3 ML NEB INHALATION SCH (11:21)
[2024-11-27] MEDS: CYCLOBENZAPRINE 5 MG TAB PO PRN (11:39)
[2024-11-27] MEDS: POTASSIUM CHLORIDE ER 20 MEQ TAB.ER PO SCH (11:39)
--- NOTE | 2024-11-27 15:05 | HP ---
HISTORY AND PHYSICAL SUBJECTIVE: A 59-year-old white female in the hospital for severe hypokalemia, potassium was 2.7, chronic wound care on her left internal thigh and on her right hand. She got out of the rehab to the hospital due to hand infection and they kept her on IV antibiotics. No surgery was given. They put her back on blood thinners. She came in for central line removal after being discharged from [facility]. They gave her heparin and Eliquis. She came here to get her PICC line removed, is noted to be severely hypokalemic. History of cardiomyopathy, have to get her off her Eliquis and then pull the catheter and placed on heparin protocol. HOME MEDICATIONS: Reviewed. ALLERGIES: Reviewed. PAST MEDICAL HISTORY: Blood disorder, myocardial infarction, pulmonary embolism, renal disease, seizure disorder, antiphospholipid syndrome, chronic kidney disease stage III, hypokalemia, hypotension, lupus, pyoderma gangrenosum, migraines, and history of C diff. PAST SURGICAL HISTORY: Back surgery, breast surgery, cardiac valve surgery, , cholecystectomy, heart catheterization, hysterectomy, and pacemaker. PHYSICAL EXAMINATION: VITAL SIGNS: Reviewed. Temperature 98.7, pulse 73, respiratory rate 20, blood pressure 130s to 150s over 70s to 80s, and O2 100% on room air. CARDIOVASCULAR: S1 and S2. LUNGS: Transmitted breath sounds. HEMATOLOGY: Negative Homans. EXTREMITIES: range of motion is better. PSYCH: Fair mood and affect. ASSESSMENT: PICC line insertion was to be removed status post hand cellulitis, severe hypokalemia secondary to over diuresis. We held her Lasix and replace her potassium. Check electrolytes in the morning. Prognosis guarded. She was given the wrong dose of Lasix too high of a dose down at [place] and will have to cut back to 0.5 of Bumex daily. Prognosis guarded. MMODL / IJN: [id number] /
[2024-11-27] MEDS: GABAPENTIN 300 MG CAP PO SCH (15:15)
[2024-11-27] MEDS: ALPRAZolam 0.25 MG TAB PO PRN (16:37)
--- NOTE | 2024-11-27 19:17 | P.CNOR ---
History of Present Illness - HPI Consult date: 11/27/24 Consult reason: other (Left hand wound) History of present illness: Patient is a 59-year-old female with a very complicated medical history who presented to [facility] ER today after being recently discharged from [facility]. Patient was at our facility as of last week, she had been evaluated by one of the orthopedic hand surgeons at [facility] for possible abscess to he r left index finger. During that visit, patient underwent a I&D procedure of the left index finger. Postoperatively there was concern for a pyoderma gangrenosum lesion, patient was unable to undergo further MRI testing to further evaluate the lesion due to her pacemaker at this facility, the orthopedic provider had recommended transfer to a tertiary care facility for more in-depth workup, this to include plastic surgery, rheumatology and dermatology workup. Patient was transferred out of the hospital on 11/19/2024. Today at bedside patient was very unhappy with the care that she received at [facility]. Patient had acentral line that was placed at our hospital last week, she was also discharged with this after leaving [facility] earlier today. There was concern with abnormal PT/INR, a PTT labs due to blood thinners that she had received. Patient states that she underwent no MRI of her hand while at [facility]. Patient underwent no surgical intervention at that time. Patient had a known wound VAC on the posterior aspect of her left leg near the knee for a previous I&D procedure that was done by our vascular team at [facility]. That wound VAC was removed at arrival, she states. Today at bedside patient is resting, she is very upset with regards to her current care and multiple health issues going on. Patient is known to our practice from previous lumbar surgery with Dr. San back in July 2023. Patient has had a hard time following up with her postoperative appointments due to multiple hospital visits in the last 3 to 6 months. Patient continues to have pain to the left first index finger. She also has a wound that had developed on the dorsum of the hand near the fifth metacarpal joint. Patient has multiple scars throughout the bilateral upper and lower extremities from previous lesions that have been operated on. The wound VAC was not present today on the posterior aspect of the left lower extremity, there is a wound with clean appearing edges. Patient admits to drainage from the left index finger wound. She admits to surrounding redness both proximal distal to the wound. Denies any numbness or tingling to the index finger at this time. Review of Systems Constitutional: Reports as per HPI Past Medical History Past Medical History: Blood Disorder, Myocardial Infarction ([place]), Pulmonary Embolus ([place]), Renal Disease, Seizure Disorder Additional Past Medical History / Comment(s): Antiphospholipid antibody syndrome which causes clots and bleeding, multiple PEs, R renal artery embolism/now atrophic, CKD stage III, hypotension, hypokalemia especially w/stress, lupus, pyoderma grangrenosum, 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 Patient states past history of C-Diff from 03/2023. pseudoseizures, usually with migraines or electrolyte imbalance. has had massive bleeding from xarelto Last Myocardial Infarction Date:: 08/30/2018 History of Any Multi-Drug Resistant Organisms: C-DIFF Year Discovered:: 2023 has had three times MDRO Source:: unk Past Surgical History: Back Surgery, Breast Surgery, Cardiac Valve Replacement, Section, Cholecystectomy, Heart Catheterization, Hysterectomy, Pacemaker Additional Past Surgical History / Comment(s): pacemaker d/t bradycardia/hypotension with last one place in 2013 in [place], [place], 3 lower back surgeries, bilateral breast reduction. 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. laminectomy Past Anesthesia/Blood Transfusion Reactions: No Reported Reaction Additional Past Anesthesia/Blood Transfusion Reaction / Comm: blood transfusion no issues Type of Cardiac Device: Permanent Pacemaker, Unknown Device Placement Date:: 2012 Past Psychological History: Anxiety, PTSD Additional Psychological History / Comment(s): Pt resides with her spouse who has dementia and PTSD Smoking Status: Never smoker Past Alcohol Use History: Rare Past Drug Use History: Marijuana Additional Drug Use History / Comment(s): Medical Marijuana use prn per pt. - Past Family History Mother Additional Family Medical History / Comment(s): Mother at the age of 49 yrs after surgery for silicon breast implants with a leak that caused ARDS and DIC per pt (fibroid cysts) Father Family Medical History: Cancer, Hyperlipidemia, Hypertension Additional Family Medical History / Comment(s): Father is a colon cancer survivor. Medications and Allergies Home Medications Medication Instructions Recorded Confirmed Type Atorvastatin [Lipitor] 40 mg PO HS 09/24/21 11/26/24 History Sertraline [Zoloft] 200 mg PO DAILY 09/24/21 11/26/24 History Apixaban [Eliquis] 5 mg PO BID 05/29/22 11/26/24 History busPIRone HCl [Buspar] 5 mg PO BID 06/11/22 11/26/24 History Fludrocortisone [Florinef] 0.1 mg PO DAILY 09/20/22 11/26/24 History Budesonide/Glycopyr/Formoterol 2 puff INHALATION RT-BID 12/26/23 11/26/24 History [Breztri Aerosphere Inhaler] Gabapentin 600 mg PO TID 12/26/23 11/26/24 History Ondansetron [Zofran] 4 mg PO TID PRN 12/26/23 11/26/24 History HYDROcodone/APAP 7.5-325MG [[place] 1 tab PO Q6H PRN 04/06/24 11/26/24 History 7.5-325] Cyclobenzaprine [Flexeril] 5 mg PO TID PRN 06/18/24 11/26/24 History Metoprolol Succinate (ER) [Toprol 50 mg PO DAILY 06/27/24 11/26/24 History XL] Colchicine 0.6 mg PO DAILY PRN 09/20/24 11/26/24 History Diphenhydramine 50mg/Ml 50 mg IM Q6H PRN 09/20/24 11/26/24 History allopurinoL [Zyloprim] 300 mg PO DAILY 09/20/24 11/26/24 History Ipratropium-Albuterol Nebulize 3 ml INHALATION RT-TID 1 Days #90 09/23/24 11/26/24 Rx [Duoneb 0.5 mg-3 mg/3 ml Soln] each Acetaminophen Tab [Tylenol] 650 mg PO Q6HR PRN tab 10/24/24 11/26/24 Rx rOPINIRole HCL [Requip] 2 mg PO HS 11/17/24 11/26/24 History ALPRAZolam [Xanax] 0.25 mg PO DIRECTED PRN 11/26/24 11/26/24 History Bumetanide [BUMEX] 2 mg PO BID 11/26/24 11/26/24 History Esomeprazole Magnesium [NexIUM] 20 mg PO DAILY 11/26/24 11/26/24 History Minocycline HCl [Minocin] 100 mg PO BID 11/26/24 11/26/24 History Naloxone HCl [Narcan] 4 mg NASAL ONCE PRN 11/26/24 11/26/24 History Potassium Chloride ER [K-Dur 20] 20 meq PO DAILY 11/26/24 11/26/24 History Fezolinetant [Veozah] 45 mg PO HS 11/27/24 11/27/24 History Allergies Allergy/AdvReac Type Severity Reaction Status Date / Time Penicillins Allergy Severe Anaphylaxis Verified 11/26/24 21:03 vancomycin Allergy Severe Swelling Verified 11/26/24 21:03 in lips NSAIDS (Non-Steroidal Allergy Unknown pt has Verified 11/26/24 21:03 Anti-Inflamma clotting disorder and is to not take NSAIDS cefepime Allergy Swelling Verified 11/26/24 21:03 clindamycin Allergy Anaphylaxis Verified 11/26/24 21:03 Influenza Virus Vaccines Allergy Anaphylaxis Verified 11/26/24 21:03 latex Allergy Itching Verified 11/26/24 21:03 and swelling levofloxacin [From Levaquin] Allergy Rash/Hives Verified 11/26/24 21:03 morphine Allergy Anaphylaxis Verified 11/26/24 21:03 albuterol [From Ventolin HFA] AdvReac Rapid Verified 11/26/24 21:03 Heart Rate galcanezumab-gnlm AdvReac Confusion, Verified 11/26/24 21:03 [From Emgality Pen] increased blood pressure metoclopramide [From Reglan] AdvReac "felt like Verified 11/26/24 21:03 I needed to jump out of my skin" prochlorperazine AdvReac severe Verified 11/26/24 21:03 [From Compazine] anxiety Physical Examination Left upper extremity: Wound present at the base of the left index finger on the radial aspect, there is scab formation noted, there is drainage present along the borders. There is erythema that surrounds the wound that does extend slightly proximally and distally past the wound. There is notable swelling also in this area. Patient also has a small wound noted on the dorsal aspect of that same hand near the fifth MCP joint, with minor erythema surrounding the borders. No active draina ge was visualized from that wound. Patient is able to wiggle all the fingers with no difficulty. Her sensation to light touch is intact throughout the extremity. Her radial /ulnar pulse are 2+ Results - Labs Labs: Abnormal Lab Results - Last 24 Hours (Table) 11/26/24 11/26/24 11/26/24 Range/Units 21:43 21:43 21:43 RBC 3.80 L (4.10-5.20) 10*6/uL Hgb 11.9 L (12.0-15.0) g/dL Hct 35.8 L (37.2-46.3) % Lymphocytes # 0.86 L (0.90-5.00) 10*3/uL PT (10.0-12.5) sec INR (<1.2) APTT 20.8 L (22.0-30.0) sec Potassium (3.5-5.1) mmol/L Chloride 95 L (98-107) mmol/L Carbon Dioxide 33 H (22-30) mmol/L BUN 22 H (7-17) mg/dL Creatinine 1.23 H (0.52-1.04) mg/dL Glucose (74-99) mg/dL AST 64 H (14-36) U/L 11/27/24 11/27/24 11/27/24 Range/Units 04:26 04:26 04:26 RBC 3.63 L (4.10-5.20) 10*6/uL Hgb 11.2 L (12.0-15.0) g/dL Hct 34.9 L (37.2-46.3) % Lymphocytes # (0.90-5.00) 10*3/uL PT 12.8 H (10.0-12.5) sec INR 1.2 H (<1.2) APTT (22.0-30.0) sec Potassium 2.7 L* (3.5-5.1) mmol/L Chloride 93 L (98-107) mmol/L Carbon Dioxide 37 H (22-30) mmol/L BUN 22 H (7-17) mg/dL Creatinine 1.32 H (0.52-1.04) mg/dL Glucose 107 H (74-99) mg/dL AST 54 H (14-36) U/L H & H 11/26/24 11/27/24 Range/Units 21:43 04:26 Hgb 11.9 L 11.2 L (12.0-15.0) g/dL Hct 35.8 L 34.9 L (37.2-46.3) % Coagulation 11/26/24 11/27/24 Range/Units 21:43 04:26 INR 1.1 1.2 H (<1.2) Result Diagrams: 11/27/24 04:26 11/27/24 17:25 Assessment and Plan Assessment: Left hand index finger wound Postoperative day #9 status post left hand index finger irrigation and debridement Multiple skin wounds including left hand, left lower extremity History of pyoderma gangrenosum Plan: I was able to discuss the case, this to include both physical exam findings and imaging studies with my attending Dr. San, recommending no emergent general orthopedic surgical intervention at this time Recommending patient be evaluated by orthopedic hand specialist, attempt can be made to contact the hand surgeon at [facility] that did the initial procedure for further recommendations Recommending patient follow-up in the outpatient setting with Dr. San in the next 7 to 10 days for evaluation of lumbar spine Please contact her service any further questions regarding this patient Time with Patient: Less than 30
[2024-11-27] MEDS: HYDROcodone/APAP 7.5-325MG 1 EACH TAB PO PRN (19:56)
[2024-11-27] MEDS: IPRATROPIUM 0.5 MG/2.5 ML NEBU INHALATION SCH (20:07)
[2024-11-27] MEDS: SYMBICORT 160-4.5 MCG INHALER INHALATION SCH (20:07)
[2024-11-27] MEDS ORDERED: ATORVASTATIN 40 MG TAB PO SCH (21:00)
[2024-11-27] MEDS: FEZOLINETANT 45 MG PO SCH (21:10)
--- NOTE | 2024-11-27 22:14 | P.CONS ---
History of Present Illness - Reason for Consult Consult date: 11/27/24 Left hand infection Requesting physician: Franklin Hassan - Chief Complaint Left index finger wound and pain x days - History of Present Illness Patient is a 59-year-old female with multiple comorbidities recently admitted this facility with a left index finger abscess in this patient was status post I&D on 11/18/2024 and did have a right IJ central line placement because of poor IV access patient was subsequently transferred to [facility] as per request of the orthopedic surgeon to be evaluated by the hand surgery patient mentioned nothing was done at that facility she received antibiotics in the IV subsequently has been discharged home on no antibiotics with the central line intact subsequently patient was advised to go to the ER by the home care nurse for removal of the central line patient denies having any fever since she left the hospital he seemed to be very upset about the care he has received available facility and especially dealing with the right IJ central line patient complaining of pain to the left index finger area to be sharp moderate in nature without radiation denies any foul-smelling drainage some nausea but no vomiting no abdominal pain or diarrhea on presentation to the hospital patient was afebrile and no fever have recorded subsequently patient was tachycardic not hypotensive or hypoxic patient did have a white count of 5.28. Ankle has been mildly elevated potassium is 2.7 repeat is 4.2 liver enzymes are normal patient was admitted to the hospital infectious disease was consulted regarding left hand infection Review of Systems Positive point and negatives has been mentioned in the HPI, complete review of systems was performed and all other systems are negative Past Medical History Past Medical History: Blood Disorder, Myocardial Infarction ([place]), Pulmonary Embolus (PE), Renal Disease, Seizure Disorder Additional Past Medical History / Comment(s): Antiphospholipid antibody syndrome which causes clots and bleeding, multiple PEs, R renal artery embolism/now atrophic, CKD stage III, hypotension, hypokalemia especially w/stress, lupus, pyoderma grangrenosum, decreased pituitary function pt states d/t clot, mi graines, chonic cervical/back pain, herniated discs, RLS, vertigo, lupus, valve replacement x2. Patient states past history of C-Diff from 03/2023. pseudoseizures, usually with migraines or electrolyte imbalance. has had massive bleeding from xarelto Last Myocardial Infarction Date:: 08/30/2018 History of Any Multi-Drug Resistant Organisms: C-DIFF Year Discovered:: 2023 has had three times MDRO Source:: unk Past Surgical History: Back Surgery, Breast Surgery, Cardiac Valve Replacement, Section, Cholecystectomy, Heart Catheterization, Hysterectomy, Pacemaker Additional Past Surgical History / Comment(s): pacemaker d/t bradycardia/hypo tension with last one place in 2013 in [place], [place], 3 lower back surgeries, bilateral breast reduction. 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. laminectomy Past Anesthesia/Blood Transfusion Reactions: No Reported Reaction Additional Past Anesthesia/Blood Transfusion Reaction / Comm: blood transfusion no issues Type of Cardiac Device: Permanent Pacemaker, Unknown Device Placement Date:: 2012 Past Psychological History: Anxiety, PTSD Additional Psychological History / Comment(s): Pt resides with her spouse who has dementia and PTSD Smoking Status: Never smoker Past Alcohol Use History: Rare Past Drug Use History: Marijuana Additional Drug Use History / Comment(s): Medical Marijuana use prn per pt. - Past Family History Mother Additional Family Medical History / Comment(s): Mother at the age of 49 yrs after surgery for silicon breast implants with a leak that caused ARDS and DIC per pt (fibroid cysts) Father Family Medical History: Cancer, Hyperlipidemia, Hypertension Additional Family Medical History / Comment(s): Father is a colon cancer survivor. Medications and Allergies Home Medications Medication Instructions Recorded Confirmed Type Atorvastatin [Lipitor] 40 mg PO HS 09/24/21 11/26/24 History Sertraline [Zoloft] 200 mg PO DAILY 09/24/21 11/26/24 History Apixaban [Eliquis] 5 mg PO BID 05/29/22 11/26/24 History busPIRone HCl [Buspar] 5 mg PO BID 06/11/22 11/26/24 History Fludrocortisone [Florinef] 0.1 mg PO DAILY 09/20/22 11/26/24 History Budesonide/Glycopyr/Formoterol 2 puff INHALATION RT-BID 12/26/23 11/26/24 History [Breztri Aerosphere Inhaler] Gabapentin 600 mg PO TID 12/26/23 11/26/24 History Ondansetron [Zofran] 4 mg PO TID PRN 12/26/23 11/26/24 History HYDROcodone/APAP 7.5-325MG [[place] 1 tab PO Q6H PRN 04/06/24 11/26/24 History 7.5-325] Cyclobenzaprine [Flexeril] 5 mg PO TID PRN 06/18/24 11/26/24 History Metoprolol Succinate (ER) [Toprol 50 mg PO DAILY 06/27/24 11/26/24 History XL] Colchicine 0.6 mg PO DAILY PRN 09/20/24 11/26/24 History Diphenhydramine 50mg/Ml 50 mg IM Q6H PRN 09/20/24 11/26/24 History allopurinoL [Zyloprim] 300 mg PO DAILY 09/20/24 11/26/24 History Ipratropium-Albuterol Nebulize 3 ml INHALATION RT-TID 1 Days #90 09/23/24 11/26/24 Rx [Duoneb 0.5 mg-3 mg/3 ml Soln] each Acetaminophen Tab [Tylenol] 650 mg PO Q6HR PRN tab 10/24/24 11/26/24 Rx rOPINIRole HCL [Requip] 2 mg PO HS 11/17/24 11/26/24 History ALPRAZolam [Xanax] 0.25 mg PO DIRECTED PRN 11/26/24 11/26/24 History Bumetanide [BUMEX] 2 mg PO BID 11/26/24 11/26/24 History Esomeprazole Magnesium [NexIUM] 20 mg PO DAILY 11/26/24 11/26/24 History Minocycline HCl [Minocin] 100 mg PO BID 11/26/24 11/26/24 History Naloxone HCl [Narcan] 4 mg NASAL ONCE PRN 11/26/24 11/26/24 History Potassium Chloride ER [K-Dur 20] 20 meq PO DAILY 11/26/24 11/26/24 History Fezolinetant [Veozah] 45 mg PO HS 11/27/24 11/27/24 History Allergies Allergy/AdvReac Type Severity Reaction Status Date / Time Penicillins Allergy Severe Anaphylaxis Verified 11/26/24 21:03 vancomycin Allergy Severe Swelling Verified 11/26/24 21:03 in lips NSAIDS (Non-Steroidal Allergy Unknown pt has Verified 11/26/24 21:03 Anti-Inflamma clotting disorder and is to not take NSAIDS cefepime Allergy Swelling Verified 11/26/24 21:03 clindamycin Allergy Anaphylaxis Verified 11/26/24 21:03 Influenza Virus Vaccines Allergy Anaphylaxis Verified 11/26/24 21:03 latex Allergy Itching Verified 11/26/24 21:03 and swelling levofloxacin [From Levaquin] Allergy Rash/Hives Verified 11/26/24 21:03 morphine Allergy Anaphylaxis Verified 11/26/24 21:03 albuterol [From Ventolin HFA] AdvReac Rapid Verified 11/26/24 21:03 Heart Rate galcanezumab-gnlm AdvReac Confusion, Verified 11/26/24 21:03 [From Emgality Pen] increased blood pressure metoclopramide [From Reglan] AdvReac "felt like Verified 11/26/24 21:03 I needed to jump out of my skin" prochlorperazine AdvReac severe Verified 11/26/24 21:03 [From Compazine] anxiety Physical Exam Vitals: Vital Signs Temp Pulse Pulse Resp BP BP Pulse Ox 11/27/24 12:23 100 16 133/61 91 L 11/27/24 07: 98.5 F 99 16 122/77 91 L 11/27/24 02:44 98.0 F 78 20 138/83 99 11/27/24 02:12 74 16 126/65 98 11/26/24 23:19 73 16 120/80 96 11/26/24 19:54 98.3 F 72 18 137/86 100 11/26/24 17:21 98.3 F 73 20 152/75 100 Intake and Output 11/26/24 11/27/24 11/27/24 22:59 06:59 14:59 Intake Total 580 480 Balance 580 480 Intake: Oral 580 480 Other: Voiding Method Toilet Weight 70.307 kg 70.307 kg GENERAL DESCRIPTION: Middle-age female lying in bed, no distress. No tachypnea or accessory muscle of respiration use. HEENT: Shows Pallor , no scleral icterus. Oral mucous membrane is dry. No pharyngeal erythema or thrush NECK: Trachea central, no thyromegaly. LUNGS: Unlabored breathing. Clear to auscultation anteriorly. No wheeze or crackle. HEART: S1, S2, regular rate and rhythm. No loud murmur ABDOMEN: Soft, no tenderness , guarding or rigidity, no organomegaly EXTREMITIES: Left index finger wound with some necrotic tissue swelling redness has decreased no foul-smelling drainage SKIN: No rash, no masses palpable. NEUROLOGICAL: The patient is awake, alert, oriented x3, mood and affect normal. Results CBC & Chem 7: 11/27/24 04:26 11/27/24 17:25 Labs: Abnormal Lab Results - Last 24 Hours (Table) 11/26/24 11/26/24 11/26/24 Range/Units 21:43 21:43 21:43 RBC 3.80 L (4.10-5.20) 10*6/uL Hgb 11.9 L (12.0-15.0) g/dL Hct 35.8 L (37.2-46.3) % Lymphocytes # 0.86 L (0.90-5.00) 10*3/uL PT (10.0-12.5) sec INR (<1.2) APTT 20.8 L (22.0-30.0) sec Potassium (3.5-5.1) mmol/L Chloride 95 L (98-107) mmol/L Carbon Dioxide 33 H (22-30) mmol/L BUN 22 H (7-17) mg/dL Creatinine 1.23 H (0.52-1.04) mg/dL Glucose (74-99) mg/dL AST 64 H (14-36) U/L 11/27/24 11/27/24 11/27/24 Range/Units 04:26 04:26 04:26 RBC 3.63 L (4.10-5.20) 10*6/uL Hgb 11.2 L (12.0-15.0) g/dL Hct 34.9 L (37.2-46.3) % Lymphocytes # (0.90-5.00) 10*3/uL PT 12.8 H (10.0-12.5) sec INR 1.2 H (<1.2) APTT (22.0-30.0) sec Potassium 2.7 L* (3.5-5.1) mmol/L Chloride 93 L (98-107) mmol/L Carbon Dioxide 37 H (22-30) mmol/L BUN 22 H (7-17) mg/dL Creatinine 1.32 H (0.52-1.04) mg/dL Glucose 107 H (74-99) mg/dL AST 54 H (14-36) U/L Assessment and Plan (1) Abscess of left index finger Current Visit: Yes Status: Acute Code(s): L02.512 - CUTANEOUS ABSCESS OF LEFT HAND SNOMED Code(s): 63763393264889430 (2) Allergy to multiple antibiotics Current Visit: No Status: Acute Code(s): Z88.1 - ALLERGY STATUS TO OTHER ANTIBIOTIC AGENTS SNOMED Code(s): 703735837 Plan: 1patient presented to the hospital with nonhealing wound to the left index finger post I&D for an abscess on 11/18/2024 subsequently patient was transferred to [facility] for evaluation by hand surgery however per patient nothing was done. Try to obtain records from that facility in the meantime the patient did have necrotic wound to the left index finger and would benefit from surgical debridement for which orthopedic surgery will be consulted will see the patient last visit 2-patient with multiple antibiotic ALLERGIES that would limit the number of antibiotic safe to use 3-we will empirically start the patient on daptomycin while waiting for the workup to be completed Multiple question concern answered We will follow on clinical condition and cultures to further adjust medication if needed Thank you for this consultation we will follow the patient along with you Dictation was produced using [employer] dictation software. please excuse any grammatical, word or spelling errors. Time with Patient: Greater than 30
[2024-11-27] MEDS: APIXABAN 5 MG TAB PO SCH (23:36)
[2024-11-27] MEDS: NYSTATIN 100,000 UNIT/ML SUSP 500,000 UNIT/5 ML CUP PO SCH (23:38)
[2024-11-28 08:38] LABS: ALT 34 U/L (4-34); African American GFR (CKD) 61 (>60 ml/min/1.73 sqM); Albumin 3.7 g/dL (3.5-5.0); Albumin/Globulin Ratio 1.5; Anion Gap 9 mmol/L; Blood Urea Nitrogen 21 mg/dL (7-17); Calcium 9.5 mg/dL (8.4-10.2); Carbon Dioxide 30 mmol/L (22-30); Chloride 103 mmol/L (98-107); Globulin 2.4 g/dL; Glucose 90 mg/dL (74-99); Non-African American GFR(CKD) 53 (>60 ml/min/1.73 sqM); Sodium 142 mmol/L (137-145); Total Protein 6.1 g/dL (6.3-8.2)
[2024-11-28 08:43] LABS: AST 57 U/L (14-36); Alkaline Phosphatase 67 U/L (38-126); Potassium 4.3 mmol/L (3.5-5.1)
[2024-11-28] MEDS: SERTRALINE 100 MG TAB PO SCH (08:51)
[2024-11-28] MEDS: ENOXAPARIN 40 MG/0.4 ML SYRINGE SQ SCH (08:51)
[2024-11-28] MEDS: PANTOPRAZOLE 40 MG TABLET PO SCH (08:52)
[2024-11-28] MEDS: METOPROLOL SUCCINATE (ER) 50 MG TAB.ER.24H PO SCH (08:52)
[2024-11-28] MEDS: FLUDROCORTISONE 0.1 MG TAB PO SCH (08:52)
[2024-11-28] MEDS: POTASSIUM CHLORIDE ER 20 MEQ TAB.ER PO SCH (08:52)
[2024-11-28 10:24] LABS: Basophils # (A) 0.03 X 10*3/uL (0.00-0.10); Basophils % (A) 0.7 %; Eosinophils # (A) 0.15 X 10*3/uL (0.04-0.35); Eosinophils % (A) 3.6 %; HCT 37.3 % (37.2-46.3); HGB 11.5 g/dL (12.0-15.0); Immature Grans, Automated 0.20 %; Lymphocytes # (A) 0.92 X 10*3/uL (0.90-5.00); Lymphocytes % (A) 21.9 %; MCH 30.3 pg (27.0-32.0); MCHC 30.8 g/dL (32.0-37.0); MCV 98.4 FL (80.0-97.0); Monocytes # (A) 0.47 X 10*3/uL (0.20-1.00); Monocytes % (A) 11.2 %; NRBC Per 100 WBC 0 X 10*3/uL (0.00-0.01); Neutrophils # (A) 2.63 X 10*3/uL (1.80-7.70); Neutrophils % (A) 62.4 %; Platelet Count 233 X 10*3/uL (140-440); RBC 3.79 X 10*6/uL (4.10-5.20); RDW 14.6 % (11.5-14.5); WBC 4.21 X 10*3/uL (4.50-10.00)
[2024-11-28 12:37] VITALS: TEMP 98.5
[2024-11-28] MEDS: ACETAMINOPHEN TAB 325 MG TAB PO PRN (12:51)
--- NOTE | 2024-11-28 13:39 | P.PN ---
Subjective Progress Note Date: 11/28/24 Principal diagnosis: Reason for follow-up is left index finger infection Patient is a 59-year-old female with multiple comorbidities recently admitted this facility with a left index finger abscess in this patient was status post I&D on 11/18/2024 and did have a right IJ central line placement because of poor IV access patient was subsequently transferred to [facility] as per request of the orthopedic surgeon apparently nothing was done there and the patient was discharged home with a central line and no IV antibiotics. On today's evaluation that is 11/28/2024,the patient denies any fever or any chills, patient is breathing comfortably on room air, the patient denies chest pain shortness of breath and no significant cough, patient denies abdominal pain , no nausea vomiting or diarrhea. Pain to the right index finger is currently controlled no drainage. Patient white count is 4.1, creatinine is 1.13 Objective - Vital Signs Vital signs: Vital Signs Temp 98.5 F 11/28/24 12:36 Pulse 73 11/28/24 12:36 Resp 16 11/28/24 12:36 BP 128/82 11/28/24 12:36 Pulse Ox 97 11/28/24 12:36 FiO2 Intake & Output 11/27/24 11/28/24 11/28/24 18:59 06:59 18:59 Intake Total 2520 1080 Balance 2520 1080 Intake: Oral 2520 1080 Other: Voiding Method Toilet Toilet # Voids 2 2 # Bowel Movements 2 - Exam GENERAL DESCRIPTION: Middle female up in bed in no distress RESPIRATORY SYSTEM: Unlabored breathing EXTREMITIES: Left index finger did have a skin necrosis some surrounding swelling no significant redness or foul-smelling drainage - Labs CBC & Chem 7: 11/28/24 07:53 11/28/24 06:47 Labs: Abnormal Lab Results - Last 24 Hours (Table) 11/28/24 11/28/24 Range/Units 06:47 07:53 WBC 4.21 L (4.50-10.00) X 10*3/uL RBC 3.79 L (4.10-5.20) X 10*6/uL Hgb 11.5 L (12.0-15.0) g/dL MCV 98.4 H (80.0-97.0) FL MCHC 30.8 L (32.0-37.0) g/dL RDW 14.6 H (11.5-14.5) % BUN 21 H (7-17) mg/dL Creatinine 1.13 H (0.52-1.04) mg/dL AST 57 H (14-36) U/L Total Protein 6.1 L (6.3-8.2) g/dL Assessment and Plan (1) Abscess of left index finger Current Visit: Yes Status: Acute Code(s): L02.512 - CUTANEOUS ABSCESS OF LEFT HAND SNOMED Code(s): 65827695231212361 (2) Allergy to multiple antibiotics Current Visit: No Status: Acute Code(s): Z88.1 - ALLERGY STATUS TO OTHER ANTIBIOTIC AGENTS SNOMED Code(s): 622778000 Plan: 1patient presented to the hospital with nonhealing wound to the left index finger post I&D for an abscess on 11/18/2024 subsequently patient was transferred to [facility] for evaluation by hand surgery however per patient nothing was done. Try to obtain records from that facility in the meantime the patient did have necrotic wound to the left index finger and would benefit from surgical debridement for which orthopedic surgery will be consulted will see the patient last visit 2-patient with multiple antibiotic ALLERGIES that would limit the number of antibiotic safe to use 3-orthopedic surgery Dr. finch Was consulted who did the surgery on her on somehow it has been switched to Dr. San the PA saw the patient and mention no such intervention she need to have debridement of the necrotic skin I did review her culture from 11/18/2024 has been negative so far she is currently on empiric daptomycin however no plan for IV biotic on discharge recommend to discontinue central line at discharge and will consider short course of oral doxycycline, multiple question concern were answered and care discussed with admitting physician Dictation was produced using [employer] dictation software. please excuse any grammatical, word or spelling errors.
[2024-11-28 16:49] VITALS: PULSE 86
[2024-11-28 17:07] VITALS: BP 111/72; RESP 17
[2024-11-29] MEDS ORDERED: BUMETANIDE 0.5 MG TABLET PO SCH (09:00)
== END 2024-11-28 17:30 | disposition home or self-care (01) ==
LOC: EC 17:09 → 6NMEDSUR 21:30 → 5NMEDONC 11-27 02:00
PROVIDERS: ADMIT Family Medicine; ATTEND Family Medicine
DX: L02.512 Cutaneous abscess of left hand (principal); D68.9 Coagulation defect, unspecified; T82.9XXA Unspecified complication of cardiac and vascular prosthetic device, implant and graft, initial encounter; Y84.8 Other medical procedures as the cause of abnormal reaction of the patient, or of later complication, without mention of misadventure at the time of the procedure; E87.6 Hypokalemia; L88 Pyoderma gangrenosum; I25.2 Old myocardial infarction; N18.30 Chronic kidney disease, stage 3 unspecified; F41.9 Anxiety disorder, unspecified; Z95.0 Presence of cardiac pacemaker; Z95.2 Presence of prosthetic heart valve; Z86.711 Personal history of pulmonary embolism; Z79.01 Long term (current) use of anticoagulants; Z79.899 Other long term (current) drug therapy; Z79.52 Long term (current) use of systemic steroids; Z88.0 Allergy status to penicillin; Z88.1 Allergy status to other antibiotic agents; Z88.5 Allergy status to narcotic agent; Z88.6 Allergy status to analgesic agent; Z91.040 Latex allergy status
CPT/HCPCS: 96376 ×3; 96361 ×2; 96365; 96366 ×2; 96372; 96375 ×2; 99285; 94640 ×2; 80053 ×3; 83605; 83735; 84100; 84132; 85025 ×3; 85610 ×2; 85730; G0378 ×4; J1200 ×3; J2405 ×2; J1650; J1171 ×3; J0878 ×2; J1790